=== PATIENT | female | born 1945 | race Caucasian/White ===

== ENCOUNTER → 2017-10-31 07:03 | Outpatient (CLI) | payer MEDICARE, OTHER, SELFPAY ==
[2017-10-31 13:55] LABS: Alanine Aminotransferase 21 U/L (12-78); Alkaline Phosphatase 118 U/L (46-116); Aspartate Amino Transferase 21 U/L (15-37); Bilirubin,Direct 0.1 mg/dL (0.0-0.2); Bilirubin,Total 0.5 mg/dL (0.2-1.0); Chol/HDL Ratio 2.4 (1-3.5); Cholesterol 139 mg/dL (140-200); HDL Cholesterol 58 mg/dL (29-89); LDL Cholesterol 56 mg/dL (0-130); Total Protein,Serum 7.5 gm/dL (6.4-8.2); Triglycerides 127 mg/dL (30-200); VLDL Cholesterol 25 mg/dL (0-40)
== END ==
PROVIDERS: PCP Family Medicine; Visit Provider Internal Medicine Interventional Cardiology
DX: E78.00 Pure hypercholesterolemia, unspecified (principal)
CPT/HCPCS: 36415; 80061; 80076

== ENCOUNTER → 2018-05-06 13:32 | Outpatient (CLI) | payer MEDICARE, OTHER, SELFPAY | PROVIDERS: PCP Family Medicine; Visit Provider Internal Medicine Interventional Cardiology | DX: I10 Essential (primary) hypertension (principal); E78.00 Pure hypercholesterolemia, unspecified | CPT/HCPCS: 93005 ==

== ENCOUNTER → 2018-05-07 07:44 | Outpatient (CLI) | payer MEDICARE, OTHER, SELFPAY ==
[2018-05-07 10:18] LABS: Alanine Aminotransferase 23 U/L (12-78); Albumin Level 3.7 gm/dL (3.4-5.0); Alkaline Phosphatase 109 U/L (46-116); Aspartate Amino Transferase 14 U/L (15-37); Bilirubin,Direct 0.1 mg/dL (0.0-0.2); Bilirubin,Indirect 0.3 mg/dL (0.0-0.9); Bilirubin,Total 0.4 mg/dL (0.2-1.0); Chol/HDL Ratio 2.4 (1-3.5); Cholesterol 136 mg/dL (140-200); HDL Cholesterol 57 mg/dL (29-89); LDL Cholesterol 58 mg/dL (0-130); Total Protein,Serum 7.5 gm/dL (6.4-8.2); Triglycerides 105 mg/dL (30-200); VLDL Cholesterol 21 mg/dL (0-40)
== END ==
PROVIDERS: Visit Provider Internal Medicine Interventional Cardiology
DX: E78.00 Pure hypercholesterolemia, unspecified (principal); I10 Essential (primary) hypertension
CPT/HCPCS: 36415; 80061; 80076

== ENCOUNTER → 2018-06-03 16:00 | Outpatient (CLI) | payer MEDICARE, OTHER, SELFPAY ==
--- NOTE | 2018-06-03 16:08 | XR_ITS ---
XR shoulder RT min 2V HISTORY: ITS.REASON: RT SHOULDER PAIN ORDERING PHYSICIAN: Wyatt Torres MD PATIENT AGE: 72 years Comparison: None FINDINGS: There are mild osteoarthritic changes of the acromioclavicular joint with minimal periarticular calcification superiorly. Mild osteoarthritic changes also involve the glenohumeral joint inferiorly. There is some sclerosis along the lateral margin of the scapula not sufficient. No fracture or dislocation. 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
== END ==
PROVIDERS: PCP Family Medicine; Visit Provider Family Medicine
DX: M25.511 Pain in right shoulder (principal)
CPT/HCPCS: 73030

== ENCOUNTER 2018-06-10 08:56 | Outpatient (RCR) | payer MEDICARE, OTHER, SELFPAY ==
--- NOTE | 2018-06-10 09:53 | HMH.OTOPEV ---
OT Inpatient Evaluation Rehab OT Outpatient Eval Start: 06/10/18 09:36 Freq: Status: Active Protocol: Document 06/10/18 09:37 TFRY (Rec: 06/10/18 09:53 TFRY [id number]) Electronically Signed By Jolene Cho, OT 06/10/18 09:37 Outpatient Therapy Subjective History Subjective History BIMAL IS A 72 YEAR OLD RIGHT HANDED FEMALE REFERRED TO OCCUPATIONAL THERAPY FOR INJURY OF RIGHT SHOULDER. PATIENT REPORTS THAT SHE HAS HAD PAIN IN RIGHT SHOULDER SINCE LIFTING HEAVY OBJECTS APPROXIMATELY 1 MONTH AGO. PMHX: HEART ATTACK WITH 1 STENT PLACED. Chief Complaint Pain Symptom Type Sharp Dull Symptoms Relieved By OTC Meds Prescription Meds Symptoms Aggravated By Physical Activity Prior Functional Limitations None Current Functional Limitations Lifting Housework Dressing Recreation Activity Symptom Description Constant but Variable Level of pain today (0-10) 3 Pain scale - at its best (0-10) 1 Pain scale - at its worst (0-10) 10 Shoulder/Elbow Eval Shoulder Objective Measurements Palpation Tenderness tenderness shoulder exam standard right tenderness over the bicipital tendon right shoulder exam standard Shoulder Palpation Findings Tenderness Shoulder ROM Right Shoulder ROM Limitations Pain Shoulder Abduction Active Range of WFL Motion (degrees) Shoulder Abduction Passive Range of WFL Motion (degrees) Shoulder Flexion Active Range of Motion WFL (degrees) Query Text: Shoulder Flexion Passive Range of Motion WFL (degrees) Shoulder External Rotation Active Range 70 of Motion (degrees) Shoulder External Rotation Passive Range 70 of Motion (degrees) Shoulder Internal Rotation Active Range 5 of Motion (degrees) Shoulder Internal Rotation Passive Range 5 of Motion (degrees) pain with active ROM shoulder exam right standard pain with passive ROM shoulder exam right standard decreased ROM shoulder exam standard right Shoulder MMT Shoulder Abduction Strength Grade 4- Good- Shoulder Extension Strength Grade 3 Fair Shoulder Flexion Strength Grade 4- Good- Shoulder Horizontal Abduction Strength 4- Good- Grade Should
== END 2018-08-05 14:54 | disposition home or self-care (01) ==
LOC: OT 08:56
PROVIDERS: Family Provider Family Medicine; PCP Family Medicine; Visit Provider Family Medicine
DX: S49.91XD Unspecified injury of right shoulder and upper arm, subsequent encounter (principal)
CPT/HCPCS: 97033; 97110; 97165

== ENCOUNTER → 2018-11-13 07:04 | Outpatient (CLI) | payer MEDICARE, OTHER, SELFPAY ==
[2018-11-13 13:49] LABS: Alanine Aminotransferase 28 U/L (12-78); Albumin Level 3.5 gm/dL (3.4-5.0); Alkaline Phosphatase 100 U/L (46-116); Aspartate Amino Transferase 13 U/L (15-37); Bilirubin,Direct 0.1 mg/dL (0.0-0.2); Bilirubin,Indirect 0.3 mg/dL (0.0-0.9); Bilirubin,Total 0.4 mg/dL (0.2-1.0); Chol/HDL Ratio 2.2 (1-3.5); Cholesterol 157 mg/dL (140-200); HDL Cholesterol 73 mg/dL (29-89); LDL Cholesterol 66 mg/dL (0-130); Triglycerides 91 mg/dL (30-200); VLDL Cholesterol 18 mg/dL (0-40)
== END ==
PROVIDERS: PCP Family Medicine; Visit Provider Internal Medicine Interventional Cardiology
DX: E78.00 Pure hypercholesterolemia, unspecified (principal)
CPT/HCPCS: 36415; 80061; 80076

== ENCOUNTER → 2019-08-18 07:01 | Outpatient (CLI) | payer MEDICARE, OTHER, SELFPAY ==
[2019-08-18 14:23] LABS: Alanine Aminotransferase 20 U/L (12-78); Alkaline Phosphatase 64 U/L (46-116); Aspartate Amino Transferase 13 U/L (15-37); Bilirubin,Direct 0.1 mg/dL (0.0-0.2); Bilirubin,Indirect 0.4 mg/dL (0.0-0.9); Bilirubin,Total 0.5 mg/dL (0.2-1.0); Chol/HDL Ratio 1.7 (1-3.5); Cholesterol 163 mg/dL (140-200); HDL Cholesterol 94 mg/dL (29-89); LDL Cholesterol 48 mg/dL (0-130); Triglycerides 105 mg/dL (30-200); VLDL Cholesterol 21 mg/dL (0-40)
== END ==
PROVIDERS: PCP Family Medicine; Visit Provider Internal Medicine Interventional Cardiology
DX: E78.00 Pure hypercholesterolemia, unspecified (principal)
CPT/HCPCS: 36415; 80061; 80076

== ENCOUNTER → 2020-01-29 06:57 | Outpatient (CLI) | payer MEDICARE, OTHER, SELFPAY ==
--- NOTE | 2020-01-29 07:23 | ECG_ITS ---
APPROVED REPORT Exam: Resting ECG HR:73 bpm ECG Measurements Heart Rate 73 AXES IA 218 P 76 QRSd 76 QRS 83 QT 404 T 71 QTc 445 <Conclusion> Sinus rhythm with 1st degree AV block with occasional premature late r wave progression Abnormal ECG Electronically signed by : Vicente Mary, 01/31/2020 06:52:38
[2020-01-29 10:38] LABS: Bilirubin,Unconjugated 0.5 mg/dL (0.0-1.1)
[2020-01-29 10:39] LABS: Alanine Aminotransferase 16 U/L (12-78); Albumin Level 4.3 g/dl (3.5-5.0); Alkaline Phosphatase 59 U/L (38-126); Aspartate Amino Transferase 26 U/L (14-36); Bilirubin,Direct 0.2 mg/dl (0.0-0.4); Bilirubin,Indirect 0.5 mg/dL (0.0-0.9); Bilirubin,Total 0.7 mg/dl (0.2-1.3); Chol/HDL Ratio 1.6 (1-3.5); Cholesterol 163 mg/dl (140-200); HDL Cholesterol 104 mg/dl (40-60); Total Protein,Serum 6.9 g/dl (6.3-8.2); Triglycerides 105 mg/dl (30-150); VLDL Cholesterol 21 mg/dL (0-40)
[2020-01-29 10:50] LABS: Direct LDL Cholesterol 56.57 mg/dL (100-129)
== END ==
PROVIDERS: PCP Family Medicine; Visit Provider Internal Medicine Interventional Cardiology
DX: E78.00 Pure hypercholesterolemia, unspecified (principal); I10 Essential (primary) hypertension
CPT/HCPCS: 36415; 80061; 80076; 93005

== ENCOUNTER → 2020-07-16 07:01 | Outpatient (CLI) | payer MEDICARE, OTHER, SELFPAY ==
[2020-07-16 14:59] LABS: Alanine Aminotransferase 17 U/L (12-78); Albumin Level 4.1 g/dl (3.5-5.0); Alkaline Phosphatase 57 U/L (38-126); Aspartate Amino Transferase 27 U/L (14-36); Bilirubin,Direct 0.1 mg/dl (0.0-0.4); Bilirubin,Indirect 0.3 mg/dL (0.0-0.9); Bilirubin,Total 0.4 mg/dl (0.2-1.3); Bilirubin,Unconjugated 0.4 mg/dL (0.0-1.1); Total Protein,Serum 6.8 g/dl (6.3-8.2); Triglycerides 111 mg/dl (30-150); VLDL Cholesterol 22 mg/dL (0-40)
[2020-07-16 15:08] LABS: HDL Cholesterol 111 mg/dl (40-60)
[2020-07-16 15:10] LABS: Direct LDL Cholesterol 52.69 mg/dL (100-129)
[2020-07-16 19:57] LABS: Chol/HDL Ratio 1.6 (1-3.5); Cholesterol 174 mg/dl (140-200)
== END ==
PROVIDERS: Visit Provider Internal Medicine Interventional Cardiology
DX: E78.00 Pure hypercholesterolemia, unspecified (principal)
CPT/HCPCS: 36415; 80061; 80076

== ENCOUNTER → 2021-01-31 07:01 | Outpatient (CLI) | payer MEDICARE, OTHER, SELFPAY ==
[2021-01-31 14:04] LABS: Alanine Aminotransferase 15 U/L (12-78); Albumin Level 4.4 g/dl (3.5-5.0); Alkaline Phosphatase 61 U/L (38-126); Aspartate Amino Transferase 27 U/L (14-36); Bilirubin,Direct 0.2 mg/dl (0.0-0.4); Bilirubin,Indirect 0.4 mg/dL (0.0-0.9); Bilirubin,Total 0.6 mg/dl (0.2-1.3); Bilirubin,Unconjugated 0.5 mg/dL (0.0-1.1); Chol/HDL Ratio 1.6 (1-3.5); Cholesterol 175 mg/dl (140-200); HDL Cholesterol 109 mg/dl (40-60); Total Protein,Serum 6.8 g/dl (6.3-8.2); Triglycerides 90 mg/dl (30-150); VLDL Cholesterol 18 mg/dL (0-40)
[2021-01-31 14:16] LABS: Direct LDL Cholesterol 41.86 mg/dL (100-129)
== END ==
PROVIDERS: Visit Provider Internal Medicine Interventional Cardiology
DX: E78.00 Pure hypercholesterolemia, unspecified (principal)
CPT/HCPCS: 36415; 80061; 80076

== ENCOUNTER → 2021-08-29 06:58 | Outpatient (CLI) | payer MEDICARE, OTHER, SELFPAY ==
[2021-08-29 14:06] LABS: Alanine Aminotransferase 16 U/L (12-78); Albumin Level 4.2 g/dl (3.5-5.0); Alkaline Phosphatase 62 U/L (38-126); Aspartate Amino Transferase 27 U/L (14-36); Bilirubin,Direct 0.4 mg/dl (0.0-0.4); Bilirubin,Total 0.4 mg/dl (0.2-1.3); Chol/HDL Ratio 1.8 (1-3.5); Cholesterol 189 mg/dl (140-200); HDL Cholesterol 105 mg/dl (40-60); Total Protein,Serum 6.7 g/dl (6.3-8.2); Triglycerides 118 mg/dl (30-150); VLDL Cholesterol 24 mg/dL (0-40)
[2021-08-29 14:17] LABS: Direct LDL Cholesterol 57.74 mg/dL (100-129)
== END ==
PROVIDERS: Visit Provider Internal Medicine Interventional Cardiology
DX: E78.00 Pure hypercholesterolemia, unspecified (principal)
CPT/HCPCS: 36415; 80061; 80076

== ENCOUNTER → 2021-10-16 11:51 | Outpatient (CLI) | payer MEDICARE, OTHER, SELFPAY | PROVIDERS: PCP Family Medicine; Visit Provider Nurse Practitioner Family | DX: Z20.822 Contact with and (suspected) exposure to COVID-19 (principal) | CPT/HCPCS: C9803; U0003; U0005 ==

== ENCOUNTER 2021-11-13 09:56 | Emergency (ER) | payer MEDICARE, OTHER, SELFPAY ==
[2021-11-13 10:47] VITALS: BP 130/59; PULSE 72; RESP 16; TEMP 36.7; O2SAT 95; BMI 25.7
[2021-11-13 10:52] VITALS: BP 130/60; PULSE 84; RESP 16; TEMP 36.7; O2SAT 98
--- NOTE | 2021-11-13 10:53 | HMH.EDUTC ---
[facility] [place] Clinical Impression: Encounter for laboratory testing for COVID-19 virus Disposition: Home, Self-Care Condition on Discharge: Good Instructions: DI for COVID-19 (Suspected or Confirmed ), Preventing the Spread of Coronavirus Discharge Instructions Additional Instructions: *Monitor Temp, Over the counter Motrin or Tylenol as directed/as needed Tylenol every 4 hours and Motrin every 6 hours (as long as your family doctor has told you that you can take it) for fever or pain. and straight to ER if unable to lower temp less than 101.0 after medication given *Warm salt water gargles may help to soothe the throat *Throat Lozenges *Warm fluids like tea with honey may help to soothe the throat *Sleep elevated *Humidifier/Vaporizer Follow up IMMEDIATELY for new or worsening symptoms or no Noticeable improvement over the next 48-72 hours. 911 for difficulty breathing or swallowing You were tested for today for COVID19 your test result should be back in the next 24-48 hours, you may check your results on the [facility] [employer] [facility] Portal if you have trouble logging on you may call [employer] support for assistance You was given a handout with instructions for Self Quarantine and Self isolation for while you wait on test results and what to do if they are positive If you are positive the Health Dept will be contacting you also Make sure to take your Vitamins Vit. C Vit D and Zinc if you can take them Referrals: Wyatt Torres MD [Primary Care Provider] - As needed Medical Decision Making - Michael Inquiry Pt receiving controlled substance: No Michael was queried for this patient: No Vital Signs: 11/13/21 10:47 Temperature 98.0 F Temperature Source Oral Pulse Rate [Right] 72 Respiratory Rate 16 Blood Pressure [Right Arm] 130/59 L Blood Pressure Mean [Right Arm] 82 Blood Pressure Source [Right Arm] Automatic Cuff Blood Pressure Position [Right Arm] Sitting 02 Sat by Pulse Oximetry 95 Oxygen Delivery Method Room Air Orders (Tests/Meds): ORDERS Category Date Time Status Covid-19 Nasal PCR ([facility]) Routine Lab 11/13/21 10:50 Ordered [facility] [place] - General Stated complaint: covid test Time Seen by Provider: 11/13/21 10:53 Mode of Arrival: Ambulatory Source of Information: Patient Limitations: No Limitations Description of Symptoms (Recalled from Triage Doc. by RN): Exposed to covid on Sunday, requesting test, no symptoms HEENT Symptoms (Recalled from RN notes): No Resp Symptoms (Recalled from RN notes): No Skin Symptoms (Recalled from RN notes): No MS Symptoms (Recalled from RN notes): No Functional Status (Recalled from RN notes): na - History of Present Illness Provider Complaint: Patient state that she was exposed to COVID earlier this week and she wanted to get tested to be safe Denies symptoms - Related Data Home Medications Medication Instructions Recorded Confirmed Aspirin [Aspirin 81mg EC Tab] 81 mg PO DAILY 04/24/18 10/26/18 Ezetimibe [Zetia] 10 mg PO DAILY 04/24/18 10/26/18 Levothyroxine Sodium 112 mcg PO DAILY 04/24/18 10/26/18 [Levothyroxine 112mcg (0.112mg) Tab] Losartan/Hydrochlorothiazide 1 each PO DAILY 04/24/18 10/26/18 [Losartan-Hctz 100-12.5 mg Tab] Simvastatin 20 mg PO DAILY 04/24/18 10/26/18 Ticagrelor [Brilinta 60mg Tab] 60 mg PO DAILY 04/24/18 10/26/18 carvediloL [Carvedilol 12.5mg Tab] 12.5 mg PO BID 04/24/18 10/26/18 Previous Rx's Medication Instructions Recorded Ondansetron [Zofran 4mg ODT] 4 mg PO QIDP PRN #20 tab.rapdis 04/26/18 hydrOXYzine pamoate [Vistaril 25mg 25 mg PO Q8H PRN #21 cap 10/26/18 capsule] methylPREDNISolone [Medrol] 4 mg PO DIRECTED #1 tab.ds.pk 10/26/18 raNITIdine HCl [Zantac] 150 mg PO Q12 #14 tab 10/26/18 Allergies Allergy/AdvReac Type Severity Reaction Status Date / Time azithromycin [AZITHROMYCIN] Allergy Unknown Verified 04/24/18 05:18 clavulanic acid Allergy Unknown Verified 04/24/18 05:18 [From AUGMENTI
== END 2021-11-13 10:55 | disposition home or self-care (01) ==
PROVIDERS: Emergency Provider Nurse Practitioner; PCP Family Medicine
DX: Z20.822 Contact with and (suspected) exposure to COVID-19 (principal); E03.9 Hypothyroidism, unspecified; E78.5 Hyperlipidemia, unspecified; Z88.2 Allergy status to sulfonamides; Z88.1 Allergy status to other antibiotic agents; Z79.899 Other long term (current) drug therapy
CPT/HCPCS: G0463; 99202; C9803; U0003; U0005

== ENCOUNTER → 2022-05-02 07:02 | Outpatient (CLI) | payer MEDICARE, OTHER, SELFPAY ==
[2022-05-02 14:35] LABS: Alanine Aminotransferase 20 U/L (12-78); Alkaline Phosphatase 62 U/L (38-126); Aspartate Amino Transferase 28 U/L (14-36); Bilirubin,Indirect 0.3 mg/dL (0.0-0.9); Bilirubin,Total 0.3 mg/dl (0.2-1.3); Bilirubin,Unconjugated 0.6 mg/dL (0.0-1.1); Chol/HDL Ratio 1.9 (1-3.5); Cholesterol 185 mg/dl (140-200); HDL Cholesterol 99 mg/dl (40-60); Total Protein,Serum 6.4 g/dl (6.3-8.2); Triglycerides 118 mg/dl (30-150); VLDL Cholesterol 24 mg/dL (0-40)
[2022-05-02 14:46] LABS: Direct LDL Cholesterol 55.45 mg/dL (100-129)
== END ==
PROVIDERS: Visit Provider Internal Medicine Interventional Cardiology
DX: E78.00 Pure hypercholesterolemia, unspecified (principal)
CPT/HCPCS: 36415; 80061; 80076

== ENCOUNTER → 2022-05-09 15:03 | Outpatient (CLI) | payer MEDICARE, OTHER, SELFPAY ==
--- NOTE | 2022-05-09 15:08 | XR_ITS ---
FINAL REPORT CLINICAL HISTORY: Pain in right foot, LATERAL FOOT PAIN FINDINGS: RIGHT FOOT Three views of the right foot demonstrate a transverse nondisplaced fracture of the proximal 5th metatarsal. There is a questionable nondisplaced fracture of the proximal 4th metatarsal. There is moderate and severe degenerative change, worse involving the 1st MTP joint. There are hammertoes of 2nd 3rd and 4th digits. There is a plantar calcaneal spur. The soft tissues are unremarkable. IMPRESSION: 5th metatarsal fracture with a questionable 4th metatarsal fracture as described. Reviewed, Interpreted and Dictated by Byron Bishop III, MD Transcribed by Yue Gallo Authenticated and . [facility]
== END ==
PROVIDERS: PCP Family Medicine; Visit Provider Family Medicine
DX: M79.671 Pain in right foot (principal)
CPT/HCPCS: 73630

== ENCOUNTER → 2022-06-15 09:01 | Outpatient (CLI) | payer MEDICARE, OTHER, SELFPAY ==
--- NOTE | 2022-06-15 09:06 | XR_ITS ---
FINAL REPORT CLINICAL HISTORY: fracture evaluation COMPARISON: 05/09/2022. FINDINGS: AP, lateral and oblique views of the right foot were obtained and compared to prior exam. Again seen is a fracture at the base of the 5th metatarsal with only minimal interval healing. No additional fracture is identified. There is stable, multi joint degenerative disease. Hammertoe deformity is seen of the 2nd and 3rd toes. Soft tissues are without acute abnormality. IMPRESSION: Fracture of the base of the 5th metatarsal with only minimal interval healing. Reviewed, Interpreted and Dictated by Iwona Alvarenga MD Transcribed by Jazmin Escudero Authenticated and [facility]
== END ==
PROVIDERS: PCP Family Medicine; Visit Provider Podiatrist
DX: S92.901A Unspecified fracture of right foot, initial encounter for closed fracture (principal)
CPT/HCPCS: 73630

== ENCOUNTER 2022-06-19 09:00 | Outpatient (RCR) | payer MEDICARE, OTHER, SELFPAY ==
--- NOTE | 2022-06-13 10:36 | HMH.PTOPEV ---
PT Outpatient Evaluation Rehab PT Outpatient Evaluation Start: 06/13/22 08:59 Freq: Status: Active Protocol: Document 06/13/22 08:59 [id number] (Rec: 06/13/22 10:35 [id number] [id number]) Electronically Signed By Edward Garcia, PT 06/13/22 08:59 Outpatient Therapy Subjective History Subjective History Pt. is a 76 year old female who presents to [facility] Out[facility] in [place] for the initial evaluation this date( 06/13/22) w/ c's/o acute and constant R-sided cervical/ shldr. P!, stiffness, and ROM deficits of insidious onset 2 weeks ago. Pt. blames onset of current complaint d/t stress . Pt. reports dealing w/ a similar exacerbation 9 years ago when she had quit smoking, and blamed symptoms from stress at that time too. Pt. reports having a terrible weekend, but states this morning is the first time she woke up w/ improved intensity in symptoms. Pt. reports having some improvements in symptoms since taking her prescribed muscle relaxer, doing her exercises, and using her TENS and MHP ever since she saw Dr. Garcia. Pt. denies having numbness/ tingling into the RUE, denies having symptoms on the L-side. Pt. denies having any diagnostic imaging nor injections for current complaint. Pt. denies history of cancer(self), however, reports family history of breast cancer(mother). Pt. denies history of pacemaker, denies latex/adhesive tape allergy, denies diabetes, but reports medicational allergies to sulfa drugs and most anti-biotics. Current medications include Flexiril, Losartan, Zyrtec, Carvedilol,
== END 2022-08-07 09:14 | disposition home or self-care (01) ==
LOC: PT.CARL 09:00
PROVIDERS: PCP Family Medicine; Visit Provider Family Medicine
DX: M62.838 Other muscle spasm (principal); M54.2 Cervicalgia
CPT/HCPCS: 97010; 97014; 97110; 97163; G0283

== ENCOUNTER 2022-06-30 13:31 | Emergency (ER) | payer MEDICARE, OTHER, SELFPAY ==
[2022-06-30 14:30] VITALS: BP 157/87; PULSE 80; RESP 16; TEMP 37; O2SAT 97; BMI 24.2
--- NOTE | 2022-06-30 14:53 | EXP.UTC ---
Discharge Plan Disposition Patient Disposition: Home, Self-Care Condition: Good Prescriptions Prescriptions: New cefdinir 300 mg capsule 300 mg PO BID 20 Days Qty: 20 0RF No Action prednisone 5 mg tablet 5 mg PO hydroxychloroquine 200 mg tablet 200 mg PO cholecalciferol (vitamin D3) 1,250 mcg (50,000 unit) capsule 1,250 mcg PO WEEKLY Label Comments: TAKE 1 CAPSULE BY MOUTH ONCE A WEEK FOR 12 WEEKS losartan 100 mg tablet 100 mg PO DAILY Label Comments: TAKE 1 TABLET BY MOUTH ONCE DAILY hydrochlorothiazide 12.5 mg tablet 12.5 mg PO DAILY Label Comments: TAKE 1 TABLET BY MOUTH ONCE DAILY carvedilol 12.5 MG tablet 12.5 mg PO BID aspirin 81 MG tablet,delayed release (DR/EC) 81 mg PO DAILY simvastatin 20 MG tablet 20 mg PO DAILY levothyroxine 112 MCG tablet 112 mcg PO DAILY ezetimibe 10 MG tablet 10 mg PO DAILY ticagrelor 60 mg tablet 60 mg PO DAILY ranitidine HCl 150 MG tablet 150 mg PO Q12 Qty: 14 0RF hydroxyzine pamoate 25 MG capsule 25 mg PO Q8H PRN (Reason: Itching) Qty: 21 0RF Referrals Follow up/Referrals: Wyatt Torres MD [Primary Care Provider] - See instructions Activity Restrictions/Add. Instructions Additional Instructions/Restrictions: You have been tested for COVID19. Please isolate yourself as if you are positive until test results received. Current CDC guidelines are quarantine X 5 days from onset of symptoms, with an additional 5 days of mask wearing at all times. If you have difficulty breathing, signs of dehydration, etc please seek treatment at ER. Clinical Impressions Clinical Impression: Sinusitis Instructions Patient Instructions: DI for Sinusitis Discharge ED Provider: Janis Mendez [facility] [place] HPI General Stated complaint: Covid exposure, covid test Mode of Arrival: Ambulatory Source of Information: Patient Limitations: No Limitations Time Seen by Provider: 06/30/22 14:56 Description of Symptoms (Recalled from Triage Doc. by RN): pt here for covid test. exposed on sunday and sunday. symptoms include face hurting, sneezing, cough and began this am. HEENT Symptoms (Recalled from RN notes): Yes Resp Symptoms (Recalled from RN notes): Yes Skin Symptoms (Recalled from RN notes): No MS Symptoms (Recalled from RN notes): No Functional Status (Recalled from RN notes): n/a History of Present Illness Provider Complaint: Patient has had cough, sneezing, sinus pain and pressure X 2 days. History of allergies, frequent sinusitis but possibly exposed to COVID19 and would like to rule it out for sure. Onset (ago): day(s) (2) Relieving factors: none Exacerbating factors: none Associated symptoms: denies other symptoms Treatments prior to arrival: none Related Data Home Medications Medication Instructions Recorded Confirmed aspirin 81 mg tablet,delayed 81 mg PO DAILY heart health 04/24/18 06/15/22 release carvedilol 12.5 mg tablet 12.5 mg PO BID bp 04/24/18 06/15/22 ezetimibe 10 mg tablet 10 mg PO DAILY Cholesterol 04/24/18 06/15/22 levothyroxine 112 mcg tablet 112 mcg PO DAILY thyroid 04/24/18 06/15/22 simvastatin 20 mg tablet 20 mg PO DAILY Cholesterol 04/24/18 06/15/22 hydroxychloroquine 200 mg tablet 200 mg PO 05/11/22 06/15/22 prednisone 5 mg tablet 5 mg PO 05/11/22 06/15/22 ticagrelor 60 mg tablet 60 mg PO DAILY heart helath 05/11/22 06/15/22 cholecalciferol (vitamin D3) 1,250 1,250 mcg PO WEEKLY 06/15/22 06/15/22 mcg (50,000 unit) capsule hydrochlorothiazide 12.5 mg tablet 12.5 mg PO DAILY 06/15/22 06/15/22 losartan 100 mg tablet 100 mg PO DAILY 06/15/22 06/15/22 Previous Rx's Medication Instructions Recorded hydroxyzine pamoate 25 mg capsule 25 mg PO Q8H PRN Itching #21 caps 10/26/18 ranitidine HCl 150 mg tablet 150 mg PO Q12 #14 tabs 10/26/18 cefdinir 300 mg capsule 300 mg PO BID 20 days #20 caps 06/30/22 Allergies Allergy/AdvReac Type
[2022-06-30 15:25] VITALS: BP 157/87; PULSE 80; RESP 16; TEMP 37
== END 2022-06-30 15:26 | disposition home or self-care (01) ==
PROVIDERS: Emergency Provider Physician Assistant; PCP Family Medicine
DX: U07.1 COVID-19 (principal); J32.9 Chronic sinusitis, unspecified; Z86.16 Personal history of COVID-19; I10 Essential (primary) hypertension; I25.2 Old myocardial infarction; E78.5 Hyperlipidemia, unspecified; E89.0 Postprocedural hypothyroidism; M35.3 Polymyalgia rheumatica; Z79.1 Long term (current) use of non-steroidal anti-inflammatories (NSAID); Z79.52 Long term (current) use of systemic steroids; Z79.82 Long term (current) use of aspirin; Z79.899 Other long term (current) drug therapy; Z88.1 Allergy status to other antibiotic agents; Z88.2 Allergy status to sulfonamides; Z88.3 Allergy status to other anti-infective agents; Z88.5 Allergy status to narcotic agent; Z88.8 Allergy status to other drugs, medicaments and biological substances; Z87.891 Personal history of nicotine dependence; Z82.49 Family history of ischemic heart disease and other diseases of the circulatory system; Z80.9 Family history of malignant neoplasm, unspecified
CPT/HCPCS: 99213; C9803; G0463; U0003; U0005

== ENCOUNTER 2022-07-01 08:17 | Emergency (ER) | payer MEDICARE, OTHER, SELFPAY ==
[2022-07-01 08:25] VITALS: BP 131/71; PULSE 94; RESP 18; TEMP 37.9; O2SAT 95; BMI 22.7
[2022-07-01 08:27] VITALS: BMI 22.7
--- NOTE | 2022-07-01 08:41 | HMH.EDGENADL ---
Discharge Plan Disposition Patient Disposition: Home, Self-Care Condition: Fair Prescriptions Prescriptions: New acetaminophen 500 mg capsule 500 mg PO Q6H PRN (Reason: pain) Qty: 20 0RF No Action hydroxychloroquine 200 mg tablet 200 mg PO DAILY losartan 100 mg tablet 100 mg PO DAILY Label Comments: TAKE 1 TABLET BY MOUTH ONCE DAILY hydrochlorothiazide 12.5 mg tablet 12.5 mg PO DAILY Label Comments: TAKE 1 TABLET BY MOUTH ONCE DAILY carvedilol 12.5 MG tablet 12.5 mg PO BID aspirin 81 MG tablet,delayed release (DR/EC) 81 mg PO DAILY simvastatin 20 MG tablet 20 mg PO DAILY levothyroxine 112 MCG tablet 112 mcg PO DAILY ezetimibe 10 MG tablet 10 mg PO DAILY ticagrelor 60 mg tablet 60 mg PO DAILY hydroxyzine pamoate 25 MG capsule 25 mg PO Q8H PRN (Reason: Itching) Qty: 21 0RF potassium chloride 20 mEq tablet extended release 10 meq PO DAILY Referrals Follow up/Referrals: Wyatt Torres MD [Primary Care Provider] - See instructions Activity Restrictions/Add. Instructions Additional Instructions/Restrictions: You have been evaluated for weakness, diagnosed with COVID-19 and low potassium. Please take daily potassium replacement. Take tylenol for aches and fever. Follow up with your primary care doctor for symptom recheck. Return for any new or worsening symptoms. Clinical Impressions Clinical Impression: COVID-19, Hypokalemia Instructions Patient Instructions: DI for Hypokalemia, How to Care for Someone with COVID-19 Discharge ED Provider: Elda Kc Adult HPI General Chief complaint: Weakness Stated complaint: fever, weakness, diarrhea Time Seen by Provider: 07/01/22 08:20 Mode of Arrival: Ambulatory Source of Information: Patient Limitations: No Limitations Description of Symptoms (Recalled from ER Triage Doc. by RN): pt states she was exposed to someone with covid on , reports weakness, diarrhea, and sinus pressure this morning, states pt felt feverish last night History of Present Illness HPI narrative: 76-year-old female presenting to the emergency department with generalized weakness, diarrhea. Symptoms started yesterday. Throughout the day she felt somewhat unwell, body aches. [place] like she was flushing and had chills. checked her temperature and she did not have a fever. She had loose stools last night. No blood or mucus. This morning, felt worse. Feels generally weak, achy, fatigued. She was exposed to COVID-19 last week. She has received vaccinations. She denies headache, neck pain, cough, shortness of breath, abdominal pain, nausea, vomiting, rashes on her skin. No medications prior to arrival Related Data Home Medications Medication Instructions Recorded Confirmed aspirin 81 mg tablet,delayed 81 mg PO DAILY heart health 04/24/18 07/01/22 release carvedilol 12.5 mg tablet 12.5 mg PO BID bp 04/24/18 07/01/22 ezetimibe 10 mg tablet 10 mg PO DAILY Cholesterol 04/24/18 07/01/22 levothyroxine 112 mcg tablet 112 mcg PO DAILY thyroid 04/24/18 07/01/22 simvastatin 20 mg tablet 20 mg PO DAILY Cholesterol 04/24/18 07/01/22 hydroxychloroquine 200 mg tablet 200 mg PO DAILY gout 05/11/22 07/01/22 ticagrelor 60 mg tablet 60 mg PO DAILY heart helath 05/11/22 07/01/22 hydrochlorothiazide 12.5 mg tablet 12.5 mg PO DAILY fluid overload 06/15/22 07/01/22 losartan 100 mg tablet 100 mg PO DAILY blood pressure 06/15/22 07/01/22 potassium chloride 20 mEq 10 meq PO DAILY supllement 07/01/22 07/01/22 tablet,extended release Previous Rx's Medication Instructions Recorded hydroxyzine pamoate 25 mg capsule 25 mg PO Q8H PRN Itching #21 caps 10/26/18 acetaminophen 500 mg capsule 500 mg PO Q6H PRN pain #20 caps 07/01/22 Allergies Allergy/AdvReac Type Severity Reaction Status Date / Time azithromycin [AZITHROMYCIN] Allergy Unknown Verified 06/30/22 14:33 clavulanic
[2022-07-01 09:00] VITALS: BP 143/81; PULSE 86; O2SAT 94
--- NOTE | 2022-07-01 09:02 | ECG_ITS ---
APPROVED REPORT Exam: Resting ECG HR:94 bpm ECG Measurements Heart Rate 94 AXES NV 194 P 52 QRSd 88 QRS 29 QT 366 T 58 QTc 417 Conclusion SINUS RHYTHM WITH FREQUENT SUPRAVENTRICULAR PREMATURE COMPLEXES Old anteroseptal changes ABNORMAL ECG UNCONFIRMED REPORT Electronically signed by : Vicente Mary MD 07/02/2022 15:25:14
[2022-07-01 09:13] LABS: Basophils # 0.2 K/mm3 (0-0.2); Basophils % 1.1 % (0.1-2.0); Eosinophils # 0.1 K/mm3 (0.0-0.4); Eosinophils % 0.8 % (0.1-12.0); Hematocrit 47.1 % (37.0-47.0); Hemoglobin 15.9 g/dL (12.2-16.2); Lymphocytes # 0.7 K/mm3 (0.7-4.5); Lymphocytes % 4.4 % (10-50); Mean Corpuscular HGB Conc 33.7 g/dL (31.8-35.4); Mean Corpuscular Hemoglobin 34.5 pg (27.0-31.2); Mean Corpuscular Volume 102.3 fl (81-99); Mean Platelet Volume 8.1 fl (7.4-10.4); Monocytes # 0.7 K/mm3 (0.1-1.0); Monocytes % 5.1 % (1.7-9.3); Neutrophils % 88.7 % (37.0-80.0); Platelet Count 268 K/mm3 (142-424); Red Cell Distribution Width 12.6 % (11.5-17.5); White Blood Count 14.7 K/mm3 (4.8-10.8)
[2022-07-01 09:15] LABS: MANUAL DIFFERENTIAL MANUAL DIFFERENTIAL (MANUAL DIFF)
[2022-07-01 09:20] LABS: Alanine Aminotransferase 25 U/L (12-78); Albumin Level 4.6 g/dl (3.5-5.0); Albumin/Globulin Ratio 1.5 (1.1-1.8); Alkaline Phosphatase 85 U/L (38-126); Anion Gap 13.7 mEq/L (5-15); Aspartate Amino Transferase 40 U/L (14-36); Bilirubin,Total 0.5 mg/dl (0.2-1.3); Blood Urea Nitrogen 15 mg/dl (7-17); Calcium 8.9 mg/dl (8.4-10.2); Carbon Dioxide 26 mmol/L (22.0-30.0); Chloride 89 mmol/L (98-107); Creatinine Clearance Estimated 46 mL/min (50-200); Estimated Glomerular Filt Rate 48 ml/min (>60); GFR (African American) 59 ML/MIN (>60); Globulin 3.1 g/dL (1.3-3.2); Glucose 107 mg/dl (74-100); Sodium 126 mmol/L (136-145); Total Protein,Serum 7.7 g/dl (6.3-8.2)
[2022-07-01 09:22] LABS: Potassium 2.7 mmoL/L (3.5-5.1)
--- NOTE | 2022-07-01 09:22 | PC.NURSE ---
lab called with critical potassium of 2.7 dr dunlap aware
[2022-07-01 09:30] VITALS: BP 113/67; PULSE 91; O2SAT 93
[2022-07-01 09:56] LABS: Lymphocytes % 9 % (10-50); Macrocytosis 1+; Monocytes % 2 % (2-9); Neutrophils % 88 % (42-76); Platelet Estimate Normal; Total Cells Counted 100
[2022-07-01 10:00] VITALS: BP 108/65; PULSE 89; O2SAT 95
[2022-07-01 10:30] VITALS: BP 96/52; PULSE 98; O2SAT 94
--- NOTE | 2022-07-01 10:38 | PC.NURSE ---
Pt resting in bed with at bedside. No needs voiced at this time. Updated pt and .
[2022-07-01 11:05] VITALS: BP 93/56; PULSE 87; RESP 16; TEMP 36.9; O2SAT 94
== END 2022-07-01 11:10 | disposition home or self-care (01) ==
PROVIDERS: Emergency Provider Emergency Medicine; PCP Family Medicine
DX: U07.1 COVID-19 (principal); E87.6 Hypokalemia; E87.1 Hypo-osmolality and hyponatremia; I25.10 Atherosclerotic heart disease of native coronary artery without angina pectoris; I10 Essential (primary) hypertension
CPT/HCPCS: 80053; 85007; 85025; 93005

== ENCOUNTER 2022-07-01 18:38 | Observation (INO) | payer MEDICARE, OTHER, SELFPAY ==
--- NOTE | 2022-07-01 18:50 | XR_ITS ---
PROCEDURE INFORMATION: Exam: XR Chest Exam date and time: 07/01/2022 7:10 PM Age: 76 years old Clinical indication: Cough and other: Covid positive; Additional info: Cough, covid TECHNIQUE: Imaging protocol: Radiologic exam of the chest. Views: 1 view. COMPARISON: CR CXR2V XR chest 2V 10/26/2018 9:08 AM FINDINGS: Lungs: Hyperlucent changes are demonstrated. Increase in the lung volumes is demonstrated. Pleural spaces: Unremarkable. No pleural effusion. No pneumothorax. Heart/Mediastinum: Unremarkable. No cardiomegaly. Focal somewhat linear region of increased density superimposed upon the left heart border. Findings may correspond to regions of calcification. Diaphragm: There is flattening of the hemidiaphragms. Bones/joints: Unremarkable. IMPRESSION: Findings compatible with chronic obstructive pulmonary disease.
[2022-07-01 18:53] VITALS: BP 139/84; PULSE 87; RESP 16; TEMP 36.8; O2SAT 98; BMI 24.2
--- NOTE | 2022-07-01 18:53 | HMH.EDGENADL ---
Discharge Plan Disposition Patient Disposition: Admitted as Observation Condition: Fair Clinical Impressions Clinical Impression: COVID-19 Discharge ED Provider: Elda Kc Adult HPI General Chief complaint: Nausea/Vomiting/Diarrhea Stated complaint: covid+,fever,diarrhea,weakness Time Seen by Provider: 07/01/22 18:53 Mode of Arrival: Wheelchair Source of Information: Patient Limitations: No Limitations History of Present Illness HPI narrative: 76-year-old female presenting to the emergency department with nausea, vomiting, diarrhea, generalized malaise. She was diagnosed with COVID-19 earlier today. Went home with prescription for Zofran. When she got home started to feel much worse. She has been unable to keep down any food or liquid. She has multiple episodes of loose stooles, brownish diarrhea. Now feels too weak to stand or walk on her own. No chest pain. No cough or shortness of breath. No abdominal pain, dysuria Related Data Home Medications Medication Instructions Recorded Confirmed aspirin 81 mg tablet,delayed 81 mg PO DAILY heart health 04/24/18 07/01/22 release carvedilol 12.5 mg tablet 12.5 mg PO BID bp 04/24/18 07/01/22 ezetimibe 10 mg tablet 10 mg PO DAILY Cholesterol 04/24/18 07/01/22 levothyroxine 112 mcg tablet 112 mcg PO DAILY thyroid 04/24/18 07/01/22 simvastatin 20 mg tablet 20 mg PO DAILY Cholesterol 04/24/18 07/01/22 hydroxychloroquine 200 mg tablet 200 mg PO DAILY gout 05/11/22 07/01/22 ticagrelor 60 mg tablet 60 mg PO DAILY heart helath 05/11/22 07/01/22 hydrochlorothiazide 12.5 mg tablet 12.5 mg PO DAILY fluid overload 06/15/22 07/01/22 losartan 100 mg tablet 100 mg PO DAILY blood pressure 06/15/22 07/01/22 potassium chloride 20 mEq 10 meq PO DAILY supllement 07/01/22 07/01/22 tablet,extended release Previous Rx's Medication Instructions Recorded hydroxyzine pamoate 25 mg capsule 25 mg PO Q8H PRN Itching #21 caps 10/26/18 acetaminophen 500 mg capsule 500 mg PO Q6H PRN pain #20 caps 07/01/22 Allergies Allergy/AdvReac Type Severity Reaction Status Date / Time azithromycin [AZITHROMYCIN] Allergy Unknown Verified 06/30/22 14:33 clavulanic acid Allergy Unknown Verified 06/30/22 14:33 [From AUGMENTIN] codeine [CODEINE] Allergy Unknown Verified 06/30/22 14:33 [id number] Reductase Allergy Unknown Verified 06/30/22 14:33 Inhibitor [[id number] REDUCTASE INHIBITOR] Sulfa (Sulfonamide Allergy Unknown Verified 06/30/22 14:33 Antibiotics) [SULFA (SULFONAMIDE ANTIBIOTICS)] decongestants Allergy Uncoded 06/15/22 09:42 PFSH PFSH Medical History (Updated 07/01/22 @ 19:39 by Elda Kc DO) HLD (hyperlipidemia) Myocardial infarction Surgical History (Updated 06/15/22 @ 09:48 by Susannah Hammond CMA) History of hysterectomy History of tonsillectomy Family History (Updated 06/15/22 @ 09:48 by Susannah Hammond CMA) Other Cancer Heart attack Hypertension Social History Smoking Status: Never smoker alcohol intake: current current occupational status: retired Travel in the last 8 weeks: None ROS Obtained: Yes All systems reviewed & no additional complaints except as documented Constitutional Constitutional: Reports anorexia, Reports body ache, Reports chills, Reports fatigue, Reports fever(s) and Reports malaise ENT Ears, Nose, Mouth, and Throat: Denies dizziness, Denies throat swelling and Denies vertigo Cardiovascular Cardiovascular: Denies chest pain, Denies dyspnea and Denies palpitations Respiratory Respiratory: Denies cough and Denies dyspnea Gastrointestinal Gastrointestingal: Reports diarrhea, nausea and vomiting; Denies abdominal pain Genitourinary Female Genitourinary: Denies dysuria and Denies flank pain Musculoskeletal Musculoskeletal: Denies muscle cramps, Reports muscle weakness, Reports myalgias and Denies numbness Neurolog
--- NOTE | 2022-07-01 18:58 | PC.NURSE ---
RAD at BS
--- NOTE | 2022-07-01 19:01 | PC.NURSE ---
IV WOULD NOT DRAW FOR BLOOD , DR WALDEN AWARE WE ARE GONNA HOLD OFF CAUSE PT HAS ALREADY HAD ALL THE LABS TODAY DURING PREVIOUS VISIT
--- NOTE | 2022-07-01 19:35 | PC.NURSE ---
Dr. Melissa winn
--- NOTE | 2022-07-01 19:40 | PC.NURSE ---
speaking with Dr. Torres
--- NOTE | 2022-07-01 19:42 | PC.NURSE ---
supervisor knitting notified of pt admission and need for bed assignment
[2022-07-01 20:30] VITALS: BP 145/70; PULSE 87; RESP 16; TEMP 37.1; O2SAT 95
--- NOTE | 2022-07-01 20:31 | PC.NURSE ---
ATTEMPT TO CALL REPORT TO AGATHA SNIDER IN PT ROOM AND WILL CALL BACK. PT AWARE OF PLAN TO ADMIT. PT AWARE OF NEED FOR URINE SAMPLE.
[2022-07-01 20:35] VITALS: BP 145/70; PULSE 77; RESP 17; TEMP 37.1; O2SAT 99
--- NOTE | 2022-07-01 20:42 | PC.NURSE ---
Pt up to bathroom with assistance and use of wheelchair
[2022-07-01 20:47] VITALS: BP 146/73; PULSE 75; RESP 18; TEMP 37.2; O2SAT 96; BMI 24.0
--- NOTE | 2022-07-01 20:47 | PC.NURSE ---
P5T ARRIVED TO FLOOR VIA W/C @ 2044
[2022-07-01 21:00] VITALS: O2SAT 96
[2022-07-02] VITALS (7 sets, daily range): BP systolic 114–151; BP diastolic 58–76; PULSE 71–79; RESP 16–18; TEMP 36.6–37.1; O2SAT 94–98; BMI 21.5
--- NOTE | 2022-07-02 04:12 | PC.NURSE ---
pt up to bathroom numerous times with diarrhea, pt complains of nausea, no vomiting noted, pt is alert and oriented x4, VSS, 02 sats 94% on room air, pt denies soa, lungs cta, no other issues noted at this time, pt medicated with tylenol for complaints of chronic back pain
[2022-07-02 08:36] LABS: Anion Gap 9.7 mEq/L (5-15); Blood Urea Nitrogen 25 mg/dl (7-17); Calcium 7.9 mg/dl (8.4-10.2); Carbon Dioxide 23 mmol/L (22.0-30.0); Chloride 100 mmol/L (98-107); Creatinine Clearance Estimated 36 mL/min (50-200); Estimated Glomerular Filt Rate 40 ml/min (>60); GFR (African American) 48 ML/MIN (>60); Glucose 96 mg/dl (74-100); Sodium 130 mmol/L (136-145)
[2022-07-02 08:37] LABS: Potassium 2.7 mmoL/L (3.5-5.1)
--- NOTE | 2022-07-02 08:37 | EXP.PHA.VTE ---
[facility] Pharmacy VTE Monitoring Patient Demographics Admission date: 07/01/22 Report Date: 07/02/22 Time: 08:37 Patient Allergies azithromycin [AZITHROMYCIN] Allergy (Unknown, Verified 06/30/22 14:33) clavulanic acid [From AUGMENTIN] Allergy (Unknown, Verified 06/30/22 14:33) codeine [CODEINE] Allergy (Unknown, Verified 06/30/22 14:33) [id number] Reductase Inhibitor [[id number] REDUCTASE INHIBITOR] Allergy (Unknown, Verified 06/30/22 14:33) Sulfa (Sulfonamide Antibiotics) [SULFA (SULFONAMIDE ANTIBIOTICS)] Allergy (Unknown, Verified 06/30/22 14:33) decongestants Allergy (Uncoded 06/15/22 09:42) Height: 1.68 m Weight: 60.895 kg Current Active Problems (Updated 07/01/22 @ 22:58 by Kristi Bonilla RN) COVID-19 (Acute) VTE Risk Was VTE Risk Assessment Performed: Yes VTE Score: 3 VTE Risk Level: Low Risk Prophylaxis VTE Prophylaxis Ordered?: Yes Types of VTE Prophylaxis: TEDS Knee High Location of Applied Device: Bilateral Lower Extremeties
--- NOTE | 2022-07-02 09:23 | PC.NURSE ---
pt had 2 unmeasured voids
--- NOTE | 2022-07-02 10:26 | PC.NURSE ---
pt had 1 unmeasured void
--- NOTE | 2022-07-02 11:06 | PC.NURSE ---
meds taken to pharmacy to be packaged
--- NOTE | 2022-07-02 11:18 | HMH.PHAINT1 ---
Pharmacy Intervention Comments: MEDICATION RECONCILIATION COMPLETED ON PATIENT USING EXTERNAL FILL HISTORY FROM PHARMACY AND PATIENT'S OWN MEDS. -SHAMIR ESPINALD
[2022-07-02 11:50] LABS: Adenovirus F 40/41, stool Not Detected (NotDetected); Astrovirus Not Detected (NotDetected); Campylobacter Not Detected (NotDetected); Clostridium Difficile A/B, PCR Not Detected (NotDetected); Cryptosporidium Not Detected (NotDetected); Cyclospora Cayetanesis Not Detected (NotDetected); Entamoeba histolytica Not Detected (NotDetected); Enteroaggregative E coli Not Detected (NotDetected); Enteropathogenic E coli Not Detected (NotDetected); Enterotoxigenic E coli Not Detected (NotDetected); Giardia lamblia Not Detected (NotDetected); Norovirus Not Detected (NotDetected); Plesimonas Shigalloides, PCR Not Detected (NotDetected); Rotavirus A Not Detected (NotDetected); Salmonella, PCR Not Detected (NotDetected); Sapovirus Not Detected (NotDetected); Shiga-like toxin E coli Not Detected (NotDetected); Shigella Enterovasive E coli Not Detected (NotDetected); Vibrio Cholerae Not Detected (NotDetected); Vibrio, PCR Not Detected (NotDetected); Yersinia Entercolitica, PCR Not Detected (NotDetected)
--- NOTE | 2022-07-02 12:13 | EXP.HP ---
History of Present Illness *Admission Date: 07/01/22 *Reason for visit:: diarrhea and weakness *History of present illness: Ms. Culp is a 76-year-old white female with a history of coronary artery disease, hypothyroidism, and polymyalgia rheumatica who was exposed to COVID 5 days ago on Sunday. On she began developing some head congestion and sinus drainage and Sunday went to the [facility] to be checked for COVID. COVID swab was obtained but not resulted that day and she was empirically started on cefdinir. Later in the evening Sunday she developed fever, chills, and diarrhea. She presented to the ER yesterday morning with these complaints at which time she learned her COVID test from Sunday was positive. Additional lab work-up in the ER revealed a potassium of 2.7. She was treated and released but throughout the day yesterday she had worsening diarrhea and was incontinent. She had some nausea and vomiting and unable to tolerate oral intake. She returned to the ER last evening with these complaints and subsequently admitted. This morning, she feels her nausea has improved and she has had no vomiting. She however has had multiple loose stools through the night. She denies abdominal pain, cramping, or blood in her stool. [facility] Medical History (Updated 07/02/22 @ 12:36 by Wyatt Torres MD) Cataract Foot fracture, right History of back pain History of left heart catheterization HLD (hyperlipidemia) Hyperlipidemia Hypertension Hypothyroidism Myocardial infarction Polymyalgia rheumatica syndrome Surgical History (Updated 07/01/22 @ 22:58 by Kristi Bonilla RN) H/O thyroidectomy History of appendectomy History of hysterectomy History of tonsillectomy Previous back surgery Family History (Updated 06/15/22 @ 09:48 by Susannah Hammond CMA) Heart attack Cancer Hypertension Social History (Updated 07/01/22 @ 22:58 by Kristi Bonilla RN) Smoking Status: Former smoker years smoked: 40 how long ago did patient quit smokin years alcohol intake: never substance use type: denies use current occupational status: retired Travel in the last 8 weeks: None caregiver/support person: Yes () household members: spouse housing: house marital status: special marvin needs: No Review of Systems Constitutional Constitutional: Reports as per HPI and Denies headache(s) Eyes Eyes: Denies change in vision ENT Ears, Nose, Mouth, and Throat: Denies dizziness, Reports dry mouth, Denies headache(s), Denies nasal discharge and Denies sore throat *Cardiovascular Cardiovascular: Denies chest pain, Denies dyspnea and Denies leg edema *Respiratory Respiratory: Denies chest congestion, Denies cough and Denies dyspnea *Gastrointestinal Gastrointestinal: Reports as per HPI *Genitourinary Genitourinary: Denies dysuria and Denies urinary incontinence *Musculoskeletal Musculoskeletal: Reports arthralgias and Reports joint swelling Integumentary/Breasts Skin/Breast: Denies change in pigmentation and Denies rash *Neurologic Neurologic: Denies behavioral changes, Denies confusion, Denies dizziness and Denies headache(s) Psychiatric Psychiatric: Denies behavioral changes and Denies confusion Meds Home Medications and Allergies Home Medications Medication Instructions Recorded Confirmed Type aspirin 81 mg tablet,delayed 81 mg PO DAILY heart health 04/24/18 07/01/22 History release carvedilol 12.5 mg tablet 12.5 mg PO BID Hypertension 04/24/18 07/01/22 History ezetimibe 10 mg tablet 10 mg PO DAILY Cholesterol 04/24/18 07/01/22 History levothyroxine 112 mcg tablet 112 mcg PO DAILY thyroid 04/24/18 07/01/22 History simvastatin 20 mg tablet 20 mg PO HS Cholesterol 04/24/18 07/02/22 History hydroxychloroquine 200 mg tablet 200 mg PO DAILY Arthritis 05/11/22 07/01/22 History ticagrelor 60 mg tablet 60 mg PO BID PLATELET INHIBITOR 05/11/22 07/02/22 History hydrochlorothiazide 12.5 m
--- NOTE | 2022-07-02 15:37 | PC.NURSE ---
pt had 1 unmeasured void
[2022-07-02 22:52] LABS: Microscopic, Urine URINE MICROSCOPIC (MICROSCOPIC)
[2022-07-02 22:54] LABS: Appearance,Urine CLEAR (Clear); Bilirubin,Urine Negative (Negative); Blood, Urine 1+ (Negative); Color,Urine YELLOW (Yellow); Glucose,Urine (UA) Negative (Negative); Ketones,Urine Negative (Negative); Leukocyte Esterase,Urine Negative (Negative); Nitrate,Urine Negative (Negative); Protein,Urine Negative (Negative); Urobilinogen,Urine 0.2 EU/dl (0.2)
[2022-07-02 22:58] LABS: Amorphous Sediment,Urine Trace /lpf; Squamous Epithelial Cell,Urine Occasional #/hpf (0-5); WBC,Urine Occasional #/hpf (0-3)
[2022-07-03 03:14] VITALS: BP 139/65; PULSE 67; RESP 18; TEMP 36.7; O2SAT 95
[2022-07-03 05:00] VITALS: BMI 20.2
--- NOTE | 2022-07-03 05:26 | PC.NURSE ---
no changes from previous assessment, no diarrhea reported this shift, pt with no complaints of nausea this shift, pt alert and oriented x4, pt is ready to go home, VSS, no other issues or concerns noted at this time, no acute distress noted.
[2022-07-03 07:36] LABS: Anion Gap 8.8 mEq/L (5-15); Blood Urea Nitrogen 9 mg/dl (7-17); Calcium 7.8 mg/dl (8.4-10.2); Carbon Dioxide 23 mmol/L (22.0-30.0); Chloride 100 mmol/L (98-107); Creatinine Clearance Estimated 44 mL/min (50-200); Estimated Glomerular Filt Rate 82 ml/min (>60); GFR (African American) 99 ML/MIN (>60); Glucose 109 mg/dl (74-100); Sodium 129 mmol/L (136-145)
[2022-07-03 07:42] LABS: Potassium 2.8 mmoL/L (3.5-5.1)
[2022-07-03 08:00] VITALS: BP 141/80; PULSE 72; RESP 16; TEMP 36.5; O2SAT 97
--- NOTE | 2022-07-03 18:35 | P.PN_ITS ---
Subjective *Date: 07/03/22 *Time: 08:30 Interval history: She is feeling much better. She has had no diarrhea since late yesterday afternoon. Denies abdominal pain. She is eating some but not back to normal yet. She is eager to go home. Exam Data for Last 24 hours Vital signs and Labs for Last 24 Hours: Temp Pulse Resp BP Pulse Ox 97.7 F 72 16 141/80 H 97 07/03/22 08:00 07/03/22 08:00 07/03/22 08:00 07/03/22 08:00 07/03/22 08:00 Laboratory Results - last 24 hr 07/02/22 22:44: Urine Color Yellow, Urine Appearance Clear, Urine pH 6.0, Ur Specific [place] 1.010, Urine Protein Negative, Urine Glucose (UA) Negative, Urine Ketones Negative, Urine Blood 1+, Urine Nitrate Negative, Urine Bilirubin Negative, Urine Urobilinogen 0.2, Ur Leukocyte Esterase Negative, Urine RBC 5- 10, Urine WBC Occasional, Ur Squamous Epith Cells Occasional, Amorphous Sediment Trace 07/03/22 07:18: Sodium 129 L, Potassium 2.8 L*, Chloride 100, Carbon Dioxide 23, Anion Gap 8.8, BUN 9 D, Creatinine 0.70 D, Estimated Creat Clear 44, Estimated GFR 82, Est GFR ( Amer) 99 D, Glucose 109 H, Calcium 7.8 L I & O for Last 24 hours: Intake & Output 07/01/22 07/02/22 07/03/22 07/04/22 11:59 11:59 11:59 11:59 Intake Total 956 / 956 1693 / 1693 Output Total 0 / 0 0 / 0 Balance 956 / 956 1693 / 1693 Weight 134 lb 4 oz 126 lb 1 oz Constitutional Comments: She appears in no distress. Lungs are clear to auscultation. Heart is regular. Abdomen is soft and nondistended with no unusual masses or tenderness. Extremities no edema Assessment and Plan *Assessment and plan (1) COVID-19: Status: Acute Category: Medical Code(s): U07.1 - COVID-19 (2) Dehydration: Status: Acute Category: Medical Code(s): E86.0 - Dehydration (3) Hypokalemia: Status: Acute Category: Medical Code(s): E87.6 - Hypokalemia (4) CAD (coronary artery disease): Status: Acute Category: Medical Code(s): I25.10 - Atherosclerotic heart disease of [place] coronary artery without angina pectoris (5) Hypertension: Status: Acute Category: Medical Code(s): I10 - Essential (primary) hypertension (6) Hypothyroidism: Status: Chronic Category: Medical Code(s): E03.9 - Hypothyroidism, unspecified (7) Polymyalgia rheumatica syndrome: Status: Acute Category: Medical Code(s): M35.3 - Polymyalgia rheumatica Assessment and plan all Dx Assessment and Plan All Dx:: He has symptoms much improved. She is stable for discharge.
--- NOTE | 2022-07-04 22:27 | EXP.DC.SUM ---
General Admission date:: 07/01/22 Discharge date: 07/03/22 HPI HPI HPI: Ms. Culp is a 76-year-old white female with a history of coronary artery disease, hypothyroidism, and polymyalgia rheumatica who was exposed to COVID 5 days ago on Sunday. On she began developing some head congestion and sinus drainage and Sunday went to the [facility] to be checked for COVID. COVID swab was obtained but not resulted that day and she was empirically started on cefdinir. Later in the evening Sunday she developed fever, chills, and diarrhea. She presented to the ER yesterday morning with these complaints at which time she learned her COVID test from Sunday was positive. Additional lab work-up in the ER revealed a potassium of 2.7. She was treated and released but throughout the day yesterday she had worsening diarrhea and was incontinent. She had some nausea and vomiting and unable to tolerate oral intake. She returned to the ER last evening with these complaints and subsequently admitted. This morning, she feels her nausea has improved and she has had no vomiting. She however has had multiple loose stools through the night. She denies abdominal pain, cramping, or blood in her stool. Hospital Course Hospital Course Hospital Course: The patient was admitted for IV fluid support and replacement of her potassium. A diarrhea panel was ordered to rule out other etiologies, but it appeared her GI symptoms were likely from COVID. By 07/03/2022 she was feeling much better. She had had no further diarrhea and denied any abdominal pain. She was eating and was eager to go home. Her potassium had improved slightly. She was stable to be discharged home with continued potassium supplementation. Exam Data for Last 24 hours Vital signs and Labs for Last 24 Hours: Temp Pulse Resp BP Pulse Ox 97.7 F 72 16 141/80 H 97 07/03/22 08:00 07/03/22 08:00 07/03/22 08:00 07/03/22 08:00 07/03/22 08:00 I & O for Last 24 hours: Intake & Output 07/02/22 07/03/22 07/04/22 07/05/22 11:59 11:59 11:59 11:59 Intake Total 956 / 956 1693 / 1693 Output Total 0 / 0 0 / 0 Balance 956 / 956 1693 / 1693 Weight 134 lb 4 oz 126 lb 1 oz Narrative: She appears in no distress.? Lungs are clear to auscultation.? Heart is regular.? Abdomen is soft and nondistended with no unusual masses or tenderness.? Extremities no edema DS: Diagnosis Discharge Diagnosis (1) COVID-19: Status: Inactive (2) Dehydration: Status: Resolved (3) Hypokalemia: Status: Acute (4) CAD (coronary artery disease): Status: Acute (5) Hypertension: Status: Acute (6) Hypothyroidism: Status: Chronic (7) Polymyalgia rheumatica syndrome: Status: Acute Meds Home Medications and Allergies Home Medications Medication Instructions Recorded Confirmed Type aspirin 81 mg tablet,delayed 81 mg PO DAILY heart health 04/24/18 07/01/22 History release carvedilol 12.5 mg tablet 12.5 mg PO BID Hypertension 04/24/18 07/01/22 History ezetimibe 10 mg tablet 10 mg PO DAILY Cholesterol 04/24/18 07/01/22 History levothyroxine 112 mcg tablet 112 mcg PO DAILY thyroid 04/24/18 07/01/22 History simvastatin 20 mg tablet 20 mg PO HS Cholesterol 04/24/18 07/02/22 History hydroxychloroquine 200 mg tablet 200 mg PO DAILY Arthritis 05/11/22 07/01/22 History ticagrelor 60 mg tablet 60 mg PO BID PLATELET INHIBITOR 05/11/22 07/02/22 History hydrochlorothiazide 12.5 mg tablet 12.5 mg PO DAILY Fluid 06/15/22 07/01/22 History losartan 100 mg tablet 100 mg PO DAILY Hypertension 06/15/22 07/01/22 History cetirizine 10 mg capsule 10 mg PO DAILY allergies 07/01/22 07/01/22 History prednisone 5 mg tablet 5 - 10 mg PO DIRECTED STEROID 07/01/22 07/02/22 History acetaminophen 500 mg capsule 500 mg PO Q6HP PRN Mild Pain 07/02/22 07/02/22 History (Scale Score 1-4) potassium chloride 20 mEq 20 meq PO DAILY Supplement #14 tabs 07/03/22 Rx tablet,extended r
--- NOTE | 2022-07-05 13:43 | CARE MANAGER ---
Contacted patient related to hospital discharge. She states she is still weak, but feeling a little better each day. She is aware of her follow up appointments. She denies questions or concerns at this time. KAMALA Patel
== END 2022-07-03 09:23 | disposition home or self-care (01) ==
LOC: ER 19:39 → 2ND 20:10
PROVIDERS: Admitting Provider Family Medicine; Emergency Provider Emergency Medicine; PCP Family Medicine; Visit Provider Family Medicine
DX: U07.1 COVID-19 (principal); I10 Essential (primary) hypertension; M35.3 Polymyalgia rheumatica; I25.10 Atherosclerotic heart disease of native coronary artery without angina pectoris; E03.9 Hypothyroidism, unspecified; I25.2 Old myocardial infarction; Z87.891 Personal history of nicotine dependence; Z79.899 Other long term (current) drug therapy; Z88.8 Allergy status to other drugs, medicaments and biological substances; E87.6 Hypokalemia; E86.0 Dehydration
CPT/HCPCS: G0378; 36415; 71045; 80048; 80053; 81001; 85007; 85025; 87506; 93005; 99283; 99285; J2405

== ENCOUNTER → 2022-07-11 09:44 | Outpatient (CLI) | payer MEDICARE, OTHER, SELFPAY ==
--- NOTE | 2022-07-11 09:48 | XR_ITS ---
FINAL REPORT CLINICAL HISTORY: pain, swelling COMPARISON: June 15, 2022 FINDINGS: Three views of the right foot were obtained. 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 Again seen is a transverse fracture through the base of the 5th metatarsal. There is no definite bridging callus formation. IMPRESSION: Persistent transverse fracture through the base of the 5th metatarsal. Reviewed, Interpreted and Dictated by Jomar Nguyen MD Transcribed by Kenji Hector Authenticated and [facility]
== END ==
PROVIDERS: PCP Family Medicine; Visit Provider Podiatrist
DX: R60.0 Localized edema (principal); S92.341A Displaced fracture of fourth metatarsal bone, right foot, initial encounter for closed fracture; S92.354D Nondisplaced fracture of fifth metatarsal bone, right foot, subsequent encounter for fracture with routine healing; T14.8XXA Other injury of unspecified body region, initial encounter
CPT/HCPCS: 73630

== ENCOUNTER 2022-09-19 23:15 | Emergency (ER) | payer MEDICARE, OTHER, SELFPAY ==
[2022-09-20] VITALS: BP 149/90; PULSE 83; O2SAT 97
[2022-09-20 00:06] VITALS: BP 149/90; PULSE 86; RESP 19; TEMP 36.6; O2SAT 98; BMI 24.2
[2022-09-20 00:14] VITALS: BMI 24.2
[2022-09-20 00:51] LABS: Coronavirus 19, PCR Not Detected (NotDetected); Influenza A, PCR Not Detected (NotDetected); Influenza B, PCR Not Detected (NotDetected)
[2022-09-20 00:53] LABS: Basophils # 0.1 K/mm3 (0-0.2); Basophils % 0.3 % (0.1-2.0); Eosinophils # 0.2 K/mm3 (0.0-0.4); Eosinophils % 0.8 % (0.1-12.0); Hematocrit 49.1 % (37.0-47.0); Hemoglobin 15.6 g/dL (12.2-16.2); Lymphocytes # 0.8 K/mm3 (0.7-4.5); Mean Corpuscular HGB Conc 31.8 g/dL (31.8-35.4); Mean Corpuscular Hemoglobin 34.3 pg (27.0-31.2); Mean Corpuscular Volume 107.8 fl (81-99); Mean Platelet Volume 8.4 fl (7.4-10.4); Monocytes # 0.7 K/mm3 (0.1-1.0); Monocytes % 3.4 % (1.7-9.3); Neutrophils # 18.2 K/mm3 (1.8-7.8); Neutrophils % 91.5 % (37.0-80.0); Platelet Count 348 K/mm3 (142-424); Red Blood Count 4.56 M/mm3 (4.20-5.40); Red Cell Distribution Width 12.8 % (11.5-17.5); White Blood Count 19.9 K/mm3 (4.8-10.8)
[2022-09-20 00:57] LABS: MANUAL DIFFERENTIAL MANUAL DIFFERENTIAL (MANUAL DIFF)
[2022-09-20 01:00] VITALS: BP 125/74; PULSE 80; O2SAT 97
[2022-09-20 01:11] LABS: Chloride 91 mmol/L (98-107)
[2022-09-20 01:12] LABS: Potassium 3.5 mmoL/L (3.5-5.1); Sodium 130 mmol/L (136-145)
--- NOTE | 2022-09-20 01:12 | CT_ITS ---
PROCEDURE INFORMATION: Exam: CT Abdomen And Pelvis With Contrast Exam date and time: 09/20/2022 1:42 AM Age: 76 years old Clinical indication: Abdominal pain; Generalized; Patient HX: Abd pain, nausea, vomiting, diarrhea; Additional info: N/v/d acute TECHNIQUE: Imaging protocol: Computed tomography of the abdomen and pelvis with contrast. Total images: 330 Radiation optimization: All CT scans at this facility use at least one of these dose optimization techniques: automated exposure control; mA and/or kV adjustment per patient size (includes targeted exams where dose is matched to clinical indication); or iterative reconstruction. Contrast material: ISOVUE; Contrast volume: 75 ml; Contrast route: IV; COMPARISON: CR XR CHEST PORTABLE 07/01/2022 7:10 PM FINDINGS: Lungs: Bibasilar mosaic attenuation of the pulmonary parenchyma, suggesting small airway infectious/inflammatory process. Coronary arteries: Calcific coronary artery disease is evident. Liver: Nonspecific low-density foci of the liver statistically favor benign processes, no further follow-up needed, measuring as large as 4 mm. Gallbladder and bile ducts: Normal. No calcified stones. No ductal dilation. Pancreas: Normal. No ductal dilation. Spleen: Incidental splenic granulomata are noted. Incidental splenule. Adrenal glands: Normal. No mass. Kidneys and ureters: Nonspecific low-density foci of the kidneys statistically favor benign cysts, no follow-up imaging is recommended, as large as 6 mm. Stomach and bowel: Prominent proximal loops of jejunum in the left abdomen are nonspecific but could indicate mild evidence of ileus or infectious/inflammatory enteritis. Prominent fluid in small bowel and colon suggestive of infectious/inflammatory enteritis/colitis. Thickening of the wall of much of the distal jejunum through mid ileum with mesenteric edema but no distension, favoring infectious/inflammatory enteritis. Appendix: The appendix is not identified but no evidence of appendicitis. Intraperitoneal space: See Stomach and bowel finding. Vasculature: Atherosclerosis is evident. Lymph nodes: Unremarkable. No enlarged lymph nodes. Urinary bladder: Unremarkable as visualized. Reproductive: Hysterectomy noted. Bones/joints: Osseous demineralization is evident. Moderate spinal degenerative changes. Facet joint degenerative changes are present. Multifocal central canal and neural foraminal stenosis, due to degeneration. Soft tissues: Unremarkable. Other findings: Incidental pelvic phlebolith formation. IMPRESSION: 1. Thickening of the wall of much of the distal jejunum through mid ileum with mesenteric edema but no distension, favoring infectious/inflammatory enteritis. 2. Prominent fluid in small bowel and colon suggestive of infectious/inflammatory enteritis/colitis. 3. Bibasilar mosaic attenuation of the pulmonary parenchyma, suggesting small airway infectious/inflammatory process. 4. No ureteral stone or hydronephrosis. COMMENTS: Consistent with the [employer]'s Incidental Findings Committee white paper (J Am Dejah Radiol 2018): Any incidental renal lesion less than 1 cm or classified as too small to characterize, or any incidental cystic renal lesion characterized as simple-appearing, is likely benign. No follow-up imaging is recommended for these lesions per consensus recommendations based on imaging criteria.
--- NOTE | 2022-09-20 01:12 | HMH.EDNVD ---
Discharge Plan Disposition Patient Disposition: Home, Self-Care Prescriptions Prescriptions: New ondansetron HCl 4 mg Tablet 4 mg PO Q8H PRN (Reason: Nausea) Qty: 20 0RF No Action hydroxychloroquine 200 mg tablet 200 mg PO DAILY losartan 100 mg tablet 100 mg PO DAILY Label Comments: TAKE 1 TABLET BY MOUTH ONCE DAILY hydrochlorothiazide 12.5 mg tablet 12.5 mg PO DAILY Label Comments: TAKE 1 TABLET BY MOUTH ONCE DAILY carvedilol 12.5 MG tablet 12.5 mg PO BID aspirin 81 MG tablet,delayed release (DR/EC) 81 mg PO DAILY simvastatin 20 MG tablet 20 mg PO HS levothyroxine 112 MCG tablet 112 mcg PO DAILY ezetimibe 10 MG tablet 10 mg PO DAILY ticagrelor 60 mg tablet 60 mg PO BID prednisone 5 mg tablet 5 - 10 mg PO DIRECTED Rx Instructions: 1 tablet every other day alternating with 2 tablets every other day cetirizine 10 mg Capsule 10 mg PO DAILY acetaminophen 500 mg capsule 500 mg PO Q6HP PRN (Reason: Mild Pain (Scale Score 1-4)) potassium chloride 20 mEq tablet extended release 20 meq PO DAILY Qty: 14 0RF Referrals Follow up/Referrals: Wyatt Torres MD [Primary Care Provider] - See instructions Clinical Impressions Clinical Impression: Enteritis Instructions Patient Instructions: DI for Diarrhea and Traveler's Diarrhea -- Adult, DI for Nausea -- Adult Discharge ED Provider: Lennox Ann Nausea/Vomiting/Diarrhea HPI General Chief complaint: Nausea/Vomiting/Diarrhea Stated complaint: vomiting Time Seen by Provider: 09/20/22 01:12 Mode of Arrival: Family Vehicle Source of Information: Patient, Spouse and Medical Record Limitations: No Limitations Description of Symptoms (Recalled from ER Triage Doc. by RN): Pt c/o nausea, vomiting, chills, and fatigue. States this started suddenly @ 1900 tonight. Denies any pain or SOA. Denies fever. Denies diarrhea. She ate leftover for dinner and symptoms began a few hrs after. She also reports she was treated for a sinus infection earlier this week and received abx injection and omnicef. States this resolved but now she is having n/v. History of Present Illness HPI Narrative: started today with chills and vomiting no diabetes - on omnicef and has loose stool after coming to ed complaint: nausea and diarrhea Onset (ago): hour(s) Description of Vomiting: watery Associated Abdominal Pain: No Severity: moderate Context: recent antibiotic use Associated symptoms: denies other symptoms Related Data Home Medications Medication Instructions Recorded Confirmed aspirin 81 mg tablet,delayed 81 mg PO DAILY heart health 04/24/18 07/11/22 release carvedilol 12.5 mg tablet 12.5 mg PO BID Hypertension 04/24/18 07/11/22 ezetimibe 10 mg tablet 10 mg PO DAILY Cholesterol 04/24/18 07/11/22 levothyroxine 112 mcg tablet 112 mcg PO DAILY thyroid 04/24/18 07/11/22 simvastatin 20 mg tablet 20 mg PO HS Cholesterol 04/24/18 07/11/22 hydroxychloroquine 200 mg tablet 200 mg PO DAILY Arthritis 05/11/22 07/11/22 ticagrelor 60 mg tablet 60 mg PO BID PLATELET INHIBITOR 05/11/22 07/11/22 hydrochlorothiazide 12.5 mg tablet 12.5 mg PO DAILY Fluid 06/15/22 07/11/22 losartan 100 mg tablet 100 mg PO DAILY Hypertension 06/15/22 07/11/22 cetirizine 10 mg capsule 10 mg PO DAILY allergies 07/01/22 07/11/22 prednisone 5 mg tablet 5 - 10 mg PO DIRECTED STEROID 07/01/22 07/11/22 acetaminophen 500 mg capsule 500 mg PO Q6HP PRN Mild Pain 07/02/22 07/11/22 (Scale Score 1-4) Previous Rx's Medication Instructions Recorded potassium chloride 20 mEq 20 meq PO DAILY Supplement #14 tabs 07/03/22 tablet,extended release ondansetron HCl 4 mg tablet 4 mg PO Q8H PRN Nausea #20 tabs 09/20/22 Allergies Allergy/AdvReac Type Severity Reaction Status Date / Time azithromycin [AZITHROMYCIN] Allergy Unknown Verified 07/11/22 10:38 clavulanic acid Allergy Unknown Verified 07/11/22 10:
[2022-09-20 01:14] LABS: Alanine Aminotransferase 22 U/L (12-78); Alkaline Phosphatase 82 U/L (38-126); Amylase 124 U/L (30-110); Anion Gap 19.5 mEq/L (5-15); Aspartate Amino Transferase 40 U/L (14-36); Bilirubin,Total 0.5 mg/dl (0.2-1.3); Blood Urea Nitrogen 18 mg/dl (7-17); Carbon Dioxide 23 mmol/L (22.0-30.0); Creatinine Clearance Estimated 44 mL/min (50-200); Estimated Glomerular Filt Rate 44 ml/min (>60); GFR (African American) 53 ML/MIN (>60)
[2022-09-20 01:15] LABS: Adenovirus F 40/41, stool Not Detected (NotDetected); Astrovirus Not Detected (NotDetected); Campylobacter Not Detected (NotDetected); Clostridium Difficile A/B, PCR Not Detected (NotDetected); Cryptosporidium Not Detected (NotDetected); Cyclospora Cayetanesis Not Detected (NotDetected); Entamoeba histolytica Not Detected (NotDetected); Enteroaggregative E coli Not Detected (NotDetected); Enteropathogenic E coli Not Detected (NotDetected); Enterotoxigenic E coli Not Detected (NotDetected); Giardia lamblia Not Detected (NotDetected); Norovirus Not Detected (NotDetected); Plesimonas Shigalloides, PCR Not Detected (NotDetected); Rotavirus A Not Detected (NotDetected); Salmonella, PCR Not Detected (NotDetected); Sapovirus Not Detected (NotDetected); Shiga-like toxin E coli Not Detected (NotDetected); Shigella Enterovasive E coli Not Detected (NotDetected); Vibrio Cholerae Not Detected (NotDetected); Vibrio, PCR Not Detected (NotDetected); Yersinia Entercolitica, PCR Not Detected (NotDetected)
[2022-09-20 01:15] LABS: Albumin Level 4.6 g/dl (3.5-5.0); Albumin/Globulin Ratio 1.6 (1.1-1.8); Calcium 9.6 mg/dl (8.4-10.2); Globulin 2.9 g/dL (1.3-3.2); Glucose 135 mg/dl (74-100); Lipase 181 U/L (23-300); Total Protein,Serum 7.5 g/dl (6.3-8.2)
--- NOTE | 2022-09-20 01:39 | PC.NURSE ---
Pt gone to RAD
--- NOTE | 2022-09-20 01:45 | PC.NURSE ---
Pt back from RAD
[2022-09-20 01:53] LABS: Eosinophils % 1 % (0-3); Lymphocytes % 7 % (10-50); Macrocytosis 2+; Monocytes % 4 % (2-9); Neutrophils % 88 % (42-76); Platelet Estimate Normal; Total Cells Counted 100
[2022-09-20 02:00] VITALS: BP 162/97; PULSE 97; O2SAT 97
[2022-09-20 03:06] LABS: C-Reactive Protein 4.6 mg/L (0-4)
--- NOTE | 2022-09-20 03:11 | PC.NURSE ---
called to check time remaining on diarrhea panel, 1 hr left
[2022-09-20 03:37] LABS: Erythrocyte Sedimentation Rate 7 mm/hr (0-30)
--- NOTE | 2022-09-20 05:26 | PC.NURSE ---
Pt continues to rest in bed at this time.
[2022-09-20 06:31] VITALS: BP 150/78; PULSE 60; RESP 17; TEMP 36.8; O2SAT 99
== END 2022-09-20 06:42 | disposition home or self-care (01) ==
PROVIDERS: Emergency Provider Emergency Medicine; PCP Family Medicine
DX: R11.2 Nausea with vomiting, unspecified (principal); R19.7 Diarrhea, unspecified; R53.82 Chronic fatigue, unspecified; Z86.16 Personal history of COVID-19; I10 Essential (primary) hypertension; E78.5 Hyperlipidemia, unspecified; I25.2 Old myocardial infarction; E89.0 Postprocedural hypothyroidism; M35.3 Polymyalgia rheumatica; Z79.1 Long term (current) use of non-steroidal anti-inflammatories (NSAID); H26.9 Unspecified cataract; Z79.52 Long term (current) use of systemic steroids; Z79.82 Long term (current) use of aspirin; Z79.899 Other long term (current) drug therapy; Z88.0 Allergy status to penicillin; Z88.1 Allergy status to other antibiotic agents; Z88.2 Allergy status to sulfonamides; Z88.3 Allergy status to other anti-infective agents; Z88.5 Allergy status to narcotic agent; Z88.8 Allergy status to other drugs, medicaments and biological substances; Z82.49 Family history of ischemic heart disease and other diseases of the circulatory system; Z80.9 Family history of malignant neoplasm, unspecified
CPT/HCPCS: 74177; 80053; 82150; 83690; 84145; 85007; 85025; 85651; 86140; 87507; 96361; 96374; 96375; 96376; 99285; C9803; J2405; Q9967; U0003; U0005

== ENCOUNTER → 2022-11-08 06:59 | Outpatient (CLI) | payer MEDICARE, OTHER, SELFPAY ==
[2022-11-08 09:10] LABS: Alanine Aminotransferase 19 U/L (12-78); Albumin Level 4.5 g/dl (3.5-5.0); Alkaline Phosphatase 68 U/L (38-126); Anion Gap 10.6 mEq/L (5-15); Aspartate Amino Transferase 29 U/L (14-36); Bilirubin,Direct 0.2 mg/dl (0.0-0.4); Bilirubin,Indirect 0.4 mg/dL (0.0-0.9); Bilirubin,Total 0.6 mg/dl (0.2-1.3); Bilirubin,Unconjugated 0.4 mg/dL (0.0-1.1); Blood Urea Nitrogen 12 mg/dl (7-17); Calcium 9.4 mg/dl (8.4-10.2); Carbon Dioxide 29 mmol/L (22.0-30.0); Chloride 95 mmol/L (98-107); Chol/HDL Ratio 1.9 (1-3.5); Cholesterol 193 mg/dl (140-200); Estimated Glomerular Filt Rate 54 ml/min (>60); GFR (African American) 65 ML/MIN (>60); Glucose 97 mg/dl (74-100); HDL Cholesterol 101 mg/dl (40-60); Potassium 3.6 mmoL/L (3.5-5.1); Sodium 131 mmol/L (136-145); Total Protein,Serum 6.9 g/dl (6.3-8.2); Triglycerides 98 mg/dl (30-150); VLDL Cholesterol 20 mg/dL (0-40)
== END ==
PROVIDERS: PCP Family Medicine; Visit Provider Internal Medicine Interventional Cardiology
DX: E78.00 Pure hypercholesterolemia, unspecified (principal)
CPT/HCPCS: 36415; 80048; 80061; 80076

== ENCOUNTER 2022-11-14 02:06 | Emergency (ER) | payer MEDICARE, OTHER, SELFPAY ==
[2022-11-14] VITALS (10 sets, daily range): BP systolic 120–161; BP diastolic 64–81; PULSE 90–103; RESP 18; TEMP 36.9; O2SAT 95–98; BMI 24.2
[2022-11-14 02:16] LABS: Basophils # 0.4 K/mm3 (0-0.2); Basophils % 1.9 % (0.1-2.0); Eosinophils # 0.2 K/mm3 (0.0-0.4); Eosinophils % 1.3 % (0.1-12.0); Hematocrit 49.1 % (37.0-47.0); Hemoglobin 16.2 g/dL (12.2-16.2); Lymphocytes # 0.7 K/mm3 (0.7-4.5); Mean Corpuscular Hemoglobin 34.4 pg (27.0-31.2); Mean Corpuscular Volume 104.4 fl (81-99); Monocytes # 0.5 K/mm3 (0.1-1.0); Monocytes % 2.9 % (1.7-9.3); Neutrophils # 16.1 K/mm3 (1.8-7.8); Neutrophils % 89.8 % (37.0-80.0); Platelet Count 302 K/mm3 (142-424); Red Cell Distribution Width 13.3 % (11.5-17.5); White Blood Count 17.9 K/mm3 (4.8-10.8)
[2022-11-14 02:17] LABS: MANUAL DIFFERENTIAL MANUAL DIFFERENTIAL (MANUAL DIFF)
[2022-11-14 02:21] LABS: Chloride 95 mmol/L (98-107)
[2022-11-14 02:22] LABS: Potassium 3.6 mmoL/L (3.5-5.1); Sodium 131 mmol/L (136-145)
[2022-11-14 02:24] LABS: Alanine Aminotransferase 28 U/L (12-78); Alkaline Phosphatase 70 U/L (38-126); Amylase 122 U/L (30-110); Anion Gap 15.6 mEq/L (5-15); Aspartate Amino Transferase 35 U/L (14-36); Bilirubin,Total 0.6 mg/dl (0.2-1.3); Blood Urea Nitrogen 20 mg/dl (7-17); Carbon Dioxide 24 mmol/L (22.0-30.0); Creatinine Clearance Estimated 44 mL/min (50-200); Estimated Glomerular Filt Rate 44 ml/min (>60); GFR (African American) 53 ML/MIN (>60); Glucose 139 mg/dl (74-100); Lipase 163 U/L (23-300)
[2022-11-14 02:25] LABS: Albumin Level 4.8 g/dl (3.5-5.0); Albumin/Globulin Ratio 1.6 (1.1-1.8); Calcium 9.3 mg/dl (8.4-10.2); Total Protein,Serum 7.8 g/dl (6.3-8.2)
[2022-11-14 02:35] LABS: Coronavirus 19, PCR Not Detected (NotDetected); Influenza A, PCR Not Detected (NotDetected); Influenza B, PCR Not Detected (NotDetected)
[2022-11-14 02:38] LABS: Lymphocytes % 10 % (10-50); Monocytes % 1 % (2-9); Neutrophils % 89 % (42-76); Platelet Estimate Normal; Total Cells Counted 100
[2022-11-14 02:39] LABS: Macrocytosis 1+
--- NOTE | 2022-11-14 03:30 | HMH.EDNVD ---
Discharge Plan Disposition Patient Disposition: Home, Self-Care Prescriptions Prescriptions: New ondansetron HCl 4 mg Tablet 4 mg PO Q8H PRN (Reason: Nausea) Qty: 20 0RF No Action hydroxychloroquine 200 mg tablet 200 mg PO DAILY losartan 100 mg tablet 100 mg PO DAILY Label Comments: TAKE 1 TABLET BY MOUTH ONCE DAILY hydrochlorothiazide 12.5 mg tablet 12.5 mg PO DAILY Label Comments: TAKE 1 TABLET BY MOUTH ONCE DAILY carvedilol 12.5 MG tablet 12.5 mg PO BID aspirin 81 MG tablet,delayed release (DR/EC) 81 mg PO DAILY simvastatin 20 MG tablet 20 mg PO HS levothyroxine 112 MCG tablet 112 mcg PO DAILY ezetimibe 10 MG tablet 10 mg PO DAILY ticagrelor 60 mg tablet 60 mg PO BID prednisone 5 mg tablet 5 - 10 mg PO DIRECTED Rx Instructions: 1 tablet every other day alternating with 2 tablets every other day cetirizine 10 mg Capsule 10 mg PO DAILY ondansetron HCl 4 mg Tablet 4 mg PO Q8H PRN (Reason: Nausea) Qty: 20 0RF Referrals Follow up/Referrals: Wyatt Torres MD [Primary Care Provider] - See instructions Clinical Impressions Clinical Impression: Enteritis, MARY (acute kidney injury) Instructions Patient Instructions: DI for Nausea -- Adult Discharge ED Provider: Lennox Ann Nausea/Vomiting/Diarrhea HPI General Chief complaint: Nausea/Vomiting/Diarrhea Stated complaint: upset stomach Time Seen by Provider: 11/14/22 02:15 Mode of Arrival: EMS Source of Information: Patient, Spouse and Medical Record Limitations: No Limitations Description of Symptoms (Recalled from ER Triage Doc. by RN): Per patient, she began having n/v/d at approx 2000. Denies any abdominal pain. Reports that she ate dinner at 1800. Denies any sick contacts. History of Present Illness HPI Narrative: pt with n/v and diarrhea after taking abx - started ester LEMOS complaint: nausea, vomiting and diarrhea Onset (ago): hour(s) Associated Abdominal Pain: No Severity: moderate Associated symptoms: denies other symptoms Related Data Home Medications Medication Instructions Recorded Confirmed aspirin 81 mg tablet,delayed 81 mg PO DAILY heart health 04/24/18 11/14/22 release carvedilol 12.5 mg tablet 12.5 mg PO BID Hypertension 04/24/18 11/14/22 ezetimibe 10 mg tablet 10 mg PO DAILY Cholesterol 04/24/18 11/14/22 levothyroxine 112 mcg tablet 112 mcg PO DAILY thyroid 04/24/18 11/14/22 simvastatin 20 mg tablet 20 mg PO HS Cholesterol 04/24/18 11/14/22 hydroxychloroquine 200 mg tablet 200 mg PO DAILY Arthritis 05/11/22 11/14/22 ticagrelor 60 mg tablet 60 mg PO BID PLATELET INHIBITOR 05/11/22 11/14/22 hydrochlorothiazide 12.5 mg tablet 12.5 mg PO DAILY Fluid 06/15/22 11/14/22 losartan 100 mg tablet 100 mg PO DAILY Hypertension 06/15/22 11/14/22 cetirizine 10 mg capsule 10 mg PO DAILY allergies 07/01/22 11/14/22 prednisone 5 mg tablet 5 - 10 mg PO DIRECTED STEROID 07/01/22 11/14/22 Previous Rx's Medication Instructions Recorded ondansetron HCl 4 mg tablet 4 mg PO Q8H PRN Nausea #20 tabs 09/20/22 ondansetron HCl 4 mg tablet 4 mg PO Q8H PRN Nausea #20 tabs 11/14/22 Allergies Allergy/AdvReac Type Severity Reaction Status Date / Time Sulfa (Sulfonamide Allergy Unknown Verified 07/11/22 10:38 Antibiotics) [SULFA (SULFONAMIDE ANTIBIOTICS)] [facility] Disclaimer: The information contained in this section may have been updated after the patient was seen, as this information can be updated by other users. Medical History Cataract Closed fracture of fourth metatarsal of right foot COVID-19 COVID-19 Foot fracture, right History of back pain History of left heart catheterization HLD (hyperlipidemia) Hyperlipidemia Hypertension Hypothyroidism Myocardial infarction Nondisplaced fracture of fifth right metatarsal bone with routine healing Polymya
--- NOTE | 2022-11-14 03:35 | CT_ITS ---
PROCEDURE INFORMATION: Exam: CT Abdomen And Pelvis With Contrast Exam date and time: 11/14/2022 3:56 AM Age: 76 years old Clinical indication: Nausea; Prior surgery; Surgery type: Hysterectomy, appendectomy; Additional info: Abdominal pain TECHNIQUE: Imaging protocol: Computed tomography of the abdomen and pelvis with contrast. Radiation optimization: All CT scans at this facility use at least one of these dose optimization techniques: automated exposure control; mA and/or kV adjustment per patient size (includes targeted exams where dose is matched to clinical indication); or iterative reconstruction. Contrast material: ISOVUE; Contrast volume: 75 ml; Contrast route: IV; COMPARISON: CT ABDOMEN PELVIS W CON 09/20/2022 1:42 AM FINDINGS: Heart: The heart is large in size. There are coronary artery calcifications. Liver: Normal. No mass. Gallbladder and bile ducts: Normal. No calcified stones. No ductal dilation. Pancreas: Normal. No ductal dilation. Spleen: There are granulomas of the spleen. Adrenal glands: Normal. No mass. Kidneys and ureters: There is a right kidney subcentimeter cyst. Stomach and bowel: Fluid in the colon. There is mild colonic wall thickening. Thickened appearance of the rectum as well. There are fluid-filled nondistended small bowel loops. Suggestion of slight small bowel wall thickening in the pelvis. No obstruction. Appendix: The appendix is not seen. Intraperitoneal space: Unremarkable. No free air. No significant fluid collection. Vasculature: Atherosclerosis. Lymph nodes: Unremarkable. No enlarged lymph nodes. Urinary bladder: Unremarkable as visualized. Reproductive: Uterus has been removed. Bones/joints: Degenerative changes of the spine. Soft tissues: Unremarkable. IMPRESSION: Findings consistent with proctocolitis and likely associated enteritis. COMMENTS: Consistent with the [employer]'s Incidental Findings Committee white paper (J Am Dejah Radiol 2018): Any incidental renal lesion less than 1 cm or classified as too small to characterize, or any incidental cystic renal lesion characterized as simple-appearing, is likely benign. No follow-up imaging is recommended for these lesions per consensus recommendations based on imaging criteria.
--- NOTE | 2022-11-14 03:35 | PC.NURSE ---
MD would like to add ct a/p with contrast, lactic, and inflammatory markers.
[2022-11-14 04:10] LABS: Lactic Acid 2.5 mmol/L (0.7-2.1)
[2022-11-14 04:25] LABS: Procalcitonin 0.979 ng/mL (0.0-2.0)
[2022-11-14 04:29] LABS: Erythrocyte Sedimentation Rate 12 mm/hr (0-30)
--- NOTE | 2022-11-14 07:22 | PC.NURSE ---
TANNER LEMOS at for update on POC
[2022-11-14 07:52] LABS: Microscopic, Urine URINE MICROSCOPIC (MICROSCOPIC)
[2022-11-14 07:53] LABS: Appearance,Urine CLEAR (Clear); Bilirubin,Urine Negative (Negative); Blood, Urine TRACE-L (Negative); Color,Urine YELLOW (Yellow); Glucose,Urine (UA) Negative (Negative); Ketones,Urine Negative (Negative); Leukocyte Esterase,Urine Negative (Negative); Nitrate,Urine Negative (Negative); PH,Urine 6.5 (5.0-8.5); Protein,Urine Negative (Negative); Specific Gravity, Urine <= 1.005 (1.005-1.030); Urobilinogen,Urine 0.2 EU/dl (0.2)
[2022-11-14 07:56] LABS: Reflex Lactic Add Lactic Reflex
[2022-11-14 08:04] LABS: Bacteria,Urine Trace /lpf; RBC,Urine Occasional #/hpf (0-3); Squamous Epithelial Cell,Urine Occasional #/hpf (0-5)
== END 2022-11-14 07:58 | disposition home or self-care (01) ==
PROVIDERS: Emergency Provider Emergency Medicine; PCP Family Medicine
DX: K52.9 Noninfective gastroenteritis and colitis, unspecified (principal); N17.9 Acute kidney failure, unspecified; Z86.16 Personal history of COVID-19; I10 Essential (primary) hypertension; E78.5 Hyperlipidemia, unspecified; Z83.3 Family history of diabetes mellitus; Z82.49 Family history of ischemic heart disease and other diseases of the circulatory system; Z80.9 Family history of malignant neoplasm, unspecified; Z87.891 Personal history of nicotine dependence; Z20.822 Contact with and (suspected) exposure to COVID-19
CPT/HCPCS: 74177; 80053; 81001; 82150; 83605; 83690; 84145; 85007; 85025; 85651; 86140; 96361; 96374; 96375; 99285; C9803; J2405; Q9967; U0003; U0005

== ENCOUNTER → 2023-03-26 10:25 | Outpatient (CLI) | payer MEDICARE, OTHER, SELFPAY ==
--- NOTE | 2023-03-26 10:30 | XR_ITS ---
FINAL REPORT CLINICAL HISTORY: foot pain FINDINGS: AP, oblique and lateral views of the right foot were obtained. There is no prior exam for comparison. There is no acute fracture or dislocation. There is degenerative change noted particularly at the 1st metatarsophalangeal joint. There are hammertoe deformities in the 2nd 3rd and 4th toes.. Soft tissues are normal. IMPRESSION: No acute osseous abnormality of the right foot. Degenerative change in the 1st metatarsophalangeal joint and hammertoe deformities of the 2nd 3rd and 4th toes. Reviewed, Interpreted and Dictated by Iwona Alvarenga MD Transcribed by Caridad Ceja Authenticated and . [facility]
== END ==
PROVIDERS: PCP Family Medicine; Visit Provider Podiatrist
DX: S92.354D Nondisplaced fracture of fifth metatarsal bone, right foot, subsequent encounter for fracture with routine healing (principal)
CPT/HCPCS: 73630

== ENCOUNTER → 2023-06-21 06:56 | Outpatient (CLI) | payer MEDICARE, OTHER, SELFPAY ==
[2023-06-21 07:56] LABS: Alanine Aminotransferase 23 U/L (12-78); Alkaline Phosphatase 85 U/L (38-126); Aspartate Amino Transferase 27 U/L (14-36); Bilirubin,Indirect 0.5 mg/dL (0.0-0.9); Bilirubin,Total 0.5 mg/dl (0.2-1.3); Bilirubin,Unconjugated 0.7 mg/dL (0.0-1.1); Chol/HDL Ratio 1.6 (1-3.5); Cholesterol 170 mg/dl (140-200); HDL Cholesterol 107 mg/dl (40-60); Total Protein,Serum 6.5 g/dl (6.3-8.2); Triglycerides 110 mg/dl (30-150); VLDL Cholesterol 22 mg/dL (0-40)
== END ==
PROVIDERS: PCP Family Medicine; Visit Provider Internal Medicine Interventional Cardiology
DX: E78.00 Pure hypercholesterolemia, unspecified (principal)
CPT/HCPCS: 36415; 80061; 80076

== ENCOUNTER 2023-07-27 20:28 | Emergency (ER) | payer MEDICARE, OTHER, SELFPAY ==
[2023-07-27 20:29] VITALS: BP 136/76; PULSE 64; RESP 20; TEMP 36.9; O2SAT 99; BMI 24.2
--- NOTE | 2023-07-27 21:58 | XR_ITS ---
PROCEDURE INFORMATION: Exam: XR Left Hip Exam date and time: 07/27/2023 10:01 PM Age: 77 years old Clinical indication: Pelvic pain; Additional info: Hip pain TECHNIQUE: Imaging protocol: Radiologic exam of the left hip. Views: 2 or 3 views hip with pelvis when performed. COMPARISON: CT ABDOMEN PELVIS W CON 11/14/2022 3:56 AM FINDINGS: Bones/joints: Avulsion fracture of the tip of the left greater trochanter. Soft tissues: Unremarkable. Vasculature: Vascular calcifications. IMPRESSION: Avulsion fracture of the tip of the left greater trochanter.
--- NOTE | 2023-07-27 22:11 | PC.NURSE ---
pt in [facility], moved from room 11 to [facility]
--- NOTE | 2023-07-27 23:01 | PC.NURSE ---
offered pt transfer to another facility for ortho and pain medication before discharge. pt denied wanting any pain meds or transfer at this time and stated i just want to go home. pt was offered crutches. pt stated she has a set at home as well as a walker and has her around to help her.
[2023-07-27 23:05] VITALS: BP 136/75; PULSE 61; TEMP 36.7; O2SAT 98
--- NOTE | 2023-07-27 23:32 | HMH.EDGENADL ---
Discharge Plan Disposition Patient Disposition: Home, Self-Care Condition: Good Prescriptions Prescriptions: New oxycodone 5 mg tablet 2.5 mg PO Q8H PRN (Reason: pain) Qty: 12 0RF No Action hydroxychloroquine 200 mg tablet 200 mg PO DAILY losartan 100 mg tablet 100 mg PO DAILY Patient Comments: TAKE 1 TABLET BY MOUTH ONCE DAILY hydrochlorothiazide 12.5 mg tablet 12.5 mg PO DAILY Patient Comments: TAKE 1 TABLET BY MOUTH ONCE DAILY carvedilol 12.5 MG tablet 12.5 mg PO BID aspirin 81 MG tablet,delayed release (DR/EC) 81 mg PO DAILY simvastatin 20 MG tablet 20 mg PO HS levothyroxine 112 MCG tablet 112 mcg PO DAILY ezetimibe 10 MG tablet 10 mg PO DAILY ticagrelor 60 mg tablet 60 mg PO BID prednisone 5 mg tablet 5 - 10 mg PO DIRECTED Rx Instructions: 1 tablet every other day alternating with 2 tablets every other day cetirizine 10 mg Capsule 10 mg PO DAILY ondansetron HCl 4 mg Tablet 4 mg PO Q8H PRN (Reason: Nausea) Qty: 20 0RF ondansetron HCl 4 mg Tablet 4 mg PO Q8H PRN (Reason: Nausea) Qty: 20 0RF Referrals Follow up/Referrals: Wyatt Torres MD [Primary Care Provider] - See instructions Activity Restrictions/Add. Instructions Additional Instructions/Restrictions: Please follow-up with your primary care provider to get additional assistance at home such as home health. Please call next week to follow-up with orthopedic surgery. Dr. Lovelace will be back to work on Sunday of next week. Please return to the emergency department if you develop any new or worsening symptoms or become concerned for your health. Please take Tylenol and ibuprofen as needed for pain. Please take oxycodone as needed for more severe pain. Clinical Impressions Clinical Impression: Closed fracture of greater trochanter of femur Qualifiers: Encounter type: initial encounter Fracture alignment: displaced Laterality: left Qualified Code(s): S72.112A - Displaced fracture of greater trochanter of left femur, initial encounter for closed fracture Discharge ED Provider: Karthik Carmona General Adult HPI <Karthik Carmona MD - Last Filed: 07/28/23 04:51> General Chief complaint: Extremity Injury, Lower Stated complaint: hip pain, no known accident Time Seen by Provider: 07/27/23 22:32 Mode of Arrival: Wheelchair Source of Information: Patient Limitations: No Limitations Description of Symptoms (Recalled from ER Triage Doc. by RN): left hip pain since sunday, got worse today at 10 am, no known trauma or injury pt has hx of polymyalgia rheumatica. pt took 2 muscle relaxers at 1730 today and that has helped some. Related Data Home Medications Medication Instructions Recorded Confirmed aspirin 81 mg tablet,delayed 81 mg PO DAILY heart health 04/24/18 03/26/23 release carvedilol 12.5 mg tablet 12.5 mg PO BID Hypertension 04/24/18 03/26/23 ezetimibe 10 mg tablet 10 mg PO DAILY Cholesterol 04/24/18 03/26/23 levothyroxine 112 mcg tablet 112 mcg PO DAILY thyroid 04/24/18 03/26/23 simvastatin 20 mg tablet 20 mg PO HS Cholesterol 04/24/18 03/26/23 hydroxychloroquine 200 mg tablet 200 mg PO DAILY Arthritis 05/11/22 03/26/23 ticagrelor 60 mg tablet 60 mg PO BID PLATELET INHIBITOR 05/11/22 03/26/23 hydrochlorothiazide 12.5 mg tablet 12.5 mg PO DAILY Fluid 06/15/22 03/26/23 losartan 100 mg tablet 100 mg PO DAILY Hypertension 06/15/22 03/26/23 cetirizine 10 mg capsule 10 mg PO DAILY allergies 07/01/22 03/26/23 prednisone 5 mg tablet 5 - 10 mg PO DIRECTED STEROID 07/01/22 03/26/23 Previous Rx's Medication Instructions Recorded ondansetron HCl 4 mg tablet 4 mg PO Q8H PRN Nausea #20 tabs 09/20/22 ondansetron HCl 4 mg tablet 4 mg PO Q8H PRN Nausea #20 tabs 11/14/22 oxycodone 5 mg tablet 2.5 mg PO Q8H PRN pain #12 tabs 07/27/23 Allergies Allergy/AdvReac Type Severity Reaction Status Date / Time Sulfa (Sulfonamide Allergy Unknown V
--- NOTE | 2023-07-27 23:35 | PC.NURSE ---
made rounds nothing neede at this time
[2023-07-27 23:47] VITALS: BP 139/86; PULSE 61; RESP 18; TEMP 36.8; O2SAT 97
== END 2023-07-27 23:49 | disposition home or self-care (01) ==
PROVIDERS: Emergency Provider Emergency Medicine; PCP Family Medicine
DX: S72.112A Displaced fracture of greater trochanter of left femur, initial encounter for closed fracture (principal); M35.3 Polymyalgia rheumatica; I10 Essential (primary) hypertension; E78.5 Hyperlipidemia, unspecified; E03.9 Hypothyroidism, unspecified; Z86.79 Personal history of other diseases of the circulatory system; X58.XXXA Exposure to other specified factors, initial encounter
CPT/HCPCS: 73502; 99283

== ENCOUNTER → 2023-10-09 11:11 | Outpatient (CLI) | payer MEDICARE, OTHER, SELFPAY ==
[2023-10-09 12:37] LABS: Chloride 88 mmol/L (98-107); Potassium 3.9 mmoL/L (3.5-5.1); Sodium 125 mmol/L (136-145)
[2023-10-09 12:40] LABS: Anion Gap 10.9 mEq/L (5-15); Blood Urea Nitrogen 16 mg/dl (7-17); Carbon Dioxide 30 mmol/L (22.0-30.0); Estimated Glomerular Filt Rate 54 ml/min (>60); GFR (African American) 65 ML/MIN (>60)
[2023-10-09 12:41] LABS: Calcium 8.9 mg/dl (8.4-10.2); Glucose 103 mg/dl (74-100)
== END ==
PROVIDERS: PCP Family Medicine; Visit Provider Internal Medicine Interventional Cardiology
DX: I25.10 Atherosclerotic heart disease of native coronary artery without angina pectoris (principal); I10 Essential (primary) hypertension
CPT/HCPCS: 36415; 80048

== ENCOUNTER → 2023-10-17 09:41 | Outpatient (CLI) | payer MEDICARE, OTHER, SELFPAY ==
[2023-10-17 10:25] LABS: Anion Gap 10.1 mEq/L (5-15); Blood Urea Nitrogen 17 mg/dl (7-17); Calcium 8.7 mg/dl (8.4-10.2); Carbon Dioxide 24 mmol/L (22.0-30.0); Chloride 98 mmol/L (98-107); Estimated Glomerular Filt Rate 40 ml/min (>60); GFR (African American) 48 ML/MIN (>60); Glucose 104 mg/dl (74-100); Potassium 4.1 mmoL/L (3.5-5.1); Sodium 128 mmol/L (136-145)
== END ==
LOC: LAB 09:43
PROVIDERS: PCP Family Medicine; Visit Provider Nurse Practitioner Family
DX: I10 Essential (primary) hypertension (principal)
CPT/HCPCS: 36415; 80048

== ENCOUNTER 2023-12-27 06:57 | Outpatient (CLI) | payer MEDICARE, OTHER, SELFPAY ==
[2023-12-27 07:46] LABS: Alanine Aminotransferase 27 U/L (12-78); Albumin Level 4.2 g/dl (3.5-5.0); Alkaline Phosphatase 78 U/L (38-126); Anion Gap 11.6 mEq/L (5-15); Aspartate Amino Transferase 28 U/L (14-36); Bilirubin,Direct 0.1 mg/dl (0.0-0.4); Bilirubin,Indirect 0.6 mg/dL (0.0-0.9); Bilirubin,Total 0.7 mg/dl (0.2-1.3); Bilirubin,Unconjugated 0.5 mg/dL (0.0-1.1); Blood Urea Nitrogen 14 mg/dl (7-17); Calcium 9.4 mg/dl (8.4-10.2); Carbon Dioxide 26 mmol/L (22.0-30.0); Chloride 97 mmol/L (98-107); Chol/HDL Ratio 2.1 (1-3.5); Cholesterol 190 mg/dl (140-200); Estimated Glomerular Filt Rate 61 ml/min (>60); GFR (African American) 74 ML/MIN (>60); Glucose 118 mg/dl (74-100); HDL Cholesterol 90 mg/dl (40-60); Potassium 4.6 mmoL/L (3.5-5.1); Sodium 130 mmol/L (136-145); Total Protein,Serum 6.6 g/dl (6.3-8.2); Triglycerides 118 mg/dl (30-150); VLDL Cholesterol 24 mg/dL (0-40)
[2023-12-27 07:57] LABS: Direct LDL Cholesterol 64.52 mg/dL (100-129)
== END 2023-12-27 23:59 ==
LOC: LAB 06:58
PROVIDERS: PCP Family Medicine; Visit Provider Internal Medicine Interventional Cardiology
DX: E78.00 Pure hypercholesterolemia, unspecified; R73.9 Hyperglycemia, unspecified; R74.01 Elevation of levels of liver transaminase levels
CPT/HCPCS: 36415; 80048; 80061; 80076

== ENCOUNTER 2024-01-30 14:14 | Outpatient (CLI) | payer MEDICARE, OTHER, SELFPAY ==
--- NOTE | 2024-01-30 14:14 | CT_ITS ---
FINAL REPORT TECHNIQUE: Thin section axial CT images with coronal and sagittal reformats were performed. This study was performed with techniques to keep radiation doses as low as reasonably achievable (ALARA). Individualized dose reduction techniques using automated exposure control or adjustment of mA and/or kV according to the patient''s size were employed. CLINICAL HISTORY: Lt Hip Pain COMPARISON: 11/14/2022 FINDINGS: There are moderate degenerative changes. There is chronic calcification in the region of the gluteus medius myotendinous junction which is new since October 2022, may represent sequela of prior injury. There is moderate gluteus medius and severe gluteus minimus muscle atrophy. The gluteus medius atrophy is worse since previous. There is chronic calcification at the lateral iliac crest, may represent sequela of prior injury. There is calcification at the origin of the hamstring tendons. IMPRESSION: Moderate degenerative changes. Chronic calcification in the region of the gluteus medius mild tendinous junction. Reviewed, Interpreted and Dictated by Byron Bishop III, MD Transcribed by Josephine Beckford Authenticated and [facility]
== END 2024-01-30 23:59 | disposition home or self-care (01) ==
LOC: RAD 14:14
PROVIDERS: PCP Family Medicine; Visit Provider Orthopaedic Surgery
DX: S72.112A Displaced fracture of greater trochanter of left femur, initial encounter for closed fracture (principal)
CPT/HCPCS: 73700

== ENCOUNTER 2024-03-19 19:14 | Emergency (ER) | payer MEDICARE, OTHER, SELFPAY ==
--- NOTE | 2024-03-19 19:19 | ED_ITS ---
Discharge Plan Disposition Patient Disposition: Home, Self-Care Condition: Good Prescriptions Prescriptions: No Action hydroxychloroquine 200 mg tablet 200 mg PO DAILY losartan 100 mg tablet 100 mg PO DAILY Patient Comments: TAKE 1 TABLET BY MOUTH ONCE DAILY carvedilol 12.5 MG tablet 12.5 mg PO BID aspirin 81 MG tablet,delayed release (DR/EC) 81 mg PO DAILY simvastatin 20 MG tablet 20 mg PO HS levothyroxine 112 MCG tablet 112 mcg PO DAILY ezetimibe 10 MG tablet 10 mg PO DAILY prednisone 5 mg tablet 5 - 10 mg PO DIRECTED Rx Instructions: 1 tablet every other day alternating with 2 tablets every other day cetirizine 10 mg Capsule 10 mg PO DAILY cyclobenzaprine 10 mg tablet 10 mg PO TID tramadol 50 mg tablet 50 mg PO Q6HP PRN (Reason: Pain) furosemide 20 mg tablet 20 mg PO DAILY Referrals Follow up/Referrals: Wyatt Torres MD [Primary Care Provider] - See instructions Activity Restrictions/Add. Instructions Additional Instructions/Restrictions: Follow-up with your PCP or return to ER for any worsening signs or symptoms as needed. Clinical Impressions Clinical Impression: Skin tear of left upper extremity Contusion of hip, left Qualifiers: Encounter type: initial encounter Qualified Code(s): S70.02XA - Contusion of left hip, initial encounter Contusion of elbow, left Qualifiers: Encounter type: initial encounter Qualified Code(s): S50.02XA - Contusion of left elbow, initial encounter Discharge ED Provider: Xavier Gibson General Adult HPI <EDWAR Moore - Last Filed: 03/19/24 20:28> General Chief complaint: Fall Stated complaint: [id number]/29@[id number] LT hip inj Time Seen by Provider: 03/19/24 19:19 History of Present Illness HPI narrative: Patient is a 78-year-old female presents for evaluation after a fall. Patient has a chronic shoulder injury and is on tramadol and Flexeril and does not move very well and sometimes gets dizzy. Patient was going down a set of 2 stairs and slipped falling onto her left side. She suffered a contusion to her left hip and to her left elbow but is able to bear weight and has full range of motion of her left upper extremity. Patient denies loss of consciousness or striking her head. Related Data Home Medications Medication Instructions Recorded Confirmed aspirin 81 mg tablet,delayed 81 mg PO DAILY heart health 04/24/18 03/19/24 release carvedilol 12.5 mg tablet 12.5 mg PO BID Hypertension 04/24/18 03/19/24 ezetimibe 10 mg tablet 10 mg PO DAILY Cholesterol 04/24/18 03/19/24 levothyroxine 112 mcg tablet 112 mcg PO DAILY thyroid 04/24/18 03/19/24 simvastatin 20 mg tablet 20 mg PO HS Cholesterol 04/24/18 03/19/24 hydroxychloroquine 200 mg tablet 200 mg PO DAILY Arthritis 05/11/22 03/19/24 losartan 100 mg tablet 100 mg PO DAILY Hypertension 06/15/22 03/19/24 cetirizine 10 mg capsule 10 mg PO DAILY allergies 07/01/22 03/19/24 prednisone 5 mg tablet 5 - 10 mg PO DIRECTED STEROID 07/01/22 03/19/24 cyclobenzaprine 10 mg tablet 10 mg PO TID 03/19/24 03/19/24 furosemide 20 mg tablet 20 mg PO DAILY 03/19/24 03/19/24 tramadol 50 mg tablet 50 mg PO Q6HP PRN Pain 03/19/24 03/19/24 Allergies Allergy/AdvReac Type Severity Reaction Status Date / Time Sulfa (Sulfonamide Allergy Unknown Verified 01/31/24 13:23 Antibiotics) [SULFA (SULFONAMIDE ANTIBIOTICS)] [facility] <EDWAR Moore - Last Filed: 03/19/24 20:28> [facility] Disclaimer: The information contained in this section may have been updated after the patient was seen, as this information can be updated by other users. Medical History Hypothyroidism Foot fracture, right Polymyalgia rheumatica syndrome History of back pain History of left heart catheterization Hyperlipidemia Hypertension Cataract COVID-19 COVID-19 Closed fracture of fourth metatarsal of right foot Nondisplaced fracture of fifth right metatarsal bone with routine healing Myocardial infarction HLD (hyperlipidemia) Surgical History Previous back surgery H/O thyroidectomy History of appendectomy History of hysterectomy History of tonsillectomy Family History Other Cancer Heart attack Hypertension Social History Smoking Status: Unknown if ever smoked years smoked: 40 how long ago did patient quit smokin years alcohol intake: never substance use type: denies use current occupational status: retired Travel in the last 8 weeks: None caregiver/support person: Yes () household members: spouse housing: house marital status: special marvin needs: No <EDWAR Moore - Last Filed: 03/19/24 20:28> ROS Obtained: Yes Systems reviewed as appropriate & no additional complaints except as documented Physical Exam <EDWAR Moore Last Filed: 03/19/24 20:28> General General appearance: alert and in no apparent distress Head Head exam: atraumatic and normal inspection Eye Eye exam: Present normal appearance, PERRL and EOMI ENT ENT exam: Present normal exam, normal oropharynx and mucous membranes moist Neck Neck exam: Present normal inspection and full ROM; Absent tenderness Respiratory Respiratory exam: Present normal lung sounds bilaterally Cardiovascular Cardiovascular exam: Present regular rate and normal rhythm Extremities Exam Extremities exam: Present normal inspection, full ROM and tenderness (At the left elbow and the left hip) Back Exam Back exam: Present normal inspection and full ROM; Absent tenderness Neurological Exam Neurological exam: Present alert, oriented X3 and CN II-XII intact Skin Skin exam: Present warm, dry and normal color; Absent intact (Patient has 3 skin tears to around the elbow and 1 in the mid forearm of her left upper extremity) Medical Decision Making <EDWAR Moore Last Filed: 03/19/24 20:28> Medical Records Medical records reviewed: Yes I reviewed the patient's medical records. Michael Inquiry Pt receiving controlled substance: No Vital Signs: 03/19/24 19:20 03/19/24 19:27 03/19/24 20:36 Temperature 98.2 F 97.9 F Temperature Source Oral Oral Pulse Rate 84 72 Pulse Rate [Right Brachial] 85 Respiratory Rate 18 16 17 Blood Pressure 172/109 H 165/77 H Blood Pressure [Right Arm] 172/109 H Blood Pressure Mean [Right Arm] 130 Blood Pressure Source [Right Arm] Automatic Cuff Blood Pressure Position [Right Arm] Sitting 02 Sat by Pulse Oximetry 99 96 Oxygen Delivery Method Room Air Room Air Room Air Lab Data Lab results reviewed: Yes I reviewed the patient's lab results. Orders (Tests/Meds): ED MEDICATIONS Discontinued Medications Generic Name Dose Route Start Last Admin Trade Name Bam PRN Reason Stop Dose Admin Acetaminophen 1,000 mg 03/19/24 19:20 03/19/24 19:34 Acetaminophen 500mg Tab PO 03/19/24 19:21 1,000 mg ONCE ONE Administration Ibuprofen 800 mg 03/19/24 19:20 03/19/24 19:36 Ibuprofen 400 Mg Tablet PO 03/19/24 19:21 Not Given ONCE ONE ORDERS Category Date Time Status Elbow XR left mininum 3 views [XR elbow LT min 3V] Stat Exams 03/19/24 19:31 Completed Hip XR left minimum 2 views [XR hip LT 2-3V w/pelvis] Exams 03/19/24 19:20 Completed Stat Humerus XR left [XR humerus LT] Stat Exams 03/19/24 19:31 Completed XR forearm LT 2V Stat Exams 03/19/24 19:31 Completed Medical Decision Narrative: In summary patient is a 78-year-old female who presents to the emergency department for evaluation of a fall. Patient is hemodynamically stable upon arrival, afebrile. Zickel exam is remarkable for tenderness to palpation around left hip/gluteus and tenderness to palpation at the olecranon of the left upper extremity with 3 skin tears in the same 2 at the elbow and 1 in the mid forearm. Patient can actually bear weight and transfer from wheelchair to bed without assistance although she appears to be slightly unsteady on her feet. No painful range of motion and she is neurovascular intact in the bilateral upper and lower extremities. Differential diagnosis includes contusion versus occult fracture. Initial workup will be conducted with plain film x-rays. Initial interventions include acetaminophen. Initial workup reviewed by me and my informal interpretation of her plain film x-rays shows osteopenia osteoporosis but no evidence of acute osseous abnormality in either her left upper extremity or left hip. Upon repeat evaluation patient still can weight-bear. Given this appropriate for discharge with follow-up with her PCP return to ER for any worsening signs or symptoms. <Xavier Gibson MD - Last Filed: 03/19/24 22:05> Vital Signs: 03/19/24 19:20 03/19/24 19:27 03/19/24 20:36 Temperature 98.2 F 97.9 F Temperature Source Oral Oral Pulse Rate 84 72 Pulse Rate [Right Brachial] 85 Respiratory Rate 18 16 17 Blood Pressure 172/109 H 165/77 H Blood Pressure [Right Arm] 172/109 H Blood Pressure Mean [Right Arm] 130 Blood Pressure Source [Right Arm] Automatic Cuff Blood Pressure Position [Right Arm] Sitting 02 Sat by Pulse Oximetry 99 96 Oxygen Delivery Method Room Air Room Air Room Air Orders (Tests/Meds): ED MEDICATIONS Discontinued Medications Generic Name Dose Route Start Last Admin Trade Name Bam PRN Reason Stop Dose Admin Acetaminophen 1,000 mg 03/19/24 19:20 03/19/24 19:34 Acetaminophen 500mg Tab PO 03/19/24 19:21 1,000 mg ONCE ONE Administration Ibuprofen 800 mg 03/19/24 19:20 03/19/24 19:36 Ibuprofen 400 Mg Tablet PO 03/19/24 19:21 Not Given ONCE ONE ORDERS Category Date Time Status Elbow XR left mininum 3 views [XR elbow LT min 3V] Stat Exams 03/19/24 19:31 Completed Hip XR left minimum 2 views [XR hip LT 2-3V w/pelvis] Exams 03/19/24 19:20 Completed Stat Humerus XR left [XR humerus LT] Stat Exams 03/19/24 19:31 Completed XR forearm LT 2V Stat Exams 03/19/24 19:31 Completed Medical Decision Narrative: In summary patient is a 78-year-old female who presents to the emergency department for evaluation of a fall. Patient is hemodynamically stable upon arrival, afebrile. Zickel exam is remarkable for tenderness to palpation around left hip/gluteus and tenderness to palpation at the olecranon of the left upper extremity with 3 skin tears in the same 2 at the elbow and 1 in the mid forearm. Patient can actually bear weight and transfer from wheelchair to bed without assistance although she appears to be slightly unsteady on her feet. No painful range of motion and she is neurovascular intact in the bilateral upper and lower extremities. Differential diagnosis includes contusion versus occult fracture. Initial workup will be conducted with plain film x-rays. Initial interventions include acetaminophen. Initial workup reviewed by me and my informal interpretation of her plain film x-rays shows osteopenia osteoporosis but no evidence of acute osseous abnormality in either her left upper extremity or left hip. Upon repeat evaluation patient still can weight-bear. Given this appropriate for discharge with follow-up with her PCP return to ER for any worsening signs or symptoms. I was consulted by the OWEN, and we discussed the complexity of the problems being addressed. I approved the treatment and management plan for this patient?s care in the Emergency Department, thus performing a substantive portion of the medical decision making. Xavier Gibson MD Critical Care <EDWAR Moore - Last Filed: 03/19/24 20:28> Critical Care Time Critical Care Time: No
[2024-03-19 19:20] VITALS: BP 172/109; PULSE 84; RESP 18; O2SAT 99
--- NOTE | 2024-03-19 19:20 | XR_ITS ---
PROCEDURE INFORMATION: Exam: XR Left Hip Exam date and time: 03/19/2024 7:44 PM Age: 78 years old Clinical indication: Injury or trauma; Fall; Blunt trauma (contusions or hematomas); Left; Hip; Additional info: Left hip injury TECHNIQUE: Imaging protocol: Radiologic exam of the left hip. Views: 2 or 3 views hip with pelvis when performed. COMPARISON: CT HIP LT WO CON 01/30/2024 2:40 PM FINDINGS: Bones/joints: Moderate osteophytosis and degenerative changes involve the bilateral hips. No evidence of acute osseous abnormality. Soft tissues: Unremarkable. IMPRESSION: 1. Moderate osteophytosis and degenerative changes involve the bilateral hips. 2. No evidence of acute osseous abnormality. Recommend further evaluation with CT if there is clinical concern for occult fracture.
[2024-03-19 19:27] VITALS: BP 172/109; PULSE 85; RESP 16; TEMP 36.8; O2SAT 96; BMI 24.5
--- NOTE | 2024-03-19 19:31 | XR_ITS ---
PROCEDURE INFORMATION: Exam: XR Left Forearm Exam date and time: 03/19/2024 7:37 PM Age: 78 years old Clinical indication: Injury or trauma; Fall; Blunt trauma (contusions or hematomas); Arm, lower; Left TECHNIQUE: Imaging protocol: Radiologic exam of the left forearm. Views: 2 views. COMPARISON: CR [id number] XR hand LT min 3V 10/26/2018 9:25 AM FINDINGS: Bones/joints: See Soft tissues finding. Soft tissues: Mild soft tissue swelling without acute osseous abnormality. IMPRESSION: Mild soft tissue swelling without acute osseous abnormality.
--- NOTE | 2024-03-19 19:31 | XR_ITS ---
PROCEDURE INFORMATION: Exam: XR Left Elbow Exam date and time: 03/19/2024 7:38 PM Age: 78 years old Clinical indication: Injury or trauma; Fall; Blunt trauma (contusions or hematomas); Elbow; Left TECHNIQUE: Imaging protocol: Radiologic exam of the left elbow. Views: 3 or more views. COMPARISON: CR XR FOREARM LT 2V 03/19/2024 7:37 PM FINDINGS: Bones/joints: See Soft tissues finding. Soft tissues: Mild soft tissue swelling without acute osseous abnormality. IMPRESSION: Mild soft tissue swelling without acute osseous abnormality.
--- NOTE | 2024-03-19 19:31 | XR_ITS ---
PROCEDURE INFORMATION: Exam: XR Left Humerus Exam date and time: 03/19/2024 7:32 PM Age: 78 years old Clinical indication: Injury or trauma; Fall; Blunt trauma (contusions or hematomas); Arm, upper; Left TECHNIQUE: Imaging protocol: Radiologic exam of the left humerus. Views: 2 or more views. COMPARISON: CR XR CHEST PORTABLE 07/01/2022 7:10 PM FINDINGS: Bones/joints: Moderate osteophytosis and degenerative changes involve the left AC joint. Soft tissues: Mild soft tissue swelling without acute osseous abnormality. IMPRESSION: Mild soft tissue swelling without acute osseous abnormality.
[2024-03-19] MEDS: ACETAMINOPHEN 500MG TAB 1000 MG PO (19:34)
--- NOTE | 2024-03-19 19:38 | PC.NURSE ---
family present at bedside. patient taken to rad via wc.
[2024-03-19 20:36] VITALS: BP 165/77; PULSE 72; RESP 17; TEMP 36.6; O2SAT 97
== END 2024-03-19 20:49 | disposition home or self-care (01) ==
PROVIDERS: Emergency Provider Emergency Medicine; PCP Family Medicine
DX: S70.02XA Contusion of left hip, initial encounter (principal); S50.02XA Contusion of left elbow, initial encounter; S51.002A Unspecified open wound of left elbow, initial encounter; S51.802A Unspecified open wound of left forearm, initial encounter; W10.8XXA Fall (on) (from) other stairs and steps, initial encounter
CPT/HCPCS: 73060; 73080; 73090; 73502; 99284

== ENCOUNTER 2024-04-29 13:32 | Outpatient (CLI) | payer MEDICARE, OTHER, SELFPAY ==
--- NOTE | 2024-04-29 13:35 | MR_ITS ---
FINAL REPORT CLINICAL HISTORY: CERVICAL RADICULOPATHY. RIGHT SIDED NECK PAIN. NUMBNESS 5TH DIGIT IN RIGHT HAND FINDINGS: Multiplanar MR imaging of the cervical spine was performed without contrast. On the sagittal T2-weighted images, disc degeneration is seen throughout. There is partial fusion of C4-5. There is no evidence of fracture. The vertebral alignment is normal. The cervical spinal cord has an unremarkable appearance without evidence of mass, edema or syrinx. The cervicomedullary junction is normal. C2-3: An annular disc bulge is present with mild bilateral neural foraminal narrowing. C3-4: Disc osteophyte complex is present with severe bilateral neural foraminal narrowing. There is mild central canal stenosis with an AP diameter of the thecal sac of 9 mm. C4-5: Disc osteophyte complex is present with moderate left neural foraminal narrowing. C5-6: Disc osteophyte complex is present. There is bilateral facet arthropathy. There is severe bilateral neural foraminal narrowing. There is mild central canal stenosis with an AP diameter of the thecal sac of 9 mm. C6-7: Disc osteophyte complex and facet arthropathy are present. There is severe bilateral neural foraminal narrowing. There is mild central canal stenosis with an AP diameter of the thecal sac of 9 mm. C7-T1: Disc osteophyte complex is present with mild bilateral neural foraminal narrowing. 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 Reviewed, Interpreted and Dictated by Byron Bishop III, MD Transcribed by Josephine Beckford Authenticated and [facility]
== END 2024-04-29 23:59 | disposition home or self-care (01) ==
LOC: RAD 13:32
PROVIDERS: PCP Family Medicine; Visit Provider Family Medicine
DX: M54.12 Radiculopathy, cervical region (principal)
CPT/HCPCS: 72141

== ENCOUNTER 2024-05-20 09:01 | Outpatient (CLI) | payer MEDICARE, OTHER, SELFPAY ==
[2024-05-20 09:37] LABS: Anion Gap 11.8 mEq/L (5-15); Blood Urea Nitrogen 15 mg/dl (7-17); Calcium 9.3 mg/dl (8.4-10.2); Carbon Dioxide 24 mmol/L (22.0-30.0); Chloride 96 mmol/L (98-107); Estimated Glomerular Filt Rate 61 ml/min (>60); GFR (African American) 73 ML/MIN (>60); Glucose 112 mg/dl (74-100); Potassium 4.8 mmoL/L (3.5-5.1); Sodium 127 mmol/L (136-145)
== END 2024-05-20 23:59 | disposition home or self-care (01) ==
LOC: LAB 09:02
PROVIDERS: PCP Family Medicine; Visit Provider Internal Medicine Interventional Cardiology
DX: E78.5 Hyperlipidemia, unspecified (principal)
CPT/HCPCS: 36415; 80048

== ENCOUNTER 2024-06-11 11:00 | Outpatient (RCR) | payer MEDICARE, OTHER, SELFPAY ==
--- NOTE | 2024-04-03 12:40 | HMH.PTOPEV ---
PT Outpatient Evaluation Rehab PT Outpatient Evaluation Start: 04/03/24 11:11 Freq: Status: Active Protocol: Document 04/03/24 11:11 PDESEROUKorey (Rec: 04/03/24 12:40 PDESEROUX [id number]) E-signed By Edward Garcia, PT Outpatient Therapy Subjective History Subjective History Pt. is a 78 year old female who presents to [facility] in [place] for the initial evaluation this date( 04/03/24) w/ c/o constant and acute LLE hip P!, weakness, and giving out of traumatic onset 2 weeks ago secondary to a fall. Pt. reports she was stepping down her 4 steps from the porch to her garage when she mistepped on the last step resulting in a fall hitting the front of her car and then landing on the floor where she was laying on my left side. Recent diagnostic imaging of the LLE hip negative for a fx. per pt. report. Pt. reports, I don't have any pain sitting here, however, states P! will increase to a 9/10 w/ ambulation, standing up, and lifting her leg into the vehicle/bed. Pt. describes the P! and sharp and stabbing that is localized to posterior hip and groin region. Pt. will c/o intermittent LLE radiating P! to the foot, but states that is not constant. Pt. denies having any injections for current complaint. However, pt. reports having an injection from Dr. Lovelace regarding hx. of LLE hip P! that provided complete symptom relief just 30 minutes later. Pt. reports ambulating w/ FWW currently whereas PLOF she was IND. w/ ADLs w/o AD prior to this fall . Pt. denies hitting her head nor loss of consciousness w/ fall. Pt. also c/o subacute and constant RUE shldr. P!, however, states the fall has made no difference in RUE shldr. P!, states she would like to focus attention on the LLE hip at the moment. Current medications include Levothyroxine, Prednisone, steroid shot, Tramadol, and Tylenol. 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 New diagnosis of cancer in past 12 No months? Chief Complaint Pain,Stiff,Catches/Locks,Gives out/Unstable,Paresthesia, Weakness Symptom Type Throb,Sharp,Stabbing,Shooting Symptoms Relieved By Rest/Positioning,Heat,OTC Meds Symptoms Aggravated By Standing,Bending/Stooping, Physical Activity,Twisting, Walking,Lifting Prior Functional Limitations None Current Functional Limitations Lifting,Dressing,Standing, Squatting,Recreation Activity, Walking,Stairs,Bending/ Stooping Symptom Description Constant but Variable,Activity Dependent Level of pain today (0-10) 0 Pain scale - at its best (0-10) 0 Pain scale - at its worst (0-10) 9 Hip/Knee Eval Gait Observation General Gait Pattern Observation Antalgic Gait,Shuffling Step, Decrease Weight Bear (L), Decrease Stride Lngth (R) Assistive Device Assistive Devices Rolling / Wheeled Walker Palpation Tenderness left Knee Palpation Overall Comment grade 4 +TTP to grtr. trchntr. , adductor mms. group, piriformis mm. Hip Palpation Findings Tenderness MMT Hip Flexion Strength Grade 3+ Fair+ Hip Abduction Strength Grade 3+ Fair+ Hip Adduction Strength Grade 3+ Fair+ Hip Extension Strength Grade 3+ Fair+ Gluteus Ap Strength Grade 3+ Fair+ Hip External Rotation Strength Grade 3 Fair Hip Internal Rotation Strength Grade 3 Fair Knee Extension Strength Grade 4- Good- Knee Flexion Strength Grade 4- Good- Hip Extensors Muscle Tone Description Severe Hypertonicity Hip Flexors Muscle Tone Description Severe Hypertonicity ROM Hip Flexion w/Knee Flexed Active Range 21 of Motion (degrees) Hip Flexion w/Knee Flexed Passive Range 49 of Motion (degrees) Hip Abduction Active Range of Motion ( 9 degrees) Hip Abduction Passive Range of Motion ( 11 degrees) Hip Extension Active Range of Motion ( 9 degrees) Hip Extension Passive Range of Motion ( 13 degrees) Hip External Rotation Active Range of 9 Motion (degrees) Hip External Rotation Passive Range of 18 Motion (degrees) Hip Internal Rotation Active Range of 16 Motion (degrees) Hip Internal Rotation Passive Range of 19 Motion (degrees) Hip ROM Limitations Soft Tissue Tightness,Pain, Muscle Weakness,Tightness on Left,Pain on Left Sensation Comment light touch discrimination vocalized symmetrical in BLEs grossly Special Tests Hip Piriformis Test Positive Left Sciatic Nerve Tension Test Positive Left Hip Scouring (Quadrant) Test Positive Left Outpatient Therapy Assessment Impairments Problems/Impairmments Palpation Tenderness,Impaired Range of Motion,Impaired Strength,Impaired Endurance, Impaired Transfers,Impaired Gait Pattern,Impaired Walking, Impaired Standing,Impaired Lifting,Impaired Dressing, Impaired Stair Climbing, Impaired Recreational Activities,Impaired Work Activities,Increased Edema, Subjective C/O Pain,Impaired Self Care/Self Management Prognosis Rehab Potential Good Comment w/ HEP compliancy Clinical Impression Consistent with Diagnosis Yes Consistent with LLE hip OA Short Term Goals Number of Weeks 2 Decreased Palpation Tenderness Yes: grade 1-2 +TTP to TTP assessment above Decrease Subjective C/O Pain Yes: worse:02/28 Patient to be Ind w/ HEP Yes Tree Wrapper Goals Number of Weeks 4-6 Decreased Palpation Tenderness Yes: grade 1 +TTP to TTP assessment above Increase Range of Motion Yes: LLE hip A/PROM WFL grossly w/o difficulty Increase Strength Yes: LLE hip MMT scores 4+ to 5/5 grossly w/o difficulty Improve Transfers Yes: sit<>stand to step w/o AD w/o difficulty w/ IND. Improve Gait Pattern without Assistive Yes Device Increase Ability to Walk Yes Increase Ability to Stand Yes Improve Ability to Dress Self Yes: Pt. will be able to dress /undress self IND. w/o difficulty Improve Ability to Shower/Bathe Self Yes: Pt. will be able to bathe self IND. w/ odifficulty Improve Ability to Climb Stairs Yes: Pt. will be able to negotiate stairs in her house IND. w/o AD w/o difficult Return to Recreational Activities Yes: Pt. will be able to return to caring for w /o difficulty or PLOF Improve LEFI Score Yes Decrease Subjective C/O Pain Yes: worse:-12/01 Patient to be Ind w/ Advanced HEP Yes Outpatient Therapy Plan of Care Treatment Plan May Include Therapeutic Exercise Including Home Yes Exercise Program Manual Therapy Techniques Yes Neuromuscular Re-education Yes Therapeutic Activities to Return to Yes Previous Functional/Work Level Gait Training Yes ADL/Self Care Education Yes Dry Needling Yes Thermal Modalities Yes Electrical Stimulation Yes Ultrasound/Phonophoresis Yes Iontophoresis Yes Vasopneumatic Compression Pump Yes Massage Yes Eval/Re-Eval Yes Aquatic Therapy Yes Frequency Times per week 2 Duration Number of Weeks 4-6 Addendums This patient is a candidate for social No or vocational rehab? Patient/Guardian verbally acknowledges Yes understanding of treatment program and consents to further treatment? Patient/Guardian verbally acknowledges Yes understanding of diagnosis, prognosis and goals for treatment? Eval Complexity PT Charges 83502 - Moderate Complexity Shoulder/Elbow Eval Shoulder Objective Measurements Elbow Objective Measurements PHYSICIAN CERTIFICATION: I certify the specified therapy services for Andry Culp are required, authorized, and reviewed every 30 days.
== END 2024-06-18 08:45 | disposition home or self-care (01) ==
LOC: PT 11:00
PROVIDERS: Visit Provider Family Medicine
DX: M62.838 Other muscle spasm (principal); R26.0 Ataxic gait; M05.741 Rheumatoid arthritis with rheumatoid factor of right hand without organ or systems involvement
CPT/HCPCS: 97010; 97014; 97110; 97140; 97163; 97164; 97530; G0283

== ENCOUNTER 2024-06-29 18:22 | Emergency (ER) | payer MEDICARE, OTHER, SELFPAY ==
[2024-06-29 18:22] VITALS: BP 107/88; PULSE 88; RESP 18; TEMP 36.9; O2SAT 96; BMI 24.2
--- NOTE | 2024-06-29 18:23 | XR_ITS ---
PROCEDURE INFORMATION: Exam: XR Right Femur Exam date and time: 06/29/2024 6:29 PM Age: 78 years old Clinical indication: Injury or trauma; Fall; Blunt trauma; Hip; Right TECHNIQUE: Imaging protocol: Radiologic exam of the right femur. Views: 2 views. COMPARISON: CR XR HIP RT 2-3V W/PELVIS 06/29/2024 6:29 PM FINDINGS: Bones/joints: Mildly displaced right superior and inferior pubic rami fractures. Mildly displaced fibular neck fracture with subtle periosteal reaction. No femur fracture. Mild degenerative change of the right hip and right knee. Osteopenia. Soft tissues: Unremarkable. Vasculature: Extensive atherosclerotic plaque. IMPRESSION: 1. Mildly displaced right superior and inferior pubic rami fractures. 2. Mildly displaced fibular neck fracture with subtle periosteal reaction consistent with a healing fracture.
--- NOTE | 2024-06-29 18:23 | XR_ITS ---
PROCEDURE INFORMATION: Exam: XR Right Hip Exam date and time: 06/29/2024 6:29 PM Age: 78 years old Clinical indication: Injury or trauma; Fall; Blunt trauma (contusions or hematomas); Right; Hip TECHNIQUE: Imaging protocol: Radiologic exam of the right hip. Views: 2 or 3 views hip with pelvis when performed. COMPARISON: CR XR HIP RT 2-3V W/PELVIS 06/29/2024 6:29 PM FINDINGS: Bones/joints: Mildly displaced acute right superior and inferior pubic rami fractures. Mildly displaced healing left superior and inferior pubic rami fractures. No femoral fracture. Mild degenerative change of the bilateral hips. Sclerosis in the bilateral sacral ala. Osteopenia. Soft tissues: Unremarkable. Vasculature: Severe atherosclerotic disease. IMPRESSION: 1. Mildly displaced acute right superior and inferior pubic rami fractures. 2. Mildly displaced healing left superior and inferior pubic rami fractures. 3. Sclerosis in the bilateral sacral ala is likely due to chronic insufficiency fractures.
--- NOTE | 2024-06-29 18:23 | ED_ITS ---
Discharge Plan Disposition Patient Disposition: Xfer Short-Term Hosp Condition: Good Prescriptions Prescriptions: No Action hydroxychloroquine 200 mg tablet 200 mg PO DAILY losartan 100 mg tablet 100 mg PO DAILY Patient Comments: TAKE 1 TABLET BY MOUTH ONCE DAILY carvedilol 12.5 MG tablet 12.5 mg PO BID simvastatin 20 MG tablet 20 mg PO HS levothyroxine 112 MCG tablet 112 mcg PO DAILYDM ezetimibe 10 MG tablet 10 mg PO DAILY prednisone 5 mg tablet 5 mg PO Q2D Rx Instructions: 1 tablet every other day alternating with 2 tablets every other day cetirizine 10 mg Capsule 10 mg PO DAILY cyclobenzaprine 10 mg tablet 10 mg PO TID ondansetron HCl 4 mg tablet 4 mg PO DAILYP PRN (Reason: Nausea And Vomiting) prednisone 5 mg tablet 10 mg PO Q2D Rx Instructions: EVERY OTHER DAY, ALTERNATING WITH 5 MG TABLET potassium chloride 10 mEq capsule, extended release 10 meq PO DAILY Qty: 30 0RF Referrals Follow up/Referrals: Wyatt Torres MD [Primary Care Provider] - See instructions Activity Restrictions/Add. Instructions Additional Instructions/Restrictions: To [place] [facility] care of Dr. Bird Clinical Impressions Clinical Impression: Multiple fractures of pelvis with disruption of pelvic ring Qualifiers: Encounter type: initial encounter Fracture type: closed Qualified Code(s): S 32.810A - Multiple fractures of pelvis with stable disruption of pelvic ring, initial encounter for closed fracture Stand Alone Forms Stand Alone Forms: Transfer Record - ED Print Language Print Language: Korean Discharge ED Provider: Xavier Gibson General Adult HPI <EDWAR Moore - Last Filed: 06/29/24 21:26> General Chief complaint: Fall Stated complaint: Fall Time Seen by Provider: 06/29/24 18:23 History of Present Illness HPI narrative: UnablePatient presents for evaluation of a fall. Patient states that she missed a step and then the anterior of her home falling to the ground on the right side. She felt a sharp pain about the right hip and groin arise and hence called EMS. She did not lose consciousness did not strike her head has no other complaints at the time of my exam. She has no chest pain shortness of breath fever chills hemoptysis patches of melena nausea vomit diarrhea. Related Data Home Medications ?Medication ?Instructions ?Recorded ?Confirmed carvedilol 12.5 mg tablet 12.5 mg PO BID 04/24/18 06/01/24 ezetimibe 10 mg tablet 10 mg PO DAILY 04/24/18 06/01/24 levothyroxine 112 mcg tablet 112 mcg PO DAILYDM 04/24/18 06/01/24 simvastatin 20 mg tablet 20 mg PO HS Cholesterol 04/24/18 06/01/24 hydroxychloroquine 200 mg tablet 200 mg PO DAILY 05/11/22 06/01/24 losartan 100 mg tablet 100 mg PO DAILY Hypertension 06/15/22 06/01/24 cetirizine 10 mg capsule 10 mg PO DAILY 07/01/22 06/01/24 prednisone 5 mg tablet 5 mg PO Q2D STEROID 07/01/22 06/01/24 cyclobenzaprine 10 mg tablet 10 mg PO TID 03/19/24 06/01/24 ondansetron HCl 4 mg tablet 4 mg PO DAILYP PRN Nausea And 06/01/24 06/01/24 Vomiting prednisone 5 mg tablet 10 mg PO Q2D 06/01/24 06/01/24 Previous Rx's ?Medication ?Instructions ?Recorded potassium chloride 10 mEq 10 meq PO DAILY #30 caps 06/02/24 capsule,extended release Allergies Allergy/AdvReac Type Severity Reaction Status Date / Time Sulfa (Sulfonamide Allergy Unknown Verified 04/29/24 13:10 Antibiotics) [SULFA (SULFONAMIDE ANTIBIOTICS)] Penicillins Allergy Verified 06/01/24 06:51 [facility] <EDWAR Moore - Last Filed: 06/29/24 21:26> [facility] Disclaimer: The information contained in this section may have been updated after the patient was seen, as this information can be updated by other users. Medical History (Updated 06/29/24 @ 20:19 by EDWAR Moore) Trochanteric bursitis, right hip Skin tear of left upper extremity Contusion of elbow, left Contusion of hip, left Trochanteric bursitis, left hip Pain around toenail, right foot Ingrown toenail of right foot Closed nondisplaced fracture of fifth right metatarsal bone MARY (acute kidney injury) Enteritis Closed fracture of greater trochanter of femur Rheumatoid arthritis CAD (coronary artery disease) Hypothyroidism Foot fracture, right Polymyalgia rheumatica syndrome History of back pain History of left heart catheterization Hyperlipidemia Hypertension Cataract COVID-19 Closed fracture of fourth metatarsal of right foot Nondisplaced fracture of fifth right metatarsal bone with routine healing Myocardial infarction HLD (hyperlipidemia) Surgical History (Updated 06/01/24 @ 12:19 by Channing Garcia MD) H/O cataract removal with insertion of prosthetic lens History of heart artery stent Previous back surgery H/O thyroidectomy History of appendectomy History of hysterectomy History of tonsillectomy Family History Other Cancer Heart attack Hypertension Social History (Updated 06/01/24 @ 07:05 by Kelli Fatima RN) Smoking Status: Never smoker years smoked: 40 how long ago did patient quit smokin years alcohol intake: never substance use type: denies use current occupational status: retired Travel in the last 8 weeks: None caregiver/support person: Yes () household members: spouse housing: house marital status: special marvin needs: No <EDWAR Moore - Last Filed: 06/29/24 21:26> ROS Obtained: Yes Systems reviewed as appropriate & no additional complaints except as documented Physical Exam <EDWAR Moore - Last Filed: 06/29/24 21:26> General General appearance: alert and in no apparent distress Respiratory Respiratory exam: Present normal lung sounds bilaterally Cardiovascular Cardiovascular exam: Present regular rate Neurological Exam Neurological exam: Present alert and oriented X3 Medical Decision Making <EDWAR Moore - Last Filed: 06/29/24 21:26> Medical Records Medical records reviewed: Yes I reviewed the patient's medical records. Michael Inquiry Pt receiving controlled substance: No Vital Signs: 06/29/24 18:22 06/29/24 20:30 06/29/24 21:00 Temperature 98.4 F Temperature Source Oral Pulse Rate 69 63 Pulse Rate [Right] 88 Respiratory Rate 18 Blood Pressure 122/82 121/70 Blood Pressure [Right Arm] 107/88 L Blood Pressure Mean [Right Arm] 94 02 Sat by Pulse Oximetry 96 95 96 06/29/24 21:38 06/29/24 22:00 Temperature Temperature Source Pulse Rate 68 67 Pulse Rate [Right] Respiratory Rate Blood Pressure 83/54 L 109/66 L Blood Pressure [Right Arm] Blood Pressure Mean [Right Arm] 02 Sat by Pulse Oximetry 95 87 L Lab Data Lab results reviewed: Yes I reviewed the patient's lab results. Lab Results 06/29/24 20:25: WBC 11.5 H, RBC 3.32 L, Hgb 12.3, Hct 38.1, MCV 114.7 H, MCH 36.9 H, MCHC 32.2, RDW 13.7, Plt Count 261, MPV 7.6, Neut % (Auto) 80.4 H, Lymph % (Auto) 11.6, [place] % (Auto) 6.0, Eos % (Auto) 1.0, Baso % (Auto) 1.0, Neut # (Auto) 9.3 H, Lymph # (Auto) 1.3, [place] # (Auto) 0.7, Eos # (Auto) 0.1, Baso # (Auto) 0.1, Sodium 123 L, Potassium 3.3 L, Chloride 93 L, Carbon Dioxide 26, Anion Gap 7.3, BUN 19 H, Creatinine 0.80, Estimated Creat Clear 51, Estimated GFR 70, Est GFR ( Amer) 84, Glucose 106 H, Calcium 8.3 L, Total Bilirubin 0.6, AST 29, ALT 23, Alkaline Phosphatase 106, Total Protein 6.4, Albumin 3.8, Globulin 2.6, Albumin/Globulin Ratio 1.5 06/29/24 20:25 06/29/24 20:25 Orders (Tests/Meds): ED MEDICATIONS Generic Name Dose Route Start Last Admin Trade Name Freq PRN Reason Stop Dose Admin Sodium Chloride 1,000 mls @ 999 mls/hr 06/29/24 23:11 Sod Chlor 0.9% 1000ml Bag IV 06/30/24 00:11 .Q1H1M ONE Potassium Chloride 60 meq 06/29/24 23:11 Potassium Chloride 20meq Tab PO 06/29/24 23:12 ONCE ONE Discontinued Medications Generic Name Dose Route Start Last Admin Trade Name Freq PRN Reason Stop Dose Admin Bacitracin 1 gm 06/29/24 21:09 06/29/24 21:13 Bacitracin Zinc Oint 30gm Tube TP 06/29/24 21:10 1 gm ONCE ONE Administration Ondansetron HCl 4 mg 06/29/24 21:41 06/29/24 21:52 Ondansetron 4mg/2ml Vial IV 06/29/24 21:42 4 mg ONCE ONE Administration Promethazine HCl 12.5 mg 06/29/24 22:36 06/29/24 22:40 Promethazine Hcl 25mg/Ml 1ml Vial IV 06/29/24 22:37 12.5 mg ONCE ONE Administration Sodium Chloride 25 ml 06/29/24 22:36 06/29/24 22:41 Sodium Chloride 0.9% 25ml Bag IV 06/29/24 22:37 25 ml ONCE ONE Administration ORDERS Category Date Time Status CT bony pelvis Stat Cat Scan 06/29/24 19:[address] lumbar spine wo con Stat Cat Scan 06/29/24 19:17 Completed Femur XR right 2 views [XR femur RT 2V] Stat Exams 06/29/24 18:23 Completed Hip XR right minimum 2 views [XR hip RT 2-3V w/pelvis] Exams 06/29/24 18:23 Completed Stat CBC w/Auto Diff [Complete Blood Count Auto Diff] Stat Lab 06/29/24 20:25 Completed CMP [Comprehensive Metabolic Panel] Stat Lab 06/29/24 20:25 Completed Medical Decision Narrative: In summary patient is a 78-year-old female who presents to the emergency department for evaluation of a fall in her home. Patient is hemodynamically stable upon arrival, afebrile. Physical exam is remarkable for tenderness at the right lateral hip however pelvis is stable to compression, patient has a skin tear that is new to the anterior right patella and right elbow however there is full range of motion and no bony deformity. Patient has full range of motion of the right lower extremity and can actually elevate off the bed without pain and reports soreness at the right hip. Patient has multiple areas of ecchymosis over her bilateral lower extremities however the patient reports that that has been going on for months .. Differential diagnosis includes contusion versus fracture. Initial workup will be conducted with plain film x-rays and CT scan of the hip pelvis and lumbar spine. Initial interventions include Tylenol Toradol. Initial workup reviewed by me shows her hematologic labs are nonactionable however my informal interpretation shows multiple fractures of the pelvis specifically the superior and inferior bilateral pubic rami disrupting the pelvic ring age undetermined prior to radiology read. Radiology reads the right sided pubic rami fracture is acute with the left sided appearing to be chronic and bilateral sacral insufficiency fractures. . Given this I had interactive discussion with [facility] regarding patient management and she has been accepted to the [place] emergency department in care of Dr. Bird for further evaluation and care <Xavier Gibson MD - Last Filed: 06/29/24 23:13> Vital Signs: 06/29/24 18:22 06/29/24 20:30 06/29/24 21:00 Temperature 98.4 F Temperature Source Oral Pulse Rate 69 63 Pulse Rate [Right] 88 Respiratory Rate 18 Blood Pressure 122/82 121/70 Blood Pressure [Right Arm] 107/88 L Blood Pressure Mean [Right Arm] 94 02 Sat by Pulse Oximetry 96 95 96 06/29/24 21:38 06/29/24 22:00 Temperature Temperature Source Pulse Rate 68 67 Pulse Rate [Right] Respiratory Rate Blood Pressure 83/54 L 109/66 L Blood Pressure [Right Arm] Blood Pressure Mean [Right Arm] 02 Sat by Pulse Oximetry 95 87 L Lab Data Lab Results 06/29/24 20:25: WBC 11.5 H, RBC 3.32 L, Hgb 12.3, Hct 38.1, MCV 114.7 H, MCH 36.9 H, MCHC 32.2, RDW 13.7, Plt Count 261, MPV 7.6, Neut % (Auto) 80.4 H, Lymph % (Auto) 11.6, [place] % (Auto) 6.0, Eos % (Auto) 1.0, Baso % (Auto) 1.0, Neut # (Auto) 9.3 H, Lymph # (Auto) 1.3, [place] # (Auto) 0.7, Eos # (Auto) 0.1, Baso # (Auto) 0.1, Sodium 123 L, Potassium 3.3 L, Chloride 93 L, Carbon Dioxide 26, Anion Gap 7.3, BUN 19 H, Creatinine 0.80, Estimated Creat Clear 51, Estimated GFR 70, Est GFR ( Amer) 84, Glucose 106 H, Calcium 8.3 L, Total Bilirubin 0.6, AST 29, ALT 23, Alkaline Phosphatase 106, Total Protein 6.4, Albumin 3.8, Globulin 2.6, Albumin/Globulin Ratio 1.5 Orders (Tests/Meds): ED MEDICATIONS Generic Name Dose Route Start Last Admin Trade Name Freq PRN Reason Stop Dose Admin Sodium Chloride 1,000 mls @ 999 mls/hr 06/29/24 23:11 Sod Chlor 0.9% 1000ml Bag IV 06/30/24 00:11 .Q1H1M ONE Potassium Chloride 60 meq 06/29/24 23:11 Potassium Chloride 20meq Tab PO 06/29/24 23:12 ONCE ONE Discontinued Medications Generic Name Dose Route Start Last Admin Trade Name Freq PRN Reason Stop Dose Admin Bacitracin 1 gm 06/29/24 21:09 06/29/24 21:13 Bacitracin Zinc Oint 30gm Tube TP 06/29/24 21:10 1 gm ONCE ONE Administration Ondansetron HCl 4 mg 06/29/24 21:41 06/29/24 21:52 Ondansetron 4mg/2ml Vial IV 06/29/24 21:42 4 mg ONCE ONE Administration Promethazine HCl 12.5 mg 06/29/24 22:36 06/29/24 22:40 Promethazine Hcl 25mg/Ml 1ml Vial IV 06/29/24 22:37 12.5 mg ONCE ONE Administration Sodium Chloride 25 ml 06/29/24 22:36 06/29/24 22:41 Sodium Chloride 0.9% 25ml Bag IV 06/29/24 22:37 25 ml ONCE ONE Administration ORDERS Category Date Time Status CT bony pelvis Stat Cat Scan 06/29/24 19:[address] lumbar spine wo con Stat Cat Scan 06/29/24 19:17 Completed Femur XR right 2 views [XR femur RT 2V] Stat Exams 06/29/24 18:23 Completed Hip XR right minimum 2 views [XR hip RT 2-3V w/pelvis] Exams 06/29/24 18:23 Completed Stat CBC w/Auto Diff [Complete Blood Count Auto Diff] Stat Lab 06/29/24 20:25 Completed CMP [Comprehensive Metabolic Panel] Stat Lab 06/29/24 20:25 Completed Medical Decision Narrative: In summary patient is a 78-year-old female who presents to the emergency department for evaluation of a fall in her home. Patient is hemodynamically stable upon arrival, afebrile. Physical exam is remarkable for tenderness at the right lateral hip however pelvis is stable to compression, patient has a skin tear that is new to the anterior right patella and right elbow however there is full range of motion and no bony deformity. Patient has full range of motion of the right lower extremity and can actually elevate off the bed without pain and reports soreness at the right hip. Patient has multiple areas of ecchymosis over her bilateral lower extremities however the patient reports that that has been going on for months .. Differential diagnosis includes contusion versus fracture. Initial workup will be conducted with plain film x-rays and CT scan of the hip pelvis and lumbar spine. Initial interventions include Tylenol Toradol. Initial workup reviewed by me shows her hematologic labs are nonactionable however my informal interpretation shows multiple fractures of the pelvis specifically the superior and inferior bilateral pubic rami disrupting the pelvic ring age undetermined prior to radiology read. Radiology reads the right sided pubic rami fracture is acute with the left sided appearing to be chronic and bilateral sacral insufficiency fractures. . Given this I had interactive discussion with [facility] regarding patient management and she has been accepted to the [place] emergency department in care of Dr. Bird for further evaluation and care I was consulted by the OWEN, and we discussed the complexity of the problems being addressed. I approved the treatment and management plan for this patient's care in the Emergency Department, thus performing a substantive portion of the medical decision making. Xavier Gibson MD Critical Care <EDWAR Moore - Last Filed: 06/29/24 21:26> Critical Care Time Critical Care Time: No
--- NOTE | 2024-06-29 18:38 | PC.NURSE ---
Rad in room for portable x-ray
--- NOTE | 2024-06-29 19:17 | CT_ITS ---
PROCEDURE INFORMATION: Exam: CT Pelvis Without Contrast, Skeleton Exam date and time: 06/29/2024 7:35 PM Age: 78 years old Clinical indication: Injury or trauma; Fall; Blunt trauma (contusions or hematomas); Right; Pelvic region; Additional info: Concern gor pelvvic fractures TECHNIQUE: Imaging protocol: Computed tomography of the pelvis without contrast. Exam focused on the skeleton. Radiation optimization: All CT scans at this facility use at least one of these dose optimization techniques: automated exposure control; mA and/or kV adjustment per patient size (includes targeted exams where dose is matched to clinical indication); or iterative reconstruction. COMPARISON: CT ABDOMEN PELVIS W CON 11/14/2022 3:56 AM FINDINGS: Intestine: Sigmoid colon diverticulosis. Vasculature: Extensive atherosclerotic disease. Reproductive: Status post hysterectomy. Bones/joints: Acute mildly displaced and comminuted right superior and inferior pubic rami fractures. Healing left superior and inferior pubic rami fractures. Bilateral sacral insufficiency fractures. Osteopenia. Severe degenerative change in the lower lumbar spine. Mild degenerative change of the bilateral hips and sacroiliac joints. Moderate degenerative change of the pubic symphysis. Soft tissues: Mild soft tissue swelling and hemorrhage adjacent to the right pubic rami fractures. IMPRESSION: 1. Acute mildly displaced and comminuted right superior and inferior pubic rami fractures. 2. Healing left superior and inferior pubic rami fractures. 3. Bilateral sacral insufficiency fractures. 4. Mild soft tissue swelling and hemorrhage adjacent to the right pubic rami fractures.
--- NOTE | 2024-06-29 19:17 | CT_ITS ---
PROCEDURE INFORMATION: Exam: CT Lumbar Spine Without Contrast Exam date and time: 06/29/2024 7:25 PM Age: 78 years old Clinical indication: Injury or trauma; Fall; Blunt trauma (contusions or hematomas); Additional info: Fall, pelvic FX concern TECHNIQUE: Imaging protocol: Computed tomography of the lumbar spine without contrast. Radiation optimization: All CT scans at this facility use at least one of these dose optimization techniques: automated exposure control; mA and/or kV adjustment per patient size (includes targeted exams where dose is matched to clinical indication); or iterative reconstruction. COMPARISON: CT HIP LT WO CON 01/30/2024 2:40 PM FINDINGS: Bones/joints: Bilateral sacral insufficiency fractures. No lumbar spine compression fractures. Straightening of lumbar lordosis. Severe multilevel lumbar spine degenerative change is greatest at L3-L4, L4-L5, and L5-S1. Moderate bilateral L3-L4, L4-L5, and L5-S1 neural foraminal stenosis. Moderate spinal canal stenosis at L2-L3, L3-L4, and L4-L5. Mild lumbar spine dextroscoliosis. Vasculature: Extensive atherosclerotic disease. Soft tissues: Unremarkable. IMPRESSION: 1. Bilateral sacral insufficiency fractures. 2. No lumbar spine compression fractures.
--- NOTE | 2024-06-29 19:42 | PC.NURSE ---
Radiology asked to [facility] to [facility]
[2024-06-29 20:30] VITALS: BP 122/82; PULSE 69; O2SAT 95
[2024-06-29 20:33] LABS: Basophils # 0.1 K/mm3 (0-0.2); Eosinophils # 0.1 K/mm3 (0.0-0.4); Hematocrit 38.1 % (37.0-47.0); Hemoglobin 12.3 g/dL (12.2-16.2); Lymphocytes # 1.3 K/mm3 (0.7-4.5); Lymphocytes % 11.6 % (10-50); Mean Corpuscular HGB Conc 32.2 g/dL (31.8-35.4); Mean Corpuscular Hemoglobin 36.9 pg (27.0-31.2); Mean Corpuscular Volume 114.7 fl (81-99); Mean Platelet Volume 7.6 fl (7.4-10.4); Monocytes # 0.7 K/mm3 (0.1-1.0); Neutrophils # 9.3 K/mm3 (1.8-7.8); Neutrophils % 80.4 % (37.0-80.0); Platelet Count 261 K/mm3 (142-424); Red Blood Count 3.32 M/mm3 (4.20-5.40); Red Cell Distribution Width 13.7 % (11.5-17.5); White Blood Count 11.5 K/mm3 (4.8-10.8)
[2024-06-29 20:38] LABS: Albumin Level 3.8 g/dl (3.5-5.0); Chloride 93 mmol/L (98-107); Potassium 3.3 mmoL/L (3.5-5.1); Sodium 123 mmol/L (136-145)
[2024-06-29 20:40] LABS: Blood Urea Nitrogen 19 mg/dl (7-17); Creatinine Clearance Estimated 51 mL/min (50-200); Estimated Glomerular Filt Rate 70 ml/min (>60); GFR (African American) 84 ML/MIN (>60)
[2024-06-29 20:41] LABS: Alanine Aminotransferase 23 U/L (12-78); Albumin/Globulin Ratio 1.5 (1.1-1.8); Alkaline Phosphatase 106 U/L (38-126); Anion Gap 7.3 mEq/L (5-15); Aspartate Amino Transferase 29 U/L (14-36); Bilirubin,Total 0.6 mg/dl (0.2-1.3); Calcium 8.3 mg/dl (8.4-10.2); Carbon Dioxide 26 mmol/L (22.0-30.0); Globulin 2.6 g/dL (1.3-3.2); Glucose 106 mg/dl (74-100); Total Protein,Serum 6.4 g/dl (6.3-8.2)
[2024-06-29 21:00] VITALS: BP 121/70; PULSE 63; O2SAT 96
[2024-06-29] MEDS: BACITRACIN ZINC OINT 30GM TUBE TP (21:13)
--- NOTE | 2024-06-29 21:15 | PC.NURSE ---
Placed purewick for patient to void, patient declined savage catheter at this time. Patient tolerated well.
--- NOTE | 2024-06-29 21:19 | PC.NURSE ---
Nurse to nurse report given to ED medical accounting clerk at [facility] at this time. Notified that patient will be awaiting transfer truck at this time.
[2024-06-29 21:38] VITALS: BP 83/54; PULSE 68; O2SAT 95
[2024-06-29] MEDS: ONDANSETRON 4MG/2ML VIAL 4 MG IV (21:52)
[2024-06-29 22:00] VITALS: BP 109/66; PULSE 67; O2SAT 87
--- NOTE | 2024-06-29 22:37 | PC.NURSE ---
Patient reports that she continues to be nauseated, denies pain at this time. Notified provider, orders received.
[2024-06-29] MEDS: PROMETHAZINE HCL 25MG/ML 1ML VIAL 12.5 MG IV (22:40)
[2024-06-29] MEDS: SODIUM CHLORIDE 0.9% 25ML BAG 25 ML IV (22:41)
[2024-06-29] MEDS: 0.9 % SODIUM CHLORIDE 1000ML 1,000 ML 999 ML IV (23:36)
[2024-06-29] MEDS: BENZONATATE 100MG CAPSULE 100 MG PO (23:36)
[2024-06-29 23:39] VITALS: BP 126/71; PULSE 68; RESP 18; TEMP 36.7; O2SAT 98
== END 2024-06-29 23:51 | disposition short-term general hospital (02) ==
PROVIDERS: Physician Assistant; Emergency Provider Emergency Medicine; PCP Family Medicine
DX: S32.810A Multiple fractures of pelvis with stable disruption of pelvic ring, initial encounter for closed fracture (principal); E87.1 Hypo-osmolality and hyponatremia; E87.6 Hypokalemia; W18.30XA Fall on same level, unspecified, initial encounter
CPT/HCPCS: 72131; 72192; 73502; 73552; 80053; 85025; 96361; 96374; 96375; 99285; J2405; J2550; J7030

== ENCOUNTER 2024-07-14 18:27 | Inpatient (IN) | payer MEDICARE, OTHER, SELFPAY ==
[2024-07-14] VITALS (17 sets, daily range): BP systolic 51–143; BP diastolic 38–90; PULSE 68–106; RESP 16; TEMP 36.3–36.7; O2SAT 96–99; BMI 23.6
[2024-07-14 18:39] LABS: Basophils # 0.1 K/mm3 (0-0.2); Basophils % 0.7 % (0.1-2.0); Eosinophils # 0.1 K/mm3 (0.0-0.4); Eosinophils % 0.4 % (0.1-12.0); Hematocrit 40.2 % (37.0-47.0); Hemoglobin 12.9 g/dL (12.2-16.2); Lymphocytes # 0.8 K/mm3 (0.7-4.5); Lymphocytes % 7.6 % (10-50); Mean Corpuscular HGB Conc 32.1 g/dL (31.8-35.4); Mean Corpuscular Hemoglobin 36.8 pg (27.0-31.2); Mean Corpuscular Volume 114.5 fl (81-99); Mean Platelet Volume 9.3 fl (7.4-10.4); Monocytes # 0.8 K/mm3 (0.1-1.0); Monocytes % 6.9 % (1.7-9.3); Neutrophils # 9.3 K/mm3 (1.8-7.8); Neutrophils % 84.4 % (37.0-80.0); Platelet Count 477 K/mm3 (142-424); Red Blood Count 3.51 M/mm3 (4.20-5.40); Red Cell Distribution Width 13.4 % (11.5-17.5); White Blood Count 11.1 K/mm3 (4.8-10.8)
[2024-07-14 18:49] LABS: Albumin Level 3.7 g/dl (3.5-5.0); Chloride 94 mmol/L (98-107); Potassium 4.2 mmoL/L (3.5-5.1); Sodium 122 mmol/L (136-145)
[2024-07-14 18:51] LABS: Alanine Aminotransferase 24 U/L (12-78); Albumin/Globulin Ratio 1.4 (1.1-1.8); Alkaline Phosphatase 197 U/L (38-126); Anion Gap 10.2 mEq/L (5-15); Aspartate Amino Transferase 35 U/L (14-36); Bilirubin,Total 1.1 mg/dl (0.2-1.3); Blood Urea Nitrogen 42 mg/dl (7-17); Carbon Dioxide 22 mmol/L (22.0-30.0); Creatinine Clearance Estimated 49 mL/min (50-200); Estimated Glomerular Filt Rate 54 ml/min (>60); GFR (African American) 65 ML/MIN (>60); Globulin 2.7 g/dL (1.3-3.2); Total Protein,Serum 6.4 g/dl (6.3-8.2)
[2024-07-14 18:52] LABS: Calcium 9.5 mg/dl (8.4-10.2); Glucose 93 mg/dl (74-100); Lipase 104 U/L (23-300)
[2024-07-14] MEDS: ONDANSETRON 4MG/2ML VIAL 4 MG IV (19:11)
--- NOTE | 2024-07-14 19:22 | CT_ITS ---
PROCEDURE INFORMATION: Exam: CT Abdomen And Pelvis With Contrast Exam date and time: 07/14/2024 8:01 PM Age: 78 years old Clinical indication: Abdominal pain; Additional info: Lower abd pain, urinary retention TECHNIQUE: Imaging protocol: Computed tomography of the abdomen and pelvis with contrast. Total images: 286 Radiation optimization: All CT scans at this facility use at least one of these dose optimization techniques: automated exposure control; mA and/or kV adjustment per patient size (includes targeted exams where dose is matched to clinical indication); or iterative reconstruction. Contrast material: ISOVUE; Contrast volume: 75 ml; Contrast route: IV; COMPARISON: CT BONY PELVIS 07/14/2024 7:58 PM FINDINGS: Lungs: Minor left basilar atelectasis. Calcified bibasilar granuloma. Pleural spaces: Trace left pleural effusion. Heart: Normal heart size. Severe mitral annular calcifications. Coronary arteries: Severe coronary artery calcifications. Diaphragm: Tiny hiatal hernia. Liver: Normal. No mass. Gallbladder and biliary ducts: Normal. No calcified stones. No ductal dilation. Pancreas: Normal. No ductal dilation. Spleen: Calcified splenic granuloma. No splenomegaly. Adjacent splenule. Adrenal glands: Normal. No mass. Kidneys and ureters: No hydronephrosis or nephrolithiasis. Multiple bilateral subcentimeter renal cortical hypodensities are too small to characterize but statistically cysts requiring no strict follow-up. Stomach and bowel: Contracted stomach. Nonspecific mild wall thickening of the duodenum. No ileus or bowel obstruction. Grossly unremarkable small bowel. Majority of the colon is collapsed. Mild scattered colonic diverticulosis without diverticulitis. Appendix: Nonvisualized appendix. No secondary signs of appendicitis. Intraperitoneal space: No ascites. No free air. Vasculature: Severe atherosclerotic vascular disease. Tortuous nonaneurysmal abdominal aorta. Moderate to severe atherosclerotic narrowing superior mesenteric artery and celiac artery without downstream occlusion. Severe atherosclerotic stenosis proximal bilateral renal arteries. Numerous pelvic phleboliths. Lymph nodes: Unremarkable. No enlarged lymph nodes. Urinary bladder: Moderate bladder distension. No bladder wall thickening, stones, or intraluminal mass. Reproductive: Status post hysterectomy. No adnexal mass. Bones/joints: Mild presacral edema. Known bilateral sacral insufficiency fractures. Known fractures of the pubic symphysis including bilateral superior and inferior pubic rami with signs of interval bone remottling and early healing. No convincing evidence for acute superimposed pelvic fracture. Moderate degenerative changes bilateral hips including chondrocalcinosis. Proximal femurs are intact. Minor lumbar dextrocurvature. Severe multilevel degenerative changes lumbar spine. Straightened lumbar lordosis. Soft tissues: Scattered foci of subcutaneous emphysema in the anterior abdominal wall may reflect sequela of subcutaneous injections. IMPRESSION: 1. Moderate bladder distension in keeping with history of urinary retention. 2. Subacute healing fractures of the pelvis and sacrum. 3. Trace left pleural effusion with adjacent atelectasis. 4. Nonspecific subjective mild wall thickening the duodenum may reflect duodenitis. No surrounding edema. 5. Mild colonic diverticulosis without acute diverticulitis. 6. Additional chronic and incidental findings. COMMENTS: Consistent with the [place] [employer]'s Incidental Findings Committee white paper (J Am Dejah Radiol 2018): Any incidental renal lesion less than 1 cm or classified as too small to characterize, or any incidental cystic renal lesion characterized as simple-appearing, is likely benign. No follow-up imaging is recommended for these lesions per consensus recommendations based on imaging criteria.
--- NOTE | 2024-07-14 19:22 | CT_ITS ---
PROCEDURE INFORMATION: Exam: CT Lumbar Spine Without Contrast Exam date and time: 07/14/2024 7:55 PM Age: 78 years old Clinical indication: Low back pain; Additional info: Lower abd pain, urinary retention TECHNIQUE: Imaging protocol: Computed tomography of the lumbar spine without contrast. Radiation optimization: All CT scans at this facility use at least one of these dose optimization techniques: automated exposure control; mA and/or kV adjustment per patient size (includes targeted exams where dose is matched to clinical indication); or iterative reconstruction. COMPARISON: CT LUMBAR SPINE WO CON 06/29/2024 7:25 PM FINDINGS: Bones/joints: Five lumbar type vertebral bodies. Generalized osteopenia. Straightened lumbar lordosis unchanged. Vertebral body heights stable and maintained with multiple chronic Schmorl's node and chronic endplate deformity stable from prior CT. Stable bilateral sacral insufficiency type stress fractures with stable bony sclerosis compared to CT 06/29/2024. Grossly no high-grade severe central spinal canal narrowing in the lumbar region. Soft tissues: Calcific changes in the abdominal aorta. IMPRESSION: 1. Stable lumbar vertebral body heights and lateral lumbar alignment compared to CT 06/29/2024. No new acute fracture identified. 2. Stable bilateral sacral insufficiency type stress fractures with bony sclerosis compared to 06/29/2024.
--- NOTE | 2024-07-14 19:22 | CT_ITS ---
PROCEDURE INFORMATION: Exam: CT Pelvis Without Contrast, Skeleton Exam date and time: 07/14/2024 7:58 PM Age: 78 years old Clinical indication: Abdominal pain; Lower abdomen; Additional info: Lower abd pain, urinary retention TECHNIQUE: Imaging protocol: Computed tomography of the pelvis without contrast. Exam focused on the skeleton. Total images: 813 Radiation optimization: All CT scans at this facility use at least one of these dose optimization techniques: automated exposure control; mA and/or kV adjustment per patient size (includes targeted exams where dose is matched to clinical indication); or iterative reconstruction. COMPARISON: CT BONY PELVIS 07/14/2024 7:58 PM FINDINGS: Bones/joints: Subacute healing sacral insufficiency fracture. Subacute healing fractures of the pubic symphysis including bilateral superior and inferior pubic rami with interval callus formation and bone remottling. No convincing evidence for acute superimposed pelvic fracture. Moderate degenerative changes bilateral hips with chondrocalcinosis. No hip fracture or dislocation. Proximal femurs are intact. Soft tissues: Unremarkable. Other findings: Please refer to separate CT abdomen and pelvis report for additional details. IMPRESSION: 1. Subacute healing fractures of the pubic symphysis, bilateral superior pubic rami, bilateral inferior pubic rami, and sacrum. 2. No acute superimposed pelvic or hip fracture. 3. Additional findings can be found on separate CT abdomen and pelvis report.
--- NOTE | 2024-07-14 19:22 | CT_ITS ---
PROCEDURE INFORMATION: Exam: CT Thoracic Spine Without Contrast Exam date and time: 07/14/2024 7:48 PM Age: 78 years old Clinical indication: Pain in thoracic spine; Additional info: Lower abd pain, urinary retention TECHNIQUE: Imaging protocol: Computed tomography of the thoracic spine without contrast. Radiation optimization: All CT scans at this facility use at least one of these dose optimization techniques: automated exposure control; mA and/or kV adjustment per patient size (includes targeted exams where dose is matched to clinical indication); or iterative reconstruction. COMPARISON: CT LUMBAR SPINE WO CON 06/29/2024 7:25 PM FINDINGS: Bones/joints: Vertebral body heights maintained. Lateral thoracic alignment maintained. Generalized osteopenia. No definitive acute fracture or posttraumatic subluxation. Moderate to advanced degenerative changes in the thoracic discs with [id number] facet arthropathy in the thoracic facet joints. Grossly no high-grade central canal narrowing in the thoracic region. Soft tissues: Unremarkable. Pleural spaces: Small left pleural effusion noted. IMPRESSION: No acute fracture or posttraumatic subluxation in the thoracic spine identified.
--- NOTE | 2024-07-14 19:28 | CT_ITS ---
PROCEDURE INFORMATION: Exam: CT Head Without Contrast Exam date and time: 07/14/2024 7:44 PM Age: 78 years old Clinical indication: Altered mental status/memory loss; Additional info: AMS TECHNIQUE: Imaging protocol: Computed tomography of the head without contrast. Radiation optimization: All CT scans at this facility use at least one of these dose optimization techniques: automated exposure control; mA and/or kV adjustment per patient size (includes targeted exams where dose is matched to clinical indication); or iterative reconstruction. COMPARISON: CT HEAD/BRAIN WO CON 06/01/2024 5:04 AM FINDINGS: Brain: No acute intracranial hemorrhage, midline shift or mass effect. Diffuse brain parenchymal volume loss. Similar hypodensities within the cerebral white matter and midbrain. Cerebral ventricles: Ex vacuo dilatation of the ventricles. Paranasal sinuses: Visualized sinuses are unremarkable. No fluid levels. Mastoid air cells: Visualized mastoid air cells are well aerated. Bones: Unremarkable. No acute fracture. Soft tissues: Unremarkable. IMPRESSION: No acute intracranial findings.
--- NOTE | 2024-07-14 19:39 | PC.NURSE ---
While getting pt up from bedside commode, pt went limp, answer slowly, and had a bowel movement, BP 51/38, HR 77, pt placed back in bed by staff, BP retook 123/75, HR 91, provider aware
--- NOTE | 2024-07-14 19:45 | [facility].EDGENADL ---
Discharge Plan Disposition Patient Disposition: Admitted Condition: Good Clinical Impressions Clinical Impression: Chronic hyponatremia, Nausea, Adult failure to thrive, Acute urinary retention, Postobstructive diuresis Discharge ED Provider: Marlene Foote General Adult HPI General Chief complaint: Urogenital-Female Stated complaint: Urine retention Time Seen by Provider: 07/14/24 18:34 Mode of Arrival: EMS Source of Information: Patient Limitations: No Limitations Description of Symptoms (Recalled from ER Triage Doc. by RN): pt c/o nausea and urinary hesitency. pt was given zofran and phenergran at [facility] and has not had any relief. pt is currently residing there temporarily for rehab from a pelvic fracture. History of Present Illness HPI narrative: This patient is a 78-year-old female with a history of hypertension, hypothyroidism, rheumatoid arthritis, CAD, and recent evaluation for fall with multiple pelvic fractures at the beginning of June who is now at [facility] for rehab presenting with concern for inability to urinate, nausea, altered mental status, and general weakness. According to the patient's family, she has been progressively more weak since going to [facility] for rehab about a week ago. She also has been more confused. Her baseline is alert and oriented x 4, but she has been slightly confused in the nursing facility. Patient states that she is having hard time urinating, and family noted that she had not voided since yesterday. Patient reports that she did this morning, the family stated it was only a dribble. Patient states that she does not think that the nursing facility is giving her enough time to urinate. Family also noted that her blood pressure keeps taking when she goes from sitting to standing. They note that she did have blood pressure medication adjustments lately but they are not sure what those were. Patient arrives by EMS who noted that she was hemodynamically stable en route complaining of difficulty urinating and nausea. Family reports that the patient has chronic issues with nausea and was on Zofran and Phenergan for this, but she does not seem to get any relief. Patient currently states that she needs to pee and feels nauseated but denies any other concerns or complaints. No recent falls or injuries. No back pain, numbness, tingling, saddle anesthesia, fecal incontinence, urinary incontinence, or other concerns Related Data Home Medications ?Medication ?Instructions ?Recorded ?Confirmed carvedilol 12.5 mg tablet 12.5 mg PO BID 04/24/18 06/01/24 ezetimibe 10 mg tablet 10 mg PO DAILY 04/24/18 06/01/24 levothyroxine 112 mcg tablet 112 mcg PO DAILYDM 04/24/18 06/01/24 simvastatin 20 mg tablet 20 mg PO HS Cholesterol 04/24/18 06/01/24 hydroxychloroquine 200 mg tablet 200 mg PO DAILY 05/11/22 06/01/24 losartan 100 mg tablet 100 mg PO DAILY Hypertension 06/15/22 06/01/24 cetirizine 10 mg capsule 10 mg PO DAILY 07/01/22 06/01/24 prednisone 5 mg tablet 5 mg PO Q2D STEROID 07/01/22 06/01/24 cyclobenzaprine 10 mg tablet 10 mg PO TID 03/19/24 06/01/24 ondansetron HCl 4 mg tablet 4 mg PO DAILYP PRN Nausea And 06/01/24 06/01/24 Vomiting prednisone 5 mg tablet 10 mg PO Q2D 06/01/24 06/01/24 Previous Rx's ?Medication ?Instructions ?Recorded potassium chloride 10 mEq 10 meq PO DAILY #30 caps 06/02/24 capsule,extended release Allergies Allergy/AdvReac Type Severity Reaction Status Date / Time Sulfa (Sulfonamide Allergy Unknown Hives Verified 07/14/24 18:43 Antibiotics) [SULFA (SULFONAMIDE ANTIBIOTICS)] Penicillins Allergy Hives Verified 07/14/24 18:43 [facility] Disclaimer: The information contained in this section may have been updated after the patient was seen, as this information can be updated by other users. Medical History Trochanteric bursitis, right hip Skin tear of left upper extremity Contusion of elbow, left Contusion of hip, left Trochanteric bursitis, left hip Pain around toenail, right foot Ingrown toenail of right foot Closed nondisplaced fracture of fifth right metatarsal bone MARY (acute kidney injury) Enteritis Closed fracture of greater trochanter of femur Rheumatoid arthritis CAD (coronary artery disease) Hypothyroidism Foot fracture, right Polymyalgia rheumatica syndrome History of back pain History of left heart catheterization Hyperlipidemia Hypertension Cataract COVID-19 Closed fracture of fourth metatarsal of right foot Nondisplaced fracture of fifth right metatarsal bone with routine healing Myocardial infarction HLD (hyperlipidemia) Surgical History H/O cataract removal with insertion of prosthetic lens History of heart artery stent Previous back surgery H/O thyroidectomy History of appendectomy History of hysterectomy History of tonsillectomy Family History Other Cancer Heart attack Hypertension Social History Smoking Status: Never smoker years smoked: 40 how long ago did patient quit smokin years alcohol intake: never substance use type: denies use current occupational status: retired Travel in the last 8 weeks: None caregiver/support person: Yes () household members: spouse housing: house marital status: special mravin needs: No ROS Obtained: Yes All systems reviewed & no additional complaints except as documented Physical Exam General General appearance: alert and in no apparent distress Comment: Uncomfortable appearing Head Head exam: atraumatic and normocephalic Eye Eye exam: Present normal appearance, PERRL and EOMI ENT ENT exam: Present normal exam, normal oropharynx, mucous membranes moist and normal external ear exam Neck Neck exam: Present normal inspection, full ROM and trachea midline; Absent tenderness Chest Chest inspection: Present normal inspection and symmetric chest wall rise; Absent tenderness Respiratory Respiratory exam: Present normal lung sounds bilaterally; Absent respiratory distress, wheezes, stridor or accessory muscle use Cardiovascular Cardiovascular exam: Present regular rate and normal rhythm Abdominal Exam Abdominal exam: Present soft and tenderness (Generalized); Absent distention or guarding Extremities Exam Extremities exam: Present normal inspection, full ROM and normal capillary refill; Absent tenderness or edema Back Exam Back exam: Present normal inspection and full ROM; Absent tenderness Neurological Exam Neurological exam: Present alert, oriented X3 and CN II-XII intact; Absent motor sensory deficit Psychiatric Psychiatric exam: Present normal affect and normal mood Skin Skin exam: Present warm and dry Medical Decision Making Medical Records Medical records reviewed: Yes I reviewed the patient's medical records. Screening: Per USPSTF and CDC recommendations, given the prevalence of disease in our region, it is our hospital?s policy to screen for HIV and viral Hepatitis for all patients aged 18 and over and those with ongoing risk factors. Michael Inquiry Pt receiving controlled substance: No Vital Signs: 07/14/24 18:29 07/14/24 18:30 07/14/24 19:00 Temperature 97.4 F L Temperature Source Oral Pulse Rate 80 Pulse Rate [Left] 84 Pulse Rate [Orthostatic Lying Left] Pulse Rate [Orthostatic Standing] Respiratory Rate 16 Blood Pressure 131/78 134/77 Blood Pressure [Orthostatic Lying] Blood Pressure [Orthostatic Sitting] Blood Pressure [Orthostatic Standing] Blood Pressure [Right Arm] 126/83 Blood Pressure Mean 95 99 Blood Pressure Mean [Right Arm] 97 Blood Pressure Source Blood Pressure Source [Right Arm] Automatic Cuff Blood Pressure Position Blood Pressure Position [Right Arm] Sitting 02 Sat by Pulse Oximetry 96 98 Oxygen Delivery Method Room Air Room Air 07/14/24 19:23 07/14/24 19:27 07/14/24 19:28 Temperature Temperature Source Pulse Rate 79 75 106 H Pulse Rate [Left] Pulse Rate [Orthostatic Lying Left] Pulse Rate [Orthostatic Standing] Respiratory Rate Blood Pressure 107/65 L 120/90 132/85 Blood Pressure [Orthostatic Lying] Blood Pressure [Orthostatic Sitting] Blood Pressure [Orthostatic Standing] Blood Pressure [Right Arm] Blood Pressure Mean 79 100 110 Blood Pressure Mean [Right Arm] Blood Pressure Source Blood Pressure Source [Right Arm] Blood Pressure Position Blood Pressure Position [Right Arm] 02 Sat by Pulse Oximetry 99 99 99 Oxygen Delivery Method Room Air 07/14/24 19:31 07/14/24 19:36 07/14/24 19:41 Temperature Temperature Source Pulse Rate 77 91 H Pulse Rate [Left] 75 Pulse Rate [Orthostatic Lying Left] 79 Pulse Rate [Orthostatic Standing] 106 H Respiratory Rate Blood Pressure 51/38 L 123/75 Blood Pressure [Orthostatic Lying] 107/65 L Blood Pressure [Orthostatic Sitting] 120/90 Blood Pressure [Orthostatic Standing] 132/85 Blood Pressure [Right Arm] Blood Pressure Mean 42 91 Blood Pressure Mean [Right Arm] Blood Pressure Source Blood Pressure Source [Right Arm] Blood Pressure Position Blood Pressure Position [Right Arm] 02 Sat by Pulse Oximetry 98 Oxygen Delivery Method 07/14/24 20:30 07/14/24 21:00 07/14/24 21:30 Temperature Temperature Source Pulse Rate 74 Pulse Rate [Left] Pulse Rate [Orthostatic Lying Left] Pulse Rate [Orthostatic Standing] Respiratory Rate Blood Pressure 117/69 108/68 L 107/65 L Blood Pressure [Orthostatic Lying] Blood Pressure [Orthostatic Sitting] Blood Pressure [Orthostatic Standing] Blood Pressure [Right Arm] Blood Pressure Mean 85 81 79 Blood Pressure Mean [Right Arm] Blood Pressure Source Blood Pressure Source [Right Arm] Blood Pressure Position Blood Pressure Position [Right Arm] 02 Sat by Pulse Oximetry 96 96 Oxygen Delivery Method 07/14/24 22:00 07/14/24 22:30 07/14/24 23:00 Temperature Temperature Source Pulse Rate 74 68 74 Pulse Rate [Left] Pulse Rate [Orthostatic Lying Left] Pulse Rate [Orthostatic Standing] Respiratory Rate Blood Pressure 129/74 136/72 143/68 H Blood Pressure [Orthostatic Lying] Blood Pressure [Orthostatic Sitting] Blood Pressure [Orthostatic Standing] Blood Pressure [Right Arm] Blood Pressure Mean 92 93 98 Blood Pressure Mean [Right Arm] Blood Pressure Source Blood Pressure Source [Right Arm] Blood Pressure Position Blood Pressure Position [Right Arm] 02 Sat by Pulse Oximetry 97 96 Oxygen Delivery Method Room Air Room Air 07/14/24 23:30 07/14/24 23:44 Temperature 98.1 F Temperature Source Oral Pulse Rate 76 77 Pulse Rate [Left] Pulse Rate [Orthostatic Lying Left] Pulse Rate [Orthostatic Standing] Respiratory Rate 16 Blood Pressure 115/68 115/68 Blood Pressure [Orthostatic Lying] Blood Pressure [Orthostatic Sitting] Blood Pressure [Orthostatic Standing] Blood Pressure [Right Arm] Blood Pressure Mean 89 Blood Pressure Mean [Right Arm] Blood Pressure Source Automatic Cuff Blood Pressure Source [Right Arm] Blood Pressure Position Supine Blood Pressure Position [Right Arm] 02 Sat by Pulse Oximetry 97 Oxygen Delivery Method Room Air Lab Data Lab results reviewed: Yes I reviewed the patient's lab results. Lab Results 07/14/24 20:20: Urine Color Yellow, Urine Appearance Clear, Urine pH 6.0, Ur Specific [place] 1.020, Urine Protein Negative, Urine Glucose (UA) Negative, Urine Ketones Negative, Urine Blood Negative, Urine Nitrate Negative, Urine Bilirubin Negative, Urine Urobilinogen 0.2, Ur Leukocyte Esterase Negative, Urine RBC Occasional, Urine WBC None, Ur Squamous Epith Cells 3-5, Urine Bacteria None 07/14/24 Unknown 07/14/24 Unknown Orders (Tests/Meds): ED MEDICATIONS Generic Name Dose Route Start Last Admin Trade Name Freq PRN Reason Stop Dose Admin Sodium Chloride 10 ml 07/14/24 20:04 07/14/24 20:05 Sodium Chloride 0.9% 10ml Syr (Rad Only) IV 08/13/24 20:03 10 ml NEEDED PRN Administration Maintain IV Site Discontinued Medications Generic Name Dose Route Start Last Admin Trade Name Bam PRN Reason Stop Dose Admin Acetaminophen 1,000 mg 07/14/24 20:39 07/14/24 20:48 Acetaminophen 1,000mg/100ml Vial IV 07/14/24 20:40 1,000 mg ONCE ONE Administration Lactated Ringer's 1,000 mls @ 999 mls/hr 07/14/24 21:46 07/14/24 21:58 Lactated Ringer's 1000 Ml Bag IV 07/14/24 22:46 999 mls/hr .Q1H1M ONE Administration Iopamidol 75 ml 07/14/24 20:04 07/14/24 20:05 Iopamidol-370 (76%);100ml Bottle IV 07/14/24 20:05 75 ml ONCE ONE Administration Ondansetron HCl 4 mg 07/14/24 18:51 07/14/24 19:11 Ondansetron 4mg/2ml Vial IV 07/14/24 18:52 4 mg ONCE ONE Administration ORDERS Category Date Time Status CT abdomen pelvis w con Stat Cat Scan 07/14/24 19:[address] bony pelvis Stat Cat Scan 07/14/24 19:[address] head/brain wo con Stat Cat Scan 07/14/24 19:[address] lumbar spine wo con Stat Cat Scan 07/14/24 19:[address] thoracic spine wo con Stat Cat Scan 07/14/24 19:22 Completed CBC w/Auto Diff [Complete Blood Count Auto Diff] Stat Lab 07/14/24 Completed CMP [Comprehensive Metabolic Panel] Stat Lab 07/14/24 Completed HIV (1&2) Antibody Rapid Stat Lab 07/14/24 Completed Hep C Ab with Reflex to RNA Stat Lab 07/14/24 18:35 Ordered Lipase Stat Lab 07/14/24 Completed Magnesium Stat Lab 07/14/24 Completed Phosphorous Stat Lab 07/14/24 Completed T4 (Thyroxine) Stat Lab 07/14/24 Completed TSH [Thyroid Stimulating Hormone] Stat Lab 07/14/24 Completed Trop I [Troponin I] Stat Lab 07/14/24 Completed Troponin I Q3H Lab 07/14/24 22:10 Completed Troponin I Q3H Lab 07/15/24 01:00 Ordered UA [Urinalysis and Microscopic] Stat Lab 07/14/24 20:20 Completed ECG Data Tracing #1: I reviewed this ECG and interpreted as documented below: Normal sinus rhythm with a ventricular rate of [address] changes concerning for ischemia. First-degree AV block with a GA interval of 245 ms. ECG initial impression date: 07/14/24 ECG initial impression time: 20:39 Medical Decision Narrative: In summary, this patient is a 78-year-old female presenting to the Emergency Department for evaluation of difficulty urinating, nausea, confusion, and general weakness. Differential diagnoses considered include but are not limited to urinary retention, urinary tract infection, constipation, bowel obstruction, cauda equina syndrome, spinal cord compression, electrolyte derangements, intra-abdominal infection, CVA, MARY, dehydration. Ruling out the most morbid conditions drove assessment. It should be noted patient's history includes CAD, hyperlipidemia, hypothyroidism which may or may not be at goal therapy. This complicates all aspects of care by increasing patient's risk for morbidity. I reviewed patient's past medical records and noted evaluation here at the beginning of June and diagnosis of pelvic fractures, for which she was transferred to . On exam, the patient is lying in bed. She is uncomfortable appearing and is currently complaining of nausea and need to urinate. We placed her on a bedpan as she was unable to urinate. We tried to get her up to stand her to move her to bedside commode, and initially we obtained orthostatic vital signs were reassuring, however she then had what I believed to be a vagal response and her legs gave out from under her and she defecated on herself. Blood pressure at that time tach, but she recovered quickly after lying down. She was not initially orthostatic, however, which leads me to believe that she did have a vagal episode. She was unable to urinate either on the bedside commode or on bedpan. Bladder scan was obtained that demonstrated greater than 600 mL in the bladder. She has no numbness, tingling, saddle anesthesia, leg weakness, or other concerns. She is neurologically intact on exam. Todd catheter was placed for acute urinary retention. Workup included broad lab evaluation to evaluate for infectious, metabolic, cardiac causes of the patient's symptoms as well as CT head, CT T/L-spine, and CT abdomen pelvis with IV contrast. Patient was given IV Zofran for nausea. EKG obtained is reassuring I independently interpreted CT scans prior to the radiologist read and noted bladder distention with chronic fractures. Please see their read for final interpretation. Labs were obtained that demonstrated slightly worsened chronic hyponatremia. She was 126 at . On reassessment, the patient states she is less nauseated but is just feeling tired and weak. She had 900 cc out immediately upon Todd catheter placement, and then she had another 700 out over the next 2 hours. Concern for postobstructive diuresis. On the third hour, she did only have 100 cc out. We repeated a BMP which is not significantly changed. Ultimately, I feel the patient has adult failure to thrive in the setting of chronic nausea. I feel that she likely has urinary retention caused by polypharmacy, including prochlorperazine, hydroxyzine, and cyclobenzaprine. I am not sure what is causing her chronic nausea, but it is concerning that she is only eaten a pack of crackers in the last week. She is also showing acute worsening in her functional status which is concerning for adult failure to thrive. Given this, I feel she would benefit from admission for further workup and management, and family is agreement with this. Patient initially did not want to be admitted but she stated that if we could help get her answers regarding her nausea she would be agreeable. Ultimately, I had an interactive discussion with the hospitalist who is going to evaluate the patient to see. Patient advises that she would rather be admitted here or leave AMA to go back to the nursing facility because she does not really want to be transferred. She was agreeable to go to [facility], however [facility] does not have urology on so they advised they wouldn't be able to help with the catheter issue. Patient admitted here in stable condition. Critical Care Critical Care Time Critical Care Time: No
--- NOTE | 2024-07-14 19:58 | PC.NURSE ---
pt was placed on bed osullivan and bedside commode, unable to provide UA, provider aware
[2024-07-14 20:05] LABS: HIV (1&2) Antibody Rapid NONREACTIVE (NONREACTIVE)
[2024-07-14] MEDS: SODIUM CHLORIDE 0.9% 10ML SYR (RAD ONLY) 10 ML IV (20:05)
[2024-07-14] MEDS: IOPAMIDOL-370 (76%);100ML BOTTLE 75 ML IV (20:05)
--- NOTE | 2024-07-14 20:15 | PC.NURSE ---
Bladder scan completed, greater than 693 noted on scan, provider aware.
[2024-07-14 20:21] LABS: Magnesium 1.6 mg/dl (1.6-2.3); Phosphorous 3.8 mg/dl (2.5-4.5)
[2024-07-14 20:24] LABS: Microscopic, Urine URINE MICROSCOPIC (MICROSCOPIC)
[2024-07-14 20:32] LABS: Appearance,Urine CLEAR (Clear); Bilirubin,Urine Negative (Negative); Blood, Urine Negative (Negative); Color,Urine YELLOW (Yellow); Glucose,Urine (UA) Negative (Negative); Ketones,Urine Negative (Negative); Leukocyte Esterase,Urine Negative (Negative); Nitrate,Urine Negative (Negative); Protein,Urine Negative (Negative); Urobilinogen,Urine 0.2 EU/dl (0.2)
[2024-07-14 20:34] LABS: Troponin I 0.02 ng/ml (0.00-0.034)
--- NOTE | 2024-07-14 20:35 | ECG_ITS ---
APPROVED REPORT Exam: Resting ECG HR:77 bpm ECG Measurements Heart Rate 77 AXES WY 245 P 35 QRSd 102 QRS 3 QT 400 T 28 QTc 432 Conclusion SINUS RHYTHM WITH FIRST DEGREE AV BLOCK SEPTAL MYOCARDIAL INFARCTION , OF INDETERMINATE AGE [40+ ms Q WAVE IN V1/V2] Electronically signed by : BONNIE DALEY, 07/14/2024 23:37:44
[2024-07-14 20:39] LABS: T4 (Thyroxine) 14.1 ug/dl (5.53-11.0)
[2024-07-14 20:41] LABS: RBC,Urine Occasional #/hpf (0-3)
[2024-07-14] MEDS: ACETAMINOPHEN 1,000MG/100ML VIAL 1000 MG IV (20:48)
[2024-07-14 20:53] LABS: Thyroid Stimulating Hormone 7.36 uIU/mL (0.465-4.68)
--- NOTE | 2024-07-14 21:41 | PC.NURSE ---
contacted house for bed assignment: dx: ams, hyponatremia, urinary retention, hospitalist
[2024-07-14] MEDS: LACTATED RINGERS 1000ML 1,000 ML 999 ML IV (21:58)
--- NOTE | 2024-07-14 22:37 | PC.NURSE ---
Called [facility] transfer line for possible transfer, spoke with to Sumeet, will call back adela
[2024-07-14 22:46] LABS: Troponin I 0.02 ng/ml (0.00-0.034)
[2024-07-14 22:56] LABS: Chloride 97 mmol/L (98-107); Sodium 121 mmol/L (136-145)
[2024-07-14 22:57] LABS: Potassium 4.2 mmoL/L (3.5-5.1)
[2024-07-14 23:00] LABS: Anion Gap 13.2 mEq/L (5-15); Blood Urea Nitrogen 38 mg/dl (7-17); Calcium 8.8 mg/dl (8.4-10.2); Carbon Dioxide 15 mmol/L (22.0-30.0); Creatinine Clearance Estimated 49 mL/min (50-200); Estimated Glomerular Filt Rate 54 ml/min (>60); GFR (African American) 65 ML/MIN (>60); Glucose 67 mg/dl (74-100)
--- NOTE | 2024-07-14 23:29 | PC.NURSE ---
Called [facility] back informed pt would be staying here that pt would rather not transfer
[2024-07-15] VITALS (7 sets, daily range): BP systolic 98–144; BP diastolic 56–80; PULSE 68–95; RESP 16–18; TEMP 36.6–37.3; O2SAT 94–98; BMI 23.8
--- NOTE | 2024-07-15 | PC.NURSE ---
Patient arrived to floor via stretcher from ED at 23:55.
[2024-07-15] MEDS: Dextrose 5 % and 0.9 % NaCl 1,000 ML 100 ML IV (01:10)
--- NOTE | 2024-07-15 01:12 | P.HP_ITS ---
History of Present Illness *Admission Date: 07/15/24 *Reason for visit:: Decreased p.o. intake, altered mental status *History of present illness: Patient with past medical history of [place], hyperlipidemia, PMR/rheumatoid arthritis on Plaquenil/prednisone, hypothyroidism presents with altered mental status, decreased p.o. intake, and decreased urination. Patient presented to hospital with daughter who states patient has been confused and not eating much over past 2 weeks. Patient diagnosed with pelvic fracture 06/29/2024, and transferred to for management. Patient discharged from within past 2 weeks, and sent to [place] for short-term rehab. Daughter states that patient's p.o. intake decreased since admission to [place]. Patient admits to nausea with eating. I just do not feel like eating because of the nausea. Complains of decreased urine output. Todd placed in emergency room with 1 L urine removed. Denies fevers, chills, known sick contacts, abdominal pain, chest pain, productive cough, blurry vision, headaches. Daughter present with patient and collaborates the story. Daughter also states patient has suffered from confusion/altered mental status for 2 weeks. Daughter states that skilled nursing also noted same confusion complaints. Patient was alert, awake, oriented to person and location at time of evaluation by Dr. Beasley. Patient able to answer all of Dr. Beasley's questions including her medical history and current medications without delay/errors. [facility] Disclaimer: The information contained in this section may have been updated after the patient was seen, as this information can be updated by other users. Medical History Trochanteric bursitis, right hip Skin tear of left upper extremity Contusion of elbow, left Contusion of hip, left Trochanteric bursitis, left hip Pain around toenail, right foot Ingrown toenail of right foot Closed nondisplaced fracture of fifth right metatarsal bone MARY (acute kidney injury) Enteritis Closed fracture of greater trochanter of femur Rheumatoid arthritis CAD (coronary artery disease) Hypothyroidism Foot fracture, right Polymyalgia rheumatica syndrome History of back pain History of left heart catheterization Hyperlipidemia Hypertension Cataract COVID-19 Closed fracture of fourth metatarsal of right foot Nondisplaced fracture of fifth right metatarsal bone with routine healing Myocardial infarction HLD (hyperlipidemia) Surgical History H/O cataract removal with insertion of prosthetic lens History of heart artery stent Previous back surgery H/O thyroidectomy History of appendectomy History of hysterectomy History of tonsillectomy Family History Other Cancer Heart attack Hypertension Social History (Updated 07/15/24 @ 00:31 by Alley Gaspar RN) Smoking Status: Never smoker years smoked: 40 how long ago did patient quit smokin years alcohol intake: never substance use type: denies use current occupational status: retired Travel in the last 8 weeks: None caregiver/support person: Yes () household members: spouse housing: house marital status: special marvin needs: No Review of Systems Review of Systems Review of systems:: pertinent systems reviewed and negative unless documented below Meds Home Medications and Allergies Home Medications ?Medication ?Instructions ?Recorded ?Confirmed ?Type carvedilol 12.5 mg tablet 12.5 mg PO BID 04/24/18 07/15/24 History levothyroxine 112 mcg tablet 112 mcg PO DAILYDM 04/24/18 07/15/24 History simvastatin 20 mg tablet 20 mg PO HS Cholesterol 04/24/18 07/15/24 History hydroxychloroquine 200 mg tablet 200 mg PO DAILY 05/11/22 07/15/24 History cetirizine 10 mg capsule 10 mg PO DAILY 07/01/22 07/15/24 History prednisone 5 mg tablet 5 mg PO Q2D STEROID 07/01/22 07/15/24 History cyclobenzaprine 10 mg tablet 5 mg PO TID 03/19/24 07/15/24 History potassium chloride 10 mEq 10 meq PO DAILY #30 caps 06/02/24 07/15/24 Rx capsule,extended release acetaminophen 500 mg tablet 500 mg PO Q6H PRN Pain 07/15/24 07/15/24 History aspirin 81 mg tablet,delayed 81 mg PO DAILY 07/15/24 07/15/24 History release benzonatate 100 mg capsule 100 mg PO TID PRN Cough 07/15/24 07/15/24 History enoxaparin 30 mg/0.3 mL 30 mg SQ Q12H 07/15/24 07/15/24 History subcutaneous syringe hydroxyzine pamoate 25 mg capsule 25 mg PO QID PRN Anxiety 07/15/24 07/15/24 History melatonin 3 mg tablet 3 mg PO HS PRN Insomnia 07/15/24 07/15/24 History promethazine 25 mg tablet 25 mg PO Q6H PRN Nausea And 07/15/24 07/15/24 History Vomiting sennosides 8.6 mg-docusate sodium 2 tab-cap PO BID 07/15/24 07/15/24 History 50 mg tablet (Senna Plus) tramadol 50 mg tablet 50 mg PO Q6H PRN Pain 07/15/24 07/15/24 History New Prescriptions to Start Prescriptions: Allergies Allergy/AdvReac Type Severity Reaction Status Date / Time Sulfa (Sulfonamide Allergy Unknown Hives Verified 07/14/24 18:43 Antibiotics) [SULFA (SULFONAMIDE ANTIBIOTICS)] codeine Allergy Vomiting Verified 07/15/24 00:25 Penicillins Allergy Hives Verified 07/14/24 18:43 Exam Data for Last 24 hours Vital signs and Labs for Last 24 Hours: Temp Pulse Resp BP Pulse Ox O2 Del Method 97.8 F 86 16 122/67 97 Room Air 07/15/24 00:00 07/15/24 00:00 07/15/24 00:00 07/15/24 00:00 07/15/24 00:00 07/15/24 00:00 Laboratory Results - last 24 hr 07/14/24 20:20: Urine Color Yellow, Urine Appearance Clear, Urine pH 6.0, Ur Specific [place] 1.020, Urine Protein Negative, Urine Glucose (UA) Negative, Urine Ketones Negative, Urine Blood Negative, Urine Nitrate Negative, Urine Bilirubin Negative, Urine Urobilinogen 0.2, Ur Leukocyte Esterase Negative, Urine RBC Occasional, Urine WBC None, Ur Squamous Epith Cells 3-5, Urine Bacteria None 07/14/24 22:10: Sodium 121 L, Potassium 4.2, Chloride 97 L, Carbon Dioxide 15 L, Anion Gap 13.2, BUN 38 H, Creatinine 1.00, Estimated Creat Clear 49, Estimated GFR 54 L, Est GFR ( Amer) 65, Glucose 67 L D, Calcium 8.8, Troponin I 0.02 07/14/24 : WBC 11.1 H, RBC 3.51 L, Hgb 12.9, Hct 40.2, MCV 114.5 H, MCH 36.8 H, MCHC 32.1, RDW 13.4, Plt Count 477 H, MPV 9.3, Neut % (Auto) 84.4 H, Lymph % (Auto) 7.6 L, [place] % (Auto) 6.9, Eos % (Auto) 0.4, Baso % (Auto) 0.7, Neut # (Auto) 9.3 H, Lymph # (Auto) 0.8, [place] # (Auto) 0.8, Eos # (Auto) 0.1, Baso # (Auto) 0.1, Sodium 122 L, Potassium 4.2, Chloride 94 L, Carbon Dioxide 22, Anion Gap 10.2, BUN 42 H, Creatinine 1.00, Estimated Creat Clear 49, Estimated GFR 54 L, Est GFR ( Amer) 65, Glucose 93, Calcium 9.5, Phosphorus 3.8, Magnesium 1.6, Total Bilirubin 1.1, AST 35, ALT 24, Alkaline Phosphatase 197 H, Troponin I 0.02, Total Protein 6.4, Albumin 3.7, Globulin 2.7, Albumin/Globulin Ratio 1.4, Lipase 104, TSH 7.36 H, Thyroxine (T4) 14.1 H, HIV 1&2 Antibody Rapid Nonreactive I & O for Last 24 hours: Intake & Output 07/12/24 07/13/24 07/14/24 07/15/24 23:59 23:59 23:59 23:59 Output Total 1750 / 1750 Balance -1750 / -1750 Weight 66.224 kg 67.224 kg Constitutional Constitutional: no acute distress, thin and chronically ill appearing *Routine HEENT Exam Head: Present normocephalic Eye: Present EOMI and normal accommodation ENT: Present mucous membranes dry *Routine Neck Exam Neck: Present supple and full ROM *Routine Respiratory Exam Respiratory: Present CTA bilaterally and normal respiratory effort *Routine Cardiovascular Exam Cardiovascular: Present Normal S1 and tachycardia *Routine Abdominal Exam Abdominal: Present soft and normoactive bowel sounds *Routine Rectal Exam Rectal:: deferred *Routine Genitalia Exam Genitalia:: deferred *Routine Extremities Exam Extremities: Present full ROM Comments: Multiple ecchymosis noted on patient's bilateral upper/lower extremities appear old and very stages of healing *Routine Skin Exam Skin: Present intact *Routine Neurological Exam Neurological: Present alert, oriented X3 and normal tone Assessment and Plan *Assessment and plan (1) Adult failure to thrive: Status: Acute Category: Medical Code(s): R62.7 - Adult failure to thrive (2) Acute urinary retention: Status: Acute Category: Medical Code(s): R33.8 - Other retention of urine (3) Postobstructive diuresis: Status: Acute Category: Medical Code(s): R35.89 - Other polyuria (4) Dehydration: Status: Resolved Category: Medical Code(s): E86.0 - Dehydration (5) Hyponatremia: Status: Acute Category: Medical Code(s): E87.1 - Hypo-osmolality and hyponatremia (6) AMS (altered mental status): Status: Acute Category: Medical Code(s): R41.82 - Altered mental status, unspecified (7) Hypoglycemia: Status: Acute Category: Medical Code(s): E16.2 - Hypoglycemia, unspecified (8) Hypothyroidism: Status: Chronic Category: Medical Code(s): E03.9 - Hypothyroidism, unspecified Plan 78-year-old female with past medical history of recent pelvic fracture treated at [facility] then sent to [place] for short-term rehab, CAD, hypertension, hypothyroidism, hyperlipidemia, rheumatoid/PMR on Plaquenil/prednisone. Patient presents complaining of 2 weeks swallowing issues complicated by nausea, altered mental status decreased urination without belly discomfort. Problems as listed below: Adult failure to thrive: ? Admit for nutritional evaluation, and nutritional supplements. I ordered modified barium swallow study, and speech therapy evaluation for a.m. I placed patient on full liquid diet and will advance as tolerated during hospitalization. I ordered mighty shakes with every meal. Will watch patient closely For signs of refeeding syndrome. I ordered a.m. BMP, mag, phosphorus test at time of admission. Admission albumin 3.7. -Also consult gastroenterology for possible EGD given swallow dysfunction. Family including patient/daughter also wish to speak to GI about possible feeding tube placement. Acute on chronic hyponatremia worsened by dehydration secondary to poor p.o. intake x 2 weeks: -Confirmed with patient's daughter that this is a chronic issue. Reviewed [facility] care everywhere outside records, but could find no records on this patient at outside hospitals. Reviewed records present in this hospital noting that 10/17 patient sodium of 128. Also noted 12/27/2023 patient sodium level 130. Patient's sodium levels seem to decrease significantly below 128 mg/dL starting April 2024. Believe this is likely due to dehydration related to pelvic fracture and decreased p.o. intake over the last few weeks. Will cautiously rehydrate patient with D5 normal saline at 100 cc/h x 1 day. I ordered serial sodium level checks at 4 AM, 10 AM, and 1600 on 07/15/2024 to assure patient's sodium level rising appropriately on normal saline fluids. I also ordered urine osmolarity, urine sodium, serum osmolarity, and urine creatinine to better diagnose etiology of hyponatremia. Dehydration: ?BUN 38, creatinine 1.0 implying BUN/creatinine ratio of 38. UA specific gravity 1.020. Dehydration likely secondary to poor p.o. intake. Fluid management as noted in hyponatremia section above. Acute urinary retention: ? I reviewed CT abdomen/pelvis done in emergency room prior to my assessment noting moderate bladder distention. Although patient states that this occurred 2 to 3 years ago, patient also states I did not go to the doctor and it just went away on its own. Large urinary retention noted in emergency room, with Todd catheter placed and 1 L diuresis noted. Continue Todd drainage. [facility] but [facility]. I ordered UA and urine culture looking for signs of infection. I also ordered procalcitonin and if elevated will consider starting antibiotics for empirical bacterial coverage. I personally reviewed patient's UA noting no leukoesterase /nitrates/bacteria. Therefore and less procalcitonin elevated no indication to initiate antibiotic therapy. Altered mental status: ? Patient appeared extremely appropriate on interview with Dr. Beasley in emergency room without signs of metabolic encephalopathy. Altered status might be secondary to urinary retention and dehydration. Status post 1 L crystalloid given in emergency room. Considered ordering MRI brain, but patient's NIH 0 at time evaluation by Dr. Beasley so low utility in ordering this examination. Will continue to treat dehydration, urinary retention and follow patient's cognitive status. UA shows no signs of UTI. -I reviewed CT thorax, lumbar, and head done in emergency room prior to my evaluation and noted no acute abnormalities. Hypoglycemia: Admission blood sugar 67 mg/dL. Will perform [id number] blood sugar checks twice daily x 2. Will also place patient on D5 normal saline at 100 cc/h x 1 day. Hypothyroidism: Patient appears to be super compliant with home Synthroid. Admission TSH 7.36, T4 14.1 which are slightly high values. Will therefore change patient's Synthroid from 112 mcg to 75 mcg daily. PPX Lovenox SQ Code DNI/DNR MDM: COPA: Moderate, patient suffering from urinary retention which is a acute illness with systematic symptoms including dehydration. Patient required Todd catheter placement in emergency room for 1 L of urine diuresis. Data: High, Imaging, lab work, testing as noted in above plan section. I spoke with patient's daughter at length at time of admission, and daughter confirmed that patient suffering from confusion, decreased urine output, and decreased p.o. intake over the last 2 weeks. I also spoke with emergency room physician Dr. Foote at time of admission and asked Dr. Foote to transfer patient to [facility] with urology available. Dr. Foote attempted to transfer patient to [facility] which declined admission. Patient and patient's daughter refused transfer to [facility] for further urinary retention evaluation. Patient subsequently admitted by Dr. Beasley for evaluation of adult failure to thrive, and urinary retention. Case also discussed with nursing staff by Dr. Beasley at time of admission. Risk of complications: High, I decided to admit this patient to [facility] due to urinary retention requiring Todd catheter placement, and inadequate p.o./liquid intake over the last 2 weeks causing a threat to life and bodily functions. Patient also requires close monitoring with routine lab work including phosphorus, BMP, magnesium for signs of refeeding syndrome during hospitalization. Patient also requires maintenance IV fluid for dehydration amelioration. Patient also made decision to be DNR/DNI 07/15/2024 with both daughter and Dr. Beasley hearing patient's decision at time of hospital admission.
[2024-07-15 01:38] LABS: Troponin I 0.02 ng/ml (0.00-0.034)
[2024-07-15 03:57] LABS: Troponin I 0.02 ng/ml (0.00-0.034)
[2024-07-15 04:02] LABS: Procalcitonin 0.109 ng/mL (0.0-2.0)
[2024-07-15 04:28] LABS: Creatinine,Urine Random 29 mg/dL (Not Estab.)
[2024-07-15] MEDS: predniSONE 5MG TAB 5 MG PO (06:50)
[2024-07-15 07:13] LABS: Anion Gap 9.3 mEq/L (5-15); Blood Urea Nitrogen 34 mg/dl (7-17); Calcium 8.8 mg/dl (8.4-10.2); Carbon Dioxide 20 mmol/L (22.0-30.0); Chloride 97 mmol/L (98-107); Creatinine Clearance Estimated 50 mL/min (50-200); Estimated Glomerular Filt Rate 54 ml/min (>60); GFR (African American) 65 ML/MIN (>60); Glucose 98 mg/dl (74-100); Magnesium 1.6 mg/dl (1.6-2.3); Potassium 3.3 mmoL/L (3.5-5.1); Sodium 123 mmol/L (136-145)
[2024-07-15 07:18] LABS: Basophils # 0.1 K/mm3 (0-0.2); Basophils % 0.9 % (0.1-2.0); Eosinophils % 0.5 % (0.1-12.0); Hematocrit 36.3 % (37.0-47.0); Hemoglobin 11.8 g/dL (12.2-16.2); Lymphocytes # 1.6 K/mm3 (0.7-4.5); Lymphocytes % 16.5 % (10-50); Mean Corpuscular HGB Conc 32.5 g/dL (31.8-35.4); Mean Corpuscular Hemoglobin 37.7 pg (27.0-31.2); Mean Corpuscular Volume 116.1 fl (81-99); Mean Platelet Volume 8.9 fl (7.4-10.4); Monocytes # 0.9 K/mm3 (0.1-1.0); Monocytes % 9.4 % (1.7-9.3); Neutrophils % 72.7 % (37.0-80.0); Platelet Count 361 K/mm3 (142-424); Red Blood Count 3.13 M/mm3 (4.20-5.40); Red Cell Distribution Width 13.5 % (11.5-17.5); White Blood Count 9.6 K/mm3 (4.8-10.8)
[2024-07-15 07:55] LABS: Phosphorous 3.2 mg/dl (2.5-4.5)
--- NOTE | 2024-07-15 08:52 | SW/DCPLANNER ---
Addendum entered by Apple Paz 07/15/24 14:35: I have updated Mary urbina/ Carmine that patient will return tomorrow pending no setbacks. Original Note: This patient currently resides at [facility] level of care. Updated patient information has been faxed. Discharge date is unknown at this time.
--- NOTE | 2024-07-15 08:56 | HMH.PTEV ---
Physical Therapy Evaluation Rehab PT IP Evaluation Start: 07/15/24 01:05 Freq: ONCE Status: Active Protocol: Document 07/15/24 08:52 JEAN (Rec: 07/15/24 08:56 JEAN [id number]) Subjective/History History History Per H&P: Patient with past medical history of [place], hyperlipidemia, PMR/rheumatoid arthritis on Plaquenil/ prednisone, hypothyroidism presents with altered mental status, decreased p.o. intake, and decreased urination. Patient presented to hospital with daughter who states patient has been confused and not eating much over past 2 weeks. Patient diagnosed with pelvic fracture 06/29/2024, and transferred to for management. Patient discharged from within past 2 weeks, and sent to [place] for short-term rehab. Daughter states that patient's p.o. intake decreased since admission to [place]. Patient admits to nausea with eating. I just do not feel like eating because of the nausea. Complains of decreased urine output. Todd placed in emergency room with 1 L urine removed. Denies fevers, chills, known sick contacts, abdominal pain, chest pain, productive cough, blurry vision, headaches. Daughter present with patient and collaborates the story. Daughter also states patient has suffered from confusion/ altered mental status for 2 weeks. Daughter states that senior living also noted same confusion complaints. Patient was alert, awake, oriented to person and location at time of evaluation by Dr. Beasley. Patient able to answer all of Dr. Beasley's questions including her medical history and current medications without delay/errors. Subjective Subjective Pt reports she usually lives at home with her and is IND with mobility. Pt reports she was receiving rehab at [place] prior to admission. Pt lives in a single story home with 3 BEBA and no HRs. Pt uses a RW for ambulation. Pt reports increased weakness. Pt driving prior to fall. New diagnosis of cancer in past 12 No months? Rehab PT IP Eval Objective Appearance Patient Behavior Appropriate,Cooperative Patient Orientation Person,Situation Difficulty following instructions none Speech Pattern Clear Ambulation Patient Able to Ambulate No Balance Ability to Arise Able, uses arms to help Sitting Balance Steady, safe Standing Balance Unsteady Transfers Bed Transfer Ability Moderate x 1 (50% assist) Sit to Stand Bed Transfer Ability Minimal x 1 (25% assist) Rehab PT IP prob,goals,plan Problems Date of Evaluation: 07/15/24 PT IP Problems Bed Mobility,Transfers,Gait, Balance,Self care,Safety Rehab Potential Rehab Potential Good Equipment Needs Assistive Devices Rolling / Wheeled Walker Plan PT Intervention Plan Bed Mobility,Transfers,Gait, Balance,Self care,Safety, Therapeutic Exercise Other Intervention Plan 1-2 times PT Plan Frequency Daily Duration LOS Discharge Goals Bed Transfer Ability Minimal x 1 (25% assist) Sit to Stand Chair Transfer Ability Contact Guard/Hand Hold Discharge Plan PT Discharge Plan Initial physical therapy evaluation performed. Patient presents below baseline at this time in functional mobility, transfers, and strength. Pt not safe to return home at this time d/t current level of functional mobility. PT recommending pt return to short-term rehabilitation stay upon d/c from [facility]. Pt would benefit from skilled PT while at [facility] to prevent further functional decline and maximize safety with mobility. Eval Complexity Eval Charge Codes 43999 - Moderate Complexity PHYSICIAN CERTIFICATION: I certify the specified therapy services for Andry Culp are required, authorized, and reviewed every 30 days.
[2024-07-15] MEDS: MAGNESIUM SULFATE IN WATER 2 GM/50 ML PIGGYBACK IV (08:58)
[2024-07-15] MEDS: 0.9 % SODIUM CHLORIDE 1000ML 1,000 ML 100 ML IV (08:58)
[2024-07-15] MEDS: LORATADINE 10MG TABLET 10 MG PO (08:59)
[2024-07-15] MEDS: CARVEDILOL 12.5MG TABLET 12.5 MG PO (08:59)
[2024-07-15] MEDS: ASPIRIN EC 81MG TABLET 81 MG PO (08:59)
[2024-07-15] MEDS: SENNOSIDES 8.6MG/DOCUSATE 50MG TABLET 2 TAB PO ×2 (08:59→20:07)
[2024-07-15] MEDS: CYCLOBENZAPRINE 10MG TABLET 5 MG PO ×3 (08:59→20:06)
[2024-07-15] MEDS: POTASSIUM CHLORIDE 20MEQ TAB 20 MEQ PO ×3 (08:59→20:06)
[2024-07-15] MEDS: LEVOTHYROXINE 75MCG (0.075MG) TAB 75 MCG PO (08:59)
[2024-07-15] MEDS: HYDROXYCHLOROQUINE SULFATE 200MG TABLET 200 MG PO (08:59)
[2024-07-15] MEDS: ENOXAPARIN 40MG/0.4ML SYRINGE 40 MG SQ (09:00)
--- NOTE | 2024-07-15 09:07 | P.CONPHA_ITS ---
Pharmacy Intervention Comments: MEDICATION RECONCILIATION COMPLETED ON PATIENT USING MAR FROM [facility]. -SAURAV NOBLE, SHAMIRD
--- NOTE | 2024-07-15 09:07 | HMH.PHAINT1 ---
Pharmacy Intervention Comments: MEDICATION RECONCILIATION COMPLETED ON PATIENT USING MAR FROM [facility]. -SAURAV NOBLE, SHAMIRD
--- NOTE | 2024-07-15 09:14 | HMH.SLDYSPHA ---
Speech & Language Evaluation Speech/Language Dysphagia Evaluation Start: 07/15/24 09:08 Freq: ONCE Status: Active Protocol: Document 07/15/24 09:08 MALLYANGELINA (Rec: 07/15/24 09:14 [facility] [id number][facility] Dysphagia Assess/Goals/Plan Assessment Date of Evaluation: 07/15/24 Evaluation Type Initial Certification Assessment/Problems decreased PO intake Does Patient Qualify for Service Yes Qualify/Failure Comment Based on clinical observations made throughout CSE, pt's mastication/manipulation of bolus and swallowing appear to be WFL at the bedside. No further skilled speech therapy services are warranted at this time. Recommendations PHYSICIAN CERTIFICATION: The specified therapy services are required, authorized, and reviewed every 30 days. Diet Recommendations Normal Liquid Type Recommendations Normal/Thin SL Swallow Guidelines Alt bite w/sip thru meal, Standard Aspiration Prec.,Eat at slow rate Dysphagia Swallow Precautions/Strategies Sitting Upright (90 deg),Small Bites and Sips,Alternate Liquids/Solids Plan Pt/Guardian verbally ack understanding Yes of dx/prognosis/goals G -code Required No Education Instructions provided Discussed CSE results, aspiration precautions, and diet recommendations with pt, nursing, and MD, as well as care management all of which expressed understanding. Pt/Caregiver able to recall information Able to recall/restate Reinforcement needed Yes Speech & Language HPI History Present Illness Description of Patient Problem ACAD[employer] SERVICES PROFESSIONAL pulled following information from chart review and H&P, Patient with past medical history of [place], hyperlipidemia, PMR/rheumatoid arthritis on Plaquenil/ prednisone, hypothyroidism presents with altered mental status, decreased p.o. intake, and decreased urination. Patient presented to hospital with daughter who states patient has been confused and not eating much over past 2 weeks. Patient diagnosed with pelvic fracture 06/29/2024, and transferred to for management. Patient discharged from within past 2 weeks, and sent to [place] for short-term rehab. Daughter states that patient's p.o. intake decreased since admission to [place]. Patient admits to nausea with eating. I just do not feel like eating because of the nausea. Complains of decreased urine output. Todd placed in emergency room with 1 L urine removed. Denies fevers, chills, known sick contacts, abdominal pain, chest pain, productive cough, blurry vision, headaches. Daughter present with patient and collaborates the story. Daughter also states patient has suffered from confusion/ altered mental status for 2 weeks. Daughter states that [facility] also noted same confusion complaints. Patient was alert, awake, oriented to person and location at time of evaluation by Dr. Beasley. Patient able to answer all of Dr. Beasley's questions including her medical history and current medications without delay/errors. Pt/Caregiver Concerns Pt reports no swallowing concerns. Reports of nausea & decreased PO. Language Primary Language [place] General Information General Current Food Consistancy NPO Dentition Upper & Lower Dentures Oxygen Status Room Air Patient Orientation Person,Place Ability to Follow Directions Good Communication Ability Mild Impairment Dysphagia:Food Presentation Evaluation Food Type Pureed,Mechanical Soft,Regular ,Liquid,Pudding Dysphagia Evaluation Summary Pt was seen sitting upright in bed this morning for CSE. P Pt was administered all bolus consistencies trialed x3 to assess for consistency and/or fatigue. No overt s/sxs of aspiration were noted. She was administered the following consistencies: thin liquid ( open cup/straw sip, two consecutive sips from straw/ open cup), pudding, puree( applesauce), mechanical soft ( soft baked cookie), and regular (akash cracker.) Based on observations made throughout clinical bedside swallow evaluation mastication and manipulation of the bolus and swallowing appear to be WFL and no further skilled speech therapy services are warranted at this time. It is recommended pt be placed on regular/thin diet. Stroke Dysphagia Assessment PHYSICIAN CERTIFICATION: I certify the specified therapy services for Andry u[facility] are required, authorized, and reviewed every 30 days.
--- NOTE | 2024-07-15 09:45 | HMH.OTEV ---
OT Inpatient Evaluation Rehab OT IP Evaluation Start: 07/15/24 01:05 Freq: ONCE Status: Active Protocol: Document 07/15/24 09:28 ANGELADIONE (Rec: 07/15/24 09:44 MOE [id number]) Rehab OT IP Assessment Subjective History Patient with past medical history of NV, hyperlipidemia, PMR/rheumatoid arthritis on Plaquenil/prednisone, hypothyroidism presents with altered mental status, decreased p.o. intake, and decreased urination. Patient presented to hospital with daughter who states patient has been confused and not eating much over past 2 weeks. Patient diagnosed with pelvic fracture 06/29/2024, and transferred to for management. Patient discharged from within past 2 weeks, and sent to [facility] for short-term rehab. Daughter states that patient's p.o. intake decreased since admission to [facility]. Patient admits to nausea with eating. I just do not feel like eating because of the nausea. Complains of decreased urine output. Todd placed in emergency room with 1 L urine removed. Denies fevers, chills, known sick contacts, abdominal pain, chest pain, productive cough, blurry vision, headaches. Daughter present with patient and collaborates the story. Daughter also states patient has suffered from confusion/ altered mental status for 2 weeks. Daughter states that prison also noted same confusion complaints. Patient was alert, awake, oriented to person and location at time of evaluation by Dr. Beasley. Patient able to answer all of Dr. Beasley's questions including her medical history and current medications without delay/errors. Resident at [facility] for the past two weeks after a pelvic fx. Lives with in 1 story with RW. Independent with ADLs and fx'l mobility prior to resident. Subjective I can just to sit up. Instructed patient on proper hand and foot placement to complete bed mobility from supine->sit @ EOB requiring Min A x2. Patient sat up @ EOB <5 mins and requested to lay back downd due to being nausea . Left Patient sitting upright in bed at end of session. Objective Patient Orientation Person,Name,Age,Birthday,Year Right Upper Extremity Gross ROM WFL Left Upper Extremity Gross ROM WFL Bed Mobility bed mobility - supine/sit Assist Level Minimal x 2 (25% assist) Rehab OT IP prob,goals,plan Problems Date of Evaluation: 09/24/24 OT IP Problems Bed Mobility,Transfers,Balance ,Self care,Safety Rehab Potential Rehab Potential Good Plan OT intervention Plan Bed Mobility,Transfers,Balance ,Self care,Safety,Therapeutic Exercise OT Plan Frequency Daily Duration LOS Discharge Goals Bed Mobility Ability Assistance x1 Discharge Plan OT Discharge Plan Patient to continue skilled OT IP services while here at [facility] . Recommend patient to return back to [facility] [place]. Eval Complexity Eval Charge Codes 20052 - Low Complexity PHYSICIAN CERTIFICATION: I certify the specified therapy services for Andry Culp are required, authorized, and reviewed every 30 days.
--- NOTE | 2024-07-15 10:23 | P.CONS_ITS ---
History of Present Illness *Admission Date: 07/15/24 *Reason for visit:: Lack of appetite/nausea *History of present illness: Mrs. Culp is a 78-year-old female with reduced appetite and anorexia with weight loss. She also has had altered mental status. She presented with hyponatremia And and her sodium level was 122. This is slowly being corrected. The patient also had hypokalemia and hypochloremia. She had elevated BUN at 42 (volume depletion). The patient reports no abdominal pain, bloating, early satiety or constipation. She has lost 15 pounds in the last couple of weeks. She was being treated at [facility] with Zofran and Phenergan. She has lost approximately 15 pounds in the last 2 or 3 weeks. She is more alert today than she has been in the last few days. Her CAT scan had shown bladder retention as well as some thickening in the duodenum. She has had no recent upper endoscopy or colonoscopy. Patient with past medical history of RI, hyperlipidemia, PMR/rheumatoid arthritis on Plaquenil/prednisone, hypothyroidism presents with altered mental status, decreased p.o. intake, and decreased urination. Patient presented to hospital with daughter who states patient has been confused and not eating much over past 2 weeks. Patient diagnosed with pelvic fracture 06/29/2024, and transferred to for management. Patient discharged from within past 2 weeks, and sent to [facility] for short-term rehab. Daughter states that patient's p.o. intake decreased since admission to [facility]. Patient admits to nausea with eating. I just do not feel like eating because of the nausea. Complains of decreased urine output. Todd placed in emergency room with 1 L urine removed. Denies fevers, chills, known sick contacts, abdominal pain, chest pain, productive cough, blurry vision, headaches. Daughter present with patient and collaborates the story. Daughter also states patient has suffered from confusion/altered mental status for 2 weeks. Daughter states that [facility] also noted same confusion complaints. Patient was alert, awake, oriented to person and location at time of evaluation by Dr. Beasley. Patient able to answer all of Dr. Beasley's questions including her medical history and current medications without delay/errors. [facility] Disclaimer: The information contained in this section may have been updated after the patient was seen, as this information can be updated by other users. Medical History Trochanteric bursitis, right hip Skin tear of left upper extremity Contusion of elbow, left Contusion of hip, left Trochanteric bursitis, left hip Pain around toenail, right foot Ingrown toenail of right foot Closed nondisplaced fracture of fifth right metatarsal bone MARY (acute kidney injury) Enteritis Closed fracture of greater trochanter of femur Rheumatoid arthritis CAD (coronary artery disease) Hypothyroidism Foot fracture, right Polymyalgia rheumatica syndrome History of back pain History of left heart catheterization Hyperlipidemia Hypertension Cataract COVID-19 Closed fracture of fourth metatarsal of right foot Nondisplaced fracture of fifth right metatarsal bone with routine healing Myocardial infarction HLD (hyperlipidemia) Surgical History H/O cataract removal with insertion of prosthetic lens History of heart artery stent Previous back surgery H/O thyroidectomy History of appendectomy History of hysterectomy History of tonsillectomy Family History Other Cancer Heart attack Hypertension Social History (Updated 07/15/24 @ 00:31 by Alley Gaspar RN) Smoking Status: Never smoker years smoked: 40 how long ago did patient quit smokin years alcohol intake: never substance use type: denies use current occupational status: retired Travel in the last 8 weeks: None caregiver/support person: Yes () household members: spouse housing: house marital status: special marvin needs: No Meds Home Medications and Allergies Home Medications ?Medication ?Instructions ?Recorded ?Confirmed ?Type levothyroxine 112 mcg tablet 112 mcg PO DAILYDM 04/24/18 07/15/24 History simvastatin 20 mg tablet 20 mg PO HS 04/24/18 07/15/24 History hydroxychloroquine 200 mg tablet 200 mg PO DAILY 05/11/22 07/15/24 History cetirizine 10 mg capsule 10 mg PO DAILY 07/01/22 07/15/24 History prednisone 5 mg tablet 5 mg PO DAILY 07/01/22 07/15/24 History potassium chloride 10 mEq 10 meq PO DAILY #30 caps 06/02/24 07/15/24 Rx capsule,extended release acetaminophen 500 mg tablet 500 mg PO Q6HP PRN Mild Pain 07/15/24 07/15/24 History (Scale Score 1-4) aspirin 81 mg tablet,delayed 81 mg PO DAILY 07/15/24 07/15/24 History release benzonatate 100 mg capsule 100 mg PO TIDP PRN Cough 07/15/24 07/15/24 History carvedilol 3.125 mg tablet 3.125 mg PO BID 07/15/24 07/15/24 History cyclobenzaprine 5 mg tablet 5 mg PO TID 07/15/24 07/15/24 History enoxaparin 30 mg/0.3 mL 30 mg SQ BID 07/15/24 07/15/24 History subcutaneous syringe hydroxyzine pamoate 25 mg capsule 25 mg PO Q6HP PRN Anxiety 07/15/24 07/15/24 History melatonin 3 mg tablet 3 mg PO HSP PRN Insomnia 07/15/24 07/15/24 History promethazine 25 mg tablet 25 mg PO Q6HP PRN Nausea And 07/15/24 07/15/24 History Vomiting sennosides 8.6 mg-docusate sodium 2 tab-cap PO BID 07/15/24 07/15/24 History 50 mg tablet (Senna Plus) tramadol 50 mg tablet 50 mg PO Q6HP PRN Moderate Pain 07/15/24 07/15/24 History (Scale Score 5-6) New Prescriptions to Start Prescriptions: Allergies Allergy/AdvReac Type Severity Reaction Status Date / Time Sulfa (Sulfonamide Allergy Unknown Hives Verified 07/14/24 18:43 Antibiotics) [SULFA (SULFONAMIDE ANTIBIOTICS)] codeine Allergy Vomiting Verified 07/15/24 00:25 Penicillins Allergy Hives Verified 07/14/24 18:43 Exam (Inpt) Vital signs and Labs for Last 24 Hours: Temp Pulse Resp BP Pulse Ox O2 Del Method 98.7 F 95 H 17 143/80 H 94 L Room Air 07/15/24 07:31 07/15/24 07:31 07/15/24 07:31 07/15/24 07:31 07/15/24 07:31 07/15/24 09:08 Laboratory Results - last 24 hr 07/14/24 20:20: Urine Color Yellow, Urine Appearance Clear, Urine pH 6.0, Ur Specific Shelton 1.020, Urine Protein Negative, Urine Glucose (UA) Negative, Urine Ketones Negative, Urine Blood Negative, Urine Nitrate Negative, Urine Bilirubin Negative, Urine Urobilinogen 0.2, Ur Leukocyte Esterase Negative, Urine RBC Occasional, Urine WBC None, Ur Squamous Epith Cells 3-5, Urine Bacteria None 07/14/24 22:10: Sodium 121 L, Potassium 4.2, Chloride 97 L, Carbon Dioxide 15 L, Anion Gap 13.2, BUN 38 H, Creatinine 1.00, Estimated Creat Clear 49, Estimated GFR 54 L, Est GFR ( Amer) 65, Glucose 67 L D, Calcium 8.8, Troponin I 0.02 07/14/24 : WBC 11.1 H, RBC 3.51 L, Hgb 12.9, Hct 40.2, MCV 114.5 H, MCH 36.8 H, MCHC 32.1, RDW 13.4, Plt Count 477 H, MPV 9.3, Neut % (Auto) 84.4 H, Lymph % (Auto) 7.6 L, Woodson % (Auto) 6.9, Eos % (Auto) 0.4, Baso % (Auto) 0.7, Neut # (Auto) 9.3 H, Lymph # (Auto) 0.8, Woodson # (Auto) 0.8, Eos # (Auto) 0.1, Baso # (Auto) 0.1, Sodium 122 L, Potassium 4.2, Chloride 94 L, Carbon Dioxide 22, Anion Gap 10.2, BUN 42 H, Creatinine 1.00, Estimated Creat Clear 49, Estimated GFR 54 L, Est GFR ( Amer) 65, Glucose 93, Calcium 9.5, Phosphorus 3.8, Magnesium 1.6, Total Bilirubin 1.1, AST 35, ALT 24, Alkaline Phosphatase 197 H, Troponin I 0.02, Total Protein 6.4, Albumin 3.7, Globulin 2.7, Albumin/Globulin Ratio 1.4, Lipase 104, TSH 7.36 H, Thyroxine (T4) 14.1 H, HIV 1&2 Antibody Rapid Nonreactive 07/15/24 01:15: Troponin I 0.02 07/15/24 03:30: Troponin I 0.02, Procalcitonin 0.109 07/15/24 04:03: Urine Creatinine 29 07/15/24 06:32: WBC 9.6, RBC 3.13 L, Hgb 11.8 L, Hct 36.3 L, MCV 116.1 H, MCH 37.7 H, MCHC 32.5, RDW 13.5, Plt Count 361, MPV 8.9, Neut % (Auto) 72.7, Lymph % (Auto) 16.5, Woodson % (Auto) 9.4 H, Eos % (Auto) 0.5, Baso % (Auto) 0.9, Neut # (Auto) 7.0, Lymph # (Auto) 1.6, Woodson # (Auto) 0.9, Eos # (Auto) 0.0, Baso # (Auto) 0.1, Sodium 123 L, Potassium 3.3 L D, Chloride 97 L, Carbon Dioxide 20 L, Anion Gap 9.3, BUN 34 H, Creatinine 1.00, Estimated Creat Clear 50, Estimated GFR 54 L, Est GFR ( Amer) 65, Glucose 98 D, Calcium 8.8, Phosphorus 3.2, Magnesium 1.6 I & O for Labs for Last 24 Hours: Intake & Output 07/12/24 07/13/24 07/14/24 07/15/24 23:59 23:59 23:59 23:59 Intake Total 530 / 530 Output Total 1750 / 1750 350 / 350 Balance -1750 / -1750 180 / 180 Weight 146 lb 148 lb 3.257 oz Results Labs 07/15/24 06:32 07/15/24 10:08 Labs: Laboratory Results - last 24 hr 07/14/24 20:20: Urine Color Yellow, Urine Appearance Clear, Urine pH 6.0, Ur Specific Shelton 1.020, Urine Protein Negative, Urine Glucose (UA) Negative, Urine Ketones Negative, Urine Blood Negative, Urine Nitrate Negative, Urine Bilirubin Negative, Urine Urobilinogen 0.2, Ur Leukocyte Esterase Negative, Urine RBC Occasional, Urine WBC None, Ur Squamous Epith Cells 3-5, Urine Bacteria None 07/14/24 22:10: Sodium 121 L, Potassium 4.2, Chloride 97 L, Carbon Dioxide 15 L, Anion Gap 13.2, BUN 38 H, Creatinine 1.00, Estimated Creat Clear 49, Estimated GFR 54 L, Est GFR ( Amer) 65, Glucose 67 L D, Calcium 8.8, Troponin I 0.02 07/14/24 : WBC 11.1 H, RBC 3.51 L, Hgb 12.9, Hct 40.2, MCV 114.5 H, MCH 36.8 H, MCHC 32.1, RDW 13.4, Plt Count 477 H, MPV 9.3, Neut % (Auto) 84.4 H, Lymph % (Auto) 7.6 L, Woodson % (Auto) 6.9, Eos % (Auto) 0.4, Baso % (Auto) 0.7, Neut # (Auto) 9.3 H, Lymph # (Auto) 0.8, Woodson # (Auto) 0.8, Eos # (Auto) 0.1, Baso # (Auto) 0.1, Sodium 122 L, Potassium 4.2, Chloride 94 L, Carbon Dioxide 22, Anion Gap 10.2, BUN 42 H, Creatinine 1.00, Estimated Creat Clear 49, Estimated GFR 54 L, Est GFR ( Amer) 65, Glucose 93, Calcium 9.5, Phosphorus 3.8, Magnesium 1.6, Total Bilirubin 1.1, AST 35, ALT 24, Alkaline Phosphatase 197 H, Troponin I 0.02, Total Protein 6.4, Albumin 3.7, Globulin 2.7, Albumin/Globulin Ratio 1.4, Lipase 104, TSH 7.36 H, Thyroxine (T4) 14.1 H, HIV 1&2 Antibody Rapid Nonreactive 07/15/24 01:15: Troponin I 0.02 07/15/24 03:30: Troponin I 0.02, Procalcitonin 0.109 07/15/24 04:03: Urine Creatinine 29 07/15/24 06:32: WBC 9.6, RBC 3.13 L, Hgb 11.8 L, Hct 36.3 L, MCV 116.1 H, MCH 37.7 H, MCHC 32.5, RDW 13.5, Plt Count 361, MPV 8.9, Neut % (Auto) 72.7, Lymph % (Auto) 16.5, Woodson % (Auto) 9.4 H, Eos % (Auto) 0.5, Baso % (Auto) 0.9, Neut # (Auto) 7.0, Lymph # (Auto) 1.6, Woodson # (Auto) 0.9, Eos # (Auto) 0.0, Baso # (Auto) 0.1, Sodium 123 L, Potassium 3.3 L D, Chloride 97 L, Carbon Dioxide 20 L, Anion Gap 9.3, BUN 34 H, Creatinine 1.00, Estimated Creat Clear 50, Estimated GFR 54 L, Est GFR ( Amer) 65, Glucose 98 D, Calcium 8.8, Phosphorus 3.2, Magnesium 1.6 Assessment and Plan *Assessment and plan (1) Anorexia: Status: Acute Category: Medical Code(s): R63.0 - Anorexia (2) Nausea: Status: Acute Category: Medical Code(s): R11.0 - Nausea (3) Abnormal weight loss: Status: Acute Category: Medical Code(s): R63.4 - Abnormal weight loss (4) Aversion to food: Status: Acute Category: Medical Code(s): R63.39 - Other feeding difficulties Plan 1. Loss of appetite/anorexia. I do feel that this directly relates to her abnormal serum electrolytes with hyponatremia and hypokalemia. Correction of these electrolytes is ongoing and she is already responding with improved mental status and appetite. Based upon her labs and imaging, I do not feel that we need to pursue endoscopic evaluation. I do suspect that this will improve overall with her correction of electrolytes. Certainly, thyroid disease can play a role as well. She did appear to be eating well this morning. 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 This may entail doing CT angiography for further evaluation and referral to vascular surgery. I would also consider adding an appetite stimulant short-term (megestrol). I do note that she had some thickening of the duodenum which was nonspecific. 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 This was moderate to severe. If she does not respond to correction of electrolytes, I would consider mesenteric angiography. Abdominal angina is abdominal pain after eating that occurs in individuals with ongoing poor blood supply to their small intestines known as chronic mesenteric ischemia. Most persons with intestinal angina will have mid upper abdominal pain that is crampy, dull and aching that occurs within 15 minutes after a meal and will subside over 1-2 hours.. Most patients with this also experienced moderate weight loss. The vast majority will have evidence of atherosclerotic or plaque disease within the aorta but most cases of chronic mesenteric ischemia are caused by atherosclerotic narrowing of the origins of the celiac or superior mesenteric arteries. Atherosclerosis of the mesenteric vessels is fairly common. However consequences of mesenteric arterial disease are rare because of the large collateral network of arterial vessel second formed to compensate for reduced flow. Typically, almost 60% are smokers. Most have evidence of other peripheral vascular, coronary vascular or cerebrovascular disease. The failure to identify a specific etiology in patients with otherwise unexplained chronic abdominal pain, weight loss, and food aversion should suggest chronic mesenteric ischemia. The diagnosis is supported by the imaging that demonstrates high-grade stenosis or occlusion of two or more mesenteric vessels (i.e. celiac artery, superior mesenteric artery or inferior mesenteric artery). Patients with stenosis in only one of the three mesenteric arteries do not typically exhibit symptoms; however, a complete occlusion of a single artery may be the cause of intestinal angina in approximately 5 percent of patients, particularly in association with prior gastrointestinal surgery that has disrupted the collateral circulation..
[2024-07-15 10:30] LABS: Sodium 121 mmol/L (136-145)
[2024-07-15] MEDS: TAMSULOSIN 0.4MG CAPSULE 0.4 MG PO (12:50)
[2024-07-15 16:34] LABS: Sodium 123 mmol/L (136-145)
[2024-07-15] MEDS: BENZONATATE 100MG CAPSULE 100 MG PO (17:26)
[2024-07-15] MEDS: TRAMADOL 50MG TABLET 50 MG PO (17:26)
--- NOTE | 2024-07-15 17:55 | PC.NURSE ---
Patient a&ox4 and vss. Patient had one c/o pain and has had 3 bowel movements this shift. Patient has tolerated diet And has eaten some of each meal. Patient has no c/o nausea
[2024-07-15] MEDS: PRAVASTATIN 40MG TAB 40 MG PO (20:06)
[2024-07-15] MEDS: CARVEDILOL 3.125MG TABLET 3.125 MG PO (20:06)
[2024-07-16] VITALS: BP 104/59; PULSE 71; RESP 16; TEMP 36.9; O2SAT 96
[2024-07-16 04:00] VITALS: BMI 23.2
--- NOTE | 2024-07-16 04:53 | PC.NURSE ---
Pt is a&ox4 and has tolerated room air. Lung sounds diminished and bowel sounds active in all quadrants. Pt denies pain and has not complained of any nausea. Todd catheter has remained in place draining clear yellow urine. She is currently asleep with call light within reach.
[2024-07-16 05:51] VITALS: BP 117/72; PULSE 78; RESP 18; TEMP 36.9; O2SAT 95
[2024-07-16] MEDS: LEVOTHYROXINE 75MCG (0.075MG) TAB 75 MCG PO (06:06)
[2024-07-16 06:57] LABS: Anion Gap 4.9 mEq/L (5-15); Blood Urea Nitrogen 23 mg/dl (7-17); Calcium 8.7 mg/dl (8.4-10.2); Carbon Dioxide 23 mmol/L (22.0-30.0); Chloride 98 mmol/L (98-107); Creatinine Clearance Estimated 49 mL/min (50-200); Estimated Glomerular Filt Rate 54 ml/min (>60); GFR (African American) 65 ML/MIN (>60); Glucose 87 mg/dl (74-100); Magnesium 1.8 mg/dl (1.6-2.3); Potassium 3.9 mmoL/L (3.5-5.1); Sodium 122 mmol/L (136-145)
[2024-07-16 07:11] LABS: Basophils # 0.1 K/mm3 (0-0.2); Basophils % 1.1 % (0.1-2.0); Eosinophils # 0.1 K/mm3 (0.0-0.4); Eosinophils % 1.3 % (0.1-12.0); Lymphocytes # 1.7 K/mm3 (0.7-4.5); Lymphocytes % 22.3 % (10-50); Mean Corpuscular HGB Conc 32.4 g/dL (31.8-35.4); Mean Corpuscular Hemoglobin 37.2 pg (27.0-31.2); Mean Corpuscular Volume 114.9 fl (81-99); Mean Platelet Volume 7.5 fl (7.4-10.4); Monocytes # 0.6 K/mm3 (0.1-1.0); Monocytes % 7.6 % (1.7-9.3); Neutrophils # 5.1 K/mm3 (1.8-7.8); Neutrophils % 67.7 % (37.0-80.0); Platelet Count 353 K/mm3 (142-424); Red Blood Count 2.96 M/mm3 (4.20-5.40); Red Cell Distribution Width 13.1 % (11.5-17.5); White Blood Count 7.6 K/mm3 (4.8-10.8)
--- NOTE | 2024-07-16 07:29 | EXP.DC.SUM ---
General Admission date:: 07/14/24 Discharge date: 07/16/24 HPI HPI HPI: Mrs. Culp is a 78-year-old female with reduced appetite and anorexia with weight loss. She also has had altered mental status. She presented with hyponatremia And and her sodium level was 122. This is slowly being corrected. The patient also had hypokalemia and hypochloremia. She had elevated BUN at 42 (volume depletion). The patient reports no abdominal pain, bloating, early satiety or constipation. She has lost 15 pounds in the last couple of weeks. She was being treated at [facility] with Zofran and Phenergan. She has lost approximately 15 pounds in the last 2 or 3 weeks. She is more alert today than she has been in the last few days. Her CAT scan had shown bladder retention as well as some thickening in the duodenum. She has had no recent upper endoscopy or colonoscopy. Patient with past medical history of [place], hyperlipidemia, PMR/rheumatoid arthritis on Plaquenil/prednisone, hypothyroidism presents with altered mental status, decreased p.o. intake, and decreased urination. Patient presented to hospital with daughter who states patient has been confused and not eating much over past 2 weeks. Patient diagnosed with pelvic fracture 06/29/2024, and transferred to for management. Patient discharged from within past 2 weeks, and sent to [facility] for short-term rehab. Daughter states that patient's p.o. intake decreased since admission to [facility]. Patient admits to nausea with eating. I just do not feel like eating because of the nausea. Complains of decreased urine output. Todd placed in emergency room with 1 L urine removed. Denies fevers, chills, known sick contacts, abdominal pain, chest pain, productive cough, blurry vision, headaches. Daughter present with patient and collaborates the story. Daughter also states patient has suffered from confusion/altered mental status for 2 weeks. Daughter states that residential also noted same confusion complaints. Patient was alert, awake, oriented to person and location at time of evaluation by Dr. Beasley. Patient able to answer all of Dr. Beasley's questions including her medical history and current medications without delay/errors. Hospital Course Hospital Course Hospital Course: 78-year-old female with past medical history of recent pelvic fracture treated at [facility] then sent to [facility] for short-term rehab, CAD, hypertension, hypothyroidism, hyperlipidemia, rheumatoid/PMR on Plaquenil/prednisone. Patient presents complaining of 2 weeks swallowing issues complicated by nausea, altered mental status decreased urination without belly discomfort. Upon further interview, patient reports poor p.o. intake due to not liking food over the past few weeks at the hospital and residential. Adjustments made to diet. Did well eating during admission. Voiding independently after removal of catheter. Problems addressed as follows. Stable to discharge back to nursing facility. Adult failure to thrive: Chronic hyponatremia ?Admitted for nutritional evaluation and supplementation. Patient overall doing well. No concern for achalasia, nausea or vomiting. Tolerating p.o. intake with bowel movements. Recommend decreasing bowel regimen to as needed only. Supplements with trays including boost. Patient states she likes to snack. Recommend reevaluation of nutrition at nursing facility to accommodate patient's taste and feeding schedule preference. No signs of refeeding syndrome on admission. Electrolytes with normal potassium and magnesium. Sodium stable in the low to mid 120s, this is chronic over years per chart review. Kidney function normal. No signs of infection with white count of 7.6. Dehydration: ?BUN 38, creatinine 1.0 on admission implying BUN/creatinine ratio of 38. UA specific gravity 1.020. Dehydration likely secondary to poor p.o. intake. IV fluids initially. Tolerating p.o. intake thereafter. BUN improved to 23. Repeat labs in 1 week with CBC, CMP, magnesium. Acute urinary retention: ? I reviewed CT abdomen/pelvis done in emergency room prior to my assessment noting moderate bladder distention. Although patient states that this occurred 2 to 3 years ago, patient also states I did not go to the doctor and it just went away on its own. Large urinary retention noted in emergency room, with Todd catheter placed and 1 L diuresis noted. Continue Todd drainage. [facility] but declined. I ordered UA and urine culture looking for signs of infection. I also ordered procalcitonin and if elevated will consider starting antibiotics for empirical bacterial coverage. I personally reviewed patient's UA noting no leukoesterase/nitrates/bacteria. Therefore and less procalcitonin elevated no indication to initiate antibiotic therapy. Catheter was removed on morning of discharge. Patient voided independently at least 500 cc of urine. Initiated on tamsulosin 0.4 mg daily. Continue at discharge to promote bladder relaxation and complete him being. Patient was not altered during admission. Alert and oriented x 3. Family at bedside concurs that patient's mentation is normal. Stable to discharge Hypothyroidism: Patient appears to be compliant with home Synthroid. Admission TSH 7.36, T4 14.1 which are slightly high values. Continue Synthroid at 112 mcg daily given TSH of 7.3. Repeat TSH level in 6 weeks GI evaluated patient due to her feeding difficulties and failure to thrive. No inpatient interventions planned. Recommend that if patient presents again with failure to thrive or has any abdominal pain/progressive weight loss then consider mesenteric angiography to rule out chronic mesenteric angina. Total time spent on discharge 32 minutes in counseling, documentation, chart review, and direct care with patient. Exam Data for Last 24 hours Vital signs and Labs for Last 24 Hours: Temp Pulse Resp BP Pulse Ox O2 Del Method 98.4 F 78 18 117/72 95 Room Air 07/16/24 05:51 07/16/24 05:51 07/16/24 05:51 07/16/24 05:51 07/16/24 05:51 07/16/24 06:32 Laboratory Results - last 24 hr 07/15/24 06:32: Phosphorus 3.2 07/15/24 10:08: Sodium 121 L 07/15/24 16:17: Sodium 123 L 07/16/24 06:20: WBC 7.6, RBC 2.96 L, Hgb 11.0 L, Hct 34.0 L, MCV 114.9 H, MCH 37.2 H, MCHC 32.4, RDW 13.1, Plt Count 353, MPV 7.5, Neut % (Auto) 67.7, Lymph % (Auto) 22.3, [place] % (Auto) 7.6, Eos % (Auto) 1.3, Baso % (Auto) 1.1, Neut # (Auto) 5.1, Lymph # (Auto) 1.7, [place] # (Auto) 0.6, Eos # (Auto) 0.1, Baso # (Auto) 0.1, Sodium 122 L, Potassium 3.9, Chloride 98, Carbon Dioxide 23, Anion Gap 4.9 L, BUN 23 H D, Creatinine 1.00, Estimated Creat Clear 49, Estimated GFR 54 L, Est GFR ( Amer) 65, Glucose 87, Calcium 8.7, Magnesium 1.8 D I & O for Last 24 hours: Intake & Output 07/13/24 07/14/24 07/15/24 07/16/24 23:59 23:59 23:59 23:59 Intake Total 1190 / 1440 250 / 250 Output Total 1750 / 1750 1100 / 1450 500 / 500 Balance -1750 / -1750 90 / -10 -250 / -250 Weight 66.224 kg 67.22 kg 65.635 kg Constitutional Constitutional: no acute distress, average body habitus, chronically ill appearing and cooperative *Routine HEENT Exam Head: Present normocephalic Eye: Present EOMI and PERRL ENT: Present mucous membranes moist *Routine Neck Exam Neck: Present supple; Absent lymphadenopathy *Routine Respiratory Exam Respiratory: Present CTA bilaterally; Absent rhonchi, wheezes or crackles *Routine Cardiovascular Exam Cardiovascular: Present RRR *Routine Abdominal Exam Abdominal: Present soft and normoactive bowel sounds; Absent tenderness *Routine Rectal Exam Patient deferred: visual exam *Routine Exam Patient deferred: external exam *Routine Extremities Exam Extremities: Absent cyanosis, clubbing or edema *Routine Skin Exam Skin: Present intact and warm; Absent rash *Routine Neurological Exam Neurological: Present alert, oriented X3 and moving all extremities; Absent altered mental status Results Data Completed and Pending Labs on day of discharge: Labs from last 24 hours 07/16/24 07/15/24 07/15/24 06:20 16:17 10:08 WBC 7.6 RBC 2.96 L Hgb 11.0 L Hct 34.0 L MCV 114.9 H MCH 37.2 H MCHC 32.4 RDW 13.1 Plt Count 353 MPV 7.5 Neut % (Auto) 67.7 Lymph % (Auto) 22.3 [place] % (Auto) 7.6 Eos % (Auto) 1.3 Baso % (Auto) 1.1 Neut # (Auto) 5.1 Lymph # (Auto) 1.7 [place] # (Auto) 0.6 Eos # (Auto) 0.1 Baso # (Auto) 0.1 Sodium 122 L 123 L 121 L Potassium 3.9 Chloride 98 Carbon Dioxide 23 Anion Gap 4.9 L BUN 23 H D Creatinine 1.00 Estimated Creat Clear 49 Estimated GFR 54 L Est GFR ( Amer) 65 Glucose 87 Calcium 8.7 Phosphorus Magnesium 1.8 D 07/15/24 06:32 WBC RBC Hgb Hct MCV MCH MCHC RDW Plt Count MPV Neut % (Auto) Lymph % (Auto) [place] % (Auto) Eos % (Auto) Baso % (Auto) Neut # (Auto) Lymph # (Auto) [place] # (Auto) Eos # (Auto) Baso # (Auto) Sodium Potassium Chloride Carbon Dioxide Anion Gap BUN Creatinine Estimated Creat Clear Estimated GFR Est GFR ( Amer) Glucose Calcium Phosphorus 3.2 Magnesium DS: Diagnosis Discharge Diagnosis (1) Anorexia: Status: Acute Code(s): R63.0 - Anorexia (2) Nausea: Status: Acute Code(s): R11.0 - Nausea (3) Abnormal weight loss: Status: Acute Code(s): R63.4 - Abnormal weight loss (4) Aversion to food: Status: Acute Code(s): R63.39 - Other feeding difficulties Meds Home Medications and Allergies Home Medications ?Medication ?Instructions ?Recorded ?Confirmed ?Type levothyroxine 112 mcg tablet 112 mcg PO DAILYDM 04/24/18 07/15/24 History simvastatin 20 mg tablet 20 mg PO HS 04/24/18 07/15/24 History hydroxychloroquine 200 mg tablet 200 mg PO DAILY 05/11/22 07/15/24 History cetirizine 10 mg capsule 10 mg PO DAILY 07/01/22 07/15/24 History prednisone 5 mg tablet 5 mg PO DAILY 07/01/22 07/15/24 History potassium chloride 10 mEq 10 meq PO DAILY #30 caps 06/02/24 07/15/24 Rx capsule,extended release acetaminophen 500 mg tablet 500 mg PO Q6HP PRN Mild Pain 07/15/24 07/15/24 History (Scale Score 1-4) aspirin 81 mg tablet,delayed 81 mg PO DAILY 07/15/24 07/15/24 History release benzonatate 100 mg capsule 100 mg PO TIDP PRN Cough 07/15/24 07/15/24 History carvedilol 3.125 mg tablet 3.125 mg PO BID 07/15/24 07/15/24 History cyclobenzaprine 5 mg tablet 5 mg PO TID 07/15/24 07/15/24 History hydroxyzine pamoate 25 mg capsule 25 mg PO Q6HP PRN Anxiety 07/15/24 07/15/24 History melatonin 3 mg tablet 3 mg PO HSP PRN Insomnia 07/15/24 07/15/24 History promethazine 25 mg tablet 25 mg PO Q6HP PRN Nausea And 07/15/24 07/15/24 History Vomiting tramadol 50 mg tablet 50 mg PO Q6HP PRN Moderate Pain 07/15/24 07/15/24 History (Scale Score 5-6) enoxaparin 40 mg/0.4 mL 40 mg (0.4 mL) SQ DAILY #0 mL 07/16/24 Rx subcutaneous syringe sennosides 8.6 mg-docusate sodium 2 tab-cap (2 x 8.6-50 mg) PO BID 07/16/24 07/15/24 Rx 50 mg tablet (Senna Plus) PRN Constipation 30 days #0 tabs tamsulosin 0.4 mg capsule 0.4 mg PO DAILY 30 days #30 caps 07/16/24 Rx New Prescriptions to Start Prescriptions: Kp [place] Allergies Allergy/AdvReac Type Severity Reaction Status Date / Time Sulfa (Sulfonamide Allergy Unknown Hives Verified 07/14/24 18:43 Antibiotics) [SULFA (SULFONAMIDE ANTIBIOTICS)] codeine Allergy Vomiting Verified 07/15/24 00:25 Penicillins Allergy Hives Verified 07/14/24 18:43 Discharge Plan Disposition Patient Disposition: er Condition: Good Discharge Order Discharge Orders: Discharge Order (Routine); Ordered 07/16/24 Ordered By: Kp Marshall Follow up Plan Prescriptions/Medication Reconciliation: New enoxaparin 40 mg/0.4 mL Syringe 40 mg SQ DAILY Qty: 0 0RF tamsulosin 0.4 mg Capsule 0.4 mg PO DAILY 30 Days Qty: 30 0RF Continued hydroxychloroquine 200 mg tablet 200 mg PO DAILY simvastatin 20 MG tablet 20 mg PO HS levothyroxine 112 MCG tablet 112 mcg PO DAILYDM prednisone 5 mg tablet 5 mg PO DAILY cetirizine 10 mg Capsule 10 mg PO DAILY potassium chloride 10 mEq capsule, extended release 10 meq PO DAILY Qty: 30 0RF melatonin 3 mg Tablet 3 mg PO HSP PRN (Reason: Insomnia) aspirin 81 mg Tablet,Delayed Release (Dr/Ec) 81 mg PO DAILY acetaminophen 500 mg Tablet 500 mg PO Q6HP PRN (Reason: Mild Pain (Scale Score 1-4)) benzonatate 100 mg Capsule 100 mg PO TIDP PRN (Reason: Cough) hydroxyzine pamoate 25 mg Capsule 25 mg PO Q6HP PRN (Reason: Anxiety) tramadol 50 mg Tablet 50 mg PO Q6HP PRN (Reason: Moderate Pain (Scale Score 5-6)) carvedilol 3.125 mg Tablet 3.125 mg PO BID Rx Instructions: must administer with a meal/food cyclobenzaprine 5 mg Tablet 5 mg PO TID promethazine 25 mg Tablet 25 mg PO Q6HP PRN (Reason: Nausea And Vomiting) Changed sennosides-docusate sodium [Senna Plus] 8.6-50 mg Tablet 2 tab-cap PO BID PRN (Reason: Constipation) 30 Days Qty: 0 0RF Discontinued enoxaparin 30 mg/0.3 mL Syringe 30 mg SQ BID Problem Reconciliation Problems Reviewed?: Yes Patient Discharge Instructions ACTIVITY: Continue current activity and Ambulate as tolerated DIET: continue same diet Patient Instructions: DI for Hyponatremia, DI for Failure to Thrive, DI for Urinary Retention in Women, Catheter-Associated Urinary Tract Infection Print Language: Yakut Providers Primary Care Provider: Wyatt Torres Admit Provider: Mejia Weiner Attending Provider: Mejia Weiner
[2024-07-16 07:51] LABS: Phosphorous 2.9 mg/dl (2.5-4.5)
[2024-07-16 08:00] VITALS: BP 138/78; PULSE 84; RESP 18; TEMP 36.6; O2SAT 92
[2024-07-16] MEDS: CYCLOBENZAPRINE 10MG TABLET 5 MG PO ×2 (08:20→13:53)
[2024-07-16] MEDS: ASPIRIN EC 81MG TABLET 81 MG PO (08:20)
[2024-07-16] MEDS: POTASSIUM CHLORIDE 20MEQ TAB 20 MEQ PO (08:20)
[2024-07-16] MEDS: CARVEDILOL 3.125MG TABLET 3.125 MG PO (08:20)
[2024-07-16] MEDS: HYDROXYCHLOROQUINE SULFATE 200MG TABLET 200 MG PO (08:20)
[2024-07-16] MEDS: TAMSULOSIN 0.4MG CAPSULE 0.4 MG PO (08:20)
[2024-07-16] MEDS: ENOXAPARIN 40MG/0.4ML SYRINGE 40 MG SQ (08:20)
[2024-07-16] MEDS: predniSONE 5MG TAB 5 MG PO (08:21)
[2024-07-16] MEDS: LORATADINE 10MG TABLET 10 MG PO (08:21)
[2024-07-16 08:35] LABS: HCV Ab Non Reactive (Non Reactive)
--- NOTE | 2024-07-16 09:56 | EXP.PN ---
Subjective *Date: 07/16/24 *Time: 09:56 Interval history: Patient markedly improved and eating well now. No abdominal complaints Exam Data for Last 24 hours Vital signs and Labs for Last 24 Hours: Temp Pulse Resp BP Pulse Ox O2 Del Method 97.9 F 84 18 138/78 92 L Room Air 07/16/24 08:00 07/16/24 08:00 07/16/24 08:00 07/16/24 08:00 07/16/24 08:00 07/16/24 06:32 Laboratory Results - last 24 hr 07/15/24 06:32: Hepatitis C Antibody Non reactive, Hep C Ab Comment Comment 07/15/24 10:08: Sodium 121 L 07/15/24 16:17: Sodium 123 L 07/16/24 06:20: WBC 7.6, RBC 2.96 L, Hgb 11.0 L, Hct 34.0 L, MCV 114.9 H, MCH 37.2 H, MCHC 32.4, RDW 13.1, Plt Count 353, MPV 7.5, Neut % (Auto) 67.7, Lymph % (Auto) 22.3, [place] % (Auto) 7.6, Eos % (Auto) 1.3, Baso % (Auto) 1.1, Neut # (Auto) 5.1, Lymph # (Auto) 1.7, [place] # (Auto) 0.6, Eos # (Auto) 0.1, Baso # (Auto) 0.1, Sodium 122 L, Potassium 3.9, Chloride 98, Carbon Dioxide 23, Anion Gap 4.9 L, BUN 23 H D, Creatinine 1.00, Estimated Creat Clear 49, Estimated GFR 54 L, Est GFR ( Amer) 65, Glucose 87, Calcium 8.7, Phosphorus 2.9, Magnesium 1.8 D I & O for Last 24 hours: Intake & Output 07/13/24 07/14/24 07/15/24 07/16/24 23:59 23:59 23:59 23:59 Intake Total 1190 / 1440 520 / 520 Output Total 1750 / 1750 1100 / 1450 500 / 500 Balance -1750 / -1750 90 / -10 Weight 146 lb 148 lb 3.116 oz 144 lb 11.2 oz Assessment and Plan *Assessment and plan (1) Aversion to food: Status: Acute Category: Medical Code(s): R63.39 - Other feeding difficulties (2) Anorexia: Status: Acute Category: Medical Code(s): R63.0 - Anorexia (3) Abnormal weight loss: Status: Acute Category: Medical Code(s): R63.4 - Abnormal weight loss Plan 1. Feeding difficulties/loss of appetite. This has improved with correction of electrolytes. The patient is going home today. If patient presents again with failure to thrive or has any abdominal pain/progressive weight loss then I would consider mesenteric angiography to rule out chronic mesenteric angina.
--- NOTE | 2024-07-16 12:42 | PC.NURSE ---
Addendum entered by Kiki Preciado RN 07/16/24 12:44: aware and ok with post void residual amount Original Note: Patient voided 500 mL after removing savage catheter, post void residual is 124.
--- NOTE | 2024-07-16 13:53 | PC.NURSE ---
report called to carlos sharp
[2024-07-18 06:53] LABS: Osmolality, Urine 438 mOsmol/kg (.)
--- OUTSIDE RECORDS SUMMARY | 2024-08-05 10:17 | XMS_ITS ---
Author Organization [facility] Address [address] [facility] [address] [facility] [address] [place] [id number] Care Team Providers Care Inspector Weights And Measures Name Role Phone Raul Torres Primary Care Provider [phone] REASON FOR VISIT Message Encounters Encounter Location Date Provider Diagnosis Jared [address] [facility] [address] [facility] [address] [place] [id number] 08/04/2024 Raul Torres PLAN OF TREATMENT Next Appt Details Provider Name:Raul Corral, 08/19/2024 11:45:00 AM, [address] [facility], [address], [place], [phone],
--- OUTSIDE RECORDS SUMMARY | 2024-08-05 10:17 | XMS_ITS ---
Author Organization [facility] Address [address] [facility] [address] [facility] [address] [place] [id number] Care Team Providers Care Ultrasound Applications Specialist Name Role Phone Raul Torres Primary Care Provider REASON FOR VISIT feet swelling Encounters Encounter Location Date Provider Diagnosis Jared [address] [facility] [address] [facility] [address] [place] [id number] 08/05/2024 Raul Torres PLAN OF TREATMENT Next Appt Details Provider Name:Raul Corral, 08/19/2024 11:45:00 AM, [address] [facility] [address] [facility], [address], [place], [id number],
--- OUTSIDE RECORDS SUMMARY | 2024-08-05 10:18 | XMS_ITS | Patient Health Record ---
[facility] Address [address] [facility] [address] [place] [id number] Care Team Providers Care Director Account Management Name Role Phone Raul Torres Primary Care Provider Channing Garcia Unavailable [phone] Marie Helm Unavailable [phone] ALLERGIES Allergen (clinical drug ingredient) Drug/Non Drug Allergy documented on EMR Reaction Allergy Type Onset Date Status amoxicillin Amoxicillin high dose causes nausea Drug Allergy Active amoxicillin / clavulanate Augmentin nausea Drug Allergy Active cefaclor Cefaclor nausea Drug Allergy Active cefdinir Cefdinir GI upset Drug Allergy Active duloxetine Cymbalta GI upset Drug Allergy Active Decongestant hives Drug Allergy Acti ve gabapentin Gabapentin itching Drug Allergy Activ e Lortab Unknown Drug Allergy Active naproxen Naprosyn rash Drug Allergy Active acetaminophen / oxycodone Percocet Unknown Drug Allergy Active azithromycin Zithromax itching Drug Allergy Acti ve Substance with sulfonamide structure and antibacterial mechanism of action (substance) Sulfa Antibiotics nausea Drug Allergy Active RESULTS Component Value Reference Range Notes MRI : Spine, Cervical, witho ut contrast Reviewed date:05/01/2024 11:19:03 PM Interpretation: Performing Lab: Notes/Report: Urinalysis - Inhouse Reviewed date:06/12/2024 11:48:26 AM Interpretation: Performing Lab: Notes/Report: Color/Clarity yellow/clear Leuk neg Nitrite neg Urobili 3.2 Protein neg pH 7.0 Blood neg Sp. Gr. 1.015 Ketone neg Bili neg Gluc neg bacteria WBC RBC P-Basic Metabolic Panel (BMP ) Reviewed date:06/23/2024 07:53:54 PM Interpretation:Na 129, chlor 94 Performing Lab: Notes/Report: Test performed by [facility], [facility] [address] [place] [address] , [address], [place] [address] Gilmer Lowe MD, Supply Cataloguer CLIA: [id number] Sodium 129 135-145 mmol/L Potassium 4.8 3.5-5.3 mmol/L Chloride 94 97-108 mmol/L CO2 24 22-32 mmol/L Glucose 98 65-99 mg/dL BUN 15 8-23 mg/dL Creatinine 0.83 0.50-1.00 mg/dL Calcium 9.4 8.6-10.4 mg/dL eGFR by Creatinine 72 >59 mL/min/1.73m2 P-Magnesium Reviewed date:06/23/2024 07:53:54 PM Interpretation:Normal Performing Lab: Notes/Report: Test performed by [facility] [address] , [place] [address] Gilmer Lowe MD, Supply Cataloguer CLIA: [id number] Magnesium 2.0 1.6-2.4 mg/dL TEN-UTI panel Reviewed date:06/16/2024 08:37:43 PM Interpretation:Negative Performing Lab: Notes/Report: Negative H-Urinalysis (cathed specime n) Reviewed date:07/16/2024 10:29:17 PM Interpretation: Performing Lab: Notes/Report: UCOLCATH YELLOW Yellow UAPPCATH CLEAR Clear UPHCATH 6.0 5.0-8.5 USGCATH 1.020 1.005-1.030 UPROCATH Negative Negative UGLUCATH Negative Negative UKETCATH Negative Negative UBLDCATH Negative Negative UNITCATH Negative Negative UBILCATH Negative Negative UUROCATH 0.2 0.2 EU/dl ULEUCATH Negative Negative UMICUCATH URINE MICROSCOPIC MICROSCOPIC URBCCATH None 0-3 # /hpf UWBCCATH None 0-3 #/hpf USQEPICATH None 0-5 #/hpf BMP (Not yet reviewed by pro vider) Interpretation: Performing Lab: Notes/Report: sodium potassium chloride CO2 glucose BUN/CR calcium glycohemoglobin(HgA1C)) TSH T4 PSA total cholesterol triglycerides LDL HDL protein albumin total bilirubin SGOT SGPT alkaline phos dilantin level digoxin level uric acid BNP Magnesium WBC RBC Hgb Hct MCV MCH MCHC platlets % Granulocytes %Lymphocytes %monocytes M-Urine Culture(cathed speci men) Reviewed date:07/17/2024 10:44:13 PM Interpretation:Negative Performing Lab: Notes/Report: CUUCATH No growth. H-BMP Reviewed date:06/02/2024 08:23:18 AM Interpretation: Performing Lab: Notes/Report: NA 126 136-145 mmol/L K 3.1 3.5-5.1 mmoL/L CL 93 98-107 mmol/L CO2 30 22.0-30.0 mmol/L GAP 6.1 5-15 mEq/L BUN 11 7-17 mg/dl Delta: 15 on 06/01/24 CREATT 0.70 0.52-1.04 mg/dl Delta: 1.00 on 06/01/24 CRCLE 52 50-200 mL/min GFRAA 98 >60 ML/MIN Delta: 65 on 06/01/24 EGFR 81 >60 ml/min GLU 104 74-100 mg/dl CA 8.5 8.4-10.2 mg/dl H-Amylase Reviewed date:06/02/2024 08:43:47 AM Interpretation: Performing Lab: Notes/Report: ADALGISA 105 30-110 U/L H-CBC Reviewed date:06/02/2024 08:43:47 AM Interpretation: Performing Lab: Notes/Report: WBC 9.4 4.8-10.8 K/mm3 Delta: 12.6 o n 06/01/24 RBC 3.46 4.20-5.40 M/mm3 HGB 12.9 12.2-16.2 g/dL HCT 38.7 37.0-47.0 % MCV 111.7 81-99 fl MCH 37.3 27.0-31.2 pg MCHC 33.4 31.8-35.4 g/dL RDW 14.9 11.5-17.5 % PLT 287 142-424 K/mm3 MPV 8.1 7.4-10.4 fl NE% 79.9 37.0-80.0 % LY% 11.9 10-50 % MO% 7.3 1.7-9.3 % EO% 0.4 0.1-12.0 % BA% 0.6 0.1-2.0 % NE# 7.5 1.8-7.8 K/mm3 LY# 1.1 0.7-4.5 K/mm3 MO# 0.7 0.1-1.0 K/mm3 EO# 0.0 0.0-0.4 K/mm3 BA# 0.1 0-0.2 K/mm3 H-Urine Culture and Sensitiv ity Reviewed date:06/04/2024 09:05:08 AM Interpretation: Performing Lab: Notes/Report: CUU ORGANISM 1: Pseudomonas aeruginosa RX LOPEZ: R- Resistant S- Susceptible I- Intermediate * [facility] [place] Count 70,000 - 80,000 RX LOPEZ: R- Resistant S- Susceptible I- Intermediate * Not on [facility] CUU RX LOPEZ: R- Resistant S- Susceptible I- Intermediate * Not on [facility] CUU RX LOPEZ: R- Resistant S- Susceptible I- Intermediate * Not on [facility] Pseudomonas aeruginosa: REACTION RX LOPEZ: R- Resistant S- Susceptible I- Intermediate * [facility] Amikacin <=8 S RX LOPEZ: R- Resistant S- Susceptible I- Intermediate * [facility] Aztreonam 8 S RX LOPEZ: R- Resistant S- Susceptible I- Intermediate * [facility] Cefepime <=1 S RX LOPEZ: R- Resistant S- Susceptible I- Intermediate * [facility] Ceftazidime 4 S RX LOPEZ: R- Resistant S- Susceptible I- Intermediate * [facility] Ciprofloxacin 0.5 S RX LOPEZ: R- Resistant S- Susceptible I- Intermediate * [facility] Gentamicin <=2 S RX LOPEZ: R- Resistant S- Susceptible I- Intermediate * [facility] Levofloxacin 1 S RX LOPEZ: R- Resistant S- Susceptible I- Intermediate * [facility] Meropenem <=0.5 S RX LOPEZ: R- Resistant S- Susceptible I- Intermediate * [facility] Tobramycin <=2 S RX LOPEZ: R- Resistant S- Susceptible I- Intermediate * [facility] Piperacillin/Tazobac ta m 8/4 S RX LOPEZ: R- Resistant S- Susceptible I- Intermediate * Not on [facility] CUU RX LOPEZ: R- Resistant S- Susceptible I- Intermediate * Not on [facility] H-BMP Reviewed date:06/02/2024 08:43:47 AM Interpretation: Performing Lab: Notes/Report: NA 119 136-145 mmol/L K 3.5 3.5-5.1 mmoL/L Delta: 2.9 on 06/01/24-5 CL 91 98-107 mmol/L CO2 24 22.0-30.0 mmol/L GAP 7.5 5-15 mEq/L BUN 15 7-17 mg/dl CREATT 1.00 0.52-1.04 mg/dl CRCLE 49 50-200 mL/min GFRAA 65 >60 ML/MIN EGFR 54 >60 ml/min GLU 100 74-100 mg/dl CA 8.0 8.4-10.2 mg/dl H-UA Reviewed date:06/02/2024 08:43:47 AM Interpretation: Performing Lab: Notes/Report: Method to collect specimen clean catch UCOL YELLOW Yellow UAPP CLEAR Clear UPH 6.5 5.0-8.5 USG 1.010 1.005-1.030 UPRO Negative Negative UGLU Negative Negative UKET Negative Negative UBLD Negative Negative UNIT Negative Negative UBIL Negative Negative UURO 0.2 0.2 EU/dl ULEU 1+ Negative UMICU URINE MICROSCOPIC MICROSCOPIC UWBC 3-5 0-3 #/hpf USQEPI Occasional 0-5 #/hpf UBACT 1+ NONE /lpf P-PT/PTT Panel Reviewed date:06/29/2024 10:21:31 PM Interpretation: Performing Lab: Notes/Report: Test performed by [facility] [address] [place] [address] , [address], [place] [address] Gilmer Lowe MD, Supply Cataloguer CLIA: [id number] PT 10.5 9.5-12.2 sec INR 1.0 0.9-1.2 INR Reference Ranges for patients on anticoagulant therapy: RANGES: 2.0 - 3.0: Indications: Treatment of venous thrombosis or pulmonary embolism. Prevention of systemic embolism. Tissue heart valves. Acute myocardial infarction. Atrial fibrillation. 2.5 - 3.5: Indications: Recurrent embolism. Mechanical heart valves. Antiphospholipid antibodies. INR IS FOR USE IN STABILIZED ANTICOAGULATED PATIENTS. Elevated coagulation studies may be seen in patients with hematocrit of greater than 55%. Reference: Practical Diagnosis of Hematological Disorders. 3rd Edition. 2000. p 853. Partial Thromboplastin Time (PTT) 27.3 23.9-33.0 sec Heparin therapeutic range has not been validated for this assay. P-Iron Reviewed date:06/29/2024 10:21:31 PM Interpretation: Performing Lab: Notes/Report: Test performed by [facility] , [address], [place] [address] Gilmer Lowe MD, Supply Cataloguer CLIA: [id number] Iron 81 37-145 ug/dL Fibrinogen Reviewed date:06/29/2024 10:21:31 PM Interpretation: Performing Lab: Notes/Report: Test performed by [facility] , [place] [address] Gilmer Lowe MD, Supply Cataloguer CLIA: [id number] Fibrinogen 410 187-446 mg/dL P-Sed Rate (ESR) Reviewed date:06/29/2024 10:21:31 PM Interpretation: Performing Lab: Notes/Report: Test performed by [facility] , [address], [place] [address] Gilmer Lowe MD, Supply Cataloguer CLIA: [id number] Erythrocyte Sedimentation Rate (ESR), Automated 13 <31 mm/hr P-I-Fkxptxme Protein (CRP) Reviewed date:06/29/2024 10:21:31 PM Interpretation: Performing Lab: Notes/Report: Test performed by [facility] [place], [address], [place] [address] Gilmer Lowe MD, Supply Cataloguer CLIA: [id number] C-Reactive Protein (CRP) 0.31 <0.50 mg/dL P-Comprehensive Metabolic Pa rita (CMP) Reviewed date:06/29/2024 10:21:31 PM Interpretation: Performing Lab: Notes/Report: Test performed by [facility] [address] [place], [address], [place] [address] Gilmer Lowe MD, Supply Cataloguer CLIA: [id number] Sodium 128 135-145 mmol/L Potassium 4.1 3.5-5.3 mmol/L Chloride 91 97-108 mmol/L CO2 24 22-32 mmol/L Glucose 100 65-99 mg/dL BUN 17 8-23 mg/dL Creatinine 0.87 0.50-1.00 mg/dL Calcium 9.2 8.6-10.4 mg/dL eGFR by Creatinine 68 >59 mL/min/1.73m2 Protein 6.6 6.0-8.3 g/dL Albumin 4.4 3.5-5.3 g/dL Alkaline Phosphatase 155 35-121 IU/L ALT (SGPT) 19 <5-47 IU/L AST (SGOT) 20 <5-40 IU/L Bilirubin, Total 0.5 <0.2-1.2 mg/dL A/G Ratio 2.0 1.1-2.5 CBC Venipuncture (in house) Reviewed date:06/29/2024 10:21:31 PM Interpretation: Performing Lab: Notes/Report: wbc 11.8 3.5 - 10 lymph 11.6 15 - 50 mid 3.6 2 - 15 gran 84.8 35 - 80 rbc 3.52 3.5 - 5.5 hgb 13.2 11.5 - 16.5 hct 38.2 35 - 55 mcv 108.4 75 - 100 mch 37.5 25 - 35 mchc 34.6 31 - 38 platlet 303 100 - 400 Covid test (in house) Reviewed date:06/19/2024 04:06:30 PM Interpretation:Negative Performing Lab: Notes/Report: Negative Result: neg CBC Fingerstick (in house) Reviewed date:06/19/2024 04:10:02 PM Interpretation: Performing Lab: Notes/Report: wbc 11.3 3.5 - 10 lym 9.6 15 - 50 mid 3.9 2 - 15 gran 86.5 35 - 80 rbc 3.59 3.5 - 5.5 hgb 13.3 11.5 - 16.5 hct 39.5 35 - 55 mcv 110.1 75 - 100 mch 37.2 25 - 35 mchc 33.8 31 - 38 plat 286 100 - 400 P-TSH reflex to FT4 Reviewed date:06/02/2024 08:43:47 AM Interpretation:8.53 Performing Lab: Notes/Report: Test performed by [facility] [address] , [place] [address] Gilmer Lowe MD, Supply Cataloguer CLIA: [id number] TSH reflex to FT4 8.53 0.43-5.25 mU/L P-T4 Free (thyroxine) Reviewed date:06/02/2024 08:43:47 AM Interpretation:Normal Performing Lab: Notes/Report: Test performed by [facility] [address] [place] [address] , [place] [address] Gilmer Lowe MD, Supply Cataloguer CLIA: [id number] Thyroxine Free (free T4) 1.58 0.86-1.76 ng/dL P-Comprehensive Metabolic Pa rita (CMP) Reviewed date:06/02/2024 08:43:47 AM Interpretation:Na 129, cl 93, gluc 129, Cr 1.19, gfr 47, alk phos 255 Performing Lab: Notes/Report: Test performed by [facility] [address] , [place] [address] Gilmer Lowe MD, Supply Cataloguer CLIA: [id number] Sodium 129 135-145 mmol/L Potassium 3.6 3.5-5.3 mmol/L Chloride 93 97-108 mmol/L CO2 23 22-32 mmol/L Glucose 129 65-99 mg/dL BUN 22 8-23 mg/dL Creatinine 1.19 0.50-1.00 mg/dL Calcium 8.9 8.6-10.4 mg/dL eGFR by Creatinine 47 >59 mL/min/1.73m2 Protein 6.0 6.0-8.3 g/dL Albumin 4.2 3.5-5.3 g/dL Alkaline Phosphatase 255 35-121 IU/L ALT (SGPT) 18 <5-47 IU/L AST (SGOT) 19 <5-40 IU/L Bilirubin, Total 0.4 <0.2-1.2 mg/dL A/G Ratio 2.3 1.1-2.5 mg/dL CBC Fingerstick (in house) Reviewed date:05/27/2024 04:47:19 PM Interpretation: Performing Lab: Notes/Report: wbc 11.8 3.5 - 10 lym 14.2 15 - 50 mid 3.5 2 - 15 gran 82.3 35 - 80 rbc 3.67 3.5 - 5.5 hgb 13.7 11.5 - 16.5 hct 40.5 35 - 55 mcv 110.4 75 - 100 mch 37.4 25 - 35 mchc 33.0 31 - 38 plat 210 100 - 400 CBC Fingerstick (in house) Reviewed date:01/10/2024 12:34:08 PM Interpretation: Performing Lab: Notes/Report: wbc 10.4 3.5 - 10 lym 12.1 15 - 50 mid 3.3 2 - 15 gran 84.6 35 - 80 rbc 4.00 3.5 - 5.5 hgb 14.0 11.5 - 16.5 hct 40.8 35 - 55 mcv 102.1 75 - 100 mch 35.0 25 - 35 mchc 34.3 31 - 38 plat 209 100 - 400 P-Uric Acid Reviewed date:12/21/2023 12:40:55 PM Interpretation: Performing Lab: Notes/Report: Test performed by [facility], [facility] [address] [place] [address] , [address], [place] [address] Gilmer Lowe MD, Supply Cataloguer CLIA: [id number] Uric Acid 3.7 2.4-7.0 mg/dL CBC Fingerstick (in house) Reviewed date:11/01/2023 03:16:52 PM Interpretation: Performing Lab: Notes/Report: wbc 12.6 3.5 - 10 lym 14.8 15 - 50 mid 4.2 2 - 15 gran 81.0 35 - 80 rbc 4.35 3.5 - 5.5 hgb 14.5 11.5 - 16.5 hct 44.7 35 - 55 mcv 102.8 75 - 100 mch 33.3 25 - 35 mchc 32.4 31 - 38 plat 193 100 - 400 CBC Fingerstick (in house) Reviewed date:11/29/2023 12:57:37 PM Interpretation: Performing Lab: Notes/Report: wbc 10.6 3.5 - 10 lym 6.7 15 - 50 mid 16.8 2 - 15 gran 76.5 35 - 80 rbc 4.24 3.5 - 5.5 hgb 14.7 11.5 - 16.5 hct 43.5 35 - 55 mcv 102.5 75 - 100 mch 34.6 25 - 35 mchc 33.8 31 - 38 plat 203 100 - 400 MEDICATIONS Medication SIG (Take, Route, Frequency, Duration) Notes Start Date End Date Status Levothyroxine Sodium 112 MCG Take 1 tabl et by mouth once daily for 90 days Active Benzonatate 100 MG 1 capsule Orally Thr ee times a day prn Active Acetaminophen 500 MG 1 capsule as needed Orally every 6 hrs prn Active traMADol HCl 50 MG 1 tab(s) Orally q6h prn 024 Active Tamsulosin HCl 0.4 MG 1 capsule Orally O nce a day Active Senna S 8.6-50 MG 2 tablet as needed Orally Twice a day Active hydrOXYzine HCl 25 MG 1 tablet as needed Orally every 6 hrs prn Active Regular Diet - as directed CCHO Act gil Aspirin Adult Low Dose 81 MG 1 tab(s) or ally once a day Active Cyclobenzaprine HCl 5 MG 1 tab(s) Orally Three times a day Active Promethazine HCl 25 MG 1 tab(s) Orally q6h prn Active Melatonin 3 MG 1 tablet in the even ing at HS Active Carvedilol 3.125 MG 1 tab(s) Orally 2 ti mes a day Active predniSONE 5 MG 1 tablet orally once a day Active Simvastatin 20 MG 1 tab(s) orally once a day (at bedtime) Active ZyrTEC Allergy 10 MG 1 tab(s) orally onc e a day Active Plaquenil 200 MG 1 tab(s) orally qd Active Potassium Chloride Cathy ER 1 0 MEQ 1 tablet with food Orally Once a day Active IMMUNIZATIONS Vaccine Route Administration Date Status Comme nts xFlu shot-36 months and older IM Intramuscular 08/31/2009 Administered Tetanus Tdap-Adacel (over 7yrs) IM Intramuscular 01/07/2008 Administered Tetanus Tdap-Adacel (over 7yrs) IM Intramuscular 09/03/2018 Administered Prevnar (PCV13) IM Intramuscular 05/14/2020 Administered PNEUMOVAX 23 VACCINE IM Intramuscular 07/12/2023 Administe red H1N1 flu vaccine IM Intramuscular 09/13/2009 Administered Fluzone Quad (6months&older) IM Intramuscular 08/06/2019 Administered Fluzone High Dose (65yr and older) IM Intramuscular 08/16/2015 Administered Fluzone High Dose (65yr and older) IM Intramuscular 07/24/2016 Administered Fluzone High Dose (65yr and older) IM Intramuscular 08/07/2017 Administered Fluzone High Dose (65yr and older) IM Intramuscular 07/25/2018 Administered Fluzone High Dose (65yr and older) IM Intramuscular 07/12/2020 Administered Fluzone High Dose (65yr and older) IM Intramuscular 07/26/2021 Administered Fluzone High Dose (65yr and older) IM Intramuscular 07/11/2022 Administered Fluzone High Dose (65yr and older) IM Intramuscular 07/12/2023 Administered COVID 19 Moderna Unknown 11/18/2020 Administered COVID 19 Moderna Unknown 12/16/2020 Administered COVID 19 Moderna Unknown 06/17/2021 Administered COVID 19 Moderna Unknown 01/24/2022 Administered SOCIAL HISTORY Sex Assigned At : Social History Observation Description Sex Assigned At Unknown PROBLEMS Problem Type ICD Code Onset Dates Problem Status W/U Status Risk SNOMED Code Notes Problem Essential (primary) hypertension (I10) Active confirmed 08490199 Problem Essential hypertensi on (I10) Active confirmed 52398244 Problem Gout attack (M10.9) Active confirmed Go ut attack (709538551) Problem Rhinitis (J31.0) Active confirmed Rhini tis (80868487) Problem Osteopenia (M85.80) Active confirmed Os teopenia (519706319) Problem Environmental allergies (Z91.048) Active confirmed Environm ental allergy (047367924) Problem 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) Active confirmed 610037212 Problem 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) Active confirmed 041551184 Problem Polymyalgia rheumati ca (M35.3) Active confirmed 80452879 Problem Ataxic gait (R26.0) Active confirmed 25 309612 Problem Acquired hypothyroidism (E03.9) Active confirmed 733015862 Problem Paresthesias (R20.2) Active confirmed 9 0868776 Problem 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) Active confirmed 772741412 Problem Muscle spasm (M62.838) Active confirmed 14651120 Problem Rheumatoid arthritis (M06.9) Active confirmed Rheumatoid arthritis (55604011) Problem Sleep disorder (G47.9) Active confirmed Sleep disorder (29578134) Problem DDD (degenerative di sc disease), cervical (M50.30) Active confirmed Cervical disc disorder (837512836) Problem Primary osteoarthrit is (M19.91) Active confirmed 119159724 Problem Dyslipidemia (E78.5) Active confirmed 3 72016051 Problem 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) Active confirmed 100181152 Problem Atherosclerosis of ambler coronary artery without angina pectoris, unspecified whether ambler or transplanted heart (I25.10) Active confirmed 631935068 Problem Rheumatoid arthritis , involving unspecified site, unspecified whether rheumatoid factor present (M06.9) Active confirmed 75865196 Problem Sialodocholithiasis (K11.5) Active confirmed 26692248 VITAL SIGNS Heart Rate 97 /min 07/22/2024 Respiratory Rate 18 /min 07/22/2024 Blood pressure diastolic 82 mm Hg 07/22/2024 Height 65 in 06/26/2024 Blood pressure systolic 137 mm Hg 07/22/2024 Weight 141.8 lbs 07/22/2024 BMI 25.32 kg/m2 03/25/2024 Encounters Encounter Location Date Provider Diagnosis [facility] [facility] [address] [place] [id number] 09/04/2023 R John Melissa Polymyalgia rheumati ca M35.3 and Inflammatory polyarthropathy M06.4 [facility] [facility] [address] [place] [id number] 11/01/2023 R John Melissa Acute sinusitis J01. 90 [facility] [facility] [facility] [address] [place], [place] [id number] 11/20/2023 R John Melissa Vertigo R42 and Esse ntial hypertension I10 [facility] [address] [place] [facility] [address] [place], [place] [id number] 11/29/2023 R John Melissa Acute sinusitis J01. 90 and Nausea R11.0 [facility] [address] [facility] [address] [place] [id number] 12/04/2023 R John Melissa Leg edema R60.0 [facility] [address] [facility] [address] [place], [place] [id number] 12/11/2023 R John Melissa Inflammatory polyarthropathy M06.4 and Rhinitis J31.0 [facility] [address] [place], [place] [id number] 12/18/2023 R John Melissa Gout attack M10.9 [facility] [address] [place], [place] [id number] 01/10/2024 R John Melissa Acute sinusitis J01. 90 ; Rheumatoid arthritis M06.9 and Left hip pain M25.552 [facility] [address] [place], [place] [id number] 01/17/2024 R John Melissa Rheumatoid arthritis M06.9 and Sialodocholithiasis K11.5 [facility] [address] [place], [place] [id number] 01/24/2024 R John Melissa [facility] [address] [place], [place] [id number] 01/28/2024 R John Melissa [facility] [address] [place] [id number] 02/21/2024 R John Melissa Pruritus L29.9 [facility] [address] [place], [place] [id number] 03/11/2024 R John Melissa Rheumatoid arthritis M06.9 [facility] [address] [place] [id number] 03/18/2024 R John Melissa Muscle spasm M62.838 [facility] [address] [place], [place] [id number] 03/25/2024 R John Melissa Muscle spasm M62.838 ; Fall W19.XXXA ; Multiple contusions T07.XXXA ; Muscle weakness M62.81 ; Ataxic gait R26.0 and Rheumatoid arthritis M06.9 [facility] [address] [place], [place] [id number] 03/25/2024 R John Melissa [facility] [address] [place] [id number] 03/26/2024 R John Melissa [facility] [address] [place] [id number] 03/27/2024 R John Melissa Rheumatoid arthritis with rheumatoid factor of right hand without organ or systems involvement M05.741 and Ataxic gait R26.0 [facility] [address] [place] [id number] 03/27/2024 R John Melissa Muscle spasm M62.838 [facility] [address] [place] [id number] 04/07/2024 R John Melissa Leg edema R60.0 [facility] [address] [place], [place] [id number] 04/10/2024 R John Melissa Muscle spasm M62.838 [facility] [address] [place], [place] [id number] 04/15/2024 R John Melissa Cervical radiculopat hy M54.12 [facility] [address] [place] [id number] 04/29/2024 R John Melissa [facility] [address] [place] [id number] 05/01/2024 R John Melissa DDD (degenerative di sc disease), cervical M50.30 ; Cervical radiculopathy M54.12 and Right hip pain M25.551 [facility] [address] [place], [place] [id number] 05/01/2024 R John Melissa Right hip pain M25.5 51 [facility] [address] [place], [place] [id number] 05/01/2024 R John Melissa [facility] [address] [place], [place] [id number] 05/07/2024 R John Melissa Rheumatoid arthritis with rheumatoid factor of right hand without organ or systems involvement M05.741 and Rheumatoid arthritis of left hand without organ or system involvement with positive rheumatoid factor M05.742 [facility] [address] [place] [id number] 05/23/2024 R John Melissa [facility] [address] [place] [id number] 05/27/2024 R John Melissa Acute sinusitis J01. 90 ; Edema R60.9 ; Acquired hypothyroidism E03.9 and Dyslipidemia E78.5 [facility] [address] [place], [place] [id number] 05/28/2024 R John Melissa Edema R60.9 [facility] [address] [place] [id number] 06/03/2024 R John Melissa [facility] [address] [place] [id number] 06/04/2024 R John Melissa [facility] [address] [place] [id number] 06/05/2024 R John Melissa [facility] [address] [place] [id number] 06/06/2024 R John Melissa [facility] [address] [place] [id number] 06/12/2024 R John Melissa Hypokalemia E87.6 ; Hyponatremia E87.1 ; UTI (lower urinary tract infection) N39.0 ; Essential hypertension I10 and Leg edema R60.0 [facility] [address] [place], [place] [id number] 06/17/2024 R John Melissa Edema R60.9 [facility] [address] [place] [id number] 06/19/2024 R John Melissa Acute sinusitis J01. 90 ; Edema R60.9 and Hyponatremia E87.1 [facility] [address] [place], [place] [id number] 06/26/2024 R John Melissa Bruising T14.8XXA ; Acute sinusitis J01.90 ; Hyponatremia E87.1 and Leg edema R60.0 [facility] [address] [place], [place] [id number] 06/29/2024 R John Melissa A[facility] [address] [place], [place] [id number] 07/02/2024 R John Melissa Acute sinusitis J01. 90 [facility] [address] [place], [place] [id number] 07/04/2024 R John Melissa [address] [place], [place] [id number] 07/08/2024 Marie Helm Acquired hypothyroid ism E03.9 ; Inflammatory polyarthropathy M06.4 ; Nausea R11.0 ; Hx of arteriosclerotic cardiovascular disease Z86.79 ; Dyslipidemia E78.5 ; Essential hypertension I10 ; Rheumatoid arthritis M06.9 ; Hyponatremia E87.1 ; Fall W19.XXXA ; Rib fractures S22.39XA ; Fracture of pelvis S32.9XXA ; Sleep disorder G47.9 ; Environmental allergies Z91.048 and Hypotension due to drugs I95.2 [address] [place], [place] [id number] 07/22/2024 Marie Helm Acquired hypothyroid ism E03.9 ; Inflammatory polyarthropathy M06.4 ; Nausea R11.0 ; Hx of arteriosclerotic cardiovascular disease Z86.79 ; Dyslipidemia E78.5 ; Essential hypertension I10 ; Rheumatoid arthritis M06.9 ; Fall W19.XXXA ; Rib fractures S22.39XA ; Fracture of pelvis S32.9XXA ; Sleep disorder G47.9 ; Environmental allergies Z91.048 and Urinary retention R33.9 [facility] [address] [place], [place] [id number] 08/01/2024 Channing [place] Fracture of pelvis S32.9XXA [facility] [address] [place], [place] [id number] 08/04/2024 R John Melissa [facility] [address] [facility] [address] [place] [id number] 08/05/2024 Raul Torres ASSESSMENTS Encounter Date Diagnosis Assessment Notes Treatment Notes Treatment Clinical Notes 09/04/2023 Inflammatory polyarthropathy (ICD-10 - M06.4) 09/04/2023 Polymyalgia rheumati ca (ICD-10 - M35.3) 11/01/2023 Acute sinusitis (ICD -10 - J01.90) 11/20/2023 Vertigo (ICD-10 - R42) She h as meclizine at home and will start taking this tonight. 11/20/2023 Essential hypertensi on (ICD-10 - I10) Continue monitoring blood pressure at home. If it remains elevated after resolution of vertigo, may need to adjust medication. 12/04/2023 Leg edema (ICD-10 - R60.0) 12/11/2023 Rhinitis (ICD-10 - J31.0) 12/11/2023 Inflammatory polyarthropathy (ICD-10 - M06.4) 12/18/2023 Gout attack (ICD-10 - M10.9) 01/10/2024 Acute sinusitis (ICD -10 - J01.90) 01/10/2024 Rheumatoid arthritis (ICD-10 - M06.9) 01/17/2024 Rheumatoid arthritis (ICD-10 - M06.9) Recommend follow-up with risk assessment analyst as soon as possible 01/17/2024 Sialodocholithiasis (ICD-10 - K11.5) Discussed use of sialagogues. Call for increasing pain or fever. 02/21/2024 Pruritus (ICD-10 - L29.9) 03/11/2024 Rheumatoid arthritis (ICD-10 - M06.9) 03/18/2024 Muscle spasm (ICD-10 - M62.838) Advised to take Tylenol along with the tramadol. Recommend alternating heat and ice and continue stretching exercises. If symptoms persist, may need referral to physical therapy. 03/25/2024 Fall (ICD-10 - W19.XXXA) 03/27/2024 Rheumatoid arthritis with rheumatoid factor of right hand without organ or systems involvement (ICD-10 - M05.741) 03/27/2024 Ataxic gait (ICD-10 - R26.0) 03/27/2024 Muscle spasm (ICD-10 - M62.838) 04/07/2024 Leg edema (ICD-10 - R60.0) 04/10/2024 Muscle spasm (ICD-10 - M62.838) 04/15/2024 Cervical radiculopat hy (ICD-10 - M54.12) Continue physical therapy 05/01/2024 Cervical radiculopat hy (ICD-10 - M54.12) 05/01/2024 DDD (degenerative di sc disease), cervical (ICD-10 - M50.30) Order physical therapy to evaluate and treat for cervical disc disease and radiculopathy 05/01/2024 Right hip pain (ICD- 10 - M25.551) 05/07/2024 Rheumatoid arthritis with rheumatoid factor of right hand without organ or systems involvement (ICD-10 - M05.741) 05/07/2024 Rheumatoid arthritis of left hand without organ or system involvement with positive rheumatoid factor (ICD-10 - M05.742) 05/27/2024 Acute sinusitis (ICD -10 - J01.90) 05/27/2024 Edema (ICD-10 - R60.9) 03/25/2024 Muscle spasm (ICD-10 - M62.838) 05/28/2024 Edema (ICD-10 - R60.9) 06/17/2024 Edema (ICD-10 - R60.9) 06/19/2024 Acute sinusitis (ICD -10 - J01.90) 06/19/2024 Edema (ICD-10 - R60.9) Chiara nue compression stockings. Elevate legs. Limit salt intake. 06/26/2024 Acute sinusitis (ICD -10 - J01.90) 06/26/2024 Bruising (ICD-10 - T14.8XXA) Etiology unclear. Check additional labs. Consider hematology consultation. 07/02/2024 Acute sinusitis (ICD -10 - J01.90) 07/08/2024 Inflammatory polyarthropathy (ICD-10 - M06.4) 07/08/2024 Acquired hypothyroid ism (ICD-10 - E03.9) 07/22/2024 Inflammatory polyarthropathy (ICD-10 - M06.4) 07/22/2024 Acquired hypothyroid ism (ICD-10 - E03.9) 08/01/2024 Fracture of pelvis (ICD-10 - S32.9XXA) 11/29/2023 Acute sinusitis (ICD -10 - J01.90) 11/29/2023 Nausea (ICD-10 - R11.0) 06/12/2024 Hypokalemia (ICD-10 - E87.6) 06/12/2024 Hyponatremia (ICD-10 - E87.1) 06/12/2024 UTI (lower urinary t ract infection) (ICD-10 - N39.0) 07/22/2024 Nausea (ICD-10 - R11.0) ABX disconti nued 03/25/2024 Multiple contusions (ICD-10 - T07.XXXA) 07/08/2024 Nausea (ICD-10 - R11.0) ABX disconti nued 06/26/2024 Hyponatremia (ICD-10 - E87.1) 06/19/2024 Hyponatremia (ICD-10 - E87.1) 05/27/2024 Acquired hypothyroid ism (ICD-10 - E03.9) 05/01/2024 Right hip pain (ICD- 10 - M25.551) Order physical therapy to evaluate and treat for right hip pain 01/10/2024 Left hip pain (ICD-1 0 - M25.552) Keep appointment with Dr. Lovelace for orthopedic consultation today. 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 Check labs. If electrolyte abnormalities have resolved, will consider additional diuretic. 07/22/2024 Dyslipidemia (ICD-10 - E78.5) 07/08/2024 Dyslipidemia (ICD-10 - E78.5) 03/25/2024 Ataxic gait (ICD-10 - R26.0) 07/22/2024 Essential hypertensi on (ICD-10 - I10) 07/08/2024 Essential hypertensi on (ICD-10 - I10) 03/25/2024 Rheumatoid arthritis (ICD-10 - M06.9) 07/22/2024 Rheumatoid arthritis (ICD-10 - M06.9) 07/08/2024 Rheumatoid arthritis (ICD-10 - M06.9) 07/08/2024 Hyponatremia (ICD-10 - E87.1) 07/22/2024 Fall (ICD-10 - W19.XXXA) 07/22/2024 Rib fractures (ICD-1 0 - S22.39XA) 07/08/2024 Fall (ICD-10 - W19.XXXA) 07/08/2024 Rib fractures (ICD-1 0 - S22.39XA) 07/22/2024 Fracture of pelvis (ICD-10 - S32.9XXA) continue to work with PT 07/22/2024 Sleep disorder (ICD- 10 - G47.9) 07/08/2024 Fracture of pelvis (ICD-10 - S32.9XXA) PT will be initiated when BP stabilized 07/22/2024 Environmental allerg ies (ICD-10 - Z91.048) 07/08/2024 Sleep disorder (ICD- 10 - G47.9) 07/08/2024 Environmental allerg ies (ICD-10 - Z91.048) 07/22/2024 Urinary retention (ICD-10 - R33.9) 07/08/2024 Hypotension due to d rugs (ICD-10 - I95.2) Spironolactone, metolazone which were started at will be discontinued; Losartan will be disc; carvediolol decreased with hold parameters for BP and HR 07/08/2024 Other She will discus s her meds with Dr. Torres tomorrow 07/22/2024 Other wants to go mari e next week PLAN OF TREATMENT Pending Test Test Name Order Date BMP 07/31/2024 CT Scan : Hip, right, without contrast 0 05/01/2024 Next Appt Details Provider Name:Raul Corral, 08/19/2024 11:45:00 AM, [address], [address], [place], [id number], Insurance Providers Payer Name Payer Address Payer Phone Subscriber Number Group Number Insured Name Patient Relationship to Insured Coverage Start Date Coverage End Date MEDICARE PART B [address] [address] [place] [address] [id number] KWASI HUYNH Self - patient is the insured [employer] [facility] [place] [address] [phone] [id number] [id number] [id number] Self - patient is the insured MEDICATIONS ADMINISTERED Medication Instructions Date of Administration Dosage Notes Benadryl 10/21/2018 .25 mL Depo- Medrol 40 mg/ml 12/08/2013 1.5 mL Depo- Medrol 40 mg/ml 04/23/2018 1.5 mL Depo- Medrol 40 mg/ml 11/25/2018 1.5 mL Depo- Medrol 40 mg/ml 11/28/2018 1.5 mL Depo- Medrol 40 mg/ml 02/13/2020 1.5 mL Depo- Medrol 40 mg/ml 01/02/2022 1.5 mL Depo- Medrol 40 mg/ml 01/09/2022 1 mL Depo- Medrol 40 mg/ml 04/17/2022 1.5 mL Depo- Medrol 40 mg/ml 08/04/2022 1.5 mL Depo- Medrol 40 mg/ml 09/18/2022 1.5 mL Depo- Medrol 40 mg/ml 12/07/2022 1.5 mL Depo- Medrol 40 mg/ml 01/23/2023 1.5 mL Depo- Medrol 40 mg/ml 03/08/2023 1.5 mL Depo- Medrol 40 mg/ml 05/15/2023 1.5 mL Depo- Medrol 40 mg/ml 06/21/2023 1 mL Depo- Medrol 40 mg/ml 09/04/2023 1 mL Depo- Medrol 40 mg/ml 12/11/2023 1 mL Depo- Medrol 40 mg/ml 01/10/2024 1 mL Depo- Medrol 40 mg/ml 03/11/2024 1 mL Dexamethasone 12/01/2013 1 mL Dexamethasone 12/16/2018 1 mL Dexamethasone 03/07/2019 1 mL Dexamethasone 03/10/2019 1 mL Dexamethasone 12/19/2019 1 mL Dexamethasone 03/16/2022 1 mL Dexamethasone 11/20/2023 1 mL Dexamethasone 12/18/2023 1.5 mL phenergan 25 mg/ml 11/29/2023 25 mg MEDICAL (GENERAL) HISTORY Medical History History ICD Code hyperlipidemia-followed by Dr. Arrington hypertension Hypothyroidism/goiter kidney stones allergic rhinitis ASCVD: [place] - 09/2013-followed by Dr. Arrington q 6 months cataracts Hyperuricemia Rheumatoid Arthritis - Dr. Skylar Bhatia Covid vaccine x2 Oct/Nov 2020 Surgical History Surgery Date(Month/Year) thyroidectomy/goiter removal 1999 back surgery 2001 total hysterectomy 1992 tonsillectomy child cardiac stent placed-[facility] Arrington. Dr. Santo 10/19/13 Cataract Surgery Oct 2017 Hospitalization History Reason Date(Month/Year) see above kidney stones 1992 [facility]-heart attack 10/03 [facility] ER-facial pain, sinus blockage 8 [facility] ER-itching, swelling in hands - Multiple rib and pelvic fractures; hyponatremia; rheumatoid arthritis; ASCVD 06/30-07/04/2024 [facility]-dehydration; failure to thrive; acut e urinary retention 07/14-07/16/2024
--- OUTSIDE RECORDS SUMMARY | 2024-08-05 10:18 | XMS_ITS ---
Author Organization [facility] Address [address] [place] [address] [address] [facility] [address] [place] [phone] Care Team Providers Care Automotive Service Technician Name Role Phone Raul Torres Primary Care Provider Channing [place] [phone] REASON FOR VISIT Controlled Rx MEDICATIONS Medication SIG (Take, Route, Fr equency, Duration) Notes Start Date End Date Status traMADol HCl 50 MG 1 tab(s) Orally q6h prn 024 Active Encounters Encounter Location Date Provider Diagnosis [facility] [address] [place] [address] 36 [facility] [address] [place] [id number] 08/01/2024 Channing Garcia Fracture of pelvis S32.9XXA ASSESSMENTS Encounter Date Diagnosis Assessment Notes Treatment Notes Treatment Clinical Notes 08/01/2024 Fracture of pelvis (ICD-10 - S32.9XXA) PLAN OF TREATMENT Medication Medication Name Sig Start Date Stop Date Notes traMADol HCl 50 MG 1 tab(s) Orally q6h prn 08/01/2024 Next Appt Details Provider Name:Raul Corral, 08/19/2024 11:45:00 AM, [address] [facility] [address] [facility], [address], [place], [id number],
== END 2024-07-16 15:10 | DRG 641 ==
LOC: ER 18:48 → 2ND 23:45
PROVIDERS: Internal Medicine; Internal Medicine Adolescent Medicine; Admitting Provider Student in an Organized Health Care Education/Training Program; Emergency Provider Emergency Medicine; PCP Family Medicine; Visit Provider Student in an Organized Health Care Education/Training Program
DX: R62.7 Adult failure to thrive (principal); E87.1 Hypo-osmolality and hyponatremia; E03.9 Hypothyroidism, unspecified; R33.8 Other retention of urine; R35.89 Other polyuria; E86.0 Dehydration; E16.2 Hypoglycemia, unspecified; R63.0 Anorexia; Z79.899 Other long term (current) drug therapy; Z87.891 Personal history of nicotine dependence; S32.810D Multiple fractures of pelvis with stable disruption of pelvic ring, subsequent encounter for fracture with routine healing; Z86.16 Personal history of COVID-19; M35.3 Polymyalgia rheumatica; M06.9 Rheumatoid arthritis, unspecified; I25.10 Atherosclerotic heart disease of native coronary artery without angina pectoris; Z68.23 Body mass index [BMI] 23.0-23.9, adult; Z91.81 History of falling
CPT/HCPCS: 36415; 51702; 70450; 72128; 72131; 72192; 74177; 80048; 80053; 81001; 82570; 83690; 83735; 83930; 83935; 84100; 84145; 84295; 84436; 84443; 84484; 84540; 85025; 86803; 87389; 92610; 93005; 97110; 97162; 97165; 97530; 99231; 99251; 99285; J0131; J1650; J2405; J3475; J7030; J7042; J7120; J7512; Q9967

== ENCOUNTER 2024-08-07 14:24 | Observation (INO) | payer MEDICARE, OTHER, SELFPAY ==
[2024-08-07 14:24] VITALS: BP 123/79; PULSE 79; RESP 18; TEMP 36.9; O2SAT 94; BMI 22.6
--- NOTE | 2024-08-07 14:30 | ED_ITS ---
<Statement entered by Lior Hoffman MD - 08/07/24 23:01> I was consulted by the OWEN, and we discussed the complexity of the problems being addressed. I approved the treatment and management plan for this patient's care in the emergency department, thus performing a substantive portion of the medical decision making. Lior Hoffman MD, [facility], [facility] Discharge Plan Disposition Patient Disposition: Admitted Condition: Good Clinical Impressions Clinical Impression: Acute proctitis, Fecal impaction in rectum Discharge ED Provider: Lior Hoffman General Adult HPI <EDWAR Moore - Last Filed: 08/07/24 18:23> General Chief complaint: Abdominal Pain Stated complaint: abdominal pain Time Seen by Provider: 08/07/24 14:30 History of Present Illness HPI narrative: Patient presents for evaluation of abdominal pain. Patient recently was in a rehab facility after suffering a fall. She states that during her time there she did not have a bowel movement however she also did not bring that up to the staff. She was discharged yesterday and reports that for the last 4 days she has had neither bowel movement nor passing flatus. She began however having abdominal pain diffusely but intermittently today. She is pain-free currently. She denies nausea vomiting no inability to tolerate oral intake although she does not have much of an appetite. She has tried to treat with [id number] bowel softeners with no success she denies chest pain shortness of breath fever chills hemoptysis hematochezia melena hematemesis hematuria Related Data Home Medications ?Medication ?Instructions ?Recorded ?Confirmed levothyroxine 112 mcg tablet 112 mcg PO DAILYDM 04/24/18 08/08/24 simvastatin 20 mg tablet 20 mg PO HS 04/24/18 08/08/24 hydroxychloroquine 200 mg tablet 200 mg PO DAILY 05/11/22 08/08/24 cetirizine 10 mg capsule 10 mg PO DAILY 07/01/22 08/08/24 prednisone 5 mg tablet 5 mg PO DAILY 07/01/22 08/08/24 acetaminophen 500 mg tablet 500 mg PO Q6HP PRN Mild Pain 07/15/24 08/08/24 (Scale Score 1-4) aspirin 81 mg tablet,delayed 81 mg PO DAILY 07/15/24 08/08/24 release benzonatate 100 mg capsule 100 mg PO TIDP PRN Cough 07/15/24 08/08/24 carvedilol 3.125 mg tablet 3.125 mg PO BIDWMEAL 07/15/24 08/08/24 cyclobenzaprine 5 mg tablet 5 mg PO TID 07/15/24 08/08/24 hydroxyzine pamoate 25 mg capsule 25 mg PO Q6HP PRN Anxiety 07/15/24 08/08/24 melatonin 3 mg tablet 3 mg PO HSP Insomnia 07/15/24 08/08/24 promethazine 25 mg tablet 25 mg PO Q6HP PRN Nausea And 07/15/24 08/08/24 Vomiting tramadol 50 mg tablet 50 mg PO Q6HP PRN Moderate Pain 07/15/24 08/08/24 (Scale Score 5-6) sennosides 8.6 mg-docusate sodium 2 tab-cap PO BIDP PRN Constipation 08/08/24 08/08/24 50 mg tablet (Senna Plus) Previous Rx's ?Medication ?Instructions ?Recorded potassium chloride 10 mEq 10 meq PO DAILY #30 caps 06/02/24 capsule,extended release tamsulosin 0.4 mg capsule 0.4 mg PO DAILY 30 days #30 caps 07/16/24 polyethylene glycol 3350 17 17 g PO DAILY #510 grams 08/08/24 gram/dose oral powder (Miralax) Allergies Allergy/AdvReac Type Severity Reaction Status Date / Time Sulfa (Sulfonamide Allergy Unknown Hives Verified 07/14/24 18:43 Antibiotics) [SULFA (SULFONAMIDE ANTIBIOTICS)] codeine Allergy Vomiting Verified 07/15/24 00:25 Penicillins Allergy Hives Verified 07/14/24 18:43 [facility] <EDWAR Moore - Last Filed: 08/07/24 18:23> [facility] Disclaimer: The information contained in this section may have been updated after the patient was seen, as this information can be updated by other users. Medical History (Updated 08/07/24 @ 22:19 by Sushma Franco RN) Falls Trochanteric bursitis, right hip Skin tear of left upper extremity Contusion of elbow, left Contusion of hip, left Trochanteric bursitis, left hip Closed fracture of greater trochanter of femur Pain around toenail, right foot Ingrown toenail of right foot Closed nondisplaced fracture of fifth right metatarsal bone MARY (acute kidney injury) Enteritis Hypothyroidism Foot fracture, right Polymyalgia rheumatica syndrome History of back pain History of left heart catheterization Hyperlipidemia Hypertension Cataract COVID-19 Closed fracture of fourth metatarsal of right foot Nondisplaced fracture of fifth right metatarsal bone with routine healing Myocardial infarction HLD (hyperlipidemia) CAD (coronary artery disease) Rheumatoid arthritis Surgical History (Updated 08/07/24 @ 22:19 by Sushma Franco RN) H/O cataract removal with insertion of prosthetic lens History of heart artery stent Previous back surgery H/O thyroidectomy History of appendectomy History of hysterectomy History of tonsillectomy Family History Other Cancer Heart attack Hypertension Social History (Updated 08/07/24 @ 22:21 by Sushma Franco RN) Smoking Status: Former smoker tobacco type: cigarettes packs per day: 1 years smoked: 40 how long ago did patient quit smokin years alcohol intake: never substance use type: denies use current occupational status: retired Travel in the last 8 weeks: None caregiver/support person: Yes () household members: spouse housing: house marital status: special marvin needs: No Other Medical History Have you received the Flu Vaccine for this season: No Have you received the Pneumonia Vaccine: No <EDWAR Moore - Last Filed: 08/07/24 18:23> ROS Obtained: Yes Systems reviewed as appropriate & no additional complaints except as documented Physical Exam <EDWAR Moore - Last Filed: 08/07/24 18:23> General General appearance: alert and in no apparent distress Respiratory Respiratory exam: Present normal lung sounds bilaterally Cardiovascular Cardiovascular exam: Present regular rate Neurological Exam Neurological exam: Present alert and oriented X3 Medical Decision Making <EDWAR Moore - Last Filed: 08/07/24 18:23> Medical Records Medical records reviewed: Yes I reviewed the patient's medical records. Screening: Per USPSTF and CDC recommendations, given the prevalence of disease in our region, it is our hospital?s policy to screen for HIV and viral Hepatitis for all patients aged 18 and over and those with ongoing risk factors. Michael Inquiry Pt receiving controlled substance: No Vital Signs: 08/07/24 14:24 08/07/24 18:33 08/07/24 18:34 Temperature 98.4 F 98.1 F Temperature Source Oral Pulse Rate 92 H 99 H Pulse Rate [Right] 79 Respiratory Rate 18 18 Blood Pressure 143/88 H 143/88 H Blood Pressure [Right Arm] 123/79 Blood Pressure Mean [Right Arm] 93 02 Sat by Pulse Oximetry 94 L 96 Oxygen Delivery Method Room Air Room Air 08/07/24 20:00 Temperature Temperature Source Pulse Rate Pulse Rate [Right] Respiratory Rate Blood Pressure Blood Pressure [Right Arm] Blood Pressure Mean [Right Arm] 02 Sat by Pulse Oximetry Oxygen Delivery Method Room Air Lab Data Lab results reviewed: Yes I reviewed the patient's lab results. Lab Results 08/07/24 14:31: WBC 10.4, RBC 3.40 L, Hgb 12.5, Hct 36.2 L, MCV 106.4 H, MCH 36.7 H, MCHC 34.5, RDW 13.6, Plt Count 288, MPV 7.6, Neut % (Auto) 87.1 H, Lymph % (Auto) 6.8 L, [place] % (Auto) 3.9, Eos % (Auto) 1.2, Baso % (Auto) 1.0, Neut # (Auto) 9.1 H, Lymph # (Auto) 0.7, [place] # (Auto) 0.4, Eos # (Auto) 0.1, Baso # (Auto) 0.1, Total Counted 100, Neutrophils % (Manual) 85 H, Lymphocytes % (Manual) 10, Monocytes % (Manual) 5, Platelet Estimate Normal, Macrocytosis 2+, Sodium 124 L, Potassium 3.7, Chloride 96 L, Carbon Dioxide 26, Anion Gap 5.7, BUN 16, Creatinine 1.10 H, Estimated Creat Clear 43, Estimated GFR 48 L, Est GFR ( Amer) 58 L, Glucose 97, Calcium 9.2, Magnesium 1.6, Total Bilirubin 0.7, AST 35, ALT 25, Alkaline Phosphatase 123, Total Protein 6.5, Albumin 4.0, Globulin 2.5, Albumin/Globulin Ratio 1.6, Lipase 67, Hepatitis C Antibody Non reactive, HIV 1&2 Antibody Rapid Nonreactive 08/07/24 15:21: Urine Color Yellow, Urine Appearance Sl cloudy, Urine pH 7.0, Ur Specific [place] 1.015, Urine Protein Negative, Urine Glucose (UA) Negative, Urine Ketones Negative, Urine Blood Negative, Urine Nitrate Negative, Urine Bilirubin Negative, Urine Urobilinogen 0.2, Ur Leukocyte Esterase 1+ A, Urine RBC None, Urine WBC 3-5, Ur Squamous Epith Cells None, Urine Bacteria Trace 08/08/24 05:49 08/08/24 14:05 Orders (Tests/Meds): ED MEDICATIONS Discontinued Medications Generic Name Dose Route Start Last Admin Trade Name Freq PRN Reason Stop Dose Admin Acetaminophen 1,000 mg 08/07/24 14:34 08/07/24 14:58 Acetaminophen 500mg Tab PO 08/07/24 14:35 1,000 mg ONCE ONE Administration Acetaminophen 650 mg 08/07/24 18:22 Acetaminophen 325mg Tab PO 09/06/24 18:21 Q4HP PRN Fever or Mild Pain (1-3) Aspirin 81 mg 08/08/24 09:00 08/08/24 08:30 Aspirin Ec 81mg Tablet PO 09/07/24 08:59 81 mg DAILY MARCO Administration Carvedilol 3.125 mg 08/08/24 09:00 08/08/24 08:31 Carvedilol 3.125mg Tablet PO 09/07/24 08:59 3.125 mg BID MARCO Administration Cyclobenzaprine HCl 5 mg 08/08/24 09:00 08/08/24 13:34 Cyclobenzaprine 10mg Tablet PO 09/07/24 08:59 5 mg TID MARCO Administration Enoxaparin Sodium 40 mg 08/08/24 09:00 08/08/24 08:31 Enoxaparin 40mg/0.4ml Syringe SQ 09/07/24 08:59 40 mg DAILY MARCO Administration Hydroxychloroquine Sulfate 200 mg 08/08/24 09:00 08/08/24 08:30 Hydroxychloroquine Sulfate 200mg Tablet PO 08/18/24 08:59 200 mg DAILY MARCO Administration Hydroxyzine Pamoate 25 mg 08/08/24 00:12 Hydroxyzine Pamoate 25mg Capsule PO 09/07/24 00:11 Q6HP PRN Anxiety Sodium Chloride 1,000 mls @ 333 mls/hr 08/07/24 18:22 08/07/24 21:41 Sod Chlor 0.9% 1000ml Bag IV 08/07/24 21:22 333 mls/hr .Q3H1M ONE Administration Ceftriaxone Sodium 1 gm/ 50 mls @ 100 mls/hr 08/08/24 00:15 08/08/24 02:04 Sodium Chloride IV 08/18/24 00:14 100 mls/hr Q24H MARCO Administration Metronidazole 500 mg in 100 mls @ 100 mls/hr 08/08/24 00:15 08/08/24 08:32 Flagyl 500mg/100ml Ivpb IV 08/18/24 00:14 100 mls/hr Q8H MARCO Administration Sodium Chloride 1,000 mls @ 75 mls/hr 08/08/24 00:15 08/08/24 02:04 Sod Chlor 0.9% 1000ml Bag IV 09/07/24 00:14 75 mls/hr .[id number] MARCO Administration Potassium Chloride/Water 100 mls @ 50 mls/hr 08/08/24 07:52 08/08/24 11:31 Potassium Chloride 20meq/100ml Ivpb IV 08/08/24 13:51 Not Given Q2H MARCO Magnesium Sulfate 2 gm in 50 mls @ 50 mls/hr 08/08/24 08:15 08/08/24 12:32 Magnesium Sulfate 2gm/50ml Premix IV 08/08/24 10:14 50 mls/hr Q1H MARCO Administration Potassium Chloride 20 meq/ 113 mls @ 56.5 mls/hr 08/08/24 11:00 08/08/24 13:34 Lidocaine HCl 3 ml/ Sodium IV 08/08/24 12:59 56.5 mls/hr Chloride Q2H MARCO Administration Iopamidol 75 ml 08/07/24 15:08 08/07/24 15:09 Iopamidol-370 (76%);100ml Bottle IV 08/07/24 15:09 75 ml ONCE ONE Administration Ketorolac Tromethamine 15 mg 08/07/24 14:34 08/07/24 14:58 Ketorolac 30mg/Ml Vial IV 08/07/24 14:35 15 mg ONCE ONE Administration Levothyroxine Sodium 112 mcg 08/08/24 07:00 08/08/24 08:31 Levothyroxine 112mcg (0.112mg) Tab PO 09/07/24 06:59 112 mcg DAILYDM MARCO Administration Loratadine 10 mg 08/08/24 09:00 08/08/24 08:31 Loratadine 10mg Tablet PO 09/07/24 08:59 10 mg DAILY MARCO Administration Melatonin 5 mg 08/08/24 07:45 08/08/24 09:42 Melatonin 5mg Tablet PO 09/07/24 07:44 Not Given HSP MARCO Mineral Oil 133 ml 08/07/24 18:29 08/07/24 21:38 Mineral Oil Enema 133ml RC 08/07/24 18:30 133 ml ONCE ONE Administration Mineral Oil 133 ml 08/07/24 18:29 Mineral Oil Enema 133ml RC 09/06/24 18:28 NEEDED PRN Constipation Non-Formulary Medication 3 mg 08/08/24 00:15 08/08/24 02:18 Melatonin PO 09/07/24 00:14 Not Given HSP MARCO Ondansetron HCl 4 mg 08/07/24 14:34 08/07/24 14:57 Ondansetron 4mg/2ml Vial IV 08/07/24 14:35 4 mg ONCE ONE Administration Ondansetron HCl 4 mg 08/07/24 18:22 08/08/24 09:40 Ondansetron 4mg/2ml Vial IV 09/06/24 18:21 4 mg Q8HP PRN Administration Nausea Potassium Chloride 80 meq 08/08/24 11:05 08/08/24 11:34 Potassium Chloride 20meq Tab PO 08/08/24 11:06 80 meq ONCE ONE Administration Pravastatin Sodium 40 mg 08/08/24 21:00 Pravastatin 40mg Tab PO 09/07/24 20:59 HS MARCO Prednisone 5 mg 08/08/24 09:00 08/08/24 08:30 Prednisone 5mg Tab PO 09/07/24 08:59 5 mg DAILY MARCO Administration Promethazine HCl 25 mg 08/08/24 00:12 08/08/24 02:14 Promethazine 25mg Tablet PO 09/07/24 00:11 25 mg Q6HP PRN Administration Nausea And Vomiting Sodium Chloride 10 ml 08/07/24 15:08 08/07/24 15:09 Sodium Chloride 0.9% 10ml Syr (Rad Only) IV 08/07/24 15:09 10 ml ONCE ONE Administration Sodium Chloride 10 ml 08/08/24 00:02 Sodium Chloride 0.9% 10ml Flush Syringe IV 09/07/24 00:01 NEEDED PRN Maintain IV Site Tamsulosin HCl 0.4 mg 08/08/24 09:00 08/08/24 08:30 Tamsulosin 0.4mg Capsule PO 09/07/24 08:59 0.4 mg DAILY MARCO Administration Tramadol HCl 50 mg 08/08/24 00:12 Tramadol 50mg Tablet PO 09/07/24 00:11 Q6HP PRN Moderate Pain (Scale Score 5-6) Triamterene/Hydrochlorothiazide 1 each 08/08/24 09:00 08/08/24 08:30 Hctz 25mg/Triamterene 37.5mg Tablet PO 09/07/24 08:59 1 each DAILY MARCO Administration ORDERS Category Date Time Status CT abdomen pelvis w con Stat Cat Scan 08/07/24 14:34 Completed Basic Metabolic Panel AMLAB Lab 08/08/24 05:49 Completed CBC w/Auto Diff [Complete Blood Count Auto Diff] Stat Lab 08/07/24 14:31 Completed CMP [Comprehensive Metabolic Panel] Stat Lab 08/07/24 14:31 Completed Complete Blood Count Auto Diff AMLAB Lab 08/08/24 05:49 Completed HIV (1&2) Antibody Rapid Stat Lab 08/07/24 14:31 Completed Hep C Ab with Reflex to RNA Stat Lab 08/07/24 14:31 Completed Lipase Stat Lab 08/07/24 14:31 Completed Magnesium Stat Lab 08/07/24 14:31 Completed UA [Urinalysis and Microscopic] Stat Lab 08/07/24 15:21 Completed Urine Culture Stat Micro 08/07/24 15:21 Results Medical Decision Narrative: In summary patient is a 78-year-old female who presents to the emergency department for evaluation of cute abdominal pain. Patient is hemodynamically stable upon arrival, afebrile. Physical exam is remarkable for diffuse mild abdominal tenderness to palpation with a soft abdomen without rebound or guarding or rigidity and normal bowel sounds. There is no CVA tenderness to percussion. Differential diagnosis includes constipation versus obstipation versus bowel obstruction versus pancreatitis versus urinary tract infection versus kidney stone etc. Initial workup will be conducted with hematologic labs urinalysis CT scan abdomen pelvis. Initial interventions include Tylenol and ibuprofen. Initial workup reviewed by me shows her hematologic labs are nonactionable but patient does have chronic hyponatremia chronic kidney disease urinalysis is bland and my informal interpretation of her CT scan abdomen pelvis shows proctitis and constipation. Initially we attempted a soapsuds enema without success. I then personally tried manual disimpaction and could not reach the stool ball insufficient angle without patient discomfort to disimpact her. Given that I had an interactive discussion with Dr. Akhtar of gastroenterology outpatient management who recommended serial mineral oral enemas and reevaluation if it is unsuccessful and she may need possibly endoscopic disimpaction. Given that, I had an interactive discussion with hospital medicine who is agreed for admission for further evaluation and care <Xavier Gibson MD - Last Filed: 08/10/24 15:11> Vital Signs: 08/07/24 14:24 08/07/24 18:33 08/07/24 18:34 Temperature 98.4 F 98.1 F Temperature Source Oral Pulse Rate 92 H 99 H Pulse Rate [Right] 79 Respiratory Rate 18 18 Blood Pressure 143/88 H 143/88 H Blood Pressure [Right Arm] 123/79 Blood Pressure Mean [Right Arm] 93 02 Sat by Pulse Oximetry 94 L 96 Oxygen Delivery Method Room Air Room Air 08/07/24 20:00 Temperature Temperature Source Pulse Rate Pulse Rate [Right] Respiratory Rate Blood Pressure Blood Pressure [Right Arm] Blood Pressure Mean [Right Arm] 02 Sat by Pulse Oximetry Oxygen Delivery Method Room Air Lab Data Lab Results 08/07/24 14:31: WBC 10.4, RBC 3.40 L, Hgb 12.5, Hct 36.2 L, MCV 106.4 H, MCH 36.7 H, MCHC 34.5, RDW 13.6, Plt Count 288, MPV 7.6, Neut % (Auto) 87.1 H, Lymph % (Auto) 6.8 L, [place] % (Auto) 3.9, Eos % (Auto) 1.2, Baso % (Auto) 1.0, Neut # (Auto) 9.1 H, Lymph # (Auto) 0.7, [place] # (Auto) 0.4, Eos # (Auto) 0.1, Baso # (Auto) 0.1, Total Counted 100, Neutrophils % (Manual) 85 H, Lymphocytes % (Manual) 10, Monocytes % (Manual) 5, Platelet Estimate Normal, Macrocytosis 2+, Sodium 124 L, Potassium 3.7, Chloride 96 L, Carbon Dioxide 26, Anion Gap 5.7, BUN 16, Creatinine 1.10 H, Estimated Creat Clear 43, Estimated GFR 48 L, Est GFR ( Amer) 58 L, Glucose 97, Calcium 9.2, Magnesium 1.6, Total Bilirubin 0.7, AST 35, ALT 25, Alkaline Phosphatase 123, Total Protein 6.5, Albumin 4.0, Globulin 2.5, Albumin/Globulin Ratio 1.6, Lipase 67, Hepatitis C Antibody Non reactive, HIV 1&2 Antibody Rapid Nonreactive 08/07/24 15:21: Urine Color Yellow, Urine Appearance Sl cloudy, Urine pH 7.0, Ur Specific [place] 1.015, Urine Protein Negative, Urine Glucose (UA) Negative, Urine Ketones Negative, Urine Blood Negative, Urine Nitrate Negative, Urine Bilirubin Negative, Urine Urobilinogen 0.2, Ur Leukocyte Esterase 1+ A, Urine RBC None, Urine WBC 3-5, Ur Squamous Epith Cells None, Urine Bacteria Trace Orders (Tests/Meds): ED MEDICATIONS Discontinued Medications Generic Name Dose Route Start Last Admin Trade Name Bam PRN Reason Stop Dose Admin Acetaminophen 1,000 mg 08/07/24 14:34 08/07/24 14:58 Acetaminophen 500mg Tab PO 08/07/24 14:35 1,000 mg ONCE ONE Administration Acetaminophen 650 mg 08/07/24 18:22 Acetaminophen 325mg Tab PO 09/06/24 18:21 Q4HP PRN Fever or Mild Pain (1-3) Aspirin 81 mg 08/08/24 09:00 08/08/24 08:30 Aspirin Ec 81mg Tablet PO 09/07/24 08:59 81 mg DAILY MARCO Administration Carvedilol 3.125 mg 08/08/24 09:00 08/08/24 08:31 Carvedilol 3.125mg Tablet PO 09/07/24 08:59 3.125 mg BID MARCO Administration Cyclobenzaprine HCl 5 mg 08/08/24 09:00 08/08/24 13:34 Cyclobenzaprine 10mg Tablet PO 09/07/24 08:59 5 mg TID MARCO Administration Enoxaparin Sodium 40 mg 08/08/24 09:00 08/08/24 08:31 Enoxaparin 40mg/0.4ml Syringe SQ 09/07/24 08:59 40 mg DAILY MARCO Administration Hydroxychloroquine Sulfate 200 mg 08/08/24 09:00 08/08/24 08:30 Hydroxychloroquine Sulfate 200mg Tablet PO 08/18/24 08:59 200 mg DAILY MARCO Administration Hydroxyzine Pamoate 25 mg 08/08/24 00:12 Hydroxyzine Pamoate 25mg Capsule PO 09/07/24 00:11 Q6HP PRN Anxiety Sodium Chloride 1,000 mls @ 333 mls/hr 08/07/24 18:22 08/07/24 21:41 Sod Chlor 0.9% 1000ml Bag IV 08/07/24 21:22 333 mls/hr .Q3H1M ONE Administration Ceftriaxone Sodium 1 gm/ 50 mls @ 100 mls/hr 08/08/24 00:15 08/08/24 02:04 Sodium Chloride IV 08/18/24 00:14 100 mls/hr Q24H MARCO Administration Metronidazole 500 mg in 100 mls @ 100 mls/hr 08/08/24 00:15 08/08/24 08:32 Flagyl 500mg/100ml Ivpb IV 08/18/24 00:14 100 mls/hr Q8H MARCO Administration Sodium Chloride 1,000 mls @ 75 mls/hr 08/08/24 00:15 08/08/24 02:04 Sod Chlor 0.9% 1000ml Bag IV 09/07/24 00:14 75 mls/hr .[id number] MARCO Administration Potassium Chloride/Water 100 mls @ 50 mls/hr 08/08/24 07:52 08/08/24 11:31 Potassium Chloride 20meq/100ml Ivpb IV 08/08/24 13:51 Not Given Q2H MARCO Magnesium Sulfate 2 gm in 50 mls @ 50 mls/hr 08/08/24 08:15 08/08/24 12:32 Magnesium Sulfate 2gm/50ml Premix IV 08/08/24 10:14 50 mls/hr Q1H MARCO Administration Potassium Chloride 20 meq/ 113 mls @ 56.5 mls/hr 08/08/24 11:00 08/08/24 13:34 Lidocaine HCl 3 ml/ Sodium IV 08/08/24 12:59 56.5 mls/hr Chloride Q2H MARCO Administration Iopamidol 75 ml 08/07/24 15:08 08/07/24 15:09 Iopamidol-370 (76%);100ml Bottle IV 08/07/24 15:09 75 ml ONCE ONE Administration Ketorolac Tromethamine 15 mg 08/07/24 14:34 08/07/24 14:58 Ketorolac 30mg/Ml Vial IV 08/07/24 14:35 15 mg ONCE ONE Administration Levothyroxine Sodium 112 mcg 08/08/24 07:00 08/08/24 08:31 Levothyroxine 112mcg (0.112mg) Tab PO 09/07/24 06:59 112 mcg DAILYDM MARCO Administration Loratadine 10 mg 08/08/24 09:00 08/08/24 08:31 Loratadine 10mg Tablet PO 09/07/24 08:59 10 mg DAILY MARCO Administration Melatonin 5 mg 08/08/24 07:45 08/08/24 09:42 Melatonin 5mg Tablet PO 09/07/24 07:44 Not Given HSP MARCO Mineral Oil 133 ml 08/07/24 18:29 08/07/24 21:38 Mineral Oil Enema 133ml RC 08/07/24 18:30 133 ml ONCE ONE Administration Mineral Oil 133 ml 08/07/24 18:29 Mineral Oil Enema 133ml RC 09/06/24 18:28 NEEDED PRN Constipation Non-Formulary Medication 3 mg 08/08/24 00:15 08/08/24 02:18 Melatonin PO 09/07/24 00:14 Not Given HSP MARCO Ondansetron HCl 4 mg 08/07/24 14:34 08/07/24 14:57 Ondansetron 4mg/2ml Vial IV 08/07/24 14:35 4 mg ONCE ONE Administration Ondansetron HCl 4 mg 08/07/24 18:22 08/08/24 09:40 Ondansetron 4mg/2ml Vial IV 09/06/24 18:21 4 mg Q8HP PRN Administration Nausea Potassium Chloride 80 meq 08/08/24 11:05 08/08/24 11:34 Potassium Chloride 20meq Tab PO 08/08/24 11:06 80 meq ONCE ONE Administration Pravastatin Sodium 40 mg 08/08/24 21:00 Pravastatin 40mg Tab PO 09/07/24 20:59 HS MARCO Prednisone 5 mg 08/08/24 09:00 08/08/24 08:30 Prednisone 5mg Tab PO 09/07/24 08:59 5 mg DAILY MARCO Administration Promethazine HCl 25 mg 08/08/24 00:12 08/08/24 02:14 Promethazine 25mg Tablet PO 09/07/24 00:11 25 mg Q6HP PRN Administration Nausea And Vomiting Sodium Chloride 10 ml 08/07/24 15:08 08/07/24 15:09 Sodium Chloride 0.9% 10ml Syr (Rad Only) IV 08/07/24 15:09 10 ml ONCE ONE Administration Sodium Chloride 10 ml 08/08/24 00:02 Sodium Chloride 0.9% 10ml Flush Syringe IV 09/07/24 00:01 NEEDED PRN Maintain IV Site Tamsulosin HCl 0.4 mg 08/08/24 09:00 08/08/24 08:30 Tamsulosin 0.4mg Capsule PO 09/07/24 08:59 0.4 mg DAILY MARCO Administration Tramadol HCl 50 mg 08/08/24 00:12 Tramadol 50mg Tablet PO 09/07/24 00:11 Q6HP PRN Moderate Pain (Scale Score 5-6) Triamterene/Hydrochlorothiazide 1 each 08/08/24 09:00 08/08/24 08:30 Hctz 25mg/Triamterene 37.5mg Tablet PO 09/07/24 08:59 1 each DAILY MARCO Administration ORDERS Category Date Time Status CT abdomen pelvis w con Stat Cat Scan 08/07/24 14:34 Completed Basic Metabolic Panel AMLAB Lab 08/08/24 05:49 Completed CBC w/Auto Diff [Complete Blood Count Auto Diff] Stat Lab 08/07/24 14:31 Completed CMP [Comprehensive Metabolic Panel] Stat Lab 08/07/24 14:31 Completed Complete Blood Count Auto Diff AMLAB Lab 08/08/24 05:49 Completed HIV (1&2) Antibody Rapid Stat Lab 08/07/24 14:31 Completed Hep C Ab with Reflex to RNA Stat Lab 08/07/24 14:31 Completed Lipase Stat Lab 08/07/24 14:31 Completed Magnesium Stat Lab 08/07/24 14:31 Completed UA [Urinalysis and Microscopic] Stat Lab 08/07/24 15:21 Completed Urine Culture Stat Micro 08/07/24 15:21 Results Medical Decision Narrative: In summary patient is a 78-year-old female who presents to the emergency department for evaluation of cute abdominal pain. Patient is hemodynamically stable upon arrival, afebrile. Physical exam is remarkable for diffuse mild abdominal tenderness to palpation with a soft abdomen without rebound or guarding or rigidity and normal bowel sounds. There is no CVA tenderness to percussion. Differential diagnosis includes constipation versus obstipation versus bowel obstruction versus pancreatitis versus urinary tract infection versus kidney stone etc. Initial workup will be conducted with hematologic labs urinalysis CT scan abdomen pelvis. Initial interventions include Tylenol and ibuprofen. Initial workup reviewed by me shows her hematologic labs are nonactionable but patient does have chronic hyponatremia chronic kidney disease urinalysis is bland and my informal interpretation of her CT scan abdomen pelvis shows proctitis and constipation. Initially we attempted a soapsuds enema without success. I then personally tried manual disimpaction and could not reach the stool ball insufficient angle without patient discomfort to disimpact her. Given that I had an interactive discussion with Dr. Akhtar of gastroenterology outpatient management who recommended serial mineral oral enemas and reevaluation if it is unsuccessful and she may need possibly endoscopic disimpaction. Given that, I had an interactive discussion with hospital medicine who is agreed for admission for further evaluation and care I was consulted by the OWEN, and we discussed the complexity of the problems being addressed. I approved the treatment and management plan for this patient's care in the Emergency Department, thus performing a substantive portion of the medical decision making. Xavier Gibson MD Critical Care <EDWAR Moore - Last Filed: 08/07/24 18:23> Critical Care Time Critical Care Time: No
--- NOTE | 2024-08-07 14:34 | CT_ITS ---
FINAL REPORT TECHNIQUE: After the administration of intravenous contrast, axial images were obtained through the abdomen and pelvis by computed tomography. This study was performed with technique to keep radiation doses as low as reasonably achievable, (ALARA). Individualized dose reduction techniques using automated exposure control or adjustment of the MA and/or KV according to the patient's size were employed. CLINICAL HISTORY: Abdominal pain, no bm in 4 days no flatus COMPARISON: 07/14/2024 FINDINGS: Abdomen: The lung bases demonstrate a small left pleural effusion which is increased from prior exam. There is atelectasis at the left lung base. The liver is normal in size and attenuation. There are calcified granulomas in the spleen. The adrenals are normal. The pancreas is unremarkable. The kidneys enhance appropriately. The aorta is normal in caliber. There is no free fluid or adenopathy. Pelvis: The appendix is not identified. Large amount of stool seen throughout the colon. Rectum is enlarged with impaction and measuring up to 7.3 cm. There is mild surrounding stranding consistent with proctitis. The urinary bladder is unremarkable. There is no free fluid or adenopathy. IMPRESSION: Rectal impaction with mild proctitis. Worsening left pleural effusion. Reviewed, Interpreted and Dictated by Jomar Nguyen MD Transcribed by Jazmin Escudero Authenticated and [facility]
[2024-08-07 14:41] LABS: Basophils # 0.1 K/mm3 (0-0.2); Eosinophils # 0.1 K/mm3 (0.0-0.4); Eosinophils % 1.2 % (0.1-12.0); Hematocrit 36.2 % (37.0-47.0); Hemoglobin 12.5 g/dL (12.2-16.2); Lymphocytes # 0.7 K/mm3 (0.7-4.5); Lymphocytes % 6.8 % (10-50); Mean Corpuscular HGB Conc 34.5 g/dL (31.8-35.4); Mean Corpuscular Hemoglobin 36.7 pg (27.0-31.2); Mean Corpuscular Volume 106.4 fl (81-99); Mean Platelet Volume 7.6 fl (7.4-10.4); Monocytes # 0.4 K/mm3 (0.1-1.0); Monocytes % 3.9 % (1.7-9.3); Neutrophils # 9.1 K/mm3 (1.8-7.8); Neutrophils % 87.1 % (37.0-80.0); Platelet Count 288 K/mm3 (142-424); Red Cell Distribution Width 13.6 % (11.5-17.5); White Blood Count 10.4 K/mm3 (4.8-10.8)
[2024-08-07 14:49] LABS: Alanine Aminotransferase 25 U/L (12-78); Albumin/Globulin Ratio 1.6 (1.1-1.8); Alkaline Phosphatase 123 U/L (38-126); Anion Gap 5.7 mEq/L (5-15); Aspartate Amino Transferase 35 U/L (14-36); Bilirubin,Total 0.7 mg/dl (0.2-1.3); Blood Urea Nitrogen 16 mg/dl (7-17); Calcium 9.2 mg/dl (8.4-10.2); Carbon Dioxide 26 mmol/L (22.0-30.0); Chloride 96 mmol/L (98-107); Creatinine Clearance Estimated 43 mL/min (50-200); Estimated Glomerular Filt Rate 48 ml/min (>60); GFR (African American) 58 ML/MIN (>60); Globulin 2.5 g/dL (1.3-3.2); Glucose 97 mg/dl (74-100); Lipase 67 U/L (23-300); Magnesium 1.6 mg/dl (1.6-2.3); Potassium 3.7 mmoL/L (3.5-5.1); Sodium 124 mmol/L (136-145); Total Protein,Serum 6.5 g/dl (6.3-8.2)
[2024-08-07 14:51] LABS: MANUAL DIFFERENTIAL MANUAL DIFFERENTIAL (MANUAL DIFF)
[2024-08-07] MEDS: ONDANSETRON 4MG/2ML VIAL 4 MG IV (14:57)
[2024-08-07] MEDS: ACETAMINOPHEN 500MG TAB 1000 MG PO (14:58)
[2024-08-07] MEDS: KETOROLAC 30MG/ML VIAL 15 MG IV (14:58)
[2024-08-07] MEDS: SODIUM CHLORIDE 0.9% 10ML SYR (RAD ONLY) 10 ML IV (15:09)
[2024-08-07] MEDS: IOPAMIDOL-370 (76%);100ML BOTTLE 75 ML IV (15:09)
--- NOTE | 2024-08-07 15:23 | PC.NURSE ---
UA sent to lab @[phone]
[2024-08-07 15:25] LABS: Microscopic, Urine URINE MICROSCOPIC (MICROSCOPIC)
[2024-08-07 15:27] LABS: Appearance,Urine SL CLOUDY (Clear); Bilirubin,Urine Negative (Negative); Blood, Urine Negative (Negative); Color,Urine YELLOW (Yellow); Glucose,Urine (UA) Negative (Negative); Ketones,Urine Negative (Negative); Leukocyte Esterase,Urine 1+ (Negative); Nitrate,Urine Negative (Negative); Protein,Urine Negative (Negative); Specific Gravity, Urine 1.015 (1.005-1.030); Urobilinogen,Urine 0.2 EU/dl (0.2)
[2024-08-07 15:28] LABS: Lymphocytes % 10 % (10-50); Monocytes % 5 % (2-9); Neutrophils % 85 % (42-76); Total Cells Counted 100
[2024-08-07 15:29] LABS: Macrocytosis 2+; Platelet Estimate Normal
[2024-08-07 15:32] LABS: Bacteria,Urine Trace /lpf
[2024-08-07 16:10] LABS: HIV (1&2) Antibody Rapid NONREACTIVE (NONREACTIVE)
--- NOTE | 2024-08-07 17:20 | PC.NURSE ---
pt tolerated soap suds enema well.
--- NOTE | 2024-08-07 18:01 | PC.NURSE ---
pt noted to have a deep tissue injury to R heel. edema to ble.
--- NOTE | 2024-08-07 18:19 | PC.NURSE ---
[facility] SPEAKING WITH HOSPITALIST, WILL ACCEPT FOR ADMISSION, BUT WAIT FOR SURVEY OPERATIONS DIRECTOR MIDLEVEL TO TAKE PT
--- NOTE | 2024-08-07 18:31 | PC.NURSE ---
[employer] NOTIFIED OF ADMISSION
[2024-08-07 18:33] VITALS: BP 143/88; PULSE 92; RESP 18; TEMP 36.7; O2SAT 98
[2024-08-07 18:34] VITALS: BP 143/88; PULSE 99; O2SAT 96
--- NOTE | 2024-08-07 20:12 | PC.NURSE ---
Patient arrived to floor via wheelchair from ED at 19:55.
--- NOTE | 2024-08-07 20:32 | EXP.HP ---
History of Present Illness *Admission Date: 08/07/24 *Reason for visit:: abdominal pain *History of present illness: Patient is a 78-year-old female who presents to the hospital due to abdominal pain. Patient with borderline has been having abdominal pain for past 4 days, she did not have significant bowel movements, she denies passing gas, she was recently had diarrhea facility, for the past 2 days she has been home, she did not have any bowel movement in the meantime. Patient mentions she has intermittent abdominal pain, denies any associated nausea vomiting diarrhea. Patient mentions usually she has bowel movement almost every day. Patient otherwise denies fevers chills chest pain shortness of breath dysuria. On further evaluation patient was found to have impacted distal with mild proctitis on CT abdomen pelvis and was admitted for further evaluation.. [facility] Disclaimer: The information contained in this section may have been updated after the patient was seen, as this information can be updated by other users. Medical History (Updated 08/07/24 @ 22:19 by Sushma Franco RN) Falls Trochanteric bursitis, right hip Skin tear of left upper extremity Contusion of elbow, left Contusion of hip, left Trochanteric bursitis, left hip Closed fracture of greater trochanter of femur Pain around toenail, right foot Ingrown toenail of right foot Closed nondisplaced fracture of fifth right metatarsal bone MARY (acute kidney injury) Enteritis Hypothyroidism Foot fracture, right Polymyalgia rheumatica syndrome History of back pain History of left heart catheterization Hyperlipidemia Hypertension Cataract COVID-19 Closed fracture of fourth metatarsal of right foot Nondisplaced fracture of fifth right metatarsal bone with routine healing Myocardial infarction HLD (hyperlipidemia) CAD (coronary artery disease) Rheumatoid arthritis Surgical History (Updated 08/07/24 @ 22:19 by Sushma Franco RN) H/O cataract removal with insertion of prosthetic lens History of heart artery stent Previous back surgery H/O thyroidectomy History of appendectomy History of hysterectomy History of tonsillectomy Family History Other Cancer Heart attack Hypertension Social History (Updated 08/07/24 @ 22:21 by Sushma Franco RN) Smoking Status: Former smoker tobacco type: cigarettes packs per day: 1 years smoked: 40 how long ago did patient quit smokin years alcohol intake: never substance use type: denies use current occupational status: retired Travel in the last 8 weeks: None caregiver/support person: Yes () household members: spouse housing: house marital status: special marvin needs: No Other Medical History Have you received the Flu Vaccine for this season: No Have you received the Pneumonia Vaccine: No Review of Systems Review of Systems Review of systems:: pertinent systems reviewed and negative unless documented below Meds Home Medications and Allergies Home Medications ?Medication ?Instructions ?Recorded ?Confirmed ?Type levothyroxine 112 mcg tablet 112 mcg PO DAILYDM 04/24/18 08/07/24 History simvastatin 20 mg tablet 20 mg PO HS 04/24/18 08/07/24 History hydroxychloroquine 200 mg tablet 200 mg PO DAILY 05/11/22 08/07/24 History cetirizine 10 mg capsule 10 mg PO DAILY 07/01/22 08/07/24 History prednisone 5 mg tablet 5 mg PO DAILY 07/01/22 08/07/24 History potassium chloride 10 mEq 10 meq PO DAILY #30 caps 06/02/24 08/07/24 Rx capsule,extended release acetaminophen 500 mg tablet 500 mg PO Q6HP PRN Mild Pain 07/15/24 08/07/24 History (Scale Score 1-4) aspirin 81 mg tablet,delayed 81 mg PO DAILY 07/15/24 08/07/24 History release benzonatate 100 mg capsule 100 mg PO TIDP PRN Cough 07/15/24 08/07/24 History carvedilol 3.125 mg tablet 3.125 mg PO BID 07/15/24 08/07/24 History cyclobenzaprine 5 mg tablet 5 mg PO TID 07/15/24 08/07/24 History hydroxyzine pamoate 25 mg capsule 25 mg PO Q6HP PRN Anxiety 07/15/24 08/07/24 History melatonin 3 mg tablet 3 mg PO HSP Insomnia 07/15/24 08/07/24 History promethazine 25 mg tablet 25 mg PO Q6HP PRN Nausea And 07/15/24 08/07/24 History Vomiting tramadol 50 mg tablet 50 mg PO Q6HP PRN Moderate Pain 07/15/24 08/07/24 History (Scale Score 5-6) sennosides 8.6 mg-docusate sodium 2 tab-cap (2 x 8.6-50 mg) PO BID 07/16/24 08/07/24 Rx 50 mg tablet (Senna Plus) PRN Constipation 30 days #0 tabs tamsulosin 0.4 mg capsule 0.4 mg PO DAILY 30 days #30 caps 07/16/24 08/07/24 Rx triamterene 37.5 1 tab PO DAILY 08/07/24 08/07/24 History mg-hydrochlorothiazide 25 mg tablet New Prescriptions to Start Prescriptions: Allergies Allergy/AdvReac Type Severity Reaction Status Date / Time Sulfa (Sulfonamide Allergy Unknown Hives Verified 07/14/24 18:43 Antibiotics) [SULFA (SULFONAMIDE ANTIBIOTICS)] codeine Allergy Vomiting Verified 07/15/24 00:25 Penicillins Allergy Hives Verified 07/14/24 18:43 Exam Data for Last 24 hours Vital signs and Labs for Last 24 Hours: Temp Pulse Resp BP Pulse Ox O2 Del Method 98.1 F 99 H 18 143/88 H 96 Room Air 08/07/24 18:33 08/07/24 18:34 08/07/24 18:33 08/07/24 18:34 08/07/24 18:34 08/07/24 18:34 Laboratory Results - last 24 hr 08/07/24 14:31: WBC 10.4, RBC 3.40 L, Hgb 12.5, Hct 36.2 L, MCV 106.4 H, MCH 36.7 H, MCHC 34.5, RDW 13.6, Plt Count 288, MPV 7.6, Neut % (Auto) 87.1 H, Lymph % (Auto) 6.8 L, [place] % (Auto) 3.9, Eos % (Auto) 1.2, Baso % (Auto) 1.0, Neut # (Auto) 9.1 H, Lymph # (Auto) 0.7, [place] # (Auto) 0.4, Eos # (Auto) 0.1, Baso # (Auto) 0.1, Total Counted 100, Neutrophils % (Manual) 85 H, Lymphocytes % (Manual) 10, Monocytes % (Manual) 5, Platelet Estimate Normal, Macrocytosis 2+, Sodium 124 L, Potassium 3.7, Chloride 96 L, Carbon Dioxide 26, Anion Gap 5.7, BUN 16, Creatinine 1.10 H, Estimated Creat Clear 43, Estimated GFR 48 L, Est GFR ( Amer) 58 L, Glucose 97, Calcium 9.2, Magnesium 1.6, Total Bilirubin 0.7, AST 35, ALT 25, Alkaline Phosphatase 123, Total Protein 6.5, Albumin 4.0, Globulin 2.5, Albumin/Globulin Ratio 1.6, Lipase 67, HIV 1&2 Antibody Rapid Nonreactive 08/07/24 15:21: Urine Color Yellow, Urine Appearance Sl cloudy, Urine pH 7.0, Ur Specific [place] 1.015, Urine Protein Negative, Urine Glucose (UA) Negative, Urine Ketones Negative, Urine Blood Negative, Urine Nitrate Negative, Urine Bilirubin Negative, Urine Urobilinogen 0.2, Ur Leukocyte Esterase 1+ A, Urine RBC None, Urine WBC 3-5, Ur Squamous Epith Cells None, Urine Bacteria Trace I & O for Last 24 hours: Intake & Output 08/04/24 08/05/24 08/06/24 08/07/24 23:59 23:59 23:59 23:59 Weight 63.503 kg Constitutional Constitutional: no acute distress *Routine HEENT Exam Head: Present normocephalic Eye: Present EOMI and PERRL ENT: Present mucous membranes moist *Routine Neck Exam Neck: Present supple; Absent lymphadenopathy *Routine Respiratory Exam Respiratory: Present CTA bilaterally *Routine Cardiovascular Exam Cardiovascular: Present RRR *Routine Abdominal Exam Abdominal: Present soft and normoactive bowel sounds; Absent tenderness *Routine Rectal Exam Rectal:: deferred *Routine Genitalia Exam Genitalia:: deferred *Routine Extremities Exam Extremities: Absent cyanosis, clubbing or edema *Routine Skin Exam Skin: Present warm; Absent rash *Routine Neurological Exam Neurological: Present alert and oriented X3 Assessment and Plan *Assessment and plan (1) Fecal impaction in rectum: Status: Acute Category: Medical Code(s): K56.41 - Fecal impaction (2) Acute proctitis: Status: Acute Category: Medical Code(s): K62.89 - Other specified diseases of anus and rectum (3) Hyponatremia: Status: Acute Category: Medical Code(s): E87.1 - Hypo-osmolality and hyponatremia (4) Hypertension: Status: Acute Category: Medical Code(s): I10 - Essential (primary) hypertension (5) Hypothyroidism: Status: Chronic Category: Medical Code(s): E03.9 - Hypothyroidism, unspecified (6) CAD (coronary artery disease): Status: Acute Category: Medical Code(s): I25.10 - Atherosclerotic heart disease of [place] coronary artery without angina pectoris Plan Patient is a 78-year-old female who presents to the hospital due to abdominal pain. Patient with borderline has been having abdominal pain for past 4 days, she did not have significant bowel movements, she denies passing gas, she was recently had diarrhea facility, for the past 2 days she has been home, she did not have any bowel movement in the meantime. Patient mentions she has intermittent abdominal pain, denies any associated nausea vomiting diarrhea. Patient mentions usually she has bowel movement almost every day. Patient otherwise denies fevers chills chest pain shortness of breath dysuria. On further evaluation patient was found to have impacted distal with mild proctitis on CT abdomen pelvis and was admitted for further evaluation.. Assessment and plan Severe constipation Proctitis Started on mineral on Started on Rocephin, Flagyl IV fluids, advance diet as tolerated GI consulted from emergency department Patient is a status post enema in the emergency department plan small bowel movement Hyponatremia likely chronic Patient appears euvolemic Monitor Chronic medical conditions History of CAD Hypothyroidism Hypertension Hyperlipidemia -Resume home Coreg, HCTZ, aspirin, levothyroxine DVT prophylaxis-on lovenox
[2024-08-07 20:48] VITALS: BP 143/79; PULSE 87; RESP 18; TEMP 36.6; O2SAT 98; BMI 23.3
[2024-08-07] MEDS: MINERAL OIL ENEMA 133ML 133 ML RC (21:38)
[2024-08-07] MEDS: 0.9 % SODIUM CHLORIDE 1000ML 1,000 ML 333 ML IV (21:41)
[2024-08-08] VITALS: BP 160/88; PULSE 90; RESP 18; TEMP 36.4; O2SAT 97
[2024-08-08] MEDS: 0.9 % SODIUM CHLORIDE 1000ML 1,000 ML 75 ML IV (02:04)
[2024-08-08] MEDS: CEFTRIAXONE 1 GM 1 GM in 0.9 % SODIUM CHLORIDE 50 ML IV (02:04)
[2024-08-08] MEDS: PROMETHAZINE 25MG TABLET 25 MG PO (02:14)
[2024-08-08] MEDS: METRONIDAZ/SOD CHL 500 MG/100 ML PIGGYBACK 100 MG IV ×2 (02:38→08:32)
[2024-08-08 04:00] VITALS: BMI 24.0
[2024-08-08 04:46] VITALS: BP 137/68; PULSE 91; RESP 18; TEMP 36.4; O2SAT 96
[2024-08-08 06:33] LABS: Basophils # 0.1 K/mm3 (0-0.2); Chloride 99 mmol/L (98-107); Eosinophils # 0.1 K/mm3 (0.0-0.4); Eosinophils % 1.3 % (0.1-12.0); Hematocrit 34.4 % (37.0-47.0); Hemoglobin 11.5 g/dL (12.2-16.2); Lymphocytes # 1.3 K/mm3 (0.7-4.5); Lymphocytes % 15.2 % (10-50); Mean Corpuscular HGB Conc 33.5 g/dL (31.8-35.4); Mean Corpuscular Hemoglobin 35.2 pg (27.0-31.2); Mean Corpuscular Volume 105.2 fl (81-99); Mean Platelet Volume 7.7 fl (7.4-10.4); Monocytes # 0.7 K/mm3 (0.1-1.0); Monocytes % 8.3 % (1.7-9.3); Neutrophils # 6.5 K/mm3 (1.8-7.8); Neutrophils % 74.2 % (37.0-80.0); Platelet Count 266 K/mm3 (142-424); Red Blood Count 3.27 M/mm3 (4.20-5.40); Red Cell Distribution Width 13.6 % (11.5-17.5); White Blood Count 8.7 K/mm3 (4.8-10.8)
[2024-08-08 06:34] LABS: Sodium 130 mmol/L (136-145)
[2024-08-08 06:37] LABS: Anion Gap 11.6 mEq/L (5-15); Blood Urea Nitrogen 12 mg/dl (7-17); Calcium 8.7 mg/dl (8.4-10.2); Carbon Dioxide 22 mmol/L (22.0-30.0); Creatinine Clearance Estimated 50 mL/min (50-200); Estimated Glomerular Filt Rate 54 ml/min (>60); GFR (African American) 65 ML/MIN (>60); Glucose 75 mg/dl (74-100)
[2024-08-08 07:05] LABS: Potassium 2.6 mmoL/L (3.5-5.1)
[2024-08-08 07:55] VITALS: BP 118/65; PULSE 95; RESP 17; TEMP 36.7; O2SAT 94
[2024-08-08] MEDS: HYDROXYCHLOROQUINE SULFATE 200MG TABLET 200 MG PO (08:30)
[2024-08-08] MEDS: TAMSULOSIN 0.4MG CAPSULE 0.4 MG PO (08:30)
[2024-08-08] MEDS: ASPIRIN EC 81MG TABLET 81 MG PO (08:30)
[2024-08-08] MEDS: HCTZ 25MG/TRIAMTERENE 37.5MG TABLET 1 EACH PO (08:30)
[2024-08-08] MEDS: predniSONE 5MG TAB 5 MG PO (08:30)
[2024-08-08] MEDS: ENOXAPARIN 40MG/0.4ML SYRINGE 40 MG SQ (08:31)
[2024-08-08] MEDS: CARVEDILOL 3.125MG TABLET 3.125 MG PO (08:31)
[2024-08-08] MEDS: LEVOTHYROXINE 112MCG (0.112MG) TAB 112 MCG PO (08:31)
[2024-08-08] MEDS: LORATADINE 10MG TABLET 10 MG PO (08:31)
[2024-08-08] MEDS: CYCLOBENZAPRINE 10MG TABLET 5 MG PO ×2 (08:32→13:34)
[2024-08-08] MEDS: ONDANSETRON 4MG/2ML VIAL 4 MG IV (09:40)
[2024-08-08] MEDS: KCl 20mEq/100ml 100 ML 50 MEQ IV (10:18)
[2024-08-08] MEDS: MAGNESIUM SULFATE IN WATER 2 GM/50 ML PIGGYBACK IV ×2 (11:26→12:32)
[2024-08-08] MEDS: POTASSIUM CHLORIDE 20MEQ TAB 80 MEQ PO (11:34)
[2024-08-08 12:00] VITALS: PULSE 90
[2024-08-08 13:00] VITALS: BP 120/66; PULSE 85; RESP 16; TEMP 36.6; O2SAT 93
[2024-08-08] MEDS: POTASSIUM CHLORIDE 20 MEQ, LIDOCAINE HCL/PF 3 ML in 0.9 % SODIUM CHLORIDE 100 ML 56.5 MEQ IV (13:34)
[2024-08-08 14:28] LABS: Anion Gap 8.9 mEq/L (5-15); Blood Urea Nitrogen 11 mg/dl (7-17); Calcium 8.8 mg/dl (8.4-10.2); Carbon Dioxide 23 mmol/L (22.0-30.0); Chloride 99 mmol/L (98-107); Creatinine Clearance Estimated 50 mL/min (50-200); Estimated Glomerular Filt Rate 54 ml/min (>60); GFR (African American) 65 ML/MIN (>60); Glucose 121 mg/dl (74-100); Potassium 3.9 mmoL/L (3.5-5.1); Sodium 127 mmol/L (136-145)
[2024-08-09 08:28] LABS: HCV Ab Non Reactive (Non Reactive)
--- NOTE | 2024-08-13 13:17 | SW/DCPLANNER ---
Hospital follow up phone call: patient stated that she is doing well at home. Patient is aware of her follow up appointment w/ Dr Torres tomorrow. No further needs/questions at this time.
--- NOTE | 2024-08-21 08:28 | EXP.DC.SUM ---
General Admission date:: 08/07/24 HPI HPI HPI: Patient is a 78-year-old female who presents to the hospital due to abdominal pain. Patient with borderline has been having abdominal pain for past 4 days, she did not have significant bowel movements, she denies passing gas, she was recently had diarrhea facility, for the past 2 days she has been home, she did not have any bowel movement in the meantime. Patient mentions she has intermittent abdominal pain, denies any associated nausea vomiting diarrhea. Patient mentions usually she has bowel movement almost every day. Patient otherwise denies fevers chills chest pain shortness of breath dysuria. On further evaluation patient was found to have impacted distal with mild proctitis on CT abdomen pelvis and was admitted for further evaluation.. Hospital Course Hospital Course Hospital Course: #Severe fecal impaction #Abdominal pain #UTI - CT abdomen shows rectal impaction with mild proctitis. - Efforts were made in the ED to manually disimpact, and given enema without significant stool output. - Given mineral oil enema during admission, with multiple bowel movements. Abdominal pain resolved. - UA suggestive of UTI, started on ceftriaxone. - Urine cultures after discharge show Listeria and entercoccus sensitive to penicillin. Called in pennicilin for 5 days. #Worsening small left pleural effusion - Seen on CT abdomen/pelvis. No SOB or cough. - Will refer to pulmnology for further evaluation. Exam Data for Last 24 hours Vital signs and Labs for Last 24 Hours: Temp Pulse Resp BP Pulse Ox O2 Del Method 98 F 85 16 120/66 93 L Room Air 08/08/24 13:00 08/08/24 13:00 08/08/24 13:00 08/08/24 13:00 08/08/24 13:00 08/08/24 15:00 Constitutional Constitutional: no acute distress *Routine HEENT Exam Head: Present normocephalic Eye: Present EOMI and PERRL ENT: Present mucous membranes moist *Routine Neck Exam Neck: Present supple; Absent lymphadenopathy *Routine Respiratory Exam Respiratory: Present CTA bilaterally *Routine Cardiovascular Exam Cardiovascular: Present RRR *Routine Abdominal Exam Abdominal: Present soft and normoactive bowel sounds; Absent tenderness *Routine Extremities Exam Extremities: Absent cyanosis, clubbing or edema *Routine Skin Exam Skin: Present warm; Absent rash *Routine Neurological Exam Neurological: Present alert and oriented X3 DS: Diagnosis Discharge Diagnosis (1) Fecal impaction in rectum: Status: Resolved Code(s): K56.41 - Fecal impaction (2) Acute proctitis: Status: Resolved Code(s): K62.89 - Other specified diseases of anus and rectum (3) Hyponatremia: Status: Acute Code(s): E87.1 - Hypo-osmolality and hyponatremia (4) Hypertension: Status: Acute Code(s): I10 - Essential (primary) hypertension (5) Hypothyroidism: Status: Chronic Code(s): E03.9 - Hypothyroidism, unspecified (6) CAD (coronary artery disease): Status: Acute Code(s): I25.10 - Atherosclerotic heart disease of [place] coronary artery without angina pectoris Meds Home Medications and Allergies Home Medications ?Medication ?Instructions ?Recorded ?Confirmed ?Type levothyroxine 112 mcg tablet 112 mcg PO DAILYDM 04/24/18 08/08/24 History simvastatin 20 mg tablet 20 mg PO HS 04/24/18 08/08/24 History hydroxychloroquine 200 mg tablet 200 mg PO DAILY 05/11/22 08/08/24 History cetirizine 10 mg capsule 10 mg PO DAILY 07/01/22 08/08/24 History prednisone 5 mg tablet 5 mg PO DAILY 07/01/22 08/08/24 History potassium chloride 10 mEq 10 meq PO DAILY #30 caps 06/02/24 08/08/24 Rx capsule,extended release acetaminophen 500 mg tablet 500 mg PO Q6HP PRN Mild Pain 07/15/24 08/08/24 History (Scale Score 1-4) aspirin 81 mg tablet,delayed 81 mg PO DAILY 07/15/24 08/08/24 History release benzonatate 100 mg capsule 100 mg PO TIDP PRN Cough 07/15/24 08/08/24 History carvedilol 3.125 mg tablet 3.125 mg PO BIDWMEAL 07/15/24 08/08/24 History cyclobenzaprine 5 mg tablet 5 mg PO TID 07/15/24 08/08/24 History hydroxyzine pamoate 25 mg capsule 25 mg PO Q6HP PRN Anxiety 07/15/24 08/08/24 History melatonin 3 mg tablet 3 mg PO HSP Insomnia 07/15/24 08/08/24 History promethazine 25 mg tablet 25 mg PO Q6HP PRN Nausea And 07/15/24 08/08/24 History Vomiting tramadol 50 mg tablet 50 mg PO Q6HP PRN Moderate Pain 07/15/24 08/08/24 History (Scale Score 5-6) tamsulosin 0.4 mg capsule 0.4 mg PO DAILY 30 days #30 caps 07/16/24 08/08/24 Rx polyethylene glycol 3350 17 17 g PO DAILY #510 grams 08/08/24 Rx gram/dose oral powder (Miralax) sennosides 8.6 mg-docusate sodium 2 tab-cap PO BIDP PRN Constipation 08/08/24 08/08/24 History 50 mg tablet (Senna Plus) amoxicillin 500 mg capsule 500 mg PO BID 5 days #10 caps 08/27/24 Rx New Prescriptions to Start Prescriptions: amoxicillin Mejia Weiner polyethylene glycol 3350 [Miralax] Mejia Weiner Allergies Allergy/AdvReac Type Severity Reaction Status Date / Time Sulfa (Sulfonamide Allergy Unknown Hives Verified 07/14/24 18:43 Antibiotics) [SULFA (SULFONAMIDE ANTIBIOTICS)] codeine Allergy Vomiting Verified 07/15/24 00:25 Penicillins Allergy Hives Verified 07/14/24 18:43 Discharge Plan Disposition Patient Disposition: Home, Self-Care Condition: Good Follow up Plan Follow up with: Wyatt Torres MD [Staff Physician] - 08/14/24 2:15 pm Prescriptions/Medication Reconciliation: New polyethylene glycol 3350 [Miralax] 17 gram/dose powder 17 g PO DAILY Qty: 510 0RF amoxicillin 500 mg capsule 500 mg PO BID 5 Days Qty: 10 0RF Continued hydroxychloroquine 200 mg tablet 200 mg PO DAILY simvastatin 20 MG tablet 20 mg PO HS levothyroxine 112 MCG tablet 112 mcg PO DAILYDM prednisone 5 mg tablet 5 mg PO DAILY cetirizine 10 mg Capsule 10 mg PO DAILY potassium chloride 10 mEq capsule, extended release 10 meq PO DAILY Qty: 30 0RF melatonin 3 mg Tablet 3 mg PO HSP aspirin 81 mg Tablet,Delayed Release (Dr/Ec) 81 mg PO DAILY acetaminophen 500 mg Tablet 500 mg PO Q6HP PRN (Reason: Mild Pain (Scale Score 1-4)) benzonatate 100 mg Capsule 100 mg PO TIDP PRN (Reason: Cough) hydroxyzine pamoate 25 mg Capsule 25 mg PO Q6HP PRN (Reason: Anxiety) tramadol 50 mg Tablet 50 mg PO Q6HP PRN (Reason: Moderate Pain (Scale Score 5-6)) carvedilol 3.125 mg Tablet 3.125 mg PO BIDWMEAL cyclobenzaprine 5 mg Tablet 5 mg PO TID promethazine 25 mg Tablet 25 mg PO Q6HP PRN (Reason: Nausea And Vomiting) tamsulosin 0.4 mg Capsule 0.4 mg PO DAILY 30 Days Qty: 30 0RF sennosides-docusate sodium [Senna Plus] 8.6-50 mg tablet 2 tab-cap PO BIDP PRN (Reason: Constipation) Problem Reconciliation Problems Reviewed?: Yes Patient Discharge Instructions ACTIVITY: Continue current activity DIET: continue same diet Patient Instructions: High-Fiber Diet, DI for Fecal Impaction Print Language: [place] Providers Primary Care Provider: Provider,Referral Admit Provider: Mejia Weiner Attending Provider: Mejia Weiner
--- NOTE | 2024-08-27 15:32 | CARE MANAGER ---
Dr. Weiner requested patient be referred to Pulmonology. Appt scheduled on 11/10/24 @330pm. Also notified patient of that appointment and antibiotic called into [facility]. Patient verbalized understanding.
== END 2024-08-08 15:28 | disposition home or self-care (01) ==
LOC: ER 18:23 → 2ND 19:23
PROVIDERS: Physician Assistant; Admitting Provider Student in an Organized Health Care Education/Training Program; Emergency Provider Student in an Organized Health Care Education/Training Program; Visit Provider Student in an Organized Health Care Education/Training Program
DX: K56.41 Fecal impaction (principal); K62.89 Other specified diseases of anus and rectum; E87.1 Hypo-osmolality and hyponatremia; I10 Essential (primary) hypertension; E03.9 Hypothyroidism, unspecified; I25.10 Atherosclerotic heart disease of native coronary artery without angina pectoris; Z79.899 Other long term (current) drug therapy; Z86.16 Personal history of COVID-19; I25.2 Old myocardial infarction; Z87.891 Personal history of nicotine dependence; N39.0 Urinary tract infection, site not specified
CPT/HCPCS: 36415; 74177; 80048; 80053; 81001; 83690; 83735; 85007; 85025; 85027; 86803; 87086; 87088; 87186; 87389; 99285; G0378; J0696; J1650; J1885; J2405; J3475; J3480; J7030; J7512; Q9967

== ENCOUNTER 2024-08-14 13:01 | Outpatient (CLI) | payer MEDICARE, OTHER, SELFPAY ==
[2024-08-14 14:06] LABS: Alanine Aminotransferase 24 U/L (12-78); Albumin Level 3.9 g/dl (3.5-5.0); Alkaline Phosphatase 106 U/L (38-126); Anion Gap 10.3 mEq/L (5-15); Aspartate Amino Transferase 31 U/L (14-36); Bilirubin,Direct 0.4 mg/dl (0.0-0.4); Bilirubin,Indirect 0.1 mg/dL (0.0-0.9); Bilirubin,Total 0.5 mg/dl (0.2-1.3); Bilirubin,Unconjugated 0.1 mg/dL (0.0-1.1); Blood Urea Nitrogen 12 mg/dl (7-17); Calcium 9.3 mg/dl (8.4-10.2); Carbon Dioxide 24 mmol/L (22.0-30.0); Chloride 98 mmol/L (98-107); Chol/HDL Ratio 1.7 (1-3.5); Cholesterol 181 mg/dl (140-200); Estimated Glomerular Filt Rate 48 ml/min (>60); GFR (African American) 58 ML/MIN (>60); Glucose 125 mg/dl (74-100); HDL Cholesterol 104 mg/dl (40-60); Potassium 3.3 mmoL/L (3.5-5.1); Sodium 129 mmol/L (136-145); Total Protein,Serum 6.3 g/dl (6.3-8.2); Triglycerides 152 mg/dl (30-150); VLDL Cholesterol 30 mg/dL (0-40)
[2024-08-14 14:17] LABS: Direct LDL Cholesterol 59.26 mg/dL (100-129)
== END 2024-08-14 23:59 | disposition home or self-care (01) ==
LOC: LAB 13:02
PROVIDERS: PCP Family Medicine; Visit Provider Internal Medicine Interventional Cardiology
DX: E78.00 Pure hypercholesterolemia, unspecified (principal)
CPT/HCPCS: 36415; 80048; 80061; 80076

== ENCOUNTER 2024-10-06 11:00 | Outpatient (RCR) | payer MEDICARE, OTHER, SELFPAY ==
--- NOTE | 2024-09-09 11:51 | HMH.PTOPEV ---
PT Outpatient Evaluation Rehab PT Outpatient Evaluation Start: 09/09/24 10:12 Freq: Status: Active Protocol: Document 09/09/24 10:12 LISASEROUKorey (Rec: 09/09/24 11:51 PDESEROUX [id number]) E-signed By Edward Garcia, PT Outpatient Therapy Subjective History Subjective History Pt. is a 78 year old Female who presents to [facility] Outpatient Physical Therapy Services in [place] for the initial evaluation this date(09/09/24) w/ c/o subacute and intermittent RLE hip P!, imbalance, and unsteadiness of traumatic onset secondary to a fall at home 2 months ago. Pt. reports she has a step at home to go into her den where the fall occurred. Pt. reports she got to the top of the step, lowered her FWW down into the den where there was a rug then when pt. went to weight bear through BUEs onto walker to negotiate step descension the FWW and RLE slipped on the rug out from underneath of her in which she fell onto the RLE hip/buttock region pt. states. Pt. reports needing assistance from her to stand back up and vocalized having a 6/ 10 RLE groin P! w/ the transfer. Pt. reports diagnostic imaging indicated acute pelvis fracture secondary to fall, but was also told of 3 chronic fractures in the pelvis. Pt. reports she was in [place] x4 wks. and had Home Health Physical Therapy for 2 wks. Pt . reports she currently ambulates w/ rollator at all times, but c/o unsteadiness and imbalance during ambulation. Pt. denies dizziness w/ ambulation, c/o swaying from side to side when she ambulates w/ and w/o AD. Pt. denies having any further diagnostic imaging post fall that would indicate further healing to fracture. Pt. RTMD PRN. Pt. denies having any falls since she has been home. Current medications include Tramadol, Levothyroxine, Hydroxyzine, Cyclobenzaprine, Prednisone, Aspirin, Simvastatin, and Carvedilol. 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 New diagnosis of cancer in past 12 No months? Chief Complaint Pain,Stiff,Gives out/Unstable, Weakness,Other Symptom Type Ache,Sharp,Dull Symptoms Relieved By Rest/Positioning,Ice,Brace/ Support Symptoms Aggravated By Standing,Physical Activity, Twisting,Walking,Lifting Prior Functional Limitations None Current Functional Limitations Housework,Standing,Squatting, Recreation Activity,Walking, Stairs,Balance Symptom Description Activity Dependent Level of pain today (0-10) 0 Pain scale - at its best (0-10) 0 Pain scale - at its worst (0-10) 5 Hip/Knee Eval Gait Observation General Gait Pattern Observation Antalgic Gait,Decrease Weight Bear (R),Decrease Stride Lngth (L) Assistive Device Assistive Devices Rolling / Wheeled Walker Palpation Tenderness right Knee Palpation Finding Tenderness Knee Palpation Overall Comment grade 3 +TTP to rectus femoris and adductor group MMT Hip Flexion Strength Grade 3+ Fair+ Hip Abduction Strength Grade 3+ Fair+ Hip Adduction Strength Grade 3+ Fair+ Hip Extension Strength Grade 3+ Fair+ Gluteus Ap Strength Grade 3+ Fair+ Hip External Rotation Strength Grade 3+ Fair+ Hip Internal Rotation Strength Grade 3+ Fair+ Knee Extension Strength Grade 4- Good- Knee Flexion Strength Grade 4- Good- Hip Extensors Muscle Tone Description Moderate Hypertonicity Hip Flexors Muscle Tone Description Moderate Hypertonicity ROM Hip Flexion w/Knee Flexed Active Range 69 of Motion (degrees) Hip Flexion w/Knee Flexed Passive Range 73 of Motion (degrees) Hip Abduction Active Range of Motion ( 13 degrees) Hip Abduction Passive Range of Motion ( 17 degrees) Hip Extension Active Range of Motion ( 13 degrees) Hip Extension Passive Range of Motion ( 17 degrees) Hip External Rotation Active Range of 21 Motion (degrees) Hip External Rotation Passive Range of 24 Motion (degrees) Hip Internal Rotation Active Range of 15 Motion (degrees) Hip Internal Rotation Passive Range of 19 Motion (degrees) Hip ROM Limitations Soft Tissue Tightness,Pain, Muscle Weakness,Tightness on Right,Pain on Right Special Tests Hip Scouring (Quadrant) Test Negative Right Olu Test Negative Outpatient Therapy Assessment Impairments Problems/Impairmments Palpation Tenderness,Impaired Range of Motion,Impaired Strength,Impaired Endurance, Impaired Transfers,Impaired Gait Pattern,Impaired Walking, Impaired Standing,Impaired Household Care,Impaired Stair Climbing,Impaired Squatting, Impaired Balance,Increased Edema,Subjective C/O Pain, Impaired Self Care/Self Management Prognosis Rehab Potential Good Comment w/ HEP compliancy Clinical Impression Consistent with Diagnosis Yes Consistent with pelvis fracture Short Term Goals Number of Weeks 2 Decreased Palpation Tenderness Yes: grade 1-2 +TTP to TTP assessment above Decrease Subjective C/O Pain Yes: worse:02/28 Patient to be Ind w/ HEP Yes Fpc Goals Number of Weeks 4-6 Decreased Palpation Tenderness Yes: grade 1 +TTP to TTP assessment above Increase Range of Motion Yes: RLE A/PROM WFL grossly Increase Strength Yes: 4+ to 5/5 RLE hip MMT scores grossly Improve Transfers Yes: Pt. will demonstrate sit< >stand w/ AD safely/correct for fall risk reductio Improve Gait Pattern with Assistive Yes Device Increase Ability to Walk Yes: Pt. will be able to ambulate >10' w/ AD for improved community amb. Increase Ability to Stand Yes: Pt. will be able to stand >10' w/ AD for improved community amb. Improve Ability to Climb Stairs Yes: Pt. will be able to negotiate step into/out of den w/ AD w/o difficulty Improve LEFI Score Yes Decrease Subjective C/O Pain Yes: worse:-12/01 Improve Self Care/Self Management Yes: Pt. denies fall Patient to be Ind w/ Advanced HEP Yes Outpatient Therapy Plan of Care Treatment Plan May Include Therapeutic Exercise Including Home Yes Exercise Program Manual Therapy Techniques Yes Neuromuscular Re-education Yes Therapeutic Activities to Return to Yes Previous Functional/Work Level Gait Training Yes ADL/Self Care Education Yes Thermal Modalities Yes Electrical Stimulation Yes Ultrasound/Phonophoresis Yes Iontophoresis Yes Vasopneumatic Compression Pump Yes Massage Yes Eval/Re-Eval Yes Frequency Times per week 2 Duration Number of Weeks 4-6 Addendums This patient is a candidate for social No or vocational rehab? Patient/Guardian verbally acknowledges Yes understanding of treatment program and consents to further treatment? Patient/Guardian verbally acknowledges Yes understanding of diagnosis, prognosis and goals for treatment? Eval Complexity PT Charges 79453 - Low Complexity Shoulder/Elbow Eval Shoulder Objective Measurements Elbow Objective Measurements PHYSICIAN CERTIFICATION: I certify the specified therapy services for Andry Culp are required, authorized, and reviewed every 30 days.
== END 2024-10-07 14:26 | disposition home or self-care (01) ==
LOC: PT 11:00
PROVIDERS: Visit Provider Family Medicine
DX: M25.551 Pain in right hip (principal); S32.9XXA Fracture of unspecified parts of lumbosacral spine and pelvis, initial encounter for closed fracture
CPT/HCPCS: 97110; 97112; 97163; 97530

== ENCOUNTER 2024-12-22 08:31 | Outpatient (CLI) | payer MEDICARE, OTHER, SELFPAY ==
[2024-12-22 09:39] LABS: Anion Gap 10.7 mEq/L (5-15); Blood Urea Nitrogen 14 mg/dl (7-17); Calcium 9.6 mg/dl (8.4-10.2); Carbon Dioxide 29 mmol/L (22.0-30.0); Chloride 90 mmol/L (98-107); Estimated Glomerular Filt Rate 54 ml/min (>60); GFR (African American) 65 ML/MIN (>60); Glucose 82 mg/dl (74-100); Potassium 3.7 mmoL/L (3.5-5.1); Sodium 126 mmol/L (136-145)
== END 2024-12-22 23:59 | disposition home or self-care (01) ==
LOC: LAB 08:33
PROVIDERS: PCP Family Medicine; Visit Provider Internal Medicine Interventional Cardiology
DX: I25.119 Atherosclerotic heart disease of native coronary artery with unspecified angina pectoris (principal)
CPT/HCPCS: 36415; 80048

== ENCOUNTER 2025-01-19 11:00 | Outpatient (RCR) | payer MEDICARE, OTHER, SELFPAY ==
--- NOTE | 2025-01-06 14:46 | HMH.PTOPEV ---
PT Outpatient Evaluation Rehab PT Outpatient Evaluation Start: 01/06/25 12:55 Freq: Status: Active Protocol: Document 01/06/25 12:56 PDESEROUX (Rec: 01/06/25 14:45 PDESEROUX [id number]) E-signed By Edward Garcia, PT Outpatient Therapy Subjective History Subjective History Pt. is a 79 year old female who presents to [facility] Outpatient Physical Therapy Services in [place] for the outpatient initial evaluation this date( 01/06/25) w/ c/o acute on chronic and constant but variable LUE shldr. P!, catching, weakness, and imbalance of insidious onset that has progressively been getting worse over the last two weeks. Pt. describes LUE shldr. P! as a constant ache at a 6/10 that worsens to a 8/ 10 sharp P! w/ activity. Pt. reports having difficulty fixing her hair, elevating the LUE to don/doff jacket, but also reaching out for a coffee cup secondary to the increase in sharp P!. Pt. reports her P! worsens as the weather gets colder. Pt. denies injury to LUE. Pt. reports having some symptom relief w/ MHP, Tylenol , and laying down. Pt. reports having one day of some symptom relief w/ recent injection. 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 Pt. also c/o constant and intermittent imbalance w/ gait. Pt. reports, I fell like I'm going to fall when I stand.' Pt. reports having 1 fall over the last 2 months secondary to the tripping over my walker. Current medications include Tramadol PRN, Motrin, Carvedilol, Tylenol, and Plaquenil. PMH includes BLE hip osteoarthritis, polymyalgia rheumatica, mild myocardial infarction less than 10%, thyroidectomy, cervical radiculopathy, pelvic fractures x 3, and cataract sx . New diagnosis of cancer in past 12 No months? Chief Complaint Pain,Stiff,Catches/Locks,Gives out/Unstable,Weakness Symptom Type Ache,Sharp,Dull,Stabbing, Shooting Symptoms Relieved By Rest/Positioning,Heat,Brace/ Support,Prescription Meds Symptoms Aggravated By Standing,Physical Activity, Twisting,Walking,Lifting Prior Functional Limitations None Current Functional Limitations Reaching,Lifting,Housework, Dressing,Standing,Recreation Activity,Walking,Balance, Bending/Stooping Symptom Description Constant but Variable,Activity Dependent Level of pain today (0-10) 3 Pain scale - at its best (0-10) 2 Pain scale - at its worst (0-10) 8 Shoulder/Elbow Eval Shoulder Objective Measurements Palpation Tenderness tenderness shoulder exam standard left tenderness over the bicipital tendon left shoulder exam standard tenderness over the SA bursa shoulder left exam standard Shoulder Palpation Findings Tenderness Shoulder Palpation Overall Comment grade 4 +TTP Posture Shoulder Posture Sitting Position (L) Rounded,(L) Forward,(L) Elevated Shoulder Posture Standing Position (L) Rounded,(L) Forward,(L) Elevated Scapula Posture Sitting Position (L) Protracted Scapular Posture Standing Position (L) Protracted Flexibilty Deficits Latissmus Dorsi Muscle Length (L) Severe Tightness Pectoralis Minor Muscle Length (L) Severe Tightness Pectoralis Major Muscle Length (L) Severe Tightness Shoulder External Rotators Muscle Length (L) Severe Tightness Shoulder Internal Rotators Muscle Length (L) Severe Tightness Supraspinatus Muscle Length (L) Severe Tightness Teres Major Muscle Length (L) Severe Tightness Upper Trapezius Muscle Length (L) Severe Tightness Levaetor Scapulae Muscle Length (L) Severe Tightness Shoulder ROM Left Shoulder ROM Limitations Soft Tissue Tightness,Bony Restriction,Muscle Weakness, Pain Shoulder Abduction Active Range of 46 Motion (degrees) Shoulder Abduction Passive Range of 61 Motion (degrees) Shoulder Flexion Active Range of Motion 56 (degrees) Query Text: Shoulder Flexion Passive Range of Motion 98 (degrees) Shoulder External Rotation Active Range 21 of Motion (degrees) Shoulder External Rotation Passive Range 44 of Motion (degrees) Shoulder Internal Rotation Active Range 23 of Motion (degrees) Shoulder Internal Rotation Passive Range 59 of Motion (degrees) Shoulder Extension Active Range of 54 Motion (degrees) Shoulder Extension Passive Range of 55 Motion (degrees) pain with active ROM shoulder exam left standard pain with passive ROM shoulder exam left standard decreased ROM shoulder exam standard left Shoulder MMT Shoulder Abduction Strength Grade 3 Fair Shoulder Extension Strength Grade 3+ Fair+ Shoulder Flexion Strength Grade 3 Fair Shoulder External Rotation Strength 3 Fair Grade Shoulder Internal Rotation Strength 3+ Fair+ Grade Shoulder Strength Patient Testing Sitting Position Shoulder Muscle Tone Shoulder Flexor Muscle Tone Description Severe Hypertonicity Shoulder Extensors Muscle Tone Severe Hypertonicity Description Shoulder Lateral Rotator Muscle Tone Severe Hypertonicity Description Shoulder Special Tests impingement sign present shoulder exam left standard Shoulder Drop Arm Test Positive Left Shoulder Empty Can (Supraspinatus) Test Positive Left Shoulder Reilly-Augustus Impingement Positive Left Test Elbow Objective Measurements Accessory Movements Left Shoulder Girdle Accessory Movements that Glenohumeral Ant Mcnabb, Elicit Symptoms Glenohumeral Post Mcnabb Balance Eval Subjective Hx of Complaint Comment imbalance and falls Chief Complaint vertigo Yes Did you feel dizzy, unsteady or faint? Yes Activity at onset ambulation, transfers, standing tasks outside RAPHAEL Prior Functional Limitations Prior Functional [place] Level IND. w/ AD Current Functional Limitations Comment standing at sink brushing teeth and fixing hair, ambulation, standing Hx of Falls Hx Falls Yes: x1 over last two months Gait/Posture Asssessment Assistive Devices Rolling / Wheeled Walker Outpatient Therapy Assessment Impairments Problems/Impairmments Palpation Tenderness,Impaired Range of Motion,Impaired Strength,Impaired Endurance, Impaired Transfers,Impaired Walking,Impaired Standing, Impaired Lifting,Impaired Dressing,Impaired Shower/ Bathing,Impaired Household Care,Impaired Bending,Impaired Work Activities,Impaired Tinnetti Score,Impaired TUG Time,Subjective C/O Pain, Impaired Self Care/Self Management Prognosis Rehab Potential Good Comment w/ HEP compliancy Clinical Impression Consistent with Diagnosis Yes Consistent with rheumatoid arthritis Additional details: generalized muscle weakness and imbalance Short Term Goals Number of Weeks 2 Decreased Palpation Tenderness Yes: grade 1-2 +TTP Decrease Subjective C/O Pain Yes: worse:5/10 Patient to be Ind w/ HEP Yes Mold Presser Goals Number of Weeks 4-6 Decreased Palpation Tenderness Yes: grade 1 +TTP Increase Range of Motion Yes: LUE shldr. AROM 50% norms grossly, WFL PROM grossly Increase Strength Yes: 4+/5 LUE shldr. MMT scores grossly Improve Transfers Yes: Pt. will demonstrate sit< >stand w/ rollator w/o difficulty IND safe Increase Ability to Walk Yes: 5' w/ rollator IND. and safely for improved household and community amb. Increase Ability to Stand Yes: 2' w/ rollator IND. and safely to address bathroom sink needs Restore Ability to Lift Objects to Yes: Pt. will be able to fix Shoulder Level hair w/ LUE w/o difficulty Improve Ability to Dress Self Yes Improve Ability to Shower/Bathe Self Yes Improve Balance Yes Increase Tinnetti Score Yes Improve Quick Dash Score Yes Decrease TUG Time Yes Decrease Subjective C/O Pain Yes: worse:2-3/10 Improve Self Care/Self Management Yes: Pt. denies falls Patient to be Ind w/ Advanced HEP Yes Outpatient Therapy Plan of Care Treatment Plan May Include Therapeutic Exercise Including Home Yes Exercise Program Manual Therapy Techniques Yes Neuromuscular Re-education Yes Therapeutic Activities to Return to Yes Previous Functional/Work Level Gait Training Yes ADL/Self Care Education Yes Thermal Modalities Yes Electrical Stimulation Yes Ultrasound/Phonophoresis Yes Iontophoresis Yes Vasopneumatic Compression Pump Yes Massage Yes Eval/Re-Eval Yes Frequency Times per week 2 Duration Number of Weeks 4-6 Addendums This patient is a candidate for social No or vocational rehab? Patient/Guardian verbally acknowledges Yes understanding of treatment program and consents to further treatment? Patient/Guardian verbally acknowledges Yes understanding of diagnosis, prognosis and goals for treatment? Eval Complexity PT Charges 21033 - Moderate Complexity PHYSICIAN CERTIFICATION: I certify the specified therapy services for Andry Culp are required, authorized, and reviewed every 30 days.
== END 2025-01-19 23:59 | disposition home or self-care (01) ==
LOC: PT 11:00
PROVIDERS: PCP Family Medicine; Visit Provider Family Medicine
DX: M06.9 Rheumatoid arthritis, unspecified (principal)
CPT/HCPCS: 97110; 97112; 97140; 97163; 97530

== ENCOUNTER 2025-02-16 14:00 | Outpatient (RCR) | payer MEDICARE, OTHER, SELFPAY | END 2025-02-16 23:59 | disposition home or self-care (01) | LOC: PT 14:00 | PROVIDERS: PCP Family Medicine; Visit Provider Family Medicine | DX: M06.9 Rheumatoid arthritis, unspecified (principal) | CPT/HCPCS: 97110; 97112; 97140; 97530 ==

== ENCOUNTER 2025-03-06 10:00 | Outpatient (RCR) | payer MEDICARE, OTHER, SELFPAY | END 2025-03-06 23:59 | disposition home or self-care (01) | LOC: PT 10:00 | PROVIDERS: PCP Family Medicine; Visit Provider Family Medicine | DX: M06.9 Rheumatoid arthritis, unspecified (principal) | CPT/HCPCS: 97110; 97112; 97530 ==

== ENCOUNTER 2025-03-11 12:44 | Emergency (ER) | payer MEDICARE, OTHER, SELFPAY ==
--- NOTE | 2025-03-11 13:11 | [facility]H.EDGENADL ---
Discharge Plan Disposition Patient Disposition: Home, Self-Care Condition: Good Prescriptions Prescriptions: New lidocaine 5 % adhesive patch,medicated 1 patch topical DAILY Qty: 30 0RF Rx Instructions: leave on most painful area for up to 12 hrs No Action hydroxychloroquine 200 mg tablet 200 mg PO DAILY simvastatin 20 MG tablet 20 mg PO HS levothyroxine 112 MCG tablet 112 mcg PO DAILYDM prednisone 5 mg tablet 5 mg PO DAILY cetirizine 10 mg Capsule 10 mg PO DAILY potassium chloride 10 mEq capsule, extended release 10 meq PO DAILY Qty: 30 0RF melatonin 3 mg Tablet 3 mg PO HSP aspirin 81 mg Tablet,Delayed Release (Dr/Ec) 81 mg PO DAILY acetaminophen 500 mg Tablet 500 mg PO Q6HP PRN (Reason: Mild Pain (Scale Score 1-4)) benzonatate 100 mg Capsule 100 mg PO TIDP PRN (Reason: Cough) hydroxyzine pamoate 25 mg Capsule 25 mg PO Q6HP PRN (Reason: Anxiety) tramadol 50 mg Tablet 50 mg PO Q6HP PRN (Reason: Moderate Pain (Scale Score 5-6)) carvedilol 3.125 mg Tablet 3.125 mg PO BIDWMEAL cyclobenzaprine 5 mg Tablet 5 mg PO TID promethazine 25 mg Tablet 25 mg PO Q6HP PRN (Reason: Nausea And Vomiting) tamsulosin 0.4 mg Capsule 0.4 mg PO DAILY 30 Days Qty: 30 0RF sennosides-docusate sodium [Senna Plus] 8.6-50 mg tablet 2 tab-cap PO BIDP PRN (Reason: Constipation) polyethylene glycol 3350 [Miralax] 17 gram/dose powder 17 g PO DAILY Qty: 510 0RF amoxicillin 500 mg capsule 500 mg PO BID 5 Days Qty: 10 0RF Referrals Follow up/Referrals: Wyatt Torres MD [Primary Care Provider] - See instructions Activity Restrictions/Add. Instructions Additional Instructions/Restrictions: As we discussed I recommend taking Tylenol alternating every 4 hours for Motrin for pain and swelling. I have also sent in the prescription lidocaine patch that you placed over your broken ribs. I have given you an incentive spirometer to use 3-4 times a day 5 to 10 minutes at a time. If you develop any persistent new or worsening signs or symptoms follow-up with your PCP return to ER as needed. Clinical Impressions Clinical Impression: Multiple fractures of ribs of right side Qualifiers: Encounter type: initial encounter Fracture type: closed Qualified Code(s): S22.41XA - Multiple fractures of ribs, right side, initial encounter for closed fracture Instructions Patient Instructions: DI for Rib Fracture Print Language Print Language: Lao Discharge ED Provider: Xavier Gibson General Adult HPI <EDWAR Moore - Last Filed: 03/11/25 14:29> General Chief complaint: Fall Stated complaint: AO 03/11 09:00 Fall back pain pelvic pain Time Seen by Provider: 03/11/25 13:11 History of Present Illness HPI narrative: Patient presents for evaluation of right thoracic back pain. Patient was standing at the sink and felt weak like she was going to fall and purposely sat down on the ground. When she did so she struck her right posterior ribs against the side of tub no pain. She did not strike her head she did not lose consciousness she ultimately was able to get up. This happened around 9 AM with morning. She denies any difficulty breathing shortness of breath but states that it hurts to take a deep breath . She denies any headache fever chills hemoptysis hematochezia melena nausea vomit diarrhea. Related Data Home Medications ?Medication ?Instructions ?Recorded ?Confirmed levothyroxine 112 mcg tablet 112 mcg PO DAILYDM 04/24/18 12/04/24 simvastatin 20 mg tablet 20 mg PO HS 04/24/18 12/04/24 hydroxychloroquine 200 mg tablet 200 mg PO DAILY 05/11/22 12/04/24 cetirizine 10 mg capsule 10 mg PO DAILY 07/01/22 12/04/24 prednisone 5 mg tablet 5 mg PO DAILY 07/01/22 12/04/24 acetaminophen 500 mg tablet 500 mg PO Q6HP PRN Mild Pain 07/15/24 12/04/24 (Scale Score 1-4) aspirin 81 mg tablet,delayed 81 mg PO DAILY 07/15/24 12/04/24 release benzonatate 100 mg capsule 100 mg PO TIDP PRN Cough 07/15/24 12/04/24 carvedilol 3.125 mg tablet 3.125 mg PO BIDWMEAL 07/15/24 12/04/24 cyclobenzaprine 5 mg tablet 5 mg PO TID 07/15/24 12/04/24 hydroxyzine pamoate 25 mg capsule 25 mg PO Q6HP PRN Anxiety 07/15/24 12/04/24 melatonin 3 mg tablet 3 mg PO HSP Insomnia 07/15/24 12/04/24 promethazine 25 mg tablet 25 mg PO Q6HP PRN Nausea And 07/15/24 12/04/24 Vomiting tramadol 50 mg tablet 50 mg PO Q6HP PRN Moderate Pain 07/15/24 12/04/24 (Scale Score 5-6) sennosides 8.6 mg-docusate sodium 2 tab-cap PO BIDP PRN Constipation 08/08/24 12/04/24 50 mg tablet (Senna Plus) Previous Rx's ?Medication ?Instructions ?Recorded potassium chloride 10 mEq 10 meq PO DAILY #30 caps 06/02/24 capsule,extended release tamsulosin 0.4 mg capsule 0.4 mg PO DAILY 30 days #30 caps 07/16/24 polyethylene glycol 3350 17 17 g PO DAILY #510 grams 08/08/24 gram/dose oral powder (Miralax) amoxicillin 500 mg capsule 500 mg PO BID 5 days #10 caps 08/27/24 lidocaine 5 % topical patch 1 patch topical DAILY #30 ea 03/11/25 Allergies Allergy/AdvReac Type Severity Reaction Status Date / Time Sulfa (Sulfonamide Allergy Unknown Hives Verified 12/04/24 14:16 Antibiotics) (SULFA (SULFONAMIDE ANTIBIOTICS)) codeine Allergy Vomiting Verified 12/04/24 14:16 Penicillins Allergy Hives Verified 12/04/24 14:16 [facility] <EDWAR Moore - Last Filed: 03/11/25 14:29> [facility] Disclaimer: The information contained in this section may have been updated after the patient was seen, as this information can be updated by other users. Medical History Abnormal weight loss Anorexia Hypoglycemia Postobstructive diuresis Acute urinary retention Adult failure to thrive Nausea Chronic hyponatremia Multiple fractures of pelvis with disruption of pelvic ring Hypochloremia Falls Trochanteric bursitis, right hip Skin tear of left upper extremity Contusion of elbow, left Contusion of hip, left Trochanteric bursitis, left hip Closed fracture of greater trochanter of femur With acute decompensation Pain around toenail, right foot Ingrown toenail of right foot Closed nondisplaced fracture of fifth right metatarsal bone MARY (acute kidney injury) Enteritis Hypothyroidism Foot fracture, right Polymyalgia rheumatica syndrome History of back pain History of left heart catheterization Hyperlipidemia Hypertension Cataract COVID-19 Closed fracture of fourth metatarsal of right foot Nondisplaced fracture of fifth right metatarsal bone with routine healing Myocardial infarction 2012 HLD (hyperlipidemia) CAD (coronary artery disease) Rheumatoid arthritis Surgical History H/O cataract removal with insertion of prosthetic lens History of heart artery stent Previous back surgery 2001 H/O thyroidectomy 1999 History of appendectomy 1992 History of hysterectomy 1992 History of tonsillectomy Family History Other Cancer Heart attack Hypertension Social History Smoking Status: Never smoker years smoked: 40 how long ago did patient quit smokin years alcohol intake: never substance use type: denies use current occupational status: retired Travel in the last 8 weeks?: None caregiver/support person: Yes () household members: spouse housing: house marital status: 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 needs: No Have you lived/traveled outside [place] in past 30 days?: No Contact w/someone who lives/traveled outside [place] past 30 days?: No Exposure to someone with infectious disease in past 14 days?: No Do you have a fever (greater than 100.4 F or 38 C)?: No Have you tested positive for COVID-19?: No Exposed to someone with COVID-19 in past 14 days?: No Do you have a sore throat?: No Do you have a cough?: No Do you have any weakness?: No Do you have any diarrhea?: No Are you experiencing any unusual bleeding?: No Do you have any muscle aches/pain?: No Do you have any abdominal pain?: No Are you experiencing loss of taste or smell?: No Other Medical History Have you received the Flu Vaccine for this season: No Have you received the Pneumonia Vaccine: Yes <EDWAR Moore - Last Filed: 03/11/25 14:29> ROS Obtained: Yes Systems reviewed as appropriate & no additional complaints except as documented Physical Exam <EDWAR Moore - Last Filed: 03/11/25 14:29> General General appearance: alert and in no apparent distress Respiratory Respiratory exam: Present normal lung sounds bilaterally Cardiovascular Cardiovascular exam: Present regular rate Neurological Exam Neurological exam: Present alert and oriented X3 Medical Decision Making <EDWAR Moore - Last Filed: 03/11/25 14:29> Medical Records Medical records reviewed: Yes I reviewed the patient's medical records. Screening: Per USPSTF and CDC recommendations, given the prevalence of disease in our region, it is our hospital?s policy to screen for HIV and viral Hepatitis for all patients aged 18 and over and those with ongoing risk factors. Michael Inquiry Pt receiving controlled substance: No Vital Signs: 03/11/25 13:16 03/11/25 14:00 03/11/25 14:30 Temperature 98.7 F Temperature Source Oral Pulse Rate 62 60 Pulse Rate [Right] 70 Respiratory Rate 18 Blood Pressure 116/68 120/77 Blood Pressure [Right Arm] 111/62 Blood Pressure Mean [Right Arm] 78 Blood Pressure Source Blood Pressure Source [Right Arm] Automatic Cuff Blood Pressure Position Blood Pressure Position [Right Arm] Sitting 02 Sat by Pulse Oximetry 95 96 97 Oxygen Delivery Method Room Air Room Air Room Air 03/11/25 14:37 Temperature 97.9 F Temperature Source Oral Pulse Rate 64 Pulse Rate [Right] Respiratory Rate 18 Blood Pressure 120/77 Blood Pressure [Right Arm] Blood Pressure Mean [Right Arm] Blood Pressure Source Automatic Cuff Blood Pressure Source [Right Arm] Blood Pressure Position Sitting Blood Pressure Position [Right Arm] 02 Sat by Pulse Oximetry Oxygen Delivery Method Room Air Lab Data Lab results reviewed: Yes I reviewed the patient's lab results. Orders (Tests/Meds): ED MEDICATIONS Discontinued Medications Generic Name Dose Route Start Last Admin Trade Name Freq PRN Reason Stop Dose Admin Ibuprofen 800 mg 03/11/25 13:28 03/11/25 13:53 Ibuprofen 400 Mg Tablet PO 03/11/25 13:29 800 mg ONCE ONE Administration Lidocaine 1 each 03/11/25 13:28 03/11/25 13:52 Lidocaine 5% Transdermal Patch TD 03/11/25 13:29 1 each ONCE ONE Administration ORDERS Category Date Time Status CT chest wo con Stat Cat Scan 03/11/25 13:28 Completed Medical Decision Narrative: In summary patient is a 79-year-old female who presents to the emergency department for evaluation of right thoracic rib pain after sitting down against the side of the tub. Patient is hemodynamically stable with a blood pressure 111/62 pulse 70 normal sinus rhythm on bedside monitor breathing 18 times a minute satting at 95% on room air upon arrival, afebrile at 98.7. Physical exam is remarkable for right posterior rib pain/back pain no palpable bony deformity no obvious contusion or ecchymosis. Patient has no midline tenderness of her dorsal spine full range of motion of her C-spine without pain is full range of motion of all 4 extremities without pain and is neurovascular intact distally.. Differential diagnosis includes contusion versus rib fracture versus other occult fracture. Initial workup will be conducted with CT scan of the chest without contrast. Initial interventions include ibuprofen and Lidoderm and patient's already had Tylenol prior to arrival. Initial workup reviewed by me and patient has nondisplaced rib fractures of the right 1011 and 12 posterior ribs. Upon repeat evaluation patient reported improvement after initial intervention. Instructed and observe the patient on the use of incentive spirometry. Patient is able to pull more than 2000 appropriately. Given this patient is appropriate discharge with a prescription sent for Lidoderm patch and strict return precautions. <Xavier Gibson MD - Last Filed: 03/11/25 15:10> Vital Signs: 03/11/25 13:16 03/11/25 14:00 03/11/25 14:30 Temperature 98.7 F Temperature Source Oral Pulse Rate 62 60 Pulse Rate [Right] 70 Respiratory Rate 18 Blood Pressure 116/68 120/77 Blood Pressure [Right Arm] 111/62 Blood Pressure Mean [Right Arm] 78 Blood Pressure Source Blood Pressure Source [Right Arm] Automatic Cuff Blood Pressure Position Blood Pressure Position [Right Arm] Sitting 02 Sat by Pulse Oximetry 95 96 97 Oxygen Delivery Method Room Air Room Air Room Air 03/11/25 14:37 Temperature 97.9 F Temperature Source Oral Pulse Rate 64 Pulse Rate [Right] Respiratory Rate 18 Blood Pressure 120/77 Blood Pressure [Right Arm] Blood Pressure Mean [Right Arm] Blood Pressure Source Automatic Cuff Blood Pressure Source [Right Arm] Blood Pressure Position Sitting Blood Pressure Position [Right Arm] 02 Sat by Pulse Oximetry Oxygen Delivery Method Room Air Orders (Tests/Meds): ED MEDICATIONS Discontinued Medications Generic Name Dose Route Start Last Admin Trade Name Bam PRN Reason Stop Dose Admin Ibuprofen 800 mg 03/11/25 13:28 03/11/25 13:53 Ibuprofen 400 Mg Tablet PO 03/11/25 13:29 800 mg ONCE ONE Administration Lidocaine 1 each 03/11/25 13:28 03/11/25 13:52 Lidocaine 5% Transdermal Patch TD 03/11/25 13:29 1 each ONCE ONE Administration ORDERS Category Date Time Status CT chest wo con Stat Cat Scan 03/11/25 13:28 Completed Medical Decision Narrative: In summary patient is a 79-year-old female who presents to the emergency department for evaluation of right thoracic rib pain after sitting down against the side of the tub. Patient is hemodynamically stable with a blood pressure 111/62 pulse 70 normal sinus rhythm on bedside monitor breathing 18 times a minute satting at 95% on room air upon arrival, afebrile at 98.7. Physical exam is remarkable for right posterior rib pain/back pain no palpable bony deformity no obvious contusion or ecchymosis. Patient has no midline tenderness of her dorsal spine full range of motion of her C-spine without pain is full range of motion of all 4 extremities without pain and is neurovascular intact distally.. Differential diagnosis includes contusion versus rib fracture versus other occult fracture. Initial workup will be conducted with CT scan of the chest without contrast. Initial interventions include ibuprofen and Lidoderm and patient's already had Tylenol prior to arrival. Initial workup reviewed by me and patient has nondisplaced rib fractures of the right 1011 and 12 posterior ribs. Upon repeat evaluation patient reported improvement after initial intervention. Instructed and observe the patient on the use of incentive spirometry. Patient is able to pull more than 2000 appropriately. Given this patient is appropriate discharge with a prescription sent for Lidoderm patch and strict return precautions. I was consulted by the OWEN, and we discussed the complexity of the problems being addressed. I approved the treatment and management plan for this patient's care in the Emergency Department, thus performing a substantive portion of the medical decision making. Xavier Gibson MD Critical Care <EDWAR Moore - Last Filed: 03/11/25 14:29> Critical Care Time Critical Care Time: No
[2025-03-11 13:16] VITALS: BP 111/62; PULSE 70; RESP 18; TEMP 37.1; O2SAT 95; BMI 23.8
--- OUTSIDE RECORDS SUMMARY | 2025-03-11 13:20 | XMS_ITS | Data Portability ---
Author Organization [facility] [place] [facility] Address [address] [facility] [address] [place] [address] Care Team Providers Care Chemistry Teacher Name Role Phone EMA CAMPOS Primary Care Provider [phone] ROSE BASS Administrative Aide Assessment Encounter Date Assessment Date Assessment LastModified by Organization Details LastModified Time 05/07/2024 05/07/2024 78-year-old female with polymyalgia rheumatica and inflammatory arthritis. Further has mechanical pains. My impression and plan: [email or web address] Not available 05/07/2024 16:44:03 10/28/2024 10/28/2024 78-year-old female with polymyalgia rheumatica and inflammatory arthritis. Further has mechanical pains. My impression and plan: Not available 10/28/2024 13:16:45 01/27/2025 01/27/2025 78-year-old female with polymyalgia rheumatica and inflammatory arthritis. Further has mechanical pains. My impression and plan: Not available 01/27/2025 10:24:04 Plan of Treatment Reminders Order Date Submit Date Provider Last Modified By Organization Details Last Modified Time Details Appointments RHEUM RECHECK 2024 11:15A M ROSE BASS MD Not available Not available Not available Lab rf (rheumato id factor), serum 2023 07 024 [facility], [address] [place] [address], [id number], 05/07/2024 11:20:43 ccp (cyclic citrullin ated peptide) iga+igg, serum 2023 024 [facility], [address] [place] [address], [id number], 05/09/2024 16:52:40 ESR (erythroc yte sedimenta tion rate), blood 2023 024 [facility], [address] [place] [address], [id number], 05/07/2024 11:12:24 C reactive protein, QN, serum or plasma 2023 024 [facility], [address] [place] [address], [id number], 05/07/2024 11:20:45 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, qual, blood 2023 024 [facility], [address] [place] [address], [id number], 05/10/2024 02:43:42 hepatitis C Ab, serum 2023 024 [facility], [address] [place] [address], [id number], 05/07/2024 11:39:06 ESR (erythroc yte sedimenta tion rate), blood 2023 024 [facility], [address] [place] [address], [id number], 10/25/2023 11:13:45 C reactive protein, QN, serum or plasma 2023 024 [facility], [address] [place] [address], [id number], 10/25/2023 11:26:25 Referral None recorded. Procedures None recorded. Surgeries None recorded. Imaging None recorded. Medication Orders prednison e 5 mg tablet 2024 025 [facility], [address] [place] [address], [id number], 01/27/2025 10:42:41 Cymbalta 30 mg capsule,d elayed release 2023 024 [facility], [address] [place] [address], [id number], 01/28/2024 10:15:00 Depo-Medr ol 80 mg/mL suspensio n for injection [address] [facility], [address] [place] [address], [id number], 10/25/2023 10:45:28 Patient TargetsNo targets recorded. Patient InstructionsNo instructions recorded. Reason for Referral None Reported. Results Created Date Observation Date Name Description Value Unit Range Abnormal Flag Note LastModifiedBy Organization Detail LastModifiedTime 10/25/1910/25/2023 ESR, AUTOM ATED ESR, automated 7 mm 0-29 normal Not Available [facility] [address] [place] [address], [phone], 10/25/2023 11:13:45 10/25/19 24 10/25/2023 C REACT KASANDRA PROTE IN C reactive protein 0.17 mg/dL 0.00-0 .49 normal Not Available [facility] [address] [place] [address], [id number], 10/25/2023 11:26:25 05/07/20 24 05/07/2024 ESR, AUTOM ATED ESR, automated 12 mm 0-29 normal Not Available [facility] [address] [place] [address], [id number], 05/07/2024 11:12:24 05/07/20 24 05/07/2024 RF SCREE N, QUANT . rf screen, quant. <10.0 [IU]/ mL 0.0-13 .9 normal Not Available [facility] [address] [place] [address], [id number], 05/07/2024 11:20:43 05/07/20 24 05/07/2024 C REACT KASANDRA PROTE IN C reactive protein 0.17 mg/dL 0.00-0 .49 normal Not Available [facility] [address] [place] [address], [phone], 05/07/2024 11:20:45 05/07/20 24 05/07/2024 HEPAT ITIS C AB SCR, REFLE X HCVQT hcab scr, reflex viral RNA qt NONREA CTIVE nonrea ctive normal Antib odies to HCV were not detec beth; does not exclu de the possi bilit y of expos ure to HCV. Not Available [facility] [address] [place] [address], [id number], 05/07/2024 11:39:06 05/07/20 24 05/09/2024 ANTI- CCP anti-ccp <16 units normal Refer ence Range Negat kasandra: <20 Weak Posit kasandra: 20-39 Moder ate Posit kasandra: 40-59 Stron g Posit kasandra: >59 Not Available [facility] [address] [place] [address], [id number], 05/09/2024 16:52:40 05/07/20 24 05/10/2024 QUANT IFERO N TB GOLD qtb gold NEGATI VE negati ve normal Negat kasandra test resul t. M. tuber culos is compl ex infec tion unlik erin. Not Available [facility] [address] [place] [address], [id number], 05/15/2024 15:49:02 05/07/20 24 05/10/2024 QUANT IFERO N TB GOLD nil 0.01 IU/mL normal Not Available [facility] [address] [place] [address], [address], 05/15/2024 15:49:02 05/07/20 24 05/10/2024 QUANT IFERO N TB GOLD mitogen nil >10.00 IU/mL normal Not Available [facility] [address] [place] [address], [address], 05/15/2024 15:49:02 05/07/20 24 05/10/2024 QUANT IFERO N TB GOLD TB1 nil 0.00 IU/mL normal Not Available [facility] [address] [place], [address], 05/15/2024 15:49:02 05/07/20 24 05/10/2024 QUANT IFERO N TB GOLD TB2 nil 0.00 IU/mL normal The Nil tube value refle cts the backg round inter feron gamma immun e respo nse of the patie nt's blood sampl e. This value has been subtr acted from the patie nt's displ ayed TB and Mitog en resul ts. Lower than expec beth resul ts with the Mitog en tube preve nt false -nega tive Quant ifero n readi ngs by detec ting a patie nt with a poten tial immun e suppr essiv e condi tion and/o r subop timal pre-a nalyt ical speci men handl ing. The TB1 Antig en tube is coate d with the M. tuber culos is-sp ecifi c antig ens desig ananth to elici t respo nses from TB antig en prime d CD4+ helpe r T-lym phocy beverly. The TB2 Antig en tube is coate d with the M. tuber culos is-sp ecifi c antig ens desig ananth to elici t respo nses from TB antig en prime d CD4+ helpe r and CD8+ cytot oxic T-lym phocy beverly. For addit ional infor dionne miles e refer to https ://ed bonillaati on.qu blayne [employer]. com/f aq/FA Q204 (This link is being provi ded for infor uday cormier/ educa belkis l purpo ses only. ) Not Available [facility] [address] [place], [address], 05/15/2024 15:49:02 Result Notes None recorded. Problems Name Problem SNOMED Code Status Onset Date Resolution Date Notes Provider Name and Address Organization Details Recorded Time Hyperuricemia 55324309 Active 2017 ARLENE MEI, [employer] [address] [place], [address], [facility] 8 15:44:58 Problem Notes None recorded. Procedures Surgical History Date Name Laterality Status Provider Name and Address Organization Details Recorded Time Remove tonsils and adenoids completed [facility] 12/19/2018 09:47:28 Removal of thyroid completed [facility] 12/19/2018 09:47:47 Imaging Results None recorded. Procedure Notes None recorded. Medical Equipment None Reported. Allergies Allergen ID Allergen Name Allergen Category Reaction Reaction Severity Criticality Documentation Date Start Date Code Code System Note Provider Name and Address Organization Details Recorded Time 720984 Substance with sulfonami de structure and antibacte rial mechanism of action (substanc e) medicatio n Not available Not available Not available 09/15/20162014 46788 8003 SNOMED Comme nt: Creat ed By: Rayna Gonzalez; Creat ed Date: 2014 10:04 :26 AM; Not Available [facility] 6 09:13:41 254526 codeine medicatio n Not available Not available Not available 09/15/20162014 2670 RxNorm Comme nt: Creat ed By: Rayna Gonzalez; Creat ed Date: 2014 10:03 :51 AM; Not Available [facility] 6 09:37:20 Medications Name Sig Start Date Stop Date Status Note LastModified by Organization Details LastModified Time carvedilo l 12.5 mg tablet Daily active Frequenc y: daily;Me dication Descript ion: carvedil ol; Dosage:1 ; Route:or al; refills: 0 Not Available Not Available Not Available prednison e 5 mg tablet Take 2 tablets by mouth once daily 2024 active Not Available Not Available Not Avai lable Depo-Medr ol 80 mg/mL suspensio n for injection Take 1.5 mL by injectio n route. 2023 active Not Available Not Available Not Avai lable simvastat in 20 mg tablet Take 1 tablet every day by oral route. active Not Available Not Available No t Available aspirin 81 mg tablet Daily active Duration : 30 days;Dionisio quency: daily;Me dication Descript ion: aspirin; Dosage:1 ; Route:or al; refills: 0; Quantity :30 tablet, dispersi ble Not Available Not Available Not Available gabapenti n 100 mg capsule 1 p.o. nightly x 1 week1 p.o. every 12 hours x 1 week then maintain 1 p.o. every 8 hours. 01/27 completed Not Available Not Available Not Available hydroxych loroquine 200 mg tablet Take 1 tablet by mouth once daily 2024 active Not Available Not Available Not Avai lable losartan 100 mg tablet 10/28 completed Medicati on Descript ion: losartan ; Route:or al; refills: 0 Not Available Not Available Not Available Cymbalta 30 mg capsule,d elayed release Take 1 capsule every day by oral route for 30 days. 01/27 completed Not Available Not Available Not Available Synthroid Daily active Frequenc y: daily;Me dication Descript ion: levothyr oxine; Dosage:1 ; refills: 0; Quantity :12444 mcg Not Available Not Available Not Available potassium active Not Available Not Rafaela ilable Not Available Zetia 5 mg active Not Available Not Availa ble Not Available Zyrtec 10 mg capsule Take by oral route. active Not Available Not Available No t Available Brilinta 90 mg tablet Two times a day 10/25 completed Frequenc y: bid;Medi cation Descript ion: ticagrel or; Dosage:1 ; Route:or al; refills: 0 Not Available Not Available Not Available Vitals Date Recorded Body height Body mass index (BMI) Body weight Respiratory rate Heart rate Oxygen saturation Oxygen saturation in Arterial blood by Pulse oximetry Systolic blood pressure Diastolic blood pressure Provider Name and Address Organization Details Last Updated DateTime 4 167.64 cm 24.7 kg/m2 39266.6 3 g 16 /min 67 /min 96 % 96 % 152 mm[Hg] 90 mm[Hg] Frieda Mcmahon [facility] 4 10:07:20 Date Recorded Body height Body mass index (BMI) Body weight Respiratory rate Heart rate Oxygen saturation Oxygen saturation in Arterial blood by Pulse oximetry Systolic blood pressure Diastolic blood pressure Provider Name and Address Organization Details Last Updated DateTime 4 167.64 cm 24.7 kg/m2 58191.6 3 g 16 /min 69 /min 96 % 96 % 120 mm[Hg] 80 mm[Hg] [facility] 4 10:42:58 Date Recorded Body height Body mass index (BMI) Body weight Respiratory rate Heart rate Oxygen saturation Oxygen saturation in Arterial blood by Pulse oximetry Systolic blood pressure Diastolic blood pressure Provider Name and Address Organization Details Last Updated DateTime 4 167.64 cm 24.7 kg/m2 14314.6 3 g 16 /min 86 /min 97 % 97 % 122 mm[Hg] 80 mm[Hg] [facility] 4 09:59:55 Date Recorded Body height Body mass index (BMI) Body weight Provider Name and Address Organization Details Last Updated DateTime 10/28/2024 167.64 cm 24.7 kg/m2 94635.63 g [facility] 10/28/2024 13:15:40 Date Recorded Body height Respiratory rate Body mass index (BMI) Body weight Oxygen saturation Oxygen saturation in Arterial blood by Pulse oximetry Heart rate Systolic blood pressure Diastolic blood pressure Provider Name and Address Organization Details Last Updated DateTime 5 167.64 cm 16 /min 24.7 kg/m2 17968.6 3 g 97 % 97 % 68 /min 126 mm[Hg] 82 mm[Hg] [facility] 5 10:34:11 Social History Question Answer Notes LastModified by Organizat ion Details LastModified Time Tobacco Smoking Status Former Smoker January [facility] 10/26/2017 14:04:04 How Much Tobacco Do You Chew? None Information not available 06/19/2019 What Was The Date Of Your Most Recent Tobacco Screening? 01/27/2025 Information not available 01/27/2025 How Much Tobacco Do You Smoke? 1 PPD Information not available 06/19/2019 How Many Years Have You Smoked Tobacco? 40 Information not available 06/19/2019 Have You Recently Traveled Abroad? No [email or web address] Information not available 10/24/2022 Sex: Unknown Functional Status Question Answer Note LastModified by Organizat ion Details LastModified Time What is your level of alcohol consumption? None [email or web address] Information not available 12/19/2018 Do you or have you ever used smokeless tobacco? Never used smokeless tobacco Information not available 06/19/2019 Do you or have you ever used e-cigarettes or vape? Never used electronic cigarettes Information not available 06/19/2019 Mental Status None recorded. Family History Nothing Reported. Medical History Condition Response Emphysema N COPD N Arthritis N Acid Reflux (GERD) N Rheumatoid Arthritis N Bleeding Disorder N Asthma N Diabetes N Heart Disease Y Hypertension Y Gynecological HistoryNo gynecological history recorded. Obstetrics History GPAL:G 0 P 0 0 0 0 Past Encounters Encounter ID Performer Location Encounter Start Date Encounter Closed Date Diagnosis/Indication Diagnosis SNOMED-CT Code Diagnosis ICD10 Code Diagnosis Note [id number] ARLENE MEI APRN [facility] [address] [place] [address] 10/26/2017 13:52:29 10/26/2017 14:49:45 Pain of multiple joints 08377894 M25.50 71 year old female is here today with complaints of joint pains and episodes where body feels hot .Last seen by Dr. Macdonald in 2014. Recent Labs per PCP :Rfactor-n egativeESR - 30 mm/hruric acid-8.7 mg/dLANA-h omogenous 1:320 Clinically on exam she has no synovitis or effusions. Normal MSK and system exam.I do not see clinical features of an autoimmune disease or inflammato ry joint.I will obtain uric acid level today as I have had patients report body feeling hot with gout.I will also obtain ESR today.She has history of positive OPAL with rising titers, with her non-specif ic symptoms I will complete workup by obtaining lupus panel.rech rakel in 2 weeks, to go over results. Anti-nucle ar factor detected [id number] R76.8 As detailed above OPAL obtained in 2013 was 1:160 homogenous .Recently checked per PCP and was homogenous 1:320.Will obtain lupus panel today. [id number] ARLENE MEI APRN [facility] [address] [place] [address] 11/08/2017 10:21:14 11/12/2017 08:10:02 Hyperuricemia 01206395 E79.0 Hyperurice miaPatient reports episodes of heat in joints and joint pain.Furth er was found to have positive OPAL homogenous 1:320Lupus panel negativeRf actor-nega tive ESR- 22 mm/hr uric acid 5.8 mg/dLWent over lab results in detail with Andry today.Her joint pain and feeling of heat in joints could be explained by gout.Discu ssed gout in detail today with patient. Discussed role of diet in gout. I think she can lower her uric acid through diet alone and will hold off on adding in medication .At this time her OPAL does not seem to be of clinical significan ce as her exam is normal and further testing shows negative lupus subtypes.F ollow up in 3 months, to recheck uric acid level. [id number] [place] [address] [place] [id number] 11/04/2018 10:30:43 11/07/2018 07:59:17 Inflammatory polyarthropathy 997196445 M06.4 very pleasant 72-year-ol d female with recent episodes of worsening joint pains including pain and swelling involving her hands, shoulders along with significan t myalgias as well as arthralgia s. Her clinical examinatio n as well as her recent history is highly suggestive of inflammato ry joint disease with symmetric distributi on favors rheumatoid arthritis and ultimately . further, presence of her myalgias especially in the proximal region also suggest a component of polymyalgi a rheumatica . She has had multiple investigat ions through the ER in the past 6 weeks. I will try to obtain her records before ordering more labs. However at this time I fully agree with the recent trial of hydroxychl oroquine by her family physician at 200 mg twice a day. However I suggested her to obtain a baseline eye examinatio n followed by yearly eye examinatio n. Further I would like her to maintain a low dose prednisone at 5 mg once a day.on account of her left shoulder pain and discomfort , I offered her intra-lina cular corticoste roid injection which she declined. I suggested to return to my office in 6-8 weeks for another evaluation . All of her questions are answered and she was comfortabl e with the plan. [id number] [place] [address] [place] [id number] 12/19/2018 09:01:43 12/20/2018 08:50:39 Polymyalgia rheumatica 73479081 M35.3 clinically looks so much better. Active and passive range of motion. She has palpable pulses without any jaw tenderness or temporal tenderness . I would like her to maintain prednisone at 5 mg once a day. Inflammato ry polyarthropathy 161441825 M06.4 in terms of inflammato ry arthritis, seems to be secondary to PMR process. I doubt rheumatoid as a separate entity. Certainly with the excellent response to the polymyalgi a, her inflammato ry arthritis is also responded very well. I do not see need for her to maintain full dose of hydroxychl oroquine and she can reduce the dose to 200 mg once a day. she can return to my office in 6 months. Her baseline eye examinatio n is stable. [id number] [place] [address] [place] [id number] 06/19/2019 09:47:18 06/24/2019 08:38:26 Polymyalgia rheumatica 53966217 M35.3 chronic disease and under excellent control. In clinical remission. Excellent Range of motion. No physical limitation s noted. I would like her to maintain prednisone at 5 mg once a day. Inflammato ry polyarthropathy 073079483 M06.4 chronic polyarticu lar inflammato ry arthritis associated with PMR remains in clinical remission. I would like her to continue with hydroxychl oroquine at 200 mg once a day. [id number] ROSE BASS MD [facility] [address] [place] [phone] 06/21/2020 07:59:24 06/21/2020 11:07:16 Polymyalgia rheumatica 38133340 M35.3 74-year-ol d female with chronic polymyalgi a rheumatica , recent flares and had to increase prednisone to 20 mg once a day. Further has increased hydroxychl oroquine to 200 mg twice a day. She will reduce prednisone to 10 mg once a day as planned for 7 days followed by 7.5 mg once a day for another 7 days and then maintain at 5 mg once a day. Follow with me in September. Call me for any new onset headaches or vision changes. Inflammato ry polyarthropathy 709067758 M06.4 chronic polyarticu lar inflammato ry arthritis associated with PMR. fairly stable. maintain hydroxychl oroquine 200 mg twice a [id number] ROSE BASS MD [facility] [address] [place] [address] 09/29/2020 10:12:08 09/29/2020 10:38:53 Polymyalgia rheumatica 76363233 M35.3 74-year-ol d female with chronic polymyalgi a rheumatica . Chronic disease. Some joint pains seems to be more mechanical in nature. Tender right glenohumer al joint, tender left first CMC joint. She has not noticed any changes in her joint symptoms with increasing hydroxychl oroquine dose. I suggested her to reduce the dose of hydroxychl oroquine to 200 mg once a day I would like to increase the dose of prednisone to 10 mg daily for the next 4 weeks followed by 7.5 mg daily for 4 weeks and then maintain at 5 mg once a day. Call me for any new onset headaches or vision changes. follow-up in 3 months Inflammato ry polyarthropathy 159058561 M06.4 associated inflammato ry arthritis. Symptomati marvin joint pains as detailed above. Medication s As described above combinatio n of hydroxychl oroquine and prednisone . Follow-up in 3 months. [id number] ROSE BASS MD [facility] [address] [place] [address] 12/29/2020 10:28:14 12/29/2020 11:52:19 Polymyalgia rheumatica 50565679 M35.3 74-year-ol d female with chronic polymyalgi a rheumatica . she is doing quite well. However she tries to take 10 mg prednisone every day although, was suggested to take 5 mg once a day. She does much better when she takes 10 mg everyday and does not want to come below this dose. Suggested her to alternate 10 mg prednisone with 5 mg prednisone every other day. Continue with hydroxychl oroquine at 200 mg twice a day as a steroid sparing medication . Repeat the ESR. Follow with eye examinatio n once a year. Inflammato ry polyarthropathy 218969947 M06.4 Chronic and associated with polymyalgi a rheumatica . Currently clinically stable. Maintain the combinatio n of prednisone as well as hydroxychl oroquine as stated above. [id number] ROSE BASS MD [facility] [address] [place] [address] 04/29/2021 09:27:28 04/29/2021 10:15:19 Inflammatory polyarthropathy 048197945 M06.4 Chronic and associated with polymyalgi a rheumatica . has done well. Isbaelle khan not able to load the prednisone dose and is currently on prednisone 10 mg alternatin g with 5 mg every other day. She also takes hydroxychl oroquine 200 mg twice a day. Must need to follow with eye examinatio n once a year Polymyalgi a rheumatica 18386128 M35.3 75-year-ol d female with chronic polymyalgi a rheumatica . Clinically stable on the current dose of prednisone as detailed above. No stigmata for giant cell arteritis. Repeat the ESR. Follow with eye examinatio n once a year. Long-term drug therapy [id number] Z79.899 Of pain last follow-up on polymyalgi a rheumatica and inflammato ry arthritis. Bone density test needs to be done every 2 years. Maintain calcium and vitamin D on account of risk for osteoporos is on steroids. Also suggested to follow up with a bone density test with her primary care physician [id number] ROSE BASS MD [facility] [address] [place] [address] 11/02/2021 12:56:26 11/02/2021 13:19:32 Inflammatory polyarthropathy 282858387 M06.4 Qphpl64-hc ar-old with polyarthri tis Chronic and stable. The current combinatio n of prednisone and hydroxychl oroquine is very helpful. Refills were given.Foll ow-up in 6 months Polymyalgi a rheumatica 01158672 M35.3 75-year-ol d female with chronic polymyalgi a rheumatica . Clinically stable on the current dose of prednisone 10 mg alternatin g with 5 mg every other day along with hydroxychl oroquine 200 mg twice a day. No stigmata for giant cell arteritis. Repeat the ESR. Follow with eye examinatio n once a year. Long-term drug therapy 617342140 Z79.899 Must follow-up with an eye examinatio n every year. Bone density test every 2 years. Maintain calcium vitamin D. Also suggested to follow up with a bone density test with her primary care physician [id number] ROSE BASS MD [facility] [address] [place] [address] 05/01/2022 08:17:48 05/01/2022 15:37:51 Inflammatory polyarthropathy 826953737 M06.4 76- year-old with polyarthri tis Seronegati ve process. Fairly stable. On maintenanc e prednisone 5 mg alternate with 10 mg every other day and hydroxychl oroquine 200 mg once a day. Tolerating it well. Although has had some flares . She used to Mextra steroids during that time. Examinatio n today is fairly stable without any synovitis with intact active and passive range of motion.Shahrzad acevedoin the current treatment plans Refills were given.Foll ow-up in 6 months Polymyalgi a rheumatica [id number] M35.3 76-year-ol d female with chronic polymyalgi a rheumatica . Clinically stable. No proximal muscle pain or weakness reported.N o stigmata for giant cell arteritis. Last ESR 04/29/2021 9 mm/h Repeat the ESR. Follow with eye examinatio n once a year. Long-term drug therapy [id number] Z79.899 Must follow-up with an eye examinatio n every year. Bone density test every 2 years. Maintain calcium vitamin D. She typically follows the bone density test with her PCP. She will get us a copy. [id number] ROSE BASS MD [facility] [address] [address] 10/24/2022 13:59:01 10/25/2022 14:30:30 Inflammatory polyarthropathy [id number] M06.4 76- year-old with polyarthri tisSeroneg ative rheumatoid arthritis. Clinically symptomati c with tender and swollen joints pressure involving the hands. I suggested her to increase the dose of prednisone to 10 mg daily for the next 10 days after which she can go back to 10 mg alternate with 5 mg every other day. She will maintain the hydroxychl oroquine at 200 mg once a day. She was not able to tolerate the hydroxychl oroquine twice a day. Reassess after 10 days if still symptomati c consider addition of a low-dose methotrexa te. All the side effect profiles of the disease modifying medication s as well as corticoste roid reviewed. Avoid the NSAIDs along with the corticoste roids to avoid GI toxicity as well as renal toxicity. Refills given Polymyalgi a rheumatica [id number] M35.3 76-year-ol d female with chronic polymyalgi a rheumatica .From the PMR point of view looks stable.No proximal muscle pain or weakness reported.N o stigmata for giant cell arteritis. Last ESR 04/29/2021 9 mm/h Repeat ESR today Long-term drug therapy [id number] Z79.899 Must follow-up with an eye examinatio n every year While taking the hydroxychl oroquine. On account of corticoste roid use, osteoporos is, osteonecro sis risk were reviewed. Weight gain diabetes also reviewed. Must follow with a bone density every 2 years [id number] ROSE BASS MD [facility] [address] [place] [address] 04/03/2023 13:22:18 04/05/2023 04:49:45 Inflammatory polyarthropathy [id number] M06.4 77- year-old with polyarthri tisSeroneg ative rheumatoid arthritis. Doing better. Stable exam. Chronic degenerati ve changes. However no active synovitis noted. Continue hydroxychl oroquine 200 mg once a day and prednisone 10 mg alternate with 5 mg every other day.Refill s were given. All the side effect profiles of the disease modifying medication s as well as corticoste roid reviewed. Avoid the NSAIDs along with the corticoste roids to avoid GI toxicity as well as renal toxicity. Follow-up 6 months Polymyalgi a rheumatica [id number] M35.3 77-year-ol d female with chronic polymyalgi a rheumatica .From the PMR point of view looks stable.No proximal muscle pain or weakness reported.N o stigmata for giant cell arteritis. ESR 10/24/2019 2310 mm/h normal. Continue prednisone 10 mg alternate with 5 mg every other day. This seems to be the best option for her as attempts in the past to lower the prednisone resulted in flare. Long-term drug therapy [id number] Z79.899 Must follow-up with an eye examinatio n every year While taking the hydroxychl oroquine. On account of corticoste roid use, osteoporos is, osteonecro sis risk were reviewed. Weight gain diabetes also reviewed. Must follow with a bone density every 2 years [id number] ROSE BASS MD [facility] [address] [place] [address] 10/25/2023 09:56:13 10/26/2023 15:37:58 Inflammatory polyarthropathy [id number] M06.4 77- year-old with polyarthri tisSeroneg ative rheumatoid arthritis. Clinically symptomati c. Pain and stiffness in bilateral hands. Swelling in bilateral hands. Suggested IM Depo-Medro l 120 mg to control the current flare. Maintain the prednisone 10 mg alternatin g with 5 mg every other day and the hydroxychl oroquine once a day. Recheck the inflammato ry markers. If needed increase the hydroxychl oroquine to twice a day after review of the inflammato ry studies. All the side effect profiles of the disease modifying medication s as well as corticoste roid reviewed. Avoid the NSAIDs along with the corticoste roids to avoid GI toxicity as well as renal toxicity. Follow-up 3 months Polymyalgi a rheumatica [id number] M35.3 77-year-ol d female with chronic polymyalgi a rheumatica .Seems to be a bit symptomati c but certainly there is a strong component of inflammato ry arthritis. Continue prednisone 10 mg alternate with 5 mg every other day. This seems to be the best option for her as attempts in the past to lower the prednisone resulted in flare Repeat ESR and CRP today on account of increased discomfort . I will reach out to her after review of the labs with any changes that I would recommend in her current treatment plan. Long-term drug therapy [id number] Z79.899 Must follow-up with an eye examinatio n every year While taking the hydroxychl oroquine. On account of corticoste roid use, osteoporos is, osteonecro sis risk were reviewed. Weight gain diabetes also reviewed. Must follow with a bone density every 2 years [id number] ROSE BASS MD [facility] [address] [place] [address] 01/21/2024 10:13:42 01/22/2024 04:18:34 Inflammatory polyarthropathy [id number] M06.4 78- year-old with polyarthri tisSeroneg ative rheumatoid arthritis. Clinically stable without any active disease. On anc e hydroxychl oroquine 200 mg daily and prednisone 10 mg alternatin g with 5 mg every other day. Does have features of fibromyalg ia.All the side effect profiles of the disease modifying medication s as well as corticoste roid reviewed. Avoid the NSAIDs along with the corticoste roids to avoid GI toxicity as well as renal toxicity. Follow-up 3 months Polymyalgi a rheumatica [id number] M35.3 78-year-ol d female with chronic polymyalgi a rheumatica .Doing fairly well. Current symptoms are secondary to fibromyalg ia. Normal pulses. No headaches. No jaw pain. Continue prednisone 10 mg alternate with 5 mg every other day. This seems to be the best option for her as attempts in the past to lower the prednisone resulted in flare ESR CRP 10/25/2023 is normal Long-term drug therapy [id number] Z79.899 Must follow-up with an eye examinatio n every year While taking the hydroxychl oroquine. On account of corticoste roid use, osteoporos is, osteonecro sis risk were reviewed. Weight gain diabetes also reviewed. Must follow with a bone density every 2 years Fibromyalgia [id number] M [age] Symptomati c with diffuse fibromyalg ia tender points. Discussed the diagnosis of fibromyalg ia. Educated about the disease. On account of fibromyalg ia pain, suggested the addition of cymbalta. Side effect profile reviewed. Prescripti on sent. Breast reduction discussed. Follow up in March 2024. [id number] ROSE BASS MD [facility] [address] [place] [address] 05/07/2024 09:49:06 05/08/2024 04:38:13 Inflammatory polyarthropathy [id number] M06.4 78- year-old with polyarthri tisSeroneg ative rheumatoid arthritis. She is symptomati c with pain and stiffness although, significan t pains are mechanical after the recent fall.Going through physical therapy.An kle edema. No synovitis or effusion. On maintenanc e hydroxychl oroquine 200 mg daily and prednisone 10 mg alternatin g with 5 mg every other day.I have tried to take her down on the prednisone but she has always resisted the drop in the prednisone which results in more pain and stiffness. I repeated the labs. Based on the history, combinatio n of inflammato ry arthritis and polymyalgi a rheumatica IL-6 antagonist Kevzara would be a good option at 200 mg subcu every 2 weeks and would help me also to reduce the prednisone . All the side effect profiles of the disease modifying medication s as well as corticoste roid reviewed. Avoid the NSAIDs along with the corticoste roids to avoid GI toxicity as well as renal toxicity. Follow-up 3 months Polymyalgi a rheumatica [id number] M35.3 78-year-ol d female with chronic polymyalgi a rheumatica .Symptomat ic. Although there is a component of fibromyalg ia beside mechanical pains. Normal pulses. No headaches. No jaw pain. She is not able to lower the dose of prednisone which still is at 10 mg alternate with 5 mg every other day. I have suggested Kevzara as a steroid sparing medication . Once on Kevzara we will try to reduce the dose of prednisone to low maintenanc e therapy. recheck ESR and CRP today. Long-term drug therapy [id number] Z79.899 Must follow-up with an eye examinatio n every year While taking the hydroxychl oroquine. On account of corticoste roid use, osteoporos is, osteonecro sis risk were reviewed. Weight gain diabetes also reviewed. Must follow with a bone density every 2 yearsTB and hep c test today. Fibromyalgia [id number] M [age] Symptomati c with diffuse fibromyalg ia tender points. Discussed the diagnosis of fibromyalg ia. Educated about the disease. On account of fibromyalg ia pain, suggested the addition of cymbalta. Side effect profile reviewed. Prescripti on sent. Breast reduction discussed. Follow up in March 2024. [id number] ROSE BASS MD [facility] [address] [place] [address] 10/28/2024 13:15:11 10/29/2024 09:41:27 Inflammatory polyarthropathy [id number] M06.4 78- year-old with polyarthri tisSeroneg ative rheumatoid arthritis. Doing very well and currently pain-free. She is denying any complaints . On maintenanc e hydroxychl oroquine 200 mg daily and prednisone 10 mg alternatin g with 5 mg every other day. Continue with the current treatment plans. Avoid the NSAIDs along with the corticoste roids to avoid GI toxicity as well as renal toxicity. Follow-up 3 months Polymyalgi a rheumatica [id number] M35.3 78-year-ol d female with chronic polymyalgi a rheumatica .Asymptoma tic. On combinatio n of prednisone and hydroxychl oroquine as detailed above. We have talked about Kevzara. She would rather hold off on it. Long-term drug therapy [id number] Z79.899 Must follow-up with an eye examinatio n every year While taking the hydroxychl oroquine. On account of corticoste roid use, osteoporos is, osteonecro sis risk were reviewed. Weight gain diabetes also reviewed. Must follow with a bone density every 2 yearsTB and hep c test today. Fibromyalgia [id number] M [age] Clinically stable. No complaints . Pains are well-contr olled. Continue with gabapentin 100 mg every 8 hours Follow-up in 3 months [id number] ROSE BASS MD [facility] [address] [place] [address] 01/27/2025 10:22:01 01/28/2025 04:37:03 Inflammatory polyarthropathy [id number] M06.4 78- year-old with polyarthri tisSeroneg ative rheumatoid arthritis. Doing very well. Does have mechanical left shoulder pain. She did have a fall and had pelvic fracture fully recovered. Has gone through physical therapy. Walking with a walker. Does not have any active synovitis. On maintenanc e hydroxychl oroquine 200 mg daily and prednisone 5mg daily. She can increase the prednisone 5 mg alternate with 10 mg every other day. Avoid the NSAIDs along with the corticoste roids to avoid GI toxicity as well as renal toxicity. Follow-up 3 months Polymyalgi a rheumatica [id number] M35.3 78-year-ol d female with chronic polymyalgi a rheumatica .She is fairly stable at this time. Most of the pains are mechanical . She will continue with the prednisone with an option of increasing the dose to 5 mg once or twice a day as needed. Continue with hydroxychl oroquine as detailed above. We have talked about Kevzara. She would rather hold off on it. Long-term drug therapy [id number] Z79.899 Must follow-up with an eye examinatio n every year While taking the hydroxychl oroquine. On account of corticoste roid use, osteoporos is, osteonecro sis risk were reviewed. Weight gain diabetes also reviewed. Must follow with a bone density every 2 years Will repeat the labs on her visit in April. Fibromyalgia [id number] M [age] Clinically stable. No complaints . Pains are well-contr olled. Failed to tolerate gabapentin . She will continue with the Tylenol Extra Strength couple of times a day. We decided not to reinitiate gabapentin or Lyrica. Follow-up in 3 months Health Concerns Section Related Observation LastModified by Organization Detai ls LastModified Time None Recorded Concern Status LastModified by Organization Details LastModified Time None Recorded Advance Directives Directive None Recorded Payers Insurance Date Sequence Insurance Name Policy Number Policy Valdez Covered Member ID Valdez Member ID Guarantor Name 01/24/2025 1 [place] Andry Culp [id number] Andry Culp 05/16/2024 2 [employer] Andry Culp [id number] Andry Culp 01/24/2025 2 [employer] [place] (MEDICARE SUPPLEMENT) PLAN G Andry Culp [id number] Andry Culp Notes Date Note Type Note Provider Name and Address Organization Details Recorded Time 10/25/2023 text/html 77 years old see n as a follow-up on polymyalgia rheumatica and inflammatory arthritis. Plus chronic generalized osteoarthritis. Andry was last seen here in our rheumatology department 04/03/2023 On prednisone alternating between 10 mg and 5 mg every other day. Further she is on hydroxychloroquine 100 mg once a day. Tolerating them well, no side effects. Complaining of increased pain since August 22, 2023. everywhere but th eknees . No headaches or jaw pain. MD Piotr [place], [address], [facility] 10/25/2023 10:45:26 01/21/2024 text/html 78 years old see n as a follow-up on polymyalgia rheumatica and inflammatory arthritis. Plus chronic generalized osteoarthritis. Andry was last seen here in our rheumatology department 10/25/2023 On prednisone alternating between 10 mg and 5 mg every other day. Further she is on hydroxychloroquine 200 mg once a day. Tolerating them well, no side effects. Complaining of diffuse pain, head to toe pain but without any infection fevers or chills. No constitutional symptoms. She is under stress because of some family situation. No headaches or jaw pain. ROSE BASS MD [facility] [place], [address], [facility] 01/21/2024 16:55:07 05/07/2024 text/html 78 years old see n as a follow-up on polymyalgia rheumatica and inflammatory arthritis. Chronic mechanical back pain and generalized osteoarthritis. Interval injury with sprain and strain multiple joints and back. Going through extensive physical therapy. Seems to be doing better. Still uses a walker. Steroid injection with orthopedics right hip was without much benefit. On prednisone alternating between 10 mg and 5 mg every other day. Further she is on hydroxychloroquine 200 mg once a day. Tolerating them well, no side effects. No headaches or [place], [phone], [facility] 05/07/2024 16:46:44 10/28/2024 text/html Visit today is being conducted via telehealth using both audio/video. The patient confirms that he/she is physically located in [place] at the time of this visit. Patient expressed understanding of audio/video telehealth as a billable visit and has consented. Patient also expressed understanding that not every condition can be appropriately addressed via telehealth and that this telehealth visit may need to be converted to an in-person visit or may even result in a recommendation to go to the E.R. at the provider? s discretion in order to provide the best possible care. 78 years old seen as a follow-up on polymyalgia rheumatica and inflammatory arthritis. Chronic mechanical back pain and generalized osteoarthritis. She was last seen in April 2024. She is doing a lot better. On hydroxychloroquine 200 mg daily beside prednisone 10 mg alternating with 5 mg every other day. Currently in pain-free . No headaches or jaw pain. ROSE BASS MD [address] [place] [address], [phone], [facility] 10/28/2024 13:30:53 01/27/2025 text/html 79 years old see n as a follow-up on polymyalgia rheumatica and inflammatory arthritis. Chronic mechanical back pain and generalized osteoarthritis. She was last seen in 10/28/24. She has her usual aches and pains. Chronic pain in the left shoulder for which she has done the physical therapy. She also reports history of pelvic fracture after a fall has recovered well going through physical therapy. She uses a walker to get around. Hydroxychloroquine is 200 mg daily and prednisone is 5 mg once a day and is wondering if she can increase it to twice a day. Couldn't tolerate gabapentin. No headaches. No jaw pain. No vision changes. ROSE BASS MD [address] [place] [address], [phone], [facility] 01/27/2025 11:01:52 OBGyn Episode No OBEpisode recorded.
--- OUTSIDE RECORDS SUMMARY | 2025-03-11 13:20 | XMS_ITS ---
Author Organization Unknown Vital Signs BpStanding BpSitting BpSupine Date Temperature HeartRate Weight Hei ght Spo2 Respiration Bmi HeadCircumference FieldCount TimeRecorded NeckCircumferen ce WaistCircumference Pulse 146/68 12/25 00:00 :00 98.0 76 152,12. 80 5,5 25.4 2 6 01/27/2025 15:30:00 110/72 12/12 00:00 :00 98.4 93 153,0 5,5 25.4 6 6 01/27/2025 13:30:00 140/78 11/13 00:00 :00 98.1 76 152,6.4 0 5,5 25.3 6 6 01/27/2025 14:15:00 118/74 09/30 00:00 :00 98.3 85 5,5 4 01/27/2025 13:45:00 110/64 08/14 00:00 :00 98.0 97 5,5 4 01/27/2025 14:15:00 137/82 07/22 00:00 :00 97.8 97 141,12. 80 18 5 01/27/2025 16:30:00 68/36;112/ 68;108/70 07/08 00:00 :00 97.4 59 148,3.2 0 18 5 01/27/2025 16:15:00 144/98 06/26 00:00 :00 98.3 79 5,5 4 01/27/2025 13:45:00 152/104 06/19 00:00 :00 98.4 82 5,5 4 01/27/2025 14:30:00 140/90 06/17 00:00 :00 98.1 75 5,5 4 01/27/2025 10:00:00 152/100 06/12 00:00 :00 98.1 82 5,5 4 01/27/2025 09:45:00 106/66 05/27 00:00 :00 98.2 88 5,5 4 01/27/2025 14:30:00 142/96 05/01 00:00 :00 98.2 80 5,5 4 01/27/2025 14:15:00 132/86 04/15 00:00 :00 98.1 90 5,5 4 01/27/2025 14:20:00 150/100 03/25 00:00 :00 97.4 64 152,3.2 0 5,5 25.3 2 6 01/27/2025 14:15:00 148/98 03/18 00:00 :00 97.5 88 152,3.2 0 5,5 25.3 2 6 01/27/2025 14:15:00 144/94 03/11 00:00 :00 97.9 73 154,0 5,5 25.6 2 6 01/27/2025 16:00:00 130/96 02/20 00:00 :00 97.8 63 150,3.2 0 5,5 24.9 9 6 01/27/2025 11:00:00 134/70 01/16 00:00 :00 97.5 70 151,0 5,5 25.1 2 6 01/27/2025 11:15:00 164/100 01/09 00:00 :00 97.8 62 151,0 5,5 25.1 2 6 01/27/2025 11:45:00 138/94 12/18 00:00 :00 97.5 64 148,0 5,5 24.6 3 6 01/27/2025 10:45:00 160/90 12/11 00:00 :00 97.7 65 150,12. 80 5,5 25.0 9 6 01/27/2025 10:30:00 108/60 11/29 00:00 :00 98.4 92 150,0 5,5 24.9 6 6 01/27/2025 11:50:00 170/112 11/20 00:00 :00 98.0 73 148,9.6 0 5,5 24.7 3 6 01/27/2025 15:45:00 150/94 11/01 00:00 :00 97.5 69 153,0 5,5 25.4 6 6 01/27/2025 13:45:00 140/74 09/04 00:00 :00 97.4 81 151,3.2 0 5,5 25.1 6 6 01/27/2025 10:15:00 118/72 07/19 00:00 :00 98.6 67 149,3.2 0 5,5 24.8 3 6 01/27/2025 09:45:00 142/98 07/12 00:00 :00 97.7 66 148,9.6 0 5,5 24.7 3 6 01/27/2025 09:45:00 126/78 06/21 00:00 :00 72 150,6.4 0 5,5 25.0 3 5 01/27/2025 15:30:00 128/82 05/15 00:00 :00 98.3 71 149,6.4 0 5,5 24.8 6 6 01/27/2025 11:30:00 160/98 05/01 00:00 :00 98.3 65 146,0 5,5 24.2 9 6 01/27/2025 10:40:00 146/86 04/19 00:00 :00 98.3 67 148,0 5,5 24.6 3 6 01/27/2025 10:00:00 136/84 03/08 00:00 :00 98.1 65 149,6.4 0 5,5 24.8 6 6 01/27/2025 10:40:00 144/92 01/30 00:00 :00 98.0 65 146,3.2 0 5,5 24.3 3 6 01/27/2025 09:50:00 130/90 01/23 00:00 :00 98.1 68 147,3.2 0 5,5 24.4 9 6 01/27/2025 10:45:00 154/86 12/07 00:00 :00 98.1 66 147,3.2 0 5,5 24.4 9 6 01/27/2025 15:00:00 125/80 11/16 00:00 :00 97.8 5,5 3 01/27/2025 14:50:00 09/21 00:00 :00 151,0 5,5 25.1 2 3 01/27/2025 11:00:00 154/92 09/18 00:00 :00 98.2 69 151,6.4 0 5,5 25.1 9 6 01/27/2025 15:50:00 09/11 00:00 :00 5,5 1 01/27/2025 15:10:00 132/80 08/04 00:00 :00 75 150,9.6 0 5,5 25.0 6 5 01/27/2025 15:30:00 normal 07/17 00:00 :00 97.7 150,0 5,5 24.9 6 5 01/27/2025 15:10:00 normal 07/10 00:00 :00 150,0 5,5 24.9 6 4 01/27/2025 15:15:00 130/80 06/08 00:00 :00 98.5 80 5,5 4 01/27/2025 12:45:00 130/82 05/09 00:00 :00 98.6 74 153,0 5,5 25.4 6 6 01/27/2025 14:15:00 120/80 04/17 00:00 :00 98.5 73 152,6.4 0 5,5 25.3 6 6 01/27/2025 15:50:00 150/84 03/16 00:00 :00 98.4 70 153,9.6 0 5,5 25.5 6 6 01/27/2025 14:45:00
--- NOTE | 2025-03-11 13:28 | CT_ITS ---
FINAL REPORT CLINICAL HISTORY: hit side of tub w/ R post ribs C/O PAIN FINDINGS: CT CHEST without contrast COMPARISON: None . TECHNIQUE: Axial CT without contrast This study was performed with techniques to keep radiation doses as low as reasonably achievable, (ALARA). Individualized dose reduction techniques using automated exposure control or adjustment of mA and/or kV according to the patient's size were employed. FINDINGS: No acute lung disease is present . There are acute minimally displaced right posterior fractures of the 10th through 12th ribs. There is no evidence of pneumothorax, hemothorax, or pulmonary contusion. No pleural or pericardial effusion is seen . No adenopathy or mass lesion is present . IMPRESSION: 1. Acute minimally displaced right posterior fractures of the 10th through 12th ribs, without evidence of pneumothorax, hemothorax, or pulmonary contusion. This study was performed using automated techniques to achieve radiation exposure as low as reasonably achievable Reviewed, Interpreted and Dictated by David Roberts MD Transcribed by Caridad Ceja Authenticated and [facility]
[2025-03-11] MEDS: LIDOCAINE 5% TRANSDERMAL PATCH 1 EACH TD (13:52)
[2025-03-11] MEDS: IBUPROFEN 400 MG TABLET 800 MG PO (13:53)
[2025-03-11 14:00] VITALS: BP 116/68; PULSE 62; O2SAT 96
[2025-03-11 14:30] VITALS: BP 120/77; PULSE 60; O2SAT 97
[2025-03-11 14:37] VITALS: BP 120/77; PULSE 64; RESP 18; TEMP 36.6; O2SAT 97
== END 2025-03-11 14:38 | disposition home or self-care (01) ==
PROVIDERS: Emergency Provider Emergency Medicine; PCP Family Medicine
DX: S22.41XA Multiple fractures of ribs, right side, initial encounter for closed fracture (principal); R07.1 Chest pain on breathing; M54.6 Pain in thoracic spine; I10 Essential (primary) hypertension; E78.5 Hyperlipidemia, unspecified; W19.XXXA Unspecified fall, initial encounter
CPT/HCPCS: 71250; 99284

== ENCOUNTER 2025-03-12 01:04 | Inpatient (IN) | payer MEDICARE, OTHER, SELFPAY ==
[2025-03-12] VITALS (18 sets, daily range): BP systolic 100–168; BP diastolic 70–116; PULSE 61–90; RESP 14–23; TEMP 36.6–37.4; O2SAT 88–98; BMI 24.7; BMI 25.8
--- NOTE | 2025-03-12 01:03 | XR_ITS ---
PROCEDURE INFORMATION: Exam: XR Chest Exam date and time: 03/12/2025 1:12 AM Age: 79 years old Clinical indication: Chest wall pain; Additional info: Rib fractures, cp TECHNIQUE: Imaging protocol: Radiologic exam of the chest. Views: 1 view. Total images: 1 COMPARISON: CT CHEST WO CON 03/11/2025 1:45 PM FINDINGS: Lungs: Mild upper lobe predominant emphysema. No concerning infiltrate or airspace consolidation. No pulmonary vascular congestion. Pleural spaces: Unremarkable. No pleural effusion. No pneumothorax. Heart/Mediastinum: Borderline to mild cardiomegaly. Severe mitral annular calcifications. No mediastinal widening. Vasculature: Atherosclerotic aortic arch. Bones/joints: Osteopenia. Known posterior lower right rib fractures are not radiographically apparent. Soft tissues: Breast attenuation artifact. IMPRESSION: 1. No radiographically acute cardiopulmonary process. 2. Emphysema/COPD. 3. Known right rib fractures are not radiographically apparent. 4. No pneumothorax.
--- NOTE | 2025-03-12 01:05 | ED_ITS ---
Discharge Plan Disposition Patient Disposition: Admitted Chief Complaint: PAIN Prescriptions Prescriptions: No Action hydroxychloroquine 200 mg tablet 200 mg PO DAILY simvastatin 20 MG tablet 20 mg PO HS levothyroxine 112 MCG tablet 112 mcg PO DAILYDM lidocaine 5 % adhesive patch,medicated 1 patch topical DAILY Qty: 30 0RF Rx Instructions: leave on most painful area for up to 12 hrs prednisone 5 mg tablet 5 mg PO DAILY cetirizine 10 mg Capsule 10 mg PO DAILY potassium chloride 10 mEq capsule, extended release 10 meq PO DAILY Qty: 30 0RF melatonin 3 mg Tablet 3 mg PO HSP aspirin 81 mg Tablet,Delayed Release (Dr/Ec) 81 mg PO DAILY acetaminophen 500 mg Tablet 500 mg PO Q6HP PRN (Reason: Mild Pain (Scale Score 1-4)) benzonatate 100 mg Capsule 100 mg PO TIDP PRN (Reason: Cough) hydroxyzine pamoate 25 mg Capsule 25 mg PO Q6HP PRN (Reason: Anxiety) tramadol 50 mg Tablet 50 mg PO Q6HP PRN (Reason: Moderate Pain (Scale Score 5-6)) carvedilol 3.125 mg Tablet 3.125 mg PO BIDWMEAL cyclobenzaprine 5 mg Tablet 5 mg PO TID promethazine 25 mg Tablet 25 mg PO Q6HP PRN (Reason: Nausea And Vomiting) tamsulosin 0.4 mg Capsule 0.4 mg PO DAILY 30 Days Qty: 30 0RF sennosides-docusate sodium [Senna Plus] 8.6-50 mg tablet 2 tab-cap PO BIDP PRN (Reason: Constipation) polyethylene glycol 3350 [Miralax] 17 gram/dose powder 17 g PO DAILY Qty: 510 0RF amoxicillin 500 mg capsule 500 mg PO BID 5 Days Qty: 10 0RF Referrals Follow up/Referrals: Provider,Referral, MD [Primary Care Provider] - See instructions Clinical Impressions Clinical Impression: Multiple rib fractures, Hyponatremia, Anemia, Acute hypokalemia Print Language Print Language: Greenlandic Discharge ED Provider: Karthik Carmona General Adult HPI General Chief complaint: PAIN Stated complaint: RIB PAIN Time Seen by Provider: 03/12/25 01:05 History of Present Illness HPI narrative: 79-year-old with history of rheumatoid arthritis and coronary artery disease presents for right-sided rib pain. She fell around 9 AM this morning, landing the right posterior aspect of her chest on the side of the tub. She says she is not sure why she fell, just felt weak. She was seen and evaluated here and received only a noncontrast CT scan of the chest which was read as having 3 rib fractures. She was sent home with lidocaine patches but she reports that her pain is too significant and her cannot help her enough at home. She received 2 mg of morphine, Zofran and 500 mL of fluid with EMS. She denies striking her head or losing consciousness during the fall. Denies any other injuries. Ambulates with a walker. Related Data Home Medications ?Medication ?Instructions ?Recorded ?Confirmed levothyroxine 112 mcg tablet 112 mcg PO DAILYDM 04/24/18 12/04/24 simvastatin 20 mg tablet 20 mg PO HS 04/24/18 12/04/24 hydroxychloroquine 200 mg tablet 200 mg PO DAILY 05/11/22 12/04/24 cetirizine 10 mg capsule 10 mg PO DAILY 07/01/22 12/04/24 prednisone 5 mg tablet 5 mg PO DAILY 07/01/22 12/04/24 acetaminophen 500 mg tablet 500 mg PO Q6HP PRN Mild Pain 07/15/24 12/04/24 (Scale Score 1-4) aspirin 81 mg tablet,delayed 81 mg PO DAILY 07/15/24 12/04/24 release benzonatate 100 mg capsule 100 mg PO TIDP PRN Cough 07/15/24 12/04/24 carvedilol 3.125 mg tablet 3.125 mg PO BIDWMEAL 07/15/24 12/04/24 cyclobenzaprine 5 mg tablet 5 mg PO TID 07/15/24 12/04/24 hydroxyzine pamoate 25 mg capsule 25 mg PO Q6HP PRN Anxiety 07/15/24 12/04/24 melatonin 3 mg tablet 3 mg PO HSP Insomnia 07/15/24 12/04/24 promethazine 25 mg tablet 25 mg PO Q6HP PRN Nausea And 07/15/24 12/04/24 Vomiting tramadol 50 mg tablet 50 mg PO Q6HP PRN Moderate Pain 07/15/24 12/04/24 (Scale Score 5-6) sennosides 8.6 mg-docusate sodium 2 tab-cap PO BIDP PRN Constipation 08/08/24 12/04/24 50 mg tablet (Senna Plus) Previous Rx's ?Medication ?Instructions ?Recorded potassium chloride 10 mEq 10 meq PO DAILY #30 caps 06/02/24 capsule,extended release tamsulosin 0.4 mg capsule 0.4 mg PO DAILY 30 days #30 caps 07/16/24 polyethylene glycol 3350 17 17 g PO DAILY #510 grams 08/08/24 gram/dose oral powder (Miralax) amoxicillin 500 mg capsule 500 mg PO BID 5 days #10 caps 08/27/24 lidocaine 5 % topical patch 1 patch topical DAILY #30 ea 03/11/25 Allergies Allergy/AdvReac Type Severity Reaction Status Date / Time Sulfa (Sulfonamide Allergy Unknown Hives Verified 12/04/24 14:16 Antibiotics) (SULFA (SULFONAMIDE ANTIBIOTICS)) codeine Allergy Vomiting Verified 12/04/24 14:16 Penicillins Allergy Hives Verified 12/04/24 [facility] Disclaimer: The information contained in this section may have been updated after the patient was seen, as this information can be updated by other users. Medical History Abnormal weight loss Anorexia Hypoglycemia Postobstructive diuresis Acute urinary retention Adult failure to thrive Nausea Chronic hyponatremia Multiple fractures of pelvis with disruption of pelvic ring Hypochloremia Falls Trochanteric bursitis, right hip Skin tear of left upper extremity Contusion of elbow, left Contusion of hip, left Trochanteric bursitis, left hip Closed fracture of greater trochanter of femur With acute decompensation Pain around toenail, right foot Ingrown toenail of right foot Closed nondisplaced fracture of fifth right metatarsal bone MARY (acute kidney injury) Enteritis Hypothyroidism Foot fracture, right Polymyalgia rheumatica syndrome History of back pain History of left heart catheterization Hyperlipidemia Hypertension Cataract COVID-19 Closed fracture of fourth metatarsal of right foot Nondisplaced fracture of fifth right metatarsal bone with routine healing Myocardial infarction 2012 HLD (hyperlipidemia) CAD (coronary artery disease) Rheumatoid arthritis Surgical History H/O cataract removal with insertion of prosthetic lens History of heart artery stent Previous back surgery 2001 H/O thyroidectomy 1999 History of appendectomy 1992 History of hysterectomy 1992 History of tonsillectomy Family History Other Cancer Heart attack Hypertension Social History Smoking Status: Former smoker tobacco type: cigarettes packs per day: 1 years smoked: 40 how long ago did patient quit smokin years alcohol intake: never substance use type: denies use current occupational status: retired Travel in the last 8 weeks?: None caregiver/support person: Yes () household members: spouse housing: house marital status: 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 needs: No Other Medical History Have you received the Flu Vaccine for this season: No Have you received the Pneumonia Vaccine: Yes ROS Obtained: Yes All systems reviewed & no additional complaints except as documented Physical Exam General General appearance: alert and in no apparent distress Head Head exam: atraumatic and normocephalic Eye Eye exam: Present normal appearance, PERRL and EOMI ENT ENT exam: Present normal oropharynx and normal external ear exam Neck Neck exam: Present normal inspection and full ROM Chest Chest inspection: Present normal inspection and symmetric chest wall rise Respiratory Respiratory exam: Present normal lung sounds bilaterally; Absent respiratory distress Cardiovascular Cardiovascular exam: Present regular rate and normal rhythm Abdominal Exam Abdominal exam: Present soft; Absent distention, tenderness or guarding Extremities Exam Extremities exam: Present normal inspection; Absent edema or joint swelling Back Exam Back exam: Present normal inspection and tenderness (Right low thoracic) Neurological Exam Neurological exam: Present alert and oriented X3; Absent motor sensory deficit Psychiatric Psychiatric exam: Present normal affect and normal mood Skin Skin exam: Present warm, dry and normal color Lymphatic Lymphatic Findings: no adenopathy Medical Decision Making Medical Records Medical records reviewed: Yes I reviewed the patient's medical records. Screening: Per USPSTF and CDC recommendations, given the prevalence of disease in our region, it is our hospital?s policy to screen for HIV and viral Hepatitis for all patients aged 18 and over and those with ongoing risk factors. Michael Inquiry Pt receiving controlled substance: No Michael was queried for this patient: No Vital Signs: 03/12/25 01:05 03/12/25 01:15 Temperature 97.9 F Temperature Source Temporal Artery Scan Pulse Rate 61 Pulse Rate [Right] 68 Respiratory Rate 16 Blood Pressure [Right Arm] 148/99 H Blood Pressure Mean [Right Arm] 115 Blood Pressure Source [Right Arm] Automatic Cuff Blood Pressure Position [Right Arm] Sitting 02 Sat by Pulse Oximetry 98 92 L Oxygen Delivery Method Room Air Lab Data Lab results reviewed: Yes I reviewed the patient's lab results. Lab Results 03/12/25 01:02: WBC 10.6, RBC 3.32 L, Hgb 11.4 L, Hct 31.3 L, MCV 94.3, MCH 34.3 H, MCHC 36.4 H, RDW 12.4, Plt Count 225, MPV 9.4, Neut % (Auto) 74.1, Lymph % (Auto) 11.5, [place] % (Auto) 11.5 H, Eos % (Auto) 0.5, Baso % (Auto) 0.8, Neut # (Auto) 7.8, Lymph # (Auto) 1.2, [place] # (Auto) 1.2 H, Eos # (Auto) 0.1, Baso # (Auto) 0.1, Sodium 115 L, Potassium 2.9 L*, Chloride 84 L, Carbon Dioxide 25, Anion Gap 8.9, BUN 15, Creatinine 0.90, Estimated Creat Clear 49, Estimated GFR 61, Est GFR ( Amer) 73, Glucose 100, Calcium 8.1 L, Magnesium 1.6, Total Bilirubin 0.5, AST 32, ALT 19, Alkaline Phosphatase 61, Total Protein 5.9 L, Albumin 3.5, Globulin 2.4, Albumin/Globulin Ratio 1.5 03/12/25 01:02 03/12/25 01:02 Orders (Tests/Meds): ED MEDICATIONS Discontinued Medications Generic Name Dose Route Start Last Admin Trade Name Freq PRN Reason Stop Dose Admin Acetaminophen 1,000 mg 03/12/25 01:04 Acetaminophen 500mg Tab PO 03/12/25 01:05 ONCE ONE ORDERS Category Date Time Status CXR --portable [XR chest portable] Stat Exams 03/12/25 01:03 Taken POCUS Point of Care (ER Only) Stat Exams 03/12/25 01:03 Completed CBC w/Auto Diff [Complete Blood Count Auto Diff] Stat Lab 03/12/25 01:02 Completed CMP [Comprehensive Metabolic Panel] Stat Lab 03/12/25 01:02 Completed Magnesium Stat Lab 03/12/25 01:02 Completed Medical Decision Narrative: 79-year-old female with history of rheumatoid arthritis and coronary artery disease presents for persistent right sided back/rib pain after a fall yesterday morning around 9 AM.. History was obtained via interactive discussion with patient, EMS, chart review. On arrival, patient is [afebrile, hemodynamically stable, satting appropriately, alert, oriented x4, GCS 15], moving all extremities spontaneously. Full physical exam performed and significant for right-sided rib tenderness. Differential includes but is not limited to intracranial trauma intrathoracic trauma intra-abdominal trauma spine trauma extremity trauma. Bedside ultrasound was performed which shows negative FAST exam and no evidence of pneumothorax. Basic labs and EKG were obtained to assess for possible reasons for fall. Full trauma scans were considered but deemed unnecessary given patient is 16 hours out from injury, has a negative FAST exam and no other tenderness on exam at this time. On my interpretation of patient's CT from this morning, it shows rib fractures of right posterior ribs 9,10,11,12, not just 10,11,12. Lab significant for stable anemia, acute on chronic hyponatremia with sodium of 115, recent baseline appear to be around 127. Also shows hypokalemia and hyponatremia. EKG was independently interpreted by me at 1:25 AM, rhythm with first-degree AV block, no obvious ischemic changes. Given patient history, exam and workup, patient's presentation most likely represents acute rib fractures of right ribs 9 through 12. Patient also has acute on chronic hyponatremia as well as anemia and hypokalemia. Interactive discussion was had with the hospitalist on-call for admission. Procedures Risk/Benefits of Procedure(s) Were Explained: Yes Limited Ultrasound Indication:: Limited EFAST ultrasound Indication: Blunt trauma Views: [LUQ, RUQ, Pelvis, Limited Cardiac, Limited Thoracic] Interpretation: Peritoneal Free Fluid: Absent Pericardial effusion: Absent Right lung pneumothorax: Absent Left Lung pneumothorax: Absent Impression: Negative EFAST ultrasound Images were saved to permanent archive The study was technically adequate CPT 40064-12 (limited cardiac) 20689-80 (limited abdominal) 83623-63 (chest) This study was performed by me, and I personally interpreted all images/videos. Critical Care Critical Care Time Critical Care Time: No
[2025-03-12 01:08] LABS: Basophils # 0.1 K/mm3 (0-0.2); Basophils % 0.8 % (0.1-2.0); Eosinophils # 0.1 Kmm3 (0.0-0.4); Eosinophils % 0.5 % (0.1-12.0); Hematocrit 31.3 % (37.0-47.0); Hemoglobin 11.4 g/dL (12.2-16.2); Immature Granulocytes # 0.17 10^3uL; Immature Granulocytes % 1.6 %; Lymphocytes # 1.2 K/mm3 (0.7-4.5); Lymphocytes % 11.5 % (10-50); Mean Corpuscular HGB Conc 36.4 g/dL (31.8-35.4); Mean Corpuscular Hemoglobin 34.3 pg (27.0-31.2); Mean Corpuscular Volume 94.3 fl (81-99); Mean Platelet Volume 9.4 fl (7.4-10.4); Monocytes # 1.2 K/mm3 (0.1-1.0); Monocytes % 11.5 % (1.7-9.3); Neutrophils # 7.8 K/mm3 (1.8-7.8); Neutrophils % 74.1 % (37.0-80.0); Nucleated Red Blood Cells # 0 10^3/uL; Nucleated Red Blood Cells % 0 %; Platelet Count 225 K/mm3 (142-424); Red Blood Count 3.32 M/mm3 (4.20-5.40); Red Cell Distribution Width 12.4 % (11.5-17.5); Red Cell Distribution Width-SD 43.2 fL; White Blood Count 10.6 K/mm3 (4.8-10.8)
--- OUTSIDE RECORDS SUMMARY | 2025-03-12 01:09 | XMS_ITS | Continuity of Care Document ---
Author Organization [facility], RHEUMATOLOGY [facility] Address [address] [place] [address] Care Team Providers Care Utility Worker [place] Name Role Phone EMA CAMPOS Primary Care Provider ROSE BASS [employer] Assembler Assessment Encounter Date Assessment Date Assessment LastModified by Organization Details LastModified Time 01/27/2025 01/27/2025 78-year-old female with polymyalgia rheumatica and inflammatory arthritis. Further has mechanical pains. My impression and plan: [email or web address] Not available 01/27/2025 10:24:04 Plan of Treatment Reminders Order Date Submit Date Provider Last Modified By Organization Details Last Modified Time Details Appointments RHEUM RECHECK 2024 11:15A M ROSE BASS MD Not available Not available Not available Lab None recorded. Referral None recorded. Procedures None recorded. Surgeries None recorded. Imaging None recorded. Medication Orders prednison e 5 mg tablet 2024 025 [facility] [place], [address], 01/27/2025 10:42:41 Patient TargetsNo targets recorded. Patient InstructionsNo instructions recorded. Reason for Referral None Reported. Problems Name Problem SNOMED Code Status Onset Date Resolution Date Notes Provider Name and Address Organization Details Recorded Time Hyperuricemia 73196363 Active 2017 ARLENE MEI, REGULATORY LEADER [address] [place], [address], [facility] 8 15:44:58 Problem Notes None recorded. Procedures Surgical History Date Name Laterality Status Provider Name and Address Organization Details Recorded Time Remove tonsils and adenoids completed [facility] 12/19/2018 09:47:28 Removal of thyroid completed [facility] 12/19/2018 09:47:47 Imaging Results None recorded. Procedure Notes None recorded. Medical Equipment None Reported. Allergies Allergen ID Allergen Name Allergen Category Reaction Reaction Severity Criticality Documentation Date Start Date Code Code System Note Provider Name and Address Organization Details Recorded Time 126153 Substance with sulfonami de structure and antibacte rial mechanism of action (substanc e) medicatio n Not available Not available Not available 09/15/20162014 48769 8003 SNOMED Comme nt: Creat ed By: Rayna Gonzalez; Creat ed Date: 2014 10:04 :26 AM; Not Available [facility] 6 09:13:41 [id number] codeine medicatio n Not available Not available Not available 09/15/20162014 2670 RxNorm Comme nt: Creat ed By: Rayna Gonzalez; Creat ed Date: 2014 10:03 :51 AM; Not Available [facility] 6 09:37:20 Medications Name Sig Start [...] levothyr oxine; Dosage:1 ; refills: 0; Quantity :31616 mcg Not Available Not Available Not Available [...] Not Available Vitals Date Recorded Body height Respiratory rate Body mass index (BMI) Body weight Oxygen saturation Oxygen saturation in Arterial blood by Pulse oximetry Heart rate Systolic blood pressure Diastolic blood pressure Provider Name and Address Organization Details Last Updated DateTime 167.64 cm 16 /min 24.7 kg/m2 94644.6 3 g 97 % 97 % 68 /min 126 mm[Hg] 82 mm[Hg] Arash Zavala [facility] 5 10:34:11 Social History Question Answer Notes LastModified by Organizat ion Details LastModified Time Tobacco Smoking Status [facility] 14:04:04 How Much Tobacco Do You Chew? None [email or web address] Information not available 06/19/2019 What Was The Date Of Your Most Recent Tobacco Screening? 01/27/2025 [email or web address] Information not available 01/27/2025 How Much Tobacco Do You Smoke? 1 PPD Information not available 06/19/2019 How Many Years Have You Smoked Tobacco? 40 Information not available 06/19/2019 Have You Recently Traveled Abroad? No [email or web address] Information not available 10/24/2022 Sex: Unknown Functional Status Question Answer Note LastModified by Organizat ion Details LastModified Time What is your level of alcohol consumption? None [email or web address] Information not available 12/19/2018 Do you or [...] Acid Reflux (GERD) N Rheumatoid Arthritis N Diabetes N Bleeding Disorder N Asthma N Heart Disease Y Hypertension Y Gynecological HistoryNo gynecological history recorded. Obstetrics History GPAL:G 0 P 0 0 0 0 Past Encounters Encounter ID Performer Location Encounter Start Date Encounter Closed Date Diagnosis/Indication Diagnosis SNOMED-CT Code Diagnosis ICD10 Code Diagnosis Note [id number] ROSE JEREMI BASS MD [facility] [address] [place] [address] 01/27/2025 10:22:01 01/28/2025 04:37:03 Inflammatory polyarthropathy 434982743 M06.4 78- year-old with polyarthri tisSeroneg ative rheumatoid arthritis. Doing very well. Does have mechanical left shoulder pain. She did have a fall and had pelvic fracture fully recovered. Has gone through physical therapy. Walking with a walker. Does not have any active synovitis. On anc e hydroxychl oroquine 200 mg daily and prednisone 5mg daily. She can increase the prednisone 5 mg alternate with 10 mg every other day. Avoid the NSAIDs along with the corticoste roids to avoid GI toxicity as well as renal toxicity. Follow-up 3 months Polymyalgi a rheumatica 78072578 M35.3 78-year-ol d female with chronic polymyalgi [...] hold off on it. Long-term drug therapy 915551531 Z79.899 Must follow-up with an eye examinasumito n every year While taking the hydroxychl oroquine. On account of corticoste roid use, osteoporos is, osteonecro sis risk were reviewed. Weight gain diabetes also reviewed. Must follow with a bone density every 2 years Will repeat the labs on her visit in April. Fibromyalgia 937707764 M 79.7 Clinically stable. No complaints . [...] by Organization Details LastModified Time None Recorded Payers Encounter Date Sequence Insurance Name Policy Number Policy Valdez Covered Member ID Valdez Member ID Guarantor Name 01/27/2025 1 MED[employer]ARE[employer] (MEDICARE) Andry Culp [id number] Andry Culp 01/27/2025 2 [facility] (MEDICARE SUPPLEMENT) PLAN G Andry Culp [id number] Andry Culp Notes Date Note Type Note Provider Name and Address Organization Details Recorded Time 01/27/2025 text/html 79 years old see n [...] pain. No vision changes. ROSE BASS MD [address] [place], [address], [facility] 01/27/2025 11:01:52 OBGyn Episode No OBEpisode recorded.
[2025-03-12 01:15] LABS: Chloride 84 mmol/L (98-107)
[2025-03-12 01:16] LABS: Albumin Level 3.5 g/dl (3.5-5.0)
[2025-03-12 01:18] LABS: Anion Gap 8.9 mEq/L (5-15); Blood Urea Nitrogen 15 mg/dl (7-17); Carbon Dioxide 25 mmol/L (22.0-30.0); Creatinine Clearance Estimated 49 mL/min (50-200); Estimated Glomerular Filt Rate 61 ml/min (>60); GFR (African American) 73 ML/MIN (>60)
[2025-03-12 01:19] LABS: Alanine Aminotransferase 19 U/L (12-78); Albumin/Globulin Ratio 1.5 (1.1-1.8); Alkaline Phosphatase 61 U/L (38-126); Aspartate Amino Transferase 32 U/L (14-36); Bilirubin,Total 0.5 mg/dl (0.2-1.3); Calcium 8.1 mg/dl (8.4-10.2); Globulin 2.4 g/dL (1.3-3.2); Glucose 100 mg/dl (74-100); Magnesium 1.6 mg/dl (1.6-2.3); Total Protein,Serum 5.9 g/dl (6.3-8.2)
[2025-03-12 01:21] LABS: Sodium 115 mmol/L (136-145)
[2025-03-12 01:22] LABS: Potassium 2.9 mmoL/L (3.5-5.1)
--- NOTE | 2025-03-12 01:22 | PC.NURSE ---
CRITICAL LAB CALLED. POTASSIUM 2.9. AWARE
--- NOTE | 2025-03-12 01:24 | ECG_ITS ---
APPROVED REPORT Exam: Resting ECG HR:65 bpm ECG Measurements Heart Rate 65 AXES GA 271 P 52 QRSd 91 QRS 69 QT 432 T 8 QTc 443 Conclusion SINUS RHYTHM WITH FIRST DEGREE AV BLOCK WITH OCCASIONAL ECTOPIC PREMATURE COMPLEXES SEPTAL MYOCARDIAL INFARCTION , PROBABLY OLD [40+ ms Q WAVE IN V1/V2] ABNORMAL ECG UNCONFIRMED REPORT Electronically signed by : TIMBO NERI, 03/15/2025 06:55:27
[2025-03-12] MEDS: 0.9 % SODIUM CHLORIDE 1000ML 1,000 ML 999 ML IV (01:59)
[2025-03-12] MEDS: CALCIUM GLUC IN NACL, ISO-OSM 1 GM/50 ML BAG IV (02:04)
[2025-03-12] MEDS: POTASSIUM CHLORIDE 10MEQ TABLET.ER 40 MEQ PO (02:08)
[2025-03-12] MEDS: ONDANSETRON 4MG/2ML VIAL 4 MG IV ×3 (02:09→15:01)
--- NOTE | 2025-03-12 03:15 | PC.NURSE ---
Patient arrived to ICU unit via stretcher from ED @02:33
[2025-03-12 04:58] LABS: Microscopic, Urine URINE MICROSCOPIC (MICROSCOPIC)
[2025-03-12 05:04] LABS: Appearance,Urine CLEAR (Clear); Bilirubin,Urine Negative (Negative); Blood, Urine Negative (Negative); Color,Urine YELLOW (Yellow); Glucose,Urine (UA) Negative (Negative); Ketones,Urine Negative (Negative); Leukocyte Esterase,Urine TRACE (Negative); Nitrate,Urine Negative (Negative); PH,Urine 6.5 (5.0-8.5); Protein,Urine Negative (Negative); Specific Gravity, Urine <= 1.005 (1.005-1.030); Urobilinogen,Urine 0.2 EU/dl (0.2)
[2025-03-12 05:10] LABS: RBC,Urine Occasional #/hpf (0-3); Squamous Epithelial Cell,Urine Occasional #/hpf (0-5)
[2025-03-12 06:04] LABS: Anion Gap 9.5 mEq/L (5-15); Blood Urea Nitrogen 11 mg/dl (7-17); Calcium 8.4 mg/dl (8.4-10.2); Carbon Dioxide 25 mmol/L (22.0-30.0); Chloride 85 mmol/L (98-107); Creatinine Clearance Estimated 51 mL/min (50-200); Estimated Glomerular Filt Rate 61 ml/min (>60); GFR (African American) 73 ML/MIN (>60); Glucose 95 mg/dl (74-100); Sodium 117 mmol/L (136-145)
[2025-03-12 06:13] LABS: Potassium 2.5 mmoL/L (3.5-5.1)
[2025-03-12] MEDS: MORPHINE 2MG/ML SYRINGE 2 MG IV ×3 (06:33→17:39)
[2025-03-12] MEDS: KCl 20mEq/100ml 100 ML 50 MEQ IV ×3 (06:45→11:39)
--- NOTE | 2025-03-12 08:19 | HMH.PHAINT1 ---
Pharmacy Intervention Comments: home medication list verified using list from outpatient pharmacy
[2025-03-12] MEDS: 0.9 % SODIUM CHLORIDE 1000ML 1,000 ML 50 ML IV (08:20)
--- NOTE | 2025-03-12 08:33 | P.HP_ITS ---
History of Present Illness *Admission Date: 03/12/25 *Reason for visit:: Pain from rib fractures *History of present illness: Ms. Culp is a 79 year old female patient of [facility], who typically sees Dr. Torres for her primary care. She fell at home yesterday morning in her bathroom after feeling weak. She states she was standing at her sink and felt like she was going to fall so she sat down. In the act of sitting down she fell into her tub. She did not loose consciousness and she did not hit her head. She did come to the ER for an evaluation and was found to have several right sided rib fractures. Intrestingly, she did not ave any lab evaluation dose at that time. She was discharged home and instructed to use Tylenol and Lidocaine patches for pain. She states that later in the day her pain became worse so she return to the ER. [facility] Disclaimer: The information contained in this section may have been updated after the patient was seen, as this information can be updated by other users. Medical History Hyponatremia Abnormal weight loss Anorexia Hypoglycemia Postobstructive diuresis Acute urinary retention Adult failure to thrive Nausea Chronic hyponatremia Multiple fractures of pelvis with disruption of pelvic ring Hypochloremia Falls Trochanteric bursitis, right hip Skin tear of left upper extremity Contusion of elbow, left Contusion of hip, left Trochanteric bursitis, left hip Closed fracture of greater trochanter of femur Pain around toenail, right foot Ingrown toenail of right foot Closed nondisplaced fracture of fifth right metatarsal bone MARY (acute kidney injury) Enteritis Hypothyroidism Foot fracture, right Polymyalgia rheumatica syndrome History of back pain History of left heart catheterization Hyperlipidemia Hypertension Cataract COVID-19 Closed fracture of fourth metatarsal of right foot Nondisplaced fracture of fifth right metatarsal bone with routine healing Myocardial infarction HLD (hyperlipidemia) CAD (coronary artery disease) Rheumatoid arthritis Surgical History H/O cataract removal with insertion of prosthetic lens History of heart artery stent Previous back surgery H/O thyroidectomy History of appendectomy History of hysterectomy History of tonsillectomy Family History Heart attack Cancer Hypertension Social History Smoking Status: Former smoker tobacco type: cigarettes packs per day: 1 years smoked: 40 how long ago did patient quit smokin years alcohol intake: never substance use type: denies use current occupational status: retired Travel in the last 8 weeks?: None caregiver/support person: Yes () household members: spouse housing: house marital status: 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 needs: No Contact w/someone who lives/traveled outside [place] past 30 days?: No Exposure to someone with infectious disease in past 14 days?: No Do you have a fever (greater than 100.4 F or 38 C)?: No Have you tested positive for COVID-19?: No Exposed to someone with COVID-19 in past 14 days?: No Do you have a sore throat?: No Do you have a cough?: No Do you have any weakness?: No Are you experiencing any nausea/vomitting?: No Do you have any diarrhea?: No Are you experiencing any unusual bleeding?: No Do you have any muscle aches/pain?: No Do you have any abdominal pain?: No Are you experiencing loss of taste or smell?: No Other Medical History Have you received the Flu Vaccine for this season: Yes Have you received the Pneumonia Vaccine: Yes Review of Systems Constitutional Constitutional: Denies chills and Denies fever(s) ENT Ears, Nose, Mouth, and Throat: Denies dizziness *Cardiovascular Cardiovascular: Denies chest pain and Denies dyspnea *Respiratory Respiratory: Denies cough and Denies dyspnea *Gastrointestinal Gastrointestinal: Denies abdominal pain *Genitourinary Genitourinary: Denies difficulty voiding *Musculoskeletal Musculoskeletal: Reports as per HPI *Neurologic Neurologic: Denies confusion and Denies dizziness Psychiatric Psychiatric: Denies confusion Meds Home Medications and Allergies Home Medications ?Medication ?Instructions ?Recorded ?Confirmed ?Type levothyroxine 112 mcg tablet 112 mcg PO DAILYDM 04/24/18 03/12/25 History simvastatin 20 mg tablet 20 mg PO HS 04/24/18 03/12/25 History hydroxychloroquine 200 mg tablet 200 mg PO DAILY 05/11/22 03/12/25 History prednisone 5 mg tablet 10 mg PO DAILY 07/01/22 03/12/25 History potassium chloride 10 mEq 10 meq PO DAILY #30 caps 06/02/24 03/12/25 Rx capsule,extended release acetaminophen 500 mg tablet 500 mg PO Q6HP PRN Mild Pain 07/15/24 03/12/25 History (Scale Score 1-4) aspirin 81 mg tablet,delayed 81 mg PO DAILY 07/15/24 03/12/25 History release cyclobenzaprine 5 mg tablet 5 mg PO HSP PRN muscle spasms 07/15/24 03/12/25 History melatonin 3 mg tablet 3 mg PO HSP Insomnia 07/15/24 03/12/25 History tramadol 50 mg tablet 50 mg PO Q6HP PRN Moderate Pain 07/15/24 03/12/25 History (Scale Score 5-6) tamsulosin 0.4 mg capsule 0.4 mg PO DAILY 30 days #30 caps 07/16/24 03/12/25 Rx lidocaine 5 % topical patch 1 patch topical DAILY #30 ea 03/11/25 03/12/25 Rx carvedilol 12.5 mg tablet 12.5 mg PO BID 03/12/25 03/12/25 History triamterene 37.5 1 tab PO DAILY 03/12/25 03/12/25 History mg-hydrochlorothiazide 25 mg tablet New Prescriptions to Start Prescriptions: Allergies Allergy/AdvReac Type Severity Reaction Status Date / Time Sulfa (Sulfonamide Allergy Unknown Hives Verified 12/04/24 14:16 Antibiotics) (SULFA (SULFONAMIDE ANTIBIOTICS)) codeine Allergy Vomiting Verified 12/04/24 14:16 Penicillins Allergy Hives Verified 12/04/24 14:16 Exam Data for Last 24 hours Vital signs and Labs for Last 24 Hours: Temp Pulse Resp BP Pulse Ox O2 Del Method 98.2 F 75 21 145/81 H 90 L Room Air 03/12/25 03:00 03/12/25 08:00 03/12/25 08:00 03/12/25 08:00 03/12/25 08:00 03/12/25 08:00 Laboratory Results - last 24 hr 03/12/25 01:02: WBC 10.6, RBC 3.32 L, Hgb 11.4 L, Hct 31.3 L, MCV 94.3, MCH 34.3 H, MCHC 36.4 H, RDW 12.4, Plt Count 225, MPV 9.4, Neut % (Auto) 74.1, Lymph % (Auto) 11.5, [place] % (Auto) 11.5 H, Eos % (Auto) 0.5, Baso % (Auto) 0.8, Neut # (Auto) 7.8, Lymph # (Auto) 1.2, [place] # (Auto) 1.2 H, Eos # (Auto) 0.1, Baso # (Auto) 0.1, Sodium 115 L, Potassium 2.9 L*, Chloride 84 L, Carbon Dioxide 25, Anion Gap 8.9, BUN 15, Creatinine 0.90, Estimated Creat Clear 49, Estimated GFR 61, Est GFR ( Amer) 73, Glucose 100, Calcium 8.1 L, Magnesium 1.6, Total Bilirubin 0.5, AST 32, ALT 19, Alkaline Phosphatase 61, Total Protein 5.9 L, Albumin 3.5, Globulin 2.4, Albumin/Globulin Ratio 1.5 03/12/25 04:35: Urine Sodium 69.0 03/12/25 04:46: Urine Color Yellow, Urine Appearance Clear, Urine pH 6.5, Ur Specific [place] <= 1.005, Urine Protein Negative, Urine Glucose (UA) Negative, Urine Ketones Negative, Urine Blood Negative, Urine Nitrate Negative, Urine Bilirubin Negative, Urine Urobilinogen 0.2, Ur Leukocyte Esterase Trace, Urine RBC Occasional, Urine WBC 3-5, Ur Squamous Epith Cells Occasional 03/12/25 05:25: Sodium 117 L, Potassium 2.5 L*, Chloride 85 L, Carbon Dioxide 25, Anion Gap 9.5, BUN 11 D, Creatinine 0.90, Estimated Creat Clear 51, Estimated GFR 61, Est GFR ( Amer) 73, Glucose 95, Calcium 8.4 I & O for Last 24 hours: Intake & Output 03/09/25 03/10/25 03/11/25 03/12/25 23:59 23:59 23:59 23:59 Output Total 800 / 800 Balance -800 / -800 Weight 154 lb 14.4 oz Constitutional Constitutional: no acute distress *Routine HEENT Exam Head: Present normocephalic Eye: Present EOMI and PERRL ENT: Present mucous membranes moist *Routine Neck Exam Neck: Present supple; Absent lymphadenopathy Routine Chest/Breast/Axilla Exam Chest wall: Present tenderness (right lateral) *Routine Respiratory Exam Respiratory: Present decreased breath sounds (right base) and CTA bilaterally *Routine Cardiovascular Exam Cardiovascular: Present RRR *Routine Abdominal Exam Abdominal: Present soft and normoactive bowel sounds; Absent tenderness *Routine Rectal Exam Rectal:: deferred *Routine Genitalia Exam Genitalia:: deferred *Routine Extremities Exam Extremities: Absent cyanosis, clubbing or edema *Routine Skin Exam Skin: Present warm; Absent rash *Routine Neurological Exam Neurological: Present alert and oriented X3 Assessment and Plan *Assessment and plan (1) Multiple fractures of ribs of right side: Status: Acute Qualifiers: Encounter type: initial encounter Fracture type: closed Qualified Code(s): S22.41XA - Multiple fractures of ribs, right side, initial encounter for closed fracture Category: Medical Code(s): S22.41XA - Multiple fractures of ribs, right side, initial encounter for closed fracture (2) Fall at home: Status: Acute Category: Medical Code(s): W19.XXXA - Unspecified fall, initial encounter; Y92.009 - Unspecified place in unspecified non-institutional (private) residence as the place of occurrence of the external cause (3) Acute hypokalemia: Status: Acute Category: Medical Code(s): E87.6 - Hypokalemia (4) Anemia: Status: Acute Category: Medical Code(s): D64.9 - Anemia, unspecified (5) Hyponatremia: Status: Acute Category: Medical Code(s): E87.1 - Hypo-osmolality and hyponatremia (6) Hypertension: Status: Acute Category: Medical Code(s): I10 - Essential (primary) hypertension (7) Hypothyroidism: Status: Chronic Category: Medical Code(s): E03.9 - Hypothyroidism, unspecified (8) Rheumatoid arthritis: Status: Acute Category: Medical Code(s): M06.9 - Rheumatoid arthritis, unspecified (9) CAD (coronary artery disease): Status: Acute Category: Medical Code(s): I25.10 - Atherosclerotic heart disease of [place] coronary artery without angina pectoris Plan Patient admitted to [facility] for further evaluation and treatment. Electrolytes are being replaced. Continue cardiac monitoring. Unable to find cardiac enzymes, mag and phos results, will check them now and recheck an EKG.
[2025-03-12 09:16] LABS: Hematocrit 32.1 % (37.0-47.0); Hemoglobin 11.4 g/dL (12.2-16.2)
[2025-03-12 09:26] LABS: Anion Gap 6.7 mEq/L (5-15); Blood Urea Nitrogen 11 mg/dl (7-17); Calcium 8.2 mg/dl (8.4-10.2); Carbon Dioxide 27 mmol/L (22.0-30.0); Chloride 86 mmol/L (98-107); Creatine Kinase 133 U/L (30-135); Creatinine Clearance Estimated 51 mL/min (50-200); Estimated Glomerular Filt Rate 69 ml/min (>60); GFR (African American) 84 ML/MIN (>60); Glucose 97 mg/dl (74-100); Magnesium 1.5 mg/dl (1.6-2.3); Phosphorous 2.8 mg/dl (2.5-4.5); Sodium 117 mmol/L (136-145)
[2025-03-12 09:31] LABS: Potassium 2.7 mmoL/L (3.5-5.1)
[2025-03-12 09:37] LABS: CKMB Relative Index 2.9 U/L (0-4.0); Creatine Kinase MB 3.9 ng/ml (0.0-2.03); Troponin I 0.02 ng/ml (0.00-0.034)
[2025-03-12] MEDS: PROMETHAZINE HCL 25MG/ML 1ML VIAL 12.5 MG IV (10:13)
[2025-03-12] MEDS: 0.9 % SODIUM CHLORIDE 25 ML 100 ML IV (10:13)
[2025-03-12] MEDS: LIDOCAINE 5% TRANSDERMAL PATCH 1 EACH TD (10:42)
[2025-03-12] MEDS: ENOXAPARIN 40MG/0.4ML SYRINGE 40 MG SUBCUT (10:43)
[2025-03-12] MEDS: LEVOTHYROXINE 112MCG (0.112MG) TAB 112 MCG PO (10:43)
[2025-03-12] MEDS: FAMOTIDINE 20MG TABLET 20 MG PO ×2 (10:44→20:44)
--- NOTE | 2025-03-12 11:22 | HMH.PTEV ---
Physical Therapy Evaluation Rehab PT IP Evaluation Start: 03/12/25 10:30 Freq: ONCE Status: Active Protocol: Document 03/12/25 11:14 JEAN (Rec: 03/12/25 11:22 JEAN [id number]) Subjective/History History History Per H&P: Ms. Culp is a 79 year old female patient of [facility], who typically sees Dr. Torres for her primary care. She fell at home yesterday morning in her bathroom after feeling weak. She states she was standing at her sink and felt like she was going to fall so she sat down. In the act of sitting down she fell into her tub. She did not loose consciousness and she did not hit her head. She did come to the ER for an evaluation and was found to have several right sided rib fractures. Intrestingly, she did not ave any lab evaluation dose at that time. She was discharged home and instructed to use Tylenol and Lidocaine patches for pain. She states that later in the day her pain became worse so she return to the ER. Subjective Subjective Pt lethargic throughout evaluation. Pt's present to assist with providing history. - Pt lives in a single-story home with 3 BEBA - Pt normally IND with mobility but does have a history of falling. - Pt's is available at home as needed. - Pt's reports limited mobility since her fall d/t extreme pain New diagnosis of cancer in past 12 No months? [facility] How much help from another person do you currently need... Turning from your back to your side A lot while in a flat bed without using bedrails? Moving from lying on back to sitting on A lot the side of a flat bed without using bedrails? Moving to and from a bed to a chair ( A lot including a wheelchair)? Standing up from a chair using your arms A lot ? (e.g., wheelchair, bedside chair) Walking in hospital room? A lot Climbing 3-5 steps with a railing? A lot Mobility Score 12 Mobility Level [facility] Mobility Calculator Mobility 4 Move to chair/ commode Rehab PT IP Eval Objective Appearance Patient Behavior Appropriate,Fatigued Patient Orientation Person,Situation Difficulty following instructions mild Speech Pattern Delayed Ambulation Patient Able to Ambulate No Balance Ability to Arise Able, uses arms to help Sitting Balance Leans or slides in chair Transfers Bed Transfer Ability Moderate x 1 (50% assist) Rehab PT IP prob,goals,plan Problems Date of Evaluation: 03/12/25 PT IP Problems Bed Mobility,Transfers,Gait, Balance,Self care,Safety Rehab Potential Rehab Potential Good Plan PT Intervention Plan Bed Mobility,Transfers,Gait, Balance,Self care,Safety, Therapeutic Exercise Other Intervention Plan 1-2 times PT Plan Frequency Daily Duration LOS Discharge Goals Bed Transfer Ability Minimal x 1 (25% assist) Sit to Stand Chair Transfer Ability Minimal x 1 (25% assist) Ambulation Assistive Device Rolling Walker Ambulation Distance (feet) 10 Discharge Plan PT Discharge Plan Initial physical therapy evaluation performed. Patient presents below baseline at this time in functional mobility, transfers, and strength. Mobility assessment limited by pt's rib pain. Pt was able to sit up in bed with Mod A for ~2 seconds before returning to supine d/t reports of high pain. Pt not safe to return home at this time d/t current level of functional mobility. PT recommending short-term rehabilitation stay upon d/c from [facility] to maximize safety, improve mobility, and decrease caregiver burden. Pt would benefit from skilled PT while at [facility] to prevent further functional decline and maximize safety with mobility. Eval Complexity Eval Charge Codes 20143 - Moderate Complexity PHYSICIAN CERTIFICATION: I certify the specified therapy services for Andry Culp are required, authorized, and reviewed every 30 days.
[2025-03-12] MEDS: LISINOPRIL 20MG TABLET 20 MG PO (13:59)
--- NOTE | 2025-03-12 14:18 | HMH.OTEV ---
OT Inpatient Evaluation Rehab OT IP Evaluation Start: 03/12/25 10:31 Freq: ONCE Status: Active Protocol: Document 03/12/25 14:05 DEENA (Rec: 03/12/25 14:17 DEENA [id number]) Rehab OT IP Assessment Subjective History Per H&P: Ms. Culp is a 79 year old female patient of [facility], who typically sees Dr. Torres for her primary care. She fell at home yesterday morning in her bathroom after feeling weak. She states she was standing at her sink and felt like she was going to fall so she sat down. In the act of sitting down she fell into her tub. She did not loose consciousness and she did not hit her head. She did come to the ER for an evaluation and was found to have several right sided rib fractures. Intrestingly, she did not ave any lab evaluation dose at that time. She was discharged home and instructed to use Tylenol and Lidocaine patches for pain. She states that later in the day her pain became worse so she return to the ER. Subjective Ow! Pt lethargic throughout evaluation. Pt's present to assist with providing history. - Pt lives in a single-story home with 3 BEBA - Pt normally IND with functional mobility but does have a history of falling. - Pt's is available at home as needed. -Pt is usually ind in ADLs and needs assist in IADLs and does not drive - Pt's reports limited mobility since her fall d/t extreme pain Nursing was changing bedsheets when therapy entered room. Therapy assisted in changing bed sheets and brief of pt. Pt was orient x3. Pt was Max A for rolling side to side for changing sheets and placing brief. Pt has airwick placement. Pt demo pain and cried out mx times. Pt demo some confusion during eval. pt was left with call light, nursing and family re-entered room after bed changing. Objective Patient Orientation Person,Place,Birthday Shoulder ROM Limitations Pain Bed Mobility bed mobility-scooting,bed mobility - rolling Assist Level Maximum x 2 (75% assist) Decrease in Endurance Yes Rehab OT IP prob,goals,plan Problems Date of Evaluation: 03/12/25 OT IP Problems Bed Mobility,Transfers,Balance ,Self care,Safety Rehab Potential Rehab Potential Good Equipment Needs Assistive Devices Standard Walker Plan OT intervention Plan Bed Mobility,Transfers,Balance ,Self care,Safety,Therapeutic Exercise OT Plan Frequency Daily Duration LOS Discharge Goals Bed Mobility Ability Assistance x1 Self care skills fully toilet trained,dressing/ undressing independently Feeding Ability Assist with Tray Set Up Performing Toilet Hygiene Ability Moderate Assistance Commode/Toilet Transfer Assistive Raised Toilet Seat,Grab Bars Devices Decrease in Endurance No Discharge Plan OT Discharge Plan At this time, pt would benefit from skilled OT services and interventions while admitted at [facility] to address functional limitations in occupational performance including endurance, self-care, and safety. Once DC from [facility], pt would benefit from skilled OT services and interventions with rehab to address functional limitations in occupational performance for increase endurance, UB strength, safety, and completion of ADLs . Eval Complexity Eval Charge Codes 02077 - Moderate Complexity PHYSICIAN CERTIFICATION: I certify the specified therapy services for Andry Culp are required, authorized, and reviewed every 30 days.
--- NOTE | 2025-03-12 14:52 | SW/DCPLANNER ---
Addendum entered by Apple Paz 03/13/25 10:27: Patient has been accepted to [facility] level of care and can admit Sunday03/15/25. I have updated patient, family and MD. Original Note: I spoke w/ patient's regarding plans once medically stable for discharge. PT/OT evaluated patient and recommended SNF level of care. Per patient has been to [facility] in the past and he prefers she return their for therapy. Patient information has been faxed to [facility]/ Eligio Singh.
[2025-03-12] MEDS: 0.9% NaCl w/40mEq KCL 1,000 ML 75 ML IV (15:44)
--- NOTE | 2025-03-12 20:30 | PC.NURSE ---
Pt sating 88-89% on RA, 2LNC applied for comfort at this time. Pt now sating 95-97%
[2025-03-12] MEDS: PRAVASTATIN 40MG TAB 40 MG PO (20:45)
[2025-03-13] VITALS (7 sets, daily range): BP systolic 96–157; BP diastolic 55–76; PULSE 66–90; RESP 14–18; TEMP 36.5–37.6; O2SAT 92–99; BMI 26.4; BMI 26.2
[2025-03-13] MEDS: 0.9% NaCl w/40mEq KCL 1,000 ML 75 ML IV ×2 (04:31→15:54)
[2025-03-13] MEDS: ONDANSETRON 4MG/2ML VIAL 4 MG IV ×2 (06:12→10:00)
[2025-03-13] MEDS: ACETAMINOPHEN 500MG TAB 1000 MG PO ×2 (06:18→10:00)
--- NOTE | 2025-03-13 06:29 | PC.NURSE ---
Pt is alert and oriented x4 at this time however has had quite a bit of confusion this shift. Pt has denied pain for the most part of the shift but did admit to right sided pain when she coughs, Pt was treated with tylenol. Pt c/o nausea this am and was also treated per DEC. Pt lung sounds remain diminished.
[2025-03-13 06:33] LABS: Basophils # 0.1 K/mm3 (0-0.2); Basophils % 0.7 % (0.1-2.0); Eosinophils % 0.3 % (0.1-12.0); Hematocrit 36.2 % (37.0-47.0); Immature Granulocytes # 0.15 10^3uL; Immature Granulocytes % 1.1 %; Lymphocytes % 7.4 % (10-50); Mean Corpuscular HGB Conc 35.6 g/dL (31.8-35.4); Mean Corpuscular Hemoglobin 34.2 pg (27.0-31.2); Mean Platelet Volume 9.3 fl (7.4-10.4); Monocytes # 1.1 K/mm3 (0.1-1.0); Monocytes % 8.2 % (1.7-9.3); Neutrophils # 10.9 K/mm3 (1.8-7.8); Neutrophils % 82.3 % (37.0-80.0); Nucleated Red Blood Cells # 0 10^3/uL; Nucleated Red Blood Cells % 0 %; Platelet Count 232 K/mm3 (142-424); Red Blood Count 3.77 M/mm3 (4.20-5.40); Red Cell Distribution Width 12.6 % (11.5-17.5); Red Cell Distribution Width-SD 44.6 fL; White Blood Count 13.2 K/mm3 (4.8-10.8)
[2025-03-13 06:37] LABS: Anion Gap 10.4 mEq/L (5-15); Blood Urea Nitrogen 8 mg/dl (7-17); Calcium 8.3 mg/dl (8.4-10.2); Carbon Dioxide 26 mmol/L (22.0-30.0); Chloride 89 mmol/L (98-107); Creatinine Clearance Estimated 53 mL/min (50-200); Estimated Glomerular Filt Rate 81 ml/min (>60); GFR (African American) 98 ML/MIN (>60); Glucose 80 mg/dl (74-100); Potassium 3.4 mmoL/L (3.5-5.1); Sodium 122 mmol/L (136-145)
[2025-03-13] MEDS: LEVOTHYROXINE 112MCG (0.112MG) TAB 112 MCG PO (08:06)
--- NOTE | 2025-03-13 08:06 | P.PN_ITS ---
Subjective *Date: 03/13/25 *Time: 08:06 Interval history: Patient states she feels a little better this morning. Supplemental oxygen started overnight. Medical Exam Vital signs and Labs for Last 24 Hours: Vital Signs Temp Pulse Pulse Resp BP BP Pulse Ox 03/13/25 06:37 03/13/25 04:54 03/13/25 04:00 98.7 F 86 14 157/76 H 95 03/13/25 04:00 80 03/13/25 03:00 03/13/25 01:00 03/13/25 00:00 80 03/13/25 00:00 99.7 F H 88 16 130/61 95 03/12/25 23:00 03/12/25 21:00 03/12/25 20:00 89 L 03/12/25 20:00 90 03/12/25 20:00 98.7 F 87 16 151/72 H 94 L 03/12/25 18:32 03/12/25 17:00 03/12/25 16:00 80 03/12/25 16:00 99.3 F 87 16 166/88 H 90 L 03/12/25 15:00 03/12/25 14:00 85 16 123/70 96 03/12/25 13:00 03/12/25 12:00 74 03/12/25 12:00 98.5 F 77 14 142/116 H 91 L 03/12/25 11:00 03/12/25 10:00 75 16 162/89 H 90 L 03/12/25 09:00 03/12/25 08:25 O2 Del Method O2 Flow Rate 03/13/25 06:37 Nasal Cannula 1 03/13/25 04:54 Nasal Cannula 2 03/13/25 04:00 Nasal Cannula 2 03/13/25 04:00 03/13/25 03:00 Nasal Cannula 2 03/13/25 01:00 Nasal Cannula 2 03/13/25 00:00 03/13/25 00:00 Nasal Cannula 3 03/12/25 23:00 Nasal Cannula 2 03/12/25 21:00 Nasal Cannula 2 03/12/25 20:00 Room Air 03/12/25 20:00 03/12/25 20:00 Nasal Cannula 2 03/12/25 18:32 Room Air 03/12/25 17:00 Room Air 03/12/25 16:00 03/12/25 16:00 Room Air 03/12/25 15:00 Room Air 03/12/25 14:00 Room Air 03/12/25 13:00 Room Air 03/12/25 12:00 03/12/25 12:00 Room Air 03/12/25 11:00 Room Air 03/12/25 10:00 Room Air 03/12/25 09:00 Room Air 03/12/25 08:25 Room Air Intake and Output 03/12/25 03/13/25 03/13/25 23:59 07:59 15:59 Intake Total 490 / 490 Output Total 425 / 425 Balance 65 / 65 Intake: Intake, Oral Amount 240 / 240 Intake, Total IV Amount 250 / 250 KCl 20mEq/100ml 100 ml @ 50 mls 250 / 250 /hr IV Q2H [facility] Rx#:[id number] Output: Output, Urine Amount 425 / 425 Other: Number of Unmeasured Voids 0 Weight 158 lb 9.6 oz Patient Weight 03/13/25 23:59 Weight 158 lb 9.6 oz Laboratory Results - last 24 hr 03/12/25 04:35: Urine Sodium 69.0 03/12/25 09:08: Hgb 11.4 L, Hct 32.1 L, Sodium 117 L, Potassium 2.7 L*, Chloride 86 L, Carbon Dioxide 27, Anion Gap 6.7, BUN 11, Creatinine 0.80, Estimated Creat Clear 51, Estimated GFR 69, Est GFR ( Amer) 84, Glucose 97, Calcium 8.2 L , Phosphorus 2.8, Magnesium 1.5 L, Total Creatine Kinase 133, CK-MB (CK-2) 3.9 H , CK-MB (CK-2) Rel Index 2.9, Troponin I 0.02 03/13/25 06:07: WBC 13.2 H, RBC 3.77 L, Hgb 13.0 D, Hct 36.2 L, MCV 96.0, MCH 34.2 H, MCHC 35.6 H, RDW 12.6, Plt Count 232, MPV 9.3, Neut % (Auto) 82.3 H, Lymph % (Auto) 7.4 L, [place] % (Auto) 8.2, Eos % (Auto) 0.3, Baso % (Auto) 0.7, Neut # (Auto) 10.9 H, Lymph # (Auto) 1.0, [place] # (Auto) 1.1 H, Eos # (Auto) 0.0, Baso # (Auto) 0.1, Sodium 122 L, Potassium 3.4 L D, Chloride 89 L, Carbon Dioxide 26, Anion Gap 10.4, BUN 8 D, Creatinine 0.70, Estimated Creat Clear 53, Estimated GFR 81, Est GFR ( Amer) 98, Glucose 80, Calcium 8.3 L I & O for Labs for Last 24 Hours: Intake & Output 03/10/25 03/11/25 03/12/25 03/13/25 23:59 23:59 23:59 23:59 Intake Total 1419 / 1909 490 / 490 Output Total 800 / 1050 425 / 425 Balance 619 / 859 65 / 65 Weight 154 lb 14.4 oz 158 lb 9.6 oz Constitutional: Present no acute distress Respiratory: Present decreased breath sounds (right base) and CTA bilaterally Cardiac: Present Reg Rate and Rhythm GI: Present normal bowel sounds; Absent tenderness Extremities: Present normal inspection and full ROM Skin: Present intact; Absent erythema Neuro: Present Grossly Intact and moves all extremities Assessment and Plan *Assessment and plan (1) Multiple fractures of ribs of right side: Status: Acute Qualifiers: Encounter type: initial encounter Fracture type: closed Qualified Code(s): S22.41XA - Multiple fractures of ribs, right side, initial encounter fo r closed fracture Category: Medical Code(s): S22.41XA - Multiple fractures of ribs, right side, initial encounter for closed fracture (2) Fall at home: Status: Acute Category: Medical Code(s): W19.XXXA - Unspecified fall, initial encounter; Y92.009 - Unspecified place in unspecified non-institutional (private) residence as the place of occurrence of the external cause (3) Acute hypokalemia: Status: Acute Category: Medical Code(s): E87.6 - Hypokalemia (4) Anemia: Status: Acute Category: Medical Code(s): D64.9 - Anemia, unspecified (5) Hyponatremia: Status: Acute Category: Medical Code(s): E87.1 - Hypo-osmolality and hyponatremia (6) Hypertension: Status: Acute Category: Medical Code(s): I10 - Essential (primary) hypertension (7) Hypothyroidism: Status: Chronic Category: Medical Code(s): E03.9 - Hypothyroidism, unspecified (8) Rheumatoid arthritis: Status: Acute Category: Medical Code(s): M06.9 - Rheumatoid arthritis, unspecified (9) CAD (coronary artery disease): Status: Acute Category: Medical Code(s): I25.10 - Atherosclerotic heart disease of [place] coronary artery without angina pectoris (10) Hypoxia: Status: Acute Category: Medical Code(s): R09.02 - Hypoxemia Plan Unable to find EKG that was ordered yesterday. Electrolytes have improved, continue replacement. Care management is working on placement for short term rehab. Resume [facility] today.
--- NOTE | 2025-03-13 08:20 | ECG_ITS ---
APPROVED REPORT Exam: Resting ECG HR:78 bpm ECG Measurements Heart Rate 78 AXES VT 227 P 74 QRSd 90 QRS 0 QT 409 T 20 QTc 442 Conclusion SINUS RHYTHM WITH FIRST DEGREE AV BLOCK WITH OCCASIONAL SUPRAVENTRICULAR PREMATURE COMPLEXES LOW QRS VOLTAGE IN PRECORDIAL LEADS [QRS DEFLECTION < 1.0 mV IN CHEST LEADS] ANTEROSEPTAL MYOCARDIAL INFARCTION , PROBABLY OLD [40+ ms Q WAVE IN V1-V4] ABNORMAL ECG UNCONFIRMED REPORT Electronically signed by : Vicente Mary MD 03/14/2025 14:36:26
[2025-03-13] MEDS: LIDOCAINE 5% TRANSDERMAL PATCH 1 EACH TD (09:12)
[2025-03-13] MEDS: FAMOTIDINE 20MG TABLET 20 MG PO ×2 (09:13→20:13)
[2025-03-13] MEDS: ENOXAPARIN 40MG/0.4ML SYRINGE 40 MG SUBCUT (09:13)
[2025-03-13] MEDS: LISINOPRIL 20MG TABLET 20 MG PO (09:13)
[2025-03-13] MEDS: HYDROXYCHLOROQUINE SULFATE 200MG TABLET 200 MG PO (09:13)
[2025-03-13] MEDS: CARVEDILOL 12.5MG TABLET 12.5 MG PO ×2 (09:13→20:10)
[2025-03-13] MEDS: IPRATROPIUM/ALBUTEROL 3 ML NEB IH (13:30)
--- NOTE | 2025-03-13 14:40 | HMH.PTWOUND ---
Rehab Inpt Wound Evaluation Rehab IP Wound Evaluation Start: 03/12/25 03:19 Freq: ONCE Status: Active Protocol: Document 03/13/25 14:36 PHOALAN (Rec: 03/13/25 14:39 PHORBRIAN [id number]) Rehab PT Wound Assessment Subjective Subjective Per H&P: Ms. Culp is a 79 year old female patient of [facility], who typically sees Dr. Torres for her primary care. She fell at home yesterday morning in her bathroom after feeling weak. She states she was standing at her sink and felt like she was going to fall so she sat down. In the act of sitting down she fell into her tub. She did not loose consciousness and she did not hit her head. She did come to the ER for an evaluation and was found to have several right sided rib fractures. Interestingly, she did not have any lab evaluation dose at that time. She was discharged home and instructed to use Tylenol and Lidocaine patches for pain. She states that later in the day her pain became worse so she return to the ER. Pt presented with multiple small skin tears to L lower leg upon admission. Plan/Recommendation Comment Nsg staff is currently performing all dressing changes to L lower leg as indicated and there is no need for bedside debridement at this time. Thank you for involving the wound care team in the care of this patient. PHYSICIAN CERTIFICATION: I certify the specified therapy services for Andry Culp are required, authorized, and reviewed every 30 days.
--- NOTE | 2025-03-13 15:36 | PC.NURSE ---
PATIENT HAS BEEN ALERT AND ORIENTED X4 THROUGHOUT MOST OF THE SHIFT, WITH PERIODS OF CONFUSION. LIDOCAINE PATCH APPLIED THIS MORNING FOR PAIN IN THE RIGHT BACK/RIB AREA AND PO TYLENOL ADMINISTERED. PATIENT C/O NAUSEA THIS AFTERNOON AND WAS TREATED PER DEC. PATIENT HAS BEEN UNABLE TO COUGH UP SPUTUM, REQUESTED BREATHING TX ORDER FROM MD.
[2025-03-13] MEDS: POTASSIUM CHLORIDE 10MEQ CAPSULE.ER 10 MEQ PO ×2 (18:53→20:10)
[2025-03-13] MEDS: PRAVASTATIN 40MG TAB 40 MG PO (20:10)
[2025-03-13] MEDS: TAMSULOSIN 0.4MG CAPSULE 0.4 MG PO (20:10)
[2025-03-14] VITALS (7 sets, daily range): BP systolic 135–161; BP diastolic 79–92; PULSE 74–93; RESP 14–20; TEMP 36.7–36.9; O2SAT 94–97; BMI 25.7
[2025-03-14] MEDS: ACETAMINOPHEN 500MG TAB 1000 MG PO ×2 (01:31→08:39)
[2025-03-14] MEDS: 0.9% NaCl w/40mEq KCL 1,000 ML 75 ML IV (05:42)
[2025-03-14 06:29] LABS: Osmolality, Urine 234 mOsmol/kg (.)
[2025-03-14] MEDS: LEVOTHYROXINE 112MCG (0.112MG) TAB 112 MCG PO (06:46)
[2025-03-14 07:03] LABS: Basophils # 0.1 K/mm3 (0-0.2); Basophils % 0.6 % (0.1-2.0); Eosinophils # 0.2 Kmm3 (0.0-0.4); Eosinophils % 1.9 % (0.1-12.0); Hematocrit 32.4 % (37.0-47.0); Hemoglobin 11.5 g/dL (12.2-16.2); Immature Granulocytes # 0.12 10^3uL; Immature Granulocytes % 1.4 %; Lymphocytes # 1.1 K/mm3 (0.7-4.5); Lymphocytes % 12.7 % (10-50); Mean Corpuscular HGB Conc 35.5 g/dL (31.8-35.4); Mean Corpuscular Hemoglobin 34.5 pg (27.0-31.2); Mean Corpuscular Volume 97.3 fl (81-99); Mean Platelet Volume 9.3 fl (7.4-10.4); Monocytes # 0.9 K/mm3 (0.1-1.0); Monocytes % 10.4 % (1.7-9.3); Neutrophils # 6.4 K/mm3 (1.8-7.8); Nucleated Red Blood Cells # 0 10^3/uL; Nucleated Red Blood Cells % 0 %; Platelet Count 205 K/mm3 (142-424); Red Blood Count 3.33 M/mm3 (4.20-5.40); Red Cell Distribution Width 12.9 % (11.5-17.5); Red Cell Distribution Width-SD 46.4 fL; White Blood Count 8.8 K/mm3 (4.8-10.8)
[2025-03-14 07:12] LABS: Anion Gap 8.6 mEq/L (5-15); Blood Urea Nitrogen 10 mg/dl (7-17); Calcium 8.3 mg/dl (8.4-10.2); Carbon Dioxide 21 mmol/L (22.0-30.0); Chloride 100 mmol/L (98-107); Creatinine Clearance Estimated 51 mL/min (50-200); Estimated Glomerular Filt Rate 81 ml/min (>60); GFR (African American) 98 ML/MIN (>60); Glucose 81 mg/dl (74-100); Potassium 4.6 mmoL/L (3.5-5.1); Sodium 125 mmol/L (136-145)
[2025-03-14] MEDS: HYDROXYCHLOROQUINE SULFATE 200MG TABLET 200 MG PO (08:22)
[2025-03-14] MEDS: CARVEDILOL 12.5MG TABLET 12.5 MG PO ×2 (08:22→20:13)
[2025-03-14] MEDS: POTASSIUM CHLORIDE 10MEQ CAPSULE.ER 10 MEQ PO ×2 (08:22→20:13)
[2025-03-14] MEDS: FAMOTIDINE 20MG TABLET 20 MG PO (08:23)
[2025-03-14] MEDS: LISINOPRIL 20MG TABLET 20 MG PO (08:23)
[2025-03-14] MEDS: LIDOCAINE 5% TRANSDERMAL PATCH 1 EACH TD (08:25)
[2025-03-14] MEDS: ENOXAPARIN 40MG/0.4ML SYRINGE 40 MG SUBCUT (08:25)
[2025-03-14] MEDS: ONDANSETRON 4MG/2ML VIAL 4 MG IV (09:57)
[2025-03-14] MEDS: IPRATROPIUM/ALBUTEROL 3 ML NEB IH (10:10)
[2025-03-14 12:25] LABS: Thyroid Stimulating Hormone 4.57 uIU/mL (0.465-4.68)
--- NOTE | 2025-03-14 13:17 | P.PN_ITS ---
Subjective *Date: 03/14/25 *Time: 13:17 Interval history: Transfer to [place] is planned for tomorrow. Discussed ongoing balance issues with patient and . Persistant electrolyte imbalance, with low sodium and potassium. She takes potassium at home but does not know the dose. Potassium 4.6 today with sodium of 125. Past CT reviewed and showed normal adrenal glands. Check TSH. Medical Exam Vital signs and Labs for Last 24 Hours: Vital Signs Temp Pulse Pulse Resp BP Pulse Ox O2 Del Method 03/14/25 12:00 98.3 F 76 18 155/85 H 95 Room Air 03/14/25 10:58 Room Air 03/14/25 10:10 78 03/14/25 10:10 74 03/14/25 10:10 95 Room Air 03/14/25 09:00 Room Air 03/14/25 08:00 98.1 F 81 18 156/85 H 95 Room Air 03/14/25 07:19 Room Air 03/14/25 06:30 Room Air 03/14/25 05:00 Room Air 03/14/25 04:00 98.1 F 82 14 143/79 H 95 Room Air 03/14/25 03:00 Room Air 03/14/25 01:00 Room Air 03/14/25 00:00 98.2 F 74 14 135/90 97 Room Air 03/13/25 23:00 Room Air 03/13/25 20:50 Room Air 03/13/25 20:00 Room Air 03/13/25 19:40 98.3 F 77 14 132/71 95 Room Air 03/13/25 18:27 Nasal Cannula 03/13/25 17:00 Room Air 03/13/25 16:00 98.2 F 74 16 126/58 L 99 Nasal Cannula 03/13/25 15:00 Nasal Cannula 03/13/25 13:31 75 03/13/25 13:31 79 03/13/25 13:31 96 Nasal Cannula O2 Flow Rate 03/14/25 12:00 03/14/25 10:58 03/14/25 10:10 03/14/25 10:10 03/14/25 10:10 03/14/25 09:00 03/14/25 08:00 03/14/25 07:19 03/14/25 06:30 03/14/25 05:00 03/14/25 04:00 03/14/25 03:00 03/14/25 01:00 03/14/25 00:00 03/13/25 23:00 03/13/25 20:50 03/13/25 20:00 03/13/25 19:40 03/13/25 18:27 2 03/13/25 17:00 03/13/25 16:00 1 03/13/25 15:00 03/13/25 13:31 03/13/25 13:31 03/13/25 13:31 1 Intake and Output 03/14/25 03/14/25 03/14/25 03:59 11:59 19:59 Intake Total 550 / 3030 340 / 3030 Balance 550 / 2630 340 / 2630 Intake: Intake, Oral Amount 340 / 680 Intake, Total IV Amount 550 / 2350 0.9% NaCl w/40mEq KCL 1,000 ml 550 / 2350 @ 75 mls/hr IV .[id number] [facility] Rx# :[id number] Other: Number of Unmeasured Voids 1 Number of Bowel Movements 1 Weight 154 lb 3.2 oz Laboratory Results - last 24 hr 03/12/25 04:35: Urine Osmolality 234 03/14/25 06:38: WBC 8.8 D, RBC 3.33 L, Hgb 11.5 L, Hct 32.4 L, MCV 97.3, MCH 34.5 H, MCHC 35.5 H, RDW 12.9, Plt Count 205, MPV 9.3, Neut % (Auto) 73.0, Lymph % (Auto) 12.7, [place] % (Auto) 10.4 H, Eos % (Auto) 1.9, Baso % (Auto) 0.6, Neut # (Auto) 6.4, Lymph # (Auto) 1.1, [place] # (Auto) 0.9, Eos # (Auto) 0.2, Baso # (Auto) 0.1, Sodium 125 L, Potassium 4.6 D, Chloride 100, Carbon Dioxide 21 L, Anion Gap 8.6, BUN 10, Creatinine 0.70, Estimated Creat Clear 51, Estimated GFR 81, Est GFR ( Amer) 98, Glucose 81, Calcium 8.3 L I & O for Labs for Last 24 Hours: Intake & Output 03/12/25 03/13/25 03/14/25 03/15/25 11:59 11:59 11:59 11:59 Intake Total 220 / 220 1689 / 1689 3030 / 3030 Output Total 800 / 800 1025 / 1025 400 / 400 Balance -580 / -580 664 / 664 2630 / 2630 Weight 154 lb 14.4 oz 158 lb 9.6 oz 154 lb 3.2 oz Head: Present normocephalic Neck: Present normal inspection Respiratory: Present CTA bilaterally; Absent respiratory distress Cardiac: Present Reg Rate and Rhythm GI: Present soft; Absent tenderness Rectal (female): Present deferred (female): Present deferred Extremities: Absent edema Skin: Present intact Neuro: Present alert and oriented x 3 Assessment and Plan *Assessment and plan (1) Multiple fractures of ribs of right side: Status: Acute Qualifiers: Encounter type: initial encounter Fracture type: closed Qualified Code(s): S22.41XA - Multiple fractures of ribs, right side, initial encounter for closed fracture Category: Medical Code(s): S22.41XA - Multiple fractures of ribs, right side, initial encounter for closed fracture (2) Fall at home: Status: Acute Category: Medical Code(s): W19.XXXA - Unspecified fall, initial encounter; Y92.009 - Unspecified place in unspecified non-institutional (private) residence as the place of occurrence of the external cause (3) Hyponatremia: Status: Acute Category: Medical Code(s): E87.1 - Hypo-osmolality and hyponatremia (4) Hypertension: Status: Acute Category: Medical Code(s): I10 - Essential (primary) hypertension (5) Rheumatoid arthritis: Status: Acute Category: Medical Code(s): M06.9 - Rheumatoid arthritis, unspecified (6) Anemia: Status: Acute Category: Medical Code(s): D64.9 - Anemia, unspecified (7) Acute hypokalemia: Status: Acute Category: Medical Code(s): E87.6 - Hypokalemia Plan Saline lock. Continue p.o. potassium. Transfer in AM. Check TSH.
--- NOTE | 2025-03-14 17:04 | PC.NURSE ---
patient has remained A&Ox4 throughout this shift. patient received breathing tx earlier in the shift to help loosen secretions which seemed effective. patient's pain has been controlled with lidocaine patch and PO tylenol. gave zofran once early in the shift for nausea. Encouraging PO intake, family brought patient chicken tenders for dinner and patient states she is going to attempt to eat them although she has not had much of an appetite. Remains on RA, vss.
[2025-03-14] MEDS: TAMSULOSIN 0.4MG CAPSULE 0.4 MG PO (20:13)
[2025-03-14] MEDS: PRAVASTATIN 40MG TAB 40 MG PO (20:13)
[2025-03-15] VITALS: BP 164/88; PULSE 85; RESP 22; TEMP 36.9; O2SAT 97
[2025-03-15 04:00] VITALS: BP 155/82; PULSE 85; RESP 20; TEMP 36.9; O2SAT 96; BMI 26.2
--- NOTE | 2025-03-15 04:38 | PC.NURSE ---
Pt has remained alert and oriented with intermittent confusion. Lidocaine patch removed. She has not complained of any pain so far this shift. Plan to discharge to [place] today. Resting with bed alarm in place.
[2025-03-15] MEDS: LEVOTHYROXINE 112MCG (0.112MG) TAB 112 MCG PO (06:06)
[2025-03-15] MEDS: ONDANSETRON 4MG/2ML VIAL 4 MG IV (06:06)
[2025-03-15 08:00] VITALS: BP 164/92; PULSE 83; RESP 18; TEMP 36.7; O2SAT 95
[2025-03-15] MEDS: LIDOCAINE 5% TRANSDERMAL PATCH 1 EACH TD (08:16)
[2025-03-15] MEDS: ENOXAPARIN 40MG/0.4ML SYRINGE 40 MG SUBCUT (08:16)
[2025-03-15] MEDS: POTASSIUM CHLORIDE 10MEQ CAPSULE.ER 10 MEQ PO (08:17)
[2025-03-15] MEDS: HYDROXYCHLOROQUINE SULFATE 200MG TABLET 200 MG PO (08:18)
[2025-03-15] MEDS: LISINOPRIL 20MG TABLET 20 MG PO (08:18)
[2025-03-15] MEDS: FAMOTIDINE 20MG TABLET 20 MG PO (08:18)
[2025-03-15] MEDS: CARVEDILOL 12.5MG TABLET 12.5 MG PO (08:18)
--- NOTE | 2025-03-15 09:40 | EXP.ACUTE.PN ---
Subjective *Date: 03/15/25 *Time: 09:40 Interval history: The plan is to send her to [place] today. Her is concerned about her being a bit disoriented this morning. She is in no acute distress. Electrolytes will be rechecked. Medical Exam Vital signs and Labs for Last 24 Hours: Vital Signs Temp Pulse Pulse Resp BP Pulse Ox O2 Del Method 03/15/25 08:00 98.1 F 83 18 164/92 H 95 Room Air 03/15/25 06:31 Room Air 03/15/25 04:36 Room Air 03/15/25 04:00 98.4 F 85 20 155/82 H 96 Room Air 03/15/25 03:00 Room Air 03/15/25 01:00 Room Air 03/15/25 00:00 98.4 F 85 22 164/88 H 97 Room Air 03/14/25 23:00 Room Air 03/14/25 21:00 Room Air 03/14/25 20:00 Room Air 03/14/25 19:25 98.5 F 93 H 20 161/90 H 94 L Room Air 03/14/25 18:02 Room Air 03/14/25 17:00 Room Air 03/14/25 16:00 98.1 F 81 18 142/92 H 95 Room Air 03/14/25 14:09 Room Air 03/14/25 13:00 Room Air 03/14/25 12:00 98.3 F 76 18 155/85 H 95 Room Air 03/14/25 10:58 Room Air 03/14/25 10:10 78 03/14/25 10:10 74 03/14/25 10:10 95 Room Air Intake and Output 03/14/25 03/15/25 03/15/25 19:59 03:59 11:59 Intake Total 480 / 630 150 / 630 Output Total 0 / 300 300 / 300 Balance 480 / 330 150 / 330 -300 / 330 Intake: Intake, Oral Amount 480 / 630 150 / 630 Output: Output, Urine Amount 0 / 300 300 / 300 Other: Number of Unmeasured Voids 1 1 Number of Bowel Movements 1 1 Weight 157 lb 9.6 oz Patient Weight 03/15/25 11:59 Weight 157 lb 9.6 oz Laboratory Results - last 24 hr 03/14/25 06:38: TSH 4.57 I & O for Labs for Last 24 Hours: Intake & Output 05/22/25 05/23/25 05/24/25 05/25/25 11:59 11:59 11:59 11:59 Intake Total 220 / 220 1689 / 1689 3030 / 3030 630 / 630 Output Total 800 / 800 1025 / 1025 400 / 400 300 / 300 Balance -580 / -580 664 / 664 2630 / 2630 330 / 330 Weight 154 lb 14.4 oz 158 lb 9.6 oz 154 lb 3.2 oz 157 lb 9.6 oz Head: Present normocephalic Neck: Present normal inspection Respiratory: Present decreased breath sounds and CTA bilaterally Cardiac: Present Reg Rate and Rhythm GI: Present soft; Absent tenderness Rectal (female): Present deferred (female): Present deferred Extremities: Absent edema Comment:: Dressing in place on the left lower leg. Skin: Present intact (Apart from the leg the skin is intact.) Neuro: Present alert, oriented x 3 (Disorientation is not obvious on my brief exam this morning.) and moves all extremities Assessment and Plan *Assessment and plan (1) Multiple fractures of ribs of right side: Status: Acute Qualifiers: Encounter type: initial encounter Fracture type: closed Qualified Code(s): S22.41XA - Multiple fractures of ribs, right side, initial encounter for closed fracture Category: Medical Code(s): S22.41XA - Multiple fractures of ribs, right side, initial encounter for closed fracture (2) Multiple rib fractures: Status: Acute Qualifiers: Encounter type: initial encounter Fracture type: closed Laterality: right Qualified Code(s): S22.41XA - Multiple fractures of ribs, right side, initial encounter for closed fracture Category: Medical Code(s): S22.49XA - Multiple fractures of ribs, unspecified side, initial encounter for closed fracture (3) Fall at home: Status: Acute Category: Medical Code(s): W19.XXXA - Unspecified fall, initial encounter; Y92.009 - Unspecified place in unspecified non-institutional (private) residence as the place of occurrence of the external cause (4) Hyponatremia: Status: Acute Category: Medical Code(s): E87.1 - Hypo-osmolality and hyponatremia (5) Acute hypokalemia: Status: Acute Category: Medical Code(s): E87.6 - Hypokalemia (6) Anemia: Status: Acute Category: Medical Code(s): D64.9 - Anemia, unspecified (7) Hypothyroidism: Status: Chronic Category: Medical Code(s): E03.9 - Hypothyroidism, unspecified (8) Rheumatoid arthritis: Status: Acute Category: Medical Code(s): M06.9 - Rheumatoid arthritis, unspecified (9) CAD (coronary artery disease): Status: Acute Category: Medical Code(s): I25.10 - Atherosclerotic heart disease of [place] coronary artery without angina pectoris Plan Transfer to [facility] this morning. Dr. Torres is her physician.
--- NOTE | 2025-03-15 09:44 | EXP.DC.SUM ---
General Admission date:: 03/12/25 HPI HPI HPI: Ms. Culp is a 79 year old female patient of [facility], who typically sees Dr. Torres for her primary care. She fell at home the morning of 03/12 in her bathroom after feeling weak. She states she was standing at her sink and felt like she was going to fall so she sat down. In the act of sitting down she fell into her tub. She did not loose consciousness and she did not hit her head. She did come to the ER for an evaluation and was found to have several right sided rib fractures (10, 11, 12). She did not ave any lab evaluation done at that time. She was discharged home and instructed to use Tylenol and Lidocaine patches for pain. She states that later in the day her pain became worse so she return to the ER. She was found to be hyponatremic at115 and hypokalemic at 2.5. She was admitted for evaluation and treatment. Hospital Course Hospital Course Hospital Course: The patient received IV fluids including sodium and potassium correction. Her electrolytes did improve with her potassium normalizing but with sodium remaining low in the 125 range. Electrolytes are pending prior to discharge. She received pain relief. She was seen by physical therapy. Arrangements were made for her to be transferred to [facility] on March 15. Her did express some concern about her orientation. This will need further evaluation when she is situated at [place]. Her cardiac status seems stable during her hospitalization. See medication list. Potassium dose was increased to twice a day to maintain potassium and sodium. The patient is normally seen by Dr. Torres and will be seen in follow-up in the nursing facility by him. Exam Data for Last 24 hours Vital signs and Labs for Last 24 Hours: Temp Pulse Resp BP Pulse Ox O2 Del Method O2 Flow Rate 98.1 F 83 18 164/92 H 95 Room Air 2 03/15/25 08:00 03/15/25 08:00 03/15/25 08:00 03/15/25 08:00 03/15/25 08:00 03/15/25 09:00 03/13/25 18:27 Laboratory Results - last 24 hr 03/14/25 06:38: TSH 4.57 I & O for Last 24 hours: Intake & Output 03/12/25 03/13/25 03/14/25 03/15/25 11:59 11:59 11:59 11:59 Intake Total 220 / 220 1689 / 1689 3030 / 3030 630 / 630 Output Total 800 / 800 1025 / 1025 400 / 400 300 / 300 Balance -580 / -580 664 / 664 2630 / 2630 330 / 330 Weight 154 lb 14.4 oz 158 lb 9.6 oz 154 lb 3.2 oz 157 lb 9.6 oz Constitutional Constitutional: mild distress *Routine HEENT Exam Head: Present normocephalic and atraumatic Eye: Present EOMI and PERRL ENT: Present mucous membranes moist *Routine Neck Exam Neck: Present supple Routine Chest/Breast/Axilla Exam Chest wall: Present tenderness (right chest) Axillae: Absent lymphadenopathy *Routine Respiratory Exam Respiratory: Present CTA bilaterally and able to speak in complete sentences; Absent respiratory distress (pain) *Routine Cardiovascular Exam Cardiovascular: Present RRR *Routine Abdominal Exam Abdominal: Present soft and normoactive bowel sounds; Absent tenderness, distended, rebound, guarding, organomegaly or mass *Routine Rectal Exam Comments: Deferred *Routine Exam Comments: Deferred *Routine Extremities Exam Extremities: Absent edema Comments: Abrasion of the left pretibial area. Routine Back/Spine/Pelvis Exam Back/Spine: Present kyphosis and pain with flexion *Routine Skin Exam Skin: Present intact (Intact apart from the leg wound.) *Routine Neurological Exam Neurological: Present alert, oriented X3 and moving all extremities; Absent motor deficit Routine Psychiatric Exam Psychiatric: Present normal affect and normal thought process Results Data Completed and Pending Labs on day of discharge: Labs from last 24 hours 03/14/25 06:38 TSH 4.57 DS: Diagnosis Discharge Diagnosis (1) Multiple fractures of ribs of right side: Status: Acute Code(s): S22.41XA - Multiple fractures of ribs, right side, initial encounter for closed fracture Qualifiers: Encounter type: initial encounter Fracture type: closed Qualified Code(s): S22.41XA - Multiple fractures of ribs, right side, initial encounter for closed fracture (2) Multiple rib fractures: Status: Acute Code(s): S22.49XA - Multiple fractures of ribs, unspecified side, initial encounter for closed fracture Qualifiers: Encounter type: initial encounter Fracture type: closed Laterality: right Qualified Code(s): S22.41XA - Multiple fractures of ribs, right side, initial encounter for closed fracture (3) Fall at home: Status: Acute Code(s): W19.XXXA - Unspecified fall, initial encounter; Y92.009 - Unspecified place in unspecified non-institutional (private) residence as the place of occurrence of the external cause (4) Hyponatremia: Status: Acute Code(s): E87.1 - Hypo-osmolality and hyponatremia (5) Acute hypokalemia: Status: Acute Code(s): E87.6 - Hypokalemia (6) Anemia: Status: Acute Code(s): D64.9 - Anemia, unspecified (7) Hypothyroidism: Status: Chronic Code(s): E03.9 - Hypothyroidism, unspecified (8) Rheumatoid arthritis: Status: Acute Code(s): M06.9 - Rheumatoid arthritis, unspecified (9) CAD (coronary artery disease): Status: Acute Code(s): I25.10 - Atherosclerotic heart disease of [place] coronary artery without angina pectoris Meds Home Medications and Allergies Home Medications ?Medication ?Instructions ?Recorded ?Confirmed ?Type levothyroxine 112 mcg tablet 112 mcg PO DAILYDM 04/24/18 03/12/25 History hydroxychloroquine 200 mg tablet 200 mg PO DAILY 05/11/22 03/12/25 History prednisone 5 mg tablet 10 mg PO DAILY 07/01/22 03/12/25 History acetaminophen 500 mg tablet 500 mg PO Q6HP PRN Mild Pain 07/15/24 03/12/25 History (Scale Score 1-4) aspirin 81 mg tablet,delayed 81 mg PO DAILY 07/15/24 03/12/25 History release cyclobenzaprine 5 mg tablet 5 mg PO HSP PRN muscle spasms 07/15/24 03/12/25 History melatonin 3 mg tablet 3 mg PO HSP Insomnia 07/15/24 03/12/25 History tramadol 50 mg tablet 50 mg PO Q6HP PRN Moderate Pain 07/15/24 03/12/25 History (Scale Score 5-6) tamsulosin 0.4 mg capsule 0.4 mg PO DAILY 30 days #30 caps 07/16/24 03/12/25 Rx lidocaine 5 % topical patch 1 patch topical DAILY #30 ea 03/11/25 03/12/25 Rx carvedilol 12.5 mg tablet 12.5 mg PO BID 03/12/25 03/12/25 History triamterene 37.5 1 tab PO DAILY 03/12/25 03/12/25 History mg-hydrochlorothiazide 25 mg tablet potassium chloride 10 mEq 10 meq PO BID #60 caps 03/15/25 Rx capsule,extended release pravastatin 40 mg tablet 40 mg PO HS #30 tabs 03/15/25 Rx New Prescriptions to Start Prescriptions: potassium chloride David Gaspar pravastatin David Gaspar Allergies Allergy/AdvReac Type Severity Reaction Status Date / Time Sulfa (Sulfonamide Allergy Unknown Hives Verified 12/04/24 14:16 Antibiotics) (SULFA (SULFONAMIDE ANTIBIOTICS)) codeine Allergy Vomiting Verified 12/04/24 14:16 Penicillins Allergy Hives Verified 12/04/24 14:16 hydrocodone AdvReac Other Verified 03/12/25 17:35 Discharge Plan Disposition Patient Disposition: er SNF Condition: Fair Discharge Order Discharge Orders: Discharge Order (Routine); Ordered 03/15/25 Ordered By: David Gaspar Follow up Plan Follow up with: Wyatt Torres MD [Primary Care Provider] - Enter time for follow up Prescriptions/Medication Reconciliation: New potassium chloride 10 mEq Capsule, Extended Release 10 meq PO BID Qty: 60 4RF pravastatin 40 mg Tablet 40 mg PO HS Qty: 30 0RF Continued hydroxychloroquine 200 mg tablet 200 mg PO DAILY levothyroxine 112 MCG tablet 112 mcg PO DAILYDM lidocaine 5 % adhesive patch,medicated 1 patch topical DAILY Qty: 30 0RF Rx Instructions: leave on most painful area for up to 12 hrs carvedilol 12.5 mg tablet 12.5 mg PO BID triamterene-hydrochlorothiazid 37.5-25 mg tablet 1 tab PO DAILY prednisone 5 mg tablet 10 mg PO DAILY melatonin 3 mg Tablet 3 mg PO HSP aspirin 81 mg Tablet,Delayed Release (Dr/Ec) 81 mg PO DAILY acetaminophen 500 mg Tablet 500 mg PO Q6HP PRN (Reason: Mild Pain (Scale Score 1-4)) tramadol 50 mg Tablet 50 mg PO Q6HP PRN (Reason: Moderate Pain (Scale Score 5-6)) cyclobenzaprine 5 mg Tablet 5 mg PO HSP PRN (Reason: muscle spasms) tamsulosin 0.4 mg Capsule 0.4 mg PO DAILY 30 Days Qty: 30 0RF Discontinued simvastatin 20 MG tablet 20 mg PO HS potassium chloride 10 mEq capsule, extended release 10 meq PO DAILY Qty: 30 0RF Problem Reconciliation Problems Reviewed?: Yes Patient Discharge Instructions ACTIVITY: Up with assistance DIET: advance to your usual diet Patient Instructions: DI for Hypokalemia, DI for Hyponatremia Print Language: Lithuanian Providers Primary Care Provider: Wyatt Torres Admit Provider: Channing Garcia Attending Provider: Channing Garcia
[2025-03-15 10:53] LABS: Blood Urea Nitrogen 8 mg/dl (7-17); Calcium 8.3 mg/dl (8.4-10.2); Carbon Dioxide 23 mmol/L (22.0-30.0); Chloride 93 mmol/L (98-107); Creatinine Clearance Estimated 52 mL/min (50-200); Estimated Glomerular Filt Rate 97 ml/min (>60); GFR (African American) 117 ML/MIN (>60); Glucose 87 mg/dl (74-100); Sodium 122 mmol/L (136-145)
== END 2025-03-15 13:29 | DRG 641 ==
LOC: ER 01:38 → ICU 01:45 → 2ND 15:21
PROVIDERS: Family Medicine; Admitting Provider Family Medicine; Emergency Provider Emergency Medicine; PCP Family Medicine; Visit Provider Family Medicine
DX: E87.6 Hypokalemia (principal); E87.1 Hypo-osmolality and hyponatremia; S22.41XS Multiple fractures of ribs, right side, sequela; Y92.009 Unspecified place in unspecified non-institutional (private) residence as the place of occurrence of the external cause; D64.9 Anemia, unspecified; E03.9 Hypothyroidism, unspecified; M06.9 Rheumatoid arthritis, unspecified; I25.10 Atherosclerotic heart disease of native coronary artery without angina pectoris; Z66 Do not resuscitate; Z88.5 Allergy status to narcotic agent; Z88.0 Allergy status to penicillin; Z88.2 Allergy status to sulfonamides; Z99.89 Dependence on other enabling machines and devices; R07.89 Other chest pain; W17.89XS Other fall from one level to another, sequela; Z86.16 Personal history of COVID-19; I25.2 Old myocardial infarction; Z91.81 History of falling; Z98.49 Cataract extraction status, unspecified eye; E78.5 Hyperlipidemia, unspecified; Z90.49 Acquired absence of other specified parts of digestive tract; Z90.79 Acquired absence of other genital organ(s); Z98.890 Other specified postprocedural states; Z87.891 Personal history of nicotine dependence; Z82.49 Family history of ischemic heart disease and other diseases of the circulatory system; Z80.9 Family history of malignant neoplasm, unspecified; M70.62 Trochanteric bursitis, left hip; Z95.5 Presence of coronary angioplasty implant and graft; Z79.890 Hormone replacement therapy; Z79.52 Long term (current) use of systemic steroids; Z79.82 Long term (current) use of aspirin; Z79.899 Other long term (current) drug therapy; R26.89 Other abnormalities of gait and mobility; R41.0 Disorientation, unspecified; Z74.1 Need for assistance with personal care
CPT/HCPCS: 36415; 71045; 80048; 80053; 81001; 82550; 82553; 83735; 83930; 83935; 84100; 84443; 84484; 84540; 85014; 85018; 85025; 93005; 94640; 97110; 97162; 97166; 97530; 99285; G0238; J1650; J2270; J2405; J2550; J7030; J7620

== ENCOUNTER 2025-04-29 10:53 | Outpatient (RCR) | payer MEDICARE, OTHER, SELFPAY | END 2025-04-29 23:59 | disposition home or self-care (01) | LOC: PT.CARL 10:53 | PROVIDERS: PCP Family Medicine; Visit Provider Family Medicine | DX: R26.89 Other abnormalities of gait and mobility (principal) | CPT/HCPCS: 97110; 97162 ==

== ENCOUNTER 2025-05-27 12:52 | Outpatient (RCR) | payer MEDICARE, OTHER, SELFPAY | END 2025-06-01 11:00 | disposition home or self-care (01) | LOC: PT.CARL 12:52 | PROVIDERS: PCP Family Medicine; Visit Provider Family Medicine | DX: R26.89 Other abnormalities of gait and mobility (principal) ==

== ENCOUNTER 2025-06-09 13:52 | Outpatient (RCR) | payer MEDICARE, OTHER, SELFPAY ==
--- NOTE | 2025-06-09 15:54 | HMH.PTOPEV ---
PT Outpatient Evaluation Rehab PT Outpatient Evaluation Start: 06/09/25 15:23 Freq: Status: Active Protocol: Document 06/09/25 15:23 PDESEROUX (Rec: 06/09/25 15:52 PDESEROUX [id number]) E-signed By Edward Garcia, PT Outpatient Therapy Subjective History Subjective History Pt. is a 79 year old female who presents to [facility] Outpatient Physical Therapy Services in [place] for the PT outpatient initial evaluation this date() c/o chronic and intermittent falls secondary to constant unsteadiness, weakness, and imbalance on her feet. Pt. reports he last fall was at home in February 2025. Pt. reports she was standing at her bathroom sink brushing her hair getting ready to go out for lunch when both of her legs began to shake and gave out from underneath of her. Pt. reports she fell into her bathtub which resulted in x4 fractured ribs pt. states. Pt. reports spending 5 weeks at [facility] after being discharged from the hospital, consulted for Home Health Physical Therapy once she returned back home, in which pt. refused, and elected to come to [facility] Outpatient Physical Therapy Services in [place] to treat the imbalance. Pt. reports attending two visits of Outpatient PT and discontinued self secondary to it wasn't helping. However, pt. returns this date() w/ a new order stating patient would like to resume PT. Pt. reports the weakness of BLEs have improved w/ the most recent medication changes treating hyponatremia, hypokalemia, and hypocalcemia. Pt. c/o symptoms worsening when she is fatigued or overdo it. Pt. reports her balance worsens w/ longer standing tasks and prolonged ambulatory tasks. Pt. reports she has 3 step to negotiate to get into and out of her home . Pt. reports she uses her rollator everywhere she goes or I can't walk. Pt. reports her goal w/ Physical Therapy is to ambulate safely 25ft. w/ SPC to attend the senior living lunch. Current medication list includes Plaquenil, Prednisone, Acetaminophen, Tamsulosin, Prednisone. 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 New diagnosis of No cancer in past 12 months? Chief Complaint Weakness,Other,Decreased Coordination Symptom Type Other Symptoms Relieved By Rest/Positioning Symptoms Aggravated Standing,Bending/Stooping,Physical Activity,Walking By Prior Functional None Limitations Current Functional Standing,Recreation Activity,Walking,Stairs,Balance, Limitations Bending/Stooping Symptom Description Activity Dependent Balance Eval Subjective Hx of Complaint Comment falls, imbalance, unsteadiness Chief Complaint vertigo No Did you feel dizzy, No unsteady or faint? Activity at onset transfers, ambulation, standing, steps Prior Functional Limitations Prior Functional IND. w/ ADLs Cobb Level Current Functional Limitations Comment steps, ambulation, transitions, standing, transfers Hx of Falls Hx Falls Yes Number in last 6 5 months Gait/Posture Asssessment General Gait Wide Based Gait,Ataxic Gait,Shuffling Step,Hips Observation Posterior to RAPHAEL Assistive Devices Rolling / Wheeled Walker Level of Transfer Standby Assistance Assist Hip Observation in Decreased Flexion,Abducted Gait Swing Hip Observation in Decreased Flexion,Abducted Gait Stance Ankle/Foot No Heel Off,Decreased Foot Clearance Observation in Gait Swing Ankle/Foot Pronated,Decreased Heel Strike,Decreased Push Off Observation in Gait Stance Hip Posture Standing (L) Flexed,(R) Flexed,(L) Abducted,(R) Abducted Position Body Alignment Rigid,Leaning Posture Tinetti Sitting Balance Sitting Balance Steady, safe Arising from Chair Ability to Arise Able, uses arms to help Attempts to Arise Able, requires >1 attempt Standing Balance Immediate Standing Steady with support Balance Standing Balance Steady, wide stance Nudged Response Begins to fall Standing with Eyes Unsteady Closed Turning Step Pattern Turning Discontinuous steps 360 Degrees Stability Turning Unsteady, grabs/staggers 360 Degrees Sitting Down Sitting Down Uses arms or unsteady Gait and Step Initiation of Gait No hesitancy Right Foot Step Does pass stance foot Length Right Foot Step Does not clear floor Height Left Foot Step Does pass stance foot Length Left Foot Step Completely clears floor Height Step Description Step Symmetry Step length not equal Step Continuity Stopping or discontinuity Gait Description Path Description Marked deviation Trunk Description Marked sway or uses aide Walking Stance Heels apart Scoring and Interpretation Tinetti Composite 10 Score (points) Interpretation of High risk for falls(< 19) Scores Lower Extremity Functional Index Activities Today, do you or would you have any difficulty at all with: a.Any of your usual Quite a bit of difficulty work, housework or school activities b. Your usual Moderate difficulty hobbies, recreational or sporting activities c. Getting into or Quite a bit of difficulty out of the bath d. Walking between Moderate difficulty rooms e. Putting on your Quite a bit of difficulty shoes or socks f. Squatting Quite a bit of difficulty g. Lifting an object Quite a bit of difficulty , like a bag of groceries from the floor h. Performing light Moderate difficulty activities around your home i. Performing heavy Extreme difficulty or unable to perform activity activities around your home j. Getting into or Moderate difficulty out of a car k. Walking 2 blocks Quite a bit of difficulty l. Walking a mile Extreme difficulty or unable to perform activity m. Going up or down Extreme difficulty or unable to perform activity 10 stairs (about 1 flight of stairs) n. Standing for 1 Extreme difficulty or unable to perform activity hour o. Sitting for 1 A little bit of difficulty hour p. Running on even Extreme difficulty or unable to perform activity ground q. Running on uneven Extreme difficulty or unable to perform activity ground r. Making sharp Extreme difficulty or unable to perform activity turns while running fast s. Hopping Extreme difficulty or unable to perform activity t. Rolling over in Moderate difficulty bed LEFI Score Lower Extremity 19 Functional Index Score Outpatient Therapy Assessment Impairments Problems/ Impaired Transfers,Impaired Gait Pattern,Impaired Impairmments Walking,Impaired Standing,Impaired Stair Climbing, Impaired Incline Stepping,Impaired Stepping on Uneven Surface,Impaired Recreational Activities,Impaired Balance,Impaired Tinnetti Score,Impaired Self Care/Self Management Prognosis Rehab Potential Good Comment w/ HEP compliancy Clinical Impression Consistent with Yes Diagnosis Consistent with imbalance PT Patient Goals PT Patient Goals PT Short Term STG#1:Pt. will deny having any falls at home nor in the Patient Goals community in 2wks. for improved QOL. STG#2:Pt. will ambulate 30ft. on even surface safely SPV in 2 wks. for improved household ambulation. PT Chcf Patient LTG#1:Pt. will deny having any falls at home nor in the Goals community in 6wks. for improved QOL. LTG#2:Pt. will negotiate her daughter's pool steps safely w/ CGA in 6 wks. to return to recreational activity. LTG#3:Pt. will ambulate 50ft. w/ SPC safely w/ SPV in 6 wks. for improved community ambulation. LTG#4:Pt. will ambulate 25ft. up an incline/decline w/ SPC in 6 wks. SPV to attend the senior living lunch. Outpatient Therapy Plan of Care Treatment Plan May Include Therapeutic Exercise Yes Including Home Exercise Program Manual Therapy Yes Techniques Neuromuscular Re- Yes education Therapeutic Yes Activities to Return to Previous Functional/Work Level Gait Training Yes ADL/Self Care Yes Education Eval/Re-Eval Yes Frequency Times per week 2 Duration Number of Weeks 6-8 Addendums This patient is a No candidate for social or vocational rehab ? Patient/Guardian Yes verbally acknowledges understanding of treatment program and consents to further treatment? Patient/Guardian Yes verbally acknowledges understanding of diagnosis, prognosis and goals for treatment? Eval Complexity PT Charges 19754 - Low Complexity Shoulder/Elbow Eval Shoulder Objective Measurements Elbow Objective Measurements PHYSICIAN CERTIFICATION: I certify the specified therapy services for Andry Culp are required, authorized, and reviewed every 30 days.
== END 2025-06-09 23:59 | disposition home or self-care (01) ==
LOC: PT.CARL 13:52
PROVIDERS: Visit Provider Family Medicine
DX: R26.89 Other abnormalities of gait and mobility (principal)
CPT/HCPCS: 97161; 97530

== ENCOUNTER 2025-06-10 10:21 | Outpatient (CLI) | payer MEDICARE, OTHER, SELFPAY ==
--- OUTSIDE RECORDS SUMMARY | 2025-05-19 06:00 | XMS_ITS ---
Author Organization [facility] Address [address] [facility] [address] [place] [id number] Care Team Providers Care Clinical Data Assistant Name Role Phone Raul Torres Primary Care Provider [phone] Allergies Allergen (clinical drug ingredient) Drug/Non Drug [...] 102 Performing Lab: Notes/Report: Test performed by [employer] [facility] , [address], [place] [address] Gilmer Lowe MD, Lookback Coordinator CLIA: [id number] Sodium 122 135-145 mmol/L Potassium 4.2 3.5-5.3 [...] [address] [place] [id number] 05/19/2025 Raul Torres Hyponatremia E87.1 ; Muscle [...] ge:79 Y S ex:Female Date:05/19/2025 Address:[address] [facility], [place], [id number] Subjective: * Chief Complaints: * 1 . [...] Hypertension, Hypothyroidism/goiter, Kidney stones, Allergic rhinitis, ASCVD: [place] - 09/2013-followed by Dr. Arrington q 6 [...] Procedure: k idney stones 1992, Heart Attack- [place] 09/2013, Facial Pain, Sinus Blockage- [facility] 04/24/2018, Itching, Swelling in Hands- [facility] 10/21/2018, Multiple rib and pelvic fractures; hyponatremia; rheumatoid arthritis; ASCVD- 06/30-, Dehydration, Failure to Thrive, Acute Urinary Retention- [facility] 07/14-, [facility] : fall with multiple FX ribs [...] uscle weakness - M62.81 3 . B [place] 23.0-23.9, adult - Z68.23 Plan: * Treatment: [...] * Images: Billing Information: * Visit Code: 95259 Office Visit, Est Pt., Level 3. * Procedure Codes: G2211 Complex e/m visit add on. 1036F TOBACCO NON-USER. G8420 BMI<30 AND >=22 CALC & DOCU. G8783 BP SCR PRFRM RCMDD DEFIND SCR INTVL. G8752 MOST RECENT SYSTOLIC BP < 140MM HG. G8754 MOST RECENT DIASTOLIC BP < 90MM HG. * Electronic signature of Raul Torres MD on 06/10/2025 at 10:37 AM EDT Sign off status: Pending * Provider: Raul Torres M.D. Date: 0 05/19/2025 Generated for Jerry panda/Kerwin/Arthur on: 0 06/10/2025 10:37 AM EDT History and Physical Notes * [...]
--- OUTSIDE RECORDS SUMMARY | 2025-05-26 10:45 | XMS_ITS ---
[facility] Address [address] [place] [phone] Care Team Providers Care Pet Handler Name Role Phone Raul Torres Primary Care [...] Reason For Referral Reason Dr. Lee at [facility] for hyponatremia/ possible adrenal insufficiency Diagnosis 1 Hyponatremia (E87.1) Referral Organization [facility] Referring Provider First Name Raul Lopez Referring Provider Last Name Melissa Referring Provider [facility] ctice Referred Provider Endocrinology, . Referred Provider Specialty Endocrinolog y General Notes Keira Burger 2024 10:04:16 AM > faxed to [facility] Endo Referral Priority Routine Reason memory loss/ confusi on Diagnosis 1 Memory loss (R41.3) Referral Organization [facility] Referring Provider First Name Raul Lopez Referring Provider Last Name Melissa Referring Provider [facility] ctice Referred Provider Radha Ignacio Referred Provider Specialty Neurology General Notes Keira Burger 2024 09:55:39 AM > faxed to [facility] Neurology, Keira Burger 05/29/2025 10:50:10 AM [...] W/U Status Risk Notes Problem Memory loss (35254360) Memory loss (R41.3) Active confirmed Vital Signs Weight 146.2 lbs 05/26/2025 Blood pressure systolic 110 mm Hg 05/26/20 25 Blood pressure diastolic 76 mm Hg 025 Heart Rate 72 /min 05/26/2025 Height 65 in 05/26/2025 BMI 24.33 kg/m2 05/26/2025 Encounters Encounter Location Date Provider Diagnosis [facility] [address] [place] [phone] 05/26/2025 Raul Torres Hyponatremia E87.1 ; Memory loss R41.3 and BMI 24.0-24.9, adult Z68.24 Assessments Encounter Date Diagnosis (ICD Code) Assessment Notes Treatment Notes Treatment Clinical Notes Section Notes 05/26/2025 Hyponatremia (ICD-10 - E87.1) 05/26/2025 Memory loss (ICD-10 - R41.3) 05/26/2025 BMI 24.0-24.9, adult (ICD-10 - Z68.24) Plan Of Treatment Referrals Referral Date Details 05/26/2025 05/26/2025, Dr. Sophie pineda at [facility] for hyponatremia/ possible adrenal insufficiency, . Endocrinology 05/26/2025 05/26/2025, memory l oss/ confusion, Radha Ignacio Next Appt Details Follow Up: after consultatio n, Reason: Progress Notes * ANDRY HUYNHDOB: 7 (79 yo F)Acc No.[id number]:05/26/2025 Progress Notes Patient: ANDRY PANIAGUA Provider: Raul Torres M.D. :1945 A ge:79 Y S ex:Female Date:05/26/2025 Address:[address] [place] [address], [place], [id number] Subjective: * Chief Complaints: * 1 . [...] Total Hysterectomy 1992, Tonsillectomy child, Cardiac Stent Placed-[facility]-Dr Arrington. Dr. Santo 10/19/2013, Cataract 10/2017. * Hospitalization/Major Diagno stic Procedure: k idney stones 1992, Heart Attack- [place] 09/2013, Facial Pain, Sinus Blockage- [facility] ER 04/24/2018, Itching, Swelling in Hands- [facility] ER 10/21/2018, Multiple rib and pelvic fractures; hyponatremia; rheumatoid arthritis; ASCVD- 06/30-, Dehydration, Failure to Thrive, Acute Urinary Retention- [facility] 07/14-, [facility] : fall with multiple FX ribs [...] * Images: Billing Information: * Visit Code: 38229 Office Visit, Est Pt., Level 3. * [...] M.D. Date: 0 05/26/2025 Generated for Jerry panda/Kerwin/Adrianitting on: 0 06/10/2025 10:37 AM EDT History [...] Torres Endocrinology, . Dr. Edy matos at [facility] for hyponatremia/ possible adrenal insufficiency 05/26/2025 Raul Torres Maria memory los s/ confusion
--- OUTSIDE RECORDS SUMMARY | 2025-05-28 04:20 | XMS_ITS ---
Author Organization [facility] Address [address] [place] [phone] Care Team Providers Care Composing Machine Operator/Tender Name Role Phone Raul Torres Primary Care [...] W/U Status Risk Notes Problem Altered mental state (R41.82) Active confirmed Encounters Encounter Location Date Provider Diagnosis [facility] [address] [place] [phone] 05/28/2025 Raul Torres Altered mental state R41.82 Assessments Encounter Date Diagnosis (ICD Code) Assessment Notes Treatment Notes Treatment Clinical Notes Section Notes 05/28/2025 Altered mental state (ICD-10 - R41.82) Plan Of Treatment No Information Progress Notes * LINO KWASIDOB: 7 (79 yo F)Acc No.[id number]:05/28/2025 Patient: KWASI PANIAGUA Provider: Raul Torres M.D. :1945 A ge:79 Y S ex:Female Date:05/28/2025 Address:[address], [id number] Subjective: * Chief Complaints: * 1 . [...] Information: * Visit Code: * Procedure Codes: 40634 Urinalysis, no micro. * Electronic signature of Raul Torres MD on 06/10/2025 at 10:37 AM EDT Sign off status: Pending * Provider: Raul Torres M.D. Date: 0 05/28/2025 Generated for Jerry panda/Kerwin/Sonnysmitting on: 0 06/10/2025 10:37 AM EDT
--- OUTSIDE RECORDS SUMMARY | 2025-06-10 10:37 | XMS_ITS | Clinical Summary ---
Author Organization [facility] Address [address] [place] [address] Care Team Providers Care Topstitcher Zigzag Name Role Phone Wyatt Torres MD Primary Care Provider Allergies Active Allergy Reactions Criticality Noted Date Comments Atorvastatin Itching,Rash Low 12/26/2024 Codeine Nausea And Vomiting 05/04/2015 codeine Rosuvastatin Itching 12/26/2024 Pitavastatin Itching 12/26/2024 Penicillins Hives,Nausea And Vomiting,Rash Low 04/09/2023 Simvastatin Rash Low 12/26/2024 Sulfa Antibiotics Rash Low 06/30/2024 Sulfate Nausea And Vomiting,Other (See Comments) 05/04/2015 Substance with sulfonamide structure and antibacterial mechanism of action (substance) Medications cyclobenzaprine (FLEXERIL) 5 MG tablet Take 1 tablet by mouth Every Night. Active aspirin 81 MG EC tablet Take 1 tablet by mouth Daily. Active cetirizine (zyrTEC) 10 MG tablet Take 1 tablet by mouth Daily. Active triamterene-hydro chlorothiazide (MAXZIDE-25) 37.5-25 MG per tablet Take 1 tablet by mouth Daily. Active predniSONE (DELTASONE) 5 MG tablet Take 1 tablet by mouth Daily. Active potassium chloride (KLOR-CON M10) 10 MEQ CR tablet Take 1 tablet by mouth Daily. Active hydroxychloroquin e (PLAQUENIL) 200 MG tablet Take 1 tablet by mouth Daily. 5 Active levothyroxine (SYNTHROID, LEVOTHROID) 112 MCG tablet Take 1 tablet by mouth Every Morning. Active ondansetron (ZOFRAN) 4 MG tablet Take 1 tablet by mouth Every 8 (Eight) Hours As Needed for Nausea or Vomiting. Active benzonatate (TESSALON) 100 MG capsule Take 1 capsule by mouth As Needed for Cough. Active Melatonin [address] 1 tablet on the tongue Every Night. Active carvedilol (COREG) 12.5 MG tabletIndications :Essential hypertension Take 1 tablet by mouth 2 (Two) Times a Day With Meals. 180 tablet 1 Active simvastatin (ZOCOR) 20 MG tablet Take 1 tablet by mouth Every Night. 90 tablet 1 5 Active Active Problems Problem Noted Date Diagnosed Date Nonrheumatic mitral valve regurgitation 01/14/20 Assessment & Plan (01/14/2025 10:09 AM EDT): Needs attn Orders: proBNP; Future Adult Transthoracic Echo Complete W/ Cont if Necessary Per Protocol; Future Hyperlipidemia LDL goal <55 01/13/2025 Assessment & Plan (01/14/2025 10:09 AM EDT): Needs FLP Orders: Hepatic Function Panel; Future High Sensitivity CRP; Future Lipoprotein A (LPA); Future Lipid Panel; Future Primary hypertension 01/13/2025 Assessment & Plan (01/14/2025 10:09 AM EDT): Needs BP log Orders: Basic Metabolic Panel; Future Microalbumin / Creatinine Urine Ratio - Urine, Clean Catch; Future Encounters Date Type Department Care Team Description 03/13/2025 Refill [facility] [address] [place] [address] Amparo Arrington MD Med Refill from Last 3 Months Family History Medical History Relation Name Comments Coronary artery disease Father Heart attack Father Hyperlipidemia Father Hypertension Father Sudden Father Hypertension Mother Hypertension Paternal Grandmother Relation Name Status Comments Father Mother Paternal Grandmother Social History Tobacco Use Types Packs/Day Years Used Date Smoking Tobacco: Former Cigarettes Smokeless Tobacco: Never Tobacco Cessation:Counseling Given: Not Answered Alcohol Use Standard Drinks/Week Comments Yes 0 (1 standard drink = 0.6 oz pur e alcohol) a glass of wine at [facility] Comments Unknown Sex and Gender Information Value Date Recorded Sex Assigned at Not on file Legal Sex Female 11:41 AM EDT Gender Identity Not on file Sexual Orientation Not on file Last Filed Vital Signs Vital Sign Reading Time Taken Comments Blood Pressure 130/86 01/14/2025 9:40 AM EDT Pulse 69 01/14/2025 9:40 AM EDT Temperature - - Respiratory Rate - - Oxygen Saturation - - Inhaled Oxygen Concentration - - Weight 67.6 kg (149 lb 1.6 oz) 01/14/2025 9:40 A M EDT Height 167.6 cm (5' 6 ) 01/14/2025 9:40 AM EDT Body Mass Index 24.07 01/14/2025 9:40 AM EDT Plan of Treatment Health Maintenance Due Date Last Done Comments DXA SCAN 1945 ZOSTER VACCINE (1 of 2) 1996 RSV Vaccine - Adults (1 - 1- dose 75+ series) 2021 ANNUAL WELLNESS VISIT 12/26/2024 COVID-19 Vaccine (2023-2 5 season) 2025 08/19/2024, 08/16/2023, 05/29/2023, Additional history exists INFLUENZA VACCINE 07/22/2025 07/11/2022, , 07/12/2020, Additional history exists LIPID PANEL 01/14/2026 01/14/2025 TDAP/TD VACCINES (4 - Td or Tdap) 06/30/2034 06/30/2024, 04/09/2023, 09/03/2018 Pneumococcal Vaccine 50+ Completed 07/12/2023, 04/22 HEPATITIS C SCREENING Completed 06/30/2024 Procedures Procedure Name Priority Date/Time Associated Diagnosis Comments LIPID PANEL Routine 01/14/2025 10:25 AM EDT Hyperlipidemia LDL goal <55 from Last 3 Months or Most Recently Relevant to Health Maintenance Results * (ABNORMAL) Lipid Panel (01/14/2025 10:25 AM EDT) Total Cholesterol 190 0 - 200 mg/dL 01/15/2025 12:23 AM EDT [facility] Triglycerides 89 0 - 150 mg/dL 01/15/2025 12:23 AM EDT [facility] HDL Cholesterol 99(H) 40 - 60 mg/dL 01/15/2025 12:23 AM EDT [facility] LDL Cholesterol 75 0 - 100 mg/dL 01/15/2025 12:23 AM T [facility] VLDL Cholesterol 16 5 - 40 mg/dL 01/15/2025 12:23 AM T [facility] LDL/HDL Ratio 0.74 01/15/2025 12:23 AM T [facility] Blood Venipuncture / Unknown 01/14/2025 10:25 AM EDT 01/14/2025 10:26 AM EDT [facility] - 01/15/2025 12:23 AM EDT Cholesterol Reference Ranges (U.S. Department of Health and Human Services ATP III Classifications) Desirable <200 mg/dL Borderline High 200-239 mg/dL High Risk >240 mg/dL Triglyceride Reference Ranges (U.S. Department of Health and Human Services ATP III Classifications) Normal <150 mg/dL Borderline High 150-199 mg/dL High 200-499 mg/dL Very High >500 mg/dL HDL Reference Ranges (U.S. Department of Health and Human Services ATP III Classifications) Low <40 mg/dl (major risk factor for CHD) High >60 mg/dl ('negative' risk factor for CHD) LDL Reference Ranges (U.S. Department of Health and Human Services ATP III Classifications) Optimal <100 mg/dL Near Optimal 100-129 mg/dL Borderline High 130-159 mg/dL High 160-189 mg/dL Very High >189 mg/dL LDL is calculated using the NIH LDL-C calculation. us Amparo Arrington MD LAB BLOOD ORDERABLES Final Resul t [facility]
[address] [place] [address], from Last 3 Months or Most Recently Relevant to Health Maintenance Insurance MEDICARE A & B [employer] [facility] [place] [place] [id number] Care Teams Topstitcher Zigzag Relationship Specialty Start Date End Date yWatt Torres MD [address] [facility] [address] [place] [id number] PCP - General Family Medicine 12/26/24
--- OUTSIDE RECORDS SUMMARY | 2025-06-10 10:37 | XMS_ITS | Encounter Summary ---
Author Organization [facility] Address [address] [place] [address] Care Team Providers Care Perinatal Nurse Name Role Phone Wyatt Torres MD Primary Care Provider Encounter Details Date Type Department Care Team (Late st Contact Info) Description 01/15/2025 Results Follow-Up [facility] [address] [id number] Jennyfer Porras APRN [address] [facility] [address] [place] [address] Social History Tobacco Use Types Packs/Day Years Used Date Smoking Tobacco: Former Cigarettes Smokeless Tobacco: Never Alcohol Use Standard Drinks/Week Comments Yes 0 (1 standard drink = 0.6 oz pur e alcohol) a glass of wine at [facility] Comments Unknown Sex and Gender Information Value Date Recorded Sex Assigned at Not on file Legal Sex Female 11:41 AM EDT Gender Identity Not on file Sexual Orientation Not on file documented as of this encounter Plan of Treatment Not on file documented as of this encounter Visit Diagnoses Not on filedocumented in this encounter Care Teams Perinatal Nurse Relationship Specialty Start Date End Date Wyatt Torres MD [address] [facility] [address] [place] [id number] PCP - General Family Medicine 12/26/24 documented as of this encounter
--- OUTSIDE RECORDS SUMMARY | 2025-06-10 10:38 | XMS_ITS | Clinical Summary ---
Author Organization [facility] Address [address] [place] [address] Phone Care Team Providers Care Fast Food Team Member Name Role Phone Unavailable Primary Care Provider Unavailabl e Allergies Active Allergy Reactions Criticality Noted Date Comments Penicillins Hives,Nausea And Vomiting Sulfa (Sulfonamide Antibiotics) Nausea And Vomiting 04/09/2023 Medications No known medications Surgical History Surgery Date Site/Laterality Comments CAROTID STENT THYROIDECTOMY Social History Tobacco Use Types Packs/Day Years Used Date Smoking Tobacco: Former Cigarettes Q uit: 10/22/2012 Passive Smoke Exposure: Never Smokeless Tobacco: Never Tobacco Cessation:Counseling Given: Not Answered Alcohol Use Standard Drinks/Week Comments Yes 0 (1 standard drink = 0.6 oz pure alcohol) pt states she has one glass of wine with dinner Comments Unknown Sex and Gender Information Value Date Recorded Sex Assigned at Not on file Legal Sex Female 7:54 PM EDT Gender Identity Not on file Sexual Orientation Not on file Obstetrics History Last Filed Vital Signs Vital Sign Reading Time Taken Comments Blood Pressure 158/87 04/09/2023 10:41 PM EDT after ambulating to bathroom Pulse 78 04/09/2023 10:41 PM EDT Temperature 36.8 C (98.2 F) 04/09/2023 7:56 PM EDT Respiratory Rate 18 04/09/2023 10:4 1 PM EDT Oxygen Saturation 95% 04/09/2023 10: 00 PM EDT Inhaled Oxygen Concentration - - Weight 68.5 kg (151 lb) 04/09/2023 7:56 PM EDT Height 167.6 cm (5' 6 ) 04/09/2023 7:56 PM EDT Body Mass Index 24.37 04/09/2023 7:56 PM EDT Plan of Treatment Health Maintenance Due Date Last Done Comments Wellness Exam Medicare 1948 Hepatitis C Screening 1963 Zoster (1 of 2) 1996 Bone Density Screening 01/01/2012 Pneumococcal Vaccine 50+ (2 of 2 - PCV20 or PCV21) 05/14/2021 05/14/2020 RSV or 60+ (1 - 1-dose 75+ series) 2021 COVID-19 Vaccine ( - season) 2024 09/05/2022, 01/24/2022, 06/17/2021, Additional history exists Influenza Vaccine (#1) 2025 , 07/26/2021, 07/12/2020, Additional history exists DTaP/TDaP/Td (3 - Td or Tdap) 04/09/2033 04/09/2023, 09/03/2018 Hepatitis B Vaccine Aged Out No longe r eligible based on patient's age to complete this topic Meningococcal B Vaccine Aged Out No l onger eligible based on patient's age to complete this topic Insurance [employer] [facility] MEDICARE IN PART A AND B MEDIC[facility]
--- OUTSIDE RECORDS SUMMARY | 2025-06-10 10:38 | XMS_ITS | Clinical Summary ---
Author Organization [facility] Address [address] [place] [id number] Care Team Providers Care Transportation Department Supervisor Name Role Phone Wyatt Torres MD Primary Care Provider [phone] Source Comments This information has been disclosed to you from confidential records protectedfrom disclosure by state law. You shall make no further disclosure of thisinformation without the specific, written, and informed release of theindividual to whom it pertains, or as otherwise permitted by law. A generalauthorization for the release of medical or other information is not sufficientfor the purposes of therelease of HIV test results or diagnoses. [id number] Allergies Active Allergy Reactions Criticality Noted Date Comments Penicillins Nausea And Vomiting 04/09/2023 Immunizations Immunization Administration Dates Next Due tdap 04/09/2023 Social History Tobacco Use Types Packs/Day Years Used Date Smoking Tobacco: Former Cigarettes 1 40 1 12/09/1972 - 10/08/2013 Smokeless Tobacco: Never Tobacco Cessation:Counseling Given: Not Answered Alcohol Use Standard Drinks/Week Comments Never 0 (1 standard drink = 0.6 oz pur e alcohol) Comments Unknown Sex and Gender Information Value Date Recorded Sex Assigned at Not on file Legal Sex Female 2:05 PM EDT Gender Identity Not on file Sexual Orientation Not on file Last Filed Vital Signs Vital Sign Reading Time Taken Comments Blood Pressure 169/92 04/09/2023 2:20 PM EDT Pulse 81 04/09/2023 2:20 PM EDT Temperature 36.9 C (98.4 F) 04/09/2023 2:20 PM EDT Respiratory Rate 16 04/09/2023 2:20 PM EDT Oxygen Saturation 99% 04/09/2023 2:20 PM EDT Inhaled Oxygen Concentration 99% 04/09/2023 2 :20 PM EDT Weight - - Height - - Body Mass Index - - Plan of Treatment Health Maintenance Due Date Last Done Comments Alcohol Misuse Screening 1963 Depression Screening 1963 Immunization: Zoster (1 of 2) 1996 Lung Cancer Screening 1996 Osteoporosis Screening (DXA Scan) 1996 Immunization: Pneumococcal ( 2 of 2 - PCV20 or PCV21) 05/14/2021 05/14/2020 Immunization: RSV (Adult) (1 - 1-dose 75+ series) 2021 Immunization: COVID-19 ( season) 2024 09/05/2022, 01/24/2022, 06/17/2021, Additional history exists Immunization: Influenza (MyC lopez) (#1) 2025 07/11/2022, 07/26/2021, 07/12/2020, Additional history exists Immunization: DTaP/Tdap/Td ( 3 - Td or Tdap) 04/09/2033 04/09/2023, 09/03/2018 Insurance MEDICARE A AND B [employer] Care Teams Transportation Department Supervisor Relationship Specialty Start Date End Date Wyatt Torres MD [address] [place] [address] [place] [id number] PCP - General Family Medicine 04/09/23
--- OUTSIDE RECORDS SUMMARY | 2025-06-10 10:38 | XMS_ITS | Clinical Summary ---
Author Organization [facility] Address [address] [place] [address] Care Team Providers Care Computer Installer Name Role Phone Amparo Arrington MD Primary Care Provider [phone] Allergies Active Allergy Reactions Criticality Noted Date Comments Penicillins Rash Low 06/30/2024 Sulfa Drugs Rash Low 06/30/2024 Medications potassium chloride CR 10 MEQ PO ER tablet Take 1 tablet (10 mEq) by mouth 1 (one) time each day. Do not crush or chew. Active acetaminophen (Tylenol) 500 MG tablet Take 1 tablet (500 mg) by mouth every 6 (six) hours if needed. Active traMADol (Ultram) 50 MG tablet Take 1 tablet (50 mg) by mouth every 6 (six) hours if needed for severe pain. Active spironolactone (Aldactone) 25 MG tablet Take 1 tablet (25 mg) by mouth 1 (one) time each day. Active metOLazone (Zaroxolyn) 2.5 MG tablet Take 1 tablet (2.5 mg) by mouth 1 (one) time each day. Active carvedilol (Coreg) 12.5 MG tablet Take 1 tablet (12.5 mg) by mouth 2 (two) times a day with meals. Active levothyroxine (Synthroid, Levoxyl) 112 MCG tablet Take 1 tablet (112 mcg) by mouth 1 (one) time each day before breakfast. Active simvastatin (Zocor) 20 MG tablet Take 1 tablet (20 mg) by mouth every night. Active cetirizine (ZyrTEC) 10 MG tablet Take 1 tablet (10 mg) by mouth 1 (one) time each day. Active hydroxychloroquine (Plaquenil) 200 MG tablet Take 1 tablet (200 mg) by mouth 1 (one) time each day. Active losartan (Cozaar) 100 MG tablet Take 1 tablet (100 mg) by mouth 1 (one) time each day. Active aspirin 81 MG EC tablet Take 1 tablet (81 mg) by mouth 1 (one) time each day. Active predniSONE (Deltasone) 5 MG tablet Take 1 tablet (5 mg) by mouth 1 (one) time each day. Active hydrOXYzine pamoate (Vistaril) 25 MG capsule Take 1 capsule (25 mg) by mouth every 6 (six) hours if needed for anxiety. 30 capsule 4 Active cyclobenzaprine (Flexeril) 5 MG tablet Take 1 tablet (5 mg) by mouth 3 (three) times a day for 15 days. 45 tablet 4 Active naloxone (Narcan) 4 mg/0.1 mL nasal spray 1. Give 1 spray in nostril for no/slow breathing or cannot wake after opioid use 2. Call 911 3. Repeat in other nostril if symptoms continue 1 each 4 Active ondansetron ODT (Zofran-ODT) 4 MG disintegrating tablet Take 1 tablet (4 mg) by mouth every 6 (six) hours if needed for nausea or vomiting. 20 tablet 4 Active Active Problems Problem Noted Date Diagnosed Date Hypomagnesemia 07/02/2024 Overview (07/02/2024): Replace as needed Fall, initial encounter 06/30/2024 Overview (06/30/2024): Admit T Tertiary 07/01 Multiple fractures of pelvis without disruption of pelvic ring, initial encounter for closed fracture 06/30/2024 Overview (07/04/2024): Non-operative intervention per ortho standpoint Protected weight bearing of RLE Need to ambulate 30 feet; PMF's reviewed and stable PT/OT as tolerated [facility] Acquired hypothyroidism 06/30/2024 Overview (06/30/2024): Continue home levothyroxine Complicates all aspects of care Coronary artery disease invo lving [place] coronary artery of [place] heart without angina pectoris 06/30/2024 Overview (06/30/2024): Remote STEMI S/p PCIx1 vessel Off antiplatelets >2 years ago Mildly tortuous abdominal aorta with moderate calcified and noncalcified atherosclerotic disease. Calcified atherosclerotic disease of the splenic artery and of the bilateral renal arteries noted on imaging; Follow up with Cardiology for surveillance Primary hypertension 06/30/2024 Overview (07/03/2024): Complicates all aspects of care Increases morbidity and mortality Resumed home spirolactone, losartan, and Coreg Increased Coreg to 25 mg BID Hyponatremia 06/30/2024 Overview (07/04/2024): Na 126 on admission NS IVMF 75ml/hr Recheck electrolytes; continues to have low sodium; q6h sodium checks urine sodium, urine osm, serum osm were stable Discontinue compazine Hydration and nutrition 07/03: Discontinue IVF, q6h sodium checks, and 1500 ml fluid restrictions Improving, continue fluid restriction over 48 hours Cellulitis 06/30/2024 Overview (06/30/2024): LLE Venous duplex completed; no evidence of DVT Doxycycline started 06/30 for 5 days HLD (hyperlipidemia) 06/30/2024 Overview (06/30/2024): Resume home medications as appropriate Multiple rib fractures 06/30/2024 Overview (06/30/2024): Nondisplaced lateral right fourth rib fracture. Nondisplaced anterior left fourth and fifth rib fractures Pulm hygiene, IS, multimodal pain control Supplemental O2 as needed Pancreatic duct dilated 06/30/2024 Overview (06/30/2024): mild diffuse pancreatic ductal dilatation without obstructing stone or pancreatic head mass identified noted on imaging Follow up with PCP Multiple renal cysts 06/30/2024 Overview (06/30/2024): Right interpolar region renal cortical cyst measures approximately 1.3 cm. Bilateral renal cortical hypoenhancing foci that likely represent additional small cysts Follow up with PCP for surveillance Multilevel degenerative disc disease 06/30/2024 Overview (06/30/2024): Cervical, thoracic, and lumbar Follow up with PCP as needed Small vessel disease, cerebrovascular 06/30/2024 Overview (06/30/2024): Chronic; noted on imaging Resume home meds as appropriate Follow up with PCP for surveillance Immunizations Immunization Administration Dates Next Due Tdap 06/30/2024 Social History Tobacco Use Types Packs/Day Years Used Date Smoking Tobacco: Never Smokeless Tobacco: Never Tobacco Cessation:Counseling Given: Not Answered Alcohol Use Standard Drinks/Week Comments Never 0 (1 standard drink = 0.6 oz pur e alcohol) Humiliation, Afraid, Rape, a nd Kick questionnaire Answer Date Recorded Within the last year, have y ou been afraid of your partner or ex-partner? Patient unable to answer 07/01/2024 Within the last year, have y ou been humiliated or emotionally abused in other ways by your partner or ex-partner? Patient unable to answer 07/01/2024 Within the last year, have y ou been kicked, hit, slapped, or otherwise physically hurt by your partner or ex-partner? Patient unable to answer 07/01/2024 Within the last year, have y ou been raped or forced to have any kind of sexual activity by your partner or ex-partner? Patient unable to answer 07/01/2024 Hunger Vital Sign Answer Date Recorded Within the past 12 months, y ou worried that your food would run out before you got the money to buy more. Never true 07/01/20 24 Within the past 12 months, t he food you bought just didn't last and you didn't have money to get more. Never true 07/01/2024 PRAPARE - Transportation Answer Date Re corded In the past 12 months, has l ack of transportation kept you from medical appointments or from getting medications? No 06/22 In the past 12 months, has l ack of transportation kept you from meetings, work, or from getting things needed for daily living? No 07/01/2024 Housing Stability Vital Sign Answer Wesley e Recorded In the last 12 months, was t here a time when you were not able to pay the mortgage or rent on time? No 07/01/2024 In the last 12 months, how many places have you lived? 1 07/01/2024 In the last 12 months, was t here a time when you did not have a steady place to sleep or slept in a correction (including now)? No 07/01/2024 Utilities Answer Date Recorded In the past 12 months has th e [employer], gas, oil, or water [employer] threatened to shut off services in your home? No 07/01/2024 Comments Unknown Sex and Gender Information Value Date Recorded Sex Assigned at Not on file Legal Sex Female 8:39 PM EDT Gender Identity Not on file Sexual Orientation Not on file Last Filed Vital Signs Vital Sign Reading Time Taken Comments Blood Pressure 104/65 07/04/2024 11:47 AM EDT Pulse 59 07/04/2024 11:47 AM EDT Temperature 36.5 C (97.7 F) 07/04/2024 11:47 AM EDT Respiratory Rate 16 07/04/2024 11:47 AM EDT Oxygen Saturation 95% 07/04/2024 11:47 AM EDT Inhaled Oxygen Concentration - - Weight 68.1 kg (150 lb 2.1 oz) 06/30/2024 9:50 P M EDT Height 167.6 cm (5' 6 ) 06/30/2024 9:50 PM EDT Body Mass Index 24.23 06/30/2024 9:50 PM EDT Plan of Treatment Health Maintenance Due Date Last Done Comments [facility]-Bone Density Scan 1945 [facility]-Depression Screening 1945 [facility]-Medicare Annual Wellness (AWV) 1945 [facility]-/Child/Adol SDOH Screenings 01/01/1946 [facility]-Zoster Vaccines (1 of 2) 1965 [facility]-RSV Vaccine: 60+ Years or (1 - 1-dose 75+ series) 2021 [id number] Vaccine ( season) 2024 08/16/2023, 05/29/2023, 09/05/2022, Additional history exists [facility]- SDOH Screenings 12/29/2024 [facility]-Adult SDOH Screenings 12/29/2024 07/01/2024 [facility]-Influenza Vaccine (#1) 06/22/202507/11, 07/26/2021, 07/12/2020, Additional history exists [facility]-DTaP,Tdap,and Td Vaccines (4 - Td or Tdap) 06/30/2034 06/30/2024, 04/09/2023, 09/03/2018 [facility]-Pneumococcal Vaccine: 50+ Years Completed 07/12/2023, 05/14/2020 [facility]-Hepatitis C Screening Completed 06/30/2024 HPV Vaccines Aged Out No longer eligi ble based on patient's age to complete this topic [facility]-HIB Vaccines Aged Out No longer e ligible based on patient's age to complete this topic [facility]-Hepatitis A Vaccines Aged Out No longer eligible based on patient's age to complete this topic [facility]-IPV Vaccines Aged Out No longer e ligible based on patient's age to complete this topic [facility]-Rotavirus Vaccines Aged Out No lo nger eligible based on patient's age to complete this topic Procedures Procedure Name Priority Date/Time Associated Diagnosis Comments HEPATITIS C ANTIBODY - ED W/REFLEX TO HCV QUANT PCR STAT 06/30/2024 1:15 AM EDT from Last 3 Months or Most Recently Relevant to Health Maintenance Results * Hepatitis C Antibody - ED (06/30/2024 1:15 AM EDT) Hepatitis C Antibody Negative Negative 06/30/2024 2:20 AM EDT [facility] Blood Venous blood specimen / Unknown Venipuncture / Unknown 06/30/2024 1:15 AM EDT 06/30/2024 1:40 AM EDT us Sami Rowell MD LAB BLOOD ORDERABLES Final Re sult [facility] [address] [place] [id number] from Last 3 Months or Most Recently Relevant to Health Maintenance Insurance MEDICARE [facility] [place] [id number] Advance Directives * Full Code (Latest Code Status on File) Date Activated Date Inactivated Comments 07/04/2024 1:04 PM * Full Code Date Activated Date Inactivated Comments 06/30/2024 8:06 AM 07/04/2024 1:04 PM Question Answer Comments Patient has decision-making capacity? Yes Care Teams Computer Installer Relationship Specialty Start Date End Date Amparo Arrington MD [address] [place] [address] [address] [place] [address] PCP - General 03/04/21
--- OUTSIDE RECORDS SUMMARY | 2025-06-10 10:39 | XMS_ITS | Patient Health Record ---
Author Organization [facility] Address [address] [facility] [address] [place] [id number] Care Team Providers Care Bell Spinner Name Role Phone Raul Torres Primary Care Provider [phone] Channing Garcia Unavailable [phone] Marie Helm Unavailable [phone] Oneida Edwards Unavailable [phone] Allergies Allergen (clinical drug ingredient) Drug/Non Drug [...] Active Results Component Value Reference Range Notes Cortisol AM Reviewed date:04/14/2025 01:09:28 PM Interpretation: Performing Lab: Notes/Report: Test performed by [facility] [address] [place], [place] [address]Clone Jasmine Farmer, [place] [address] Gilmer Lowe MD, Edging Machine Operator CLIA: [id number] Cortisol AM 5.3 6.0-18.4 ug/dL P-Basic Metabolic Panel (BMP ) Reviewed date:05/26/2025 10:23:05 PM Interpretation:Na 122, cl 86, gluc 102 Performing Lab: Notes/Report: Test performed by [facility] [address] [place], [place] [address]Cl[address], [place] [address] Gilmer Lowe MD, Edging Machine Operator CLIA: [id number] Sodium 122 135-145 mmol/L Potassium 4.2 3.5-5.3 mmol/L Chloride 86 97-108 mmol/L CO2 25 20-32 mmol/L Glucose 102 65-99 mg/dL BUN 19 8-23 mg/dL Creatinine 0.85 0.50-1.00 mg/dL Calcium 9.5 8.6-10.4 mg/dL eGFR by Creatinine 70 >59 mL/min/1.73m2 Urinalysis - Inhouse Reviewed date:05/28/2025 03:50:05 PM Interpretation: Performing Lab: Notes/Report: Color/Clarity yellow/clear Leuk neg Nitrite neg Urobili 3.2 Protein neg pH 8.0 Blood neg Sp. Gr. 1.015 Ketone neg Bili neg Gluc neg H-Cardiac Enzymes Reviewed date:03/12/2025 11:04:11 AM Interpretation: Performing Lab: Notes/Report: CK 133 30-135 U/L CKMB 3.9 0.0-2.03 ng/ml CKMB INDEX 2.9 0-4.0 U/L TROP 0.02 0.00-0.034 ng/ml <0.012-0.034 ng/mL NORMAL 0.035 - >0.120 ng/mL ELEVATED* *Serial testing recommended. A rise and fall with peak greater than 0.6 ng/mL may indicate acute myocardial infarction, but is not independently diagnostic. Clinical correlation is necessary. *ALERT* High levels of Biotin can falsely depress Troponin results. Many dietary supplements promoted for hair, skin, and nail benefits contain biotin levels up to 650 times the recommended daily intake of biotin. In addition to dietary supplements, Biotin is occasionally prescribed for medical conditions. H-Magnesium Reviewed date:03/12/2025 11:04:11 AM Interpretation: Performing Lab: Notes/Report: MG 1.5 1.6-2.3 mg/dl H-PHOS Reviewed date:03/12/2025 11:04:11 AM Interpretation: Performing Lab: Notes/Report: PHOS 2.8 2.5-4.5 mg/dl M-Hemoglobin and Hematocrit Reviewed date:03/12/2025 11:04:11 AM Interpretation: Performing Lab: Notes/Report: HGB 11.4 12.2-16.2 g/dL HCT 32.1 37.0-47.0 % H-BMP Reviewed date:03/12/2025 11:04:11 AM Interpretation: Performing Lab: Notes/Report: NA 117 136-145 mmol/L K 2.7 3.5-5.1 mmoL/L CRITICAL RESULT Results called and read back/verified to: Herminio DUMONT on 03/12/25 at 0928 By Christiane Awad CL 86 98-107 mmol/L CO2 27 22.0-30.0 mmol/L GAP 6.7 5-15 mEq/L BUN 11 7-17 mg/dl CREATT 0.80 0.52-1.04 mg/dl CRCLE 51 50-200 mL/min GFRAA 84 >60 ML/MIN EGFR 69 >60 ml/min GLU 97 74-100 mg/dl CA 8.2 8.4-10.2 mg/dl H-Urinalysis (cathed specime n) Reviewed date:07/16/2024 10:29:17 [...] None 0-3 #/hpf USQEPICATH None 0-5 #/hpf CBC Venipuncture (in house) Reviewed date:04/16/2025 11:50:29 [...] - 38 platlet 197 100 - 400 P-Basic Metabolic Panel (BMP ) Reviewed date:04/14/2025 01:09:28 PM Interpretation: Performing Lab: Notes/Report: Test performed by [email or web address] [address] [place] [address] , [address], [place] [address] Gilmer Lowe MD, Edging Machine Operator CLIA: [id number] Sodium 128 135-145 mmol/L Potassium 3.7 3.5-5.3 mmol/L Chloride 92 97-108 mmol/L CO2 24 22-32 mmol/L Glucose 93 65-99 mg/dL BUN 16 8-23 mg/dL Creatinine 1.02 0.50-1.00 mg/dL Calcium 9.2 8.6-10.4 mg/dL eGFR by Creatinine 56 >59 mL/min/1.73m2 Covid test (in house) Reviewed date:06/19/2024 04:06:30 [...] - 38 plat 286 100 - 400 H-BMP Reviewed date:03/17/2025 11:12:11 AM Interpretation: Performing Lab: Notes/Report: NA 122 136-145 mmol/L K 4.0 3.5-5.1 mmoL/L CL 93 98-107 mmol/L CO2 23 22.0-30.0 mmol/L GAP 10.0 5-15 mEq/L BUN 8 7-17 mg/dl CREATT 0.60 0.52-1.04 mg/dl CRCLE 52 50-200 mL/min GFRAA 117 >60 ML/MIN EGFR 97 >60 ml/min GLU 87 74-100 mg/dl CA 8.3 8.4-10.2 mg/dl H-TSH Reviewed date:03/17/2025 11:12:11 AM Interpretation: Performing Lab: Notes/Report: TSH 4.57 0.465-4.68 uIU/mL H-BMP Reviewed date:03/17/2025 11:12:11 AM Interpretation: Performing Lab: Notes/Report: NA 125 136-145 mmol/L K 4.6 3.5-5.1 mmoL/L Delta: 3.4 on 03/13/25 CL 100 98-107 mmol/L CO2 21 22.0-30.0 mmol/L GAP 8.6 5-15 mEq/L BUN 10 7-17 mg/dl CREATT 0.70 0.52-1.04 mg/dl CRCLE 51 50-200 mL/min GFRAA 98 >60 ML/MIN EGFR 81 >60 ml/min GLU 81 74-100 mg/dl CA 8.3 8.4-10.2 mg/dl H-CBC Reviewed date:03/17/2025 11:12:11 AM Interpretation: Performing Lab: Notes/Report: WBC 8.8 4.8-10.8 K/mm3 Delta: 13.2 o n 03/13/25 RBC 3.33 4.20-5.40 M/mm3 HGB 11.5 12.2-16.2 g/dL HCT 32.4 37.0-47.0 % MCV 97.3 81-99 fl MCH 34.5 27.0-31.2 pg MCHC 35.5 31.8-35.4 g/dL RDW-SD 46.4 RDW 12.9 11.5-17.5 % PLT 205 142-424 K/mm3 MPV 9.3 7.4-10.4 fl NE% 73.0 37.0-80.0 % LY% 12.7 10-50 % MO% 10.4 1.7-9.3 % EO% 1.9 0.1-12.0 % BA% 0.6 0.1-2.0 % NRBC% 0 IG% 1.4 NE# 6.4 1.8-7.8 K/mm3 LY# 1.1 0.7-4.5 K/mm3 MO# 0.9 0.1-1.0 K/mm3 EO# 0.2 0.0-0.4 Kmm3 BA# 0.1 0-0.2 K/mm3 NRBC# 0 IG# 0.12 H-BMP Reviewed date:03/13/2025 08:48:08 AM Interpretation: Performing Lab: Notes/Report: NA 122 136-145 mmol/L K 3.4 3.5-5.1 mmoL/L Delta: 2.7 on 03/12/25 CL 89 98-107 mmol/L CO2 26 22.0-30.0 mmol/L GAP 10.4 5-15 mEq/L BUN 8 7-17 mg/dl Delta: 11 on 03/12/25 CREATT 0.70 0.52-1.04 mg/dl CRCLE 53 50-200 mL/min GFRAA 98 >60 ML/MIN EGFR 81 >60 ml/min GLU 80 74-100 mg/dl CA 8.3 8.4-10.2 mg/dl H-CBC Reviewed date:03/13/2025 08:48:08 AM Interpretation: Performing Lab: Notes/Report: WBC 13.2 4.8-10.8 K/mm3 RBC 3.77 4.20-5.40 M/mm3 HGB 13.0 12.2-16.2 g/dL Delta: 11.4 o n 03/12/25 HCT 36.2 37.0-47.0 % MCV 96.0 81-99 fl MCH 34.2 27.0-31.2 pg MCHC 35.6 31.8-35.4 g/dL RDW-SD 44.6 RDW 12.6 11.5-17.5 % PLT 232 142-424 K/mm3 MPV 9.3 7.4-10.4 fl NE% 82.3 37.0-80.0 % LY% 7.4 10-50 % MO% 8.2 1.7-9.3 % EO% 0.3 0.1-12.0 % BA% 0.7 0.1-2.0 % NRBC% 0 IG% 1.1 NE# 10.9 1.8-7.8 K/mm3 LY# 1.0 0.7-4.5 K/mm3 MO# 1.1 0.1-1.0 K/mm3 EO# 0.0 0.0-0.4 Kmm3 BA# 0.1 0-0.2 K/mm3 NRBC# 0 IG# 0.15 TEN-UTI panel Reviewed date:06/16/2024 08:37:43 PM Interpretation:Negative Performing Lab: Notes/Report: Negative P-Magnesium Reviewed date:06/23/2024 07:53:54 PM Interpretation:Normal Performing Lab: Notes/Report: Test performed by [facility] [address] [place] [address] , [address], [place] [address] Gilmer Lowe MD, Edging Machine Operator CLIA: [id number] Magnesium 2.0 1.6-2.4 mg/dL P-Basic Metabolic Panel (BMP ) Reviewed date:06/23/2024 07:53:54 PM Interpretation:Na 129, chlor 94 Performing Lab: Notes/Report: Test performed by [facility] [address] [place] [address] , [address], [place] [address] Gilmer Lowe MD, Edging Machine Operator CLIA: [id number] Sodium 129 135-145 mmol/L Potassium 4.8 3.5-5.3 mmol/L Chloride 94 97-108 mmol/L CO2 24 22-32 mmol/L Glucose 98 65-99 mg/dL BUN 15 8-23 mg/dL Creatinine 0.83 0.50-1.00 mg/dL Calcium 9.4 8.6-10.4 mg/dL eGFR by Creatinine 72 >59 mL/min/1.73m2 Urinalysis - Inhouse Reviewed date:06/12/2024 11:48:26 AM Interpretation: Performing Lab: Notes/Report: Color/Clarity yellow/clear Leuk neg Nitrite neg Urobili 3.2 Protein neg pH 7.0 Blood neg Sp. Gr. 1.015 Ketone neg Bili neg Gluc neg CBC Fingerstick (in house) Reviewed date:02/05/2025 01:51:50 PM Interpretation: Performing Lab: Notes/Report: wbc 13.5 3.5 - 10 lym 12.3 15 - 50 mid 3.5 2 - 15 gran 84.2 35 - 80 rbc 4.11 3.5 - 5.5 hgb 13.9 11.5 - 16.5 hct 40.8 35 - 55 mcv 99.2 75 - 100 mch 33.7 25 - 35 mchc 34.0 31 - 38 plat 185 100 - 400 CBC Fingerstick (in house) Reviewed date:02/05/2025 01:51:50 PM Interpretation: Performing Lab: Notes/Report: wbc 13.5 3.5 - 10 lym 12.3 15 - 50 mid 3.5 2 - 15 gran 84.2 35 - 80 rbc 4.11 3.5 - 5.5 hgb 13.9 11.5 - 16.5 hct 40.8 35 - 55 mcv 99.2 75 - 100 mch 33.7 25 - 35 mchc 34.0 31 - 38 plat 185 100 - 400 CBC Venipuncture (in house) Reviewed date:06/29/2024 10:21:31 [...] - 38 platlet 303 100 - 400 P-Comprehensive Metabolic Pa rita (CMP) Reviewed date:06/29/2024 10:21:31 PM Interpretation: Performing Lab: Notes/Report: Test performed by [email or web address], [address] , [address], [place] [address] Gilmer Lowe MD, Edging Machine Operator CLIA: [id number] Sodium 128 135-145 mmol/L Potassium 4.1 3.5-5.3 [...] 0.5 <0.2-1.2 mg/dL A/G Ratio 2.0 1.1-2.5 R-R-Plpogyko Protein (CRP) Reviewed date:06/29/2024 10:21:31 PM Interpretation: Performing Lab: Notes/Report: Test performed by [email or web address] , [facility], [place] [address] Gilmer Lowe MD, Edging Machine Operator CLIA: [id number] C-Reactive Protein (CRP) 0.31 <0.50 mg/dL P-Sed Rate (ESR) Reviewed date:06/29/2024 10:21:31 PM Interpretation: Performing Lab: Notes/Report: [facility] performed by [facility] , [facility], [place] [address] Gilmer Lowe MD, Edging Machine Operator CLIA: [id number] Erythrocyte Sedimentation Rate (ESR), Automated 13 <31 mm/hr P-Fibrinogen Reviewed date:06/29/2024 10:21:31 PM Interpretation: Performing Lab: Notes/Report: Test performed by [email or web address] , [facility], [place] [address] Gilmer Lowe MD, Edging Machine Operator CLIA: [id number] Fibrinogen 410 187-446 mg/dL P-Iron Reviewed date:06/29/2024 10:21:31 PM Interpretation: Performing Lab: Notes/Report: Test performed by [email or web address] , [address], [place] [address] Gilmer Lowe MD, Edging Machine Operator CLIA: [id number] Iron 81 37-145 ug/dL P-PT/PTT Panel Reviewed date:06/29/2024 10:21:31 PM Interpretation: Performing Lab: Notes/Report: Test performed by [email or web address] , [facility], [place] [address] Gilmer Lowe MD, Edging Machine Operator CLIA: [id number] PT 10.5 9.5-12.2 sec INR 1.0 0.9-1.2 [...] has not been validated for this assay. M-Urine Culture(cathed speci men) Reviewed date:07/17/2024 10:44:13 PM Interpretation:Negative Performing Lab: Notes/Report: CUUCATH No growth. BMP Reviewed date:04/02/2025 02:57:40 PM Interpretation: Performing Lab: Notes/Report: P-Basic Metabolic Panel ([facility] ) Reviewed date:10/07/2024 05:35:13 PM Interpretation:Na 131, cl 95, gluc 126, Cr 1.13, gfr 50 Performing Lab: Notes/Report: Test performed by [email or web address], [address] , [address], [place] [address] Gilmer Lowe MD, Edging Machine Operator CLIA: [id number] Sodium 131 135-145 mmol/L Potassium 4.6 3.5-5.3 mmol/L Chloride 95 97-108 mmol/L CO2 22 22-32 mmol/L Glucose 126 65-99 mg/dL BUN 13 8-23 mg/dL Creatinine 1.13 0.50-1.00 mg/dL Calcium 9.5 8.6-10.4 mg/dL eGFR by Creatinine 50 >59 mL/min/1.73m2 BMP Reviewed date:08/07/2024 08:32:05 AM Interpretation: Performing Lab: Notes/Report: Medications Medication SIG (Take, Route, Frequency, Duration) Notes Start Date End Date Status Lidocaine 5 % 1 patch remove after 12 hours Externally Once a day 02/17/2025 Active traMADol HCl 50 MG 1 tab(s) Orally q6h prn 024 Active Ondansetron HCl 4 MG 1 tablet Orally 3 t imes a day prn Active Benzonatate 100 MG 1 capsule as needed Orally Three times a day 05/29/2025 Active Tamsulosin HCl 0.4 MG 1 capsule Orally O nce a day; Duration: 90 days Active Aspirin Adult Low Dose 81 MG 1 tab(s) or ally once a day Active Potassium Chloride Cathy ER 1 0 MEQ 1 tablet with food Orally Twice a day; Duration: 90 days Active Carvedilol 12.5 MG 1 tab(s) Orally 2 ti mes a day Active Acetaminophen 500 MG 1 capsule as needed Orally every 6 hrs prn Active Chlorthalidone 12.5 MG 1 tablet in the m orning with food Orally daily; Duration: 90 days Active predniSONE 5 MG 1 tab orally once a day Active Cyclobenzaprine HCl 5 MG 1 tab 3 times a day As needed Active Plaquenil 200 MG 1 tab(s) orally daily Active Pravastatin Sodium 40 MG 1 tablet Orally Once a day Active Levothyroxine Sodium 112 MCG 1 tablet in the morning on an empty stomach Orally Once a day; Duration: 90 days Active Melatonin 3 MG 1 tablet in the even ing at HS Active Hyoscyamine Sulfate 0.125 MG 1 tab(s) Or ally four times a day as needed for diarrhea Active Immunizations Vaccine Route Administration Date Status Comme nts Tetanus Tdap-Adacel (over 7yrs) IM Intramuscular 01/07/2008 Administered Tetanus Tdap-Adacel (over 7yrs) IM Intramuscular 09/03/2018 Administered Fluzone High Dose (65yr and older) IM Intramuscular 07/25/2018 Administered Fluzone High Dose (65yr and older) IM Intramuscular 07/26/2021 Administered Fluzone High Dose (65yr and older) IM Intramuscular 07/12/2023 Administered Fluzone High Dose (65yr and older) IM Intramuscular 08/14/2024 Administered Fluzone High Dose (65yr and older) IM Intramuscular 07/11/2022 Administered Fluzone High Dose (65yr and older) IM Intramuscular 07/12/2020 Administered Fluzone High Dose (65yr and older) IM Intramuscular 08/07/2017 Administered Fluzone High Dose (65yr and older) IM Intramuscular 07/24/2016 Administered Fluzone High Dose (65yr and older) IM Intramuscular 08/16/2015 Administered Fluzone Quad (6months&older) IM Intramuscular 08/06/2019 Administered H1N1 flu vaccine IM Intramuscular 09/13/2009 Administered PNEUMOVAX 23 VACCINE IM Intramuscular 07/12/2023 Administe red Prevnar (PCV13) IM Intramuscular 05/14/2020 Administered xFlu shot-36 months and older IM Intramuscular 08/31/2009 Administered COVID 19 Moderna Unknown 01/24/2022 Administered COVID 19 Moderna Unknown 12/16/2020 Administered COVID 19 Moderna Unknown 11/18/2020 Administered COVID 19 Moderna Unknown 06/17/2021 Administered Problems Problem Type SNOMED Code ICD Code Onset Dates Problem Status W/U Status Risk Notes Problem Essential hypertension (55066128) Essential (primary) hypertension (I10) Active confirmed Problem Essential hypertension (30313853) Essential hypertension (I10) Active confirmed Problem Gout attack (232963251) Gout attack (M10.9) Active confirmed Problem Rhinitis (17531247) Rhinitis (J31.0) Active con firmed Problem Osteopenia (415305615) Osteopenia (M85.80) Active confirmed Problem Altered mental statu s (611997086) Altered mental state (R41.82) Active confirmed Problem Environmental allerg y (753332651) Environmental allergies (Z91.048) Active confirmed Problem Memory loss (54956157) Memory loss (R41.3) Active confirmed Problem Inflammatory polyarthropathy (898133577) 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) Active confirmed Problem Polymyalgia rheumatica (03106586) Polymyalgia rheumatica (M35.3) Active confirmed Problem Ataxic gait (71706266) Ataxic gait (R26.0) Active confirmed Problem Acquired hypothyroidism (453921964) Acquired hypothyroidism (E03.9) Active confirmed Problem Paresthesia (finding ) (77969019) Paresthesias (R20.2) Active confirmed Problem History of circulatory system disease (916276400) 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) Active confirmed Problem Muscle spasm (98580788) Muscle spasm (M62.838) Active confirmed Problem Rheumatoid arthritis (03022855) Rheumatoid arthritis (M06.9) Active confirmed Problem Sleep disorder (72521886) Sleep disorder (G47.9) Active confirmed Problem Cervical disc disorder (331550452) DDD (degenerative disc disease), cervical (M50.30) Active confirmed Problem Primary osteoarthritis (485079241) Primary osteoarthritis (M19.91) Active confirmed Problem Dyslipidemia (614752136) Dyslipidemia (E78.5) Active confirmed Problem Atherosclerotic hear t disease of [place] coronary artery without angina pectoris (786250420460029) Atherosclerosis of [place] coronary artery without angina pectoris, unspecified whether [place] or transplanted heart (I25.10) Active confirmed Problem Impairment of balanc e (278697938) Balance problem (R26.89) Active confirmed Problem Anemia (956092771) Mild anemia (D64.9) Active c onfirmed Problem Rheumatoid arthritis (08464376) Rheumatoid arthritis, involving unspecified site, unspecified whether rheumatoid factor present (M06.9) Active confirmed Problem Sialodocholithiasis (09586929) Sialodocholithiasis (K11.5) Active confirmed Vital Signs Heart Rate 72 /min 05/26/2025 Respiratory Rate 20 /min 03/31/2025 Blood pressure diastolic 76 mm Hg 05/26/2025 Height 65 in 05/26/2025 Blood pressure systolic 110 mm Hg 05/26/2025 Weight 146.2 lbs 05/26/2025 BMI 24.33 kg/m2 05/26/2025 Encounters Encounter Location Date Provider Diagnosis [facility] [address] [place] [id number] 06/12/2024 R John Meilssa Hypokalemia E87.6 ; Hyponatremia E87.1 ; UTI (lower urinary tract infection) N39.0 ; Essential hypertension I10 and Leg edema R60.0 [facility] [address] [place] [id number] 06/17/2024 R John Melissa Edema R60.9 [facility] [address] [place] [id number] 06/19/2024 R John Melissa Acute sinusitis J01. 90 ; Edema R60.9 and Hyponatremia E87.1 [facility] [address] [place] [id number] 06/26/2024 R John Melissa Bruising T14.8XXA ; Acute sinusitis J01.90 ; Hyponatremia E87.1 and Leg edema R60.0 [place] [facility] [address] [place] [id number] 07/08/2024 Marie Helm Acquired hypothyroid ism E03.9 ; Inflammatory polyarthropathy M06.4 ; Nausea R11.0 ; Hx of arteriosclerotic cardiovascular disease Z86.79 ; Dyslipidemia E78.5 ; Essential hypertension I10 ; Rheumatoid arthritis M06.9 ; Hyponatremia E87.1 ; Fall W19.XXXA ; Rib fractures S22.39XA ; Fracture of pelvis S32.9XXA ; Sleep disorder G47.9 ; Environmental allergies Z91.048 and Hypotension due to drugs I95.2 [place] [facility] [address] [place] [id number] 07/22/2024 Marie Helm Acquired hypothyroid ism E03.9 ; Inflammatory polyarthropathy M06.4 ; Nausea R11.0 ; Hx of arteriosclerotic cardiovascular disease Z86.79 ; Dyslipidemia E78.5 ; Essential hypertension I10 ; Rheumatoid arthritis M06.9 ; Fall W19.XXXA ; Rib fractures S22.39XA ; Fracture of pelvis S32.9XXA ; Sleep disorder G47.9 ; Environmental allergies Z91.048 and Urinary retention R33.9 [facility] [address] [place] [id number] 08/14/2024 R John Melissa URI (upper respirato ry infection) J06.9 ; Urinary retention R33.9 ; Encounter for immunization Z23 and Dependent edema R60.9 [facility] [address] [place] [id number] 09/30/2024 R John Melissa Leg edema R60.0 ; Hypokalemia E87.6 and Pain of hand, unspecified laterality M79.643 [facility] [address] [place] [id number] 11/13/2024 R John Melissa Chronic diarrhea K52 .9 and Rheumatoid arthritis, involving unspecified site, unspecified whether rheumatoid factor present M06.9 [facility] [address] [place] [id number] 12/12/2024 Oneida Edwards Open wound of right lower extremity, initial encounter S81.801A [facility] [address] [place] [id number] 12/25/2024 R John Melissa Rheumatoid arthritis M06.9 [facility] [address] [place] [id number] 02/05/2025 R John Melissa Acute sinusitis J01. 90 ; Inflammatory polyarthropathy M06.4 ; Polymyalgia rheumatica M35.3 ; Acquired hypothyroidism E03.9 ; Dyslipidemia E78.5 ; Essential hypertension I10 and BMI 24.0-24.9, adult Z68.24 [facility] [address] [place] [id number] 02/17/2025 R John Melissa Glossitis K14.0 ; Shoulder pain M25.519 and BMI 24.0-24.9, adult Z68.24 [address] [place] [id number] 03/31/2025 Marie Helm Polymyalgia rheumati ca M35.3 ; Rib fractures S22.39XA ; Acquired hypothyroidism E03.9 ; Dyslipidemia E78.5 ; Essential hypertension I10 ; Nausea R11.0 ; Leg edema R60.0 ; Hx of arteriosclerotic cardiovascular disease Z86.79 ; Accidental fall, subsequent encounter W19.XXXD ; Sleep disorder G47.9 and Hypokalemia E87.6 [facility] [address] [place] [id number] 04/09/2025 R John Melissa Hyponatremia E87.1 ; Rib fractures S22.39XA ; Chronic diarrhea K52.9 and BMI 23.0-23.9, adult Z68.23 [facility] [address] [place] [id number] 04/16/2025 R John Melissa Acute sinusitis J01. 90 ; Adhesive capsulitis of left shoulder M75.02 ; Dyslipidemia E78.5 ; Rib fractures S22.39XA ; Leg edema R60.0 and Onychomycosis B35.1 [facility] [address] [place] [id number] 05/07/2025 R John Melissa Inflammatory polyarthropathy M06.4 [facility] [address] [place], [place] [id number] 05/19/2025 R John Melissa Hyponatremia E87.1 ; Muscle weakness M62.81 and BMI 23.0-23.9, adult Z68.23 [facility] [address] [place], [place] [id number] 05/26/2025 R John Melissa Hyponatremia E87.1 ; Memory loss R41.3 and BMI 24.0-24.9, adult Z68.24 [facility] [address] [place], [place] [id number] 05/28/2025 R John Melissa Altered mental state R41.82 [facility] [address] [place], [place] [id number] 06/29/2024 R John Melissa [facility] [address] [facility] [address] [place], [place] [id number] 07/02/2024 R John Melissa Acute sinusitis J01. 90 [facility] [address] [place], [place] [id number] 07/04/2024 R John Melissa [facility] [address] [place], [place] [id number] 08/01/2024 Channing [place] Fracture of pelvis S32.9XXA [facility] [address] [facility] [address] [place], [place] [id number] 08/04/2024 R John Melissa [facility] [address] [facility] [address] [place] [id number] 08/18/2024 R John Melissa Encounter for other general examination Z00.8 [facility] [address] [place] [id number] 08/20/2024 R John Melissa [facility] [address] [place], [place] [id number] 08/21/2024 R John Melissa Rib fractures S22.39 XA [facility] [address] [facility] [address] [place] [id number] 08/26/2024 R John Melissa [facility] [address] [place] [id number] 09/04/2024 R John Melissa Fracture of pelvis S32.9XXA [facility] [address] [place], [place] [id number] 09/22/2024 R John Melissa Rib fractures S22.39 XA [facility] [address] [place] [id number] 10/01/2024 R John Melissa [facility] [address] [place] [id number] 10/08/2024 R John Melissa [facility] [address] [place], [place] [id number] 10/23/2024 R John Melissa Leg edema R60.0 [facility] [address] [place] [id number] 11/18/2024 R John Melissa Rib fractures S22.39 XA [facility] [address] [place] [id number] 11/25/2024 R John Melissa [facility] [address] [place], [place] [id number] 12/12/2024 R John Melissa Chronic diarrhea K52 .9 [facility] [address] [place], [place] [id number] 12/17/2024 R John Melissa Rib fractures S22.39 XA [facility] [address] [place], [place] [id number] 12/26/2024 R John Melissa [facility] [address] [place], [place] [id number] 2024 R John Melissa Chronic diarrhea K52 .9 [facility] [address] [place], [place] [id number] 01/06/2025 R John Melissa [facility] [address] [place], [place] [id number] 01/13/2025 R John Melissa Rib fractures S22.39 XA [facility] [address] [place], [place] [id number] 01/21/2025 R John Melissa [facility] [address] [place] [id number] 01/30/2025 R John Melissa Rib fractures S22.39 XA [facility] [address] [place], [place] [id number] 02/02/2025 R John Melissa [facility] [address] [place] [id number] 02/04/2025 R John Melissa Chronic diarrhea K52 .9 [facility] [address] [place] [id number] 02/16/2025 R John Melissa Rib fractures S22.39 XA [facility] [address] [place], [place] [id number] 03/02/2025 Marie Helm Rib fractures S22.39 XA [facility] [address] [place], [place] [id number] 03/16/2025 R John Melissa [facility] [address] [place] [id number] 03/23/2025 R John Melissa [facility] [address] [place] [id number] 04/02/2025 R John Melissa [facility] [address] [place] [id number] 04/07/2025 R John Melissa Leg edema R60.0 [facility] [address] [place], [place] [id number] 04/09/2025 R John Melissa Leg edema R60.0 [facility] [address] [place] [id number] 04/10/2025 R Jhon Melissa [facility] [address] [place] [id number] 04/13/2025 R John Melissa [facility] [address] [place] [id number] 04/13/2025 R John Melissa Acquired hypothyroid ism E03.9 [facility] [address] [place] [id number] 04/14/2025 R John Melissa [facility] [address] [place] [id number] 04/19/2025 R John Melissa Screening for osteoporosis Z13.820 [facility] [address] [place] [id number] 04/20/2025 R John Melissa [facility] [address] [place] [id number] 04/22/2025 R John Melissa Nausea R11.0 [facility] [address] [place], [place] [id number] 05/06/2025 R John Melissa Hypokalemia E87.6 [facility] [address] [place] [id number] 05/26/2025 R John Melissa [facility] [address] [place] [id number] 05/29/2025 Oneida Edwards [facility] [address] [place] [id number] 06/02/2025 R John Melissa [facility] [address] [place], [place] [id number] 06/02/2025 R John Melissa [facility] [address] [place] [id number] 06/09/2025 R John Melissa [facility] [address] [place] [id number] 06/09/2025 R John Melissa Assessments Encounter Date Diagnosis (ICD Code) Assessment Notes Treatment Notes Treatment Clinical Notes Section Notes 05/26/2025 Hyponatremia (ICD-10 - E87.1) 05/26/2025 Memory loss (ICD-10 - R41.3) 04/22/2025 Nausea (ICD-10 - R11.0) 05/06/2025 Hypokalemia (ICD-10 - E87.6) 05/07/2025 Inflammatory polyarthropathy (ICD-10 - M06.4) 05/19/2025 Hyponatremia (ICD-10 - E87.1) 05/19/2025 Muscle weakness (ICD-10 - M62.81) 05/28/2025 Altered mental state (ICD-10 - R41.82) 08/21/2024 Rib fractures (ICD-10 - S22.39XA) 09/04/2024 Fracture of pelvis (ICD-10 - S32.9XXA) 09/22/2024 Rib fractures (ICD-10 - S22.39XA) 09/30/2024 Hypokalemia (ICD-10 - E87.6) 09/30/2024 Leg edema (ICD-10 - R60.0) 03/02/2025 Rib fractures (ICD-10 - S22.39XA) 04/07/2025 Leg edema (ICD-10 - R60.0) 04/09/2025 Hyponatremia (ICD-10 - E87.1) 04/09/2025 Rib fractures (ICD-10 - S22.39XA) 04/09/2025 Leg edema (ICD-10 - R60.0) 04/13/2025 Acquired hypothyroidism (ICD-10 - E03.9) 04/16/2025 Acute sinusitis (ICD-10 - J01.90) 04/16/2025 Adhesive capsulitis of left shoulder (ICD-10 - M75.02) 04/19/2025 Screening for osteoporosis (ICD-10 - Z13.820) 03/31/2025 Polymyalgia rheumatica (ICD-10 - M35.3) 03/31/2025 Rib fractures (ICD-10 - S22.39XA) pt feels so much better; she is able to walk freely with her walker; will continue with PT until she goes home 02/05/2025 Acute sinusitis (ICD-10 - J01.90) 02/05/2025 Inflammatory polyarthropathy (ICD-10 - M06.4) 08/18/2024 Encounter for other general examination (ICD-10 - Z00.8) 06/12/2024 Hypokalemia (ICD-10 - E87.6) 06/12/2024 Hyponatremia (ICD-10 - E87.1) 06/17/2024 Edema (ICD-10 - R60.9) 06/19/2024 Acute sinusitis (ICD-10 - J01.90) 06/19/2024 Edema (ICD-10 - R60.9) Continue compression stockings. Elevate legs. Limit salt intake. 06/26/2024 Acute sinusitis (ICD-10 - J01.90) 06/26/2024 Bruising (ICD-10 - T14.8XXA) Etiology unclear. Check additional labs. Consider hematology consultation. 07/02/2024 Acute sinusitis (ICD-10 - J01.90) 07/08/2024 Inflammatory polyarthropathy (ICD-10 - M06.4) 07/08/2024 Acquired hypothyroidism (ICD-10 - E03.9) 07/22/2024 Inflammatory polyarthropathy (ICD-10 - M06.4) 07/22/2024 Acquired hypothyroidism (ICD-10 - E03.9) 08/01/2024 Fracture of pelvis (ICD-10 - S32.9XXA) 08/14/2024 URI (upper respiratory infection) (ICD-10 - J06.9) 08/14/2024 Urinary retention (ICD-10 - R33.9) 10/23/2024 Leg edema (ICD-10 - R60.0) 11/13/2024 Chronic diarrhea (ICD-10 - K52.9) She is provided an order to submit a stool sample for PCR diarrhea panel if no improvement over the next 5 to 7 days. 11/13/2024 Rheumatoid arthritis, involving unspecified site, unspecified whether rheumatoid factor present (ICD-10 - M06.9) 11/18/2024 Rib fractures (ICD-10 - S22.39XA) 12/12/2024 Chronic diarrhea (ICD-10 - K52.9) 12/12/2024 Open wound of right lower extremity, initial encounter (ICD-10 - S81.801A) Will clean the wounds with water and vinegar and apply vaseline, a nonstick dressing, and co-ban. 12/17/2024 Rib fractures (ICD-10 - S22.39XA) 12/25/2024 Rheumatoid arthritis (ICD-10 - M06.9) 2024 Chronic diarrhea (ICD-10 - K52.9) 01/13/2025 Rib fractures (ICD-10 - S22.39XA) 01/30/2025 Rib fractures (ICD-10 - S22.39XA) 02/04/2025 Chronic diarrhea (ICD-10 - K52.9) 02/16/2025 Rib fractures (ICD-10 - S22.39XA) 02/17/2025 Shoulder pain (ICD-10 - M25.519) 02/17/2025 Glossitis (ICD-10 - K14.0) 02/17/2025 BMI 24.0-24.9, adult (ICD-10 - Z68.24) 08/14/2024 Encounter for immunization (ICD-10 - Z23) 07/22/2024 Nausea (ICD-10 - R11.0) ABX discontinued 07/08/2024 Nausea (ICD-10 - R11.0) ABX discontinued 06/26/2024 Hyponatremia (ICD-10 - E87.1) 06/19/2024 Hyponatremia (ICD-10 - E87.1) 06/12/2024 UTI (lower urinary tract infection) (ICD-10 - N39.0) 02/05/2025 Polymyalgia rheumatica (ICD-10 - M35.3) 03/31/2025 Acquired hypothyroidism (ICD-10 - E03.9) 04/16/2025 Dyslipidemia (ICD-10 - E78.5) 04/09/2025 Chronic diarrhea (ICD-10 - K52.9) 09/30/2024 Pain of hand, unspecified laterality (ICD-10 - M79.643) 05/19/2025 BMI 23.0-23.9, adult (ICD-10 - Z68.23) 05/26/2025 BMI 24.0-24.9, adult (ICD-10 - Z68.24) 04/09/2025 BMI 23.0-23.9, adult (ICD-10 - Z68.23) 04/16/2025 Rib fractures (ICD-10 - S22.39XA) 02/05/2025 Acquired hypothyroidism (ICD-10 - E03.9) 03/31/2025 Dyslipidemia (ICD-10 - E78.5) 06/12/2024 Essential hypertension (ICD-10 - I10) 06/26/2024 Leg edema (ICD-10 - R60.0) 07/08/2024 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 Recommend compression socks or Ezequiel bandages as needed. Keep follow-up appoint with cardiology. 07/22/2024 Dyslipidemia (ICD-10 - E78.5) 07/08/2024 Dyslipidemia (ICD-10 - E78.5) 06/12/2024 Leg edema (ICD-10 - R60.0) Continue compression stockings. Check labs. If electrolyte abnormalities have resolved, will consider additional diuretic. 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) 07/08/2024 Hyponatremia (ICD-10 - E87.1) 07/22/2024 Fall (ICD-10 - W19.XXXA) 07/22/2024 Rib fractures (ICD-10 - S22.39XA) 07/08/2024 Fall (ICD-10 - W19.XXXA) 03/31/2025 Accidental fall, subsequent encounter (ICD-10 - W19.XXXD) 03/31/2025 Sleep disorder (ICD-10 - G47.9) 07/08/2024 Rib fractures (ICD-10 - S22.39XA) 07/22/2024 Fracture of pelvis (ICD-10 - S32.9XXA) continue to work with PT 07/22/2024 Sleep disorder (ICD-10 - G47.9) 07/08/2024 Fracture of pelvis (ICD-10 - S32.9XXA) PT will be initiated when BP stabilized 03/31/2025 Hypokalemia (ICD-10 - E87.6) 07/08/2024 Sleep disorder (ICD-10 - G47.9) 07/22/2024 Environmental allergies (ICD-10 - Z91.048) 07/22/2024 Urinary retention (ICD-10 - R33.9) 07/08/2024 Environmental allergies (ICD-10 - Z91.048) 07/08/2024 Hypotension due to drugs (ICD-10 - I95.2) Spironolactone, metolazone which were started at will be discontinued; Losartan will be disc; carvediolol decreased with hold parameters for BP and HR 07/08/2024 Other She will discus s her meds with Dr. Torres tomorrow 07/22/2024 Other wants to go mari e next week 03/31/2025 Other she does plan t o go home Plan Of Treatment Pending Test Test Name Order Date Bone density 04/19/2025 CT Scan : Hip, right, without contrast 0 05/01/2024 P-Cortisol AM 04/09/2025 Insurance Providers Payer Name Payer Address Payer Phone Subscriber Number Group Number Insured Name Patient Relationship to Insured Coverage Start Date Coverage End Date MEDICARE PART B [address] [address] [place] [address] [id number] KWASI HUYNH Self - patient is the insured [employer] [place] [place] [employer] [place] E[place]UC[place] CAP[place]RIAN [id number] [phone] [id number] KWASI HUYNH Self - patient is the insured Medications Administered Medication Instructions Date of Administration Dosage Notes depo medrol 80 mg 05/07/2025 1.5 mL Depo- Medrol 40 mg/ml 01/02/2022 1.5 mL Depo- Medrol 40 mg/ml 04/17/2022 1.5 mL Depo- Medrol 40 mg/ml 12/07/2022 1.5 mL Depo- Medrol 40 mg/ml 09/04/2023 1 mL Depo- Medrol 40 mg/ml 01/10/2024 1 mL Depo- Medrol 40 mg/ml 09/30/2024 1 mL Dexamethasone 03/07/2019 1 mL Dexamethasone 03/10/2019 1 mL Dexamethasone 03/16/2022 1 mL Dexamethasone 04/16/2025 1 mL Depo- Medrol 40 mg/ml 01/09/2022 1 mL Depo- Medrol 40 mg/ml 02/13/2020 1.5 mL Depo- Medrol 40 mg/ml 11/28/2018 1.5 mL Depo- Medrol 40 mg/ml 11/25/2018 1.5 mL Depo- Medrol 40 mg/ml 04/23/2018 1.5 mL Depo- Medrol 40 mg/ml 12/08/2013 1.5 mL Benadryl 10/21/2018 .25 mL phenergan 25 mg/ml 11/29/2023 25 mg Dexamethasone 12/19/2019 1 mL Depo- Medrol 40 mg/ml 04/09/2025 1 mL Depo- Medrol 40 mg/ml 12/25/2024 1 mL Depo- Medrol 40 mg/ml 11/13/2024 1 mL Depo- Medrol 40 mg/ml 03/11/2024 1 mL Depo- Medrol 40 mg/ml 12/11/2023 1 mL Depo- Medrol 40 mg/ml 06/21/2023 1 mL Depo- Medrol 40 mg/ml 03/08/2023 1.5 mL Depo- Medrol 40 mg/ml 01/23/2023 1.5 mL Depo- Medrol 40 mg/ml 09/18/2022 1.5 mL Depo- Medrol 40 mg/ml 08/04/2022 1.5 mL Dexamethasone 02/05/2025 1.5 mL Dexamethasone 12/18/2023 1.5 mL Dexamethasone 12/16/2018 1 mL Depo- Medrol 40 mg/ml 05/15/2023 1.5 mL Dexamethasone 11/20/2023 1 mL Dexamethasone 12/01/2013 1 mL Medical (General) History Medical History History ICD Code hyperlipidemia-followed by Dr. Arrington hypertension Hypothyroidism/goiter kidney stones allergic rhinitis ASCVD: [place] - 09/2013-followed by Dr. Arrington q 6 months cataracts Hyperuricemia Inflammatory arthritis - Dr. Cheng polymyalgia rheumatica - Dr. Skylar Bhatia Covid vaccine x2 Oct/Nov 2020 Surgical History Surgery Date(Month/Year) Thyroidectomy/Goiter removal 1999 Back 2001 Total Hysterectomy 1992 Tonsillectomy child Cardiac Stent Placed-[facility]-Dr Arrington. Dr. Santo 10/19/2013 Cataract 10/2017 Hospitalization History Reason Date(Month/Year) [facility] : fall with multiple FX ribs on the right; hyponatremia and hypokalemia 03/12-03/15/2025 Dehydration, Failure to Thrive, Acute Ur inary Retention- [facility] 07/14- Multiple rib and pelvic frac tures; hyponatremia; rheumatoid arthritis; ASCVD- 06/30- Itching, Swelling in Hands- [facility] ER 10/21 Facial Pain, Sinus Blockage- [facility] ER 01/2018 Heart Attack- [facility] 09/2013 kidney stones 1993
[2025-06-10 11:35] LABS: Alanine Aminotransferase 15 U/L (12-78); Albumin Level 4.0 g/dl (3.5-5.0); Albumin/Globulin Ratio 1.9 (1.1-1.8); Alkaline Phosphatase 94 U/L (38-126); Anion Gap 13.0 mEq/L (5-15); Aspartate Amino Transferase 26 U/L (14-36); Bilirubin,Total 0.5 mg/dl (0.2-1.3); Blood Urea Nitrogen 17 mg/dl (7-17); Calcium 9.0 mg/dl (8.4-10.2); Carbon Dioxide 27 mmol/L (22.0-30.0); Chloride 85 mmol/L (98-107); Creatinine,Serum 0.90 mg/dl (0.52-1.04); Estimated Glomerular Filt Rate 61 ml/min (>60); GFR (African American) 73 ML/MIN (>60); Globulin 2.1 g/dL (1.3-3.2); Glucose 96 mg/dl (74-100); Potassium 4.0 mmoL/L (3.5-5.1); Sodium 121 mmol/L (136-145); Total Protein,Serum 6.1 g/dl (6.3-8.2)
[2025-06-10 11:46] LABS: Free T4 (Free Thyroxine) 2.05 ng/dl (0.78-2.19)
[2025-06-10 11:59] LABS: Thyroid Stimulating Hormone 0.94 uIU/mL (0.465-4.68)
[2025-06-10 15:20] LABS: Sodium,Urine Random 53.0 mmol/L (30-90)
[2025-06-12 08:13] LABS: Osmolality, Urine 239 mOsmol/kg (.)
== END 2025-06-10 23:59 | disposition home or self-care (01) ==
LOC: LAB 10:22
PROVIDERS: PCP Family Medicine; Visit Provider Student in an Organized Health Care Education/Training Program
DX: E87.1 Hypo-osmolality and hyponatremia (principal); E03.9 Hypothyroidism, unspecified
CPT/HCPCS: 36415; 80053; 83930; 83935; 84439; 84443; 84540

== ENCOUNTER 2025-06-24 13:56 | Outpatient (RCR) | payer MEDICARE, OTHER, SELFPAY | END 2025-06-24 23:59 | disposition home or self-care (01) | LOC: PT.CARL 13:56 | PROVIDERS: PCP Family Medicine; Visit Provider Family Medicine | DX: R26.89 Other abnormalities of gait and mobility (principal) | CPT/HCPCS: 97530 ==

== ENCOUNTER 2025-07-20 06:35 | Inpatient (IN) | payer MEDICARE, OTHER, SELFPAY ==
--- OUTSIDE RECORDS SUMMARY | 2025-05-19 06:00 | XMS_ITS ---
Author Organization [facility] Address [address] [facility] [address] [place] [id number] Care Team Providers Care Enrollment Processor Name Role Phone Raul Torres Primary Care [...] 102 Performing Lab: Notes/Report: Test performed by [employer] [facility] , [address], [place] [address] Gilmer Lowe MD, Scrape Gatherer CLIA: [id number] Sodium 122 135-145 mmol/L Potassium 4.2 3.5-5.3 [...] Encounter Location Date Provider Diagnosis [facility] [address] [facility] [address] [facility] [address] [place] [id number] 05/19/2025 Raul Lopez Melissa Hyponatremia E87.1 ; Muscle weakness M62.81 and BMI 23.0-23.9, adult Z68.23 Assessments Encounter Date Diagnosis (ICD Code) Assessment Notes Treatment Notes Treatment Clinical Notes Section Notes 05/19/2025 Hyponatremia (ICD-10 - E87.1) 05/19/2025 Muscle weakness (ICD-10 - M62.81) 05/19/2025 BMI 23.0-23.9, adult (ICD-10 - Z68.23) Plan Of Treatment Next Appt Details Follow Up: 2 Months, Reason: Provider Name:Raul John Conti renetta, 07/21/2025 10:45:00 AM, [address] [facility] [address] [facility], [address], [place], [id number], Progress Notes * KWASI HUYNHDOB: 7 (79 yo F)Acc No.[id number]:05/19/2025 Progress Notes Patient: MARK PANIAGUASHEA Provider: Raul Torres M.D. :1945 A ge:79 Y S ex:Female Date:05/19/2025 Address:[address] [place] [address], [facility], [id number] Subjective: * Chief Complaints: * 1 . [...] Total Hysterectomy 1992, Tonsillectomy child, Cardiac Stent Placed-[facility]-Dr Arrington. Dr. Santo 10/19/2013, Cataract 10/2017. * Hospitalization/Major Diagno stic Procedure: k idney stones 1992, Heart Attack- [place] 09/2013, Facial Pain, Sinus Blockage- [facility] 04/24/2018, Itching, Swelling in Hands- [facility] 10/21/2018, Multiple rib and pelvic fractures; hyponatremia; rheumatoid arthritis; ASCVD- 06/30-, Dehydration, Failure to Thrive, Acute Urinary Retention- [facility] 07/14-, [facility] : fall with multiple FX ribs [...] uscle weakness - M62.81 3 . B [place] 23.0-23.9, adult - Z68.23 Plan: * Treatment: [...] * Images: Billing Information: * Visit Code: 13894 Office Visit, Est Pt., Level 3. * Procedure Codes: G2211 Complex e/m visit add on. 1036F TOBACCO NON-USER. G8420 BMI<30 AND >=22 CALC & DOCU. G8783 BP SCR PRFRM RCMDD DEFIND SCR INTVL. G8752 MOST RECENT SYSTOLIC BP < 140MM HG. G8754 MOST RECENT DIASTOLIC BP < 90MM HG. * Electronic signature of Raul Torres MD on 07/20/2025 at 06:53 AM EDT Sign off status: Pending * Provider: Raul Torres M.D. Date: 05/19/2025 Generated for Joseloi amarilys/Kerwin/eTransmitting on: 07/20/2025 06:53 AM EDT History and Physical Notes * [...]
--- OUTSIDE RECORDS SUMMARY | 2025-05-26 10:45 | XMS_ITS ---
Author Organization [facility] Address [address] [place] [phone] Care Team Providers Care Cotton Seed Culler Name Role Phone Raul Torres Primary Care [...] Reason For Referral Reason Dr. Lee at [facility] for hyponatremia/ possible adrenal insufficiency Diagnosis 1 Hyponatremia (E87.1) Referral Organization Jared Referring Provider First Name Raul Lopez Referring Provider Last Name Melissa Referring Provider [facility] ctice Referred Provider Endocrinology, . Referred Provider Specialty Endocrinolog y General Notes Keira Burger 2024 10:04:16 AM > faxed to [facility] Endo Referral Priority Routine Reason memory loss/ confusi on Diagnosis 1 Memory loss (R41.3) Referral Organization Jared Referring Provider First Name Raul Lopez Referring Provider Last Name Melissa Referring Provider [facility] ctice Referred Provider Radha Ignacio Referred Provider Specialty Neurology General Notes Keira Burger 2024 09:55:39 AM > faxed to [facility] Neurology, Keira Burger 05/29/2025 10:50:10 [...] W/U Status Risk Notes Problem Memory loss (01661085) Memory loss (R41.3) Active confirmed Vital Signs Weight 146.2 lbs 05/26/2025 Blood pressure systolic 110 mm Hg 05/26/20 25 Blood pressure diastolic 76 mm Hg 025 Heart Rate 72 /min 05/26/2025 Height 65 in 05/26/2025 BMI 24.33 kg/m2 05/26/2025 Encounters Encounter Location Date Provider Diagnosis [facility] [address] [place] [id number] 05/26/2025 Raul Torres Hyponatremia E87.1 ; Memory loss R41.3 and BMI 24.0-24.9, adult Z68.24 Assessments Encounter Date Diagnosis (ICD Code) Assessment Notes Treatment Notes Treatment Clinical Notes Section Notes 05/26/2025 Hyponatremia (ICD-10 - E87.1) 05/26/2025 Memory loss (ICD-10 - R41.3) 05/26/2025 BMI 24.0-24.9, adult (ICD-10 - Z68.24) Plan Of Treatment Referrals Referral Date Details 05/26/2025 05/26/2025, Dr. Sophie pineda at [facility] for hyponatremia/ possible adrenal insufficiency, . Endocrinology 05/26/2025 05/26/2025, memory l oss/ confusion, Radha Ignacio Next Appt Details Follow Up: after consultatio n, Reason: Provider Name:Raul Conti renetta, 07/21/2025 10:45:00 AM, [address] [facility] [address], [place], [place], [phone], Progress Notes * ANDRY HUYNHDOB: 7 (79 yo F)Acc No.[id number]:05/26/2025 Progress Notes Patient: ANDRY PANIAGUA Provider: Raul Torres M.D. :1945 A ge:79 Y S ex:Female Date:05/26/2025 Address:[address] [place] [address], [place] [facility], [id number] Subjective: * Chief Complaints: * 1 . [...] Hypertension, Hypothyroidism/goiter, Kidney stones, Allergic rhinitis, ASCVD: [place] - 09/2013-followed by Dr. Arrington q 6 months, Cataracts, Hyperuricemia, Inflammatory arthritis - Dr. Cheng, polymyalgia rheumatica - Dr. Cheng, Moderna Covid vaccine x2 Oct/Nov 2020. * Surgical History: T hyroidectomy/Goiter removal 1999, Back 2001, Total Hysterectomy 1992, Tonsillectomy child, Cardiac Stent Placed-[facility]-Dr Arrington. Dr. Santo 10/19/2013, Cataract 10/2017. * Hospitalization/Major Diagno stic Procedure: k idney stones 1992, Heart Attack- [place] 09/2013, Facial Pain, Sinus Blockage- [facility] 04/24/2018, Itching, Swelling in Hands- [facility] 10/21/2018, Multiple rib and pelvic fractures; hyponatremia; rheumatoid arthritis; ASCVD- 06/30-, Dehydration, Failure to Thrive, Acute Urinary Retention- [facility] 07/14-, [facility] : fall with multiple FX [...] M yvette loss - R41.3 ?3. B [place] 24.0-24.9, adult - Z68.24 Plan: * Treatment: [...] * Images: Billing Information: * Visit Code: 36644 Office Visit, Est Pt., Level 3. * Procedure Codes: G2211 Complex e/m [place] add on. 1036F TOBACCO NON-USER. G8420 BMI<30 AND >=22 CALC & DOCU. G8783 BP SCR PRFRM RCMDD DEFIND SCR INTVL. G8752 MOST RECENT SYSTOLIC BP < 140MM HG. G8754 MOST RECENT DIASTOLIC BP < 90MM HG. * Electronic signature of Raul Torres MD on 07/20/2025 at 06:52 AM EDT Sign off status: Pending * Provider: Raul Torres M.D. Date: 0 05/26/2025 Generated for Joseloi amarilys/Falucyg/eTransmitting on: 0 07/20/2025 06:52 AM EDT History and Physical Notes * Examination Category [...] Torres Endocrinology, . Dr. Edy matos at [facility] for hyponatremia/ possible adrenal insufficiency 05/26/2025 Raul Torres Maria memory los s/ confusion
--- OUTSIDE RECORDS SUMMARY | 2025-05-28 04:20 | XMS_ITS ---
Author Organization [facility] Address 1210 [facility] 36 [facility] [address] [place] [phone] Care Team Providers Care Seamless Hosiery Knitter Name Role Phone Raul Torres Primary Care [...] Status Risk Notes Problem Altered mental status (280164390) Altered mental state (R41.82) Active confirmed Encounters Encounter Location Date Provider Diagnosis [facility] 1210 [facility] 36 [facility] [address] [place] [phone] 05/28/2025 Raul Torres Altered mental state R41.82 Assessments Encounter Date Diagnosis (ICD Code) Assessment Notes Treatment Notes Treatment Clinical Notes Section Notes 05/28/2025 Altered mental state (ICD-10 - R41.82) Plan Of Treatment Next Appt Details Provider Name:Raul Corral, 07/21/2025 10:45:00 AM, 1210 [facility] 36 [facility], [address], [place], [phone], Progress Notes * KWASI HUYNHDOB: 7 (79 yo F)Acc No.[id number]:05/28/2025 Patient: KWASI PANIAGUA Provider: Raul Torres M.D. :1945 A ge:79 Y S ex:Female Date:05/28/2025 Address:[address], [place], [id number] Subjective: * Chief Complaints: * 1 . [...] Information: * Visit Code: * Procedure Codes: 97776 Urinalysis, no micro. * Electronic signature of Raul Torres MD on 07/20/2025 at 06:53 AM EDT Sign off status: Pending * Provider: Raul Torres M.D. Date: 0 05/28/2025 Generated for Jerry panda/Kerwin/Arthur on: 07/20/2025 06:53 AM EDT
--- OUTSIDE RECORDS SUMMARY | 2025-06-16 12:30 | XMS_ITS ---
Author Organization [facility] Address [address] [facility] [address] [place] [phone] Care Team Providers Care Ux Researcher Name Role Phone Raul Torrse Primary Care Provider Allergies Allergen (clinical drug [...] 50 MG 1 tab(s) Orally q6h prn 10/11/2 024 Active Lidocaine 5 % 1 patch [...] 06/16/2025 Encounters Encounter Location Date Provider Diagnosis [facility] [address] [facility] [address] [facility] [address] [place] [phone] 06/16/2025 Raul Torres Rheumatoid arthritis M06.9 ; Leg edema R60.0 and Hyponatremia E87.1 Assessments Encounter Date Diagnosis (ICD Code) Assessment Notes Treatment Notes Treatment Clinical Notes Section Notes 06/16/2025 Rheumatoid arthritis (ICD-10 - M06.9) 06/16/2025 Leg edema (ICD-10 - R60.0) 06/16/2025 Hyponatremia (ICD-10 - E87.1) Plan Of Treatment Next Appt Details Follow Up: 2 Months, Reason: Provider Name:Raul Corral, 07/21/2025 10:45:00 AM, [address] [facility] [address] [facility], [address], [place], [id number], Medications Administered Medication Instructions Date of Administration Dosage Notes Depo- Medrol 40 mg/ml 06/16/2025 1 mL Progress Notes * HAYDEN HUYNH: 7 (79 yo F)Acc No.[id number]:06/16/2025 Progress Notes Patient: ANDRY PANIAGUA Provider: Raul Torres M.D. :1945 A ge:79 Y S ex:Female Date:06/16/2025 Address:[address], [place], [id number] Subjective: * Chief Complaints: * 1 . [...] Hypertension, Hypothyroidism/goiter, Kidney stones, Allergic rhinitis, ASCVD: [place] - 09/2013-followed by Dr. Arrington q 6 months, Cataracts, Hyperuricemia, Inflammatory arthritis - Dr. Cheng, polymyalgia rheumatica - Dr. Cheng, Moderna Covid vaccine x2 Oct/Nov 2020. * Surgical History: T hyroidectomy/Goiter removal 1999, Back 2001, Total Hysterectomy 1992, Tonsillectomy child, Cardiac Stent Placed-[facility]-Dr Arrington. Dr. Santo 10/19/2013, Cataract 10/2017. * Hospitalization/Major Diagno stic Procedure: k idney stones 1992, Heart Attack- [facility] 09/2013, Facial Pain, Sinus Blockage- [facility] ER 04/24/2018, Itching, Swelling in Hands- [facility] 10/21/2018, Multiple rib and pelvic fractures; hyponatremia; rheumatoid arthritis; ASCVD- [place] 06/30-, Dehydration, Failure to Thrive, Acute Urinary Retention- [facility] 07/14-, [facility] : fall with multiple FX [...] 1 mL (Route: Intramuscular) given by SALOMON uQigley on right deltoid (Rheumatoid arthritis) * Procedure Codes: G 2211 Complex e/m visit add on, J1010 Inj, methylpred acetate 1 mg, 04397 ADMINISTRATION OF INJECTION * Follow Up: 2 Months * Images: Billing Information: * Visit Code: 87356 Office Visit, Est Pt., Level 3. Modifiers: 25 * Procedure Codes: G2211 Complex e/m visit add on. J1010 Inj, methylpred acetate 1 mg. 82609 ADMINISTRATION OF INJECTION. * Electronic signature of Raul Torres MD on 07/20/2025 at 06:53 AM EDT Sign off status: Pending * Provider: Raul Torres M.D. Date: 0 06/16/2025 Generated for Jerry panda/Kerwin/Arthur on: 0 07/20/2025 06:53 AM EDT History and Physical Notes * Examination Category Sub-Category Detail Notes Category Not es General Examination Heart: RSR Lungs: clear to auscultatio n Extremities: 1+ pedal and ankle e stephanie bilaterally. General Appearance: NAD
--- OUTSIDE RECORDS SUMMARY | 2025-07-15 07:25 | XMS_ITS ---
Author Organization [facility] Address [address] [place] [phone] Care Team Providers Care Department Manager Name Role Phone Raul Torres Primary [...] Administered Encounters Encounter Location Date Provider Diagnosis [facility] [address] [place] [phone] 07/15/2025 Raul Torres Encounter for immunization Z23 Assessments Encounter Date Diagnosis (ICD Code) Assessment Notes Treatment Notes Treatment Clinical Notes Section Notes 07/15/2025 Encounter for immunization (ICD-10 - Z23) Plan Of Treatment Next Appt Details Provider Name:Raul Lopez Gallito jackson, 07/21/2025 10:45:00 AM, [address], [address], [place], [phone], Progress Notes * KWASI HUYNHDOB: 7 (79 yo F)Acc No.[id number]:07/15/2025 Patient: Zeynep KWASI DELCID Provider: Raul Torres M.D. :1945 A ge:79 Y S ex:Female Date:07/15/2025 Address:[address] [facility], [id number] Subjective: * Chief Complaints: * 1 . [...] Pending * Provider: Raul Torres M.D. Date: 07/15/2025 Generated for Jerry panda/Kerwin/Arthur on: 07/20/2025 06:52 AM EDT
[2025-07-20] VITALS (14 sets, daily range): BP systolic 101–166; BP diastolic 64–89; PULSE 70–100; RESP 12–20; TEMP 36.6–38.5; O2SAT 91–99; BMI 24.2; BMI 23.3
--- NOTE | 2025-07-20 06:38 | [facility].EDGENADL ---
Discharge Plan Disposition Patient Disposition: Admitted Condition: Fair Clinical Impressions Clinical Impression: Hyponatremia Discharge ED Provider: Khadijah Doe General Adult HPI <Karthik Carmona MD - Last Filed: 07/20/25 07:40> General Chief complaint: Nausea/Vomiting/Diarrhea Stated complaint: Pain Time Seen by Provider: 07/20/25 06:38 History of Present Illness HPI narrative: 79-year-old female with history of urinary artery disease, rheumatoid arthritis, thyroid disease presents for vomiting. She reports that she had some facial pain starting yesterday and was taking Tylenol yesterday. concerned that she could have taken too much Tylenol. She woke up this morning vomiting, per she had vomit all over her bed. She denies any chest pain or shortness of breath currently. She denies significant abdominal pain. Reports appendectomy. Related Data Home Medications ?Medication ?Instructions ?Recorded ?Confirmed levothyroxine 112 mcg tablet 112 mcg PO DAILYDM 04/24/18 07/20/25 hydroxychloroquine 200 mg tablet 200 mg PO DAILY 05/11/22 07/20/25 acetaminophen 500 mg tablet 500 mg PO Q6HP PRN Mild Pain 07/15/24 07/20/25 (Scale Score 1-4) cyclobenzaprine 5 mg tablet 5 mg PO HSP PRN muscle spasms 07/15/24 07/20/25 melatonin 3 mg tablet 3 mg PO HSP Insomnia 07/15/24 07/20/25 tramadol 50 mg tablet 50 mg PO Q6HP PRN Moderate Pain 07/15/24 07/20/25 (Scale Score 5-6) carvedilol 12.5 mg tablet 12.5 mg PO BID 03/12/25 07/20/25 chlorthalidone 25 mg tablet 12.5 mg PO DAILY 07/20/25 07/20/25 tamsulosin 0.4 mg capsule 0.4 mg PO HS 07/20/25 07/20/25 Previous Rx's ?Medication ?Instructions ?Recorded potassium chloride 10 mEq 10 meq PO BID #60 caps 03/15/25 capsule,extended release pravastatin 40 mg tablet 40 mg PO HS #30 tabs 03/15/25 Allergies Allergy/AdvReac Type Severity Reaction Status Date / Time Sulfa (Sulfonamide Allergy Unknown Hives Verified 07/20/25 06:46 Antibiotics) (SULFA (SULFONAMIDE ANTIBIOTICS)) codeine Allergy Vomiting Verified 07/20/25 06:46 Penicillins Allergy Hives Verified 07/20/25 06:46 hydrocodone AdvReac Other Verified 07/20/25 06:46 [facility] <Karthik Carmona MD - Last Filed: 07/20/25 07:40> [facility] Disclaimer: The information contained in this section may have been updated after the patient was seen, as this information can be updated by other users. 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 Hyponatremia Abnormal weight loss Anorexia Hypoglycemia Postobstructive diuresis Acute urinary retention Adult failure to thrive Nausea Multiple fractures of pelvis with disruption of pelvic ring Hypochloremia Falls Trochanteric bursitis, right hip Skin tear of left upper extremity Contusion of elbow, left Contusion of hip, left Trochanteric bursitis, left hip Closed fracture of greater trochanter of femur Pain around toenail, right foot Ingrown toenail of right foot Closed nondisplaced fracture of fifth right metatarsal bone MARY (acute kidney injury) Enteritis Hypothyroidism Foot fracture, right Polymyalgia rheumatica syndrome History of back pain History of left heart catheterization Hyperlipidemia Hypertension Cataract COVID-19 Closed fracture of fourth metatarsal of right foot Nondisplaced fracture of fifth right metatarsal bone with routine healing Myocardial infarction HLD (hyperlipidemia) CAD (coronary artery disease) Rheumatoid arthritis Surgical History H/O cataract removal with insertion of prosthetic lens History of heart artery stent Previous back surgery H/O thyroidectomy History of appendectomy History of hysterectomy History of tonsillectomy Family History Other Cancer Heart attack Hypertension Social History (Updated 07/20/25 @ 10:41 by Jacquelyn Mays RN) Smoking Status: Former smoker tobacco type: cigarettes packs per day: 1 pack-years: 46 years smoked: 40 how long ago did patient quit smokin years alcohol intake: never substance use type: denies use current occupational status: retired Travel in the last 8 weeks?: None caregiver/support person: Yes () household members: spouse housing: house marital status: 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 needs: No Have you lived/traveled outside [place] in past 30 days?: No Contact w/someone who lives/traveled outside US past 30 days?: No Exposure to someone with infectious disease in past 14 days?: No Do you have a fever (greater than 100.4 F or 38 C)?: No Have you tested positive for COVID-19?: No Exposed to someone with COVID-19 in past 14 days?: No Do you have a sore throat?: No Do you have a cough?: No Do you have any weakness?: No Are you experiencing any nausea/vomitting?: No Do you have any diarrhea?: No Are you experiencing any unusual bleeding?: No Do you have any muscle aches/pain?: No Do you have any abdominal pain?: No Are you experiencing loss of taste or smell?: No Other Medical History Have you received the Flu Vaccine for this season: No Have you received the Pneumonia Vaccine: Yes <Karthik Carmona MD - Last Filed: 07/20/25 07:40> ROS Obtained: Yes All systems reviewed & no additional complaints except as documented Physical Exam <Karthik Carmona MD - Last Filed: 07/20/25 07:40> General General appearance: alert and in no apparent distress Head Head exam: atraumatic and normocephalic Eye Eye exam: Present normal appearance, PERRL and EOMI ENT ENT exam: Present normal oropharynx and normal external ear exam Neck Neck exam: Present normal inspection and full ROM Chest Chest inspection: Present normal inspection and symmetric chest wall rise; Absent tenderness Respiratory Respiratory exam: Present normal lung sounds bilaterally; Absent respiratory distress Cardiovascular Cardiovascular exam: Present regular rate and normal rhythm Abdominal Exam Abdominal exam: Present soft; Absent distention, tenderness or guarding Extremities Exam Extremities exam: Present normal inspection; Absent edema or joint swelling Back Exam Back exam: Present normal inspection; Absent tenderness Neurological Exam Neurological exam: Present alert and oriented X3; Absent motor sensory deficit Psychiatric Psychiatric exam: Present normal affect and normal mood Skin Skin exam: Present warm, dry and normal color Lymphatic Lymphatic Findings: no adenopathy Medical Decision Making <Karthik Carmona MD - Last Filed: 07/20/25 07:40> Medical Records Medical records reviewed: Yes I reviewed the patient's medical records. Screening: Per USPSTF and CDC recommendations, given the prevalence of disease in our region, it is our hospital?s policy to screen for HIV and viral Hepatitis for all patients aged 18 and over and those with ongoing risk factors. Michael Inquiry Pt receiving controlled substance: No Michael was queried for this patient: No Vital Signs: 07/20/25 06:41 07/20/25 07:01 07/20/25 07:30 Temperature 99.7 F H Temperature Source Oral Pulse Rate 76 86 Pulse Rate [Left] 87 Respiratory Rate 16 17 18 Blood Pressure 146/79 H 113/84 Blood Pressure [Right Arm] 131/84 Blood Pressure Mean 90 93 Blood Pressure Mean [Right Arm] 99 Blood Pressure Source Blood Pressure Source [Right Arm] Automatic Cuff Blood Pressure Position [Right Arm] Sitting 02 Sat by Pulse Oximetry 92 L 95 95 Oxygen Delivery Method Room Air Room Air 07/20/25 08:00 07/20/25 08:30 07/20/25 09:01 Temperature Temperature Source Pulse Rate 72 76 81 Pulse Rate [Left] Respiratory Rate 17 20 17 Blood Pressure 123/64 101/81 L 153/78 H Blood Pressure [Right Arm] Blood Pressure Mean 84 85 103 Blood Pressure Mean [Right Arm] Blood Pressure Source Blood Pressure Source [Right Arm] Blood Pressure Position [Right Arm] 02 Sat by Pulse Oximetry 94 L 95 94 L Oxygen Delivery Method Room Air Room Air Room Air 07/20/25 09:30 07/20/25 09:30 07/20/25 10:08 Temperature 98.7 F Temperature Source Pulse Rate 72 79 Pulse Rate [Left] Respiratory Rate 17 19 Blood Pressure 152/76 H 152/74 H Blood Pressure [Right Arm] Blood Pressure Mean 101 Blood Pressure Mean [Right Arm] Blood Pressure Source Automatic Cuff Blood Pressure Source [Right Arm] Blood Pressure Position [Right Arm] 02 Sat by Pulse Oximetry 95 Oxygen Delivery Method Room Air Room Air Room Air Lab Data Lab results reviewed: Yes I reviewed the patient's lab results. Lab Results 07/20/25 06:35: WBC 15.6 H, RBC 3.96 L, Hgb 13.1, Hct 37.5, MCV 94.7, MCH 33.1 H, MCHC 34.9, RDW 12.4, Plt Count 257, MPV 9.9, Neut % (Auto) 79.9, Lymph % (Auto) 6.8 L, Butler % (Auto) 10.2 H, Eos % (Auto) 1.9, Baso % (Auto) 0.6, Neut # (Auto) 12.5 H, Lymph # (Auto) 1.1, Butler # (Auto) 1.6 H, Eos # (Auto) 0.3, Baso # (Auto) 0.1, Total Counted 100, Neutrophils % (Manual) 86 H, Band Neutrophils % 1.0, Lymphocytes % (Manual) 6 L, Monocytes % (Manual) 6, Eosinophils % (Manual) 1, Platelet Estimate Normal, RBC Morphology Normal, D-Dimer 1.03 H, VBG pH 7.46 H, VBG pCO2 44.3, VBG pO2 41.9 H, VBG HCO3 30.8 H, VBG Total CO2 32.2 H, VBG O2 Saturation 78.9 H, VBG Base Excess 7.0 H, VBG Lactic Acid 2.0, Sodium 119 L, Potassium 2.5 L*, Chloride 79 L, Carbon Dioxide 30, Anion Gap 12.5, BUN 11, Creatinine 0.90, Estimated Creat Clear 50, Estimated GFR 61, Est GFR ( Amer) 73, Glucose 109 H, Calcium 8.9, Phosphorus 3.2, Magnesium 1.7, Total Bilirubin 1.0, AST 26, ALT 14, Alkaline Phosphatase 82, Troponin I 0.02, Total Protein 6.9, Albumin 4.1, Globulin 2.8, Albumin/Globulin Ratio 1.5, Lipase 142, Salicylates < 1.0 L, Acetaminophen < 10 L 07/20/25 06:35 07/20/25 06:35 Orders (Tests/Meds): ED MEDICATIONS Generic Name Dose Route Start Last Admin Trade Name Freq PRN Reason Stop Dose Admin Potassium Chloride/Sodium Chloride 1,000 mls @ 125 mls/hr 07/20/25 13:30 07/20/25 13:45 Kcl 20 Meq In Ns 1,000 Ml Iv Soln IV 08/19/25 13:29 125 mls/hr .Q8H MARCO Administration Discontinued Medications Generic Name Dose Route Start Last Admin Trade Name Freq PRN Reason Stop Dose Admin Sodium Chloride 1,000 mls @ 999 mls/hr 07/20/25 06:45 07/20/25 08:41 Sod Chlor 0.9% 1000ml Bag IV 07/20/25 07:45 Infused .Q1H1M MARCO Infusion Potassium Chloride/Water 100 mls @ 100 mls/hr 07/20/25 07:15 07/20/25 10:39 Potassium Chloride 10meq/100ml Ivpb IV 07/20/25 10:14 Infused Q1H MARCO Infusion Magnesium Sulfate 2 gm in 50 mls @ 150 mls/hr 07/20/25 07:04 07/20/25 07:48 Magnesium Sulfate 2gm/50ml Premix IV 07/20/25 07:23 Infused ONCE ONE Infusion Iopamidol 80 ml 07/20/25 07:23 07/20/25 07:24 Iopamidol-370 (76%);100ml Bottle IV 07/20/25 07:24 80 ml ONCE ONE Administration Ketorolac Tromethamine 15 mg 07/20/25 06:39 07/20/25 06:54 Ketorolac 30mg/Ml Vial IV 07/20/25 06:40 15 mg ONCE ONE Administration Ondansetron HCl 4 mg 07/20/25 06:39 07/20/25 06:54 Ondansetron 4mg/2ml Vial IV 07/20/25 06:40 4 mg ONCE ONE Administration Ondansetron HCl 4 mg 07/20/25 12:45 07/20/25 12:49 Ondansetron 4mg/2ml Vial IV 07/20/25 12:46 4 mg ONCE ONE Administration Promethazine HCl 12.5 mg 07/20/25 14:00 Promethazine Hcl 25mg/Ml 1ml Vial IV 07/20/25 14:01 ONCE ONE Sodium Chloride 50 ml 07/20/25 07:23 07/20/25 07:24 0.9 % Sodium Chloride 50 Ml Vial IV 07/20/25 07:24 50 ml ONCE ONE Administration Sodium Chloride 10 ml 07/20/25 07:23 07/20/25 07:24 Sodium Chloride 0.9% 10ml Syr (Rad Only) IV 07/20/25 07:24 10 ml ONCE ONE Administration ORDERS Category Date Time Status CT abdomen pelvis w con Stat Cat Scan 07/20/25 06:[address] angio chest PE protocol Stat Cat Scan 07/20/25 06:46 Completed Acetaminophen Stat Lab 07/20/25 06:35 Completed CBC w/Auto Diff [Complete Blood Count Auto Diff] Stat Lab 07/20/25 06:35 Completed CMP [Comprehensive Metabolic Panel] Stat Lab 07/20/25 06:35 Completed D-Dimer Stat Lab 07/20/25 06:35 Completed Lipase Stat Lab 07/20/25 06:35 Completed Magnesium Stat Lab 07/20/25 06:35 Completed Phosphorous Stat Lab 07/20/25 06:35 Completed Salicylate Stat Lab 07/20/25 06:35 Completed Troponin I Q3H Lab 07/20/25 06:35 Completed Troponin I Q3H Lab 07/20/25 09:48 Completed UA [Urinalysis and Microscopic] Stat Lab 07/20/25 06:41 Ordered VBG [Venous Blood Gas] Stat RT 07/20/25 06:35 Completed ECG Data Tracing #1: I reviewed this ECG and interpreted as documented below: Sinus rhythm with first-degree AV block, rate of 79, no significant ST changes ECG initial impression date: 07/20/25 ECG initial impression time: 06:53 Medical Decision Narrative: 71-year-old female with history of coronary artery disease, rheumatoid arthritis, hypothyroidism presents for vomiting. Possible Tylenol overdose per . Concern for aspiration given she was brought in puke this morning. History was obtained via interactive discussion with patient, EMS, , chart review. On arrival, patient is afebrile, normotensive, satting 90% on room air, moving all extremities spontaneously. Full physical exam performed and significant for no significant abdominal tenderness Differential includes but is not limited to gastroenteritis, bowel obstruction, pancreatitis, cholecystitis, mesenteric ischemia, aspiration pneumonia, acetaminophen overdose. Patient was given fluid bolus, Zofran, mag, Toradol for symptomatic management and correction of underlying abnormalities. Workup initiated including broad-spectrum labs including VBG, Tylenol salicylate levels, lipase mag Phos CBC CMP UA. CT Abdo pelvis, CT PE ordered. On re-evaluation, patient [remains afebrile, HD stable.] Laboratory workup independently interpreted by me and significant for leukocytosis with white count of 15, D-dimer elevated, VBG with metabolic alkalosis, hyponatremia and hypokalemia noted. Patient's sodium is chronically low, only mildly lower than her baseline today. Potassium is critically low. Initiated on IV potassium replacement as well as IV magnesium. At this time care handed off to oncoming physician. <Khadijah Doe DO - Last Filed: 07/20/25 15:08> Vital Signs: 07/20/25 06:41 07/20/25 07:01 07/20/25 07:30 Temperature 99.7 F H Temperature Source Oral Pulse Rate 76 86 Pulse Rate [Left] 87 Respiratory Rate 16 17 18 Blood Pressure 146/79 H 113/84 Blood Pressure [Right Arm] 131/84 Blood Pressure Mean 90 93 Blood Pressure Mean [Right Arm] 99 Blood Pressure Source Blood Pressure Source [Right Arm] Automatic Cuff Blood Pressure Position [Right Arm] Sitting 02 Sat by Pulse Oximetry 92 L 95 95 Oxygen Delivery Method Room Air Room Air 07/20/25 08:00 07/20/25 08:30 07/20/25 09:01 Temperature Temperature Source Pulse Rate 72 76 81 Pulse Rate [Left] Respiratory Rate 17 20 17 Blood Pressure 123/64 101/81 L 153/78 H Blood Pressure [Right Arm] Blood Pressure Mean 84 85 103 Blood Pressure Mean [Right Arm] Blood Pressure Source Blood Pressure Source [Right Arm] Blood Pressure Position [Right Arm] 02 Sat by Pulse Oximetry 94 L 95 94 L Oxygen Delivery Method Room Air Room Air Room Air 07/20/25 09:30 07/20/25 09:30 07/20/25 10:08 Temperature 98.7 F Temperature Source Pulse Rate 72 79 Pulse Rate [Left] Respiratory Rate 17 19 Blood Pressure 152/76 H 152/74 H Blood Pressure [Right Arm] Blood Pressure Mean 101 Blood Pressure Mean [Right Arm] Blood Pressure Source Automatic Cuff Blood Pressure Source [Right Arm] Blood Pressure Position [Right Arm] 02 Sat by Pulse Oximetry 95 Oxygen Delivery Method Room Air Room Air Room Air Lab Data Lab Results 07/20/25 06:35: WBC 15.6 H, RBC 3.96 L, Hgb 13.1, Hct 37.5, MCV 94.7, MCH 33.1 H, MCHC 34.9, RDW 12.4, Plt Count 257, MPV 9.9, Neut % (Auto) 79.9, Lymph % (Auto) 6.8 L, Butler % (Auto) 10.2 H, Eos % (Auto) 1.9, Baso % (Auto) 0.6, Neut # (Auto) 12.5 H, Lymph # (Auto) 1.1, Butler # (Auto) 1.6 H, Eos # (Auto) 0.3, Baso # (Auto) 0.1, Total Counted 100, Neutrophils % (Manual) 86 H, Band Neutrophils % 1.0, Lymphocytes % (Manual) 6 L, Monocytes % (Manual) 6, Eosinophils % (Manual) 1, Platelet Estimate Normal, RBC Morphology Normal, D-Dimer 1.03 H, VBG pH 7.46 H, VBG pCO2 44.3, VBG pO2 41.9 H, VBG HCO3 30.8 H, VBG Total CO2 32.2 H, VBG O2 Saturation 78.9 H, VBG Base Excess 7.0 H, VBG Lactic Acid 2.0, Sodium 119 L, Potassium 2.5 L*, Chloride 79 L, Carbon Dioxide 30, Anion Gap 12.5, BUN 11, Creatinine 0.90, Estimated Creat Clear 50, Estimated GFR 61, Est GFR ( Amer) 73, Glucose 109 H, Calcium 8.9, Phosphorus 3.2, Magnesium 1.7, Total Bilirubin 1.0, AST 26, ALT 14, Alkaline Phosphatase 82, Troponin I 0.02, Total Protein 6.9, Albumin 4.1, Globulin 2.8, Albumin/Globulin Ratio 1.5, Lipase 142, Salicylates < 1.0 L, Acetaminophen < 10 L Orders (Tests/Meds): ED MEDICATIONS Generic Name Dose Route Start Last Admin Trade Name Freq PRN Reason Stop Dose Admin Potassium Chloride/Sodium Chloride 1,000 mls @ 125 mls/hr 07/20/25 13:30 07/20/25 13:45 Kcl 20 Meq In Ns 1,000 Ml Iv Soln IV 08/19/25 13:29 125 mls/hr .Q8H MARCO Administration Discontinued Medications Generic Name Dose Route Start Last Admin Trade Name Freq PRN Reason Stop Dose Admin Sodium Chloride 1,000 mls @ 999 mls/hr 07/20/25 06:45 07/20/25 08:41 Sod Chlor 0.9% 1000ml Bag IV 07/20/25 07:45 Infused .Q1H1M MARCO Infusion Potassium Chloride/Water 100 mls @ 100 mls/hr 07/20/25 07:15 07/20/25 10:39 Potassium Chloride 10meq/100ml Ivpb IV 07/20/25 10:14 Infused Q1H MARCO Infusion Magnesium Sulfate 2 gm in 50 mls @ 150 mls/hr 07/20/25 07:04 07/20/25 07:48 Magnesium Sulfate 2gm/50ml Premix IV 07/20/25 07:23 Infused ONCE ONE Infusion Iopamidol 80 ml 07/20/25 07:23 07/20/25 07:24 Iopamidol-370 (76%);100ml Bottle IV 07/20/25 07:24 80 ml ONCE ONE Administration Ketorolac Tromethamine 15 mg 07/20/25 06:39 07/20/25 06:54 Ketorolac 30mg/Ml Vial IV 07/20/25 06:40 15 mg ONCE ONE Administration Ondansetron HCl 4 mg 07/20/25 06:39 07/20/25 06:54 Ondansetron 4mg/2ml Vial IV 07/20/25 06:40 4 mg ONCE ONE Administration Ondansetron HCl 4 mg 07/20/25 12:45 07/20/25 12:49 Ondansetron 4mg/2ml Vial IV 07/20/25 12:46 4 mg ONCE ONE Administration Promethazine HCl 12.5 mg 07/20/25 14:00 Promethazine Hcl 25mg/Ml 1ml Vial IV 07/20/25 14:01 ONCE ONE Sodium Chloride 50 ml 07/20/25 07:23 07/20/25 07:24 0.9 % Sodium Chloride 50 Ml Vial IV 07/20/25 07:24 50 ml ONCE ONE Administration Sodium Chloride 10 ml 07/20/25 07:23 07/20/25 07:24 Sodium Chloride 0.9% 10ml Syr (Rad Only) IV 07/20/25 07:24 10 ml ONCE ONE Administration ORDERS Category Date Time Status CT abdomen pelvis w con Stat Cat Scan 07/20/25 06:[address] angio chest PE protocol Stat Cat Scan 07/20/25 06:46 Completed Acetaminophen Stat Lab 07/20/25 06:35 Completed CBC w/Auto Diff [Complete Blood Count Auto Diff] Stat Lab 07/20/25 06:35 Completed CMP [Comprehensive Metabolic Panel] Stat Lab 07/20/25 06:35 Completed D-Dimer Stat Lab 07/20/25 06:35 Completed Lipase Stat Lab 07/20/25 06:35 Completed Magnesium Stat Lab 07/20/25 06:35 Completed Phosphorous Stat Lab 07/20/25 06:35 Completed Salicylate Stat Lab 07/20/25 06:35 Completed Troponin I Q3H Lab 07/20/25 06:35 Completed Troponin I Q3H Lab 07/20/25 09:48 Completed UA [Urinalysis and Microscopic] Stat Lab 07/20/25 06:41 Ordered VBG [Venous Blood Gas] Stat RT 07/20/25 06:35 Completed Medical Decision Narrative: 71-year-old female with history of coronary artery disease, rheumatoid arthritis, hypothyroidism presents for vomiting. Possible Tylenol overdose per . Concern for aspiration given she was brought in puke this morning. History was obtained via interactive discussion with patient, EMS, , chart review. On arrival, patient is afebrile, normotensive, satting 90% on room air, moving all extremities spontaneously. Full physical exam performed and significant for no significant abdominal tenderness Differential includes but is not limited to gastroenteritis, bowel obstruction, pancreatitis, cholecystitis, mesenteric ischemia, aspiration pneumonia, acetaminophen overdose. Patient was given fluid bolus, Zofran, mag, Toradol for symptomatic management and correction of underlying abnormalities. Workup initiated including broad-spectrum labs including VBG, Tylenol salicylate levels, lipase mag Phos CBC CMP UA. CT Abdo pelvis, CT PE ordered. On re-evaluation, patient [remains afebrile, HD stable.] Laboratory workup independently interpreted by me and significant for leukocytosis with white count of 15, D-dimer elevated, VBG with metabolic alkalosis, hyponatremia and hypokalemia noted. Patient's sodium is chronically low, only mildly lower than her baseline today. Potassium is critically low. Initiated on IV potassium replacement as well as IV magnesium. At this time care handed off to oncoming physician. Care transferred to myself. On my review of lab work. D-dimer is elevated at 1.03. Sodium is 119, slightly worsened from apparent baseline of approximately 120. Potassium 2.5. Chloride 79. Creatinine within normal limits. Magnesium borderline low at 1.7. LFTs normal. Troponin within normal limits. Lipase within normal limits. Negative Tylenol and salicylates. VBG shows a mild metabolic alkalosis with normal lactate. CBC shows no anemia. Mild leukocytosis white blood cell count of 15.6. CT chest shows no acute findings on my read, potentially some bibasilar dependent atelectasis. CT abdomen notable for distended urinary bladder and stool in the rectum. Patient did ultimately have a large bowel movement while voiding in the emergency department. Home medications include Tylenol, aspirin, carvedilol, Flexeril, Synthroid, hydroxychloroquine. Patient is on 10 mill equivalents of potassium p.o. twice daily. Ultimately, the patient was admitted on behalf of Dr. Torres for hypomagnesemia, hypokalemia, and acute on chronic hyponatremia causing weakness and confusion. Procedures <Karthik Carmona MD - Last Filed: 07/20/25 07:40> Risk/Benefits of Procedure(s) Were Explained: Yes Critical Care <Karthik Carmona MD - Last Filed: 07/20/25 07:40> Critical Care Time Critical Care Time: Yes Attestation: On 07/20/25, the high probability of a clinically significant, sudden or life threatening deterioration of the following system(s) required my full and direct attention, intervention and personal management. The time I documented below is in addition to time spent performing reported procedures but includes the following listed in this critical care notation. Total Time Total Critical Care Time: 40
--- NOTE | 2025-07-20 06:39 | CT_ITS ---
FINAL REPORT TECHNIQUE: After the administration of intravenous contrast, axial images were obtained through the abdomen and pelvis by computed tomography. The study was performed with techniques to keep radiation dose as low as reasonably achievable, (ALARA). Individual dose reduction techniques using automated exposure control or adjustment of mA and/or kV according to the patient's size were employed. CLINICAL HISTORY: nausea vomiting COMPARISON: 08/07/2024 FINDINGS: Abdomen: The liver parenchyma is homogeneous. The gallbladder is present. The spleen, pancreas, adrenals and kidneys appear grossly unremarkable. Old granulomatous disease is noted in the spleen. There is a densely calcified tortuous splenic artery. A calcified and tortuous abdominal aorta is noted. There is no free fluid or adenopathy. Pelvis: The appendix is not identified. The urinary bladder is distended. There is no free fluid or adenopathy. Old healed fracture deformities are noted of the superior and inferior pubic rami. IMPRESSION: No acute intra-abdominal process. Reviewed, Interpreted and Dictated by Jomar Nguyen MD Transcribed by Anne Lockett Authenticated and [facility]
--- NOTE | 2025-07-20 06:46 | CT_ITS ---
FINAL REPORT TECHNIQUE: The patient was injected with IV contrast. Axial images were obtained through the chest in a PE protocol. 3-D reconstruction images were also performed. Individualized dose reduction techniques using automated exposure control or adjustment of the MA and/or KV according to patient's size were employed. CLINICAL HISTORY: vomiting, hypoxia COMPARISON: 03/11/2025 FINDINGS: Mediastinal vasculature is adequately opacified. No pulmonary artery filling defects are identified to suggest PE. There is no aortic dissection. There is no axillary adenopathy. There is no hilar or mediastinal adenopathy. Coronary artery calcifications are noted. The heart size is normal. There is no pericardial or pleural effusion. Mild ground glass opacity bilaterally may be due to mild edema or pneumonitis. Atelectasis is noted at the lung bases. Old healed fracture deformities are noted of the bilateral ribs. IMPRESSION: No pulmonary embolus or dissection. Possible mild edema or pneumonitis bilaterally Reviewed, Interpreted and Dictated by Jomar Nguyen MD Transcribed by Anne Lockett Authenticated and [facility]
--- OUTSIDE RECORDS SUMMARY | 2025-07-20 06:52 | XMS_ITS | Clinical Summary ---
Author Organization Healthcare Address [address] [place] [address] Care Team Providers Care Custom Clothier Name Role Phone Amparo Arrington MD Primary Care Provider [phone] Allergies Active Allergy Reactions Criticality Noted Date [...] Hypomagnesemia 07/02/2024 Overview (07/02/2024): Replace as needed Multiple fractures of pelvis without disruption of pelvic ring, initial encounter for closed fracture 06/30/2024 Overview (07/04/2024): Non-operative intervention per ortho standpoint Protected weight bearing of RLE Need to ambulate 30 feet; PMF's reviewed and stable PT/OT as tolerated [facility] Acquired hypothyroidism 06/30/2024 Overview (06/30/2024): Continue home levothyroxine Complicates all aspects of care Coronary artery disease invo lving [place] coronary artery of [place] heart without angina pectoris 06/30/2024 Overview (06/30/2024): [...] Improving, continue fluid restriction over 48 hours HLD (hyperlipidemia) 06/30/2024 Overview (06/30/2024): Resume home [...] appropriate Follow up with PCP for surveillance Resolved Problems Problem Noted Date Diagnosed Date Resolved Date Fall, initial encounter 06/30/202406/23 Overview (06/30/2024): Admit SGT Tertiary 07/01 Cellulitis 06/30/2024 07/12/2025 Overview (06/30/2024): LLE Venous duplex completed; no evidence of DVT Doxycycline started 06/30 for 5 days Encounters Date Type Department Care Team Description 06/19/2025 Orders Only [facility] [address] [place] [address] Anita Luu Hyponatremia (Primary Dx); Vitamin D insufficiency from Last 3 Months Immunizations Immunization Administration Dates Next Due Tdap [...] place to sleep or slept in a long term (including now)? No 07/01/2024 Utilities Answer Date Recorded In the past 12 months has th e electric, gas, oil, or water company threatened to shut off services in your [...] Screening 1945 [facility]-Medicare Annual Wellness (AWV) 1945 [facility]-Infant/Child/Adol SDOH Screenings 01/01/1947 [facility]- SDOH Screenings 1964 [facility]-Adult SDOH Screenings 1964 [facility]-Zoster Vaccines (1 of 2) 1965 [facility]-RSV Vaccine: 60+ Years or (1 - 1-dose 75+ series) 2021 [id number] Vaccine (9 - Moderna risk season) 2025 08/19/2024, 08/16/2023, 05/29/2023, Additional history exists [facility]-Influenza Vaccine (#1) 06/22/202507/11, 07/26/2021, 07/12/2020, Additional [...] Antibody Negative Negative 06/30/2024 2:20 AM EDT [facility] Blood Venous blood specimen / Unknown Venipuncture / Unknown 06/30/2024 1:15 AM EDT 06/30/2024 1:40 AM EDT us Sami Rowell MD LAB BLOOD ORDERABLES Final Re sult [facility] [address] [place] [address] from Last 3 Months or Most Recently Relevant to Health Maintenance Insurance MEDICARE [facility] Advance Directives * Full Code (Latest Code Status on File) Date Activated Date Inactivated Comments 07/04/2024 1:04 PM * Full Code Date Activated Date Inactivated Comments 06/30/2024 8:06 AM 07/04/2024 1:04 PM Question Answer Comments Patient has decision-making capacity? Yes Care Teams Custom Clothier Relationship Specialty Start Date End Date Amparo Arrington MD [address] [place] [address] [address] [place] [address] PCP - General 03/04/21
--- OUTSIDE RECORDS SUMMARY | 2025-07-20 06:52 | XMS_ITS | Encounter Summary ---
Author Organization Healthcare Address [address] [place] [address] Care Team Providers Care Resident Care Aide Name Role Phone Amparo Arrington MD Primary Care Provider [phone] Encounter Details Date Type Department Care Team (Late st Contact Info) Description 06/19/2025 Orders Only [facility] [address] [place] [address] Anita Luu Hyponatremia (Primary Dx); Vitamin D insufficiency Social History Tobacco Use Types Packs/Day Years Used Date Smoking Tobacco: Never Smokeless Tobacco: Never Alcohol Use Standard Drinks/Week Comments Never 0 [...] place to sleep or slept in a intermediate (including now)? No 07/01/2024 Utilities Answer Date [...] as of this encounter Plan of Treatment Scheduled Orders Name Type Priority Associated Diagnoses Orde r Schedule Renal Function Panel, Plasma Lab Routine Hyponatremia Expected: 06/19/2025 (Approximate), Expires: 12/19/2026 CBC and Differential Lab Routine Hyponatremia Expected: 06/19/2025 (Approximate), Expires: 12/19/2026 Creatinine, Random, Urine Lab Routine Hyponatremia Expected: 06/19/2025 (Approximate), Expires: 12/19/2026 Protein, Random, Urine with Creatinine Lab Routine Hyponatremia Expected: 06/19/2025 (Approximate), Expires: 12/19/2026 Urinalysis with reflex microscopic (Culture NOT Included) Lab Routine Hyponatremia Expected: 06/19/2025 (Approximate), Expires: 12/19/2026 PTH Intact Total Lab Routine Hyponatremia Vitamin D insufficiency Expected: 06/19/2025 (Approximate), Expires: 12/19/2026 Vitamin D 25 Hydroxy Lab Routine Hyponatremia Vitamin D insufficiency Expected: 06/19/2025 (Approximate), Expires: 12/19/2026 Osmolality, Urine Lab Routine Hyponatremia Expected: 06/19/2025 (Approximate), Expires: 12/19/2026 Osmolality, Serum Lab Routine Hyponatremia Expected: 06/19/2025 (Approximate), Expires: 12/19/2026 Sodium, Random, Urine Lab Routine Hyponatremia Expected: 06/19/2025 (Approximate), Expires: 12/19/2026 documented as of this encounter Visit Diagnoses Diagnosis Hyponatremia- Primary Hyposmolality and/or hyponatremia Vitamin D insufficiency documented in this encounter Additional Health Concerns Assessment Noted Time A Body Mass Index follow-up plan has been documented for the patient 07/04/2024 1:22 PM EDT documented as of this encounter Care Teams Resident Care Aide Relationship Specialty Start Date End Date Amparo Arrington MD [address] [place] [address] PCP - General 03/04/21 documented as of this encounter
--- OUTSIDE RECORDS SUMMARY | 2025-07-20 06:52 | XMS_ITS | Clinical Summary ---
Author Organization [facility] Address [address] [place] [address] Care Team Providers Care Home Care Giver Name Role Phone Wyatt Torres MD Primary Care Provider [phone] Source Comments This information has been disclosed [...] therelease of HIV test results or diagnoses. [id number] Allergies Active Allergy Reactions Criticality Noted [...] 1-dose 75+ series) 2021 Immunization: COVID-19 ( - season) 2025 09/05/2022, 01/24/2022, 06/17/2021, Additional history exists Immunization: Influenza (MyC lopez) (#1) 2025 07/11/2022, 07/26/2021, 07/12/2020, Additional history exists Immunization: DTaP/Tdap/Td ( 3 - Td or Tdap) 04/09/2033 04/09/2023, 09/03/2018 Insurance MEDICARE A AND B [employer] Care Teams Home Care Giver Relationship Specialty Start Date End Date Wyatt Torres MD [address] [place] [address] PCP - General Family Medicine 04/09/23
--- NOTE | 2025-07-20 06:53 | ECG_ITS ---
APPROVED REPORT Exam: Resting ECG HR:79 bpm ECG Measurements Heart Rate 79 AXES NJ 225 P 30 QRSd 97 QRS 14 QT 323 T 40 QTc 358 Conclusion SINUS RHYTHM WITH SINUS ARRHYTHMIA WITH FIRST DEGREE AV BLOCK SEPTAL MYOCARDIAL INFARCTION , PROBABLY OLD [40+ ms Q WAVE IN V1/V2] ABNORMAL ECG UNCONFIRMED REPORT Electronically signed by : TIMBO NERI, 07/20/2025 22:57:14
--- OUTSIDE RECORDS SUMMARY | 2025-07-20 06:53 | XMS_ITS | Clinical Summary ---
Author Organization [facility] Address [address] [place] [address] Care Team Providers Care Supervisor Prep Name Role Phone Wyatt Torres MD Primary [...] by mouth Every Night. 90 tablet 1 Active Active Problems Problem Noted Date Diagnosed [...] Urine Ratio - Urine, Clean Catch; Future Family History Medical History Relation Name Comments [...] e alcohol) a glass of wine at [facility] Comments Unknown Sex and Gender Information Value [...] 75+ series) 2021 ANNUAL WELLNESS VISIT 12/26/2024 INFLUENZA VACCINE 05/22/2025 07/11/2022, , 07/12/2020, Additional history exists COVID-19 Vaccine (2023-2 5 season) 2025 08/19/2024, 08/16/2023, 05/29/2023, Additional history exists LIPID PANEL 01/14/2026 01/14/2025 [...] - 200 mg/dL 01/15/2025 12:23 AM EDT [facility] Triglycerides 89 0 - 150 mg/dL 01/15/2025 12:23 AM EDT [facility] HDL Cholesterol 99(H) 40 - 60 mg/dL 01/15/2025 12:23 AM EDT [facility] LDL Cholesterol 75 0 - 100 mg/dL 01/15/2025 12:23 AM EDT [facility] VLDL Cholesterol 16 5 - 40 mg/dL 01/15/2025 12:23 AM EDT [facility] LDL/HDL Ratio 0.74 01/15/2025 12:23 AM T [facility] Blood Venipuncture / Unknown 01/14/2025 10:25 AM EDT 01/14/2025 10:26 AM EDT Narrative [facility] - 01/15/2025 12:23 AM EDT Cholesterol [...] MD LAB BLOOD ORDERABLES Final Resul t [facility]
[address] [place] [address], from Last 3 Months or Most Recently Relevant to Health Maintenance Insurance MEDICARE A & B [facility] Care Teams Supervisor Prep Relationship Specialty Start Date End Date Wyatt Torres MD [address] [facility] [address] [facility] [address] [place] [address] PCP - General Family Medicine 12/26/24
--- OUTSIDE RECORDS SUMMARY | 2025-07-20 06:53 | XMS_ITS | Encounter Summary ---
Author Organization [facility] Address [address] [place] [address] Care Team Providers Care Veterinary Receptionist Name Role Phone Wyatt Torres MD Primary Care Provider Encounter Details Date Type Department Care Team (Late st Contact Info) Description 01/15/2025 Results Follow-Up [facility] [address] [id number] Jennyfer Porras APRN [address] [facility] [address] [place] [address] Social History Tobacco Use Types Packs/Day Years Used Date Smoking Tobacco: Former Cigarettes Smokeless Tobacco: Never Alcohol Use Standard Drinks/Week Comments Yes 0 (1 standard drink = 0.6 oz pur e alcohol) a glass of wine at [facility] Comments Unknown Sex and Gender Information Value Date Recorded Sex Assigned at Not on file Legal Sex Female 11:41 AM EDT Gender Identity Not on file Sexual Orientation Not on file documented as of this encounter Plan of Treatment Not on file documented as of this encounter Visit Diagnoses Not on filedocumented in this encounter Care Teams Veterinary Receptionist Relationship Specialty Start Date End Date Wyatt Torres MD [address] [facility] [address] [facility] [place] [address] PCP - General Family Medicine 12/26/24 documented as of this encounter
--- OUTSIDE RECORDS SUMMARY | 2025-07-20 06:53 | XMS_ITS | Patient Health Record ---
Author Organization [facility] Address [address] [facility] [address] [place] [id number] Care Team Providers Care Continuing Education Director Name Role Phone Raul Torres Primary Care Provider [phone] Channing Garcia Unavailable [phone] Marie Helm Unavailable [phone] Oneida Edwards Unavailable [phone] Allergies Allergen (clinical drug ingredient) Drug/Non Drug [...] Notes P-Basic Metabolic Panel (BMP ) Reviewed date:04/14/2025 01:09:28 PM Interpretation: Performing Lab: Notes/Report: CLIA: [id number] Gilmer Lowe MD, Metalsmith [facility] , [address], [place] [address] Test performed by [facility], [facility] Sodium 128 135-145 mmol/L Potassium 3.7 3.5-5.3 mmol/L Chloride 92 97-108 mmol/L CO2 24 22-32 mmol/L Glucose 93 65-99 mg/dL BUN 16 8-23 mg/dL Creatinine 1.02 0.50-1.00 mg/dL Calcium 9.2 8.6-10.4 mg/dL eGFR by Creatinine 56 >59 mL/min/1.73m2 Cortisol AM Reviewed date:04/14/2025 01:09:28 PM Interpretation: Performing Lab: Notes/Report: Test performed by [facility] [address] [place] [address] , [address], [place] [address] Gilmer Lowe MD, Metalsmith CLIA: [id number] Cortisol AM 5.3 6.0-18.4 ug/dL P-Basic Metabolic Panel (BMP ) Reviewed date:05/26/2025 10:23:05 PM Interpretation:Na 122, cl 86, gluc 102 Performing Lab: Notes/Report: CLIA: [id number] Gilmer Lowe MD, Metalsmith [address] [place] [address] , [place] [address] Test performed by [facility] Sodium 122 135-145 mmol/L Potassium 4.2 3.5-5.3 mmol/L Chloride 86 97-108 mmol/L CO2 25 20-32 mmol/L Glucose 102 65-99 mg/dL BUN 19 8-23 mg/dL Creatinine 0.85 0.50-1.00 mg/dL Calcium 9.5 8.6-10.4 mg/dL eGFR by Creatinine 70 >59 mL/min/1.73m2 BMP Reviewed date:08/07/2024 08:32:05 AM Interpretation: Performing Lab: Notes/Report: Urinalysis - Inhouse Reviewed date:05/28/2025 03:50:05 PM Interpretation: Performing Lab: Notes/Report: Color/Clarity yellow/clear Leuk neg Nitrite neg Urobili 3.2 Protein neg pH 8.0 Blood neg Sp. Gr. 1.015 Ketone neg Bili neg Gluc neg BMP Reviewed date:04/02/2025 02:57:40 PM Interpretation: Performing Lab: Notes/Report: H-CBC Reviewed date:03/13/2025 08:48:08 AM Interpretation: Performing Lab: Notes/Report: WBC 13.2 4.8-10.8 K/mm3 RBC 3.77 4.20-5.40 M/mm3 HGB 13.0 12.2-16.2 g/dL Delta: 11.4 o n 03/12/25-0908 HCT 36.2 37.0-47.0 % MCV 96.0 81-99 [...] 0.1 0-0.2 K/mm3 NRBC# 0 IG# 0.15 H-BMP Reviewed date:03/13/2025 08:48:08 AM Interpretation: Performing Lab: Notes/Report: NA 122 136-145 mmol/L K 3.4 3.5-5.1 mmoL/L Delta: 2.7 on 03/12/25 CL 89 98-107 mmol/L CO2 26 22.0-30.0 mmol/L GAP 10.4 5-15 mEq/L BUN 8 7-17 mg/dl Delta: 11 on CREATT 0.70 0.52-1.04 mg/dl CRCLE 53 50-200 mL/min GFRAA 98 >60 ML/MIN EGFR 81 >60 ml/min GLU 80 74-100 mg/dl CA 8.3 8.4-10.2 mg/dl CBC Venipuncture (in house) Reviewed date:04/16/2025 11:50:29 [...] - 38 platlet 197 100 - 400 CBC Fingerstick (in house) [...] - 38 plat 185 100 - 400 H-BMP Reviewed date:03/17/2025 11:12:11 [...] Performing Lab: Notes/Report: TSH 4.57 0.465-4.68 uIU/mL H-CBC Reviewed date:03/17/2025 11:12:11 AM Interpretation: Performing Lab: Notes/Report: WBC 8.8 4.8-10.8 K/mm3 Delta: 13.2 o n 03/13/25-606 RBC 3.33 4.20-5.40 M/mm3 HGB 11.5 12.2-16.2 [...] K/mm3 NRBC# 0 IG# 0.12 H-BMP Reviewed date:03/17/2025 11:12:11 AM Interpretation: Performing Lab: Notes/Report: NA 125 136-145 mmol/L K 4.6 3.5-5.1 mmoL/L Delta: 3.4 on 03/13/25 CL 100 98-107 mmol/L CO2 21 22.0-30.0 mmol/L GAP 8.6 5-15 mEq/L BUN 10 7-17 mg/dl CREATT 0.70 0.52-1.04 mg/dl CRCLE 51 50-200 mL/min GFRAA 98 >60 ML/MIN EGFR 81 >60 ml/min GLU 81 74-100 mg/dl CA 8.3 8.4-10.2 mg/dl H-Cardiac Enzymes Reviewed date:03/12/2025 11:04:11 AM Interpretation: [...] 97 74-100 mg/dl CA 8.2 8.4-10.2 mg/dl P-Basic Metabolic Panel (BMP ) Reviewed date:10/07/2024 05:35:13 PM Interpretation:Na 131, cl 95, gluc 126, Cr 1.13, gfr 50 Performing Lab: Notes/Report: Test performed by [facility], [address] , [address], [place] [address] Gilmer Lowe MD, Metalsmith CLIA: [id number] Sodium 131 135-145 mmol/L Potassium 4.6 3.5-5.3 mmol/L Chloride 95 97-108 mmol/L CO2 22 22-32 mmol/L Glucose 126 65-99 mg/dL BUN 13 8-23 mg/dL Creatinine 1.13 0.50-1.00 mg/dL Calcium 9.5 8.6-10.4 mg/dL eGFR by Creatinine 50 >59 mL/min/1.73m2 Medications Medication SIG (Take, Route, Frequency, Duration) Notes Start Date End Date Status Acetaminophen 500 MG 1 capsule as needed Orally every 6 hrs prn Active predniSONE 5 MG 1 tab orally once a day Active Aspirin Adult Low Dose 81 MG 1 tab(s) or ally once a day Active Hyoscyamine Sulfate 0.125 MG 1 tab(s) Or ally four times a day as needed for diarrhea Active Carvedilol 12.5 MG 1 tab(s) Orally 2 ti mes a day Active Ondansetron HCl 4 MG 1 tablet Orally 3 t imes a day prn Active Plaquenil 200 MG 1 tab(s) orally daily Active Cyclobenzaprine HCl 5 MG 1 tab 3 times a day As needed Active Pravastatin Sodium 40 MG 1 tablet Orally Once a day Active Benzonatate 100 MG 1 capsule as needed Orally Three times a day 05/29/2025 Active Potassium Chloride Cathy ER 1 0 MEQ 1 tablet with food Orally Twice a day; Duration: 90 days Active traMADol HCl 50 MG 1 tab(s) Orally q6h prn 024 Active Melatonin 3 MG 1 tablet in the even ing at HS Active Chlorthalidone 12.5 MG 1 tablet in the m orning with food Orally daily; Duration: 90 days Active Levothyroxine Sodium 112 MCG 1 tablet in the morning on an empty stomach Orally Once a day; Duration: 90 days Active Lidocaine 5 % 1 patch remove after 12 hours Externally Once a day 02/17/2025 Active Tamsulosin HCl 0.4 MG 1 capsule Orally O nce a day; Duration: 90 days Active Immunizations Vaccine Route Administration Date Status Comme nts Fluzone High Dose (65yr and older) IM Intramuscular 07/15/2025 Administered COVID 19 Moderna Unknown 01/24/2022 Administered COVID 19 Moderna Unknown 06/17/2021 Administered COVID 19 Moderna Unknown 12/16/2020 Administered COVID 19 Moderna Unknown 11/18/2020 Administered xFlu shot-36 months and older IM [...] (65yr and older) IM Intramuscular 08/14/2024 Administered Problems Problem Type SNOMED Code ICD Code Onset Dates Problem Status W/U Status Risk Notes Problem Essential hypertension (99959972) Essential (primary) hypertension (I10) Active confirmed Problem Essential hypertension (93502210) Essential hypertension (I10) Active confirmed Problem Gout attack (824110065) Gout attack (M10.9) Active confirmed Problem Rhinitis (65877973) Rhinitis (J31.0) Active con firmed Problem Osteopenia (671643230) Osteopenia (M85.80) Active confirmed Problem Altered mental statu s (975375597) Altered mental state (R41.82) Active confirmed Problem Environmental allerg y (760384804) Environmental allergies (Z91.048) Active confirmed Problem Memory loss (81559432) Memory loss (R41.3) Active confirmed Problem Inflammatory polyarthropathy (662446857) 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) Active confirmed Problem Polymyalgia rheumatica (32518160) Polymyalgia rheumatica (M35.3) Active confirmed Problem Ataxic gait (30237424) Ataxic gait (R26.0) Active confirmed Problem Acquired hypothyroidism (596264060) Acquired hypothyroidism (E03.9) Active confirmed Problem Neck pain (00185771) Neck pain (M54.2) Active c onfirmed Problem Paresthesia (finding ) (69264616) Paresthesias (R20.2) Active confirmed Problem History of circulatory system disease (635391728) 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) Active confirmed Problem Muscle spasm (92598915) Muscle spasm (M62.838) Active confirmed Problem Rheumatoid arthritis (57185145) Rheumatoid arthritis (M06.9) Active confirmed Problem Sleep disorder (01957111) Sleep disorder (G47.9) Active confirmed Problem Cervical disc disorder (943326123) DDD (degenerative disc disease), cervical (M50.30) Active confirmed Problem Primary osteoarthritis (268202768) Primary osteoarthritis (M19.91) Active confirmed Problem Dyslipidemia (012194731) Dyslipidemia (E78.5) Active confirmed Problem Atherosclerotic hear t disease of [place] coronary artery without angina pectoris (598148151358955) Atherosclerosis of [place] coronary artery without angina pectoris, unspecified whether [place] or transplanted heart (I25.10) Active confirmed Problem Impairment of balanc e (775888873) Balance problem (R26.89) Active confirmed Problem Anemia (488948490) Mild anemia (D64.9) Active c onfirmed Problem Rheumatoid arthritis (11503503) Rheumatoid arthritis, involving unspecified site, unspecified whether rheumatoid factor present (M06.9) Active confirmed Problem Sialodocholithiasis (72656784) Sialodocholithiasis (K11.5) Active confirmed Vital Signs Heart Rate 76 /min 06/16/2025 Respiratory Rate 20 /min 03/31/2025 Blood pressure diastolic 70 mm Hg 06/16/2025 Height 65 in 06/16/2025 Blood pressure systolic 114 mm Hg 06/16/2025 Weight 152.2 lbs 06/16/2025 BMI 25.32 kg/m2 06/16/2025 Encounters Encounter Location Date Provider Diagnosis [address] [place] [id number] 07/22/2024 Marie Helm Acquired hypothyroid ism E03.9 ; Inflammatory polyarthropathy M06.4 ; Nausea R11.0 ; Hx of arteriosclerotic cardiovascular disease Z86.79 ; Dyslipidemia E78.5 ; Essential hypertension I10 ; Rheumatoid arthritis M06.9 ; Fall W19.XXXA ; Rib fractures S22.39XA ; Fracture of pelvis S32.9XXA ; Sleep disorder G47.9 ; Environmental allergies Z91.048 and Urinary retention R33.9 [facility] [address] [place] [id number] 08/14/2024 R John Osmant URI (upper respirato ry infection) J06.9 ; Urinary retention R33.9 ; Encounter for immunization Z23 and Dependent edema R60.9 [facility] [address] [place] [id number] 09/30/2024 R John Melissa Leg edema R60.0 ; Hypokalemia E87.6 and Pain of hand, unspecified laterality M79.643 [facility] [address] [place] [id number] 11/13/2024 R John Melissa Chronic diarrhea K52 .9 and Rheumatoid arthritis, involving unspecified site, unspecified whether rheumatoid factor present M06.9 [facility] [address] [place] [id number] 12/12/2024 Oneida Edwards Open wound of right lower extremity, initial encounter S81.801A [facility] [address] [place] [id number] 12/25/2024 R John Melissa Rheumatoid arthritis M06.9 [facility] [address] [place] [id number] 02/05/2025 R John Melissa Acute sinusitis J01. 90 ; Inflammatory polyarthropathy M06.4 ; Polymyalgia rheumatica M35.3 ; Acquired hypothyroidism E03.9 ; Dyslipidemia E78.5 ; Essential hypertension I10 and BMI 24.0-24.9, adult Z68.24 [facility] [address] [place] [id number] 02/17/2025 R John Melissa Glossitis K14.0 ; Shoulder pain M25.519 and BMI 24.0-24.9, adult Z68.24 [address] [place] [id number] 03/31/2025 Marie Helm Polymyalgia rheumati ca M35.3 ; Rib fractures S22.39XA ; Acquired hypothyroidism E03.9 ; Dyslipidemia E78.5 ; Essential hypertension I10 ; Nausea R11.0 ; Leg edema R60.0 ; Hx of arteriosclerotic cardiovascular disease Z86.79 ; Accidental fall, subsequent encounter W19.XXXD ; Sleep disorder G47.9 and Hypokalemia E87.6 [facility] [address] [place] [id number] 04/09/2025 R John Melissa Hyponatremia E87.1 ; Rib fractures S22.39XA ; Chronic diarrhea K52.9 and BMI 23.0-23.9, adult Z68.23 [facility] [address] [place] [id number] 04/16/2025 R John Melissa Acute sinusitis J01. 90 ; Adhesive capsulitis of left shoulder M75.02 ; Dyslipidemia E78.5 ; Rib fractures S22.39XA ; Leg edema R60.0 and Onychomycosis B35.1 [facility] [address] [place] [id number] 05/07/2025 R John Melissa Inflammatory polyarthropathy M06.4 [facility] [address] [place] [id number] 05/19/2025 R John Melissa Hyponatremia E87.1 ; Muscle weakness M62.81 and BMI 23.0-23.9, adult Z68.23 [facility] [address] [place], [place] [id number] 05/26/2025 R John Melissa Hyponatremia E87.1 ; Memory loss R41.3 and BMI 24.0-24.9, adult Z68.24 [facility] [address] [place] [id number] 05/28/2025 R John Melissa Altered mental state R41.82 [facility] [address] [place] [id number] 06/16/2025 R John Melissa Rheumatoid arthritis M06.9 ; Leg edema R60.0 and Hyponatremia E87.1 [facility] [address] [place], [place] [id number] 07/15/2025 R John Melissa Encounter for immunization Z23 [facility] [address] [facility] [address] [place], [place] [id number] 08/01/2024 Channing [place] Fracture of pelvis S32.9XXA [facility] [address] [place] [id number] 08/04/2024 R John Melissa [facility] [address] [place] [id number] 08/18/2024 R John Melissa Encounter for other general examination Z00.8 [facility] [address] [place] [id number] 08/20/2024 R John Melissa [facility] [address] [place] [id number] 08/21/2024 R John Melissa Rib fractures S22.39 XA [facility] [address] [place] [id number] 08/26/2024 R John Melissa [facility] [address] [place] [id number] 09/04/2024 R John Melissa Fracture of pelvis S32.9XXA [facility] [address] [place] [id number] 09/22/2024 R John Melissa Rib fractures S22.39 XA [facility] [address] [place] [id number] 10/01/2024 R John Melissa [facility] [address] [place] [id number] 10/08/2024 R John Melissa [facility] [address] [place] [id number] 10/23/2024 R John Melissa Leg edema R60.0 [facility] [address] [place] [id number] 11/18/2024 R John Melissa Rib fractures S22.39 XA [facility] [address] [place] [id number] 11/25/2024 R John Melissa [facility] [address] [place] [id number] 12/12/2024 R John Melissa Chronic diarrhea K52 .9 [facility] [address] [place], [place] [id number] 12/17/2024 R John Melissa Rib fractures S22.39 XA [facility] [address] [place] [id number] 12/26/2024 R John Melissa [facility] [address] [place] [id number] 2024 R John Melissa Chronic diarrhea K52 .9 [facility] [address] [place] [id number] 01/06/2025 R John Melissa [facility] [address] [place] [id number] 01/13/2025 R John Melissa Rib fractures S22.39 XA [facility] [address] [place] [id number] 01/21/2025 R John Melissa [facility] [address] [place] [id number] 01/30/2025 R John Melissa Rib fractures S22.39 XA [facility] [address] [place] [id number] 02/02/2025 R Ojhn Melissa [facility] [address] [place] [id number] 02/04/2025 R John Melissa Chronic diarrhea K52 .9 [facility] [address] [place] [id number] 02/16/2025 R John Melissa Rib fractures S22.39 XA [facility] [address] [place] [id number] 03/02/2025 Marie Helm Rib fractures S22.39 XA [facility] [address] [place] [id number] 03/16/2025 R John Melissa [facility] [address] [place] [id number] 03/23/2025 R John Melissa [facility] [address] [place] [id number] 04/02/2025 R John Melissa [facility] [address] [place] [id number] 04/07/2025 R John Melissa Leg edema R60.0 [facility] [address] [place] [id number] 04/09/2025 R John Melissa Leg edema R60.0 [facility] [address] [place] [id number] 04/10/2025 R John Melissa [facility] [address] [place] [id number] 04/13/2025 R John Melissa [facility] [address] [place] [id number] 04/13/2025 R John Melissa Acquired hypothyroid ism E03.9 [facility] [address] [place] [id number] 04/14/2025 R John Melissa [facility] [address] [place] [id number] 04/19/2025 R John Melissa Screening for osteoporosis Z13.820 [facility] [address] [place] [id number] 04/20/2025 R John Melissa [facility] [address] [place] [id number] 04/22/2025 R John Melissa Nausea R11.0 [facility] [address] [place] [id number] 05/06/2025 R John Melissa Hypokalemia E87.6 [facility] [address] [place] [id number] 05/26/2025 R John Melissa [facility] [address] [place] [id number] 05/29/2025 Onieda Renedy [facility] [address] [place] [id number] 06/02/2025 R John Melissa [facility] [address] [place] [id number] 06/02/2025 R John Melissa [facility] [address] [place] [id number] 06/09/2025 R John Melissa [facility] [address] [place] [id number] 06/09/2025 R John Melissa [facility] [address] [place] [id number] 06/18/2025 R John Melissa Leg edema R60.0 [facility] [address] [place] [id number] 06/25/2025 Raul Torres [facility] [address] [place] [id number] 07/06/2025 Raul Torres Assessments Encounter Date Diagnosis (ICD Code) Assessment Notes Treatment Notes Treatment Clinical Notes Section Notes 09/22/2024 Rib fractures (ICD-10 - S22.39XA) 09/04/2024 Fracture of pelvis (ICD-10 - S32.9XXA) 08/21/2024 Rib fractures (ICD-10 - S22.39XA) 08/18/2024 Encounter for other general examination (ICD-10 - Z00.8) 08/14/2024 URI (upper respiratory infection) (ICD-10 - J06.9) 08/14/2024 Urinary retention (ICD-10 - R33.9) 02/05/2025 Inflammatory polyarthropathy (ICD-10 - M06.4) 02/16/2025 Rib fractures (ICD-10 - S22.39XA) 02/05/2025 Acute sinusitis (ICD-10 - J01.90) 08/01/2024 Fracture of pelvis (ICD-10 - S32.9XXA) 07/22/2024 Inflammatory polyarthropathy (ICD-10 - M06.4) 07/22/2024 Acquired hypothyroidism (ICD-10 - E03.9) 06/16/2025 Leg edema (ICD-10 - R60.0) 06/16/2025 Rheumatoid arthritis (ICD-10 - M06.9) 05/28/2025 Altered mental state (ICD-10 - R41.82) 05/26/2025 Hyponatremia (ICD-10 - E87.1) 05/26/2025 Memory loss (ICD-10 - R41.3) 07/15/2025 Encounter for immunization (ICD-10 - Z23) 06/18/2025 Leg edema (ICD-10 - R60.0) 05/19/2025 Hyponatremia (ICD-10 - E87.1) 05/19/2025 Muscle weakness (ICD-10 - M62.81) 05/07/2025 Inflammatory polyarthropathy (ICD-10 - M06.4) 05/06/2025 Hypokalemia (ICD-10 - E87.6) 04/22/2025 Nausea (ICD-10 - R11.0) 04/19/2025 Screening for osteoporosis (ICD-10 - Z13.820) 04/16/2025 Acute sinusitis (ICD-10 - J01.90) 04/16/2025 Adhesive capsulitis of left shoulder (ICD-10 - M75.02) 04/13/2025 Acquired hypothyroidism (ICD-10 - E03.9) 04/09/2025 Leg edema (ICD-10 - R60.0) 04/09/2025 Hyponatremia (ICD-10 - E87.1) 04/09/2025 Rib fractures (ICD-10 - S22.39XA) 04/07/2025 Leg edema (ICD-10 - R60.0) 03/31/2025 Polymyalgia rheumatica (ICD-10 - M35.3) 03/31/2025 Rib fractures (ICD-10 - S22.39XA) pt feels so much better; she is able to walk freely with her walker; will continue with PT until she goes home 03/02/2025 Rib fractures (ICD-10 - S22.39XA) 02/17/2025 Shoulder pain (ICD-10 - M25.519) 02/17/2025 Glossitis (ICD-10 - K14.0) 02/04/2025 Chronic diarrhea (ICD-10 - K52.9) 01/30/2025 Rib fractures (ICD-10 - S22.39XA) 01/13/2025 Rib fractures (ICD-10 - S22.39XA) 2024 Chronic diarrhea (ICD-10 - K52.9) 12/25/2024 Rheumatoid arthritis (ICD-10 - M06.9) 12/17/2024 Rib fractures (ICD-10 - S22.39XA) 12/12/2024 Open wound of right lower extremity, initial encounter (ICD-10 - S81.801A) Will clean the wounds with water and vinegar and apply vaseline, a nonstick dressing, and co-ban. 12/12/2024 Chronic diarrhea (ICD-10 - K52.9) 11/18/2024 Rib fractures (ICD-10 - S22.39XA) 11/13/2024 Chronic diarrhea (ICD-10 - K52.9) She is provided an order to submit a stool sample for PCR diarrhea panel if no improvement over the next 5 to 7 days. 11/13/2024 Rheumatoid arthritis, involving unspecified site, unspecified whether rheumatoid factor present (ICD-10 - M06.9) 10/23/2024 Leg edema (ICD-10 - R60.0) 09/30/2024 Hypokalemia (ICD-10 - E87.6) 09/30/2024 Leg edema (ICD-10 - R60.0) 09/30/2024 Pain of hand, unspecified laterality (ICD-10 - M79.643) 02/17/2025 BMI 24.0-24.9, adult (ICD-10 - Z68.24) 03/31/2025 Acquired hypothyroidism (ICD-10 - E03.9) 04/09/2025 Chronic diarrhea (ICD-10 - K52.9) 04/16/2025 Dyslipidemia (ICD-10 - E78.5) 05/19/2025 BMI 23.0-23.9, adult (ICD-10 - Z68.23) 06/16/2025 Hyponatremia (ICD-10 - E87.1) 05/26/2025 BMI 24.0-24.9, adult (ICD-10 - Z68.24) 07/22/2024 Nausea (ICD-10 - R11.0) ABX discontinued 02/05/2025 Polymyalgia rheumatica (ICD-10 - M35.3) 08/14/2024 Encounter for immunization (ICD-10 - Z23) 08/14/2024 Dependent edema (ICD-10 - R60.9) Advised to elevate legs above level heart is much as possible. Recommend compression socks or Ezequiel bandages as needed. Keep follow-up appoint with cardiology. 02/05/2025 Acquired hypothyroidism (ICD-10 - E03.9) 07/22/2024 Hx of arteriosclerotic cardiovascular disease (ICD-10 - Z86.79) 04/16/2025 Rib fractures (ICD-10 - S22.39XA) 04/09/2025 BMI 23.0-23.9, adult (ICD-10 - Z68.23) 03/31/2025 Dyslipidemia (ICD-10 - E78.5) 03/31/2025 Essential hypertension (ICD-10 - I10) 04/16/2025 Leg edema (ICD-10 - R60.0) 07/22/2024 Dyslipidemia (ICD-10 - E78.5) 02/05/2025 Dyslipidemia (ICD-10 - E78.5) 07/22/2024 Essential hypertension (ICD-10 - I10) 02/05/2025 Essential hypertension (ICD-10 - I10) 03/31/2025 Nausea (ICD-10 - R11.0) 04/16/2025 Onychomycosis (ICD-10 - B35.1) 03/31/2025 Leg edema (ICD-10 - R60.0) 07/22/2024 Rheumatoid arthritis (ICD-10 - M06.9) 02/05/2025 BMI 24.0-24.9, adult (ICD-10 - Z68.24) 07/22/2024 Fall (ICD-10 - W19.XXXA) 03/31/2025 Hx of arteriosclerotic cardiovascular disease (ICD-10 - Z86.79) 03/31/2025 Accidental fall, subsequent encounter (ICD-10 - W19.XXXD) 07/22/2024 Rib fractures (ICD-10 - S22.39XA) 07/22/2024 Fracture of pelvis (ICD-10 - S32.9XXA) continue to work with PT 03/31/2025 Sleep disorder (ICD-10 - G47.9) 03/31/2025 Hypokalemia (ICD-10 - E87.6) 07/22/2024 Sleep disorder (ICD-10 - G47.9) 07/22/2024 Environmental allergies (ICD-10 - Z91.048) 07/22/2024 Urinary retention (ICD-10 - R33.9) 07/22/2024 Other wants to go mari e next week 03/31/2025 Other she does plan t o go home Plan Of Treatment Pending Test Test Name Order Date Bone density 04/19/2025 CT Scan : Hip, right, without contrast 0 05/01/2024 P-Cortisol AM 04/09/2025 Next Appt Details Provider Name:Raul Corral, 07/21/2025 10:45:00 AM, [address] [facility], [address], [place], [id number], Insurance Providers Payer Name Payer Address Payer Phone Subscriber Number Group Number Insured Name Patient Relationship to Insured Coverage Start Date Coverage End Date MEDICARE PART B [address] [address] [place] [address] [id number] KWASI HUYNH Self - patient is the insured [employer] [place] [address] [phone] [id number] KWASI HUYNH Self - patient is the insured Medications Administered Medication Instructions Date of Administration Dosage Notes Depo- Medrol 40 mg/ml 04/17/2022 1.5 mL Dexamethasone 12/01/2013 1 mL Depo- Medrol 40 mg/ml 01/09/2022 1 mL Depo- Medrol 40 mg/ml 01/02/2022 1.5 mL Depo- Medrol 40 mg/ml 02/13/2020 1.5 mL Depo- Medrol 40 mg/ml 11/28/2018 1.5 mL Depo- Medrol 40 mg/ml 11/25/2018 1.5 mL Depo- Medrol 40 mg/ml 04/23/2018 1.5 mL Depo- Medrol 40 mg/ml 12/08/2013 1.5 mL depo medrol 80 mg 05/07/2025 1.5 mL Benadryl 10/21/2018 .25 mL phenergan 25 mg/ml 11/29/2023 25 mg Dexamethasone 04/16/2025 1 mL Dexamethasone 02/05/2025 1.5 mL Dexamethasone 12/18/2023 1.5 mL Dexamethasone 11/20/2023 1 mL Dexamethasone 03/16/2022 1 mL Dexamethasone 12/19/2019 1 mL Dexamethasone 03/10/2019 1 mL Dexamethasone 03/07/2019 1 mL Dexamethasone 12/16/2018 1 mL Depo- Medrol 40 mg/ml 06/16/2025 1 mL Depo- Medrol 40 mg/ml 04/09/2025 1 mL Depo- Medrol 40 mg/ml 12/25/2024 1 mL Depo- Medrol 40 mg/ml 11/13/2024 1 mL Depo- Medrol 40 mg/ml 09/30/2024 1 mL Depo- Medrol 40 mg/ml 03/11/2024 1 mL Depo- Medrol 40 mg/ml 01/10/2024 1 mL Depo- Medrol 40 mg/ml 12/11/2023 1 mL Depo- Medrol 40 mg/ml 09/04/2023 1 mL Depo- Medrol 40 mg/ml 06/21/2023 1 mL Depo- Medrol 40 mg/ml 05/15/2023 1.5 mL Depo- Medrol 40 mg/ml 03/08/2023 1.5 mL Depo- Medrol 40 mg/ml 01/23/2023 1.5 mL Depo- Medrol 40 mg/ml 12/07/2022 1.5 mL Depo- Medrol 40 mg/ml 09/18/2022 1.5 mL Depo- Medrol 40 mg/ml 08/04/2022 1.5 mL Medical (General) History Medical History History ICD Code hyperlipidemia-followed by Dr. Arrington hypertension Hypothyroidism/goiter kidney stones allergic rhinitis ASCVD: NV - 09/2013-followed by Dr. Arrington q 6 months cataracts Hyperuricemia Inflammatory arthritis - Dr. Cheng polymyalgia rheumatica - Dr. Skylar Bhatia Covid vaccine x2 Oct/Nov 2020 Surgical History Surgery Date(Month/Year) Thyroidectomy/Goiter removal 1999 Back 2001 Total Hysterectomy 1993 Tonsillectomy child Cardiac Stent Placed-[facility]-Dr Arrington. Dr. Santo 10/19/2013 Cataract 10/2017 Hospitalization History Reason Date(Month/Year) [facility] : fall with multiple FX ribs on the right; hyponatremia and hypokalemia 03/12-03/15/2025 Dehydration, Failure to Thrive, Acute Ur inary Retention- [facility] 07/14- Multiple rib and pelvic frac tures; hyponatremia; rheumatoid arthritis; ASCVD- 06/30- Itching, Swelling in Hands- [facility] ER 10/21 Facial Pain, Sinus Blockage- [facility] ER 07/01/2018 Heart Attack- [facility] 09/2013 kidney stones 1993
[2025-07-20] MEDS: KETOROLAC 30MG/ML VIAL 15 MG IV (06:54)
[2025-07-20] MEDS: 0.9 % SODIUM CHLORIDE 1000ML 1,000 ML 999 ML IV (06:54)
[2025-07-20] MEDS: ONDANSETRON 4MG/2ML VIAL 4 MG IV ×2 (06:54→12:49)
[2025-07-20 06:58] LABS: Magnesium 1.7 mg/dl (1.6-2.3); Phosphorous 3.2 mg/dl (2.5-4.5)
[2025-07-20 06:59] LABS: Alanine Aminotransferase 14 U/L (12-78); Albumin Level 4.1 g/dl (3.5-5.0); Albumin/Globulin Ratio 1.5 (1.1-1.8); Alkaline Phosphatase 82 U/L (38-126); Anion Gap 12.5 mEq/L (5-15); Aspartate Amino Transferase 26 U/L (14-36); Bilirubin,Total 1.0 mg/dl (0.2-1.3); Blood Urea Nitrogen 11 mg/dl (7-17); Calcium 8.9 mg/dl (8.4-10.2); Carbon Dioxide 30 mmol/L (22.0-30.0); Chloride 79 mmol/L (98-107); Creatinine Clearance Estimated 50 mL/min (50-200); Creatinine,Serum 0.90 mg/dl (0.52-1.04); Estimated Glomerular Filt Rate 61 ml/min (>60); GFR (African American) 73 ML/MIN (>60); Globulin 2.8 g/dL (1.3-3.2); Glucose 109 mg/dl (74-100); Sodium 119 mmol/L (136-145); Total Protein,Serum 6.9 g/dl (6.3-8.2)
[2025-07-20 07:01] LABS: Lactate Venous 2.0 mmol/L (0.4-2.0); VBG HCO3 30.8 mmol/L (23-30); VBG PCO2 44.3 mmol/L (35-51); VBG PH 7.46 mmol/L (7.31-7.41); VBG PO2 41.9 mmol/L (28-40)
[2025-07-20 07:02] LABS: Hematocrit 37.5 % (37.0-47.0); Hemoglobin 13.1 g/dL (12.2-16.2); Immature Granulocytes % 0.6 %; Mean Corpuscular HGB Conc 34.9 g/dL (31.8-35.4); Mean Corpuscular Hemoglobin 33.1 pg (27.0-31.2); Mean Corpuscular Volume 94.7 fl (81-99); Nucleated Red Blood Cells % 0 %; Platelet Count 257 K/mm3 (142-424); Red Blood Count 3.96 M/mm3 (4.20-5.40); Red Cell Distribution Width-SD 43.3 fL; White Blood Count 15.6 K/mm3 (4.8-10.8)
[2025-07-20 07:03] LABS: D-Dimer 1.03 ug/mL (0.0-0.5); Potassium 2.5 mmoL/L (3.5-5.1)
[2025-07-20 07:11] LABS: Troponin I 0.02 ng/ml (0.00-0.034)
[2025-07-20] MEDS: SODIUM CHLORIDE 0.9% 10ML SYR (RAD ONLY) 10 ML IV (07:24)
[2025-07-20] MEDS: IOPAMIDOL-370 (76%);100ML BOTTLE 80 ML IV (07:24)
[2025-07-20] MEDS: 0.9 % SODIUM CHLORIDE 50 ML VIAL IV (07:24)
[2025-07-20] MEDS: MAGNESIUM SULFATE IN WATER 2 GM/50 ML PIGGYBACK IV ×2 (07:26→19:57)
[2025-07-20 07:29] LABS: Lipase 142 U/L (23-300)
[2025-07-20 07:30] LABS: Acetaminophen < 10 ug/ml (10-30); Salicylate < 1.0 mg/dL (2.0-20.0)
[2025-07-20 08:11] LABS: RBC Morphology Normal; Total Cells Counted 100
--- NOTE | 2025-07-20 08:18 | PC.NURSE ---
Patient able to urinate on bedside, urine was contaminated by patient having a small bowel movement. Dr. Doe notified.
--- NOTE | 2025-07-20 09:19 | PC.NURSE ---
DR OLMSTEAD SPEAKING WITH DR. SHEIKH FOR ADMISSION
--- NOTE | 2025-07-20 09:23 | PC.NURSE ---
WATER RESOURCE ENGINEER NOTIFIED OF ADMISSION
--- NOTE | 2025-07-20 09:54 | PC.NURSE ---
Patient report called to KAMALA Slaughter.
--- NOTE | 2025-07-20 10:11 | PC.NURSE ---
arrived by stretcher
[2025-07-20 10:31] LABS: Troponin I 0.02 ng/ml (0.00-0.034)
--- NOTE | 2025-07-20 12:54 | P.HP_ITS ---
History of Present Illness *Admission Date: 07/20/25 *Reason for visit:: Headache: Nausea and vomiting. *History of present illness: Ms. Culp is a 79-year-old female with a history of hyperlipidemia, hypothyroidism/goiter, kidney stones, allergic rhinitis, ASCVD with an NV in 2012, cataracts, hyperuricemia, inflammatory arthritis who presented to [facility] emergency room this a.m. for ongoing severe headache/sinus issues and nausea and vomiting. Patient states the nausea started yesterday. She thinks she has a sinus infection and took multiple Tylenol's for the pain. She states nothing has relieved the discomfort. She started with the nausea and did vomit during the night. She did not eat or drink yesterday and has not taken any medicine. Bowels moved 2 days ago and she did have a bowel movement in the emergency room. She has seen no blood or black stools. She does deny diarrhea. She has had some postnasal drainage and a cough. Her states that she could hardly walk this morning; she was so weak. Thus they brought her to the emergency room. Workup in the emergency room revealed white blood cell count of 15,600 with a hemoglobin of 13.1 hematocrit of 37.5. Electrolytes revealed a low potassium at 2.5; she did receive a total of 30 meq of IV potassium. Glucose was 109. Troponin I's have been negative x 2. In the emergency room she also received 2 g of mag sulfate IV and a liter of normal saline IV; she received ketorolac 15 mg IV once and 4 mg of Zofran. Chest CTA revealed no pulmonary embolism or dissection. Possible mild edema or pneumonitis bilaterally; abdomen/pelvis CT revealed no acute intraabdominal process. EKGs showed sinus rhythm with first-degree AV block at a rate of 79/min. D- dimer was elevated at 1.03 with a negative CTA of the chest. Sodium low at 119 but she has a history of hyponatremia with her normal at 120. Creatinine was normal. Magnesium borderline at 1.7. Liver function studies normal. Lipase normal. Negative Tylenol and salicylates. VBG revealed mild metabolic alkalosis with normal lactate. Patient did ultimately have a large bowel movement while voiding in the emergency room. She was admitted for further evaluation and treatment. With this exam/visit patient remains nauseated and is chilling. She has not vomited. She feels miserable and continues to complain of a severe headache. [facility] Disclaimer: The information contained in this section may have been updated after the patient was seen, as this information can be updated by other users. 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 Hyponatremia Abnormal weight loss Anorexia Hypoglycemia Postobstructive diuresis Acute urinary retention Adult failure to thrive Nausea Multiple fractures of pelvis with disruption of pelvic ring Hypochloremia Falls Trochanteric bursitis, right hip Skin tear of left upper extremity Contusion of elbow, left Contusion of hip, left Trochanteric bursitis, left hip Closed fracture of greater trochanter of femur Pain around toenail, right foot Ingrown toenail of right foot Closed nondisplaced fracture of fifth right metatarsal bone MARY (acute kidney injury) Enteritis Hypothyroidism Foot fracture, right Polymyalgia rheumatica syndrome History of back pain History of left heart catheterization Hyperlipidemia Hypertension Cataract COVID-19 Closed fracture of fourth metatarsal of right foot Nondisplaced fracture of fifth right metatarsal bone with routine healing Myocardial infarction HLD (hyperlipidemia) CAD (coronary artery disease) Rheumatoid arthritis Surgical History H/O cataract removal with insertion of prosthetic lens History of heart artery stent Previous back surgery H/O thyroidectomy History of appendectomy History of hysterectomy History of tonsillectomy Family History Other Cancer Heart attack Hypertension Social History (Updated 07/20/25 @ 10:41 by Jacquelyn Mays RN) Smoking Status: Former smoker tobacco type: cigarettes packs per day: 1 pack- years: 46 years smoked: 40 how long ago did patient quit smokin years alcohol intake: never substance use type: denies use current occupational status: retired Travel in the last 8 weeks?: None caregiver/support person: Yes () household members: spouse housing: house marital status: 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 needs: No Have you lived/traveled outside US in past 30 days?: No Contact w/someone who lives/traveled outside US past 30 days?: No Exposure to someone with infectious disease in past 14 days?: No Do you have a fever (greater than 100.4 F or 38 C)?: No Have you tested positive for COVID-19?: No Exposed to someone with COVID-19 in past 14 days?: No Do you have a sore throat?: No Do you have a cough?: No Do you have any weakness?: No Are you experiencing any nausea/vomitting?: No Do you have any diarrhea?: No Are you experiencing any unusual bleeding?: No Do you have any muscle aches/pain?: No Do you have any abdominal pain?: No Are you experiencing loss of taste or smell?: No Other Medical History Have you received the Flu Vaccine for this season: Yes Have you received the Pneumonia Vaccine: Yes Review of Systems Constitutional Constitutional: Reports body ache(s), Reports chills, Denies fever(s), Denies frequent falls, Reports headache(s) and Reports weakness Eyes Eyes: Denies change in vision ENT Ears, Nose, Mouth, and Throat: Reports disequilibrium, Reports facial pain, Reports headache(s), Reports nasal congestion, Reports post nasal drip, Reports sinus pain, Reports sinus pressure and Denies sore throat *Cardiovascular Cardiovascular: Denies dyspnea, Denies edema and Denies irregular heart rhythm *Respiratory Respiratory: Denies chest congestion, Reports cough, Denies dyspnea and Denies hemoptysis *Gastrointestinal Gastrointestinal: Denies abdominal pain, Denies constipation, Denies dyspepsia, Denies loose stools, Denies melena, Reports nausea and Reports vomiting *Genitourinary Genitourinary: Denies difficulty voiding *Musculoskeletal Musculoskeletal: Denies abnormal gait, Denies arthralgias and Reports muscle weakness *Neurologic Neurologic: Denies abnormal gait, Reports disequilibrium, Denies frequent falls, Reports headache(s) and Reports weakness Meds Home Medications and Allergies Home Medications ?Medication ?Instructions ?Recorded ?Confirmed ?Type levothyroxine 112 mcg tablet 112 mcg PO DAILYDM 07/20/25 History hydroxychloroquine 200 mg tablet 200 mg PO DAILY 05/1107/20/25 History acetaminophen 500 mg tablet 500 mg PO Q6HP PRN Mild Pa in 07/15/24 07/20/25 History (Scale Score 1-4) cyclobenzaprine 5 mg tablet 5 mg PO HSP PRN muscle spa sms 07/15/24 07/20/25 His tory melatonin 3 mg tablet 3 mg PO HSP Insomnia 4 07/20/25 History tramadol 50 mg tablet 50 mg PO Q6HP PRN Moderate P ain 07/15/24 07/20/25 History (Scale Score 5-6) carvedilol 12.5 mg tablet 12.5 mg PO BID 03/12/2506/23 History potassium chloride 10 mEq 10 meq PO BID #60 caps 03/1507/20/25 Rx capsule,extended release pravastatin 40 mg tablet 40 mg PO HS #30 tabs 5 07/20/25 Rx chlorthalidone 25 mg tablet 12.5 mg PO DAILY 07/20/25 07/20/25 History tamsulosin 0.4 mg capsule 0.4 mg PO HS 07/20/25 History New Prescriptions to Start Prescriptions: Allergies Allergy/AdvReac Type Severity Reaction Status Date / Time Sulfa (Sulfonamide Allergy Unknown Hives Verified 07/20/25 06:46 Antibiotics) (SULFA (SULFONAMIDE ANTIBIOTICS)) codeine Allergy Vomiting Verified 07/20/25 06:46 Penicillins Allergy Hives Verified 07/20/25 06:46 hydrocodone AdvReac Other Verified 07/20/25 06:46 Exam Data for Last 24 hours Vital signs and Labs for Last 24 Hours: Temp Pulse Resp BP Pulse Ox O2 Del Method 97.8 F 72 17 146/75 H 97 Room Air 07/20/25 10:50 07/20/25 12:00 07/20/25 10:50 07/20/25 10:50 07/20/25 10:50 07/20/25 11:00 Laboratory Results - last 24 hr 07/20/25 06:35: WBC 15.6 H, RBC 3.96 L, Hgb 13.1, Hct 37.5, MCV 94.7, MCH 33.1 H , MCHC 34.9, RDW 12.4, Plt Count 257, MPV 9.9, Neut % (Auto) 79.9, Lymph % (Auto) 6.8 L, Burke % (Auto) 10.2 H, Eos % (Auto) 1.9, Baso % (Auto) 0.6, Neut # (Auto) 12.5 H, Lymph # (Auto) 1.1, Burke # (Auto) 1.6 H, Eos # (Auto) 0.3, Baso # (Auto) 0.1, Total Counted 100, Neutrophils % (Manual) 86 H, Band Neutrophils % 1.0, Lymphocytes % (Manual) 6 L, Monocytes % (Manual) 6, Eosinophils % (Manual) 1, Platelet Estimate Normal, RBC Morphology Normal, D-Dimer 1.03 H, VBG pH 7.46 H, VBG pCO2 44.3, VBG pO2 41.9 H, VBG HCO3 30.8 H, VBG Total CO2 32.2 H, VBG O2 Saturation 78.9 H, VBG Base Excess 7.0 H, VBG Lactic Acid 2.0, Sodium 119 L, Potassium 2.5 L*, Chloride 79 L, Carbon Dioxide 30, Anion Gap 12.5, BUN 11, Creatinine 0.90, Estimated Creat Clear 50, Estimated GFR 61, Est GFR ( Amer) 73, Glucose 109 H, Calcium 8.9, Phosphorus 3.2, Magnesium 1.7, Total Bilirubin 1.0, AST 26, ALT 14, Alkaline Phosphatase 82, Troponin I 0.02, Total Protein 6.9, Albumin 4.1, Globulin 2.8, Albumin/Globulin Ratio 1.5, Lipase 142, Salicylates < 1.0 L, Acetaminophen < 10 L 07/20/25 09:48: Troponin I 0.02 I & O for Last 24 hours: Intake & Output 07/18/25 07/19/25 07/20/25 07/21/25 11:59 11:59 11:59 11:59 Intake Total 1350 / 1350 Balance 1350 / 1350 Weight 140 lb 8 oz Constitutional Constitutional: no acute distress *Routine HEENT Exam Head: Present normocephalic and atraumatic Eye: Present PERRL; Absent conjunctival icterus, scleral injection or conjunctivae pink ENT: Present mucous membranes dry and oropharynx clear *Routine Neck Exam Neck: Present supple; Absent carotid bruit, lymphadenopathy or thyromegaly *Routine Respiratory Exam Respiratory: Present CTA bilaterally (Anteriorly and posteriorly) and normal respiratory effort; Absent decreased breath sounds *Routine Cardiovascular Exam Cardiovascular: Present RRR (Premature beats) *Routine Abdominal Exam Abdominal: Present soft; Absent normoactive bowel sounds (Decreased bowel sounds), tenderness, distended, rebound or organomegaly *Routine Rectal Exam Rectal:: deferred *Routine Genitalia Exam Genitalia:: deferred *Routine Extremities Exam Extremities: Present pulses intact; Absent edema or calf tenderness *Routine Neurological Exam Neurological: Present alert and oriented X3 (Answers all questions appropriately) Assessment and Plan *Assessment and plan (1) Vomiting: Status: Acute Category: Medical Code(s): R11.10 - Vomiting, unspecified (2) Leukocytosis: Status: Acute Category: Medical Code(s): D72.829 - Elevated white blood cell count, unspecified (3) Acute hypokalemia: Status: Resolved Category: Medical Code(s): E87.6 - Hypokalemia (4) Hypomagnesemia: Status: Acute Category: Medical Code(s): E83.42 - Hypomagnesemia (5) Hypothyroidism: Status: Chronic Qualifiers: Hypothyroidism type: postoperative Qualified Code(s): E89.0 - Postprocedural hypothyroidism Category: Medical Code(s): E03.9 - Hypothyroidism, unspecified (6) Rheumatoid arthritis: Status: Acute Category: Medical Code(s): M06.9 - Rheumatoid arthritis, unspecified (7) CAD (coronary artery disease): Status: Acute Category: Medical Code(s): I25.10 - Atherosclerotic heart disease of [place] coronary artery without angina pectoris (8) Hyponatremia: Status: Acute Category: Medical Code(s): E87.1 - Hypo-osmolality and hyponatremia (9) Chronic hyponatremia: Status: Acute Category: Medical Code(s): E87.1 - Hypo-osmolality and hyponatremia (10) Hypertension: Status: Acute Category: Medical Code(s): I10 - Essential (primary) hypertension (11) Headache: Status: Acute Category: Medical Code(s): R51.9 - Headache, unspecified (12) Dehydration: Status: Acute Category: Medical Code(s): E86.0 - Dehydration Plan IV fluids with potassium; monitor labs; pain relief. Antiemetics. An antibiotic. GI rest Dr. Garcia entry - Saw patient, agree with above note. Spoke to patient's daughter at bedside. Awaiting UA. Patient provided a sample earlier but it was contamininated with stool. ANtibiotics have not been started at this point. Continue IV fluds, resume some of her home meds. Start Lovenox for DVT prophylaxis and Pepcod for GI prophylaxis.
[2025-07-20] MEDS: 0.9% NaCl w/20mEq KCL 1,000 ML 125 ML IV (13:45)
--- NOTE | 2025-07-20 15:56 | PC.NURSE ---
notified MD at 1230 that patient was c/o nausea. IV zofran ordered. after reassessing patient, patient continued to have complaints of nausea, MD notified and IV phenergan ordered. upon entering room to administer med, patient was resting with eyes closed, RR even and unlabored. family member requested i come back when patient wakes up. bed alarm in place, call light within reach, family at bedside.
[2025-07-20] MEDS: D5W/0.9% NaCl w/40mEq KCL 1,000 ML 100 ML IV (19:46)
[2025-07-20] MEDS: ACETAMINOPHEN 325MG TAB 650 MG PO (20:10)
[2025-07-20 20:45] LABS: Microscopic, Urine URINE MICROSCOPIC (MICROSCOPIC)
[2025-07-20 20:54] LABS: Bilirubin,Urine Negative (Negative); Color,Urine YELLOW (Yellow); Glucose,Urine (UA) Negative (Negative); Ketones,Urine TRACE (Negative); Leukocyte Esterase,Urine Negative (Negative); PH,Urine 7.0 (5.0-8.5); Protein,Urine 1+ (Negative); Specific Gravity, Urine 1.015 (1.005-1.030); Urobilinogen,Urine 0.2 EU/dl (0.2)
--- NOTE | 2025-07-20 21:04 | XR_ITS ---
PROCEDURE INFORMATION: Exam: XR Chest Exam date and time: 07/20/2025 9:11 PM Age: 79 years old Clinical indication: Fever TECHNIQUE: Imaging protocol: Radiologic exam of the chest. Views: 1 view. COMPARISON: CT ANGIO CHEST PE PROTOCOL 07/20/2025 7:19 AM FINDINGS: Lungs: Calcified granulomas within the lower lobes bilaterally. No focal consolidation or pulmonary edema. Pleural spaces: Normal. Heart/Mediastinum: Calcification of the mitral valve annulus. Vasculature: Atherosclerotic vascular disease. Bones/joints: Multilevel thoracic spine degenerative disc space narrowing and osteophyte formation. IMPRESSION: No acute cardiopulmonary abnormality.
[2025-07-20] MEDS: FAMOTIDINE 20MG TABLET 20 MG PO (21:46)
[2025-07-20 21:58] LABS: Bacteria,Urine 1+ /lpf; Squamous Epithelial Cell,Urine Occasional #/hpf (0-5)
[2025-07-20] MEDS: CARVEDILOL 12.5MG TABLET 12.5 MG PO (21:58)
[2025-07-20 22:05] LABS: Adenovirus,PCR Not Detected (NotDetected); Chlamydophila Pneumoniae, PCR Not Detected (NotDetected); Coronavirus 19, PCR Not Detected (NotDetected); Coronovirus HKU1,PCR Not Detected (NotDetected); Influenza A, PCR Not Detected (NotDetected); Influenza AH1, 2009 Not Detected (NotDetected); Influenza AH1, PCR Not Detected (NotDetected); Influenza AH3,PCR Not Detected (NotDetected); Influenza B, PCR Not Detected (NotDetected); Mycoplasma Pneumoniae, PCR Not Detected (NotDetected); Parainfluenza 1, PCR Not Detected (NotDetected); Parainfluenza 2, PCR Not Detected (NotDetected); Parainfluenza 3, PCR Not Detected (NotDetected); Parainfluenza 4, PCR Not Detected (NotDetected)
[2025-07-21] VITALS (7 sets, daily range): BP systolic 91–158; BP diastolic 51–97; PULSE 55–80; RESP 12–20; TEMP 36.9–38.1; O2SAT 93–96; BMI 23.1
--- NOTE | 2025-07-21 02:20 | PC.NURSE ---
07/20/252044: Patient has a fever of 101.[address] Mary congressional district aide for Dr. Garcia, Dr. Mary notified about temp. orders received and carried out.
--- NOTE | 2025-07-21 03:54 | PC.NURSE ---
Pt. is alert and orientated x 4. Pt. is on room air. Pt. was admitted yesterday for low sodium and low potassium levels. Pt. states that she has not felt well for a aouple of day. has had nausea, vomiting and feeling very weak at home. Pt. also c/o headache and body aches. Pt. did spike a temperature overnight to 101.[address] Mary was notified and orders were received. IV antibiotics were started. Pt. on IV fluids with potassium as her potassium level was very low. Pt. has a pure wick in place and has had good urine output. Pt was medicated for the fever per the DEC. temperature did come down to normal and the patient states the headache and body aches were a little better. Pt. moaning and states that she just feels sick. Pt. fell asleep and has slept well. Pt. was c/o nausea at start of shift she was medicated with Zofran and the nausea decreased. Personal items and call molina in reach. Bed in low and locked position. Safety measures in place.
[2025-07-21] MEDS: D5W/0.9% NaCl w/40mEq KCL 1,000 ML 100 ML IV ×2 (05:34→15:45)
[2025-07-21 06:22] LABS: Hematocrit 37.1 % (37.0-47.0); Hemoglobin 13.0 g/dL (12.2-16.2); Immature Granulocytes % 0.9 %; Mean Corpuscular HGB Conc 35.0 g/dL (31.8-35.4); Mean Corpuscular Hemoglobin 33.6 pg (27.0-31.2); Mean Corpuscular Volume 95.9 fl (81-99); Nucleated Red Blood Cells % 0 %; Platelet Count 206 K/mm3 (142-424); Red Blood Count 3.87 M/mm3 (4.20-5.40); Red Cell Distribution Width-SD 44.5 fL; White Blood Count 7.6 K/mm3 (4.8-10.8)
[2025-07-21 06:33] LABS: Anion Gap 10.3 mEq/L (5-15); Blood Urea Nitrogen 11 mg/dl (7-17); Calcium 8.4 mg/dl (8.4-10.2); Carbon Dioxide 27 mmol/L (22.0-30.0); Chloride 89 mmol/L (98-107); Creatinine Clearance Estimated 42 mL/min (50-200); Creatinine,Serum 1.10 mg/dl (0.52-1.04); Estimated Glomerular Filt Rate 48 ml/min (>60); GFR (African American) 58 ML/MIN (>60); Glucose 126 mg/dl (74-100); Magnesium 2.7 mg/dl (1.6-2.3); Potassium 3.3 mmoL/L (3.5-5.1); Sodium 123 mmol/L (136-145)
--- NOTE | 2025-07-21 06:48 | PC.NURSE ---
Pt. has very fragile skin, she bumped miller against bedrail when up to BSC and has a skin tear to anterior miller. skin tear over a bruised area, skin tear was bleeding. Cleaned with saline and gauze. dressed with non adherent dressing, gauze square and gauze roll.
[2025-07-21 06:53] LABS: Total Cells Counted 100
[2025-07-21] MEDS: ONDANSETRON 4MG/2ML VIAL 4 MG IV (07:31)
--- NOTE | 2025-07-21 07:40 | EXP.PN ---
Subjective *Date: 07/21/25 *Time: 08:55 Interval history: Patient states she does not feel any better. She continues with a headache and nausea which she notes have not improved at all. Nursing states she did sleep a little. She has been sipping on Sprite and retaining. She passes flatus but has not had a bowel movement. White count is normal this morning with at 7600. With a hemoglobin of 13 and hematocrit of 37. Blood chemistries with an improved sodium of 123 potassium is at 3.3. BUN is 11 and creatinine is 1.1. Magnesium is high at 2.7. Urinalysis did show positive nitrates with 1+ protein and blood. WBCs were 3+ and there is 1+ urine bacteria urine and blood cultures are pending. Chest x-ray revealed no acute cardiopulmonary abnormalities. Exam Data for Last 24 hours Vital signs and Labs for Last 24 Hours: Temp Pulse Resp BP Pulse Ox O2 Del Method 98.7 F 72 14 155/89 H 93 L Room Air 07/21/25 04:00 07/21/25 04:00 07/21/25 04:00 07/21/25 04:00 07/21/25 04:00 07/21/25 06:46 Laboratory Results - last 24 hr 07/20/25 06:35: Total Counted 100, Neutrophils % (Manual) 86 H, Band Neutrophils % 1.0, Lymphocytes % (Manual) 6 L, Monocytes % (Manual) 6, Eosinophils % (Manual) 1, Platelet Estimate Normal, RBC Morphology Normal 07/20/25 09:48: Troponin I 0.02 07/20/25 17:57: Urine Color Yellow, Urine Appearance Clear, Urine pH 7.0, Ur Specific [place] 1.015, Urine Protein 1+ A, Urine Glucose (UA) Negative, Urine Ketones Trace, Urine Blood 1+ A, Urine Nitrate Positive A, Urine Bilirubin Negative, Urine Urobilinogen 0.2, Ur Leukocyte Esterase Negative, Urine RBC 3-5, Urine WBC 3-5, Ur Squamous Epith Cells Occasional, Urine Bacteria 1+ 07/20/25 21:10: Chlamy pneumoniae PCR Not detected, Adenovirus (PCR) Not detected, B. pertussis DNA (PCR) Not detected, Coronavirus OC43 (PCR) Not detected, Coronavirus HKU1 (PCR) Not detected, Coronavirus 229E (PCR) Not detected, SARS-CoV-2 (PCR) Not detected, Coronavirus NL63 (PCR) Not detected, Human Metapneumovir PCR Not detected, Influenza A (H1) PCR Not detected, Influ A (H1N1/09) PCR Not detected, Influenza A (H3) PCR Not detected, Influenza Type A (PCR) Not detected, Influenza Type B (PCR) Not detected, M. pneumoniae (PCR) Not detected, Parainfluenza 1 (PCR) Not detected, Parainfluenza 2 (PCR) Not detected, Parainfluenza 3 (PCR) Not detected, Parainfluenza 4 (PCR) Not detected, RSV (PCR) Not detected, Entero/Rhino (PCR) Not detected 07/21/25 05:38: WBC 7.6 D, RBC 3.87 L, Hgb 13.0, Hct 37.1, MCV 95.9, MCH 33.6 H, MCHC 35.0, RDW 12.6, Plt Count 206, MPV 9.7, Neut % (Auto) 88.6 H, Lymph % (Auto) 3.2 L, [place] % (Auto) 6.4, Eos % (Auto) 0.1, Baso % (Auto) 0.8, Neut # (Auto) 6.7, Lymph # (Auto) 0.2 L, [place] # (Auto) 0.5, Eos # (Auto) 0.0, Baso # (Auto) 0.1, Total Counted 100, Neutrophils % (Manual) 88 H, Lymphocytes % (Manual) 5 L, Monocytes % (Manual) 6, Eosinophils % (Manual) 1, Sodium 123 L, Potassium 3.3 L D, Chloride 89 L, Carbon Dioxide 27, Anion Gap 10.3, BUN 11, Creatinine 1.10 H D, Estimated Creat Clear 42, Estimated GFR 48 L, Est GFR ( Amer) 58 L D, Glucose 126 H, Calcium 8.4, Magnesium 2.7 H D I & O for Last 24 hours: Intake & Output 07/18/25 07/19/25 07/20/25 07/21/25 11:59 11:59 11:59 11:59 Intake Total 1350 / 1350 [birth year] Output Total 600 / 600 Balance 1350 / 1350 1346 / 1346 Weight 140 lb 8 oz 138 lb 14.4 oz Constitutional Constitutional: no acute distress Comments: Lying flat in bed and appears not to feel well. Keeps her eyes closed during exam. Does answer all questions appropriately. *Routine Respiratory Exam Respiratory: Present CTA bilaterally *Routine Cardiovascular Exam Cardiovascular: Present RRR and murmur *Routine Abdominal Exam Abdominal: Present soft and normoactive bowel sounds; Absent tenderness or distended *Routine Extremities Exam Extremities: Absent edema *Routine Neurological Exam Neurological: Present alert and oriented X3 Assessment and Plan *Assessment and plan (1) Vomiting: Status: Acute Category: Medical Code(s): R11.10 - Vomiting, unspecified (2) Leukocytosis: Status: Acute Category: Medical Code(s): D72.829 - Elevated white blood cell count, unspecified (3) Acute hypokalemia: Status: Resolved Category: Medical Code(s): E87.6 - Hypokalemia (4) Hypomagnesemia: Status: Acute Category: Medical Code(s): E83.42 - Hypomagnesemia (5) Hypothyroidism: Status: Chronic Qualifiers: Hypothyroidism type: postoperative Qualified Code(s): E89.0 - Postprocedural hypothyroidism Category: Medical Code(s): E03.9 - Hypothyroidism, unspecified (6) Rheumatoid arthritis: Status: Acute Category: Medical Code(s): M06.9 - Rheumatoid arthritis, unspecified (7) CAD (coronary artery disease): Status: Acute Category: Medical Code(s): I25.10 - Atherosclerotic heart disease of [place] coronary artery without angina pectoris (8) Hyponatremia: Status: Acute Category: Medical Code(s): E87.1 - Hypo-osmolality and hyponatremia (9) Chronic hyponatremia: Status: Acute Category: Medical Code(s): E87.1 - Hypo-osmolality and hyponatremia (10) Hypertension: Status: Acute Category: Medical Code(s): I10 - Essential (primary) hypertension (11) Headache: Status: Acute Category: Medical Code(s): R51.9 - Headache, unspecified (12) Dehydration: Status: Acute Category: Medical Code(s): E86.0 - Dehydration Plan Patient did have a significant fever during the night and has been started on Rocephin IV. Continue with IV fluids. Electrolytes have improved. She is receiving Zofran and Phenergan for her nausea. Dr. Garcia entry - Saw patient, agree with above note. Labs have improved, contiune IV Rocephin for now, await urine culture.
[2025-07-21] MEDS: LEVOTHYROXINE 112MCG (0.112MG) TAB 112 MCG PO (08:37)
[2025-07-21] MEDS: CARVEDILOL 12.5MG TABLET 12.5 MG PO ×2 (08:37→20:18)
[2025-07-21] MEDS: FAMOTIDINE 20MG TABLET 20 MG PO ×2 (08:37→20:18)
[2025-07-21] MEDS: PROMETHAZINE HCL 25MG/ML 1ML VIAL 12.5 MG IV (08:44)
--- NOTE | 2025-07-21 13:07 | SW/DCPLANNER ---
Addendum entered by Apple Paz 07/24/25 09:47: Patient's granddaughter and sister have reached out to me regarding additional concerns of patient returning home. Both have stated that patient's will be starting radiation on Sunday and they are afraid that he could have a reaction and not be able to care for patient. Patient is alert and oriented and not agreeable to placement at this time. I did have a lengthy discussion w/ patient, sister and granddaughter (via phone) that patient is improved mentally and physically and does not meet criteria for placement at this time. I did offer to provide a private sitters list but sister refused at this time stating that they have a family friend they plan to reach out to. I again offered home health services but patient refused only wanting outpatient PT services in [place]. I also informed patient/family that if patient feels the need/agreeable for placement in the near future they could reach out to [place] regarding placement from home. I will follow up w/ Dr Garcia once he re-evaluates patient this afternoon. Addendum entered by Apple Paz 07/24/25 09:14: Patient was able to ambulate 75 ft this AM w/ PT. Per patient she prefers to return home w/ family and do outpatient PT in [place]. Per Dr Garcia patient could discharge home later today. at bedside and agreeable to discharge plan. Addendum entered by Apple Paz 07/22/25 10:21: Per patient, and daughter they are agreeable to private pay placement at [facility] at time of discharge. I have updated Marlene w/ [facility]. I also updated Johnnie w/ [facility]. Discharge date is unknown at this time. CM will continue to follow up. Addendum entered by Apple Paz 07/21/25 15:16: Johnnie urbina/ [facility] will be at bedside to speak w/ patient and family today. Addendum entered by Apple [place] 07/21/25 14:34: I spoke w/ patient's and daughter (Laura) regarding discharge plans. Patient was resting in bed unable to answer questions at the time of my visit. PT/OT evaluated patient and recommended placement. I explained to patient's family that due to being OBS patient would require placement under private pay. Family is agreeable for information to be faxed to [facility] and [facility] at this time. I have also discussed other discharge planning options including home health vs private sitters at home. I will continue to follow up w/ patient, family, MD and facilities. Discharge date is unknown at this time. Original Note: Patient's has voiced some concerns regarding discharge planning and not being able to care for patient at home. PT/OT has been ordered. Once evaluation is completed I will follow up w/ patient and . Discharge date is unknown at this time. Patient's granddaughter (Antoinette) also called to ask questions regarding discharge planning.
--- NOTE | 2025-07-21 13:39 | HMH.OTEV ---
OT Evaluation Rehab OT IP Evaluation Start: 07/21/25 11:17 Freq: ONCE Status: Active Protocol: Document 07/21/25 13:33 [facility] (Rec: 07/21/25 13:39 [facility] [id number]) Rehab OT IP Assessment Subjective History Pt oriented x 3 on arrival. Pt admitted on 07/20/25 due to hyponatremia and hypokalemia. History and physical: Ms. Culp is a 79-year-old female with a history of hyperlipidemia, hypothyroidism/goiter, kidney stones, allergic rhinitis, ASCVD with an ID in 2012, cataracts, hyperuricemia, inflammatory arthritis who presented to [facility] emergency room this a.m. for ongoing severe headache/sinus issues and nausea and vomiting. Patient states the nausea started yesterday . She thinks she has a sinus infection and took multiple Tylenol's for the pain. She states nothing has relieved the discomfort. She started with the nausea and did vomit during the night. She did not eat or drink yesterday and has not taken any medicine. Bowels moved 2 days ago and she did have a bowel movement in the emergency room. She has seen no blood or black stools. She does deny diarrhea. She has had some postnasal drainage and a cough. Her states that she could hardly walk this morning; she was so weak. Thus they brought her to the emergency room. Subjective Pt lives at home with her . She claims normally she is independent with all ADLs (feeding, dressing, and bathing). Pt is able to complete simple IADLs, but is dependent upon for heavier hammerer . Pt's uses a rollator for all functional transfers. Pt no longer drives. Objective Patient Orientation Person,Place,Birthday Right Upper WFL Extremity Gross ROM Left Upper Extremity WFL Gross ROM Bed Mobility bed mobility-scooting,bed mobility - supine/sit Assist Level Minimal x 2 (25% assist) Rehab OT IP prob,goals,plan Problems Date of Evaluation: 07/21/25 OT IP Problems Bed Mobility,Transfers,Balance,Self care,Safety Rehab Potential Rehab Potential Good Equipment Needs Assistive Devices Rolling / Wheeled Walker Plan OT intervention Plan Bed Mobility,Transfers,Balance,Self care,Safety, Therapeutic Exercise OT Plan Frequency Daily Duration LOS Discharge Goals Bed Mobility Ability Assistance x1 Sit to Stand Chair Minimal x 1 (25% assist) Transfer Ability Chair Transfer Minimal x 1 (25% assist) Ability Chair Transfer Sit to/from Ambulatory Technique Chair Transfer Rolling Walker Assistive Devices Lower Body Dressing Moderate Assistance Ability Performing Toilet Minimal Assistance Hygiene Ability Overall Commode/ Minimal Assistance Toilet Transfer Ability Commode/Toilet Sit to/from Ambulatory Transfer Technique Discharge Plan OT Discharge Plan Pt will continue to be seen for OT services while at [facility]. Pt does appear to be below baseline at this time with functional transfers and ADL independence. Pt would benefit most from short term rehab placement following discharge from hospital. However, if pt demonstrates improvement with overall functional ability she could possibly return home with 24/7 assist from family. If she were to return home with family, therapist would recommend OT evaluation. Continued skilled therapy is important in order for patient to improve strength, safety, endurance, ADL independence, and functional transfers to reach PLOF. Eval Complexity Eval Charge Codes 49083 - Moderate Complexity PHYSICIAN CERTIFICATION: I certify the specified therapy services for Andry Culp are required, authorized, and reviewed every 30 days.
[2025-07-21] MEDS: KETOROLAC 15MG/ML VIAL 15 MG IV (13:52)
--- NOTE | 2025-07-21 18:19 | PC.NURSE ---
pt resting in bed, n/v has gotten better with PRN meds. Iv fluids running at 100ml hour. BM today. call light in reach
[2025-07-21] MEDS: ACETAMINOPHEN 325MG TAB 650 MG PO (20:18)
[2025-07-22] VITALS (7 sets, daily range): BP systolic 135–161; BP diastolic 75–82; PULSE 60–96; RESP 16–18; TEMP 36.8–37.8; O2SAT 93–96; BMI 24.0
--- NOTE | 2025-07-22 03:39 | PC.NURSE ---
Pt alert to self and place. Pt finished fluids this shift and has been receiving abx. VSS. Currently resting in bed with eyes closed. Respirations even and unlabored. Bed low, locked, and call light in reach. Bed alarm on and functioning.
[2025-07-22 06:01] LABS: Hematocrit 34.8 % (37.0-47.0); Hemoglobin 11.7 g/dL (12.2-16.2); Immature Granulocytes % 1.1 %; Mean Corpuscular HGB Conc 33.6 g/dL (31.8-35.4); Mean Corpuscular Hemoglobin 32.8 pg (27.0-31.2); Mean Corpuscular Volume 97.5 fl (81-99); Nucleated Red Blood Cells % 0 %; Platelet Count 178 K/mm3 (142-424); Red Blood Count 3.57 M/mm3 (4.20-5.40); Red Cell Distribution Width-SD 46.4 fL; White Blood Count 6.2 K/mm3 (4.8-10.8)
[2025-07-22] MEDS: LEVOTHYROXINE 112MCG (0.112MG) TAB 112 MCG PO (06:03)
[2025-07-22 07:19] LABS: RBC Morphology Normal; Total Cells Counted 100
--- NOTE | 2025-07-22 08:20 | EXP.ACUTE.PN ---
Subjective *Date: 07/22/25 *Time: 08:54 Interval history: Patient states she is nauseated and just does not feel well this morning. She denies any particular pain. She did not rest last night. Medical Exam Vital signs and Labs for Last 24 Hours: Vital Signs Temp Pulse Pulse Resp BP Pulse Ox O2 Del Method 07/22/25 07:00 Room Air 07/22/25 05:00 Room Air 07/22/25 04:00 70 07/22/25 04:00 98.3 F 65 16 161/78 H 95 Room Air 07/22/25 03:00 Room Air 07/22/25 01:00 Room Air 07/22/25 00:00 98.6 F 64 18 145/76 H 96 Room Air 07/22/25 00:00 60 07/21/25 23:00 Room Air 07/21/25 21:00 Room Air 07/21/25 20:00 75 07/21/25 20:00 Room Air 07/21/25 19:57 100.1 F H 73 17 158/97 H 94 L Room Air 07/21/25 18:20 Room Air 07/21/25 16:00 98.6 F 65 16 140/72 96 Room Air 07/21/25 16:00 70 07/21/25 12:22 Room Air 07/21/25 12:00 80 07/21/25 12:00 98.4 F 76 20 155/84 H 95 Room Air 07/21/25 10:07 Room Air 07/21/25 09:00 Room Air Intake and Output 07/21/25 07/22/25 07/22/25 19:59 03:59 11:59 Intake Total 1200 / 0 1050 / 2250 Output Total 0 / 300 300 / 300 Balance 1199 / 1949 105 / 1949 - / 1949 Intake: Intake, Oral Amount 200 / 200 Intake, Total IV Amount 999 / 0 105 / 0 Ceftriaxone Sodium 1 gm In 0.9 50 / 50 % Sodium Chloride 50 ml @ 100 mls/hr IV Q24H [facility] Rx#:[id number] D5W/0.9% NaCl w/40mEq KCL 1,000 1000 / 2000 1000 / 2000 ml @ 100 mls/hr IV .Q10H [facility] Rx#:[id number] Output: Output, Urine Amount 0 / 300 300 / 300 Other: Number of Unmeasured Voids 1 Number of Bowel Movements 1 1 Weight 144 lb 4.801 oz Patient Weight 07/22/25 11:59 Weight 144 lb 4.801 oz Laboratory Results - last 24 hr 07/22/25 05:38: WBC 6.2, RBC 3.57 L, Hgb 11.7 L, Hct 34.8 L, MCV 97.5, MCH 32.8 H, MCHC 33.6, RDW 12.9, Plt Count 178, MPV 9.6, Neut % (Auto) 80.5 H, Lymph % (Auto) 8.1 L, [place] % (Auto) 7.9, Eos % (Auto) 1.6, Baso % (Auto) 0.8, Neut # (Auto) 5.0, Lymph # (Auto) 0.5 L, [place] # (Auto) 0.5, Eos # (Auto) 0.1, Baso # (Auto) 0.1, Total Counted 100, Neutrophils % (Manual) 86 H, Lymphocytes % (Manual) 6 L, Monocytes % (Manual) 7, Eosinophils % (Manual) 1, Platelet Estimate Normal, RBC Morphology Normal I & O for Labs for Last 24 Hours: Intake & Output 07/19/25 07/20/25 07/21/25 07/22/25 11:59 11:59 11:59 11:59 Intake Total 1350 / 1350 2066 / 2066 2250 / 2250 Output Total 600 / 600 300 / 300 Balance 1350 / 1350 1466 / 1466 1950 / 1950 Weight 140 lb 8 oz 138 lb 14.4 oz 144 lb 4.801 oz Microbiology Reports for the Last 24 Hours: Microbiology 07/20/25 21:29 Blood Blood Culture - Preliminary NO GROWTH AFTER 24 HOURS 07/20/25 21:29 Blood Blood Culture - Preliminary NO GROWTH AFTER 24 HOURS Head: Present normocephalic Neck: Present normal inspection Respiratory: Present decreased breath sounds and CTA bilaterally Cardiac: Present Reg Rate and Rhythm GI: Present soft; Absent tenderness Rectal (female): Present deferred (female): Present deferred Extremities: Absent edema Comment:: Dressing in place on the left lower leg. Skin: Present intact (Apart from the leg the skin is intact.) Neuro: Present alert, oriented x 3 (Disorientation is not obvious on my brief exam this morning.) and moves all extremities Assessment and Plan *Assessment and plan (1) Vomiting: Status: Acute Category: Medical Code(s): R11.10 - Vomiting, unspecified (2) Leukocytosis: Status: Acute Category: Medical Code(s): D72.829 - Elevated white blood cell count, unspecified (3) Acute hypokalemia: Status: Resolved Category: Medical Code(s): E87.6 - Hypokalemia (4) Hypomagnesemia: Status: Acute Category: Medical Code(s): E83.42 - Hypomagnesemia (5) Hypothyroidism: Status: Chronic Qualifiers: Hypothyroidism type: postoperative Qualified Code(s): E89.0 - Postprocedural hypothyroidism Category: Medical Code(s): E03.9 - Hypothyroidism, unspecified (6) Rheumatoid arthritis: Status: Acute Category: Medical Code(s): M06.9 - Rheumatoid arthritis, unspecified (7) CAD (coronary artery disease): Status: Acute Category: Medical Code(s): I25.10 - Atherosclerotic heart disease of [place] coronary artery without angina pectoris (8) Hyponatremia: Status: Acute Category: Medical Code(s): E87.1 - Hypo-osmolality and hyponatremia (9) Chronic hyponatremia: Status: Acute Category: Medical Code(s): E87.1 - Hypo-osmolality and hyponatremia (10) Hypertension: Status: Acute Category: Medical Code(s): I10 - Essential (primary) hypertension (11) Headache: Status: Acute Category: Medical Code(s): R51.9 - Headache, unspecified (12) Dehydration: Status: Acute Category: Medical Code(s): E86.0 - Dehydration Plan Awaiting urine culture. Will discuss further care with Dr. Garcia. Will continue antiemetics as needed. Dr. aGrcia entry - Saw patient, agree with above note. Am labs are still pending. Patient has improved only slightly.
[2025-07-22 08:33] LABS: Chloride 88 mmol/L (98-107); Potassium 3.3 mmoL/L (3.5-5.1); Sodium 124 mmol/L (136-145)
[2025-07-22 08:36] LABS: Anion Gap 10.3 mEq/L (5-15); Calcium 8.5 mg/dl (8.4-10.2); Carbon Dioxide 29 mmol/L (22.0-30.0); Glucose 117 mg/dl (74-100)
--- NOTE | 2025-07-22 08:49 | HMH.PTEV ---
Physical Therapy Evaluation Rehab PT IP Evaluation Start: 07/21/25 11:17 Freq: ONCE Status: Active Protocol: Document 07/22/25 08:38 JEAN (Rec: 07/22/25 08:49 JEAN [id number]) Subjective/History History History Per H&P: Ms. Culp is a 79-year-old female with a history of hyperlipidemia, hypothyroidism/goiter, kidney stones, allergic rhinitis, ASCVD with an AR in 2012, cataracts, hyperuricemia, inflammatory arthritis who presented to [facility] emergency room this a.m. for ongoing severe headache/sinus issues and nausea and vomiting. Patient states the nausea started yesterday. She thinks she has a sinus infection and took multiple Tylenol's for the pain. She states nothing has relieved the discomfort. She started with the nausea and did vomit during the night. She did not eat or drink yesterday and has not taken any medicine. Bowels moved 2 days ago and she did have a bowel movement in the emergency room. She has seen no blood or black stools. She does deny diarrhea. She has had some postnasal drainage and a cough. Her states that she could hardly walk this morning; she was so weak. Thus they brought her to the emergency room. Subjective Subjective Pt reports she lives with her in a house with a bunch of stairs . Pt reports several BEBA home. Pt reports she normally uses a rollator for IND ambulation. Pt interested in rehab services. [facility] How much help from another person do you currently need... Turning from your A little back to your side while in a flat bed without using bedrails? Moving from lying on A little back to sitting on the side of a flat bed without using bedrails? Moving to and from a A little bed to a chair ( including a wheelchair)? Standing up from a A little chair using your arms? (e.g., wheelchair, bedside chair) Walking in hospital A lot room? Climbing 3-5 steps A lot with a railing? Mobility Score 16 Mobility Level [facility] Mobility 5 Stand (1 or more minutes) Mobility Calculator Rehab PT IP Eval Objective Appearance Patient Behavior Appropriate,Cooperative Patient Orientation Person Difficulty following none instructions Speech Pattern Clear Ambulation Patient Able to Yes Ambulate Ambulation Observation IP General Gait Wide Based Gait Pattern Observation Ambulation Distance 25 (feet) Ambulation Assistive Rolling Walker Device Ambulation Ability Minimal x 2 (25% assist) Balance Ability to Arise Able, uses arms to help Sitting Balance Steady, safe Standing Balance Unsteady Dynamic Sitting Fair Balance Ability Transfers Bed Transfer Ability Moderate x 1 (50% assist) Sit to Stand Bed Minimal x 1 (25% assist) Transfer Ability Rehab PT IP prob,goals,plan Problems Date of Evaluation: 07/22/25 PT IP Problems Bed Mobility,Transfers,Gait,Balance,Self care,Safety Rehab Potential Rehab Potential Good Plan PT Intervention Plan Bed Mobility,Transfers,Gait,Balance,Self care,Safety, Therapeutic Exercise Other Intervention 1-2 times Plan PT Plan Frequency Daily Duration LOS Discharge Goals Bed Transfer Ability Minimal x 1 (25% assist) Sit to Stand Chair Supervision/Stand by Transfer Ability Ambulation Assistive Rolling Walker Device Ambulation Distance 40 (feet) Discharge Plan PT Discharge Plan Pt presents below baseline in functional mobility and strength. Pt required min-mod A for ambulation task with rollator. Pt demo'd 2 LOB requiring mod A to correct. Pt not appropriate to d/c home at this time d/ t current level of mobility and high fall risk. PT recommending short-term rehabilitation upon d/c from [facility] to address deficits, maximize safety, and decrease caregiver burden. Eval Complexity Eval Charge Codes 10455 - Moderate Complexity PHYSICIAN CERTIFICATION: I certify the specified therapy services for Andry Culp are required, authorized, and reviewed every 30 days.
[2025-07-22] MEDS: CARVEDILOL 12.5MG TABLET 12.5 MG PO ×2 (09:10→20:09)
[2025-07-22] MEDS: ONDANSETRON 4MG/2ML VIAL 4 MG IV (09:10)
[2025-07-22 09:15] LABS: Blood Urea Nitrogen 6 mg/dl (7-17); Creatinine Clearance Estimated 48 mL/min (50-200); Creatinine,Serum 0.80 mg/dl (0.52-1.04); Estimated Glomerular Filt Rate 69 ml/min (>60); GFR (African American) 84 ML/MIN (>60)
[2025-07-22] MEDS: SODIUM CHLORIDE 0.9% 25ML BAG 25 ML IV (09:40)
[2025-07-22] MEDS: PROMETHAZINE HCL 25MG/ML 1ML VIAL 12.5 MG IV (09:40)
[2025-07-22] MEDS: D5W/0.9% NaCl w/40mEq KCL 1,000 ML 100 ML IV (09:43)
--- NOTE | 2025-07-22 18:00 | PC.NURSE ---
PT IS SITTING UP IN THE CHAIR. ALERT AND ORIENTED X3. APPETITE HAS BEEN POOR THIS SHIFT. PT REQUESTED TO EAT AT DINNER. HOSPITALIST NOTIFIED. DIET WAS ADVANCED TO REGULAR HOWEVER PT WAS ONLY ABLE TO EAT 1 CHICKEN STRIP. LUNG SOUNDS CLEAR. ABDOMEN SOFT/NON TENDER WITH ACTIVE BOWEL SOUNDS. LOW GRADE FEVER THIS SHIFT. SCATTERED BRUISING NOTED TO BLE. SKIN TEAR NOTED TO LEFT GUZMÁN. 2 ASSIST TO GET OOB TO BSC. PT HAD TO BE ENCOURAGED TO SIT UP IN THE CHAIR. WILL CONTINUE TO MONITOR.
[2025-07-22] MEDS: ACETAMINOPHEN 325MG TAB 650 MG PO (20:06)
[2025-07-22] MEDS: FAMOTIDINE 20MG TABLET 20 MG PO (20:09)
[2025-07-23] VITALS: BP 118/74; PULSE 60; PULSE 64; RESP 14; TEMP 36.8; O2SAT 93
[2025-07-23 04:00] VITALS: BP 133/77; PULSE 69; PULSE 70; RESP 16; TEMP 36.5; O2SAT 97; BMI 24.5
--- NOTE | 2025-07-23 05:37 | PC.NURSE ---
Pt is Alert and oriented X4, she is on her 2nd bag of D5.45 NS with 40 of KCL at 100 ML/hour. She is on Room Air. Pt had a new Iv placed tonight it was a 20 in the left forearm. Pt had a headache at the beginning of the shift. gave Tylenol per DEC. Pt is a one assist to the BR. LESLY TAO RN
[2025-07-23 06:02] LABS: Hematocrit 31.1 % (37.0-47.0); Hemoglobin 10.8 g/dL (12.2-16.2); Immature Granulocytes % 1.3 %; Mean Corpuscular HGB Conc 34.7 g/dL (31.8-35.4); Mean Corpuscular Hemoglobin 33.3 pg (27.0-31.2); Mean Corpuscular Volume 96.0 fl (81-99); Nucleated Red Blood Cells % 0 %; Platelet Count 195 K/mm3 (142-424); Red Blood Count 3.24 M/mm3 (4.20-5.40); Red Cell Distribution Width-SD 45.1 fL; White Blood Count 5.5 K/mm3 (4.8-10.8)
[2025-07-23] MEDS: D5W/0.9% NaCl w/40mEq KCL 1,000 ML 100 ML IV (06:08)
[2025-07-23 06:10] LABS: Anion Gap 10.2 mEq/L (5-15); Blood Urea Nitrogen 5 mg/dl (7-17); Calcium 8.0 mg/dl (8.4-10.2); Carbon Dioxide 24 mmol/L (22.0-30.0); Chloride 92 mmol/L (98-107); Creatinine Clearance Estimated 49 mL/min (50-200); Creatinine,Serum 0.80 mg/dl (0.52-1.04); Estimated Glomerular Filt Rate 69 ml/min (>60); GFR (African American) 84 ML/MIN (>60); Glucose 114 mg/dl (74-100); Potassium 3.2 mmoL/L (3.5-5.1); Sodium 123 mmol/L (136-145)
[2025-07-23] MEDS: LEVOTHYROXINE 112MCG (0.112MG) TAB 112 MCG PO (06:32)
[2025-07-23 08:00] VITALS: BP 134/75; PULSE 74; PULSE 80; RESP 18; TEMP 36.8; O2SAT 96
--- NOTE | 2025-07-23 08:30 | P.PN_ITS ---
Subjective *Date: 07/23/25 *Time: 09:05 Interval history: Patient states she is less nauseated this morning. She was able to tolerate a small amount of breakfast. She denies any pain but continues to feel weak. Medical Exam Vital signs and Labs for Last 24 Hours: Vital Signs Temp Pulse Pulse Resp BP Pulse Ox O2 Del Method 07/23/25 08:00 Room Air 07/23/25 08:00 Room Air 07/23/25 05:00 Room Air 07/23/25 04:00 70 07/23/25 04:00 97.7 F 69 16 133/77 97 Room Air 07/23/25 03:00 Room Air 07/23/25 01:00 Room Air 07/23/25 00:00 60 07/23/25 00:00 98.2 F 64 14 118/74 93 L Room Air 07/22/25 23:00 Room Air 07/22/25 21:00 Room Air 07/22/25 20:00 Room Air 07/22/25 20:00 90 07/22/25 20:00 98.4 F 85 16 135/81 95 Room Air 07/22/25 18:36 Room Air 07/22/25 17:00 Room Air 07/22/25 16:00 99.3 F 87 16 148/78 H 94 L Room Air 07/22/25 16:00 80 07/22/25 15:00 Room Air 07/22/25 12:55 Room Air 07/22/25 12:00 80 07/22/25 11:57 100.1 F H 88 18 143/82 H 93 L Room Air 07/22/25 10:41 Room Air Intake and Output 07/22/25 07/23/25 07/23/25 19:59 03:59 11:59 Intake Total 1120 / 1290 170 / 1290 Output Total 0 / 0 Balance 1120 / 1290 170 / 1290 Intake: Intake, Oral Amount 120 / 240 120 / 240 Intake, Total IV Amount 1000 / 1050 50 / 1050 Ceftriaxone Sodium 1 gm In 0.9 50 / 50 % Sodium Chloride 50 ml @ 100 mls/hr IV Q24H [facility] Rx#:[id number] D5W/0.9% NaCl w/40mEq KCL 1,000 1000 / 1000 ml @ 100 mls/hr IV .Q10H [facility] Rx#:[id number] Output: Output, Urine Amount 0 / 0 Other: Number of Unmeasured Voids 1 Weight 147 lb 9.6 oz Patient Weight 07/23/25 11:59 Weight 147 lb 9.6 oz Laboratory Results - last 24 hr 07/20/25 17:57: Urine Color Yellow, Urine Appearance Clear, Urine pH 7.0, Ur Specific [place] 1.015, Urine Protein 1+ A, Urine Glucose (UA) Negative, Urine Ketones Trace, Urine Blood 1+ A, Urine Nitrate Positive A, Urine Bilirubin Negative, Urine Urobilinogen 0.2, Ur Leukocyte Esterase Negative, Urine RBC 3-5, Urine WBC 3-5, Ur Squamous Epith Cells Occasional, Urine Bacteria 1+ 07/22/25 05:38: Sodium 124 L, Potassium 3.3 L, Chloride 88 L, Carbon Dioxide 29, Anion Gap 10.3, BUN 6 L D, Creatinine 0.80 D, Estimated Creat Clear 48, Estimated GFR 69, Est GFR ( Amer) 84 D, Glucose 117 H, Calcium 8.5 07/23/25 05:28: WBC 5.5, RBC 3.24 L, Hgb 10.8 L, Hct 31.1 L, MCV 96.0, MCH 33.3 H, MCHC 34.7, RDW 12.7, Plt Count 195, MPV 10.0, Neut % (Auto) 58.5, Lymph % (Auto) 17.0, [place] % (Auto) 19.7 H, Eos % (Auto) 2.4, Baso % (Auto) 1.1, Neut # (Auto) 3.2, Lymph # (Auto) 0.9, [place] # (Auto) 1.1 H, Eos # (Auto) 0.1, Baso # (Auto) 0.1, Sodium 123 L, Potassium 3.2 L, Chloride 92 L, Carbon Dioxide 24, Anion Gap 10.2, BUN 5 L, Creatinine 0.80, Estimated Creat Clear 49, Estimated GFR 69, Est GFR ( Amer) 84, Glucose 114 H, Calcium 8.0 L I & O for Labs for Last 24 Hours: Intake & Output 07/20/25 07/21/25 07/22/25 07/23/25 11:59 11:59 11:59 11:59 Intake Total 1350 / 1350 6 / 2066 2250 / 2250 1290 / 1290 Output Total 600 / 600 300 / 300 0 / 0 Balance 1350 / 1350 1466 / 1466 1950 / 1949 1290 / 1290 Weight 140 lb 8 oz 138 lb 14.4 oz 144 lb 4.801 oz 147 lb 9.6 oz Microbiology Reports for the Last 24 Hours: Microbiology 07/20/25 17:57 Urine,Clean Catch Urine Culture - Final Morganella morganii 07/20/25 21:29 Blood Blood Culture - Preliminary NO GROWTH AFTER 48 HOURS 07/20/25 21:29 Blood Blood Culture - Preliminary NO GROWTH AFTER 48 HOURS Constitutional: Present no acute distress Head: Present normocephalic Neck: Present normal inspection Respiratory: Present decreased breath sounds and CTA bilaterally Cardiac: Present Reg Rate and Rhythm GI: Present soft; Absent tenderness Extremities: Absent edema Skin: Present intact (Apart from the leg the skin is intact.) Neuro: Present alert, oriented x 3 (Disorientation is not obvious on my brief exam this morning.) and moves all extremities Assessment and Plan *Assessment and plan (1) UTI (urinary tract infection): Status: Resolved Qualifiers: Hematuria presence: without hematuria Urinary tract infection type: acute cystitis Qualified Code(s): N30.00 - Acute cystitis without hematuria Category: Medical Code(s): N39.0 - Urinary tract infection, site not specified (2) Vomiting: Status: Acute Category: Medical Code(s): R11.10 - Vomiting, unspecified (3) Leukocytosis: Status: Acute Category: Medical Code(s): D72.829 - Elevated white blood cell count, unspecified (4) Acute hypokalemia: Status: Resolved Category: Medical Code(s): E87.6 - Hypokalemia (5) Hypomagnesemia: Status: Acute Category: Medical Code(s): E83.42 - Hypomagnesemia (6) Hypothyroidism: Status: Chronic Qualifiers: Hypothyroidism type: postoperative Qualified Code(s): E89.0 - Postprocedural hypothyroidism Category: Medical Code(s): E03.9 - Hypothyroidism, unspecified (7) Rheumatoid arthritis: Status: Acute Category: Medical Code(s): M06.9 - Rheumatoid arthritis, unspecified (8) CAD (coronary artery disease): Status: Acute Category: Medical Code(s): I25.10 - Atherosclerotic heart disease of [place] coronary artery without angina pectoris (9) Hyponatremia: Status: Acute Category: Medical Code(s): E87.1 - Hypo-osmolality and hyponatremia (10) Chronic hyponatremia: Status: Acute Category: Medical Code(s): E87.1 - Hypo-osmolality and hyponatremia (11) Hypertension: Status: Acute Category: Medical Code(s): I10 - Essential (primary) hypertension (12) Headache: Status: Acute Category: Medical Code(s): R51.9 - Headache, unspecified (13) Dehydration: Status: Acute Category: Medical Code(s): E86.0 - Dehydration Plan Her urine is growing Morganella morganii which is sensitive to Rocephin. Blood cultures show no growth. Will discuss disposition with Dr. Garcia. Dr. Garcia entry - Saw patient, agree with above note. Patient has improved, change BP meds today, OOB to chair.
--- NOTE | 2025-07-23 08:31 | P.PN_ITS ---
Subjective *Date: 07/23/25 *Time: 08:31 Medical Exam Vital signs and Labs for Last 24 Hours: Vital Signs Temp Pulse Pulse Resp BP Pulse Ox O2 Del Method 07/23/25 08:00 Room Air 07/23/25 08:00 Room Air 07/23/25 05:00 Room Air 07/23/25 04:00 70 07/23/25 04:00 97.7 F 69 16 133/77 97 Room Air 07/23/25 03:00 Room Air 07/23/25 01:00 Room Air 07/23/25 00:00 60 07/23/25 00:00 98.2 F 64 14 118/74 93 L Room Air 07/22/25 23:00 Room Air 07/22/25 21:00 Room Air 07/22/25 20:00 Room Air 07/22/25 20:00 90 07/22/25 20:00 98.4 F 85 16 135/81 95 Room Air 07/22/25 18:36 Room Air 07/22/25 17:00 Room Air 07/22/25 16:00 99.3 F 87 16 148/78 H 94 L Room Air 07/22/25 16:00 80 07/22/25 15:00 Room Air 07/22/25 12:55 Room Air 07/22/25 12:00 80 07/22/25 11:57 100.1 F H 88 18 143/82 H 93 L Room Air 07/22/25 10:41 Room Air Intake and Output 07/22/25 07/23/25 07/23/25 23:59 07:59 15:59 Intake Total 1000 / 1485 170 / 170 Output Total 0 / 300 Balance 1000 / 1185 170 / 170 Intake: Intake, Oral Amount 0 / 240 120 / 120 Intake, Total IV Amount 1000 / 1245 50 / 50 Ceftriaxone Sodium 1 gm In 0.9 50 / 50 % Sodium Chloride 50 ml @ 100 mls/hr IV Q24H [facility] Rx#:[id number] D5W/0.9% NaCl w/40mEq KCL 1,000 1000 / 1000 ml @ 100 mls/hr IV .Q10H [facility] Rx#:[id number] Output: Output, Urine Amount 0 / 300 Other: Number of Unmeasured Voids 1 Weight 66.95 kg Patient Weight 07/23/25 23:59 Weight 66.95 kg Laboratory Results - last 24 hr 07/20/25 17:57: Urine Color Yellow, Urine Appearance Clear, Urine pH 7.0, Ur Specific [place] 1.015, Urine Protein 1+ A, Urine Glucose (UA) Negative, Urine Ketones Trace, Urine Blood 1+ A, Urine Nitrate Positive A, Urine Bilirubin Negative, Urine Urobilinogen 0.2, Ur Leukocyte Esterase Negative, Urine RBC 3-5, Urine WBC 3-5, Ur Squamous Epith Cells Occasional, Urine Bacteria 1+ 07/22/25 05:38: Sodium 124 L, Potassium 3.3 L, Chloride 88 L, Carbon Dioxide 29, Anion Gap 10.3, BUN 6 L D, Creatinine 0.80 D, Estimated Creat Clear 48, Estimated GFR 69, Est GFR ( Amer) 84 D, Glucose 117 H, Calcium 8.5 07/23/25 05:28: WBC 5.5, RBC 3.24 L, Hgb 10.8 L, Hct 31.1 L, MCV 96.0, MCH 33.3 H, MCHC 34.7, RDW 12.7, Plt Count 195, MPV 10.0, Neut % (Auto) 58.5, Lymph % (Auto) 17.0, [place] % (Auto) 19.7 H, Eos % (Auto) 2.4, Baso % (Auto) 1.1, Neut # (Auto) 3.2, Lymph # (Auto) 0.9, [place] # (Auto) 1.1 H, Eos # (Auto) 0.1, Baso # (Auto) 0.1, Sodium 123 L, Potassium 3.2 L, Chloride 92 L, Carbon Dioxide 24, Anion Gap 10.2, BUN 5 L, Creatinine 0.80, Estimated Creat Clear 49, Estimated GFR 69, Est GFR ( Amer) 84, Glucose 114 H, Calcium 8.0 L I & O for Labs for Last 24 Hours: Intake & Output 07/20/25 07/21/25 07/22/25 07/23/25 23:59 23:59 23:59 23:59 Intake Total 2150 / 0 3271 / 3271 1365 / 1485 170 / 170 Output Total 600 / 600 300 / 300 Balance 2150 / 1820 2671 / 2671 1065 / 1185 170 / 170 Weight 63.73 kg 63.004 kg 65.453 kg 66.95 kg Microbiology Reports for the Last 24 Hours: Microbiology 07/20/25 17:57 Urine,Clean Catch Urine Culture - Final Morganella morganii 07/20/25 21:29 Blood Blood Culture - Preliminary NO GROWTH AFTER 48 HOURS 07/20/25 21:29 Blood Blood Culture - Preliminary NO GROWTH AFTER 48 HOURS The patient's infection will respond to the chosen ABx?: Yes Is the patient receiving the right drug, dose, and route?: Yes Could a more targeted ABx be ordered?: No (WBC WNL, 15.6K TO 5.6K, AFEBRILE. CONTINUE CURRENT.)
[2025-07-23] MEDS: SPIRONOLACTONE 25MG TABLET 25 MG PO (09:51)
[2025-07-23] MEDS: CARVEDILOL 12.5MG TABLET 12.5 MG PO ×2 (09:51→20:18)
--- NOTE | 2025-07-23 11:42 | HMH.PHAAMS2 ---
- Antimicrobial Stewardship Review culture & sensitivity review Stewardship interventions: culture & sensitivity review (MORGANELLA SENSITIVE TO CEFTRIAXONE), reviewed - no change
--- NOTE | 2025-07-23 11:44 | HMH.PHAAMS2 ---
- Antimicrobial Stewardship Review de-escalation/chg therapy Stewardship interventions: de-escalation/chg therapy, reviewed - no change Comments: morganella urine culture sensitive to ceftriaxone, cont therapy
[2025-07-23 12:00] VITALS: BP 135/85; PULSE 70; RESP 18; O2SAT 96
[2025-07-23] MEDS: POTASSIUM CHLORIDE 20MEQ TAB 20 MEQ PO ×3 (13:14→20:18)
[2025-07-23 15:11] VITALS: BMI 24.5
[2025-07-23 16:00] VITALS: BP 134/74; PULSE 70; PULSE 75; RESP 18; TEMP 36.8; O2SAT 98
--- NOTE | 2025-07-23 16:23 | PC.NURSE ---
pt states she is feeling better, stayed up in chair for meals during my shift and got up with physical therapy, patient still has kerlix wrapped around skin tear area on left miller, spoke with MD regarding patient's low K+, new orders to replace K+ received. has remained at bedside throughout this shift.
[2025-07-23 20:00] VITALS: BP 152/94; PULSE 77; PULSE 80; RESP 16; TEMP 36.9; O2SAT 96
[2025-07-23] MEDS: FAMOTIDINE 20MG TABLET 20 MG PO (20:18)
--- NOTE | 2025-07-23 21:25 | PC.NURSE ---
patient requested Benadryl for sleep
--- NOTE | 2025-07-23 22:23 | PC.WOUNDNOTE ---
open area on coccyx
[2025-07-24] VITALS: BP 147/85; PULSE 77; PULSE 80; RESP 16; TEMP 36.6; O2SAT 96
[2025-07-24 04:00] VITALS: BP 154/93; PULSE 79; PULSE 80; RESP 16; TEMP 36.8; O2SAT 95; BMI 24.0
[2025-07-24 06:00] LABS: Hematocrit 32.5 % (37.0-47.0); Hemoglobin 11.2 g/dL (12.2-16.2); Immature Granulocytes % 1.2 %; Mean Corpuscular HGB Conc 34.5 g/dL (31.8-35.4); Mean Corpuscular Hemoglobin 32.7 pg (27.0-31.2); Mean Corpuscular Volume 95.0 fl (81-99); Nucleated Red Blood Cells % 0 %; Platelet Count 217 K/mm3 (142-424); Red Blood Count 3.42 M/mm3 (4.20-5.40); Red Cell Distribution Width-SD 44.9 fL; White Blood Count 7.5 K/mm3 (4.8-10.8)
[2025-07-24] MEDS: LEVOTHYROXINE 112MCG (0.112MG) TAB 112 MCG PO (06:02)
--- NOTE | 2025-07-24 06:07 | PC.NURSE ---
patient was noted to have an open area to coccyx - patient refuses to use the wedge or other assisting devices for turning/prevention and state get those things the hell out of here when the tech attempted interventions. patient has been educated on importance but A&OX4 and very mentally independent.
[2025-07-24 06:13] LABS: Chloride 91 mmol/L (98-107); Potassium 3.6 mmoL/L (3.5-5.1); Sodium 122 mmol/L (136-145)
[2025-07-24 06:16] LABS: Anion Gap 11.6 mEq/L (5-15); Blood Urea Nitrogen 6 mg/dl (7-17); Calcium 8.9 mg/dl (8.4-10.2); Carbon Dioxide 23 mmol/L (22.0-30.0); Creatinine Clearance Estimated 48 mL/min (50-200); Creatinine,Serum 0.70 mg/dl (0.52-1.04); Estimated Glomerular Filt Rate 81 ml/min (>60); GFR (African American) 98 ML/MIN (>60); Glucose 95 mg/dl (74-100)
[2025-07-24 08:00] VITALS: BP 156/98; PULSE 100; PULSE 110; RESP 16; TEMP 36.6; O2SAT 95
--- NOTE | 2025-07-24 08:12 | P.PN_ITS ---
Subjective *Date: 07/24/25 *Time: 08:51 Interval history: Patient is feeling better. She is not sleeping but is eating. She was able to walk 75 feet this am and is able to get to the bathroom using her walking. Medical Exam Vital signs and Labs for Last 24 Hours: Vital Signs Temp Pulse Pulse Resp BP Pulse Ox O2 Del Method 07/24/25 06:32 Room Air 07/24/25 05:00 Room Air 07/24/25 04:00 80 07/24/25 04:00 98.3 F 79 16 154/93 H 95 Room Air 07/24/25 03:00 Room Air 07/24/25 01:00 Room Air 07/24/25 00:00 80 07/24/25 00:00 97.9 F 77 16 147/85 H 96 Room Air 07/23/25 23:00 Room Air 07/23/25 21:00 Room Air 07/23/25 20:00 80 07/23/25 20:00 98.4 F 77 16 152/94 H 96 Room Air 07/23/25 20:00 Room Air 07/23/25 18:32 Room Air 07/23/25 16:02 Room Air 07/23/25 16:00 70 07/23/25 16:00 98.3 F 75 18 134/74 98 Room Air 07/23/25 15:00 Room Air 07/23/25 13:00 Room Air 07/23/25 12:00 70 07/23/25 12:00 70 18 135/85 96 Room Air 07/23/25 10:19 Room Air Intake and Output 07/23/25 07/24/25 07/24/25 19:59 03:59 11:59 Intake Total 1120 / 1530 410 / 1530 Output Total 0 / 200 200 / 200 Balance 1120 / 1330 410 / 1330 -200 / 1330 Intake: Intake, Oral Amount 120 / 480 360 / 480 Intake, Total IV Amount 1000 / 1050 50 / 1050 Ceftriaxone Sodium 1 gm In 0.9 50 / 50 % Sodium Chloride 50 ml @ 100 mls/hr IV Q24H [facility] Rx#:[id number] D5W/0.9% NaCl w/40mEq KCL 1,000 1000 / 1000 ml @ 100 mls/hr IV .Q10H [facility] Rx#:[id number] Output: Output, Urine Amount 0 / 200 200 / 200 Other: Number of Unmeasured Voids 1 1 Number of Bowel Movements 1 2 Weight 147 lb 9.6 oz 144 lb 4.8 oz Patient Weight 07/24/25 11:59 Weight 144 lb 4.8 oz Laboratory Results - last 24 hr 07/24/25 05:26: WBC 7.5 D, RBC 3.42 L, Hgb 11.2 L, Hct 32.5 L, MCV 95.0, MCH 32.7 H, MCHC 34.5, RDW 12.8, Plt Count 217, MPV 9.8, Neut % (Auto) 63.5, Lymph % (Auto) 17.2, [place] % (Auto) 15.3 H, Eos % (Auto) 1.9, Baso % (Auto) 0.9, Neut # (Auto) 4.7, Lymph # (Auto) 1.3, [place] # (Auto) 1.1 H, Eos # (Auto) 0.1, Baso # (Auto) 0.1, Sodium 122 L, Potassium 3.6, Chloride 91 L, Carbon Dioxide 23, Anion Gap 11.6, BUN 6 L, Creatinine 0.70, Estimated Creat Clear 48, Estimated GFR 81, Est GFR ( Amer) 98, Glucose 95, Calcium 8.9 I & O for Labs for Last 24 Hours: Intake & Output 07/21/25 07/22/25 07/23/25 07/24/25 11:59 11:59 11:59 11:59 Intake Total 2066 / 2066 2250 / 2250 1430 / 1430 1530 / 1530 Output Total 600 / 600 300 / 300 0 / 0 200 / 200 Balance 1466 / 1466 1950 / 1950 1430 / 1430 1330 / 1330 Weight 138 lb 14.4 oz 144 lb 4.801 oz 147 lb 9.6 oz 144 lb 4.8 oz Microbiology Reports for the Last 24 Hours: Microbiology 07/20/25 17:57 Urine,Clean Catch Urine Culture - Final Morganella morganii Constitutional: Present no acute distress Head: Present normocephalic Neck: Present normal inspection Respiratory: Present decreased breath sounds and CTA bilaterally Cardiac: Present Reg Rate and Rhythm GI: Present soft; Absent tenderness Extremities: Absent edema Skin: Present intact (Apart from the leg the skin is intact.) Neuro: Present alert, oriented x 3 (Disorientation is not obvious on my brief exam this morning.) and moves all extremities Assessment and Plan *Assessment and plan (1) UTI (urinary tract infection): Status: Resolved Qualifiers: Hematuria presence: without hematuria Urinary tract infection type: acute cystitis Qualified Code(s): N30.00 - Acute cystitis without hematuria Category: Medical Code(s): N39.0 - Urinary tract infection, site not specified (2) Vomiting: Status: Acute Category: Medical Code(s): R11.10 - Vomiting, unspecified (3) Leukocytosis: Status: Acute Category: Medical Code(s): D72.829 - Elevated white blood cell count, unspecified (4) Acute hypokalemia: Status: Resolved Category: Medical Code(s): E87.6 - Hypokalemia (5) Hypomagnesemia: Status: Acute Category: Medical Code(s): E83.42 - Hypomagnesemia (6) Hypothyroidism: Status: Chronic Qualifiers: Hypothyroidism type: postoperative Qualified Code(s): E89.0 - Postprocedural hypothyroidism Category: Medical Code(s): E03.9 - Hypothyroidism, unspecified (7) Rheumatoid arthritis: Status: Acute Category: Medical Code(s): M06.9 - Rheumatoid arthritis, unspecified (8) CAD (coronary artery disease): Status: Acute Category: Medical Code(s): I25.10 - Atherosclerotic heart disease of [place] coronary artery without angina pectoris (9) Hyponatremia: Status: Acute Category: Medical Code(s): E87.1 - Hypo-osmolality and hyponatremia (10) Chronic hyponatremia: Status: Acute Category: Medical Code(s): E87.1 - Hypo-osmolality and hyponatremia (11) Hypertension: Status: Acute Category: Medical Code(s): I10 - Essential (primary) hypertension (12) Headache: Status: Acute Category: Medical Code(s): R51.9 - Headache, unspecified (13) Dehydration: Status: Acute Category: Medical Code(s): E86.0 - Dehydration Plan Will continue abx and discuss disposition with Dr. Garcia. Dr. Garcia entry - Saw patient, agree with above note. She has definitely improved. Had a long discussion with patient, her , care management and nursing about discharge plans. Patient would like to go home and have physical therapy a couple of times per week at the [facility] in [place]. Patient may be able to discharge later today.
--- NOTE | 2025-07-24 08:51 | PC.NURSE ---
Seizure pads were placed for precaution due to sodium being [address] Garcia stated seizure pads could be removed.
[2025-07-24] MEDS: CARVEDILOL 12.5MG TABLET 12.5 MG PO (09:04)
[2025-07-24] MEDS: SPIRONOLACTONE 25MG TABLET 25 MG PO (09:04)
[2025-07-24] MEDS: POTASSIUM CHLORIDE 20MEQ TAB 20 MEQ PO ×2 (09:05→12:34)
--- NOTE | 2025-07-24 10:43 | PC.NURSE ---
pt ambulated in the hallway with rollator walker and stand-by assistance from staff. pt tolerated well. pt sitting up in the chair at this time
[2025-07-24 12:00] VITALS: BP 141/90; PULSE 71; RESP 18; TEMP 36.6; O2SAT 97
--- NOTE | 2025-07-24 14:44 | PC.NURSE ---
Patient has been offered Q2 turns and repositioning by this RN and the tech this shift. Pt has refused to be turned all shift. Pt educated on importance of turning and repositioning.
--- NOTE | 2025-07-24 17:28 | EXP.DC.SUM ---
General Admission date:: 07/22/25 Discharge date: 07/24/25 HPI HPI HPI: Ms. Culp is a 79-year-old female with a history of hyperlipidemia, hypothyroidism/goiter, kidney stones, allergic rhinitis, ASCVD with an NE in 2013, cataracts, hyperuricemia, inflammatory arthritis who presented to [facility] emergency room this a.m. for ongoing severe headache/sinus issues and nausea and vomiting. Patient states the nausea started yesterday. She thinks she has a sinus infection and took multiple Tylenol's for the pain. She states nothing has relieved the discomfort. She started with the nausea and did vomit during the night. She did not eat or drink yesterday and has not taken any medicine. Bowels moved 2 days ago and she did have a bowel movement in the emergency room. She has seen no blood or black stools. She does deny diarrhea. She has had some postnasal drainage and a cough. Her states that she could hardly walk this morning; she was so weak. Thus they brought her to the emergency room. Workup in the emergency room revealed white blood cell count of 15,600 with a hemoglobin of 13.1 hematocrit of 37.5. Electrolytes revealed a low potassium at 2.5; she did receive a total of 30 meq of IV potassium. Glucose was 109. Troponin I's have been negative x 2. In the emergency room she also received 2 g of mag sulfate IV and a liter of normal saline IV; she received ketorolac 15 mg IV once and 4 mg of Zofran. Chest CTA revealed no pulmonary embolism or dissection. Possible mild edema or pneumonitis bilaterally; abdomen/pelvis CT revealed no acute intraabdominal process. EKGs showed sinus rhythm with first-degree AV block at a rate of 79/min. D-dimer was elevated at 1.03 with a negative CTA of the chest. Sodium low at 119 but she has a history of hyponatremia with her normal at 120. Creatinine was normal. Magnesium borderline at 1.7. Liver function studies normal. Lipase normal. Negative Tylenol and salicylates. VBG revealed mild metabolic alkalosis with normal lactate. Patient did ultimately have a large bowel movement while voiding in the emergency room. She was admitted for further evaluation and treatment. With this exam/visit patient remains nauseated and is chilling. She has not vomited. She feels miserable and continues to complain of a severe headache. Hospital Course Hospital Course Hospital Course: The patient was started on IV fluids with potassium as well as antiemetics and antibiotics. Her urinalysis did show positive nitrates with protein and blood. Her chest x-ray revealed no acute cardiopulmonary abnormalities. She was continued on IV Rocephin and IV fluids. Her electrolytes improved. She was receiving Zofran and Phenergan for nausea. She did begin feeling less nauseated and was able to tolerate a small amount of breakfast. Her urine culture was positive for Morganella morganii which was sensitive to Rocephin. Her blood cultures showed no growth. She was able to work with therapy and walk 75 feet with her walker. It was felt she was stable to be discharged home with outpatient physical therapy. She will follow-up with Dr. Torres in 1 week. Exam Data for Last 24 hours Vital signs and Labs for Last 24 Hours: Temp Pulse Resp BP Pulse Ox O2 Del Method 97.9 F 71 18 141/90 H 97 Room Air 07/24/25 12:00 07/24/25 12:00 07/24/25 12:00 07/24/25 12:00 07/24/25 12:00 07/24/25 15:00 Laboratory Results - last 24 hr 07/24/25 05:26: WBC 7.5 D, RBC 3.42 L, Hgb 11.2 L, Hct 32.5 L, MCV 95.0, MCH 32.7 H, MCHC 34.5, RDW 12.8, Plt Count 217, MPV 9.8, Neut % (Auto) 63.5, Lymph % (Auto) 17.2, Lassen % (Auto) 15.3 H, Eos % (Auto) 1.9, Baso % (Auto) 0.9, Neut # (Auto) 4.7, Lymph # (Auto) 1.3, Lassen # (Auto) 1.1 H, Eos # (Auto) 0.1, Baso # (Auto) 0.1, Sodium 122 L, Potassium 3.6, Chloride 91 L, Carbon Dioxide 23, Anion Gap 11.6, BUN 6 L, Creatinine 0.70, Estimated Creat Clear 48, Estimated GFR 81, Est GFR ( Amer) 98, Glucose 95, Calcium 8.9 I & O for Last 24 hours: Intake & Output 07/22/25 07/23/25 07/24/25 07/25/25 11:59 11:59 11:59 11:59 Intake Total 2250 / 2250 1430 / 1430 1750 / 1750 240 / 240 Output Total 300 / 300 0 / 0 200 / 200 Balance 1950 / 1950 1430 / 1430 1550 / 1550 240 / 240 Weight 144 lb 4.801 oz 147 lb 9.6 oz 144 lb 4.8 oz Narrative: Constitutional Constitutional: no acute distress *Routine HEENT Exam Head: Present normocephalic and atraumatic Eye: Present PERRL; Absent conjunctival icterus, scleral injection or conjunctivae pink ENT: Present mucous membranes dry and oropharynx clear *Routine Neck Exam Neck: Present supple; Absent carotid bruit, lymphadenopathy or thyromegaly *Routine Respiratory Exam Respiratory: Present CTA bilaterally (Anteriorly and posteriorly) and normal respiratory effort; Absent decreased breath sounds *Routine Cardiovascular Exam Cardiovascular: Present RRR (Premature beats) *Routine Abdominal Exam Abdominal: Present soft; Absent normoactive bowel sounds (Decreased bowel sounds), tenderness, distended, rebound or organomegaly *Routine Rectal Exam Rectal:: deferred *Routine Genitalia Exam Genitalia:: deferred *Routine Extremities Exam Extremities: Present pulses intact; Absent edema or calf tenderness *Routine Neurological Exam Neurological: Present alert and oriented X3 (Answers all questions appropriately) Results Data Completed and Pending Labs on day of discharge: Labs from last 24 hours 07/24/25 05:26 WBC 7.5 D RBC 3.42 L Hgb 11.2 L Hct 32.5 L MCV 95.0 MCH 32.7 H MCHC 34.5 RDW 12.8 Plt Count 217 MPV 9.8 Neut % (Auto) 63.5 Lymph % (Auto) 17.2 Lassen % (Auto) 15.3 H Eos % (Auto) 1.9 Baso % (Auto) 0.9 Neut # (Auto) 4.7 Lymph # (Auto) 1.3 Lassen # (Auto) 1.1 H Eos # (Auto) 0.1 Baso # (Auto) 0.1 Sodium 122 L Potassium 3.6 Chloride 91 L Carbon Dioxide 23 Anion Gap 11.6 BUN 6 L Creatinine 0.70 Estimated Creat Clear 48 Estimated GFR 81 Est GFR ( Amer) 98 Glucose 95 Calcium 8.9 Preliminary micro results at discharge 07/20/25 21:29 Blood Culture - Preliminary Blood NO GROWTH AFTER 48 HOURS 07/20/25 21:29 Blood Culture - Preliminary Blood NO GROWTH AFTER 48 HOURS DS: Diagnosis Discharge Diagnosis (1) UTI (urinary tract infection): Status: Resolved Code(s): N39.0 - Urinary tract infection, site not specified Qualifiers: Hematuria presence: without hematuria Urinary tract infection type: acute cystitis Qualified Code(s): N30.00 - Acute cystitis without hematuria (2) Vomiting: Status: Acute Code(s): R11.10 - Vomiting, unspecified (3) Leukocytosis: Status: Acute Code(s): D72.829 - Elevated white blood cell count, unspecified (4) Acute hypokalemia: Status: Resolved Code(s): E87.6 - Hypokalemia (5) Hypomagnesemia: Status: Acute Code(s): E83.42 - Hypomagnesemia (6) Hypothyroidism: Status: Chronic Code(s): E03.9 - Hypothyroidism, unspecified Qualifiers: Hypothyroidism type: postoperative Qualified Code(s): E89.0 - Postprocedural hypothyroidism (7) Rheumatoid arthritis: Status: Acute Code(s): M06.9 - Rheumatoid arthritis, unspecified (8) CAD (coronary artery disease): Status: Acute Code(s): I25.10 - Atherosclerotic heart disease of [place] coronary artery without angina pectoris (9) Hyponatremia: Status: Acute Code(s): E87.1 - Hypo-osmolality and hyponatremia (10) Chronic hyponatremia: Status: Acute Code(s): E87.1 - Hypo-osmolality and hyponatremia (11) Hypertension: Status: Acute Code(s): I10 - Essential (primary) hypertension (12) Headache: Status: Acute Code(s): R51.9 - Headache, unspecified (13) Dehydration: Status: Acute Code(s): E86.0 - Dehydration Meds Home Medications and Allergies Home Medications ?Medication ?Instructions ?Recorded ?Confirmed ?Type levothyroxine 112 mcg tablet 112 mcg PO DAILYDM 04/24/18 07/20/25 History hydroxychloroquine 200 mg tablet 200 mg PO DAILY 05/11/22 07/20/25 History acetaminophen 500 mg tablet 500 mg PO Q6HP PRN Mild Pain 07/15/24 07/20/25 History (Scale Score 1-4) cyclobenzaprine 5 mg tablet 5 mg PO HSP PRN muscle spasms 07/15/24 07/20/25 History melatonin 3 mg tablet 3 mg PO HSP Insomnia 07/15/24 07/20/25 History tramadol 50 mg tablet 50 mg PO Q6HP PRN Moderate Pain 07/15/24 07/20/25 History (Scale Score 5-6) carvedilol 12.5 mg tablet 12.5 mg PO BID 03/12/25 07/20/25 History potassium chloride 10 mEq 10 meq PO BID #60 caps 03/15/25 07/20/25 Rx capsule,extended release pravastatin 40 mg tablet 40 mg PO HS #30 tabs 03/15/25 07/20/25 Rx tamsulosin 0.4 mg capsule 0.4 mg PO HS 07/20/25 07/20/25 History cefdinir 300 mg capsule 300 mg PO Q12H #14 caps 07/24/25 Rx spironolactone 25 mg tablet 25 mg PO DAILY #30 tabs 07/24/25 Rx New Prescriptions to Start Prescriptions: cefdinir Channing Garcia spironolactone Channing Garcia Allergies Allergy/AdvReac Type Severity Reaction Status Date / Time Sulfa (Sulfonamide Allergy Unknown Hives Verified 07/20/25 06:46 Antibiotics) (SULFA (SULFONAMIDE ANTIBIOTICS)) codeine Allergy Vomiting Verified 07/20/25 06:46 Penicillins Allergy Hives Verified 07/20/25 06:46 hydrocodone AdvReac Other Verified 07/20/25 06:46 Discharge Plan Disposition Patient Disposition: Home, Self-Care Condition: Fair Discharge Order Discharge Orders: Discharge Order (Routine); Ordered 07/24/25 Ordered By: Channing Garcia Follow up Plan Follow up with: Wyatt Torres MD [Primary Care Provider, Medical] - 08/04/25 2:30 pm Referral Note: Prescriptions/Medication Reconciliation: New spironolactone 25 mg Tablet 25 mg PO DAILY Qty: 30 0RF cefdinir 300 mg capsule 300 mg PO Q12H Qty: 14 0RF Continued hydroxychloroquine 200 mg tablet 200 mg PO DAILY levothyroxine 112 MCG tablet 112 mcg PO DAILYDM carvedilol 12.5 mg tablet 12.5 mg PO BID potassium chloride 10 mEq Capsule, Extended Release 10 meq PO BID Qty: 60 4RF pravastatin 40 mg Tablet 40 mg PO HS Qty: 30 0RF tamsulosin 0.4 mg capsule 0.4 mg PO HS melatonin 3 mg Tablet 3 mg PO HSP acetaminophen 500 mg Tablet 500 mg PO Q6HP PRN (Reason: Mild Pain (Scale Score 1-4)) tramadol 50 mg Tablet 50 mg PO Q6HP PRN (Reason: Moderate Pain (Scale Score 5-6)) cyclobenzaprine 5 mg Tablet 5 mg PO HSP PRN (Reason: muscle spasms) Discontinued chlorthalidone 25 mg tablet 12.5 mg PO DAILY Problem Reconciliation Problems Reviewed?: Yes Patient Discharge Instructions ACTIVITY: Continue current activity DIET: continue same diet Additional Instructions: PT/OT twice weekly at [facility] clinic in [place] Patient Instructions: High-Calorie, High-Protein Diet, DI for Hypokalemia, DI for Hyponatremia, Hyponatremia in Adults, NCM High-Calorie High-Protein Diet, WM High Calorie High Protein Diet Recipes Print Language: Eritrean Providers Primary Care Provider: Wyatt Torres Admit Provider: Channing Garcia Attending Provider: Channing Garcia
--- NOTE | 2025-07-27 09:53 | SW/DCPLANNER ---
Patient was a re admit. I will follow up when patient is discharged from the hospital. Vahe Davis
== END 2025-07-24 15:49 | disposition home or self-care (01) | DRG 690 ==
LOC: ER 07:56 → 2ND 09:29
PROVIDERS: Emergency Medicine; Internal Medicine Adolescent Medicine; Admitting Provider Family Medicine; Emergency Provider Student in an Organized Health Care Education/Training Program; PCP Family Medicine; Visit Provider Family Medicine
DX: N30.01 Acute cystitis with hematuria (principal); E87.1 Hypo-osmolality and hyponatremia; E87.3 Alkalosis; E83.42 Hypomagnesemia; E87.6 Hypokalemia; E89.0 Postprocedural hypothyroidism; M06.9 Rheumatoid arthritis, unspecified; I25.10 Atherosclerotic heart disease of native coronary artery without angina pectoris; I10 Essential (primary) hypertension; E86.0 Dehydration; I44.0 Atrioventricular block, first degree; I25.2 Old myocardial infarction; B96.4 Proteus (mirabilis) (morganii) as the cause of diseases classified elsewhere; R51.9 Headache, unspecified; Z79.890 Hormone replacement therapy; Z79.899 Other long term (current) drug therapy; Z88.2 Allergy status to sulfonamides; Z88.0 Allergy status to penicillin; Z88.5 Allergy status to narcotic agent; Z88.6 Allergy status to analgesic agent; Z87.891 Personal history of nicotine dependence
CPT/HCPCS: 0223U; 36415; 71045; 71275; 74177; 80048; 80053; 80329; 81001; 82803; 83690; 83735; 84100; 84484; 85007; 85025; 85378; 87040; 87086; 87088; 87186; 93005; 97110; 97116; 97162; 97166; 97530; 99285; G0378; J0696; J1650; J1885; J2405; J2550; J3475; J3480; J7030; Q9967

== ENCOUNTER 2025-07-25 08:10 | Inpatient (IN) | payer MEDICARE, OTHER, SELFPAY ==
--- OUTSIDE RECORDS SUMMARY | 2025-05-26 10:45 | XMS_ITS ---
Author Organization [facility] Address [address] [place] [id number] Care Team Providers Care Unit Clerk Name Role Phone Raul Torres Primary Care [...] Reason For Referral Reason Dr. Lee at [facility] for hyponatremia/ possible adrenal insufficiency Diagnosis 1 Hyponatremia (E87.1) Referral Organization [facility] Referring Provider First Name Raul Lopez Referring Provider Last Name Melissa Referring Provider [facility] ctice Referred Provider Endocrinology, . Referred Provider Specialty Endocrinolog y General Notes Keira Burger 2024 10:04:16 AM > faxed to [facility] Endo Referral Priority Routine Reason memory loss/ confusi on Diagnosis 1 Memory loss (R41.3) Referral Organization [facility] Referring Provider First Name Raul Lopez Referring Provider Last Name Melissa Referring Provider [facility] ctice Referred Provider Radha Ignacio Referred Provider Specialty Neurology General Notes Keira Burger 2024 09:55:39 AM > faxed to [facility] Neurology, Keira Burger 05/29/2025 10:50:10 AM [...] W/U Status Risk Notes Problem Memory loss (19231820) Memory loss (R41.3) Active confirmed Vital Signs Blood pressure systolic 110 mm Hg 05/26/20 25 Blood pressure diastolic 76 mm Hg 025 Heart Rate 72 /min 05/26/2025 Height 65 in 05/26/2025 Weight 146.2 lbs 05/26/2025 BMI 24.33 kg/m2 05/26/2025 Encounters Encounter Location Date Provider Diagnosis [facility] [address] [place] [id number] 05/26/2025 Raul Torres Hyponatremia E87.1 ; Memory loss R41.3 and BMI 24.0-24.9, adult Z68.24 Assessments Encounter Date Diagnosis (ICD Code) Assessment Notes Treatment Notes Treatment Clinical Notes Section Notes 05/26/2025 Hyponatremia (ICD-10 - E87.1) 05/26/2025 Memory loss (ICD-10 - R41.3) 05/26/2025 BMI 24.0-24.9, adult (ICD-10 - Z68.24) Plan Of Treatment Referrals Referral Date Details 05/26/2025 05/26/2025, Dr. Sophie pineda at [facility] for hyponatremia/ possible adrenal insufficiency, . Endocrinology 05/26/2025 05/26/2025, memory l oss/ confusion, Radha Ignacio Next Appt Details Follow Up: after consultatio n, Reason: Provider Name:Raul Corral, 08/04/2025 02:30:00 PM, [address] [facility] 36 [facility], [address], [place], [place], [phone], Progress Notes * ANDRY HUYNHDOB: 7 (79 yo F)Acc No.[id number]:05/26/2025 Progress Notes Patient: ANDRY PANIAGUA Provider: Raul Torres M.D. :1945 A ge:79 Y S ex:Female Date:05/26/2025 Address:[address] [place] [address], [place] [facility], [id number] Subjective: * Chief Complaints: * 1 . [...] Hypertension, Hypothyroidism/goiter, Kidney stones, Allergic rhinitis, ASCVD: [place] - 09/2013-followed by Dr. Arrington q 6 months, Cataracts, Hyperuricemia, Inflammatory arthritis - Dr. Cheng, polymyalgia rheumatica - Dr. Cheng, Moderna Covid vaccine x2 Oct/Nov 2020. * Surgical History: T hyroidectomy/Goiter removal 1999, Back 2001, Total Hysterectomy 1992, Tonsillectomy child, Cardiac Stent Placed-[facility]-Dr Arrington. Dr. Santo 10/19/2013, Cataract 10/2017. * Hospitalization/Major Diagno stic Procedure: k idney stones 1992, Heart Attack- [place] 09/2013, Facial Pain, Sinus Blockage- [facility] ER 04/24/2018, Itching, Swelling in Hands- [facility] ER 10/21/2018, Multiple rib and pelvic fractures; hyponatremia; rheumatoid arthritis; ASCVD- 06/30-, Dehydration, Failure to Thrive, Acute Urinary Retention- [facility] 07/14-, [facility] : fall with multiple FX ribs [...] M yvette loss - R41.3 ?3. B [place] 24.0-24.9, adult - Z68.24 Plan: * Treatment: [...] * Images: Billing Information: * Visit Code: 21789 Office Visit, Est Pt., Level 3. * Procedure Codes: G2211 Complex e/m [place] add on. 1036F TOBACCO NON-USER. G8420 BMI<30 AND >=22 CALC & DOCU. G8783 BP SCR PRFRM RCMDD DEFIND SCR INTVL. G8752 MOST RECENT SYSTOLIC BP < 140MM HG. G8754 MOST RECENT DIASTOLIC BP < 90MM HG. * Electronic signature of Raul Torres MD on 07/25/2025 at 08:40 AM EDT Sign off status: Pending * Provider: Raul Torres M.D. Date: 0 05/26/2025 Generated for Joseloi ng/Falucyg/eTransmitting on: 1 08:40 AM EDT History and Physical Notes * [...] Torres Endocrinology, . Dr. Edy matos at [facility] for hyponatremia/ possible adrenal insufficiency 05/26/2025 Raul Torres Maria memory los s/ confusion
--- OUTSIDE RECORDS SUMMARY | 2025-05-28 04:20 | XMS_ITS ---
Author Organization [facility] Address 1210 [facility] 36 [facility] [address] [place] [phone] Care Team Providers Care Sports Official Name Role Phone Raul Torres Primary Care Provider [phone] Results Component Value Reference Range Notes Urinalysis [...] Status Risk Notes Problem Altered mental status (090558826) Altered mental state (R41.82) Active confirmed Encounters Encounter Location Date Provider Diagnosis [facility] 1210 [facility] 36 [facility] [address] [place] [id number] 05/28/2025 Raul Torres Altered mental state R41.82 Assessments Encounter Date Diagnosis (ICD Code) Assessment Notes Treatment Notes Treatment Clinical Notes Section Notes 05/28/2025 Altered mental state (ICD-10 - R41.82) Plan Of Treatment Next Appt Details Provider Name:Raul Corral, 08/04/2025 02:30:00 PM, 1210 [facility] 36 [facility], [address], [place], [phone], Progress Notes * KWASI HUYNHDOB: 7 (79 yo F)Acc No.[id number]:05/28/2025 Patient: KWASI PANIAGUA Provider: Raul Torres M.D. :1945 A ge:79 Y S ex:Female Date:05/28/2025 Address:[address], [place], [id number] Subjective: * Chief Complaints: * 1 . [...] Information: * Visit Code: * Procedure Codes: 34996 Urinalysis, no micro. * Electronic signature of Raul Torres MD on 07/25/2025 at 08:40 AM EDT Sign off status: Pending * Provider: Raul Torres M.D. Date: 0 05/28/2025 Generated for Jerry panda/Kerwin/Arthur on: 08:40 AM EDT
--- OUTSIDE RECORDS SUMMARY | 2025-06-16 12:30 | XMS_ITS ---
Author Organization [facility] Address [address] [facility] [address] [place] [phone] Care Team Providers Care Hvac Tech Name Role Phone Raul Torres Primary Care [...] Encounter Location Date Provider Diagnosis [facility] [address] [facility] [address] [facility] [address] [place] [phone] 06/16/2025 Raul Torres Rheumatoid arthritis M06.9 ; Leg edema R60.0 and Hyponatremia E87.1 Assessments Encounter Date Diagnosis (ICD Code) Assessment Notes Treatment Notes Treatment Clinical Notes Section Notes 06/16/2025 Rheumatoid arthritis (ICD-10 - M06.9) 06/16/2025 Leg edema (ICD-10 - R60.0) 06/16/2025 Hyponatremia (ICD-10 - E87.1) Plan Of Treatment Next Appt Details Follow Up: 2 Months, Reason: Provider Name:Raul Corral, 08/04/2025 02:30:00 PM, [address] [facility] [address] [facility], [address], [place], [id number], Medications Administered Medication Instructions Date of Administration Dosage Notes Depo- Medrol 40 mg/ml 06/16/2025 1 mL Progress Notes * HAYDEN HUYNH: 7 (79 yo F)Acc No.[id number]:06/16/2025 Progress Notes Patient: ANDRY PANIAGUA Provider: Raul Torres M.D. :1945 A ge:79 Y S ex:Female Date:06/16/2025 Address:[address], [place], [id number] Subjective: * Chief Complaints: * 1 . [...] [facility] 09/2013, Facial Pain, Sinus Blockage- [facility] 04/24/2018, Itching, Swelling in Hands- [facility] ER 10/21/2018, Multiple rib and pelvic fractures; hyponatremia; rheumatoid arthritis; ASCVD- [place] 06/30-, Dehydration, Failure to Thrive, Acute Urinary Retention- [facility] 07/14-, [facility] : fall with multiple FX ribs [...] on, J1010 Inj, methylpred acetate 1 mg, 43172 ADMINISTRATION OF INJECTION * Follow Up: 2 Months * Images: Billing Information: * Visit Code: 53331 Office Visit, Est Pt., Level 3. Modifiers: 25 * Procedure Codes: G2211 Complex e/m visit add on. J1010 Inj, methylpred acetate 1 mg. 72601 ADMINISTRATION OF INJECTION. * Electronic signature of Raul Torres MD on 07/25/2025 at 08:40 AM EDT Sign off status: Pending * Provider: Raul Torres M.D. Date: 0 06/16/2025 Generated for Jerry panda/Kerwin/Arthur on: 1 08:40 AM EDT History and Physical Notes * Examination Category Sub-Category Detail Notes Category Not es General Examination Heart: RSR Lungs: clear to auscultatio n Extremities: 1+ pedal and ankle e stephanie bilaterally. General Appearance: NAD
--- OUTSIDE RECORDS SUMMARY | 2025-07-15 07:25 | XMS_ITS ---
Author Organization [facility] Address [address] [place] [phone] Care Team Providers Care Butcher All Round Name Role Phone Raul Torres Primary Care [...] Administered Encounters Encounter Location Date Provider Diagnosis [facility] [address] [place] [phone] 07/15/2025 Raul Torres Encounter for immunization Z23 Assessments Encounter Date Diagnosis (ICD Code) Assessment Notes Treatment Notes Treatment Clinical Notes Section Notes 07/15/2025 Encounter for immunization (ICD-10 - Z23) Plan Of Treatment Next Appt Details Provider Name:Raul Lopez Gallito jackson, 08/04/2025 02:30:00 PM, [address], [address], [place], [phone], Progress Notes * KWASI HUYNHDOB: 7 (79 yo F)Acc No.[id number]:07/15/2025 Patient: Zeynep KWASI DELCDI Provider: Raul Torres M.D. :1945 A ge:79 Y S ex:Female Date:07/15/2025 Address:[address] [facility], [id number] Subjective: * Chief Complaints: * 1 . [...] of Raul Torres MD on 07/25/2025 at 08:39 AM EDT Sign off status: Pending * Provider: Raul Torres M.D. Date: 0 07/15/2025 Generated for Jerry panda/Kerwin/Arthur on: 1 08:39 AM EDT
--- OUTSIDE RECORDS SUMMARY | 2025-07-21 06:45 | XMS_ITS ---
Author Organization Jared Address [address] [facility] 36 [facility] [address] [place] [id number] Care Team Providers Care Contract Project Manager Name Role Phone Raul Torres Primary Care Provider REASON FOR VISIT foot still swelling Encounters Encounter Location Date Provider Diagnosis [facility] [address] [facility] 36 [facility] [address] [place] [phone] 07/21/2025 Raul Torres Plan Of Treatment Next Appt Details Provider Name:Raul Corral, 08/04/2025 02:30:00 PM, [address] [facility] 36 [facility], [address], [place], [phone], Progress Notes * KWASI HUYNHDOB: (79 yo F)Acc No.[id number]:07/21/2025 Progress Notes Patient: KWASI PANIAGUA Provider: Raul Torres M.D. :1945 A ge:79 Y S ex:Female Date:07/21/2025 Address:[address] [facility], [id number] Subjective: * Chief Complaints: * 1 . Foot still swelling. * Medical History: Objective: * Vitals: Assessment: Plan: * Treatment: * Images: Billing Information: * Visit Code: * Procedure Codes: * Electronic signature of Raul Torres MD on 07/25/2025 at 08:39 AM EDT Sign off status: Pending * Provider: Raul Torres M.D. Date: 0 07/21/2025 Generated for Printi ng/Faxing/eTransmitting on: 1 08:39 AM EDT
[2025-07-25] VITALS (17 sets, daily range): BP systolic 130–159; BP diastolic 77–99; PULSE 74–100; RESP 12–22; TEMP 36.8–37.5; O2SAT 92–98; BMI 23.5
--- NOTE | 2025-07-25 08:34 | ECG_ITS ---
APPROVED REPORT Exam: Resting ECG HR:90 bpm ECG Measurements Heart Rate 90 AXES [place] 206 P 37 QRSd 88 QRS 3 QT 345 T -12 QTc 393 Conclusion Sinus rhythm First-degree AV block Persistent T wave inversions in lead III Deep S waves in the septal leads consistent with prior myocardial infarction No STEMI Electronically signed by : Jose Daly, 07/26/2025 07:33:23
--- OUTSIDE RECORDS SUMMARY | 2025-07-25 08:39 | XMS_ITS | Encounter Summary ---
Author Organization Healthcare Address [address] [place] [address] Care Team Providers Care Local Company Refrigerated Truck Driver Name Role Phone Amparo Arrington MD Primary Care Provider Encounter Details Date Type Department Care Team (Late st Contact Info) Description 06/19/2025 Orders Only [facility] [address] [place] [address] Anita Luu Hyponatremia (Primary Dx); Vitamin [...] place to sleep or slept in a fpc (including now)? No 07/01/2024 Utilities Answer Date [...] documented as of this encounter Care Teams Local Company Refrigerated Truck Driver Relationship Specialty Start Date End Date Amparo Arrington MD [address] [place] [address] PCP - General 03/04/21 documented as of this encounter
--- OUTSIDE RECORDS SUMMARY | 2025-07-25 08:39 | XMS_ITS | Clinical Summary ---
Author Organization [facility] Address [address] [place] [id number] Care Team Providers Care Computed Tomography Technician Name Role Phone Wyatt Torres MD Primary Care Provider [phone] Source Comments This information has been disclosed [...] therelease of HIV test results or diagnoses. [id number] Allergies Active Allergy Reactions Criticality Noted [...] A AND B [employer] Care Teams Computed Tomography Technician Relationship Specialty Start Date End Date Wyatt Torres MD [address] [place] [address] PCP - General Family Medicine 04/09/23
--- OUTSIDE RECORDS SUMMARY | 2025-07-25 08:39 | XMS_ITS | Clinical Summary ---
Author Organization [facility] Address [address] [place] [address] Care Team Providers Care Commercial Journeyman Electrician Name Role Phone Amparo Arrington MD Primary Care Provider [phone] Allergies Active Allergy Reactions Criticality Noted Date [...] PMF's reviewed and stable PT/OT as tolerated [facility] Acquired hypothyroidism 06/30/2024 Overview (06/30/2024): Continue home levothyroxine Complicates all aspects of care Coronary artery disease invo [facility] coronary artery of [facility] heart without angina pectoris 06/30/2024 Overview (06/30/2024): [...] Department Care Team Description 06/19/2025 Orders Only [facility] [address] [place] [...] place to sleep or slept in a mcc (including now)? No 07/01/2024 Utilities Answer Date [...] or (1 - 1-dose 75+ series) 2021 [id number] Vaccine (9 - Moderna risk season) 2025 [...] Antibody Negative Negative 06/30/2024 2:20 AM EDT [facility] Blood Venous blood specimen / Unknown Venipuncture / Unknown 06/30/2024 1:15 AM EDT 06/30/2024 1:40 AM EDT us Sami Rowell MD LAB BLOOD ORDERABLES Final Re sult [facility] [address] [place] [address] from Last 3 Months or Most Recently Relevant to Health Maintenance Insurance MEDICARE [facility] Advance Directives * Full Code (Latest Code Status on File) Date Activated Date Inactivated Comments 07/04/2024 1:04 PM * Full Code Date Activated Date Inactivated Comments 06/30/2024 8:06 AM 07/04/2024 1:04 PM Question Answer Comments Patient has decision-making capacity? Yes Care Teams Commercial Journeyman Electrician Relationship Specialty Start Date End Date Amparo Arrington MD [address] [place] [address] [address] [place] [address] PCP - General 03/04/21
--- OUTSIDE RECORDS SUMMARY | 2025-07-25 08:40 | XMS_ITS | Clinical Summary ---
Author Organization [facility] Address [address] [place] [address] Care Team Providers Care Director Federal Name Role Phone Wyatt Torres MD Primary [...] e alcohol) a glass of wine at [facility] Comments Unknown Sex and Gender Information Value [...] - 200 mg/dL 01/15/2025 12:23 AM EDT [facility] Triglycerides 89 0 - 150 mg/dL 01/15/2025 12:23 AM EDT [facility] HDL Cholesterol 99(H) 40 - 60 mg/dL 01/15/2025 12:23 AM EDT [facility] LDL Cholesterol 75 0 - 100 mg/dL 01/15/2025 12:23 AM EDT [facility] VLDL Cholesterol 16 5 - 40 mg/dL 01/15/2025 12:23 AM EDT [facility] LDL/HDL Ratio 0.74 01/15/2025 12:23 AM T [facility] Blood Venipuncture / Unknown 01/14/2025 10:25 AM EDT 01/14/2025 10:26 AM EDT Narrative [facility] - 01/15/2025 12:23 AM EDT Cholesterol [...] MD LAB BLOOD ORDERABLES Final Resul t [facility]
[address] [place] [address], from Last 3 Months or Most Recently Relevant to Health Maintenance Insurance MEDICARE A & B [employer] [facility] Care Teams Director Federal Relationship Specialty Start Date End Date Wyatt Torres MD [address] [facility] [address] [facility] [address] [place] [address] PCP - General Family Medicine 12/26/24
--- OUTSIDE RECORDS SUMMARY | 2025-07-25 08:40 | XMS_ITS | Encounter Summary ---
Author Organization [facility] Address [address] [place] [address] Care Team Providers Care Mortgage Loan Coordinator Name Role Phone Wyatt Torres MD Primary Care Provider Encounter Details Date Type Department Care Team (Late st Contact Info) Description 01/15/2025 Results Follow-Up [facility] [address] [facility] [address] [phone] Jennyfer Porras APRN [address] [facility] [address] [place] [address] Social History Tobacco Use Types Packs/Day Years [...] on filedocumented in this encounter Care Teams Mortgage Loan Coordinator Relationship Specialty Start Date End Date Wyatt Torres MD [address] [place] [facility] [address] [facility] [place] [address] PCP - General Family Medicine 12/26/24 documented as of this encounter
--- OUTSIDE RECORDS SUMMARY | 2025-07-25 08:40 | XMS_ITS | Data Portability ---
Author Organization [facility] Marleny junior CKS [employer]BAUGH CLOSED Address [address] [place] [address] Care Team Providers Care Supervising Appraiser Name Role Phone EMA CAMPOS Primary Care Provider ROSE BASS Chief Innovation Officer Assessment Encounter Date Assessment Date Assessment LastModified [...] Modified Time Details Appointments RHEUM RECHECK 2024 09:15A M ROSE BASS MD Not available Not available Not available Lab rf (rheumato id factor), serum 2023 07 024 [facility], [address] [place] [address], [id number], 05/07/2024 11:20:43 ccp (cyclic citrullin ated peptide) iga+igg, serum 2023 024 [facility], [address] [place] [address], [id number], 05/09/2024 16:52:40 ESR (erythroc yte sedimenta tion rate), blood 2023 024 [facility], [address] [place] [address], [id number], 05/07/2024 11:12:24 C reactive protein, QN, serum or plasma 2023 024 [facility], [address] [place] [address], [id number], 05/07/2024 11:20:45 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, qual, blood 2023 024 [facility], [address] [place] [address], [id number], 05/10/2024 02:43:42 hepatitis C Ab, serum 2023 024 [facility], [address] [place] [address], [id number], 05/07/2024 11:39:06 ESR (erythroc yte sedimenta tion rate), blood 2023 024 [facility], [address] [place] [address], [id number], 10/25/2023 11:13:45 C reactive protein, QN, serum or plasma 2023 024 [facility], [address] [place] [address], [id number], 10/25/2023 11:26:25 Referral None recorded. Procedures None recorded. Surgeries None recorded. Imaging None recorded. Medication Orders prednison e 5 mg tablet 2024 025 [facility] [address] [place], [address], 01/27/2025 10:42:41 Cymbalta 30 mg capsule,d elayed release 2023 024 [facility] [address] [place], [address], 01/28/2024 10:15:00 Depo-Medr ol 80 mg/mL suspensio n for injection [address] [facility] [address] [place], [address], 10/25/2023 10:45:28 Patient TargetsNo targets recorded. Patient InstructionsNo instructions recorded. Reason for Referral None Reported. Results Created Date Observation Date Name Description Value Unit Range Abnormal Flag Note LastModifiedBy Organization Detail LastModifiedTime 10/25/1910/25/2023 ESR, AUTOM ATED ESR, automated 7 mm 0-29 normal Not Available [facility] [address] [place] [address], [id number], 10/25/2023 11:13:45 10/25/19 24 10/25/2023 C REACT KASANDRA PROTE IN C reactive protein 0.17 mg/dL 0.00-0 .49 normal Not Available [facility] [address] [place] [address], [id number], 10/25/2023 11:26:25 05/07/20 24 05/07/2024 ESR, AUTOM ATED ESR, automated 12 mm 0-29 normal Not Available [facility] [address] [place] [address], [id number], 05/07/2024 11:12:24 05/07/20 24 05/07/2024 RF SCREE N, QUANT . rf screen, quant. <10.0 [IU]/ mL 0.0-13 .9 normal Not Available [facility] [address] [place] [address], [id number], 05/07/2024 11:20:43 05/07/20 24 05/07/2024 C REACT KASANDRA PROTE IN C reactive protein 0.17 mg/dL 0.00-0 .49 normal Not Available [facility] [address] [place] [address], [id number], 05/07/2024 11:20:45 05/07/20 24 05/07/2024 HEPAT ITIS C AB SCR, REFLE X HCVQT hcab scr, reflex viral RNA qt NONREA CTIVE nonrea ctive normal Antib odies to HCV were not detec beth; does not exclu de the possi bilit y of expos ure to HCV. Not Available [facility] [address] [place] [address], [id number], 05/07/2024 11:39:06 05/07/20 24 05/09/2024 ANTI- CCP anti-ccp <16 units normal Refer ence Range Negat kasandra: <20 Weak Posit kasandra: 20-39 Moder ate Posit kasandra: 40-59 Stron g Posit kasandra: >59 Not Available [facility] [address] [place] [address], [id number], 05/09/2024 16:52:40 05/07/20 24 05/10/2024 QUANT IFERO N TB GOLD qtb gold NEGATI VE negati ve normal Negat kasandra test resul t. M. tuber culos is compl ex infec tion unlik erin. Not Available [facility] [address] [place] [address], [id number], 05/15/2024 15:49:02 05/07/20 24 05/10/2024 QUANT IFERO N TB GOLD nil 0.01 IU/mL normal Not Available [facility] [address] [place] [address], [address], 05/15/2024 15:49:02 05/07/20 24 05/10/2024 QUANT IFERO N TB GOLD mitogen nil >10.00 IU/mL normal Not Available [facility] [address] [place], [address], 05/15/2024 15:49:02 05/07/20 24 05/10/2024 QUANT IFERO N TB GOLD TB1 nil 0.00 IU/mL normal Not Available [facility] [address] [place], [address], 05/15/2024 15:49:02 05/07/20 24 05/10/2024 QUANT IFERO [...] refer to https ://ed bonillaati on.qu blayne Intense. com/f aq/FA Q204 (This link is being provi ded for infor uday cormier/ educa belkis l purpo ses only. ) Not Available [facility] [address] [place], [address], 05/15/2024 15:49:02 Result Notes None recorded. 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 Procedures Surgical History Date Name Laterality Status Provider Name and Address Organization Details Recorded Time Remove tonsils and adenoids completed [facility] 12/19/2018 09:47:28 Removal of thyroid completed [facility] 12/19/2018 09:47:47 Imaging Results None recorded. Procedure Notes None recorded. Medical Equipment None Reported. Allergies Allergen ID Allergen Name Allergen Category Reaction Reaction Severity Criticality Documentation Date Start Date Code Code System Note Provider Name and Address Organization Details Recorded Time 039390 Substance with sulfonami de structure and antibacte rial mechanism of action (substanc e) medicatio n Not available Not available Not available 09/15/20162014 56241 8003 SNOMED Comme nt: Creat ed By: Rayna Gonzalez; Creat ed Date: 2014 10:04 :26 AM; Not Available [facility] 6 09:13:41 [id number] codeine medicatio n Not available Not available Not available 09/15/20162014 2670 RxNorm Comme nt: Creat ed By: Rayna Gonzalez; Creat ed Date: 2014 10:03 :51 AM; Not Available [facility] 6 09:37:20 Medications Name Sig Start Date [...] levothyr oxine; Dosage:1 ; refills: 0; Quantity :96853 mcg Not Available Not Available Not Available [...] in Arterial blood by Pulse oximetry Systolic And Diastolic Provider Name and Address Organization Details Last Updated DateTime 4 167.64 cm 24.7 kg/m2 79153.6 3 g 16 /min 67 /min 96 % 96 % 152/90 mm[Hg] Frieda Mcmahon [facility] 4 10:07:20 Date Recorded Body height Body mass index (BMI) Body weight Provider Name and Address Organization Details Last Updated DateTime 10/28/2024 167.64 cm 24.7 kg/m2 01158.63 g [facility] 10/28/2024 13:15:40 Date Recorded Body height Body mass index (BMI) Body weight Respiratory rate Heart rate Oxygen saturation Oxygen saturation in Arterial blood by Pulse oximetry Systolic And Diastolic Provider Name and Address Organization Details Last Updated DateTime 4 167.64 cm 24.7 kg/m2 15519.6 3 g 16 /min 69 /min 96 % 96 % 120/80 mm[Hg] [facility] 4 10:42:58 Date Recorded Body height Respiratory rate Body mass index (BMI) Body weight Oxygen saturation Oxygen saturation in Arterial blood by Pulse oximetry Heart rate Systolic And Diastolic Provider Name and Address Organization Details Last Updated DateTime 5 167.64 cm 16 /min 24.7 kg/m2 70812.6 3 g 97 % 97 % 68 /min 126/82 mm[Hg] [facility] 5 10:34:11 Date Recorded Body height Body mass index (BMI) Body weight Respiratory rate Heart rate Oxygen saturation Oxygen saturation in Arterial blood by Pulse oximetry Systolic And Diastolic Provider Name and Address Organization Details Last Updated DateTime 4 167.64 cm 24.7 kg/m2 49687.6 3 g 16 /min 86 /min 97 % 97 % 122/80 mm[Hg] [facility] 4 09:59:55 Social History Question Answer Notes LastModified by Organizat ion Details LastModified Time Tobacco Smoking Status Former Smoker January [facility] 10/26/2017 14:04:04 How Much Tobacco Do You Chew? None Information not available 06/19/2019 What Was The Date Of Your Most Recent Tobacco Screening? 01/27/2025 [email or web address] Information not available 01/27/2025 How Much Tobacco Do You Smoke? 1 PPD Information not available 06/19/2019 How Many Years Have You Smoked Tobacco? 40 Information not available 06/19/2019 Have You Recently Traveled Abroad? No [email or web address] Information not available 10/24/2022 Sex: Unknown Functional Status Question Answer Note LastModified by Organizat ion Details LastModified Time What is your level of alcohol consumption? None [email or web address] Information not available 12/19/2018 Do you or have you ever used smokeless tobacco? Never used smokeless tobacco Information not available 06/19/2019 Do you or have you ever used e-cigarettes or vape? Never used electronic cigarettes Information not available 06/19/2019 Mental Status None recorded. Family History Nothing Reported. Medical History Condition Response Diabetes N Bleeding Disorder N Arthritis N Emphysema N Acid Reflux (GERD) N Heart Disease Y Rheumatoid Arthritis N Hypertension Y COPD N Asthma N Gynecological HistoryNo gynecological history recorded. Obstetrics History GPAL:G 0 P 0 0 0 0 Past Encounters Encounter ID Performer Location Encounter Start Date Encounter Closed Date Diagnosis/Indication Diagnosis SNOMED-CT Code Diagnosis ICD10 Code Diagnosis IMO Codes Diagnosis Note [id number] ARLENE MEI APRN [facility] [address] [place] [address] 10/26/2017 13:52:29 10/26/2017 14:49:45 Pain of multiple joints 38579545 M25.50 71 year old female is here [...] go over results. Anti-nucle ar factor detected 500111730 R76.8 As detailed above OPAL obtained in 2013 was 1:160 homogenous .Recently checked per PCP and was homogenous 1:320.Will obtain lupus panel today. [id number] ARLENE MEI APRN [facility] [address] [place] [address] 11/08/2017 10:21:14 11/12/2017 08:10:02 Hyperuricemia 13768468 E79.0 Hyperurice miaPatient reports episodes of heat [...] 3 months, to recheck uric acid level. [id number] ROSE BASS MD [facility] [address] [place] [address] 11/04/2018 10:30:43 11/07/2018 07:59:17 Inflammatory polyarthropathy 106845376 M06.4 very pleasant 72-year-ol d female with [...] she was comfortabl e with the plan. [id number] [place] [address] [place] [address] 12/19/2018 09:01:43 12/20/2018 08:50:39 Polymyalgia rheumatica 46581393 M35.3 clinically looks so much better. Active and passive range of motion. She has palpable pulses without any jaw tenderness or temporal tenderness . I would like her to maintain prednisone at 5 mg once a day. Inflammato ry polyarthropathy 669265742 M06.4 in terms of inflammato ry arthritis, [...] Her baseline eye examinatio n is stable. [id number] [place] [address] [place] [address] 06/19/2019 09:47:18 06/24/2019 08:38:26 Polymyalgia rheumatica 73117527 M35.3 chronic disease and under excellent control. In clinical remission. Excellent Range of motion. No physical limitation s noted. I would like her to maintain prednisone at 5 mg once a day. Inflammato ry polyarthropathy 110520829 M06.4 chronic polyarticu lar inflammato ry arthritis associated with PMR remains in clinical remission. I would like her to continue with hydroxychl oroquine at 200 mg once a day. [id number] [place] [address] [place] [address] 06/21/2020 07:59:24 06/21/2020 11:07:16 Polymyalgia rheumatica 16912766 M35.3 74-year-ol d female with chronic polymyalgi [...] headaches or vision changes. Inflammato ry polyarthropathy 304916318 M06.4 chronic polyarticu lar inflammato ry arthritis associated with PMR. fairly stable. maintain hydroxychl oroquine 200 mg twice a [id number] ROSE BASS MD [facility] [address] [place] [address] 09/29/2020 10:12:08 09/29/2020 10:38:53 Polymyalgia rheumatica 09484995 M35.3 74-year-ol d female with chronic polymyalgi [...] follow-up in 3 months Inflammato ry polyarthropathy 960169553 M06.4 associated inflammato ry arthritis. Symptomati marvin joint pains as detailed above. Medication s As described above combinatio n of hydroxychl oroquine and prednisone . Follow-up in 3 months. [id number] ROSE BASS MD [facility] [address] [place] [address] 12/29/2020 10:28:14 12/29/2020 11:52:19 Polymyalgia rheumatica 38707212 M35.3 74-year-ol d female with chronic polymyalgi [...] n once a year. Inflammato ry polyarthropathy 510707891 M06.4 Chronic and associated with polymyalgi a rheumatica . Currently clinically stable. Maintain the combinatio n of prednisone as well as hydroxychl oroquine as stated above. [id number] ROSE BASS MD [facility] [address] [place] [address] 04/29/2021 09:27:28 04/29/2021 10:15:19 Inflammatory polyarthropathy 361636367 M06.4 Chronic and associated with polymyalgi a rheumatica . has done well. Isabelle khan not able to load the prednisone dose and is currently on prednisone 10 mg alternatin g with 5 mg every other day. She also takes hydroxychl oroquine 200 mg twice a day. Must need to follow with eye examinatio n once a year Polymyalgi a rheumatica 14761330 M35.3 75-year-ol d female with chronic polymyalgi a rheumatica . Clinically stable on the current dose of prednisone as detailed above. No stigmata for giant cell arteritis. Repeat the ESR. Follow with eye examinatio n once a year. Long-term drug therapy 890143009 Z79.899 Of pain last follow-up on polymyalgi a rheumatica and inflammato ry arthritis. Bone density test needs to be done every 2 years. Maintain calcium and vitamin D on account of risk for osteoporos is on steroids. Also suggested to follow up with a bone density test with her primary care physician [id number] ROSE BASS MD [facility] [address] [place] [address] 11/02/2021 12:56:26 11/02/2021 13:19:32 Inflammatory polyarthropathy 840754842 M06.4 Lcebz33-hq ar-old with polyarthri tis Chronic and stable. The current combinatio n of prednisone and hydroxychl oroquine is very helpful. Refills were given.Foll ow-up in 6 months Polymyalgi a rheumatica 93921942 M35.3 75-year-ol d female with chronic polymyalgi a rheumatica . Clinically stable on the current dose of prednisone 10 mg alternatin g with 5 mg every other day along with hydroxychl oroquine 200 mg twice a day. No stigmata for giant cell arteritis. Repeat the ESR. Follow with eye examinatio n once a year. Long-term drug therapy 297136462 Z79.899 Must follow-up with an eye examinatio n every year. Bone density test every 2 years. Maintain calcium vitamin D. Also suggested to follow up with a bone density test with her primary care physician [id number] ROSE BASS MD [facility] [address] [place] [address] 05/01/2022 08:17:48 05/01/2022 15:37:51 Inflammatory polyarthropathy 626337039 M06.4 76- year-old with polyarthri tis Seronegati [...] intact active and passive range of motion.Shahrzad light the current treatment plans Refills were given.Foll ow-up in 6 months Polymyalgi a rheumatica 25339847 M35.3 76-year-ol d female with chronic polymyalgi a rheumatica . Clinically stable. No proximal muscle pain or weakness reported.N o stigmata for giant cell arteritis. Last ESR 04/29/2021 9 mm/h Repeat the ESR. Follow with eye examinatio n once a year. Long-term drug therapy 010550999 Z79.899 Must follow-up with an eye examinatio n every year. Bone density test every 2 years. Maintain calcium vitamin D. She typically follows the bone density test with her PCP. She will get us a copy. [id number] ROSE BASS MD [facility] [address] [address] 10/24/2022 13:59:01 10/25/2022 14:30:30 Inflammatory polyarthropathy 011531904 M06.4 76- year-old with polyarthri tisSeroneg ative [...] renal toxicity. Refills given Polymyalgi a rheumatica 30127861 M35.3 76-year-ol d female with chronic polymyalgi a rheumatica .From the PMR point of view looks stable.No proximal muscle pain or weakness reported.N o stigmata for giant cell arteritis. Last ESR 04/29/2021 9 mm/h Repeat ESR today Long-term drug therapy 378930395 Z79.899 Must follow-up with an eye examinatio n every year While taking the hydroxychl oroquine. On account of corticoste roid use, osteoporos is, osteonecro sis risk were reviewed. Weight gain diabetes also reviewed. Must follow with a bone density every 2 years [id number] ROSE BASS MD [facility] [address] [place] [address] 04/03/2023 13:22:18 04/05/2023 04:49:45 Inflammatory polyarthropathy 612942786 M06.4 77- year-old with polyarthri tisSeroneg ative [...] toxicity. Follow-up 6 months Polymyalgi a rheumatica 59669585 M35.3 77-year-ol d female with chronic polymyalgi [...] prednisone resulted in flare. Long-term drug therapy 785359789 Z79.899 Must follow-up with an eye examinatio n every year While taking the hydroxychl oroquine. On account of corticoste roid use, osteoporos is, osteonecro sis risk were reviewed. Weight gain diabetes also reviewed. Must follow with a bone density every 2 years [id number] ROSE BASS MD [facility] [address] [place] [address] 10/25/2023 09:56:13 10/26/2023 15:37:58 Inflammatory polyarthropathy 314287153 M06.4 77- year-old with polyarthri tisSeroneg ative [...] toxicity. Follow-up 3 months Polymyalgi a rheumatica 76386638 M35.3 77-year-ol d female with chronic polymyalgi [...] her current treatment plan. Long-term drug therapy 975974085 Z79.899 Must follow-up with an eye examinatio n every year While taking the hydroxychl oroquine. On account of corticoste roid use, osteoporos is, osteonecro sis risk were reviewed. Weight gain diabetes also reviewed. Must follow with a bone density every 2 years [id number] ROSE BASS MD [facility] [address] [place] [address] 01/21/2024 10:13:42 01/22/2024 04:18:34 Inflammatory polyarthropathy 457147065 M06.4 78- year-old with polyarthri tisSeroneg ative [...] toxicity. Follow-up 3 months Polymyalgi a rheumatica 96137182 M35.3 78-year-ol d female with chronic polymyalgi [...] CRP 10/25/2023 is normal Long-term drug therapy 561789191 Z79.899 Must follow-up with an eye examinatio n every year While taking the hydroxychl oroquine. On account of corticoste roid use, osteoporos is, osteonecro sis risk were reviewed. Weight gain diabetes also reviewed. Must follow with a bone density every 2 years Fibromyalgia 908086809 M 79.7 Symptomati c with diffuse fibromyalg ia tender points. Discussed the diagnosis of fibromyalg ia. Educated about the disease. On account of fibromyalg ia pain, suggested the addition of cymbalta. Side effect profile reviewed. Prescripti on sent. Breast reduction discussed. Follow up in March 2024. [id number] ROSE BASS MD [facility] [address] [place] [address] 05/07/2024 09:49:06 05/08/2024 04:38:13 Inflammatory polyarthropathy 731087314 M06.4 78- year-old with polyarthri tisSeroneg ative [...] toxicity. Follow-up 3 months Polymyalgi a rheumatica 22112341 M35.3 78-year-ol d female with chronic polymyalgi [...] ESR and CRP today. Long-term drug therapy 069692199 Z79.899 Must follow-up with an eye examinatio n every year While taking the hydroxychl oroquine. On account of corticoste roid use, osteoporos is, osteonecro sis risk were reviewed. Weight gain diabetes also reviewed. Must follow with a bone density every 2 yearsTB and hep c test today. Fibromyalgia 591736429 M 79.7 Symptomati c with diffuse fibromyalg ia tender points. Discussed the diagnosis of fibromyalg ia. Educated about the disease. On account of fibromyalg ia pain, suggested the addition of cymbalta. Side effect profile reviewed. Prescripti on sent. Breast reduction discussed. Follow up in March 2024. [id number] ROSE BASS MD [facility] [address] [place] [address] 10/28/2024 13:15:11 10/29/2024 09:41:27 Inflammatory polyarthropathy 916227859 M06.4 78- year-old with polyarthri tisSeroneg ative [...] toxicity. Follow-up 3 months Polymyalgi a rheumatica 30943692 M35.3 78-year-ol d female with chronic polymyalgi a rheumatica .Asymptoma tic. On combinatio n of prednisone and hydroxychl oroquine as detailed above. We have talked about Kevzara. She would rather hold off on it. Long-term drug therapy 422598971 Z79.899 Must follow-up with an eye examinatio n every year While taking the hydroxychl oroquine. On account of corticoste roid use, osteoporos is, osteonecro sis risk were reviewed. Weight gain diabetes also reviewed. Must follow with a bone density every 2 yearsTB and hep c test today. Fibromyalgia 212763846 M 80.7 Clinically stable. No complaints . Pains are well-contr olled. Continue with gabapentin 100 mg every 8 hours Follow-up in 3 months [id number] ROSE BASS [facility] [address] [place] [address] 01/27/2025 10:22:01 01/28/2025 04:37:03 Inflammatory polyarthropathy 916446273 M06.4 78- year-old with polyarthri tisSeroneg ative [...] toxicity. Follow-up 3 months Polymyalgi a rheumatica 66851339 M35.3 78-year-ol d female with chronic polymyalgi [...] hold off on it. Long-term drug therapy 563469172 Z79.899 Must follow-up with an eye examinatio n every year While taking the hydroxychl oroquine. On account of corticoste roid use, osteoporos is, osteonecro sis risk were reviewed. Weight gain diabetes also reviewed. Must follow with a bone density every 2 years Will repeat the labs on her visit in April. Fibromyalgia 544359873 M [age] Clinically stable. No complaints . [...] Member ID Valdez Member ID Guarantor Name 06/27/2025 1 [place] Andry Culp [id number] Andry Culp 05/16/2024 2 [employer] [place] Andry Culp [id number] Andry Culp 06/27/2025 2 [employer] [place] (MEDICARE SUPPLEMENT) PLAN G Andry Culp [id number] Andry Culp Notes Date Note Type Note Provider Name and Address Organization Details Recorded Time 10/25/2023 text/html ROS as noted in the HPI 77 years old seen as a follow-up on [...] eknees . No headaches or jaw pain. ROSE BASS MD [address] [place] [address], [phone], [facility] 10/25/2023 10:45:26 01/21/2024 text/html ROS as noted in the HPI 78 years old seen as a follow-up [...] headaches or jaw pain. ROSE BASS MD [address] [place] [address], [phone], [facility] 01/21/2024 16:55:07 05/07/2024 text/html ROS as noted in the HPI 78 years old seen as a follow-up [...] side effects. No headaches or jaw pain. [facility] [place], [address], [facility] 05/07/2024 16:46:44 10/28/2024 text/html ROS as noted in the HPI Visit today is being conducted via telehealth using both audio/video. The patient confirms that he/she is physically located in [place] at the time of this visit. Patient expressed understanding of audio/video telehealth as a billable visit and has consented. Patient also expressed understanding that not every condition can be appropriately addressed via telehealth and that this telehealth visit may need to be converted to an in-person visit or may even result in a recommendation to go to the E.R. at the provider s discretion in order to provide the [...] headaches or jaw pain. ROSE BASS MD [facility] [place], [address], [facility] 10/28/2024 13:30:53 01/27/2025 text/html ROS as noted in the HPI 79 years old seen as a follow-up on [...] No vision changes. ROSE BASS MD [address] [place], [id number], [facility] 01/27/2025 11:01:52 OBGyn Episode No OBEpisode recorded.
--- OUTSIDE RECORDS SUMMARY | 2025-07-25 08:40 | XMS_ITS | Patient Health Record ---
Author Organization [facility] Address [address] [facility] [address] [place] [id number] Care Team Providers Care Phlebotomy Manager Name Role Phone Raul Torres Primary Care Provider Channing Garcia Unavailable [phone] Marie Helm Unavailable [phone] Oneida Edwards Unavailable [phone] Allergies Allergen (clinical drug ingredient) Drug/Non Drug [...] Interpretation: Performing Lab: Notes/Report: Test performed by [facility] [address] [place], [place] [address]stickK Jasmine Farmer, [place] [address] Gilmer Lowe MD, Supervisor [employer] CLIA: [id number] Cortisol AM 5.3 6.0-18.4 ug/dL P-Basic Metabolic Panel (BMP ) Reviewed date:04/14/2025 01:09:28 PM Interpretation: Performing Lab: Notes/Report: Test performed by [facility] [address] [place], [place] [address]stickK Jasmine Farmer, [place] [address] Gilmer Lowe MD, Supervisor [employer] CLIA: [id number] Sodium 128 135-145 mmol/L Potassium 3.7 3.5-5.3 mmol/L Chloride 92 97-108 mmol/L CO2 24 22-32 mmol/L Glucose 93 65-99 mg/dL BUN 16 8-23 mg/dL Creatinine 1.02 0.50-1.00 mg/dL Calcium 9.2 8.6-10.4 mg/dL eGFR by Creatinine 56 >59 mL/min/1.73m2 P-Basic Metabolic Panel (BMP ) Reviewed date:05/26/2025 10:23:05 PM Interpretation:Na 122, cl 86, gluc 102 Performing Lab: Notes/Report: Test performed by [facility], [address] , [address], [place] [address] Gilmer Lowe MD, Supervisor [employer] CLIA: [id number] Sodium 122 135-145 mmol/L Potassium 4.2 3.5-5.3 [...] 1.015 Ketone neg Bili neg Gluc neg H-CBC Reviewed date:03/13/2025 08:48:08 AM Interpretation: Performing [...] K 4.6 3.5-5.1 mmoL/L Delta: 3.4 on 03/13/25-0607 CL 100 98-107 mmol/L CO2 21 22.0-30.0 mmol/L GAP 8.6 5-15 mEq/L BUN 10 7-17 mg/dl CREATT 0.70 0.52-1.04 mg/dl CRCLE 51 50-200 mL/min GFRAA 98 >60 ML/MIN EGFR 81 >60 ml/min GLU 81 74-100 mg/dl CA 8.3 8.4-10.2 mg/dl H-TSH [...] 87 74-100 mg/dl CA 8.3 8.4-10.2 mg/dl CBC Fingerstick (in house) Reviewed date:02/05/2025 01:51:50 [...] - 38 plat 185 100 - 400 H-Magnesium Reviewed date:07/21/2025 08:59:07 AM Interpretation: Performing Lab: Notes/Report: MG 2.7 1.6-2.3 mg/dl Delta: 1.7 on 07/20/25-634 BMP Reviewed date:04/02/2025 02:57:40 PM Interpretation: Performing Lab: Notes/Report: H-CBC Reviewed date:07/22/2025 12:02:51 PM Interpretation: Performing Lab: Notes/Report: WBC 6.2 4.8-10.8 K/mm3 RBC 3.57 4.20-5.40 M/mm3 HGB 11.7 12.2-16.2 g/dL HCT 34.8 37.0-47.0 % MCV 97.5 81-99 fl MCH 32.8 27.0-31.2 pg MCHC 33.6 31.8-35.4 g/dL RDW-SD 46.4 RDW 12.9 11.5-17.5 % PLT 178 142-424 K/mm3 MPV 9.6 7.4-10.4 fl NE% 80.5 37.0-80.0 % LY% 8.1 10-50 % MO% 7.9 1.7-9.3 % EO% 1.6 0.1-12.0 % BA% 0.8 0.1-2.0 % NRBC% 0 IG% 1.1 NE# 5.0 1.8-7.8 K/mm3 LY# 0.5 0.7-4.5 K/mm3 MO# 0.5 0.1-1.0 K/mm3 EO# 0.1 0.0-0.4 Kmm3 BA# 0.1 0-0.2 K/mm3 NRBC# 0 IG# 0.07 H-DIFF Reviewed date:07/22/2025 12:02:51 PM Interpretation: Performing Lab: Notes/Report: CIELO MANUAL DIFFERENTIAL MANUAL DIFF TCC 100 NEUT%M 86 42-76 % LYMPH%M 6 10-50 % MONO%M 7 2-9 % EOS%M 1 0-3 % PLTE Normal RM Normal H-BMP Reviewed date:07/22/2025 12:02:51 PM Interpretation: Performing Lab: Notes/Report: NA 124 136-145 mmol/L K 3.3 3.5-5.1 mmoL/L CL 88 98-107 mmol/L CO2 29 22.0-30.0 mmol/L GAP 10.3 5-15 mEq/L BUN 6 7-17 mg/dl Delta: 11 on 07/21/25 CREATT 0.80 0.52-1.04 mg/dl Delta: 1.10 on 07/21/25 CRCLE 48 50-200 mL/min GFRAA 84 >60 ML/MIN Delta: 58 on 07/21/25 EGFR 69 >60 ml/min GLU 117 74-100 mg/dl CA 8.5 8.4-10.2 mg/dl H-CBC Reviewed date:07/23/2025 08:33:44 AM Interpretation: Performing Lab: Notes/Report: WBC 5.5 4.8-10.8 K/mm3 RBC 3.24 4.20-5.40 M/mm3 HGB 10.8 12.2-16.2 g/dL HCT 31.1 37.0-47.0 % MCV 96.0 81-99 fl MCH 33.3 27.0-31.2 pg MCHC 34.7 31.8-35.4 g/dL RDW-SD 45.1 RDW 12.7 11.5-17.5 % PLT 195 142-424 K/mm3 MPV 10.0 7.4-10.4 fl NE% 58.5 37.0-80.0 % LY% 17.0 10-50 % MO% 19.7 1.7-9.3 % EO% 2.4 0.1-12.0 % BA% 1.1 0.1-2.0 % NRBC% 0 IG% 1.3 NE# 3.2 1.8-7.8 K/mm3 LY# 0.9 0.7-4.5 K/mm3 MO# 1.1 0.1-1.0 K/mm3 EO# 0.1 0.0-0.4 Kmm3 BA# 0.1 0-0.2 K/mm3 NRBC# 0 IG# 0.07 H-BMP Reviewed date:07/23/2025 08:33:44 AM Interpretation: Performing Lab: Notes/Report: NA 123 136-145 mmol/L K 3.2 3.5-5.1 mmoL/L CL 92 98-107 mmol/L CO2 24 22.0-30.0 mmol/L GAP 10.2 5-15 mEq/L BUN 5 7-17 mg/dl CREATT 0.80 0.52-1.04 mg/dl CRCLE 49 50-200 mL/min GFRAA 84 >60 ML/MIN EGFR 69 >60 ml/min GLU 114 74-100 mg/dl CA 8.0 8.4-10.2 mg/dl H-CBC Reviewed date:07/24/2025 09:37:12 AM Interpretation: Performing Lab: Notes/Report: WBC 7.5 4.8-10.8 K/mm3 Delta: 5.5 on 07/23/25 RBC 3.42 4.20-5.40 M/mm3 HGB 11.2 12.2-16.2 g/dL HCT 32.5 37.0-47.0 % MCV 95.0 81-99 fl MCH 32.7 27.0-31.2 pg MCHC 34.5 31.8-35.4 g/dL RDW-SD 44.9 RDW 12.8 11.5-17.5 % PLT 217 142-424 K/mm3 MPV 9.8 7.4-10.4 fl NE% 63.5 37.0-80.0 % LY% 17.2 10-50 % MO% 15.3 1.7-9.3 % EO% 1.9 0.1-12.0 % BA% 0.9 0.1-2.0 % NRBC% 0 IG% 1.2 NE# 4.7 1.8-7.8 K/mm3 LY# 1.3 0.7-4.5 K/mm3 MO# 1.1 0.1-1.0 K/mm3 EO# 0.1 0.0-0.4 Kmm3 BA# 0.1 0-0.2 K/mm3 NRBC# 0 IG# 0.09 H-BMP Reviewed date:07/24/2025 09:37:12 AM Interpretation: Performing Lab: Notes/Report: NA 122 136-145 mmol/L K 3.6 3.5-5.1 mmoL/L CL 91 98-107 mmol/L CO2 23 22.0-30.0 mmol/L GAP 11.6 5-15 mEq/L BUN 6 7-17 mg/dl CREATT 0.70 0.52-1.04 mg/dl CRCLE 48 50-200 mL/min GFRAA 98 >60 ML/MIN EGFR 81 >60 ml/min GLU 95 74-100 mg/dl CA 8.9 8.4-10.2 mg/dl H-CBC Reviewed date:07/21/2025 08:59:07 AM Interpretation: Performing Lab: Notes/Report: WBC 7.6 4.8-10.8 K/mm3 Delta: 15.6 o n 07/20/25 RBC 3.87 4.20-5.40 M/mm3 HGB 13.0 12.2-16.2 g/dL HCT 37.1 37.0-47.0 % MCV 95.9 81-99 fl MCH 33.6 27.0-31.2 pg MCHC 35.0 31.8-35.4 g/dL RDW-SD 44.5 RDW 12.6 11.5-17.5 % PLT 206 142-424 K/mm3 MPV 9.7 7.4-10.4 fl NE% 88.6 37.0-80.0 % LY% 3.2 10-50 % MO% 6.4 1.7-9.3 % EO% 0.1 0.1-12.0 % BA% 0.8 0.1-2.0 % NRBC% 0 IG% 0.9 NE# 6.7 1.8-7.8 K/mm3 LY# 0.2 0.7-4.5 K/mm3 MO# 0.5 0.1-1.0 K/mm3 EO# 0.0 0.0-0.4 Kmm3 BA# 0.1 0-0.2 K/mm3 NRBC# 0 IG# 0.07 H-DIFF Reviewed date:07/21/2025 08:59:07 AM Interpretation: Performing Lab: Notes/Report: CIELO MANUAL DIFFERENTIAL MANUAL DIFF TCC 100 NEUT%M 88 42-76 % LYMPH%M 5 10-50 % MONO%M 6 2-9 % EOS%M 1 0-3 % H-BMP Reviewed date:07/21/2025 08:59:07 AM Interpretation: Performing Lab: Notes/Report: NA 123 136-145 mmol/L K 3.3 3.5-5.1 mmoL/L Delta: 2.5 on 07/20/25 CL 89 98-107 mmol/L CO2 27 22.0-30.0 mmol/L GAP 10.3 5-15 mEq/L BUN 11 7-17 mg/dl CREATT 1.10 0.52-1.04 mg/dl Delta: 0.90 on 07/20/25 CRCLE 42 50-200 mL/min GFRAA 58 >60 ML/MIN Delta: 73 on 07/20/25 EGFR 48 >60 ml/min GLU 126 74-100 mg/dl CA 8.4 8.4-10.2 mg/dl H-BMP Reviewed date:03/12/2025 11:04:11 AM Interpretation: Performing [...] 97 74-100 mg/dl CA 8.2 8.4-10.2 mg/dl M-Hemoglobin and Hematocrit Reviewed date:03/12/2025 11:04:11 AM Interpretation: Performing Lab: Notes/Report: HGB 11.4 12.2-16.2 g/dL HCT 32.1 37.0-47.0 % H-PHOS Reviewed date:03/12/2025 11:04:11 AM Interpretation: Performing Lab: Notes/Report: PHOS 2.8 2.5-4.5 mg/dl H-Magnesium Reviewed date:03/12/2025 11:04:11 AM Interpretation: Performing Lab: Notes/Report: MG 1.5 1.6-2.3 mg/dl H-Cardiac Enzymes Reviewed date:03/12/2025 11:04:11 AM [...] Biotin is occasionally prescribed for medical conditions. P-Basic Metabolic Panel (BMP ) Reviewed date:10/07/2024 05:35:13 PM Interpretation:Na 131, cl 95, gluc 126, Cr 1.13, gfr 50 Performing Lab: Notes/Report: Test performed by [facility], [facility] , [address], [place] [address] Gilmer Lowe MD, Supervisor [employer] CLIA: [id number] Sodium 131 135-145 mmol/L Potassium 4.6 3.5-5.3 mmol/L Chloride 95 97-108 mmol/L CO2 22 22-32 mmol/L Glucose 126 65-99 mg/dL BUN 13 8-23 mg/dL Creatinine 1.13 0.50-1.00 mg/dL Calcium 9.5 8.6-10.4 mg/dL eGFR by Creatinine 50 >59 mL/min/1.73m2 BMP Reviewed date:08/07/2024 08:32:05 AM Interpretation: Performing Lab: Notes/Report: CBC Venipuncture (in house) Reviewed date:04/16/2025 11:50:29 [...] - 38 platlet 197 100 - 400 Medications Medication SIG (Take, Route, Frequency, Duration) [...] Vaccine Route Administration Date Status Comme nts COVID 19 Moderna Unknown 11/18/2020 Administered COVID 19 Moderna Unknown 12/16/2020 Administered COVID 19 Moderna Unknown 06/17/2021 Administered COVID 19 Moderna Unknown 01/24/2022 Administered Fluzone High Dose (65yr and older) [...] (65yr and older) IM Intramuscular 07/15/2025 Administered Fluzone Quad (6months&older) IM Intramuscular 08/06/2019 Administered H1N1 flu vaccine IM Intramuscular 09/13/2009 Administered PNEUMOVAX 23 VACCINE IM Intramuscular 07/12/2023 Administe red Prevnar (PCV13) IM Intramuscular 05/14/2020 Administered Tetanus Tdap-Adacel (over 7yrs) IM Intramuscular 01/07/2008 Administered Tetanus Tdap-Adacel (over 7yrs) IM Intramuscular 09/03/2018 Administered xFlu shot-36 months and older IM Intramuscular 08/31/2009 Administered Problems Problem Type SNOMED Code ICD Code Onset Dates Problem Status W/U Status Risk Notes Problem Essential hypertension (92540691) Essential (primary) hypertension (I10) Active confirmed Problem Essential hypertension (01834507) Essential hypertension (I10) Active confirmed Problem Gout attack (001896999) Gout attack (M10.9) Active confirmed Problem Rhinitis (46065339) Rhinitis (J31.0) Active con firmed Problem Osteopenia (379456590) Osteopenia (M85.80) Active confirmed Problem Altered mental statu s (347781838) Altered mental state (R41.82) Active confirmed Problem Environmental allerg y (254112035) Environmental allergies (Z91.048) Active confirmed Problem Memory loss (53144074) Memory loss (R41.3) Active confirmed Problem Hypomagnesemia (990046457) Hypomagnesemia (E83.42) Active confirmed Problem Inflammatory polyarthropathy (047586924) 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) Active confirmed Problem Polymyalgia rheumatica (33980949) Polymyalgia rheumatica (M35.3) Active confirmed Problem Ataxic gait (90027115) Ataxic gait (R26.0) Active confirmed Problem Acquired hypothyroidism (504950012) Acquired hypothyroidism (E03.9) Active confirmed Problem Neck pain (53892467) Neck pain (M54.2) Active c onfirmed Problem Paresthesia (finding ) (45728458) Paresthesias (R20.2) Active confirmed Problem History of circulatory system disease (475654980) 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) Active confirmed Problem Muscle spasm (33359793) Muscle spasm (M62.838) Active confirmed Problem Rheumatoid arthritis (50342947) Rheumatoid arthritis (M06.9) Active confirmed Problem Sleep disorder (54362751) Sleep disorder (G47.9) Active confirmed Problem Cervical disc disorder (271793563) DDD (degenerative disc disease), cervical (M50.30) Active confirmed Problem Primary osteoarthritis (400716024) Primary osteoarthritis (M19.91) Active confirmed Problem Dyslipidemia (673749341) Dyslipidemia (E78.5) Active confirmed Problem Leukocytosis (443094817) Leukocytosis, unspecified (D72.829) Active confirmed Problem Atherosclerotic hear t disease of [place] coronary artery without angina pectoris (380342917949911) Atherosclerosis of [place] coronary artery without angina pectoris, unspecified whether [place] or transplanted heart (I25.10) Active confirmed Problem Impairment of balanc e (972534887) Balance problem (R26.89) Active confirmed Problem Anemia (882043189) Mild anemia (D64.9) Active c onfirmed Problem Rheumatoid arthritis (64482719) Rheumatoid arthritis, involving unspecified site, unspecified whether rheumatoid factor present (M06.9) Active confirmed Problem Sialodocholithiasis (73975258) Sialodocholithiasis (K11.5) Active confirmed Vital Signs Heart Rate 76 /min 06/16/2025 Respiratory Rate 20 /min 03/31/2025 Blood pressure diastolic 70 mm Hg 06/16/2025 Height 65 in 06/16/2025 Blood pressure systolic 114 mm Hg 06/16/2025 Weight 152.2 lbs 06/16/2025 BMI 25.32 kg/m2 06/16/2025 Encounters Encounter Location Date Provider Diagnosis [facility] [address] [place] [id number] 08/14/2024 R John Melissa URI (upper respirato ry infection) J06.9 ; Urinary retention R33.9 ; Encounter for immunization Z23 and Dependent edema R60.9 [facility] [address] [place] [id number] 09/30/2024 R John Melissa Leg edema R60.0 ; Hypokalemia E87.6 and Pain of hand, unspecified laterality M79.643 [facility] [address] [place] [id number] 11/13/2024 R John Melissa Chronic diarrhea K52 .9 and Rheumatoid arthritis, involving unspecified site, unspecified whether rheumatoid factor present M06.9 [facility] [address] [place] [id number] 12/12/2024 Oneida Edwards Open wound of right lower extremity, initial encounter S81.801A [facility] [address] [place] [id number] 12/25/2024 R John Melissa Rheumatoid arthritis M06.9 [facility] [address] [place] [id number] 02/05/2025 R John Melissa Acute sinusitis J01. 90 ; Inflammatory polyarthropathy M06.4 ; Polymyalgia rheumatica M35.3 ; Acquired hypothyroidism E03.9 ; Dyslipidemia E78.5 ; Essential hypertension I10 and BMI 24.0-24.9, adult Z68.24 [facility] [address] [place] [id number] 02/17/2025 R John Melissa Glossitis K14.0 ; Shoulder pain M25.519 and BMI 24.0-24.9, adult Z68.24 [address] [place] [id number] 03/31/2025 Marie Helm Polymyalgia rheumati ca M35.3 ; Rib fractures S22.39XA ; Acquired hypothyroidism E03.9 ; Dyslipidemia E78.5 ; Essential hypertension I10 ; Nausea R11.0 ; Leg edema R60.0 ; Hx of arteriosclerotic cardiovascular disease Z86.79 ; Accidental fall, subsequent encounter W19.XXXD ; Sleep disorder G47.9 and Hypokalemia E87.6 [facility] [address] [place] [id number] 04/09/2025 R John Melissa Hyponatremia E87.1 ; Rib fractures S22.39XA ; Chronic diarrhea K52.9 and BMI 23.0-23.9, adult Z68.23 [facility] [address] [place] [id number] 04/16/2025 R John Melissa Acute sinusitis J01. 90 ; Adhesive capsulitis of left shoulder M75.02 ; Dyslipidemia E78.5 ; Rib fractures S22.39XA ; Leg edema R60.0 and Onychomycosis B35.1 [facility] [address] [place] [id number] 05/07/2025 R John Melissa Inflammatory polyarthropathy M06.4 [facility] [address] [facility] [address] [place], [place] [id number] 05/19/2025 R John Melissa Hyponatremia E87.1 ; Muscle weakness M62.81 and BMI 23.0-23.9, adult Z68.23 [facility] [address] [facility] [address] [place] [id number] 05/26/2025 R John Melissa Hyponatremia E87.1 ; Memory loss R41.3 and BMI 24.0-24.9, adult Z68.24 [facility] [address] [place], [place] [id number] 05/28/2025 R John Melissa Altered mental state R41.82 [facility] [address] [facility] [address] [place], [place] [id number] 06/16/2025 R John Melissa Rheumatoid arthritis M06.9 ; Leg edema R60.0 and Hyponatremia E87.1 [facility] [address] [facility] [address] [place] [id number] 07/15/2025 R John Melissa Encounter for immunization Z23 [facility] [address] [facility] [address] [place] [id number] 07/24/2025 R John Melissa [facility] [address] [facility] [address] [place] [id number] 08/01/2024 Channing Aurora Fracture of pelvis S32.9XXA [facility] [address] [facility] [address] [place] [id number] 08/04/2024 R John Melissa [facility] [address] [facility] [address] [place] [id number] 08/18/2024 R John Melissa Encounter for other general examination Z00.8 [facility] [address] [facility] [address] [place] [id number] 08/20/2024 R John Melissa [facility] [address] [facility] [address] [place] [id number] 08/21/2024 R John Melissa Rib fractures S22.39 XA [facility] [address] [place] [id number] 08/26/2024 R John Melissa [facility] [address] [place] [id number] 09/04/2024 R John Melissa Fracture of pelvis S32.9XXA [facility] [address] [place] [id number] 09/22/2024 R John Melissa Rib fractures S22.39 XA [facility] [address] [place] [id number] 10/01/2024 R John Melissa [facility] [address] [place] [id number] 10/08/2024 R John Melissa [facility] [address] [place] [id number] 10/23/2024 R John Melissa Leg edema R60.0 [facility] [address] [place] [id number] 11/18/2024 R John Melissa Rib fractures S22.39 XA [facility] [address] [place] [id number] 11/25/2024 R John Melissa [facility] [address] [place] [id number] 12/12/2024 R John Melissa Chronic diarrhea K52 .9 [facility] [address] [place] [id number] 12/17/2024 R John Melissa Rib fractures S22.39 XA [facility] [address] [place] [id number] 12/26/2024 R John Melissa [facility] [address] [place] [id number] 2024 R John Melissa Chronic diarrhea K52 .9 [facility] [address] [place] [id number] 01/06/2025 R John Melissa [facility] [address] [place] [id number] 01/13/2025 R John Melissa Rib fractures S22.39 XA [facility] [address] [place] [id number] 01/21/2025 R John Melissa [facility] [address] [place] [id number] 01/30/2025 R John Melissa Rib fractures S22.39 XA [facility] [address] [place] [id number] 02/02/2025 R John Melissa [facility] [address] [place] [id number] 02/04/2025 R John Melissa Chronic diarrhea K52 .9 [facility] [address] [place] [id number] 02/16/2025 R John Melissa Rib fractures S22.39 XA [facility] [address] [place] [id number] 03/02/2025 Marie Helm Rib fractures S22.39 XA [facility] [address] [place] [id number] 03/16/2025 R John Melissa [facility] [address] [place] [id number] 03/23/2025 R John Melissa [facility] [address] [place] [id number] 04/02/2025 R John Melissa [facility] [address] [place] [id number] 04/07/2025 R John Melissa Leg edema R60.0 [facility] [address] [place] [id number] 04/09/2025 R John Melissa Leg edema R60.0 [facility] [address] [place] [id number] 04/10/2025 R John Melissa [facility] [address] [place] [id number] 04/13/2025 R John Melissa [facility] [address] [place] [id number] 04/13/2025 R John Melissa Acquired hypothyroid ism E03.9 [facility] [address] [place] [id number] 04/14/2025 R John Melissa [facility] [address] [place] [id number] 04/19/2025 R John Melissa Screening for osteoporosis Z13.820 [facility] [address] [place] [id number] 04/20/2025 R John Melissa [facility] [address] [place] [id number] 04/22/2025 R John Melissa Nausea R11.0 [facility] [address] [place] [id number] 05/06/2025 R John Melissa Hypokalemia E87.6 [facility] [address] [place] [id number] 05/26/2025 R John Melissa [facility] [address] [place] [id number] 05/29/2025 Oneida Crowdy [facility] [address] [place] [id number] 06/02/2025 R John Melissa [facility] [address] [place] [id number] 06/02/2025 R John Melissa [facility] [address] [place] [id number] 06/09/2025 R John Melissa [facility] [address] [place] [id number] 06/09/2025 R John Rodriguesfleet [facility] [address] [facility] [address] [place] [id number] 06/18/2025 R John Yepezeet Leg edema R60.0 [facility] [address] [facility] [address] [place] [id number] 06/25/2025 R John Melissa [facility] [address] [place] [id number] 07/06/2025 R John Yepezeet Assessments Encounter Date Diagnosis (ICD Code) Assessment Notes Treatment Notes Treatment Clinical Notes Section Notes 06/16/2025 Leg edema (ICD-10 - R60.0) 06/16/2025 Rheumatoid arthritis (ICD-10 - M06.9) 02/05/2025 Acute sinusitis (ICD-10 - J01.90) 02/05/2025 Inflammatory polyarthropathy (ICD-10 - M06.4) 02/04/2025 Chronic diarrhea (ICD-10 - K52.9) 01/30/2025 Rib fractures (ICD-10 - S22.39XA) 01/13/2025 Rib fractures (ICD-10 - S22.39XA) 09/30/2024 Hypokalemia (ICD-10 - E87.6) 09/30/2024 Leg edema (ICD-10 - R60.0) 09/22/2024 Rib fractures (ICD-10 - S22.39XA) 09/04/2024 Fracture of pelvis (ICD-10 - S32.9XXA) 08/01/2024 Fracture of pelvis (ICD-10 - S32.9XXA) 07/15/2025 Encounter for immunization (ICD-10 - Z23) 08/14/2024 URI (upper respiratory infection) (ICD-10 - J06.9) 08/14/2024 Urinary retention (ICD-10 - R33.9) 08/18/2024 Encounter for other general examination (ICD-10 - Z00.8) 08/21/2024 Rib fractures (ICD-10 - S22.39XA) 10/23/2024 Leg edema (ICD-10 - R60.0) 11/13/2024 [...] M06.9) 2024 Chronic diarrhea (ICD-10 - K52.9) 02/16/2025 Rib fractures (ICD-10 - S22.39XA) 02/17/2025 Shoulder pain (ICD-10 - M25.519) 02/17/2025 Glossitis (ICD-10 - K14.0) 03/02/2025 Rib fractures (ICD-10 - S22.39XA) 03/31/2025 Polymyalgia rheumatica (ICD-10 - M35.3) 03/31/2025 Rib fractures (ICD-10 - S22.39XA) pt feels so much better; she is able to walk freely with her walker; will continue with PT until she goes home 04/07/2025 Leg edema (ICD-10 - R60.0) 04/09/2025 Hyponatremia (ICD-10 - E87.1) 04/09/2025 Rib fractures (ICD-10 - S22.39XA) 05/28/2025 Altered mental state (ICD-10 - R41.82) 06/18/2025 Leg edema (ICD-10 - R60.0) 04/09/2025 Leg edema (ICD-10 - R60.0) 04/13/2025 Acquired hypothyroidism (ICD-10 - E03.9) 04/16/2025 Acute sinusitis (ICD-10 - J01.90) 04/16/2025 Adhesive capsulitis of left shoulder (ICD-10 - M75.02) 04/19/2025 Screening for osteoporosis (ICD-10 - Z13.820) 04/22/2025 Nausea (ICD-10 - R11.0) 05/06/2025 Hypokalemia (ICD-10 - E87.6) 05/07/2025 Inflammatory polyarthropathy (ICD-10 - M06.4) 05/19/2025 Hyponatremia (ICD-10 - E87.1) 05/19/2025 Muscle weakness (ICD-10 - M62.81) 05/26/2025 Hyponatremia (ICD-10 - E87.1) 05/26/2025 Memory loss (ICD-10 - R41.3) 05/26/2025 BMI 24.0-24.9, adult (ICD-10 - Z68.24) 05/19/2025 BMI 23.0-23.9, adult (ICD-10 - Z68.23) 04/16/2025 Dyslipidemia (ICD-10 - E78.5) 04/09/2025 Chronic diarrhea (ICD-10 - K52.9) 03/31/2025 Acquired hypothyroidism (ICD-10 - E03.9) 02/17/2025 BMI 24.0-24.9, adult (ICD-10 - Z68.24) 08/14/2024 Encounter for immunization (ICD-10 - Z23) 06/16/2025 Hyponatremia (ICD-10 - E87.1) 09/30/2024 Pain of hand, unspecified laterality (ICD-10 - M79.643) 02/05/2025 Polymyalgia rheumatica (ICD-10 - M35.3) 02/05/2025 Acquired hypothyroidism (ICD-10 - E03.9) 08/14/2024 Dependent edema (ICD-10 - R60.9) Advised to elevate legs above level heart is much as possible. Recommend compression socks or Ezequiel bandages as needed. Keep follow-up appoint with cardiology. 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) 03/31/2025 Accidental fall, subsequent encounter (ICD-10 - W19.XXXD) 03/31/2025 Sleep disorder (ICD-10 - G47.9) 03/31/2025 Hypokalemia (ICD-10 - E87.6) 03/31/2025 Other she does plan to go home Plan Of Treatment Pending Test Test Name Order Date Bone density 04/19/2025 CT Scan : Hip, right, without contrast 0 05/01/2024 P-Cortisol AM 04/09/2025 Next Appt Details Provider Name:Raul John Conti renetta, 08/04/2025 02:30:00 PM, [address] [facility], [address], [place], [place], [id number], Insurance Providers Payer Name Payer Address Payer Phone Subscriber Number Group Number Insured Name Patient Relationship to Insured Coverage Start Date Coverage End Date MEDICARE PART B [address] [address] [place] Bob [id number] KWASI HUYNH Self - patient is the insured [employer] [place] [address] [id number] KWASI HUYNH Self - patient is the insured Medications Administered Medication Instructions Date of Administration Dosage Notes Benadryl 10/21/2018 .25 mL depo medrol 80 mg 05/07/2025 1.5 mL Depo- Medrol 40 mg/ml 12/08/2013 [...] 03/11/2024 1 mL Depo- Medrol 40 mg/ml 09/30/2024 1 mL Depo- Medrol 40 mg/ml 11/13/2024 1 mL Depo- Medrol 40 mg/ml 12/25/2024 1 mL Depo- Medrol 40 mg/ml 04/09/2025 1 mL Depo- Medrol 40 mg/ml 06/16/2025 1 mL Dexamethasone 12/01/2013 1 mL Dexamethasone 12/16/2018 1 mL Dexamethasone 03/07/2019 1 mL Dexamethasone 03/10/2019 1 mL Dexamethasone 12/19/2019 1 mL Dexamethasone 03/16/2022 1 mL Dexamethasone 11/20/2023 1 mL Dexamethasone 12/18/2023 1.5 mL Dexamethasone 02/05/2025 1.5 mL Dexamethasone 04/16/2025 1 mL phenergan 25 mg/ml 11/29/2023 25 mg Medical (General) History Medical History History ICD Code hyperlipidemia-followed by Dr. Arrington hypertension Hypothyroidism/goiter kidney stones allergic rhinitis ASCVD: [place] - 09/2013-followed by Dr. Arrington q 6 months cataracts Hyperuricemia Inflammatory arthritis - Dr. Cheng polymyalgia rheumatica - Dr. Skylar Bhatia Covid vaccine x2 Nov 2020 Surgical History Surgery Date(Month/Year) Thyroidectomy/Goiter removal 1999 Back 2001 Total Hysterectomy 1992 Tonsillectomy child Cardiac Stent Placed-[facility]-Dr Arrington. Dr. Santo 10/19/2013 Cataract 10/2017 Hospitalization History Reason Date(Month/Year) [facility] : fall with multiple FX ribs on the right; hyponatremia and hypokalemia 03/12-03/15/2025 Dehydration, Failure to Thrive, Acute Ur inary Retention- [facility] 07/14- Multiple rib and pelvic frac tures; hyponatremia; rheumatoid arthritis; ASCVD- 06/30- Itching, Swelling in Hands- [facility] ER 10/21 Facial Pain, Sinus Blockage- [facility] ER 01/2018 Heart Attack- [facility] 09/2013 kidney stones 1993
--- OUTSIDE RECORDS SUMMARY | 2025-07-25 08:41 | XMS_ITS | Clinical Summary ---
Author Organization [facility] Address [address] [place] [address] Phone Care Team Providers Care Bakery Technician Name Role Phone Unavailable Primary Care Provider [...] Height 167.6 cm (5' 6 ) 04/09/2023 7:5 6 PM EDT Body Mass Index 24.37 04/09/2023 7:56 PM EDT Plan of Treatment Health Maintenance Due Date Last Done Comments Wellness Exam Medicare 1948 Hepatitis C Screening 1964 Zoster (1 of 2) 1996 Bone Density Screening 01/01/2012 Pneumococcal Vaccine 50+ (2 of 2 - PCV20 or PCV21) 05/14/2021 05/14/2020 RSV or 60+ (1 - 1-dose 75+ series) 2021 COVID-19 Vaccine ( - season) 2025 09/05/2022, 01/24/2022, 06/17/2021, Additional history exists Influenza Vaccine (#1) 2025 , 07/26/2021, 07/12/2020, Additional history exists DTaP/TDaP/Td (3 - Td or Tdap) 04/09/2033 04/09/2023, 09/03/2018 Hepatitis B Vaccine Aged Out No longe r eligible based on patient's age to complete this topic Meningococcal B Vaccine Aged Out No l onger eligible based on patient's age to complete this topic Insurance MEDICARE IN PART A AND B MEDICARE IN PART A AND B [facility]
--- NOTE | 2025-07-25 08:45 | CT_ITS ---
PROCEDURE INFORMATION: Exam: CT Abdomen And Pelvis With Contrast Exam date and time: 07/25/2025 10:18 AM Age: 79 years old Clinical indication: Abdominal pain; Additional info: Abdominal pain, diarrhea TECHNIQUE: Imaging protocol: Computed tomography of the abdomen and pelvis with contrast. Radiation optimization: All CT scans at this facility use at least one of these dose optimization techniques: automated exposure control; mA and/or kV adjustment per patient size (includes targeted exams where dose is matched to clinical indication); or iterative reconstruction. Contrast material: ISOVUE; Contrast volume: 75 ml; Contrast route: IV; COMPARISON: CT ABDOMEN PELVIS W CON 07/20/2025 7:19 AM FINDINGS: Lungs: There is mild compressive atelectasis of the lung bases. Pleural spaces: There are small dependent bilateral pleural effusions. Heart: There is mild cardiomegaly. Coronary arteries: There are severe atherosclerotic calcifications of the coronary arteries. Liver: Liver is unremarkable. Gallbladder and biliary ducts: The gallbladder and biliary tree are unremarkable. Pancreas: Mild diffuse atrophy of the pancreas. The pancreatic duct is normal in size. Spleen: There are calcified splenic granulomas. Adrenal glands: The adrenal glands are unremarkable. Kidneys and ureters: There are small less than 1 cm in size simple appearing renal cysts of both kidneys. Stomach and bowel: There is liquid stool in the colon. The colon is otherwise unremarkable. The bowel is otherwise unremarkable. Appendix: Not visible. No secondary signs of appendicitis. Intraperitoneal space: Unremarkable. No free air. No significant fluid collection. Vasculature: Mildly prominent pulmonary vessels of the lung bases. The vasculature is unremarkable. No abdominal aortic aneurysm. Lymph nodes: Unremarkable. No enlarged lymph nodes. Urinary bladder: The urinary bladder is overly distended with urine, but otherwise unremarkable. Reproductive: Status post hysterectomy. Bones/joints: There are chronic fracture deformities of the left and right superior and inferior pubic rami. There is diffuse osteopenia. There is moderate spondylosis. Soft tissues: The soft tissues are unremarkable. IMPRESSION: 1. Liquid stool in the colon consistent with history of diarrhea. The colon is otherwise unremarkable. 2. Over distended urinary bladder. The urinary bladder is otherwise unremarkable. 3. Otherwise no acute abdominal or pelvic pathology. 4. Findings of congestive heart failure with small dependent bilateral pleural effusions. COMMENTS: Consistent with the [employer]'s Incidental Findings Committee white paper (J Am Dejah Radiol 2018): Any incidental renal lesion less than 1 cm or classified as too small to characterize, or any incidental cystic renal lesion characterized as simple-appearing, is likely benign. No follow-up imaging is recommended for these lesions per consensus recommendations based on imaging criteria.
[2025-07-25] MEDS: ONDANSETRON 4MG/2ML VIAL 4 MG IV ×2 (08:50→20:28)
[2025-07-25 09:00] LABS: Hematocrit 38.4 % (37.0-47.0); Hemoglobin 13.4 g/dL (12.2-16.2); Immature Granulocytes % 0.9 %; Mean Corpuscular HGB Conc 34.9 g/dL (31.8-35.4); Mean Corpuscular Hemoglobin 33.3 pg (27.0-31.2); Mean Corpuscular Volume 95.5 fl (81-99); Nucleated Red Blood Cells % 0 %; Platelet Count 297 K/mm3 (142-424); Red Blood Count 4.02 M/mm3 (4.20-5.40); Red Cell Distribution Width-SD 45.1 fL; White Blood Count 13.3 K/mm3 (4.8-10.8)
--- NOTE | 2025-07-25 09:11 | HMH.EDGENADL ---
Discharge Plan Disposition Patient Disposition: Admitted Condition: Fair Prescriptions Prescriptions: No Action hydroxychloroquine 200 mg tablet 200 mg PO DAILY levothyroxine 112 MCG tablet 112 mcg PO DAILYDM carvedilol 12.5 mg tablet 12.5 mg PO BID potassium chloride 10 mEq Capsule, Extended Release 10 meq PO BID Qty: 60 4RF pravastatin 40 mg Tablet 40 mg PO HS Qty: 30 0RF tamsulosin 0.4 mg capsule 0.4 mg PO HS spironolactone 25 mg Tablet 25 mg PO DAILY Qty: 30 0RF melatonin 3 mg Tablet 3 mg PO HSP acetaminophen 500 mg Tablet 500 mg PO Q6HP PRN (Reason: Mild Pain (Scale Score 1-4)) tramadol 50 mg Tablet 50 mg PO Q6HP PRN (Reason: Moderate Pain (Scale Score 5-6)) cyclobenzaprine 5 mg Tablet 5 mg PO HSP PRN (Reason: muscle spasms) cefdinir 300 mg capsule 300 mg PO BID Referrals Follow up/Referrals: Channing Garcia MD [Primary Care Provider, Medical] - See instructions Clinical Impressions Clinical Impression: Non-ST elevation OR (NSTEMI), Weakness, Diarrhea, Hypomagnesemia, Acute hyponatremia Print Language Print Language: South African Discharge ED Provider: Jose Daly Adult HPI General Chief complaint: Nausea/Vomiting/Diarrhea Stated complaint: Vomiting, Diarreah, & Weakness Time Seen by Provider: 07/25/25 08:26 Mode of Arrival: Ambulatory Source of Information: Patient and Spouse Description of Symptoms (Recalled from ER Triage Doc. by RN): PATIENT PRESENTS TO ED FOR NAUSEA, VOMITING, AND DIARRHEA THAT BEGAN YESTERDAY EVENING. PT DISCHARGED FROM THIS HOSPITAL YESTERDAY AND SENT HOME ON ANTIBIOTICS. STATES SHE IS HAVING A REACTION TO THE MEDS. DENIES PAIN ANYWHERE. PT APPEARS UNWILLING TO SPEAK WITH STAFF EXCEPT FOR A FEW WORDS. FAMILY AT BEDSIDE. History of Present Illness HPI narrative: This is a 79-year-old female patient, with past medical history of hyperlipidemia, hypothyroidism, kidney stones, CAD with prior OR, and cognitive decline, who is presenting to the emergency department today for evaluation of nausea, vomiting, and diarrhea. Patient was recently admitted to the hospital and discharged yesterday evening. Admission was for very similar symptoms with significant electrolyte derangements of hyponatremia, hypokalemia, and hypomagnesemia. She was also diagnosed with a urinary tract infection that grew Morganella Morganii and was treated with Rocephin while inpatient. At the time of discharge the patient had been successfully treated for her urinary tract infection and her electrolyte derangements were corrected with the exception of hyponatremia. She was ambulatory with her walker. Since discharge home she has become progressively weaker and has been unable to stand or walk independently on her own. She has also had significant nausea and vomiting as well as diarrhea. Family estimates too numerous episodes to count. She is not having hematochezia, melena, or hematemesis. They also state that while she does have cognitive decline at baseline she seems to be a bit more confused than usual. Related Data Home Medications ?Medication ?Instructions ?Recorded ?Confirmed levothyroxine 112 mcg tablet 112 mcg PO DAILYDM 04/24/18 07/25/25 hydroxychloroquine 200 mg tablet 200 mg PO DAILY 05/11/22 07/25/25 acetaminophen 500 mg tablet 500 mg PO Q6HP PRN Mild Pain 07/15/24 07/25/25 (Scale Score 1-4) cyclobenzaprine 5 mg tablet 5 mg PO HSP PRN muscle spasms 07/15/24 07/25/25 melatonin 3 mg tablet 3 mg PO HSP Insomnia 07/15/24 07/25/25 tramadol 50 mg tablet 50 mg PO Q6HP PRN Moderate Pain 07/15/24 07/25/25 (Scale Score 5-6) carvedilol 12.5 mg tablet 12.5 mg PO BID 03/12/25 07/25/25 tamsulosin 0.4 mg capsule 0.4 mg PO HS 07/20/25 07/25/25 cefdinir 300 mg capsule 300 mg PO BID 07/25/25 07/25/25 Previous Rx's ?Medication ?Instructions ?Recorded potassium chloride 10 mEq 10 meq PO BID #60 caps 03/15/25 capsule,extended release pravastatin 40 mg tablet 40 mg PO HS #30 tabs 03/15/25 spironolactone 25 mg tablet 25 mg PO DAILY #30 tabs 07/24/25 Allergies Allergy/AdvReac Type Severity Reaction Status Date / Time Sulfa (Sulfonamide Allergy Unknown Hives Verified 07/20/25 06:46 Antibiotics) (SULFA (SULFONAMIDE ANTIBIOTICS)) codeine Allergy Vomiting Verified 07/20/25 06:46 Penicillins Allergy Hives Verified 07/20/25 06:46 hydrocodone AdvReac Other Verified 07/20/25 06:46 [facility] Disclaimer: The information contained in this section may have been updated after the patient was seen, as this information can be updated by other users. 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 Hyponatremia Abnormal weight loss Anorexia Hypoglycemia Postobstructive diuresis Acute urinary retention Adult failure to thrive Nausea Multiple fractures of pelvis with disruption of pelvic ring Hypochloremia Falls Trochanteric bursitis, right hip Skin tear of left upper extremity Contusion of elbow, left Contusion of hip, left Trochanteric bursitis, left hip Closed fracture of greater trochanter of femur Pain around toenail, right foot Ingrown toenail of right foot Closed nondisplaced fracture of fifth right metatarsal bone MARY (acute kidney injury) Enteritis Hypothyroidism Foot fracture, right Polymyalgia rheumatica syndrome History of back pain History of left heart catheterization Hyperlipidemia Hypertension Cataract COVID-19 Closed fracture of fourth metatarsal of right foot Nondisplaced fracture of fifth right metatarsal bone with routine healing Myocardial infarction HLD (hyperlipidemia) CAD (coronary artery disease) Rheumatoid arthritis Surgical History H/O cataract removal with insertion of prosthetic lens History of heart artery stent Previous back surgery H/O thyroidectomy History of appendectomy History of hysterectomy History of tonsillectomy Family History Heart attack Cancer Hypertension Social History Smoking Status: Former smoker tobacco type: cigarettes packs per day: 1 pack-years: 46 years smoked: 40 how long ago did patient quit smokin years alcohol intake: never substance use type: denies use current occupational status: retired Travel in the last 8 weeks?: None caregiver/support person: Yes () household members: spouse housing: house marital status: 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 needs: No Have you lived/traveled outside US in past 30 days?: No Contact w/someone who lives/traveled outside US past 30 days?: No Exposure to someone with infectious disease in past 14 days?: No Do you have a fever (greater than 100.4 F or 38 C)?: No Have you tested positive for COVID-19?: No Exposed to someone with COVID-19 in past 14 days?: No Do you have a sore throat?: No Do you have a cough?: No Do you have any weakness?: No Do you have any diarrhea?: No Are you experiencing any unusual bleeding?: No Do you have any muscle aches/pain?: No Do you have any abdominal pain?: No Are you experiencing loss of taste or smell?: No Other Medical History Have you received the Flu Vaccine for this season: No Have you received the Pneumonia Vaccine: No ROS Obtained: Yes Systems reviewed as appropriate & no additional complaints except as documented Physical Exam General General appearance: other (See MDM) Respiratory Respiratory exam: Present other (See MDM) Cardiovascular Cardiovascular exam: Present other (See MDM) Neurological Exam Neurological exam: Present other (See MDM) Medical Decision Making Medical Records Medical records reviewed: Yes I reviewed the patient's medical records. Screening: Per USPSTF and CDC recommendations, given the prevalence of disease in our region, it is our hospital?s policy to screen for HIV and viral Hepatitis for all patients aged 18 and over and those with ongoing risk factors. Michael Inquiry Pt receiving controlled substance: No Michael was queried for this patient: No Vital Signs: 07/25/25 08:21 07/25/25 08:30 07/25/25 08:30 Temperature 99.5 F 99.5 F Temperature Source Oral Pulse Rate 97 H 90 Pulse Rate [Right] 90 Respiratory Rate 16 20 20 Blood Pressure 147/90 H 147/90 H Blood Pressure [Left Arm] 147/90 H Blood Pressure Mean Blood Pressure Mean [Left Arm] 109 02 Sat by Pulse Oximetry 94 L 93 L 93 L Oxygen Delivery Method Room Air 07/25/25 08:30 07/25/25 09:00 07/25/25 09:30 Temperature Temperature Source Pulse Rate 91 H 88 89 Pulse Rate [Right] Respiratory Rate 20 17 16 Blood Pressure 143/85 H 154/93 H 146/89 H Blood Pressure [Left Arm] Blood Pressure Mean 106 Blood Pressure Mean [Left Arm] 02 Sat by Pulse Oximetry 94 L 95 95 Oxygen Delivery Method Room Air Room Air 07/25/25 10:00 07/25/25 10:30 07/25/25 11:00 Temperature Temperature Source Pulse Rate 95 H 100 H 89 Pulse Rate [Right] Respiratory Rate 16 22 18 Blood Pressure 159/96 H 150/94 H 147/84 H Blood Pressure [Left Arm] Blood Pressure Mean 108 104 Blood Pressure Mean [Left Arm] 02 Sat by Pulse Oximetry 95 92 L 95 Oxygen Delivery Method Room Air 07/25/25 11:30 07/25/25 12:00 07/25/25 12:30 Temperature Temperature Source Pulse Rate 90 94 H 87 Pulse Rate [Right] Respiratory Rate 20 16 16 Blood Pressure 143/99 H 135/79 130/78 Blood Pressure [Left Arm] Blood Pressure Mean 113 101 Blood Pressure Mean [Left Arm] 02 Sat by Pulse Oximetry 96 95 96 Oxygen Delivery Method Room Air Lab Data Lab Results 07/25/25 08:25: WBC 13.3 H D, RBC 4.02 L, Hgb 13.4, Hct 38.4, MCV 95.5, MCH 33.3 H, MCHC 34.9, RDW 12.7, Plt Count 297 D, MPV 9.8, Neut % (Auto) 90.8 H, Lymph % (Auto) 2.8 L, [place] % (Auto) 4.3, Eos % (Auto) 0.6, Baso % (Auto) 0.6, Neut # (Auto) 12.1 H, Lymph # (Auto) 0.4 L, [place] # (Auto) 0.6, Eos # (Auto) 0.1, Baso # (Auto) 0.1, Total Counted 100, Neutrophils % (Manual) 90 H, Lymphocytes % (Manual) 6 L, Monocytes % (Manual) 4, Platelet Estimate Normal, RBC Morphology Normal, Sodium 123 L, Potassium 3.6, Chloride 88 L, Carbon Dioxide 23, Anion Gap 15.6 H, BUN 7, Creatinine 0.80, Estimated Creat Clear 50, Estimated GFR 69, Est GFR ( Amer) 84, Glucose 119 H, Calcium 9.3, Magnesium 1.4 L, Total Bilirubin 0.8, AST 31, ALT 21, Alkaline Phosphatase 121, Total Creatine Kinase 74, Troponin I 0.17 H, Total Protein 7.0, Albumin 3.9, Globulin 3.1, Albumin/Globulin Ratio 1.3, Lipase 129, TSH 3.73, Free T4 1.51 07/25/25 11:07: Troponin I 0.18 H 07/25/25 08:25 07/25/25 08:25 Orders (Tests/Meds): ED MEDICATIONS Generic Name Dose Route Start Last Admin Trade Name Freq PRN Reason Stop Dose Admin Magnesium Sulfate 2 gm in 50 mls @ 50 mls/hr 07/25/25 13:21 Magnesium Sulfate 2gm/50ml Premix IV 07/25/25 14:20 ONCE ONE Ondansetron HCl 4 mg 07/25/25 13:21 Ondansetron 4mg/2ml Vial IV 08/24/25 13:20 Q6HP PRN Nausea Sodium Chloride 10 ml 07/25/25 10:21 07/25/25 10:22 Sodium Chloride 0.9% 10ml Syr (Rad Only) IV 08/24/25 10:20 10 ml NEEDED PRN Administration Maintain IV Site Discontinued Medications Generic Name Dose Route Start Last Admin Trade Name Freq PRN Reason Stop Dose Admin Aspirin 325 mg 07/25/25 10:00 07/25/25 10:23 Aspirin 325mg Tablet PO 07/25/25 10:01 325 mg ONCE ONE Administration Iopamidol 75 ml 07/25/25 10:21 07/25/25 10:22 Iopamidol-370 (76%);100ml Bottle IV 07/25/25 10:22 75 ml ONCE ONE Administration Ondansetron HCl 4 mg 07/25/25 08:45 07/25/25 08:50 Ondansetron 4mg/2ml Vial IV 07/25/25 08:46 4 mg ONCE ONE Administration ORDERS Category Date Time Status CT abdomen pelvis w con Stat Cat Scan 07/25/25 08:45 Completed Cardiology Consult [Consult to Cardiology] [CONS] Cons 07/27/25 07:30 Active Routine CBC w/Auto Diff [Complete Blood Count Auto Diff] Stat Lab 07/25/25 08:25 Completed CK [Creatine Kinase] Stat Lab 07/25/25 08:25 Completed CMP [Comprehensive Metabolic Panel] Stat Lab 07/25/25 08:25 Completed Complete Blood Count Auto Diff AMLAB Lab 07/26/25 06:00 Ordered Comprehensive Metabolic Panel AMLAB Lab 07/26/25 06:00 Ordered Diarrhea 23 Panel, PCR Stat Lab 07/25/25 08:45 Ordered Free T4 (Free Thyroxine) Stat Lab 07/25/25 08:25 Completed Lipase Stat Lab 07/25/25 08:25 Completed Magnesium AMLAB Lab 07/26/25 06:00 Ordered Magnesium Stat Lab 07/25/25 08:25 Completed TSH [Thyroid Stimulating Hormone] Stat Lab 07/25/25 08:25 Completed Troponin I Q3H Lab 07/25/25 11:07 Completed Troponin I Q3H Lab 07/25/25 14:45 Ordered Troponin I Stat Lab 07/25/25 08:25 Completed Urinalysis and Microscopic Stat Lab 07/25/25 08:34 Ordered ECG Data Tracing #1: I reviewed this ECG and interpreted as documented below: EKG personally interpreted by me demonstrates normal sinus rhythm at a rate of 90 bpm, left axis, MD prolongation consistent with first-degree AV block, narrow QRS, no QTc prolongation. No ST segment elevation or depression. There are T wave inversions in lead III that are persistent from prior EKGs. There are also deep S waves in leads V1 and V2 that have been seen on prior EKGs as well. Medical Decision Narrative: In summary, this is a 79-year-old female patient who is presenting to the emergency department today for evaluation of nausea, vomiting, diarrhea, and weakness after being discharged from the hospital yesterday. She was admitted for electrolyte derangements including hypomagnesemia, hypokalemia, and hyponatremia and was also treated for a urinary tract infection with Rocephin while inpatient. Her past medical history consists of rheumatoid arthritis, coronary artery disease, hyperlipidemia, hypertension, hypothyroidism, and cognitive decline. On initial evaluation of the patient she was uncomfortable in appearance but was overall nontoxic. She is hemodynamically stable. She is grossly neurologically intact and is saturating well on room air. On physical examination she does have diffuse lower abdominal tenderness to palpation. Heart and lungs are clear to auscultation bilaterally. She does not have significant lower extremity erythema or edema. Differential diagnosis includes dehydration, acute kidney injury, electrolyte derangement, ACS/OR, colitis, diverticulitis, among other intra-abdominal catastrophes. Workup was initiated with hematologic labs as well as a CT scan of the abdomen pelvis. Labs personally interpreted by me demonstrate a leukocytosis of 13.3 with a neutrophilic shift. She remains at her hyponatremia baseline of 123. No evidence of hypokalemia. She has hypomagnesia mag with a magnesium of 1.4. No transaminitis or elevation of creatinine kinase. She does have a type II NSTEMI with a an initial troponin of 0.17 and a delta troponin of 0.18. I have reviewed initial EKG and obtain a delta EKG which shows no interval changes and no acute myocardial infarction. I have discussed this case with Dr. Bridges who is also reviewed her EKG and agrees that there is no evidence of acute myocardial infarction. CT scan was obtained and shows fluid-filled bowel consistent with diarrheal illness. No other acute findings. We have treated the patient with 325 mg of aspirin, 4 mg of Zofran, and 2 g of magnesium sulfate. This patient will necessitate admission to the hospital for weakness in the setting of an NSTEMI and a diarrheal illness. I have had an interactive discussion with the internal medicine service who has agreed to evaluate the patient the emergency department. After our discussion their evaluation they have agreed to admit the patient to their service and accept primary responsibility the patient moving forward. Critical Care Critical Care Time Critical Care Time: No
[2025-07-25 09:46] LABS: Troponin I 0.17 ng/ml (0.00-0.034)
[2025-07-25 09:50] LABS: Free T4 (Free Thyroxine) 1.51 ng/dl (0.78-2.19)
--- NOTE | 2025-07-25 10:02 | ECG_ITS ---
APPROVED REPORT Exam: Resting ECG HR:96 bpm ECG Measurements Heart Rate 96 AXES VT 172 P 34 QRSd 94 QRS 0 QT 339 T -8 QTc 392 Conclusion Sinus rhythm Normal intervals Normal axis T wave inversion in lead III unchanged from prior Deep S waves in the septal leads consistent with prior myocardial infarction No STEMI Electronically signed by : Jose Daly, 07/26/2025 07:29:55
[2025-07-25 10:03] LABS: Alanine Aminotransferase 21 U/L (12-78); Albumin Level 3.9 g/dl (3.5-5.0); Albumin/Globulin Ratio 1.3 (1.1-1.8); Alkaline Phosphatase 121 U/L (38-126); Anion Gap 15.6 mEq/L (5-15); Aspartate Amino Transferase 31 U/L (14-36); Bilirubin,Total 0.8 mg/dl (0.2-1.3); Blood Urea Nitrogen 7 mg/dl (7-17); Calcium 9.3 mg/dl (8.4-10.2); Carbon Dioxide 23 mmol/L (22.0-30.0); Chloride 88 mmol/L (98-107); Creatine Kinase 74 U/L (30-135); Creatinine Clearance Estimated 50 mL/min (50-200); Creatinine,Serum 0.80 mg/dl (0.52-1.04); Estimated Glomerular Filt Rate 69 ml/min (>60); GFR (African American) 84 ML/MIN (>60); Globulin 3.1 g/dL (1.3-3.2); Glucose 119 mg/dl (74-100); Lipase 129 U/L (23-300); Magnesium 1.4 mg/dl (1.6-2.3); Potassium 3.6 mmoL/L (3.5-5.1); Sodium 123 mmol/L (136-145); Total Protein,Serum 7.0 g/dl (6.3-8.2)
[2025-07-25 10:05] LABS: Thyroid Stimulating Hormone 3.73 uIU/mL (0.465-4.68)
--- NOTE | 2025-07-25 10:05 | PC.NURSE ---
pt going for CT at this time
--- NOTE | 2025-07-25 10:10 | PC.NURSE ---
Dr. Daly on the phone with Dr. Bridges for consult at this time.
[2025-07-25] MEDS: IOPAMIDOL-370 (76%);100ML BOTTLE 75 ML IV (10:22)
[2025-07-25] MEDS: SODIUM CHLORIDE 0.9% 10ML SYR (RAD ONLY) 10 ML IV (10:22)
--- NOTE | 2025-07-25 10:22 | PC.NURSE ---
pt back from CT at this time
[2025-07-25] MEDS: ASPIRIN 325MG TABLET 325 MG PO (10:23)
[2025-07-25 11:44] LABS: Troponin I 0.18 ng/ml (0.00-0.034)
[2025-07-25 12:02] LABS: Total Cells Counted 100
[2025-07-25 12:03] LABS: RBC Morphology Normal
--- NOTE | 2025-07-25 13:25 | EXP.HP ---
History of Present Illness *Admission Date: 07/25/25 *Reason for visit:: nausea, vomiting, diarrhea, weakness *History of present illness: Ms. Culp is a 79-year-old female who was just discharged yesterday from the hospital to finish oral treatment for UTI. She has a history significant for hyperlipidemia, hypothyroid, kidney stones, CAD with prior WI, cognitive decline over the past year or more. She presented to the ER today with concern for the development of nausea, vomiting, increased urinary frequency and diarrhea overnight. Got home last night and took her first dose of cefdinir. Developed multiple episodes of diarrhea. Was up urinating frequently per her . Denies fever. States she has become quite weak and needs significant assistance. Had evaluated for placement during last admission but showed some improvement during admission and patient elected to go home. On arrival to the ED, patient is globally weak. Has white count of 13.3. Kidney function normal with BUN 7, creatinine 0.8. Magnesium low at 1.4 and sodium low at 123 which appears to have some level of chronicity. Of concern, troponins elevated at 0.18 meaning criteria for NSTEMI. EKGs reviewed did not show manjinder ST elevation. Patient denying chest pain. Medicine consulted for further management of electrolyte disturbances, weakness, UTI and failure of outpatient therapy. On arrival to the floor, patient's belly is tender and appears to have a distended bladder. Answers questions appropriately but with brief answers and does not want to make eye contact. Denies chest pain or shortness of breath. States she has been falling over the past year at home. Has an abrasion on her left miller approximately the size of a quarter with skin tear of the epidermis. Family concerned about patient's decline and needing potential placement. Concern for difficulty being cared for at home. Would like therapy evals and reconsideration of placement. Patient on room air at this time. [facility] Disclaimer: The information contained in this section may have been updated after the patient was seen, as this information can be updated by other users. 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 Hyponatremia Abnormal weight loss Anorexia Hypoglycemia Postobstructive diuresis Acute urinary retention Adult failure to thrive Nausea Multiple fractures of pelvis with disruption of pelvic ring Hypochloremia Falls Trochanteric bursitis, right hip Skin tear of left upper extremity Contusion of elbow, left Contusion of hip, left Trochanteric bursitis, left hip Closed fracture of greater trochanter of femur Pain around toenail, right foot Ingrown toenail of right foot Closed nondisplaced fracture of fifth right metatarsal bone MARY (acute kidney injury) Enteritis Hypothyroidism Foot fracture, right Polymyalgia rheumatica syndrome History of back pain History of left heart catheterization Hyperlipidemia Hypertension Cataract COVID-19 Closed fracture of fourth metatarsal of right foot Nondisplaced fracture of fifth right metatarsal bone with routine healing Myocardial infarction HLD (hyperlipidemia) CAD (coronary artery disease) Rheumatoid arthritis Surgical History H/O cataract removal with insertion of prosthetic lens History of heart artery stent Previous back surgery H/O thyroidectomy History of appendectomy History of hysterectomy History of tonsillectomy Family History Other Cancer Heart attack Hypertension Social History Smoking Status: Former smoker tobacco type: cigarettes packs per day: 1 pack-years: 46 years smoked: 40 how long ago did patient quit smokin years alcohol intake: never substance use type: denies use current occupational status: retired Travel in the last 8 weeks?: None caregiver/support person: Yes () household members: spouse housing: house marital status: 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 needs: No Have you lived/traveled outside US in past 30 days?: No Contact w/someone who lives/traveled outside US past 30 days?: No Exposure to someone with infectious disease in past 14 days?: No Do you have a fever (greater than 100.4 F or 38 C)?: No Have you tested positive for COVID-19?: No Exposed to someone with COVID-19 in past 14 days?: No Do you have a sore throat?: No Do you have a cough?: No Do you have any weakness?: No Do you have any diarrhea?: No Are you experiencing any unusual bleeding?: No Do you have any muscle aches/pain?: No Do you have any abdominal pain?: No Are you experiencing loss of taste or smell?: No Other Medical History Have you received the Flu Vaccine for this season: No Have you received the Pneumonia Vaccine: No Review of Systems Review of Systems Review of systems (narrative): 14 point review of systems performed, pertinent positives and negatives as per HPI Meds Home Medications and Allergies Home Medications ?Medication ?Instructions ?Recorded ?Confirmed ?Type levothyroxine 112 mcg tablet 112 mcg PO DAILYDM 04/24/18 07/25/25 History hydroxychloroquine 200 mg tablet 200 mg PO DAILY 05/11/22 07/25/25 History acetaminophen 500 mg tablet 500 mg PO Q6HP PRN Mild Pain 07/15/24 07/25/25 History (Scale Score 1-4) cyclobenzaprine 5 mg tablet 5 mg PO HSP PRN muscle spasms 07/15/24 07/25/25 History melatonin 3 mg tablet 3 mg PO HSP Insomnia 07/15/24 07/25/25 History tramadol 50 mg tablet 50 mg PO Q6HP PRN Moderate Pain 07/15/24 07/25/25 History (Scale Score 5-6) carvedilol 12.5 mg tablet 12.5 mg PO BID 03/12/25 07/25/25 History potassium chloride 10 mEq 10 meq PO BID #60 caps 03/15/25 07/25/25 Rx capsule,extended release pravastatin 40 mg tablet 40 mg PO HS #30 tabs 03/15/25 07/25/25 Rx tamsulosin 0.4 mg capsule 0.4 mg PO HS 07/20/25 07/25/25 History spironolactone 25 mg tablet 25 mg PO DAILY #30 tabs 07/24/25 07/25/25 Rx cefdinir 300 mg capsule 300 mg PO BID 07/25/25 07/25/25 History New Prescriptions to Start Prescriptions: Allergies Allergy/AdvReac Type Severity Reaction Status Date / Time Sulfa (Sulfonamide Allergy Unknown Hives Verified 07/20/25 06:46 Antibiotics) (SULFA (SULFONAMIDE ANTIBIOTICS)) codeine Allergy Vomiting Verified 07/20/25 06:46 Penicillins Allergy Hives Verified 07/20/25 06:46 hydrocodone AdvReac Other Verified 07/20/25 06:46 Exam Data for Last 24 hours Vital signs and Labs for Last 24 Hours: Temp Pulse Resp BP Pulse Ox O2 Del Method 99.5 F 87 16 130/78 96 Room Air 07/25/25 08:30 07/25/25 12:30 07/25/25 12:30 07/25/25 12:30 07/25/25 12:30 07/25/25 12:30 Laboratory Results - last 24 hr 07/25/25 08:25: WBC 13.3 H D, RBC 4.02 L, Hgb 13.4, Hct 38.4, MCV 95.5, MCH 33.3 H, MCHC 34.9, RDW 12.7, Plt Count 297 D, MPV 9.8, Neut % (Auto) 90.8 H, Lymph % (Auto) 2.8 L, [place] % (Auto) 4.3, Eos % (Auto) 0.6, Baso % (Auto) 0.6, Neut # (Auto) 12.1 H, Lymph # (Auto) 0.4 L, [place] # (Auto) 0.6, Eos # (Auto) 0.1, Baso # (Auto) 0.1, Total Counted 100, Neutrophils % (Manual) 90 H, Lymphocytes % (Manual) 6 L, Monocytes % (Manual) 4, Platelet Estimate Normal, RBC Morphology Normal, Sodium 123 L, Potassium 3.6, Chloride 88 L, Carbon Dioxide 23, Anion Gap 15.6 H, BUN 7, Creatinine 0.80, Estimated Creat Clear 50, Estimated GFR 69, Est GFR ( Amer) 84, Glucose 119 H, Calcium 9.3, Magnesium 1.4 L, Total Bilirubin 0.8, AST 31, ALT 21, Alkaline Phosphatase 121, Total Creatine Kinase 74, Troponin I 0.17 H, Total Protein 7.0, Albumin 3.9, Globulin 3.1, Albumin/Globulin Ratio 1.3, Lipase 129, TSH 3.73, Free T4 1.51 07/25/25 11:07: Troponin I 0.18 H I & O for Last 24 hours: Intake & Output 07/22/25 07/23/25 07/24/25 07/25/25 23:59 23:59 23:59 23:59 Weight 68.039 kg Constitutional Constitutional: mild distress, thin, chronically ill appearing and cooperative *Routine HEENT Exam Head: Present normocephalic and atraumatic Eye: Present EOMI and PERRL ENT: Present mucous membranes moist *Routine Neck Exam Neck: Present supple *Routine Respiratory Exam Respiratory: Present CTA bilaterally; Absent respiratory distress, rhonchi, stridor, wheezes or crackles *Routine Cardiovascular Exam Cardiovascular: Present RRR *Routine Abdominal Exam Abdominal: Present soft, normoactive bowel sounds, tenderness (In the lower abdomen overlying bladder) and distended (Palpable distended bladder and lower abdomen); Absent rebound or guarding *Routine Rectal Exam Rectal:: deferred *Routine Genitalia Exam Genitalia:: deferred *Routine Extremities Exam Extremities: Absent cyanosis, clubbing or edema Comments: Legs cool below the knee bilaterally. Patient states this is chronic. *Routine Skin Exam Skin: Absent rash Comments: Numerous bruises of various ages on her legs below the knee. Skin tear mid left miller. *Routine Neurological Exam Neurological: Present alert, oriented X3 (Oriented to self and place.), moving all extremities and normal speech Routine Psychiatric Exam Psychiatric: Present normal affect Assessment and Plan *Assessment and plan (1) Hypomagnesemia: Status: Acute Category: Medical Code(s): E83.42 - Hypomagnesemia (2) UTI (urinary tract infection): Problem Comment: Morganella morganii, present on admission Status: Resolved Qualifiers: Hematuria presence: without hematuria Urinary tract infection type: acute cystitis Qualified Code(s): N30.00 - Acute cystitis without hematuria Category: Medical Code(s): N39.0 - Urinary tract infection, site not specified (3) Vomiting: Status: Acute Category: Medical Code(s): R11.10 - Vomiting, unspecified (4) Non-ST elevation [place] (NSTEMI): Status: Acute Category: Medical Code(s): I21.4 - Non-ST elevation (NSTEMI) myocardial infarction (5) Leukocytosis: Status: Acute Category: Medical Code(s): D72.829 - Elevated white blood cell count, unspecified (6) Hypothyroidism: Status: Chronic Qualifiers: Hypothyroidism type: postoperative Qualified Code(s): E89.0 - Postprocedural hypothyroidism Category: Medical Code(s): E03.9 - Hypothyroidism, unspecified (7) Rheumatoid arthritis: Status: Acute Category: Medical Code(s): M06.9 - Rheumatoid arthritis, unspecified (8) CAD (coronary artery disease): Status: Acute Category: Medical Code(s): I25.10 - Atherosclerotic heart disease of [place] coronary artery without angina pectoris (9) Chronic hyponatremia: Status: Acute Category: Medical Code(s): E87.1 - Hypo-osmolality and hyponatremia (10) Hypertension: Status: Acute Category: Medical Code(s): I10 - Essential (primary) hypertension (11) Weakness: Status: Acute Category: Medical Code(s): R53.1 - Weakness (12) Diarrhea: Status: Acute Qualifiers: Diarrhea type: unspecified type Qualified Code(s): R19.7 - Diarrhea, unspecified Category: Medical Code(s): R19.7 - Diarrhea, unspecified Plan 79-year-old female who was just discharged yesterday with UTI. Failed oral medication and she developed significant nausea vomiting and diarrhea. Presented with NSTEMI and progressive weakness. Discussed case with ER physician, request admission for further management of UTI and electrolyte disturbances. I decided to admit for further care. Replacing magnesium. Therapy to evaluate. Having urinary retention at this time. Problems addressed as follows: Morganella UTI present on admission Acute urinary retention Leukocytosis -Culture obtained last admission on 07/20. Sensitive to cephalosporins and fluoroquinolones. Was discharged on cefdinir, had nausea and vomiting and diarrhea after taking first dose at home. - Having acute urinary retention at this time. A liter of urine in her bladder on admission. Will place Todd for decompression. Repeat urinalysis pending -Will complete 2 more doses of Levaquin 750 mg IV today and tomorrow. That should complete antibiotic course. - White count again elevated to 13. Suspect secondary to infection versus reactive to nausea and vomiting. Repeat CBC, CMP, magnesium ordered for the morning. - Will hold hydroxychloroquine for her RA due to component of immunosuppression Acute hypomagnesemia Chronic hyponatremia - Magnesium 1.4, sodium 123, potassium 3.6. Baseline sodium appears to be mid 20s from review of chart. Suspect reset osmostat. Urine sodium pending. Will initiate sodium chloride p.o. 500 mg twice a day with meals for gradual supplementation/replacement. - Kidney function normal BUN 7, creatinine 0.8. Monitor daily NSTEMI Hypertension - Troponin 0.18. Per my review of EKG, no ST elevation. Suspect secondary to stress of infection and nausea and vomiting. - Will have cardiology evaluate on Sunday. - Initiated on aspirin 325 mg in the ER, continue 81 mg - resume home carvedilol 12.5 mg twice daily - Holding statin and diuretic in the setting of nausea and vomiting Weakness, falls: PT and OT consulted to evaluate. Patient would benefit from placement in rehab Continue levothyroxine 112 mcg daily for hypothyroid, TSH today of 3.7 Continue tamsulosin 0.4 mg nightly for urinary retention Full code Regular diet Lovenox 40 mg subcu daily
--- NOTE | 2025-07-25 13:35 | HMH.PHAINT1 ---
Pharmacy Intervention Comments: MEDICATION RECONCILIATION COMPLETED ON PATIENT USING EXTERNAL FILL HISTORY FROM PHARMACY AND DISCHARGE SUMMARY FROM PREVIOUS ADMISSION. -SAURAV NOBLE, SHAMIRD
[2025-07-25 13:58] LABS: Adenovirus F 40/41, stool Not Detected (NotDetected); Clostridium Difficile A/B, PCR Not Detected (NotDetected); Cyclospora Cayetanesis Not Detected (NotDetected); Plesimonas Shigalloides, PCR Not Detected (NotDetected); Salmonella, PCR Not Detected (NotDetected); Shiga-like toxin E coli Not Detected (NotDetected); Shigella Enterovasive E coli Not Detected (NotDetected); Vibrio, PCR Not Detected (NotDetected); Yersinia Entercolitica, PCR Not Detected (NotDetected)
--- NOTE | 2025-07-25 14:08 | PC.NURSE ---
called for bed from housekeeper supervisor
[2025-07-25] MEDS: MAGNESIUM SULFATE IN WATER 2 GM/50 ML PIGGYBACK IV (14:10)
--- NOTE | 2025-07-25 14:37 | PC.NURSE ---
REPORT GIVEN TO KAMALA JACOME AT THIS TIME.
[2025-07-25 15:52] LABS: Microscopic, Urine URINE MICROSCOPIC (MICROSCOPIC)
[2025-07-25 15:57] LABS: Bilirubin,Urine Negative (Negative); Color,Urine YELLOW (Yellow); Glucose,Urine (UA) Negative (Negative); Ketones,Urine TRACE (Negative); Leukocyte Esterase,Urine Negative (Negative); PH,Urine 7.0 (5.0-8.5); Protein,Urine TRACE (Negative); Specific Gravity, Urine 1.010 (1.005-1.030); Urobilinogen,Urine 0.2 EU/dl (0.2)
--- NOTE | 2025-07-25 16:02 | PC.WOUNDNOTE ---
Skin tear to (L) miller with reddened open area and bruising surrounding area. Skin tear to (L) miller with reddened open area and bruising surrounding area.
[2025-07-25 16:20] LABS: Bacteria,Urine Trace /lpf; WBC,Urine Occasional #/hpf (0-3)
[2025-07-25] MEDS: LEVOFLOXACIN/D5W 750 MG/150 ML 750 MG/150 ML PIGGYBACK 100 MG IV (16:20)
[2025-07-25 16:28] LABS: Troponin I 0.16 ng/ml (0.00-0.034)
[2025-07-25] MEDS: SODIUM CHLORIDE 1,000MG TABLET 500 MG PO (17:37)
[2025-07-25] MEDS: TAMSULOSIN 0.4MG CAPSULE 0.4 MG PO (21:20)
[2025-07-25] MEDS: CARVEDILOL 12.5MG TABLET 12.5 MG PO (21:20)
[2025-07-25] MEDS: MELATONIN 5MG TABLET 5 MG PO (21:24)
--- OUTSIDE RECORDS SUMMARY | 2025-07-25 21:28 | XMS_ITS | Clinical Summary ---
Author Organization [facility] Address [address] [place] [address] Phone Care Team Providers Care Collar Closer Lockstitch Name Role Phone Unavailable Primary Care Provider [...] B MEDICARE IN PART A AND B [facility]
--- OUTSIDE RECORDS SUMMARY | 2025-07-25 21:28 | XMS_ITS | Encounter Summary ---
Author Organization [facility] Address [address] [place] [address] Care Team Providers Care Tree Trimming Line Technician Name Role Phone Wyatt Torres MD Primary Care Provider Encounter Details Date Type Department Care Team (Late st Contact Info) Description 01/15/2025 Results Follow-Up [facility] [address] [facility] [address] [id number] Jennyfer Porras APRN [address] [facility] [address] [place] [address] Social History Tobacco Use Types Packs/Day Years [...] on filedocumented in this encounter Care Teams Tree Trimming Line Technician Relationship Specialty Start Date End Date Wyatt Torres MD [address] [facility] [address] [facility] [address] PCP - General Family Medicine 12/26/24 documented as of this encounter
--- OUTSIDE RECORDS SUMMARY | 2025-07-25 21:28 | XMS_ITS | Clinical Summary ---
Author Organization [facility] Address [address] [place] [address] Care Team Providers Care Tile And Marble Setter Name Role Phone Wyatt Torres MD Primary Care Provider [phone] Source Comments This information has been disclosed [...] therelease of HIV test results or diagnoses. [id number] Allergies Active Allergy Reactions Criticality Noted [...] A AND B [employer]IC [employer] Care Teams Tile And Marble Setter Relationship Specialty Start Date End Date Wyatt Torres MD [address] [place] [address] PCP - General Family Medicine 04/09/23
--- OUTSIDE RECORDS SUMMARY | 2025-07-25 21:28 | XMS_ITS | Encounter Summary ---
Author Organization [facility] Address [address] [place] [address] Care Team Providers Care Varnish Maker Helper Name Role Phone Amparo Arrington MD Primary Care Provider [phone] Encounter Details Date Type Department Care Team (Late st Contact Info) Description 06/19/2025 Orders Only [facility] [address] [place] [address] [place] [address] Anita Luu Hyponatremia (Primary Dx); Vitamin [...] place to sleep or slept in a halfway (including now)? No 07/01/2024 Utilities Answer Date [...] documented as of this encounter Care Teams Varnish Maker Helper Relationship Specialty Start Date End Date Amparo Arrington MD [address] [place] [address] PCP - General 03/04/21 documented as of this encounter
--- OUTSIDE RECORDS SUMMARY | 2025-07-25 21:28 | XMS_ITS | Clinical Summary ---
Author Organization [facility] Address [address] [place] [address] Care Team Providers Care Logging Crew Foreman Name Role Phone Wyatt Torres MD Primary [...] - 200 mg/dL 01/15/2025 12:23 AM EDT [facility] Triglycerides 89 0 - 150 mg/dL 01/15/2025 12:23 AM EDT [facility] HDL Cholesterol 99(H) 40 - 60 mg/dL 01/15/2025 12:23 AM EDT [facility] LDL Cholesterol 75 0 - 100 mg/dL 01/15/2025 12:23 AM EDT [facility] VLDL Cholesterol 16 5 - 40 mg/dL 01/15/2025 12:23 AM EDT [facility] LDL/HDL Ratio 0.74 01/15/2025 12:23 AM T [facility] Blood Venipuncture / Unknown 01/14/2025 10:25 AM EDT 01/14/2025 10:26 AM EDT Narrative [facility] - 01/15/2025 12:23 AM EDT [...] MD LAB BLOOD ORDERABLES Final Resul t [facility]
[address] [place] [address], from Last 3 Months or Most Recently Relevant to Health Maintenance Insurance MEDICARE A & B [employer] [facility] Care Teams Logging Crew Foreman Relationship Specialty Start Date End Date Wyatt Torres MD [address] [facility] [address] [facility] [address] [place] [address] PCP - General Family Medicine 12/26/24
--- OUTSIDE RECORDS SUMMARY | 2025-07-25 21:28 | XMS_ITS | Clinical Summary ---
Author Organization [facility] Address [address] [place] [address] Care Team Providers Care Rehabilitation Services Counselor Name Role Phone Amparo Arrington MD Primary Care Provider [phone] Allergies Active Allergy Reactions Criticality Noted Date [...] PMF's reviewed and stable PT/OT as tolerated [facility] Acquired hypothyroidism 06/30/2024 Overview (06/30/2024): Continue home levothyroxine Complicates all aspects of care Coronary artery disease invo [place]ving [place] coronary artery of [place] heart without angina pectoris 06/30/2024 Overview (06/30/2024): [...] Department Care Team Description 06/19/2025 Orders Only [facility] [address] [place] [id number] [...] place to sleep or slept in a alf (including now)? No 07/01/2024 Utilities Answer Date [...] or (1 - 1-dose 75+ series) 2021 [id number] Vaccine (9 - Moderna risk season) 2025 [...] Antibody Negative Negative 06/30/2024 2:20 AM EDT [facility] Blood Venous blood specimen / Unknown Venipuncture / Unknown 06/30/2024 1:15 AM EDT 06/30/2024 1:40 AM EDT us Sami Rowell MD LAB BLOOD ORDERABLES Final Re sult [facility] [address] [place] [address] from Last 3 Months or Most Recently Relevant to Health Maintenance Insurance MEDICARE [facility] Advance Directives * Full Code (Latest Code Status on File) Date Activated Date Inactivated Comments 07/04/2024 1:04 PM * Full Code Date Activated Date Inactivated Comments 06/30/2024 8:06 AM 07/04/2024 1:04 PM Question Answer Comments Patient has decision-making capacity? Yes Care Teams Rehabilitation Services Counselor Relationship Specialty Start Date End Date Amparo Arrington MD [address] [place] [address] [address] [place] [address] PCP - General 03/04/21
[2025-07-26] VITALS (8 sets, daily range): BP systolic 94–145; BP diastolic 60–76; PULSE 65–79; RESP 12–16; TEMP 36.6–37.2; O2SAT 95–98; BMI 22.2
[2025-07-26 07:19] LABS: Hematocrit 35.0 % (37.0-47.0); Immature Granulocytes % 2.0 %; Mean Corpuscular HGB Conc 33.7 g/dL (31.8-35.4); Mean Corpuscular Hemoglobin 32.4 pg (27.0-31.2); Mean Corpuscular Volume 96.2 fl (81-99); Nucleated Red Blood Cells % 0 %; Platelet Count 261 K/mm3 (142-424); Red Blood Count 3.64 M/mm3 (4.20-5.40); Red Cell Distribution Width-SD 45.5 fL; White Blood Count 8.2 K/mm3 (4.8-10.8)
[2025-07-26 07:36] LABS: Albumin Level 3.4 g/dl (3.5-5.0); Chloride 89 mmol/L (98-107)
[2025-07-26 07:37] LABS: Potassium 3.1 mmoL/L (3.5-5.1); Sodium 122 mmol/L (136-145)
[2025-07-26 07:39] LABS: Alanine Aminotransferase 20 U/L (12-78); Aspartate Amino Transferase 86 U/L (14-36); Bilirubin,Total 0.7 mg/dl (0.2-1.3); Blood Urea Nitrogen 7 mg/dl (7-17); Creatinine Clearance Estimated 47 mL/min (50-200); Creatinine,Serum 0.90 mg/dl (0.52-1.04); Estimated Glomerular Filt Rate 61 ml/min (>60); GFR (African American) 73 ML/MIN (>60)
[2025-07-26 07:40] LABS: Albumin/Globulin Ratio 1.2 (1.1-1.8); Alkaline Phosphatase 139 U/L (38-126); Anion Gap 15.1 mEq/L (5-15); Calcium 8.9 mg/dl (8.4-10.2); Carbon Dioxide 21 mmol/L (22.0-30.0); Globulin 2.9 g/dL (1.3-3.2); Glucose 81 mg/dl (74-100); Magnesium 1.9 mg/dl (1.6-2.3); Total Protein,Serum 6.3 g/dl (6.3-8.2)
--- NOTE | 2025-07-26 07:57 | PC.NURSE ---
Pt. is alert and orientated x 4. Pt. is on room air. Pt. was admitted for weakness, nausea, vomiting, diarrhea., and electrolyte disturbance. Pt. was in the hospital about a week ago for UTI and very low potassium. Pt. went home on antibiotics . Pt. states the nausea, vomiting and diarrhea are from the antibiotics. Pt. medicated for nausea overnight. Pt. had several moderate to large liquid diarrhea stools overnight. P. had a brief in place as the liquid stools did not give her enough time to get to a bedside commode. Pt. states that she feels terrible. Pt. has bruises all over her legs. and some skin tears.Personal items and call molina in reach. Bed in low and locked position. safety measures in place.
[2025-07-26] MEDS: LEVOTHYROXINE 112MCG (0.112MG) TAB 112 MCG PO (08:13)
[2025-07-26] MEDS: SODIUM CHLORIDE 1,000MG TABLET 500 MG PO ×2 (08:13→16:58)
[2025-07-26] MEDS: ASPIRIN EC 81MG TABLET 81 MG PO (08:14)
[2025-07-26] MEDS: CARVEDILOL 12.5MG TABLET 12.5 MG PO ×2 (08:14→20:16)
--- NOTE | 2025-07-26 08:22 | P.PN_ITS ---
Subjective *Date: 07/26/25 *Time: 08:22 Interval history: Spoke to Dr. Marshall this morning. H&P reviewed. Patient was discharged from [facility] 07/24/25. She tok one dose of Crefdinir at home and started vomiting, had some diarrhea and became weak. She came back to the ER and was found to have urinary retention and elevated troponin. She was admitted, savage was palced and cardiology was consulted. Medical Exam Vital signs and Labs for Last 24 Hours: Vital Signs Temp Pulse Pulse Resp BP BP Pulse Ox 07/26/25 07:50 97.9 F 76 16 105/67 L 96 07/26/25 07:00 07/26/25 05:00 07/26/25 04:00 65 07/26/25 04:00 97.8 F 76 12 109/66 L 97 07/26/25 03:00 07/26/25 01:00 07/26/25 00:00 70 07/26/25 00:00 97.8 F 67 12 105/60 L 98 07/25/25 23:00 07/25/25 21:00 07/25/25 20:00 75 07/25/25 20:00 16 98 07/25/25 20:00 98.4 F 86 12 136/78 98 07/25/25 18:49 07/25/25 17:15 07/25/25 16:00 80 07/25/25 16:00 98.3 F 74 14 135/77 96 07/25/25 15:45 96 07/25/25 15:00 07/25/25 14:38 99.5 F 82 18 141/84 H 07/25/25 14:12 88 20 140/85 96 07/25/25 13:30 92 H 20 153/81 H 95 07/25/25 13:00 84 18 138/77 96 07/25/25 12:30 87 16 130/78 96 07/25/25 12:00 94 H 16 135/79 95 07/25/25 11:30 90 20 143/99 H 96 07/25/25 11:00 89 18 147/84 H 95 07/25/25 10:30 100 H 22 150/94 H 92 L 07/25/25 10:00 95 H 16 159/96 H 95 07/25/25 09:30 89 16 146/89 H 95 07/25/25 09:00 88 17 154/93 H 95 07/25/25 08:30 91 H 20 143/85 H 94 L 07/25/25 08:30 99.5 F 90 20 147/90 H 93 L 07/25/25 08:30 99.5 F 90 20 147/90 H 93 L O2 Del Method 07/26/25 07:50 07/26/25 07:00 Room Air 07/26/25 05:00 Room Air 07/26/25 04:00 07/26/25 04:00 Room Air 07/26/25 03:00 Room Air 07/26/25 01:00 Room Air 07/26/25 00:00 07/26/25 00:00 Room Air 07/25/25 23:00 Room Air 07/25/25 21:00 Room Air 07/25/25 20:00 07/25/25 20:00 Room Air 07/25/25 20:00 Room Air 07/25/25 18:49 Room Air 07/25/25 17:15 Room Air 07/25/25 16:00 07/25/25 16:00 Room Air 07/25/25 15:45 Room Air 07/25/25 15:00 Room Air 07/25/25 14:38 07/25/25 14:12 07/25/25 13:30 07/25/25 13:00 07/25/25 12:30 Room Air 07/25/25 12:00 07/25/25 11:30 07/25/25 11:00 07/25/25 10:30 07/25/25 10:00 Room Air 07/25/25 09:30 07/25/25 09:00 Room Air 07/25/25 08:30 Room Air 07/25/25 08:30 07/25/25 08:30 Intake and Output 07/25/25 07/26/25 07/26/25 23:59 07:59 15:59 Intake Total 150 / 390 240 / 240 Output Total 550 / 1645 200 / 200 Balance -400 / -1255 40 / 40 Intake: Intake, Oral Amount 240 / 240 Intake, Total IV Amount 150 / 150 Levofloxacin/D5w 750 mg/150 ml 150 / 150 750 mg In 150 ml @ 100 mls/hr IV Q24H [facility] Rx#:[id number] Output: Output, Urine Amount 550 / 1645 200 / 200 Other: Number of Unmeasured Voids 0 0 Number of Bowel Movements 2 1 Weight 142 lb Patient Weight 07/26/25 23:59 Weight 142 lb Laboratory Results - last 24 hr 07/25/25 08:25: WBC 13.3 H D, RBC 4.02 L, Hgb 13.4, Hct 38.4, MCV 95.5, MCH 33.3 H, MCHC 34.9, RDW 12.7, Plt Count 297 D, MPV 9.8, Neut % (Auto) 90.8 H, Lymph % (Auto) 2.8 L, [place] % (Auto) 4.3, Eos % (Auto) 0.6, Baso % (Auto) 0.6, Neut # (Auto) 12.1 H, Lymph # (Auto) 0.4 L, [place] # (Auto) 0.6, Eos # (Auto) 0.1, Baso # (Auto) 0.1, Total Counted 100, Neutrophils % (Manual) 90 H, Lymphocytes % (Manual) 6 L, Monocytes % (Manual) 4, Platelet Estimate Normal, RBC Morphology Normal, Sodium 123 L, Potassium 3.6, Chloride 88 L, Carbon Dioxide 23, Anion Gap 15.6 H, BUN 7, Creatinine 0.80, Estimated Creat Clear 50, Estimated GFR 69, Est GFR ( Amer) 84, Glucose 119 H, Calcium 9.3, Magnesium 1.4 L, Total Bilirubin 0.8, AST 31, ALT 21, Alkaline Phosphatase 121, Total Creatine Kinase 74, Troponin I 0.17 H, Total Protein 7.0, Albumin 3.9, Globulin 3.1, Albumin/Globulin Ratio 1.3, Lipase 129, TSH 3.73, Free T4 1.51 07/25/25 11:07: Troponin I 0.18 H 07/25/25 13:54: Stl C. cayetanensis PCR Not detected, Stool Rotavirus (PCR) Not detected, Stl Adenov F 40/41 PCR Not detected, Stool Astrovirus (PCR) Not detected, Stool Campylobacter PCR Not detected, Stl C.difficile Tox PCR Not detected, Stool Cryptosporidium PCR Not detected, Stl E.coli Shiga Tox PCR Not detected, Stool E coli O157 PCR Not detected, Stl Enterotoxigenic E PCR Not detected, Stool EPEC (PCR) Not detected, Stool EAEC (PCR) Not detected, Stl E. histolytica PCR Not detected, Stool Giardia Lamblia PCR Not detected, Stool Salmonella PCR Not detected, Stool Sapovirus (PCR) Not detected, Stl P. sh igelloides PCR Not detected, Stl Shigella/EIEC PCR Not detected, St Y.enterocolitica PCR Not detected, Stool Vibrio (PCR) Not detected, Stl Vibrio cholerae PCR Not detected, Stl Norovirus GI/GII PCR Not detected 07/25/25 15:13: Urine Color Yellow, Urine Appearance Clear, Urine pH 7.0, Ur Specific [place] 1.010, Urine Protein Trace, Urine Glucose (UA) Negative, Urine Ketones Trace, Urine Blood Negative, Urine Nitrate Negative, Urine Bilirubin Negative, Urine Urobilinogen 0.2, Ur Leukocyte Esterase Negative, Urine RBC None, Urine WBC Occasional, Ur Squamous Epith Cells None, Urine Bacteria Trace 07/25/25 15:55: Troponin I 0.16 H 07/26/25 06:50: WBC 8.2 D, RBC 3.64 L, Hct 35.0 L, MCV 96.2, MCH 32.4 H, MCHC 33.7, RDW 12.8, Plt Count 261, MPV 9.5, Neut % (Auto) 73.0, Lymph % (Auto) 14.5, [place] % (Auto) 8.2, Eos % (Auto) 1.8, Baso % (Auto) 0.5, Neut # (Auto) 6.0, Lymph # (Auto) 1.2, [place] # (Auto) 0.7, Eos # (Auto) 0.2, Baso # (Auto) 0.0, Sodium 122 L, Potassium 3.1 L, Chloride 89 L, Carbon Dioxide 21 L, Anion Gap 15.1 H, BUN 7, Creatinine 0.90, Estimated Creat Clear 47, Estimated GFR 61, Est GFR ( Amer) 73, Glucose 81 D, Calcium 8.9, Magnesium 1.9 D, Total Bilirubin 0.7, AST 86 H D, ALT 20, Alkaline Phosphatase 139 H, Total Protein 6.3, Albumin 3.4 L D, Globulin 2.9, Albumin/Globulin Ratio 1.2 I & O for Labs for Last 24 Hours: Intake & Output 10/0207/24/25 07/25/25 07/26/25 23:59 23:59 23:59 23:59 Intake Total 150 / 390 240 / 240 Output Total 1645 / 1645 200 / 200 Balance -1495 / -1255 40 / 40 Weight 150 lb 142 lb Constitutional: Present no acute distress Respiratory: Present normal respiratory effort Cardiac: Present Reg Rate and Rhythm GI: Present normal bowel sounds; Absent tenderness Extremities: Present normal inspection and full ROM Skin: Present ecchymosis (on both legs); Absent erythema Neuro: Present Grossly Intact and moves all extremities Assessment and Plan *Assessment and plan (1) Hypomagnesemia: Status: Acute Category: Medical Code(s): E83.42 - Hypomagnesemia (2) UTI (urinary tract infection): Problem Comment: Morganella morganii, present on admission Status: Resolved Qualifiers: Hematuria presence: without hematuria Urinary tract infection type: acute cystitis Qualified Code(s): N30.00 - Acute cystitis without hematuria Category: Medical Code(s): N39.0 - Urinary tract infection, site not specified (3) Vomiting: Status: Acute Category: Medical Code(s): R11.10 - Vomiting, unspecified (4) Non-ST elevation ME (NSTEMI): Status: Acute Category: Medical Code(s): I21.4 - Non-ST elevation (NSTEMI) myocardial infarction (5) Leukocytosis: Status: Acute Category: Medical Code(s): D72.829 - Elevated white blood cell count, unspecified (6) Hypothyroidism: Status: Chronic Qualifiers: Hypothyroidism type: postoperative Qualified Code(s): E89.0 - Postprocedural hypothyroidism Category: Medical Code(s): E03.9 - Hypothyroidism, unspecified (7) Rheumatoid arthritis: Status: Acute Category: Medical Code(s): M06.9 - Rheumatoid arthritis, unspecified (8) CAD (coronary artery disease): Status: Acute Category: Medical Code(s): I25.10 - Atherosclerotic heart disease of [place] coronary artery without angina pectoris (9) Chronic hyponatremia: Status: Acute Category: Medical Code(s): E87.1 - Hypo-osmolality and hyponatremia (10) Hypertension: Status: Acute Category: Medical Code(s): I10 - Essential (primary) hypertension (11) Weakness: Status: Acute Category: Medical Code(s): R53.1 - Weakness (12) Diarrhea: Status: Acute Qualifiers: Diarrhea type: unspecified type Qualified Code(s): R19.7 - Diarrhea, unspecified Category: Medical Code(s): R19.7 - Diarrhea, unspecified (13) Hypokalemia: Status: Acute Category: Medical Code(s): E87.6 - Hypokalemia Plan Continue current treatment. Replace potassium, cardiology to see patient tomorrow.
[2025-07-26] MEDS: FAMOTIDINE 20MG TABLET 20 MG PO (10:27)
[2025-07-26] MEDS: POTASSIUM CHLORIDE 20MEQ TAB 20 MEQ PO (10:27)
[2025-07-26 11:58] LABS: Hemoglobin 11.8 g/dL (12.2-16.2)
--- NOTE | 2025-07-26 12:45 | PC.NURSE ---
Addendum entered by ABDON Parekh 07/26/25 12:47: scallop raker PT returned call back at 1247. Original Note: scallop raker PT was called twice at 0810 and again at 1240 with no answer.
[2025-07-26] MEDS: POTASSIUM CHLORIDE 20MEQ TAB 40 MEQ PO ×2 (16:57→20:16)
--- NOTE | 2025-07-26 19:53 | PC.NURSE ---
Phoned [facility] Spoke with Kathy Keith. Pt was scheduled for Potassium 40 meq 3X a day. And also scheduled for Potassium 20 meq BID. Pt level was 3.1 this AM. Kathy Keith restarted the Potassium 20 meq BID to start in the morning at 9 AM. LESLY MCCANN RN
[2025-07-26] MEDS: TAMSULOSIN 0.4MG CAPSULE 0.4 MG PO (20:16)
[2025-07-26 20:22] LABS: Sodium,Urine Random 109.0 mmol/L (30-90)
[2025-07-27] VITALS (7 sets, daily range): BP systolic 116–143; BP diastolic 64–80; PULSE 69–110; RESP 14–18; TEMP 36.4–36.7; O2SAT 93–100; BMI 22.8
[2025-07-27 06:32] LABS: Hematocrit 34.4 % (37.0-47.0); Hemoglobin 11.8 g/dL (12.2-16.2); Immature Granulocytes % 8.1 %; Mean Corpuscular HGB Conc 34.3 g/dL (31.8-35.4); Mean Corpuscular Hemoglobin 33.1 pg (27.0-31.2); Mean Corpuscular Volume 96.6 fl (81-99); Nucleated Red Blood Cells % 0 %; Platelet Count 332 K/mm3 (142-424); Red Blood Count 3.56 M/mm3 (4.20-5.40); Red Cell Distribution Width-SD 45.8 fL; White Blood Count 8.5 K/mm3 (4.8-10.8)
[2025-07-27 06:36] LABS: Chloride 94 mmol/L (98-107); Potassium 4.8 mmoL/L (3.5-5.1)
[2025-07-27 06:39] LABS: Anion Gap 15.8 mEq/L (5-15); Blood Urea Nitrogen 9 mg/dl (7-17); Carbon Dioxide 19 mmol/L (22.0-30.0); Creatinine Clearance Estimated 48 mL/min (50-200); Creatinine,Serum 0.90 mg/dl (0.52-1.04); Estimated Glomerular Filt Rate 61 ml/min (>60); GFR (African American) 73 ML/MIN (>60); Sodium 124 mmol/L (136-145)
[2025-07-27 06:40] LABS: Calcium 8.8 mg/dl (8.4-10.2); Glucose 61 mg/dl (74-100)
--- NOTE | 2025-07-27 06:50 | PC.NURSE ---
Pt was admitted with weakness. She is a full code. She has dressing on her Left miller. a 20 Gauge in her Right AC. Pt has a Todd cath placed yesterday for strict I&O. Pt is A&Ox4, Pt is a fall risk and has a bed alart on. Pt have Lovenox for VTE. Pt is on Room Air. Pt refused her Midnight dose of Potassium 40 Meq. Stated she was tired of taking pills Pt. has bruises all over her legs. and some skin tears. Personal items and call molina in reach. Bed in low and locked position. safety measures in place. LESLY TAO RN
--- NOTE | 2025-07-27 07:48 | EXP.PN ---
Subjective *Date: 07/27/25 *Time: 08:56 Interval history: Patient denies any chest pain or shortness of breath. She was able to eat a little bit for breakfast this morning. She notes she has very little appetite. She states she did sleep some. She denies any pain anyplace. She has not been out of bed. She has a Todd catheter to bedside drainage. She had no diarrhea during the night. Laboratory data this morning show white blood cell count of 8500 with a hemoglobin of 11.8 and hematocrit of 34.4. Blood chemistries with a sodium of 124 and potassium of 4.8. BUN is 9 and creatinine is 0.9. . Exam Data for Last 24 hours Vital signs and Labs for Last 24 Hours: Temp Pulse Resp BP Pulse Ox O2 Del Method 97.6 F 91 H 18 118/80 97 Room Air 07/27/25 07:36 07/27/25 07:36 07/27/25 07:36 07/27/25 07:36 07/27/25 07:36 07/27/25 07:36 Laboratory Results - last 24 hr 07/25/25 15:13: Urine Sodium 109.0 H 07/26/25 06:50: Hgb 11.8 L D 07/27/25 05:51: WBC 8.5, RBC 3.56 L, Hgb 11.8 L, Hct 34.4 L, MCV 96.6, MCH 33.1 H, MCHC 34.3, RDW 12.9, Plt Count 332 D, MPV 9.6, Neut % (Auto) 60.5, Lymph % (Auto) 18.1, [place] % (Auto) 10.7 H, Eos % (Auto) 1.9, Baso % (Auto) 0.7, Neut # (Auto) 5.1, Lymph # (Auto) 1.5, [place] # (Auto) 0.9, Eos # (Auto) 0.2, Baso # (Auto) 0.1, Sodium 124 L, Potassium 4.8 D, Chloride 94 L, Carbon Dioxide 19 L, Anion Gap 15.8 H, BUN 9 D, Creatinine 0.90, Estimated Creat Clear 48, Estimated GFR 61, Est GFR ( Amer) 73, Glucose 61 L D, Calcium 8.8 I & O for Last 24 hours: Intake & Output 07/24/25 07/25/25 07/26/25 07/27/25 11:59 11:59 11:59 11:59 Intake Total 510 / 510 640 / 640 Output Total 1895 / 1895 375 / 375 Balance -1385 / -1385 265 / 265 Weight 150 lb 142 lb 145 lb 14.4 oz Constitutional Constitutional: no acute distress Comments: Sitting up in the bed. Conversant. Eating her breakfast. *Routine Respiratory Exam Respiratory: Present CTA bilaterally (Anteriorly and posteriorly) *Routine Cardiovascular Exam Cardiovascular: Present RRR and murmur *Routine Abdominal Exam Abdominal: Present soft; Absent normoactive bowel sounds (Hyperactive), tenderness or distended *Routine Extremities Exam Extremities: Present edema (Right lower extremity/ankle. Kalosis on arms and legs. Wound on left anterior lower leg appears as a skin tear. Partially healed.) *Routine Neurological Exam Neurological: Present alert, oriented X3, moving all extremities and normal speech Assessment and Plan *Assessment and plan (1) Hypomagnesemia: Status: Acute Category: Medical Code(s): E83.42 - Hypomagnesemia (2) UTI (urinary tract infection): Problem Comment: Morganella morganii, present on admission Status: Resolved Qualifiers: Hematuria presence: without hematuria Urinary tract infection type: acute cystitis Qualified Code(s): N30.00 - Acute cystitis without hematuria Category: Medical Code(s): N39.0 - Urinary tract infection, site not specified (3) Vomiting: Status: Acute Category: Medical Code(s): R11.10 - Vomiting, unspecified (4) Non-ST elevation PR (NSTEMI): Status: Acute Category: Medical Code(s): I21.4 - Non-ST elevation (NSTEMI) myocardial infarction (5) Leukocytosis: Status: Acute Category: Medical Code(s): D72.829 - Elevated white blood cell count, unspecified (6) Hypothyroidism: Status: Chronic Qualifiers: Hypothyroidism type: postoperative Qualified Code(s): E89.0 - Postprocedural hypothyroidism Category: Medical Code(s): E03.9 - Hypothyroidism, unspecified (7) Rheumatoid arthritis: Status: Acute Category: Medical Code(s): M06.9 - Rheumatoid arthritis, unspecified (8) CAD (coronary artery disease): Status: Acute Category: Medical Code(s): I25.10 - Atherosclerotic heart disease of [place] coronary artery without angina pectoris (9) Chronic hyponatremia: Status: Acute Category: Medical Code(s): E87.1 - Hypo-osmolality and hyponatremia (10) Hypertension: Status: Acute Category: Medical Code(s): I10 - Essential (primary) hypertension (11) Weakness: Status: Acute Category: Medical Code(s): R53.1 - Weakness (12) Diarrhea: Status: Acute Qualifiers: Diarrhea type: unspecified type Qualified Code(s): R19.7 - Diarrhea, unspecified Category: Medical Code(s): R19.7 - Diarrhea, unspecified (13) Hypokalemia: Status: Acute Category: Medical Code(s): E87.6 - Hypokalemia Plan Wound care discussed with patient and nurse. Will do a foam type dressing to the left lower wound. Cardiology to see patient this morning due to elevated troponin. Also physical therapy to evaluate. Patient has had no further diarrhea. Potassium has normalized. Will remove Todd catheter. Patient needs to be out of bed. Encourage oral fluids. Dr. Garcia entry - Saw patient, agree with above note.
[2025-07-27 08:00] LABS: RBC Morphology Normal; Total Cells Counted 100
--- NOTE | 2025-07-27 08:27 | CA_ITS ---
APPROVED REPORT EXAM: Comprehensive 2D, Doppler, and color-flow Echocardiogram Long Term: Zulema Tarango RT(R) Ht: 5 ft 7 in Wt: 145lbs BSA: 1.76 BP: 130/78 mmHg Indications: NSTEMI, CAD, hyponatremia, weakness 2D Dimensions LA Volume 39.50 mL LA Volume Index 22.32 mL/m2 (M/F) 16-34 EF AP4 31.80 % GL Strain -4.7 % M-Mode Dimensions RVDd 2.21 cm (0.9-2.6) LA Diam 4.41 cm (1.9-4.0) LVDd 4.46 cm (3.5-5.7) LVDs 3.25 cm (3.5-5.7) IVSd 0.61 cm (0.6-1.1) PWd 0.82 cm (0.6-1.1) EF (Teich) 53.00% FS 27.10% EDV (Teich) 90.50 mL ESV (Teich) 42.50 mL LV Diastology E Decel Time 167 (160-240 msec) E/A Ratio 1.0 Mitral Valve MV E Max Kojo. 119.0 (40-130 cm/s) MV A Velocity 119.0 (40-130 cm/s) E/A Ratio 1.00 MV PHT 49.0 ms Tricuspid Valve TR P. Velocity 317.00 cm/s Left Ventricle The left ventricle is normal size. There is increased left ventricular wall thickness. Proximal septal thickening is present. There is low-normal LV segmental wall motion. There is moderate hypokinesis of the septal and anteroseptal LV marrufo. The left ventricular diastolic function is normal. LVEF is 50% Right Ventricle The right ventricle is normal size. The right ventricular systolic function is normal. Atria The left atrium is severely dilated. The right atrium is moderately dilated. There is no color Doppler evidence of interatrial shunt. Aortic Valve The aortic valve is mildly thickened. There is no hemodynamically significant aortic valvular stenosis. Trace aortic regurgitation is present. Mitral Valve Moderate mitral annular calcification (MAC) is present. The mitral valve leaflets are mildly thickened. Leaflet mobility is difficult to visualize in the setting of MV thickening. No evidence of mitral valve stenosis. Severe mitral regurgitation is present. The MR jet is eccentric and anteriorly directed. Tricuspid Valve The tricuspid valve leaflets are thin and pliable. Mild tricuspid regurgitation. RVSP is 40-45 mmHg. Pulmonic Valve The pulmonary valve is grossly normal in structure. Mild pulmonic valve regurgitation is present. Great Vessels The aortic root is normal in size. IVC is normal in size and collapses >50% with inspiration. Pericardium There is no pericardial effusion. Other Information Study Quality: Fair Conclusion Reduced LV systolic function in the setting of severe MR (LVEF 50%). Moderate hypokinesis of the septal and anteroseptal LV marrufo. Biatrial dilation. Moderate MAC. MV leaflet mobility is difficult to visualize in the setting of MV thickening. Severe MR. The MR jet is eccentric and anteriorly directed. Mild TR, mild PI. RVSP is 40 to 45 mmHg. In the setting of severe MR, further evaluation with outpatient MURALI may be suggested to evaluate MR mechanism. Also, cardiac MRI (cardiomyopathy protocol) may be suggested. Electronically signed by : Kiana Huerta MD 07/27/2025 12:40:35
[2025-07-27] MEDS: CARVEDILOL 12.5MG TABLET 12.5 MG PO ×2 (08:59→20:44)
[2025-07-27] MEDS: SODIUM CHLORIDE 1,000MG TABLET 500 MG PO ×2 (08:59→16:33)
[2025-07-27] MEDS: ASPIRIN EC 81MG TABLET 81 MG PO (08:59)
[2025-07-27] MEDS: FAMOTIDINE 20MG TABLET 20 MG PO (08:59)
--- NOTE | 2025-07-27 08:59 | HMH.OTEV ---
OT Evaluation Rehab OT IP Evaluation Start: 07/25/25 15:22 Freq: ONCE Status: Active Protocol: Document 07/27/25 08:45 DEENA (Rec: 07/27/25 08:59 DEENA [id number]) Rehab OT IP Assessment Subjective History Per HPI: Source of Information: Patient and Spouse Description of Symptoms (Recalled from ER Triage Doc. by RN): PATIENT PRESENTS TO ED FOR NAUSEA, VOMITING, AND DIARRHEA THAT BEGAN YESTERDAY EVENING. PT DISCHARGED FROM THIS HOSPITAL YESTERDAY AND SENT HOME ON ANTIBIOTICS. STATES SHE IS HAVING A REACTION TO THE MEDS. DENIES PAIN ANYWHERE. PT APPEARS UNWILLING TO SPEAK WITH STAFF EXCEPT FOR A FEW WORDS. FAMILY AT BEDSIDE. History of Present Illness HPI narrative: This is a 79-year-old female patient, with past medical history of hyperlipidemia, hypothyroidism, kidney stones, CAD with prior OR, and cognitive decline, who is presenting to the emergency department today for evaluation of nausea, vomiting, and diarrhea. Patient was recently admitted to the hospital and discharged yesterday evening. Admission was for very similar symptoms with significant electrolyte derangements of hyponatremia, hypokalemia, and hypomagnesemia. She was also diagnosed with a urinary tract infection that grew Morganella Morganii and was treated with Rocephin while inpatient. At the time of discharge the patient had been successfully treated for her urinary tract infection and her electrolyte derangements were corrected with the exception of hyponatremia. She was ambulatory with her walker. Since discharge home she has become progressively weaker and has been unable to stand or walk independently on her own. She has also had significant nausea and vomiting as well as diarrhea . Family estimates too numerous episodes to count. She is not having hematochezia, melena, or hematemesis. They also state that while she does have cognitive decline at baseline she seems to be a bit more confused than usual. Subjective How did I do? Pt was supine in bed when therapy arrived. Pt's daughter present for session. Pt orient x3. Pt currently lives at home with in SS home with basement, but pt does not have to go to basement for any tasks. Pt uses a RW for all FM and has had no falls recently. She claims normally she is independent with all ADLs. 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 Pt no longer drives. Pt agreed to FM task. Pt was able to go from supine to EOB with SBA. Pt then completed STS with RW with CGA for safety. Pt then completed FM task of 25 ft with RW and SUP/SBA. Pt demo fair endurance and activity tolerance. Pt then stood at EOB while therapy assisted in changing of brief due to bowel movement. Pt able to hold static standing balance for 1 minute with RW and SUP before requesting to sit on EOB. Pt sat at EOB. Pt then completed STS with RW and SBA for hygiene. Pt was able to demo to therapy they could wipe bottom area clean and use dynamic standing balance with SUP with RW for approx 3 minutes with SBA. Therapy then assisted pt in donning brief while pt held static standing balance with SBA and RW. Pt then sat on EOB and went to supine position with Ind. Pt left supine in bed with call light and all other needs within reach and daughter present. Objective Patient Orientation Person,Place,Birthday Right Upper WFL Extremity Gross ROM Left Upper Extremity WFL Gross ROM Bed Mobility bed mobility-scooting,bed mobility - supine/sit Assist Level Supervision/Stand by Transfer Training Sit/Stand Transfer Assist Level Contact Guard/Hand Hold Chair Transfer Sit to/from Ambulatory Technique Chair Transfer Rolling Walker Assistive Devices Performing Toilet Standby Assistance Hygiene Ability Decrease in Yes Endurance Rehab OT IP prob,goals,plan Problems Date of Evaluation: 07/27/25 OT IP Problems Bed Mobility,Transfers,Balance,Self care,Safety Rehab Potential Rehab Potential Good Equipment Needs Assistive Devices Rolling / Wheeled Walker Plan OT intervention Plan Bed Mobility,Transfers,Balance,Self care,Safety, Therapeutic Exercise OT Plan Frequency Daily Duration LOS Discharge Goals Bed Mobility Ability Independent Sit to Stand Chair Independent Transfer Ability Chair Transfer Independent Ability Chair Transfer Sit to/from Ambulatory Technique Chair Transfer Rolling Walker Assistive Devices Feeding Ability Assist with Tray Set Up Performing Toilet Standby Assistance Hygiene Ability Overall Commode/ Standby Assistance Toilet Transfer Ability Commode/Toilet Sit to/from Ambulatory Transfer Technique Commode/Toilet Raised Toilet Seat,Grab Bars Transfer Assistive Devices Decrease in No Endurance Discharge Plan OT Discharge Plan At this time, pt is below baseline and would benefit from skilled acute OT services and interventions while admitted at [facility] to improve functional limitations in occupational performance. Pt is planned to move in with daughter in aprox 1 month for better assistance. pt would benefit from OT services and interventions once DC from [facility] to further address functional limitations in occupational performance and improve QOL . Eval Complexity Eval Charge Codes 19494 - Moderate Complexity PHYSICIAN CERTIFICATION: I certify the specified therapy services for Andry Culp are required, authorized, and reviewed every 30 days.
[2025-07-27] MEDS: POTASSIUM CHLORIDE 20MEQ TAB 20 MEQ PO (09:00)
[2025-07-27] MEDS: LEVOTHYROXINE 112MCG (0.112MG) TAB 112 MCG PO (09:01)
--- NOTE | 2025-07-27 09:12 | SW/DCPLANNER ---
Addendum entered by Apple Hawthorn 07/28/25 08:50: I have updated [facility] that patient is medically stable for discharge today. Addendum entered by [facility] 07/27/25 15:51: Ivet carlitos/ [facility] is able to accept patient once medically stable for discharge. I have updated patient's family. Addendum entered by Apple Hawthorn 07/27/25 13:58: Per Marlene urbina/ [facility] there are no beds available at this time. [facility] is also full. Family has requested that information be faxed to [facility]. If they are not able to accept patient they prefer [facility]. CM will continue to follow up. Original Note: PT/OT evaluated patient and recommended home w/ home health services. Patient's family voiced concern in patient returning home and they are interested in SNF level of care. Patient is agreeable to placement at [facility] short term. I will contact [facility] regarding bed availability and fax information if there is a female bed. Discharge date is unknown at this time. CM will continue to follow up.
--- NOTE | 2025-07-27 10:05 | HMH.PTEV ---
Physical Therapy Evaluation Rehab PT IP Evaluation Start: 07/25/25 15:22 Freq: ONCE Status: Active Protocol: Document 07/27/25 09:58 JEAN (Rec: 07/27/25 10:03 JEAN [id number]) Subjective/History History History Per H&P: Ms. Culp is a 79-year-old female who was just discharged yesterday from the hospital to finish oral treatment for UTI. She has a history significant for hyperlipidemia, hypothyroid, kidney stones, CAD with prior FL, cognitive decline over the past year or more. She presented to the ER today with concern for the development of nausea, vomiting, increased urinary frequency and diarrhea overnight. Got home last night and took her first dose of cefdinir. Developed multiple episodes of diarrhea. Was up urinating frequently per her . Denies fever. States she has become quite weak and needs significant assistance. Had evaluated for placement during last admission but showed some improvement during admission and patient elected to go home. On arrival to the ED, patient is globally weak. Has white count of 13.3. Kidney function normal with BUN 7, creatinine 0.8. Magnesium low at 1.4 and sodium low at 123 which appears to have some level of chronicity. Of concern, troponins elevated at 0.18 meaning criteria for NSTEMI. EKGs reviewed did not show manjinder ST elevation. Patient denying chest pain. Medicine consulted for further management of electrolyte disturbances, weakness, UTI and failure of outpatient therapy. On arrival to the floor, patient's belly is tender and appears to have a distended bladder. Answers questions appropriately but with brief answers and does not want to make eye contact. Denies chest pain or shortness of breath. States she has been falling over the past year at home. Has an abrasion on her left miller approximately the size of a quarter with skin tear of the epidermis. Family concerned about patient's decline and needing potential placement. Concern for difficulty being cared for at home. Would like therapy evals and reconsideration of placement. Patient on room air at this time. Subjective Subjective Pt greeted in bed with daughter present in room. Daughter confirmed hx answers. Pt reports she lives in a home with her . Pt has a basement but reports she does not need to go down to the basement. Pt reports 4 BEBA home with HR. Pt normally IND with ambulation using rollator. Pt denies any falls in the past 30 days. Pt's daughter reports she plans to have her mom and dad move in with her soon. New diagnosis of No cancer in past 12 months? [facility] How much help from another person do you currently need... Turning from your None back to your side while in a flat bed without using bedrails? Moving from lying on None back to sitting on the side of a flat bed without using bedrails? Moving to and from a None bed to a chair ( including a wheelchair)? Standing up from a None chair using your arms? (e.g., wheelchair, bedside chair) Walking in hospital A little room? Climbing 3-5 steps A little with a railing? Mobility Score 22 Mobility Level [place] [id number] Walk 25 feet or more Mobility Calculator Rehab PT IP Eval Objective Appearance Patient Behavior Appropriate,Cooperative Patient Orientation Person,Place,Situation Difficulty following none instructions Speech Pattern Clear Ambulation Patient Able to Yes Ambulate Ambulation Observation IP General Gait No Deviations/Normal Pattern Observation Ambulation Distance 25 (feet) Ambulation Assistive Rolling Walker Device Ambulation Ability Supervision/Stand by Balance Ability to Arise Able, uses arms to help Sitting Balance Steady, safe Standing Balance Steady, wide stance Dynamic Sitting Good Balance Ability Dynamic Standing Good Balance Ability Transfers Bed Transfer Ability Supervision/Stand by Chair Transfer Supervision/Stand by Ability Sit to Stand Bed Supervision/Stand by Transfer Ability Rehab PT IP prob,goals,plan Problems Date of Evaluation: 07/27/25 PT IP Problems Bed Mobility,Transfers,Gait,Balance,Self care,Safety Rehab Potential Rehab Potential Good Plan PT Intervention Plan Bed Mobility,Transfers,Gait,Balance,Self care,Safety, Therapeutic Exercise Other Intervention 1-2 times Plan PT Plan Frequency Daily Duration LOS Discharge Goals Bed Transfer Ability Independent Sit to Stand Chair Independent Transfer Ability Ambulation Assistive Rolling Walker Device Ambulation Distance 150 (feet) Discharge Plan PT Discharge Plan Pt presents below baseline in strength and endurance and would benefit from skilled acute care PT while at [facility]. Pt most appropriate to d/c home once medically stable d/t current level of mobility and home set-up. PT recommending PT services upon d/c from [facility]. Eval Complexity Eval Charge Codes 47874 - Moderate Complexity PHYSICIAN CERTIFICATION: I certify the specified therapy services for Andry Olsen Robbi are required, authorized, and reviewed every 30 days.
--- NOTE | 2025-07-27 11:32 | HMH.PTWOUND ---
Rehab Wound Evaluation Rehab IP Wound Evaluation Start: 07/27/25 09:53 Freq: ONCE Status: Active Protocol: Document 07/27/25 11:29 PHOALAN (Rec: 07/27/25 11:32 PHORNE [id number]) Rehab PT Wound Assessment Subjective Subjective 79 yowf adm to [facility] with hyponatremia and weakness. PT acute wound consult received due to low angus scale score. Pt has skin tear identified to L knee which was present upon admission and being cared for appropriately by nursing staff. No current PT acute wound care needs identified. Plan/Recommendation Comment Pt has no current acute inpatient wound care needs. Nsg staff is caring for L knee wound appropriately and no sharp excisional debridement is currently necessary. Continue with current treatment. PHYSICIAN CERTIFICATION: I certify the specified therapy services for Andry Culp are required, authorized, and reviewed every 30 days.
--- NOTE | 2025-07-27 11:39 | EXP.CARD.CON ---
History of Present Illness History of Present Illness Consult date: 07/27/25 Requesting physician: Channing Garcia Consult reason: chest pain Chief complaint: NSTEMI Additional Medical History:: 1. CAD with prior stenting approximately 2011, Dr. Hastings, [place], [place] 2. Hypertension 3. Hyperlipidemia 4. Hyponatremia and hypomagnesemia, 07/2025 History of present illness: 79-year-old white female recently discharged from the hospital last week for UTI presented to the emergency department due to nausea, vomiting and increased urinary frequency with diarrhea overnight after taking first dose of cefdinir. Patient's magnesium and sodium noted to be low with troponins noted to be elevated at 0.17 initially then 0.18 and 0.17. Patient denies any chest pain, pressure or tightness. She does have exertional shortness of breath which is not new. She does have a history of increasing falls over the last year associated with a general decline in health. Cardiology consulted for evaluation recommendations. [facility] Disclaimer: The information contained in this section may have been updated after the patient was seen, as this information can be updated by other users. 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 Hyponatremia Abnormal weight loss Anorexia Hypoglycemia Postobstructive diuresis Acute urinary retention Adult failure to thrive Nausea Multiple fractures of pelvis with disruption of pelvic ring Hypochloremia Falls Trochanteric bursitis, right hip Skin tear of left upper extremity Contusion of elbow, left Contusion of hip, left Trochanteric bursitis, left hip Closed fracture of greater trochanter of femur Pain around toenail, right foot Ingrown toenail of right foot Closed nondisplaced fracture of fifth right metatarsal bone MARY (acute kidney injury) Enteritis Hypothyroidism Foot fracture, right Polymyalgia rheumatica syndrome History of back pain History of left heart catheterization Hyperlipidemia Hypertension Cataract COVID-19 Closed fracture of fourth metatarsal of right foot Nondisplaced fracture of fifth right metatarsal bone with routine healing Myocardial infarction HLD (hyperlipidemia) CAD (coronary artery disease) Rheumatoid arthritis Surgical History H/O cataract removal with insertion of prosthetic lens History of heart artery stent Previous back surgery H/O thyroidectomy History of appendectomy History of hysterectomy History of tonsillectomy Family History Other Cancer Heart attack Hypertension Social History Smoking Status: Former smoker tobacco type: cigarettes packs per day: 1 pack-years: 46 years smoked: 40 how long ago did patient quit smokin years alcohol intake: never substance use type: denies use current occupational status: retired Travel in the last 8 weeks?: None caregiver/support person: Yes () household members: spouse housing: house marital status: 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 needs: No Have you lived/traveled outside US in past 30 days?: No Contact w/someone who lives/traveled outside US past 30 days?: No Exposure to someone with infectious disease in past 14 days?: No Do you have a fever (greater than 100.4 F or 38 C)?: No Have you tested positive for COVID-19?: No Exposed to someone with COVID-19 in past 14 days?: No Do you have a sore throat?: No Do you have a cough?: No Do you have any weakness?: No Do you have any diarrhea?: No Are you experiencing any unusual bleeding?: No Do you have any muscle aches/pain?: No Do you have any abdominal pain?: No Are you experiencing loss of taste or smell?: No Review of Systems Review of Systems Review of systems:: pertinent systems reviewed and negative unless documented below *Cardiovascular Cardiovascular: Denies chest pain and Reports dyspnea on exertion *Respiratory Respiratory: Reports dyspnea on exertion *Gastrointestinal Gastrointestinal: Reports diarrhea, Reports nausea and Reports vomiting Exam Data for Last 24 hours Vital signs and Labs for Last 24 Hours: Temp Pulse Resp BP Pulse Ox O2 Del Method 97.6 F 110 H 18 118/80 97 Room Air 07/27/25 07:36 07/27/25 08:00 07/27/25 07:36 07/27/25 07:36 07/27/25 07:36 07/27/25 09:00 Laboratory Results - last 24 hr 07/25/25 15:13: Urine Sodium 109.0 H 07/26/25 06:50: Hgb 11.8 L D 07/27/25 05:51: WBC 8.5, RBC 3.56 L, Hgb 11.8 L, Hct 34.4 L, MCV 96.6, MCH 33.1 H, MCHC 34.3, RDW 12.9, Plt Count 332 D, MPV 9.6, Neut % (Auto) 60.5, Lymph % (Auto) 18.1, [place] % (Auto) 10.7 H, Eos % (Auto) 1.9, Baso % (Auto) 0.7, Neut # (Auto) 5.1, Lymph # (Auto) 1.5, [place] # (Auto) 0.9, Eos # (Auto) 0.2, Baso # (Auto) 0.1, Total Counted 100, Neutrophils % (Manual) 60, Band Neutrophils % 6.0, Lymphocytes % (Manual) 24, Monocytes % (Manual) 6, Eosinophils % (Manual) 4 H, Platelet Estimate Normal, RBC Morphology Normal, Sodium 124 L, Potassium 4.8 D, Chloride 94 L, Carbon Dioxide 19 L, Anion Gap 15.8 H, BUN 9 D, Creatinine 0.90, Estimated Creat Clear 48, Estimated GFR 61, Est GFR ( Amer) 73, Glucose 61 L D, Calcium 8.8 I & O for Last 24 hours: Intake & Output 07/24/25 07/25/25 07/26/25 07/27/25 11:59 11:59 11:59 11:59 Intake Total 510 / 510 640 / 640 Output Total 1895 / 1895 375 / 375 Balance -1385 / -1385 265 / 265 Weight 150 lb 142 lb 145 lb 14.4 oz Constitutional Constitutional: no acute distress *Routine Respiratory Exam Respiratory: Present CTA bilaterally; Absent wheezes *Routine Cardiovascular Exam Cardiovascular: Present RRR and murmur; Absent gallop or rubs *Routine Extremities Exam Extremities: Absent edema *Routine Neurological Exam Neurological: Present alert, oriented X3 and CN II-XII intact Meds Home Medications and Allergies Home Medications ?Medication ?Instructions ?Recorded ?Confirmed ?Type levothyroxine 112 mcg tablet 112 mcg PO DAILYDM 04/24/18 07/25/25 History hydroxychloroquine 200 mg tablet 200 mg PO DAILY 05/11/22 07/25/25 History acetaminophen 500 mg tablet 500 mg PO Q6HP PRN Mild Pain 07/15/24 07/25/25 History (Scale Score 1-4) cyclobenzaprine 5 mg tablet 5 mg PO HSP PRN muscle spasms 07/15/24 07/25/25 History melatonin 3 mg tablet 3 mg PO HSP Insomnia 07/15/24 07/25/25 History tramadol 50 mg tablet 50 mg PO Q6HP PRN Moderate Pain 07/15/24 07/25/25 History (Scale Score 5-6) carvedilol 12.5 mg tablet 12.5 mg PO BID 03/12/25 07/25/25 History potassium chloride 10 mEq 10 meq PO BID #60 caps 03/15/25 07/25/25 Rx capsule,extended release pravastatin 40 mg tablet 40 mg PO HS #30 tabs 03/15/25 07/25/25 Rx tamsulosin 0.4 mg capsule 0.4 mg PO HS 07/20/25 07/25/25 History spironolactone 25 mg tablet 25 mg PO DAILY #30 tabs 07/24/25 07/25/25 Rx cefdinir 300 mg capsule 300 mg PO BID 07/25/25 07/25/25 History New Prescriptions to Start Prescriptions: Allergies Allergy/AdvReac Type Severity Reaction Status Date / Time Sulfa (Sulfonamide Allergy Unknown Hives Verified 07/20/25 06:46 Antibiotics) (SULFA (SULFONAMIDE ANTIBIOTICS)) codeine Allergy Vomiting Verified 07/20/25 06:46 Penicillins Allergy Hives Verified 07/20/25 06:46 hydrocodone AdvReac Other Verified 07/20/25 06:46 Assessment and Plan *Assessment and plan (1) Non-ST elevation VA (NSTEMI): Status: Acute Category: Medical Code(s): I21.4 - Non-ST elevation (NSTEMI) myocardial infarction (2) Hypokalemia: Status: Acute Category: Medical Code(s): E87.6 - Hypokalemia (3) Acute hyponatremia: Status: Acute Category: Medical Code(s): E87.1 - Hypo-osmolality and hyponatremia (4) Hypomagnesemia: Status: Acute Category: Medical Code(s): E83.42 - Hypomagnesemia (5) Diarrhea: Status: Acute Qualifiers: Diarrhea type: unspecified type Qualified Code(s): R19.7 - Diarrhea, unspecified Category: Medical Code(s): R19.7 - Diarrhea, unspecified (6) Weakness: Status: Acute Category: Medical Code(s): R53.1 - Weakness (7) CAD (coronary artery disease): Status: Acute Qualifiers: Associated angina: unspecified whether angina present Coronary Disease-Associated Artery/Lesion type: [place] artery [place] vs. transplanted heart: [place] heart Qualified Code(s): I25.10 - Atherosclerotic heart disease of [place] coronary artery without angina pectoris Category: Medical Code(s): I25.10 - Atherosclerotic heart disease of [place] coronary artery without angina pectoris Plan 1. Recent UTI for which she was started on cefdinir with resultant nausea, vomiting diarrhea -Improved with switching to levofloxacin 2. Non-STEMI with elevated troponin in a patient with known coronary artery disease and chronic abnormal EKG (question old anterior VA) -She is on beta-cassy and statin therapy at home -Recommend adding aspirin -Echocardiogram pending -Patient is not ready to proceed with further workup at this time 3. Electrolyte disorders including hyponatremia, hypomagnesemia and hypokalemia -Improving with supplementation 4. Hypothyroidism, on replacement therapy Discussed options of medical therapy versus proceeding with left heart catheterization. At this time patient has decided that she does not want to proceed with anything at this time she would like to think about her options. Patient's daughter was in the room as well and all questions were answered. Echocardiogram shows EF slightly reduced in the 45-50% range with at least moderate mitral regurgitation. Clinically stable at this time for patient to be discharged home with follow-up in 1 to 2 weeks. Would recommend considering outpatient MURALI and cardiac cath. Home medication recommendations: Aspirin 81 mg daily Add Entresto 24/26 mg twice daily Continue carvedilol but reduce to 6.25 mg twice daily to allow for entresto. Continue pravastatin 40 mg daily Continue spironolactone 25 mg daily along with potassium 10 mEq twice daily.
--- NOTE | 2025-07-27 12:33 | HMH.PHAAMS2 ---
- Antimicrobial Stewardship Review 48 hour timeout review Stewardship interventions: 48 hour timeout review, culture & sensitivity review, reviewed - no change Comments: reviewed C&S, no growth currently, on empiric therapy
[2025-07-27] MEDS: LEVOFLOXACIN/D5W 750 MG/150 ML 750 MG/150 ML PIGGYBACK 100 MG IV (16:35)
--- NOTE | 2025-07-27 17:11 | PC.NURSE ---
Pt currently sitting up in bed eating dinner. Levaquin IV is infusing at this time. Pt has had some loose stools this shift. Stool specimen obtained but not enough to test via lab. Call light within reach.
--- NOTE | 2025-07-27 17:41 | PC.WOUNDNOTE ---
SMALL OPEN AREA AT THE TOP OF THE INTERGLUTEAL CLEFT. AREA PRESENT ON ADMISSION.
--- NOTE | 2025-07-27 19:21 | PC.NURSE ---
Spoke with MD Garcia about pt not voiding since DC F/C. Per MD Garcia. Scan bladder and insert F/C if residual is 600 or greater.
[2025-07-27] MEDS: TAMSULOSIN 0.4MG CAPSULE 0.4 MG PO (20:44)
--- NOTE | 2025-07-27 23:20 | PC.NURSE ---
Pt states she doesn't feel like she is able to urinate at this time. Bladder scan revealed 238ml.
[2025-07-28] VITALS: BP 124/70; PULSE 72; PULSE 73; RESP 16; TEMP 36.7; O2SAT 98
[2025-07-28 04:00] VITALS: BP 149/78; PULSE 78; PULSE 86; RESP 16; TEMP 36.7; O2SAT 97; BMI 23.4
--- NOTE | 2025-07-28 05:45 | PC.NURSE ---
Pt bladder scan revealed 436 ml. Pt still states she doesn't need to pee at this time.
[2025-07-28 06:19] LABS: Hematocrit 33.4 % (37.0-47.0); Hemoglobin 11.7 g/dL (12.2-16.2); Immature Granulocytes % 11.7 %; Mean Corpuscular HGB Conc 35.0 g/dL (31.8-35.4); Mean Corpuscular Hemoglobin 33.4 pg (27.0-31.2); Mean Corpuscular Volume 95.4 fl (81-99); Nucleated Red Blood Cells % 0 %; Platelet Count 378 K/mm3 (142-424); Red Blood Count 3.50 M/mm3 (4.20-5.40); Red Cell Distribution Width-SD 45.4 fL; White Blood Count 6.9 K/mm3 (4.8-10.8)
[2025-07-28 06:26] LABS: Chloride 94 mmol/L (98-107); Sodium 124 mmol/L (136-145)
[2025-07-28 06:27] LABS: Potassium 4.4 mmoL/L (3.5-5.1)
[2025-07-28 06:30] LABS: Anion Gap 15.4 mEq/L (5-15); Blood Urea Nitrogen 8 mg/dl (7-17); Calcium 8.8 mg/dl (8.4-10.2); Carbon Dioxide 19 mmol/L (22.0-30.0); Creatinine Clearance Estimated 50 mL/min (50-200); Creatinine,Serum 0.90 mg/dl (0.52-1.04); Estimated Glomerular Filt Rate 61 ml/min (>60); GFR (African American) 73 ML/MIN (>60); Glucose 79 mg/dl (74-100)
[2025-07-28] MEDS: LEVOTHYROXINE 112MCG (0.112MG) TAB 112 MCG PO (06:31)
--- NOTE | 2025-07-28 07:49 | P.PN_ITS ---
Subjective *Date: 07/28/25 *Time: 08:51 Interval history: Patient states she slept very little due to nursing interventions. She states she voided a large amount in her depends this morning. Bladder scan last evening showed between 200 and 300 cc. She states she started having diarrhea again of unknown amount. She has been using her depends. She ate a little bit yesterday. She worked with physical therapy and walked a short distance. She states she got dizzy. She also sat in the chair for an unknown length of time. Physical therapy recommended short-term rehab which she is agreeable to. Laboratory data this a.m. shows a sodium of 124 and a potassium of 4.4. Cardiology did see patient yesterday with the following assessment/plan: Plan 1. Recent UTI for which she was started on cefdinir with resultant nausea, vomiting diarrhea -Improved with switching to levofloxacin 2. Non-STEMI with elevated troponin in a patient with known coronary artery disease and chronic abnormal EKG (question old anterior MA) -She is on beta-cassy and statin therapy at home -Recommend adding aspirin -Echocardiogram pending -Patient is not ready to proceed with further workup at this time 3. Electrolyte disorders including hyponatremia, hypomagnesemia and hypokalemia -Improving with supplementation 4. Hypothyroidism, on replacement therapy Discussed options of medical therapy versus proceeding with left heart catheterization. At this time patient has decided that she does not want to proceed with anything at this time she would like to think about her options. Patient's daughter was in the room as well and all questions were answered. Echocardiogram shows EF slightly reduced in the 45-50% range with at least moderate mitral regurgitation. Clinically stable at this time for patient to be discharged home with follow-up in 1 to 2 weeks. Would recommend considering outpatient MURALI and cardiac cath. Home medication recommendations: Aspirin 81 mg daily Add Entresto 24/26 mg twice daily Continue carvedilol but reduce to 6.25 mg twice daily to allow for entresto. Continue pravastatin 40 mg daily Continue spironolactone 25 mg daily along with potassium 10 mEq twice daily. Exam Data for Last 24 hours Vital signs and Labs for Last 24 Hours: Temp Pulse Resp BP Pulse Ox O2 Del Method 98.1 F 86 16 149/78 H 97 Room Air 07/28/25 04:00 07/28/25 04:00 07/28/25 04:00 07/28/25 04:00 07/28/25 04:00 07/28/25 06:37 Laboratory Results - last 24 hr 07/27/25 05:51: Total Counted 100, Neutrophils % (Manual) 60, Band Neutrophils % 6.0, Lymphocytes % (Manual) 24, Monocytes % (Manual) 6, Eosinophils % (Manual) 4 H, Platelet Estimate Normal, RBC Morphology Normal 07/28/25 06:00: WBC 6.9, RBC 3.50 L, Hgb 11.7 L, Hct 33.4 L, MCV 95.4, MCH 33.4 H, MCHC 35.0, RDW 13.0, Plt Count 378, MPV 9.3, Neut % (Auto) 49.5, Lymph % (Auto) 22.2, [place] % (Auto) 13.6 H, Eos % (Auto) 1.7, Baso % (Auto) 1.3, Neut # (Auto) 3.4, Lymph # (Auto) 1.5, [place] # (Auto) 0.9, Eos # (Auto) 0.1, Baso # (Auto) 0.1, Sodium 124 L, Potassium 4.4, Chloride 94 L, Carbon Dioxide 19 L, Anion Gap 15.4 H, BUN 8, Creatinine 0.90, Estimated Creat Clear 50, Estimated GFR 61, Est GFR ( Amer) 73, Glucose 79, Calcium 8.8 I & O for Last 24 hours: Intake & Output 07/25/25 07/26/25 07/27/25 07/28/25 11:59 11:59 11:59 11:59 Intake Total 510 / 510 640 / 640 470 / 470 Output Total 1895 / 1895 575 / 575 0 / 0 Balance -1385 / -1385 65 / 65 470 / 470 Weight 150 lb 142 lb 145 lb 14.4 oz 149 lb 6 oz Constitutional Constitutional: no acute distress Comments: Conversant *Routine Respiratory Exam Respiratory: Present CTA bilaterally (Anterior and posteriorly) *Routine Cardiovascular Exam Cardiovascular: Present RRR (Monitor showing sinus rhythm in the 70s) and murmur *Routine Abdominal Exam Abdominal: Present soft, normoactive bowel sounds and distended; Absent tenderness *Routine Extremities Exam Extremities: Absent edema or calf tenderness Comments: Left lower extremity with clean dry dressing *Routine Neurological Exam Neurological: Present alert and oriented X3 Assessment and Plan *Assessment and plan (1) Non-ST elevation [place] (NSTEMI): Status: Acute Category: Medical Code(s): I21.4 - Non-ST elevation (NSTEMI) myocardial infarction (2) Hypokalemia: Status: Acute Category: Medical Code(s): E87.6 - Hypokalemia (3) Acute hyponatremia: Status: Acute Category: Medical Code(s): E87.1 - Hypo-osmolality and hyponatremia (4) Hypomagnesemia: Status: Acute Category: Medical Code(s): E83.42 - Hypomagnesemia (5) Diarrhea: Status: Acute Qualifiers: Diarrhea type: unspecified type Qualified Code(s): R19.7 - Diarrhea, un specified Category: Medical Code(s): R19.7 - Diarrhea, unspecified (6) Weakness: Status: Acute Category: Medical Code(s): R53.1 - Weakness (7) CAD (coronary artery disease): Status: Acute Qualifiers: Associated angina: unspecified whether angina present Coronary Disease- Associated Artery/Lesion type: [place] artery [place] vs. transplanted heart: [place] heart Qualified Code(s): I25.10 - Atherosclerotic heart disease of [place] coronary artery without angina pectoris Category: Medical Code(s): I25.10 - Atherosclerotic heart disease of [place] coronary artery without angina pectoris (8) Urinary retention: Status: Acute Category: Medical Code(s): R33.9 - Retention of urine, unspecified Plan Cardiology note appreciated. Spironolactone, Entresto started. Carvedilol decreased to 6.25 mg. And potassium decreased to 10 mill equivalents twice daily. Nursing will get patient up to bedside commode for voiding. Encourage patient to get up as well. Care management has secured a bed at [facility].. Patient agreeable to go to skilled facility for additional rehab. Dr. Garcia entry - Saw patient, agree with above note. OK to discharge today to [facility]. Will likely not need as much supplemental potassium since she will be taking Entresto and Aldactone. Plan to recheck labs in 1 week and f/u with [facility] cardiology in 2 weeks.
[2025-07-28 07:55] LABS: RBC Morphology Normal; Total Cells Counted 100
[2025-07-28 07:59] VITALS: BP 132/76; PULSE 87; RESP 18; TEMP 36.3; O2SAT 97
[2025-07-28 08:00] VITALS: PULSE 90
[2025-07-28] MEDS: ASPIRIN EC 81MG TABLET 81 MG PO (08:11)
[2025-07-28] MEDS: FAMOTIDINE 20MG TABLET 20 MG PO (08:13)
[2025-07-28] MEDS: SODIUM CHLORIDE 1,000MG TABLET 500 MG PO (08:13)
--- NOTE | 2025-07-28 09:24 | P.PN_ITS ---
Subjective Subjective Date: 07/28/25 Time: 09:24 Principal diagnosis: NSTEMI Interval history: 79-year-old white female sitting in bedside chair in no acute distress. No complaints of chest pain, pressure or tightness. Results of echocardiogram including moderate to severe mitral regurgitation discussed. Recommendation for left heart catheterization made patient again wishes to wait at this time Exam Data for Last 24 hours Vital signs and Labs for Last 24 Hours: Temp Pulse Resp BP Pulse Ox O2 Del Method 97.4 F L 87 18 132/76 97 Room Air 07/28/25 07:59 07/28/25 07:59 07/28/25 07:59 07/28/25 07:59 07/28/25 07:59 07/28/25 08:00 Laboratory Results - last 24 hr 07/28/25 06:00: WBC 6.9, RBC 3.50 L, Hgb 11.7 L, Hct 33.4 L, MCV 95.4, MCH 33.4 H, MCHC 35.0, RDW 13.0, Plt Count 378, MPV 9.3, Neut % (Auto) 49.5, Lymph % (Auto) 22.2, [place] % (Auto) 13.6 H, Eos % (Auto) 1.7, Baso % (Auto) 1.3, Neut # (Auto) 3.4, Lymph # (Auto) 1.5, [place] # (Auto) 0.9, Eos # (Auto) 0.1, Baso # (Auto) 0.1, Total Counted 100, Neutrophils % (Manual) 62, Band Neutrophils % 1.0, Lymphocytes % (Manual) 27, Monocytes % (Manual) 6, Eosinophils % (Manual) 2, Basophils % (Manual) 1.0, Myelocytes % 1, Platelet Estimate Normal, RBC Morphology Normal, Sodium 124 L, Potassium 4.4, Chloride 94 L, Carbon Dioxide 19 L, Anion Gap 15.4 H, BUN 8, Creatinine 0.90, Estimated Creat Clear 50, Estimated GFR 61, Est GFR ( Amer) 73, Glucose 79, Calcium 8.8 I & O for Last 24 hours: Intake & Output 07/25/25 07/26/25 07/27/25 07/28/25 11:59 11:59 11:59 11:59 Intake Total 510 / 510 640 / 640 570 / 570 Output Total 1895 / 1895 575 / 575 0 / 0 Balance -1385 / -1385 65 / 65 570 / 570 Weight 150 lb 142 lb 145 lb 14.4 oz 149 lb 6 oz Constitutional Constitutional: no acute distress *Routine Respiratory Exam Respiratory: Present CTA bilaterally *Routine Cardiovascular Exam Cardiovascular: Present RRR and murmur *Routine Extremities Exam Extremities: Absent edema Progress Note: A&P Assessment and plan (1) Non-ST elevation [place] (NSTEMI): Status: Acute (2) Hypokalemia: Status: Acute (3) Acute hyponatremia: Status: Acute (4) Hypomagnesemia: Status: Acute (5) Diarrhea: Status: Acute (6) Weakness: Status: Acute (7) CAD (coronary artery disease): Status: Acute (8) Urinary retention: Status: Acute Assessment and Plan Assessment and Plan for All Diagnoses:: 1. Recent UTI for which she was started on cefdinir with resultant nausea, vomiting diarrhea -Improved with switching to levofloxacin 2. Non-STEMI with elevated troponin in a patient with known coronary artery disease and chronic abnormal EKG (question old anterior FL) -She is on beta-cassy and statin therapy at home -Recommend adding aspirin -Echocardiogram shows EF 45-50% with at least moderate mitral regurgitation -Patient is not ready to proceed with further workup at this time 3. Electrolyte disorders including hyponatremia, hypomagnesemia and hypokalemia -Improving with supplementation 4. Hypothyroidism, on replacement therapy Stable for discharge home. Follow-up in our office in 1 to 2 weeks. Medication recommendations: Aspirin 81 mg daily Entresto 24/26 mg twice daily Carvedilol 6.25 mg twice daily Pravastatin 40 mg daily Spironolactone 25 mg daily with supplemental potassium as needed.
[2025-07-28] MEDS: POTASSIUM CHLORIDE 10MEQ TABLET.ER 10 MEQ PO (09:42)
[2025-07-28] MEDS: SPIRONOLACTONE 25MG TABLET 25 MG PO (09:43)
[2025-07-28] MEDS: SACUBITRIL/VALSARTAN 24-26MG TABLET 1 EACH PO (09:43)
--- NOTE | 2025-07-28 11:00 | EXP.DC.SUM ---
General Admission date:: 07/25/25 Discharge date: 07/28/25 HPI HPI HPI: Ms. Culp is a 79-year-old female who was just discharged yesterday from the hospital to finish oral treatment for UTI. She has a history significant for hyperlipidemia, hypothyroid, kidney stones, CAD with prior NM, cognitive decline over the past year or more. She presented to the ER today with concern for the development of nausea, vomiting, increased urinary frequency and diarrhea overnight. Got home last night and took her first dose of cefdinir. Developed multiple episodes of diarrhea. Was up urinating frequently per her . Denies fever. States she has become quite weak and needs significant assistance. Had evaluated for placement during last admission but showed some improvement during admission and patient elected to go home. On arrival to the ED, patient is globally weak. Has white count of 13.3. Kidney function normal with BUN 7, creatinine 0.8. Magnesium low at 1.4 and sodium low at 123 which appears to have some level of chronicity. Of concern, troponins elevated at 0.18 meaning criteria for NSTEMI. EKGs reviewed did not show manjinder ST elevation. Patient denying chest pain. Medicine consulted for further management of electrolyte disturbances, weakness, UTI and failure of outpatient therapy. On arrival to the floor, patient's belly is tender and appears to have a distended bladder. Answers questions appropriately but with brief answers and does not want to make eye contact. Denies chest pain or shortness of breath. States she has been falling over the past year at home. Has an abrasion on her left miller approximately the size of a quarter with skin tear of the epidermis. Family concerned about patient's decline and needing potential placement. Concern for difficulty being cared for at home. Would like therapy evals and reconsideration of placement. Patient on room air at this time. Hospital Course Hospital Course Hospital Course: On admission patient was felt to have an NSTEMI along with a resolving urinary tract infection failing out patient treatment. She also had nausea, vomiting and diarrhea. She had her magnesium replaced along with her potassium. She remained on Levaquin for her urinary tract infection. She was also noted to have urinary retention with a liter of urine in her bladder and had a Todd placed on admission. Cardiology was consulted on admission. Family was concerned about caring for her at home and therefore care management was consulted for possible placement. Physical therapy was also consulted. Patient improved every day. Her potassium normalized. She was able to eat a little bit had very poor appetite. She also was able to drink fluids. She had her Todd catheter removed and reportedly was able to void after this. She continued with some loose stools. Diarrhea panel was negative. Cardiology saw patient on 07/27/2025 who felt she did have an NSTEMI with elevated troponins. Medication changes were made with the addition of Entresto, continuation of spironolactone and her beta-cassy. Options were discussed with her for medical therapy versus proceeding with left heart cath. And at the time of the discussion she decided that she did not want to proceed with anything and would like to think about her options. Echocardiogram did show ejection fraction slightly reduced at 45 to 50% with at least a moderate mitral regurgitation. Physical therapy did see the patient. She was able to walk a few feet with help and walker. She reported some dizziness. 07/28/2025 she was felt stable to be discharged to [facility] for ongoing rehabilitation. She is to have labs repeated in 1 week and to follow-up with [facility] cardiology in 2 weeks. On this date patient was much more and animated. Exam Data for Last 24 hours Vital signs and Labs for Last 24 Hours: Temp Pulse Resp BP Pulse Ox O2 Del Method 97.4 F L 87 18 132/76 97 Room Air 07/28/25 07:59 07/28/25 07:59 07/28/25 07:59 07/28/25 07:59 07/28/25 07:59 07/28/25 09:00 Laboratory Results - last 24 hr 07/28/25 06:00: WBC 6.9, RBC 3.50 L, Hgb 11.7 L, Hct 33.4 L, MCV 95.4, MCH 33.4 H, MCHC 35.0, RDW 13.0, Plt Count 378, MPV 9.3, Neut % (Auto) 49.5, Lymph % (Auto) 22.2, [place] % (Auto) 13.6 H, Eos % (Auto) 1.7, Baso % (Auto) 1.3, Neut # (Auto) 3.4, Lymph # (Auto) 1.5, [place] # (Auto) 0.9, Eos # (Auto) 0.1, Baso # (Auto) 0.1, Total Counted 100, Neutrophils % (Manual) 62, Band Neutrophils % 1.0, Lymphocytes % (Manual) 27, Monocytes % (Manual) 6, Eosinophils % (Manual) 2, Basophils % (Manual) 1.0, Myelocytes % 1, Platelet Estimate Normal, RBC Morphology Normal, Sodium 124 L, Potassium 4.4, Chloride 94 L, Carbon Dioxide 19 L, Anion Gap 15.4 H, BUN 8, Creatinine 0.90, Estimated Creat Clear 50, Estimated GFR 61, Est GFR ( Amer) 73, Glucose 79, Calcium 8.8 I & O for Last 24 hours: Intake & Output 07/25/25 07/26/25 07/27/25 07/28/25 11:59 11:59 11:59 11:59 Intake Total 560 / 560 640 / 640 570 / 570 Output Total 1895 / 1895 575 / 575 0 / 0 Balance -1335 / -1335 65 / 65 570 / 570 Weight 150 lb 142 lb 145 lb 14.4 oz 149 lb 6 oz Constitutional Constitutional: no acute distress *Routine Respiratory Exam Respiratory: Present CTA bilaterally (A&P) *Routine Cardiovascular Exam Cardiovascular: Present RRR (70's on monitor) and murmur *Routine Abdominal Exam Abdominal: Present soft, normoactive bowel sounds and distended; Absent tenderness or guarding *Routine Extremities Exam Extremities: Absent edema or calf tenderness Comments: wound on left upper lower leg with dressing clean and dry *Routine Neurological Exam Neurological: Present alert and oriented X3 Comments: conversant and appropriate Results Data Completed and Pending Labs on day of discharge: Labs from last 24 hours 07/28/25 06:00 WBC 6.9 RBC 3.50 L Hgb 11.7 L Hct 33.4 L MCV 95.4 MCH 33.4 H MCHC 35.0 RDW 13.0 Plt Count 378 MPV 9.3 Neut % (Auto) 49.5 Lymph % (Auto) 22.2 [place] % (Auto) 13.6 H Eos % (Auto) 1.7 Baso % (Auto) 1.3 Neut # (Auto) 3.4 Lymph # (Auto) 1.5 [place] # (Auto) 0.9 Eos # (Auto) 0.1 Baso # (Auto) 0.1 Total Counted 100 Neutrophils % (Manual) 62 Band Neutrophils % 1.0 Lymphocytes % (Manual) 27 Monocytes % (Manual) 6 Eosinophils % (Manual) 2 Basophils % (Manual) 1.0 Myelocytes % 1 Platelet Estimate Normal RBC Morphology Normal Sodium 124 L Potassium 4.4 Chloride 94 L Carbon Dioxide 19 L Anion Gap 15.4 H BUN 8 Creatinine 0.90 Estimated Creat Clear 50 Estimated GFR 61 Est GFR ( Amer) 73 Glucose 79 Calcium 8.8 DS: Diagnosis Discharge Diagnosis (1) Non-ST elevation NM (NSTEMI): Status: Acute Code(s): I21.4 - Non-ST elevation (NSTEMI) myocardial infarction (2) Hypokalemia: Status: Acute Code(s): E87.6 - Hypokalemia (3) Acute hyponatremia: Status: Acute Code(s): E87.1 - Hypo-osmolality and hyponatremia (4) Hypomagnesemia: Status: Acute Code(s): E83.42 - Hypomagnesemia (5) Diarrhea: Status: Acute Code(s): R19.7 - Diarrhea, unspecified Qualifiers: Diarrhea type: unspecified type Qualified Code(s): R19.7 - Diarrhea, unspecified (6) Weakness: Status: Acute Code(s): R53.1 - Weakness (7) CAD (coronary artery disease): Status: Acute Code(s): I25.10 - Atherosclerotic heart disease of [place] coronary artery without angina pectoris Qualifiers: Associated angina: unspecified whether angina present Coronary Disease-Associated Artery/Lesion type: [place] artery [place] vs. transplanted heart: [place] heart Qualified Code(s): I25.10 - Atherosclerotic heart disease of [place] coronary artery without angina pectoris (8) Urinary retention: Status: Acute Code(s): R33.9 - Retention of urine, unspecified Meds Home Medications and Allergies Home Medications ?Medication ?Instructions ?Recorded ?Confirmed ?Type levothyroxine 112 mcg tablet 112 mcg PO DAILYDM 04/24/18 07/25/25 History hydroxychloroquine 200 mg tablet 200 mg PO DAILY 05/11/22 07/25/25 History acetaminophen 500 mg tablet 500 mg PO Q6HP PRN Mild Pain 07/15/24 07/25/25 History (Scale Score 1-4) cyclobenzaprine 5 mg tablet 5 mg PO HSP PRN muscle spasms 07/15/24 07/25/25 History melatonin 3 mg tablet 3 mg PO HSP Insomnia 07/15/24 07/25/25 History pravastatin 40 mg tablet 40 mg PO HS #30 tabs 03/15/25 07/25/25 Rx tamsulosin 0.4 mg capsule 0.4 mg PO HS 07/20/25 07/25/25 History spironolactone 25 mg tablet 25 mg PO DAILY #30 tabs 07/24/25 07/25/25 Rx aspirin 81 mg tablet,delayed 81 mg PO DAILY #30 tabs 07/28/25 Rx release carvedilol 6.25 mg tablet 6.25 mg PO DAILY #60 tabs 07/28/25 Rx potassium chloride 10 mEq 10 meq PO DAILY #30 tabs 07/28/25 Rx tablet,extended release(part/cryst) (Klor-Con M) sacubitril 24 mg-valsartan 26 mg 1 tab PO BID #60 tabs 07/28/25 Rx tablet (Entresto) tramadol 50 mg tablet 50 mg PO Q6H PRN pain #30 tabs 07/28/25 Rx tramadol 50 mg tablet 50 mg PO Q6HP PRN Moderate Pain 07/28/25 Rx (Scale Score 5-6) #30 tabs New Prescriptions to Start Prescriptions: aspirin [place],Channing carvedilol [place],Channing potassium chloride [Klor-Con M10] [place],Channing sacubitril-valsartan [Entresto] [place],Channing tramadol [place],Channing tramadol [place],Channing Allergies Allergy/AdvReac Type Severity Reaction Status Date / Time Sulfa (Sulfonamide Allergy Unknown Hives Verified 07/20/25 06:46 Antibiotics) (SULFA (SULFONAMIDE ANTIBIOTICS)) codeine Allergy Vomiting Verified 07/20/25 06:46 Penicillins Allergy Hives Verified 07/20/25 06:46 hydrocodone AdvReac Other Verified 07/20/25 06:46 Discharge Plan Disposition Patient Disposition: Xfer SNF Condition: Fair Discharge Order Discharge Orders: Discharge Order (Routine); Ordered 07/28/25 Ordered By: Channing Garcia Follow up Plan Follow up with: Luis Carlos Huerta MD [Staff Physician, Cardiology] - 08/11/25 2:30 pm Prescriptions/Medication Reconciliation: New sacubitril-valsartan [Entresto] 24-26 mg Tablet 1 tab PO BID Qty: 60 0RF carvedilol 6.25 mg Tablet 6.25 mg PO DAILY Qty: 60 0RF aspirin 81 mg Tablet,Delayed Release (Dr/Ec) 81 mg PO DAILY Qty: 30 0RF potassium chloride [Klor-Con M10] 10 mEq Tablet,Er Particles/Crystals 10 meq PO DAILY Qty: 30 0RF tramadol 50 mg tablet 50 mg PO Q6H PRN (Reason: pain) Qty: 30 0RF Continued hydroxychloroquine 200 mg tablet 200 mg PO DAILY levothyroxine 112 MCG tablet 112 mcg PO DAILYDM pravastatin 40 mg Tablet 40 mg PO HS Qty: 30 0RF tamsulosin 0.4 mg capsule 0.4 mg PO HS spironolactone 25 mg Tablet 25 mg PO DAILY Qty: 30 0RF melatonin 3 mg Tablet 3 mg PO HSP acetaminophen 500 mg Tablet 500 mg PO Q6HP PRN (Reason: Mild Pain (Scale Score 1-4)) cyclobenzaprine 5 mg Tablet 5 mg PO HSP PRN (Reason: muscle spasms) tramadol 50 mg Tablet 50 mg PO Q6HP PRN (Reason: Moderate Pain (Scale Score 5-6)) Qty: 30 0RF Discontinued carvedilol 12.5 mg tablet 12.5 mg PO BID potassium chloride 10 mEq Capsule, Extended Release 10 meq PO BID Qty: 60 4RF cefdinir 300 mg capsule 300 mg PO BID Problem Reconciliation Problems Reviewed?: Yes Patient Discharge Instructions ACTIVITY: Continue current activity DIET: continue same diet Additional Instructions: Please check BMP and CBC in 1 week. Patient Instructions: DI for Hyponatremia, DI for Hypomagnesemia, Catheter-Associated Urinary Tract Infection, Stop Light Infection Print Language: [place] Providers Primary Care Provider: Channing Garcia Admit Provider: Kp Marshall Attending Provider: Channing Garcia
[2025-07-28 11:47] VITALS: BP 120/72; PULSE 71; RESP 16; TEMP 36.4; O2SAT 98
[2025-07-28 12:00] VITALS: PULSE 70
== END 2025-07-28 12:19 | DRG 393 ==
LOC: ER 13:42 → 2ND 14:38
PROVIDERS: Admitting Provider Internal Medicine Adolescent Medicine; Emergency Provider Student in an Organized Health Care Education/Training Program; PCP Family Medicine; Visit Provider Family Medicine
DX: K52.1 Toxic gastroenteritis and colitis (principal); I21.4 Non-ST elevation (NSTEMI) myocardial infarction; E87.1 Hypo-osmolality and hyponatremia; N30.00 Acute cystitis without hematuria; E83.42 Hypomagnesemia; E87.6 Hypokalemia; E78.5 Hyperlipidemia, unspecified; E03.9 Hypothyroidism, unspecified; I25.10 Atherosclerotic heart disease of native coronary artery without angina pectoris; R53.1 Weakness; I34.0 Nonrheumatic mitral (valve) insufficiency; R11.2 Nausea with vomiting, unspecified; R33.9 Retention of urine, unspecified; T36.1X5A Adverse effect of cephalosporins and other beta-lactam antibiotics, initial encounter; I10 Essential (primary) hypertension; M06.9 Rheumatoid arthritis, unspecified; S80.812A Abrasion, left lower leg, initial encounter; X58.XXXA Exposure to other specified factors, initial encounter; B96.89 Other specified bacterial agents as the cause of diseases classified elsewhere; Z87.442 Personal history of urinary calculi; I25.2 Old myocardial infarction; Z95.5 Presence of coronary angioplasty implant and graft; Z91.81 History of falling; Z87.891 Personal history of nicotine dependence; Z79.890 Hormone replacement therapy; Z79.899 Other long term (current) drug therapy; Z88.5 Allergy status to narcotic agent; Z88.0 Allergy status to penicillin; Z88.2 Allergy status to sulfonamides
CPT/HCPCS: 36415; 51702; 51798; 74177; 80048; 80053; 81001; 82550; 83690; 83735; 84439; 84443; 84484; 84540; 85007; 85025; 87507; 93005; 93306; 97162; 97166; 97530; 97535; 99285; J1650; J1956; J2405; J3475; Q9967

== ENCOUNTER 2025-08-17 08:11 | Outpatient (CLI) | payer MEDICARE, OTHER, SELFPAY ==
--- OUTSIDE RECORDS SUMMARY | 2025-04-16 06:45 | XMS_ITS ---
Author Organization [facility] Address [address] [facility] [address] [address] [place] [id number] Care Team Providers Care Ornamental Metal Erector Apprentice Name Role Phone Raul Torres Primary Care [...] Burger 2024 02:12:21 PM > faxed to [facility] Podiatry Referral Priority Routine Reason Prefers [facility] location for left shoulder pain and stiffness Diagnosis 1 Adhesive capsulitis of left shoulder (M75.02) Referral Organization [facility] Referring Provider First Name Raul Lopez Referring Provider Last Name Melissa Referring Provider Speciality Family Pra ctice Referred Provider Occupational Therapy , Therapy Referred Provider Specialty Occupational Therapy General Notes Keira Burger 2024 09:20:05 AM > faxed to [facility] PT in [place] Referral Priority Routine REASON FOR VISIT Sinus [...] day; Duration: 90 days Active Vital Signs Blood pressure systolic 126 mm Hg 04/16/20 25 Blood pressure diastolic 88 mm Hg 025 Heart Rate 65 /min 04/16/2025 Height 65 in 04/16/2025 Weight 144.6 lbs 04/16/2025 BMI 24.06 kg/m2 04/16/2025 Encounters Encounter Location Date Provider Diagnosis [facility] [address] [facility] [address] [place] [id number] 04/16/2025 Raul Torres Acute sinusitis J01. 90 [...] 04/17/2025 04/17/2025, Zora [place] 04/18/2025 04/18/2025, Prefers [facility] location for left shoulder pain and stiffness, Therapy Occupational Therapy Next Appt Details Follow Up: 1 month, Reason: Medications Administered Medication Instructions Date of Administration Dosage Notes Dexamethasone 04/16/2025 1 mL Progress Notes * KWASI HUYNHDOB: [birth year] (79 yo F)Acc No.[id number]:04/16/2025 Progress Notes Patient: KWASI PANIAGUA Provider: Raul Torres M.D. :1945 A ge:79 Y S ex:Female Date:04/16/2025 Address:[address], [place], [id number] Subjective: * Chief Complaints: * 1 . [...] Hypertension, Hypothyroidism/goiter, Kidney stones, Allergic rhinitis, ASCVD: [place] - 09/2013-followed by Dr. Arrington q 6 months, Cataracts, Hyperuricemia, Inflammatory arthritis - Dr. Cheng, polymyalgia rheumatica - Dr. Cheng, Moderna Covid vaccine x2 Oct/Nov 2020. * Surgical History: T hyroidectomy/Goiter removal 1999, Back 2001, Total Hysterectomy 1992, Tonsillectomy child[facility], Cataract 10/2017. * Hospitalization/Major Diagno stic Procedure: k idney stones 1992, Heart Attack- [facility] 09/2013, Facial Pain, Sinus Blockage- [facility] ER 04/24/2018, Itching, Swelling in Hands- [facility] ER 10/21/2018, Multiple rib and pelvic fractures; hyponatremia; rheumatoid arthritis; ASCVD- 06/30-, Dehydration, Failure to Thrive, Acute Urinary Retention- [facility] 07/14-, [facility] : fall with multiple FX ribs on [...] shoulder? Referral To:Therapy Occupational Therapy??Occupational Therapy ?Reason:Prefers [facility], [place] location for left shoulder pain and stiffness [...] G 2211 Complex e/[place], [address] CBC WITH AUTO DIFF, 53015 VENIPUNCT, ROUTINE*, J1100 Dexamethasone, 76776 ADMINISTRATION OF INJECTION * Follow Up: 1 month * Images: Billing Information: * Visit Code: 91908 Office Visit, Est Pt., Level 4. Modifiers: 25 * Procedure Codes: G2211 Complex e/[place]. [address] CBC WITH AUTO DIFF. 34804 VENIPUNCT, ROUTINE*. J1100 Dexamethasone. 74445 ADMINISTRATION OF INJECTION. * Electronic signature of Raul Torres MD on 08/17/2025 at 08:16 AM EDT Sign off status: Pending * Provider: Raul Torres M.D. Date: 0 04/16/2025 Generated for Jerry panda/Kerwin/eTransmitting on: 1 08:16 AM EDT History and Physical Notes * HPI (History [...] Raul Torres Occupational T herapy, Therapy Prefers [facility] location for left shoulder pain and stiffness
--- OUTSIDE RECORDS SUMMARY | 2025-05-07 11:45 | XMS_ITS ---
Author Organization [facility] Address [address] [place] [id number] Care Team Providers Care Snow Removing Supervisor Name Role Phone Raul Torres Primary Care [...] Encounter Location Date Provider Diagnosis [facility] [address] [place] [phone] 05/07/2025 Raul Torres Inflammatory polyarthropathy M06.4 Assessments [...] ge:79 Y S ex:Female Date:05/07/2025 Address:[address], [place], [id number] Subjective: * Chief Complaints: * 1 . Cortisone shot. * HPI: R heumatology: She returns with a flare of joint pain in multiple joints, specifically her hands, elbows, shoulders, hips, and knees. She continues on daily prednisone and Plaquenil per her milk tanker driver. * ROS: D ERMATOLOGY: no R jodi. n o H bere. G ASTROENTEROLOGY: Nausea y es. n o V omiting. n o D iarrhea.? U ROLOGY: no D ifficulty urinating. n o B lood in urine. * Medical History: h yperlipidemia-followed by Dr. Arrington, Hypertension, Hypothyroidism/goiter, Kidney stones, Allergic rhinitis, ASCVD: [place] - 09/2013-followed by Dr. Arrington q 6 months, Cataracts, Hyperuricemia, Inflammatory arthritis - Dr. Cheng, polymyalgia rheumatica - Dr. Cheng, Moderna Covid vaccine x2 Oct/Nov 2020. * Surgical History: T hyroidectomy/Goiter removal 1999, Back 2001, Total Hysterectomy 1992, Tonsillectomy child, Cardiac Stent Placed-[facility]-Dr Arrington. Dr. Santo 10/19/2013, Cataract 10/2017. * Hospitalization/Major Diagno stic Procedure: k idney stones 1992, Heart Attack- [place] 09/2013, Facial Pain, Sinus Blockage- [facility] 04/24/2018, Itching, Swelling in Hands- [facility] 10/21/2018, Multiple rib and pelvic fractures; hyponatremia; rheumatoid arthritis; ASCVD- 06/30-, Dehydration, Failure to Thrive, Acute Urinary Retention- [facility] 07/14-, H : fall with multiple FX [...] on, J1010 Inj, methylpred acetate 1 mg, 68498 ADMINISTRATION OF INJECTION * Follow Up: p rn * Images: Billing Information: * Visit Code: 12934 Office Visit, Est Pt., Level 3. Modifiers: 25 * Procedure Codes: G2211 Complex e/m visit add on. J1010 Inj, methylpred acetate 1 mg. 01264 ADMINISTRATION OF INJECTION. * Electronic signature of Raul Torres MD on 08/17/2025 at 08:20 AM EDT Sign off status: Pending * Provider: Raul Torres M.D. Date: 0 05/07/2025 Generated for Jerry panda/Kerwin/Arthur on: 1 08:20 AM EDT History and Physical Notes * HPI (History of Present Illness) Category Sub-Category Detail Notes Category Not es Rheumatology She returns wit h a flare of joint pain in multiple joints, specifically her hands, elbows, shoulders, hips, and knees. She continues on daily prednisone and Plaquenil per her milk tanker driver. Examination Category Sub-Category Detail Notes Category Not es General Examination Heart: RSR Lungs: clear to auscultatio n Extremities: Chronic deformity wi th mild swelling of the joints of both hands. General Appearance: She ambulates with a walker. Affect is a bit more subdued
--- OUTSIDE RECORDS SUMMARY | 2025-05-19 06:00 | XMS_ITS ---
Author Organization [facility] Address [address] [facility] [address] [place] [id number] Care Team Providers Care Varnishing Unit Tool Setter Name Role Phone Raul Torres Primary Care [...] 102 Performing Lab: Notes/Report: Test performed by [email or web address] [facility] , [address], [place] [address] Gilmer Lowe MD, Annual Campaign Manager CLIA: [id number] Sodium 122 135-145 mmol/L Potassium 4.2 3.5-5.3 [...] 05/19/2025 Encounters Encounter Location Date Provider Diagnosis [facility] [address] [place] [id number] 05/19/2025 Raul Torres Hyponatremia E87.1 ; Muscle [...] ge:79 Y S ex:Female Date:05/19/2025 Address:[address] [facility], [place], [id number] Subjective: * Chief Complaints: * 1 . [...] Hypertension, Hypothyroidism/goiter, Kidney stones, Allergic rhinitis, ASCVD: [place] - 09/2013-followed by Dr. Arrington q 6 months, Cataracts, Hyperuricemia, Inflammatory arthritis - Dr. Cheng, polymyalgia rheumatica - Dr. Cheng, Moderna Covid vaccine x2 Oct/Nov 2020. * Surgical History: T hyroidectomy/Goiter removal 1999, Back 2001, Total Hysterectomy 1992, Tonsillectomy child, Cardiac Stent Placed-[facility]-Dr Arrington. Dr. Santo 10/19/2013, Cataract 10/2017. * Hospitalization/Major Diagno stic Procedure: k idney stones 1992, Heart Attack- [place] 09/2013, Facial Pain, Sinus Blockage- [facility] ER 04/24/2018, Itching, Swelling in Hands- [facility] ER 10/21/2018, Multiple rib and pelvic fractures; hyponatremia; rheumatoid arthritis; ASCVD- 06/30-, Dehydration, Failure to Thrive, Acute Urinary Retention- [facility] 07/14-, [facility] : fall with multiple FX ribs on [...] uscle weakness - M62.81 3 . B [place] 23.0-23.9, adult - Z68.23 Plan: * Treatment: [...] * Images: Billing Information: * Visit Code: 05984 Office Visit, Est Pt., Level 3. * Procedure Codes: G2211 Complex e/m visit add on. 1036F TOBACCO NON-USER. G8420 BMI<30 AND >=22 CALC & DOCU. G8783 BP SCR PRFRM RCMDD DEFIND SCR INTVL. G8752 MOST RECENT SYSTOLIC BP < 140MM HG. G8754 MOST RECENT DIASTOLIC BP < 90MM HG. * Electronic signature of Raul Torres MD on 08/17/2025 at 08:14 AM EDT Sign off status: Pending * Provider: Raul Torres M.D. Date: 0 05/19/2025 Generated for Jerry panda/Kerwin/Arthur on: 1 08:14 AM EDT History and Physical Notes * [...]
--- OUTSIDE RECORDS SUMMARY | 2025-05-26 10:45 | XMS_ITS ---
Author Organization [facility] Address [address] [place] [phone] Care Team Providers Care Acute Care Nurse Practitioner Name Role Phone Raul Torres Primary Care Provider [phone] Allergies Allergen (clinical drug ingredient) Drug/Non Drug [...] Reason For Referral Reason Dr. Lee at [facility] for hyponatremia/ possible adrenal insufficiency Diagnosis 1 Hyponatremia (E87.1) Referral Organization Jared Referring Provider First Name Raul Lopez Referring Provider Last Name Melissa Referring Provider [facility] ctice Referred Provider Endocrinology, . Referred Provider Specialty Endocrinolog y General Notes Keira Burger 2024 10:04:16 AM > faxed to [facility] Endo Referral Priority Routine Reason memory loss/ confusi on Diagnosis 1 Memory loss (R41.3) Referral Organization Jared Referring Provider First Name Raul Lopez Referring Provider Last Name Melissa Referring Provider [facility] ctice Referred Provider Radha Ignacio Referred Provider Specialty Neurology General Notes Keira Burger 2024 09:55:39 AM > faxed to [facility] Neurology, Keira Burger 05/29/2025 10:50:10 AM > [...] W/U Status Risk Notes Problem Memory loss (86518890) Memory loss (R41.3) Active confirmed Vital Signs Blood pressure systolic 110 mm Hg 05/26/20 25 Blood pressure diastolic 76 mm Hg 025 Heart Rate 72 /min 05/26/2025 Height 65 in 05/26/2025 Weight 146.2 lbs 05/26/2025 BMI 24.33 kg/m2 05/26/2025 Encounters Encounter Location Date Provider Diagnosis [facility] [address] [place] [id number] 05/26/2025 Raul Torres Hyponatremia E87.1 ; Memory loss R41.3 and BMI 24.0-24.9, adult Z68.24 Assessments Encounter Date Diagnosis (ICD Code) Assessment Notes Treatment Notes Treatment Clinical Notes Section Notes 05/26/2025 Hyponatremia (ICD-10 - E87.1) 05/26/2025 Memory loss (ICD-10 - R41.3) 05/26/2025 BMI 24.0-24.9, adult (ICD-10 - Z68.24) Plan Of Treatment Referrals Referral Date Details 05/26/2025 05/26/2025, Dr. Sophie pineda at [facility] for hyponatremia/ possible adrenal insufficiency, . Endocrinology 05/26/2025 05/26/2025, memory l oss/ confusion, Radha Ignacio Next Appt Details Follow Up: after consultatio n, Reason: Progress Notes * ANDRY HUYNHDOB: 7 (79 yo F)Acc No.[id number]:05/26/2025 Progress Notes Patient: ANDRY PANIAGUA Provider: Raul Torres M.D. :1945 A ge:79 Y S ex:Female Date:05/26/2025 Address:[address] [place] [address], [place], [id number] Subjective: * Chief Complaints: * 1 . [...] Total Hysterectomy 1992, Tonsillectomy child, Cardiac Stent Placed-[facility]-Dr Arrington. Dr. Santo 10/19/2013, Cataract 10/2017. * Hospitalization/Major Diagno stic Procedure: k idney stones 1992, Heart Attack- [place] 09/2013, Facial Pain, Sinus Blockage- [facility] ER 04/24/2018, Itching, Swelling in Hands- [facility] ER 10/21/2018, Multiple rib and pelvic fractures; hyponatremia; rheumatoid arthritis; ASCVD- 06/30-, Dehydration, Failure to Thrive, Acute Urinary Retention- [facility] 07/14-, [facility] : fall with multiple FX ribs on [...] M yvette loss - R41.3 ?3. B [place] 24.0-24.9, adult - Z68.24 Plan: * Treatment: [...] * Images: Billing Information: * Visit Code: 78201 Office Visit, Est Pt., Level 3. * [...] Sign off status: Pending * Provider: Raul Trores M.D. Date: 0 05/26/2025 Generated for Jerry panda/Kerwin/dArianitting on: 1 08:14 AM EDT History and [...] Torres Endocrinology, . Dr. Edy matos at [facility] for hyponatremia/ possible adrenal insufficiency 05/26/2025 Raul Torres Maria memory los s/ confusion
--- OUTSIDE RECORDS SUMMARY | 2025-05-28 04:20 | XMS_ITS ---
Author Organization [facility] Address 1210 [facility] [address] [place], [place] [phone] Care Team Providers Care Road Oiling Truck Driver Name Role Phone Raul Torres Primary Care Provider [phone] Results Component Value Reference Range Notes Urinalysis [...] Status Risk Notes Problem Altered mental status (548210835) Altered mental state (R41.82) Active confirmed Encounters Encounter Location Date Provider Diagnosis [facility] [address] [place] [phone] 05/28/2025 Raul Torres Altered mental state R41.82 Assessments Encounter Date Diagnosis (ICD Code) Assessment Notes Treatment Notes Treatment Clinical Notes Section Notes 05/28/2025 Altered mental state (ICD-10 - R41.82) Plan Of Treatment No Information Progress Notes * KWASI HUYNHDOB: 7 (79 yo F)Acc No.[id number]:05/28/2025 Patient: KWASI PANIAGUA Provider: Raul Torres M.D. :1945 A ge:79 Y S ex:Female Date:05/28/2025 Address:[address], [id number] Subjective: * Chief Complaints: * 1 . [...] Information: * Visit Code: * Procedure Codes: 37759 Urinalysis, no micro. * Electronic signature of Raul Torres MD on 08/17/2025 at 08:15 AM EDT Sign off status: Pending * Provider: Raul Torres M.D. Date: 0 05/28/2025 Generated for Jerry panda/Kerwin/Sonnysmitting on: 08:15 AM EDT
--- OUTSIDE RECORDS SUMMARY | 2025-06-16 12:30 | XMS_ITS ---
Author Organization [facility] Address [address] [facility] [address] [place] [phone] Care Team Providers Care Physician Credentialing Specialist Name Role Phone Raul Torres Primary Care Provider [phone] Allergies Allergen (clinical drug ingredient) Drug/Non Drug [...] 06/16/2025 Encounters Encounter Location Date Provider Diagnosis [facility] [address] [facility] [address] [place] [address], [place] [phone] 06/16/2025 Raul Torres Rheumatoid arthritis M06.9 ; [...] Date:06/16/2025 Address:[address], [place], [id number] Subjective: * Chief Complaints: * 1 . [...] Hypertension, Hypothyroidism/goiter, Kidney stones, Allergic rhinitis, ASCVD: [place] - 09/2013-followed by Dr. Arrington q 6 months, Cataracts, Hyperuricemia, Inflammatory arthritis - Dr. Cheng, polymyalgia rheumatica - Dr. Cheng, Moderna Covid vaccine x2 Oct/Nov 2020. * Surgical History: T hyroidectomy/Goiter removal 1999, Back 2001, Total Hysterectomy 1992, Tonsillectomy child, Cardiac Stent Placed-[facility]-Dr Arrington. Dr. Santo 10/19/2013, Cataract 10/2017. * Hospitalization/Major Diagno stic Procedure: k idney stones 1992, Heart Attack- [place] 09/2013, Facial Pain, Sinus Blockage- [facility] ER 04/24/2018, Itching, Swelling in Hands- [facility] ER 10/21/2018, Multiple rib and pelvic fractures; hyponatremia; rheumatoid arthritis; ASCVD- 06/30-, Dehydration, Failure to Thrive, Acute Urinary Retention- [facility] 07/14-, H : fall with multiple [...] on, J1010 Inj, methylpred acetate 1 mg, 99404 ADMINISTRATION OF INJECTION * Follow Up: 2 Months * Images: Billing Information: * Visit Code: 21283 Office Visit, Est Pt., Level 3. Modifiers: 25 * Procedure Codes: G2211 Complex e/m visit add on. J1010 Inj, methylpred acetate 1 mg. 62516 ADMINISTRATION OF INJECTION. * Electronic signature of Raul Torres MD on 08/17/2025 at 08:17 AM EDT Sign off status: Pending * Provider: Raul Torres M.D. Date: 0 06/16/2025 Generated for Joseloi amarilys/Kerwin/eTthanhitting on: 1 08:17 AM EDT History and Physical Notes * Examination Category Sub-Category Detail Notes Category Not es General Examination Heart: RSR Lungs: clear to auscultatio n Extremities: 1+ pedal and ankle e stephanie bilaterally. General Appearance: NAD
--- OUTSIDE RECORDS SUMMARY | 2025-07-15 07:25 | XMS_ITS ---
Author Organization [facility] Address [address] [place] [phone] Care Team Providers Care Mri Tech Name Role Phone Raul Torres Primary [...] Administered Encounters Encounter Location Date Provider Diagnosis [facility] [address] [facility] [address] [place] [phone] 07/15/2025 Raul Torres Encounter for immunization Z23 Assessments Encounter Date Diagnosis (ICD Code) Assessment Notes Treatment Notes Treatment Clinical Notes Section Notes 07/15/2025 Encounter for immunization (ICD-10 - Z23) Plan Of Treatment No Information Progress Notes * LINO KWASIDOB: 7 (79 yo F)Acc No.[id number]:07/15/2025 Patient: KWASI PANIAGUA Provider: Raul Torres M.D. :1945 A ge:79 Y S ex:Female Date:07/15/2025 Address:[address] [place] [address], [place], [phone] Subjective: * Chief Complaints: * 1 [...] M.D. Date: 0 07/15/2025 Generated for Jerry panda/Kerwin/rAthur on: 1 08:15 AM EDT
--- OUTSIDE RECORDS SUMMARY | 2025-07-21 06:45 | XMS_ITS ---
Author Organization Jared Address [address] [facility] [address] [facility] [address] [place] [id number] Care Team Providers Care Alternative Medicine Practitioner Name Role Phone Raul Torres Primary Care Provider REASON FOR VISIT foot still swelling Encounters Encounter Location Date Provider Diagnosis [place] [address] [facility] [address] [place] [phone] 07/21/2025 Raul Torres Plan Of Treatment No Information Progress Notes * KWASI HUYNHDOB: [birth year] (79 yo F)Acc No.[id number]:07/21/2025 Progress Notes Patient: KWASI PANIAGUA Provider: Raul Torres M.D. :1945 A ge:79 Y S ex:Female Date:07/21/2025 Address:[address] [facility], [place], [id number] Subjective: * Chief Complaints: * 1 . Foot still swelling. * Medical History: Objective: * Vitals: Assessment: Plan: * Treatment: * Images: Billing Information: * Visit Code: * Procedure Codes: * Electronic signature of Raul Torres MD on 08/17/2025 at 08:15 AM EDT Sign off status: Pending * Provider: Raul Torres M.D. Date: 07/21/2025 Generated for Jerry panda/Kerwin/Arthur on: 1 08:15 AM EDT
--- OUTSIDE RECORDS SUMMARY | 2025-08-04 10:30 | XMS_ITS ---
Author Organization [facility] Address [address] [place] [id number] Care Team Providers Care Stamp Collector Name Role Phone Raul Torres Primary Care Provider REASON FOR VISIT [facility] F/U Discharge Encounters Encounter Location Date Provider Diagnosis [facility] [address] [place] [id number] 08/04/2025 Raul Torres Plan Of Treatment No Information Progress Notes * KWASI HUYNHDOB: [birth year] (79 yo F)Acc No.[id number]:08/04/2025 Patient: KWASI PANIAGUA Provider: Raul Torres M.D. :1945 A ge:79 Y S ex:Female Date:08/04/2025 Address:[address] [place], [place], [id number] Subjective: * Chief Complaints: * 1 . H F/U Discharge. * Medical History: Objective: * Vitals: Assessment: Plan: * Treatment: * Images: Billing Information: * Visit Code: * Procedure Codes: * Electronic signature of Raul Torres MD on 08/17/2025 at 08:16 AM EDT Sign off status: Pending * Provider: Raul Torres M.D. Date: Generated for Jerry panda/Kerwin/Arthur on: 08:16 AM EDT
--- OUTSIDE RECORDS SUMMARY | 2025-08-17 08:14 | XMS_ITS | Encounter Summary ---
Author Organization [facility] Address [address] [place] [address] Care Team Providers Care [employer] Dean Name Role Phone Amparo Arrington MD Primary Care Provider [phone] Encounter Details Date Type Department Care Team (Late st Contact Info) Description 06/19/2025 Orders Only [facility] [address] [place] [address] Anita Luu Hyponatremia (Primary Dx); Vitamin [...] place to sleep or slept in a snf (including now)? No 07/01/2024 Utilities Answer Date [...] documented as of this encounter Care Teams [employer] Dean Relationship Specialty Start Date End Date Amparo Arrington MD [address] [place] [address] PCP - General 03/04/21 documented as of this encounter
--- OUTSIDE RECORDS SUMMARY | 2025-08-17 08:15 | XMS_ITS | Clinical Summary ---
Author Organization [facility] Address [address] [place] [address] Care Team Providers Care Pilot Control Operator Name Role Phone Amparo Arrington MD Primary Care Provider [phone] Allergies Active Allergy Reactions Criticality Noted Date [...] PMF's reviewed and stable PT/OT as tolerated [facility] Acquired hypothyroidism 06/30/2024 Overview (06/30/2024): Continue home levothyroxine Complicates all aspects of care Coronary artery disease invo lving [place] coronary artery of [place] heart without angina pectoris 06/30/2024 Overview (06/30/2024): [...] Department Care Team Description 06/19/2025 Orders Only [facility] [address] [place] [...] place to sleep or slept in a skilled nursing (including now)? No 07/01/2024 Utilities Answer Date [...] Wellness (AWV) 1945 [facility]-/Child/Adol SDOH Screenings 01/01/1946 [facility]- SDOH Screenings 1964 [facility]-Adult SDOH Screenings 1963 [facility]-Zoster Vaccines (1 of 2) 1965 [facility]-RSV Vaccine: 60+ Years or (1 - 1-dose 75+ series) 2021 [facility]SP-[id number]-27 Vaccine (9 - Moderna risk season) 2025 [...] Antibody Negative Negative 06/30/2024 2:20 AM EDT [facility] Blood Venous blood specimen / Unknown Venipuncture / Unknown 06/30/2024 1:15 AM EDT 06/30/2024 1:40 AM EDT us Sami Rowell MD LAB BLOOD ORDERABLES Final Re sult [facility] [address] [place] [address] from Last 3 Months or Most Recently Relevant to Health Maintenance Insurance MEDICARE [facility] Advance Directives * Full Code (Latest Code Status on File) Date Activated Date Inactivated Comments 07/04/2024 1:04 PM * Full Code Date Activated Date Inactivated Comments 06/30/2024 8:06 AM 07/04/2024 1:04 PM Question Answer Comments Patient has decision-making capacity? Yes Care Teams Pilot Control Operator Relationship Specialty Start Date End Date Amparo Arrington MD [address] [place] [address] [address] [place] [address] PCP - General 03/04/21
--- OUTSIDE RECORDS SUMMARY | 2025-08-17 08:19 | XMS_ITS | Data Portability ---
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 Lab rf (rheumatoid factor), serum 2023 [facility], [address] [place] [address], [id number], 11:20:43 ccp (cyclic citrullinat ed peptide) iga+igg, serum 2023 024 [facility], [address] [place] [address], [id number], 4 16:52:40 ESR (erythrocyt e sedimentati on rate), blood 2023 024 [facility], [address] [place] [address], [id number], 4 11:12:24 C reactive protein, QN, serum or plasma 2023 024 [facility], [address] [place] [address], [address], 4 11:20:45 Mycobacteri um tuberculosi s stimulated gamma interferon, qual, blood 2023 024 [facility], [address] [place] [address], [id number], 4 02:43:42 hepatitis C Ab, serum 2023 024 [facility], [address] [place] [address], [address], 4 11:39:06 ESR (erythrocyt e sedimentati on rate), blood 2023 024 [facility], [address] [place] [address], [id number], 4 11:13:45 C reactive protein, QN, serum or plasma 2023 024 [facility], [address] [place] [address], [id number], 4 11:26:25 Referral None recorded. Procedures None recorded. Surgeries None recorded. Imaging None recorded. Medication Orders prednisone 5 mg tablet 2024 025 [facility] [address] [place], [address], 5 10:42:41 Cymbalta 30 mg capsule,del ayed release 2023 024 [facility] [address], [address] [place], [address], 4 10:15:00 Depo-Medrol 80 mg/mL suspension for injection 2023 024 [facility] [address] [place], [address], 4 10:45:28 Patient TargetsNo targets recorded. Patient InstructionsNo instructions recorded. Reason for Referral None Reported. Results Created Date Observation Date Name Description Value Unit Range Abnormal Flag Note LastModifiedBy Organization Detail LastModifiedTime 10/25/1910/25/2023 ESR, AUTOM ATED ESR, automated 7 mm 0-29 normal Not Available [facility] [address] [place] [address], [id number], 10/25/2023 11:13:45 10/25/19 24 10/25/2023 C REACT KASANDRA PROTE IN C reactive protein 0.17 mg/dL 0.00-0 .49 normal Not Available [facility] [address] [place] [address], [address], 10/25/2023 11:26:25 05/07/20 24 05/07/2024 ESR, AUTOM ATED ESR, automated 12 mm 0-29 normal Not Available [facility] [address] [place] [address], [id number], 05/07/2024 11:12:24 05/07/20 24 05/07/2024 RF SCREE N, QUANT . rf screen, quant. <10.0 [IU]/ mL 0.0-13 .9 normal Not Available [facility] [address] [place] [address], [id number], 05/07/2024 11:20:43 05/07/20 24 05/07/2024 C REACT KASANDRA PROTE IN C reactive protein 0.17 mg/dL 0.00-0 .49 normal Not Available [facility] [address] [place] [address], [address], 05/07/2024 11:20:45 05/07/20 24 05/07/2024 HEPAT ITIS C AB SCR, REFLE X HCVQT hcab scr, reflex viral RNA qt NONREA CTIVE nonrea ctive normal Antib odies to HCV were not detec beth; does not exclu de the possi bilit y of expos ure to HCV. Not Available [facility] [address] [place] [address], [address], 05/07/2024 11:39:06 05/07/20 24 05/09/2024 ANTI- CCP anti-ccp <16 units normal Refer ence Range Negat kasandra: <20 Weak Posit kasandra: 20-39 Moder ate Posit kasandra: 40-59 Stron g Posit kasandra: >59 Not Available [facility] [address] [place] [address], [address], 05/09/2024 16:52:40 05/07/20 24 05/10/2024 QUANT IFERO N TB GOLD qtb gold NEGATI VE negati ve normal Negat kasandra test resul t. M. tuber culos is compl ex infec tion unlik erin. Not Available [facility] [place], [address], 05/15/2024 15:49:02 05/07/20 24 05/10/2024 QUANT IFERO N TB GOLD nil 0.01 IU/mL normal Not Available [facility] [place], [address], 05/15/2024 15:49:02 05/07/20 24 05/10/2024 QUANT IFERO N TB GOLD mitogen nil >10.00 IU/mL normal Not Available [facility] [place], [address], 05/15/2024 15:49:02 05/07/20 24 05/10/2024 QUANT IFERO N TB GOLD TB1 nil 0.00 IU/mL normal Not Available [facility] [address] [place], [address], 05/15/2024 15:49:02 05/07/20 24 05/10/2024 QUANT IFERO [...] dionne miles e refer to https ://ed ucati on.qu blayne Gigmax. PanGenX/f aq/FA Q204 (This link is being provi ded for infor uday cormier/ toi tamayo l purpo ses only. ) Not Available [facility] [address] [place], [address], 05/15/2024 15:49:02 Result Notes None recorded. Problems Name Problem SNOMED Code Status Onset Date Resolution Date Notes Provider Name and Address Organization Details Recorded Time Hyperuricemia 21140406 Active 2017 ARLENE MEI, DIGITAL CONTENT SPECIALIST [address] [place], [address], [facility] 8 15:44:58 Problem Notes None recorded. Procedures Surgical History Date Name Laterality Status Provider Name and Address Organization Details Recorded Time Remove tonsils and adenoids completed [facility] 12/19/2018 09:47:28 Removal of thyroid completed [facility] 12/19/2018 09:47:47 Imaging Results None recorded. Procedure Notes None recorded. Medical Equipment None Reported. Allergies Allergen ID Allergen Name Allergen Category Reaction Reaction Severity Criticality Documentation Date Start Date Code Code System Note Provider Name and Address Organization Details Recorded Time 686837 Substance with sulfonami de structure and antibacte rial mechanism of action (substanc e) medicatio n Not available Not available Not available 09/15/20162014 81248 8003 SNOMED Comme nt: Creat ed By: Rayna Gonzalez; Creat ed Date: 2014 10:04 :26 AM; Not Available [facility] 6 09:13:41 [id number] codeine medicatio n Not available Not available Not available 09/15/20162014 2670 RxNorm Comme nt: Creat ed By: Rayna Gonzalez; Creat ed Date: 2014 10:03 :51 AM; Not Available [facility] 6 09:37:20 Medications Name Sig Start Date [...] levothyr oxine; Dosage:1 ; refills: 0; Quantity :45088 mcg Not Available Not Available Not Available [...] Updated DateTime 4 167.64 cm 24.7 kg/m2 80456.6 3 g 16 /min 67 /min 96 % 96 % 152/90 mm[Hg] Frieda Mcmahon [facility] 10:07:20 Date Recorded Body height Body mass index (BMI) Body weight Provider Name and Address Organization Details Last Updated DateTime 10/28/2024 167.64 cm 24.7 kg/m2 41788.63 g [facility] 10/28/2024 13:15:40 Date Recorded Body height Body mass index (BMI) Body weight Respiratory rate Heart rate Oxygen saturation Oxygen saturation in Arterial blood by Pulse oximetry Systolic And Diastolic Provider Name and Address Organization Details Last Updated DateTime 4 167.64 cm 24.7 kg/m2 69989.6 3 g 16 /min 69 /min 96 % 96 % 120/80 mm[Hg] [facility] 4 10:42:58 Date Recorded Body height Respiratory rate Body mass index (BMI) Body weight Oxygen saturation Oxygen saturation in Arterial blood by Pulse oximetry Heart rate Systolic And Diastolic Provider Name and Address Organization Details Last Updated DateTime 5 167.64 cm 16 /min 24.7 kg/m2 79177.6 3 g 97 % 97 % 68 /min 126/82 mm[Hg] Arash [facility] 5 10:34:11 Date Recorded Body height Body mass index (BMI) Body weight Respiratory rate Heart rate Oxygen saturation Oxygen saturation in Arterial blood by Pulse oximetry Systolic And Diastolic Provider Name and Address Organization Details Last Updated DateTime 4 167.64 cm 24.7 kg/m2 06560.6 3 g 16 /min 86 /min 97 % 97 % 122/80 mm[Hg] [facility] 4 09:59:55 Social History Question Answer Notes LastModified by Jamgl[employer] Details LastModified Time Tobacco Smoking Status Former Smoker January [facility] 10/26/2017 14:04:04 How Much Tobacco Do You Chew? None Information not available 06/19/2019 What Was The Date Of Your Most Recent Tobacco Screening? 01/27/2025 [email or web address] Information not available 01/27/2025 How Much Tobacco Do You Smoke? 1 PPD Information not available 06/19/2019 How Many Years Have You Smoked Tobacco? 40 Information not available 06/19/2019 Have You Recently Traveled Abroad? No [email or web address] Information not available 10/24/2022 Sex: Unknown Functional Status Question Answer Note LastModified by Organizat ion Details LastModified Time What is your level of alcohol consumption? None [email or web address] Information not available 12/19/2018 Do you or [...] ICD10 Code Diagnosis IMO Codes Diagnosis Note [id number] ARLENE MEI APRN [facility] [address] [place] [address] 10/26/2017 13:52:29 10/26/2017 14:49:45 Pain of multiple joints 53444638 M25.50 71 year old female is here [...] go over results. Anti-nucle ar factor detected 363191382 R76.8 As detailed above OPAL obtained in 2013 was 1:160 homogenous .Recently checked per PCP and was homogenous 1:320.Will obtain lupus panel today. [id number] ARLENE MEI APRN [facility] [address] [place] [address] 11/08/2017 10:21:14 11/12/2017 08:10:02 Hyperuricemia 02641193 E79.0 Hyperurice miaPatient reports episodes of heat [...] 3 months, to recheck uric acid level. [id number] ROSE BASS MD [facility] [address] [place] [address] 11/04/2018 10:30:43 11/07/2018 07:59:17 Inflammatory polyarthropathy 451984242 M06.4 very pleasant 72-year-ol d female with [...] she was comfortabl e with the plan. [id number] ROSE BASS [facility] [address] [place] [address] 12/19/2018 09:01:43 12/20/2018 08:50:39 Polymyalgia rheumatica 64281359 M35.3 clinically looks so much better. Active and passive range of motion. She has palpable pulses without any jaw tenderness or temporal tenderness . I would like her to maintain prednisone at 5 mg once a day. Inflammato ry polyarthropathy 579925438 M06.4 in terms of inflammato ry arthritis, [...] Her baseline eye examinatio n is stable. [id number] ROSE BASS MD [facility] [address] [address] 06/19/2019 09:47:18 06/24/2019 08:38:26 Polymyalgia rheumatica 11732085 M35.3 chronic disease and under excellent control. In clinical remission. Excellent Range of motion. No physical limitation s noted. I would like her to maintain prednisone at 5 mg once a day. Inflammato ry polyarthropathy 997653176 M06.4 chronic polyarticu lar inflammato ry arthritis associated with PMR remains in clinical remission. I would like her to continue with hydroxychl oroquine at 200 mg once a day. [id number] ROSE BASS MD [facility] [address] [place] [address] 06/21/2020 07:59:24 06/21/2020 11:07:16 Polymyalgia rheumatica 14681119 M35.3 74-year-ol d female with chronic polymyalgi [...] headaches or vision changes. Inflammato ry polyarthropathy 817765020 M06.4 chronic polyarticu lar inflammato ry arthritis associated with PMR. fairly stable. maintain hydroxychl oroquine 200 mg twice a [id number] ROSE BASS MD [facility] [address] [place] [address] 09/29/2020 10:12:08 09/29/2020 10:38:53 Polymyalgia rheumatica 15517236 M35.3 74-year-ol d female with chronic polymyalgi [...] follow-up in 3 months Inflammato ry polyarthropathy 959146381 M06.4 associated inflammato ry arthritis. Symptomati marvin joint pains as detailed above. Medication s As described above combinatio n of hydroxychl oroquine and prednisone . Follow-up in 3 months. [id number] ROSE BASS MD [facility] [address] [place] [address] 12/29/2020 10:28:14 12/29/2020 11:52:19 Polymyalgia rheumatica 62973916 M35.3 74-year-ol d female with chronic polymyalgi [...] n once a year. Inflammato ry polyarthropathy 685809716 M06.4 Chronic and associated with polymyalgi a rheumatica . Currently clinically stable. Maintain the combinatio n of prednisone as well as hydroxychl oroquine as stated above. [id number] ROSE BASS [facility] [address] [place] [address] 04/29/2021 09:27:28 04/29/2021 10:15:19 Inflammatory polyarthropathy 574875845 M06.4 Chronic and associated with polymyalgi a rheumatica . has done well. Isabelle khan not able to load the prednisone dose and is currently on prednisone 10 mg alternatin g with 5 mg every other day. She also takes hydroxychl oroquine 200 mg twice a day. Must need to follow with eye examinatio n once a year Polymyalgi a rheumatica 54491117 M35.3 75-year-ol d female with chronic polymyalgi a rheumatica . Clinically stable on the current dose of prednisone as detailed above. No stigmata for giant cell arteritis. Repeat the ESR. Follow with eye examinatio n once a year. Long-term drug therapy 983957441 Z79.899 Of pain last follow-up on polymyalgi a rheumatica and inflammato ry arthritis. Bone density test needs to be done every 2 years. Maintain calcium and vitamin D on account of risk for osteoporos is on steroids. Also suggested to follow up with a bone density test with her primary care physician [id number] ROSE BASS MD [facility] [address] [place] [address] 11/02/2021 12:56:26 11/02/2021 13:19:32 Inflammatory polyarthropathy 568705948 M06.4 Dwcfo67-ed ar-old with polyarthri tis Chronic and stable. The current combinatio n of prednisone and hydroxychl oroquine is very helpful. Refills were given.Foll ow-up in 6 months Polymyalgi a rheumatica 68802477 M35.3 75-year-ol d female with chronic polymyalgi a rheumatica . Clinically stable on the current dose of prednisone 10 mg alternatin g with 5 mg every other day along with hydroxychl oroquine 200 mg twice a day. No stigmata for giant cell arteritis. Repeat the ESR. Follow with eye examinatio n once a year. Long-term drug therapy 211958506 Z79.899 Must follow-up with an eye examinatio n every year. Bone density test every 2 years. Maintain calcium vitamin D. Also suggested to follow up with a bone density test with her primary care physician [id number] ROSE BASS MD [facility] [address] [place] [address] 05/01/2022 08:17:48 05/01/2022 15:37:51 Inflammatory polyarthropathy 103052714 M06.4 76- year-old with polyarthri tis Seronegati [...] ow-up in 6 months Polymyalgi a rheumatica 02216388 M35.3 76-year-ol d female with chronic polymyalgi a rheumatica . Clinically stable. No proximal muscle pain or weakness reported.N o stigmata for giant cell arteritis. Last ESR 04/29/2021 9 mm/h Repeat the ESR. Follow with eye examinatio n once a year. Long-term drug therapy 861236728 Z79.899 Must follow-up with an eye examinatio n every year. Bone density test every 2 years. Maintain calcium vitamin D. She typically follows the bone density test with her PCP. She will get us a copy. [id number] ROSE BASS MD [facility] [address] [place] [address] 10/24/2022 13:59:01 10/25/2022 14:30:30 Inflammatory polyarthropathy 978458578 M06.4 76- year-old with polyarthri tisSeroneg ative [...] renal toxicity. Refills given Polymyalgi a rheumatica 65905090 M35.3 76-year-ol d female with chronic polymyalgi a rheumatica .From the PMR point of view looks stable.No proximal muscle pain or weakness reported.N o stigmata for giant cell arteritis. Last ESR 04/29/2021 9 mm/h Repeat ESR today Long-term drug therapy 342628794 Z79.899 Must follow-up with an eye examinatio n every year While taking the hydroxychl oroquine. On account of corticoste roid use, osteoporos is, osteonecro sis risk were reviewed. Weight gain diabetes also reviewed. Must follow with a bone density every 2 years [id number] ROSEROMMEL BASS MD [facility] [address] [place] [address] 04/03/2023 13:22:18 04/05/2023 04:49:45 Inflammatory polyarthropathy 531631364 M06.4 77- year-old with polyarthri tisSeroneg ative [...] toxicity. Follow-up 6 months Polymyalgi a rheumatica 06260148 M35.3 77-year-ol d female with chronic polymyalgi [...] prednisone resulted in flare. Long-term drug therapy 738119383 Z79.899 Must follow-up with an eye examinatio n every year While taking the hydroxychl oroquine. On account of corticoste roid use, osteoporos is, osteonecro sis risk were reviewed. Weight gain diabetes also reviewed. Must follow with a bone density every 2 years [id number] ROSE BASS MD [facility] [address] [place] [address] 10/25/2023 09:56:13 10/26/2023 15:37:58 Inflammatory polyarthropathy 883870715 M06.4 77- year-old with polyarthri tisSeroneg ative [...] toxicity. Follow-up 3 months Polymyalgi a rheumatica 48534592 M35.3 77-year-ol d female with chronic polymyalgi [...] her current treatment plan. Long-term drug therapy 003213244 Z79.899 Must follow-up with an eye examinatio n every year While taking the hydroxychl oroquine. On account of corticoste roid use, osteoporos is, osteonecro sis risk were reviewed. Weight gain diabetes also reviewed. Must follow with a bone density every 2 years [id number] ROSE BASS MD [facility] [address] [place] [address] 01/21/2024 10:13:42 01/22/2024 04:18:34 Inflammatory polyarthropathy 452745401 M06.4 78- year-old with polyarthri tisSeroneg ative rheumatoid arthritis. Clinically stable without any active disease. On maintenanc e hydroxychl oroquine 200 mg [...] toxicity. Follow-up 3 months Polymyalgi a rheumatica 79622351 M35.3 78-year-ol d female with chronic polymyalgi [...] CRP 10/25/2023 is normal Long-term drug therapy 925316189 Z79.899 Must follow-up with an eye examinatio n every year While taking the hydroxychl oroquine. On account of corticoste roid use, osteoporos is, osteonecro sis risk were reviewed. Weight gain diabetes also reviewed. Must follow with a bone density every 2 years Fibromyalgia 972865793 M 79.7 Symptomati c with diffuse fibromyalg ia tender points. Discussed the diagnosis of fibromyalg ia. Educated about the disease. On account of fibromyalg ia pain, suggested the addition of cymbalta. Side effect profile reviewed. Prescripti on sent. Breast reduction discussed. Follow up in March 2024. [id number] ROSE BASS MD [facility] [address] [place] [address] 05/07/2024 09:49:06 05/08/2024 04:38:13 Inflammatory polyarthropathy 997635758 M06.4 78- year-old with polyarthri tisSeroneg ative [...] toxicity. Follow-up 3 months Polymyalgi a rheumatica 72271468 M35.3 78-year-ol d female with chronic polymyalgi [...] ESR and CRP today. Long-term drug therapy 487615246 Z79.899 Must follow-up with an eye examinatio n every year While taking the hydroxychl oroquine. On account of corticoste roid use, osteoporos is, osteonecro sis risk were reviewed. Weight gain diabetes also reviewed. Must follow with a bone density every 2 yearsTB and hep c test today. Fibromyalgia 224709758 M 79.7 Symptomati c with diffuse fibromyalg ia tender points. Discussed the diagnosis of fibromyalg ia. Educated about the disease. On account of fibromyalg ia pain, suggested the addition of cymbalta. Side effect profile reviewed. Prescripti on sent. Breast reduction discussed. Follow up in March 2024. [id number] ROSE BASS [facility] [address] [place] [address] 10/28/2024 13:15:11 10/29/2024 09:41:27 Inflammatory polyarthropathy 850131955 M06.4 78- year-old with polyarthri tisSeroneg ative [...] toxicity. Follow-up 3 months Polymyalgi a rheumatica 31168656 M35.3 78-year-ol d female with chronic polymyalgi a rheumatica .Asymptoma tic. On combinatio n of prednisone and hydroxychl oroquine as detailed above. We have talked about Cliffordbrianra. She would rather hold off on it. Long-term drug therapy 957407529 Z79.899 Must follow-up with an eye examinatio n every year While taking the hydroxychl oroquine. On account of corticoste roid use, osteoporos is, osteonecro sis risk were reviewed. Weight gain diabetes also reviewed. Must follow with a bone density every 2 yearsTB and hep c test today. Fibromyalgia 574822063 M 79.7 Clinically stable. No complaints . Pains are well-contr olled. Continue with gabapentin 100 mg every 8 hours Follow-up in 3 months [id number] ROSE BASS [facility] [address] [place] [address] 01/27/2025 10:22:01 01/28/2025 04:37:03 Inflammatory polyarthropathy 404247053 M06.4 78- year-old with polyarthri tisSeroneg ative [...] toxicity. Follow-up 3 months Polymyalgi a rheumatica 28239421 M35.3 78-year-ol d female with chronic polymyalgi [...] hold off on it. Long-term drug therapy 904163508 Z79.899 Must follow-up with an eye examinatio n every year While taking the hydroxychl oroquine. On account of corticoste roid use, osteoporos is, osteonecro sis risk were reviewed. Weight gain diabetes also reviewed. Must follow with a bone density every 2 years Will repeat the labs on her visit in April. Fibromyalgia 631525752 M 80.7 Clinically stable. No complaints . [...] Member ID Valdez Member ID Guarantor Name 07/31/2025 1 [place] Andry Culp [id number] Andry Culp 05/16/2024 2 [employer] Andry Culp [id number] Andry Culp 07/31/2025 2 [employer] (MEDICARE SUPPLEMENT) PLAN G Andry Culp [id number] Andry Culp Notes Date Note Type Note [...] headaches or jaw pain. ROSE BASS MD [address] [place] [address], [phone], [facility] 10/25/2023 10:45:26 01/21/2024 text/html ROS as [...] headaches or jaw pain. ROSE BASS MD [address] [place] [address], [address], [facility] 01/21/2024 16:55:07 05/07/2024 text/html ROS as [...] headaches or jaw pain. ROSE BASS MD [address] [place] [address], [address], [facility] 05/07/2024 16:46:44 10/28/2024 text/html ROS as noted in the HPI Visit today is being conducted via telehealth using both audio/video. The patient confirms that he/she is physically located in [place] at the time of this visit. Patient [...] headaches or jaw pain. ROSE BASS MD [facility] [place], [address], [facility] 10/28/2024 13:30:53 01/27/2025 text/html ROS as [...] pain. No vision changes. ROSE BASS MD [facility] [place], [address], [facility] 01/27/2025 11:01:52 OBGyn Episode No OBEpisode recorded.
--- OUTSIDE RECORDS SUMMARY | 2025-08-17 08:19 | XMS_ITS | Clinical Summary ---
Author Organization 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
--- OUTSIDE RECORDS SUMMARY | 2025-08-17 08:20 | XMS_ITS | Patient Health Record ---
Author Organization [facility] Address [address] [facility] [address] [place] [id number] Care Team Providers Care Inside Sales Consultant Name Role Phone Raul Torres Primary Care Provider Marie Helm Unavailable [phone] Oneida Edwards Unavailable [phone] Allergies Allergen (clinical drug ingredient) Drug/Non Drug [...] 400 P-Basic Metabolic Panel (BMP ) Reviewed date:05/26/2025 10:23:05 PM Interpretation:Na 122, cl 86, gluc 102 Performing Lab: Notes/Report: Test performed by [facility] [address] , [address], [place] [address] Gilmer Lowe MD, Power Distribution Engineer CLIA: [id number] Sodium 122 135-145 mmol/L Potassium 4.2 3.5-5.3 [...] 1.015 Ketone neg Bili neg Gluc neg M-Hemoglobin and Hematocrit Reviewed date:03/12/2025 11:04:11 AM [...] Biotin is occasionally prescribed for medical conditions. H-CBC Reviewed date:07/23/2025 08:33:44 AM Interpretation: Performing [...] 114 74-100 mg/dl CA 8.0 8.4-10.2 mg/dl H-BMP Reviewed date:07/24/2025 09:37:12 AM Interpretation: Performing Lab: Notes/Report: NA 122 136-145 mmol/L K 3.6 3.5-5.1 mmoL/L CL 91 98-107 mmol/L CO2 23 22.0-30.0 mmol/L GAP 11.6 5-15 mEq/L BUN 6 7-17 mg/dl CREATT 0.70 0.52-1.04 mg/dl CRCLE 48 50-200 mL/min GFRAA 98 >60 ML/MIN EGFR 81 >60 ml/min GLU 95 74-100 mg/dl CA 8.9 8.4-10.2 mg/dl H-BMP Reviewed date:07/22/2025 12:02:51 PM Interpretation: Performing [...] 117 74-100 mg/dl CA 8.5 8.4-10.2 mg/dl H-DIFF Reviewed date:07/22/2025 12:02:51 PM Interpretation: Performing Lab: Notes/Report: CIELO MANUAL DIFFERENTIAL MANUAL DIFF TCC 100 NEUT%M 86 42-76 % LYMPH%M 6 10-50 % MONO%M 7 2-9 % EOS%M 1 0-3 % PLTE Normal RM Normal H-CBC Reviewed date:07/22/2025 12:02:51 PM Interpretation: Performing [...] 0.1 0-0.2 K/mm3 NRBC# 0 IG# 0.07 H-Magnesium Reviewed date:07/21/2025 08:59:07 AM Interpretation: Performing Lab: Notes/Report: MG 2.7 1.6-2.3 mg/dl Delta: 1.7 on 07/20/25 H-BMP Reviewed date:07/21/2025 08:59:07 AM Interpretation: Performing [...] 126 74-100 mg/dl CA 8.4 8.4-10.2 mg/dl H-DIFF Reviewed date:07/21/2025 08:59:07 AM Interpretation: Performing Lab: Notes/Report: IFF MANUAL DIFFERENTIAL MANUAL DIFF TCC 100 NEUT%M 88 42-76 % LYMPH%M 5 10-50 % MONO%M 6 2-9 % EOS%M 1 0-3 % H-CBC Reviewed date:07/21/2025 08:59:07 AM Interpretation: Performing Lab: Notes/Report: WBC 7.6 4.8-10.8 K/mm3 Delta: 15.6 o n 07/20/25-35 RBC 3.87 4.20-5.40 M/mm3 HGB 13.0 12.2-16.2 [...] K/mm3 NRBC# 0 IG# 0.07 H-BMP Reviewed date:03/17/2025 11:12:11 AM Interpretation: Performing [...] K/mm3 NRBC# 0 IG# 0.15 H-BMP Reviewed date:03/12/2025 11:04:11 AM Interpretation: Performing [...] 97 74-100 mg/dl CA 8.2 8.4-10.2 mg/dl Cortisol AM Reviewed date:04/14/2025 01:09:28 PM Interpretation: Performing Lab: Notes/Report: Test performed by [facility] [address] [place] [address] , [facility] [place] [address] Gilmer Lowe MD, Power Distribution Engineer CLIA: [id number] Cortisol AM 5.3 6.0-18.4 ug/dL P-Basic Metabolic Panel (BMP ) Reviewed date:04/14/2025 01:09:28 PM Interpretation: Performing Lab: Notes/Report: Test performed by [facility] [address] [place] [address] , [address], [place] [address] Gilmer Lowe MD, Power Distribution Engineer CLIA: [id number] Sodium 128 135-145 mmol/L Potassium 3.7 3.5-5.3 mmol/L Chloride 92 97-108 mmol/L CO2 24 22-32 mmol/L Glucose 93 65-99 mg/dL BUN 16 8-23 mg/dL Creatinine 1.02 0.50-1.00 mg/dL Calcium 9.2 8.6-10.4 mg/dL eGFR by Creatinine 56 >59 mL/min/1.73m2 H-BMP Reviewed date:07/27/2025 08:33:48 AM Interpretation: Performing Lab: Notes/Report: NA 124 136-145 mmol/L K 4.8 3.5-5.1 mmoL/L Delta: 3.1 on 07/26/25 CL 94 98-107 mmol/L CO2 19 22.0-30.0 mmol/L GAP 15.8 5-15 mEq/L BUN 9 7-17 mg/dl Delta: 7 on 07/26/25 CREATT 0.90 0.52-1.04 mg/dl CRCLE 48 50-200 mL/min GFRAA 73 >60 ML/MIN EGFR 61 >60 ml/min GLU 61 74-100 mg/dl Delta: 81 on 07/26/25 CA 8.8 8.4-10.2 mg/dl H-DIFF Reviewed date:07/27/2025 08:33:48 AM Interpretation: Performing Lab: Notes/Report: CIELO MANUAL DIFFERENTIAL MANUAL DIFF TCC 100 NEUT%M 60 42-76 % BAND% 6.0 0-8 LYMPH%M 24 10-50 % MONO%M 6 2-9 % EOS%M 4 0-3 % PLTE Normal RM Normal H-CBC Reviewed date:07/27/2025 08:33:48 AM Interpretation: Performing Lab: Notes/Report: WBC 8.5 4.8-10.8 K/mm3 RBC 3.56 4.20-5.40 M/mm3 HGB 11.8 12.2-16.2 g/dL HCT 34.4 37.0-47.0 % MCV 96.6 81-99 fl MCH 33.1 27.0-31.2 pg MCHC 34.3 31.8-35.4 g/dL RDW-SD 45.8 RDW 12.9 11.5-17.5 % PLT 332 142-424 K/mm3 Delta: 261 on 07/26/25 MPV 9.6 7.4-10.4 fl NE% 60.5 37.0-80.0 % LY% 18.1 10-50 % MO% 10.7 1.7-9.3 % EO% 1.9 0.1-12.0 % BA% 0.7 0.1-2.0 % NRBC% 0 IG% 8.1 NE# 5.1 1.8-7.8 K/mm3 LY# 1.5 0.7-4.5 K/mm3 MO# 0.9 0.1-1.0 K/mm3 EO# 0.2 0.0-0.4 Kmm3 BA# 0.1 0-0.2 K/mm3 NRBC# 0 IG# 0.69 H-CBC Reviewed date:07/24/2025 09:37:12 AM Interpretation: Performing [...] 0.1 0-0.2 K/mm3 NRBC# 0 IG# 0.09 P-Basic Metabolic Panel (BMP ) Reviewed date:10/07/2024 05:35:13 PM Interpretation:Na 131, cl 95, gluc 126, Cr 1.13, gfr 50 Performing Lab: Notes/Report: Test performed by [facility], [employer] [address] [place] [address] , [address], [place] [address] Gilmer Lowe MD, Power Distribution Engineer CLIA: [id number] Sodium 131 135-145 mmol/L Potassium 4.6 3.5-5.3 mmol/L Chloride 95 97-108 mmol/L CO2 22 22-32 mmol/L Glucose 126 65-99 mg/dL BUN 13 8-23 mg/dL Creatinine 1.13 0.50-1.00 mg/dL Calcium 9.5 8.6-10.4 mg/dL eGFR by Creatinine 50 >59 mL/min/1.73m2 CBC Fingerstick (in house) Reviewed date:02/05/2025 01:51:50 [...] - 38 plat 185 100 - 400 H-CBC Reviewed date:07/28/2025 11:32:54 AM Interpretation: Performing Lab: Notes/Report: WBC 6.9 4.8-10.8 K/mm3 RBC 3.50 4.20-5.40 M/mm3 HGB 11.7 12.2-16.2 g/dL HCT 33.4 37.0-47.0 % MCV 95.4 81-99 fl MCH 33.4 27.0-31.2 pg MCHC 35.0 31.8-35.4 g/dL RDW-SD 45.4 RDW 13.0 11.5-17.5 % PLT 378 142-424 K/mm3 MPV 9.3 7.4-10.4 fl NE% 49.5 37.0-80.0 % LY% 22.2 10-50 % MO% 13.6 1.7-9.3 % EO% 1.7 0.1-12.0 % BA% 1.3 0.1-2.0 % NRBC% 0 IG% 11.7 NE# 3.4 1.8-7.8 K/mm3 LY# 1.5 0.7-4.5 K/mm3 MO# 0.9 0.1-1.0 K/mm3 EO# 0.1 0.0-0.4 Kmm3 BA# 0.1 0-0.2 K/mm3 NRBC# 0 IG# 0.80 H-DIFF Reviewed date:07/28/2025 11:32:54 AM Interpretation: Performing Lab: Notes/Report: CIELO MANUAL DIFFERENTIAL MANUAL DIFF TCC 100 NEUT%M 62 42-76 % BAND% 1.0 0-8 LYMPH%M 27 10-50 % MONO%M 6 2-9 % EOS%M 2 0-3 % BASO%M 1.0 0-1 MYELO% 1 0-1 PLTE Normal RM Normal H-BMP Reviewed date:07/28/2025 11:32:54 AM Interpretation: Performing Lab: Notes/Report: NA 124 136-145 mmol/L K 4.4 3.5-5.1 mmoL/L CL 94 98-107 mmol/L CO2 19 22.0-30.0 mmol/L GAP 15.4 5-15 mEq/L BUN 8 7-17 mg/dl CREATT 0.90 0.52-1.04 mg/dl CRCLE 50 50-200 mL/min GFRAA 73 >60 ML/MIN EGFR 61 >60 ml/min GLU 79 74-100 mg/dl CA 8.8 8.4-10.2 mg/dl BMP Reviewed date:04/02/2025 02:57:40 PM Interpretation: Performing Lab: Notes/Report: Medications Medication SIG [...] Status Comme nts COVID 19 Moderna Unknown 06/17/2021 Administered Fluzone High Dose (65yr and older) IM Intramuscular 08/16/2015 Administered Fluzone High Dose (65yr and older) IM Intramuscular 07/25/2018 Administered Fluzone High Dose (65yr and older) IM Intramuscular 07/26/2021 Administered Fluzone High Dose (65yr and older) IM Intramuscular 07/15/2025 Administered Fluzone Quad (6months&older) IM Intramuscular 08/06/2019 Administered H1N1 flu vaccine IM Intramuscular 09/13/2009 Administered Tetanus Tdap-Adacel (over 7yrs) IM Intramuscular 01/07/2008 Administered xFlu shot-36 months and older IM Intramuscular 08/31/2009 Administered Fluzone High Dose (65yr and older) IM Intramuscular 08/14/2024 Administered Fluzone High Dose (65yr and older) IM Intramuscular 07/12/2023 Administered Fluzone High Dose (65yr and older) IM Intramuscular 07/12/2020 Administered Fluzone High Dose (65yr and older) IM Intramuscular 08/07/2017 Administered Fluzone High Dose (65yr and older) IM Intramuscular 07/24/2016 Administered COVID 19 Moderna Unknown 12/16/2020 Administered COVID 19 Moderna Unknown 11/18/2020 Administered Tetanus Tdap-Adacel (over 7yrs) IM Intramuscular 09/03/2018 Administered COVID 19 Moderna Unknown 01/24/2022 Administered Prevnar (PCV13) IM Intramuscular 05/14/2020 Administered PNEUMOVAX 23 VACCINE IM Intramuscular 07/12/2023 Administe red Fluzone High Dose (65yr and older) IM Intramuscular 07/11/2022 Administered Problems Problem Type SNOMED Code ICD Code Onset Dates Problem Status W/U Status Risk Notes Problem Essential hypertension (21087862) Essential (primary) hypertension (I10) Active confirmed Problem Essential hypertension (33884203) Essential hypertension (I10) Active confirmed Problem Gout attack (494237056) Gout attack (M10.9) Active confirmed Problem Rhinitis (36671692) Rhinitis (J31.0) Active con firmed Problem Osteopenia (205418884) Osteopenia (M85.80) Active confirmed Problem Altered mental statu s (521117506) Altered mental state (R41.82) Active confirmed Problem Environmental allerg y (677825568) Environmental allergies (Z91.048) Active confirmed Problem Memory loss (81865971) Memory loss (R41.3) Active confirmed Problem Hypomagnesemia (519357515) Hypomagnesemia (E83.42) Active confirmed Problem Acute non-ST segment elevation myocardial infarction (280171658) Non-ST elevation (NSTEMI) myocardial infarction (I21.4) Active confirmed Problem Inflammatory polyarthropathy (901053374) 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) Active confirmed Problem Polymyalgia rheumatica (17591511) Polymyalgia rheumatica (M35.3) Active confirmed Problem Ataxic gait (98865139) Ataxic gait (R26.0) Active confirmed Problem Acquired hypothyroidism (419092689) Acquired hypothyroidism (E03.9) Active confirmed Problem Neck pain (88855647) Neck pain (M54.2) Active c onfirmed Problem Paresthesia (finding ) (91730454) Paresthesias (R20.2) Active confirmed Problem History of circulatory system disease (442321101) 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) Active confirmed Problem Muscle spasm (75410190) Muscle spasm (M62.838) Active confirmed Problem Rheumatoid arthritis (15126462) Rheumatoid arthritis (M06.9) Active confirmed Problem Sleep disorder (69072749) Sleep disorder (G47.9) Active confirmed Problem Cervical disc disorder (231691953) DDD (degenerative disc disease), cervical (M50.30) Active confirmed Problem Primary osteoarthritis (255279533) Primary osteoarthritis (M19.91) Active confirmed Problem Dyslipidemia (098236699) Dyslipidemia (E78.5) Active confirmed Problem Leukocytosis (629096402) Leukocytosis, unspecified (D72.829) Active confirmed Problem Atherosclerotic hear t disease of [place] coronary artery without angina pectoris (264839467800548) Atherosclerosis of [place] coronary artery without angina pectoris, unspecified whether [place] or transplanted heart (I25.10) Active confirmed Problem Impairment of balanc e (645964810) Balance problem (R26.89) Active confirmed Problem Anemia (160371431) Mild anemia (D64.9) Active c onfirmed Problem Rheumatoid arthritis (80879021) Rheumatoid arthritis, involving unspecified site, unspecified whether rheumatoid factor present (M06.9) Active confirmed Problem Sialodocholithiasis (25853936) Sialodocholithiasis (K11.5) Active confirmed Vital Signs Heart Rate 76 /min 06/16/2025 Respiratory Rate 20 /min 03/31/2025 Blood pressure diastolic 70 mm Hg 06/16/2025 Height 65 in 06/16/2025 Blood pressure systolic 114 mm Hg 06/16/2025 Weight 152.2 lbs 06/16/2025 BMI 25.32 kg/m2 06/16/2025 Encounters Encounter Location Date Provider [facility] [address] [facility] [address] [place] [id number] 09/30/2024 R John Torres Leg edema R60.0 ; Hypokalemia E87.6 and Pain of hand, unspecified laterality M79.643 [facility] [address] [facility] [address] [place] [id number] 11/13/2024 R John Torres Chronic diarrhea K52 .9 and Rheumatoid arthritis, involving unspecified site, unspecified whether rheumatoid factor present M06.9 [facility] [address] [place] [id number] 12/12/2024 Oneida Edwards Open wound of right lower extremity, initial encounter S81.801A [facility] [address] [place] [id number] 12/25/2024 R John Melissa Rheumatoid arthritis M06.9 [facility] [address] [place] [address] [place] [id number] 02/05/2025 R John Melissa Acute sinusitis J01. 90 ; Inflammatory polyarthropathy M06.4 ; Polymyalgia rheumatica M35.3 ; Acquired hypothyroidism E03.9 ; Dyslipidemia E78.5 ; Essential hypertension I10 and BMI 24.0-24.9, adult Z68.24 [facility] [address] [place] [id number] 02/17/2025 R John Melissa Glossitis K14.0 ; Shoulder pain M25.519 and BMI 24.0-24.9, adult Z68.[address] [place] [id number] 03/31/2025 Marie Helm Polymyalgia rheumati ca M35.3 ; Rib fractures S22.39XA ; Acquired hypothyroidism E03.9 ; Dyslipidemia E78.5 ; Essential hypertension I10 ; Nausea R11.0 ; Leg edema R60.0 ; Hx of arteriosclerotic cardiovascular disease Z86.79 ; Accidental fall, subsequent encounter W19.XXXD ; Sleep disorder G47.9 and Hypokalemia E87.6 [facility] [address] [facility] [address] [place] [id number] 04/09/2025 R John Melissa Hyponatremia E87.1 ; Rib fractures S22.39XA ; Chronic diarrhea K52.9 and BMI 23.0-23.9, adult Z68.23 [facility] 1210 [facility] [address] [place] [id number] 04/16/2025 R John Melissa Acute sinusitis J01. 90 ; Adhesive capsulitis of left shoulder M75.02 ; Dyslipidemia E78.5 ; Rib fractures S22.39XA ; Leg edema R60.0 and Onychomycosis B35.1 [facility] [address] [place], [place] [id number] 05/07/2025 R John Melissa Inflammatory polyarthropathy M06.4 [facility] [address] [facility] [address] [place], [place] [id number] 05/19/2025 R John Melissa Hyponatremia E87.1 ; Muscle weakness M62.81 and BMI 23.0-23.9, adult Z68.23 [facility] [address] [facility] [address] [place], [place] [id number] 05/26/2025 R John Melissa Hyponatremia E87.1 ; Memory loss R41.3 and BMI 24.0-24.9, adult Z68.24 [facility] [address] [place], [place] [id number] 05/28/2025 R John Melissa Altered mental state R41.82 [facility] [address] [facility] [address] [place] [id number] 06/16/2025 R John Melissa Rheumatoid arthritis M06.9 ; Leg edema R60.0 and Hyponatremia E87.1 [facility] [address] [facility] [address] [place], [place] [id number] 07/15/2025 R Jonh Melissa Encounter for immunization Z23 [facility] [address] [facility] [address] [place] [id number] 08/04/2025 R John Melissa [facility] [address] [facility] [address] [place] [id number] 08/18/2024 R John Melissa Encounter for other general examination Z00.8 [facility] [address] [facility] [address] [place] [id number] 08/20/2024 R John Melissa [facility] [address] [facility] [address] [place] [id number] 08/21/2024 R John Melissa Rib fractures S22.39 XA [facility] [address] [facility] [address] [place] [id number] 08/26/2024 R John Melissa [facility] [address] [place] [id number] 09/04/2024 R John Melissa Fracture of pelvis S32.9XXA [facility] [address] [place], [place] [id number] 09/22/2024 R John Melissa Rib fractures S22.39 XA [facility] [address] [place], [place] [id number] 10/01/2024 R John Melissa [facility] [address] [place] [id number] 10/08/2024 R John Melissa [facility] [address] [place] [id number] 10/23/2024 R John Melissa Leg edema R60.0 [facility] [address] [place] [id number] 11/18/2024 R John Melissa Rib fractures S22.39 XA [facility] [address] [place] [id number] 11/25/2024 R John Melissa [facility] [address] [place], [place] [id number] 12/12/2024 R John Melissa Chronic diarrhea K52 .9 [facility] [address] [place], [place] [id number] 12/17/2024 R John Melissa Rib fractures S22.39 XA [facility] [address] [place] [id number] 12/26/2024 R John Melissa [facility] [address] [place] [id number] 2024 R John Melissa Chronic diarrhea K52 .9 [facility] [address] [place] [id number] 01/06/2025 R John Melissa [facility] [address] [place], [place] [id number] 01/13/2025 R John Melissa Rib fractures S22.39 XA [facility] [address] [place] [id number] 01/21/2025 R John Melissa [facility] [address] [place] [id number] 01/30/2025 R John Melissa Rib fractures S22.39 XA [facility] [address] [place] [id number] 02/02/2025 R John Melissa [facility] [address] [place] [id number] 02/04/2025 R John Melissa Chronic diarrhea K52 .9 [facility] [address] [place] [id number] 02/16/2025 R John Melissa Rib fractures S22.39 XA [facility] [address] [place] [id number] 03/02/2025 Marie Helm Rib fractures S22.39 XA [facility] [address] [place] [id number] 03/16/2025 R John Melissa [facility] [address] [place] [id number] 03/23/2025 R John Melissa [facility] [address] [place] [id number] 04/02/2025 R John Melissa [facility] [address] [place] [id number] 04/07/2025 R John Melissa Leg edema R60.0 [facility] [address] [place] [id number] 04/09/2025 R John Melissa Leg edema R60.0 [facility] [address] [place] [id number] 04/10/2025 R John Melissa [facility] [address] [place] [id number] 04/13/2025 R John Melissa [facility] [address] [place] [id number] 04/13/2025 R John Melissa Acquired hypothyroid ism E03.9 [facility] [address] [place] [id number] 04/14/2025 R John Melissa [facility] [address] [place], [place] [id number] 04/19/2025 R John Melissa Screening for osteoporosis Z13.820 [facility] [address] [place] [id number] 04/20/2025 R John Melissa [facility] [address] [place] [id number] 04/22/2025 R John Melissa Nausea R11.0 [facility] [address] [place] [id number] 05/06/2025 R John Melissa Hypokalemia E87.6 [facility] [address] [place] [id number] 05/26/2025 R John Melissa [facility] [address] [place] [id number] 05/29/2025 Oneida Crowdy [facility] [address] [place] [id number] 06/02/2025 R John Melissa [facility] [address] [place] [id number] 06/02/2025 R John Melissa [facility] [address] [place] [id number] 06/09/2025 R John Melissa [facility] [address] [place] [id number] 06/09/2025 R John Melissa [facility] [address] [facility] [address] [place], [place] [id number] 06/18/2025 R John Melissa Leg edema R60.0 [facility] [address] [facility] [address] [place], [place] [id number] 06/25/2025 R John Melissa [facility] [address] [facility] [address] [place], [place] [id number] 07/06/2025 R John Melissa [facility] [address] [facility] [address] [place], [place] [id number] 07/24/2025 R John Melissa Assessments Encounter Date Diagnosis (ICD Code) Assessment Notes Treatment Notes Treatment Clinical Notes Section Notes 08/18/2024 Encounter for other general examination (ICD-10 - Z00.8) 08/21/2024 Rib fractures (ICD-10 - S22.39XA) 09/04/2024 Fracture of pelvis (ICD-10 - S32.9XXA) 09/22/2024 Rib fractures (ICD-10 - S22.39XA) 09/30/2024 Hypokalemia (ICD-10 - E87.6) 09/30/2024 Leg edema (ICD-10 - R60.0) 10/23/2024 Leg edema (ICD-10 - R60.0) 11/13/2024 [...] S22.39XA) 02/04/2025 Chronic diarrhea (ICD-10 - K52.9) 02/05/2025 Acute sinusitis (ICD-10 - J01.90) 02/05/2025 Inflammatory polyarthropathy (ICD-10 - M06.4) 02/16/2025 Rib fractures (ICD-10 - S22.39XA) 02/17/2025 Shoulder pain (ICD-10 - M25.519) 02/17/2025 Glossitis (ICD-10 - K14.0) 03/02/2025 Rib fractures (ICD-10 - S22.39XA) 03/31/2025 Polymyalgia rheumatica (ICD-10 - M35.3) 04/07/2025 Leg edema (ICD-10 - R60.0) 04/09/2025 Hyponatremia (ICD-10 - E87.1) 04/09/2025 Rib fractures (ICD-10 - S22.39XA) 04/09/2025 Leg edema (ICD-10 - R60.0) 04/13/2025 Acquired hypothyroidism (ICD-10 - E03.9) 04/16/2025 Acute sinusitis (ICD-10 - J01.90) 03/31/2025 Rib fractures (ICD-10 - S22.39XA) pt feels so much better; she is able to walk freely with her walker; will continue with PT until she goes home 04/16/2025 Adhesive capsulitis of left shoulder (ICD-10 - M75.02) 04/19/2025 Screening for osteoporosis (ICD-10 - Z13.820) 04/22/2025 Nausea (ICD-10 - R11.0) 05/06/2025 Hypokalemia (ICD-10 - E87.6) 05/07/2025 Inflammatory polyarthropathy (ICD-10 - M06.4) 05/19/2025 Hyponatremia (ICD-10 - E87.1) 05/19/2025 Muscle weakness (ICD-10 - M62.81) 05/26/2025 Hyponatremia (ICD-10 - E87.1) 05/26/2025 Memory loss (ICD-10 - R41.3) 06/16/2025 Leg edema (ICD-10 - R60.0) 06/16/2025 Rheumatoid arthritis (ICD-10 - M06.9) 06/18/2025 Leg edema (ICD-10 - R60.0) 07/15/2025 Encounter for immunization (ICD-10 - Z23) 05/28/2025 Altered mental state (ICD-10 - R41.82) 06/16/2025 Hyponatremia (ICD-10 - E87.1) 05/26/2025 BMI 24.0-24.9, adult (ICD-10 - Z68.24) 04/16/2025 Dyslipidemia (ICD-10 - E78.5) 05/19/2025 BMI 23.0-23.9, adult (ICD-10 - Z68.23) 04/09/2025 Chronic diarrhea (ICD-10 - K52.9) 03/31/2025 Acquired hypothyroidism (ICD-10 - E03.9) 02/17/2025 BMI 24.0-24.9, adult (ICD-10 - Z68.24) 02/05/2025 Polymyalgia rheumatica (ICD-10 - M35.3) 09/30/2024 Pain of hand, unspecified laterality (ICD-10 - M79.643) 02/05/2025 Acquired hypothyroidism (ICD-10 - E03.9) 04/09/2025 BMI 23.0-23.9, adult (ICD-10 - Z68.23) 03/31/2025 Dyslipidemia (ICD-10 - E78.5) 04/16/2025 Rib fractures (ICD-10 - S22.39XA) 03/31/2025 Essential hypertension (ICD-10 - I10) 04/16/2025 Leg edema (ICD-10 - R60.0) 02/05/2025 Dyslipidemia (ICD-10 - E78.5) 03/31/2025 Nausea (ICD-10 - R11.0) 02/05/2025 Essential hypertension (ICD-10 - I10) 04/16/2025 Onychomycosis (ICD-10 - B35.1) 03/31/2025 Leg [...] Date MEDICARE PART B [address] [address] [place] [phone] [id number] KWASI HUYNH Self - patient is the insured [employer] [place] [employer] [place]AN Adhikari [id number] [phone] [id number] [id number] HUYNH Self - patient is the insured Medications Administered Medication Instructions Date of Administration Dosage Notes depo medrol 80 mg 05/07/2025 1.5 mL Depo- Medrol 40 mg/ml 11/28/2018 1.5 mL Depo- Medrol 40 mg/ml 01/02/2022 1.5 mL Depo- Medrol 40 mg/ml 01/09/2022 1 mL Depo- Medrol 40 mg/ml 04/17/2022 1.5 mL Depo- Medrol 40 mg/ml 12/07/2022 1.5 mL Depo- Medrol 40 mg/ml 05/15/2023 1.5 mL Depo- Medrol 40 mg/ml 09/04/2023 1 mL Depo- Medrol 40 mg/ml 01/10/2024 1 mL Depo- Medrol 40 mg/ml 03/11/2024 1 mL Depo- Medrol 40 mg/ml 11/13/2024 1 mL Depo- Medrol 40 mg/ml 12/25/2024 1 mL Depo- Medrol 40 mg/ml 06/16/2025 1 mL Dexamethasone 04/16/2025 1 mL Benadryl 10/21/2018 .25 mL phenergan 25 mg/ml 11/29/2023 25 mg Dexamethasone 02/05/2025 1.5 mL Dexamethasone 11/20/2023 1 mL Dexamethasone 03/16/2022 1 mL Dexamethasone 12/19/2019 1 mL Dexamethasone 03/10/2019 1 mL Dexamethasone 03/07/2019 1 mL Dexamethasone 12/16/2018 1 mL Dexamethasone 12/01/2013 1 mL Depo- Medrol 40 mg/ml 04/09/2025 1 mL Depo- Medrol 40 mg/ml 09/30/2024 1 mL Depo- Medrol 40 mg/ml 12/11/2023 1 mL Depo- Medrol 40 mg/ml 06/21/2023 1 mL Depo- Medrol 40 mg/ml 03/08/2023 1.5 mL Depo- Medrol 40 mg/ml 01/23/2023 1.5 mL Depo- Medrol 40 mg/ml 09/18/2022 1.5 mL Depo- Medrol 40 mg/ml 08/04/2022 1.5 mL Depo- Medrol 40 mg/ml 02/13/2020 1.5 mL Depo- Medrol 40 mg/ml 11/25/2018 1.5 mL Depo- Medrol 40 mg/ml 04/23/2018 1.5 mL Depo- Medrol 40 mg/ml 12/08/2013 1.5 mL Dexamethasone 12/18/2023 1.5 mL Medical (General) History Medical History History ICD Code hyperlipidemia-followed by Dr. Arrington hypertension Hypothyroidism/goiter kidney stones allergic rhinitis ASCVD: [place] - 09/2013-followed by Dr. Arrington q 6 months cataracts Hyperuricemia Inflammatory arthritis - Dr. Cheng polymyalgia rheumatica - Dr. Skylar Bhatia Covid vaccine x2 Oct/Nov 2020 Surgical History Surgery Date(Month/Year) Thyroidectomy/Goiter removal 1999 Back 2001 Total Hysterectomy 1993 Tonsillectomy child Cardiac Stent Placed-[facility]-Dr Arrington. Dr. Santo 10/19/2013 Cataract 10/2017 Hospitalization History Reason Date(Month/Year) [facility] : fall with multiple FX ribs on the right; hyponatremia and hypokalemia 03/12-03/15/2025 Dehydration, Failure to Thrive, Acute Ur inary Retention- [facility] 07/14- Multiple rib and pelvic frac tures; hyponatremia; rheumatoid arthritis; ASCVD- 06/30- Itching, Swelling in Hands- [facility] ER 10/21 Facial Pain, Sinus Blockage- [facility] ER 07/01/2018 Heart Attack- [place] 09/2013 kidney stones 1993
[2025-08-17 09:00] LABS: Chloride 90 mmol/L (98-107); Potassium 4.3 mmoL/L (3.5-5.1); Sodium 121 mmol/L (136-145)
[2025-08-17 09:03] LABS: Anion Gap 11.3 mEq/L (5-15); Blood Urea Nitrogen 10 mg/dl (7-17); Calcium 10.3 mg/dl (8.4-10.2); Carbon Dioxide 24 mmol/L (22.0-30.0); Creatinine,Serum 0.90 mg/dl (0.52-1.04); Estimated Glomerular Filt Rate 61 ml/min (>60); GFR (African American) 73 ML/MIN (>60); Glucose 85 mg/dl (74-100)
== END 2025-08-17 23:59 | disposition home or self-care (01) ==
PROVIDERS: PCP Family Medicine; Visit Provider Family Medicine
DX: I10 Essential (primary) hypertension (principal); R30.0 Dysuria
CPT/HCPCS: 80048; 87086

== ENCOUNTER 2025-08-24 08:32 | Outpatient (CLI) | payer MEDICARE, OTHER, SELFPAY ==
--- OUTSIDE RECORDS SUMMARY | 2025-04-16 05:45 | XMS_ITS ---
Author Organization [facility] Address [address] [facility] [address] [place] [id number] Care Team Providers Care Life Manager Name Role Phone Raul Torres Primary Care Provider Allergies Allergen (clinical drug ingredient) Drug/Non Drug Allergy [...] (substance) Sulfa Antibiotics nausea Drug Allergy Active Results Component Value Reference Range Notes CBC Venipuncture (in house) Reviewed date:04/16/2025 11:50:29 AM Interpretation: Performing Lab: Notes/Report: wbc 9.0 3.5 - 10 lymph 13.1 15 - 50 mid 3.8 2 - 15 gran 83.1 35 - 80 rbc 3.72 3.5 - 5.5 hgb 12.5 11.5 - 16.5 hct 38.1 35 - 55 mcv 102.2 75 - 100 mch 33.5 25 - 35 mchc 32.8 31 - 38 platlet 197 100 - 400 Reason For Referral Reason onychomycosis Diagnosis 1 Onychomycosis (B35.1 ) Referral Organization [facility] Referring Provider First Name Raul Lopez Referring Provider Last Name Melissa Referring Provider Speciality Family Pra ctice Referred Provider Zora Bejarano Referred Provider Specialty Podiatry General Notes Keira Burger 2024 02:12:21 PM > faxed to [facility] Podiatry Referral Priority Routine Reason Prefers [facility] location for left shoulder pain and stiffness Diagnosis 1 Adhesive capsulitis of left shoulder (M75.02) Referral Organization [facility] Referring Provider First Name Raul Lopez Referring Provider Last Name Melissa Referring Provider Speciality Family Pra ctice Referred Provider Occupational Therapy , Therapy Referred Provider Specialty Occupational Therapy General Notes Keira Burger 2024 09:20:05 AM > faxed to [facility] PT in [place] Referral Priority Routine REASON FOR VISIT Sinus Infection Medications Medication SIG (Take, Route, Frequency, Duration) Notes Start Date End Date Status Lidocaine 5 % 1 patch remove after 12 hours Externally Once a day 02/17/2025 Active Ondansetron HCl 4 MG 1 tablet as needed Orally Once a day 01/24/2024 Active Potassium Chloride Cathy ER 10 MEQ 1 tablet with food Orally Twice a day Active Hyoscyamine Sulfate 0.125 MG 1 tab(s) Orally four times a day as needed for diarrhea 11/13/2024 Active Tamsulosin HCl 0.4 MG 1 capsule Orally O nce a day Active predniSONE 5 MG 2 tab orally once a day Active Melatonin 3 MG 1 tablet in the evening at HS Active Aspirin Adult Low Dose 81 MG 1 tab(s) orally once a day Active Plaquenil 200 MG 1 tab(s) orally daily Active traMADol HCl 50 MG 1 tab(s) Orally q6h prn 08/01/2024 Active Benzonatate 100 MG 1 capsule as needed Orally Three times a day 04/16/2025 Active Cyclobenzaprine HCl 5 MG 1 tab 3 times a day As needed Active Carvedilol 12.5 MG 1 tab(s) Orally 2 times a day Active Acetaminophen 500 MG 1 capsule as needed Orally every 6 hrs prn Active Amoxicillin 500 MG 1 tablet Orally Thre e times a day 04/16/2025 Active Pravastatin Sodium 40 MG 1 tablet Orally Once a day Active Chlorthalidone 12.5 MG 1 tablet in the morning with food Orally daily; Duration: 90 days Active Senna S 8.6-50 MG 2 tablet as needed Orally Twice a day Not-Taking Meclizine HCl 12.5 MG 1 tab(s) Orally th ree times a day as needed; Duration: 30 day(s) 11/13/2024 Not-Taking ZyrTEC Allergy 10 MG 1 tab(s) orally onc e a day Not-Taking Levothyroxine Sodium 112 MCG 1 tablet in the morning on an empty stomach Orally Once a day; Duration: 90 days Active Vital Signs Weight 144.6 lbs 04/16/2025 Blood pressure systolic 126 mm Hg 04/16/20 25 Blood pressure diastolic 88 mm Hg 025 Heart Rate 65 /min 04/16/2025 Height 65 in 04/16/2025 BMI 24.06 kg/m2 04/16/2025 Encounters Encounter Location Date Provider Diagnosis [facility] [address] [facility] [address] [place], [place] [id number] 04/16/2025 Raul Torres Acute sinusitis J01. 90 ; Adhesive capsulitis of left shoulder M75.02 ; Dyslipidemia E78.5 ; Rib fractures S22.39XA ; Leg edema R60.0 and Onychomycosis B35.1 Assessments Encounter Date Diagnosis (ICD Code) Assessment Notes Treatment Notes Treatment Clinical Notes Section Notes 04/16/2025 Acute sinusitis (ICD-10 - J01.90) 04/16/2025 Adhesive capsulitis of left shoulder (ICD-10 - M75.02) 04/16/2025 Dyslipidemia (ICD-10 - E78.5) 04/16/2025 Rib fractures (ICD-10 - S22.39XA) 04/16/2025 Leg edema (ICD-10 - R60.0) 04/16/2025 Onychomycosis (ICD-10 - B35.1) Plan Of Treatment Medication Medication Name Sig Start Date Stop Date Notes Benzonatate 100 MG 1 capsule as needed Orally Three times a day 04/16/2025 Cyclobenzaprine HCl 5 MG 1 tab 3 times a day Amoxicillin 500 MG 1 tablet Orally Three times a day 04/16 Pravastatin Sodium 40 MG 1 tablet Orally Once a day Chlorthalidone 12.5 MG 1 tablet in the m orning with food Orally daily; Duration: 90 days Referrals Referral Date Details 04/17/2025 04/17/2025, Zora [place] 04/18/2025 04/18/2025, Prefers [facility] location for left shoulder pain and stiffness, Therapy Occupational Therapy Next Appt Details Follow Up: 1 month, Reason: Medications Administered Medication Instructions Date of Administration Dosage Notes Dexamethasone 04/16/2025 1 mL Progress Notes * KWASI HUYNHDOB: 7 (79 yo F)Acc No.[id number]:04/16/2025 Progress Notes Patient: KWASI PANIAGUA Provider: Raul Torres M.D. :1945 A ge:79 Y S ex:Female Date:04/16/2025 Address:[address], [place], [id number] Subjective: * Chief Complaints: * 1 . Sinus Infection. * HPI: E NT/respiratory: 79 year old female presents with c/o nasal congestion. c/o facial pain/pressure P t presents today with c/o facial pressure and headaches. Pt sts that she feels congested in her head. Pt sts that she does not feel congested in the chest at all. Pt sts that she just is not feeling well. D ermatology: She is requesting referral to podiatry because of thickened toenails and difficulty trimming them on her own. S houlder/Upper arm: She is complaining of pain and mostly stiffness in the left shoulder probably related to her rheumatoid arthritis but has developed significant decreased range of motion. * ROS: D ERMATOLOGY: no R jodi. n o H bere. G ASTROENTEROLOGY: Nausea y es. n o V omiting. n o D iarrhea.? U ROLOGY: no D ifficulty urinating. n o B lood in urine. * Medical History: h yperlipidemia-followed by Dr. Arrington, Hypertension, Hypothyroidism/goiter, Kidney stones, Allergic rhinitis, ASCVD: [place] - 09/2013-followed by Dr. Arrington q 6 months, Cataracts, Hyperuricemia, Inflammatory arthritis - Dr. Cheng, polymyalgia rheumatica - Dr. Cheng, Moderna Covid vaccine x2 Oct/Nov 2020. * Surgical History: T hyroidectomy/Goiter removal 1999, Back 2001, Total Hysterectomy 1992, Tonsillectomy child, [facility], Cataract 10/2017. * Hospitalization/Major Diagno stic Procedure: k idney stones 1992, Heart Attack- [facility] 09/2013, Facial Pain, Sinus Blockage- [facility] ER 04/24/2018, Itching, Swelling in Hands- [facility] ER 10/21/2018, Multiple rib and pelvic fractures; hyponatremia; rheumatoid arthritis; ASCVD- 06/30-, Dehydration, Failure to Thrive, Acute Urinary Retention- [facility] 07/14-, [facility] : fall with multiple FX ribs on the right; hyponatremia and hypokalemia 03/12-03/15/2025. * Family History: F ather: . M other: alive. 1 son(s) , 1 daughter(s) . . Daughter with [employer]. * Social History: C URRENT TOBACCO USE S moking Status: Patient does NOT smoke, Former Smoker: Yes, Quit smokin09/2013. C affeine: yes, frequency:. Home smoke detector use: yes. Past smoking status: previous history, PPD:1/2 , years: ,determination:. Alcohol: No. * Medications: T aking Pravastatin Sodium 40 MG Tablet 1 tablet Orally Once a day , Taking Acetaminophen 500 MG Capsule 1 capsule as needed Orally every 6 hrs prn , Taking Carvedilol 12.5 MG Tablet 1 tab(s) Orally 2 times a day , Taking Aspirin Adult Low Dose 81 MG Tablet Delayed Release 1 tab(s) orally once a day , Taking Melatonin 3 MG Tablet 1 tablet in the evening at HS , Taking traMADol HCl 50 MG Tablet 1 tab(s) Orally q6h prn , Taking Plaquenil 200 MG Tablet 1 tab(s) orally daily , Taking predniSONE 5 MG Tablet 2 tab orally once a day , Taking Ondansetron HCl 4 MG Tablet 1 tablet as needed Orally Once a day , Taking Lidocaine 5 % Patch 1 patch remove after 12 hours Externally Once a day , Taking Potassium Chloride Cathy ER 10 MEQ Tablet Extended Release 1 tablet with food Orally Twice a day , Taking Cyclobenzaprine HCl 5 MG Tablet 1 tab 3 times a day As needed, Taking Tamsulosin HCl 0.4 MG Capsule 1 capsule Orally Once a day , Taking Hyoscyamine Sulfate 0.125 MG Tablet 1 tab(s) Orally four times a day as needed for diarrhea , Taking Chlorthalidone 12.5 MG Tablet 1 tablet in the morning with food Orally daily , Taking Levothyroxine Sodium 112 MCG Tablet 1 tablet in the morning on an empty stomach Orally Once a day , Not- Taking ZyrTEC Allergy 10 MG Tablet 1 tab(s) orally once a day , Not-Taking Senna S 8.6- 50 MG Tablet 2 tablet as needed Orally Twice a day , Not-Taking Meclizine HCl 12.5 MG Tablet 1 tab(s) Orally three times a day as needed , Medication List reviewed and reconciled with the patient * Allergies: D econgestant: hives, Sulfa Antibiotics: nausea, Augmentin: nausea, Zithromax: itching - Allergy, Naprosyn: rash - Allergy, Amoxicillin: high dose causes nausea - Side Effects, Cefaclor: nausea - Allergy, Cefdinir: GI upset - Side Effects, Cymbalta: GI upset - Side Effects, Gabapentin: itching - Allergy, Percocet, Lortab. Objective: * Vitals: W t: 144.6, Temp: 98.0, BP: 126/88, HR: 65, O2 Sat: 97% on RA, Nurse: LIGIA, Ht: 65, BMI:24.06. * Examination: G eneral Examination: S clera conjunctive are clear. TMs normal. Mild nasal congestion. Maxillary sinuses are tender. Lungs are clear to auscultation. Left shoulder shows no deformity. She has marked decreased range of motion with abduction only about 45 degrees. Assessment: * Assessment: 1. A cute sinusitis - J01.90 (Primary) 2 . A dhesive capsulitis of left shoulder - M75.02 3 . D yslipidemia - E78.5 4 . R ib fractures - S22.39XA 5 . L eg edema - R60.0 6 . O nychomycosis - B35.1? Plan: * Treatment: Value Reference Range w bc 9.0 3.5 - 10 * l ymph 13.1 15 - 50 * m id 3.8 2 - 15 * g ran 83.1 35 - 80 * r bc 3.72 3.5 - 5.5 * h gb 12.5 11.5 - 16.5 * h ct 38.1 35 - 55 * m cv 102.2 75 - 100 * m ch 33.5 25 - 35 * m chc 32.8 31 - 38 * p latlet 197 100 - 400 * Jesica Yin 04/16/2025 11: 50:10 AM EDT > results reviewed w/ pt in office 2.?Adhesive capsulitis of left shoulder? Referral To:Therapy Occupational Therapy??Occupational Therapy ?Reason:Prefers [facility], [place] location for left shoulder pain and stiffness 3.?Dyslipidemia? Refill Pravastatin Sodium Tablet, 40 MG, 1 tablet, Orally, Once a day, 90, Refills 1.??4.?Rib fractures? Refill Cyclobenzaprine HCl Tablet, 5 MG, 1 tab, 3 times a day As needed, 30, Refills 1.??5.?Leg edema? Refill Chlorthalidone Tablet, 12.5 MG, 1 tablet in the morning with food, Orally, daily, 90 days, 90 Tablet, Refills 1.??6.?Onychomycosis? Referral To:Zora Bejarano??Podiatry ?Reason:onychomycosis * Therapeutic Injections: Dexamethasone : 1 mL (Route: Intramuscular) given by Jesica Yin on right gluteus (Acute sinusitis) * Procedure Codes: G 2211 Complex e/[place], [address] CBC WITH AUTO DIFF, 31188 VENIPUNCT, ROUTINE*, J1100 Dexamethasone, 87966 ADMINISTRATION OF INJECTION * Follow Up: 1 month * Images: Billing Information: * Visit Code: 28064 Office Visit, Est Pt., Level 4. Modifiers: 25 * Procedure Codes: G2211 Complex e/[place]. [address] CBC WITH AUTO DIFF. 98921 VENIPUNCT, ROUTINE*. J1100 Dexamethasone. 03811 ADMINISTRATION OF INJECTION. * Electronic signature of Raul Torres MD on 08/24/2025 at 08:42 AM EST Sign off status: Pending * Provider: Raul Torres M.D. Date: 0 04/16/2025 Generated for Jerry panda/Kerwin/Sonnysmitting on: 1 10/24/2024 08:42 AM EST History and Physical Notes * HPI (History of Present Illness) Category Sub-Category Detail Notes Category Not es ENT/respiratory facial pain/pressure Pt presents today with c/o facial pressure and headaches. Pt sts that she feels congested in her head. Pt sts that she does not feel congested in the chest at all. Pt sts that she just is not feeling well nasal congestion Dermatology She is requesti ng referral to podiatry because of thickened toenails and difficulty trimming them on her own. Shoulder/Upper arm She is co mplaining of pain and mostly stiffness in the left shoulder probably related to her rheumatoid arthritis but has developed significant decreased range of motion. Examination Category Sub-Category Detail Notes Category Not es General Examination Sclera c onjunctive are clear. TMs normal. Mild nasal congestion. Maxillary sinuses are tender. Lungs are clear to auscultation. Left shoulder shows no deformity. She has marked decreased range of motion with abduction only about 45 degrees. Consultation Request Notes Referral Date Referring Provider Referred Provider Not es 04/17/2025 Raul Torres Sofie onychomyc osis 04/18/2025 Raul Torres Occupational T herapy, Therapy Prefers [facility] location for left shoulder pain and stiffness
--- OUTSIDE RECORDS SUMMARY | 2025-05-07 10:45 | XMS_ITS ---
[facility] Address [address] [place] [id number] Care Team Providers Care Landscape Architect Name Role Phone Raul Torres Primary Care [...] Encounter Location Date Provider Diagnosis [facility] [address] [phone] 05/07/2025 Raul Torres Inflammatory polyarthropathy M06.4 Assessments [...] ge:79 Y S ex:Female Date:05/07/2025 Address:[address], [place], [id number] Subjective: * Chief Complaints: * 1 . Cortisone shot. * HPI: R heumatology: She returns with a flare of joint pain in multiple joints, specifically her hands, elbows, shoulders, hips, and knees. She continues on daily prednisone and Plaquenil per her fusing machine feeder. * ROS: D ERMATOLOGY: no R jodi. n o H bere. G ASTROENTEROLOGY: Nausea y es. n o V omiting. n o D iarrhea.? U ROLOGY: no D ifficulty urinating. n o B lood in urine. * Medical History: h yperlipidemia-followed by Dr. Arrington, Hypertension, Hypothyroidism/goiter, Kidney stones, Allergic rhinitis, ASCVD: [place] - 09/2013-followed by Dr. Arrington q 6 months, Cataracts, Hyperuricemia, Inflammatory arthritis - Dr. Cheng, polymyalgia rheumatica - Dr. Cheng, Moderna Covid vaccine x2 Oct/Nov 2020. * Surgical History: T hyroidectomy/Goiter removal 1999, Back 2001, Total Hysterectomy 1992, Tonsillectomy child, Cardiac Stent Placed-[facility]-Dr Arrington. Dr. Santo 10/19/2013, Cataract 10/2017. * Hospitalization/Major Diagno stic Procedure: k idney stones 1992, Heart Attack- [place] 09/2013, Facial Pain, Sinus Blockage- [facility] 04/24/2018, Itching, Swelling in Hands- [facility] 10/21/2018, Multiple rib and pelvic fractures; hyponatremia; rheumatoid arthritis; ASCVD- 06/30-, Dehydration, Failure to Thrive, Acute Urinary Retention- [facility] 07/14-, H : fall with multiple FX [...] on, J1010 Inj, methylpred acetate 1 mg, 36069 ADMINISTRATION OF INJECTION * Follow Up: p rn * Images: Billing Information: * Visit Code: 68001 Office Visit, Est Pt., Level 3. Modifiers: 25 * Procedure Codes: G2211 Complex e/m visit add on. J1010 Inj, methylpred acetate 1 mg. 20290 ADMINISTRATION OF INJECTION. * Electronic signature of Raul Torres MD on 08/24/2025 at 08:42 AM EST Sign off status: Pending * Provider: Raul Torres M.D. Date: 0 05/07/2025 Generated for Jerry panda/Kerwin/Arthur on: 10/24/2024 08:42 AM EST History and Physical Notes * HPI (History of Present Illness) Category Sub-Category Detail Notes Category Not es Rheumatology She returns wit h a flare of joint pain in multiple joints, specifically her hands, elbows, shoulders, hips, and knees. She continues on daily prednisone and Plaquenil per her fusing machine feeder. Examination Category Sub-Category Detail Notes Category Not es General Examination Heart: RSR Lungs: clear to auscultatio n Extremities: Chronic deformity wi th mild swelling of the joints of both hands. General Appearance: She ambulates with a walker. Affect is a bit more subdued
--- OUTSIDE RECORDS SUMMARY | 2025-05-19 05:00 | XMS_ITS ---
Author Organization [facility] Address [address] [facility] [address] [place] [id number] Care Team Providers Care Soft Hat Binder Name Role Phone Raul Torres Primary Care Provider [phone] Allergies Allergen (clinical drug ingredient) Drug/Non Drug [...] 102 Performing Lab: Notes/Report: Test performed by [employer] [facility] , [address], [place] [address] Gilmer Lowe MD, Supervisor Fish Hatchery CLIA: [id number] Sodium 122 135-145 mmol/L Potassium 4.2 3.5-5.3 [...] [address] [place] [id number] 05/19/2025 Raul Torres Hyponatremia E87.1 ; Muscle [...] ge:79 Y S ex:Female Date:05/19/2025 Address:[address] [facility], [place], [id number] Subjective: * Chief Complaints: * 1 . [...] Hypertension, Hypothyroidism/goiter, Kidney stones, Allergic rhinitis, ASCVD: [place] - 09/2013-followed by Dr. Arrington q 6 months, Cataracts, Hyperuricemia, Inflammatory arthritis - Dr. Cheng, polymyalgia rheumatica - Dr. Cheng, Moderna Covid vaccine x2 Oct/Nov 2020. * Surgical History: T hyroidectomy/Goiter removal 1999, Back 2001, Total Hysterectomy 1992, Tonsillectomy child, Cardiac Stent Placed-[facility]-Dr Arrington. Dr. Santo 10/19/2013, Cataract 10/2017. * Hospitalization/Major Diagno stic Procedure: k idney stones 1992, Heart Attack- [place] 09/2013, Facial Pain, Sinus Blockage- [facility] 04/24/2018, Itching, Swelling in Hands- [facility] 10/21/2018, Multiple rib and pelvic fractures; hyponatremia; rheumatoid arthritis; ASCVD- 06/30-, Dehydration, Failure to Thrive, Acute Urinary Retention- [facility] 07/14-, [facility] : fall with multiple FX ribs [...] uscle weakness - M62.81 3 . B [place] 23.0-23.9, adult - Z68.23 Plan: * Treatment: [...] * Images: Billing Information: * Visit Code: 36377 Office Visit, Est Pt., Level 3. * Procedure Codes: G2211 Complex e/m visit add on. 1036F TOBACCO NON-USER. G8420 BMI<30 AND >=22 CALC & DOCU. G8783 BP SCR PRFRM RCMDD DEFIND SCR INTVL. G8752 MOST RECENT SYSTOLIC BP < 140MM HG. G8754 MOST RECENT DIASTOLIC BP < 90MM HG. * Electronic signature of Raul Torres MD on 08/24/2025 at 08:41 AM EST Sign off status: Pending * Provider: Raul Torres M.D. Date: 0 05/19/2025 Generated for Jerry panda/Kerwin/Arthur on: 10/24/2024 08:41 AM EST History and Physical Notes * [...]
--- OUTSIDE RECORDS SUMMARY | 2025-05-26 09:45 | XMS_ITS ---
Author Organization [facility] Address [address] [place] [id number] Care Team Providers Care Helminthologist Name Role Phone Raul Torres Primary Care [...] (substance) Sulfa Antibiotics nausea Drug Allergy Active Reason For Referral Reason Dr. Lee at [facility] for hyponatremia/ possible adrenal insufficiency Diagnosis 1 Hyponatremia (E87.1) Referral Organization [facility] Referring Provider First Name Raul Lopez Referring Provider Last Name Melissa Referring Provider [facility] ctice Referred Provider Endocrinology, . Referred Provider Specialty Endocrinolog y General Notes Keira Burger 2024 10:04:16 AM > faxed to [facility] Endo Referral Priority Routine Reason memory loss/ confusi on Diagnosis 1 Memory loss (R41.3) Referral Organization [facility] Referring Provider First Name Raul Lopez Referring Provider Last Name Melissa Referring Provider [facility] ctice Referred Provider Radha Ignacio Referred Provider Specialty Neurology General Notes Keira Burger 2024 09:55:39 AM > faxed to [facility] Neurology, Keira Burger 05/29/2025 10:50:10 AM > Spoke with Ruth; referral received Referral Priority Routine REASON FOR VISIT discuss meds Medications Medication SIG (Take, Route, Frequency, Duration) Notes Start Date End Date Status Potassium Chloride Cathy ER 1 0 MEQ 1 tablet with food Orally Twice a day; Duration: 90 days Active Ondansetron HCl 4 MG 1 tablet Orally 3 t imes a day prn 01/24/2024 Active Chlorthalidone 12.5 MG 1 tablet in the m orning with food Orally daily; Duration: 90 days Active Cyclobenzaprine HCl 5 MG 1 tab 3 times a day As needed Active Pravastatin Sodium 40 MG 1 tablet Orally Once a day Active Lidocaine 5 % 1 patch remove after 12 hours Externally Once a day 02/17/2025 Active traMADol HCl 50 MG 1 tab(s) Orally q6h prn 024 Active Levothyroxine Sodium 112 MCG 1 tablet in the morning on an empty stomach Orally Once a day; Duration: 90 days Active Hyoscyamine Sulfate 0.125 MG 1 tab(s) Or ally four times a day as needed for diarrhea 11/13/2024 Active Tamsulosin HCl 0.4 MG 1 capsule Orally O nce a day Active Melatonin 3 MG 1 tablet in the even ing at HS Active Aspirin Adult Low Dose 81 MG 1 tab(s) or ally once a day Active Carvedilol 12.5 MG 1 tab(s) Orally 2 ti mes a day Active Acetaminophen 500 MG 1 capsule as needed Orally every 6 hrs prn Active predniSONE 5 MG 1 tab orally once a day Active Plaquenil 200 MG 1 tab(s) orally daily Active Problems Problem Type SNOMED Code ICD Code Onset Dates Problem Status W/U Status Risk Notes Problem Memory loss (03955341) Memory loss (R41.3) Active confirmed Vital Signs Weight 146.2 lbs 05/26/2025 Blood pressure systolic 110 mm Hg 05/26/20 25 Blood pressure diastolic 76 mm Hg 025 Heart Rate 72 /min 05/26/2025 Height 65 in 05/26/2025 BMI 24.33 kg/m2 05/26/2025 Encounters Encounter Location Date Provider Diagnosis [facility] [address] [place] [id number] 05/26/2025 Raul Torres Hyponatremia E87.1 ; Memory loss R41.3 and BMI 24.0-24.9, adult Z68.24 Assessments Encounter Date Diagnosis (ICD Code) Assessment Notes Treatment Notes Treatment Clinical Notes Section Notes 05/26/2025 Hyponatremia (ICD-10 - E87.1) 05/26/2025 Memory loss (ICD-10 - R41.3) 05/26/2025 BMI 24.0-24.9, adult (ICD-10 - Z68.24) Plan Of Treatment Referrals Referral Date Details 05/26/2025 05/26/2025, Dr. Sophie pineda at [facility] for hyponatremia/ possible adrenal insufficiency, . Endocrinology 05/26/2025 05/26/2025, memory l oss/ confusion, Radha Ignacio Next Appt Details Follow Up: after consultatio n, Reason: Progress Notes * ANDRY HUYNHDOB: [birth year] (79 yo F)Acc No.[id number]:05/26/2025 Progress Notes Patient: ANDRY PANIAGUA Provider: Raul Torres M.D. :1945 A ge:79 Y S ex:Female Date:05/26/2025 Address:[address] [place] [address], [place], [id number] Subjective: * Chief Complaints: * 1 . Discuss meds. * HPI: N eurology: Andry comes in accompanied by her and daughter with concerns about increasing confusion over the past 3 to 4 weeks. For example, she was recently at an event with familiar people but could not recall their names. R heumatology: She continues to complain of generalized muscle weakness. She has had no recent falls. H PI: She continues to have issues with hyponatremia and her most recent labs showed further decline of her sodium to 122. * ROS: D ERMATOLOGY: no R jodi. [...] Procedure: k idney stones 1992, Heart Attack- [place] 09/2013, Facial Pain, Sinus Blockage- [facility] ER 04/24/2018, Itching, Swelling in Hands- [facility] ER 10/21/2018, Multiple rib and pelvic fractures; hyponatremia; rheumatoid arthritis; ASCVD- 06/30-, Dehydration, Failure to Thrive, Acute Urinary Retention- [facility] 07/14-, [facility] : fall with multiple FX [...] with food Orally Twice a day , Discontinued Amoxicillin 500 MG Tablet 1 tablet Orally Three times a day , Discontinued Benzonatate 100 MG Capsule 1 capsule as needed Orally Three times a day , Discontinued ZyrTEC Allergy 10 MG Tablet 1 tab(s) orally once a day , Discontinued Senna S 8.6-50 MG Tablet 2 tablet as needed Orally Twice a day , Discontinued Meclizine HCl 12.5 MG Tablet 1 tab(s) [...] Percocet, Lortab. Objective: * Vitals: W t: 146.2, Temp: 98.6, BP: 110/76, HR: 72, Nurse: pe, Ht: 65, BMI:24.33. * Examination: G eneral Examination: S he is alert and oriented to person and place today. She answers questions appropriately. Lungs are clear to auscultation. Heart is regular. Extremities no edema. She ambulates with a rollator walker. Assessment: * Assessment: 1. H yponatremia - E87.1 (Primary) 2 . M yvette loss - R41.3 ?3. B [place] 24.0-24.9, adult - Z68.24 Plan: * Treatment: 2. M yvette loss Referral To:Radha Ignacio Neurology Reason:memory loss/ confusion * Procedure Codes: G 2211 Complex e/m visit add on, 1036F TOBACCO NON-USER, G8420 BMI<30 AND >=22 CALC & DOCU, G8783 BP SCR PRFRM RCMDD DEFIND SCR INTVL, G8752 MOST RECENT SYSTOLIC BP < 140MM HG, G8754 MOST RECENT DIASTOLIC BP < 90MM HG * Follow Up: a fter consultation * Images: Billing Information: * Visit Code: 99896 Office Visit, Est Pt., Level 3. * [...] * Provider: Raul Torres M.D. Date: 0 05/26/2025 Generated for Jerry panda/Kerwin/Sonnysmitting on: 1 10/24/2024 08:41 AM EST History and Physical Notes * Examination Category Sub-Category Detail Notes Category Not es General Examination She is a lert and oriented to person and place today. She answers questions appropriately. Lungs are clear to auscultation. Heart is regular. Extremities no edema. She ambulates with a rollator walker. Consultation Request Notes Referral Date Referring Provider Referred Provider Not es 05/26/2025 Raul Torres Endocrinology, . Dr. Edy matos at [facility] for hyponatremia/ possible adrenal insufficiency 05/26/2025 Raul Torres Maria memory los s/ confusion
--- OUTSIDE RECORDS SUMMARY | 2025-05-28 03:20 | XMS_ITS ---
Author Organization [facility] Address 1210 [facility] [address] [place] [phone] Care Team Providers Care Electronic Calibration Technician Name Role Phone Raul Torres Primary [...] Status Risk Notes Problem Altered mental status (562980809) Altered mental state (R41.82) Active confirmed Encounters Encounter Location Date Provider Diagnosis [facility] [address] [place] [phone] 05/28/2025 Raul Torres Altered mental state R41.82 [...] Date:05/28/2025 Address:[address], [id number] Subjective: * Chief Complaints: * 1 . [...] Information: * Visit Code: * Procedure Codes: 90251 Urinalysis, no micro. * Electronic signature of Raul Torres MD on 08/24/2025 at 08:41 AM EST Sign off status: Pending * Provider: Raul Torres M.D. Date: 0 05/28/2025 Generated for Jerry panda/Kerwin/Sonnysmitting on: 10/24/2024 08:41 AM EST
--- OUTSIDE RECORDS SUMMARY | 2025-06-16 11:30 | XMS_ITS ---
Author Organization [facility] Address [address] [facility] [address] [place] [phone] Care Team Providers Care Music Professor Name Role Phone Raul Torres Primary Care [...] 06/16/2025 Encounters Encounter Location Date Provider Diagnosis [facility] [address] [facility] [address] [place] [address], [place] [phone] 06/16/2025 Raul Torres Rheumatoid arthritis M06.9 ; [...] Date:06/16/2025 Address:[address], [place], [phone] Subjective: * Chief Complaints: * 1 . [...] Hypertension, Hypothyroidism/goiter, Kidney stones, Allergic rhinitis, ASCVD: [place] - 09/2013-followed by Dr. Arrington q 6 months, Cataracts, Hyperuricemia, Inflammatory arthritis - Dr. Cheng, polymyalgia rheumatica - Dr. Cheng, Moderna Covid vaccine x2 Oct/Nov 2020. * Surgical History: T hyroidectomy/Goiter removal 1999, Back 2001, Total Hysterectomy 1992, Tonsillectomy child, Cardiac Stent Placed-[facility]-Dr Arrington. Dr. Santo 10/19/2013, Cataract 10/2017. * Hospitalization/Major Diagno stic Procedure: k idney stones 1992, Heart Attack- [place] 09/2013, Facial Pain, Sinus Blockage- [facility] ER 04/24/2018, Itching, Swelling in Hands- [facility] 10/21/2018, Multiple rib and pelvic fractures; hyponatremia; rheumatoid arthritis; ASCVD- 06/30-, Dehydration, Failure to Thrive, Acute Urinary Retention- [facility] 07/14-, H : fall with [...] on, J1010 Inj, methylpred acetate 1 mg, 89834 ADMINISTRATION OF INJECTION * Follow Up: 2 Months * Images: Billing Information: * Visit Code: 89472 Office Visit, Est Pt., Level 3. Modifiers: 25 * Procedure Codes: G2211 Complex e/m visit add on. J1010 Inj, methylpred acetate 1 mg. 76752 ADMINISTRATION OF INJECTION. * Electronic signature of Raul Torres MD on 08/24/2025 at 08:42 AM EST Sign off status: Pending * Provider: Raul Torres M.D. Date: 0 06/16/2025 Generated for Jerry panda/Kerwin/Adrianitting on: 10/24/2024 08:42 AM EST History and Physical Notes * Examination Category Sub-Category Detail Notes Category Not es General Examination Heart: RSR Lungs: clear to auscultatio n Extremities: 1+ pedal and ankle e stephanie bilaterally. General Appearance: NAD
--- OUTSIDE RECORDS SUMMARY | 2025-07-15 06:25 | XMS_ITS ---
Author Organization [facility] Address [address] [place] [phone] Care Team Providers Care Embedded Case Manager Name Role Phone Raul Torres Primary Care Provider [phone] REASON FOR VISIT flu shot Medications Medication [...] Administered Encounters Encounter Location Date Provider Diagnosis [facility] [address] [facility] [address] [place] [phone] 07/15/2025 Raul Torres Encounter for immunization Z23 Assessments Encounter Date Diagnosis (ICD Code) Assessment Notes Treatment Notes Treatment Clinical Notes Section Notes 07/15/2025 Encounter for immunization (ICD-10 - Z23) Plan Of Treatment No Information Progress Notes * LINO KWASIDOB: 7 (79 yo F)Acc No.[id number]:07/15/2025 Patient: KWASI PANIAGUA Provider: Raul Torres M.D. :1945 A ge:79 Y S ex:Female Date:07/15/2025 Address:[address] [place] [address], [place], [id number] Subjective: * Chief Complaints: * 1 [...] Procedure Codes: * Electronic signature of Raul Torrse MD on 08/24/2025 at 08:40 AM EST Sign off status: Pending * Provider: Raul Torres M.D. Date: 0 07/15/2025 Generated for Jerry panda/Kerwin/Arthur on: 10/24/2024 08:40 AM EST
--- OUTSIDE RECORDS SUMMARY | 2025-07-21 05:45 | XMS_ITS ---
Author Organization Jared Address [address] [facility] [address] [facility] [address] [place] [id number] Care Team Providers Care Surgical Pathologist Name Role Phone Raul Torres Primary Care Provider [phone] REASON FOR VISIT foot still swelling Encounters Encounter Location Date Provider Diagnosis [facility] [address] [facility] [address] [place] [phone] 07/21/2025 Raul Torres Plan Of Treatment No Information Progress Notes * KWASI HUYNHDOB: 7 (79 yo F)Acc No.[id number]:07/21/2025 Progress Notes Patient: KWASI PANIAGUA Provider: Raul Torres M.D. :1945 A ge:79 Y S ex:Female Date:07/21/2025 Address:[address] [facility], [place], [id number] Subjective: * Chief Complaints: * 1 . Foot still swelling. * Medical History: Objective: * Vitals: Assessment: Plan: * Treatment: * Images: Billing Information: * Visit Code: * Procedure Codes: * Electronic signature of Raul Torres MD on 08/24/2025 at 08:40 AM EST Sign off status: Pending * Provider: Raul Torres M.D. Date: 07/21/2025 Generated for Jerry panda/Kerwin/Arthur on: 10/24/2024 08:40 AM EST
--- OUTSIDE RECORDS SUMMARY | 2025-08-04 09:30 | XMS_ITS ---
Author Organization [facility] Address [address] [place] [id number] Care Team Providers Care Postbed Stitcher Name Role Phone Raul Torres Primary Care Provider REASON FOR VISIT H F/U Discharge Encounters Encounter Location Date Provider Diagnosis [facility] [address] [place] [id number] 08/04/2025 Raul Torres Plan Of Treatment No Information Progress Notes * KWASI HUYNHDOB: [birth year] (79 yo F)Acc No.[id number]:08/04/2025 Patient: KWASI PANIAGUA Provider: Raul Torres M.D. :1945 A ge:79 Y S ex:Female Date:08/04/2025 Address:[address] [place], [place], [id number] Subjective: * Chief Complaints: * 1 . H F/U Discharge. * Medical History: Objective: * Vitals: Assessment: Plan: * Treatment: * Images: Billing Information: * Visit Code: * Procedure Codes: * Electronic signature of Raul Torres MD on 08/24/2025 at 08:40 AM EST Sign off status: Pending * Provider: Raul Torres M.D. Date: Generated for Jerry panda/Kerwin/Arthur on: 10/24/2024 08:40 AM EST
--- OUTSIDE RECORDS SUMMARY | 2025-08-24 08:40 | XMS_ITS | Clinical Summary ---
Author Organization Healthcare Address [address] [place] [address] Care Team Providers Care Threading Machine Feeder Automatic Name Role Phone Amparo Arrington MD Primary Care Provider [phone] Allergies Active Allergy Reactions Criticality Noted Date [...] PMF's reviewed and stable PT/OT as tolerated [facility] Acquired hypothyroidism 06/30/2024 Overview (06/30/2024): Continue home levothyroxine Complicates all aspects of care Coronary artery disease invo lving [place] coronary artery of [place] heart without angina pectoris 06/30/2024 Overview (06/30/2024): [...] Department Care Team Description 06/19/2025 Orders Only [facility] [address] [...] place to sleep or slept in a senior care (including now)? No 07/01/2024 Utilities Answer Date [...] 06/30/2024 9:50 PM EDT Plan of Treatment Upcoming Encounters Date Type Department Care Team (Late st Contact Info) Description 10/23/2025 12:20 PM EST Office Visit [facility] [address] [place] [phone] Vicente Rodrigez MD [address] [place] [phone] Health Maintenance Due Date Last Done Comments [facility]-Bone Density Scan 1945 [facility]-Depression Screening 1945 [facility]-Medicare Annual Wellness (AWV) 1945 [facility]-/Child/Adol SDOH Screenings 01/01/1946 [facility]- SDOH Screenings 1964 [facility]-Adult SDOH Screenings 1964 [facility]-Zoster Vaccines (1 of 2) 1965 [facility]-RSV Vaccine: 60+ Years or (1 - 1-dose 75+ series) 2021 [facility]-EEARZ-70 Vaccine (9 - Moderna risk season) 2025 08/19/2024, 08/16/2023, 05/29/2023, Additional history exists [facility]-DTaP,Tdap,and Td Vaccines (4 - Td or Tdap) 06/30/2034 06/30/2024, 04/09/2023, 09/03/2018 [facility]-Pneumococcal Vaccine: 50+ Years Completed 07/12/2023, 05/14/2020 [facility]-Hepatitis C Screening Completed 06/30/2024 [facility]-Influenza Vaccine Completed 07/15/2025 , 07/11/2022, 07/26/2021, Additional history exists HPV Vaccines Aged Out No longer eligi [...] Antibody Negative Negative 06/30/2024 2:20 AM EDT [facility] Blood Venous blood specimen / Unknown Venipuncture / Unknown 06/30/2024 1:15 AM EDT 06/30/2024 1:40 AM EDT us Sami Rowell MD LAB BLOOD ORDERABLES Final Re sult [facility] [address] [place] [address] from Last 3 Months or Most Recently Relevant to Health Maintenance Insurance MEDICARE [facility] BRIAN SANTOYO [id number] Advance Directives * Full Code (Latest Code Status on File) Date Activated Date Inactivated Comments 07/04/2024 1:04 PM * Full Code Date Activated Date Inactivated Comments 06/30/2024 8:06 AM 07/04/2024 1:04 PM Question Answer Comments Patient has decision-making capacity? Yes Care Teams Threading Machine Feeder Automatic Relationship Specialty Start Date End Date Amparo Arrington MD [address] [facility] [address] [place] [address] PCP - General 03/04/21
--- OUTSIDE RECORDS SUMMARY | 2025-08-24 08:42 | XMS_ITS | Clinical Summary ---
Author Organization [facility] Address [address] [place] [address] Phone Care Team Providers Care Media Intern Name Role Phone Unavailable Primary Care Provider [...] B MEDICARE IN PART A AND B [facility]
--- OUTSIDE RECORDS SUMMARY | 2025-08-24 08:42 | XMS_ITS | Patient Health Record ---
Author Organization [facility] Address [address] [place] [id number] Care Team Providers Care Phone Engineer Name Role Phone Raul Torres Primary Care Provider Marie Helm Unavailable [phone] Oneida Edwards Unavailable [phone] Allergies Allergen (clinical drug ingredient) Drug/Non Drug [...] Active Results Component Value Reference Range Notes H-BMP Reviewed date:03/12/2025 11:04:11 AM Interpretation: Performing [...] 97 74-100 mg/dl CA 8.2 8.4-10.2 mg/dl H-PHOS Reviewed date:03/12/2025 11:04:11 AM Interpretation: [...] occasionally prescribed for medical conditions. H-CBC Reviewed date:07/24/2025 09:37:12 AM Interpretation: Performing [...] mg/dl CA 8.9 8.4-10.2 mg/dl H-CBC Reviewed date:07/27/2025 08:33:48 AM Interpretation: Performing Lab: Notes/Report: WBC 8.5 4.8-10.8 K/mm3 RBC 3.56 4.20-5.40 M/mm3 HGB 11.8 12.2-16.2 g/dL HCT 34.4 37.0-47.0 % MCV 96.6 81-99 fl MCH 33.1 27.0-31.2 pg MCHC 34.3 31.8-35.4 g/dL RDW-SD 45.8 RDW 12.9 11.5-17.5 % PLT 332 142-424 K/mm3 Delta: 261 on 07/26/25-0650 MPV 9.6 7.4-10.4 fl NE% 60.5 37.0-80.0 % LY% 18.1 10-50 % MO% 10.7 1.7-9.3 % EO% 1.9 0.1-12.0 % BA% 0.7 0.1-2.0 % NRBC% 0 IG% 8.1 NE# 5.1 1.8-7.8 K/mm3 LY# 1.5 0.7-4.5 K/mm3 MO# 0.9 0.1-1.0 K/mm3 EO# 0.2 0.0-0.4 Kmm3 BA# 0.1 0-0.2 K/mm3 NRBC# 0 IG# 0.69 H-DIFF Reviewed date:07/27/2025 08:33:48 AM Interpretation: Performing Lab: Notes/Report: CIELO MANUAL DIFFERENTIAL MANUAL DIFF TCC 100 NEUT%M 60 42-76 % BAND% 6.0 0-8 LYMPH%M 24 10-50 % MONO%M 6 2-9 % EOS%M 4 0-3 % PLTE Normal RM Normal H-BMP Reviewed date:07/27/2025 08:33:48 AM Interpretation: Performing [...] 81 on 07/26/25 CA 8.8 8.4-10.2 mg/dl M-Hemoglobin and Hematocrit Reviewed date:03/12/2025 11:04:11 AM Interpretation: Performing Lab: Notes/Report: HGB 11.4 12.2-16.2 g/dL HCT 32.1 37.0-47.0 % H-BMP Reviewed date:07/28/2025 11:32:54 AM Interpretation: Performing Lab: Notes/Report: NA 124 136-145 mmol/L K 4.4 3.5-5.1 mmoL/L CL 94 98-107 mmol/L CO2 19 22.0-30.0 mmol/L GAP 15.4 5-15 mEq/L BUN 8 7-17 mg/dl CREATT 0.90 0.52-1.04 mg/dl CRCLE 50 50-200 mL/min GFRAA 73 >60 ML/MIN EGFR 61 >60 ml/min GLU 79 74-100 mg/dl CA 8.8 8.4-10.2 mg/dl H-DIFF Reviewed date:07/28/2025 11:32:54 AM Interpretation: Performing Lab: Notes/Report: CIELO MANUAL DIFFERENTIAL MANUAL DIFF TCC 100 NEUT%M 62 42-76 % BAND% 1.0 0-8 LYMPH%M 27 10-50 % MONO%M 6 2-9 % EOS%M 2 0-3 % BASO%M 1.0 0-1 MYELO% 1 0-1 PLTE Normal RM Normal H-CBC Reviewed date:07/28/2025 11:32:54 AM Interpretation: Performing [...] 0.1 0-0.2 K/mm3 NRBC# 0 IG# 0.80 H-BMP Reviewed date:07/23/2025 08:33:44 AM Interpretation: Performing Lab: Notes/Report: NA 123 136-145 mmol/L K 3.2 3.5-5.1 mmoL/L CL 92 98-107 mmol/L CO2 24 22.0-30.0 mmol/L GAP 10.2 5-15 mEq/L BUN 5 7-17 mg/dl CREATT 0.80 0.52-1.04 mg/dl CRCLE 49 50-200 mL/min GFRAA 84 >60 ML/MIN EGFR 69 >60 ml/min GLU 114 74-100 mg/dl CA 8.0 8.4-10.2 mg/dl H-CBC Reviewed date:07/23/2025 08:33:44 AM [...] K/mm3 NRBC# 0 IG# 0.07 H-BMP Reviewed date:07/22/2025 12:02:51 PM Interpretation: Performing [...] 0.1 0-0.2 K/mm3 NRBC# 0 IG# 0.07 BMP Reviewed date:04/02/2025 02:57:40 PM Interpretation: Performing Lab: Notes/Report: H-BMP Reviewed date:03/17/2025 11:12:11 AM Interpretation: Performing [...] K 4.6 3.5-5.1 mmoL/L Delta: 3.4 on 03/13/25-606 CL 100 98-107 mmol/L CO2 21 22.0-30.0 [...] 13.0 12.2-16.2 g/dL Delta: 11.4 o n 03/12/25-907 HCT 36.2 37.0-47.0 % MCV 96.0 81-99 [...] 0.1 0-0.2 K/mm3 NRBC# 0 IG# 0.15 CBC Venipuncture (in house) Reviewed date:04/16/2025 11:50:29 [...] - 38 platlet 197 100 - 400 Cortisol AM Reviewed date:04/14/2025 01:09:28 PM Interpretation: Performing Lab: Notes/Report: Test performed by [facility] [address] [place] [address] , [address], [place] [address] Gilmer Lowe MD, Museum Registrar CLIA: [id number] Cortisol AM 5.3 6.0-18.4 ug/dL P-Basic Metabolic Panel (BMP ) Reviewed date:04/14/2025 01:09:28 PM Interpretation: Performing Lab: Notes/Report: Test performed by [facility] [address] [place] [place] [address] , [place] [address] Gilmer Lowe MD, Museum Registrar CLIA: [id number] Sodium 128 135-145 mmol/L Potassium 3.7 3.5-5.3 mmol/L Chloride 92 97-108 mmol/L CO2 24 22-32 mmol/L Glucose 93 65-99 mg/dL BUN 16 8-23 mg/dL Creatinine 1.02 0.50-1.00 mg/dL Calcium 9.2 8.6-10.4 mg/dL eGFR by Creatinine 56 >59 mL/min/1.73m2 CBC Fingerstick (in house) Reviewed [...] - 38 plat 185 100 - 400 P-Basic Metabolic Panel (BMP ) Reviewed date:10/07/2024 05:35:13 PM Interpretation:Na 131, cl 95, gluc 126, Cr 1.13, gfr 50 Performing Lab: Notes/Report: Test performed by [facility] [address] [place] [address] , [place] [address] Gilmer Lowe MD, Museum Registrar CLIA: [id number] Sodium 131 135-145 mmol/L Potassium 4.6 3.5-5.3 mmol/L Chloride 95 97-108 mmol/L CO2 22 22-32 mmol/L Glucose 126 65-99 mg/dL BUN 13 8-23 mg/dL Creatinine 1.13 0.50-1.00 mg/dL Calcium 9.5 8.6-10.4 mg/dL eGFR by Creatinine 50 >59 mL/min/1.73m2 P-Basic Metabolic Panel (BMP ) Reviewed date:05/26/2025 10:23:05 PM Interpretation:Na 122, cl 86, gluc 102 Performing Lab: Notes/Report: Test performed by [facility] [address] [place] [address] , [place] [address] Gilmer Lowe MD, Museum Registrar CLIA: [id number] Sodium 122 135-145 mmol/L Potassium 4.2 3.5-5.3 [...] 1.015 Ketone neg Bili neg Gluc neg Medications Medication SIG (Take, Route, Frequency, Duration) [...] W/U Status Risk Notes Problem Essential hypertension (32461491) Essential (primary) hypertension (I10) Active confirmed Problem Essential hypertension (00012257) Essential hypertension (I10) Active confirmed Problem Gout attack (280634606) Gout attack (M10.9) Active confirmed Problem Rhinitis (94498963) Rhinitis (J31.0) Active con firmed Problem Osteopenia (133374227) Osteopenia (M85.80) Active confirmed Problem Altered mental statu s (912227571) Altered mental state (R41.82) Active confirmed Problem Environmental allerg y (440466729) Environmental allergies (Z91.048) Active confirmed Problem Memory loss (76107829) Memory loss (R41.3) Active confirmed Problem Hypomagnesemia (608696619) Hypomagnesemia (E83.42) Active confirmed Problem Acute non-ST segment elevation myocardial infarction (050558599) Non-ST elevation (NSTEMI) myocardial infarction (I21.4) Active confirmed Problem Inflammatory polyarthropathy (111881827) 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) Active confirmed Problem Polymyalgia rheumatica (42162427) Polymyalgia rheumatica (M35.3) Active confirmed Problem Ataxic gait (72671615) Ataxic gait (R26.0) Active confirmed Problem Acquired hypothyroidism (999517403) Acquired hypothyroidism (E03.9) Active confirmed Problem Neck pain (78473895) Neck pain (M54.2) Active c onfirmed Problem Paresthesia (finding ) (88542607) Paresthesias (R20.2) Active confirmed Problem History of circulatory system disease (872573799) 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) Active confirmed Problem Muscle spasm (19776556) Muscle spasm (M62.838) Active confirmed Problem Rheumatoid arthritis (73501389) Rheumatoid arthritis (M06.9) Active confirmed Problem Sleep disorder (80141836) Sleep disorder (G47.9) Active confirmed Problem Cervical disc disorder (623936193) DDD (degenerative disc disease), cervical (M50.30) Active confirmed Problem Primary osteoarthritis (441568232) Primary osteoarthritis (M19.91) Active confirmed Problem Dyslipidemia (082232205) Dyslipidemia (E78.5) Active confirmed Problem Leukocytosis (410455183) Leukocytosis, unspecified (D72.829) Active confirmed Problem Atherosclerotic hear t disease of telida coronary artery without angina pectoris (854095447007862) Atherosclerosis of telida coronary artery without angina pectoris, unspecified whether telida or transplanted heart (I25.10) Active confirmed Problem Impairment of balanc e (106142973) Balance problem (R26.89) Active confirmed Problem Anemia (284868524) Mild anemia (D64.9) Active c onfirmed Problem Rheumatoid arthritis (50022642) Rheumatoid arthritis, involving unspecified site, unspecified whether rheumatoid factor present (M06.9) Active confirmed Problem Sialodocholithiasis (98468370) Sialodocholithiasis (K11.5) Active confirmed Vital Signs Heart Rate 76 /min 06/16/2025 Respiratory Rate 20 /min 03/31/2025 Blood pressure diastolic 70 mm Hg 06/16/2025 Height 65 in 06/16/2025 Blood pressure systolic 114 mm Hg 06/16/2025 Weight 152.2 lbs 06/16/2025 BMI 25.32 kg/m2 06/16/2025 Encounters Encounter Location Date Provider Diagnosis [facility] [address] [facility] [address] [place] [id number] 09/30/2024 R John Torres Leg edema R60.0 ; Hypokalemia E87.6 and Pain of hand, unspecified laterality M79.643 [facility] [address] [facility] [address] [place] [id number] 11/13/2024 R John Torres Chronic diarrhea K52 .9 and Rheumatoid arthritis, involving unspecified site, unspecified whether rheumatoid factor present M06.9 [facility] [address] [place] [id number] 12/12/2024 Oneida Edwards Open wound of right lower extremity, initial encounter S81.801A [facility] [address] [place] [id number] 12/25/2024 R John Melissa Rheumatoid arthritis M06.9 [facility] [address] [place] [address] [place] [id number] 02/05/2025 R John Melissa Acute sinusitis J01. 90 ; Inflammatory polyarthropathy M06.4 ; Polymyalgia rheumatica M35.3 ; Acquired hypothyroidism E03.9 ; Dyslipidemia E78.5 ; Essential hypertension I10 and BMI 24.0-24.9, adult Z68.24 [facility] [address] [place] [id number] 02/17/2025 R John Melissa Glossitis K14.0 ; Shoulder pain M25.519 and BMI 24.0-24.9, adult Z68.24 [address] [place] [id number] 03/31/2025 Marie Helm Polymyalgia rheumati ca M35.3 ; Rib fractures S22.39XA ; Acquired hypothyroidism E03.9 ; Dyslipidemia E78.5 ; Essential hypertension I10 ; Nausea R11.0 ; Leg edema R60.0 ; Hx of arteriosclerotic cardiovascular disease Z86.79 ; Accidental fall, subsequent encounter W19.XXXD ; Sleep disorder G47.9 and Hypokalemia E87.6 [facility] [address] [place] [id number] 04/09/2025 R John Melissa Hyponatremia E87.1 ; Rib fractures S22.39XA ; Chronic diarrhea K52.9 and BMI 23.0-23.9, adult Z68.23 [facility]10 [facility] [address] [place] [id number] 04/16/2025 R John Melissa Acute sinusitis J01. 90 ; Adhesive capsulitis of left shoulder M75.02 ; Dyslipidemia E78.5 ; Rib fractures S22.39XA ; Leg edema R60.0 and Onychomycosis B35.1 [facility] [address] [facility] [address] [place], [place] [id number] 05/07/2025 R John Melissa Inflammatory polyarthropathy M06.4 [facility] [address] [place], [place] [id number] 05/19/2025 R John Melissa Hyponatremia E87.1 ; Muscle weakness M62.81 and BMI 23.0-23.9, adult Z68.23 [facility] [address] [facility] [address] [place], [place] [id number] 05/26/2025 R John Melissa Hyponatremia E87.1 ; Memory loss R41.3 and BMI 24.0-24.9, adult Z68.24 [facility] [address] [place], [place] [id number] 05/28/2025 R John Melissa Altered mental state R41.82 [facility] [address] [place], [place] [id number] 06/16/2025 R John Melissa Rheumatoid arthritis M06.9 ; Leg edema R60.0 and Hyponatremia E87.1 [facility] [address] [place], [place] [id number] 07/15/2025 R John Melissa Encounter for immunization Z23 [facility] [address] [place], [place] [id number] 08/04/2025 R John Melissa [facility] [address] [place], [place] [id number] 08/26/2024 R John Melissa [facility] [address] [place] [id number] 09/04/2024 R John Melissa Fracture of pelvis S32.9XXA [facility] [address] [place], [place] [id number] 09/22/2024 R John Melissa Rib fractures S22.39 [facility] [address] [place] [id number] 10/01/2024 R John Melissa [facility] [address] [place] [id number] 10/08/2024 R John Melissa [facility] [address] [place] [id number] 10/23/2024 R John Melissa Leg edema R60.0 [facility] [address] [place], [place] [id number] 11/18/2024 R John Melissa Rib fractures S22.39 XA [facility] [address] [place] [id number] 11/25/2024 R John Melissa [facility] [address] [place] [id number] 12/12/2024 R John Melissa Chronic diarrhea K52 .9 [facility] [address] [place], [place] [id number] 12/17/2024 R John Melissa Rib fractures S22.39 XA [facility] [address] [place] [id number] 12/26/2024 R John Melissa [facility] [address] [place] [id number] 2024 R John Melissa Chronic diarrhea K52 .9 [facility] [address] [place] [id number] 01/06/2025 R John Melissa [facility] [address] [place] [id number] 01/13/2025 R John Melissa Rib fractures S22.39 XA [facility] [address] [place] [id number] 01/21/2025 R John Melissa [facility] [address] [place] [id number] 01/30/2025 R John Melissa Rib fractures S22.39 XA [facility] [address] [place] [id number] 02/02/2025 R John Melissa [facility] [address] [place] [id number] 02/04/2025 R John Melissa Chronic diarrhea K52 .9 [facility] [address] [place], [place] [id number] 02/16/2025 R John Melissa Rib fractures S22.39 XA [facility] [address] [place] [id number] 03/02/2025 Marie Helm Rib fractures S22.39 XA [facility] [address] [place] [id number] 03/16/2025 R John Melissa [facility] [address] [place] [id number] 03/23/2025 R John Melissa [facility] [address] [place] [id number] 04/02/2025 R John Melissa [facility] [address] [place] [id number] 04/07/2025 R John Melissa Leg edema R60.0 [facility] [address] [place] [id number] 04/09/2025 R John Melissa Leg edema R60.0 [facility] [address] [place] [id number] 04/10/2025 R John Melissa [facility] [address] [place] [id number] 04/13/2025 R John Melissa [facility] [address] [place] [id number] 04/13/2025 R John Melissa Acquired hypothyroid ism E03.9 [facility] [address] [place] [id number] 04/14/2025 R John Melissa [facility] [address] [place] [id number] 04/19/2025 R John Melissa Screening for osteoporosis Z13.820 [facility] [address] [place] [id number] 04/20/2025 R John Melissa [facility] [address] [place] [id number] 04/22/2025 R John Melissa Nausea R11.0 [facility] [address] [place] [id number] 05/06/2025 R John Melissa Hypokalemia E87.6 [facility] [address] [place], [place] [id number] 05/26/2025 R John Melissa [facility] [address] [place] [id number] 05/29/2025 Oneida Renedy [facility] [address] [place] [id number] 06/02/2025 R John Melissa [facility] [address] [place] [id number] 06/02/2025 R John Melissa [facility] [address] [place], [place] [id number] 06/09/2025 R John Melissa [facility] [address] [place] [id number] 06/09/2025 R John Melissa [facility] [address] [place], [place] [id number] 06/18/2025 R John Melissa Leg edema R60.0 [facility] [address] [place], [place] [id number] 06/25/2025 R John Melissa [facility] [address] [place], [place] [id number] 07/06/2025 R John Melissa [facility] [address] [facility] [address] [place] [id number] 07/24/2025 Raul Torres Assessments Encounter Date Diagnosis (ICD Code) Assessment Notes Treatment Notes Treatment Clinical Notes Section Notes 09/04/2024 Fracture of pelvis (ICD-10 - S32.9XXA) [...] Date MEDICARE PART B [address] [address] [place] [address] [id number] KWASI HUYNH Self - patient is the insured [employer] [place] [employer] [facility] [place] [id number] [id number] KWASI HUYNH Self - patient is the [...] hypertension Hypothyroidism/goiter kidney stones allergic rhinitis [facility]: [place] - 09/2013-followed by Dr. Arrington q 6 months cataracts Hyperuricemia Inflammatory arthritis - Dr. Cheng polymyalgia rheumatica - Dr. Skylar Bhatia Covid vaccine x2 Oct/Nov 2020 Surgical History Surgery Date(Month/Year) Thyroidectomy/Goiter removal 1999 Back 2001 Total Hysterectomy 1992 Tonsillectomy child Cardiac Stent Placed-[facility]-Dr Arrington. Dr. Santo 10/19/2013 Cataract 10/2017 Hospitalization History Reason Date(Month/Year) [facility] : fall with multiple FX ribs on the right; hyponatremia and hypokalemia 03/12-03/15/2025 Dehydration, Failure to Thrive, Acute Ur inary Retention- [facility] 07/14- Multiple rib and pelvic frac tures; hyponatremia; rheumatoid arthritis; [facility]- 06/30- Itching, Swelling in Hands- [facility] ER 10/21 Facial Pain, Sinus Blockage- [facility] ER 07/0 01/2018 Heart Attack[facility] 09/2013 kidney stones 1993
--- OUTSIDE RECORDS SUMMARY | 2025-08-24 08:42 | XMS_ITS | Clinical Summary ---
Author Organization [facility] Address [address] [place] [address] Care Team Providers Care Television News Anchor Name Role Phone Wyatt Torres MD Primary [...] , 07/12/2020, Additional history exists COVID-19 Vaccine (9 - Modern a risk ) 06/22/2025 08/19/2024, 08/16/2023, 05/29/2023, Additional history exists LIPID [...] - 200 mg/dL 01/15/2025 12:23 AM EDT [facility] Triglycerides 89 0 - 150 mg/dL 01/15/2025 12:23 AM EDT [facility] HDL Cholesterol 99(H) 40 - 60 mg/dL 01/15/2025 12:23 AM EDT [facility] LDL Cholesterol 75 0 - 100 mg/dL 01/15/2025 12:23 AM EDT [facility] VLDL Cholesterol 16 5 - 40 mg/dL 01/15/2025 12:23 AM EDT [facility] LDL/HDL Ratio 0.74 01/15/2025 12:23 AM EDT [facility] Blood Venipuncture / Unknown 01/14/2025 10:25 AM EDT 01/14/2025 10:26 AM EDT Narrative [facility] - 01/15/2025 12:23 AM EDT [...] MD LAB BLOOD ORDERABLES Final Resul t [facility]
[address] [place] [address], from Last 3 Months or Most Recently Relevant to Health Maintenance Insurance MEDICARE A & B [employer] [facility] [place] [id number] Care Teams Television News Anchor Relationship Specialty Start Date End Date Wyatt Torres MD [address] [facility] [address] [facility] [address] [place] [address] PCP - General Family Medicine 12/26/24
--- OUTSIDE RECORDS SUMMARY | 2025-08-24 08:42 | XMS_ITS | Encounter Summary ---
Author Organization [facility] Address [address] [place] [address] Care Team Providers Care Adaptive Physical Education Specialist Name Role Phone Wyatt Torres MD Primary Care Provider Encounter Details Date Type Department Care Team (Late st Contact Info) Description 01/15/2025 Results Follow-Up [facility] [address] [facility] [address] [phone] Jennyfer Porras APRN [address] [facility] [address] [place] [address] Social History Tobacco Use Types Packs/Day Years Used Date Smoking Tobacco: Former Cigarettes Smokeless Tobacco: Never Alcohol Use Standard Drinks/Week Comments Yes 0 (1 standard drink = 0.6 oz pur e alcohol) a glass of wine at [facility] Comments Unknown Sex and Gender Information Value Date Recorded Sex Assigned at Not on file Legal Sex Female 11:41 AM EDT Gender Identity Not on file Sexual Orientation Not on file documented as of this encounter Plan of Treatment Not on file documented as of this encounter Visit Diagnoses Not on filedocumented in this encounter Care Teams Adaptive Physical Education Specialist Relationship Specialty Start Date End Date Wyatt Torres MD [address] [facility] [address] [facility] [place] [facility] [place] [address] PCP - General Family Medicine 12/26/24 documented as of this encounter
[2025-08-24 09:49] LABS: Anion Gap 10.3 mEq/L (5-15); Blood Urea Nitrogen 13 mg/dl (7-17); Calcium 10.3 mg/dl (8.4-10.2); Carbon Dioxide 22 mmol/L (22.0-30.0); Chloride 93 mmol/L (98-107); Creatinine,Serum 1.00 mg/dl (0.52-1.04); Estimated Glomerular Filt Rate 54 ml/min (>60); GFR (African American) 65 ML/MIN (>60); Glucose 83 mg/dl (74-100); Potassium 4.3 mmoL/L (3.5-5.1); Sodium 121 mmol/L (136-145)
== END 2025-08-24 23:59 | disposition home or self-care (01) ==
PROVIDERS: PCP Family Medicine; Visit Provider Family Medicine
DX: N17.9 Acute kidney failure, unspecified (principal)
CPT/HCPCS: 36415; 80048

== ENCOUNTER 2025-08-26 11:19 | Outpatient (CLI) | payer MEDICARE, OTHER, SELFPAY ==
--- OUTSIDE RECORDS SUMMARY | 2025-08-26 11:55 | XMS_ITS | Encounter Summary ---
Author Organization [facility] Address [address] [place] [address] Care Team Providers Care Exhauster Name Role Phone Amparo Arrington MD Primary Care Provider [phone] Encounter Details Date Type Department Care Team (Late st Contact Info) Description 08/24/2025 Orders Only [facility] [address] [place] [address] Anita Luu Hyponatremia (Primary Dx); Vitamin [...] place to sleep or slept in a residential (including now)? No 07/01/2024 Utilities Answer Date [...] as of this encounter Plan of Treatment Upcoming Encounters Date Type Department Care Team (Late st Contact Info) Description 10/23/2025 12:20 PM EST Office Visit [facility] [address] [place] [address] Vicente Rodrigez MD [address] [place] [phone] Scheduled Orders Name Type Priority Associated Diagnoses Orde r Schedule Renal Function Panel, Plasma Lab Routine Hyponatremia Expected: 08/24/2025 (Approximate), Expires: 02/21/2027 CBC and Differential Lab Routine Hyponatremia Expected: 08/24/2025 (Approximate), Expires: 02/21/2027 Creatinine, Random, Urine Lab Routine Hyponatremia Expected: 08/24/2025 (Approximate), Expires: 02/21/2027 Protein, Random, Urine with Creatinine Lab Routine Hyponatremia Expected: 08/24/2025 (Approximate), Expires: 02/21/2027 Urinalysis with reflex microscopic (Culture NOT Included) Lab Routine Hyponatremia Expected: 08/24/2025 (Approximate), Expires: 02/21/2027 PTH Intact Total Lab Routine Hyponatremia Vitamin D insufficiency Expected: 08/24/2025 (Approximate), Expires: 02/21/2027 Vitamin D 25 Hydroxy Lab Routine Hyponatremia Vitamin D insufficiency Expected: 08/24/2025 (Approximate), Expires: 02/21/2027 Osmolality, Serum Lab Routine Hyponatremia Expected: 08/24/2025 (Approximate), Expires: 02/21/2027 Osmolality, Urine Lab Routine Hyponatremia Expected: 08/24/2025 (Approximate), Expires: 02/21/2027 Sodium, Random, Urine Lab Routine Hyponatremia Expected: 08/24/2025 (Approximate), Expires: 02/21/2027 documented as of this encounter Visit Diagnoses Diagnosis Hyponatremia- Primary Hyposmolality and/or hyponatremia Vitamin D insufficiency documented in this encounter Additional Health Concerns Assessment Noted Time A Body Mass Index follow-up plan has been documented for the patient 07/04/2024 1:22 PM EDT documented as of this encounter Care Teams Exhauster Relationship Specialty Start Date End Date Amparo Arrington MD [address] [place] [address] PCP - General 03/04/21 documented as of this encounter
--- OUTSIDE RECORDS SUMMARY | 2025-08-26 11:55 | XMS_ITS | Clinical Summary ---
Author Organization [facility] Address [address] [place] [address] Care Team Providers Care Image Assembler Name Role Phone Amparo Arrington MD Primary Care Provider [phone] Allergies Active Allergy Reactions Criticality Noted Date [...] PMF's reviewed and stable PT/OT as tolerated [facility] Acquired hypothyroidism 06/30/2024 Overview (06/30/2024): Continue home levothyroxine Complicates all aspects of care Coronary artery disease invo lving [place] coronary artery of [place] heart without angina pectoris 06/30/2024 Overview (06/30/2024): [...] Encounters Date Type Department Care Team Description 08/24/2025 Orders Only [facility] [address] [place] [address] Anita Luu Hyponatremia (Primary Dx); Vitamin D insufficiency 06/19/2025 Orders Only [facility] [address] [address] Anita Luu Hyponatremia (Primary Dx); Vitamin [...] Description 10/23/2025 12:20 PM EST Office Visit [facility] [address] [place] [address] Vicente Rodrigez MD [address] [place] [phone] Health Maintenance Due Date Last Done Comments [facility]-Bone Density Scan 1945 [facility]-Depression Screening 1945 [facility]-Medicare Annual Wellness (AWV) 1945 [facility]-Infant/Child/Adol SDOH Screenings 01/01/1946 [facility]- SDOH Screenings 1964 [facility]-Adult SDOH Screenings 1964 [facility]-Zoster Vaccines (1 of 2) 1965 [facility]-RSV Vaccine: 60+ Years or (1 - 1-dose 75+ series) 2021 [id number] Vaccine (9 - Moderna risk 2023- season) 2025 08/19/2024, 08/16/2023, 05/29/2023, Additional history [...] ORDERABLES Final Re sult [facility] [address] [place] [address] from Last 3 Months or Most Recently Relevant to Health Maintenance Insurance MEDICARE [facility] [place] [address] Advance Directives * Full Code (Latest Code Status on File) Date Activated Date Inactivated Comments 07/04/2024 1:04 PM * Full Code Date Activated Date Inactivated Comments 06/30/2024 8:06 AM 07/04/2024 1:04 PM Question Answer Comments Patient has decision-making capacity? Yes Care Teams Image Assembler Relationship Specialty Start Date End Date Amparo Arrington MD [address] [facility] [address] [place] [address] PCP - General 03/04/21
--- OUTSIDE RECORDS SUMMARY | 2025-08-26 11:55 | XMS_ITS | Clinical Summary ---
Author Organization [facility] Address [address] [place] [address] Care Team Providers Care Implementation Specialist Payroll Name Role Phone Wyatt Torres MD Primary Care Provider [phone] Source Comments This information has been disclosed [...] therelease of HIV test results or diagnoses. [id number] Allergies Active Allergy Reactions Criticality Noted [...] A [employer] B [employer] Care Teams Implementation Specialist Payroll Relationship Specialty Start Date End Date Wyatt Torres MD [address] [place] [address] PCP - General Family Medicine 04/09/23
--- OUTSIDE RECORDS SUMMARY | 2025-08-26 11:56 | XMS_ITS | Encounter Summary ---
[facility] Address [address] [place] [address] Care Team Providers Care Insurance Loss Adjuster Name Role Phone Wyatt Torres MD Primary Care Provider Encounter Details Date Type Department Care Team (Late st Contact Info) Description 01/15/2025 Results Follow-Up [facility] [address] [facility] [address] [phone] Jennyfer Porras APRN [address] [facility] [address] [place] [address] Social History Tobacco Use Types Packs/Day Years Used Date Smoking Tobacco: Former Cigarettes Smokeless Tobacco: Never Alcohol Use Standard Drinks/Week Comments Yes 0 (1 standard drink = 0.6 oz pur e alcohol) a glass of wine at [facility] [place] Comments Unknown Sex and Gender Information Value Date Recorded Sex Assigned at Not on file Legal Sex Female 11:41 AM EDT Gender Identity Not on file Sexual Orientation Not on file documented as of this encounter Plan of Treatment Not on file documented as of this encounter Visit Diagnoses Not on filedocumented in this encounter Care Teams Insurance Loss Adjuster Relationship Specialty Start Date End Date Wyatt Torres MD [address] [place] [facility] [address] [facility] [place] [address] PCP - General Family Medicine 12/26/24 documented as of this encounter
--- OUTSIDE RECORDS SUMMARY | 2025-08-26 11:56 | XMS_ITS | Clinical Summary ---
Author Organization [facility] Address [address] [place] [address] Care Team Providers Care Die Sinking Machine Operator Name Role Phone Wyatt Torres MD Primary [...] Take 1 tablet by mouth Daily. Active levothyroxine (SYNTHROID, LEVOTHROID) 112 MCG tablet [...] - 200 mg/dL 01/15/2025 12:23 AM EDT [facility] Triglycerides 89 0 - 150 mg/dL 01/15/2025 12:23 AM EDT [facility] HDL Cholesterol 99(H) 40 - 60 mg/dL 01/15/2025 12:23 AM EDT [facility] LDL Cholesterol 75 0 - 100 mg/dL 01/15/2025 12:23 AM EDT [facility] VLDL Cholesterol 16 5 - 40 mg/dL 01/15/2025 12:23 AM EDT [facility] LDL/HDL Ratio 0.74 01/15/2025 12:23 AM EDT [facility] Blood Venipuncture / Unknown 01/14/2025 10:25 AM EDT 01/14/2025 10:26 AM EDT Narrative [facility] - 01/15/2025 12:23 AM EDT Cholesterol [...] MD LAB BLOOD ORDERABLES Final Resul t [facility]
[address] [place] [address], from Last 3 Months or Most Recently Relevant to Health Maintenance Insurance MEDICARE A & B [employer] [facility] [place] [id number] Care Teams Die Sinking Machine Operator Relationship Specialty Start Date End Date Wyatt Torres MD [address] [facility] [address] [facility] [address] [place] [address] PCP - General Family Medicine 12/26/24
--- OUTSIDE RECORDS SUMMARY | 2025-08-26 11:56 | XMS_ITS | Data Portability ---
Author Organization [facility] C[facility]EN [facility] Address [address] [facility] [address] [place] [address] Care Team Providers Care Emd Special Education Teacher Name Role Phone EMA CAMPOS Primary Care Provider ROSE BASS Social Work Lecturer Assessment Encounter Date Assessment Date Assessment LastModified [...] recorded. Lab rf (rheumatoid factor), serum 2023 [facility], [address] [place] [address], [phone], 11:20:43 ccp (cyclic citrullinat ed peptide) iga+igg, serum 2023 024 [facility], [address] [place] [address], [address], 4 16:52:40 ESR (erythrocyt e sedimentati on rate), blood 2023 024 [facility], [address] [place] [address], [address], 4 11:12:24 C reactive protein, QN, serum or plasma 2023 024 [facility], [address] [place] [address], [address], 4 11:20:45 Mycobacteri um tuberculosi s stimulated gamma interferon, qual, blood 2023 024 [facility], [address] [place] [address], [address], 4 02:43:42 hepatitis C Ab, serum 2023 024 [facility], [address] [place] [address], [address], 4 11:39:06 ESR (erythrocyt e sedimentati on rate), blood 2023 024 [facility], [address] [place] [address], [address], 4 11:13:45 C reactive protein, QN, serum or plasma 2023 024 [facility], [address] [place] [address], [address], 4 11:26:25 Referral None recorded. Procedures None recorded. Surgeries None recorded. Imaging None recorded. Medication Orders prednisone 5 mg tablet 2024 025 [facility] [address], [address], 5 10:42:41 Cymbalta 30 mg capsule,del ayed release 2023 024 GIOVAN[facility] [address], [address], [address], 4 10:15:00 Depo-Medrol 80 mg/mL suspension for injection 2023 024 martag[facility] [address] [place], [address], 4 10:45:28 Patient TargetsNo targets recorded. Patient InstructionsNo instructions recorded. Reason for Referral None Reported. Results Created Date Observation Date Name Description Value Unit Range Abnormal Flag Note LastModifiedBy Organization Detail LastModifiedTime 10/25/1910/25/2023 ESR, AUTOM ATED ESR, automated 7 mm 0-29 normal Not Available [facility] [address] [place] [address], [address], 10/25/2023 11:13:45 10/25/19 24 10/25/2023 C REACT KASANDRA PROTE IN C reactive protein 0.17 mg/dL 0.00-0 .49 normal Not Available [facility] [address] [place] [address], [address], 10/25/2023 11:26:25 05/07/20 24 05/07/2024 ESR, AUTOM ATED ESR, automated 12 mm 0-29 normal Not Available [facility] [address] [place] [address], [address], 05/07/2024 11:12:24 05/07/20 24 05/07/2024 RF SCREE N, QUANT . rf screen, quant. <10.0 [IU]/ mL 0.0-13 .9 normal Not Available [facility] [address] [place] [address], [address], 05/07/2024 11:20:43 05/07/20 24 05/07/2024 C REACT KASANDRA PROTE IN C reactive protein 0.17 mg/dL 0.00-0 .49 normal Not Available [facility] [address] [place] [address], [address], 05/07/2024 11:20:45 05/07/20 24 05/07/2024 HEPAT ITIS C AB SCR, REFLE X HCVQT hcab scr, reflex viral RNA qt NONREA CTIVE nonrea ctive normal Antib odies to HCV were not detec beth; does not exclu de the possi bilit y of expos ure to HCV. Not Available [facility] [address] [place] [address], [address], 05/07/2024 11:39:06 05/07/20 24 05/09/2024 ANTI- CCP anti-ccp <16 units normal Refer ence Range Negat kasandra: <20 Weak Posit kasandra: 20-39 Moder ate Posit kasandra: 40-59 Stron g Posit kasandra: >59 Not Available [facility] [address] [place] [address], [address], 05/09/2024 16:52:40 05/07/20 24 05/10/2024 QUANT IFERO N TB GOLD qtb gold NEGATI VE negati ve normal Negat kasandra test resul t. M. tuber culos is compl ex infec tion unlik erin. Not Available [facility] [place], [address], 05/15/2024 15:49:02 05/07/20 24 05/10/2024 QUANT IFERO N TB GOLD nil 0.01 IU/mL normal Not Available [facility] [place], [address], 05/15/2024 15:49:02 05/07/20 24 05/10/2024 QUANT IFERO N TB GOLD mitogen nil >10.00 IU/mL normal Not Available [facility] [place], [address], 05/15/2024 15:49:02 05/07/20 24 05/10/2024 QUANT IFERO N TB GOLD TB1 nil 0.00 IU/mL normal Not Available [facility] [address] [place], [address], 05/15/2024 15:49:02 05/07/20 24 05/10/2024 QUANT IFERO [...] refer to https ://ed ucati on.qu blayne [employer]. Laguo/f aq/FA Q204 (This link is being provi ded for infor uday cormier/ toi tamayo l purpo ses only. ) Not Available [facility] [address] [place], [address], 05/15/2024 15:49:02 Result Notes None recorded. Problems Name Problem SNOMED Code Status Onset Date Resolution Date Notes Provider Name and Address Organization Details Recorded Time Hyperuricemia 74272243 Active 2017 ARLENE MEI, PSYCHIATRIC CLINICIAN [address] [place], [address], [facility] 8 15:44:58 Problem Notes None recorded. Procedures Surgical History Date Name Laterality Status Provider Name and Address Organization Details Recorded Time Remove tonsils and adenoids completed [facility] 12/19/2018 09:47:28 Removal of thyroid completed [facility] 12/19/2018 09:47:47 Imaging Results None recorded. Procedure Notes None recorded. Medical Equipment None Reported. Allergies Allergen ID Allergen Name Allergen Category Reaction Reaction Severity Criticality Documentation Date Start Date Code Code System Note Provider Name and Address Organization Details Recorded Time 370147 Substance with sulfonami de structure and antibacte rial mechanism of action (substanc e) medicatio n Not available Not available Not available 09/15/20162014 66206 8003 SNOMED Comme nt: Creat ed By: Rayna Gonzalez; Creat ed Date: 2014 10:04 :26 AM; Not Available [facility] 6 09:13:41 542510 codeine medicatio n Not available Not available Not available 09/15/20162014 2670 RxNorm Comme nt: Creat ed By: Rayna Gonzalez; Creat ed Date: 2014 10:03 :51 AM; Not Available [facility] 6 09:37:20 Medications Name Sig [...] levothyr oxine; Dosage:1 ; refills: 0; Quantity :04111 mcg Not Available Not Available Not Available [...] Updated DateTime 4 167.64 cm 24.7 kg/m2 82918.6 3 g 16 /min 67 /min 96 % 96 % 152/90 mm[Hg] Frieda Mcmahon [facility] 10:07:20 Date Recorded Body height Body mass index (BMI) Body weight Provider Name and Address Organization Details Last Updated DateTime 10/28/2024 167.64 cm 24.7 kg/m2 20572.63 g [facility] 10/28/2024 13:15:40 Date Recorded Body height Body mass index (BMI) Body weight Respiratory rate Heart rate Oxygen saturation Oxygen saturation in Arterial blood by Pulse oximetry Systolic And Diastolic Provider Name and Address Organization Details Last Updated DateTime 4 167.64 cm 24.7 kg/m2 40818.6 3 g 16 /min 69 /min 96 % 96 % 120/80 mm[Hg] [facility] 4 10:42:58 Date Recorded Body height Respiratory rate Body mass index (BMI) Body weight Oxygen saturation Oxygen saturation in Arterial blood by Pulse oximetry Heart rate Systolic And Diastolic Provider Name and Address Organization Details Last Updated DateTime 5 167.64 cm 16 /min 24.7 kg/m2 15967.6 3 g 97 % 97 % 68 /min 126/82 mm[Hg] Arash [facility] 5 10:34:11 Date Recorded Body height Body mass index (BMI) Body weight Respiratory rate Heart rate Oxygen saturation Oxygen saturation in Arterial blood by Pulse oximetry Systolic And Diastolic Provider Name and Address Organization Details Last Updated DateTime 4 167.64 cm 24.7 kg/m2 11618.6 3 g 16 /min 86 /min 97 % 97 % 122/80 mm[Hg] [facility] 4 09:59:55 Social History Question Answer Notes LastModified by [employer] Details LastModified Time Tobacco Smoking Status Former Smoker January [facility] 10/26/2017 14:04:04 How Much Tobacco Do You Chew? None Information not available 06/19/2019 What Was The Date Of Your Most Recent Tobacco Screening? 01/27/2025 [email or web address] Information not available 01/27/2025 How Much Tobacco Do You Smoke? 1 PPD Information not available 06/19/2019 How Many Years Have You Smoked Tobacco? 40 Information not available 06/19/2019 Have You Recently Traveled Abroad? No [email or web address] Information not available 10/24/2022 Sex: Unknown Functional Status Question Answer Note LastModified by Organizat ion Details LastModified Time What is your level of alcohol consumption? None [email or web address] Information not available 12/19/2018 Do you or [...] ICD10 Code Diagnosis IMO Codes Diagnosis Note [id number] ARLENE MEI APRN [facility] [address] [place] [address] 10/26/2017 13:52:29 10/26/2017 14:49:45 Pain of multiple joints 17817916 M25.50 71 year old female is here [...] go over results. Anti-nucle ar factor detected 733850096 R76.8 As detailed above OPAL obtained in 2013 was 1:160 homogenous .Recently checked per PCP and was homogenous 1:320.Will obtain lupus panel today. [id number] ARLENE MEI APRN [facility] [address] [place] [address] 11/08/2017 10:21:14 11/12/2017 08:10:02 Hyperuricemia 21758582 E79.0 Hyperurice miaPatient reports episodes of heat [...] 3 months, to recheck uric acid level. [id number] ROSE BASS MD [facility] [address] [place] [address] 11/04/2018 10:30:43 11/07/2018 07:59:17 Inflammatory polyarthropathy 314406852 M06.4 very pleasant 72-year-ol d female with [...] she was comfortabl e with the plan. [id number] ROSE BASS MD [facility] [address] [place] [address] 12/19/2018 09:01:43 12/20/2018 08:50:39 Polymyalgia rheumatica 44942302 M35.3 clinically looks so much better. Active and passive range of motion. She has palpable pulses without any jaw tenderness or temporal tenderness . I would like her to maintain prednisone at 5 mg once a day. Inflammato ry polyarthropathy 484209507 M06.4 in terms of inflammato ry arthritis, [...] Her baseline eye examinatio n is stable. [id number] ROSE BASS MD [facility] [address] [address] 06/19/2019 09:47:18 06/24/2019 08:38:26 Polymyalgia rheumatica 98072044 M35.3 chronic disease and under excellent control. In clinical remission. Excellent Range of motion. No physical limitation s noted. I would like her to maintain prednisone at 5 mg once a day. Inflammato ry polyarthropathy 820411183 M06.4 chronic polyarticu lar inflammato ry arthritis associated with PMR remains in clinical remission. I would like her to continue with hydroxychl oroquine at 200 mg once a day. [id number] ROSE BASS MD R[facility]OL [facility] [address] [place] [address] 06/21/2020 07:59:24 06/21/2020 11:07:16 Polymyalgia rheumatica 16283246 M35.3 74-year-ol d female with chronic polymyalgi [...] headaches or vision changes. Inflammato ry polyarthropathy 120536126 M06.4 chronic polyarticu lar inflammato ry arthritis associated with PMR. fairly stable. maintain hydroxychl oroquine 200 mg twice a [id number] ROSE BASS MD [facility] [address] [place] [address] 09/29/2020 10:12:08 09/29/2020 10:38:53 Polymyalgia rheumatica 41161831 M35.3 74-year-ol d female with chronic polymyalgi [...] follow-up in 3 months Inflammato ry polyarthropathy 204338598 M06.4 associated inflammato ry arthritis. Symptomati marvin joint pains as detailed above. Medication s As described above combinatio n of hydroxychl oroquine and prednisone . Follow-up in 3 months. [id number] ROSE BASS MD [facility] [address] [place] [address] 12/29/2020 10:28:14 12/29/2020 11:52:19 Polymyalgia rheumatica 10726747 M35.3 74-year-ol d female with chronic polymyalgi [...] n once a year. Inflammato ry polyarthropathy 693336179 M06.4 Chronic and associated with polymyalgi a rheumatica . Currently clinically stable. Maintain the combinatio n of prednisone as well as hydroxychl oroquine as stated above. [id number] ROSE BASS MD [facility] [address] [place] [address] 04/29/2021 09:27:28 04/29/2021 10:15:19 Inflammatory polyarthropathy 548789240 M06.4 Chronic and associated with polymyalgi a rheumatica . has done well. Isabelle khan not able to load the prednisone dose and is currently on prednisone 10 mg alternatin g with 5 mg every other day. She also takes hydroxychl oroquine 200 mg twice a day. Must need to follow with eye examinatio n once a year Polymyalgi a rheumatica 00242205 M35.3 75-year-ol d female with chronic polymyalgi a rheumatica . Clinically stable on the current dose of prednisone as detailed above. No stigmata for giant cell arteritis. Repeat the ESR. Follow with eye examinatio n once a year. Long-term drug therapy 173341834 Z79.899 Of pain last follow-up on polymyalgi a rheumatica and inflammato ry arthritis. Bone density test needs to be done every 2 years. Maintain calcium and vitamin D on account of risk for osteoporos is on steroids. Also suggested to follow up with a bone density test with her primary care physician [id number] ROSE BASS MD [facility] [address] [place] [address] 11/02/2021 12:56:26 11/02/2021 13:19:32 Inflammatory polyarthropathy 197498202 M06.4 [id number] ar-old with polyarthri tis Chronic and stable. The current combinatio n of prednisone and hydroxychl oroquine is very helpful. Refills were given.Foll ow-up in 6 months Polymyalgi a rheumatica 81876814 M35.3 75-year-ol d female with chronic polymyalgi a rheumatica . Clinically stable on the current dose of prednisone 10 mg alternatin g with 5 mg every other day along with hydroxychl oroquine 200 mg twice a day. No stigmata for giant cell arteritis. Repeat the ESR. Follow with eye examinatio n once a year. Long-term drug therapy 494027044 Z79.899 Must follow-up with an eye examinatio n every year. Bone density test every 2 years. Maintain calcium vitamin D. Also suggested to follow up with a bone density test with her primary care physician [id number] ROSE BASS MD [facility] [address] [place] [address] 05/01/2022 08:17:48 05/01/2022 15:37:51 Inflammatory polyarthropathy 516469495 M06.4 76- year-old with polyarthri tis Seronegati [...] ow-up in 6 months Polymyalgi a rheumatica 79271623 M35.3 76-year-ol d female with chronic polymyalgi a rheumatica . Clinically stable. No proximal muscle pain or weakness reported.N o stigmata for giant cell arteritis. Last ESR 04/29/2021 9 mm/h Repeat the ESR. Follow with eye examinatio n once a year. Long-term drug therapy 481301926 Z79.899 Must follow-up with an eye examinatio n every year. Bone density test every 2 years. Maintain calcium vitamin D. She typically follows the bone density test with her PCP. She will get us a copy. [id number] ROSE BASS MD [facility] [address] [place] [address] 10/24/2022 13:59:01 10/25/2022 14:30:30 Inflammatory polyarthropathy 849008471 M06.4 76- year-old with polyarthri tisSeroneg ative [...] renal toxicity. Refills given Polymyalgi a rheumatica 83019397 M35.3 76-year-ol d female with chronic polymyalgi a rheumatica .From the PMR point of view looks stable.No proximal muscle pain or weakness reported.N o stigmata for giant cell arteritis. Last ESR 04/29/2021 9 mm/h Repeat ESR today Long-term drug therapy 279414662 Z79.899 Must follow-up with an eye examinatio n every year While taking the hydroxychl oroquine. On account of corticoste roid use, osteoporos is, osteonecro sis risk were reviewed. Weight gain diabetes also reviewed. Must follow with a bone density every 2 years [id number] ROSEROMMEL BASS MD [facility] [address] [place] [address] 04/03/2023 13:22:18 04/05/2023 04:49:45 Inflammatory polyarthropathy 438733797 M06.4 77- year-old with polyarthri tisSeroneg ative [...] toxicity. Follow-up 6 months Polymyalgi a rheumatica 63621699 M35.3 77-year-ol d female with chronic polymyalgi [...] prednisone resulted in flare. Long-term drug therapy 928462875 Z79.899 Must follow-up with an eye examinatio n every year While taking the hydroxychl oroquine. On account of corticoste roid use, osteoporos is, osteonecro sis risk were reviewed. Weight gain diabetes also reviewed. Must follow with a bone density every 2 years [id number] ROSE BASS MD R[facility]UMATOL [facility] [address] [place] [address] 10/25/2023 09:56:13 10/26/2023 15:37:58 Inflammatory polyarthropathy 095765217 M06.4 77- year-old with polyarthri tisSeroneg ative [...] toxicity. Follow-up 3 months Polymyalgi a rheumatica 32402096 M35.3 77-year-ol d female with chronic polymyalgi [...] her current treatment plan. Long-term drug therapy 910921814 Z79.899 Must follow-up with an eye examinatio n every year While taking the hydroxychl oroquine. On account of corticoste roid use, osteoporos is, osteonecro sis risk were reviewed. Weight gain diabetes also reviewed. Must follow with a bone density every 2 years [id number] ROSE BASS MD [facility] [address] [place] [address] 01/21/2024 10:13:42 01/22/2024 04:18:34 Inflammatory polyarthropathy 724594054 M06.4 78- year-old with polyarthri tisSeroneg ative [...] toxicity. Follow-up 3 months Polymyalgi a rheumatica 48009707 M35.3 78-year-ol d female with chronic polymyalgi [...] CRP 10/25/2023 is normal Long-term drug therapy 068264684 Z79.899 Must follow-up with an eye examinatio n every year While taking the hydroxychl oroquine. On account of corticoste roid use, osteoporos is, osteonecro sis risk were reviewed. Weight gain diabetes also reviewed. Must follow with a bone density every 2 years Fibromyalgia 347415046 M 79.7 Symptomati c with diffuse fibromyalg ia tender points. Discussed the diagnosis of fibromyalg ia. Educated about the disease. On account of fibromyalg ia pain, suggested the addition of cymbalta. Side effect profile reviewed. Prescripti on sent. Breast reduction discussed. Follow up in March 2024. [id number] ROSE BASS MD [facility] [address] [place] [address] 05/07/2024 09:49:06 05/08/2024 04:38:13 Inflammatory polyarthropathy 475942467 M06.4 78- year-old with polyarthri tisSeroneg ative [...] toxicity. Follow-up 3 months Polymyalgi a rheumatica 80764940 M35.3 78-year-ol d female with chronic polymyalgi [...] ESR and CRP today. Long-term drug therapy 067192034 Z79.899 Must follow-up with an eye examinatio n every year While taking the hydroxychl oroquine. On account of corticoste roid use, osteoporos is, osteonecro sis risk were reviewed. Weight gain diabetes also reviewed. Must follow with a bone density every 2 yearsTB and hep c test today. Fibromyalgia 467140638 M 80.7 Symptomati c with diffuse fibromyalg ia tender points. Discussed the diagnosis of fibromyalg ia. Educated about the disease. On account of fibromyalg ia pain, suggested the addition of cymbalta. Side effect profile reviewed. Prescripti on sent. Breast reduction discussed. Follow up in March 2024. [id number] ROSE BASS MD [facility] [address] [place] [address] 10/28/2024 13:15:11 10/29/2024 09:41:27 Inflammatory polyarthropathy 746728694 M06.4 78- year-old with polyarthri tisSeroneg ative [...] toxicity. Follow-up 3 months Polymyalgi a rheumatica 20724751 M35.3 78-year-ol d female with chronic polymyalgi a rheumatica .Asymptoma tic. On combinatio n of prednisone and hydroxychl oroquine as detailed above. We have talked about Cliffordbrianra. She would rather hold off on it. Long-term drug therapy 544944758 Z79.899 Must follow-up with an eye examinatio n every year While taking the hydroxychl oroquine. On account of corticoste roid use, osteoporos is, osteonecro sis risk were reviewed. Weight gain diabetes also reviewed. Must follow with a bone density every 2 yearsTB and hep c test today. Fibromyalgia 129019860 M 80.7 Clinically stable. No complaints . Pains are well-contr olled. Continue with gabapentin 100 mg every 8 hours Follow-up in 3 months [id number] ROSE BASS MD [facility] [address] [place] [address] 01/27/2025 10:22:01 01/28/2025 04:37:03 Inflammatory polyarthropathy 202008032 M06.4 78- year-old with polyarthri tisSeroneg ative [...] toxicity. Follow-up 3 months Polymyalgi a rheumatica 68419730 M35.3 78-year-ol d female with chronic polymyalgi [...] hold off on it. Long-term drug therapy 977453555 Z79.899 Must follow-up with an eye examinatio n every year While taking the hydroxychl oroquine. On account of corticoste roid use, osteoporos is, osteonecro sis risk were reviewed. Weight gain diabetes also reviewed. Must follow with a bone density every 2 years Will repeat the labs on her visit in April. Fibromyalgia 671785418 M 79.7 Clinically stable. No complaints . [...] Name 07/31/2025 1 [place] Andry Culp [id number] Andry Culp 05/16/2024 2 [employer] Andry Culp [id number] Andry Culp 07/31/2025 2 [employer] (MEDICARE SUPPLEMENT) PLAN G Andry Culp [id number] Andry Culp Notes Date Note Type Note [...] headaches or jaw pain. ROSE BASS MD [address] [place] [address], [phone], [facility] 10/25/2023 10:45:26 01/21/2024 text/html ROS as noted [...] headaches or jaw pain. ROSE BASS MD [address] [place] [address], [phone], [facility] 01/21/2024 16:55:07 05/07/2024 text/html ROS as noted [...] headaches or jaw pain. ROSE BASS MD [address] [place] [address], [phone], [facility] 05/07/2024 16:46:44 10/28/2024 text/html ROS as noted in the HPI Visit today is being conducted via telehealth using both audio/video. The patient confirms that he/she is physically located in [place] at the time of this visit. Patient [...] headaches or jaw pain. ROSE BASS MD [facility] [place], [address], [facility] 10/28/2024 13:30:53 01/27/2025 text/html ROS as noted [...] pain. No vision changes. ROSE BASS MD [facility] [place], [address], [facility] 01/27/2025 11:01:52 OBGyn Episode No OBEpisode recorded.
--- OUTSIDE RECORDS SUMMARY | 2025-08-26 11:56 | XMS_ITS | Clinical Summary ---
Author Organization [facility] Address [address] [place] [address] Phone Care Team Providers Care Power Shovel Mechanic Name Role Phone Unavailable Primary Care Provider [...] B MEDICARE IN PART A AND [facility]
[2025-08-26 12:38] LABS: C-Reactive Protein 6.0 mg/L (0-4)
[2025-08-26 13:05] LABS: Thyroid Stimulating Hormone 0.32 uIU/mL (0.465-4.68)
[2025-08-26 13:24] LABS: Vitamin B12 747 pg/mL (239-931)
[2025-08-26 13:47] LABS: Folate > 20.00 ng/mL
[2025-08-26 16:21] LABS: RPR W/RFX Titers Nonreactive (Nonreactive)
[2025-08-28 09:25] LABS: Antinuclear Antibodies (ANA) Negative (Negative)
== END 2025-08-26 23:59 | disposition home or self-care (01) ==
LOC: LAB 11:20
PROVIDERS: PCP Family Medicine; Visit Provider Specialist
DX: E87.1 Hypo-osmolality and hyponatremia (principal); I10 Essential (primary) hypertension; I25.10 Atherosclerotic heart disease of native coronary artery without angina pectoris; R41.3 Other amnesia; G93.40 Encephalopathy, unspecified; E03.9 Hypothyroidism, unspecified
CPT/HCPCS: 36415; 82607; 82746; 84443; 85651; 86038; 86140; 86592

== ENCOUNTER 2025-09-02 11:22 | Outpatient (CLI) | payer MEDICARE, OTHER, SELFPAY ==
--- OUTSIDE RECORDS SUMMARY | 2025-09-02 11:27 | XMS_ITS | Encounter Summary ---
Author Organization Healthcare Address [address] [place] [address] Care Team Providers Care Manager Trade Name Role Phone Amparo Arrington MD Primary Care Provider [phone] Encounter Details Date Type Department Care Team (Late st Contact Info) Description 08/24/2025 Orders Only [facility] [address] [place] [address] Anita Luu Hyponatremia (Primary Dx); [...] place to sleep or slept in a fdc (including now)? No 07/01/2024 Utilities Answer Date [...] Description 10/23/2025 12:20 PM EST Office Visit [facility] [address] [place] [address] Vicente Rodrigez MD [address] [place] [phone] Scheduled Orders Name Type Priority Associated [...] documented as of this encounter Care Teams Manager Trade Relationship Specialty Start Date End Date Amparo Arrington MD [address] [place] [address] PCP - General 03/04/21 documented as of this encounter
--- OUTSIDE RECORDS SUMMARY | 2025-09-02 11:27 | XMS_ITS | Data Portability ---
Author Organization [facility] COREEN MontañoS [place] Address [address] [place] [address] Care Team Providers Care Opto Mechanical Technician Name Role Phone EMA CAMPOS Primary Care Provider ROSE BASS Stitcher Standard Machine Assessment Encounter Date Assessment Date Assessment LastModified [...] recorded. Lab rf (rheumatoid factor), serum 2023 [facility], [address] [place] [address], [phone], 11:20:43 ccp (cyclic citrullinat ed peptide) iga+igg, serum 2023 024 [facility], [address] [place] [address], [address], 4 16:52:40 ESR (erythrocyt e sedimentati on rate), blood 2023 024 [facility], [address] [place] [address], [address], 4 11:12:24 C reactive protein, QN, serum or plasma 2023 024 [facility], [address] [place] [address], [address], 4 11:20:45 Mycobacteri um tuberculosi s stimulated gamma interferon, qual, blood 2023 024 [facility], [address] [place] [address], [address], 4 02:43:42 hepatitis C Ab, serum 2023 024 [facility], [address] [place] [address], [address], 4 11:39:06 ESR (erythrocyt e sedimentati on rate), blood 2023 024 [facility], [address] [place] [address], [address], 4 11:13:45 C reactive protein, QN, serum or plasma 2023 024 [facility], [address] [place] [address], [address], 4 11:26:25 Referral None recorded. Procedures None recorded. Surgeries None recorded. Imaging None recorded. Medication Orders prednisone 5 mg tablet 2024 025 [facility] [address] [place], [address], 5 10:42:41 Cymbalta 30 mg capsule,del ayed release 2023 024 [facility] [address] [place], [address], 4 10:15:00 Depo-Medrol 80 mg/mL suspension for injection 2023 024 martagita [facility] [address] [place], [address], 4 10:45:28 Patient TargetsNo targets recorded. Patient InstructionsNo instructions recorded. Reason for Referral None Reported. Results Created Date Observation Date Name Description Value Unit Range Abnormal Flag Note LastModifiedBy Organization Detail LastModifiedTime 10/25/1910/25/2023 ESR, AUTOM ATED ESR, automated 7 mm 0-29 normal Not Available [facility] [address] [place] [address], [address], 10/25/2023 11:13:45 10/25/19 24 10/25/2023 C REACT KASANDRA PROTE IN C reactive protein 0.17 mg/dL 0.00-0 .49 normal Not Available [facility] [address] [place] [address], [address], 10/25/2023 11:26:25 05/07/20 24 05/07/2024 ESR, AUTOM ATED ESR, automated 12 mm 0-29 normal Not Available [facility] [address] [place] [address], [address], 05/07/2024 11:12:24 05/07/20 24 05/07/2024 RF SCREE N, QUANT . rf screen, quant. <10.0 [IU]/ mL 0.0-13 .9 normal Not Available [facility] [address] [place] [address], [address], 05/07/2024 11:20:43 05/07/20 24 05/07/2024 C REACT KASANDRA PROTE IN C reactive protein 0.17 mg/dL 0.00-0 .49 normal Not Available [facility] [address] [place] [address], [address], 05/07/2024 11:20:45 05/07/20 24 05/07/2024 HEPAT ITIS C AB SCR, REFLE X HCVQT hcab scr, reflex viral RNA qt NONREA CTIVE nonrea ctive normal Antib odies to HCV were not detec beth; does not exclu de the possi bilit y of expos ure to HCV. Not Available [facility] [address] [place] [address], [address], 05/07/2024 11:39:06 05/07/20 24 05/09/2024 ANTI- CCP anti-ccp <16 units normal Refer ence Range Negat kasandra: <20 Weak Posit kasandra: 20-39 Moder ate Posit kasandra: 40-59 Stron g Posit kasandra: >59 Not Available [facility] [address] [place] [address], [address], 05/09/2024 16:52:40 05/07/20 24 05/10/2024 QUANT IFERO N TB GOLD qtb gold NEGATI VE negati ve normal Negat kasandra test resul t. M. tuber culos is compl ex infec tion unlik erin. Not Available [facility] [place], [address], 05/15/2024 15:49:02 05/07/20 24 05/10/2024 QUANT IFERO N TB GOLD nil 0.01 IU/mL normal Not Available [facility] [place], [address], 05/15/2024 15:49:02 05/07/20 24 05/10/2024 QUANT IFERO N TB GOLD mitogen nil >10.00 IU/mL normal Not Available [facility] [place], [address], 05/15/2024 15:49:02 05/07/20 24 05/10/2024 QUANT IFERO N TB GOLD TB1 nil 0.00 IU/mL normal Not Available [facility] [address] [place], [address], 05/15/2024 15:49:02 05/07/20 24 05/10/2024 QUANT IFERO [...] refer to https ://ed ucati on.qu blayne [employer]. [employer]/f aq/FA Q204 (This link is being provi ded for infor uday cormier/ toi tamayo l purpo ses only. ) Not Available [facility] [address] [place], [address], 05/15/2024 15:49:02 Result Notes None recorded. Problems Name Problem SNOMED Code Status Onset Date Resolution Date Notes Provider Name and Address Organization Details Recorded Time Hyperuricemia 82176687 Active 2017 ARLENE MEI, [employer] [address] [place], [address], [facility] 8 15:44:58 Problem Notes None recorded. Procedures Surgical History Date Name Laterality Status Provider Name and Address Organization Details Recorded Time Remove tonsils and adenoids completed [facility] 12/19/2018 09:47:28 Removal of thyroid completed [facility] 12/19/2018 09:47:47 Imaging Results None recorded. Procedure Notes None recorded. Medical Equipment None Reported. Allergies Allergen ID Allergen Name Allergen Category Reaction Reaction Severity Criticality Documentation Date Start Date Code Code System Note Provider Name and Address Organization Details Recorded Time 928404 Substance with sulfonami de structure and antibacte rial mechanism of action (substanc e) medicatio n Not available Not available Not available 09/15/20162014 51130 8003 SNOMED Comme nt: Creat ed By: Rayna Gonzalez; Creat ed Date: 2014 10:04 :26 AM; Not Available Counts include 234 beds at the [facility] 6 09:13:41 [id number] codeine medicatio n Not available Not available Not available 09/15/20162014 2670 RxNorm Comme nt: Creat ed By: Rayna Gonzalez; Creat ed Date: 2014 10:03 :51 AM; Not Available Counts include 234 beds at the [facility] 6 09:37:20 Medications Name Sig Start [...] levothyr oxine; Dosage:1 ; refills: 0; Quantity :11698 mcg Not Available Not Available Not Available [...] Updated DateTime 4 167.64 cm 24.7 kg/m2 19664.6 3 g 16 /min 67 /min 96 % 96 % 152/90 mm[Hg] [facility] 10:07:20 Date Recorded Body height Body mass index (BMI) Body weight Provider Name and Address Organization Details Last Updated DateTime 10/28/2024 167.64 cm 24.7 kg/m2 20264.63 g [facility] 10/28/2024 13:15:40 Date Recorded Body height Body mass index (BMI) Body weight Respiratory rate Heart rate Oxygen saturation Oxygen saturation in Arterial blood by Pulse oximetry Systolic And Diastolic Provider Name and Address Organization Details Last Updated DateTime 4 167.64 cm 24.7 kg/m2 49227.6 3 g 16 /min 69 /min 96 % 96 % 120/80 mm[Hg] [facility] 4 10:42:58 Date Recorded Body height Respiratory rate Body mass index (BMI) Body weight Oxygen saturation Oxygen saturation in Arterial blood by Pulse oximetry Heart rate Systolic And Diastolic Provider Name and Address Organization Details Last Updated DateTime 5 167.64 cm 16 /min 24.7 kg/m2 08472.6 3 g 97 % 97 % 68 /min 126/82 mm[Hg] [facility] 5 10:34:11 Date Recorded Body height Body mass index (BMI) Body weight Respiratory rate Heart rate Oxygen saturation Oxygen saturation in Arterial blood by Pulse oximetry Systolic And Diastolic Provider Name and Address Organization Details Last Updated DateTime 4 167.64 cm 24.7 kg/m2 92842.6 3 g 16 /min 86 /min 97 % 97 % 122/80 mm[Hg] [facility] 4 09:59:55 Social History Question Answer Notes LastModified by Hyperoptic Details LastModified Time Tobacco Smoking Status Former Smoker January [facility] 10/26/2017 14:04:04 How Much Tobacco Do You Chew? None Information not available 06/19/2019 What Was The Date Of Your Most Recent Tobacco Screening? 01/27/2025 [email or web address] Information not available 01/27/2025 How Much Tobacco Do You Smoke? 1 PPD Information not available 06/19/2019 How Many Years Have You Smoked Tobacco? 40 Information not available 06/19/2019 Have You Recently Traveled Abroad? No Information not available 10/24/2022 Sex: Unknown Functional Status Question Answer Note LastModified by Organizat ion Details LastModified Time What is your level of alcohol consumption? None [email or web address] Information not available 12/19/2018 Do you or [...] ICD10 Code Diagnosis IMO Codes Diagnosis Note [id number] ARLENE MEI APRN [facility] [address] [place] [address] 10/26/2017 13:52:29 10/26/2017 14:49:45 Pain of multiple joints 33761482 M25.50 71 year old female is here [...] go over results. Anti-nucle ar factor detected 215690483 R76.8 As detailed above OPAL obtained in 2013 was 1:160 homogenous .Recently checked per PCP and was homogenous 1:320.Will obtain lupus panel today. [id number] ARLENE MEI APRN [facility] [address] [place] [address] 11/08/2017 10:21:14 11/12/2017 08:10:02 Hyperuricemia 34916790 E79.0 Hyperurice miaPatient reports episodes of heat [...] 3 months, to recheck uric acid level. [id number] ROSE BASS MD [facility] [address] [place] [address] 11/04/2018 10:30:43 11/07/2018 07:59:17 Inflammatory polyarthropathy 896435901 M06.4 very pleasant 72-year-ol d female with [...] she was comfortabl e with the plan. [id number] ROSE BASS [facility] [address] [place] [address] 12/19/2018 09:01:43 12/20/2018 08:50:39 Polymyalgia rheumatica 83832119 M35.3 clinically looks so much better. Active and passive range of motion. She has palpable pulses without any jaw tenderness or temporal tenderness . I would like her to maintain prednisone at 5 mg once a day. Inflammato ry polyarthropathy 133595509 M06.4 in terms of inflammato ry arthritis, [...] Her baseline eye examinatio n is stable. [id number] ROSE BASS MD RHE[facility]OL [address] [address] 06/19/2019 09:47:18 06/24/2019 08:38:26 Polymyalgia rheumatica 87327580 M35.3 chronic disease and under excellent control. In clinical remission. Excellent Range of motion. No physical limitation s noted. I would like her to maintain prednisone at 5 mg once a day. Inflammato ry polyarthropathy 020889811 M06.4 chronic polyarticu lar inflammato ry arthritis associated with PMR remains in clinical remission. I would like her to continue with hydroxychl oroquine at 200 mg once a day. [id number] ROSE BASS MD R[facility]UMATOL [facility] [address] [place] [address] 06/21/2020 07:59:24 06/21/2020 11:07:16 Polymyalgia rheumatica 43595203 M35.3 74-year-ol d female with chronic polymyalgi [...] headaches or vision changes. Inflammato ry polyarthropathy 548328636 M06.4 chronic polyarticu lar inflammato ry arthritis associated with PMR. fairly stable. maintain hydroxychl oroquine 200 mg twice a [id number] ROSE BASS MD R[facility]UMATOL [facility] [address] [place] [address] 09/29/2020 10:12:08 09/29/2020 10:38:53 Polymyalgia rheumatica 13231359 M35.3 74-year-ol d female with chronic polymyalgi [...] follow-up in 3 months Inflammato ry polyarthropathy 771016297 M06.4 associated inflammato ry arthritis. Symptomati marvin joint pains as detailed above. Medication s As described above combinatio n of hydroxychl oroquine and prednisone . Follow-up in 3 months. [id number] ROSE BASS MD R[facility]UMATOL [facility] [address] [place] [address] 12/29/2020 10:28:14 12/29/2020 11:52:19 Polymyalgia rheumatica 07414303 M35.3 74-year-ol d female with chronic polymyalgi [...] n once a year. Inflammato ry polyarthropathy 579298838 M06.4 Chronic and associated with polymyalgi a rheumatica . Currently clinically stable. Maintain the combinatio n of prednisone as well as hydroxychl oroquine as stated above. [id number] ROSE BASS MD [facility] [address] [place] [address] 04/29/2021 09:27:28 04/29/2021 10:15:19 Inflammatory polyarthropathy 968474437 M06.4 Chronic and associated with polymyalgi a rheumatica . has done well. Isabelle khan not able to load the prednisone dose and is currently on prednisone 10 mg alternatin g with 5 mg every other day. She also takes hydroxychl oroquine 200 mg twice a day. Must need to follow with eye examinatio n once a year Polymyalgi a rheumatica 30939539 M35.3 75-year-ol d female with chronic polymyalgi a rheumatica . Clinically stable on the current dose of prednisone as detailed above. No stigmata for giant cell arteritis. Repeat the ESR. Follow with eye examinatio n once a year. Long-term drug therapy 936646825 Z79.899 Of pain last follow-up on polymyalgi a rheumatica and inflammato ry arthritis. Bone density test needs to be done every 2 years. Maintain calcium and vitamin D on account of risk for osteoporos is on steroids. Also suggested to follow up with a bone density test with her primary care physician [id number] ROSE BASS MD R[facility]UMATOL [facility] [address] [place] [address] 11/02/2021 12:56:26 11/02/2021 13:19:32 Inflammatory polyarthropathy 905280677 M06.4 [id number] ar-old with polyarthri tis Chronic and stable. The current combinatio n of prednisone and hydroxychl oroquine is very helpful. Refills were given.Foll ow-up in 6 months Polymyalgi a rheumatica 20543567 M35.3 75-year-ol d female with chronic polymyalgi a rheumatica . Clinically stable on the current dose of prednisone 10 mg alternatin g with 5 mg every other day along with hydroxychl oroquine 200 mg twice a day. No stigmata for giant cell arteritis. Repeat the ESR. Follow with eye examinatio n once a year. Long-term drug therapy 667459837 Z79.899 Must follow-up with an eye examinatio n every year. Bone density test every 2 years. Maintain calcium vitamin D. Also suggested to follow up with a bone density test with her primary care physician [id number] ROSE BASS MD [facility] [address] [place] [address] 05/01/2022 08:17:48 05/01/2022 15:37:51 Inflammatory polyarthropathy 000585341 M06.4 76- year-old with polyarthri tis Seronegati [...] ow-up in 6 months Polymyalgi a rheumatica 53030820 M35.3 76-year-ol d female with chronic polymyalgi a rheumatica . Clinically stable. No proximal muscle pain or weakness reported.N o stigmata for giant cell arteritis. Last ESR 04/29/2021 9 mm/h Repeat the ESR. Follow with eye examinatio n once a year. Long-term drug therapy 025573345 Z79.899 Must follow-up with an eye examinatio n every year. Bone density test every 2 years. Maintain calcium vitamin D. She typically follows the bone density test with her PCP. She will get us a copy. [id number] ROSE BASS MD [facility] [address] [place] [address] 10/24/2022 13:59:01 10/25/2022 14:30:30 Inflammatory polyarthropathy 654833862 M06.4 76- year-old with polyarthri tisSeroneg ative [...] renal toxicity. Refills given Polymyalgi a rheumatica 30186184 M35.3 76-year-ol d female with chronic polymyalgi a rheumatica .From the PMR point of view looks stable.No proximal muscle pain or weakness reported.N o stigmata for giant cell arteritis. Last ESR 04/29/2021 9 mm/h Repeat ESR today Long-term drug therapy 760541685 Z79.899 Must follow-up with an eye examinatio n every year While taking the hydroxychl oroquine. On account of corticoste roid use, osteoporos is, osteonecro sis risk were reviewed. Weight gain diabetes also reviewed. Must follow with a bone density every 2 years [id number] ROSEROMMEL BASS MD [facility] [address] [place] [address] 04/03/2023 13:22:18 04/05/2023 04:49:45 Inflammatory polyarthropathy 012978618 M06.4 77- year-old with polyarthri tisSeroneg ative [...] toxicity. Follow-up 6 months Polymyalgi a rheumatica 02341338 M35.3 77-year-ol d female with chronic polymyalgi [...] prednisone resulted in flare. Long-term drug therapy 910652632 Z79.899 Must follow-up with an eye examinatio n every year While taking the hydroxychl oroquine. On account of corticoste roid use, osteoporos is, osteonecro sis risk were reviewed. Weight gain diabetes also reviewed. Must follow with a bone density every 2 years [id number] ROSE BASS MD RHEUMATOL [facility] [address] [place] [address] 10/25/2023 09:56:13 10/26/2023 15:37:58 Inflammatory polyarthropathy 334816985 M06.4 77- year-old with polyarthri tisSeroneg ative [...] toxicity. Follow-up 3 months Polymyalgi a rheumatica 50572836 M35.3 77-year-ol d female with chronic polymyalgi [...] her current treatment plan. Long-term drug therapy 973694938 Z79.899 Must follow-up with an eye examinatio n every year While taking the hydroxychl oroquine. On account of corticoste roid use, osteoporos is, osteonecro sis risk were reviewed. Weight gain diabetes also reviewed. Must follow with a bone density every 2 years [id number] ROSE BASS MD [facility] [address] [place] [address] 01/21/2024 10:13:42 01/22/2024 04:18:34 Inflammatory polyarthropathy 135622838 M06.4 78- year-old with polyarthri tisSeroneg ative [...] toxicity. Follow-up 3 months Polymyalgi a rheumatica 02954985 M35.3 78-year-ol d female with chronic polymyalgi [...] CRP 10/25/2023 is normal Long-term drug therapy 660738680 Z79.899 Must follow-up with an eye examinatio n every year While taking the hydroxychl oroquine. On account of corticoste roid use, osteoporos is, osteonecro sis risk were reviewed. Weight gain diabetes also reviewed. Must follow with a bone density every 2 years Fibromyalgia 025417954 M 79.7 Symptomati c with diffuse fibromyalg ia tender points. Discussed the diagnosis of fibromyalg ia. Educated about the disease. On account of fibromyalg ia pain, suggested the addition of cymbalta. Side effect profile reviewed. Prescripti on sent. Breast reduction discussed. Follow up in March 2024. [id number] ROSE BASS MD [facility]OL [facility] [address] [place] [address] 05/07/2024 09:49:06 05/08/2024 04:38:13 Inflammatory polyarthropathy 984572074 M06.4 78- year-old with polyarthri tisSeroneg ative [...] toxicity. Follow-up 3 months Polymyalgi a rheumatica 61614140 M35.3 78-year-ol d female with chronic polymyalgi [...] ESR and CRP today. Long-term drug therapy 293351296 Z79.899 Must follow-up with an eye examinatio n every year While taking the hydroxychl oroquine. On account of corticoste roid use, osteoporos is, osteonecro sis risk were reviewed. Weight gain diabetes also reviewed. Must follow with a bone density every 2 yearsTB and hep c test today. Fibromyalgia 519539256 M 80.7 Symptomati c with diffuse fibromyalg ia tender points. Discussed the diagnosis of fibromyalg ia. Educated about the disease. On account of fibromyalg ia pain, suggested the addition of cymbalta. Side effect profile reviewed. Prescripti on sent. Breast reduction discussed. Follow up in March 2024. [id number] ORSE BASS MD [facility] [address] [place] [address] 10/28/2024 13:15:11 10/29/2024 09:41:27 Inflammatory polyarthropathy 095816635 M06.4 78- year-old with polyarthri tisSeroneg ative [...] toxicity. Follow-up 3 months Polymyalgi a rheumatica 92354944 M35.3 78-year-ol d female with chronic polymyalgi a rheumatica .Asymptoma tic. On combinatio n of prednisone and hydroxychl oroquine as detailed above. We have talked about Cliffordbrianra. She would rather hold off on it. Long-term drug therapy 124646745 Z79.899 Must follow-up with an eye examinatio n every year While taking the hydroxychl oroquine. On account of corticoste roid use, osteoporos is, osteonecro sis risk were reviewed. Weight gain diabetes also reviewed. Must follow with a bone density every 2 yearsTB and hep c test today. Fibromyalgia 852438021 M 80.7 Clinically stable. No complaints . Pains are well-contr olled. Continue with gabapentin 100 mg every 8 hours Follow-up in 3 months [id number] ROSE BASS MD [facility] [address] [place] [address] 01/27/2025 10:22:01 01/28/2025 04:37:03 Inflammatory polyarthropathy 917118708 M06.4 78- year-old with polyarthri tisSeroneg ative [...] toxicity. Follow-up 3 months Polymyalgi a rheumatica 34570197 M35.3 78-year-ol d female with chronic polymyalgi [...] hold off on it. Long-term drug therapy 984702511 Z79.899 Must follow-up with an eye examinatio n every year While taking the hydroxychl oroquine. On account of corticoste roid use, osteoporos is, osteonecro sis risk were reviewed. Weight gain diabetes also reviewed. Must follow with a bone density every 2 years Will repeat the labs on her visit in April. Fibromyalgia 802179246 M [age] Clinically stable. No complaints . [...] Name 07/31/2025 1 [place] Andry Culp [id number] Andry Culp 05/16/2024 2 [employer] Andry Culp [id number] Andry Culp 07/31/2025 2 [employer] (MEDICARE SUPPLEMENT) PLAN G Andry Culp [id number] Andry Culp Notes Date Note Type Note [...] headaches or jaw pain. ROSE BASS MD [address] [place] [address], [phone], [facility] 10/25/2023 10:45:26 01/21/2024 text/html ROS as noted [...] headaches or jaw pain. ROSE BASS MD [address] [place] [address], [phone], [facility] 01/21/2024 16:55:07 05/07/2024 text/html ROS as noted [...] headaches or jaw pain. ROSE BASS MD [address] [place] [address], [phone], [facility] 05/07/2024 16:46:44 10/28/2024 text/html ROS as noted in the HPI Visit today is being conducted via telehealth using both audio/video. The patient confirms that he/she is physically located in [place] at the time of this visit. Patient [...] headaches or jaw pain. ROSE BASS MD [facility] [place], [address], [facility] 10/28/2024 13:30:53 01/27/2025 text/html ROS as noted [...] pain. No vision changes. ROSE BASS MD [facility] [place], [address], [facility] 01/27/2025 11:01:52 OBGyn Episode No OBEpisode recorded.
--- OUTSIDE RECORDS SUMMARY | 2025-09-02 11:27 | XMS_ITS | Clinical Summary ---
Author Organization [facility] Address [address] [place] [address] Care Team Providers Care Sales Consultant Insurance Name Role Phone Wyatt Torres MD Primary Care Provider [phone]- [phone] Source Comments This information has been disclosed [...] therelease of HIV test results or diagnoses. [id number] Allergies Active Allergy Reactions Criticality Noted [...] A [employer] B [employer] Care Teams Sales Consultant Insurance Relationship Specialty Start Date End Date Wyatt Torres MD [address] [place] [address] [place] [id number] PCP - General Family Medicine 04/09/23
--- OUTSIDE RECORDS SUMMARY | 2025-09-02 11:27 | XMS_ITS | Clinical Summary ---
Author Organization [facility] Address [address] [place] [address] Care Team Providers Care Furniture Packer Name Role Phone Wyatt Torres MD Primary [...] alcohol) a glass of wine at [facility] Comments Unknown Sex and Gender Information Value [...] 200 mg/dL 01/15/2025 12:23 AM EDT [facility] Triglycerides 89 0 - 150 mg/dL 01/15/2025 12:23 AM EDT [facility] HDL Cholesterol 99(H) 40 - 60 mg/dL 01/15/2025 12:23 AM EDT [facility] LDL Cholesterol 75 0 - 100 mg/dL 01/15/2025 12:23 AM EDT [facility] VLDL Cholesterol 16 5 - 40 mg/dL 01/15/2025 12:23 AM EDT [facility] LDL/HDL Ratio 0.74 01/15/2025 12:23 AM EDT [facility] Blood Venipuncture / Unknown 01/14/2025 10:25 AM EDT 01/14/2025 10:26 AM EDT Narrative [facility] - 01/15/2025 12:23 AM EDT Cholesterol [...] LAB BLOOD ORDERABLES Final Resul t [facility]
[address] [place] [address], from Last 3 Months or Most Recently Relevant to Health Maintenance Insurance MEDICARE A & B [employer] [facility] [place] [id number] Care Teams Furniture Packer Relationship Specialty Start Date End Date Wyatt Torres MD [address] [facility] [address] [facility] [address] [place] [address] PCP - General Family Medicine 12/26/24
--- OUTSIDE RECORDS SUMMARY | 2025-09-02 11:27 | XMS_ITS | Clinical Summary ---
Author Organization [facility] Address [address] [place] [address] Phone Care Team Providers Care Ice Cream Dispenser Name Role Phone Unavailable Primary Care Provider [...] B MEDICARE IN PART A AND B [facility]
--- OUTSIDE RECORDS SUMMARY | 2025-09-02 11:27 | XMS_ITS | Clinical Summary ---
Author Organization Healthcare Address [address] [place] [address] Care Team Providers Care Kindergartner Name Role Phone Amparo Arrington MD Primary Care Provider [phone] Allergies Active Allergy Reactions Criticality Noted Date [...] PMF's reviewed and stable PT/OT as tolerated [facility] Acquired hypothyroidism 06/30/2024 Overview (06/30/2024): Continue home levothyroxine Complicates all aspects of care Coronary artery disease invo lving [place] coronary artery of [place] heart without angina pectoris 06/30/2024 Overview (06/30/2024): [...] Department Care Team Description 08/24/2025 Orders Only [facility] [address] [place] [address] Anita Luu Hyponatremia (Primary Dx); Vitamin D insufficiency 06/19/2025 Orders Only [facility] [address] [address] Anita Luu Hyponatremia (Primary Dx); Vitamin [...] place to sleep or slept in a [facility] (including now)? No 07/01/2024 Utilities Answer Date [...] Description 10/23/2025 12:20 PM EST Office Visit [facility] [address] [place] [phone] Vicente Rodrigez MD [address] [place] [phone] Health Maintenance Due Date Last Done Comments [facility]-Bone Density Scan 1945 [facility]-Depression Screening 1945 [facility]-Medicare Annual Wellness (AWV) 1945 [facility]-Infant/Child/Adol SDOH Screenings 01/01/1947 [facility]- SDOH Screenings 1964 [facility]-Adult SDOH Screenings 1964 [facility]-Zoster Vaccines (1 of 2) 1965 [facility]-RSV Vaccine: 60+ Years or (1 - 1-dose 75+ series) 2021 [facility]-[id number]-56 Vaccine (9 - Moderna risk 2023- season) [...] ORDERABLES Final Re sult [facility] [address] [place] [address] from Last 3 Months or Most Recently Relevant to Health Maintenance Insurance MEDICARE [facility] [place] [id number] Advance Directives * Full Code (Latest Code Status on File) Date Activated Date Inactivated Comments 07/04/2024 1:04 PM * Full Code Date Activated Date Inactivated Comments 06/30/2024 8:06 AM 07/04/2024 1:04 PM Question Answer Comments Patient has decision-making capacity? Yes Care Teams Kindergartner Relationship Specialty Start Date End Date Amparo Arrington MD [address] [facility] [address] [place] [address] PCP - General 03/04/21
--- OUTSIDE RECORDS SUMMARY | 2025-09-02 11:27 | XMS_ITS | Encounter Summary ---
[facility] Address [address] [place] [address] Care Team Providers Care Roofing Apprentice Name Role Phone Wyatt Torres MD Primary Care Provider Encounter Details Date Type Department Care Team (Late st Contact Info) Description 01/15/2025 Results Follow-Up [facility] [address] [facility] [place] [phone] Jennyfer Porras APRN [address] [facility] [address] [place] [address] Social History Tobacco Use Types Packs/Day Years Used Date Smoking Tobacco: Former Cigarettes Smokeless Tobacco: Never Alcohol Use Standard Drinks/Week Comments Yes 0 (1 standard drink = 0.6 oz pur e alcohol) a glass of wine at [facility] Comments Unknown Sex and Gender Information Value Date Recorded Sex Assigned at Not on file Legal Sex Female 11:41 AM EDT Gender Identity Not on file Sexual Orientation Not on file documented as of this encounter Plan of Treatment Not on file documented as of this encounter Visit Diagnoses Not on filedocumented in this encounter Care Teams Roofing Apprentice Relationship Specialty Start Date End Date Wyatt Torres MD [address] [facility] [address] [place] [address] PCP - General Family Medicine 12/26/24 documented as of this encounter
[2025-09-02 12:56] LABS: Hematocrit 35.5 % (37.0-47.0); Hemoglobin 12.3 g/dL (12.2-16.2); Immature Granulocytes % 0.7 %; Mean Corpuscular HGB Conc 34.6 g/dL (31.8-35.4); Mean Corpuscular Hemoglobin 33.2 pg (27.0-31.2); Mean Corpuscular Volume 95.7 fl (81-99); Nucleated Red Blood Cells % 0 %; Platelet Count 312 K/mm3 (142-424); Red Blood Count 3.71 M/mm3 (4.20-5.40); Red Cell Distribution Width-SD 44.6 fL; White Blood Count 7.2 K/mm3 (4.8-10.8)
[2025-09-02 13:22] LABS: Alanine Aminotransferase 13 U/L (12-78); Albumin Level 3.8 g/dl (3.5-5.0); Albumin/Globulin Ratio 1.6 (1.1-1.8); Alkaline Phosphatase 93 U/L (38-126); Anion Gap 10.6 mEq/L (5-15); Aspartate Amino Transferase 29 U/L (14-36); Bilirubin,Direct 0.1 mg/dl (0.0-0.4); Bilirubin,Indirect 0.4 mg/dL (0.0-0.9); Bilirubin,Total 0.5 mg/dl (0.2-1.3); Bilirubin,Unconjugated 0.4 mg/dL (0.0-1.1); Blood Urea Nitrogen 12 mg/dl (7-17); Calcium 11.6 mg/dl (8.4-10.2); Carbon Dioxide 24 mmol/L (22.0-30.0); Chloride 91 mmol/L (98-107); Cholesterol 130 mg/dl (140-200); Creatinine,Serum 1.00 mg/dl (0.52-1.04); Estimated Glomerular Filt Rate 54 ml/min (>60); GFR (African American) 65 ML/MIN (>60); Globulin 2.4 g/dL (1.3-3.2); Glucose 91 mg/dl (74-100); HDL Cholesterol 46 mg/dl (40-60); Magnesium 1.1 mg/dl (1.6-2.3); Potassium 4.6 mmoL/L (3.5-5.1); Sodium 121 mmol/L (136-145); Total Protein,Serum 6.2 g/dl (6.3-8.2); Triglycerides 142 mg/dl (30-150)
[2025-09-02 13:39] LABS: Free T4 (Free Thyroxine) 1.78 ng/dl (0.78-2.19)
[2025-09-02 14:18] LABS: Thyroid Stimulating Hormone 0.73 uIU/mL (0.465-4.68)
== END 2025-09-02 23:59 | disposition home or self-care (01) ==
LOC: LAB 11:24
PROVIDERS: PCP Family Medicine; Visit Provider Physician Assistant
DX: I34.0 Nonrheumatic mitral (valve) insufficiency (principal); I11.0 Hypertensive heart disease with heart failure; I50.9 Heart failure, unspecified; I25.10 Atherosclerotic heart disease of native coronary artery without angina pectoris; E03.9 Hypothyroidism, unspecified
CPT/HCPCS: 36415; 80053; 80061; 82248; 83735; 84439; 84443; 85025

== ENCOUNTER 2025-09-16 07:50 | Outpatient (CLI) | payer MEDICARE, OTHER, SELFPAY ==
--- OUTSIDE RECORDS SUMMARY | 2025-05-07 10:45 | XMS_ITS ---
Author Organization [facility] Address [address] [place] [phone] Care Team Providers Care Air Liaison And Special Staff Name Role Phone Raul Torres Primary Care [...] Encounter Location Date Provider Diagnosis [facility] [address] [place] [phone] 05/07/2025 Raul Torres Inflammatory polyarthropathy M06.4 Assessments [...] ge:79 Y S ex:Female Date:05/07/2025 Address:[address], [place], [id number] Subjective: * Chief Complaints: * 1 . Cortisone shot. * HPI: R heumatology: She returns with a flare of joint pain in multiple joints, specifically her hands, elbows, shoulders, hips, and knees. She continues on daily prednisone and Plaquenil per her patient access registrar. * ROS: D ERMATOLOGY: no R jodi. n o H bere. G ASTROENTEROLOGY: Nausea y es. n o V omiting. n o D iarrhea.? U ROLOGY: no D ifficulty urinating. n o B lood in urine. * Medical History: h yperlipidemia-followed by Dr. Arrington, Hypertension, Hypothyroidism/goiter, Kidney stones, Allergic rhinitis, ASCVD: [place] - 09/2013-followed by Dr. Arrington q 6 months, Cataracts, Hyperuricemia, Inflammatory arthritis - Dr. Cheng, polymyalgia rheumatica - Dr. Cheng, Moderna Covid vaccine x2 Oct/Nov 2020. * Surgical History: T hyroidectomy/Goiter removal 1999, Back 2001, Total Hysterectomy 1992, Tonsillectomy child, Cardiac Stent Placed-[facility]-Dr Arrington. Dr. Santo 10/19/2013, Cataract 10/2017. * Hospitalization/Major Diagno stic Procedure: k idney stones 1992, Heart Attack- [place] 09/2013, Facial Pain, Sinus Blockage- [facility] 04/24/2018, Itching, Swelling in Hands- [facility] 10/21/2018, Multiple rib and pelvic fractures; hyponatremia; rheumatoid arthritis; ASCVD- 06/30-, Dehydration, Failure to Thrive, Acute Urinary Retention- [facility] 07/14-, H : fall with multiple FX [...] on, J1010 Inj, methylpred acetate 1 mg, 40474 ADMINISTRATION OF INJECTION * Follow Up: p rn * Images: Billing Information: * Visit Code: 66382 Office Visit, Est Pt., Level 3. Modifiers: 25 * Procedure Codes: G2211 Complex e/m visit add on. J1010 Inj, methylpred acetate 1 mg. 90230 ADMINISTRATION OF INJECTION. * Electronic signature of Raul Torres MD on 09/16/2025 at 08:01 AM EST Sign off status: Pending * Provider: Raul Torres M.D. Date: 0 05/07/2025 Generated for Jerry panda/Kerwin/Arthur on: 11/16/2024 08:01 AM EST History and Physical Notes * HPI (History of Present Illness) Category Sub-Category Detail Notes Category Not es Rheumatology She returns wit h a flare of joint pain in multiple joints, specifically her hands, elbows, shoulders, hips, and knees. She continues on daily prednisone and Plaquenil per her patient access registrar. Examination Category Sub-Category Detail Notes Category Not es General Examination Heart: RSR Lungs: clear to auscultatio n Extremities: Chronic deformity wi th mild swelling of the joints of both hands. General Appearance: She ambulates with a walker. Affect is a bit more subdued
--- OUTSIDE RECORDS SUMMARY | 2025-05-19 05:00 | XMS_ITS ---
Author Organization [facility] Address [address] [facility] [address] [place] [id number] Care Team Providers Care Biology Research Assistant Name Role Phone Raul Torres Primary Care Provider [phone] Allergies Allergen (clinical drug ingredient) Drug/Non Drug [...] 102 Performing Lab: Notes/Report: Test performed by [facility] , [address], [place] [address] Gilmer Lowe MD, Veterans Service Officer CLIA: [id number] Sodium 122 135-145 mmol/L Potassium 4.2 3.5-5.3 [...] [address] [place] [id number] 05/19/2025 Raul Torres Hyponatremia E87.1 ; Muscle weakness M62.81 and BMI 23.0-23.9, adult Z68.23 Assessments Encounter Date Diagnosis (ICD Code) Assessment Notes Treatment Notes Treatment Clinical Notes Section Notes 05/19/2025 Hyponatremia (ICD-10 - E87.1) 05/19/2025 Muscle weakness (ICD-10 - M62.81) 05/19/2025 BMI 23.0-23.9, adult (ICD-10 - Z68.23) Plan Of Treatment Next Appt Details Follow Up: 2 Months, Reason: Progress Notes * KWASI HUYNHDOB: [birth year] (79 yo F)Acc No.[id number]:05/19/2025 Progress Notes Patient: KWASI PANIAGUA Provider: Raul Torres M.D. :1945 A ge:79 Y S ex:Female Date:05/19/2025 Address:[address] [facility], [place], [id number] Subjective: * Chief Complaints: * 1 . [...] Hypertension, Hypothyroidism/goiter, Kidney stones, Allergic rhinitis, ASCVD: [place] - 09/2013-followed by Dr. Arrington q 6 months, Cataracts, Hyperuricemia, Inflammatory arthritis - Dr. Cheng, polymyalgia rheumatica - Dr. Cheng, Moderna Covid vaccine x2 Oct/Nov 2020. * Surgical History: T hyroidectomy/Goiter removal 1999, Back 2001, Total Hysterectomy 1992, Tonsillectomy child, Cardiac Stent Placed-[facility]-Dr Arrington. Dr. Santo 10/19/2013, Cataract 10/2017. * Hospitalization/Major Diagno stic Procedure: k idney stones 1992, Heart Attack- [place] 09/2013, Facial Pain, Sinus Blockage- [facility] 04/24/2018, Itching, Swelling in Hands- [facility] 10/21/2018, Multiple rib and pelvic fractures; hyponatremia; rheumatoid arthritis; ASCVD- 06/30-, Dehydration, Failure to Thrive, Acute Urinary Retention- [facility] 07/14-, [facility] : fall with multiple FX ribs [...] uscle weakness - M62.81 3 . B [place] 23.0-23.9, adult - Z68.23 Plan: * Treatment: [...] * Images: Billing Information: * Visit Code: 12249 Office Visit, Est Pt., Level 3. * Procedure Codes: G2211 Complex e/m visit add on. 1036F TOBACCO NON-USER. G8420 BMI<30 AND >=22 CALC & DOCU. G8783 BP SCR PRFRM RCMDD DEFIND SCR INTVL. G8752 MOST RECENT SYSTOLIC BP < 140MM HG. G8754 MOST RECENT DIASTOLIC BP < 90MM HG. * Electronic signature of Raul Torres MD on 09/16/2025 at 08:00 AM EST Sign off status: Pending * Provider: Raul Torres M.D. Date: 0 05/19/2025 Generated for Jerry panda/Kerwin/Arthur on: 11/16/2024 08:00 AM EST History and Physical Notes * [...]
--- OUTSIDE RECORDS SUMMARY | 2025-05-26 09:45 | XMS_ITS ---
Author Organization [facility] Address [address] [place] [phone] Care Team Providers Care Network Operations Center Engineer Name Role Phone Raul Torres Primary Care [...] Reason For Referral Reason Dr. Lee at [facility] for hyponatremia/ possible adrenal insufficiency Diagnosis 1 Hyponatremia (E87.1) Referral Organization Jared Referring Provider First Name Raul Lopez Referring Provider Last Name Melissa Referring Provider [facility] ctice Referred Provider Endocrinology, . Referred Provider Specialty Endocrinolog y General Notes Keira Burger 2024 10:04:16 AM > faxed to [facility] Endo Referral Priority Routine Reason memory loss/ confusi on Diagnosis 1 Memory loss (R41.3) Referral Organization Jared Referring Provider First Name Raul Lopez Referring Provider Last Name Melissa Referring Provider [facility] ctice Referred Provider Radha Ignacio Referred Provider Specialty Neurology General Notes Keira Burger 2024 09:55:39 AM > faxed to [facility] Neurology, Keira Burger 05/29/2025 10:50:10 AM [...] W/U Status Risk Notes Problem Memory loss (05444075) Memory loss (R41.3) Active confirmed Vital Signs Blood pressure systolic 110 mm Hg 05/26/20 25 Blood pressure diastolic 76 mm Hg 025 Heart Rate 72 /min 05/26/2025 Height 65 in 05/26/2025 Weight 146.2 lbs 05/26/2025 BMI 24.33 kg/m2 05/26/2025 Encounters Encounter Location Date Provider Diagnosis [facility] [address] [place] [phone] 05/26/2025 Raul Torres Hyponatremia E87.1 ; Memory loss R41.3 and BMI 24.0-24.9, adult Z68.24 Assessments Encounter Date Diagnosis (ICD Code) Assessment Notes Treatment Notes Treatment Clinical Notes Section Notes 05/26/2025 Hyponatremia (ICD-10 - E87.1) 05/26/2025 Memory loss (ICD-10 - R41.3) 05/26/2025 BMI 24.0-24.9, adult (ICD-10 - Z68.24) Plan Of Treatment Referrals Referral Date Details 05/26/2025 05/26/2025, Dr. Sophie pineda at [facility] for hyponatremia/ possible adrenal insufficiency, . Endocrinology 05/26/2025 05/26/2025, memory l oss/ confusion, Radha Ignacio Next Appt Details Follow Up: after consultatio n, Reason: Progress Notes * ANDRY HUYNHDOB: 7 (79 yo F)Acc No.[id number]:05/26/2025 Progress Notes Patient: ANDRY PANIAGUA Provider: Raul Torres M.D. :1945 A ge:79 Y S ex:Female Date:05/26/2025 Address:[address] [place] [address], [place], [id number] Subjective: * Chief Complaints: * 1 . [...] Procedure: k idney stones 1992, Heart Attack- [place] 09/2013, Facial Pain, Sinus Blockage- [facility] ER 04/24/2018, Itching, Swelling in Hands- [facility] ER 10/21/2018, Multiple rib and pelvic fractures; hyponatremia; rheumatoid arthritis; ASCVD- 06/30-, Dehydration, Failure to Thrive, Acute Urinary Retention- [facility] 07/14-, [facility] : fall with multiple FX ribs [...] M yvette loss - R41.3 ?3. B [place] 24.0-24.9, adult - Z68.24 Plan: * Treatment: [...] * Images: Billing Information: * Visit Code: 87636 Office Visit, Est Pt., Level 3. * [...] 05/26/2025 Generated for Jerry panda/Kerwin/Sonnysmitting on: 1 11/16/2024 08:00 AM EST History and Physical [...] Torres Endocrinology, . Dr. Edy matos at [facility] for hyponatremia/ possible adrenal insufficiency 05/26/2025 Raul Torres Maria memory los s/ confusion
--- OUTSIDE RECORDS SUMMARY | 2025-05-28 03:20 | XMS_ITS ---
Author Organization [facility] Address 1210 [facility] [address] [place], [place] [phone] Care Team Providers Care Automobile Mechanic Assistant Name Role Phone Raul Torres Primary [...] Status Risk Notes Problem Altered mental status (541293946) Altered mental state (R41.82) Active confirmed Encounters Encounter Location Date Provider Diagnosis [facility] [address] [place] [phone] 05/28/2025 Raul Torres Altered mental state R41.82 Assessments Encounter Date Diagnosis (ICD Code) Assessment Notes Treatment Notes Treatment Clinical Notes Section Notes 05/28/2025 Altered mental state (ICD-10 - R41.82) Plan Of Treatment No Information Progress Notes * KWASI HYUNHDOB: 7 (79 yo F)Acc No.[id number]:05/28/2025 Patient: KWASI PANIAGUA Provider: Raul Torres M.D. :1945 A ge:79 Y S ex:Female Date:05/28/2025 Address:[address], [id number] Subjective: * Chief Complaints: * 1 . [...] Information: * Visit Code: * Procedure Codes: 26522 Urinalysis, no micro. * Electronic signature of Raul Torres MD on 09/16/2025 at 08:01 AM EST Sign off status: Pending * Provider: Raul Torres M.D. Date: 0 05/28/2025 Generated for Jerry panda/Kerwin/Sonnysmitting on: 11/16/2024 08:01 AM EST
--- OUTSIDE RECORDS SUMMARY | 2025-06-16 11:30 | XMS_ITS ---
Author Organization [facility] Address [address] [facility] [address] [place] [id number] Care Team Providers Care Rodent Exterminator Name Role Phone Raul Torres Primary Care [...] 06/16/2025 Encounters Encounter Location Date Provider Diagnosis [facility] [address] [facility] [address] [place] [address], [place] [phone] 06/16/2025 Raul Torres Rheumatoid arthritis M06.9 ; [...] mg/ml 06/16/2025 1 mL Progress Notes * ANDRY HUYNHDOB: 7 (79 yo F)Acc No.[id number]:06/16/2025 Progress Notes Patient: ANDRY PANIAGUA Provider: Raul Torres M.D. :1945 A ge:79 Y S ex:Female Date:06/16/2025 Address:[address], [place], [phone] Subjective: * Chief Complaints: * 1 . [...] Hypertension, Hypothyroidism/goiter, Kidney stones, Allergic rhinitis, ASCVD: [place] - 09/2013-followed by Dr. Arrington q 6 months, Cataracts, Hyperuricemia, Inflammatory arthritis - Dr. Cheng, polymyalgia rheumatica - Dr. Cheng, Moderna Covid vaccine x2 Oct/Nov 2020. * Surgical History: T hyroidectomy/Goiter removal 1999, Back 2001, Total Hysterectomy 1992, Tonsillectomy child, Cardiac Stent Placed-[facility]-Dr Arrington. Dr. Santo 10/19/2013, Cataract 10/2017. * Hospitalization/Major Diagno stic Procedure: k idney stones 1992, Heart Attack- [place] 09/2013, Facial Pain, Sinus Blockage- [facility] ER 04/24/2018, Itching, Swelling in Hands- [facility] ER 10/21/2018, Multiple rib and pelvic fractures; hyponatremia; rheumatoid arthritis; ASCVD- 06/30-, Dehydration, Failure to Thrive, Acute Urinary Retention- [facility] 07/14-, H : fall with multiple [...] on, J1010 Inj, methylpred acetate 1 mg, 41151 ADMINISTRATION OF INJECTION * Follow Up: 2 Months * Images: Billing Information: * Visit Code: 80508 Office Visit, Est Pt., Level 3. Modifiers: 25 * Procedure Codes: G2211 Complex e/m visit add on. J1010 Inj, methylpred acetate 1 mg. 63490 ADMINISTRATION OF INJECTION. * Electronic signature of Raul Torres MD on 09/16/2025 at 08:01 AM EST Sign off status: Pending * Provider: Raul Torres M.D. Date: 0 06/16/2025 Generated for Jerry panda/Kerwin/Adrianitting on: 11/16/2024 08:01 AM EST History and Physical Notes * Examination Category Sub-Category Detail Notes Category Not es General Examination Heart: RSR Lungs: clear to auscultatio n Extremities: 1+ pedal and ankle e stephanie bilaterally. General Appearance: NAD
--- OUTSIDE RECORDS SUMMARY | 2025-07-15 06:25 | XMS_ITS ---
Author Organization [facility] Address [address] [place] [phone] Care Team Providers Care Industrial Design Intern Name Role Phone Raul Torres Primary Care Provider [phone] REASON FOR VISIT flu shot Medications Medication [...] Administered Encounters Encounter Location Date Provider Diagnosis [facility] [address] [facility] [address] [place] [id number] 07/15/2025 Raul Torres Encounter for immunization Z23 Assessments Encounter Date Diagnosis (ICD Code) Assessment Notes Treatment Notes Treatment Clinical Notes Section Notes 07/15/2025 Encounter for immunization (ICD-10 - Z23) Plan Of Treatment No Information Progress Notes * LINO KWASIDOB: 7 (79 yo F)Acc No.[id number]:07/15/2025 Patient: KWASI PANIAGUA Provider: Raul Torres M.D. :1945 A ge:79 Y S ex:Female Date:07/15/2025 Address:[address] [place] [address], [place], [phone] Subjective: * Chief Complaints: * 1 [...] of Raul Torres MD on 09/16/2025 at 07:57 AM EST Sign off status: Pending * Provider: Raul Torres M.D. Date: 0 07/15/2025 Generated for Jerry panda/Kerwin/Arthur on: 11/16/2024 07:57 AM EST
--- OUTSIDE RECORDS SUMMARY | 2025-07-21 05:45 | XMS_ITS ---
Author Organization Jared Address [address] [facility] [address] [place] [id number] Care Team Providers Care Title Insurance Agent Name Role Phone Raul Torres Primary Care Provider [phone] REASON FOR VISIT foot still swelling Encounters Encounter Location Date Provider Diagnosis [facility] [address] [place] [phone] 07/21/2025 Raul Torres Plan Of Treatment No Information Progress Notes * KWASI HUYNHDOB: 7 (79 yo F)Acc No.[id number]:07/21/2025 Progress Notes Patient: KWASI PANIAGUA Provider: Raul Torres M.D. :1945 A ge:79 Y S ex:Female Date:07/21/2025 Address:[address], [place], [id number] Subjective: * Chief Complaints: * 1 . Foot still swelling. * Medical History: Objective: * Vitals: Assessment: Plan: * Treatment: * Images: Billing Information: * Visit Code: * Procedure Codes: * Electronic signature of Raul Torres MD on 09/16/2025 at 07:57 AM EST Sign off status: Pending * Provider: Raul Torres M.D. Date: 07/21/2025 Generated for Jerry panda/Kerwin/Arthur on: 11/16/2024 07:57 AM EST
--- OUTSIDE RECORDS SUMMARY | 2025-08-04 09:30 | XMS_ITS ---
Author Organization [facility] Address [address] [place] [id number] Care Team Providers Care Freight Claim Investigator Name Role Phone Raul Torres Primary Care Provider REASON FOR VISIT H F/U Discharge Encounters Encounter Location Date Provider Diagnosis [facility] [address] [place] [id number] 08/04/2025 Rual Torres Plan Of Treatment No Information Progress Notes * KWASI HUYNHDOB: 7 (79 yo F)Acc No.[id number]:08/04/2025 Patient: KWASI PANIAGUA Provider: Raul Torres M.D. :1945 A ge:79 Y S ex:Female Date:08/04/2025 Address:[address] [place], [place], [id number] Subjective: * Chief Complaints: * 1 . H F/U Discharge. * Medical History: Objective: * Vitals: Assessment: Plan: * Treatment: * Images: Billing Information: * Visit Code: * Procedure Codes: * Electronic signature of Raul Torres MD on 09/16/2025 at 07:57 AM EST Sign off status: Pending * Provider: Raul Torres M.D. Date: Generated for Jerry panda/Kerwin/Arthur on: 11/16/2024 07:57 AM EST
--- OUTSIDE RECORDS SUMMARY | 2025-09-03 05:45 | XMS_ITS ---
[facility] Address [address] [place] [id number] Care Team Providers Care Line Helper Name Role Phone Raul Torres Primary Care [...] W/U Status Risk Notes Problem Coronary arteriosclerosis ([id number]) ASCVD (arteriosclerotic cardiovascular disease) (I25.10) Active confirmed Vital Signs Blood pressure systolic 120 mm Hg 09/03/20 25 Blood pressure diastolic 70 mm Hg 025 Heart Rate 60 /min 09/03/2025 Height 65 in 09/03/2025 Weight 000 lbs 09/03/2025 Encounters Encounter Location Date Provider [facility] [address] [facility] [address] [place], [place] [phone] 09/03/2025 R John Torres Rheumatoid arthritis , [...] mg/ml 09/03/2025 1 mL Progress Notes * KWASI HUYNHDOB: [birth year] (79 yo F)Acc No.[id number]:09/03/2025 Progress Notes Patient: KWASI PANIAGUA Provider: Raul Torres M.D. :1945 A ge:79 Y S ex:Female Date:09/03/2025 Address:[address] [facility] [place], [id number] Subjective: * Chief Complaints: * 1 . Shot for arthritis. * HPI: R heumatology: She presents with complaints of worsening pain in both shoulders and both hands with swelling of the joints of her hand. She is requesting a steroid injection. She continues on oral prednisone. She has not had recent follow-up with her lumber tripper. C ardiology: She was hospitalized about a month ago with a UTI and NSTEMI. She was discharged to [facility] for rehab and just returned home [...] Procedure: k idney stones 1992, Heart Attack- [place] 09/2013, Facial Pain, Sinus Blockage- [facility] ER 04/24/2018, Itching, Swelling in Hands- [facility] ER 10/21/2018, Multiple rib and pelvic fractures; hyponatremia; rheumatoid arthritis; ASCVD- 06/30-, Dehydration, Failure to Thrive, Acute Urinary Retention- [facility] 07/14-, [facility] : fall with [...] Once a day; C ontinue Potassium Chloride Cahty ER Tablet Extended Release, 10 MEQ, 1 tablet with food, Orally, Twice a day. Notes: Continue f/u with cardiology * Therapeutic Injections: Depo- Medrol 40 mg/ml : 1 mL (Route: Intramuscular) given by SALOMON Quigley on right gluteus (Rheumatoid arthritis, involving unspecified site, unspecified whether rheumatoid factor present) * Procedure Codes: J 1010 Inj, methylpred acetate 1 mg, 01893 ADMINISTRATION OF INJECTION * Follow Up: 3 Months * Images: Billing Information: * Visit Code: 69423 Office Visit, Est Pt., Level 3. * Procedure Codes: J1010 Inj, methylpred acetate 1 mg. 47001 ADMINISTRATION OF INJECTION. * Electronic signature of Raul Torres MD on 09/16/2025 at 08:01 AM EST Sign off status: Pending * Provider: Raul Torres M.D. Date: 11/03/2024 Generated for Jerry panda/Kerwin/Adrianitting on: 11/16/2024 08:01 [...]
--- NOTE | 2025-09-16 | CA_ITS ---
APPROVED REPORT Exam: Pharmacologic Technologist: Astrid Mcmahon Stress Nurse: Amna MCCLURE, RN Ht: 5 ft 6 in Wt: 138 lbs BSA: 1.71 m2 HR: 73 bpm BP: 110/76 mmHg Indications: Coronary artery disease, Reduced ejection fraction, Elevated Troponin Stress Test Details Test: Lexiscan HR Resting HR: 73 bpm Max Heart Rate (APMHR): 142.957095 bpm Max HR Achieved: 99 bpm Target HR (85% APMHR): 120.367759 bpm % of APMHR: 69.72 Recovery HR: 85 bpm BP Resting BP: 110.0/76.0 mmHg Max BP: 112.0/61.0 mmHg Recovery BP: 107.0/65.0 mmHg ECG Resting ECG: Sinus rhythm, PAC/PVC Stress ECG Conclusion Lungs clear to auscultation prior to test start. Symptoms: None Arrhythmias/Ectopy: PAC/PVC ST-T Changes: Less than 0.[address] segment changes. Electronically signed by : Kiana Huerta MD 09/20/2025 22:26:31
--- OUTSIDE RECORDS SUMMARY | 2025-09-16 07:57 | XMS_ITS | Clinical Summary ---
Author Organization Healthcare Address [address] 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 [place] heart without angina pectoris 06/30/2024 Overview (06/30/2024): [...] Department Care Team Description 08/24/2025 Orders Only [facility] [address] [place] [address] Anita Luu Hyponatremia (Primary Dx); Vitamin D insufficiency 06/19/2025 Orders Only [facility] [address] [place] [address] Anita Luu Hyponatremia (Primary Dx); Vitamin [...] Description 10/23/2025 12:20 PM EST Office Visit [facility] [address] [place] [address] Vicente Rodrigez MD [address] [place] [phone] Health Maintenance Due Date Last Done Comments [facility]-Bone Density Scan 1945 [facility]-Depression Screening 1945 [facility]-Medicare Annual Wellness (AWV) 1945 [facility]-/Child/Adol SDOH Screenings 01/01/1946 [facility]- SDOH Screenings 1964 [facility]-Adult SDOH Screenings 1964 [facility]-Zoster Vaccines (1 of 2) 1965 [facility]-RSV Vaccine: 60+ Years or (1 - 1-dose 75+ series) 2021 [facility]-CGVKN-00 Vaccine (2024- season) 2025 08/19/2024, 08/16/2023, 05/29/2023, Additional history [...] BLOOD ORDERABLES Final Re sult [facility] [address] [place] [address] from Last 3 Months or Most Recently Relevant to Health Maintenance Insurance MEDICARE [facility] [place] [id number] Advance Directives * Full Code (Latest Code Status on File) Date Activated Date Inactivated Comments 07/04/2024 1:04 PM * Full Code Date Activated Date Inactivated Comments 06/30/2024 8:06 AM 07/04/2024 1:04 PM Question Answer Comments Patient has decision-making capacity? Yes Care Teams Airflight Attendants Supervisor Relationship Specialty Start Date End Date Amparo Arrington MD [address] [place] [address] [address] [place] [address] PCP - General 03/04/21
--- OUTSIDE RECORDS SUMMARY | 2025-09-16 07:57 | XMS_ITS | Encounter Summary ---
Author Organization Healthcare Address [address] [place] [address] Care Team Providers Care Melter Helper Name Role Phone Amparo Arrington MD Primary Care Provider [phone] Encounter Details Date Type Department Care Team (Late st Contact Info) Description 08/24/2025 Orders Only [facility] [address] [place] [address] Anita Luu Hyponatremia (Primary Dx); Vitamin [...] place to sleep or slept in a [place] [facility] [place] facility (including now)? No 07/01/2024 Utilities Answer Date [...] Description 10/23/2025 12:20 PM EST Office Visit [facility] [address] [place] [address] Vicente Rodrigez MD [address] [place] [phone] Scheduled Orders Name Type Priority Associated [...] documented as of this encounter Care Teams Melter Helper Relationship Specialty Start Date End Date Amparo Arrington MD [address] [place] [address] PCP - General 03/04/21 documented as of this encounter
--- NOTE | 2025-09-16 08:00 | NM_ITS ---
APPROVED REPORT Exam: Nuclear Stress Test Indication: fatigue Patient Location: Outpatient Stress Tech: Astrid Mcmahon [place] Tech:Amber Contreras TRELLAnh RT(R)(N) Ht: 5 ft 5 in Wt: 150 lbs HR: 75 bpm BP: 110/76 mmHg BSA: 1.75 m2 TID: 1.10 BMI: 24.9 History: fatigue Procedure: Patient received 0.4 mg of intravenous Lexiscan, resting heart rate 75 bpm, resting blood pressure 110/76 mmHg, with Lexiscan maximum heart rate achieved was 95 bpm which is 85 % of the maximum predicted heart rate and blood pressure was 109/61 mmHg. With Lexiscan, patient denied any complaint of chest pain. The patient was not able to lay on her abdomen for prone images. Cardiac Stress and Resting SPECT Images: Cardiac Stress and Resting SPECT images were obtained using technetium 99m Myoview 31.3 mCi stress and 10.64 mCi at rest. The patient could not lie on her abdomen. Therefore, prone stress imaging could not be performed. This may affect the diagnostic interpretation of the study findings. Resting and stress imaging in supine positions demonstrate a medium sized, moderate, partially reversible perfusion defect in the basal to mid inferior LV marrufo. Gated imaging demonstrates normal global LV systolic function. LVEF is calculated at 60%. Conclusion: Medium sized, moderate, partially reversible perfusion defect in the basal to mid inferior LV marrufo. Findings are suggestive of partial reversible ischemia. Gated imaging demonstrates normal global LV systolic function. LVEF is calculated at 60%. Electronically signed by : Kiana Huerta MD 09/20/2025 22:17:17
--- OUTSIDE RECORDS SUMMARY | 2025-09-16 08:00 | XMS_ITS | Encounter Summary ---
[facility] Address [address] [place] [address] Care Team Providers Care Customs Director Name Role Phone Wyatt Torres MD Primary Care Provider Encounter Details Date Type Department Care Team (Late st Contact Info) Description 01/15/2025 Results Follow-Up [facility] [address] [facility] [address] [phone] Jennyfer Porras APRN [address] [facility] [address] [place] [address] Social History Tobacco Use Types Packs/Day Years [...] on filedocumented in this encounter Care Teams Customs Director Relationship Specialty Start Date End Date Wyatt Torres MD [address] [facility] [address] [facility] [address] PCP - General Family Medicine 12/26/24 documented as of this encounter
--- OUTSIDE RECORDS SUMMARY | 2025-09-16 08:00 | XMS_ITS | Patient Health Record ---
Author Organization [facility] Address [address] [facility] [address] [place] [id number] Care Team Providers Care Tuber Operator Name Role Phone Raul Torres Primary Care Provider [phone] Marie Helm Unavailable [phone] Oneida Edwards Unavailable [phone] Allergies Allergen (clinical drug ingredient) Drug/Non Drug [...] Interpretation: Performing Lab: Notes/Report: Test performed by [facility] [address] [place] [address] , [address], [place] [address] Gilmer Loew MD, Golf Technician CLIA: [id number] Cortisol AM 5.3 6.0-18.4 ug/dL H-CBC Reviewed date:07/22/2025 12:02:51 PM Interpretation: Performing [...] 117 74-100 mg/dl CA 8.5 8.4-10.2 mg/dl H-Cardiac Enzymes Reviewed date:03/12/2025 11:04:11 [...] Biotin is occasionally prescribed for medical conditions. H-BMP Reviewed date:03/12/2025 11:04:11 AM Interpretation: Performing [...] 97 74-100 mg/dl CA 8.2 8.4-10.2 mg/dl H-CBC Reviewed date:07/28/2025 11:32:54 AM Interpretation: Performing [...] 0.1 0-0.2 K/mm3 NRBC# 0 IG# 0.80 H-Magnesium Reviewed date:07/21/2025 08:59:07 AM Interpretation: Performing [...] K/mm3 NRBC# 0 IG# 0.07 H-BMP Reviewed date:07/27/2025 08:33:48 AM Interpretation: Performing [...] GLU 61 74-100 mg/dl Delta: 81 on 07/26/25-50 CA 8.8 8.4-10.2 mg/dl H-DIFF Reviewed date:07/27/2025 [...] 0.1 0-0.2 K/mm3 NRBC# 0 IG# 0.69 Urinalysis - Inhouse Reviewed date:05/28/2025 03:50:05 PM Interpretation: Performing Lab: Notes/Report: Color/Clarity yellow/clear Leuk neg Nitrite neg Urobili 3.2 Protein neg pH 8.0 Blood neg Sp. Gr. 1.015 Ketone neg Bili neg Gluc neg P-Basic Metabolic Panel (BMP ) Reviewed date:05/26/2025 10:23:05 PM Interpretation:Na 122, cl 86, gluc 102 Performing Lab: Notes/Report: Test performed by [facility] [address] [place] [address] , [place] , [place] [address] Gilmer Lowe MD, Golf Technician CLIA: [id number] Sodium 122 135-145 mmol/L Potassium 4.2 3.5-5.3 mmol/L Chloride 86 97-108 mmol/L CO2 25 20-32 mmol/L Glucose 102 65-99 mg/dL BUN 19 8-23 mg/dL Creatinine 0.85 0.50-1.00 mg/dL Calcium 9.5 8.6-10.4 mg/dL eGFR by Creatinine 70 >59 mL/min/1.73m2 CBC Fingerstick (in house) Reviewed [...] Interpretation: Performing Lab: Notes/Report: Test performed by [facility] [address] [place] [address] [address], [place] [address] Gilmer Lowe MD, Golf Technician CLIA: [id number] Sodium 128 135-145 mmol/L Potassium 3.7 3.5-5.3 mmol/L Chloride 92 97-108 mmol/L CO2 24 22-32 mmol/L Glucose 93 65-99 mg/dL BUN 16 8-23 mg/dL Creatinine 1.02 0.50-1.00 mg/dL Calcium 9.2 8.6-10.4 mg/dL eGFR by Creatinine 56 >59 mL/min/1.73m2 H-DIFF Reviewed date:07/28/2025 11:32:54 AM Interpretation: Performing [...] 79 74-100 mg/dl CA 8.8 8.4-10.2 mg/dl H-CBC Reviewed date:07/24/2025 09:37:12 AM [...] mg/dl CA 8.9 8.4-10.2 mg/dl H-BMP Reviewed date:03/17/2025 11:12:11 AM Interpretation: Performing [...] 80 74-100 mg/dl CA 8.3 8.4-10.2 mg/dl P-Basic Metabolic Panel (BMP ) Reviewed date:10/07/2024 05:35:13 PM Interpretation:Na 131, cl 95, gluc 126, Cr 1.13, gfr 50 Performing Lab: Notes/Report: Test performed by [email or web address], [address] , [address], [place] [address] Gilmer Lowe MD, Golf Technician CLIA: [id number] Sodium 131 135-145 mmol/L Potassium 4.6 3.5-5.3 mmol/L Chloride 95 97-108 mmol/L CO2 22 22-32 mmol/L Glucose 126 65-99 mg/dL BUN 13 8-23 mg/dL Creatinine 1.13 0.50-1.00 mg/dL Calcium 9.5 8.6-10.4 mg/dL eGFR by Creatinine 50 >59 mL/min/1.73m2 H-Magnesium Reviewed date:03/12/2025 11:04:11 AM Interpretation: Performing Lab: Notes/Report: MG 1.5 1.6-2.3 mg/dl H-PHOS Reviewed date:03/12/2025 11:04:11 AM Interpretation: Performing Lab: Notes/Report: PHOS 2.8 2.5-4.5 mg/dl M-Hemoglobin and Hematocrit Reviewed date:03/12/2025 11:04:11 AM Interpretation: Performing Lab: Notes/Report: HGB 11.4 12.2-16.2 g/dL HCT 32.1 37.0-47.0 % BMP Reviewed date:04/02/2025 02:57:40 PM Interpretation: Performing Lab: Notes/Report: H-CBC Reviewed date:07/23/2025 08:33:44 AM Interpretation: Performing [...] 114 74-100 mg/dl CA 8.0 8.4-10.2 mg/dl CBC Venipuncture (in house) Reviewed [...] Duration) Notes Start Date End Date Status Pravastatin Sodium 40 MG 1 tablet Orally Once a day Active Cyclobenzaprine HCl 5 MG 1 tab 3 times a day As needed Not-Taking Potassium Chloride Cathy ER 10 MEQ 1 tablet with food Orally Twice a day Active Tamsulosin HCl 0.4 MG 1 capsule Orally O nce a day; Duration: 90 days Active Acetaminophen 500 MG 1 capsule as needed Orally every 6 hrs prn Active Chlorthalidone 12.5 MG 1 tablet in the morning with food Orally daily; Duration: 90 days Not-Taking Melatonin 3 MG 1 tablet in the evening at HS Active traMADol HCl 50 MG 1 tab(s) Orally q6h prn 08/01/2024 Active Hyoscyamine Sulfate 0.125 MG 1 tablet as needed Orally 4 times a day; Duration: 30 days 09/14/2025 Active Plaquenil 200 MG 1 tab(s) orally daily Active predniSONE 5 MG 1 tab orally once a day Active Entresto 24-26 MG 1 tablet Orally Twic e a day Active Spironolactone 25 MG 1 tablet Orally Onc e a day Active Lidocaine 5 % 1 patch remove after 12 hours Externally Once a day 02/17/2025 Not-Taking Carvedilol 6.25 MG 1 tab(s) Orally 2 times a day Active Levothyroxine Sodium 112 MCG 1 tablet in the morning on an empty stomach Orally Once a day; Duration: 90 days Active Aspirin Adult Low Dose 81 MG 1 tab(s) orally once a day Active Immunizations Vaccine Route [...] 23 VACCINE IM Intramuscular 07/12/2023 Administe red Tetanus Tdap-Adacel (over 7yrs) IM Intramuscular 09/03/2018 Administered Tetanus Tdap-Adacel (over 7yrs) IM Intramuscular 01/07/2008 Administered xFlu shot-36 months and older IM Intramuscular 08/31/2009 Administered COVID 19 Moderna Unknown 06/17/2021 Administered COVID 19 Moderna Unknown 12/16/2020 Administered COVID 19 Moderna Unknown 11/18/2020 Administered Fluzone High Dose (65yr and older) IM Intramuscular 08/14/2024 Administered Prevnar (PCV13) IM Intramuscular 05/14/2020 Administered Problems Problem Type SNOMED Code ICD Code Onset Dates Problem Status W/U Status Risk Notes Problem Essential hypertension (97748234) Essential (primary) hypertension (I10) Active confirmed Problem Coronary arteriosclerosis (31253445) ASCVD (arteriosclerotic cardiovascular disease) (I25.10) Active confirmed Problem Essential hypertension (95656120) Essential hypertension (I10) Active confirmed Problem Gout attack (831588597) Gout attack (M10.9) Active confirmed Problem Rhinitis (83749515) Rhinitis (J31.0) Active con firmed Problem Osteopenia (586854298) Osteopenia (M85.80) Active confirmed Problem Altered mental statu s (018298634) Altered mental state (R41.82) Active confirmed Problem Environmental allerg y (505676370) Environmental allergies (Z91.048) Active confirmed Problem Memory loss (17913042) Memory loss (R41.3) Active confirmed Problem Hypomagnesemia (109098029) Hypomagnesemia (E83.42) Active confirmed Problem Acute non-ST segment elevation myocardial infarction (464368262) Non-ST elevation (NSTEMI) myocardial infarction (I21.4) Active confirmed Problem Inflammatory polyarthropathy (928920595) 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) Active confirmed Problem Polymyalgia rheumatica (54954279) Polymyalgia rheumatica (M35.3) Active confirmed Problem Ataxic gait (33541516) Ataxic gait (R26.0) Active confirmed Problem Acquired hypothyroidism (174384494) Acquired hypothyroidism (E03.9) Active confirmed Problem Neck pain (84871283) Neck pain (M54.2) Active c onfirmed Problem Paresthesia (finding ) (95762246) Paresthesias (R20.2) Active confirmed Problem History of circulatory system disease (988987540) 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) Active confirmed Problem Muscle spasm (11266952) Muscle spasm (M62.838) Active confirmed Problem Rheumatoid arthritis (73911754) Rheumatoid arthritis (M06.9) Active confirmed Problem Sleep disorder (17672421) Sleep disorder (G47.9) Active confirmed Problem Cervical disc disorder (484328877) DDD (degenerative disc disease), cervical (M50.30) Active confirmed Problem Primary osteoarthritis (123254342) Primary osteoarthritis (M19.91) Active confirmed Problem Dyslipidemia (742716232) Dyslipidemia (E78.5) Active confirmed Problem Leukocytosis (988599185) Leukocytosis, unspecified (D72.829) Active confirmed Problem Impairment of balanc e (001956252) Balance problem (R26.89) Active confirmed Problem Anemia (428622069) Mild anemia (D64.9) Active c onfirmed Problem Rheumatoid arthritis (49996946) Rheumatoid arthritis, involving unspecified site, unspecified whether rheumatoid factor present (M06.9) Active confirmed Problem Sialodocholithiasis (74822149) Sialodocholithiasis (K11.5) Active confirmed Vital Signs Heart Rate 60 /min 09/03/2025 Respiratory Rate 20 /min 03/31/2025 Blood pressure diastolic 70 mm Hg 09/03/2025 Height 65 in 09/03/2025 Blood pressure systolic 120 mm Hg 09/03/2025 Weight 000 lbs 09/03/2025 BMI 25.32 kg/m2 06/16/2025 Encounters Encounter Location Date Provider Diagnosis [facility] [address] [facility] [address] [place] [id number] 09/30/2024 R John Torres Leg edema R60.0 ; Hypokalemia E87.6 and Pain of hand, unspecified laterality M79.643 [facility] [address] [facility] [address] [place] [id number] 11/13/2024 R John Torres Chronic diarrhea K52 .9 and Rheumatoid arthritis, involving unspecified site, unspecified whether rheumatoid factor present M06.9 [facility] [address] [facility] [address] [place] [id number] 12/12/2024 Oneida Crowdy Open wound of right lower extremity, initial encounter S81.801A [facility] [address] [place] [id number] 12/25/2024 R John Torres Rheumatoid arthritis M06.9 [facility] [address] [place] [id number] 02/05/2025 R John Rodriguesfleet Acute sinusitis J01. 90 ; Inflammatory polyarthropathy M06.4 ; Polymyalgia rheumatica M35.3 ; Acquired hypothyroidism E03.9 ; Dyslipidemia E78.5 ; Essential hypertension I10 and BMI 24.0-24.9, adult Z68.24 [facility] [address] [place] [id number] 02/17/2025 R John Osmant Glossitis K14.0 ; Shoulder pain M25.519 and BMI 24.0-24.9, adult Z68.24 [address] [place] [id number] 03/31/2025 Marie Helm Polymyalgia rheumati ca M35.3 ; Rib fractures S22.39XA ; Acquired hypothyroidism E03.9 ; Dyslipidemia E78.5 ; Essential hypertension I10 ; Nausea R11.0 ; Leg edema R60.0 ; Hx of arteriosclerotic cardiovascular disease Z86.79 ; Accidental fall, subsequent encounter W19.XXXD ; Sleep disorder G47.9 and Hypokalemia E87.6 [facility] [address] [place] [id number] 04/09/2025 R John Rodriguesfleet Hyponatremia E87.1 ; Rib fractures S22.39XA ; Chronic diarrhea K52.9 and BMI 23.0-23.9, adult Z68.23 [facility] [address] [place] [id number] 04/16/2025 R John Osmant Acute sinusitis J01. 90 ; Adhesive capsulitis of left shoulder M75.02 ; Dyslipidemia E78.5 ; Rib fractures S22.39XA ; Leg edema R60.0 and Onychomycosis B35.1 [facility] [address] [place], [place] [id number] 05/07/2025 R John Melissa Inflammatory polyarthropathy M06.4 [facility] [address] [facility] [address] [place] [id number] 05/19/2025 R John Melissa Hyponatremia E87.1 ; Muscle weakness M62.81 and BMI 23.0-23.9, adult Z68.23 [facility] [address] [facility] [address] [place], [place] [id number] 05/26/2025 R John Melissa Hyponatremia E87.1 ; Memory loss R41.3 and BMI 24.0-24.9, adult Z68.24 [facility] [address] [facility] [address] [place], [place] [id number] 05/28/2025 R John Melissa Altered mental state R41.82 [facility] [address] [place], [place] [id number] 06/16/2025 R John Melissa Rheumatoid arthritis M06.9 ; Leg edema R60.0 and Hyponatremia E87.1 [facility] [address] [place], [place] [id number] 07/15/2025 R John Melissa Encounter for immunization Z23 [facility] [address] [place], [place] [id number] 09/03/2025 R John Melissa Rheumatoid arthritis , involving unspecified site, unspecified whether rheumatoid factor present M06.9 and ASCVD (arteriosclerotic cardiovascular disease) I25.10 [facility] [address] [facility] [address] [place], [place] [id number] 09/22/2024 R John Melissa Rib fractures S22.39 XA [facility] [address] [facility] [address] [place] [id number] 10/01/2024 R John Melissa [facility] [address] [place], [place] [id number] 10/08/2024 R John Melissa [facility] [address] [place] [id number] 10/23/2024 R John Melissa Leg edema R60.0 [facility] [address] [place], [place] [id number] 11/18/2024 R John Melissa Rib fractures S22.39 XA [facility] [address] [place], [place] [id number] 11/25/2024 R John Melissa [facility] [address] [place], [place] [id number] 12/12/2024 R John Melissa Chronic diarrhea K52 .9 [facility] [address] [place] [id number] 12/17/2024 R John Melissa Rib fractures S22.39 XA [facility] [address] [place] [id number] 12/26/2024 R John Melissa [facility] [address] [place] [id number] 2024 R John Melissa Chronic diarrhea K52 .9 [facility] [address] [place] [id number] 01/06/2025 R John Melissa [facility] [address] [place] [id number] 01/13/2025 R John Melissa Rib fractures S22.39 XA [facility] [address] [place] [id number] 01/21/2025 R John Melissa [facility] [address] [place] [id number] 01/30/2025 R John Melissa Rib fractures S22.39 XA [facility] [address] [place] [id number] 02/02/2025 R John Melissa [facility] [address] [place] [id number] 02/04/2025 R John Melissa Chronic diarrhea K52 .9 [facility] [address] [place] [id number] 02/16/2025 R John Melissa Rib fractures S22.39 XA [facility] [address] [place] [id number] 03/02/2025 Marie Helm Rib fractures S22.39 XA [facility] [address] [place], [place] [id number] 03/16/2025 R John Melissa [facility] [address] [place] [id number] 03/23/2025 R John Melissa [facility] [address] [place] [id number] 04/02/2025 R John Melissa [facility] [address] [place] [id number] 04/07/2025 R John Melissa Leg edema R60.0 [facility] [address] [place] [id number] 04/09/2025 R John Melissa Leg edema R60.0 [facility] [address] [place] [id number] 04/10/2025 R John Melissa [facility] [address] [place] [id number] 04/13/2025 R John Melissa [facility] [address] [place] [id number] 04/13/2025 R John Melissa Acquired hypothyroid ism E03.9 [facility] [address] [place] [id number] 04/14/2025 R John Melissa [facility] [address] [place] [id number] 04/19/2025 R John Melissa Screening for osteoporosis Z13.820 [facility] [address] [place] [id number] 04/20/2025 R John Melissa [facility] [address] [place] [id number] 04/22/2025 R John Melissa Nausea R11.0 [facility] [address] [place] [id number] 05/06/2025 R John Melissa Hypokalemia E87.6 [facility] [address] [place], [place] [id number] 05/26/2025 R John Melissa [facility] [address] [place] [id number] 05/29/2025 Oneida Crowdy [facility] [address] [place], [place] [id number] 06/02/2025 R John Melissa [facility] [address] [place] [id number] 06/02/2025 R John Melissa [facility] [address] [place] [id number] 06/09/2025 R John Melissa [facility] [address] [place] [id number] 06/09/2025 R John Melissa [facility] [address] [place] [id number] 06/18/2025 R John Melissa Leg edema R60.0 [facility] [address] [place] [id number] 06/25/2025 R John Melissa [facility] [address] [place] [id number] 07/06/2025 R John Melissa [facility] [address] [place] [id number] 07/24/2025 R John Melissa [facility] [address] [place] [id number] 08/04/2025 R John Melissa [facility] [address] [facility] [address] [facility] [address] [place] [id number] 09/07/2025 Raul Coleman [address] [facility] 36 [facility] [address] [place] [id number] 09/14/2025 Raul Torres Assessments Encounter Date Diagnosis (ICD Code) Assessment Notes Treatment Notes Treatment Clinical Notes Section Notes 10/23/2024 Leg edema (ICD-10 - R60.0) 11/13/2024 [...] J01.90) 02/05/2025 Inflammatory polyarthropathy (ICD-10 - M06.4) 09/22/2024 Rib fractures (ICD-10 - S22.39XA) 09/30/2024 Leg edema (ICD-10 - R60.0) 09/30/2024 Hypokalemia (ICD-10 - E87.6) 02/16/2025 Rib fractures (ICD-10 - S22.39XA) 02/17/2025 Glossitis (ICD-10 - K14.0) 02/17/2025 Shoulder pain (ICD-10 - M25.519) 03/02/2025 Rib fractures (ICD-10 - S22.39XA) 03/31/2025 [...] E87.1) 05/26/2025 Memory loss (ICD-10 - R41.3) 05/28/2025 Altered mental state (ICD-10 - R41.82) 06/18/2025 Leg edema (ICD-10 - R60.0) 07/15/2025 Encounter for immunization (ICD-10 - Z23) 09/03/2025 Rheumatoid arthritis, involving unspecified site, unspecified whether rheumatoid factor present (ICD-10 - M06.9) 09/03/2025 ASCVD (arteriosclerotic cardiovascular disease) (ICD-10 - I25.10) Continue f/u with cardiology 06/16/2025 Rheumatoid arthritis (ICD-10 - M06.9) 06/16/2025 Leg edema (ICD-10 - R60.0) 06/16/2025 Hyponatremia (ICD-10 - E87.1) 05/26/2025 BMI 24.0-24.9, adult (ICD-10 - Z68.24) 05/19/2025 BMI 23.0-23.9, adult (ICD-10 - Z68.23) 04/16/2025 Dyslipidemia (ICD-10 - E78.5) 04/09/2025 Chronic diarrhea (ICD-10 - K52.9) 03/31/2025 Acquired hypothyroidism (ICD-10 - E03.9) 02/17/2025 BMI 24.0-24.9, adult (ICD-10 - Z68.24) 09/30/2024 Pain of hand, unspecified laterality (ICD-10 - M79.643) 02/05/2025 Polymyalgia rheumatica (ICD-10 - M35.3) 02/05/2025 Acquired hypothyroidism (ICD-10 - E03.9) 03/31/2025 Dyslipidemia (ICD-10 - E78.5) 04/16/2025 Rib fractures (ICD-10 - S22.39XA) 04/09/2025 BMI 23.0-23.9, adult (ICD-10 - Z68.23) 04/16/2025 Leg edema (ICD-10 - R60.0) 03/31/2025 [...] Date MEDICARE PART B [address] [address] [place] [id number] [id number] KWASI HUYNH Self - patient is the insured [employer] [facility] [place] [id number] KWASI HUYNH Self - patient is the insured Medications Administered Medication Instructions Date of Administration Dosage Notes Depo- Medrol 40 mg/ml 04/17/2022 1.5 mL Depo- Medrol 40 mg/ml 01/09/2022 1 mL Depo- Medrol 40 mg/ml 01/02/2022 1.5 mL Depo- Medrol 40 mg/ml 02/13/2020 1.5 mL Depo- Medrol 40 mg/ml 11/25/2018 1.5 mL Depo- Medrol 40 mg/ml 12/08/2013 1.5 mL depo medrol 80 mg 05/07/2025 1.5 mL Benadryl 10/21/2018 .25 mL phenergan 25 mg/ml 11/29/2023 25 mg Dexamethasone 04/16/2025 1 mL Dexamethasone 12/18/2023 1.5 mL Dexamethasone 03/10/2019 1 mL Dexamethasone 03/07/2019 1 mL Dexamethasone 12/01/2013 1 mL Depo- Medrol 40 mg/ml 09/03/2025 1 mL Depo- Medrol 40 mg/ml 06/16/2025 1 mL Depo- Medrol 40 mg/ml 04/09/2025 1 mL Depo- Medrol 40 mg/ml 12/25/2024 1 mL Depo- Medrol 40 mg/ml 09/30/2024 1 mL Depo- Medrol 40 mg/ml 03/11/2024 1 mL Depo- Medrol 40 mg/ml 12/11/2023 1 mL Depo- Medrol 40 mg/ml 05/15/2023 1.5 mL Depo- Medrol 40 mg/ml 03/08/2023 1.5 mL Depo- Medrol 40 mg/ml 01/23/2023 1.5 mL Depo- Medrol 40 mg/ml 12/07/2022 1.5 mL Depo- Medrol 40 mg/ml 09/18/2022 1.5 mL Depo- Medrol 40 mg/ml 08/04/2022 1.5 mL Dexamethasone 02/05/2025 1.5 mL Dexamethasone 11/20/2023 1 mL Depo- Medrol 40 mg/ml 11/13/2024 1 mL Depo- Medrol 40 mg/ml 01/10/2024 1 mL Depo- Medrol 40 mg/ml 09/04/2023 1 mL Depo- Medrol 40 mg/ml 06/21/2023 1 mL Dexamethasone 03/16/2022 1 mL Depo- Medrol 40 mg/ml 04/23/2018 1.5 mL Depo- Medrol 40 mg/ml 11/28/2018 1.5 mL Dexamethasone 12/19/2019 1 mL Dexamethasone 12/16/2018 1 mL Medical (General) History Medical History History ICD Code hyperlipidemia-followed by Dr. Arrington hypertension Hypothyroidism/goiter kidney stones allergic rhinitis ASCVD: [place] - 09/2013-followed by Dr. Arrington q 6 months cataracts Hyperuricemia Inflammatory arthritis - Dr. Cheng polymyalgia rheumatica - Dr. Skylar Bhatia Covid vaccine x2 Oct/Nov 2020 Surgical History Surgery Date(Month/Year) Thyroidectomy/Goiter removal 1999 Back 2001 Total Hysterectomy 1992 Tonsillectomy child Cardiac Stent Placed-St Glovere-Dr Arrington. Dr. Santo 10/19/2013 Cataract 10/2017 Hospitalization History Reason Date(Month/Year) Facial Pain, Sinus Blockage- [facility] 01/2018 Heart Attack- [facility] 09/2013 Itching, Swelling in Hands- [facility] 10/21 kidney stones 1992 [facility] : fall with multiple FX ribs on the right; hyponatremia and hypokalemia 03/12-03/15/2025 Dehydration, Failure to Thrive, Acute Ur inary Retention- [facility] 07/14- Multiple rib and pelvic frac tures; hyponatremia; rheumatoid arthritis; ASCVD- 06/30-
--- OUTSIDE RECORDS SUMMARY | 2025-09-16 08:01 | XMS_ITS | Clinical Summary ---
Author Organization [facility] Address [address] [place] [address] Care Team Providers Care Acid Concentrator Name Role Phone Wyatt Torres MD Primary [...] - 200 mg/dL 01/15/2025 12:23 AM EDT [facility] Triglycerides 89 0 - 150 mg/dL 01/15/2025 12:23 AM EDT [facility] HDL Cholesterol 99(H) 40 - 60 mg/dL 01/15/2025 12:23 AM EDT [facility] LDL Cholesterol 75 0 - 100 mg/dL 01/15/2025 12:23 AM EDT [facility] VLDL Cholesterol 16 5 - 40 mg/dL 01/15/2025 12:23 AM EDT [facility] LDL/HDL Ratio 0.74 01/15/2025 12:23 AM EDT [facility] Blood Venipuncture / Unknown 01/14/2025 10:25 AM EDT 01/14/2025 10:26 AM EDT Narrative [facility] - 01/15/2025 12:23 AM [...] MD LAB BLOOD ORDERABLES Final Resul t [facility]
[address] [place] [address], from Last 3 Months or Most Recently Relevant to Health Maintenance Insurance MEDICARE A & B [employer] [facility] [place] [id number] Care Teams Acid Concentrator Relationship Specialty Start Date End Date Wyatt Torres MD [address] [facility] [address] [facility] [address] [place] [place] [id number] PCP - General Family Medicine 12/26/24
--- OUTSIDE RECORDS SUMMARY | 2025-09-16 08:01 | XMS_ITS | Clinical Summary ---
Author Organization [facility] Address [address] [place] [address] Phone Care Team Providers Care Wall Worker Name Role Phone Unavailable Primary Care Provider [...] B MEDICARE IN PART A AND B [facility]
--- OUTSIDE RECORDS SUMMARY | 2025-09-16 08:01 | XMS_ITS | Data Portability ---
Author Organization [facility] COREEN MontañoS LA HONDA CLOSED Address [address] [place] [address] Care Team Providers Care Pt Escort Name Role Phone EMA CAMPOS Primary Care Provider ROSE BASS Picture Enlarger Assessment Encounter Date Assessment Date Assessment LastModified [...] recorded. Lab rf (rheumatoid factor), serum 2023 [facility], [address] [place] [address], [phone], 11:20:43 ccp (cyclic citrullinat ed peptide) iga+igg, serum 2023 024 [facility], [address] [place] [address], [address], 4 16:52:40 ESR (erythrocyt e sedimentati on rate), blood 2023 024 [facility], [address] [place] [address], [address], 4 11:12:24 C reactive protein, QN, serum or plasma 2023 024 [facility], [address] [place] [address], [address], 4 11:20:45 Mycobacteri um tuberculosi s stimulated gamma interferon, qual, blood 2023 024 [facility], [address] [place] [address], [address], 4 02:43:42 hepatitis C Ab, serum 2023 024 [facility], [address] [place] [address], [address], 4 11:39:06 ESR (erythrocyt e sedimentati on rate), blood 2023 024 [facility], [address] [place] [address], [address], 4 11:13:45 C reactive protein, QN, serum or plasma 2023 024 [facility], [address] [place] [address], [address], 4 11:26:25 Referral None recorded. Procedures None recorded. Surgeries None recorded. Imaging None recorded. Medication Orders prednisone 5 mg tablet 2024 025 [facility], [address] [place], [address], 5 10:42:41 Cymbalta 30 mg capsule,del ayed release 2023 024 [facility], [address] [place], [address], 4 10:15:00 Depo-Medrol 80 mg/mL suspension for injection 2023 024 [facility] [address], [address] [place], [address], 4 10:45:28 Patient TargetsNo targets recorded. Patient InstructionsNo instructions recorded. Reason for Referral None Reported. Results Created Date Observation Date Name Description Value Unit Range Abnormal Flag Note LastModifiedBy Organization Detail LastModifiedTime 10/25/1910/25/2023 ESR, AUTOM ATED ESR, automated 7 mm 0-29 normal Not Available [facility] [address] [place] [address], [address], 10/25/2023 11:13:45 10/25/19 24 10/25/2023 C REACT KASANDRA PROTE IN C reactive protein 0.17 mg/dL 0.00-0 .49 normal Not Available [facility] [address] [place] [address], [address], 10/25/2023 11:26:25 05/07/20 24 05/07/2024 ESR, AUTOM ATED ESR, automated 12 mm 0-29 normal Not Available [facility] [address] [place] [address], [address], 05/07/2024 11:12:24 05/07/20 24 05/07/2024 RF SCREE N, QUANT . rf screen, quant. <10.0 [IU]/ mL 0.0-13 .9 normal Not Available [facility] [address] [place] [address], [address], 05/07/2024 11:20:43 05/07/20 24 05/07/2024 C REACT KASANDRA PROTE IN C reactive protein 0.17 mg/dL 0.00-0 .49 normal Not Available [facility] [address] [place] [address], [address], 05/07/2024 11:20:45 05/07/20 24 05/07/2024 HEPAT ITIS C AB SCR, REFLE X HCVQT hcab scr, reflex viral RNA qt NONREA CTIVE nonrea ctive normal Antib odies to HCV were not detec beth; does not exclu de the possi bilit y of expos ure to HCV. Not Available [facility] [address] [place] [address], [address], 05/07/2024 11:39:06 05/07/20 24 05/09/2024 ANTI- CCP anti-ccp <16 units normal Refer ence Range Negat kasandra: <20 Weak Posit kasandra: 20-39 Moder ate Posit kasandra: 40-59 Stron g Posit kasandra: >59 Not Available [facility] [address] [place] [address], [address], 05/09/2024 16:52:40 05/07/20 24 05/10/2024 QUANT IFERO N TB GOLD qtb gold NEGATI VE negati ve normal Negat kasandra test resul t. M. tuber culos is compl ex infec tion unlik erin. Not Available [facility] [place], [address], 05/15/2024 15:49:02 05/07/20 24 05/10/2024 QUANT IFERO N TB GOLD nil 0.01 IU/mL normal Not Available [facility] [place], [address], 05/15/2024 15:49:02 05/07/20 24 05/10/2024 QUANT IFERO N TB GOLD mitogen nil >10.00 IU/mL normal Not Available [facility] [place], [address], 05/15/2024 15:49:02 05/07/20 24 05/10/2024 QUANT IFERO N TB GOLD TB1 nil 0.00 IU/mL normal Not Available [facility] [address] [place], [address], 05/15/2024 15:49:02 05/07/20 24 05/10/2024 QUANT IFERO [...] refer to https ://ed ucati on.qu blayne XTRM. Moonshoot/f aq/FA Q204 (This link is being provi ded for infor uday cormier/ toi tamayo l purpo ses only. ) Not Available [facility] [address] [place], [address], 05/15/2024 15:49:02 Result Notes None recorded. Problems Name Problem SNOMED Code Status Onset Date Resolution Date Notes Provider Name and Address Organization Details Recorded Time Hyperuricemia 94104364 Active 2017 ARLENE MEI, MD DO [facility] [address] [place], [address], [facility] 8 15:44:58 Problem Notes None recorded. Procedures Surgical History Date Name Laterality Status Provider Name and Address Organization Details Recorded Time Remove tonsils and adenoids completed [facility] 12/19/2018 09:47:28 Removal of thyroid completed [facility] 12/19/2018 09:47:47 Imaging Results None recorded. Procedure Notes None recorded. Medical Equipment None Reported. Allergies Allergen ID Allergen Name Allergen Category Reaction Reaction Severity Criticality Documentation Date Start Date Code Code System Note Provider Name and Address Organization Details Recorded Time 919916 Substance with sulfonami de structure and antibacte rial mechanism of action (substanc e) medicatio n Not available Not available Not available 09/15/20162014 63154 8003 SNOMED Comme nt: Creat ed By: Rayna Gonzalez; Creat ed Date: 2014 10:04 :26 AM; Not Available [facility] 6 09:13:41 731992 codeine medicatio n Not available Not available Not available 09/15/20162014 2670 RxNorm Comme nt: Creat ed By: Rayna Gonzalez; Creat ed Date: 2014 10:03 :51 AM; Not Available [facility] 6 09:37:20 Medications Name Sig [...] levothyr oxine; Dosage:1 ; refills: 0; Quantity :67062 mcg Not Available Not Available Not Available [...] weight Respiratory rate Heart rate Oxygen saturation Systolic And Diastolic Provider Name and Address Organization Details Last Updated DateTime 4 167.64 cm 24.7 kg/m2 28626.6 3 g 16 /min 67 /min 96 % 152/90 mm[Hg] Frieda Mcmahon [facility] 10:07:20 Date Recorded Body height Body mass index (BMI) Body weight Provider Name and Address Organization Details Last Updated DateTime 10/28/2024 167.64 cm 24.7 kg/m2 99047.63 g Arash Zavala [facility] 10/28/2024 13:15:40 Date Recorded Body height Body mass index (BMI) Body weight Respiratory rate Heart rate Oxygen saturation Systolic And Diastolic Provider Name and Address Organization Details Last Updated DateTime 4 167.64 cm 24.7 kg/m2 06175.6 3 g 16 /min 69 /min 96 % 120/80 mm[Hg] Frieda Mcmahon [facility] 4 10:42:58 Date Recorded Body height Respiratory rate Body mass index (BMI) Body weight Oxygen saturation Heart rate Systolic And Diastolic Provider Name and Address Organization Details Last Updated DateTime 5 167.64 cm 16 /min 24.7 kg/m2 38829.6 3 g 97 % 68 /min 126/82 mm[Hg] Arash Lucas [facility] 5 10:34:11 Date Recorded Body height Body mass index (BMI) Body weight Respiratory rate Heart rate Oxygen saturation Systolic And Diastolic Provider Name and Address Organization Details Last Updated DateTime 4 167.64 cm 24.7 kg/m2 16678.6 3 g 16 /min 86 /min 97 % 122/80 mm[Hg] Frieda [facility] 4 09:59:55 Social History Question Answer Notes LastModified by ELERTS Details LastModified Time Tobacco Smoking Status Former Smoker January [facility] 10/26/2017 14:04:04 How Much Tobacco Do You Chew? None Information not available 06/19/2019 What Was The Date Of Your Most Recent Tobacco Screening? 01/27/2025 [email or web address] Information not available 01/27/2025 How Much Tobacco Do You Smoke? 1 PPD Information not available 06/19/2019 How Many Years Have You Smoked Tobacco? 40 Information not available 06/19/2019 Have You Recently Traveled Abroad? No [email or web address] Information not available 10/24/2022 Sex: Unknown Functional Status Question Answer Note LastModified by ELERTS Details LastModified Time What is your level of alcohol consumption? None [email or web address] Information not available 12/19/2018 Do you or [...] ICD10 Code Diagnosis IMO Codes Diagnosis Note [id number] ARLENE MEI APRN [facility] [address] [place] [address] 10/26/2017 13:52:29 10/26/2017 14:49:45 Pain of multiple joints 35085528 M25.50 71 year old female is here [...] go over results. Anti-nucle ar factor detected 191469032 R76.8 As detailed above OPAL obtained in 2013 was 1:160 homogenous .Recently checked per PCP and was homogenous 1:320.Will obtain lupus panel today. [id number] ARLENE MEI APRN [facility] [address] [place] [address] 11/08/2017 10:21:14 11/12/2017 08:10:02 Hyperuricemia 56759129 E79.0 Hyperurice miaPatient reports episodes of heat in joints and joint pain.Furth er was found to have positive OPAL homogenous 1:320Lupus panel negativeRf actor-nega tive ESR- 22 mm/hr uric acid 5.8 mg/dLWent over lab results in detail with Judithsonido today.Her joint pain and feeling of heat [...] 3 months, to recheck uric acid level. [id number] ROSE BASS MD [facility] [address] [place] [address] 11/04/2018 10:30:43 11/07/2018 07:59:17 Inflammatory polyarthropathy 874865537 M06.4 very pleasant 72-year-ol d female with [...] she was comfortabl e with the plan. [id number] ROSE BASS MD [facility] [address] [place] [address] 12/19/2018 09:01:43 12/20/2018 08:50:39 Polymyalgia rheumatica 70306051 M35.3 clinically looks so much better. Active and passive range of motion. She has palpable pulses without any jaw tenderness or temporal tenderness . I would like her to maintain prednisone at 5 mg once a day. Inflammato ry polyarthropathy 579911466 M06.4 in terms of inflammato ry arthritis, [...] Her baseline eye examinatio n is stable. [id number] ROSE BASS MD [facility] [address] [address] 06/19/2019 09:47:18 06/24/2019 08:38:26 Polymyalgia rheumatica 21135363 M35.3 chronic disease and under excellent control. In clinical remission. Excellent Range of motion. No physical limitation s noted. I would like her to maintain prednisone at 5 mg once a day. Inflammato ry polyarthropathy 772177210 M06.4 chronic polyarticu lar inflammato ry arthritis associated with PMR remains in clinical remission. I would like her to continue with hydroxychl oroquine at 200 mg once a day. [id number] ROSE BASS [facility] [address] [place] [address] 06/21/2020 07:59:24 06/21/2020 11:07:16 Polymyalgia rheumatica 04595679 M35.3 74-year-ol d female with chronic polymyalgi [...] headaches or vision changes. Inflammato ry polyarthropathy 462089469 M06.4 chronic polyarticu lar inflammato ry arthritis associated with PMR. fairly stable. maintain hydroxychl oroquine 200 mg twice a [id number] ROSE BASS MD [facility] [address] [place] [address] 09/29/2020 10:12:08 09/29/2020 10:38:53 Polymyalgia rheumatica 53537017 M35.3 74-year-ol d female with chronic polymyalgi [...] follow-up in 3 months Inflammato ry polyarthropathy 754037743 M06.4 associated inflammato ry arthritis. Symptomati marvin joint pains as detailed above. Medication s As described above combinatio n of hydroxychl oroquine and prednisone . Follow-up in 3 months. [id number] ROSE BASS MD [facility] [address] [place] [address] 12/29/2020 10:28:14 12/29/2020 11:52:19 Polymyalgia rheumatica 95546884 M35.3 74-year-ol d female with chronic polymyalgi [...] n once a year. Inflammato ry polyarthropathy 384329754 M06.4 Chronic and associated with polymyalgi a rheumatica . Currently clinically stable. Maintain the combinatio n of prednisone as well as hydroxychl oroquine as stated above. [id number] ROSE BASS [facility] [address] [place] [address] 04/29/2021 09:27:28 04/29/2021 10:15:19 Inflammatory polyarthropathy 830890546 M06.4 Chronic and associated with polymyalgi a rheumatica . has done well. Unfortunat erin not able to load the prednisone dose and is currently on prednisone 10 mg alternatin g with 5 mg every other day. She also takes hydroxychl oroquine 200 mg twice a day. Must need to follow with eye examinatio n once a year Polymyalgi a rheumatica 54520081 M35.3 75-year-ol d female with chronic polymyalgi a rheumatica . Clinically stable on the current dose of prednisone as detailed above. No stigmata for giant cell arteritis. Repeat the ESR. Follow with eye examinatio n once a year. Long-term drug therapy 462219711 Z79.899 Of pain last follow-up on polymyalgi a rheumatica and inflammato ry arthritis. Bone density test needs to be done every 2 years. Maintain calcium and vitamin D on account of risk for osteoporos is on steroids. Also suggested to follow up with a bone density test with her primary care physician [id number] ROSE BASS MD [facility] [address] [place] [address] 11/02/2021 12:56:26 11/02/2021 13:19:32 Inflammatory polyarthropathy 884114551 M06.4 Okaqt33-wh ar-old with polyarthri tis Chronic and stable. The current combinatio n of prednisone and hydroxychl oroquine is very helpful. Refills were given.Foll ow-up in 6 months Polymyalgi a rheumatica 86030414 M35.3 75-year-ol d female with chronic polymyalgi a rheumatica . Clinically stable on the current dose of prednisone 10 mg alternatin g with 5 mg every other day along with hydroxychl oroquine 200 mg twice a day. No stigmata for giant cell arteritis. Repeat the ESR. Follow with eye examinatio n once a year. Long-term drug therapy 191622525 Z79.899 Must follow-up with an eye examinatio n every year. Bone density test every 2 years. Maintain calcium vitamin D. Also suggested to follow up with a bone density test with her primary care physician [id number] ROSE BASS MD [facility] [address] [place] [address] 05/01/2022 08:17:48 05/01/2022 15:37:51 Inflammatory polyarthropathy 778683922 M06.4 76- year-old with polyarthri tis Seronegati ve process. Fairly stable. On anc e prednisone 5 mg alternate with 10 [...] ow-up in 6 months Polymyalgi a rheumatica 47481845 M35.3 76-year-ol d female with chronic polymyalgi a rheumatica . Clinically stable. No proximal muscle pain or weakness reported.N o stigmata for giant cell arteritis. Last ESR 04/29/2021 9 mm/h Repeat the ESR. Follow with eye examinatio n once a year. Long-term drug therapy 605562878 Z79.899 Must follow-up with an eye examinatio n every year. Bone density test every 2 years. Maintain calcium vitamin D. She typically follows the bone density test with her PCP. She will get us a copy. [id number] ROSE BASS MD [facility] [address] [place] [address] 10/24/2022 13:59:01 10/25/2022 14:30:30 Inflammatory polyarthropathy 774766188 M06.4 76- year-old with polyarthri tisSeroneg ative [...] renal toxicity. Refills given Polymyalgi a rheumatica 81496272 M35.3 76-year-ol d female with chronic polymyalgi a rheumatica .From the PMR point of view looks stable.No proximal muscle pain or weakness reported.N o stigmata for giant cell arteritis. Last ESR 04/29/2021 9 mm/h Repeat ESR today Long-term drug therapy 251182098 Z79.899 Must follow-up with an eye examinatio n every year While taking the hydroxychl oroquine. On account of corticoste roid use, osteoporos is, osteonecro sis risk were reviewed. Weight gain diabetes also reviewed. Must follow with a bone density every 2 years [id number] ROSE BASS MD [facility] [address] [place] [address] 04/03/2023 13:22:18 04/05/2023 04:49:45 Inflammatory polyarthropathy 350577123 M06.4 77- year-old with polyarthri tisSeroneg ative [...] toxicity. Follow-up 6 months Polymyalgi a rheumatica 76859162 M35.3 77-year-ol d female with chronic polymyalgi [...] prednisone resulted in flare. Long-term drug therapy 114707045 Z79.899 Must follow-up with an eye examinatio n every year While taking the hydroxychl oroquine. On account of corticoste roid use, osteoporos is, osteonecro sis risk were reviewed. Weight gain diabetes also reviewed. Must follow with a bone density every 2 years [id number] ROSE BASS MD [facility] [address] [place] [address] 10/25/2023 09:56:13 10/26/2023 15:37:58 Inflammatory polyarthropathy 032806595 M06.4 77- year-old with polyarthri tisSeroneg ative [...] toxicity. Follow-up 3 months Polymyalgi a rheumatica 95250262 M35.3 77-year-ol d female with chronic polymyalgi [...] her current treatment plan. Long-term drug therapy 610590566 Z79.899 Must follow-up with an eye examinatio n every year While taking the hydroxychl oroquine. On account of corticoste roid use, osteoporos is, osteonecro sis risk were reviewed. Weight gain diabetes also reviewed. Must follow with a bone density every 2 years [id number] ROSE BASS MD [facility] [address] [place] [address] 01/21/2024 10:13:42 01/22/2024 04:18:34 Inflammatory polyarthropathy 575160256 M06.4 78- year-old with polyarthri tisSeroneg ative [...] toxicity. Follow-up 3 months Polymyalgi a rheumatica 81242683 M35.3 78-year-ol d female with chronic polymyalgi [...] CRP 10/25/2023 is normal Long-term drug therapy 221323463 Z79.899 Must follow-up with an eye examinatio n every year While taking the hydroxychl oroquine. On account of corticoste roid use, osteoporos is, osteonecro sis risk were reviewed. Weight gain diabetes also reviewed. Must follow with a bone density every 2 years Fibromyalgia 514483236 M 79.7 Symptomati c with diffuse fibromyalg ia tender points. Discussed the diagnosis of fibromyalg ia. Educated about the disease. On account of fibromyalg ia pain, suggested the addition of cymbalta. Side effect profile reviewed. Prescripti on sent. Breast reduction discussed. Follow up in March 2024. [id number] ROSE BASS MD [facility] [address] [place] [address] 05/07/2024 09:49:06 05/08/2024 04:38:13 Inflammatory polyarthropathy 007555004 M06.4 78- year-old with polyarthri tisSeroneg ative [...] toxicity. Follow-up 3 months Polymyalgi a rheumatica 57564626 M35.3 78-year-ol d female with chronic polymyalgi [...] ESR and CRP today. Long-term drug therapy 909389010 Z79.899 Must follow-up with an eye examinatio n every year While taking the hydroxychl oroquine. On account of corticoste roid use, osteoporos is, osteonecro sis risk were reviewed. Weight gain diabetes also reviewed. Must follow with a bone density every 2 yearsTB and hep c test today. Fibromyalgia 900159235 M 79.7 Symptomati c with diffuse fibromyalg ia tender points. Discussed the diagnosis of fibromyalg ia. Educated about the disease. On account of fibromyalg ia pain, suggested the addition of cymbalta. Side effect profile reviewed. Prescripti on sent. Breast reduction discussed. Follow up in March 2024. [id number] ROSE BASS MD [facility] [address] [place] [address] 10/28/2024 13:15:11 10/29/2024 09:41:27 Inflammatory polyarthropathy 491695716 M06.4 78- year-old with polyarthri tisSeroneg ative [...] toxicity. Follow-up 3 months Polymyalgi a rheumatica 28003667 M35.3 78-year-ol d female with chronic polymyalgi a rheumatica .Asymptoma tic. On combinatio n of prednisone and hydroxychl oroquine as detailed above. We have talked about Kevzara. She would rather hold off on it. Long-term drug therapy 273634210 Z79.899 Must follow-up with an eye examinatio n every year While taking the hydroxychl oroquine. On account of corticoste roid use, osteoporos is, osteonecro sis risk were reviewed. Weight gain diabetes also reviewed. Must follow with a bone density every 2 yearsTB and hep c test today. Fibromyalgia 539155751 M 79.7 Clinically stable. No complaints . Pains are well-contr olled. Continue with gabapentin 100 mg every 8 hours Follow-up in 3 months [id number] ROSE BASS MD [facility] [address] [place] [address] 01/27/2025 10:22:01 01/28/2025 04:37:03 Inflammatory polyarthropathy 399961341 M06.4 78- year-old with polyarthri tisSeroneg ative [...] toxicity. Follow-up 3 months Polymyalgi a rheumatica 01650851 M35.3 78-year-ol d female with chronic polymyalgi [...] hold off on it. Long-term drug therapy 322848082 Z79.899 Must follow-up with an eye examinatio n every year While taking the hydroxychl oroquine. On account of corticoste roid use, osteoporos is, osteonecro sis risk were reviewed. Weight gain diabetes also reviewed. Must follow with a bone density every 2 years Will repeat the labs on her visit in April. Fibromyalgia 177718196 M 79.7 Clinically stable. No complaints . [...] Name 07/31/2025 1 [place] Andry Culp [id number] Andry Culp 05/16/2024 2 [employer] Andry Culp [id number] Andry Culp 07/31/2025 2 [employer] (MEDICARE SUPPLEMENT) PLAN G Andry Culp [id number] Andry Culp Notes Date Note Type Note [...] headaches or jaw pain. ROSE BASS MD [address] [place], [address], [facility] 10/25/2023 10:45:26 01/21/2024 text/html ROS as noted [...] headaches or jaw pain. ROSE BASS MD [address] [place] [address], [address], [facility] 01/21/2024 16:55:07 05/07/2024 text/html ROS as noted [...] headaches or jaw pain. ROSE BASS MD [address] [place] [address], [address], [facility] 05/07/2024 16:46:44 10/28/2024 text/html ROS as noted in the HPI Visit today is being conducted via telehealth using both audio/video. The patient confirms that he/she is physically located in [place] at the time of this visit. Patient [...] headaches or jaw pain. RO[facility]ASS [facility] [place], [address], [facility] 10/28/2024 13:30:53 01/27/2025 text/html ROS as noted [...] pain. No vision changes. ROSE BASS MD [facility] [place], [address], [facility] 01/27/2025 11:01:52 OBGyn Episode No OBEpisode recorded.
[2025-09-16 09:20] VITALS: BP 110/76; PULSE 73; RESP 16
[2025-09-16] MEDS: ISOTOPE MYOVIEW (PER STUDY) 1 DOSE IV (10:52)
[2025-09-16] MEDS: SODIUM CHLORIDE 0.9% 10ML SYR (RAD ONLY) 10 ML IV ×2 (10:52)
--- OUTSIDE RECORDS SUMMARY | 2025-11-04 19:00 | XMS_ITS | Clinical Summary ---
Author Organization Unknown Care Team Providers Care Beef Ribber Name Role Phone BETH LEMOS, EMA Unavailable Unavailable KENDALL RN, NICOLE Unavailable Unavailable ANGIE UNION REPRESENTATIVE, JOSE M Unavailable Unavailable SHAUNNA PT, BHAVANA Unavailable Unavailable SUNITHA DIRECTOR SUPPLIER QUALITY, RIANA Unavailable Unavaillauren CARRION OT, ANN Unavailable Unavailable RENAE EDGER MACHINE SETTER/ISBELL, MARIEA Unavailable Unavail able Payers Payer Name Policy Type Policy Number Effective Date Expira tion Date MEDICARE.[facility] [id number] Problems Condition Name Condition Details Condition Category Status Onset Date Resolution Date Last Treatment Date Treating Clinician Comments CODING TO BE COMPLETED AFTER CLINICAL DOCUMENTATIO N REVIEW Active 2024-10 00:00: 00 RHEUMATOID ARTHRITIS, UNSPECIFIED Active 2024-10 00:00: 00 HYPERTENSIVE HEART DISEASE WITH HEART FAILURE Active 2024-10 00:00: 00 HEART FAILURE, UNSPECIFIED Active 2024-10 00:00: 00 ATHSCL HEART DISEASE OF [place] CORONARY ARTERY W/O ANG PCTRS Active 2024-10 [...] HISTORY OF FALLING Active 2024-10 00:00: 00 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 RN TO OBSERVE AND ASSESS, UNION REPRESENTATIVE/STOCK DIGGER TO OBSERVE FOR RISK FOR FALLS AND INSTRUCT IN FALL PREVENTION, HOME SAFETY, MEDICATION MANAGEMENT, INFECTION PREVENTION, AND NUTRITION MANAGEMENT. RN/UNION REPRESENTATIVE/STOCK DIGGER NURSE MAY PERFORM O2 SATURATION LEVEL ON ADMISSION AND PRN FOR RN TO ASSESS/UNION REPRESENTATIVE TO OBSERVE PATIENT, WITH NOTIFICATION TO THE PHYSICIAN IF SATURATION IS 90% IN THE ABSENCE OF MORE SPECIFIC PARAMETERS FROM THE PHYSICIAN. AGENCY MAY PERFORM A RESUMPTION OF CARE VISIT FOLLOWING ANY HOSPITAL ADMISSION. RN/UNION REPRESENTATIVE/STOCK DIGGER TO MONITOR CO-MORBID CONDITIONS LISTED ON THE PLAN OF CARE AND ANY NEW CONDITIONS THAT PRESENT THEMSELVES DURING THIS EPISODE TO IDENTIFY CHANGES AND INTERVENE TO MINIMIZE COMPLICATIONS. [code = RN TO OBSERVE, ASSESS, EVALUATE, AND DEVELOP AN INDIVIDUALIZED PLAN OF CARE. AGENCY MAY ACCEPT ORDERS FROM CONSULTING PHYSICIANS , , , DR.MARIA BROWN, DR.RUDY SEPULVEDA. RN TO OBSERVE AND ASSESS, UNION REPRESENTATIVE/STOCK DIGGER TO OBSERVE FOR RISK FOR FALLS AND INSTRUCT IN FALL PREVENTION, HOME SAFETY, MEDICATION MANAGEMENT, INFECTION PREVENTION, AND NUTRITION MANAGEMENT. RN/UNION REPRESENTATIVE/STOCK DIGGER NURSE MAY PERFORM O2 SATURATION LEVEL ON ADMISSION AND PRN FOR RN TO ASSESS/UNION REPRESENTATIVE TO OBSERVE PATIENT, WITH NOTIFICATION TO THE PHYSICIAN IF SATURATION IS 90% IN THE ABSENCE OF MORE SPECIFIC PARAMETERS FROM THE PHYSICIAN. AGENCY MAY PERFORM A RESUMPTION OF CARE VISIT FOLLOWING ANY HOSPITAL ADMISSION. RN/UNION REPRESENTATIVE/STOCK DIGGER TO MONITOR CO-MORBID CONDITIONS LISTED ON THE PLAN OF CARE AND ANY NEW CONDITIONS THAT PRESENT THEMSELVES DURING THIS EPISODE TO IDENTIFY CHANGES AND INTERVENE TO MINIMIZE COMPLICATIONS.] Future Scheduled Test MEDICATION MANAGEMENT; RN/UNION REPRESENTATIVE/STOCK DIGGER TO REVIEW MEDICATIONS FOR INTERACTIONS, EFFECTIVENESS OF DRUG THERAPY, AND SIGNS/SYMPTOMS OF ADVERSE REACTIONS. MAY INSTRUCT AND REINFORCE MEDICATION TEACHING RELATED TO THE USE OF MEDICATIONS, DOSAGE, FREQUENCY, PURPOSE, SIDE EFFECTS, AND TO REPORT COMPLICATIONS. [code = MEDICATION MANAGEMENT; RN/UNION REPRESENTATIVE/STOCK DIGGER TO REVIEW MEDICATIONS FOR INTERACTIONS, EFFECTIVENESS OF DRUG THERAPY, AND SIGNS/SYMPTOMS OF ADVERSE REACTIONS. MAY INSTRUCT AND REINFORCE MEDICATION TEACHING RELATED TO THE USE OF MEDICATIONS, DOSAGE, FREQUENCY, PURPOSE, SIDE EFFECTS, AND TO REPORT COMPLICATIONS.] Future Scheduled Test CARDIOVASC ULAR SYSTEM; RN TO ASSESS/TEACH, UNION REPRESENTATIVE/STOCK DIGGER TO OBSERVE/TEACH RELATED TO ALTERED CARDIOVASCULAR STATUS TO MINIMIZE COMPLICATIONS AND REDUCE HOSPITALIZATION. [code = CARDIOVASCULAR SYSTEM; RN TO ASSESS/TEACH, UNION REPRESENTATIVE/STOCK DIGGER TO OBSERVE/TEACH RELATED TO ALTERED CARDIOVASCULAR STATUS TO MINIMIZE COMPLICATIONS AND REDUCE HOSPITALIZATION.] Future Scheduled Test HEART FAIL URE; RN TO ASSESS/TEACH, UNION REPRESENTATIVE/STOCK DIGGER TO OBSERVE/TEACH CARDIOPULMONARY SYSTEM TO IDENTIFY SIGNS [...] [code = HEART FAILURE; RN TO ASSESS/TEACH, UNION REPRESENTATIVE/STOCK DIGGER TO OBSERVE/TEACH CARDIOPULMONARY SYSTEM TO IDENTIFY SIGNS [...] ACUTE MYOC ARDIAL INFARCT; RN TO ASSESS/TEACH, UNION REPRESENTATIVE/STOCK DIGGER TO OBSERVE/TEACH WARNING SIGNS AND SYMPTOMS TO AVOID HOSPITALIZATION. [code = ACUTE MYOCARDIAL INFARCT; RN TO ASSESS/TEACH, UNION REPRESENTATIVE/STOCK DIGGER TO OBSERVE/TEACH WARNING SIGNS AND SYMPTOMS TO AVOID HOSPITALIZATION.] Future Scheduled Test PHYSICAL T HERAPIST TO EVALUATE FOR STRENGTH, GAIT, ENDURANCE,BALANCE [code = PHYSICAL THERAPIST TO EVALUATE FOR STRENGTH, GAIT, ENDURANCE,BALANCE] Future Scheduled Test OCCUPATION AL THERAPIST TO EVALUATE FOR ADLS AND IADLS [code = OCCUPATIONAL THERAPIST TO EVALUATE FOR ADLS AND IADLS] Future Scheduled Test PRN VISITS ; NUMBER OF RN/UNION REPRESENTATIVE/STOCK DIGGER VISITS: 2 RN/UNION REPRESENTATIVE/STOCK DIGGER TO PERFORM: EVALUATE FOR FLUID OVERLOAD FOR THE FOLLOWING REASONS: RECENT DIAGNOSIS OF CHF [code = PRN VISITS; NUMBER OF RN/UNION REPRESENTATIVE/STOCK DIGGER VISITS: 2 RN/UNION REPRESENTATIVE/STOCK DIGGER TO PERFORM: EVALUATE FOR FLUID OVERLOAD FOR THE FOLLOWING REASONS: RECENT DIAGNOSIS OF CHF] Future Scheduled Test PAIN MANAG EMENT; RN TO ASSESS AND TEACH, STOCK DIGGER/UNION REPRESENTATIVE TO OBSERVE AND TEACH AND PROVIDE EDUCATION ON PAIN MANAGEMENT TECHNIQUES. [code = PAIN MANAGEMENT; RN TO ASSESS AND TEACH, STOCK DIGGER/UNION REPRESENTATIVE TO OBSERVE AND TEACH AND PROVIDE EDUCATION [...] HOME PERSONAL HYGIENE/GROOMING (OT/AMALIA) BATHING/SHOWERING (OT/AMALIA) DRESSING (OT/EDGER MACHINE SETTER) ACTIVITIES OF DAILY LIVING (OT/EDGER MACHINE SETTER) TOILET TRANSFER (OT/AMALIA) BATH/SHOWER TRANSFER (OT/AMALIA) THERAPEUTIC EXERCISE (OT/AMALIA) OT/EDGER MACHINE SETTER MAY EDUCATE ON PAIN MANAGEMENT CLINICALLY INDICATED, INCLUDING NON-PHARMACOLOGICAL PAIN REDUCTION TECHNIQUES AND USE OF CRYOTHERAPY OR HEAT UP TO 20 MIN AT A TIME FOR PAIN MANAGEMENT TO MAXIMIZE [code = AGENCY MAY PERFORM A RESUMPTION OF CARE VISIT FOLLOWING ANY HOSPITAL ADMISSION. OT TO EVALUATE, OBSERVE / ASSESS, AND MONITOR, EDGER MACHINE SETTER TO OBSERVE AND MONITOR, PROVIDE SKILLED THERAPEUTIC INTERVENTION, ACTIVITY, EDUCATION, AND TRAINING TO ADDRESS ADLS/IADLS, ADAPTIVE EQUIPMENT, STRENGTHENING, BALANCE, AND FUNCTIONAL TRANSFERS TO MAXIMIZE SAFETY AND FUNCTIONAL INDEPENDENCE IN HOME PERSONAL HYGIENE/GROOMING (OT/EDGER MACHINE SETTER) BATHING/SHOWERING (OT/AMALIA) DRESSING (OT/EDGER MACHINE SETTER) ACTIVITIES OF DAILY LIVING (OT/AMALIA) TOILET TRANSFER (OT/EDGER MACHINE SETTER) BATH/SHOWER TRANSFER (OT/AMALIA) THERAPEUTIC EXERCISE (OT/AMALIA) OT/EDGER MACHINE SETTER MAY EDUCATE ON PAIN MANAGEMENT CLINICALLY INDICATED, [...] BUE FROM 8/10 TO 0/10 WITHIN WEEKS Progress Notes Progress Notes <paragraph>[Visit Date: 2024 by JOSE M ADAMS LPN]:</paragraph><paragraph>PATIENT SITTING ON COUCH, MOOD PLEASANT. DISCUSSED PAGE 1 IN HEART ATTACK BOOKLET. PATIENT STATES THAT HER DAUGHTER WAS SUPPOSED TO NOTIFY THE OFFICE THAT SHE WANTS NO VISITS UNTIL AFTER THANKSGIVING, STATES HER DAUGHTER MUST HAVE FORGOTTEN BC SHE BABYSITS A SET OF TWINS. PATIENT DOES NOT WISH TO CONTINUE THIS VISIT. VS WNL. DENIES PAIN OR DISCOMFORT. WEIGHT IS STABLE. PATIENT IS AWARE TO CALL HEALTH INSURANCE SPECIALIST WITH ANY QUESTIONS OR CONCERNS. VISIT ENDED.</paragraph> Encounters Start Date/Time End Date/Time Encounter Type Admission Type Attending [facility] [place] Facility Care Department Encounter ID Discharge Date Discharge Status Discharge Condition Discharge Reason Percent Goals Met 2025-09-07 00:00:00 2025-11-05 00:00:00 Outpatient NICOLE ARREOLA [facility] [id number] [phone]
== END 2025-09-16 23:59 | disposition home or self-care (01) ==
LOC: RAD 07:51
PROVIDERS: PCP Family Medicine; Visit Provider Physician Assistant
DX: I49.1 Atrial premature depolarization (principal); I49.3 Ventricular premature depolarization; I25.10 Atherosclerotic heart disease of native coronary artery without angina pectoris; I34.0 Nonrheumatic mitral (valve) insufficiency; I11.0 Hypertensive heart disease with heart failure; I50.9 Heart failure, unspecified; E89.0 Postprocedural hypothyroidism; R94.39 Abnormal result of other cardiovascular function study
CPT/HCPCS: 78452; 93017; 93018; A9502; J2785

== ENCOUNTER 2025-09-21 08:45 | Observation (INO) | payer MEDICARE, OTHER, SELFPAY ==
--- OUTSIDE RECORDS SUMMARY | 2025-05-07 10:45 | XMS_ITS ---
Author Organization [facility] Address [address] [place] [id number] Care Team Providers Care Thermometer Production Worker Name Role Phone Raul Torres Primary Care Provider [phone] Allergies Allergen (clinical drug ingredient) Drug/Non Drug [...] (substance) Sulfa Antibiotics nausea Drug Allergy Active REASON FOR VISIT cortisone shot Medications Medication SIG (Take, Route, Frequency, Duration) Notes Start Date End Date Status ZyrTEC Allergy 10 MG 1 tab(s) orally onc e a day Not-Taking Benzonatate 100 MG 1 capsule as needed Orally Three times a day 04/16/2025 Not-Taking Meclizine HCl 12.5 MG 1 tab(s) Orally th ree times a day as needed; Duration: 30 day(s) 11/13/2024 Not-Taking Senna S 8.6-50 MG 2 tablet as needed Orally Twice a day Not-Taking Amoxicillin 500 MG 1 tablet Orally Thre e times a day 04/16/2025 Not-Taking Pravastatin Sodium 40 MG 1 tablet Orally Once a day Active Chlorthalidone 12.5 MG 1 tablet in the morning with food Orally daily; Duration: 90 days Active Cyclobenzaprine HCl 5 MG 1 tab 3 times a day As needed Active Ondansetron HCl 4 MG 1 tablet Orally 3 times a day prn 01/24/2024 Active Potassium Chloride Cathy ER 10 MEQ 1 tablet with food Orally Twice a day; Duration: 90 days Active Lidocaine 5 % 1 patch remove after 12 hours Externally Once a day 02/17/2025 Active Hyoscyamine Sulfate 0.125 MG 1 tab(s) Orally four times a day as needed for diarrhea 11/13/2024 Active Tamsulosin HCl 0.4 MG 1 capsule Orally O nce a day Active Levothyroxine Sodium 112 MCG 1 tablet in the morning on an empty stomach Orally Once a day; Duration: 90 days Active traMADol HCl 50 MG 1 tab(s) Orally q6h prn 08/01/2024 Active Acetaminophen 500 MG 1 capsule as needed Orally every 6 hrs prn Active predniSONE 5 MG 1 tab orally once a day Active Aspirin Adult Low Dose 81 MG 1 tab(s) orally once a day Active Carvedilol 12.5 MG 1 tab(s) Orally 2 times a day Active Melatonin 3 MG 1 tablet in the evening at HS Active Plaquenil 200 MG 1 tab(s) orally daily Active Vital Signs Weight 147.0 lbs 05/07/2025 Blood pressure systolic 120 mm Hg 05/07/20 25 Blood pressure diastolic 72 mm Hg 025 Heart Rate 77 /min 05/07/2025 Height 65 in 05/07/2025 BMI 24.46 kg/m2 05/07/2025 Encounters Encounter Location Date Provider Diagnosis [facility] [address] [phone] 05/07/2025 Raul Torres Inflammatory polyarthropathy M06.4 Assessments Encounter Date Diagnosis (ICD Code) Assessment Notes Treatment Notes Treatment Clinical Notes Section Notes 05/07/2025 Inflammatory polyarthropathy (ICD-10 - M06.4) Plan Of Treatment Medication Medication Name Sig Start Date Stop Date Notes predniSONE 5 MG 1 tab orally once a day Plaquenil 200 MG 1 tab(s) orally daily Next Appt Details Follow Up: prn, Reason: Medications Administered Medication Instructions Date of Administration Dosage Notes depo medrol 80 mg 05/07/2025 1.5 mL Progress Notes * HAYDEN HUYNH: 7 (79 yo F)Acc No.[id number]:05/07/2025 Progress Notes Patient: KWASI PANIAGUA Provider: Raul Torres M.D. :1945 A ge:79 Y S ex:Female Date:05/07/2025 Address:[address], [place], [id number] Subjective: * Chief Complaints: * 1 . Cortisone shot. * HPI: R heumatology: She returns with a flare of joint pain in multiple joints, specifically her hands, elbows, shoulders, hips, and knees. She continues on daily prednisone and Plaquenil per her baked goods stock clerk. * ROS: D ERMATOLOGY: no R jodi. n o H bere. G ASTROENTEROLOGY: Nausea y es. n o V omiting. n o D iarrhea.? U ROLOGY: no D ifficulty urinating. n o B lood in urine. * Medical History: h yperlipidemia-followed by Dr. Arrington, Hypertension, Hypothyroidism/goiter, Kidney stones, Allergic rhinitis, ASCVD: [place] - 09/2013-followed by Dr. Arrington q 6 months, Cataracts, Hyperuricemia, Inflammatory arthritis - Dr. Cheng, polymyalgia rheumatica - Dr. Cheng, Moderna Covid vaccine x2 Oct/Nov 2020. * Surgical History: T hyroidectomy/Goiter removal 1999, Back 2001, Total Hysterectomy 1992, Tonsillectomy child, Cardiac Stent Placed-[facility]-Dr Arrington. Dr. Santo 10/19/2013, Cataract 10/2017. * Hospitalization/Major Diagno stic Procedure: k idney stones 1992, Heart Attack- [place] 09/2013, Facial Pain, Sinus Blockage- [facility] 04/24/2018, Itching, Swelling in Hands- [facility] 10/21/2018, Multiple rib and pelvic fractures; hyponatremia; rheumatoid arthritis; ASCVD- 06/30-, Dehydration, Failure to Thrive, Acute Urinary Retention- [facility] 07/14-, H : fall with multiple FX ribs on [...] ,determination:. Alcohol: No. * Medications: T aking Acetaminophen 500 MG Capsule 1 capsule as [...] daily , Taking predniSONE 5 MG Tablet 1 tab orally once a day , Taking Lidocaine 5 % Patch 1 patch remove after 12 hours Externally Once a day , Taking Tamsulosin HCl 0.4 MG Capsule 1 capsule Orally Once a day , Taking Hyoscyamine Sulfate 0.125 MG Tablet 1 tab(s) Orally four times a day as needed for diarrhea , Taking Levothyroxine Sodium 112 MCG Tablet 1 tablet in the morning on an empty stomach Orally Once a day , Taking Pravastatin Sodium 40 MG Tablet 1 tablet Orally Once a day , Taking Cyclobenzaprine HCl 5 MG Tablet 1 tab 3 times a day As needed, Taking Chlorthalidone 12.5 MG Tablet 1 tablet in the morning with food Orally daily , Taking Ondansetron HCl 4 MG Tablet 1 tablet Orally 3 times a day prn , Taking Potassium Chloride Cathy ER 10 MEQ Tablet Extended Release 1 tablet with food Orally Twice a day , Not-Taking Amoxicillin 500 MG Tablet 1 tablet Orally Three times a day , Not-Taking Benzonatate 100 MG Capsule 1 capsule as needed Orally Three times a day , Not-Taking ZyrTEC Allergy 10 MG Tablet 1 tab(s) orally once a day , Not-Taking Senna S 8.6-50 MG Tablet 2 tablet as needed Orally [...] Percocet, Lortab. Objective: * Vitals: W t: 147.0, Temp: 98.4, BP: 120/72, HR: 77, Nurse: christal, Ht: 65, BMI:24.46. * Examination: G eneral Examination: General Appearance: S he ambulates with a walker. Affect is a bit more subdued. H eart: R SR. L ungs: c lear to auscultation. E xtremities: C hronic deformity with mild swelling of the joints of both hands. . ? Assessment: * Assessment: 1. I nflammatory polyarthropathy - M06.4 (Primary) Plan: * Treatment: * Therapeutic Injections: depo medrol 80 mg : 1.5 mL (Route: Intramuscular) given by CHRISTAL Alvarez on right gluteus (Inflammatory polyarthropathy) * Procedure Codes: G 2211 Complex e/m visit add on, J1010 Inj, methylpred acetate 1 mg, 11292 ADMINISTRATION OF INJECTION * Follow Up: p rn * Images: Billing Information: * Visit Code: 05717 Office Visit, Est Pt., Level 3. Modifiers: 25 * Procedure Codes: G2211 Complex e/m visit add on. J1010 Inj, methylpred acetate 1 mg. 68292 ADMINISTRATION OF INJECTION. * Electronic signature of Raul Torres MD on 09/21/2025 at 04:28 PM EST Sign off status: Pending * Provider: Ralu Torres M.D. Date: 0 05/07/2025 Generated for Jerry panda/Kerwin/Arthur on: 1 11/22/2024 04:28 PM EST History and Physical Notes * HPI (History of Present Illness) Category Sub-Category Detail Notes Category Not es Rheumatology She returns wit h a flare of joint pain in multiple joints, specifically her hands, elbows, shoulders, hips, and knees. She continues on daily prednisone and Plaquenil per her baked goods stock clerk. Examination Category Sub-Category Detail Notes Category Not es General Examination Heart: RSR Lungs: clear to auscultatio n Extremities: Chronic deformity wi th mild swelling of the joints of both hands. General Appearance: She ambulates with a walker. Affect is a bit more subdued
--- OUTSIDE RECORDS SUMMARY | 2025-05-19 05:00 | XMS_ITS ---
Author Organization [facility] Address [address] [facility] [address] [place] [id number] Care Team Providers Care Manager Qa Name Role Phone aRul Torres Primary Care Provider [phone] Allergies Allergen (clinical drug ingredient) Drug/Non Drug [...] cl 86, gluc 102 Performing Lab: Notes/Report: CLIA: [id number] Gilmer Lowe MD, Mechanical Cad Drafter [address] [facility] , [address], [place] [address] Test performed by [employer], [facility] Sodium 122 135-145 mmol/L Potassium 4.2 3.5-5.3 [...] [address] [place] [id number] 05/19/2025 Raul Torres Hyponatremia E87.1 ; Muscle [...] ge:79 Y S ex:Female Date:05/19/2025 Address:[address] [facility], [place], [id number] Subjective: * Chief Complaints: * 1 . [...] Hypertension, Hypothyroidism/goiter, Kidney stones, Allergic rhinitis, ASCVD: [place] - 09/2013-followed by Dr. Arrington q 6 months, Cataracts, Hyperuricemia, Inflammatory arthritis - Dr. Cheng, polymyalgia rheumatica - Dr. Cheng, Moderna Covid vaccine x2 Oct/Nov 2020. * Surgical History: T hyroidectomy/Goiter removal 1999, Back 2001, Total Hysterectomy 1992, Tonsillectomy child, Cardiac Stent Placed-[facility]-Dr Arrington. Dr. Santo 10/19/2013, Cataract 10/2017. * Hospitalization/Major Diagno stic Procedure: k idney stones 1992, Heart Attack- [place] 09/2013, Facial Pain, Sinus Blockage- [facility] 04/24/2018, Itching, Swelling in Hands- [facility] 10/21/2018, Multiple rib and pelvic fractures; hyponatremia; rheumatoid arthritis; ASCVD- 06/30-, Dehydration, Failure to Thrive, Acute Urinary Retention- [facility] 07/14-, [facility] : fall with multiple FX [...] uscle weakness - M62.81 3 . B [place] 23.0-23.9, adult - Z68.23 Plan: * Treatment: [...] * Images: Billing Information: * Visit Code: 39454 Office Visit, Est Pt., Level 3. * Procedure Codes: G2211 Complex e/m visit add on. 1036F TOBACCO NON-USER. G8420 BMI<30 AND >=22 CALC & DOCU. G8783 BP SCR PRFRM RCMDD DEFIND SCR INTVL. G8752 MOST RECENT SYSTOLIC BP < 140MM HG. G8754 MOST RECENT DIASTOLIC BP < 90MM HG. * Electronic signature of Raul Torres MD on 09/21/2025 at 04:25 PM EST Sign off status: Pending * Provider: Raul Torres M.D. Date: 0 05/19/2025 Generated for Jerry panda/Kerwin/Arthur on: 1 11/22/2024 04:25 PM EST History and Physical Notes * [...]
--- OUTSIDE RECORDS SUMMARY | 2025-05-26 09:45 | XMS_ITS ---
Author Organization [facility] Address [address] [place] [phone] Care Team Providers Care Television Mechanic Name Role Phone Raul Torres Primary Care [...] Reason For Referral Reason Dr. Lee at [facility] for hyponatremia/ possible adrenal insufficiency Diagnosis 1 Hyponatremia (E87.1) Referral Organization Jared Referring Provider First Name Raul Lopez Referring Provider Last Name Melissa Referring Provider [facility] ctice Referred Provider Endocrinology, . Referred Provider Specialty Endocrinolog y General Notes Keira Burger 2024 10:04:16 AM > faxed to [facility] Endo Referral Priority Routine Reason memory loss/ confusi on Diagnosis 1 Memory loss (R41.3) Referral Organization Jraed Referring Provider First Name Raul Lopez Referring Provider Last Name Melissa Referring Provider [facility] ctice Referred Provider Radha Ignacio Referred Provider Specialty Neurology General Notes Keira Burger 2024 09:55:39 AM > faxed to [facility] Neurology, Keira Burger 05/29/2025 10:50:10 AM [...] W/U Status Risk Notes Problem Memory loss (86880311) Memory loss (R41.3) Active confirmed Vital Signs Weight 146.2 lbs 05/26/2025 Blood pressure systolic 110 mm Hg 05/26/20 25 Blood pressure diastolic 76 mm Hg 025 Heart Rate 72 /min 05/26/2025 Height 65 in 05/26/2025 BMI 24.33 kg/m2 05/26/2025 Encounters Encounter Location Date Provider Diagnosis [facility] [address] [place] [phone] 05/26/2025 Raul Torres Hyponatremia E87.1 ; Memory loss R41.3 and BMI 24.0-24.9, adult Z68.24 Assessments Encounter Date Diagnosis (ICD Code) Assessment Notes Treatment Notes Treatment Clinical Notes Section Notes 05/26/2025 Hyponatremia (ICD-10 - E87.1) 05/26/2025 Memory loss (ICD-10 - R41.3) 05/26/2025 BMI 24.0-24.9, adult (ICD-10 - Z68.24) Plan Of Treatment Referrals Referral Date Details 05/26/2025 05/26/2025, Dr. Sophie pineda at [facility] for hyponatremia/ possible adrenal insufficiency, . Endocrinology 05/26/2025 05/26/2025, memory l oss/ confusion, Radha Ignacio Next Appt Details Follow Up: after consultatio n, Reason: Progress Notes * ANDRY HUYNHDOB: 7 (79 yo F)Acc No.[id number]:05/26/2025 Progress Notes Patient: ANDRY PANIAGUA Provider: Raul Torres M.D. :1945 A ge:79 Y S ex:Female Date:05/26/2025 Address:[address] [place] [address], [place], [id number] Subjective: * Chief Complaints: * 1 . [...] Hypertension, Hypothyroidism/goiter, Kidney stones, Allergic rhinitis, ASCVD: [place] - 09/2013-followed by Dr. Arrington q 6 [...] Procedure: k idney stones 1992, Heart Attack- [place] 09/2013, Facial Pain, Sinus Blockage- [facility] ER 04/24/2018, Itching, Swelling in Hands- [facility] ER 10/21/2018, Multiple rib and pelvic fractures; hyponatremia; rheumatoid arthritis; ASCVD- 06/30-, Dehydration, Failure to Thrive, Acute Urinary Retention- [facility] 07/14-, [facility] : fall with multiple FX ribs [...] M yvette loss - R41.3 ?3. B [place] 24.0-24.9, adult - Z68.24 Plan: * Treatment: [...] * Images: Billing Information: * Visit Code: 60628 Office Visit, Est Pt., Level 3. * [...] 05/26/2025 Generated for Jerry panda/Kerwin/eTjovanismitting on: 1 11/22/2024 04:25 PM EST History and Physical Notes * Examination [...] Torres Endocrinology, . Dr. Edy matos at [facility] for hyponatremia/ possible adrenal insufficiency 05/26/2025 Raul Torres Maria memory los s/ confusion
--- OUTSIDE RECORDS SUMMARY | 2025-05-28 03:20 | XMS_ITS ---
Author Organization [facility] Address 1210 [facility] [address] [place], [place] [phone] Care Team Providers Care Lightning Rod Erector Name Role Phone Raul Torres Primary Care Provider Results Component Value Reference Range Notes Urinalysis [...] Status Risk Notes Problem Altered mental status (774904072) Altered mental state (R41.82) Active confirmed Encounters Encounter Location Date Provider Diagnosis [facility] [address] [place] [phone] 05/28/2025 Raul Torres Altered mental state R41.82 Assessments Encounter Date Diagnosis (ICD Code) Assessment Notes Treatment Notes Treatment Clinical Notes Section Notes 05/28/2025 Altered mental state (ICD-10 - R41.82) Plan Of Treatment No Information Progress Notes * KWASI HUYNHDOB: 7 (79 yo F)Acc No.[id number]:05/28/2025 Patient: KWASI PANIAGUA Provider: Raul Torres M.D. :1945 A ge:79 Y S ex:Female Date:05/28/2025 Address:[address], [id number] Subjective: * Chief Complaints: * 1 . [...] Information: * Visit Code: * Procedure Codes: 41123 Urinalysis, no micro. * Electronic signature of Raul Torres MD on 09/21/2025 at 04:26 PM EST Sign off status: Pending * Provider: Raul Torres M.D. Date: 0 05/28/2025 Generated for Jerry panda/Kerwin/Mikeransmitting on: 11/22/2024 04:26 PM EST
--- OUTSIDE RECORDS SUMMARY | 2025-06-16 11:30 | XMS_ITS ---
Author Organization [facility] [place] Address [address] [facility] [address] [place] [phone] Care Team Providers Care Plant Production Manager Name Role Phone Raul Torres Primary Care Provider [phone] Allergies Allergen (clinical drug ingredient) Drug/Non Drug [...] as needed for diarrhea Active Vital Signs Weight 152.2 lbs 06/16/2025 Blood pressure systolic 114 mm Hg 06/16/20 25 Blood pressure diastolic 70 mm Hg 025 Heart Rate 76 /min 06/16/2025 Height 65 in 06/16/2025 BMI 25.32 kg/m2 06/16/2025 Encounters Encounter Location Date Provider Diagnosis [facility] [address] [facility] [address] [place] [address], [place] [phone] 06/16/2025 Raul Torres Rheumatoid arthritis M06.9 ; [...] mg/ml 06/16/2025 1 mL Progress Notes * KWASI HUYNHDOB: 7 (79 yo F)Acc No.[id number]:06/16/2025 Progress Notes Patient: KWASI PANIAGUA Provider: Raul Torres M.D. :1945 A ge:79 Y S ex:Female Date:06/16/2025 Address:[address], [place], [id number] Subjective: * Chief Complaints: * 1 . [...] chronic steroid use. She would like for Kwasi to discontinue prednisone for a month to allow further testing but Kwasi declined because of her severe arthritic pain. [...] Hypertension, Hypothyroidism/goiter, Kidney stones, Allergic rhinitis, ASCVD: [place] - 09/2013-followed by Dr. Arrington q 6 months, Cataracts, Hyperuricemia, Inflammatory arthritis - Dr. Cheng, polymyalgia rheumatica - Dr. Cheng, Moderna Covid vaccine x2 Oct/Nov 2020. * Surgical History: T hyroidectomy/Goiter removal 1999, Back 2001, Total Hysterectomy 1992, Tonsillectomy child, Cardiac Stent Placed-[facility]-Dr Arrington. Dr. Santo 10/19/2013, Cataract 10/2017. * Hospitalization/Major Diagno stic Procedure: k idney stones 1992, Heart Attack- [place] 09/2013, Facial Pain, Sinus Blockage- [facility] ER 04/24/2018, Itching, Swelling in Hands- [facility] ER 10/21/2018, Multiple rib and pelvic fractures; hyponatremia; rheumatoid arthritis; ASCVD- 06/30-, Dehydration, Failure to Thrive, Acute Urinary Retention- [facility] 07/14-, H : fall with multiple [...] on, J1010 Inj, methylpred acetate 1 mg, 86639 ADMINISTRATION OF INJECTION * Follow Up: 2 Months * Images: Billing Information: * Visit Code: 26284 Office Visit, Est Pt., Level 3. Modifiers: 25 * Procedure Codes: G2211 Complex e/m visit add on. J1010 Inj, methylpred acetate 1 mg. 61937 ADMINISTRATION OF INJECTION. * Electronic signature of Raul Torres MD on 09/21/2025 at 04:27 PM EST Sign off status: Pending * Provider: Raul Torres M.D. Date: 0 06/16/2025 Generated for Jerry panda/Kerwin/Adrianitting on: 1 11/22/2024 04:27 PM EST History and Physical Notes * Examination Category Sub-Category Detail Notes Category Not es General Examination Heart: RSR Lungs: clear to auscultatio n Extremities: 1+ pedal and ankle e stephanie bilaterally. General Appearance: NAD
--- OUTSIDE RECORDS SUMMARY | 2025-07-15 06:25 | XMS_ITS ---
Author Organization [facility] Address [address] [place] [phone] Care Team Providers Care Labor Relations Worker Name Role Phone Raul Torres Primary [...] Administered Encounters Encounter Location Date Provider Diagnosis [facility] [address] [facility] [address] [place] [phone] 07/15/2025 Raul Torres Encounter for immunization Z23 Assessments Encounter Date Diagnosis (ICD Code) Assessment Notes Treatment Notes Treatment Clinical Notes Section Notes 07/15/2025 Encounter for immunization (ICD-10 - Z23) Plan Of Treatment No Information Progress Notes * LINO KWASIDOB: 7 (79 yo F)Acc No.[id number]:07/15/2025 Patient: KWASI PANIAGUA Provider: Raul Torres M.D. :1945 A ge:79 Y S ex:Female Date:07/15/2025 Address:[address] [place] [address], [place], [id number] Subjective: * Chief Complaints: * 1 [...] 0 07/15/2025 Generated for Jerry panda/Kerwin/Arthur on: 11/22/2024 04:26 PM EST
--- OUTSIDE RECORDS SUMMARY | 2025-07-21 05:45 | XMS_ITS ---
Author Organization Jared Address [address] [facility] [address] [place] [phone] Care Team Providers Care Supervisor Special Services Name Role Phone Raul Torres Primary Care Provider REASON FOR VISIT foot still swelling Encounters Encounter Location Date Provider Diagnosis [facility] [address] [facility] [address] [place] [phone] 07/21/2025 Raul Torres Plan Of Treatment No Information Progress Notes * KWASI HUYNHDOB: 7 (79 yo F)Acc No.[id number]:07/21/2025 Progress Notes Patient: KWASI PANIAGUA Provider: Raul Torres M.D. :1945 A ge:79 Y S ex:Female Date:07/21/2025 Address:[address] [facility], [place], [id number] Subjective: * Chief Complaints: * 1 . Foot still swelling. * Medical History: Objective: * Vitals: Assessment: Plan: * Treatment: * Images: Billing Information: * Visit Code: * Procedure Codes: * Electronic signature of Raul Torres MD on 09/21/2025 at 04:26 PM EST Sign off status: Pending * Provider: Raul Torres M.D. Date: 07/21/2025 Generated for Jerry panda/Kerwin/Arthur on: 11/22/2024 04:26 PM EST
--- OUTSIDE RECORDS SUMMARY | 2025-09-03 05:45 | XMS_ITS ---
[facility] Address [address] [place] [id number] Care Team Providers Care Field Care Coordinator Name Role Phone Raul Torres Primary Care Provider [phone] Allergies Allergen (clinical drug ingredient) Drug/Non Drug [...] W/U Status Risk Notes Problem Coronary arteriosclerosis (59833618) ASCVD (arteriosclerotic cardiovascular disease) (I25.10) Active confirmed Vital Signs Weight 000 lbs 09/03/2025 Blood pressure systolic 120 mm Hg 09/03/20 25 Blood pressure diastolic 70 mm Hg 025 Heart Rate 60 /min 09/03/2025 Height 65 in 09/03/2025 Encounters Encounter Location Date Provider Diagnosis [facility] [address] [facility] [address] [place], [place] [address], [place] [id number] 09/03/2025 R John Torres Rheumatoid arthritis , [...] ge:79 Y S ex:Female Date:09/03/2025 Address:[address] [facility], [place], [id number] Subjective: * Chief Complaints: * 1 . Shot for arthritis. * HPI: R heumatology: She presents with complaints of worsening pain in both shoulders and both hands with swelling of the joints of her hand. She is requesting a steroid injection. She continues on oral prednisone. 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 C ardiology: She was hospitalized about a month ago with a UTI and NSTEMI. She was discharged to [facility] for rehab and just returned [...] Procedure: k idney stones 1992, Heart Attack- [place] 09/2013, Facial Pain, Sinus Blockage- [facility] 04/24/2018, Itching, Swelling in Hands- [facility] 10/21/2018, Multiple rib and pelvic fractures; hyponatremia; rheumatoid arthritis; ASCVD- 06/30-, Dehydration, Failure to Thrive, Acute Urinary Retention- [facility] 07/14-, [facility] : fall with multiple FX [...] on, J1010 Inj, methylpred acetate 1 mg, 38308 ADMINISTRATION OF INJECTION * Follow Up: 3 Months * Images: Billing Information: * Visit Code: 39565 Office Visit, Est Pt., Level 3. Modifiers: 25 * Procedure Codes: G2211 Complex e/m visit add on. J1010 Inj, methylpred acetate 1 mg. 54414 ADMINISTRATION OF INJECTION. * Electronic signature of Raul Torres MD on 09/21/2025 at 04:26 PM EST Sign off status: Pending * Provider: Raul Torres M.D. Date: 11/03/2024 Generated for Jerry panda/Kerwin/Arthur on: 11/22/2024 04:26 PM EST History and Physical Notes * [...]
[2025-09-21] VITALS (13 sets, daily range): BP systolic 96–120; BP diastolic 56–86; PULSE 68–85; RESP 14–19; TEMP 36.3–36.5; O2SAT 90–99; BMI 21.4; BMI 21.9
--- OUTSIDE RECORDS SUMMARY | 2025-09-21 09:13 | XMS_ITS | Clinical Summary ---
Author Organization [facility] Address [address] [place] [address] Care Team Providers Care [employer] Name Role Phone Wyatt Torres MD Primary [...] e alcohol) a glass of wine at [facility] Comments Unknown Sex and Gender [...] - 200 mg/dL 01/15/2025 12:23 AM EDT [facility] Triglycerides 89 0 - 150 mg/dL 01/15/2025 12:23 AM EDT [facility] HDL Cholesterol 99(H) 40 - 60 mg/dL 01/15/2025 12:23 AM EDT [facility] LDL Cholesterol 75 0 - 100 mg/dL 01/15/2025 12:23 AM EDT [facility] VLDL Cholesterol 16 5 - 40 mg/dL 01/15/2025 12:23 AM EDT [facility] LDL/HDL Ratio 0.74 01/15/2025 12:23 AM EDT [facility] Blood Venipuncture / Unknown 01/14/2025 10:25 AM EDT 01/14/2025 10:26 AM EDT Narrative [facility] - 01/15/2025 12:23 AM EDT [...] MD LAB BLOOD ORDERABLES Final Resul t [facility]
[address] [place] [address], from Last 3 Months or Most Recently Relevant to Health Maintenance Insurance MEDICARE A & [employer] [facility] [place] [id number] Care Teams [employer] Relationship Specialty Start Date End Date Wyatt Torres MD [address] [facility] [address] [facility] [address] [place] [place] [id number] PCP - General Family Medicine 12/26/24
--- OUTSIDE RECORDS SUMMARY | 2025-09-21 09:13 | XMS_ITS | Encounter Summary ---
[facility] Organization [facility] Address [address] [place] [address] Care Team Providers Care Radio Station Audio Engineer Name Role Phone Wyatt Torres MD Primary Care Provider Encounter Details Date Type Department Care Team (Late st Contact Info) Description 01/15/2025 Results Follow-Up [facility] [address] [facility] [address] [phone] Jennyfer Porras APRN [address] [facility] [address] [place] [address] Social History Tobacco Use Types Packs/Day Years [...] on filedocumented in this encounter Care Teams Radio [employer] Audio Engineer Relationship Specialty Start Date End Date Wyatt Torres MD [address] [place] [facility] [address] [facility] [address] PCP - General Family Medicine 12/26/24 documented as of this encounter
--- OUTSIDE RECORDS SUMMARY | 2025-09-21 09:13 | XMS_ITS | Data Portability ---
Author Organization [facility] COREEN MontañoS [place] [facility] Address [address] [place] [address] Care Team Providers Care Typo Machine Operator Name Role Phone EMA CAMPOS Primary Care Provider ROSE BASS Water Filtration Technician Assessment Encounter Date Assessment Date Assessment LastModified [...] recorded. Lab rf (rheumatoid factor), serum 2023 [facility], [address] [place] [address], [id number], 11:20:43 ccp (cyclic citrullinat ed peptide) iga+igg, serum 2023 024 [facility], [address] [place] [address], [address], 4 16:52:40 ESR (erythrocyt e sedimentati on rate), blood 2023 024 [facility], [address] [place] [address], [address], 4 11:12:24 C reactive protein, QN, serum or plasma 2023 024 [facility], [address] [place] [address], [address], 4 11:20:45 Mycobacteri um tuberculosi s stimulated gamma interferon, qual, blood 2023 024 [facility], [address] [place] [address], [address], 4 02:43:42 hepatitis C Ab, serum 2023 024 [facility], [address] [place] [address], [address], 4 11:39:06 ESR (erythrocyt e sedimentati on rate), blood 2023 024 [facility], [address] [place] [address], [address], 4 11:13:45 C reactive protein, QN, serum or plasma 2023 024 [facility], [address] [place] [address], [address], 4 11:26:25 Referral None recorded. Procedures None recorded. Surgeries None recorded. Imaging None recorded. Medication Orders prednisone 5 mg tablet 2024 025 [facility] [address] [place], [address], 5 10:42:41 Cymbalta 30 mg capsule,del ayed release 2023 024 [facility] [address] [place], [address], 4 10:15:00 Depo-Medrol 80 mg/mL suspension for injection 2023 024 martagita [facility] [address] [place], [address], 4 10:45:28 Patient TargetsNo targets recorded. Patient InstructionsNo instructions recorded. Reason for Referral None Reported. Results Created Date Observation Date Name Description Value Unit Range Abnormal Flag Note LastModifiedBy Organization Detail LastModifiedTime 10/25/1910/25/2023 ESR, AUTOM ATED ESR, automated 7 mm 0-29 normal Not Available [facility] [address] [place] [address], [address], 10/25/2023 11:13:45 10/25/19 24 10/25/2023 C REACT KASANDRA PROTE IN C reactive protein 0.17 mg/dL 0.00-0 .49 normal Not Available [facility] [address] [place] [address], [address], 10/25/2023 11:26:25 05/07/20 24 05/07/2024 ESR, AUTOM ATED ESR, automated 12 mm 0-29 normal Not Available [facility] [address] [place] [address], [address], 05/07/2024 11:12:24 05/07/20 24 05/07/2024 RF SCREE N, QUANT . rf screen, quant. <10.0 [IU]/ mL 0.0-13 .9 normal Not Available [facility] [address] [place] [address], [address], 05/07/2024 11:20:43 05/07/20 24 05/07/2024 C REACT KASANDRA PROTE IN C reactive protein 0.17 mg/dL 0.00-0 .49 normal Not Available [facility] [address] [place] [address], [address], 05/07/2024 11:20:45 05/07/20 24 05/07/2024 HEPAT ITIS C AB SCR, REFLE X HCVQT hcab scr, reflex viral RNA qt NONREA CTIVE nonrea ctive normal Antib odies to HCV were not detec beth; does not exclu de the possi bilit y of expos ure to HCV. Not Available [facility] [address] [place] [address], [address], 05/07/2024 11:39:06 05/07/20 24 05/09/2024 ANTI- CCP anti-ccp <16 units normal Refer ence Range Negat kasandra: <20 Weak Posit kasandra: 20-39 Moder ate Posit kasandra: 40-59 Stron g Posit kasandra: >59 Not Available [facility] [address] [place] [address], [address], 05/09/2024 16:52:40 05/07/20 24 05/10/2024 QUANT IFERO N TB GOLD qtb gold NEGATI VE negati ve normal Negat kasandra test resul t. M. tuber culos is compl ex infec tion unlik erin. Not Available [facility] [place], [address], 05/15/2024 15:49:02 05/07/20 24 05/10/2024 QUANT IFERO N TB GOLD nil 0.01 IU/mL normal Not Available [facility] [place], [address], 05/15/2024 15:49:02 05/07/20 24 05/10/2024 QUANT IFERO N TB GOLD mitogen nil >10.00 IU/mL normal Not Available [facility] [place], [address], 05/15/2024 15:49:02 05/07/20 24 05/10/2024 QUANT IFERO N TB GOLD TB1 nil 0.00 IU/mL normal Not Available [facility] [address] [place], [address], 05/15/2024 15:49:02 05/07/20 24 05/10/2024 QUANT IFERO [...] refer to https ://ed ucati on.qu blayne [employer]. [employer]/f aq/FA Q204 (This link is being provi ded for infor uday cormier/ toi tamayo l purpo ses only. ) Not Available [facility] [address] [place], [address], 05/15/2024 15:49:02 Result Notes None recorded. Problems Name Problem SNOMED Code Status Onset Date Resolution Date Notes Provider Name and Address Organization Details Recorded Time Hyperuricemia 44036926 Active 2017 ARLENE MEI, MANAGER ANIMAL [address] [place], [address], [facility] 8 15:44:58 Problem Notes None recorded. Procedures Surgical History Date Name Laterality Status Provider Name and Address Organization Details Recorded Time Remove tonsils and adenoids completed [facility] 12/19/2018 09:47:28 Removal of thyroid completed [facility] 12/19/2018 09:47:47 Imaging Results None recorded. Procedure Notes None recorded. Medical Equipment None Reported. Allergies Allergen ID Allergen Name Allergen Category Reaction Reaction Severity Criticality Documentation Date Start Date Code Code System Note Provider Name and Address Organization Details Recorded Time 625921 Substance with sulfonami de structure and antibacte rial mechanism of action (substanc e) medicatio n Not available Not available Not available 09/15/20162014 13260 8003 SNOMED Comme nt: Creat ed By: Rayna Gonzalez; Creat ed Date: 2014 10:04 :26 AM; Not Available [facility] 6 09:13:41 739021 codeine medicatio n Not available Not available Not available 09/15/20162014 2670 RxNorm Comme nt: Creat ed By: Rayna Gonzalez; Creat ed Date: 2014 10:03 :51 AM; Not Available [facility] 6 09:37:20 Medications Name Sig Start Date [...] levothyr oxine; Dosage:1 ; refills: 0; Quantity :88551 mcg Not Available Not Available Not Available [...] Updated DateTime 4 167.64 cm 24.7 kg/m2 48783.6 3 g 16 /min 67 /min 96 % 152/90 mm[Hg] Frieda Mcmahon [facility] 10:07:20 Date Recorded Body height Body mass index (BMI) Body weight Provider Name and Address Organization Details Last Updated DateTime 10/28/2024 167.64 cm 24.7 kg/m2 09417.63 g Arash Zavala [facility] 10/28/2024 13:15:40 Date Recorded Body height Body mass index (BMI) Body weight Respiratory rate Heart rate Oxygen saturation Systolic And Diastolic Provider Name and Address Organization Details Last Updated DateTime 4 167.64 cm 24.7 kg/m2 02993.6 3 g 16 /min 69 /min 96 % 120/80 mm[Hg] Frieda Mcmahon [facility] 4 10:42:58 Date Recorded Body height Respiratory rate Body mass index (BMI) Body weight Oxygen saturation Heart rate Systolic And Diastolic Provider Name and Address Organization Details Last Updated DateTime 5 167.64 cm 16 /min 24.7 kg/m2 22222.6 3 g 97 % 68 /min 126/82 mm[Hg] Arash Lucas [facility] 5 10:34:11 Date Recorded Body height Body mass index (BMI) Body weight Respiratory rate Heart rate Oxygen saturation Systolic And Diastolic Provider Name and Address Organization Details Last Updated DateTime 4 167.64 cm 24.7 kg/m2 51994.6 3 g 16 /min 86 /min 97 % 122/80 mm[Hg] Frieda [facility] 4 09:59:55 Social History Question Answer Notes LastModified by [employer] Details LastModified Time Tobacco Smoking Status Former Smoker January [facility] 10/26/2017 14:04:04 How Much Tobacco Do You Chew? None Information not available 06/19/2019 What Was The Date Of Your Most Recent Tobacco Screening? 01/27/2025 [email or web address] Information not available 01/27/2025 How Much Tobacco Do You Smoke? 1 PPD Information not available 06/19/2019 How Many Years Have You Smoked Tobacco? 40 Information not available 06/19/2019 Have You Recently Traveled Abroad? No [email or web address] Information not available 10/24/2022 Sex: Unknown Functional Status Question Answer Note LastModified by [employer] Details LastModified Time What is your level of alcohol consumption? None [email or web address] Information not available 12/19/2018 Do you or [...] ICD10 Code Diagnosis IMO Codes Diagnosis Note [id number] ARLENE MEI APRN [facility] [address] [place] [address] 10/26/2017 13:52:29 10/26/2017 14:49:45 Pain of multiple joints 23563276 M25.50 71 year old female is here [...] go over results. Anti-nucle ar factor detected 167434459 R76.8 As detailed above OPAL obtained in 2013 was 1:160 homogenous .Recently checked per PCP and was homogenous 1:320.Will obtain lupus panel today. [id number] ARLENE MEI APRN [facility] [address] [place] [address] 11/08/2017 10:21:14 11/12/2017 08:10:02 Hyperuricemia 23511799 E79.0 Hyperurice miaPatient reports episodes of heat [...] 3 months, to recheck uric acid level. [id number] ROSE BASS MD [facility] [address] [place] [address] 11/04/2018 10:30:43 11/07/2018 07:59:17 Inflammatory polyarthropathy 929871062 M06.4 very pleasant 72-year-ol d female with [...] she was comfortabl e with the plan. [id number] ROSE BASS MD [facility] [address] [place] [address] 12/19/2018 09:01:43 12/20/2018 08:50:39 Polymyalgia rheumatica 31535221 M35.3 clinically looks so much better. Active and passive range of motion. She has palpable pulses without any jaw tenderness or temporal tenderness . I would like her to maintain prednisone at 5 mg once a day. Inflammato ry polyarthropathy 423172490 M06.4 in terms of inflammato ry arthritis, [...] Her baseline eye examinatio n is stable. [id number] ROSE BASS MD [facility] [address] [address] 06/19/2019 09:47:18 06/24/2019 08:38:26 Polymyalgia rheumatica 24879956 M35.3 chronic disease and under excellent control. In clinical remission. Excellent Range of motion. No physical limitation s noted. I would like her to maintain prednisone at 5 mg once a day. Inflammato ry polyarthropathy 499157434 M06.4 chronic polyarticu lar inflammato ry arthritis associated with PMR remains in clinical remission. I would like her to continue with hydroxychl oroquine at 200 mg once a day. [id number] ROSE BASS MD [facility] [address] [place] [address] 06/21/2020 07:59:24 06/21/2020 11:07:16 Polymyalgia rheumatica 21968789 M35.3 74-year-ol d female with chronic polymyalgi [...] headaches or vision changes. Inflammato ry polyarthropathy 073238172 M06.4 chronic polyarticu lar inflammato ry arthritis associated with PMR. fairly stable. maintain hydroxychl oroquine 200 mg twice a [id number] ROSE BASS MD [facility] [address] [place] [address] 09/29/2020 10:12:08 09/29/2020 10:38:53 Polymyalgia rheumatica 70800273 M35.3 74-year-ol d female with chronic polymyalgi [...] follow-up in 3 months Inflammato ry polyarthropathy 547688405 M06.4 associated inflammato ry arthritis. Symptomati marvin joint pains as detailed above. Medication s As described above combinatio n of hydroxychl oroquine and prednisone . Follow-up in 3 months. [id number] ROSE BASS MD [facility] [address] [place] [address] 12/29/2020 10:28:14 12/29/2020 11:52:19 Polymyalgia rheumatica 75388994 M35.3 74-year-ol d female with chronic polymyalgi [...] n once a year. Inflammato ry polyarthropathy 914497019 M06.4 Chronic and associated with polymyalgi a rheumatica . Currently clinically stable. Maintain the combinatio n of prednisone as well as hydroxychl oroquine as stated above. [id number] ROSE BASS MD [facility] [address] [place] [address] 04/29/2021 09:27:28 04/29/2021 10:15:19 Inflammatory polyarthropathy 205907812 M06.4 Chronic and associated with polymyalgi a rheumatica . has done well. Unfortunat erin not able to load the prednisone dose and is currently on prednisone 10 mg alternatin g with 5 mg every other day. She also takes hydroxychl oroquine 200 mg twice a day. Must need to follow with eye examinatio n once a year Polymyalgi a rheumatica 98531170 M35.3 75-year-ol d female with chronic polymyalgi a rheumatica . Clinically stable on the current dose of prednisone as detailed above. No stigmata for giant cell arteritis. Repeat the ESR. Follow with eye examinatio n once a year. Long-term drug therapy 440600675 Z79.899 Of pain last follow-up on polymyalgi a rheumatica and inflammato ry arthritis. Bone density test needs to be done every 2 years. Maintain calcium and vitamin D on account of risk for osteoporos is on steroids. Also suggested to follow up with a bone density test with her primary care physician [id number] ROSE BASS MD [facility] [address] [place] [address] 11/02/2021 12:56:26 11/02/2021 13:19:32 Inflammatory polyarthropathy 741061115 M06.4 Smbdt27-bl ar-old with polyarthri tis Chronic and stable. The current combinatio n of prednisone and hydroxychl oroquine is very helpful. Refills were given.Foll ow-up in 6 months Polymyalgi a rheumatica 73253042 M35.3 75-year-ol d female with chronic polymyalgi a rheumatica . Clinically stable on the current dose of prednisone 10 mg alternatin g with 5 mg every other day along with hydroxychl oroquine 200 mg twice a day. No stigmata for giant cell arteritis. Repeat the ESR. Follow with eye examinatio n once a year. Long-term drug therapy 916503818 Z79.899 Must follow-up with an eye examinatio n every year. Bone density test every 2 years. Maintain calcium vitamin D. Also suggested to follow up with a bone density test with her primary care physician [id number] ROSE BASS MD [facility] [address] [place] [address] 05/01/2022 08:17:48 05/01/2022 15:37:51 Inflammatory polyarthropathy 479486345 M06.4 76- year-old with polyarthri tis Seronegati [...] ow-up in 6 months Polymyalgi a rheumatica 20813471 M35.3 76-year-ol d female with chronic polymyalgi a rheumatica . Clinically stable. No proximal muscle pain or weakness reported.N o stigmata for giant cell arteritis. Last ESR 04/29/2021 9 mm/h Repeat the ESR. Follow with eye examinatio n once a year. Long-term drug therapy 974218300 Z79.899 Must follow-up with an eye examinatio n every year. Bone density test every 2 years. Maintain calcium vitamin D. She typically follows the bone density test with her PCP. She will get us a copy. [id number] ROSE BASS MD [facility] [address] [place] [address] 10/24/2022 13:59:01 10/25/2022 14:30:30 Inflammatory polyarthropathy 964697875 M06.4 76- year-old with polyarthri tisSeroneg ative [...] renal toxicity. Refills given Polymyalgi a rheumatica 45216764 M35.3 76-year-ol d female with chronic polymyalgi a rheumatica .From the PMR point of view looks stable.No proximal muscle pain or weakness reported.N o stigmata for giant cell arteritis. Last ESR 04/29/2021 9 mm/h Repeat ESR today Long-term drug therapy 337456392 Z79.899 Must follow-up with an eye examinatio n every year While taking the hydroxychl oroquine. On account of corticoste roid use, osteoporos is, osteonecro sis risk were reviewed. Weight gain diabetes also reviewed. Must follow with a bone density every 2 years [id number] ROSE BASS MD [facility] [address] [place] [address] 04/03/2023 13:22:18 04/05/2023 04:49:45 Inflammatory polyarthropathy 931673835 M06.4 77- year-old with polyarthri tisSeroneg ative [...] toxicity. Follow-up 6 months Polymyalgi a rheumatica 24744821 M35.3 77-year-ol d female with chronic polymyalgi [...] prednisone resulted in flare. Long-term drug therapy 846989484 Z79.899 Must follow-up with an eye examinatio n every year While taking the hydroxychl oroquine. On account of corticoste roid use, osteoporos is, osteonecro sis risk were reviewed. Weight gain diabetes also reviewed. Must follow with a bone density every 2 years [id number] ROSE BASS MD [facility] [address] [place] [address] 10/25/2023 09:56:13 10/26/2023 15:37:58 Inflammatory polyarthropathy 057473479 M06.4 77- year-old with polyarthri tisSeroneg ative [...] toxicity. Follow-up 3 months Polymyalgi a rheumatica 57974730 M35.3 77-year-ol d female with chronic polymyalgi [...] her current treatment plan. Long-term drug therapy 152041706 Z79.899 Must follow-up with an eye examinatio n every year While taking the hydroxychl oroquine. On account of corticoste roid use, osteoporos is, osteonecro sis risk were reviewed. Weight gain diabetes also reviewed. Must follow with a bone density every 2 years [id number] ROSE BASS MD [facility] [address] [place] [address] 01/21/2024 10:13:42 01/22/2024 04:18:34 Inflammatory polyarthropathy 694515287 M06.4 78- year-old with polyarthri tisSeroneg ative [...] toxicity. Follow-up 3 months Polymyalgi a rheumatica 14121973 M35.3 78-year-ol d female with chronic polymyalgi [...] CRP 10/25/2023 is normal Long-term drug therapy 951865491 Z79.899 Must follow-up with an eye examinatio n every year While taking the hydroxychl oroquine. On account of corticoste roid use, osteoporos is, osteonecro sis risk were reviewed. Weight gain diabetes also reviewed. Must follow with a bone density every 2 years Fibromyalgia 886620598 M 79.7 Symptomati c with diffuse fibromyalg ia tender points. Discussed the diagnosis of fibromyalg ia. Educated about the disease. On account of fibromyalg ia pain, suggested the addition of cymbalta. Side effect profile reviewed. Prescripti on sent. Breast reduction discussed. Follow up in March 2024. [id number] ROSE BASS MD [facility] [address] [place] [address] 05/07/2024 09:49:06 05/08/2024 04:38:13 Inflammatory polyarthropathy 902708420 M06.4 78- year-old with polyarthri tisSeroneg ative [...] toxicity. Follow-up 3 months Polymyalgi a rheumatica 96408665 M35.3 78-year-ol d female with chronic polymyalgi [...] ESR and CRP today. Long-term drug therapy 867211513 Z79.899 Must follow-up with an eye examinatio n every year While taking the hydroxychl oroquine. On account of corticoste roid use, osteoporos is, osteonecro sis risk were reviewed. Weight gain diabetes also reviewed. Must follow with a bone density every 2 yearsTB and hep c test today. Fibromyalgia 806214488 M 79.7 Symptomati c with diffuse fibromyalg ia tender points. Discussed the diagnosis of fibromyalg ia. Educated about the disease. On account of fibromyalg ia pain, suggested the addition of cymbalta. Side effect profile reviewed. Prescripti on sent. Breast reduction discussed. Follow up in March 2024. [id number] ROSE BASS MD [facility] [address] [place] [address] 10/28/2024 13:15:11 10/29/2024 09:41:27 Inflammatory polyarthropathy 998013624 M06.4 78- year-old with polyarthri tisSeroneg ative [...] toxicity. Follow-up 3 months Polymyalgi a rheumatica 38259125 M35.3 78-year-ol d female with chronic polymyalgi a rheumatica .Asymptoma tic. On combinatio n of prednisone and hydroxychl oroquine as detailed above. We have talked about Kevzara. She would rather hold off on it. Long-term drug therapy 302239142 Z79.899 Must follow-up with an eye examinatio n every year While taking the hydroxychl oroquine. On account of corticoste roid use, osteoporos is, osteonecro sis risk were reviewed. Weight gain diabetes also reviewed. Must follow with a bone density every 2 yearsTB and hep c test today. Fibromyalgia 345966963 M 79.7 Clinically stable. No complaints . Pains are well-contr olled. Continue with gabapentin 100 mg every 8 hours Follow-up in 3 months [id number] ROSE BASS MD [facility] [address] [place] [address] 01/27/2025 10:22:01 01/28/2025 04:37:03 Inflammatory polyarthropathy 382309437 M06.4 78- year-old with polyarthri tisSeroneg ative [...] toxicity. Follow-up 3 months Polymyalgi a rheumatica 85056657 M35.3 78-year-ol d female with chronic polymyalgi [...] hold off on it. Long-term drug therapy 639257121 Z79.899 Must follow-up with an eye examinatio n every year While taking the hydroxychl oroquine. On account of corticoste roid use, osteoporos is, osteonecro sis risk were reviewed. Weight gain diabetes also reviewed. Must follow with a bone density every 2 years Will repeat the labs on her visit in April. Fibromyalgia 452795599 M 80.7 Clinically stable. No complaints . [...] Name 07/31/2025 1 [place] Andry Culp [id number] Andry Culp 05/16/2024 2 [employer] Andry Culp [id number] Andry Culp 07/31/2025 2 [employer] (MEDICARE SUPPLEMENT) PLAN G Andry Culp [id number] Andry Culp Notes Date Note Type Note [...] jaw pain. ROSE BASS MD [address] [place], [address], [facility] 10/25/2023 10:45:26 01/21/2024 text/html ROS as noted [...] headaches or jaw pain. ROSE BASS MD [address] [place] [address], [phone], [facility] 01/21/2024 16:55:07 05/07/2024 text/html ROS as noted [...] headaches or jaw pain. ROSE BASS MD [address] [place] [address], [phone], [facility] 05/07/2024 16:46:44 10/28/2024 text/html ROS as noted in the HPI Visit today is being conducted via telehealth using both audio/video. The patient confirms that he/she is physically located in [place] at the time of this visit. Patient [...] headaches or jaw pain. ROSE BASS [facility] [place], [address], [facility] 10/28/2024 13:30:53 01/27/2025 text/html ROS as noted [...] vision changes. ROSE BASS MD [facility] [place], [address], [facility] 01/27/2025 11:01:52 OBGyn Episode No OBEpisode recorded.
--- OUTSIDE RECORDS SUMMARY | 2025-09-21 09:13 | XMS_ITS | Encounter Summary ---
Author Organization Healthcare Address [address] [place] [address] Care Team Providers Care Rn Acute Name Role Phone Amparo Arrington MD Primary Care Provider [phone] Encounter Details Date Type Department Care Team (Late st Contact Info) Description 08/24/2025 Orders Only [facility] [address] [place] [address] Anita Luu Hyponatremia (Primary Dx); Vitamin [...] place to sleep or slept in a half-way (including now)? No 07/01/2024 Utilities Answer Date [...] Description 10/23/2025 12:20 PM EST Office Visit [facility] [address] [place] [address] Vicente Rodrigez MD [address] [place] [address] Scheduled Orders Name Type Priority Associated [...] documented as of this encounter Care Teams Rn Acute Relationship Specialty Start Date End Date Amparo Arrington MD [address] [place] [address] PCP - General 03/04/21 documented as of this encounter
--- OUTSIDE RECORDS SUMMARY | 2025-09-21 09:13 | XMS_ITS | Clinical Summary ---
Author Organization [facility] Address [address] [place] [address] Care Team Providers Care Configuration Technician Name Role Phone Amparo Arrington MD Primary Care Provider [phone] Allergies Active Allergy Reactions Criticality Noted Date [...] PMF's reviewed and stable PT/OT as tolerated [facility] Acquired hypothyroidism 06/30/2024 Overview (06/30/2024): Continue home levothyroxine Complicates all aspects of care Coronary artery disease invo lving [place] coronary artery of [place] heart without angina pectoris 06/30/2024 Overview (06/30/2024): [...] Department Care Team Description 08/24/2025 Orders Only [facility] [address] [place] [...] place to sleep or slept in a retirement (including now)? No 07/01/2024 Utilities Answer Date [...] Description 10/23/2025 12:20 PM EST Office Visit [facility] [address] [place] [id number] Vicente Rodrigez MD [address] [place] [phone] Health Maintenance Due Date Last Done Comments [facility]-Bone Density Scan 1946 [facility]-Depression Screening 1946 [facility]-Medicare Annual Wellness (AWV) 1945 [facility]-Infant/Child/Adol SDOH Screenings 01/01/1947 [facility]- SDOH Screenings 1964 [facility]-Adult SDOH Screenings 1964 [facility]-Zoster Vaccines (1 of 2) 1965 [facility]-RSV Vaccine: 60+ Years or (1 - 1-dose 75+ series) 2021 [facility]-WAVBE-60 Vaccine (2024- season) 2025 08/19/2024, 08/16/2023, 05/29/2023, [...] 1:15 AM EDT 06/30/2024 1:40 AM EDT Sami Rowell MD LAB BLOOD ORDERABLES Final Re sult [facility] [address] [place] [address] from Last 3 Months or Most Recently Relevant to Health Maintenance Insurance MEDICARE [facility] Advance Directives * Full Code (Latest Code Status on File) Date Activated Date Inactivated Comments 07/04/2024 1:04 PM * Full Code Date Activated Date Inactivated Comments 06/30/2024 8:06 AM 07/04/2024 1:04 PM Question Answer Comments Patient has decision-making capacity? Yes Care Teams Configuration Technician Relationship Specialty Start Date End Date Amparo Arrington MD [address] [facility] [address] [place] [address] PCP - General 03/04/21
--- OUTSIDE RECORDS SUMMARY | 2025-09-21 09:14 | XMS_ITS | Clinical Summary ---
Author Organization [facility] Address [address] [place] [id number] Care Team Providers Care Traffic Operations Engineer Name Role Phone Wyatt Torres MD Primary Care Provider [phone] Source Comments This information has been disclosed [...] therelease of HIV test results or diagnoses. [id number] Allergies Active Allergy Reactions Criticality Noted [...] A AND B [employer] Care Teams Traffic Operations Engineer Relationship Specialty Start Date End Date Wyatt Torres MD [address] [place] [address] PCP - General Family Medicine 04/09/23
--- OUTSIDE RECORDS SUMMARY | 2025-09-21 09:14 | XMS_ITS | Clinical Summary ---
Author Organization [facility] Address [address] [place] [address] Phone Care Team Providers Care Inseminator Name Role Phone Unavailable Primary Care Provider [...] B MEDICARE IN PART A AND B [facility]
--- NOTE | 2025-09-21 09:17 | HMH.EDGENADL ---
Discharge Plan Disposition Patient Disposition: Admitted Condition: Good Prescriptions Prescriptions: No Action sacubitril-valsartan [Entresto] 24-26 mg tablet 1 tab PO BID carvedilol 12.5 mg tablet 12.5 mg PO DAILY Qty: 30 2RF Rx Instructions: must administer with a meal/food cyclobenzaprine 5 mg tablet 5 mg PO HSP PRN (Reason: muscle spasms) Qty: 30 2RF hydroxychloroquine 200 mg tablet 200 mg PO DAILY Qty: 30 2RF levothyroxine 112 mcg tablet 112 mcg PO DAILYDM Qty: 30 2RF melatonin 3 mg tablet 3 mg PO HSP Qty: 30 2RF ondansetron HCl 4 mg tablet 4 mg PO Q6H PRN (Reason: nausea and vomiting) Qty: 60 0RF potassium chloride [Klor-Con M10] 10 mEq tablet,ER particles/crystals 10 meq PO DAILY Qty: 30 0RF spironolactone 25 mg tablet 25 mg PO DAILY Qty: 30 2RF pravastatin 40 mg tablet 40 mg PO HS Qty: 30 2RF tamsulosin 0.4 mg capsule 0.4 mg PO HS Qty: 30 2RF tramadol 50 mg tablet 50 mg PO Q6H PRN (Reason: pain) Qty: 60 0RF acetaminophen 500 mg Tablet 500 mg PO Q6HP PRN (Reason: Mild Pain (Scale Score 1-4)) aspirin 81 mg Tablet,Delayed Release (Dr/Ec) 81 mg PO DAILY Qty: 30 0RF Referrals Follow up/Referrals: Wyatt Torres MD [Primary Care Provider, Medical] - See instructions Clinical Impressions Clinical Impression: Acute kidney injury, Chronic hyponatremia Instructions Patient Instructions: DI for Diarrhea and Traveler's Diarrhea in Adults, DI for Diarrhea and Traveler's Diarrhea in Children, DI for Nausea in Adults, DI for Nausea in Children Print Language Print Language: Swedish Discharge ED Provider: Edenilson Meraz JR General Adult HPI General Chief complaint: Nausea/Vomiting/Diarrhea Stated complaint: diarrhea, weakness, dizzy Time Seen by Provider: 09/21/25 09:12 Mode of Arrival: Wheelchair Source of Information: Patient Description of Symptoms (Recalled from ER Triage Doc. by RN): pt presents to the er for diarrhea that started yesterday, states she has went about 5 times, states it isn't complete water, does have some form to her bowel movements, denies abdominal pain, reports nausea as well and weakness, hx of electrolye imbalances in the past History of Present Illness HPI narrative: 79-year-old female patient with history of heart failure with reduced ejection fraction, last EF 45 to 50%, history of NSTEMI, history of severe electrolyte abnormalities, hyponatremia, and CAD, presents to the emergency department for evaluation of 5 days of diarrhea and generalized weakness. Patient denies fever, chills, vomiting, abdominal pain, chest pain, or shortness of breath. No leg swelling. Family endorses that last NSTEMI presented this way with generalized weakness instead of chest pain. Related Data Home Medications ?Medication ?Instructions ?Recorded ?Confirmed acetaminophen 500 mg tablet 500 mg PO Q6HP PRN Mild Pain 07/15/24 09/02/25 (Scale Score 1-4) sacubitril 24 mg-valsartan 26 mg 1 tab PO BID 09/02/25 09/02/25 tablet (Entresto) Previous Rx's ?Medication ?Instructions ?Recorded aspirin 81 mg tablet,delayed 81 mg PO DAILY #30 tabs 07/28/25 release carvedilol 12.5 mg tablet 12.5 mg PO DAILY #30 tabs 08/28/25 cyclobenzaprine 5 mg tablet 5 mg PO HSP PRN muscle spasms #30 08/28/25 tabs hydroxychloroquine 200 mg tablet 200 mg PO DAILY #30 tabs 08/28/25 levothyroxine 112 mcg tablet 112 mcg PO DAILYDM #30 tabs 08/28/25 melatonin 3 mg tablet 3 mg PO HSP Insomnia #30 tabs 08/28/25 ondansetron HCl 4 mg tablet 4 mg PO Q6H PRN nausea and 08/28/25 vomiting #60 tabs potassium chloride 10 mEq 10 meq PO DAILY #30 tabs 08/28/25 tablet,extended release(part/cryst) (Klor-Con M) pravastatin 40 mg tablet 40 mg PO HS #30 tabs 08/28/25 spironolactone 25 mg tablet 25 mg PO DAILY #30 tabs 08/28/25 tamsulosin 0.4 mg capsule 0.4 mg PO HS #30 caps 08/28/25 tramadol 50 mg tablet 50 mg PO Q6H PRN pain #60 tabs 08/28/25 Allergies Allergy/AdvReac Type Severity Reaction Status Date / Time Sulfa (Sulfonamide Allergy Unknown Hives Verified 09/21/25 09:02 Antibiotics) (SULFA (SULFONAMIDE ANTIBIOTICS)) codeine Allergy Vomiting Verified 09/21/25 09:02 Penicillins Allergy Hives Verified 09/21/25 09:02 hydrocodone AdvReac Other Verified 09/21/25 09:02 [facility] Disclaimer: The information contained in this section may have been updated after the patient was seen, as this information can be updated by other users. 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 Hyponatremia Abnormal weight loss Anorexia Hypoglycemia Postobstructive diuresis Acute urinary retention Adult failure to thrive Nausea Multiple fractures of pelvis with disruption of pelvic ring Hypochloremia Falls Trochanteric bursitis, right hip Skin tear of left upper extremity Contusion of elbow, left Contusion of hip, left Trochanteric bursitis, left hip Closed fracture of greater trochanter of femur With acute decompensation Pain around toenail, right foot Ingrown toenail of right foot Closed nondisplaced fracture of fifth right metatarsal bone MARY (acute kidney injury) Enteritis Hypothyroidism Foot fracture, right Polymyalgia rheumatica syndrome History of back pain History of left heart catheterization Hyperlipidemia Hypertension Cataract COVID-19 Closed fracture of fourth metatarsal of right foot Nondisplaced fracture of fifth right metatarsal bone with routine healing Myocardial infarction 2012 HLD (hyperlipidemia) CAD (coronary artery disease) Rheumatoid arthritis Surgical History H/O cataract removal with insertion of prosthetic lens History of heart artery stent Previous back surgery 2001 H/O thyroidectomy 1999 History of appendectomy 1992 History of hysterectomy 1992 History of tonsillectomy Family History Other Alcoholism Cancer Coronary artery disease Heart attack Hypertension Kidney disease Social History Smoking Status: Never smoker years smoked: 40 how long ago did patient quit smokin years alcohol intake: never substance use type: denies use current occupational status: retired Travel in the last 8 weeks?: None caregiver/support person: Yes () household members: spouse housing: house marital status: 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 needs: No Have you lived/traveled outside [place] in past 30 days?: No Contact w/someone who lives/traveled outside US past 30 days?: No Exposure to someone with infectious disease in past 14 days?: No Do you have a fever (greater than 100.4 F or 38 C)?: No Have you tested positive for COVID-19?: No Exposed to someone with COVID-19 in past 14 days?: No Do you have a sore throat?: No Do you have a cough?: No Do you have any weakness?: Yes Do you have any diarrhea?: Yes Are you experiencing any unusual bleeding?: No Do you have any muscle aches/pain?: No Do you have any abdominal pain?: No Are you experiencing loss of taste or smell?: No Other Medical History Have you received the Flu Vaccine for this season: No Have you received the Pneumonia Vaccine: No ROS Obtained: Yes All systems reviewed & no additional complaints except as documented and Yes Systems reviewed as appropriate & no additional complaints except as documented Constitutional Constitutional: Reports system reviewed and no additional complaints, except as documented and Reports weakness Eyes Eyes: Reports system reviewed and no additional complaints, except as documented ENT Ears, Nose, Mouth, and Throat: Reports system reviewed and no additional complaints, except as documented Cardiovascular Cardiovascular: Denies chest pain Respiratory Respiratory: Denies shortness of breath Gastrointestinal Gastrointestingal: Reports system reviewed and no additional complaints, except as documented and diarrhea; Denies abdominal pain or vomiting Genitourinary Female Genitourinary: Reports system reviewed and no additional complaints, except as documented Musculoskeletal Musculoskeletal: Reports system reviewed and no additional complaints, except as documented Integumentary/Breasts Skin/Breast: Reports system reviewed and no additional complaints, except as documented Neurologic Neurologic: Reports system reviewed and no additional complaints, except as documented and Reports weakness Endocrine Endocrine: Reports system reviewed and no additional complaints, except as documented Physical Exam General General appearance: alert and in no apparent distress Head Head exam: atraumatic and normocephalic Eye Eye exam: Present normal appearance ENT ENT exam: Present normal exam Neck Neck exam: Present normal inspection Chest Chest inspection: Present normal inspection Respiratory Respiratory exam: Present normal lung sounds bilaterally; Absent respiratory distress Cardiovascular Cardiovascular exam: Present regular rate and normal rhythm Abdominal Exam Abdominal exam: Present soft; Absent distention or tenderness Extremities Exam Extremities exam: Present normal inspection and full ROM Back Exam Back exam: Present normal inspection Neurological Exam Neurological exam: Present alert, oriented X3 and CN II-XII intact Psychiatric Psychiatric exam: Present normal affect Skin Skin exam: Present warm and dry Medical Decision Making Medical Records Screening: Per USPSTF and CDC recommendations, given the prevalence of disease in our region, it is our hospital?s policy to screen for HIV and viral Hepatitis for all patients aged 18 and over and those with ongoing risk factors. Michael Inquiry Pt receiving controlled substance: No Vital Signs: 09/21/25 08:53 09/21/25 08:56 09/21/25 09:00 Temperature 97.3 F L Temperature Source Oral Pulse Rate 74 70 Pulse Rate [Left Radial] 74 Respiratory Rate 16 Blood Pressure 101/58 L 108/65 L Blood Pressure [Right Arm] 101/58 L Blood Pressure Mean 68 74 Blood Pressure Mean [Right Arm] 72 Blood Pressure Source [Right Arm] Automatic Cuff Blood Pressure Position [Right Arm] Sitting 02 Sat by Pulse Oximetry 92 L 96 90 L Oxygen Delivery Method Room Air 09/21/25 09:31 09/21/25 10:00 Temperature Temperature Source Pulse Rate 71 68 Pulse Rate [Left Radial] Respiratory Rate Blood Pressure 106/61 L 108/68 L Blood Pressure [Right Arm] Blood Pressure Mean 67 81 Blood Pressure Mean [Right Arm] Blood Pressure Source [Right Arm] Blood Pressure Position [Right Arm] 02 Sat by Pulse Oximetry 90 L 97 Oxygen Delivery Method Lab Data Lab Results 09/21/25 08:55: WBC 8.2, RBC 3.81 L, Hgb 12.5, Hct 36.2 L, MCV 95.0, MCH 32.8 H, MCHC 34.5, RDW 12.6, Plt Count 302, MPV 10.3, Neut % (Auto) 65.6, Lymph % (Auto) 16.1, [place] % (Auto) 12.6 H, Eos % (Auto) 3.8, Baso % (Auto) 1.3, Neut # (Auto) 5.3, Lymph # (Auto) 1.3, [place] # (Auto) 1.0, Eos # (Auto) 0.3, Baso # (Auto) 0.1, Sodium 124 L, Potassium 4.6, Chloride 91 L, Carbon Dioxide 23, Anion Gap 14.6, BUN 11, Creatinine 1.20 H, Estimated Creat Clear 36, Estimated GFR 43 L, Est GFR ( Amer) 53 L, Glucose 111 H, Lactate 1.3, Calcium 10.3 H, Magnesium 1.6, Total Bilirubin 0.5, AST 29, ALT 15, Alkaline Phosphatase 90, Troponin I < 0.01, NT-Pro-B Natriuret Pep 291, Total Protein 6.9, Albumin 4.0, Globulin 2.9, Albumin/Globulin Ratio 1.4 09/21/25 08:55 09/21/25 08:55 Orders (Tests/Meds): ED MEDICATIONS Discontinued Medications Generic Name Dose Route Start Last Admin Trade Name Freq PRN Reason Stop Dose Admin Lactated Ringer's 500 mls @ 999 mls/hr 09/21/25 09:21 09/21/25 09:46 Lactated Ringer's 500ml IV 09/21/25 09:51 999 mls/hr .Q31M ONE Administration ORDERS Category Date Time Status XR chest portable Stat Exams 09/21/25 09:21 Completed Complete Blood Count Auto Diff Stat Lab 09/21/25 08:55 Completed Comprehensive Metabolic Panel Stat Lab 09/21/25 08:55 Completed Lactic Acid Stat Lab 09/21/25 08:55 Completed Magnesium Stat Lab 09/21/25 08:55 Completed NT Pro Brain Natriuretic Pep. Stat Lab 09/21/25 08:55 Completed Troponin I Q3H Lab 09/21/25 08:55 Completed Troponin I Q3H Lab 09/21/25 12:30 Ordered UA [Urinalysis and Microscopic] Stat Lab 09/21/25 09:18 Ordered Medical Decision Narrative: 79 year F with hx of CAD, NSTEMI, HF with reduced EF, last EF 45-50%. Presenting with weakness, diarrhea. Not complaining of any chest pain or shortness of breath. Arrives afebrile, hemodynamically stable. Patient does have heart failure but last EF showed EF of 50%. Due to diarrhea and weakness, we will give 500 mL of LR. EKG reviewed and independently interpreted, significant for sinus rhythm, first-degree AV block. There is low voltage. Evidence of potential septal infarction but probably old. No current ST elevation. No STEMI. We will repeat EKG and obtain troponins Elevated creatinine, significant for MARY. Sodium of 124. Etiology likely GI loss from diarrhea. Patient having difficulty ambulating secondary to weakness. Discussed case with admitting service. Will be admitted for MARY, weakness, hyponatremia. Will be admitted for obs and creatine recheck in the AM. patient and family agreeable with plan. Critical Care Critical Care Time Critical Care Time: No
--- NOTE | 2025-09-21 09:21 | XR_ITS ---
FINAL REPORT TECHNIQUE: Single view chest CLINICAL HISTORY: weakness, has heart failure COMPARISON: 07/21/2025 FINDINGS: A single view of the chest was obtained. The heart and mediastinum are within normal limits. Probable, mild underlying emphysema. The lungs are clear. There is no pneumothorax. IMPRESSION: No acute cardiopulmonary process. Reviewed, Interpreted and Dictated by Iwona Alvarenga MD Transcribed by Jazmin Escudero Authenticated and [facility]
[2025-09-21 09:25] LABS: Hematocrit 36.2 % (37.0-47.0); Hemoglobin 12.5 g/dL (12.2-16.2); Immature Granulocytes % 0.6 %; Mean Corpuscular HGB Conc 34.5 g/dL (31.8-35.4); Mean Corpuscular Hemoglobin 32.8 pg (27.0-31.2); Mean Corpuscular Volume 95.0 fl (81-99); Nucleated Red Blood Cells % 0 %; Platelet Count 302 K/mm3 (142-424); Red Blood Count 3.81 M/mm3 (4.20-5.40); Red Cell Distribution Width-SD 44.1 fL; White Blood Count 8.2 K/mm3 (4.8-10.8)
--- NOTE | 2025-09-21 09:28 | ECG_ITS ---
APPROVED REPORT Exam: Resting ECG HR:73 bpm ECG Measurements Heart Rate 73 AXES LA 274 P 66 QRSd 88 QRS 55 QT 399 T 51 QTc 425 Conclusion SINUS RHYTHM WITH SINUS ARRHYTHMIA WITH FIRST DEGREE AV BLOCK LOW QRS VOLTAGE IN PRECORDIAL LEADS [QRS DEFLECTION < 1.0 mV IN CHEST LEADS] SEPTAL MYOCARDIAL INFARCTION , PROBABLY OLD [40+ ms Q WAVE IN V1/V2] ABNORMAL ECG Electronically signed by : SANTIAGO ART, 09/22/2025 17:13:54
[2025-09-21 09:38] LABS: Albumin Level 4.0 g/dl (3.5-5.0); Chloride 91 mmol/L (98-107); Sodium 124 mmol/L (136-145)
[2025-09-21 09:39] LABS: Potassium 4.6 mmoL/L (3.5-5.1)
[2025-09-21 09:41] LABS: Alanine Aminotransferase 15 U/L (12-78); Anion Gap 14.6 mEq/L (5-15); Aspartate Amino Transferase 29 U/L (14-36); Blood Urea Nitrogen 11 mg/dl (7-17); Carbon Dioxide 23 mmol/L (22.0-30.0); Creatinine Clearance Estimated 36 mL/min (50-200); Creatinine,Serum 1.20 mg/dl (0.52-1.04); Estimated Glomerular Filt Rate 43 ml/min (>60); GFR (African American) 53 ML/MIN (>60)
[2025-09-21 09:42] LABS: Albumin/Globulin Ratio 1.4 (1.1-1.8); Alkaline Phosphatase 90 U/L (38-126); Bilirubin,Total 0.5 mg/dl (0.2-1.3); Calcium 10.3 mg/dl (8.4-10.2); Globulin 2.9 g/dL (1.3-3.2); Glucose 111 mg/dl (74-100); Magnesium 1.6 mg/dl (1.6-2.3); Total Protein,Serum 6.9 g/dl (6.3-8.2)
[2025-09-21] MEDS: RINGERS SOLUTION,LACTATED 500 ML 999 ML IV (09:46)
[2025-09-21 09:51] LABS: NT Pro Brain Natriuretic Pep. 291 pg/mL (0-450)
[2025-09-21 09:54] LABS: Troponin I < 0.01 ng/ml (0.00-0.034)
--- NOTE | 2025-09-21 10:59 | PC.NURSE ---
is speaking with about possible admission.
--- NOTE | 2025-09-21 11:08 | PC.NURSE ---
house aware of admission
--- NOTE | 2025-09-21 11:39 | HMH.PHAINT1 ---
Pharmacy Intervention Comments: MEDICATION RECONCILIATION COMPLETED ON PATIENT USING EXTERNAL FILL HISTORY FROM PHARMACY, MURRAY REPORT, DISCHARGE SUMMARY FROM PREVIOUS ADMISSION, AND LISTS FROM CARDIOLOGY/NEUROLOGY OFFICES. -SHAMIR ESPINALD
--- NOTE | 2025-09-21 11:51 | PC.NURSE ---
report called to heather weathers
--- NOTE | 2025-09-21 12:12 | PC.NURSE ---
arrived to med/surg via w/c
[2025-09-21 13:02] LABS: Troponin I < 0.01 ng/ml (0.00-0.034)
[2025-09-21] MEDS: 0.9 % SODIUM CHLORIDE 1000ML 1,000 ML 50 ML IV (13:09)
--- NOTE | 2025-09-21 13:36 | EXP.HP ---
History of Present Illness *Admission Date: 09/21/25 *Reason for visit:: Weakness; unable to walk; diarrhea *History of present illness: Ms. Pimentel is a 79-year-old female with a history of hyperlipidemia, hypertension, hypothyroidism, kidney stones, hyperuricemia, Ingris myalgia rheumatica, chronic hyponatremia who presented to [facility] emergency room for evaluation after being unable to walk this a.m. She states she has had diarrhea for the last few days mostly 2 stools a day. She has had no vomiting. She has been eating very little for the last week but has been retaining fluids. She has just generally not felt very well. She denies having any abdominal pain, nausea, diarrhea, hematemesis, and melena. With evaluation in the emergency room she was found to have a sodium of 124 and was felt to be dehydrated. She was given 500 cc of IV fluids and admitted for further evaluation and treatment. Renal function showed a BUN of 11 and a creatinine of 1.2. Potassium was normal at 4.6. Hemoglobin was 12.5 with a hematocrit of 36.2. White blood cell count was 8200. Troponin I was normal. Liver function studies were normal. Magnesium was 1.6. Chest x-ray was negative for any acute process. At the time of this exam she notes that she has just eaten a couple of chicken strips and retained. Again she has no nausea. She has no abdominal pain. She generally just feels weak and has been unable to walk. Urine has been obtained for urinalysis and results are pending. [facility] Disclaimer: The information contained in this section may have been updated after the patient was seen, as this information can be updated by other users. 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 Hyponatremia Abnormal weight loss Anorexia Hypoglycemia Postobstructive diuresis Acute urinary retention Adult failure to thrive Nausea Multiple fractures of pelvis with disruption of pelvic ring Hypochloremia Falls Trochanteric bursitis, right hip Skin tear of left upper extremity Contusion of elbow, left Contusion of hip, left Trochanteric bursitis, left hip Closed fracture of greater trochanter of femur With acute decompensation Pain around toenail, right foot Ingrown toenail of right foot Closed nondisplaced fracture of fifth right metatarsal bone MARY (acute kidney injury) Enteritis Hypothyroidism Foot fracture, right Polymyalgia rheumatica syndrome History of back pain History of left heart catheterization Hyperlipidemia Hypertension Cataract COVID-19 Closed fracture of fourth metatarsal of right foot Nondisplaced fracture of fifth right metatarsal bone with routine healing Myocardial infarction 2012 HLD (hyperlipidemia) CAD (coronary artery disease) Rheumatoid arthritis Surgical History H/O cataract removal with insertion of prosthetic lens History of heart artery stent Previous back surgery 2001 H/O thyroidectomy 1999 History of appendectomy 1992 History of hysterectomy 1992 History of tonsillectomy Family History Other Alcoholism Cancer Coronary artery disease Heart attack Hypertension Kidney disease Social History (Updated 09/21/25 @ 11:57 by Maria Elena Murphy RN) Smoking Status: Never smoker years smoked: 40 how long ago did patient quit smokin years alcohol intake: never substance use type: denies use current occupational status: retired Travel in the last 8 weeks?: None caregiver/support person: Yes () household members: spouse housing: house marital status: 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 needs: No Have you lived/traveled outside [place] in past 30 days?: No Contact w/someone who lives/traveled outside US past 30 days?: No Exposure to someone with infectious disease in past 14 days?: No Do you have a fever (greater than 100.4 F or 38 C)?: No Have you tested positive for COVID-19?: No Exposed to someone with COVID-19 in past 14 days?: No Do you have a sore throat?: No Do you have a cough?: No Do you have any weakness?: Yes Do you have any diarrhea?: Yes Are you experiencing any unusual bleeding?: No Do you have any muscle aches/pain?: No Do you have any abdominal pain?: No Are you experiencing loss of taste or smell?: No Other Medical History Have you received the Flu Vaccine for this season: Yes Have you received the Pneumonia Vaccine: Yes Review of Systems Constitutional Constitutional: Denies body ache(s), Denies difficulty sleeping, Reports fatigue, Denies fever(s), Denies headache(s), Reports poor appetite and Reports weakness Eyes Eyes: Reports change in vision (Vision seems to have worsened lately.) ENT Ears, Nose, Mouth, and Throat: Reports disequilibrium, Reports dizziness, Denies dysphagia, Denies headache(s), Denies nasal congestion, Denies post nasal drip, Denies sinus pain and Denies sore throat *Cardiovascular Cardiovascular: Denies chest pain, Denies dyspnea, Denies leg edema and Denies rapid heart rate *Respiratory Respiratory: Denies chest congestion, Reports cough (Periodic dry cough) and Denies dyspnea *Gastrointestinal Gastrointestinal: Denies abdominal pain, Denies belching, Reports change in bowel habits, Reports change in stool character, Denies constipation, Denies cramping, Reports diarrhea, Denies dyspepsia, Denies dysphagia, Denies hematemesis, Denies hematochezia, Denies melena, Reports nausea and Denies vomiting *Genitourinary Genitourinary: Denies difficulty voiding and Denies dysuria *Musculoskeletal Musculoskeletal: Reports abnormal gait (Was unable to walk this morning due to legs being so weak) *Neurologic Neurologic: Reports system reviewed and no additional complaints, except as documented, Reports abnormal gait (Was unable to walk this morning due to legs being so weak), Denies confusion, Reports disequilibrium, Reports dizziness, Denies headache(s) and Reports weakness Psychiatric Psychiatric: Denies confusion Endocrine Endocrine: Reports fatigue Meds Home Medications and Allergies Home Medications ?Medication ?Instructions ?Recorded ?Confirmed ?Type acetaminophen 500 mg tablet 500 mg PO Q6HP PRN Mild Pain 07/15/24 09/21/25 History (Scale Score 1-4) aspirin 81 mg tablet,delayed 81 mg PO DAILY #30 tabs 07/28/25 09/21/25 Rx release carvedilol 12.5 mg tablet 12.5 mg PO DAILY #30 tabs 08/28/25 09/21/25 Rx cyclobenzaprine 5 mg tablet 5 mg PO HSP PRN muscle spasms #30 08/28/25 09/21/25 Rx tabs hydroxychloroquine 200 mg tablet 200 mg PO DAILY #30 tabs 08/28/25 09/21/25 Rx potassium chloride 10 mEq 10 meq PO DAILY #30 tabs 08/28/25 09/21/25 Rx tablet,extended release(part/cryst) (Klor-Con M) pravastatin 40 mg tablet 40 mg PO HS #30 tabs 08/28/25 09/21/25 Rx spironolactone 25 mg tablet 25 mg PO DAILY #30 tabs 08/28/25 09/21/25 Rx tamsulosin 0.4 mg capsule 0.4 mg PO HS #30 caps 08/28/25 09/21/25 Rx sacubitril 24 mg-valsartan 26 mg 1 tab PO BID 09/02/25 09/21/25 History tablet (Entresto) levothyroxine 112 mcg tablet 112 mcg PO DAILY 09/21/25 09/21/25 History melatonin 3 mg tablet 3 mg PO HSP PRN Insomnia 09/21/25 09/21/25 History ondansetron HCl 4 mg tablet 4 mg PO Q6HP PRN nausea and 09/21/25 09/21/25 History vomiting New Prescriptions to Start Prescriptions: Allergies Allergy/AdvReac Type Severity Reaction Status Date / Time Sulfa (Sulfonamide Allergy Unknown Hives Verified 09/21/25 09:02 Antibiotics) (SULFA (SULFONAMIDE ANTIBIOTICS)) codeine Allergy Vomiting Verified 09/21/25 09:02 Penicillins Allergy Hives Verified 09/21/25 09:02 hydrocodone AdvReac Other Verified 09/21/25 09:02 Exam Data for Last 24 hours Vital signs and Labs for Last 24 Hours: Temp Pulse Resp BP Pulse Ox O2 Del Method 97.6 F 80 19 120/86 96 Room Air 09/21/25 13:00 09/21/25 13:00 09/21/25 13:00 09/21/25 13:00 09/21/25 13:00 09/21/25 13:00 Laboratory Results - last 24 hr 09/21/25 08:55: WBC 8.2, RBC 3.81 L, Hgb 12.5, Hct 36.2 L, MCV 95.0, MCH 32.8 H, MCHC 34.5, RDW 12.6, Plt Count 302, MPV 10.3, Neut % (Auto) 65.6, Lymph % (Auto) 16.1, [place] % (Auto) 12.6 H, Eos % (Auto) 3.8, Baso % (Auto) 1.3, Neut # (Auto) 5.3, Lymph # (Auto) 1.3, [place] # (Auto) 1.0, Eos # (Auto) 0.3, Baso # (Auto) 0.1, Sodium 124 L, Potassium 4.6, Chloride 91 L, Carbon Dioxide 23, Anion Gap 14.6, BUN 11, Creatinine 1.20 H, Estimated Creat Clear 36, Estimated GFR 43 L, Est GFR ( Amer) 53 L, Glucose 111 H, Lactate 1.3, Calcium 10.3 H, Magnesium 1.6, Total Bilirubin 0.5, AST 29, ALT 15, Alkaline Phosphatase 90, Troponin I < 0.01, NT-Pro-B Natriuret Pep 291, Total Protein 6.9, Albumin 4.0, Globulin 2.9, Albumin/Globulin Ratio 1.4 09/21/25 12:31: Troponin I < 0.01 I & O for Last 24 hours: Intake & Output 09/19/25 09/20/25 09/21/25 09/22/25 11:59 11:59 11:59 11:59 Intake Total 500 / 500 Balance 500 / 500 Weight 129 lb 132 lb 1 oz Constitutional Constitutional: no acute distress Comments: Family is at bedside. Patient appears comfortable lying in bed. Conversant. *Routine HEENT Exam Head: Present normocephalic and atraumatic Eye: Present PERRL; Absent conjunctival icterus, scleral injection or conjunctivae pink ENT: Present mucous membranes moist and oropharynx clear *Routine Neck Exam Neck: Present supple; Absent carotid bruit, lymphadenopathy or thyromegaly *Routine Respiratory Exam Respiratory: Present CTA bilaterally (Anteriorly and posteriorly) *Routine Cardiovascular Exam Cardiovascular: Present RRR and murmur *Routine Abdominal Exam Abdominal: Present soft and normoactive bowel sounds; Absent tenderness, distended, guarding or organomegaly *Routine Rectal Exam Rectal:: deferred *Routine Genitalia Exam Genitalia:: deferred *Routine Extremities Exam Extremities: Present full ROM and pulses intact; Absent edema or calf tenderness *Routine Neurological Exam Neurological: Present alert and oriented X3 Assessment and Plan *Assessment and plan (1) Diarrhea: Status: Acute Qualifiers: Diarrhea type: unspecified type Qualified Code(s): R19.7 - Diarrhea, unspecified Category: Medical Code(s): R19.7 - Diarrhea, unspecified (2) Acute hyponatremia: Status: Acute Category: Medical Code(s): E87.1 - Hypo-osmolality and hyponatremia (3) Acute kidney injury: Status: Acute Category: Medical Code(s): N17.9 - Acute kidney failure, unspecified (4) Chronic hyponatremia: Status: Acute Category: Medical Code(s): E87.1 - Hypo-osmolality and hyponatremia (5) HFrEF (heart failure with reduced ejection fraction): Status: Acute Category: Medical Code(s): I50.20 - Unspecified systolic (congestive) heart failure (6) Mitral regurgitation: Status: Acute Category: Medical Code(s): I34.0 - Nonrheumatic mitral (valve) insufficiency (7) Impaired mobility: Status: Acute Category: Medical Code(s): Z74.09 - Other reduced mobility (8) Weakness: Status: Acute Category: Medical Code(s): R53.1 - Weakness Plan Encourage fluids. Repeat labs in the AM. Dr. Garcia entry- Saw patient, agree with above note. Slowly replace IV fluids due to h/o CHF, check stool panel, will resume some of her home medications.
[2025-09-21] MEDS: ACETAMINOPHEN 325MG TAB 650 MG PO (14:45)
--- OUTSIDE RECORDS SUMMARY | 2025-09-21 16:25 | XMS_ITS | Encounter Summary ---
[facility] Address [address] [place] [address] Care Team Providers Care Hris Manager Name Role Phone Wyatt Torres MD Primary Care Provider Encounter Details Date Type Department Care Team (Late st Contact Info) Description 01/15/2025 Results Follow-Up [facility] [address] [facility] [address] [id number] Jennyfer Porras APRN [address] [facility] [address] [place] [address] Social History Tobacco Use Types Packs/Day Years [...] on filedocumented in this encounter Care Teams Hris Manager Relationship Specialty Start Date End Date Wyatt Torres MD [address] [facility] [address] [facility] [place] [address] PCP - General Family Medicine 12/26/24 documented as of this encounter
--- OUTSIDE RECORDS SUMMARY | 2025-09-21 16:25 | XMS_ITS | Clinical Summary ---
Author Organization [facility] Address [address] [place] [address] Care Team Providers Care Slusher Operator Name Role Phone Wyatt Torres MD [...] alcohol) a glass of wine at [facility] Comments Unknown Sex and Gender Information Value [...] - 200 mg/dL 01/15/2025 12:23 AM EDT [facility] Triglycerides 89 0 - 150 mg/dL 01/15/2025 12:23 AM EDT [facility] HDL Cholesterol 99(H) 40 - 60 mg/dL 01/15/2025 12:23 AM EDT [facility] LDL Cholesterol 75 0 - 100 mg/dL 01/15/2025 12:23 AM EDT [facility] VLDL Cholesterol 16 5 - 40 mg/dL 01/15/2025 12:23 AM EDT [facility] LDL/HDL Ratio 0.74 01/15/2025 12:23 AM EDT [facility] Blood Venipuncture / Unknown 01/14/2025 10:25 AM EDT 01/14/2025 10:26 AM EDT Narrative [facility] - 01/15/2025 12:23 AM EDT Cholesterol [...] MD LAB BLOOD ORDERABLES Final Resul t [facility]
[address] [place] [address], from Last 3 Months or Most Recently Relevant to Health Maintenance Insurance MEDICARE A & B [employer] [facility] [place] [id number] Care Teams Slusher Operator Relationship Specialty Start Date End Date Wyatt Torres MD [address] [facility] [address] [facility] [address] [place] [address] PCP - General Family Medicine 12/26/24
--- OUTSIDE RECORDS SUMMARY | 2025-09-21 16:25 | XMS_ITS | Encounter Summary ---
Author Organization Healthcare Address [address] [place] [address] Care Team Providers Care Lugger Name Role Phone Amparo Arrington MD Primary Care Provider [phone] Encounter Details Date Type Department Care Team (Late st Contact Info) Description 08/24/2025 Orders Only [facility] [address] [place] [phone] Anita Luu Hyponatremia (Primary Dx); Vitamin [...] Description 10/23/2025 12:20 PM EST Office Visit [facility] [address] [place] [address] Vicente Rodrigez MD [address] [place] [phone] Scheduled Orders Name Type Priority Associated [...] documented as of this encounter Care Teams Lugger Relationship Specialty Start Date End Date Amparo Arrington MD [address] [place] [address] PCP - General 03/04/21 documented as of this encounter
--- OUTSIDE RECORDS SUMMARY | 2025-09-21 16:26 | XMS_ITS | Clinical Summary ---
Author Organization [facility] Address [address] [place] [address] Care Team Providers Care Reliability Engineer Name Role Phone Amparo Arrington MD Primary Care Provider [phone] Allergies Active Allergy Reactions Criticality Noted Date [...] PMF's reviewed and stable PT/OT as tolerated [facility] Acquired hypothyroidism 06/30/2024 Overview (06/30/2024): Continue home levothyroxine Complicates all aspects of care Coronary artery disease invo [place] coronary artery of [place] heart without angina pectoris 06/30/2024 Overview (06/30/2024): [...] Department Care Team Description 08/24/2025 Orders Only [facility] [address] [place] [...] Description 10/23/2025 12:20 PM EST Office Visit [facility] [address] [place] [phone] Vicente Rodrigez MD [address] [place] [phone] Health Maintenance Due Date Last Done Comments [facility]-Bone Density Scan 1945 [facility]-Depression Screening 1946 [facility]-Medicare Annual Wellness (AWV) 1945 [facility]-Infant/Child/Adol SDOH Screenings 01/01/1946 [facility]- SDOH Screenings 1964 [facility]-Adult SDOH Screenings 1964 [facility]-Zoster Vaccines (1 of 2) 1965 [facility]-RSV Vaccine: 60+ Years or (1 - 1-dose 75+ series) 2021 [id number] Vaccine (2024- season) 2025 08/19/2024, 08/16/2023, 05/29/2023, [...] ORDERABLES Final Re sult [facility] [address] [place] [address] from Last 3 Months or Most Recently Relevant to Health Maintenance Insurance MEDICARE [facility] Advance Directives * Full Code (Latest Code Status on File) Date Activated Date Inactivated Comments 07/04/2024 1:04 PM * Full Code Date Activated Date Inactivated Comments 06/30/2024 8:06 AM 07/04/2024 1:04 PM Question Answer Comments Patient has decision-making capacity? Yes Care Teams Reliability Engineer Relationship Specialty Start Date End Date Amparo Arrington MD [address] [facility] [address] [place] [address] PCP - General 03/04/21
--- OUTSIDE RECORDS SUMMARY | 2025-09-21 16:28 | XMS_ITS | Clinical Summary ---
Author Organization [facility] Address [address] [place] [address] Phone Care Team Providers Care Heel Builder Name Role Phone Unavailable Primary Care Provider [...] B MEDICARE IN PART A AND B [facility]
--- OUTSIDE RECORDS SUMMARY | 2025-09-21 16:28 | XMS_ITS | Patient Health Record ---
[facility] Organization [facility] Address [address] [facility] [address] [place] [id number] Care Team Providers Care Youth Director Name Role Phone Raul Torres Primary Care Provider Marie Helm Unavailable [phone] Oneida Edwards Unavailable [phone] Allergies Allergen (clinical drug ingredient) Drug/Non Drug [...] 102 Performing Lab: Notes/Report: Test performed by [facility] [facility] , [address], [place] [address] Gilmer Lowe MD, Glue Spreading Machine Operator CLIA: [id number] Sodium 122 135-145 mmol/L Potassium 4.2 3.5-5.3 [...] 1.015 Ketone neg Bili neg Gluc neg H-BMP Reviewed date:07/28/2025 11:32:54 AM Interpretation: Performing [...] 7.6 4.8-10.8 K/mm3 Delta: 15.6 o n 07/20/25-634 RBC 3.87 4.20-5.40 M/mm3 HGB 13.0 12.2-16.2 [...] K/mm3 NRBC# 0 IG# 0.07 H-BMP Reviewed date:07/24/2025 09:37:12 AM Interpretation: Performing Lab: Notes/Report: NA 122 136-145 mmol/L K 3.6 3.5-5.1 mmoL/L CL 91 98-107 mmol/L CO2 23 22.0-30.0 mmol/L GAP 11.6 5-15 mEq/L BUN 6 7-17 mg/dl CREATT 0.70 0.52-1.04 mg/dl CRCLE 48 50-200 mL/min GFRAA 98 >60 ML/MIN EGFR 81 >60 ml/min GLU 95 74-100 mg/dl CA 8.9 8.4-10.2 mg/dl H-CBC Reviewed date:07/24/2025 09:37:12 AM [...] Cr 1.13, gfr 50 Performing Lab: Notes/Report: CLIA: [id number] Gilmer Lowe MD, Glue Spreading Machine Operator [address] [place] [address] , [address] , [place] [address] Test performed by [employer], [facility] Sodium 131 135-145 mmol/L Potassium 4.6 3.5-5.3 mmol/L Chloride 95 97-108 mmol/L CO2 22 22-32 mmol/L Glucose 126 65-99 mg/dL BUN 13 8-23 mg/dL Creatinine 1.13 0.50-1.00 mg/dL Calcium 9.5 8.6-10.4 mg/dL eGFR by Creatinine 50 >59 mL/min/1.73m2 H-CBC Reviewed date:03/13/2025 08:48:08 AM Interpretation: Performing [...] 81 74-100 mg/dl CA 8.3 8.4-10.2 mg/dl H-BMP Reviewed date:03/12/2025 11:04:11 AM [...] Biotin is occasionally prescribed for medical conditions. H-TSH Reviewed date:03/17/2025 11:12:11 AM Interpretation: Performing [...] 87 74-100 mg/dl CA 8.3 8.4-10.2 mg/dl H-BMP Reviewed date:07/27/2025 08:33:48 AM Interpretation: Performing [...] 0.1 0-0.2 K/mm3 NRBC# 0 IG# 0.69 BMP Reviewed date:04/02/2025 02:57:40 PM Interpretation: Performing Lab: Notes/Report: CBC Fingerstick (in house) Reviewed date:02/05/2025 01:51:50 [...] 01:09:28 PM Interpretation: Performing Lab: Notes/Report: CLIA: [id number] Gilmer Lowe MD, Glue Spreading Machine Operator [address] [place] [address] , [place] [address] Test performed by [employer] [facility] Sodium 128 135-145 mmol/L Potassium 3.7 3.5-5.3 mmol/L Chloride 92 97-108 mmol/L CO2 24 22-32 mmol/L Glucose 93 65-99 mg/dL BUN 16 8-23 mg/dL Creatinine 1.02 0.50-1.00 mg/dL Calcium 9.2 8.6-10.4 mg/dL eGFR by Creatinine 56 >59 mL/min/1.73m2 Cortisol AM Reviewed date:04/14/2025 01:09:28 PM Interpretation: Performing Lab: Notes/Report: Test performed by [facility] [address] [place] [address] , [address], [place] [address] Gilmer Lowe MD, Glue Spreading Machine Operator CLIA: [id number] Cortisol AM 5.3 6.0-18.4 ug/dL CBC Venipuncture (in house) Reviewed date:04/16/2025 11:50:29 [...] Tdap-Adacel (over 7yrs) IM Intramuscular 01/07/2008 Administered Prevnar (PCV13) IM Intramuscular 05/14/2020 Administered H1N1 flu vaccine IM Intramuscular 09/13/2009 Administered Fluzone Quad (6months&older) IM Intramuscular 08/06/2019 Administered Fluzone High Dose (65yr and older) IM Intramuscular 07/12/2020 Administered Fluzone High Dose (65yr and older) IM Intramuscular 07/11/2022 Administered Fluzone High Dose (65yr and older) IM Intramuscular 07/15/2025 Administered COVID 19 Moderna Unknown 11/18/2020 Administered COVID 19 Moderna Unknown 12/16/2020 Administered COVID 19 Moderna Unknown 01/24/2022 Administered COVID 19 Moderna Unknown 06/17/2021 Administered Fluzone High Dose (65yr and older) IM Intramuscular 07/12/2023 Administered Fluzone High Dose (65yr and older) IM Intramuscular 07/26/2021 Administered Fluzone High Dose (65yr and older) IM Intramuscular 07/25/2018 Administered Fluzone High Dose (65yr and older) IM Intramuscular 07/24/2016 Administered PNEUMOVAX 23 VACCINE IM Intramuscular 07/12/2023 Administe red Tetanus Tdap-Adacel (over 7yrs) IM Intramuscular 09/03/2018 Administered xFlu shot-36 months and older IM Intramuscular 08/31/2009 Administered Fluzone High Dose (65yr and older) IM Intramuscular 08/14/2024 Administered Fluzone High Dose (65yr and older) IM Intramuscular 08/07/2017 Administered Fluzone High Dose (65yr and older) IM Intramuscular 08/16/2015 Administered Problems Problem Type SNOMED Code ICD Code Onset Dates Problem Status W/U Status Risk Notes Problem Essential hypertension (92487656) Essential (primary) hypertension (I10) Active confirmed Problem Coronary arteriosclerosis (33803337) ASCVD (arteriosclerotic cardiovascular disease) (I25.10) Active confirmed Problem Essential hypertension (28163483) Essential hypertension (I10) Active confirmed Problem Gout attack (912461200) Gout attack (M10.9) Active confirmed Problem Rhinitis (28790953) Rhinitis (J31.0) Active con firmed Problem Osteopenia (051168882) Osteopenia (M85.80) Active confirmed Problem Altered mental statu s (368258641) Altered mental state (R41.82) Active confirmed Problem Environmental allerg y (067412112) Environmental allergies (Z91.048) Active confirmed Problem Memory loss (98614533) Memory loss (R41.3) Active confirmed Problem Hypomagnesemia (483615032) Hypomagnesemia (E83.42) Active confirmed Problem Acute non-ST segment elevation myocardial infarction (668391005) Non-ST elevation (NSTEMI) myocardial infarction (I21.4) Active confirmed Problem Inflammatory polyarthropathy (660719378) 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) Active confirmed Problem Polymyalgia rheumatica (03993459) Polymyalgia rheumatica (M35.3) Active confirmed Problem Ataxic gait (08170765) Ataxic gait (R26.0) Active confirmed Problem Acquired hypothyroidism (905157618) Acquired hypothyroidism (E03.9) Active confirmed Problem Neck pain (36674613) Neck pain (M54.2) Active c onfirmed Problem Paresthesia (finding ) (47879610) Paresthesias (R20.2) Active confirmed Problem History of circulatory system disease (241502947) 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) Active confirmed Problem Muscle spasm (72311659) Muscle spasm (M62.838) Active confirmed Problem Rheumatoid arthritis (91877418) Rheumatoid arthritis (M06.9) Active confirmed Problem Sleep disorder (72982490) Sleep disorder (G47.9) Active confirmed Problem Cervical disc disorder (846265113) DDD (degenerative disc disease), cervical (M50.30) Active confirmed Problem Primary osteoarthritis (332176967) Primary osteoarthritis (M19.91) Active confirmed Problem Dyslipidemia (066028736) Dyslipidemia (E78.5) Active confirmed Problem Leukocytosis (648888086) Leukocytosis, unspecified (D72.829) Active confirmed Problem Impairment of balanc e (559818127) Balance problem (R26.89) Active confirmed Problem Anemia (040846622) Mild anemia (D64.9) Active c onfirmed Problem Rheumatoid arthritis (84847346) Rheumatoid arthritis, involving unspecified site, unspecified whether rheumatoid factor present (M06.9) Active confirmed Problem Sialodocholithiasis (20177668) Sialodocholithiasis (K11.5) Active confirmed Vital Signs Heart Rate 60 /min 09/03/2025 Respiratory Rate 20 /min 03/31/2025 Blood pressure diastolic 70 mm Hg 09/03/2025 Height 65 in 09/03/2025 Blood pressure systolic 120 mm Hg 09/03/2025 Weight 000 lbs 09/03/2025 BMI 25.32 kg/m2 06/16/2025 Encounters Encounter Location Date Provider Diagnosis [facility] [address] [facility] [address] [place] [id number] 09/30/2024 R John Torres Leg edema R60.0 ; Hypokalemia E87.6 and Pain of hand, unspecified laterality M79.643 [facility] [address] [facility] [address] [place] [id number] 11/13/2024 R John Torres Chronic diarrhea K52 .9 and Rheumatoid arthritis, involving unspecified site, unspecified whether rheumatoid factor present M06.9 [facility] [address] [facility] [address] [place] [id number] 12/12/2024 Oneida Crowdy Open wound of right lower extremity, initial encounter S81.801A [facility] [address] [place] [id number] 12/25/2024 R John Torres Rheumatoid arthritis M06.9 [facility] [address] [place] [id number] 02/05/2025 R John Rodriguesfleet Acute sinusitis J01. 90 ; Inflammatory polyarthropathy M06.4 ; Polymyalgia rheumatica M35.3 ; Acquired hypothyroidism E03.9 ; Dyslipidemia E78.5 ; Essential hypertension I10 and BMI 24.0-24.9, adult Z68.24 [facility] [address] [place] [id number] 02/17/2025 R John Osmant Glossitis K14.0 ; Shoulder pain M25.519 and BMI 24.0-24.9, adult Z68.24 [address] [place] [id number] 03/31/2025 Marie Helm Polymyalgia rheumati ca M35.3 ; Rib fractures S22.39XA ; Acquired hypothyroidism E03.9 ; Dyslipidemia E78.5 ; Essential hypertension I10 ; Nausea R11.0 ; Leg edema R60.0 ; Hx of arteriosclerotic cardiovascular disease Z86.79 ; Accidental fall, subsequent encounter W19.XXXD ; Sleep disorder G47.9 and Hypokalemia E87.6 [facility] [address] [place] [id number] 04/09/2025 R John Rodriguesfleet Hyponatremia E87.1 ; Rib fractures S22.39XA ; Chronic diarrhea K52.9 and BMI 23.0-23.9, adult Z68.23 [facility] [address] [place] [id number] 04/16/2025 R John Osmant Acute sinusitis J01. 90 ; Adhesive capsulitis of left shoulder M75.02 ; Dyslipidemia E78.5 ; Rib fractures S22.39XA ; Leg edema R60.0 and Onychomycosis B35.1 [facility] [address] [place], [place] [id number] 05/07/2025 R John Melissa Inflammatory polyarthropathy M06.4 [facility] [address] [facility] [address] [place] [id number] 05/19/2025 R John Melissa Hyponatremia E87.1 ; Muscle weakness M62.81 and BMI 23.0-23.9, adult Z68.23 [facility] [address] [facility] [address] [place], [place] [id number] 05/26/2025 R John Melissa Hyponatremia E87.1 ; Memory loss R41.3 and BMI 24.0-24.9, adult Z68.24 [facility] [address] [facility] [address] [place], [place] [id number] 05/28/2025 R John Melissa Altered mental state R41.82 [facility] [address] [place], [place] [id number] 06/16/2025 R John Melissa Rheumatoid arthritis M06.9 ; Leg edema R60.0 and Hyponatremia E87.1 [facility] [address] [place], [place] [id number] 07/15/2025 R John Melissa Encounter for immunization Z23 [facility] [address] [place], [place] [id number] 09/03/2025 R John Melissa Rheumatoid arthritis , involving unspecified site, unspecified whether rheumatoid factor present M06.9 and ASCVD (arteriosclerotic cardiovascular disease) I25.10 [facility] [address] [facility] [address] [place], [place] [id number] 09/22/2024 R John Melissa Rib fractures S22.39 XA [facility] [address] [facility] [address] [place] [id number] 10/01/2024 R John Melissa [facility] [address] [place] [id number] 10/08/2024 R John Melissa [facility] [address] [place] [id number] 10/23/2024 R John Melissa Leg edema R60.0 [facility] [address] [place] [id number] 11/18/2024 R John Melissa Rib fractures S22.39 XA [facility] [address] [place] [id number] 11/25/2024 R John Melissa [facility] [address] [place] [id number] 12/12/2024 R John Melissa Chronic diarrhea K52 .9 [facility] [address] [place] [id number] 12/17/2024 R John Melissa Rib fractures S22.39 XA [facility] [address] [place] [id number] 12/26/2024 R John Melissa [facility] [address] [place] [id number] 2024 R John Melissa Chronic diarrhea K52 .9 [facility] [address] [place] [id number] 01/06/2025 R John Melissa [facility] [address] [place] [id number] 01/13/2025 R John Melissa Rib fractures S22.39 XA [facility] [address] [place] [id number] 01/21/2025 R Ojhn Melissa [facility] [address] [place] [id number] 01/30/2025 R John Melissa Rib fractures S22.39 XA [facility] [address] [place] [id number] 02/02/2025 R John Melissa [facility] [address] [place] [id number] 02/04/2025 R John Melissa Chronic diarrhea K52 .9 [facility] [address] [place] [id number] 02/16/2025 R John Melissa Rib fractures S22.39 XA [facility] [address] [place] [id number] 03/02/2025 Marie Helm Rib fractures S22.39 XA [facility] [address] [place] [id number] 03/16/2025 R John Melissa [facility] [address] [place] [id number] 03/23/2025 R John Melissa [facility] [address] [place] [id number] 04/02/2025 R John Melissa [facility] [address] [place] [id number] 04/07/2025 R John Melissa Leg edema R60.0 [facility] [address] [place] [id number] 04/09/2025 R John Melissa Leg edema R60.0 [facility] [address] [place] [id number] 04/10/2025 R John Melissa [facility] [address] [place] [id number] 04/13/2025 R John Melissa [facility] [address] [place] [id number] 04/13/2025 R John Melissa Acquired hypothyroid ism E03.9 [facility] [address] [place] [id number] 04/14/2025 R John Melissa [facility] [address] [place] [id number] 04/19/2025 R John Melissa Screening for osteoporosis Z13.820 [facility] [address] [place] [id number] 04/20/2025 R John Melissa [facility] [address] [place], [place] [id number] 04/22/2025 R John Melissa Nausea R11.0 [facility] [address] [place] [id number] 05/06/2025 R John Melissa Hypokalemia E87.6 [facility] [address] [place] [id number] 05/26/2025 R John Melissa [facility] [address] [place] [id number] 05/29/2025 Oneida Crowdy [facility] [address] [place] [id number] 06/02/2025 R John Melissa [facility] [address] [place] [id number] 06/02/2025 R John Melissa [facility] [address] [place] [id number] 06/09/2025 R John Melissa [facility] [address] [place] [id number] 06/09/2025 R John Melissa [facility] [address] [place] [id number] 06/18/2025 R John Melissa Leg edema R60.0 [facility] [address] [place] [id number] 06/25/2025 R John Melissa [facility] [address] [place] [id number] 07/06/2025 R John Melissa [facility] [address] [place] [id number] 07/24/2025 R John Melissa [facility] [address] [place] [id number] 08/04/2025 R John Melissa [facility] [address] [facility] 36 [facility] [address] [place] [id number] 09/07/2025 Raul Coleman [address] [facility] 36 [facility] [address] [place] [id number] 09/14/2025 Raul Torres Assessments Encounter Date Diagnosis (ICD Code) Assessment Notes Treatment Notes Treatment Clinical Notes Section Notes 09/22/2024 Rib fractures (ICD-10 - S22.39XA) 09/30/2024 [...] Encounter for immunization (ICD-10 - Z23) 09/03/2025 ASCVD (arteriosclerotic cardiovascular disease) (ICD-10 - I25.10) Continue f/u with cardiology 09/03/2025 Rheumatoid arthritis, involving unspecified site, unspecified whether rheumatoid factor present (ICD-10 - M06.9) 05/28/2025 Altered mental state [...] Date MEDICARE PART B [address] [address] [place] [phone] [id number] KWASI HUYNH Self - patient is the insured [employer] [facility] [address] [phone] [id number] KWASI HUYNH Self - patient is the insured Medications Administered Medication Instructions Date of Administration Dosage Notes Benadryl 10/21/2018 .25 mL Depo- Medrol 40 mg/ml 04/23/2018 1.5 mL Depo- Medrol 40 mg/ml 01/02/2022 1.5 mL Depo- Medrol 40 mg/ml 01/09/2022 1 mL Depo- Medrol 40 mg/ml 04/17/2022 1.5 mL Depo- Medrol 40 mg/ml 08/04/2022 1.5 mL Depo- Medrol 40 mg/ml 05/15/2023 1.5 mL Depo- Medrol 40 mg/ml 06/21/2023 1 mL Depo- Medrol 40 mg/ml 12/11/2023 1 mL Depo- Medrol 40 mg/ml 09/30/2024 1 mL Depo- Medrol 40 mg/ml 11/13/2024 1 mL Depo- Medrol 40 mg/ml 04/09/2025 1 mL Depo- Medrol 40 mg/ml 06/16/2025 1 mL Depo- Medrol 40 mg/ml 09/03/2025 1 mL Dexamethasone 12/16/2018 1 mL Dexamethasone 12/18/2023 1.5 mL phenergan 25 mg/ml 11/29/2023 25 mg Dexamethasone 11/20/2023 1 mL Dexamethasone 03/16/2022 1 mL Dexamethasone 12/19/2019 1 mL Dexamethasone 03/10/2019 1 mL Dexamethasone 03/07/2019 1 mL Dexamethasone 12/01/2013 1 mL Depo- Medrol 40 mg/ml 12/25/2024 1 mL Depo- Medrol 40 mg/ml 01/10/2024 1 mL Depo- Medrol 40 mg/ml 09/04/2023 1 mL Depo- Medrol 40 mg/ml 03/08/2023 1.5 mL Depo- Medrol 40 mg/ml 01/23/2023 1.5 mL Depo- Medrol 40 mg/ml 12/07/2022 1.5 mL Depo- Medrol 40 mg/ml 09/18/2022 1.5 mL Depo- Medrol 40 mg/ml 02/13/2020 1.5 mL Depo- Medrol 40 mg/ml 11/28/2018 1.5 mL Depo- Medrol 40 mg/ml 11/25/2018 1.5 mL Depo- Medrol 40 mg/ml 12/08/2013 1.5 mL depo medrol 80 mg 05/07/2025 1.5 mL Dexamethasone 02/05/2025 1.5 mL Depo- Medrol 40 mg/ml 03/11/2024 1 mL Dexamethasone 04/16/2025 1 mL Medical (General) History Medical History History ICD Code hyperlipidemia-followed by Dr. Arrington hypertension Hypothyroidism/goiter kidney stones allergic rhinitis ASCVD: [place] - 09/2013-followed by Dr. Arrington q 6 months cataracts Hyperuricemia Inflammatory arthritis - Dr. Cheng polymyalgia rheumatica - Dr. Skylar Bhatia Covid vaccine x2 Oct/Nov 2020 Surgical History Surgery Date(Month/Year) Thyroidectomy/Goiter removal 1999 Back 2001 Total Hysterectomy 1992 Tonsillectomy child Cardiac Stent Placed-[facility]-Dr Arrington. Dr. Santo 10/19/2013 Cataract 10/2017 Hospitalization History Reason Date(Month/Year) Facial Pain, Sinus Blockage- [facility] 01/2018 Heart Attack- [facility] 09/2013 Itching, Swelling in Hands- [facility] 10/21 kidney stones 1992 [facility] : fall with multiple FX ribs on the right; hyponatremia and hypokalemia 03/12-03/15/2025 Dehydration, Failure to Thrive, Acute Ur inary Retention- [facility] 07/14- Multiple rib and pelvic frac tures; hyponatremia; rheumatoid arthritis; ASCVD- 06/30-
--- OUTSIDE RECORDS SUMMARY | 2025-09-21 16:28 | XMS_ITS | Clinical Summary ---
Author Organization [facility] Address [address] [place] [address] Care Team Providers Care Professional Fighter Name Role Phone Wyatt Torres MD Primary Care Provider [phone] Source Comments This information has been disclosed [...] therelease of HIV test results or diagnoses. [id number] Allergies Active Allergy Reactions Criticality Noted [...] A [employer] Care Teams Professional Fighter Relationship Specialty Start Date End Date Wyatt Torres MD [address] [place] [id number] PCP - General Family Medicine 04/09/23
--- NOTE | 2025-09-21 18:59 | PC.NURSE ---
patient has not been able to void during this shift, bladder scan 411, archie paged. Patient tried to use bathroom but stated she could not go.
--- NOTE | 2025-09-21 19:04 | PC.NURSE ---
spoke to rosa johns if patient does not pee until am. bladder scan if pt has any symptoms of urine retention
[2025-09-21] MEDS: MELATONIN 5MG TABLET 5 MG PO (20:12)
[2025-09-21] MEDS: PANTOPRAZOLE 40MG TABLET 40 MG PO (20:12)
[2025-09-21] MEDS: TAMSULOSIN 0.4MG CAPSULE 0.4 MG PO (20:12)
[2025-09-21 22:05] LABS: Clostridium Difficile A/B, PCR Not Detected (NotDetected); Cyclospora Cayetanesis Not Detected (NotDetected); Salmonella, PCR Not Detected (NotDetected); Shiga-like toxin E coli Not Detected (NotDetected); Shigella Enterovasive E coli Not Detected (NotDetected); Vibrio, PCR Not Detected (NotDetected); Yersinia Entercolitica, PCR Not Detected (NotDetected)
[2025-09-22] VITALS: BP 113/65; PULSE 78; RESP 16; TEMP 36.4; O2SAT 93
[2025-09-22 03:36] LABS: Microscopic, Urine URINE MICROSCOPIC (MICROSCOPIC)
[2025-09-22 03:51] LABS: Bilirubin,Urine Negative (Negative); Color,Urine YELLOW (Yellow); Glucose,Urine (UA) Negative (Negative); Ketones,Urine Negative (Negative); Leukocyte Esterase,Urine 1+ (Negative); PH,Urine 6.0 (5.0-8.5); Protein,Urine Negative (Negative); Specific Gravity, Urine 1.010 (1.005-1.030); Urobilinogen,Urine 0.2 EU/dl (0.2)
[2025-09-22 04:00] VITALS: BP 115/63; PULSE 90; RESP 16; TEMP 36.5; O2SAT 96; BMI 21.7
--- NOTE | 2025-09-22 04:26 | PC.NURSE ---
Pt has remained alert and oriented and has tolerated room air. She was able to void twice this shift. Ns has remained infusing. No complaints at this time, call light within reach.
[2025-09-22] MEDS: LEVOTHYROXINE 112MCG (0.112MG) TAB 112 MCG PO (06:20)
[2025-09-22 06:21] LABS: Hematocrit 33.1 % (37.0-47.0); Immature Granulocytes % 0.5 %; Mean Corpuscular HGB Conc 33.8 g/dL (31.8-35.4); Mean Corpuscular Hemoglobin 32.1 pg (27.0-31.2); Mean Corpuscular Volume 94.8 fl (81-99); Nucleated Red Blood Cells % 0 %; Platelet Count 240 K/mm3 (142-424); Red Blood Count 3.49 M/mm3 (4.20-5.40); Red Cell Distribution Width-SD 44.5 fL; White Blood Count 6.4 K/mm3 (4.8-10.8)
[2025-09-22 06:28] LABS: Chloride 98 mmol/L (98-107)
[2025-09-22 06:29] LABS: Potassium 3.9 mmoL/L (3.5-5.1); Sodium 129 mmol/L (136-145)
[2025-09-22 06:30] LABS: Hemoglobin 11.5 g/dL (12.2-16.2)
[2025-09-22 06:32] LABS: Anion Gap 13.9 mEq/L (5-15); Blood Urea Nitrogen 10 mg/dl (7-17); Calcium 10.0 mg/dl (8.4-10.2); Carbon Dioxide 21 mmol/L (22.0-30.0); Creatinine Clearance Estimated 39 mL/min (50-200); Creatinine,Serum 1.10 mg/dl (0.52-1.04); Estimated Glomerular Filt Rate 48 ml/min (>60); GFR (African American) 58 ML/MIN (>60); Glucose 81 mg/dl (74-100); Magnesium 1.5 mg/dl (1.6-2.3)
[2025-09-22 08:00] VITALS: BP 96/55; PULSE 93; RESP 18; TEMP 36.4; O2SAT 97
--- NOTE | 2025-09-22 08:35 | EXP.PN ---
Subjective *Date: 09/22/25 *Time: 08:48 Interval history: Patient did not sleep much last night. She had 1 large amount of stool. She is voiding QS. She has been able to eat without any nausea. She has been up to the bathroom. Lab data this morning: white blood cell count of 6400 with a hemoglobin 11.5 hematocrit of 33.1. Blood chemistries have improved with a sodium of 129. Potassium is 3.9. Renal function with a creatinine of 1.10 and BUN of 10. Lab data this morning Exam Data for Last 24 hours Vital signs and Labs for Last 24 Hours: Temp Pulse Resp BP Pulse Ox O2 Del Method 97.7 F 90 16 115/63 96 Room Air 09/22/25 04:00 09/22/25 04:00 09/22/25 04:00 09/22/25 04:00 09/22/25 04:00 09/22/25 06:35 Laboratory Results - last 24 hr 09/21/25 08:55: WBC 8.2, RBC 3.81 L, Hgb 12.5, Hct 36.2 L, MCV 95.0, MCH 32.8 H, MCHC 34.5, RDW 12.6, Plt Count 302, MPV 10.3, Neut % (Auto) 65.6, Lymph % (Auto) 16.1, Kimball % (Auto) 12.6 H, Eos % (Auto) 3.8, Baso % (Auto) 1.3, Neut # (Auto) 5.3, Lymph # (Auto) 1.3, Kimball # (Auto) 1.0, Eos # (Auto) 0.3, Baso # (Auto) 0.1, Sodium 124 L, Potassium 4.6, Chloride 91 L, Carbon Dioxide 23, Anion Gap 14.6, BUN 11, Creatinine 1.20 H, Estimated Creat Clear 36, Estimated GFR 43 L, Est GFR ( Amer) 53 L, Glucose 111 H, Lactate 1.3, Calcium 10.3 H, Magnesium 1.6, Total Bilirubin 0.5, AST 29, ALT 15, Alkaline Phosphatase 90, Troponin I < 0.01, NT-Pro-B Natriuret Pep 291, Total Protein 6.9, Albumin 4.0, Globulin 2.9, Albumin/Globulin Ratio 1.4 09/21/25 12:31: Troponin I < 0.01 09/21/25 21:50: Stl C. cayetanensis PCR Not detected, Stool Campylobacter PCR Not detected, Stl C.difficile Tox PCR Not detected, Stool Cryptosporidium PCR Not detected, Stl E.coli Shiga Tox PCR Not detected, Stool Giardia Lamblia PCR Not detected, Stool Salmonella PCR Not detected, Stl Shigella/EIEC PCR Not detected, St Y.enterocolitica PCR Not detected, Stool Vibrio (PCR) Not detected, Stl Norovirus GI/GII PCR Not detected 09/22/25 03:20: Urine Color Yellow, Urine Appearance Clear, Urine pH 6.0, Ur Specific [place] 1.010, Urine Protein Negative, Urine Glucose (UA) Negative, Urine Ketones Negative, Urine Blood Trace-i, Urine Nitrate Negative, Urine Bilirubin Negative, Urine Urobilinogen 0.2, Ur Leukocyte Esterase 1+ A, Urine RBC 3-5, Urine WBC 10-20 09/22/25 05:35: WBC 6.4, RBC 3.49 L, Hgb 11.5 L, Hct 33.1 L, MCV 94.8, MCH 32.1 H, MCHC 33.8, RDW 12.8, Plt Count 240, MPV 10.4, Neut % (Auto) 57.4, Lymph % (Auto) 20.3, Kimball % (Auto) 13.8 H, Eos % (Auto) 6.3, Baso % (Auto) 1.7, Neut # (Auto) 3.7, Lymph # (Auto) 1.3, Kimball # (Auto) 0.9, Eos # (Auto) 0.4, Baso # (Auto) 0.1, Sodium 129 L, Potassium 3.9, Chloride 98, Carbon Dioxide 21 L, Anion Gap 13.9, BUN 10, Creatinine 1.10 H, Estimated Creat Clear 39, Estimated GFR 48 L, Est GFR ( Amer) 58 L, Glucose 81 D, Calcium 10.0, Magnesium 1.5 L I & O for Last 24 hours: Intake & Output 09/19/25 09/20/25 09/21/25 09/22/25 11:59 11:59 11:59 11:59 Intake Total 500 / 500 200 / 200 Output Total 500 / 500 Balance 500 / 500 -300 / -300 Weight 129 lb 130 lb Constitutional Constitutional: no acute distress *Routine Respiratory Exam Respiratory: Present CTA bilaterally (Anteriorly and posteriorly) *Routine Cardiovascular Exam Cardiovascular: Present RRR *Routine Abdominal Exam Abdominal: Present soft and normoactive bowel sounds; Absent tenderness *Routine Extremities Exam Extremities: Absent edema or calf tenderness *Routine Neurological Exam Neurological: Present alert and oriented X3 Assessment and Plan *Assessment and plan (1) Diarrhea: Status: Acute Qualifiers: Diarrhea type: unspecified type Qualified Code(s): R19.7 - Diarrhea, unspecified Category: Medical Code(s): R19.7 - Diarrhea, unspecified (2) Acute hyponatremia: Status: Acute Category: Medical Code(s): E87.1 - Hypo-osmolality and hyponatremia (3) Acute kidney injury: Status: Acute Category: Medical Code(s): N17.9 - Acute kidney failure, unspecified (4) Chronic hyponatremia: Status: Acute Category: Medical Code(s): E87.1 - Hypo-osmolality and hyponatremia (5) HFrEF (heart failure with reduced ejection fraction): Status: Acute Category: Medical Code(s): I50.20 - Unspecified systolic (congestive) heart failure (6) Mitral regurgitation: Status: Acute Category: Medical Code(s): I34.0 - Nonrheumatic mitral (valve) insufficiency (7) Impaired mobility: Status: Acute Category: Medical Code(s): Z74.09 - Other reduced mobility (8) Weakness: Status: Acute Category: Medical Code(s): R53.1 - Weakness Plan Lab data has improved. Patient states she ambulated to the bathroom without difficulty. She is most likely ready for discharge. Dr. Garcia entry - Saw patient, agree with above note.
--- NOTE | 2025-09-23 09:52 | SW/DCPLANNER ---
Spoke with patient's daughter on the phone. Patient's daughter stated that her mom is doing well since her discharge and that she still gets a little dizzy. Patient's daughter stated that they are aware of her upcoming appointment. Patient's daughter stated that they were not prescribed any new medicine. Vahe Davis
--- NOTE | 2025-09-25 08:11 | PC.NURSE ---
Urine culture forwarded to hospitalist.
--- NOTE | 2025-09-28 13:26 | EXP.DC.SUM ---
General Admission date:: 09/21/25 Discharge date: 09/22/25 HPI HPI HPI: Ms. Pimentel is a 79-year-old female with a history of hyperlipidemia, hypertension, hypothyroidism, kidney stones, hyperuricemia, Ingris myalgia rheumatica, chronic hyponatremia who presented to [facility] emergency room for evaluation after being unable to walk this a.m. She states she has had diarrhea for the last few days mostly 2 stools a day. She has had no vomiting. She has been eating very little for the last week but has been retaining fluids. She has just generally not felt very well. She denies having any abdominal pain, nausea, diarrhea, hematemesis, and melena. With evaluation in the emergency room she was found to have a sodium of 124 and was felt to be dehydrated. She was given 500 cc of IV fluids and admitted for further evaluation and treatment. Renal function showed a BUN of 11 and a creatinine of 1.2. Potassium was normal at 4.6. Hemoglobin was 12.5 with a hematocrit of 36.2. White blood cell count was 8200. Troponin I was normal. Liver function studies were normal. Magnesium was 1.6. Chest x-ray was negative for any acute process. At the time of this exam she notes that she has just eaten a couple of chicken strips and retained. Again she has no nausea. She has no abdominal pain. She generally just feels weak and has been unable to walk. Urine has been obtained for urinalysis and results are pending. Hospital Course Hospital Course Hospital Course: On admission patient was started on IV fluids cautiously. Stool studies were negative. Sodium increased to 129 from 124. Potassium was normal. Renal function did improve. The day after admission patient was voiding QS. She had been able to eat without any nausea. She was able to ambulate to the bathroom with minimal difficulty. She was stable to be discharged home. Discharged home in stable and satisfactory condition. She was to follow-up with Dr. Torres on 10/06/2025. Medications as per reconciliation sheet. Exam Data for Last 24 hours Vital signs and Labs for Last 24 Hours: Temp Pulse Resp BP Pulse Ox O2 Del Method 97.5 F L 93 H 18 96/55 L 97 Room Air 09/22/25 08:00 09/22/25 08:00 09/22/25 08:00 09/22/25 08:00 09/22/25 08:00 09/22/25 09:00 Narrative: 09/22/2025 PE at [facility] Constitutional Constitutional: no acute distress *Routine Respiratory Exam Respiratory: Present CTA bilaterally (Anteriorly and posteriorly) *Routine Cardiovascular Exam Cardiovascular: Present RRR *Routine Abdominal Exam Abdominal: Present soft and normoactive bowel sounds; Absent tenderness *Routine Extremities Exam Extremities: Absent edema or calf tenderness *Routine Neurological Exam Neurological: Present alert and oriented X3 DS: Diagnosis Discharge Diagnosis (1) Diarrhea: Status: Acute Code(s): R19.7 - Diarrhea, unspecified Qualifiers: Diarrhea type: unspecified type Qualified Code(s): R19.7 - Diarrhea, unspecified (2) Acute hyponatremia: Status: Acute Code(s): E87.1 - Hypo-osmolality and hyponatremia (3) Acute kidney injury: Status: Acute Code(s): N17.9 - Acute kidney failure, unspecified (4) Chronic hyponatremia: Status: Acute Code(s): E87.1 - Hypo-osmolality and hyponatremia (5) HFrEF (heart failure with reduced ejection fraction): Status: Acute Code(s): I50.20 - Unspecified systolic (congestive) heart failure (6) Mitral regurgitation: Status: Acute Code(s): I34.0 - Nonrheumatic mitral (valve) insufficiency (7) Impaired mobility: Status: Acute Code(s): Z74.09 - Other reduced mobility (8) Weakness: Status: Acute Code(s): R53.1 - Weakness Meds Home Medications and Allergies Home Medications ?Medication ?Instructions ?Recorded ?Confirmed ?Type acetaminophen 500 mg tablet 500 mg PO Q6HP PRN Mild Pain 07/15/24 09/21/25 History (Scale Score 1-4) aspirin 81 mg tablet,delayed 81 mg PO DAILY #30 tabs 07/28/25 09/21/25 Rx release carvedilol 12.5 mg tablet 12.5 mg PO DAILY #30 tabs 08/28/25 09/21/25 Rx cyclobenzaprine 5 mg tablet 5 mg PO HSP PRN muscle spasms #30 08/28/25 09/21/25 Rx tabs hydroxychloroquine 200 mg tablet 200 mg PO DAILY #30 tabs 08/28/25 09/21/25 Rx potassium chloride 10 mEq 10 meq PO DAILY #30 tabs 08/28/25 09/21/25 Rx tablet,extended release(part/cryst) (Klor-Con M) pravastatin 40 mg tablet 40 mg PO HS #30 tabs 08/28/25 09/21/25 Rx spironolactone 25 mg tablet 25 mg PO DAILY #30 tabs 08/28/25 09/21/25 Rx tamsulosin 0.4 mg capsule 0.4 mg PO HS #30 caps 08/28/25 09/21/25 Rx sacubitril 24 mg-valsartan 26 mg 1 tab PO BID 09/02/25 09/21/25 History tablet (Entresto) levothyroxine 112 mcg tablet 112 mcg PO DAILY 09/21/25 09/21/25 History melatonin 3 mg tablet 3 mg PO HSP PRN Insomnia 09/21/25 09/21/25 History ondansetron HCl 4 mg tablet 4 mg PO Q6HP PRN nausea and 09/21/25 09/21/25 History vomiting New Prescriptions to Start Prescriptions: Allergies Allergy/AdvReac Type Severity Reaction Status Date / Time Sulfa (Sulfonamide Allergy Unknown Hives Verified 09/21/25 09:02 Antibiotics) (SULFA (SULFONAMIDE ANTIBIOTICS)) codeine Allergy Vomiting Verified 09/21/25 09:02 Penicillins Allergy Hives Verified 09/21/25 09:02 hydrocodone AdvReac Other Verified 09/21/25 09:02 Discharge Plan Disposition Patient Disposition: Home, Self-Care Condition: Good Follow up Plan Follow up with: Wyatt Torres MD [Primary Care Provider, Medical] - 10/06/25 11:00 am Prescriptions/Medication Reconciliation: Continued sacubitril-valsartan [Entresto] 24-26 mg tablet 1 tab PO BID carvedilol 12.5 mg tablet 12.5 mg PO DAILY Qty: 30 2RF Rx Instructions: must administer with a meal/food cyclobenzaprine 5 mg tablet 5 mg PO HSP PRN (Reason: muscle spasms) Qty: 30 2RF hydroxychloroquine 200 mg tablet 200 mg PO DAILY Qty: 30 2RF potassium chloride [Klor-Con M10] 10 mEq tablet,ER particles/crystals 10 meq PO DAILY Qty: 30 0RF spironolactone 25 mg tablet 25 mg PO DAILY Qty: 30 2RF pravastatin 40 mg tablet 40 mg PO HS Qty: 30 2RF tamsulosin 0.4 mg capsule 0.4 mg PO HS Qty: 30 2RF acetaminophen 500 mg Tablet 500 mg PO Q6HP PRN (Reason: Mild Pain (Scale Score 1-4)) aspirin 81 mg Tablet,Delayed Release (Dr/Ec) 81 mg PO DAILY Qty: 30 0RF ondansetron HCl 4 mg tablet 4 mg PO Q6HP PRN (Reason: nausea and vomiting) melatonin 3 mg tablet 3 mg PO HSP PRN (Reason: Insomnia) levothyroxine 112 mcg tablet 112 mcg PO DAILY Problem Reconciliation Problems Reviewed?: Yes Patient Discharge Instructions ACTIVITY: Continue current activity DIET: continue same diet Patient Instructions: Diarrhea, Acute Kidney Injury, Hyponatremia in Adults Print Language: Estonian Providers Primary Care Provider: Wyatt Torres Admit Provider: Channing Garcia Attending Provider: Channing Garcia
--- OUTSIDE RECORDS SUMMARY | 2025-11-04 19:00 | XMS_ITS | Clinical Summary ---
Author Organization Unknown Care Team Providers Care Yoke Setter Name Role Phone BETH LEMOS, EMA Unavailable Unavailable KENDALL RN, NICOLE Unavailable Unavailable ANGIE TURNER AND FORMER AUTOMATIC, JOSE M Unavailable Unavailable SHAUNNA PT, BHAVANA Unavailable Unavailable [employer], RIANA Unavailable Unavaillauren CARRION OT, ANN Unavailable Unavailable RENAE AMALIA/ISBELL, MARIEA Unavailable Unavail able Payers Payer Name Policy Type Policy Number Effective Date Expira tion Date MEDICARE.[facility] [id number] Problems Condition Name Condition Details Condition Category Status Onset Date Resolution Date Last Treatment Date Treating Clinician Comments CODING TO BE COMPLETED AFTER CLINICAL DOCUMENTATIO N REVIEW Active 2024-10 00:00: 00 RHEUMATOID ARTHRITIS, UNSPECIFIED Active 2024-10 00:00: 00 HYPERTENSIVE HEART DISEASE WITH HEART FAILURE Active 2024-10 00:00: 00 HEART FAILURE, UNSPECIFIED Active 2024-10 00:00: 00 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 Active 2024-10 00:00: 00 NONRHEUMATIC MITRAL (VALVE) INSUFFICIENC Y Active 2024-10 00:00: 00 ANEMIA, UNSPECIFIED Active 2024-10 00:00: 00 HYPO-OSMOLAL ITY AND HYPONATREMIA Active 2024-10 00:00: 00 POLYMYALGIA RHEUMATICA Active 2024-10 00:00: 00 OTHER HAMMER TOE(S) (ACQUIRED), UNSPECIFIED FOOT Active 2024-10 00:00: 00 ATELECTASIS Active 2024-10 00:00: 00 CORNS AND CALLOSITIES Active 2024-10 00:00: 00 RETENTION OF URINE, UNSPECIFIED Active 2024-10 00:00: 00 HYPOTHYROIDI SM, UNSPECIFIED Active 2024-10 00:00: 00 HYPERLIPIDEM IA, UNSPECIFIED Active 2024-10 00:00: 00 OLD MYOCARDIAL INFARCTION Active 2024-10 00:00: 00 HISTORY OF FALLING Active 2024-10 00:00: 00 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 Active 2024-10 00:00: 00 PERSONAL HISTORY OF (HEALED) TRAUMATIC FRACTURE Active 2024-10 00:00: 00 PERSONAL HISTORY OF COVID-19 Active 2024-10 00:00: 00 PERSONAL HISTORY OF NICOTINE DEPENDENCE Active 2024-10 00:00: 00 Allergies, Adverse Reactions, Alerts Allergy Name Allergy Type Status Severity Reaction(s) Onset Date Inactive Date Treating Clinician Comments JO ANN Navarro,, Propensity to adverse reactions Active 2025-08 09:31:4 4 SULFA (SULFONAM IDES) Propensity to adverse reactions Active 2025-08 09:32:1 7 CODEINE Propensity to adverse reactions Active 2025-08 09:32:2 6 Vital Signs Vital Name Observation Time Observation Value Commen ts Temperature 2025-09-15 13:29:00.000 97.9 [degF] Temperature 2025-09-09 10:57:00.000 97.3 [degF] Temperature 2025-09-07 10:17:00.000 97.2 [degF] Height 2025-09-07 09:10:43.000 65 [in_us] Pulse 2025-09-15 13:29:00.000 77 /min Pulse 2025-09-09 10:57:00.000 68 /min Pulse 2025-09-07 10:17:00.000 63 /min O2 Saturation (%) 2025-09-15 13:29:00.000 96 % O2 Saturation (%) 2025-09-09 10:57:00.000 96 % O2 Saturation (%) 2025-09-07 10:17:00.000 96 % Respirations 2025-09-15 13:29:00.000 16 /min Respirations 2025-09-09 10:57:00.000 18 /min Respirations 2025-09-07 10:17:00.000 16 /min Weight (lbs) 2025-09-15 13:29:00.000 129.8 [lb_av] Weight (lbs) 2025-09-07 09:10:51.000 Systolic Blood Pressure 2025-09-15 13:29:00.000 118 mm [Hg] Systolic Blood Pressure 2025-09-09 10:57:00.000 101 mm [Hg] Systolic Blood Pressure 2025-09-07 10:17:00.000 100 mm [Hg] Diastolic Blood Pressure 2025-09-15 13:29:00.000 68 mm [Hg] Diastolic Blood Pressure 2025-09-09 10:57:00.000 60 mm [Hg] Diastolic Blood Pressure 2025-09-07 10:17:00.000 70 mm [Hg] Plan of Treatment Planned Activity Planned Date Details Comments Future Scheduled Test RN TO OBSE RVE, ASSESS, EVALUATE, AND DEVELOP AN INDIVIDUALIZED PLAN OF CARE. AGENCY MAY ACCEPT ORDERS FROM CONSULTING PHYSICIANS , , , DR.MARIA BROWN, DR.RUDY SEPULVEDA. RN TO OBSERVE AND ASSESS, TURNER AND FORMER AUTOMATIC/FOILING MACHINE ADJUSTER TO OBSERVE FOR RISK FOR FALLS AND INSTRUCT IN FALL PREVENTION, HOME SAFETY, MEDICATION MANAGEMENT, INFECTION PREVENTION, AND NUTRITION MANAGEMENT. RN/TURNER AND FORMER AUTOMATIC/FOILING MACHINE ADJUSTER NURSE MAY PERFORM O2 SATURATION LEVEL ON ADMISSION AND PRN FOR RN TO ASSESS/TURNER AND FORMER AUTOMATIC TO OBSERVE PATIENT, WITH NOTIFICATION TO THE PHYSICIAN IF SATURATION IS 90% IN THE ABSENCE OF MORE SPECIFIC PARAMETERS FROM THE PHYSICIAN. AGENCY MAY PERFORM A RESUMPTION OF CARE VISIT FOLLOWING ANY HOSPITAL ADMISSION. RN/TURNER AND FORMER AUTOMATIC/FOILING MACHINE ADJUSTER TO MONITOR CO-MORBID CONDITIONS LISTED ON THE PLAN OF CARE AND ANY NEW CONDITIONS THAT PRESENT THEMSELVES DURING THIS EPISODE TO IDENTIFY CHANGES AND INTERVENE TO MINIMIZE COMPLICATIONS. [code = RN TO OBSERVE, ASSESS, EVALUATE, AND DEVELOP AN INDIVIDUALIZED PLAN OF CARE. AGENCY MAY ACCEPT ORDERS FROM CONSULTING PHYSICIANS , , , DR.MARIA BROWN, DR.RUDY SEPULVEDA. RN TO OBSERVE AND ASSESS, TURNER AND FORMER AUTOMATIC/FOILING MACHINE ADJUSTER TO OBSERVE FOR RISK FOR FALLS AND INSTRUCT IN FALL PREVENTION, HOME SAFETY, MEDICATION MANAGEMENT, INFECTION PREVENTION, AND NUTRITION MANAGEMENT. RN/TURNER AND FORMER AUTOMATIC/FOILING MACHINE ADJUSTER NURSE MAY PERFORM O2 SATURATION LEVEL ON ADMISSION AND PRN FOR RN TO ASSESS/TURNER AND FORMER AUTOMATIC TO OBSERVE PATIENT, WITH NOTIFICATION TO THE PHYSICIAN IF SATURATION IS 90% IN THE ABSENCE OF MORE SPECIFIC PARAMETERS FROM THE PHYSICIAN. AGENCY MAY PERFORM A RESUMPTION OF CARE VISIT FOLLOWING ANY HOSPITAL ADMISSION. RN/TURNER AND FORMER AUTOMATIC/FOILING MACHINE ADJUSTER TO MONITOR CO-MORBID CONDITIONS LISTED ON THE PLAN OF CARE AND ANY NEW CONDITIONS THAT PRESENT THEMSELVES DURING THIS EPISODE TO IDENTIFY CHANGES AND INTERVENE TO MINIMIZE COMPLICATIONS.] Future Scheduled Test MEDICATION MANAGEMENT; RN/TURNER AND FORMER AUTOMATIC/FOILING MACHINE ADJUSTER TO REVIEW MEDICATIONS FOR INTERACTIONS, EFFECTIVENESS OF DRUG THERAPY, AND SIGNS/SYMPTOMS OF ADVERSE REACTIONS. MAY INSTRUCT AND REINFORCE MEDICATION TEACHING RELATED TO THE USE OF MEDICATIONS, DOSAGE, FREQUENCY, PURPOSE, SIDE EFFECTS, AND TO REPORT COMPLICATIONS. [code = MEDICATION MANAGEMENT; RN/TURNER AND FORMER AUTOMATIC/FOILING MACHINE ADJUSTER TO REVIEW MEDICATIONS FOR INTERACTIONS, EFFECTIVENESS OF DRUG THERAPY, AND SIGNS/SYMPTOMS OF ADVERSE REACTIONS. MAY INSTRUCT AND REINFORCE MEDICATION TEACHING RELATED TO THE USE OF MEDICATIONS, DOSAGE, FREQUENCY, PURPOSE, SIDE EFFECTS, AND TO REPORT COMPLICATIONS.] Future Scheduled Test CARDIOVASC ULAR SYSTEM; RN TO ASSESS/TEACH, TURNER AND FORMER AUTOMATIC/FOILING MACHINE ADJUSTER TO OBSERVE/TEACH RELATED TO ALTERED CARDIOVASCULAR STATUS TO MINIMIZE COMPLICATIONS AND REDUCE HOSPITALIZATION. [code = CARDIOVASCULAR SYSTEM; RN TO ASSESS/TEACH, TURNER AND FORMER AUTOMATIC/FOILING MACHINE ADJUSTER TO OBSERVE/TEACH RELATED TO ALTERED CARDIOVASCULAR STATUS TO MINIMIZE COMPLICATIONS AND REDUCE HOSPITALIZATION.] Future Scheduled Test HEART FAIL URE; RN TO ASSESS/TEACH, TURNER AND FORMER AUTOMATIC/FOILING MACHINE ADJUSTER TO OBSERVE/TEACH CARDIOPULMONARY SYSTEM TO IDENTIFY SIGNS OF DECOMPENSATION AND INTERVENE TO MINIMIZE THE SEVERITY OF FLUID OVERLOAD. OBSERVE PATIENT ABILITY TO MONITOR AND RECORD DAILY WEIGHTS AND VITAL SIGNS, INCLUDING PULSE AND BLOOD PRESSURE; RECORD PATIENT REPORTED WEIGHT, OR WEIGH PATIENT NEEDED. REPORT INCREASED EDEMA OR WEIGHT GAIN OF >2 LBS IN 1 DAY OR >5 LBS IN 1 WEEK OR 5LBS OR MORE OVER TARGET WEIGHT. MAY MEASURE ABDOMINAL GIRTH IF UNABLE TO WEIGH. SCALES AND BP MONITOR TO BE PROVIDED IF NEEDED. [code = HEART FAILURE; RN TO ASSESS/TEACH, TURNER AND FORMER AUTOMATIC/FOILING MACHINE ADJUSTER TO OBSERVE/TEACH CARDIOPULMONARY SYSTEM TO IDENTIFY SIGNS OF DECOMPENSATION AND INTERVENE TO MINIMIZE THE SEVERITY OF FLUID OVERLOAD. OBSERVE PATIENT ABILITY TO MONITOR AND RECORD DAILY WEIGHTS AND VITAL SIGNS, INCLUDING PULSE AND BLOOD PRESSURE; RECORD PATIENT REPORTED WEIGHT, OR WEIGH PATIENT NEEDED. REPORT INCREASED EDEMA OR WEIGHT GAIN OF >2 LBS IN 1 DAY OR >5 LBS IN 1 WEEK OR 5LBS OR MORE OVER TARGET WEIGHT. MAY MEASURE ABDOMINAL GIRTH IF UNABLE TO WEIGH. SCALES AND BP MONITOR TO BE PROVIDED IF NEEDED.] Future Scheduled Test ACUTE MYOC ARDIAL INFARCT; RN TO ASSESS/TEACH, TURNER AND FORMER AUTOMATIC/FOILING MACHINE ADJUSTER TO OBSERVE/TEACH WARNING SIGNS AND SYMPTOMS TO AVOID HOSPITALIZATION. [code = ACUTE MYOCARDIAL INFARCT; RN TO ASSESS/TEACH, TURNER AND FORMER AUTOMATIC/FOILING MACHINE ADJUSTER TO OBSERVE/TEACH WARNING SIGNS AND SYMPTOMS TO AVOID HOSPITALIZATION.] Future Scheduled Test PHYSICAL T HERAPIST TO EVALUATE FOR STRENGTH, GAIT, ENDURANCE,BALANCE [code = PHYSICAL THERAPIST TO EVALUATE FOR STRENGTH, GAIT, ENDURANCE,BALANCE] Future Scheduled Test OCCUPATION AL THERAPIST TO EVALUATE FOR ADLS AND IADLS [code = OCCUPATIONAL THERAPIST TO EVALUATE FOR ADLS AND IADLS] Future Scheduled Test PRN VISITS ; NUMBER OF RN/TURNER AND FORMER AUTOMATIC/FOILING MACHINE ADJUSTER VISITS: 2 RN/TURNER AND FORMER AUTOMATIC/FOILING MACHINE ADJUSTER TO PERFORM: EVALUATE FOR FLUID OVERLOAD FOR THE FOLLOWING REASONS: RECENT DIAGNOSIS OF CHF [code = PRN VISITS; NUMBER OF RN/TURNER AND FORMER AUTOMATIC/FOILING MACHINE ADJUSTER VISITS: 2 RN/TURNER AND FORMER AUTOMATIC/FOILING MACHINE ADJUSTER TO PERFORM: EVALUATE FOR FLUID OVERLOAD FOR THE FOLLOWING REASONS: RECENT DIAGNOSIS OF CHF] Future Scheduled Test PAIN MANAG EMENT; RN TO ASSESS AND TEACH, FOILING MACHINE ADJUSTER/TURNER AND FORMER AUTOMATIC TO OBSERVE AND TEACH AND PROVIDE EDUCATION ON PAIN MANAGEMENT TECHNIQUES. [code = PAIN MANAGEMENT; RN TO ASSESS AND TEACH, FOILING MACHINE ADJUSTER/TURNER AND FORMER AUTOMATIC TO OBSERVE AND TEACH AND PROVIDE EDUCATION ON PAIN MANAGEMENT TECHNIQUES.] Future Scheduled Test AGENCY MAY PERFORM A RESUMPTION OF CARE VISIT FOLLOWING ANY HOSPITAL ADMISSION. OT TO EVALUATE, OBSERVE / ASSESS, AND MONITOR, LOCAL SALES ASSOCIATE TO OBSERVE AND MONITOR, PROVIDE SKILLED THERAPEUTIC INTERVENTION, ACTIVITY, EDUCATION, AND TRAINING TO ADDRESS ADLS/IADLS, ADAPTIVE EQUIPMENT, STRENGTHENING, BALANCE, AND FUNCTIONAL TRANSFERS TO MAXIMIZE SAFETY AND FUNCTIONAL INDEPENDENCE IN HOME PERSONAL HYGIENE/GROOMING (OT/LOCAL SALES ASSOCIATE) BATHING/SHOWERING (OT/AMALIA) DRESSING (OT/LOCAL SALES ASSOCIATE) ACTIVITIES OF DAILY LIVING (OT/AMALIA) TOILET TRANSFER (OT/AMALIA) BATH/SHOWER TRANSFER (OT/LOCAL SALES ASSOCIATE) THERAPEUTIC EXERCISE (OT/LOCAL SALES ASSOCIATE) OT/AMALIA MAY EDUCATE ON PAIN MANAGEMENT CLINICALLY INDICATED, INCLUDING NON-PHARMACOLOGICAL PAIN REDUCTION TECHNIQUES AND USE OF CRYOTHERAPY OR HEAT UP TO 20 MIN AT A TIME FOR PAIN MANAGEMENT TO MAXIMIZE [code = AGENCY MAY PERFORM A RESUMPTION OF CARE VISIT FOLLOWING ANY HOSPITAL ADMISSION. OT TO EVALUATE, OBSERVE / ASSESS, AND MONITOR, LOCAL SALES ASSOCIATE TO OBSERVE AND MONITOR, PROVIDE SKILLED THERAPEUTIC INTERVENTION, ACTIVITY, EDUCATION, AND TRAINING TO ADDRESS ADLS/IADLS, ADAPTIVE EQUIPMENT, STRENGTHENING, BALANCE, AND FUNCTIONAL TRANSFERS TO MAXIMIZE SAFETY AND FUNCTIONAL INDEPENDENCE IN HOME PERSONAL HYGIENE/GROOMING (OT/AMALIA) BATHING/SHOWERING (OT/LOCAL SALES ASSOCIATE) DRESSING (OT/AMALIA) ACTIVITIES OF DAILY LIVING (OT/LOCAL SALES ASSOCIATE) TOILET TRANSFER (OT/LOCAL SALES ASSOCIATE) BATH/SHOWER TRANSFER (OT/LOCAL SALES ASSOCIATE) THERAPEUTIC EXERCISE (OT/LOCAL SALES ASSOCIATE) OT/LOCAL SALES ASSOCIATE MAY EDUCATE ON PAIN MANAGEMENT CLINICALLY INDICATED, INCLUDING NON-PHARMACOLOGICAL PAIN REDUCTION TECHNIQUES AND USE OF CRYOTHERAPY OR HEAT UP TO 20 MIN AT A TIME FOR PAIN MANAGEMENT TO MAXIMIZE] Goal Patient Goal - MORE INDEPEND ENT Goal Provider Goal - A PLAN OF CARE WILL BE ESTABLISHED THAT MEETS THE PATIENT S NEEDS. PATIENT WILL DEMONSTRATE OXYGEN SATURATION WITHIN NORMAL LIMITS OR PATIENT S OPTIMAL LEVEL ESTABLISHED BY THE PHYSICIAN THROUGHOUT CARE. CHANGES TO CO-MORBID CONDITIONS AND ANY NEW CONDITIONS WILL BE IDENTIFIED AND REPORTED TO THE PHYSICIAN. Goal Provider Goal - PATIENT/CAREGIVER TO VERBALIZE, AND CONSISTENTLY DEMONSTRATE EFFECTIVE, SAFE MANAGEMENT OF MEDICATION INCLUDING KNOWLEDGE OF EFFECTIVENESS, POTENTIAL SIDE EFFECTS AND DRUG REACTIONS AND WHEN TO CONTACT THE APPROPRIATE CARE PROVIDER. PATIENT/CAREGIVER WILL BE ABLE TO VERBALIZE UNDERSTANDING OF MEDICATION REGIMEN AND ACCURATELY TAKE MEDICATIONS PRESCRIBED WITHOUT ADVERSE EFFECTS BY Goal Provider Goal - PATIENT / CAREGIVER WILL VERBALIZE/DEMONSTRATE UNDERSTANDING OF MEASURES TO MANAGE ALTERED CARDIOVASCULAR STATUS BY 11/05/25. Goal Provider Goal - PATIENT / CAREGIVER WILL VERBALIZE/DEMONSTRATE AN ABILITY TO ADHERE TO SELF-MANAGEMENT OF HF TO MINIMIZE COMPLICATIONS AND AVOID HOSPITALIZATION BY 11/05/25 Goal Provider Goal - PATIENT / CAREGIVER WILL VERBALIZE/DEMONSTRATE CARE AND SELF-MANAGEMENT OF AMI TO MINIMIZE COMPLICATIONS AND AVOID HOSPITALIZATION BY 11/05/25 Goal Provider Goal - Goal Provider Goal - Goal Provider Goal - Goal Provider Goal - PATIENT / CAREGIVER WILL VERBALIZE / DEMONSTRATE UNDERSTANDING OF PAIN CONTROL MEASURES BY 11/05/25 Goal Provider Goal - OT STG: PATIENT WILL DEMONSTRATE IMPROVED ABILITY TO PERFORM GROOMING FROM MIN A TO SBA WITHIN 4 WEEKS OT LTG: PATIENT WILL DEMONSTRATE IMPROVED ABILITY TO PERFORM GROOMING FROM MIN A TO INDEPENDENT WITHIN 9 WEEKS OT STG: PATIENT WILL DEMONSTRATE IMPROVED ABILITY TO PERFORM BATHING/SHOWERING AND REDUCE CAREGIVER BURDEN FROM MOD A TO CGA WITHIN 4 WEEKS OT LTG: PATIENT WILL DEMONSTRATE IMPROVED ABILITY TO PERFORM BATHING/SHOWERING AND REDUCE CAREGIVER BURDEN FROM MOD A TO INDEPENDENT WITHIN 9 WEEKS OT STG: PATIENT WILL DEMONSTRATE IMPROVED ABILITY TO PERFORM UPPER BODY DRESSING TO REDUCE CAREGIVER BURDEN FROM MOD A TO CGA WITHIN 4 WEEKS OT LTG: PATIENT WILL DEMONSTRATE IMPROVED ABILITY TO PERFORM UPPER BODY DRESSING TO REDUCE CAREGIVER BURDEN FROM MOD A TO INDEPENDENT WITHIN 9 WEEKS OT STG: PATIENT WILL DEMONSTRATE IMPROVED ABILITY TO PERFORM LOWER BODY DRESSING TO REDUCE CAREGIVER BURDEN FROM MOD A TO CGA WITHIN 4 WEEKS OT LTG: PATIENT WILL DEMONSTRATE IMPROVED ABILITY TO PERFORM LOWER BODY DRESSING TO REDUCE CAREGIVER BURDEN FROM MOD A TO INDEPENDENT WITHIN 9 WEEKS OT LTG: PATIENT WILL DEMONSTRATE IMPROVEMENT IN MODIFIED ARABELLA INDEX SCORE FROM 79 TO 90 INDICATING DECREASED DEPENDENCY ON CAREGIVER ASSISTANCE WITH ACTIVITIES OF DAILY LIVING WITHIN 9 WEEKS OT STG: PATIENT WILL DEMONSTRATE IMPROVED ABILITY TO PERFORM TOILET TRANSFERS TO REDUCE FALL RISK AND RISK OF INCONTINENCE AND UTI DEVELOPMENT FROM CGA TO SETUP WITHIN 4 WEEKS OT LTG: PATIENT WILL DEMONSTRATE IMPROVED ABILITY TO PERFORM TOILET TRANSFERS TO REDUCE FALL RISK AND RISK OF INCONTINENCE AND UTI DEVELOPMENT FROM CGA TO INDEPENDENT WITHIN 9 WEEKS OT STG: PATIENT WILL DEMONSTRATE IMPROVED ABILITY AND SAFETY TO PERFORM BATH/SHOWER TRANSFER FROM MOD A TO CGA WITHIN 4 WEEKS OT LTG: PATIENT WILL DEMONSTRATE IMPROVED ABILITY AND SAFETY TO PERFORM BATH/SHOWER TRANSFER FROM MOD A TO INDEPENDENT WITHIN 9 WEEKS OT LTG: PATIENT WILL DEMONSTRATE IMPROVED BUE MUSCLE STRENGTH EVIDENCED BY AN IMPROVEMENT IN MMT/FUNCTIONAL STRENGTH FROM 3/5 TO 3+/5 WITHIN 9 WEEKS IN ORDER TO MAXIMIZE ADL PERFORMANCE OT LTG: PATIENT WILL DEMONSTRATE IMPROVED ROM IN RUE SHOULDER FROM 90 DEGREES TO 150 DEGREES WITHIN 9 WEEKS IN ORDER TO MAXIMIZE ADL PERFORMANCE OT LTG: PATIENT WILL DEMONSTRATE IMPROVED ROM IN RUE SHOULDER FROM 90 DEGREES TO 150 DEGREES WITHIN 9 WEEKS IN ORDER TO MAXIMIZE ADL PERFORMANCE OT LTG: PATIENT WILL DEMONSTRATE IMPROVED ROM IN LUE SHOULDER FROM 80 DEGREES TO 120 DEGREES WITHIN 9 WEEKS IN ORDER TO MAXIMIZE ADL PERFORMANCE OT LTG: PATIENT WILL DEMONSTRATE UNDERSTANDING OF PAIN MANAGEMENT TECHNIQUES EVIDENCED BY REDUCED PAIN IN BUE FROM 810 TO 0/10 WITHIN WEEKS Encounters Start Date/Time End Date/Time Encounter Type Admission Type Attending [facility] Facility Care Department Encounter ID Discharge Date Discharge Status Discharge Condition Discharge Reason Percent Goals Met 2025-09-07 00:00:00 2025-11-05 00:00:00 Outpatient NICOLE ARREOLA [facility] [id number] 36.36
== END 2025-09-22 10:40 | disposition home or self-care (01) ==
LOC: ER 11:08 → 2ND 11:53
PROVIDERS: Admitting Provider Family Medicine; Emergency Provider Student in an Organized Health Care Education/Training Program; PCP Family Medicine; Visit Provider Family Medicine
DX: R19.7 Diarrhea, unspecified (principal); E87.1 Hypo-osmolality and hyponatremia; I50.20 Unspecified systolic (congestive) heart failure; I34.0 Nonrheumatic mitral (valve) insufficiency; Z74.09 Other reduced mobility; N17.9 Acute kidney failure, unspecified; I25.10 Atherosclerotic heart disease of native coronary artery without angina pectoris; E78.5 Hyperlipidemia, unspecified; I11.0 Hypertensive heart disease with heart failure; E03.9 Hypothyroidism, unspecified; M06.9 Rheumatoid arthritis, unspecified; Z95.5 Presence of coronary angioplasty implant and graft; Z82.49 Family history of ischemic heart disease and other diseases of the circulatory system; Z87.891 Personal history of nicotine dependence; Z88.2 Allergy status to sulfonamides; Z88.5 Allergy status to narcotic agent; Z88.0 Allergy status to penicillin; Z79.899 Other long term (current) drug therapy; Z79.890 Hormone replacement therapy; Z79.82 Long term (current) use of aspirin; I44.0 Atrioventricular block, first degree
CPT/HCPCS: 36415; 71045; 80048; 80053; 81001; 83605; 83735; 83880; 84484; 85025; 87086; 87088; 87186; 87506; 93005; 99285; G0378; J7030; J7120

== ENCOUNTER 2025-09-30 10:56 | Emergency (ER) | payer MEDICARE, OTHER, SELFPAY ==
[2025-09-30] VITALS (8 sets, daily range): BP systolic 96–137; BP diastolic 58–77; PULSE 68–77; RESP 12–21; TEMP 36.2–36.7; O2SAT 95–99; BMI 20.8
--- NOTE | 2025-09-30 11:52 | HMH.EDGENADL ---
Discharge Plan Disposition Patient Disposition: Home, Self-Care Prescriptions Prescriptions: No Action sacubitril-valsartan [Entresto] 24-26 mg tablet 1 tab PO BID carvedilol 12.5 mg tablet 12.5 mg PO DAILY Qty: 30 2RF Rx Instructions: must administer with a meal/food cyclobenzaprine 5 mg tablet 5 mg PO HSP PRN (Reason: muscle spasms) Qty: 30 2RF hydroxychloroquine 200 mg tablet 200 mg PO DAILY Qty: 30 2RF potassium chloride [Klor-Con M10] 10 mEq tablet,ER particles/crystals 10 meq PO DAILY Qty: 30 0RF spironolactone 25 mg tablet 25 mg PO DAILY Qty: 30 2RF pravastatin 40 mg tablet 40 mg PO HS Qty: 30 2RF tamsulosin 0.4 mg capsule 0.4 mg PO HS Qty: 30 2RF acetaminophen 500 mg Tablet 500 mg PO Q6HP PRN (Reason: Mild Pain (Scale Score 1-4)) aspirin 81 mg Tablet,Delayed Release (Dr/Ec) 81 mg PO DAILY Qty: 30 0RF ondansetron HCl 4 mg tablet 4 mg PO Q6HP PRN (Reason: nausea and vomiting) melatonin 3 mg tablet 3 mg PO HSP PRN (Reason: Insomnia) levothyroxine 112 mcg tablet 112 mcg PO DAILY Referrals Follow up/Referrals: Wyatt Torres MD [Primary Care Provider, Medical] - See instructions Tonio Akhtar II, MD [Staff Physician, Gastroenterology] - See instructions Activity Restrictions/Add. Instructions Additional Instructions/Restrictions: As discussed your numbers are chronically out of whack with respect to salt and some electrolytes in your blood. I am writing down Dr. Akhtar phone number for you to call and get in with him to see if he can to evaluate your chronic loose stools. Please follow-up with your family doctor as soon as you are able to make sure things continue to stabilize. If new or worsening symptoms do not hesitate to return to the emergency department. Clinical Impressions Clinical Impression: Diarrhea, Hyponatremia, Hypomagnesemia Print Language Print Language: Tajik Discharge ED Provider: Casper Boyce General Adult HPI General Chief complaint: Weakness Stated complaint: waekess, diarrhea, dehydration Time Seen by Provider: 09/30/25 11:06 History of Present Illness HPI narrative: Patient is a 79-year-old female with past medical history of congestive heart failure on diuretics, chronic loose bowel movements who presents emergency department for evaluation of diarrhea. Onset was acute on chronic over the last 72 hours patient has had multiple nonbloody bowel movements. No abdominal pain, no chest pain. Due to persistent symptoms she presents here for continued evaluation. She has chronic loose stools at baseline was evaluated last week reportedly for the same complaint and has yet to establish with a GI for evaluation. No trauma. Patient normally is able to ambulate with a walker however has been unable to ambulate without assistance over the last 48 hours. No other acute complaints at this time. Per chart review patient was admitted last week for acute hyponatremia and diarrhea and patient was ultimately deemed appropriate for discharge home. She had interval resolution of symptoms and had resurgence of symptoms over the last 72 hours. Please note that above description of symptoms, in this electronic medical record under categorization of recalled from ER triage doctor by RN are reflective of an initial nursing assessment, however, is not reflective of my full history and physical exam that was personally taken and clarified. Consequentially, this preceding description of symptoms, which may include the patient's categorized chief complaint in the EMR, do not reflect my personal clinical impression, and the ultimate description of history of present illness and patient stated complaints should be deferred to this section of the note. Unless stated otherwise or congruent with this section of the note, additional signs, symptoms, or incongruence should be interpreted as inaccurate with my clinical impression. Related Data Home Medications ?Medication ?Instructions ?Recorded ?Confirmed acetaminophen 500 mg tablet 500 mg PO Q6HP PRN Mild Pain 07/15/24 09/30/25 (Scale Score 1-4) sacubitril 24 mg-valsartan 26 mg 1 tab PO BID 09/02/25 09/30/25 tablet (Entresto) levothyroxine 112 mcg tablet 112 mcg PO DAILY 09/21/25 09/30/25 melatonin 3 mg tablet 3 mg PO HSP PRN Insomnia 09/21/25 09/30/25 ondansetron HCl 4 mg tablet 4 mg PO Q6HP PRN nausea and 09/21/25 09/30/25 vomiting Previous Rx's ?Medication ?Instructions ?Recorded aspirin 81 mg tablet,delayed 81 mg PO DAILY #30 tabs 07/28/25 release carvedilol 12.5 mg tablet 12.5 mg PO DAILY #30 tabs 08/28/25 cyclobenzaprine 5 mg tablet 5 mg PO HSP PRN muscle spasms #30 08/28/25 tabs hydroxychloroquine 200 mg tablet 200 mg PO DAILY #30 tabs 08/28/25 potassium chloride 10 mEq 10 meq PO DAILY #30 tabs 08/28/25 tablet,extended release(part/cryst) (Klor-Con M) pravastatin 40 mg tablet 40 mg PO HS #30 tabs 08/28/25 spironolactone 25 mg tablet 25 mg PO DAILY #30 tabs 08/28/25 tamsulosin 0.4 mg capsule 0.4 mg PO HS #30 caps 08/28/25 Allergies Allergy/AdvReac Type Severity Reaction Status Date / Time Sulfa (Sulfonamide Allergy Unknown Hives Verified 09/30/25 10:33 Antibiotics) (SULFA (SULFONAMIDE ANTIBIOTICS)) codeine Allergy Vomiting Verified 09/30/25 10:33 Penicillins Allergy Hives Verified 09/30/25 10:33 hydrocodone AdvReac Other Verified 09/30/25 10:33 [facility] Disclaimer: The information contained in this section may have been updated after the patient was seen, as this information can be updated by other users. 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 Hyponatremia Abnormal weight loss Anorexia Hypoglycemia Postobstructive diuresis Acute urinary retention Adult failure to thrive Nausea Multiple fractures of pelvis with disruption of pelvic ring Hypochloremia Falls Trochanteric bursitis, right hip Skin tear of left upper extremity Contusion of elbow, left Contusion of hip, left Trochanteric bursitis, left hip Closed fracture of greater trochanter of femur With acute decompensation Pain around toenail, right foot Ingrown toenail of right foot Closed nondisplaced fracture of fifth right metatarsal bone MARY (acute kidney injury) Enteritis Hypothyroidism Foot fracture, right Polymyalgia rheumatica syndrome History of back pain History of left heart catheterization Hyperlipidemia Hypertension Cataract COVID-19 Closed fracture of fourth metatarsal of right foot Nondisplaced fracture of fifth right metatarsal bone with routine healing Myocardial infarction 2012 HLD (hyperlipidemia) CAD (coronary artery disease) Rheumatoid arthritis Surgical History H/O cataract removal with insertion of prosthetic lens History of heart artery stent Previous back surgery 2001 H/O thyroidectomy 1999 History of appendectomy 1992 History of hysterectomy 1992 History of tonsillectomy Family History Other Alcoholism Cancer Coronary artery disease Heart attack Hypertension Kidney disease Social History Smoking Status: Never smoker years smoked: 40 how long ago did patient quit smokin years alcohol intake: never substance use type: denies use current occupational status: retired Travel in the last 8 weeks?: None caregiver/support person: Yes () household members: spouse housing: house marital status: 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 needs: No Have you lived/traveled outside US in past 30 days?: No Contact w/someone who lives/traveled outside US past 30 days?: No Exposure to someone with infectious disease in past 14 days?: No Do you have a fever (greater than 100.4 F or 38 C)?: No Have you tested positive for COVID-19?: No Exposed to someone with COVID-19 in past 14 days?: No Do you have a sore throat?: No Do you have a cough?: No Do you have any weakness?: No Do you have any diarrhea?: No Are you experiencing any unusual bleeding?: No Do you have any muscle aches/pain?: No Do you have any abdominal pain?: No Are you experiencing loss of taste or smell?: No Other Medical History Have you received the Flu Vaccine for this season: No Have you received the Pneumonia Vaccine: No ROS Obtained: Yes Systems reviewed as appropriate & no additional complaints except as documented Physical Exam General General appearance: alert and in no apparent distress Head Head exam: atraumatic and normocephalic Eye Eye exam: Present PERRL and EOMI ENT ENT exam: Present mucous membranes moist Neck Neck exam: Present normal inspection Chest Chest inspection: Present normal inspection and symmetric chest wall rise Respiratory Respiratory exam: Present normal lung sounds bilaterally; Absent respiratory distress Cardiovascular Cardiovascular exam: Present regular rate and normal rhythm Abdominal Exam Abdominal exam: Present soft; Absent tenderness, guarding, rebound or rigidity Extremities Exam Extremities exam: Present normal inspection; Absent edema Neurological Exam Neurological exam: Present alert and CN II-XII intact Psychiatric Psychiatric exam: Present normal affect Skin Skin exam: Present warm and dry Medical Decision Making Medical Records Screening: Per USPSTF and CDC recommendations, given the prevalence of disease in our region, it is our hospital?s policy to screen for HIV and viral Hepatitis for all patients aged 18 and over and those with ongoing risk factors. Michael Inquiry Pt receiving controlled substance: No Vital Signs: 09/30/25 10:56 09/30/25 10:56 09/30/25 11:30 Temperature 98.1 F 98.1 F Temperature Source Oral Oral Pulse Rate 69 68 Pulse Rate [Right] 69 Respiratory Rate 16 16 20 Blood Pressure 96/60 L 103/58 L Blood Pressure [Right Arm] 96/60 L Blood Pressure Mean [Right Arm] 72 Blood Pressure Source Automatic Cuff Blood Pressure Source [Right Arm] Automatic Cuff Blood Pressure Position Supine Blood Pressure Position [Right Arm] Supine 02 Sat by Pulse Oximetry 99 99 95 Oxygen Delivery Method Room Air Room Air 09/30/25 11:56 09/30/25 12:30 09/30/25 13:00 Temperature Temperature Source Pulse Rate 73 Pulse Rate [Right] Respiratory Rate 21 14 Blood Pressure 121/72 122/71 Blood Pressure [Right Arm] Blood Pressure Mean [Right Arm] Blood Pressure Source Blood Pressure Source [Right Arm] Blood Pressure Position Blood Pressure Position [Right Arm] 02 Sat by Pulse Oximetry 96 99 Oxygen Delivery Method Room Air Lab Data Lab Results 09/30/25 11:13: WBC 7.4, RBC 3.85 L, Hgb 12.6, Hct 36.6 L, MCV 95.1, MCH 32.7 H, MCHC 34.4, RDW 12.7, Plt Count 307, MPV 10.5 H, Neut % (Auto) 62.0, Lymph % (Auto) 17.8, Irion % (Auto) 12.9 H, Eos % (Auto) 5.2, Baso % (Auto) 1.7, Neut # (Auto) 4.6, Lymph # (Auto) 1.3, Irion # (Auto) 1.0, Eos # (Auto) 0.4, Baso # (Auto) 0.1, Sodium 125 L, Potassium 4.3, Chloride 92 L, Carbon Dioxide 21 L, Anion Gap 16.3 H, BUN 16, Creatinine 1.30 H, Estimated Creat Clear 33, Estimated GFR 40 L, Est GFR ( Amer) 48 L, Glucose 107 H, Calcium 11.6 H, Magnesium 1.5 L, Total Bilirubin 0.7, AST 29, ALT 16, Alkaline Phosphatase 106, Total Protein 7.2, Albumin 4.3, Globulin 2.9, Albumin/Globulin Ratio 1.5, Lipase 115 09/30/25 11:13 09/30/25 11:13 Orders (Tests/Meds): ED MEDICATIONS Discontinued Medications Generic Name Dose Route Start Last Admin Trade Name Freq PRN Reason Stop Dose Admin Lactated Ringer's 500 mls @ 999 mls/hr 09/30/25 11:50 09/30/25 12:15 Lactated Ringer's 1000 Ml Bag IV 09/30/25 12:20 999 mls/hr .Q31M ONE Administration ORDERS Category Date Time Status CBC w/Auto Diff [Complete Blood Count Auto Diff] Stat Lab 09/30/25 11:13 Completed CMP [Comprehensive Metabolic Panel] Stat Lab 09/30/25 11:13 Completed HIV Combo Stat Lab 09/30/25 11:13 Received Hepatitis C Ab Qual. W/ RFX Stat Lab 09/30/25 11:13 Received Lipase Stat Lab 09/30/25 11:13 Completed MG [Magnesium] Stat Lab 09/30/25 11:13 Completed UA [Urinalysis and Microscopic] Stat Lab 09/30/25 11:52 Ordered Medical Decision Narrative: In summary patient is a 79-year-old female with past medical history described above who presents to the emergency department for evaluation of acute on chronic nonbloody diarrhea. Patient is hemodynamically stable and nontoxic-appearing upon arrival, afebrile. Nontender abdomen. Differential includes chronic GI problems that have yet to be diagnosed, gastroenteritis, metabolic derangement, among others. Workup will be conducted with hematologic labs, urinalysis, EKG. Initial interventions include gentle crystalloid resuscitation given her history of heart failure. Patient is not tender to superficial or deep palpation in all quadrants of the abdomen CT imaging was considered will be deferred at this time. Initial hematologic labs reviewed by me and are largely nonactionable, no significant leukocytosis no transfusable anemia patient has hyponatremia which per chart review appears chronic and waxes and wanes in the 120s, no MARY per rifle criteria, minimal hypomagnesemia which will be repleted orally lipase normal. Upon repeat evaluation patient is requesting to go home. I discussed case with Dr. Garcia regarding management with both agree patient is appropriate for outpatient management at this time we will refer her to Dr. Akhtar for evaluation of her chronic loose stools and she will follow-up with her PCP within 1 week. Patient was given return precautions. Critical Care Critical Care Time Critical Care Time: No
[2025-09-30 11:57] LABS: Hematocrit 36.6 % (37.0-47.0); Hemoglobin 12.6 g/dL (12.2-16.2); Immature Granulocytes % 0.4 %; Mean Corpuscular HGB Conc 34.4 g/dL (31.8-35.4); Mean Corpuscular Hemoglobin 32.7 pg (27.0-31.2); Mean Corpuscular Volume 95.1 fl (81-99); Nucleated Red Blood Cells % 0 %; Platelet Count 307 K/mm3 (142-424); Red Blood Count 3.85 M/mm3 (4.20-5.40); Red Cell Distribution Width-SD 43.9 fL; White Blood Count 7.4 K/mm3 (4.8-10.8)
[2025-09-30 12:11] LABS: Alanine Aminotransferase 16 U/L (12-78); Albumin Level 4.3 g/dl (3.5-5.0); Albumin/Globulin Ratio 1.5 (1.1-1.8); Alkaline Phosphatase 106 U/L (38-126); Anion Gap 16.3 mEq/L (5-15); Aspartate Amino Transferase 29 U/L (14-36); Bilirubin,Total 0.7 mg/dl (0.2-1.3); Blood Urea Nitrogen 16 mg/dl (7-17); Calcium 11.6 mg/dl (8.4-10.2); Carbon Dioxide 21 mmol/L (22.0-30.0); Chloride 92 mmol/L (98-107); Creatinine Clearance Estimated 33 mL/min (50-200); Creatinine,Serum 1.30 mg/dl (0.52-1.04); Estimated Glomerular Filt Rate 40 ml/min (>60); GFR (African American) 48 ML/MIN (>60); Globulin 2.9 g/dL (1.3-3.2); Glucose 107 mg/dl (74-100); Lipase 115 U/L (23-300); Magnesium 1.5 mg/dl (1.6-2.3); Potassium 4.3 mmoL/L (3.5-5.1); Sodium 125 mmol/L (136-145); Total Protein,Serum 7.2 g/dl (6.3-8.2)
[2025-09-30] MEDS: LACTATED RINGERS 1000ML 500 ML 999 ML IV (12:15)
--- NOTE | 2025-09-30 13:39 | PC.NURSE ---
paging mulberry at this time
[2025-09-30 13:52] LABS: Hepatitis C Ab Qual. W/ RFX NEGATIVE (Negative)
[2025-09-30] MEDS: MAGNESIUM OXIDE 400MG TABLET 400 MG PO (13:57)
--- NOTE | 2025-09-30 15:11 | CARE MANAGER ---
Met with patient to discuss need for physical rehab. I'm currently working with Marlene @ [facility] to see if she qualifies to return there under Medicare. Patient and spouse state they would not be able to go there under private pay.
--- NOTE | 2025-09-30 17:39 | PC.NURSE ---
report called to [facility] [place]
== END 2025-09-30 17:40 | disposition home or self-care (01) ==
PROVIDERS: Emergency Provider Emergency Medicine; PCP Family Medicine
DX: E86.0 Dehydration (principal); E87.1 Hypo-osmolality and hyponatremia; E83.42 Hypomagnesemia; R26.2 Difficulty in walking, not elsewhere classified; R19.7 Diarrhea, unspecified
CPT/HCPCS: 80053; 83690; 83735; 85025; 86803; 87389; 99285; J7120

== ENCOUNTER 2025-10-07 08:36 | Outpatient (CLI) | payer MEDICARE, OTHER, SELFPAY ==
--- OUTSIDE RECORDS SUMMARY | 2025-05-07 10:45 | XMS_ITS ---
Author [facility] Address [address] [place] [phone] Care Team Providers Care Manager Language Name Role Phone Raul Torres Primary Care Provider [phone] Allergies Allergen (clinical drug ingredient) Drug/Non Drug Allergy documented on EMR Reaction Allergy Type Onset Date Status amoxicillin Amoxicillin high dose causes nausea Drug Allergy Active amoxicillin / clavulanate Augmentin nausea Drug Allergy Active cefaclor Cefaclor nausea Drug Allergy Active Cefdinir GI upset Drug Allergy Active duloxetine [...] 1 tab(s) orally daily Active Vital Signs Blood pressure systolic 120 mm Hg 05/07/20 25 Blood pressure diastolic 72 mm Hg 025 Heart Rate 77 /min 05/07/2025 Height 65 in 05/07/2025 Weight 147.0 lbs 05/07/2025 BMI 24.46 kg/m2 05/07/2025 Encounters Encounter Location Date Provider Diagnosis [facility] [address] [phone] 05/07/2025 Raul Torres Inflammatory polyarthropathy M06.4 Assessments [...] mg 05/07/2025 1.5 mL Progress Notes * [place] HUYNH: 7 (79 yo F)Acc No.[id number]:05/07/2025 Progress Notes Patient: Andry PANIAGUA Provider: Raul Torres M.D. :1945 A ge:79 Y S ex:Female Date:05/07/2025 Address:[address], [place], [id number] Subjective: * Chief Complaints: * 1 . Cortisone shot. * HPI: R heumatology: She returns with a flare of joint pain in multiple joints, specifically her hands, elbows, shoulders, hips, and knees. She continues on daily prednisone and Plaquenil per her block hacker. * ROS: D ERMATOLOGY: no R jodi. n o H bere. G ASTROENTEROLOGY: Nausea y es. n o V omiting. n o D iarrhea.? U ROLOGY: no D ifficulty urinating. n o B lood in urine. * Medical History: h yperlipidemia-followed by Dr. Arrington, Hypertension, Hypothyroidism/goiter, Kidney stones, Allergic rhinitis, ASCVD: [place] - 09/2013-followed by Dr. Arrington q 6 months, Cataracts, Hyperuricemia, Inflammatory arthritis - Dr. Cheng, polymyalgia rheumatica - Dr. Cheng, Moderna Covid vaccine x2 Oct/Nov 2020. * Surgical History: T hyroidectomy/Goiter removal 1999, Back 2001, Total Hysterectomy 1992, Tonsillectomy child, Cardiac Stent Placed-[facility]-Dr Arrington. Dr. Santo 10/19/2013, Cataract 10/2017. * Hospitalization/Major Diagno stic Procedure: k idney stones 1992, Heart Attack- [place] 09/2013, Facial Pain, Sinus Blockage- [facility] 04/24/2018, Itching, Swelling in Hands- [facility] 10/21/2018, Multiple rib and pelvic fractures; hyponatremia; rheumatoid arthritis; ASCVD- 06/30-, Dehydration, Failure to Thrive, Acute Urinary Retention- [facility] 07/14-, [facility] : fall with multiple FX ribs on [...] on, J1010 Inj, methylpred acetate 1 mg, 92809 ADMINISTRATION OF INJECTION * Follow Up: p rn * Images: Billing Information: * Visit Code: 48960 Office Visit, Est Pt., Level 3. Modifiers: 25 * Procedure Codes: G2211 Complex e/m visit add on. J1010 Inj, methylpred acetate 1 mg. 23270 ADMINISTRATION OF INJECTION. * Electronic signature of Raul Torres MD on 10/07/2025 at 08:42 AM EST Sign off status: Pending * Provider: Raul Torres M.D. Date: 0 05/07/2025 Generated for Jerry panda/Kerwin/Arthur on: 1 12/08/2024 08:42 AM EST History and Physical Notes * HPI (History of Present Illness) Category Sub-Category Detail Notes Category Not es Rheumatology She returns wit h a flare of joint pain in multiple joints, specifically her hands, elbows, shoulders, hips, and knees. She continues on daily prednisone and Plaquenil per her block hacker. Examination Category Sub-Category Detail Notes Category Not es General Examination Heart: RSR Lungs: clear to auscultatio n Extremities: Chronic deformity wi th mild swelling of the joints of both hands. General Appearance: She ambulates with a walker. Affect is a bit more subdued
--- OUTSIDE RECORDS SUMMARY | 2025-05-19 05:00 | XMS_ITS ---
Author Organization [facility] Address [address] [facility] [address] [place] [phone] Care Team Providers Care Asbestos Remover Name Role Phone Raul Torres Primary Care Provider [phone] Allergies Allergen (clinical drug ingredient) Drug/Non Drug [...] 102 Performing Lab: Notes/Report: Test performed by [facility] [address] [place] [address] , [address], [place] [address] Gilmer Lowe MD, Industrial Laborer CLIA: [id number] Sodium 122 135-145 mmol/L Potassium 4.2 3.5-5.3 [...] [address] [place] [id number] 05/19/2025 Raul Torres Hyponatremia E87.1 ; Muscle weakness M62.81 and BMI 23.0-23.9, adult Z68.23 Assessments Encounter Date Diagnosis (ICD Code) Assessment Notes Treatment Notes Treatment Clinical Notes Section Notes 05/19/2025 Hyponatremia (ICD-10 - E87.1) 05/19/2025 Muscle weakness (ICD-10 - M62.81) 05/19/2025 BMI 23.0-23.9, adult (ICD-10 - Z68.23) Plan Of Treatment Next Appt Details Follow Up: 2 Months, Reason: Progress Notes * LINO AndryDOB: 7 (79 yo F)Acc No.[id number]:05/19/2025 Progress Notes Patient: Andry PANIAGUA Provider: Raul Torres M.D. :1945 A ge:79 Y S ex:Female Date:05/19/2025 Address:[address], [place], [id number] Subjective: * Chief Complaints: * 1 . [...] Hypertension, Hypothyroidism/goiter, Kidney stones, Allergic rhinitis, ASCVD: [place] - 09/2013-followed by Dr. Arrington q 6 months, Cataracts, Hyperuricemia, Inflammatory arthritis - Dr. Cheng, polymyalgia rheumatica - Dr. Cheng, Moderna Covid vaccine x2 Nov 2020. * Surgical History: T hyroidectomy/Goiter removal 1999, Back 2001, Total Hysterectomy 1992, Tonsillectomy child, Cardiac Stent Placed-[facility]-Dr Arrington. Dr. Santo 10/19/2013, Cataract 10/2017. * Hospitalization/Major Diagno stic Procedure: k idney stones 1992, Heart Attack- [place] 09/2013, Facial Pain, Sinus Blockage- [facility] 04/24/2018, Itching, Swelling in Hands- [facility] 10/21/2018, Multiple rib and pelvic fractures; hyponatremia; rheumatoid arthritis; ASCVD- 06/30-, Dehydration, Failure to Thrive, Acute Urinary Retention- [facility] 07/14-, [facility] : fall with multiple FX ribs [...] uscle weakness - M62.81 3 . B [place] 23.0-23.9, adult - Z68.23 Plan: * Treatment: [...] * Images: Billing Information: * Visit Code: 29286 Office Visit, Est Pt., Level 3. * Procedure Codes: G2211 Complex e/m visit add on. 1036F TOBACCO NON-USER. G8420 BMI<30 AND >=22 CALC & DOCU. G8783 BP SCR PRFRM RCMDD DEFIND SCR INTVL. G8752 MOST RECENT SYSTOLIC BP < 140MM HG. G8754 MOST RECENT DIASTOLIC BP < 90MM HG. * Electronic signature of Raul Torres MD on 10/07/2025 at 08:40 AM EST Sign off status: Pending * Provider: Raul Torres M.D. Date: 0 05/19/2025 Generated for Jerry panda/Kerwin/Arthur on: 1 12/08/2024 08:40 AM EST History and Physical Notes * HPI (History of Present Illness) Category Sub-Category Detail Notes Category Not es Cardiology Short of Breath Chest Pain Palpitations Dizziness HPI She comes in fo r scheduled follow-up and repeat labs to monitor [...]
--- OUTSIDE RECORDS SUMMARY | 2025-05-26 09:45 | XMS_ITS ---
Author Organization [facility] Address [address] [facility] [address] [place] [id number] Care Team Providers Care Reciprocating Drill Operator Name Role Phone Raul Torres Primary [...] Reason For Referral Reason Dr. Lee at [facility] for hyponatremia/ possible adrenal insufficiency Diagnosis 1 Hyponatremia (E87.1) Referral Organization [facility] Referring Provider First Name Raul Lopez Referring Provider Last Name Melissa Referring Provider [facility] ctice Referred Provider Endocrinology, . Referred Provider Specialty Endocrinolog y General Notes Keira Burger 2024 10:04:16 AM > faxed to [facility] Endo Referral Priority Routine Reason memory loss/ confusi on Diagnosis 1 Memory loss (R41.3) Referral Organization [facility] Referring Provider First Name Raul Lopez Referring Provider Last Name Melissa Referring Provider [facility] ctice Referred Provider Radha Ignacio Referred Provider Specialty Neurology General Notes Keira Burger 2024 09:55:39 AM > faxed to [facility] Neurology, Keira Burger 05/29/2025 10:50:10 AM [...] W/U Status Risk Notes Problem Memory loss (18839976) Memory loss (R41.3) Active confirmed Vital Signs Blood pressure systolic 110 mm Hg 05/26/20 25 Blood pressure diastolic 76 mm Hg 025 Heart Rate 72 /min 05/26/2025 Height 65 in 05/26/2025 Weight 146.2 lbs 05/26/2025 BMI 24.33 kg/m2 05/26/2025 Encounters Encounter Location Date Provider Diagnosis [facility] [address] [place] [id number] 05/26/2025 Raul Torres Hyponatremia E87.1 ; Memory loss R41.3 and BMI 24.0-24.9, adult Z68.24 Assessments Encounter Date Diagnosis (ICD Code) Assessment Notes Treatment Notes Treatment Clinical Notes Section Notes 05/26/2025 Hyponatremia (ICD-10 - E87.1) 05/26/2025 Memory loss (ICD-10 - R41.3) 05/26/2025 BMI 24.0-24.9, adult (ICD-10 - Z68.24) Plan Of Treatment Referrals Referral Date Details 05/26/2025 05/26/2025, Dr. Sophie pineda at [facility] for hyponatremia/ possible adrenal insufficiency, . Endocrinology 05/26/2025 05/26/2025, memory l oss/ confusion, Radha Ignacio Next Appt Details Follow Up: after consultatio n, Reason: Progress Notes * Andry HUYNHDOB: 7 (79 yo F)Acc No.[id number]:05/26/2025 Progress Notes Patient: Andry PANIAGUA Provider: Raul Torres M.D. :1945 A ge:79 Y S ex:Female Date:05/26/2025 Address:[address] [facility], [facility], [id number] Subjective: * Chief Complaints: * 1 . [...] * Medical History: h yperlipidemia-followed by Dr. Eres, Hypertension, Hypothyroidism/goiter, Kidney stones, Allergic rhinitis, ASCVD: [place] - 09/2013-followed by Dr. Arrington q 6 months, Cataracts, Hyperuricemia, Inflammatory arthritis - Dr. Cheng, polymyalgia rheumatica - Dr. Cheng, Moderna Covid vaccine x2 Nov 2020. * Surgical History: T hyroidectomy/Goiter removal 1999, Back 2001, Total Hysterectomy 1992, Tonsillectomy child, Cardiac Stent Placed-[facility]-Dr Arrington. Dr. Santo 10/19/2013, Cataract 10/2017. * Hospitalization/Major Diagno stic Procedure: k idney stones 1992, Heart Attack- [place] 09/2013, Facial Pain, Sinus Blockage- [facility] ER 04/24/2018, Itching, Swelling in Hands- [facility] ER 10/21/2018, Multiple rib and pelvic fractures; hyponatremia; rheumatoid arthritis; ASCVD- 06/30-, Dehydration, Failure to Thrive, Acute Urinary Retention- [facility] 07/14-, [facility] : fall with multiple FX ribs [...] M yvette loss - R41.3 ?3. B [place] 24.0-24.9, adult - Z68.24 Plan: * Treatment: [...] * Images: Billing Information: * Visit Code: 91208 Office Visit, Est Pt., Level 3. * [...] M.D. Date: 0 05/26/2025 Generated for Jerry panda/Kerwin/eTransmitting on: 1 12/08/2024 08:40 AM EST History [...] Torres Endocrinology, . Dr. Edy matos at [facility] for hyponatremia/ possible adrenal insufficiency 05/26/2025 Raul Torres Maria memory los s/ confusion
--- OUTSIDE RECORDS SUMMARY | 2025-05-28 03:20 | XMS_ITS ---
Author Organization [facility] Address [address] [facility] [address] [place], [place] [address] Care Team Providers Care Trombone Slide Assembler Name Role Phone Raul Torres Primary Care Provider [phone] Results Component Value Reference Range Notes Urinalysis - Inhouse Reviewed date:05/28/2025 03:50:05 PM Interpretation: Performing Lab: Notes/Report: Color/Clarity yellow/clear Leuk neg Nitrite neg Urobili 3.2 Protein neg pH 8.0 Blood neg Sp. Gr. 1.015 Ketone neg Bili neg Gluc neg REASON FOR VISIT urine sample Problems Problem Type SNOMED Code ICD Code Onset Dates Problem Status W/U Status Risk Notes Problem Altered mental status (010714548) Altered mental state (R41.82) Active confirmed Encounters Encounter Location Date Provider Diagnosis [facility] [address] [place] [phone] 05/28/2025 Raul Torres Altered mental state R41.82 Assessments Encounter Date Diagnosis (ICD Code) Assessment Notes Treatment Notes Treatment Clinical Notes Section Notes 05/28/2025 Altered mental state (ICD-10 - R41.82) Plan Of Treatment No Information Progress Notes * Andry HUYNHDOB: 7 (79 yo F)Acc No.[id number]:05/28/2025 Patient: Andry PANIAGUA Provider: Raul Torres M.D. :1945 A ge:79 Y S ex:Female Date:05/28/2025 Address:[address], [id number] Subjective: * Chief Complaints: * 1 . Urine sample. * Medical History: Objective: * Vitals: Assessment: * Assessment: 1. A ltered mental state - R41.82 (Primary) Plan: * Treatment: Value Reference Range C olor/Clarity yellow/clear * L euk neg * N itrite neg * U robili 3.2 * P rotein neg * p H 8.0 * B lood neg * S p. Gr. 1.015 * K etone neg * B stefan neg * G marino neg * Uzma Laureano 05/28/2025 10:22 :33 AM EDT >Raul Torres 05/28/2025 03:49:53 PM EDT > reviewed. * Procedure Codes: 8 1002 Urinalysis, no micro * Images: Billing Information: * Visit Code: * Procedure Codes: 17580 Urinalysis, no micro. * Electronic signature of Raul Torres MD on 10/07/2025 at 08:40 AM EST Sign off status: Pending * Provider: Raul Torres M.D. Date: 0 05/28/2025 Generated for Jerry panda/Kerwin/Mikeransmitting on: 1 12/08/2024 08:40 AM EST
--- OUTSIDE RECORDS SUMMARY | 2025-06-16 11:30 | XMS_ITS ---
Author Organization [facility] Address [address] [facility] [address] [place] [phone] Care Team Providers Care Manufacturing Lab Technician Name Role Phone Raul Torres Primary Care Provider [phone] Allergies Allergen (clinical drug ingredient) Drug/Non Drug [...] 06/16/2025 Encounters Encounter Location Date Provider Diagnosis [facility] [address] [facility] [address] [place] [address], [place] [phone] 06/16/2025 Raul Torres Rheumatoid arthritis M06.9 ; [...] Date:06/16/2025 Address:[address], [place], [id number] Subjective: * Chief Complaints: * 1 . [...] [facility] 09/2013, Facial Pain, Sinus Blockage- [facility] ER 04/24/2018, Itching, Swelling in Hands- [facility] 10/21/2018, Multiple rib and pelvic fractures; hyponatremia; rheumatoid arthritis; ASCVD- 06/30-, Dehydration, Failure to Thrive, Acute Urinary Retention- [facility] 07/14-, [facility] : fall with multiple FX ribs on [...] on, J1010 Inj, methylpred acetate 1 mg, 27312 ADMINISTRATION OF INJECTION * Follow Up: 2 Months * Images: Billing Information: * Visit Code: 55114 Office Visit, Est Pt., Level 3. Modifiers: 25 * Procedure Codes: G2211 Complex e/m visit add on. J1010 Inj, methylpred acetate 1 mg. 45402 ADMINISTRATION OF INJECTION. * Electronic signature of Raul Torres MD on 10/07/2025 at 08:41 AM EST Sign off status: Pending * Provider: Raul Torres M.D. Date: 0 06/16/2025 Generated for Jerry panda/Kerwin/Adrianitting on: 12/08/2024 08:41 AM EST History and Physical Notes * Examination Category Sub-Category Detail Notes Category Not es General Examination Heart: RSR Lungs: clear to auscultatio n Extremities: 1+ pedal and ankle e stephanie bilaterally. General Appearance: NAD
--- OUTSIDE RECORDS SUMMARY | 2025-07-15 06:25 | XMS_ITS ---
Author Organization [facility] Address [address] [place] [phone] Care Team Providers Care Small Business Representative Name Role Phone Raul Torres Primary Care Provider REASON FOR VISIT flu shot Medications Medication SIG (Take, Route, Frequency, Duration) Notes Start Date End Date Status Chlorthalidone 12.5 MG 1 tablet in the m orning with food Orally daily; Duration: 90 days Active Acetaminophen 500 MG 1 capsule as needed Orally every 6 hrs prn Active predniSONE 5 MG 1 tab orally once a day Active Carvedilol 12.5 MG 1 tab(s) Orally 2 ti mes a day Active Plaquenil 200 MG 1 tab(s) orally daily Active Benzonatate 100 MG 1 capsule as needed Orally Three times a day 05/29/2025 Active Potassium Chloride Cathy ER 1 0 MEQ 1 tablet with food Orally Twice a day; Duration: 90 days Active Hyoscyamine Sulfate 0.125 MG 1 tab(s) Or ally four times a day as needed for diarrhea Active Ondansetron HCl 4 MG 1 tablet Orally 3 t imes a day prn Active Tamsulosin HCl 0.4 MG 1 capsule Orally O nce a day; Duration: 90 days Active Cyclobenzaprine HCl 5 MG 1 tab 3 times a day As needed Active Pravastatin Sodium 40 MG 1 tablet Orally Once a day Active traMADol HCl 50 MG 1 tab(s) Orally q6h prn 024 Active Levothyroxine Sodium 112 MCG 1 tablet in the morning on an empty stomach Orally Once a day; Duration: 90 days Active Lidocaine 5 % 1 patch remove after 12 hours Externally Once a day 02/17/2025 Active Melatonin 3 MG 1 tablet in the even ing at HS Active Aspirin Adult Low Dose 81 MG 1 tab(s) or ally once a day Active Immunizations Vaccine Route Administration Date Status Comme nts Fluzone High Dose (65yr and older) IM Intramuscular 07/15/2025 Administered Encounters Encounter Location Date Provider Diagnosis [facility] [address] [facility] [address] [place] [phone] 07/15/2025 Raul Torres Encounter for immunization Z23 Assessments Encounter Date Diagnosis (ICD Code) Assessment Notes Treatment Notes Treatment Clinical Notes Section Notes 07/15/2025 Encounter for immunization (ICD-10 - Z23) Plan Of Treatment No Information Progress Notes * LINO AndryDOB: 7 (79 yo F)Acc No.[id number]:07/15/2025 Patient: Andry PANIAGUA Provider: Raul Torres M.D. :1945 A ge:79 Y S ex:Female Date:07/15/2025 Address:[address] [place] [address], [place], [id number] Subjective: * Chief Complaints: * 1 . Flu shot. * Medical History: * Medications: T aking Plaquenil 200 MG [...] 3 times a day As needed, Taking Potassium Chloride Cathy ER 10 MEQ [...] the morning with food Orally daily , Medication List reviewed and reconciled with the patient Objective: * Vitals: Assessment: * Assessment: 1. E ncounter for immunization - Z23 (Primary) Plan: * Treatment: * Immunizations: Fluzone High Dose (65yr and older) : 0.5 mL (Route: Intramuscular) given by Rosibel Yu on Right Deltoid (Encounter for immunization) * Images: Billing Information: * Visit Code: * Procedure Codes: * Electronic signature of Raul Torres MD on 10/07/2025 at 08:41 AM EST Sign off status: Pending * Provider: Raul Torres M.D. Date: 0 07/15/2025 Generated for Jerry panda/Kerwin/Arthur on: 1 12/08/2024 08:41 AM EST
--- OUTSIDE RECORDS SUMMARY | 2025-07-21 05:45 | XMS_ITS ---
Author Organization Jared Address [address] [facility] [address] [facility] [address] [place] [id number] Care Team Providers Care Student Activities Director Name Role Phone Raul Torres Primary Care Provider [phone] REASON FOR VISIT foot still swelling Encounters Encounter Location Date Provider Diagnosis [facility] [address] [place] [phone] 07/21/2025 Raul Torres Plan Of Treatment No Information Progress Notes * Andry HUYNHDOB: 7 (79 yo F)Acc No.[id number]:07/21/2025 Progress Notes Patient: Andry PANIAGUA Provider: Raul Torres M.D. :1945 A ge:79 Y S ex:Female Date:07/21/2025 Address:[address] [place], [place], [id number] Subjective: * Chief Complaints: * 1 . Foot still swelling. * Medical History: Objective: * Vitals: Assessment: Plan: * Treatment: * Images: Billing Information: * Visit Code: * Procedure Codes: * Electronic signature of Raul Torres MD on 10/07/2025 at 08:41 AM EST Sign off status: Pending * Provider: Raul Torres M.D. Date: 07/21/2025 Generated for Jerry panda/Kerwin/Arthur on: 12/08/2024 08:41 AM EST
--- OUTSIDE RECORDS SUMMARY | 2025-08-04 09:30 | XMS_ITS ---
Author Organization [facility] Address [address] [place] [id number] Care Team Providers Care Pulp Press Tender Name Role Phone Raul Torres Primary Care Provider REASON FOR VISIT [facility] F/U Discharge Encounters Encounter Location Date Provider Diagnosis [facility] [address] [place] [id number] 08/04/2025 Raul Torres Plan Of Treatment No Information Progress Notes * Andry HUYNHDOB: 7 (79 yo F)Acc No.[id number]:08/04/2025 Patient: Andry PANIAGUA Provider: Raul Torres M.D. :1945 A ge:79 Y S ex:Female Date:08/04/2025 Address:[address], [place], [id number] Subjective: * Chief Complaints: * 1 . H F/U Discharge. * Medical History: Objective: * Vitals: Assessment: Plan: * Treatment: * Images: Billing Information: * Visit Code: * Procedure Codes: * Electronic signature of Raul Torres MD on 10/07/2025 at 08:41 AM EST Sign off status: Pending * Provider: Raul Torres M.D. Date: Generated for Jerry panda/Kerwin/Arthur on: 12/08/2024 08:41 AM EST
--- OUTSIDE RECORDS SUMMARY | 2025-09-03 05:45 | XMS_ITS ---
Author [facility] Address [address] [place] [phone] Care Team Providers Care Clean Rice Broker Name Role Phone Raul Torres Primary Care [...] W/U Status Risk Notes Problem Coronary arteriosclerosis ([id number]) ASCVD (arteriosclerotic cardiovascular disease) (I25.10) Active confirmed Vital Signs Blood pressure systolic 120 mm Hg 09/03/20 25 Blood pressure diastolic 70 mm Hg 025 Heart Rate 60 /min 09/03/2025 Height 65 in 09/03/2025 Weight 000 lbs 09/03/2025 Encounters Encounter Location Date Provider Diagnosis [facility] [address] [place], [place] [phone] 09/03/2025 R John Torres Rheumatoid arthritis , [...] ge:79 Y S ex:Female Date:09/03/2025 Address:[address], [place], [id number] Subjective: * Chief Complaints: * 1 . Shot for arthritis. * HPI: R heumatology: She presents with complaints of worsening pain in both shoulders and both hands with swelling of the joints of her hand. She is requesting a steroid injection. She continues on oral prednisone. She has not had recent follow-up with her insurance underwriter. C ardiology: She was hospitalized about a month ago with a UTI and NSTEMI. She was discharged to [facility] for rehab and just returned home [...] Procedure: k idney stones 1992, Heart Attack- [place] 09/2013, Facial Pain, Sinus Blockage- [facility] ER 04/24/2018, Itching, Swelling in Hands- [facility] ER 10/21/2018, Multiple rib and pelvic fractures; hyponatremia; rheumatoid arthritis; ASCVD- 06/30-, Dehydration, Failure to Thrive, Acute Urinary Retention- [facility] 07/14-, [facility] : fall with multiple FX [...] on, J1010 Inj, methylpred acetate 1 mg, 43206 ADMINISTRATION OF INJECTION * Follow Up: 3 Months * Images: Billing Information: * Visit Code: 35434 Office Visit, Est Pt., Level 3. Modifiers: 25 * Procedure Codes: G2211 Complex e/m visit add on. J1010 Inj, methylpred acetate 1 mg. 36691 ADMINISTRATION OF INJECTION. * Electronic signature of Raul Torres MD on 10/07/2025 at 08:41 AM EST Sign off status: Pending * Provider: Raul Torres M.D. Date: 11/03/2024 Generated for Jerry panda/Kerwin/Arthur on: 12/08/2024 08:41 AM EST History and [...]
--- OUTSIDE RECORDS SUMMARY | 2025-10-06 06:00 | XMS_ITS ---
Author Organization [facility] Address [address] [place] [id number] Care Team Providers Care Program Clerk Name Role Phone Raul Torres Primary Care Provider [phone] REASON FOR VISIT F/U from [facility] Encounters Encounter Location Date Provider Diagnosis [facility] [address] [facility] [address] [place] [phone] 10/06/2025 Raul Torres Assessments Encounter Date Diagnosis [...] ge:79 Y S ex:Female Date:10/06/2025 Address:[address], [id number] Subjective: * Chief Complaints: * 1 . F/U from [facility]. * HPI: H PI: Patient is here today for a Transition of Care Visit. Discharge from the following Facility: patient was admitted to [facility] on 09/21/2025 after several days of diarrhea and weakness ,Discharge date: 09/22/2025 ,Date of phone contact following discharge: 09/24/2025. * Medical History: Objective: * Vitals: Assessment: Plan: * Treatment: * Procedure Codes: 9 9495 TRANS CARE MGMT 14 DAY DISCH, 1111F DSCHR MED/CURENT MED MERGE, G2211 Complex e/m visit add on * Images: Billing Information: * Visit Code: * Procedure Codes: 54049 TRANS CARE MGMT 14 DAY DISCH. 1111F DSCHR MED/CURENT MED MERGE. G2211 Complex e/m visit add on. * Electronic signature of Raul Torres MD on 10/07/2025 at 08:40 AM EST Sign off status: Pending * Provider: Raul Torres M.D. Date: 12/07/2024 Generated for Jerry panda/Kerwin/Artuhr on: 12/08/2024 08:40 AM EST History and Physical Notes * HPI (History of Present Illness) Category Sub-Category Detail Notes Category Not es HPI Patient is here today for a Hernandez sition of Care Visit. Discharge from the following Facility: patient was admitted to [facility] on 09/21/2025 after several days of diarrhea and weakness ,Discharge date: 09/22/2025 ,Date of phone contact following discharge: 09/24/2025
--- OUTSIDE RECORDS SUMMARY | 2025-10-07 08:40 | XMS_ITS | Encounter Summary ---
Author Organization [facility] Address [address] [place] [address] Care Team Providers Care Correctional Officer Sergeant Name Role Phone Wyatt Torres MD Primary Care Provider Encounter Details Date Type Department Care Team (Late st Contact Info) Description 01/15/2025 Results Follow-Up [facility] [address] [facility] [address] [place] [phone] Jennyfer Porras APRN [address] [facility] [address] [place] [address] Social History Tobacco Use Types Packs/Day Years Used Date Smoking Tobacco: Former Cigarettes Smokeless Tobacco: Never Alcohol Use Standard Drinks/Week Comments Yes 0 (1 standard drink = 0.6 oz pur e alcohol) a glass of wine at [facility] Comments Unknown Sex and Gender Information Value Date Recorded Sex Assigned at Not on file Legal Sex Female 11:41 AM EDT Gender Identity Not on file Sexual Orientation Not on file documented as of this encounter Plan of Treatment Not on file documented as of this encounter Visit Diagnoses Not on filedocumented in this encounter Care Teams Correctional Officer Sergeant Relationship Specialty Start Date End Date Wyatt Torres MD [address] [facility] [address] [facility] [place] [address] PCP - General Family Medicine 12/26/24 documented as of this encounter
--- OUTSIDE RECORDS SUMMARY | 2025-10-07 08:40 | XMS_ITS | Encounter Summary ---
Author Organization [facility] Address [address] [place] [address] Care Team Providers Care Manager Gaming Name Role Phone Amparo Arrington MD Primary Care Provider [phone] Encounter Details Date Type Department Care Team (Late st Contact Info) Description 08/24/2025 Orders Only [facility] [address] [place] [address] Anita Luu Hyponatremia (Primary Dx); Vitamin [...] EST Office Visit [facility] [address] [place] [address] Vicente Rodrigez MD [address] [place] [phone] Scheduled Orders Name Type Priority Associated [...] as of this encounter Care Teams Manager Gaming Relationship Specialty Start Date End Date Amparo Arrington MD [address] [place] [address] PCP - General 03/04/21 documented as of this encounter
--- OUTSIDE RECORDS SUMMARY | 2025-10-07 08:40 | XMS_ITS | Clinical Summary ---
Author Organization Healthcare Address [address] [place] [address] Care Team Providers Care Mangle Roller Name Role Phone Amparo Arrington MD Primary Care Provider [phone] Allergies Active Allergy Reactions Criticality Noted Date [...] reviewed and stable PT/OT as tolerated [facility] Acquired hypothyroidism 06/30/2024 Overview (06/30/2024): Continue home levothyroxine Complicates all aspects of care Coronary artery disease invo lving [place] coronary artery of [place] heart without angina pectoris 06/30/2024 Overview (06/30/2024): [...] Department Care Team Description 08/24/2025 Orders Only [facility] [address] [place] [id number] [...] Description 10/23/2025 12:20 PM EST Office Visit [facility] [address] [place] [id number] Vicente Rodrigez MD [address] [place] [phone] Health Maintenance Due Date Last Done Comments [facility]-Bone Density Scan 1945 [facility]-Depression Screening 1945 [facility]-Medicare Annual Wellness (AWV) 1945 [facility]-Infant/Child/Adol SDOH Screenings 01/01/1947 [facility]- SDOH Screenings 1964 [facility]-Adult SDOH Screenings 1964 [facility]-Zoster Vaccines (1 of 2) 1965 [facility]-RSV Vaccine: 60+ Years or (1 - 1-dose 75+ series) 2021 [id number] Vaccine (2024- season) 2025 08/19/2024, 08/16/2023, 05/29/2023, Additional history exists [facility]-DTaP,Tdap,and Td Vaccines (4 - Td or Tdap) 06/30/2034 06/30/2024, 04/09/2023, 09/03/2018 [facility]-Pneumococcal Vaccine: 50+ Years Completed 07/12/2023, 05/14/2020 [facility]-Hepatitis C Screening Completed 06/30/2024 [facility]-Influenza Vaccine Completed 07/15/2025 , 07/11/2022, 07/26/2021, Additional history exists HPV Vaccines (No Doses Required) Completed [facility]-HIB Vaccines Aged Out No longer e [...] Antibody Negative Negative 06/30/2024 2:20 AM EDT [facility] Blood Venous blood specimen / Unknown Venipuncture / Unknown 06/30/2024 1:15 AM EDT 06/30/2024 1:40 AM EDT us Sami Rowell MD LAB BLOOD ORDERABLES Final Re sult [facility] [address] [place] [address] from Last 3 Months or Most Recently Relevant to Health Maintenance Insurance MEDICARE [facility] [place] [id number] Advance Directives * Full Code (Latest Code Status on File) Date Activated Date Inactivated Comments 07/04/2024 1:04 PM * Full Code Date Activated Date Inactivated Comments 06/30/2024 8:06 AM 07/04/2024 1:04 PM Question Answer Comments Patient has decision-making capacity? Yes Care Teams Mangle Roller Relationship Specialty Start Date End Date Amparo Arrington MD [address] [place] [address] [address] [place] [address] PCP - General 03/04/21
--- OUTSIDE RECORDS SUMMARY | 2025-10-07 08:40 | XMS_ITS | Clinical Summary ---
Author Organization [facility] Address [address] [place] [address] Care Team Providers Care Electric Dolly Operator Name Role Phone Wyatt Torres MD [...] e alcohol) a glass of wine at [facility] Comments Unknown Sex and Gender Information [...] - 200 mg/dL 01/15/2025 12:23 AM EDT [facility] Triglycerides 89 0 - 150 mg/dL 01/15/2025 12:23 AM EDT [facility] HDL Cholesterol 99(H) 40 - 60 mg/dL 01/15/2025 12:23 AM EDT [facility] LDL Cholesterol 75 0 - 100 mg/dL 01/15/2025 12:23 AM EDT [facility] VLDL Cholesterol 16 5 - 40 mg/dL 01/15/2025 12:23 AM EDT [facility] LDL/HDL Ratio 0.74 01/15/2025 12:23 AM EDT [facility] Blood Venipuncture / Unknown 01/14/2025 10:25 AM EDT 01/14/2025 10:26 AM EDT Narrative [facility] - 01/15/2025 12:23 AM [...] MD LAB BLOOD ORDERABLES Final Resul t [facility]
[address] [place] [address], from Last 3 Months or Most Recently Relevant to Health Maintenance Insurance MEDICARE A & B [employer] [facility] [place] [id number] Care Teams Electric Dolly Operator Relationship Specialty Start Date End Date Wyatt Torres MD [address] [facility] [address] [facility] [address] [place] [address] PCP - General Family Medicine 12/26/24
--- OUTSIDE RECORDS SUMMARY | 2025-10-07 08:42 | XMS_ITS | Clinical Summary ---
Author Organization [facility] Address [address] [place] [address] Phone Care Team Providers Care Speech Professor Name Role Phone Unavailable Primary Care Provider [...] B MEDICARE IN PART A AND B [facility]
--- OUTSIDE RECORDS SUMMARY | 2025-10-07 08:42 | XMS_ITS | Clinical Summary ---
Author Organization [facility] Address [address] [place] [address] Care Team Providers Care Canadian Bacon Tier Name Role Phone Wyatt Torres MD Primary Care Provider [phone] Source Comments This information has been disclosed [...] therelease of HIV test results or diagnoses. [id number] Allergies Active Allergy Reactions Criticality Noted [...] A AND B [employer] Care Teams Canadian Bacon Tier Relationship Specialty Start Date End Date Wyatt Torres MD [address] [place] [address] PCP - General Family Medicine 04/09/23
--- OUTSIDE RECORDS SUMMARY | 2025-10-07 08:43 | XMS_ITS | Patient Health Record ---
Author Organization [facility] Address [address] [facility] [address] [place] [id number] Care Team Providers Care Inpatient Nursing Aide Name Role Phone Raul Torres Primary Care Provider Marie Helm Unavailable [phone] Oneida Edwards Unavailable [phone] Allergies Allergen (clinical drug ingredient) Drug/Non Drug [...] 102 Performing Lab: Notes/Report: Test performed by [facility], [facility] , [address], [place] [address] Gilmer Lowe MD, Line Installer CLIA: [id number] Sodium 122 135-145 mmol/L Potassium 4.2 3.5-5.3 [...] 114 74-100 mg/dl CA 8.0 8.4-10.2 mg/dl H-Cardiac Enzymes Reviewed date:03/12/2025 11:04:11 [...] 97 74-100 mg/dl CA 8.2 8.4-10.2 mg/dl H-BMP Reviewed date:07/28/2025 11:32:54 AM Interpretation: Performing [...] K/mm3 NRBC# 0 IG# 0.80 H-BMP Reviewed date:07/27/2025 08:33:48 AM Interpretation: Performing [...] 0.1 0-0.2 K/mm3 NRBC# 0 IG# 0.69 H-BMP Reviewed date:03/17/2025 11:12:11 AM Interpretation: Performing [...] BUN 8 7-17 mg/dl Delta: 11 on 03/12/25-907 CREATT 0.70 0.52-1.04 mg/dl CRCLE 53 50-200 [...] 0.1 0-0.2 K/mm3 NRBC# 0 IG# 0.15 Cortisol AM Reviewed date:04/14/2025 01:09:28 PM Interpretation: Performing Lab: Notes/Report: Test performed by [facility], [facility] [address] [place] [address] , [address], [place] [address] Gilmer Lowe MD, Line Installer CLIA: [id number] Cortisol AM 5.3 6.0-18.4 ug/dL H-Magnesium Reviewed date:07/21/2025 08:59:07 AM Interpretation: Performing [...] K/mm3 NRBC# 0 IG# 0.09 H-BMP Reviewed date:07/22/2025 12:02:51 PM Interpretation: Performing [...] 0.1 0-0.2 K/mm3 NRBC# 0 IG# 0.07 CBC Fingerstick (in house) Reviewed date:02/05/2025 01:51:50 [...] Interpretation: Performing Lab: Notes/Report: Test performed by [facility], [facility] [address] [place] [address] , [address], [place] [address] Gilmer Lowe MD, Line Installer CLIA: [id number] Sodium 128 135-145 mmol/L Potassium 3.7 3.5-5.3 mmol/L Chloride 92 97-108 mmol/L CO2 24 22-32 mmol/L Glucose 93 65-99 mg/dL BUN 16 8-23 mg/dL Creatinine 1.02 0.50-1.00 mg/dL Calcium 9.2 8.6-10.4 mg/dL eGFR by Creatinine 56 >59 mL/min/1.73m2 GIMID Reviewed date:09/22/2025 09:54:38 AM Interpretation: Performing Lab: Notes/Report: CAMPYLOBACTER Not Detected NotDetected CLOSTR DIFFICIL Not Detected NotDetected SALMONELLA, PCR Not Detected NotDetected YERSINIA Not Detected NotDetected VIBRIO, PCR Not Detected NotDetected SHIGATOXIN Not Detected NotDetected SHIG-INVAS ECOL Not Detected NotDetected CRYPTO Not Detected NotDetected CYCLOSPORA Not Detected NotDetected GIARDIA Not Detected NotDetected NOROVIRUS Not Detected NotDetected H-CBC Reviewed date:09/22/2025 09:54:38 AM Interpretation: Performing Lab: Notes/Report: WBC 6.4 4.8-10.8 K/mm3 RBC 3.49 4.20-5.40 M/mm3 HGB 11.5 12.2-16.2 g/dL HCT 33.1 37.0-47.0 % MCV 94.8 81-99 fl MCH 32.1 27.0-31.2 pg MCHC 33.8 31.8-35.4 g/dL RDW-SD 44.5 RDW 12.8 11.5-17.5 % PLT 240 142-424 K/mm3 MPV 10.4 7.4-10.4 fl NE% 57.4 37.0-80.0 % LY% 20.3 10-50 % MO% 13.8 1.7-9.3 % EO% 6.3 0.1-12.0 % BA% 1.7 0.1-2.0 % NRBC% 0 IG% 0.5 NE# 3.7 1.8-7.8 K/mm3 LY# 1.3 0.7-4.5 K/mm3 MO# 0.9 0.1-1.0 K/mm3 EO# 0.4 0.0-0.4 Kmm3 BA# 0.1 0-0.2 K/mm3 NRBC# 0 IG# 0.03 H-BMP Reviewed date:09/22/2025 09:54:38 AM Interpretation: Performing Lab: Notes/Report: NA 129 136-145 mmol/L K 3.9 3.5-5.1 mmoL/L CL 98 98-107 mmol/L CO2 21 22.0-30.0 mmol/L GAP 13.9 5-15 mEq/L BUN 10 7-17 mg/dl CREATT 1.10 0.52-1.04 mg/dl CRCLE 39 50-200 mL/min GFRAA 58 >60 ML/MIN EGFR 48 >60 ml/min GLU 81 74-100 mg/dl Delta: 111 on 09/21/25 CA 10.0 8.4-10.2 mg/dl H-Magnesium Reviewed date:09/22/2025 09:54:38 AM Interpretation: Performing Lab: Notes/Report: MG 1.5 1.6-2.3 mg/dl CBC Venipuncture (in house) Reviewed date:04/16/2025 [...] capsule as needed Orally Three times a day; Duration: 10 days 05/29/2025 Active Ondansetron HCl 4 MG 1 tablet Orally 3 times a day prn Active Hyoscyamine Sulfate 0.125 MG 1 tablet [...] Immunizations Vaccine Route Administration Date Status Comme [facility] xFlu shot-36 months and older IM Intramuscular [...] Administered COVID 19 Moderna Unknown 01/24/2022 Administered Problems Problem Type SNOMED Code ICD Code Onset Dates Problem Status W/U Status Risk Notes Problem Essential hypertension (86769753) Essential (primary) hypertension (I10) Active confirmed Problem Coronary arteriosclerosis (01820539) ASCVD (arteriosclerotic cardiovascular disease) (I25.10) Active confirmed Problem Essential hypertension (09456521) Essential hypertension (I10) Active confirmed Problem Gout attack (354129704) Gout attack (M10.9) Active confirmed Problem Rhinitis (34738946) Rhinitis (J31.0) Active con firmed Problem Osteopenia (488341851) Osteopenia (M85.80) Active confirmed Problem Altered mental statu s (605234353) Altered mental state (R41.82) Active confirmed Problem Environmental allerg y (509340658) Environmental allergies (Z91.048) Active confirmed Problem Memory loss (13000315) Memory loss (R41.3) Active confirmed Problem Hypomagnesemia (603849399) Hypomagnesemia (E83.42) Active confirmed Problem Acute non-ST segment elevation myocardial infarction (909685591) Non-ST elevation (NSTEMI) myocardial infarction (I21.4) Active confirmed Problem Inflammatory polyarthropathy (791477803) 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) Active confirmed Problem Polymyalgia rheumatica (46051671) Polymyalgia rheumatica (M35.3) Active confirmed Problem Ataxic gait (36188930) Ataxic gait (R26.0) Active confirmed Problem Acquired hypothyroidism (678886374) Acquired hypothyroidism (E03.9) Active confirmed Problem Neck pain (23149809) Neck pain (M54.2) Active c onfirmed Problem Paresthesia (finding ) (47321804) Paresthesias (R20.2) Active confirmed Problem History of circulatory system disease (546105001) 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) Active confirmed Problem Muscle spasm (54498515) Muscle spasm (M62.838) Active confirmed Problem Rheumatoid arthritis (15249691) Rheumatoid arthritis (M06.9) Active confirmed Problem Sleep disorder (25198134) Sleep disorder (G47.9) Active confirmed Problem Cervical disc disorder (037902236) DDD (degenerative disc disease), cervical (M50.30) Active confirmed Problem Primary osteoarthritis (314500730) Primary osteoarthritis (M19.91) Active confirmed Problem Dyslipidemia (162886583) Dyslipidemia (E78.5) Active confirmed Problem Leukocytosis (856930308) Leukocytosis, unspecified (D72.829) Active confirmed Problem Impairment of balanc e (274047338) Balance problem (R26.89) Active confirmed Problem Anemia (805930476) Mild anemia (D64.9) Active c onfirmed Problem Rheumatoid arthritis (52205468) Rheumatoid arthritis, involving unspecified site, unspecified whether rheumatoid factor present (M06.9) Active confirmed Problem Systolic heart failure (883386725) HFrEF (heart failure with reduced ejection fraction) (I50.20) Active confirmed Problem Sialodocholithiasis (53991445) Sialodocholithiasis (K11.5) Active confirmed Vital Signs Heart Rate 60 /min 09/03/2025 Respiratory Rate 20 /min 03/31/2025 Blood pressure diastolic 70 mm Hg 09/03/2025 Height 65 in 09/03/2025 Blood pressure systolic 120 mm Hg 09/03/2025 Weight 000 lbs 09/03/2025 BMI 25.32 kg/m2 06/16/2025 Encounters Encounter Location Date Provider Diagnosis [facility] [address] [facility] [address] [facility] [address] [place] [id number] 11/13/2024 R John Melissa Chronic diarrhea K52 .9 and Rheumatoid arthritis, involving unspecified site, unspecified whether rheumatoid factor present M06.9 [facility] [address] [facility] [address] [facility] [address] [place] [id number] 12/12/2024 Oneida Edwards Open wound of right lower extremity, initial encounter S81.801A [facility] [address] [facility] [address] [facility] [address] [place] [id number] 12/25/2024 R John Melissa Rheumatoid arthritis M06.9 [facility] [address] [facility] [address] [place] [id number] 02/05/2025 R John Melissa Acute sinusitis J01. 90 ; Inflammatory polyarthropathy M06.4 ; Polymyalgia rheumatica M35.3 ; Acquired hypothyroidism E03.9 ; Dyslipidemia E78.5 ; Essential hypertension I10 and BMI 24.0-24.9, adult Z68.24 [facility] [address] [place] [id number] 02/17/2025 R John Melissa Glossitis K14.0 ; Shoulder pain M25.519 and BMI 24.0-24.9, adult Z68.24 [facility] [place] [id number] 03/31/2025 Marierossi Bernalond Polymyalgia rheumati ca M35.3 ; Rib fractures S22.39XA ; Acquired hypothyroidism E03.9 ; Dyslipidemia E78.5 ; Essential hypertension I10 ; Nausea R11.0 ; Leg edema R60.0 ; Hx of arteriosclerotic cardiovascular disease Z86.79 ; Accidental fall, subsequent encounter W19.XXXD ; Sleep disorder G47.9 and Hypokalemia E87.6 [facility] [address] [place] [id number] 04/09/2025 R John Melissa Hyponatremia E87.1 ; Rib fractures S22.39XA ; Chronic diarrhea K52.9 and BMI 23.0-23.9, adult Z68.23 [facility] [address] [place] [id number] 04/16/2025 R John Melissa Acute sinusitis J01. 90 ; Adhesive capsulitis of left shoulder M75.02 ; Dyslipidemia E78.5 ; Rib fractures S22.39XA ; Leg edema R60.0 and Onychomycosis B35.1 [facility] [address] [place] [id number] 05/07/2025 R John Melissa Inflammatory polyarthropathy M06.4 [facility] [address] [place] [id number] 05/19/2025 R John Melissa Hyponatremia E87.1 ; Muscle weakness M62.81 and BMI 23.0-23.9, adult Z68.23 [facility] [address] [place] [id number] 05/26/2025 R John Melissa Hyponatremia E87.1 ; Memory loss R41.3 and BMI 24.0-24.9, adult Z68.24 [facility] [address] [place] [id number] 05/28/2025 R John Melissa Altered mental state R41.82 [facility] [address] [facility] [address] [place] [id number] 06/16/2025 R John Melissa Rheumatoid arthritis M06.9 ; Leg edema R60.0 and Hyponatremia E87.1 [facility] [address] [facility] [address] [place] [id number] 07/15/2025 R John Melissa Encounter for immunization Z23 [facility] [address] [facility] [address] [place] [id number] 09/03/2025 R John Melissa Rheumatoid arthritis , involving unspecified site, unspecified whether rheumatoid factor present M06.9 and ASCVD (arteriosclerotic cardiovascular disease) I25.10 [facility] [address] [facility] [address] [place] [id number] 10/08/2024 R John Melissa [facility] [address] [facility] [address] [place] [id number] 10/23/2024 R John Melissa Leg edema R60.0 [facility] [address] [facility] [address] [place] [id number] 11/18/2024 R John Melissa Rib fractures S22.39 XA [facility] [address] [facility] [address] [place] [id number] 11/25/2024 R John Melissa [facility] [address] [facility] [address] [place] [id number] 12/12/2024 R John Melissa Chronic diarrhea K52 .9 [facility] [address] [place] [id number] 12/17/2024 R John Melissa Rib fractures S22.39 XA [facility] [address] [place] [id number] 12/26/2024 R John Melissa [facility] [address] [place] [id number] 2024 R John Melissa Chronic diarrhea K52 .9 [facility] [address] [place] [id number] 01/06/2025 R John Melissa [facility] [address] [place] [id number] 01/13/2025 R John Melissa Rib fractures S22.39 XA [facility] [address] [place] [id number] 01/21/2025 R John Melissa [facility] [address] [place] [id number] 01/30/2025 R John Melissa Rib fractures S22.39 XA [facility] [address] [place] [id number] 02/02/2025 R John Melissa [facility] [address] [place] [id number] 02/04/2025 R John Melissa Chronic diarrhea K52 .9 [facility] [address] [place] [id number] 02/16/2025 R John Melissa Rib fractures S22.39 XA [facility] [address] [place] [id number] 03/02/2025 Marie Helm Rib fractures S22.39 XA [facility] [address] [place] [id number] 03/16/2025 R John Melissa [facility] [address] [place] [id number] 03/23/2025 R John Melissa [facility] [address] [place] [id number] 04/02/2025 R John Melissa [facility] [address] [place] [id number] 04/07/2025 R John Melissa Leg edema R60.0 [facility] [address] [place] [id number] 04/09/2025 R John Melissa Leg edema R60.0 [facility] [address] [place] [id number] 04/10/2025 R John Melissa [facility] [address] [place] [id number] 04/13/2025 R John Melissa [facility] [address] [place] [id number] 04/13/2025 R John Melissa Acquired hypothyroid ism E03.9 [facility] [address] [place] [id number] 04/14/2025 R John Melissa [facility] [address] [place] [id number] 04/19/2025 R John Melissa Screening for osteoporosis Z13.820 [facility] [address] [place] [id number] 04/20/2025 R John Melissa [facility] [address] [place] [id number] 04/22/2025 R John Melissa Nausea R11.0 [facility] [address] [place] [id number] 05/06/2025 R John Melissa Hypokalemia E87.6 [facility] [address] [place] [id number] 05/26/2025 R Jhon Melissa [facility] [address] [place] [id number] 05/29/2025 Oneida Crowdy [facility] [address] [place] [id number] 06/02/2025 R John Melissa [facility] [address] [place] [id number] 06/02/2025 R John Melissa [facility] [address] [place] [id number] 06/09/2025 R John Melissa [facility] [address] [place] [id number] 06/09/2025 R John Melissa [facility] [address] [place] [id number] 06/18/2025 R John Melissa Leg edema R60.0 [facility] [address] [place] [id number] 06/25/2025 R John Melissa [facility] [address] [place] [id number] 07/06/2025 R John Melissa [facility] [address] [place] [id number] 07/24/2025 R John Melissa [facility] [address] [place] [id number] 08/04/2025 R John Melissa [facility] [address] [place] [id number] 09/07/2025 R John Melissa [facility] [address] [place] [id number] 09/14/2025 R John Melissa [facility] [address] [place] [id number] 09/22/2025 R John Melissa [facility] [address] [place] [id number] 09/28/2025 Raul [facility] [address] [place] [id number] 09/29/2025 Raul Torres [facility] [address] [facility] [address] [place] [id number] 09/29/2025 Raul Torres Nausea R11.0 Assessments Encounter Date Diagnosis (ICD Code) Assessment [...] Altered mental state (ICD-10 - R41.82) 06/16/2025 Leg edema (ICD-10 - R60.0) 06/16/2025 Rheumatoid arthritis (ICD-10 - M06.9) 06/18/2025 Leg edema (ICD-10 - R60.0) 07/15/2025 Encounter for immunization (ICD-10 - Z23) 09/03/2025 ASCVD (arteriosclerotic cardiovascular disease) (ICD-10 - I25.10) Continue f/u with cardiology 09/03/2025 Rheumatoid arthritis, involving unspecified site, unspecified whether rheumatoid factor present (ICD-10 - M06.9) 09/29/2025 Nausea (ICD-10 - R11.0) 06/16/2025 Hyponatremia (ICD-10 - E87.1) 05/26/2025 BMI 24.0-24.9, adult (ICD-10 - Z68.24) 05/19/2025 BMI 23.0-23.9, adult (ICD-10 - Z68.23) 04/16/2025 Dyslipidemia (ICD-10 - E78.5) 04/09/2025 Chronic diarrhea (ICD-10 - K52.9) 03/31/2025 Acquired hypothyroidism (ICD-10 - E03.9) 02/17/2025 BMI 24.0-24.9, adult (ICD-10 - Z68.24) 02/05/2025 Polymyalgia rheumatica (ICD-10 - M35.3) 02/05/2025 Acquired hypothyroidism (ICD-10 - E03.9) 03/31/2025 Dyslipidemia (ICD-10 - E78.5) 04/09/2025 BMI 23.0-23.9, adult (ICD-10 - Z68.23) 04/16/2025 Rib fractures (ICD-10 - S22.39XA) 04/16/2025 Leg edema (ICD-10 - R60.0) 02/05/2025 Dyslipidemia (ICD-10 - E78.5) 03/31/2025 Essential hypertension (ICD-10 - I10) 02/05/2025 Essential [...] Other she does plan to go home 10/06/2025 Other Discharge summary with available lab/diagnostic imaging results obtained and reviewed. Discharge medication list reconciled. Appropriate counseling provided. Moderate Complexity Plan Of Treatment Pending Test Test Name Order Date Bone density 04/19/2025 CT Scan : Hip, right, without contrast 0 05/01/2024 P-Cortisol AM 04/09/2025 Insurance Providers Payer Name Payer Address Payer Phone Subscriber Number Group Number Insured Name Patient Relationship to Insured Coverage Start Date Coverage End Date MEDICARE PART B [address] [address] [place] [address] [id number] Andry Clup Self - patient is the insured [employer] [place] [id number] Andry Culp Self - patient is the insured Medications [...] Medrol 40 mg/ml 09/03/2025 1 mL Dexamethasone 12/01/2013 1 mL Dexamethasone [...] - Dr. Cheng polymyalgia rheumatica - Dr. Cheng Modernlisa Covid vaccine x2 Oct/Nov 2020 Surgical History Surgery Date(Month/Year) Thyroidectomy/Goiter removal 1999 Back 2001 Total Hysterectomy 1992 Tonsillectomy child Cardiac Stent Placed-[facility]-Dr Arrington. Dr. Santo 10/19/2013 Cataract 10/2017 Hospitalization History Reason Date(Month/Year) Facial Pain, Sinus Blockage- [facility] 01/2018 Heart Attack- [facility] 09/2013 Itching, Swelling in Hands- [facility] 10/21 kidney stones 1992 [facility] : fall with multiple FX ribs on the right; hyponatremia and hypokalemia 03/12-03/15/2025 Dehydration, Failure to Thrive, Acute Ur inary Retention- [facility] 07/14- Multiple rib and pelvic frac tures; hyponatremia; rheumatoid arthritis; ASCVD- 06/30-
[2025-10-07 09:50] LABS: Anion Gap 14.2 mEq/L (5-15); Blood Urea Nitrogen 17 mg/dl (7-17); Calcium 11.0 mg/dl (8.4-10.2); Carbon Dioxide 22 mmol/L (22.0-30.0); Chloride 95 mmol/L (98-107); Creatinine,Serum 1.20 mg/dl (0.52-1.04); Estimated Glomerular Filt Rate 43 ml/min (>60); GFR (African American) 53 ML/MIN (>60); Glucose 106 mg/dl (74-100); Magnesium 1.5 mg/dl (1.6-2.3); Potassium 4.2 mmoL/L (3.5-5.1); Sodium 127 mmol/L (136-145)
[2025-10-07 10:07] LABS: Free T4 (Free Thyroxine) 2.32 ng/dl (0.78-2.19)
[2025-10-07 10:20] LABS: Thyroid Stimulating Hormone 0.50 uIU/mL (0.465-4.68)
--- OUTSIDE RECORDS SUMMARY | 2025-11-04 19:00 | XMS_ITS | Clinical Summary ---
Author Organization Unknown Care Team Providers Care Store Protection Specialist Name Role Phone BETH LEMOS, EMA Unavailable Unavailable KENDALL RN, NICOLE Unavailable Unavailable ANGIE FLAT FINISHER, JOSE M Unavailable Unavailable SHAUNNA PT, BHAVANA Unavailable Unavailable SUNITHA STATION HELPER, RIANA Unavailable Unavaillauren CARRION OT, ANN Unavailable Unavailable RENAE AMALIA/ISBELL, MARIEA Unavailable Unavail able Payers Payer Name Policy Type Policy Number Effective Date Expira tion Date MEDICARE.JOCELYN.[facility] [id number] Problems Condition Name Condition Details Condition Category Status Onset Date Resolution Date Last Treatment Date Treating Clinician Comments HYPERTENSIVE HEART DISEASE WITH HEART FAILURE Active 2024-10 00:00: 00 HEART FAILURE, UNSPECIFIED Active 2024-10 00:00: 00 ATHSCL HEART DISEASE OF [place] CORONARY ARTERY W/O ANG PCTRS Active 2024-10 [...] HISTORY OF FALLING Active 2024-10 00:00: 00 [facility] (CURRENT) USE OF ASPIRIN Active 2024-10 00:00: [...] 5-14 00:00: 00 04-13 08:31 :58 No [id number] DEFICIENCY 1 tablet DAILY 1 tablet DAILY (route: oral) Med Classific ation: Electroly te Balance-N utritiona l Products Adult Aspirin Regimen 81 mg tablet,maik yed release 2024-10 00:00: 00 Yes [id number] BLOOD THINNER 1 tablet DAILY 1 tablet DAILY (route: oral) Med Classific ation: Hematolog ical Agents benzonatate 100 mg capsule 2024-10 00:00: 00 Yes [id number] COUGH 1 capsule NEEDED 1 capsule NEEDED (route: oral) Med Classific ation: Respirato ry Therapy Agents carvedilol 12.5 mg tablet 2024-10 00:00: 00 Yes [id number] HEART 1 tablet DAILY 1 tablet DAILY (route: oral) Med Classific ation: Cardiovas cular Therapy Agents cyclobenzap rine 5 mg tablet 2024-10 00:00: 00 Yes [id number] MUSCLE SPASMS 1 tablet EVERY PM 1 tablet EVERY PM (route: oral) Med Classific ation: Locomotor System Entresto 24 mg-26 mg tablet 2024-10 00:00: 00 Yes [id number] HEART FAILURE 1 tablet 2 TIMES DAILY 1 tablet 2 TIMES DAILY (route: oral) Med Classific ation: Cardiovas cular Therapy Agents hydroxychlo roquine 200 mg tablet 2024-10 00:00: 00 Yes [id number] UNKNOWN 1 tablet DAILY 1 tablet DAILY (route: oral) Med Classific ation: Anti-Infe ctive Agents hyoscyamine 0.125 mg disintegrat ing tablet 2024-10 00:00: 00 Yes [id number] DIARRHEA 1 tablet NEEDED 1 tablet NEEDED (route: oral) Med Classific ation: Gastroint estinal Therapy Agents levothyroxi ne 112 mcg capsule 2024-10 00:00: 00 Yes [id number] NO THYROID 1 capsule DAILY 1 capsule DAILY (route: oral) Med Classific ation: Endocrine ondansetron 4 mg disintegrat ing tablet 2024-10 00:00: 00 Yes [id number] NAUSEA OR VOMITING 1 tablet NEEDED 1 tablet NEEDED (route: oral) Med Classific ation: Gastroint estinal Therapy Agents potassium chloride ER 10 mEq tablet,exte nded release 2024-10 00:00: 00 Yes [id number] DEFICIENCY 1 tablet DAILY 1 tablet DAILY (route: oral) Med Classific ation: Electroly te Balance-N utritiona l Products pravastatin 40 mg tablet 2024-10 00:00: 00 Yes [id number] CHOLESTEROL 1 tablet DAILY 1 tablet DAILY (route: oral) Med Classific ation: Cardiovas cular Therapy Agents spironolact one 25 mg tablet 2024-10 00:00: 00 Yes [id number] FLUID 1 tablet DAILY 1 tablet DAILY (route: oral) Med Classific ation: Cardiovas cular Therapy Agents tamsulosin 0.4 mg capsule 2024-10 00:00: 00 Yes [id number] URINARY 1 mg DAILY 1 mg GIANNA [...] DR.RUDY SEPULVEDA. RN TO OBSERVE AND ASSESS, FLAT FINISHER/AIRPLANE RENTAL CLERK TO OBSERVE FOR RISK FOR FALLS AND INSTRUCT IN FALL PREVENTION, HOME SAFETY, MEDICATION MANAGEMENT, INFECTION PREVENTION, AND NUTRITION MANAGEMENT. RN/FLAT FINISHER/AIRPLANE RENTAL CLERK NURSE MAY PERFORM O2 SATURATION LEVEL ON ADMISSION AND PRN FOR RN TO ASSESS/FLAT FINISHER TO OBSERVE PATIENT, WITH NOTIFICATION TO THE PHYSICIAN IF SATURATION IS 90% IN THE ABSENCE OF MORE SPECIFIC PARAMETERS FROM THE PHYSICIAN. AGENCY MAY PERFORM A RESUMPTION OF CARE VISIT FOLLOWING ANY HOSPITAL ADMISSION. RN/FLAT FINISHER/AIRPLANE RENTAL CLERK TO MONITOR CO-MORBID CONDITIONS LISTED ON THE PLAN OF CARE AND ANY NEW CONDITIONS THAT PRESENT THEMSELVES DURING THIS EPISODE TO IDENTIFY CHANGES AND INTERVENE TO MINIMIZE COMPLICATIONS. [code = RN TO OBSERVE, ASSESS, EVALUATE, AND DEVELOP AN INDIVIDUALIZED PLAN OF CARE. AGENCY MAY ACCEPT ORDERS FROM CONSULTING PHYSICIANS , , , DR.MARIA BROWN, DR.RUDY SEPULVEDA. RN TO OBSERVE AND ASSESS, FLAT FINISHER/AIRPLANE RENTAL CLERK TO OBSERVE FOR RISK FOR FALLS AND INSTRUCT IN FALL PREVENTION, HOME SAFETY, MEDICATION MANAGEMENT, INFECTION PREVENTION, AND NUTRITION MANAGEMENT. RN/FLAT FINISHER/AIRPLANE RENTAL CLERK NURSE MAY PERFORM O2 SATURATION LEVEL ON ADMISSION AND PRN FOR RN TO ASSESS/FLAT FINISHER TO OBSERVE PATIENT, WITH NOTIFICATION TO THE PHYSICIAN IF SATURATION IS 90% IN THE ABSENCE OF MORE SPECIFIC PARAMETERS FROM THE PHYSICIAN. AGENCY MAY PERFORM A RESUMPTION OF CARE VISIT FOLLOWING ANY HOSPITAL ADMISSION. RN/FLAT FINISHER/AIRPLANE RENTAL CLERK TO MONITOR CO-MORBID CONDITIONS LISTED ON THE PLAN OF CARE AND ANY NEW CONDITIONS THAT PRESENT THEMSELVES DURING THIS EPISODE TO IDENTIFY CHANGES AND INTERVENE TO MINIMIZE COMPLICATIONS.] Future Scheduled Test MEDICATION MANAGEMENT; RN/FLAT FINISHER/AIRPLANE RENTAL CLERK TO REVIEW MEDICATIONS FOR INTERACTIONS, EFFECTIVENESS OF DRUG THERAPY, AND SIGNS/SYMPTOMS OF ADVERSE REACTIONS. MAY INSTRUCT AND REINFORCE MEDICATION TEACHING RELATED TO THE USE OF MEDICATIONS, DOSAGE, FREQUENCY, PURPOSE, SIDE EFFECTS, AND TO REPORT COMPLICATIONS. [code = MEDICATION MANAGEMENT; RN/FLAT FINISHER/AIRPLANE RENTAL CLERK TO REVIEW MEDICATIONS FOR INTERACTIONS, EFFECTIVENESS OF DRUG THERAPY, AND SIGNS/SYMPTOMS OF ADVERSE REACTIONS. MAY INSTRUCT AND REINFORCE MEDICATION TEACHING RELATED TO THE USE OF MEDICATIONS, DOSAGE, FREQUENCY, PURPOSE, SIDE EFFECTS, AND TO REPORT COMPLICATIONS.] Future Scheduled Test CARDIOVASC ULAR SYSTEM; RN TO ASSESS/TEACH, FLAT FINISHER/AIRPLANE RENTAL CLERK TO OBSERVE/TEACH RELATED TO ALTERED CARDIOVASCULAR STATUS TO MINIMIZE COMPLICATIONS AND REDUCE HOSPITALIZATION. [code = CARDIOVASCULAR SYSTEM; RN TO ASSESS/TEACH, FLAT FINISHER/AIRPLANE RENTAL CLERK TO OBSERVE/TEACH RELATED TO ALTERED CARDIOVASCULAR STATUS TO MINIMIZE COMPLICATIONS AND REDUCE HOSPITALIZATION.] Future Scheduled Test HEART FAIL URE; RN TO ASSESS/TEACH, FLAT FINISHER/AIRPLANE RENTAL CLERK TO OBSERVE/TEACH CARDIOPULMONARY SYSTEM TO IDENTIFY SIGNS [...] [code = HEART FAILURE; RN TO ASSESS/TEACH, FLAT FINISHER/AIRPLANE RENTAL CLERK TO OBSERVE/TEACH CARDIOPULMONARY SYSTEM TO IDENTIFY SIGNS [...] ACUTE MYOC ARDIAL INFARCT; RN TO ASSESS/TEACH, FLAT FINISHER/AIRPLANE RENTAL CLERK TO OBSERVE/TEACH WARNING SIGNS AND SYMPTOMS TO AVOID HOSPITALIZATION. [code = ACUTE MYOCARDIAL INFARCT; RN TO ASSESS/TEACH, FLAT FINISHER/AIRPLANE RENTAL CLERK TO OBSERVE/TEACH WARNING SIGNS AND SYMPTOMS TO AVOID HOSPITALIZATION.] Future Scheduled Test PHYSICAL T HERAPIST TO EVALUATE FOR STRENGTH, GAIT, ENDURANCE,BALANCE [code = PHYSICAL THERAPIST TO EVALUATE FOR STRENGTH, GAIT, ENDURANCE,BALANCE] Future Scheduled Test OCCUPATION AL THERAPIST TO EVALUATE FOR ADLS AND IADLS [code = OCCUPATIONAL THERAPIST TO EVALUATE FOR ADLS AND IADLS] Future Scheduled Test PRN VISITS ; NUMBER OF RN/FLAT FINISHER/AIRPLANE RENTAL CLERK VISITS: 2 RN/FLAT FINISHER/AIRPLANE RENTAL CLERK TO PERFORM: EVALUATE FOR FLUID OVERLOAD FOR THE FOLLOWING REASONS: RECENT DIAGNOSIS OF CHF [code = PRN VISITS; NUMBER OF RN/FLAT FINISHER/AIRPLANE RENTAL CLERK VISITS: 2 RN/FLAT FINISHER/AIRPLANE RENTAL CLERK TO PERFORM: EVALUATE FOR FLUID OVERLOAD FOR THE FOLLOWING REASONS: RECENT DIAGNOSIS OF CHF] Future Scheduled Test PAIN MANAG EMENT; RN TO ASSESS AND TEACH, AIRPLANE RENTAL CLERK/FLAT FINISHER TO OBSERVE AND TEACH AND PROVIDE EDUCATION ON PAIN MANAGEMENT TECHNIQUES. [code = PAIN MANAGEMENT; RN TO ASSESS AND TEACH, AIRPLANE RENTAL CLERK/FLAT FINISHER TO OBSERVE AND TEACH AND PROVIDE EDUCATION [...] AND FUNCTIONAL INDEPENDENCE IN HOME PERSONAL HYGIENE/GROOMING (OT/COMPUTER HARDWARE DEVELOPER) BATHING/SHOWERING (OT/AMALIA) DRESSING (OT/COMPUTER HARDWARE DEVELOPER) ACTIVITIES OF DAILY LIVING (OT/AMALIA) TOILET TRANSFER (OT/AMALIA) BATH/SHOWER TRANSFER (OT/COMPUTER HARDWARE DEVELOPER) THERAPEUTIC EXERCISE (OT/AMALIA) OT/COMPUTER HARDWARE DEVELOPER MAY EDUCATE ON PAIN MANAGEMENT CLINICALLY INDICATED, [...] (OT/AMALIA) DRESSING (OT/AMALIA) ACTIVITIES OF DAILY LIVING (OT/COMPUTER HARDWARE DEVELOPER) TOILET TRANSFER (OT/COMPUTER HARDWARE DEVELOPER) BATH/SHOWER TRANSFER (OT/AMALIA) THERAPEUTIC EXERCISE (OT/COMPUTER HARDWARE DEVELOPER) OT/COMPUTER HARDWARE DEVELOPER MAY EDUCATE ON PAIN MANAGEMENT CLINICALLY INDICATED, [...] End Date/Time Encounter Type Admission Type Attending [facility] Care Facility Care Department Encounter ID Discharge Date Discharge Status Discharge Condition Discharge Reason Percent Goals Met 2025-09-07 00:00:00 2025-11-05 00:00:00 Outpatient NICOLE ARREOLA [facility] [id number] 100.00
== END 2025-10-07 23:59 | disposition home or self-care (01) ==
LOC: LAB.DROPOF 08:36
PROVIDERS: PCP Family Medicine; Visit Provider Family Medicine
DX: E89.0 Postprocedural hypothyroidism (principal); E87.1 Hypo-osmolality and hyponatremia; E83.52 Hypercalcemia
CPT/HCPCS: 36415; 80048; 83735; 84439; 84443

== ENCOUNTER 2025-10-16 09:25 | Outpatient (CLI) | payer MEDICARE, OTHER, SELFPAY ==
--- OUTSIDE RECORDS SUMMARY | 2025-05-07 10:45 | XMS_ITS ---
Author Organization [facility] Address [address] [place] [phone] Care Team Providers Care Leather Etcher Name Role Phone Raul Torres Primary Care Provider [phone] Allergies Allergen (clinical drug ingredient) Drug/Non Drug [...] Encounter Location Date Provider [facility] [address] [phone] 05/07/2025 Raul Torres Inflammatory polyarthropathy M06.4 Assessments [...] ge:79 Y S ex:Female Date:05/07/2025 Address:[address], [place], [id number] Subjective: * Chief Complaints: * 1 . Cortisone shot. * HPI: R heumatology: She returns with a flare of joint pain in multiple joints, specifically her hands, elbows, shoulders, hips, and knees. She continues on daily prednisone and Plaquenil per her wash tank tender. * ROS: D ERMATOLOGY: no R jodi. n o H bere. G ASTROENTEROLOGY: Nausea y es. n o V omiting. n o D iarrhea.? U ROLOGY: no D ifficulty urinating. n o B lood in urine. * Medical History: h yperlipidemia-followed by Dr. Arrington, Hypertension, Hypothyroidism/goiter, Kidney stones, Allergic rhinitis, ASCVD: [place] - 09/2013-followed by Dr. Arrington q 6 months, Cataracts, Hyperuricemia, Inflammatory arthritis - Dr. Cheng, polymyalgia rheumatica - Dr. Cheng, Moderna Covid vaccine x2 Oct/Nov 2020. * Surgical History: T hyroidectomy/Goiter removal 1999, Back 2001, Total Hysterectomy 1992, Tonsillectomy child, Cardiac Stent Placed-[facility]-Dr Arrington. Dr. Santo 10/19/2013, Cataract 10/2017. * Hospitalization/Major Diagno stic Procedure: k idney stones 1992, Heart Attack- [place] 09/2013, Facial Pain, Sinus Blockage- [facility] 04/24/2018, Itching, Swelling in Hands- [facility] 10/21/2018, Multiple rib and pelvic fractures; hyponatremia; rheumatoid arthritis; ASCVD- 06/30-, Dehydration, Failure to Thrive, Acute Urinary Retention- [facility] 07/14-, H : fall with multiple [...] on, J1010 Inj, methylpred acetate 1 mg, 69213 ADMINISTRATION OF INJECTION * Follow Up: p rn * Images: Billing Information: * Visit Code: 05435 Office Visit, Est Pt., Level 3. Modifiers: 25 * Procedure Codes: G2211 Complex e/m visit add on. J1010 Inj, methylpred acetate 1 mg. 10166 ADMINISTRATION OF INJECTION. * Electronic signature of Raul Torres MD on 10/16/2025 at 09:30 AM EST Sign off status: Pending * Provider: Raul Torres M.D. Date: 0 05/07/2025 Generated for Jerry panda/Kerwin/Adrianitting on: 1 12/17/2024 09:30 AM EST History and Physical Notes * HPI (History of Present Illness) Category Sub-Category Detail Notes Category Not es Rheumatology She returns wit h a flare of joint pain in multiple joints, specifically her hands, elbows, shoulders, hips, and knees. She continues on daily prednisone and Plaquenil per her wash tank tender. Examination Category Sub-Category Detail Notes Category Not es General Examination Heart: RSR Lungs: clear to auscultatio n Extremities: Chronic deformity wi th mild swelling of the joints of both hands. General Appearance: She ambulates with a walker. Affect is a bit more subdued
--- OUTSIDE RECORDS SUMMARY | 2025-05-19 05:00 | XMS_ITS ---
Author Organization [facility] Address [address] [facility] [address] [place] [id number] Care Team Providers Care Director Of Manufacturing Operations Name Role Phone Raul Torres Primary Care Provider [phone] Allergies Allergen (clinical drug ingredient) Drug/Non Drug [...] 102 Performing Lab: Notes/Report: Test performed by [facility] , [address], [place] [address] Gilmer Lowe MD, Curator CLIA: [id number] Sodium 122 135-145 mmol/L Potassium 4.2 3.5-5.3 [...] tab(s) orally daily Active Vital Signs Weight 143.8 lbs 05/19/2025 Blood pressure systolic 114 mm Hg 05/19/20 25 Blood pressure diastolic 70 mm Hg 025 Heart Rate 55 /min 05/19/2025 Height 65 in 05/19/2025 BMI 23.93 kg/m2 05/19/2025 Encounters Encounter Location Date Provider Diagnosis [facility] [address] [place] [phone] 05/19/2025 Raul Torres Hyponatremia E87.1 ; Muscle [...] ge:79 Y S ex:Female Date:05/19/2025 Address:[address] [facility], [place], [id number] Subjective: * Chief Complaints: * 1 . [...] Hypertension, Hypothyroidism/goiter, Kidney stones, Allergic rhinitis, ASCVD: [place] - 09/2013-followed by Dr. Arrington q 6 months, Cataracts, Hyperuricemia, Inflammatory arthritis - Dr. Cheng, polymyalgia rheumatica - Dr. Cheng, Moderna Covid vaccine x2 Oct/Nov 2020. * Surgical History: T hyroidectomy/Goiter removal 1999, Back 2001, Total Hysterectomy 1992, Tonsillectomy child, Cardiac Stent Placed-[facility]-Dr Arrington. Dr. Santo 10/19/2013, Cataract 10/2017. * Hospitalization/Major Diagno stic Procedure: k idney stones 1992, Heart Attack- [place] 09/2013, Facial Pain, Sinus Blockage- [facility] 04/24/2018, Itching, Swelling in Hands- [facility] 10/21/2018, Multiple rib and pelvic fractures; hyponatremia; rheumatoid arthritis; ASCVD- 06/30-, Dehydration, Failure to Thrive, Acute Urinary Retention- [facility] 07/14-, [facility] : fall with multiple FX [...] uscle weakness - M62.81 3 . B [place] 23.0-23.9, adult - Z68.23 Plan: * Treatment: [...] * Images: Billing Information: * Visit Code: 27351 Office Visit, Est Pt., Level 3. * Procedure Codes: G2211 Complex e/m visit add on. 1036F TOBACCO NON-USER. G8420 BMI<30 AND >=22 CALC & DOCU. G8783 BP SCR PRFRM RCMDD DEFIND SCR INTVL. G8752 MOST RECENT SYSTOLIC BP < 140MM HG. G8754 MOST RECENT DIASTOLIC BP < 90MM HG. * Electronic signature of Raul Torres MD on 10/16/2025 at 09:29 AM EST Sign off status: Pending * Provider: Raul Torres M.D. Date: 0 05/19/2025 Generated for Jerry panda/Kerwin/Arthur on: 1 12/17/2024 09:29 AM EST History and Physical Notes * [...]
--- OUTSIDE RECORDS SUMMARY | 2025-05-26 09:45 | XMS_ITS ---
Author Organization [facility] Address [address] [place] [phone] Care Team Providers Care System Software Developer Name Role Phone Raul Torres Primary Care [...] Reason For Referral Reason Dr. Lee at [facility] for hyponatremia/ possible adrenal insufficiency Diagnosis 1 Hyponatremia (E87.1) Referral Organization Jared Referring Provider First Name Raul Lopez Referring Provider Last Name Melissa Referring Provider [facility] ctice Referred Provider Endocrinology, . Referred Provider Specialty Endocrinolog y General Notes Keira Burger 2024 10:04:16 AM > faxed to [facility] Endo Referral Priority Routine Reason memory loss/ confusi on Diagnosis 1 Memory loss (R41.3) Referral Organization Jared Referring Provider First Name Raul Lopez Referring Provider Last Name Melissa Referring Provider [facility] ctice Referred Provider Radha Ignacio Referred Provider Specialty Neurology General Notes Keira Burger 2024 09:55:39 AM > faxed to [facility] Neurology, Keira Burger 05/29/2025 10:50:10 AM [...] W/U Status Risk Notes Problem Memory loss (39111417) Memory loss (R41.3) Active confirmed Vital Signs Weight 146.2 lbs 05/26/2025 Blood pressure systolic 110 mm Hg 05/26/20 25 Blood pressure diastolic 76 mm Hg 025 Heart Rate 72 /min 05/26/2025 Height 65 in 05/26/2025 BMI 24.33 kg/m2 05/26/2025 Encounters Encounter Location Date Provider Diagnosis [facility] [address] [place] [id number] 05/26/2025 Raul Torres Hyponatremia E87.1 ; Memory loss R41.3 and BMI 24.0-24.9, adult Z68.24 Assessments Encounter Date Diagnosis (ICD Code) Assessment Notes Treatment Notes Treatment Clinical Notes Section Notes 05/26/2025 Hyponatremia (ICD-10 - E87.1) 05/26/2025 Memory loss (ICD-10 - R41.3) 05/26/2025 BMI 24.0-24.9, adult (ICD-10 - Z68.24) Plan Of Treatment Referrals Referral Date Details 05/26/2025 05/26/2025, Dr. Sophie pineda at [facility] for hyponatremia/ possible adrenal insufficiency, . Endocrinology 05/26/2025 05/26/2025, memory l oss/ confusion, Radha Ignacio Next Appt Details Follow Up: after consultatio n, Reason: Progress Notes * Andry HUYNHDOB: 7 (79 yo F)Acc No.[id number]:05/26/2025 Progress Notes Patient: Andry PANIAGUA Provider: Raul Torres M.D. :1945 A ge:79 Y S ex:Female Date:05/26/2025 Address:[address] [place] [address], [place], [id number] Subjective: * Chief Complaints: * 1 . [...] Hypertension, Hypothyroidism/goiter, Kidney stones, Allergic rhinitis, ASCVD: [place] - 09/2013-followed by Dr. Arrington q 6 [...] Procedure: k idney stones 1992, Heart Attack- [place] 09/2013, Facial Pain, Sinus Blockage- [facility] ER 04/24/2018, Itching, Swelling in Hands- [facility] ER 10/21/2018, Multiple rib and pelvic fractures; hyponatremia; rheumatoid arthritis; ASCVD- 06/30-, Dehydration, Failure to Thrive, Acute Urinary Retention- [facility] 07/14-, [facility] : fall with multiple FX ribs [...] M yvette loss - R41.3 ?3. B [place] 24.0-24.9, adult - Z68.24 Plan: * Treatment: [...] * Images: Billing Information: * Visit Code: 57782 Office Visit, Est Pt., Level 3. * [...] 05/26/2025 Generated for Jerry panda/Kerwin/Sonnysmitting on: 1 12/17/2024 09:29 AM EST History [...] Torres Endocrinology, . Dr. Edy matos at [facility] for hyponatremia/ possible adrenal insufficiency 05/26/2025 Raul Torres Maria memory los s/ confusion
--- OUTSIDE RECORDS SUMMARY | 2025-05-28 03:20 | XMS_ITS ---
Author Organization [facility] Address 1210 [facility] [address] [place], [place] [phone] Care Team Providers Care Fiber Machine Tender Name Role Phone Raul Torres Primary Care Provider [phone] Results Component Value Reference Range Notes Urinalysis [...] Status Risk Notes Problem Altered mental status (198970863) Altered mental state (R41.82) Active confirmed Encounters Encounter Location Date Provider Diagnosis [facility] [address] [place] [phone] 05/28/2025 Raul Torres Altered mental state R41.82 [...] Date:05/28/2025 Address:[address], [id number] Subjective: * Chief Complaints: * 1 . [...] Information: * Visit Code: * Procedure Codes: 97726 Urinalysis, no micro. * Electronic signature of Raul Torres MD on 10/16/2025 at 09:29 AM EST Sign off status: Pending * Provider: Raul Torres M.D. Date: 0 05/28/2025 Generated for Jerry panda/Kerwin/Mikeransmitting on: 1 12/17/2024 09:29 AM EST
--- OUTSIDE RECORDS SUMMARY | 2025-06-16 11:30 | XMS_ITS ---
Author Organization [facility] [place] Address [address] [facility] [address] [place] [phone] Care Team Providers Care Chef German Name Role Phone Raul Torres Primary Care Provider [phone] Allergies Allergen (clinical drug ingredient) Drug/Non Drug [...] 06/16/2025 Encounters Encounter Location Date Provider Diagnosis [facility] [address] [facility] [address] [place] [address], [place] [phone] 06/16/2025 Raul Torres Rheumatoid arthritis M06.9 ; [...] Date:06/16/2025 Address:[address], [place], [phone] Subjective: * Chief Complaints: * 1 . [...] does not wish to follow-up with Dr. eLe. N eurology: Her appointment with Dr. Ignacio [...] 1992, Tonsillectomy child, Cardiac Stent Placed-[facility]-Dr Arrington. Dr. Santo 10/19/2013, Cataract 10/2017. * Hospitalization/Major Diagno stic Procedure: k idney stones 1992, Heart Attack- [place] 09/2013, Facial Pain, Sinus Blockage- [facility] ER 04/24/2018, Itching, Swelling in Hands- [facility] 10/21/2018, Multiple rib and pelvic fractures; hyponatremia; rheumatoid arthritis; ASCVD- 06/30-, Dehydration, Failure to Thrive, Acute Urinary Retention- [facility] 07/14-, H : fall with multiple [...] on, J1010 Inj, methylpred acetate 1 mg, 90362 ADMINISTRATION OF INJECTION * Follow Up: 2 Months * Images: Billing Information: * Visit Code: 54498 Office Visit, Est Pt., Level 3. Modifiers: 25 * Procedure Codes: G2211 Complex e/m visit add on. J1010 Inj, methylpred acetate 1 mg. 47033 ADMINISTRATION OF INJECTION. * Electronic signature of Raul Torres MD on 10/16/2025 at 09:29 AM EST Sign off status: Pending * Provider: Raul Torres M.D. Date: 0 06/16/2025 Generated for Jerry panda/Kerwin/Adrianitting on: 12/17/2024 09:29 AM EST History and Physical Notes * Examination Category Sub-Category Detail Notes Category Not es General Examination Heart: RSR Lungs: clear to auscultatio n Extremities: 1+ pedal and ankle e stephanie bilaterally. General Appearance: NAD
--- OUTSIDE RECORDS SUMMARY | 2025-07-15 06:25 | XMS_ITS ---
Author Organization [facility] Address [address] [place] [id number] Care Team Providers Care Head Of Acquisitions Name Role Phone Raul Torres Primary Care [...] Administered Encounters Encounter Location Date Provider Diagnosis [facility] [address] [facility] [address] [place] [id number] 07/15/2025 Raul Torres Encounter for immunization Z23 Assessments Encounter Date Diagnosis (ICD Code) Assessment Notes Treatment Notes Treatment Clinical Notes Section Notes 07/15/2025 Encounter for immunization (ICD-10 - Z23) Plan Of Treatment No Information Progress Notes * LINO AndryDOB: 7 (79 yo F)Acc No.[id number]:07/15/2025 Patient: Andry PANIAGUA Provider: Raul Torres M.D. :1945 A ge:79 Y S ex:Female Date:07/15/2025 Address:[address] [place] [address], [place], [id number] Subjective: * Chief Complaints: * 1 [...] of Raul Torres MD on 10/16/2025 at 09:27 AM EST Sign off status: Pending * Provider: Raul Torres M.D. Date: 0 07/15/2025 Generated for Jerry panda/Kerwin/Arthur on: 1 12/17/2024 09:27 AM EST
--- OUTSIDE RECORDS SUMMARY | 2025-07-21 05:45 | XMS_ITS ---
Author Organization Jared Address [address] [facility] [address] [place] [phone] Care Team Providers Care Computer Graphic Artist Name Role Phone Raul Torres Primary Care Provider [phone] REASON FOR VISIT foot still swelling Encounters Encounter Location Date Provider Diagnosis [facility] [address] [place] [phone] 07/21/2025 Raul Torres Plan Of Treatment No Information Progress Notes * Andry HUYNHDOB: 7 (79 yo F)Acc No.[id number]:07/21/2025 Progress Notes Patient: Andry PANIAGUA Provider: Raul Torres M.D. :1945 A ge:79 Y S ex:Female Date:07/21/2025 Address:[address], [place], [id number] Subjective: * Chief Complaints: * 1 . Foot still swelling. * Medical History: Objective: * Vitals: Assessment: Plan: * Treatment: * Images: Billing Information: * Visit Code: * Procedure Codes: * Electronic signature of Raul Torres MD on 10/16/2025 at 09:28 AM EST Sign off status: Pending * Provider: Raul Torres M.D. Date: 0 07/21/2025 Generated for Jerry panda/Kerwin/Arthur on: 12/17/2024 09:28 AM EST
--- OUTSIDE RECORDS SUMMARY | 2025-08-04 09:30 | XMS_ITS ---
Author Organization [facility] Address [address] [place] [id number] Care Team Providers Care Wire Dropper Name Role Phone Raul Torres Primary Care Provider [phone] REASON FOR VISIT H F/U Discharge Encounters Encounter Location Date Provider Diagnosis [facility] [address] [place] [id number] 08/04/2025 Raul Torres Plan Of Treatment No Information Progress Notes * Andry HUYNHDOB: 7 (79 yo F)Acc No.[id number]:08/04/2025 Patient: Andry PANIAGUA Provider: Raul Torres M.D. :1945 A ge:79 Y S ex:Female Date:08/04/2025 Address:[address] [place], [place], [id number] Subjective: * Chief Complaints: * 1 . H F/U Discharge. * Medical History: Objective: * Vitals: Assessment: Plan: * Treatment: * Images: Billing Information: * Visit Code: * Procedure Codes: * Electronic signature of Raul Torres MD on 10/16/2025 at 09:28 AM EST Sign off status: Pending * Provider: Raul Torres M.D. Date: Generated for Jerry panda/Kerwin/Arthur on: 12/17/2024 09:28 AM EST
--- OUTSIDE RECORDS SUMMARY | 2025-09-03 05:45 | XMS_ITS ---
[facility] Address [address] [place] [phone] Care Team Providers Care Acidizer Name Role Phone Raul Torres Primary Care [...] nausea Drug Allergy Active REASON FOR VISIT Shot for arthritis Medications Medication SIG (Take, Route, Frequency, Duration) Notes Start Date End Date Status Cyclobenzaprine HCl 5 MG 1 tab 3 times a day As needed Not-Taking Potassium Chloride Cathy ER 10 MEQ 1 tablet with food Orally Twice a day Active Tamsulosin HCl 0.4 MG 1 capsule Orally O nce a day; Duration: 90 days Active Chlorthalidone 12.5 MG 1 tablet in the morning with food Orally daily; Duration: 90 days Not-Taking Levothyroxine Sodium 112 MCG 1 tablet in the morning on an empty stomach Orally Once a day; Duration: 90 days Active Pravastatin Sodium 40 MG 1 tablet Orally Once a day Active traMADol HCl 50 MG 1 tab(s) Orally q6h prn 08/01/2024 Active Lidocaine 5 % 1 patch remove after 12 hours Externally Once a day 02/17/2025 Not-Taking Carvedilol 6.25 MG 1 tab(s) Orally 2 times a day Active Aspirin Adult Low Dose 81 MG 1 tab(s) orally once a day Active Acetaminophen 500 MG 1 capsule as needed Orally every 6 hrs prn Active Melatonin 3 MG 1 tablet in the evening at HS Active predniSONE 5 MG 1 tab orally once a day Active Entresto 24-26 MG 1 tablet Orally Twic e a day Active Spironolactone 25 MG 1 tablet Orally Onc e a day Active Plaquenil 200 MG 1 tab(s) orally daily Active Problems Problem Type SNOMED Code ICD Code Onset Dates Problem Status W/U Status Risk Notes Problem Coronary arteriosclerosis (93634641) ASCVD (arteriosclerotic cardiovascular disease) (I25.10) Active confirmed Vital Signs Weight 000 lbs 09/03/2025 Blood pressure systolic 120 mm Hg 09/03/20 25 Blood pressure diastolic 70 mm Hg 025 Heart Rate 60 /min 09/03/2025 Height 65 in 09/03/2025 Encounters Encounter Location Date Provider [facility] [address] [facility] [address] [place], [place] [address], [place] [phone] 09/03/2025 R John Torres Rheumatoid arthritis , involving unspecified site, unspecified whether rheumatoid factor present M06.9 and ASCVD (arteriosclerotic cardiovascular disease) I25.10 Assessments Encounter Date Diagnosis (ICD Code) Assessment Notes Treatment Notes Treatment Clinical Notes Section Notes 09/03/2025 Rheumatoid arthritis, involving unspecified site, unspecified whether rheumatoid factor present (ICD-10 - M06.9) 09/03/2025 ASCVD (arteriosclerotic cardiovascular disease) (ICD-10 - I25.10) Continue f/u with cardiology Plan Of Treatment Medication Medication Name Sig Start Date Stop Date Notes Potassium Chloride Cathy ER 10 MEQ 1 tabl et with food Orally Twice a day Pravastatin Sodium 40 MG 1 tablet Orally Once a day Carvedilol 6.25 MG 1 tab(s) Orally 2 ti mes a day Aspirin Adult Low Dose 81 MG 1 tab(s) or ally once a day predniSONE 5 MG 1 tab orally once a day Entresto 24-26 MG 1 tablet Orally Twic e a day Spironolactone 25 MG 1 tablet Orally Onc e a day Plaquenil 200 MG 1 tab(s) orally daily Treatment Notes Assessment Notes ASCVD (arteriosclerotic cardiovascular d isease) Continue f/u with cardiology Next Appt Details Follow Up: 3 Months, Reason: Medications Administered Medication Instructions Date of Administration Dosage Notes Depo- Medrol 40 mg/ml 09/03/2025 1 mL Progress Notes * Andry HUYNHDOB: [birth year] (79 yo F)Acc No.[id number]:09/03/2025 Progress Notes Patient: Andry PANIAGUA Provider: Raul Torres M.D. :1945 A ge:79 Y S ex:Female Date:09/03/2025 Address:[address] [facility] [place], [id number] Subjective: * Chief Complaints: * 1 . Shot for arthritis. * HPI: R heumatology: She presents with complaints of worsening pain in both shoulders and both hands with swelling of the joints of her hand. She is requesting a steroid injection. She continues on oral prednisone. 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 C ardiology: She was hospitalized about a month ago with a UTI and NSTEMI. She was discharged to [facility] for rehab and just returned home 4 days ago. She has not yet started home health therapy. During her admission she had changes in her medication which are reconciled on her med list today. Specifically she is not taking Entresto, lower dose of carvedilol, and spironolactone. She has lost some weight. Has been is concerned she is not eating well. She was seen follinowed by cardiology yesterday and is scheduled to have a chemical stress test. Labs were drawn yesterday but she does not know the results. She continues to have issues with hyponatremia. * ROS: D ERMATOLOGY: no R jodi. n o H bere. G ASTROENTEROLOGY: no N ausea. n o V omiting. n o D iarrhea.? U ROLOGY: no D ifficulty urinating. n o B lood in urine. * Medical History: h yperlipidemia-followed by Dr. Arrington, Hypertension, Hypothyroidism/goiter, Kidney stones, Allergic rhinitis, ASCVD: [place] - 09/2013-followed by Dr. Arrington q 6 months, Cataracts, Hyperuricemia, Inflammatory arthritis - Dr. Cheng, polymyalgia rheumatica - Dr. Cheng, Moderna Covid vaccine x2 Nov 2020. * Surgical History: T hyroidectomy/Goiter removal 1999, Back 2001, Total Hysterectomy 1992, Tonsillectomy child, Cardiac Stent Placed-[facility]-Dr Arrington. Dr. Santo 10/19/2013, Cataract 10/2017. * Hospitalization/Major Diagno stic Procedure: k idney stones 1992, Heart Attack- [place] 09/2013, Facial Pain, Sinus Blockage- [facility] ER 04/24/2018, Itching, Swelling in Hands- [facility] ER 10/21/2018, Multiple rib and pelvic fractures; hyponatremia; rheumatoid arthritis; ASCVD- 06/30-, Dehydration, Failure to Thrive, Acute Urinary Retention- [facility] 07/14-, [facility] : fall with multiple FX [...] ,determination:. Alcohol: No. * Medications: T aking Entresto 24-26 MG Tablet 1 tablet Orally Twice a day , Taking Spironolactone 25 MG Tablet 1 tablet Orally Once a day , Taking Plaquenil 200 MG Tablet 1 tab(s) orally daily , Taking predniSONE 5 MG Tablet 1 tab orally once a day , Taking Acetaminophen 500 MG Capsule 1 capsule as needed Orally every 6 hrs prn , Taking Carvedilol 6.25 MG Tablet 1 tab(s) Orally 2 times a day , Taking Aspirin Adult Low Dose 81 MG Tablet Delayed Release 1 tab(s) orally once a day , Taking Melatonin 3 MG Tablet 1 tablet in the evening at HS , Taking traMADol HCl 50 MG Tablet 1 tab(s) Orally q6h prn , Taking Levothyroxine Sodium 112 MCG Tablet 1 tablet in the morning on an empty stomach Orally Once a day , Taking Pravastatin Sodium 40 MG Tablet 1 tablet Orally Once a day , Taking Potassium Chloride Cathy ER 10 MEQ Tablet Extended Release 1 tablet with food Orally Twice a day , Taking Tamsulosin HCl 0.4 MG Capsule 1 capsule Orally Once a day , Not-Taking Lidocaine 5 % Patch 1 patch remove after 12 hours Externally Once a day , Not-Taking Cyclobenzaprine HCl 5 MG Tablet 1 tab 3 times a day As needed, Not-Taking Chlorthalidone 12.5 MG Tablet 1 tablet in [...] Percocet, Lortab. Objective: * Vitals: W t: 000, Temp: 97.4, BP: 120/70, HR: 60, Nurse: pe, Ht: 65. * Examination: G eneral Examination: S he comes in by wheelchair accompanied by her and sister. She is alert and oriented. Color is slightly pale. She has marked decreased range of motion in her shoulders due to pain. There is mild swelling of multiple joints of her hands. Lungs are clear to auscultation. Heart is regular. Lower extremities show trace ankle edema. Assessment: * Assessment: 1. R heumatoid arthritis, involving unspecified site, unspecified whether rheumatoid factor present - M06.9 (Primary) 2 . A SCVD (arteriosclerotic cardiovascular disease) - I25.10 Plan: * Treatment: 2. A SCVD (arteriosclerotic cardiovascular disease) Continue Entresto Tablet, 24-26 MG, 1 tablet, Orally, Twice a day; C ontinue Spironolactone Tablet, 25 MG, 1 tablet, Orally, Once a day; C ontinue Carvedilol Tablet, 6.25 MG, 1 tab(s), Orally, 2 times a day; C ontinue Aspirin Adult Low Dose Tablet Delayed Release, 81 MG, 1 tab(s), orally, once a day; C ontinue Pravastatin Sodium Tablet, 40 MG, 1 tablet, Orally, Once a day; C ontinue Potassium Chloride Cathy ER Tablet Extended Release, 10 MEQ, 1 tablet with food, Orally, Twice a day. Notes: Continue f/u with cardiology * Therapeutic Injections: Depo- Medrol 40 mg/ml : 1 mL (Route: Intramuscular) given by SALOMON Quigley on right gluteus (Rheumatoid arthritis, involving unspecified site, unspecified whether rheumatoid factor present) * Procedure Codes: G 2211 Complex e/m visit add on, J1010 Inj, methylpred acetate 1 mg, 00942 ADMINISTRATION OF INJECTION * Follow Up: 3 Months * Images: Billing Information: * Visit Code: 63861 Office Visit, Est Pt., Level 3. Modifiers: 25 * Procedure Codes: G2211 Complex e/m visit add on. J1010 Inj, methylpred acetate 1 mg. 23016 ADMINISTRATION OF INJECTION. * Electronic signature of Raul Torres MD on 10/16/2025 at 09:29 AM EST Sign off status: Pending * Provider: Raul Torres M.D. Date: 11/03/2024 Generated for Jerry panda/Kerwin/Adrianitting on: 12/17/2024 09:29 AM EST History and Physical Notes * HPI (History of Present Illness) Category Sub-Category Detail Notes Category Not es Cardiology She was seen fo llinowed by cardiology yesterday and is scheduled to have a chemical stress test. Labs were drawn yesterday but she does not know the results. She continues to have issues with hyponatremia. Examination Category Sub-Category Detail Notes Category Not es General Examination She come s in by wheelchair accompanied by her and sister. She is alert and oriented. Color is slightly pale. She has marked decreased range of motion in her shoulders due to pain. There is mild swelling of multiple joints of her hands. Lungs are clear to auscultation. Heart is regular. Lower extremities show trace ankle edema.
--- OUTSIDE RECORDS SUMMARY | 2025-10-06 06:00 | XMS_ITS ---
Author Organization [facility] Address [address] [place] [id number] Care Team Providers Care Veterans Service Officer Name Role Phone Raul Torres Primary Care Provider REASON FOR VISIT F/U from [facility] Encounters Encounter Location Date Provider Diagnosis [facility] [address] [facility] [address] [place] [id number] 10/06/2025 Raul Torres Assessments Encounter Date Diagnosis (ICD Code) Assessment Notes Treatment Notes Treatment Clinical Notes Section Notes 10/06/2025 Other Discharge summary with available lab/diagnostic imaging results obtained and reviewed. Discharge medication list reconciled. Appropriate counseling provided. Moderate Complexity Plan Of Treatment Treatment Notes Assessment Notes Other Discharge summary wi th available lab/diagnostic imaging results obtained and reviewed. Discharge medication list reconciled. Appropriate counseling provided. Moderate Complexity Progress Notes * Andry HUYNHDOB: [birth year] (79 yo F)Acc No.[id number]:10/06/2025 Patient: Andry PANIAGUA Provider: Raul Torres M.D. :1945 A ge:79 Y S ex:Female Date:10/06/2025 Address:[address], [place] Subjective: * Chief Complaints: * 1 . F/U from [facility]. * HPI: H PI: Patient is here today for a Transition of Care Visit. Discharge from the following Facility: patient was admitted to [facility] on 09/21/2025 after several days of diarrhea and weakness ,Discharge date: 09/22/2025 ,Date of phone contact following discharge: 09/24/2025. * Medical History: Objective: * Vitals: Assessment: Plan: * Treatment: * Procedure Codes: 9 9495 TRANS CARE MGMT 14 DAY DISCH, 1111F DSCHR MED/CURENT MED MERGE, G2211 Complex e/m visit add on * Images: Billing Information: * Visit Code: * Procedure Codes: 26973 TRANS CARE MGMT 14 DAY DISCH. 1111F DSCHR MED/CURENT MED MERGE. G2211 Complex e/m visit add on. * Electronic signature of Raul Torres MD on 10/16/2025 at 09:29 AM EST Sign off status: Pending * Provider: Raul Torres M.D. Date: 12/07/2024 Generated for Jerry panda/Kerwin/Arthur on: 12/17/2024 09:29 AM EST History and Physical Notes * HPI (History of Present Illness) Category Sub-Category Detail Notes Category Not es HPI Patient is here today for a Hernandez sition of Care Visit. Discharge from the following Facility: patient was admitted to [facility] on 09/21/2025 after several days of diarrhea and weakness ,Discharge date: 09/22/2025 ,Date of phone contact following discharge: 09/24/2025
--- OUTSIDE RECORDS SUMMARY | 2025-10-16 09:28 | XMS_ITS | Encounter Summary ---
Author Organization Healthcare Address [address] [place] [address] Care Team Providers Care Urology Physician Assistant Name Role Phone Amparo Arrington MD Primary Care Provider [phone] Encounter Details Date Type Department Care Team (Late st Contact Info) Description 08/24/2025 Orders Only [facility] [address] [place] [address] Anita Luu Hyponatremia (Primary Dx); [...] place to sleep or slept in a assisted (including now)? No 07/01/2024 Utilities Answer Date [...] Description 10/23/2025 12:20 PM EST Office Visit [facility] [address] [place] [address] Vicente Rodrigez MD [address] [place] [phone] Scheduled Orders Name Type Priority Associated [...] documented as of this encounter Care Teams Urology Physician Assistant Relationship Specialty Start Date End Date Amparo Arrington MD [place] [id number] PCP - General 03/04/21 documented as of this encounter
--- OUTSIDE RECORDS SUMMARY | 2025-10-16 09:28 | XMS_ITS | Clinical Summary ---
Author Organization Healthcare Address [address] [place] [address] Care Team Providers Care Research Librarian Name Role Phone Amparo Arrington MD Primary Care Provider [phone] Allergies Active Allergy Reactions Criticality Noted Date [...] PMF's reviewed and stable PT/OT as tolerated [facility] Acquired hypothyroidism 06/30/2024 Overview (06/30/2024): Continue home levothyroxine Complicates all aspects of care Coronary artery disease invo lving algaaciq coronary artery of algaaciq heart without angina pectoris 06/30/2024 Overview (06/30/2024): [...] Department Care Team Description 08/24/2025 Orders Only [facility] [address] [place] [...] EST Office Visit [facility] [address] [place] [address] Vicente Rodrigez MD [address] [place] [phone] Health Maintenance Due Date Last Done Comments [facility]-Bone Density Scan 1945 [facility]-Depression Screening 1945 [facility]-Medicare Annual Wellness (AWV) 1945 [facility]-Infant/Child/Adol SDOH Screenings 01/01/1946 [facility]- SDOH Screenings 1964 [facility]-Adult SDOH Screenings 1964 [facility]-Zoster Vaccines (1 of 2) 1965 [facility]-RSV Vaccine: 60+ Years or (1 - 1-dose 75+ series) 2021 [id number] Vaccine (2024- season) 2025 08/19/2024, 08/16/2023, 05/29/2023, [...] ORDERABLES Final Re sult [facility] [address] [place] [address] from Last 3 Months or Most Recently Relevant to Health Maintenance Insurance MEDICARE [facility] [place] [id number] Advance Directives * Full Code (Latest Code Status on File) Date Activated Date Inactivated Comments 07/04/2024 1:04 PM * Full Code Date Activated Date Inactivated Comments 06/30/2024 8:06 AM 07/04/2024 1:04 PM Question Answer Comments Patient has decision-making capacity? Yes Care Teams Research Librarian Relationship Specialty Start Date End Date Amparo Arrington MD [place] [phone] (Fax) [facility] - General 03/04/21
--- OUTSIDE RECORDS SUMMARY | 2025-10-16 09:28 | XMS_ITS | Clinical Summary ---
Author Organization [facility] Address [address] [place] [address] Care Team Providers Care Airplane Pilot Supervisor Name Role Phone Wyatt Torres MD Primary Care Provider [phone] Source Comments This information has been disclosed [...] therelease of HIV test results or diagnoses. [id number] Allergies Active Allergy Reactions Criticality Noted [...] A [employer] Care Teams Airplane Pilot Supervisor Relationship Specialty Start Date End Date Wyatt Torres MD [address] [place] [address] PCP - General Family Medicine 04/09/23
--- OUTSIDE RECORDS SUMMARY | 2025-10-16 09:29 | XMS_ITS | Clinical Summary ---
Author Organization [facility] Address [address] [place] [address] Care Team Providers Care Wire Spring Relay Adjuster Name Role Phone Wyatt Torres MD [...] - 200 mg/dL 01/15/2025 12:23 AM EDT [facility] Triglycerides 89 0 - 150 mg/dL 01/15/2025 12:23 AM EDT [facility] HDL Cholesterol 99(H) 40 - 60 mg/dL 01/15/2025 12:23 AM EDT [facility] LDL Cholesterol 75 0 - 100 mg/dL 01/15/2025 12:23 AM EDT [facility] VLDL Cholesterol 16 5 - 40 mg/dL 01/15/2025 12:23 AM EDT [facility] LDL/HDL Ratio 0.74 01/15/2025 12:23 AM EDT [facility] Blood Venipuncture / Unknown 01/14/2025 10:25 AM EDT 01/14/2025 10:26 AM EDT Narrative [facility] - 01/15/2025 12:23 AM EDT Cholesterol [...] MD LAB BLOOD ORDERABLES Final Resul t [facility]
[address] [place] [address], from Last 3 Months or Most Recently Relevant to Health Maintenance Insurance MEDICARE A [employer] [facility] [place] [id number] Care Teams Wire Spring Relay Adjuster Relationship Specialty Start Date End Date Wyatt oTrres MD [address] [facility] [address] [facility] [address] [place] [address] PCP - General Family Medicine 12/26/24
--- OUTSIDE RECORDS SUMMARY | 2025-10-16 09:29 | XMS_ITS | Encounter Summary ---
Author Organization [facility] Address [address] [place] [address] Care Team Providers Care Executive Vice President Name Role Phone Wyatt Torres MD Primary Care Provider Encounter Details Date Type Department Care Team (Late st Contact Info) Description 01/15/2025 Results Follow-Up [facility] [address] [facility] [address] [phone] Jennyfer Porras APRN [address] [facility] [address] [place] [address] Social History Tobacco Use Types Packs/Day Years [...] on filedocumented in this encounter Care Teams Executive Vice President Relationship Specialty Start Date End Date Wyatt Torres MD [address] [facility] [address] [facility] [address] PCP - General Family Medicine 12/26/24 documented as of this encounter
--- OUTSIDE RECORDS SUMMARY | 2025-10-16 09:29 | XMS_ITS | Data Portability ---
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 Lab rf (rheumatoid factor), serum 2023 [facility], [address] [place] [address], [id number], 11:20:43 ccp (cyclic citrullinat ed peptide) iga+igg, serum 2023 024 [facility], [address] [place] [address], [id number], 4 16:52:40 ESR (erythrocyt e sedimentati on rate), blood 2023 024 [facility], [address] [place] [address], [id number], 4 11:12:24 C reactive protein, QN, serum or plasma 2023 024 [facility], [address] [place] [address], [id number], 4 11:20:45 Mycobacteri um tuberculosi s stimulated gamma interferon, qual, blood 2023 024 [facility], [address] [place] [address], [id number], 4 02:43:42 hepatitis C Ab, serum 2023 024 [facility], [address] [place] [address], [id number], 4 11:39:06 ESR (erythrocyt e sedimentati on rate), blood 2023 024 [facility], [address] [place] [address], [id number], 4 11:13:45 C reactive protein, QN, serum or plasma 2023 024 [facility], [address] [place] [address], [id number], 4 11:26:25 Referral None recorded. Procedures None recorded. Surgeries None recorded. Imaging None recorded. Medication Orders prednisone 5 mg tablet 2024 025 [facility] [address] [place], [address], 5 10:42:41 Cymbalta 30 mg capsule,del ayed release 2023 024 [facility] [address] [place], [address], 4 10:15:00 Depo-Medrol 80 mg/mL suspension for injection 2023 024 [facility] [address] [place], [address], 4 10:45:28 Patient TargetsNo targets recorded. Patient InstructionsNo instructions recorded. Reason for Referral None Reported. Results Created Date Observation Date Name Description Value Unit Range Abnormal Flag Note LastModifiedBy Organization Detail LastModifiedTime 10/25/1910/25/2023 ESR, AUTOM ATED ESR, automated 7 mm 0-29 normal Not Available [facility] [address] [place] [address], [id number], 10/25/2023 11:13:45 10/25/19 24 10/25/2023 C REACT KASANDRA PROTE IN C reactive protein 0.17 mg/dL 0.00-0 .49 normal Not Available [facility] [address] [place] [address], [id number], 10/25/2023 11:26:25 05/07/20 24 05/07/2024 ESR, AUTOM ATED ESR, automated 12 mm 0-29 normal Not Available [facility] [address] [place] [address], [id number], 05/07/2024 11:12:24 05/07/20 24 05/07/2024 RF SCREE N, QUANT . rf screen, quant. <10.0 [IU]/ mL 0.0-13 .9 normal Not Available [facility] [address] [place] [address], [address], 05/07/2024 11:20:43 05/07/20 24 05/07/2024 C REACT KASANDRA PROTE IN C reactive protein 0.17 mg/dL 0.00-0 .49 normal Not Available [facility] [address] [place] [address], [address], 05/07/2024 11:20:45 05/07/20 24 05/07/2024 HEPAT ITIS C AB SCR, REFLE X HCVQT hcab scr, reflex viral RNA qt NONREA CTIVE nonrea ctive normal Antib odies to HCV were not detec beth; does not exclu de the possi bilit y of expos ure to HCV. Not Available [facility] [address] [place] [address], [address], 05/07/2024 11:39:06 05/07/20 24 05/09/2024 ANTI- CCP anti-ccp <16 units normal Refer ence Range Negat kasandra: <20 Weak Posit kasandra: 20-39 Moder ate Posit kasandra: 40-59 Stron g Posit kasandra: >59 Not Available [facility] [address] [place] [address], [address], 05/09/2024 16:52:40 05/07/20 24 05/10/2024 QUANT IFERO N TB GOLD qtb gold NEGATI VE negati ve normal Negat kasandra test resul t. M. tuber culos is compl ex infec tion unlik erin. Not Available [facility] [place], [address], 05/15/2024 15:49:02 05/07/20 24 05/10/2024 QUANT IFERO N TB GOLD nil 0.01 IU/mL normal Not Available [facility] [place], [address], 05/15/2024 15:49:02 05/07/20 24 05/10/2024 QUANT IFERO N TB GOLD mitogen nil >10.00 IU/mL normal Not Available [facility] [place], [address], 05/15/2024 15:49:02 05/07/20 24 05/10/2024 QUANT IFERO N TB GOLD TB1 nil 0.00 IU/mL normal Not Available [facility] [address] [place], [address], 05/15/2024 15:49:02 05/07/20 24 05/10/2024 QUANT IFERO [...] refer to https ://ed ucati on.qu blayne [employer]. [employer]/f aq/FA Q204 (This link is being provi ded for infor uday cormier/ toi tamayo l purpo ses only. ) Not Available [facility] [address] [place], [address], 05/15/2024 15:49:02 Result Notes None recorded. Problems Name Problem SNOMED Code Status Onset Date Resolution Date Notes Provider Name and Address Organization Details Recorded Time Hyperuricemia 99429067 Active 2017 ARLENE MEI, EGG TRAYER [address] [place], [address] [place] [address] 8 15:44:58 Problem Notes None recorded. Procedures Surgical History Date Name Laterality Status Provider Name and Address Organization Details Recorded Time Remove tonsils and adenoids completed [facility] 12/19/2018 09:47:28 Removal of thyroid completed [facility] 12/19/2018 09:47:47 Imaging Results None recorded. Procedure Notes None recorded. Medical Equipment None Reported. Allergies Allergen ID Allergen Name Allergen Category Reaction Reaction Severity Criticality Documentation Date Start Date Code Code System Note Provider Name and Address Organization Details Recorded Time 635360 Substance with sulfonami de structure and antibacte rial mechanism of action (substanc e) medicatio n Not available Not available Not available 09/15/20162014 10175 8003 SNOMED Comme nt: Creat ed By: Rayna Gonzalez; Creat ed Date: 2014 10:04 :26 AM; Not Available [facility] 6 09:13:41 215545 codeine medicatio n Not available Not available Not available 09/15/20162014 2670 RxNorm Comme nt: Creat ed By: Rayna Gonzalez; Creat ed Date: 2014 10:03 :51 AM; Not Available [facility] 6 09:37:20 458005 Product containin g penicilli n (product) medicatio n Not available Not available Not available 09/29/20252022 28572 8001 SNOMED unrec ogniz ed react ion (text : Nause a And Vomit ing, code: 03707 000) (from exter nal sourc e) Not Available cris - [employer] - prod 5 13:51:27 887247 amoxicill in medicatio n Not available Not available Not available 09/29/2025 723 RxNorm Not Available cris - External Data Service - prod 13:53:02 325996 amoxicill in / clavulana te medicatio n nausea Not available Not available 09/29/2025 92464 RxNorm Not Available cris [employer] Data [employer] - prod 5 13:53:02 697219 cefaclor medicatio n nausea Not available Not available 09/29/2025 2176 RxNorm Not Available cris - [employer] Data Service - prod 5 13:53:02 160708 duloxetin e medicatio n Not available Not available Not available 09/29/2025 03832 RxNorm Not Available cris - [employer] - prod 5 13:53:02 380396 gabapenti n medicatio n Not available Not available Not available 09/29/2025 41576 RxNorm Not Available [facility] [employer] - prod 5 13:53:02 755942 naproxen medicatio n rash Not available Not available 09/29/2025 7258 RxNorm Not Available cris [employer] - prod 5 13:53:02 638485 acetamino phen / oxycodone medicatio n Not available Not available Not available 09/29/2025 47670 3 RxNorm Not Available cris [employer] - prod 5 13:53:02 592320 azithromy madi medicatio n Not available Not available Not available 09/29/2025 81794 RxNorm Not Available cris [employer] - prod 5 13:53:02 973672 atorvasta tin calcium medicatio n itching rash Not available Not available low 09/29/20252024 92273 RxNorm Not Available cris [employer] - prod 5 13:53:12 492869 rosuvasta tin medicatio n itching Not available Not available 09/29/20252024 18418 2 RxNorm Not Available [employer] Service - prod 5 13:53:12 924786 pitavasta tin calcium medicatio n itching Not available Not available 09/29/20252024 82475 0 RxNorm Not Available cris [employer] - prod 5 13:53:12 731837 simvastat in medicatio n rash Not available low 09/29/20252024 19334 RxNorm Not Available cris - External Data Service - prod 13:53:12 513303 sulfate ion Not available other Not available Not available 09/29/20252014 91453 98 RxNorm Subst ance with sulfo namid e struc ture and antib acter ial mecha nism of actio n (subs tance ) unrec ogniz ed react ion (text : Nause a And Vomit ing, code: 58831 000) (from exter nal sourc e) Not Available cris - External Data Service - prod 13:53:12 Medications Name Sig Start Date Stop Date [...] levothyr oxine; Dosage:1 ; refills: 0; Quantity :80218 mcg Not Available Not Available Not Available [...] Updated DateTime 4 167.64 cm 24.7 kg/m2 12827.6 3 g 16 /min 67 /min 96 % 152/90 mm[Hg] [facility] 4 10:07:20 Date Recorded Body height Body mass index (BMI) Body weight Provider Name and Address Organization Details Last Updated DateTime 10/28/2024 167.64 cm 24.7 kg/m2 75894.63 g [facility] [place] 10/28/2024 13:15:40 Date Recorded Body height Body mass index (BMI) Body weight Respiratory rate Heart rate Oxygen saturation Systolic And Diastolic Provider Name and Address Organization Details Last Updated DateTime 4 167.64 cm 24.7 kg/m2 06519.6 3 g 16 /min 69 /min 96 % 120/80 mm[Hg] [facility] 4 10:42:58 Date Recorded Body height Respiratory rate Body mass index (BMI) Body weight Oxygen saturation Heart rate Systolic And Diastolic Provider Name and Address Organization Details Last Updated DateTime 5 167.64 cm 16 /min 24.7 kg/m2 92882.6 3 g 97 % 68 /min 126/82 mm[Hg] [facility] 5 10:34:11 Date Recorded Body height Body mass index (BMI) Body weight Respiratory rate Heart rate Oxygen saturation Systolic And Diastolic Provider Name and Address Organization Details Last Updated DateTime 4 167.64 cm 24.7 kg/m2 34945.6 3 g 16 /min 86 /min 97 % 122/80 mm[Hg] Frieda Mcmahon [facility] 4 09:59:55 Social History Question Answer Notes LastModified by Braingaze Details LastModified Time Tobacco Smoking Status Former Smoker January Vani [facility] 10/26/2017 14:04:04 How Much Tobacco Do You Chew? None Information not available 06/19/2019 What Was The Date Of Your Most Recent Tobacco Screening? 01/27/2025 [email or web address] Information not available 01/27/2025 How Much Tobacco Do You Smoke? 1 PPD Information not available 06/19/2019 How Many Years Have You Smoked Tobacco? 40 Information not available 06/19/2019 Have You Recently Traveled Abroad? No [email or web address] Information not available 10/24/2022 Sex: Unknown Functional Status Question Answer Note LastModified by Braingaze Details LastModified Time What is your level of alcohol consumption? None [email or web address] Information not available 12/19/2018 Do you or [...] ICD10 Code Diagnosis IMO Codes Diagnosis Note [id number] ARLENE MEI APRN [facility] [address] [place] [address] 10/26/2017 13:52:29 10/26/2017 14:49:45 Pain of multiple joints 36728056 M25.50 71 year old female is here [...] go over results. Anti-nucle ar factor detected 699462747 R76.8 As detailed above OPAL obtained in 2013 was 1:160 homogenous .Recently checked per PCP and was homogenous 1:320.Will obtain lupus panel today. [id number] ARLENE MEI APRN [facility] [address] [place] [address] 11/08/2017 10:21:14 11/12/2017 08:10:02 Hyperuricemia 34171330 E79.0 Hyperurice miaPatient reports episodes of heat in joints and joint pain.Count Includes [facility] er was found to have positive OPAL [...] 3 months, to recheck uric acid level. [id number] ROSE BASS MD [facility] [address] [place] [address] 11/04/2018 10:30:43 11/07/2018 07:59:17 Inflammatory polyarthropathy 515370593 M06.4 very pleasant 72-year-ol d female with [...] she was comfortabl e with the plan. [id number] ROSE BASS MD [facility] [address] [address] 12/19/2018 09:01:43 12/20/2018 08:50:39 Polymyalgia rheumatica 06858844 M35.3 clinically looks so much better. Active and passive range of motion. She has palpable pulses without any jaw tenderness or temporal tenderness . I would like her to maintain prednisone at 5 mg once a day. Inflammato ry polyarthropathy 170284573 M06.4 in terms of inflammato ry arthritis, [...] Her baseline eye examinatio n is stable. [id number] [place] [address] [place] [address] 06/19/2019 09:47:18 06/24/2019 08:38:26 Polymyalgia rheumatica 88857031 M35.3 chronic disease and under excellent control. In clinical remission. Excellent Range of motion. No physical limitation s noted. I would like her to maintain prednisone at 5 mg once a day. Inflammato ry polyarthropathy 809405475 M06.4 chronic polyarticu lar inflammato ry arthritis associated with PMR remains in clinical remission. I would like her to continue with hydroxychl oroquine at 200 mg once a day. [id number] ROSE BASS MD [facility] [address] [place] [address] 06/21/2020 07:59:24 06/21/2020 11:07:16 Polymyalgia rheumatica 96056470 M35.3 74-year-ol d female with chronic polymyalgi [...] headaches or vision changes. Inflammato ry polyarthropathy 004022064 M06.4 chronic polyarticu lar inflammato ry arthritis associated with PMR. fairly stable. maintain hydroxychl oroquine 200 mg twice a [id number] ROSE BASS MD [facility] [address] [address] 09/29/2020 10:12:08 09/29/2020 10:38:53 Polymyalgia rheumatica 89063845 M35.3 74-year-ol d female with chronic polymyalgi [...] follow-up in 3 months Inflammato ry polyarthropathy 249677272 M06.4 associated inflammato ry arthritis. Symptomati marvin joint pains as detailed above. Medication s As described above combinatio n of hydroxychl oroquine and prednisone . Follow-up in 3 months. [id number] ROSE BASS MD [facility] [place] [address] [place] [address] 12/29/2020 10:28:14 12/29/2020 11:52:19 Polymyalgia rheumatica 57075765 M35.3 74-year-ol d female with chronic polymyalgi [...] n once a year. Inflammato ry polyarthropathy 772744529 M06.4 Chronic and associated with polymyalgi a rheumatica . Currently clinically stable. Maintain the combinatio n of prednisone as well as hydroxychl oroquine as stated above. [id number] ROSE BASS MD [facility] [place] [address] [place] [address] 04/29/2021 09:27:28 04/29/2021 10:15:19 Inflammatory polyarthropathy 860721207 M06.4 Chronic and associated with polymyalgi a rheumatica . has done well. Unfortunaakilah khan not able to load the prednisone dose and is currently on prednisone 10 mg alternatin g with 5 mg every other day. She also takes hydroxychl oroquine 200 mg twice a day. Must need to follow with eye examinatio n once a year Polymyalgi a rheumatica 69650390 M35.3 75-year-ol d female with chronic polymyalgi a rheumatica . Clinically stable on the current dose of prednisone as detailed above. No stigmata for giant cell arteritis. Repeat the ESR. Follow with eye examinatio n once a year. Long-term drug therapy 221837803 Z79.899 Of pain last follow-up on polymyalgi a rheumatica and inflammato ry arthritis. Bone density test needs to be done every 2 years. Maintain calcium and vitamin D on account of risk for osteoporos is on steroids. Also suggested to follow up with a bone density test with her primary care physician [id number] ROSE BASS MD [facility] [address] [place] [address] 11/02/2021 12:56:26 11/02/2021 13:19:32 Inflammatory polyarthropathy 199869348 M06.4 [id number] ar-old with polyarthri tis Chronic and stable. The current combinatio n of prednisone and hydroxychl oroquine is very helpful. Refills were given.Foll ow-up in 6 months Polymyalgi a rheumatica 78941685 M35.3 75-year-ol d female with chronic polymyalgi a rheumatica . Clinically stable on the current dose of prednisone 10 mg alternatin g with 5 mg every other day along with hydroxychl oroquine 200 mg twice a day. No stigmata for giant cell arteritis. Repeat the ESR. Follow with eye examinatio n once a year. Long-term drug therapy 367238945 Z79.899 Must follow-up with an eye examinatio n every year. Bone density test every 2 years. Maintain calcium vitamin D. Also suggested to follow up with a bone density test with her primary care physician [id number] ROSE BASS MD [facility] [address] [place] [address] 05/01/2022 08:17:48 05/01/2022 15:37:51 Inflammatory polyarthropathy 826812393 M06.4 76- year-old with polyarthri tis Seronegati [...] intact active and passive range of motion.Shahrzad ntain the current treatment plans Refills were given.Foll ow-up in 6 months Polymyalgi a rheumatica 95188111 M35.3 76-year-ol d female with chronic polymyalgi a rheumatica . Clinically stable. No proximal muscle pain or weakness reported.N o stigmata for giant cell arteritis. Last ESR 04/29/2021 9 mm/h Repeat the ESR. Follow with eye examinatio n once a year. Long-term drug therapy 293714342 Z79.899 Must follow-up with an eye examinatio n every year. Bone density test every 2 years. Maintain calcium vitamin D. She typically follows the bone density test with her PCP. She will get us a copy. [id number] ROSE BASS MD [facility] [address] [place] [address] 10/24/2022 13:59:01 10/25/2022 14:30:30 Inflammatory polyarthropathy 216199383 M06.4 76- year-old with polyarthri tisSeroneg ative [...] renal toxicity. Refills given Polymyalgi a rheumatica 95246066 M35.3 76-year-ol d female with chronic polymyalgi a rheumatica .From the PMR point of view looks stable.No proximal muscle pain or weakness reported.N o stigmata for giant cell arteritis. Last ESR 04/29/2021 9 mm/h Repeat ESR today Long-term drug therapy 820340886 Z79.899 Must follow-up with an eye examinatio n every year While taking the hydroxychl oroquine. On account of corticoste roid use, osteoporos is, osteonecro sis risk were reviewed. Weight gain diabetes also reviewed. Must follow with a bone density every 2 years [id number] ROSE BASS MD [facility] [address] [address] 04/03/2023 13:22:18 04/05/2023 04:49:45 Inflammatory polyarthropathy 382790861 M06.4 77- year-old with polyarthri tisSeroneg ative [...] toxicity. Follow-up 6 months Polymyalgi a rheumatica 99743949 M35.3 77-year-ol d female with chronic polymyalgi [...] prednisone resulted in flare. Long-term drug therapy 243143071 Z79.899 Must follow-up with an eye examinatio n every year While taking the hydroxychl oroquine. On account of corticoste roid use, osteoporos is, osteonecro sis risk were reviewed. Weight gain diabetes also reviewed. Must follow with a bone density every 2 years [id number] ROSE BASS MD [facility] [address] [place] [address] 10/25/2023 09:56:13 10/26/2023 15:37:58 Inflammatory polyarthropathy 919366121 M06.4 77- year-old with polyarthri tisSeroneg ative [...] toxicity. Follow-up 3 months Polymyalgi a rheumatica 16887467 M35.3 77-year-ol d female with chronic polymyalgi [...] her current treatment plan. Long-term drug therapy 991151916 Z79.899 Must follow-up with an eye examinatio n every year While taking the hydroxychl oroquine. On account of corticoste roid use, osteoporos is, osteonecro sis risk were reviewed. Weight gain diabetes also reviewed. Must follow with a bone density every 2 years [id number] ROSE BASS MD [facility] [address] [place] [address] 01/21/2024 10:13:42 01/22/2024 04:18:34 Inflammatory polyarthropathy 900260848 M06.4 78- year-old with polyarthri tisSeroneg ative [...] toxicity. Follow-up 3 months Polymyalgi a rheumatica 52141770 M35.3 78-year-ol d female with chronic polymyalgi [...] CRP 10/25/2023 is normal Long-term drug therapy 700330663 Z79.899 Must follow-up with an eye examinatio n every year While taking the hydroxychl oroquine. On account of corticoste roid use, osteoporos is, osteonecro sis risk were reviewed. Weight gain diabetes also reviewed. Must follow with a bone density every 2 years Fibromyalgia 465987003 M 79.7 Symptomati c with diffuse fibromyalg ia tender points. Discussed the diagnosis of fibromyalg ia. Educated about the disease. On account of fibromyalg ia pain, suggested the addition of cymbalta. Side effect profile reviewed. Prescripti on sent. Breast reduction discussed. Follow up in March 2024. [id number] ROSE BASS MD [facility] [address] [place] [address] 05/07/2024 09:49:06 05/08/2024 04:38:13 Inflammatory polyarthropathy 331070265 M06.4 78- year-old with polyarthri tisSeroneg ative [...] toxicity. Follow-up 3 months Polymyalgi a rheumatica 59504083 M35.3 78-year-ol d female with chronic polymyalgi [...] ESR and CRP today. Long-term drug therapy 745201009 Z79.896 Must follow-up with an eye examinatio n every year While taking the hydroxychl oroquine. On account of corticoste roid use, osteoporos is, osteonecro sis risk were reviewed. Weight gain diabetes also reviewed. Must follow with a bone density every 2 yearsTB and hep c test today. Fibromyalgia M 79.7 Symptomati c with diffuse fibromyalg ia tender points. Discussed the diagnosis of fibromyalg ia. Educated about the disease. On account of fibromyalg ia pain, suggested the addition of cymbalta. Side effect profile reviewed. Prescripti on sent. Breast reduction discussed. Follow up in March 2024. [id number] ROSE BASS MD [facility] [address] [place] [address] 10/28/2024 13:15:11 10/29/2024 09:41:27 Inflammatory polyarthropathy 178919901 M06.4 78- year-old with polyarthri tisSeroneg ative [...] toxicity. Follow-up 3 months Polymyalgi a rheumatica 21633923 M35.3 78-year-ol d female with chronic polymyalgi a rheumatica .Asymptoma tic. On combinatio n of prednisone and hydroxychl oroquine as detailed above. We have talked about Kevzara. She would rather hold off on it. Long-term drug therapy 850428222 Z79.891 Must follow-up with an eye examinatio n every year While taking the hydroxychl oroquine. On account of corticoste roid use, osteoporos is, osteonecro sis risk were reviewed. Weight gain diabetes also reviewed. Must follow with a bone density every 2 yearsTB and hep c test today. Fibromyalgia M 79.7 Clinically stable. No complaints . Pains are well-contr olled. Continue with gabapentin 100 mg every 8 hours Follow-up in 3 months [id number] ROSE BASS MD [facility] [address] [place] [address] 01/27/2025 10:22:01 01/28/2025 04:37:03 Inflammatory polyarthropathy 266557715 M06.4 78- year-old with polyarthri tisSeroneg ative [...] toxicity. Follow-up 3 months Polymyalgi a rheumatica 76056794 M35.3 78-year-ol d female with chronic polymyalgi a rheumatica .She is fairly stable at this time. Most of the pains are mechanical . She will continue with the prednisone with an option of increasing the dose to 5 mg once or twice a day as needed. Continue with hydroxychl oroquine as detailed above. We have talked about Cliffordzara. She would rather hold off on it. Long-term drug therapy 841270673 Z79.899 Must follow-up with an eye examinatio n every year While taking the hydroxychl oroquine. On account of corticoste roid use, osteoporos is, osteonecro sis risk were reviewed. Weight gain diabetes also reviewed. Must follow with a bone density every 2 years Will repeat the labs on her visit in April. Fibromyalgia M 79.7 Clinically stable. No complaints . [...] Name 07/31/2025 1 [place] Andry Culp [id number] Andry Cupl 05/16/2024 2 [employer] Andry Culp [id number] Andry Culp 07/31/2025 2 [employer] (MEDICARE SUPPLEMENT) PLAN G Andry Culp [id number] Andry Culp Notes Date Note Type Note [...] headaches or jaw pain. ROSE BASS MD [address] [place] [address], [phone], [facility] 10/25/2023 10:45:26 01/21/2024 text/html ROS as noted [...] headaches or jaw pain. ROSE BASS MD [facility] [place], [phone], [facility] 01/21/2024 16:55:07 05/07/2024 text/html ROS as noted [...] headaches or jaw pain. ROSE BASS MD [address] [place] [address], [phone], [facility] 05/07/2024 16:46:44 10/28/2024 text/html ROS as noted in the HPI Visit today is being conducted via telehealth using both audio/video. The patient confirms that he/she is physically located in [place] at the time of this visit. Patient [...] headaches or jaw pain. ROSE BASS MD [address] [place] [address], [phone], [facility] 10/28/2024 13:30:53 01/27/2025 text/html ROS as noted [...] pain. No vision changes. ROSE BASS MD [address] [place] [address], [phone], [facility] 01/27/2025 11:01:52 OBGyn Episode No OBEpisode recorded.
--- OUTSIDE RECORDS SUMMARY | 2025-10-16 09:29 | XMS_ITS | Patient Health Record ---
Author Organization [facility] Address [address] [facility] [address] [place] [id number] Care Team Providers Care Customer Account Manager Name Role Phone Raul Torres Primary Care Provider Marie Helm Unavailable [phone] Oneida Edwards Unavailable [phone] Allergies Allergen (clinical drug ingredient) Drug/Non Drug [...] 102 Performing Lab: Notes/Report: Test performed by [facility] , [address], [place] [address] Gilmer Lowe MD, Bread Wrapper CLIA: [id number] Sodium 122 135-145 mmol/L Potassium 4.2 3.5-5.3 mmol/L Chloride 86 97-108 mmol/L CO2 25 20-32 mmol/L Glucose 102 65-99 mg/dL BUN 19 8-23 mg/dL Creatinine 0.85 0.50-1.00 mg/dL Calcium 9.5 8.6-10.4 mg/dL eGFR by Creatinine 70 >59 mL/min/1.73m2 H-CBC Reviewed date:07/24/2025 09:37:12 AM Interpretation: Performing [...] 95 74-100 mg/dl CA 8.9 8.4-10.2 mg/dl Urinalysis - Inhouse Reviewed date:05/28/2025 03:50:05 PM Interpretation: Performing Lab: Notes/Report: Color/Clarity yellow/clear Leuk neg Nitrite neg Urobili 3.2 Protein neg pH 8.0 Blood neg Sp. Gr. 1.015 Ketone neg Bili neg Gluc neg H-CBC Reviewed date:03/17/2025 11:12:11 AM Interpretation: Performing [...] 0.1 0-0.2 K/mm3 NRBC# 0 IG# 0.12 CBC Venipuncture (in house) Reviewed date:04/16/2025 11:50:29 [...] Interpretation: Performing Lab: Notes/Report: Test performed by [facility] [address] [place] [address] , [address], [place] [address] Gilmer Lowe MD, Bread Wrapper CLIA: [id number] Cortisol AM 5.3 6.0-18.4 ug/dL P-Basic Metabolic Panel (BMP ) Reviewed date:04/14/2025 01:09:28 PM Interpretation: Performing Lab: Notes/Report: Test performed by [facility] [address] [place] [address] , [address], [place] [address] Gilmer Lowe MD, Bread Wrapper CLIA: [id number] Sodium 128 135-145 mmol/L Potassium 3.7 3.5-5.3 [...] 87 74-100 mg/dl CA 8.3 8.4-10.2 mg/dl H-CBC Reviewed date:07/23/2025 08:33:44 AM [...] mg/dl CA 8.0 8.4-10.2 mg/dl H-CBC Reviewed date:07/27/2025 08:33:48 AM [...] 81 on 07/26/25 CA 8.8 8.4-10.2 mg/dl H-CBC Reviewed date:07/28/2025 11:32:54 AM [...] 79 74-100 mg/dl CA 8.8 8.4-10.2 mg/dl GIMID Reviewed date:09/22/2025 09:54:38 AM Interpretation: Performing [...] GLU 81 74-100 mg/dl Delta: 111 on 09/21/25-0855 CA 10.0 8.4-10.2 mg/dl H-Magnesium Reviewed date:09/22/2025 09:54:38 AM Interpretation: Performing Lab: Notes/Report: MG 1.5 1.6-2.3 mg/dl H-BMP Reviewed date:03/12/2025 11:04:11 AM Interpretation: [...] occasionally prescribed for medical conditions. H-CBC Reviewed date:03/13/2025 08:48:08 AM Interpretation: Performing [...] 80 74-100 mg/dl CA 8.3 8.4-10.2 mg/dl BMP Reviewed date:04/02/2025 02:57:40 PM Interpretation: Performing Lab: Notes/Report: H-CBC Reviewed date:07/21/2025 08:59:07 AM Interpretation: Performing [...] 126 74-100 mg/dl CA 8.4 8.4-10.2 mg/dl H-Magnesium Reviewed date:07/21/2025 08:59:07 AM Interpretation: Performing Lab: Notes/Report: MG 2.7 1.6-2.3 mg/dl Delta: 1.7 on 07/20/25 H-CBC Reviewed date:07/22/2025 12:02:51 PM Interpretation: Performing [...] 117 74-100 mg/dl CA 8.5 8.4-10.2 mg/dl Medications Medication SIG (Take, Route, Frequency, Duration) [...] W/U Status Risk Notes Problem Essential hypertension (79806065) Essential (primary) hypertension (I10) Active confirmed Problem Coronary arteriosclerosis (53326139) ASCVD (arteriosclerotic cardiovascular disease) (I25.10) Active confirmed Problem Essential hypertension (16916537) Essential hypertension (I10) Active confirmed Problem Gout attack (033040556) Gout attack (M10.9) Active confirmed Problem Rhinitis (77984263) Rhinitis (J31.0) Active con firmed Problem Osteopenia (701506373) Osteopenia (M85.80) Active confirmed Problem Altered mental statu s (607081073) Altered mental state (R41.82) Active confirmed Problem Environmental allerg y (737241071) Environmental allergies (Z91.048) Active confirmed Problem Memory loss (27450975) Memory loss (R41.3) Active confirmed Problem Hypomagnesemia (572353350) Hypomagnesemia (E83.42) Active confirmed Problem Acute non-ST segment elevation myocardial infarction (050079046) Non-ST elevation (NSTEMI) myocardial infarction (I21.4) Active confirmed Problem Inflammatory polyarthropathy (581414684) 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) Active confirmed Problem Polymyalgia rheumatica (26342170) Polymyalgia rheumatica (M35.3) Active confirmed Problem Ataxic gait (58067539) Ataxic gait (R26.0) Active confirmed Problem Acquired hypothyroidism (129549455) Acquired hypothyroidism (E03.9) Active confirmed Problem Neck pain (20745453) Neck pain (M54.2) Active c onfirmed Problem Paresthesia (finding ) (08484485) Paresthesias (R20.2) Active confirmed Problem History of circulatory system disease (691932981) 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) Active confirmed Problem Muscle spasm (44804299) Muscle spasm (M62.838) Active confirmed Problem Rheumatoid arthritis (45870383) Rheumatoid arthritis (M06.9) Active confirmed Problem Sleep disorder (24018363) Sleep disorder (G47.9) Active confirmed Problem Cervical disc disorder (646056842) DDD (degenerative disc disease), cervical (M50.30) Active confirmed Problem Primary osteoarthritis (525190208) Primary osteoarthritis (M19.91) Active confirmed Problem Dyslipidemia (542129931) Dyslipidemia (E78.5) Active confirmed Problem Leukocytosis (398098557) Leukocytosis, unspecified (D72.829) Active confirmed Problem Impairment of balanc e (804251048) Balance problem (R26.89) Active confirmed Problem Anemia (358433641) Mild anemia (D64.9) Active c onfirmed Problem Rheumatoid arthritis (36670710) Rheumatoid arthritis, involving unspecified site, unspecified whether rheumatoid factor present (M06.9) Active confirmed Problem Systolic heart failure (304247650) HFrEF (heart failure with reduced ejection fraction) (I50.20) Active confirmed Problem Sialodocholithiasis (80528049) Sialodocholithiasis (K11.5) Active confirmed Vital Signs Heart Rate 60 /min 09/03/2025 Respiratory Rate 20 /min 03/31/2025 Blood pressure diastolic 70 mm Hg 09/03/2025 Height 65 in 09/03/2025 Blood pressure systolic 120 mm Hg 09/03/2025 Weight 000 lbs 09/03/2025 BMI 25.32 kg/m2 06/16/2025 Encounters Encounter Location Date Provider Diagnosis [facility] [address] [facility] [address] [place] [id number] 11/13/2024 R John Torres Chronic diarrhea K52 .9 and Rheumatoid arthritis, involving unspecified site, unspecified whether rheumatoid factor present M06.9 [facility] [address] [facility] [address] [place] [id number] 12/12/2024 Oneida Edwards Open wound of right lower extremity, initial encounter S81.801A [facility] [address] [facility] [address] [facility] [address] [place] [id number] 12/25/2024 R John Melissa Rheumatoid arthritis M06.9 [facility] [address] [place] [id number] 02/05/2025 R John Melissa Acute sinusitis J01. 90 ; Inflammatory polyarthropathy M06.4 ; Polymyalgia rheumatica M35.3 ; Acquired hypothyroidism E03.9 ; Dyslipidemia E78.5 ; Essential hypertension I10 and BMI 24.0-24.9, adult Z68.24 [facility] [address] [place] [id number] 02/17/2025 R John Melissa Glossitis K14.0 ; Shoulder pain M25.519 and BMI 24.0-24.9, adult Z68.24 [facility] [facility] [address] [place] [id number] 03/31/2025 Marierossi Helm Polymyalgia rheumati ca M35.3 ; Rib fractures S22.39XA ; Acquired hypothyroidism E03.9 ; Dyslipidemia E78.5 ; Essential hypertension I10 ; Nausea R11.0 ; Leg edema R60.0 ; Hx of arteriosclerotic cardiovascular disease Z86.79 ; Accidental fall, subsequent encounter W19.XXXD ; Sleep disorder G47.9 and Hypokalemia E87.6 [facility] [address] [place] [id number] 04/09/2025 R John Melissa Hyponatremia E87.1 ; Rib fractures S22.39XA ; Chronic diarrhea K52.9 and BMI 23.0-23.9, adult Z68.23 [facility] [address] [place] [id number] 04/16/2025 R John Melissa Acute sinusitis J01. 90 ; Adhesive capsulitis of left shoulder M75.02 ; Dyslipidemia E78.5 ; Rib fractures S22.39XA ; Leg edema R60.0 and Onychomycosis B35.1 [facility] [address] [place] [id number] 05/07/2025 R John Melissa Inflammatory polyarthropathy M06.4 [facility] [facility] [address] [place] [id number] 05/19/2025 R John Melissa Hyponatremia E87.1 ; Muscle weakness M62.81 and BMI 23.0-23.9, adult Z68.23 [facility] [address] [facility] [address] [place], [place] [id number] 05/26/2025 R John Melissa Hyponatremia E87.1 ; Memory loss R41.3 and BMI 24.0-24.9, adult Z68.24 [facility] [address] [facility] [address] [place], [place] [id number] 05/28/2025 R John Melissa Altered mental state R41.82 [facility] [address] [facility] [address] [place], [place] [id number] 06/16/2025 R John Melissa Rheumatoid arthritis M06.9 ; Leg edema R60.0 and Hyponatremia E87.1 [facility] [address] [place], [place] [id number] 07/15/2025 R John Melissa Encounter for immunization Z23 [facility] [address] [facility] [address] [place], [place] [id number] 09/03/2025 R John Melissa Rheumatoid arthritis , involving unspecified site, unspecified whether rheumatoid factor present M06.9 and ASCVD (arteriosclerotic cardiovascular disease) I25.10 [facility] [address] [facility] [address] [place], [place] [id number] 10/23/2024 R John Melissa Leg edema R60.0 [facility] [address] [facility] [address] [place] [id number] 11/18/2024 R John Melissa Rib fractures S22.39 [facility] [address] [facility] [address] [place] [id number] 11/25/2024 R John Melissa [facility] [address] [facility] [address] [place], [place] [id number] 12/12/2024 R John Melissa Chronic diarrhea K52 .9 [facility] [address] [place], [place] [id number] 12/17/2024 R John Melissa Rib fractures S22.39 XA [facility] [address] [place] [id number] 12/26/2024 R John Melissa [facility] [address] [place] [id number] 2024 R John Melissa Chronic diarrhea K52 .9 [facility] [address] [place] [id number] 01/06/2025 R John Melissa [facility] [address] [place] [id number] 01/13/2025 R John Melissa Rib fractures S22.39 XA [facility] [address] [place] [id number] 01/21/2025 R John Melissa [facility] [address] [place], [place] [id number] 01/30/2025 R John Melissa Rib fractures S22.39 XA [facility] [address] [place] [id number] 02/02/2025 R John Melissa [facility] [address] [place] [id number] 02/04/2025 R John Melissa Chronic diarrhea K52 .9 [facility] [address] [place] [id number] 02/16/2025 R John Melissa Rib fractures S22.39 XA [facility] [address] [place] [id number] 03/02/2025 Marie Helm Rib fractures S22.39 XA [facility] [address] [place] [id number] 03/16/2025 R John Melissa [facility] [address] [place] [id number] 03/23/2025 R John Melissa [facility] [address] [place] [id number] 04/02/2025 R John Melissa [facility] [address] [place] [id number] 04/07/2025 R John Melissa Leg edema R60.0 [facility] [address] [place] [id number] 04/09/2025 R John Melissa Leg edema R60.0 [facility] [address] [place] [id number] 04/10/2025 R John Melissa [facility] [address] [place] [id number] 04/13/2025 R John Melissa [facility] [address] [place] [id number] 04/13/2025 R John Melissa Acquired hypothyroid ism E03.9 [facility] [address] [place] [id number] 04/14/2025 R John Melissa [facility] [address] [place] [id number] 04/19/2025 R John Melissa Screening for osteoporosis Z13.820 [facility] [address] [place] [id number] 04/20/2025 R John Melissa [facility] [address] [place] [id number] 04/22/2025 R John Melissa Nausea R11.0 [facility] [address] [place] [id number] 05/06/2025 R John Melissa Hypokalemia E87.6 [facility] [address] [place] [id number] 05/26/2025 R John Melissa [facility] [address] [place] [id number] 05/29/2025 Oneida Crowdy [facility] [address] [place] [id number] 06/02/2025 R John Melissa [facility] [address] [place] [id number] 06/02/2025 R John Melissa [facility] [address] [place] [id number] 06/09/2025 R John Melissa [facility] [address] [place] [id number] 06/09/2025 R John Melissa [facility] [address] [place] [id number] 06/18/2025 R John Melissa Leg edema R60.0 [facility] [address] [place] [id number] 06/25/2025 R John Melissa [facility] [address] [place] [id number] 07/06/2025 R John Melissa [facility] [address] [place] [id number] 07/24/2025 R John Melissa [facility] [address] [place] [id number] 08/04/2025 R John Melissa [facility] [address] [place] [id number] 09/07/2025 R John Melissa [facility] [address] [place] [id number] 09/14/2025 R John Melissa [facility] [address] [place] [id number] 09/22/2025 R John Melissa [facility] [address] [place] [id number] 09/28/2025 R John Melissa [facility] [address] [place] [id number] 09/29/2025 Raul Rodriguesfleet [facility] [address] [facility] [address] [place] [id number] 09/29/2025 Raul Torres Nausea R11.0 Assessments Encounter [...] - M06.9) 09/29/2025 Nausea (ICD-10 - R11.0) 05/28/2025 Altered mental state (ICD-10 - R41.82) 06/16/2025 Hyponatremia (ICD-10 - E87.1) 05/26/2025 BMI 24.0-24.9, adult (ICD-10 - Z68.24) 04/16/2025 Dyslipidemia (ICD-10 - E78.5) 05/19/2025 BMI 23.0-23.9, adult (ICD-10 - Z68.23) 04/09/2025 Chronic diarrhea (ICD-10 - K52.9) 03/31/2025 Acquired hypothyroidism (ICD-10 - E03.9) 02/17/2025 BMI 24.0-24.9, adult (ICD-10 - Z68.24) 02/05/2025 Polymyalgia rheumatica (ICD-10 - M35.3) 02/05/2025 Acquired hypothyroidism (ICD-10 - E03.9) 04/09/2025 [...] Date MEDICARE PART B [address] [address] [place] [id number] [id number] Andry Culp Self - patient is the insured [employer] Technology[employer]UCAS CHIPEWWABRIAN [id number] [phone] [id number] Andry Culp Self - patient is the [...] 01/02/2022 1.5 mL Depo- Medrol 40 mg/ml 09/03/2025 1 mL Depo- Medrol 40 mg/ml 03/11/2024 1 mL Depo- Medrol 40 mg/ml 09/30/2024 1 mL Depo- Medrol 40 mg/ml 11/13/2024 1 mL Depo- Medrol 40 mg/ml 12/25/2024 1 mL Depo- Medrol 40 mg/ml 04/09/2025 1 mL Depo- Medrol 40 mg/ml 06/16/2025 1 mL Depo- Medrol 40 mg/ml 03/08/2023 1.5 mL Depo- Medrol 40 mg/ml 05/15/2023 1.5 mL Depo- Medrol 40 mg/ml 06/21/2023 1 mL Depo- Medrol 40 mg/ml 09/04/2023 1 mL Depo- Medrol 40 mg/ml 12/11/2023 1 mL Depo- Medrol 40 mg/ml 01/10/2024 1 mL Depo- Medrol 40 mg/ml 01/09/2022 1 mL Depo- Medrol 40 mg/ml 04/17/2022 1.5 mL Depo- Medrol 40 mg/ml 08/04/2022 1.5 mL Depo- Medrol 40 mg/ml 09/18/2022 1.5 mL Depo- Medrol 40 mg/ml 12/07/2022 1.5 mL Depo- Medrol 40 mg/ml 01/23/2023 1.5 mL Dexamethasone 12/01/2013 1 mL Dexamethasone 12/16/2018 [...] hypertension Hypothyroidism/goiter kidney stones allergic rhinitis ASCVD: [place] - 09/2013-followed by Dr. Arrington q 6 months cataracts Hyperuricemia Inflammatory arthritis - Dr. Cheng polymyalgia rheumatica - Dr. Skylar Bhatia Covid vaccine x2 Oct/Nov 2020 Surgical History Surgery Date(Month/Year) Thyroidectomy/Goiter removal 1999 Back 2001 Total Hysterectomy 1992 Tonsillectomy child Cardiac Stent Placed-[facility]-Dr Arrington. Dr. Santo 10/19/2013 Cataract 10/2017 Hospitalization History Reason Date(Month/Year) Facial Pain, Sinus Blockage- [facility] ER 01/2018 Heart Attack- [facility] 09/2013 Itching, Swelling in Hands- [facility] ER 10/21 kidney stones 1992 [facility] : fall with multiple FX ribs on the right; hyponatremia and hypokalemia 03/12-03/15/2025 Dehydration, Failure to Thrive, Acute Ur inary Retention- [facility] 07/14- Multiple rib and pelvic frac tures; hyponatremia; rheumatoid arthritis; ASCVD- 06/30-
--- OUTSIDE RECORDS SUMMARY | 2025-10-16 09:30 | XMS_ITS | Clinical Summary ---
Author Organization [facility] Address [address] [place] [address] Phone Care Team Providers Care Business And Marketing Teacher Name Role Phone Unavailable Primary Care Provider [...] B MEDICARE IN PART A AND B [facility]
[2025-10-16 10:10] LABS: Chloride 96 mmol/L (98-107)
[2025-10-16 10:11] LABS: Potassium 4.4 mmoL/L (3.5-5.1); Sodium 127 mmol/L (136-145)
[2025-10-16 10:13] LABS: Blood Urea Nitrogen 19 mg/dl (7-17); Creatinine,Serum 1.20 mg/dl (0.52-1.04); Estimated Glomerular Filt Rate 43 ml/min (>60); GFR (African American) 53 ML/MIN (>60)
[2025-10-16 10:14] LABS: Anion Gap 12.4 mEq/L (5-15); Calcium 9.8 mg/dl (8.4-10.2); Carbon Dioxide 23 mmol/L (22.0-30.0); Glucose 85 mg/dl (74-100)
--- OUTSIDE RECORDS SUMMARY | 2025-11-04 19:00 | XMS_ITS | Clinical Summary ---
Author Organization Unknown Care Team Providers Care Digital Artist Name Role Phone BETH LEMOS, EMA Unavailable Unavailable KENDALL RN, NICOLE Unavailable Unavailable ANGIE EAP COUNSELOR, JOSE M Unavailable Unavailable SHAUNNA PT, BHAVANA Unavailable Unavailable SUNITHA WOOD FLOORING SPECIALIST, RIANA Unavailable Unavaillauren CARRION OT, ANN Unavailable Unavailable RENAE AMALIA/ISBELL, MARIEA Unavailable Unavail able Payers Payer Name Policy Type Policy Number Effective Date Expira tion Date MEDICARE.[facility] [id number] Problems Condition Name Condition Details Condition Category Status Onset Date Resolution Date Last Treatment Date Treating Clinician Comments HYPERTENSIVE HEART DISEASE WITH HEART FAILURE Active 2024-10 00:00: 00 HEART FAILURE, UNSPECIFIED Active 2024-10 00:00: 00 ATHSCL HEART DISEASE OF [place] CORONARY ARTERY W/O ANG PCTRS Active 2024-10 00:00: 00 HYPO-OSMOLAL ITY AND HYPONATREMIA Active 2024-10 00:00: 00 NONRHEUMATIC MITRAL (VALVE) INSUFFICIENC Y Active 2024-10 00:00: 00 HYPOTHYROIDI SM, UNSPECIFIED Active 2024-10 00:00: 00 RHEUMATOID ARTHRITIS, UNSPECIFIED Active 2024-10 00:00: 00 OLD MYOCARDIAL INFARCTION Active 2024-10 0-04 00:00: 00 ANEMIA, UNSPECIFIED Active 2024-10 00:00: 00 POLYMYALGIA RHEUMATICA Active 2024-10 00:00: 00 OTHER HAMMER TOE(S) (ACQUIRED), UNSPECIFIED FOOT Active 2024-10 00:00: 00 ATELECTASIS Active 2024-10 00:00: 00 CORNS AND CALLOSITIES Active 2024-10 00:00: 00 RETENTION OF URINE, UNSPECIFIED Active 2024-10 00:00: 00 HYPERLIPIDEM IA, UNSPECIFIED Active 2024-10 00:00: 00 HISTORY OF FALLING Active 2024-10 00:00: 00 [facility] (CURRENT) USE OF ASPIRIN Active 2024-10 00:00: 00 PERSONAL HISTORY OF (HEALED) TRAUMATIC FRACTURE Active 2024-10 00:00: 00 PERSONAL HISTORY OF COVID-19 Active 2024-10 00:00: 00 PERSONAL HISTORY OF NICOTINE DEPENDENCE Active 2024-10 00:00: 00 Allergies, Adverse Reactions, Alerts Allergy Name Allergy Type Status Severity Reaction(s) Onset Date Inactive Date Treating Clinician Comments PENICILLI N,, Propensity to adverse reactions Active 2025-08 09:31:4 4 SULFA (SULFONAM IDES) Propensity to adverse reactions Active 2025-08 09:32:1 7 CODEINE Propensity to adverse reactions Active 2025-08 09:32:2 6 Medications Ordered Medication Name Filled Medication Name Start Date Stop Date Current Medication? Ordering Clinician Indication Dosage Frequency Signature (SIG) Comments Components potassium chloride ER 10 mEq tablet,exte nded release 5-14 00:00: 00 04-13 08:31 :58 No [id number] DEFICIENCY 1 tablet DAILY 1 tablet DAILY (route: oral) Med Classific ation: Electroly te Balance-N utritiona l Products Adult Aspirin Regimen 81 mg tablet,maik yed release 2024-10 00:00: 00 Yes [id number] BLOOD THINNER 1 tablet DAILY 1 tablet DAILY (route: oral) Med Classific ation: Hematolog ical Agents benzonatate 100 mg capsule 2024-10 00:00: 00 Yes [id number] COUGH 1 capsule NEEDED 1 capsule NEEDED (route: oral) Med Classific ation: Respirato ry Therapy Agents carvedilol 12.5 mg tablet 2024-10 00:00: 00 Yes [id number] HEART 1 tablet DAILY 1 tablet DAILY (route: oral) Med Classific ation: Cardiovas cular Therapy Agents cyclobenzap rine 5 mg tablet 2024-10 00:00: 00 Yes [id number] MUSCLE SPASMS 1 tablet EVERY PM 1 tablet EVERY PM (route: oral) Med Classific ation: Locomotor System Entresto 24 mg-26 mg tablet 2024-10 00:00: 00 Yes [id number] HEART FAILURE 1 tablet 2 TIMES DAILY 1 tablet 2 TIMES DAILY (route: oral) Med Classific ation: Cardiovas cular Therapy Agents hydroxychlo roquine 200 mg tablet 2024-10 00:00: 00 Yes [id number] UNKNOWN 1 tablet DAILY 1 tablet DAILY (route: oral) Med Classific ation: Anti-Infe ctive Agents hyoscyamine 0.125 mg disintegrat ing tablet 2024-10 00:00: 00 Yes [id number] DIARRHEA 1 tablet NEEDED 1 tablet NEEDED (route: oral) Med Classific ation: Gastroint estinal Therapy Agents levothyroxi ne 112 mcg capsule 2024-10 00:00: 00 Yes [id number] NO THYROID 1 capsule DAILY 1 capsule DAILY (route: oral) Med Classific ation: Endocrine ondansetron 4 mg disintegrat ing tablet 2024-10 00:00: 00 Yes [id number] NAUSEA OR VOMITING 1 tablet NEEDED 1 tablet NEEDED (route: oral) Med Classific ation: Gastroint estinal Therapy Agents potassium chloride ER 10 mEq tablet,exte nded release 2024-10 00:00: 00 Yes [id number] DEFICIENCY 1 tablet DAILY 1 tablet DAILY (route: oral) Med Classific ation: Electroly te Balance-N utritiona l Products pravastatin 40 mg tablet 2024-10 00:00: 00 Yes [id number] CHOLESTEROL 1 tablet DAILY 1 tablet DAILY (route: oral) Med Classific ation: Cardiovas cular Therapy Agents spironolact one 25 mg tablet 2024-10 00:00: 00 Yes [id number] FLUID 1 tablet DAILY 1 tablet DAILY (route: oral) Med Classific ation: Cardiovas cular Therapy Agents tamsulosin 0.4 mg capsule 2024-10 00:00: 00 Yes [id number] URINARY 1 mg DAILY 1 mg GIANNA Y (route: oral) Med Classific ation: Genitouri nary Therapy Vital Signs Vital Name Observation Time Observation Value Commen ts Temperature 2025-09-29 12:07:00.000 97.5 [degF] Temperature 2025-09-15 13:29:00.000 97.9 [degF] Temperature 2025-09-09 10:57:00.000 97.3 [degF] Temperature 2025-09-07 10:17:00.000 97.2 [degF] Height 2025-09-07 09:10:43.000 65 [in_us] Pulse 2025-09-29 12:07:00.000 67 /min Pulse 2025-09-15 13:29:00.000 77 /min Pulse 2025-09-09 10:57:00.000 68 /min Pulse 2025-09-07 10:17:00.000 63 /min O2 Saturation (%) 2025-09-29 12:07:00.000 95 % O2 Saturation (%) 2025-09-15 13:29:00.000 96 % O2 Saturation (%) 2025-09-09 10:57:00.000 96 % O2 Saturation (%) 2025-09-07 10:17:00.000 96 % Respirations 2025-09-29 12:07:00.000 18 /min Respirations 2025-09-15 13:29:00.000 16 /min Respirations 2025-09-09 10:57:00.000 18 /min Respirations 2025-09-07 10:17:00.000 16 /min Weight (lbs) 2025-09-29 12:07:00.000 Weight (lbs) 2025-09-15 13:29:00.000 129.8 [lb_av] Weight (lbs) 2025-09-07 09:10:51.000 Systolic Blood Pressure 2025-09-29 12:07:00.000 90 mm[ Hg] Systolic Blood Pressure 2025-09-15 13:29:00.000 118 mm [Hg] Systolic Blood Pressure 2025-09-09 10:57:00.000 101 mm [Hg] Systolic Blood Pressure 2025-09-07 10:17:00.000 100 mm [Hg] Diastolic Blood Pressure 2025-09-29 12:07:00.000 65 mm [Hg] Diastolic Blood Pressure 2025-09-15 13:29:00.000 [...] DR.RUDY SEPULVEDA. RN TO OBSERVE AND ASSESS, EAP COUNSELOR/FIRE TECHNICIAN TO OBSERVE FOR RISK FOR FALLS AND INSTRUCT IN FALL PREVENTION, HOME SAFETY, MEDICATION MANAGEMENT, INFECTION PREVENTION, AND NUTRITION MANAGEMENT. RN/EAP COUNSELOR/FIRE TECHNICIAN NURSE MAY PERFORM O2 SATURATION LEVEL ON ADMISSION AND PRN FOR RN TO ASSESS/EAP COUNSELOR TO OBSERVE PATIENT, WITH NOTIFICATION TO THE PHYSICIAN IF SATURATION IS 90% IN THE ABSENCE OF MORE SPECIFIC PARAMETERS FROM THE PHYSICIAN. AGENCY MAY PERFORM A RESUMPTION OF CARE VISIT FOLLOWING ANY HOSPITAL ADMISSION. RN/EAP COUNSELOR/FIRE TECHNICIAN TO MONITOR CO-MORBID CONDITIONS LISTED ON THE PLAN OF CARE AND ANY NEW CONDITIONS THAT PRESENT THEMSELVES DURING THIS EPISODE TO IDENTIFY CHANGES AND INTERVENE TO MINIMIZE COMPLICATIONS. [code = RN TO OBSERVE, ASSESS, EVALUATE, AND DEVELOP AN INDIVIDUALIZED PLAN OF CARE. AGENCY MAY ACCEPT ORDERS FROM CONSULTING PHYSICIANS , , , DR.MARIA BROWN, DR.RUDY SEPULVEDA. RN TO OBSERVE AND ASSESS, EAP COUNSELOR/FIRE TECHNICIAN TO OBSERVE FOR RISK FOR FALLS AND INSTRUCT IN FALL PREVENTION, HOME SAFETY, MEDICATION MANAGEMENT, INFECTION PREVENTION, AND NUTRITION MANAGEMENT. RN/EAP COUNSELOR/FIRE TECHNICIAN NURSE MAY PERFORM O2 SATURATION LEVEL ON ADMISSION AND PRN FOR RN TO ASSESS/EAP COUNSELOR TO OBSERVE PATIENT, WITH NOTIFICATION TO THE PHYSICIAN IF SATURATION IS 90% IN THE ABSENCE OF MORE SPECIFIC PARAMETERS FROM THE PHYSICIAN. AGENCY MAY PERFORM A RESUMPTION OF CARE VISIT FOLLOWING ANY HOSPITAL ADMISSION. RN/EAP COUNSELOR/FIRE TECHNICIAN TO MONITOR CO-MORBID CONDITIONS LISTED ON THE PLAN OF CARE AND ANY NEW CONDITIONS THAT PRESENT THEMSELVES DURING THIS EPISODE TO IDENTIFY CHANGES AND INTERVENE TO MINIMIZE COMPLICATIONS.] Future Scheduled Test MEDICATION MANAGEMENT; RN/EAP COUNSELOR/FIRE TECHNICIAN TO REVIEW MEDICATIONS FOR INTERACTIONS, EFFECTIVENESS OF DRUG THERAPY, AND SIGNS/SYMPTOMS OF ADVERSE REACTIONS. MAY INSTRUCT AND REINFORCE MEDICATION TEACHING RELATED TO THE USE OF MEDICATIONS, DOSAGE, FREQUENCY, PURPOSE, SIDE EFFECTS, AND TO REPORT COMPLICATIONS. [code = MEDICATION MANAGEMENT; RN/EAP COUNSELOR/FIRE TECHNICIAN TO REVIEW MEDICATIONS FOR INTERACTIONS, EFFECTIVENESS OF DRUG THERAPY, AND SIGNS/SYMPTOMS OF ADVERSE REACTIONS. MAY INSTRUCT AND REINFORCE MEDICATION TEACHING RELATED TO THE USE OF MEDICATIONS, DOSAGE, FREQUENCY, PURPOSE, SIDE EFFECTS, AND TO REPORT COMPLICATIONS.] Future Scheduled Test CARDIOVASC ULAR SYSTEM; RN TO ASSESS/TEACH, EAP COUNSELOR/FIRE TECHNICIAN TO OBSERVE/TEACH RELATED TO ALTERED CARDIOVASCULAR STATUS TO MINIMIZE COMPLICATIONS AND REDUCE HOSPITALIZATION. [code = CARDIOVASCULAR SYSTEM; RN TO ASSESS/TEACH, EAP COUNSELOR/FIRE TECHNICIAN TO OBSERVE/TEACH RELATED TO ALTERED CARDIOVASCULAR STATUS TO MINIMIZE COMPLICATIONS AND REDUCE HOSPITALIZATION.] Future Scheduled Test HEART FAIL URE; RN TO ASSESS/TEACH, EAP COUNSELOR/FIRE TECHNICIAN TO OBSERVE/TEACH CARDIOPULMONARY SYSTEM TO IDENTIFY SIGNS [...] [code = HEART FAILURE; RN TO ASSESS/TEACH, EAP COUNSELOR/FIRE TECHNICIAN TO OBSERVE/TEACH CARDIOPULMONARY SYSTEM TO IDENTIFY SIGNS [...] ACUTE MYOC ARDIAL INFARCT; RN TO ASSESS/TEACH, EAP COUNSELOR/FIRE TECHNICIAN TO OBSERVE/TEACH WARNING SIGNS AND SYMPTOMS TO AVOID HOSPITALIZATION. [code = ACUTE MYOCARDIAL INFARCT; RN TO ASSESS/TEACH, EAP COUNSELOR/FIRE TECHNICIAN TO OBSERVE/TEACH WARNING SIGNS AND SYMPTOMS TO AVOID HOSPITALIZATION.] Future Scheduled Test PHYSICAL T HERAPIST TO EVALUATE FOR STRENGTH, GAIT, ENDURANCE,BALANCE [code = PHYSICAL THERAPIST TO EVALUATE FOR STRENGTH, GAIT, ENDURANCE,BALANCE] Future Scheduled Test OCCUPATION AL THERAPIST TO EVALUATE FOR ADLS AND IADLS [code = OCCUPATIONAL THERAPIST TO EVALUATE FOR ADLS AND IADLS] Future Scheduled Test PRN VISITS ; NUMBER OF RN/EAP COUNSELOR/FIRE TECHNICIAN VISITS: 2 RN/EAP COUNSELOR/FIRE TECHNICIAN TO PERFORM: EVALUATE FOR FLUID OVERLOAD FOR THE FOLLOWING REASONS: RECENT DIAGNOSIS OF CHF [code = PRN VISITS; NUMBER OF RN/EAP COUNSELOR/FIRE TECHNICIAN VISITS: 2 RN/EAP COUNSELOR/FIRE TECHNICIAN TO PERFORM: EVALUATE FOR FLUID OVERLOAD FOR THE FOLLOWING REASONS: RECENT DIAGNOSIS OF CHF] Future Scheduled Test PAIN MANAG EMENT; RN TO ASSESS AND TEACH, FIRE TECHNICIAN/EAP COUNSELOR TO OBSERVE AND TEACH AND PROVIDE EDUCATION ON PAIN MANAGEMENT TECHNIQUES. [code = PAIN MANAGEMENT; RN TO ASSESS AND TEACH, FIRE TECHNICIAN/EAP COUNSELOR TO OBSERVE AND TEACH AND PROVIDE EDUCATION ON PAIN MANAGEMENT TECHNIQUES.] Future Scheduled Test AGENCY MAY PERFORM A RESUMPTION OF CARE VISIT FOLLOWING ANY HOSPITAL ADMISSION. OT TO EVALUATE, OBSERVE / ASSESS, AND MONITOR, AMALIA TO OBSERVE AND MONITOR, PROVIDE SKILLED THERAPEUTIC INTERVENTION, ACTIVITY, EDUCATION, AND TRAINING TO ADDRESS ADLS/IADLS, ADAPTIVE EQUIPMENT, STRENGTHENING, BALANCE, AND FUNCTIONAL TRANSFERS TO MAXIMIZE SAFETY AND FUNCTIONAL INDEPENDENCE IN HOME PERSONAL HYGIENE/GROOMING (OT/ETHANOL OPERATIONS MANAGER) BATHING/SHOWERING (OT/AMALIA) DRESSING (OT/ETHANOL OPERATIONS MANAGER) ACTIVITIES OF DAILY LIVING (OT/AMALIA) TOILET TRANSFER (OT/AMALIA) BATH/SHOWER TRANSFER (OT/ETHANOL OPERATIONS MANAGER) THERAPEUTIC EXERCISE (OT/AMALIA) OT/ETHANOL OPERATIONS MANAGER MAY EDUCATE ON PAIN MANAGEMENT CLINICALLY INDICATED, INCLUDING NON-PHARMACOLOGICAL PAIN REDUCTION TECHNIQUES AND USE OF CRYOTHERAPY OR HEAT UP TO 20 MIN AT A TIME FOR PAIN MANAGEMENT TO MAXIMIZE [code = AGENCY MAY PERFORM A RESUMPTION OF CARE VISIT FOLLOWING ANY HOSPITAL ADMISSION. OT TO EVALUATE, OBSERVE / ASSESS, AND MONITOR, AMALIA TO OBSERVE AND MONITOR, PROVIDE SKILLED THERAPEUTIC INTERVENTION, ACTIVITY, EDUCATION, AND TRAINING TO ADDRESS ADLS/IADLS, ADAPTIVE EQUIPMENT, STRENGTHENING, BALANCE, AND FUNCTIONAL TRANSFERS TO MAXIMIZE SAFETY AND FUNCTIONAL INDEPENDENCE IN HOME PERSONAL HYGIENE/GROOMING (OT/AMALIA) BATHING/SHOWERING (OT/AMALIA) DRESSING (OT/AMALIA) ACTIVITIES OF DAILY LIVING (OT/ETHANOL OPERATIONS MANAGER) TOILET TRANSFER (OT/ETHANOL OPERATIONS MANAGER) BATH/SHOWER TRANSFER (OT/AMALIA) THERAPEUTIC EXERCISE (OT/ETHANOL OPERATIONS MANAGER) OT/ETHANOL OPERATIONS MANAGER MAY EDUCATE ON PAIN MANAGEMENT CLINICALLY INDICATED, [...] EVIDENCED BY REDUCED PAIN IN BUE FROM 8/10 TO 0/10 WITHIN WEEKS Encounters Start Date/Time End Date/Time Encounter Type Admission Type Attending [facility] Care Facility Care Department Encounter ID Discharge Date Discharge Status Discharge Condition Discharge Reason Percent Goals Met 2025-09-07 00:00:00 2025-11-05 00:00:00 Outpatient NICOLE ARREOLA [facility] [id number] 100.00
== END 2025-10-16 23:59 | disposition home or self-care (01) ==
LOC: LAB.DROPOF 09:26
PROVIDERS: PCP Family Medicine; Visit Provider Family Medicine
DX: E87.1 Hypo-osmolality and hyponatremia (principal)
CPT/HCPCS: 36415; 80048

== ENCOUNTER 2025-10-19 08:26 | Outpatient (CLI) | payer MEDICARE, OTHER, SELFPAY ==
--- OUTSIDE RECORDS SUMMARY | 2025-05-07 10:45 | XMS_ITS ---
Author Organization [facility] Address [address] [place] [phone] Care Team Providers Care Track Equipment Operator Name Role Phone Raul Torres Primary Care [...] Encounter Location Date Provider Diagnosis [facility] [address] [place] [phone] 05/07/2025 Raul Torres Inflammatory polyarthropathy M06.4 Assessments [...] ge:79 Y S ex:Female Date:05/07/2025 Address:[address], [place], [id number] Subjective: * Chief Complaints: * 1 . Cortisone shot. * HPI: R heumatology: She returns with a flare of joint pain in multiple joints, specifically her hands, elbows, shoulders, hips, and knees. She continues on daily prednisone and Plaquenil per her construction manager. * ROS: D ERMATOLOGY: no R jodi. n o H bere. G ASTROENTEROLOGY: Nausea y es. n o V omiting. n o D iarrhea.? U ROLOGY: no D ifficulty urinating. n o B lood in urine. * Medical History: h yperlipidemia-followed by Dr. Arrington, Hypertension, Hypothyroidism/goiter, Kidney stones, Allergic rhinitis, ASCVD: [place] - 09/2013-followed by Dr. Arrington q 6 months, Cataracts, Hyperuricemia, Inflammatory arthritis - Dr. Cheng, polymyalgia rheumatica - Dr. Cheng, Moderna Covid vaccine x2 Oct/Nov 2020. * Surgical History: T hyroidectomy/Goiter removal 1999, Back 2001, Total Hysterectomy 1992, Tonsillectomy child, Cardiac Stent Placed-[facility]-Dr Arrington. Dr. Santo 10/19/2013, Cataract 10/2017. * Hospitalization/Major Diagno stic Procedure: k idney stones 1992, Heart Attack- [place] 09/2013, Facial Pain, Sinus Blockage- [facility] 04/24/2018, Itching, Swelling in Hands- [facility] 10/21/2018, Multiple rib and pelvic fractures; hyponatremia; rheumatoid arthritis; ASCVD- 06/30-, Dehydration, Failure to Thrive, Acute Urinary Retention- [facility] 07/14-, H : fall with multiple [...] on, J1010 Inj, methylpred acetate 1 mg, 26737 ADMINISTRATION OF INJECTION * Follow Up: p rn * Images: Billing Information: * Visit Code: 42467 Office Visit, Est Pt., Level 3. Modifiers: 25 * Procedure Codes: G2211 Complex e/m visit add on. J1010 Inj, methylpred acetate 1 mg. 91149 ADMINISTRATION OF INJECTION. * Electronic signature of Raul Torres MD on 10/19/2025 at 08:34 AM EST Sign off status: Pending * Provider: Raul Torres M.D. Date: 0 05/07/2025 Generated for Jerry panda/Kerwin/Adrianitting on: 1 08:34 AM EST History and Physical Notes * HPI (History of Present Illness) Category Sub-Category Detail Notes Category Not es Rheumatology She returns wit h a flare of joint pain in multiple joints, specifically her hands, elbows, shoulders, hips, and knees. She continues on daily prednisone and Plaquenil per her construction manager. Examination Category Sub-Category Detail Notes Category Not es General Examination Heart: RSR Lungs: clear to auscultatio n Extremities: Chronic deformity wi th mild swelling of the joints of both hands. General Appearance: She ambulates with a walker. Affect is a bit more subdued
--- OUTSIDE RECORDS SUMMARY | 2025-05-19 05:00 | XMS_ITS ---
Author Organization [facility] Address [address] [facility] [address] [place] [phone] Care Team Providers Care Real Estate Administrator Name Role Phone Raul Torres Primary Care Provider [phone] Allergies Allergen (clinical drug ingredient) Drug/Non Drug [...] Active Results Component Value Reference Range Notes P-Basic Metabolic Panel (BMP ) Reviewed date:05/26/2025 10:23:05 PM Interpretation:Na 122, cl 86, gluc 102 Performing Lab: Notes/Report: Test performed by [facility] , [address], [place] [address] Gilmer Lowe MD, Casino Supervisor CLIA: [id number] Sodium 122 135-145 mmol/L Potassium 4.2 3.5-5.3 mmol/L Chloride 86 97-108 mmol/L CO2 25 20-32 mmol/L Glucose 102 65-99 mg/dL BUN 19 8-23 mg/dL Creatinine 0.85 0.50-1.00 mg/dL Calcium 9.5 8.6-10.4 mg/dL eGFR by Creatinine 70 >59 mL/min/1.73m2 REASON FOR VISIT 1 month Medications Medication SIG (Take, Route, Frequency, Duration) Notes Start Date End Date Status Meclizine HCl 12.5 MG 1 tab(s) Orally th ree times a day as needed; Duration: 30 day(s) 11/13/2024 Not-Taking Benzonatate 100 MG 1 capsule as needed Orally Three times a day 04/16/2025 Not-Taking Amoxicillin 500 MG 1 tablet Orally Thre e times a day 04/16/2025 Not-Taking Senna S 8.6-50 MG 2 tablet as needed Orally Twice a day Not-Taking ZyrTEC Allergy 10 MG 1 tab(s) orally onc e a day Not-Taking Chlorthalidone 12.5 MG 1 tablet in the morning with food Orally daily; Duration: 90 days Active Cyclobenzaprine HCl 5 MG 1 tab 3 times a day As needed Active Pravastatin Sodium 40 MG 1 tablet Orally Once a day Active Potassium Chloride Cathy ER 10 MEQ 1 tablet with food Orally Twice a day; Duration: 90 days Active Ondansetron HCl 4 MG 1 tablet Orally 3 times a day prn 01/24/2024 Active Levothyroxine Sodium 112 MCG 1 tablet in the morning on an empty stomach Orally Once a day; Duration: 90 days Active Hyoscyamine Sulfate 0.125 MG 1 tab(s) Orally four times a day as needed for diarrhea 11/13/2024 Active traMADol HCl 50 MG 1 tab(s) Orally q6h prn 08/01/2024 Active Tamsulosin HCl 0.4 MG 1 capsule Orally O nce a day Active Lidocaine 5 % 1 patch remove after 12 hours Externally Once a day 02/17/2025 Active Carvedilol 12.5 MG 1 tab(s) Orally 2 times a day Active Acetaminophen 500 MG 1 capsule as needed Orally every 6 hrs prn Active predniSONE 5 MG 1 tab orally once a day Active Melatonin 3 MG 1 tablet in the evening at HS Active Aspirin Adult Low Dose 81 MG 1 tab(s) orally once a day Active Plaquenil 200 MG 1 tab(s) orally daily Active Vital Signs Blood pressure systolic 114 mm Hg 05/19/20 25 Blood pressure diastolic 70 mm Hg 025 Heart Rate 55 /min 05/19/2025 Height 65 in 05/19/2025 Weight 143.8 lbs 05/19/2025 BMI 23.93 kg/m2 05/19/2025 Encounters Encounter Location Date Provider Diagnosis [facility] [address] [place] [phone] 05/19/2025 Raul Torres Hyponatremia E87.1 ; Muscle weakness M62.81 and BMI 23.0-23.9, adult Z68.23 Assessments Encounter Date Diagnosis (ICD Code) Assessment Notes Treatment Notes Treatment Clinical Notes Section Notes 05/19/2025 Hyponatremia (ICD-10 - E87.1) 05/19/2025 Muscle weakness (ICD-10 - M62.81) 05/19/2025 BMI 23.0-23.9, adult (ICD-10 - Z68.23) Plan Of Treatment Next Appt Details Follow Up: 2 Months, Reason: Progress Notes * Andry HUYNHDOB: [birth year] (79 yo F)Acc No.[id number]:05/19/2025 Progress Notes Patient: Andry PANIAGUA Provider: Raul Torres M.D. :1945 A ge:79 Y S ex:Female Date:05/19/2025 Address:[address] [facility], [place], [id number] Subjective: * Chief Complaints: * 1 . 1 month. * HPI: H PI: She comes in for scheduled follow-up and repeat labs to monitor her hyponatremia. She continues with physical therapy and feels that her legs are getting stronger but still has weakness in her arms. She continues using the rollator walker but would like to try transitioning to a cane. C ardiology: Denies : Chest Pain. D enies : Short of Breath. D enies : Dizziness. D enies : Palpitations. * ROS: D ERMATOLOGY: no R jodi. n o H bere. G ASTROENTEROLOGY: no N ausea. n o V omiting. n o D [...] Total Hysterectomy 1992, Tonsillectomy child, Cardiac Stent Placed-[facility]-Dr Arrington. Dr. Santo 10/19/2013, Cataract 10/2017. * Hospitalization/Major Diagno stic Procedure: k idney stones 1992, Heart Attack- [place] 09/2013, Facial Pain, Sinus Blockage- [facility] 04/24/2018, Itching, Swelling in Hands- [facility] 10/21/2018, Multiple rib and pelvic fractures; hyponatremia; rheumatoid arthritis; ASCVD- 06/30-, Dehydration, Failure to Thrive, Acute Urinary Retention- [facility] 07/14-, [facility] : fall with multiple FX ribs [...] ,determination:. Alcohol: No. * Medications: T aking Plaquenil 200 MG Tablet 1 tab(s) orally daily , Taking predniSONE 5 MG Tablet 1 tab orally once a day , Taking Acetaminophen 500 MG [...] 1 tab(s) Orally q6h prn , Taking Lidocaine 5 % Patch 1 [...] Percocet, Lortab. Objective: * Vitals: W t: 143.8, Temp: 98.2, BP: 114/70, HR: 55, Nurse: DANIEL, Ht: 65, BMI:23.93. * Examination: G eneral Examination: General Appearance: N AD. H eart: R SR. L ungs:?clear to auscultation. E xtremities: n o leg edema. Assessment: * Assessment: 1. H yponatremia - E87.1 (Primary) 2 . M uscle weakness - M62.81 3 . B [place] 23.0-23.9, adult - Z68.23 Plan: * Treatment: Value Reference Range B UN 19 8-23 - mg/dL * C alcium 9.5 8.6-10.4 - mg/dL * C hloride 86 L 97-108 - mmol/L * C O2 25 20-32 - mmol/L * C reatinine 0.85 0.50-1.00 - mg/dL * G lucose 102 H 65-99 - mg/dL * P otassium 4.2 3.5-5.3 - mmol/L * S odium 122 L 135-145 - mmol/L * e GFR by Creatinine 70 >59 - mL/min/1.73m2 * Raul Torres 05/26/2025 1 0:22:34 PM EDT > results reviewed with patient while in the office today * Procedure Codes: G 2211 Complex e/m visit add on, 1036F TOBACCO NON-USER, G8420 BMI<30 AND >=22 CALC & DOCU, G8783 BP SCR PRFRM RCMDD DEFIND SCR INTVL, G8752 MOST RECENT SYSTOLIC BP < 140MM HG, G8754 MOST RECENT DIASTOLIC BP < 90MM HG * Follow Up: 2 Months * Images: Billing Information: * Visit Code: 05542 Office Visit, Est Pt., Level 3. * Procedure Codes: G2211 Complex e/m visit add on. 1036F TOBACCO NON-USER. G8420 BMI<30 AND >=22 CALC & DOCU. G8783 BP SCR PRFRM RCMDD DEFIND SCR INTVL. G8752 MOST RECENT SYSTOLIC BP < 140MM HG. G8754 MOST RECENT DIASTOLIC BP < 90MM HG. * Electronic signature of Raul Torres MD on 10/19/2025 at 08:33 AM EST Sign off status: Pending * Provider: Raul Torres M.D. Date: 0 05/19/2025 Generated for Jerry panda/Kerwin/Arthur on: 08:33 AM EST History and Physical Notes * HPI (History of Present Illness) Category Sub-Category Detail Notes Category Not es Cardiology Short of Breath Chest Pain Palpitations Dizziness HPI She comes in fo scheduled follow-up and repeat labs to monitor her hyponatremia. She continues with physical therapy and feels that her legs are getting stronger but still has weakness in her arms. She continues using the rollator walker but would like to try transitioning to a cane. Examination Category Sub-Category Detail Notes Category Not es General Examination Heart: RSR Lungs: clear to auscultatio n Extremities: no leg edema General Appearance: NAD
--- OUTSIDE RECORDS SUMMARY | 2025-05-26 09:45 | XMS_ITS ---
Author Organization [facility] Address [address] [place] [phone] Care Team Providers Care Veneer Jointer Operator Name Role Phone Raul Torres Primary Care Provider [phone] Allergies Allergen (clinical drug ingredient) Drug/Non Drug [...] Referring Provider Last Name Melissa Referring Provider [facility] ctice Referred Provider Endocrinology, . Referred Provider Specialty Endocrinolog y General Notes Keira Burger 2024 10:04:16 AM > faxed to [facility] Endo Referral Priority Routine Reason memory loss/ confusi on Diagnosis 1 Memory loss (R41.3) Referral Organization Jared Referring Provider First Name Raul Lopez Referring Provider Last Name Melissa Referring Provider [facility] ctice Referred Provider Radha Ignacio Referred Provider [...] W/U Status Risk Notes Problem Memory loss (48574027) Memory loss (R41.3) Active confirmed Vital Signs Blood pressure systolic 110 mm Hg 05/26/20 25 Blood pressure diastolic 76 mm Hg 025 Heart Rate 72 /min 05/26/2025 Height 65 in 05/26/2025 Weight 146.2 lbs 05/26/2025 BMI 24.33 kg/m2 05/26/2025 Encounters Encounter Location Date Provider Diagnosis [facility] [address] [place] [phone] 05/26/2025 Raul Torres Hyponatremia E87.1 ; Memory [...] :1945 A ge:79 Y S ex:Female Date:05/26/2025 Address:[address] [place] [address], [place], [id number] Subjective: * Chief Complaints: * 1 . [...] Hypertension, Hypothyroidism/goiter, Kidney stones, Allergic rhinitis, ASCVD: [place] - 09/2013-followed by Dr. Arrington q 6 months, Cataracts, Hyperuricemia, Inflammatory arthritis - Dr. Cheng, polymyalgia rheumatica - Dr. Cheng, Moderna Covid vaccine x2 Oct/Nov 2020. * Surgical History: T hyroidectomy/Goiter removal 1999, Back 2001, Total Hysterectomy 1992, Tonsillectomy child, Cardiac Stent Placed-[facility]-Dr Arrington. Dr. Santo 10/19/2013, Cataract 10/2017. * Hospitalization/Major Diagno stic Procedure: k idney stones 1992, Heart Attack- [place] 09/2013, [facility] [...] M yvette loss - R41.3 ?3. B [place] 24.0-24.9, adult - Z68.24 Plan: * Treatment: [...] * Images: Billing Information: * Visit Code: 56253 Office Visit, Est Pt., Level 3. * [...] M.D. Date: 0 05/26/2025 Generated for Jerry panda/Kerwin/eTjovanismitting on: 1 08:33 AM EST History and Physical Notes [...]
--- OUTSIDE RECORDS SUMMARY | 2025-05-28 03:20 | XMS_ITS ---
Author Organization [facility] Address 1210 [facility] [address] [place], [place] [phone] Care Team Providers Care Business Administration Teacher Name Role Phone Raul Torres Primary Care [...] Status Risk Notes Problem Altered mental status (148829783) Altered mental state (R41.82) Active confirmed Encounters Encounter Location Date Provider Diagnosis [facility] [address] [place] [phone] 05/28/2025 Raul Torres Altered mental state R41.82 [...] Date:05/28/2025 Address:[address], [id number] Subjective: * Chief Complaints: * 1 . [...] Information: * Visit Code: * Procedure Codes: 79172 Urinalysis, no micro. * Electronic signature of Raul Torres MD on 10/19/2025 at 08:34 AM EST Sign off status: Pending * Provider: Raul Torres M.D. Date: 0 05/28/2025 Generated for Jerry panda/Kerwin/Mikeransmitting on: 08:34 AM EST
--- OUTSIDE RECORDS SUMMARY | 2025-06-16 11:30 | XMS_ITS ---
Author Organization [facility] Address [address] [facility] [address] [place] [id number] Care Team Providers Care Commercial Loan Processor Name Role Phone Raul Torres Primary Care Provider [phone] Allergies Allergen (clinical drug ingredient) Drug/Non Drug [...] nausea Drug Allergy Active REASON FOR VISIT problem with meds, needs bone density, colon cancer screening, mammogram and LDCT scan Medications Medication SIG (Take, Route, Frequency, Duration) Notes Start Date End Date Status Tamsulosin HCl 0.4 MG 1 capsule Orally O nce a day; Duration: 90 days Active Cyclobenzaprine HCl 5 MG 1 tab 3 times a day As needed Active Chlorthalidone 12.5 MG 1 tablet in the m orning with food Orally daily; Duration: 90 days Active Potassium Chloride Cathy ER 1 0 MEQ 1 tablet with food Orally Twice a day; Duration: 90 days Active Benzonatate 100 MG 1 capsule as needed Orally Three times a day 05/29/2025 Active Melatonin 3 MG 1 tablet in the even ing at HS Active traMADol HCl 50 MG 1 tab(s) Orally q6h prn 024 Active Lidocaine 5 % 1 patch remove after 12 hours Externally Once a day 02/17/2025 Active Levothyroxine Sodium 112 MCG 1 tablet in the morning on an empty stomach Orally Once a day; Duration: 90 days Active Pravastatin Sodium 40 MG 1 tablet Orally Once a day Active Aspirin Adult Low Dose 81 MG 1 tab(s) or ally once a day Active Plaquenil 200 MG 1 tab(s) orally daily Active predniSONE 5 MG 1 tab orally once a day Active Acetaminophen 500 MG 1 capsule as needed Orally every 6 hrs prn Active Carvedilol 12.5 MG 1 tab(s) Orally 2 ti mes a day Active Ondansetron HCl 4 MG 1 tablet Orally 3 t imes a day prn Active Hyoscyamine Sulfate 0.125 MG 1 tab(s) Or ally four times a day as needed for diarrhea Active Vital Signs Blood pressure systolic 114 mm Hg 06/16/20 25 Blood pressure diastolic 70 mm Hg 025 Heart Rate 76 /min 06/16/2025 Height 65 in 06/16/2025 Weight 152.2 lbs 06/16/2025 BMI 25.32 kg/m2 06/16/2025 Encounters Encounter Location Date Provider Diagnosis [facility] [address] [facility] [address] [place] [address], [place] [id number] 06/16/2025 Raul Torres Rheumatoid arthritis M06.9 ; Leg edema R60.0 and Hyponatremia E87.1 Assessments Encounter Date Diagnosis (ICD Code) Assessment Notes Treatment Notes Treatment Clinical Notes Section Notes 06/16/2025 Rheumatoid arthritis (ICD-10 - M06.9) 06/16/2025 Leg edema (ICD-10 - R60.0) 06/16/2025 Hyponatremia (ICD-10 - E87.1) Plan Of Treatment Next Appt Details Follow Up: 2 Months, Reason: Medications Administered Medication Instructions Date of Administration Dosage Notes Depo- Medrol 40 mg/ml 06/16/2025 1 mL Progress Notes * Andry HUYNHDOB: 7 (79 yo F)Acc No.[id number]:06/16/2025 Progress Notes Patient: Andry PANIAGUA Provider: Raul Torres M.D. :1945 A ge:79 Y S ex:Female Date:06/16/2025 Address:[address], [place], [id number] Subjective: * Chief Complaints: * 1 . Problem with meds. 2. needs bone density, colon cancer screening, mammogram and LDCT scan. * HPI: C ardiology: She is having recurring problems with swelling in her feet and legs since stopping the chlorthalidone. She did meet with Dr. Lee regarding her hyponatremia. Please refer to consult note in chart. She suspects secondary adrenal insufficiency because of chronic steroid use. She would like for Andry to discontinue prednisone for a month to allow further testing but Andry declined because of her severe arthritic pain. She does not wish to follow-up with Dr. Lee. N eurology: Her appointment with Dr. Ignacio regarding her memory is still pending. * ROS: D ERMATOLOGY: no R jodi. n o H bere. G ASTROENTEROLOGY: no N ausea. n o V omiting. n o D iarrhea.? U ROLOGY: no D ifficulty urinating. n o B lood in urine. * Medical History: h yperlipidemia-followed by Dr. Arrington, Hypertension, Hypothyroidism/goiter, Kidney stones, Allergic rhinitis, ASCVD: [place] - 09/2013-followed by Dr. Arrington q 6 months, Cataracts, Hyperuricemia, Inflammatory arthritis - Dr. Cheng, polymyalgia rheumatica - Dr. Cheng, Moderna Covid vaccine x2 Oct/Nov 2020. * Surgical History: T hyroidectomy/Goiter removal 1999, Back 2001, Total Hysterectomy 1992, Tonsillectomy child, Cardiac Stent Placed-[facility]-Dr Arrington. Dr. Santo 10/19/2013, Cataract 10/2017. * Hospitalization/Major Diagno stic Procedure: k idney stones 1992, Heart Attack- [place] 09/2013, Facial Pain, Sinus Blockage- [facility] ER 04/24/2018, Itching, Swelling in Hands- [facility] ER 10/21/2018, Multiple rib and pelvic fractures; hyponatremia; rheumatoid arthritis; ASCVD- 06/30-, Dehydration, Failure to Thrive, Acute Urinary Retention- [facility] 07/14-, H : fall with multiple [...] use: yes. Past smoking status: previous history, PPD:10/23 , years: ,determination:. Alcohol: No. * Medications: [...] hours Externally Once a day , Taking Levothyroxine Sodium 112 MCG Tablet [...] morning with food Orally daily , Taking Potassium Chloride Cathy ER 10 MEQ Tablet Extended Release 1 tablet with food Orally Twice a day , Taking Benzonatate 100 MG Capsule 1 capsule as needed Orally Three times a day , Taking Tamsulosin HCl 0.4 MG Capsule 1 capsule Orally Once a day , Taking Ondansetron HCl 4 MG Tablet 1 tablet Orally 3 times a day prn , Taking Hyoscyamine Sulfate 0.125 MG Tablet 1 tab(s) Orally four times a day as needed for diarrhea , Medication List reviewed and reconciled with the patient * Allergies: D econgestant: hives, Sulfa Antibiotics: nausea, Augmentin: nausea, Zithromax: itching - Allergy, Naprosyn: rash - Allergy, Amoxicillin: high dose causes nausea - Side Effects, Cefaclor: nausea - Allergy, Cefdinir: GI upset - Side Effects, Cymbalta: GI upset - Side Effects, Gabapentin: itching - Allergy, Percocet, Lortab. Objective: * Vitals: W t: 152.2, Temp: 97.7, BP: 114/70, HR: 76, Nurse: pe, Ht: 65, BMI:25.32. * Examination: G eneral Examination: General Appearance: N AD. H eart: R SR. L ungs:?clear to auscultation. E xtremities: 1 + pedal and ankle edema bilaterally.. ? Assessment: * Assessment: 1. R heumatoid arthritis - M06.9 (Primary) 2 . L eg edema - R60.0 ? 3 . H yponatremia - E87.1 Plan: * Treatment: * Therapeutic Injections: Depo- Medrol 40 mg/ml : 1 mL (Route: Intramuscular) given by SALOMON Quigley on right deltoid (Rheumatoid arthritis) * Procedure Codes: G 2211 Complex e/m visit add on, J1010 Inj, methylpred acetate 1 mg, 33697 ADMINISTRATION OF INJECTION * Follow Up: 2 Months * Images: Billing Information: * Visit Code: 46338 Office Visit, Est Pt., Level 3. Modifiers: 25 * Procedure Codes: G2211 Complex e/m visit add on. J1010 Inj, methylpred acetate 1 mg. 79602 ADMINISTRATION OF INJECTION. * Electronic signature of Raul Torres MD on 10/19/2025 at 08:34 AM EST Sign off status: Pending * Provider: Raul Torres M.D. Date: 0 06/16/2025 Generated for Jerry panda/Kerwin/Adrianitting on: 1 08:34 AM EST History and Physical Notes * Examination Category Sub-Category Detail Notes Category Not es General Examination Heart: RSR Lungs: clear to auscultatio n Extremities: 1+ pedal and ankle e stephanie bilaterally. General Appearance: NAD
--- OUTSIDE RECORDS SUMMARY | 2025-07-15 06:25 | XMS_ITS ---
Author Organization [facility] Address [address] [place] [id number] Care Team Providers Care Linoleum Floor Installer Name Role Phone Raul Torres Primary Care Provider [phone] REASON FOR VISIT flu shot Medications Medication [...] Administered Encounters Encounter Location Date Provider Diagnosis [facility] [address] [facility] [address] [place] [id number] 07/15/2025 Raul Torres Encounter for immunization Z23 Assessments Encounter Date Diagnosis (ICD Code) Assessment Notes Treatment Notes Treatment Clinical Notes Section Notes 07/15/2025 Encounter for immunization (ICD-10 - Z23) Plan Of Treatment No Information Progress Notes * LINO AndryDOB: 7 (79 yo F)Acc No.[id number]:07/15/2025 Patient: Andry PANIAGUA Provider: Raul Torres M.D. :1945 A ge:79 Y S ex:Female Date:07/15/2025 Address:[address] [place] [address], [place], [id number] Subjective: * Chief Complaints: * 1 [...] of Raul Torres MD on 10/19/2025 at 08:32 AM EST Sign off status: Pending * Provider: Raul Torres M.D. Date: 0 07/15/2025 Generated for Jerry panda/Kerwin/Arthur on: 08:32 AM EST
--- OUTSIDE RECORDS SUMMARY | 2025-07-21 05:45 | XMS_ITS ---
Author Organization Jared Address [address] [facility] [address] [place] [id number] Care Team Providers Care Rockboard Lather Name Role Phone Raul Torres Primary Care Provider REASON FOR VISIT foot still swelling Encounters Encounter Location Date Provider Diagnosis [facility] [address] [place] [phone] 07/21/2025 Raul Torres Plan Of Treatment No Information Progress Notes * Andry HUYNHDOB: 7 (79 yo F)Acc No.[id number]:07/21/2025 Progress Notes Patient: Andry PANIAGUA Provider: Raul Torres M.D. :1945 A ge:79 Y S ex:Female Date:07/21/2025 Address:[address], [place], [id number] Subjective: * Chief Complaints: * 1 . Foot still swelling. * Medical History: Objective: * Vitals: Assessment: Plan: * Treatment: * Images: Billing Information: * Visit Code: * Procedure Codes: * Electronic signature of Raul Torres MD on 10/19/2025 at 08:32 AM EST Sign off status: Pending * Provider: Raul Torres M.D. Date: 07/21/2025 Generated for Jerry panda/Kerwin/Arthur on: 08:32 AM EST
--- OUTSIDE RECORDS SUMMARY | 2025-08-04 09:30 | XMS_ITS ---
Author Organization [facility] Address [address] [place] [id number] Care Team Providers Care Cold Mill Inspector Name Role Phone Raul Torres Primary Care Provider REASON FOR VISIT [facility] F/U Discharge Encounters Encounter Location Date Provider Diagnosis [facility] [address] [place] [id number] 08/04/2025 Raul Torres Plan Of Treatment No Information Progress Notes * Andry HUYNHDOB: [birth year] (79 yo F)Acc No.[id number]:08/04/2025 Patient: Andry PANIAGUA Provider: Raul Torres M.D. :1945 A ge:79 Y S ex:Female Date:08/04/2025 Address:[address] [place], [place], [id number] Subjective: * Chief Complaints: * 1 . H F/U Discharge. * Medical History: Objective: * Vitals: Assessment: Plan: * Treatment: * Images: Billing Information: * Visit Code: * Procedure Codes: * Electronic signature of Raul Torres MD on 10/19/2025 at 08:32 AM EST Sign off status: Pending * Provider: Raul Torres M.D. Date: Generated for Jerry panda/Kerwin/Arthur on: 08:32 AM EST
--- OUTSIDE RECORDS SUMMARY | 2025-09-03 05:45 | XMS_ITS ---
Author Organization [facility] Address [address] [place] [phone] Care Team Providers Care Food Service Director Name Role Phone Raul Torres Primary [...] W/U Status Risk Notes Problem Coronary arteriosclerosis ([id number]) ASCVD (arteriosclerotic cardiovascular disease) (I25.10) Active confirmed Vital Signs Blood pressure systolic 120 mm Hg 09/03/20 25 Blood pressure diastolic 70 mm Hg 025 Heart Rate 60 /min 09/03/2025 Height 65 in 09/03/2025 Weight 000 lbs 09/03/2025 Encounters Encounter Location Date Provider Diagnosis [facility] [address] [facility] [address] [place], [place] [phone] 09/03/2025 R John Torres Rheumatoid arthritis , [...] ge:79 Y S ex:Female Date:09/03/2025 Address:[address] [facility] [place], [place], [id number] Subjective: * Chief Complaints: * 1 . Shot for arthritis. * HPI: R heumatology: She presents with complaints of worsening pain in both shoulders and both hands with swelling of the joints of her hand. She is requesting a steroid injection. She continues on oral prednisone. 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 C ardiology: She was hospitalized about a month ago with a UTI and NSTEMI. She was discharged to [facility] for rehab and just returned home [...] Hypertension, Hypothyroidism/goiter, Kidney stones, Allergic rhinitis, ASCVD: [place] - 09/2013-followed by Dr. Arrington q 6 [...] Procedure: k idney stones 1992, Heart Attack- [place] 09/2013, Facial Pain, Sinus Blockage- [facility] ER 04/24/2018, Itching, Swelling in Hands- [facility] ER 10/21/2018, Multiple rib and pelvic fractures; hyponatremia; rheumatoid arthritis; ASCVD- 06/30-, Dehydration, Failure to Thrive, Acute Urinary Retention- [facility] 07/14-, [facility] : fall with multiple FX [...] on, J1010 Inj, methylpred acetate 1 mg, 89201 ADMINISTRATION OF INJECTION * Follow Up: 3 Months * Images: Billing Information: * Visit Code: 61135 Office Visit, Est Pt., Level 3. Modifiers: 25 * Procedure Codes: G2211 Complex e/m visit add on. J1010 Inj, methylpred acetate 1 mg. 06624 ADMINISTRATION OF INJECTION. * Electronic signature of Raul Torres MD on 10/19/2025 at 08:34 AM EST Sign off status: Pending * Provider: Raul Torres M.D. Date: 11/03/2024 Generated for Jerry panda/Kerwin/Adrianitting on: 08:34 AM EST History and Physical Notes [...]
--- OUTSIDE RECORDS SUMMARY | 2025-10-06 06:00 | XMS_ITS ---
Author Organization [facility] Address [address] [place] [id number] Care Team Providers Care Ethylbenzene Oxidizer Name Role Phone Raul Torres Primary Care Provider REASON FOR VISIT F/U from [facility] Encounters Encounter Location Date Provider Diagnosis [facility] [address] [facility] [address] [place] [phone] 10/06/2025 Raul Torres Assessments Encounter Date Diagnosis [...] Chief Complaints: * 1 . F/U from [facility]. * HPI: H PI: Patient is here today for a Transition of Care Visit. Discharge from the following Facility: patient was admitted to [facility] on 09/21/2025 after several days of diarrhea and weakness ,Discharge date: 09/22/2025 ,Date of phone contact following discharge: 09/24/2025. * Medical History: Objective: * Vitals: Assessment: Plan: * Treatment: * Procedure Codes: 9 9495 TRANS CARE MGMT 14 DAY DISCH, 1111F DSCHR MED/CURENT MED MERGE, G2211 Complex e/m visit add on * Images: Billing Information: * Visit Code: * Procedure Codes: 65983 TRANS CARE MGMT 14 DAY DISCH. 1111F DSCHR MED/CURENT MED MERGE. G2211 Complex e/m visit add on. * Electronic signature of Raul Torres MD on 10/19/2025 at 08:34 AM EST Sign off status: Pending * Provider: Raul Torres M.D. Date: 12/07/2024 Generated for Jerry panda/Kerwin/Arthur on: 08:34 AM EST History and Physical Notes * HPI (History of Present Illness) Category Sub-Category Detail Notes Category Not es HPI Patient is here today for a Hernandez sition of Care Visit. Discharge from the following Facility: patient was admitted to [facility] on 09/21/2025 after several days of diarrhea and weakness ,Discharge date: 09/22/2025 ,Date of phone contact following discharge: 09/24/2025
--- OUTSIDE RECORDS SUMMARY | 2025-10-19 08:32 | XMS_ITS | Clinical Summary ---
Author Organization Healthcare Address [address] [place] [address] Care Team Providers Care Warp Bleaching Vat Tender Name Role Phone Amparo Arrington MD Primary Care Provider [phone] Allergies Active Allergy Reactions Criticality Noted Date [...] PMF's reviewed and stable PT/OT as tolerated [facility] Acquired hypothyroidism 06/30/2024 Overview (06/30/2024): Continue home levothyroxine Complicates all aspects of care Coronary artery disease invo lving [place] coronary artery of [place] heart without angina pectoris 06/30/2024 Overview (06/30/2024): [...] Department Care Team Description 08/24/2025 Orders Only [facility] [address] [place] [phone] [...] place to sleep or slept in a long-term (including now)? No 07/01/2024 Utilities Answer Date [...] Description 10/23/2025 12:20 PM EST Office Visit [facility] [address] [place] [address] Vicente Rodrigez MD [address] [place] [phone] Health Maintenance Due Date Last Done Comments [facility]-Bone Density Scan 1945 [facility]-Depression Screening 1945 [facility]-Medicare Annual Wellness (AWV) 1945 [facility]-Infant/Child/Adol SDOH Screenings 01/01/1946 [facility]- SDOH Screenings 1964 [facility]-Adult SDOH Screenings 1964 [facility]-Zoster Vaccines (1 of 2) 1965 [facility]-RSV Vaccine: 60+ Years or (1 - 1-dose 75+ series) 2021 [id number]-[id number] Vaccine (2024- season) 2025 08/19/2024, 08/16/2023, 05/29/2023, [...] ORDERABLES Final Re sult [facility] [address] [place] [address] from Last 3 Months or Most Recently Relevant to Health Maintenance Insurance MEDICARE [facility] BRIAN SANTOYO [id number] Advance Directives * Full Code (Latest Code Status on File) Date Activated Date Inactivated Comments 07/04/2024 1:04 PM * Full Code Date Activated Date Inactivated Comments 06/30/2024 8:06 AM 07/04/2024 1:04 PM Question Answer Comments Patient has decision-making capacity? Yes Care Teams Warp Bleaching Vat Tender Relationship Specialty Start Date End Date Amparo Arrington MD [place] [phone] (Fax) [facility] - General 03/04/21
--- OUTSIDE RECORDS SUMMARY | 2025-10-19 08:32 | XMS_ITS | Encounter Summary ---
Author Organization Healthcare Address [address] [place] [address] Care Team Providers Care Touch Up Carver Name Role Phone Amparo Arrington MD Primary Care Provider [phone] Encounter Details Date Type Department Care Team (Late st Contact Info) Description 08/24/2025 Orders Only [facility] [address] [place] [address] Anita Luu Hyponatremia (Primary Dx); Vitamin [...] Description 10/23/2025 12:20 PM EST Office Visit [facility] [address] [place] [address] Vicente Rodrigez MD [address] [place] [phone] Scheduled Orders Name Type Priority Associated [...] documented as of this encounter Care Teams Touch Up Carver Relationship Specialty Start Date End Date Amparo Arrington MD [place] [phone] PCP - General 03/04/21 documented as of this encounter
--- OUTSIDE RECORDS SUMMARY | 2025-10-19 08:33 | XMS_ITS | Clinical Summary ---
Author Organization [facility] Address [address] [place] [address] Care Team Providers Care Certified Breastfeeding Educator Name Role Phone Wyatt Torres MD Primary Care Provider [phone] Source Comments This information has been disclosed [...] therelease of HIV test results or diagnoses. [id number] Allergies Active Allergy Reactions Criticality Noted [...] A AND B [employer] Care Teams Certified Breastfeeding Educator Relationship Specialty Start Date End Date Wyatt Torres MD [address] [place] [address] PCP - General Family Medicine 04/09/23
--- OUTSIDE RECORDS SUMMARY | 2025-10-19 08:33 | XMS_ITS | Patient Health Record ---
Author Organization [facility] Address [address] [facility] [address] [place] [id number] Care Team Providers Care Curb Attendant Name Role Phone Raul Torres Primary Care Provider [phone] Marie Helm Unavailable [phone] Oneida Edwards Unavailable [phone] Allergies Allergen (clinical drug ingredient) Drug/Non Drug [...] Component Value Reference Range Notes H-BMP Reviewed date:07/28/2025 11:32:54 AM Interpretation: Performing [...] K 4.8 3.5-5.1 mmoL/L Delta: 3.1 on 07/26/25-0650 CL 94 98-107 mmol/L CO2 19 22.0-30.0 [...] K/mm3 NRBC# 0 IG# 0.69 H-BMP Reviewed date:07/24/2025 09:37:12 AM Interpretation: Performing [...] K/mm3 NRBC# 0 IG# 0.09 H-BMP Reviewed date:07/23/2025 08:33:44 AM Interpretation: Performing [...] date:04/02/2025 02:57:40 PM Interpretation: Performing Lab: Notes/Report: Urinalysis - Inhouse Reviewed date:05/28/2025 03:50:05 PM Interpretation: Performing Lab: Notes/Report: Color/Clarity yellow/clear Leuk neg Nitrite neg Urobili 3.2 Protein neg pH 8.0 Blood neg Sp. Gr. 1.015 Ketone neg Bili neg Gluc neg Cortisol AM Reviewed date:04/14/2025 01:09:28 PM Interpretation: Performing Lab: Notes/Report: Test performed by [facility] [address] [place] [address] , [address], [place] [address] Gilmer Lowe MD, Advertising Representative CLIA: [id number] Cortisol AM 5.3 6.0-18.4 ug/dL P-Basic Metabolic Panel (BMP ) Reviewed date:04/14/2025 01:09:28 PM Interpretation: Performing Lab: Notes/Report: Test performed by [facility] [address] [place] [address] , [address], [place] [address] Gilmer Lowe MD, Advertising Representative CLIA: [id number] Sodium 128 135-145 mmol/L Potassium 3.7 3.5-5.3 mmol/L Chloride 92 97-108 mmol/L CO2 24 22-32 mmol/L Glucose 93 65-99 mg/dL BUN 16 8-23 mg/dL Creatinine 1.02 0.50-1.00 mg/dL Calcium 9.2 8.6-10.4 mg/dL eGFR by Creatinine 56 >59 mL/min/1.73m2 H-Magnesium Reviewed date:09/22/2025 09:54:38 AM Interpretation: Performing Lab: Notes/Report: MG 1.5 1.6-2.3 mg/dl H-BMP Reviewed date:09/22/2025 09:54:38 AM Interpretation: Performing Lab: Notes/Report: NA 129 136-145 mmol/L K 3.9 3.5-5.1 mmoL/L CL 98 98-107 mmol/L CO2 21 22.0-30.0 mmol/L GAP 13.9 5-15 mEq/L BUN 10 7-17 mg/dl CREATT 1.10 0.52-1.04 mg/dl CRCLE 39 50-200 mL/min GFRAA 58 >60 ML/MIN EGFR 48 >60 ml/min GLU 81 74-100 mg/dl Delta: 111 on 09/21/25-854 CA 10.0 8.4-10.2 mg/dl H-CBC Reviewed date:09/22/2025 09:54:38 AM Interpretation: Performing [...] 0.1 0-0.2 K/mm3 NRBC# 0 IG# 0.03 GIMID Reviewed date:09/22/2025 09:54:38 AM Interpretation: Performing Lab: Notes/Report: CAMPYLOBACTER Not Detected NotDetected CLOSTR DIFFICIL Not Detected NotDetected SALMONELLA, PCR Not Detected NotDetected YERSINIA Not Detected NotDetected VIBRIO, PCR Not Detected NotDetected SHIGATOXIN Not Detected NotDetected SHIG-INVAS ECOL Not Detected NotDetected CRYPTO Not Detected NotDetected CYCLOSPORA Not Detected NotDetected GIARDIA Not Detected NotDetected NOROVIRUS Not Detected NotDetected H-BMP Reviewed date:03/12/2025 11:04:11 AM Interpretation: Performing [...] mg/dl CA 8.3 8.4-10.2 mg/dl H-CBC Reviewed date:07/21/2025 08:59:07 AM [...] 117 74-100 mg/dl CA 8.5 8.4-10.2 mg/dl CBC Fingerstick (in house) Reviewed [...] - 400 CBC Venipuncture (in house) Reviewed date:04/16/2025 11:50:29 [...] 102 Performing Lab: Notes/Report: Test performed by [employer] [facility] , [address], [place] [address] Gilmer Loew MD, Advertising Representative CLIA: [id number] Sodium 122 135-145 mmol/L Potassium 4.2 3.5-5.3 mmol/L Chloride 86 97-108 mmol/L CO2 25 20-32 mmol/L Glucose 102 65-99 mg/dL BUN 19 8-23 mg/dL Creatinine 0.85 0.50-1.00 mg/dL Calcium 9.5 8.6-10.4 mg/dL eGFR by Creatinine 70 >59 mL/min/1.73m2 Medications Medication SIG (Take, Route, [...] W/U Status Risk Notes Problem Essential hypertension (97561013) Essential (primary) hypertension (I10) Active confirmed Problem Coronary arteriosclerosis (27258299) ASCVD (arteriosclerotic cardiovascular disease) (I25.10) Active confirmed Problem Essential hypertension (23288969) Essential hypertension (I10) Active confirmed Problem Gout attack (100496567) Gout attack (M10.9) Active confirmed Problem Rhinitis (29507838) Rhinitis (J31.0) Active con firmed Problem Osteopenia (969283015) Osteopenia (M85.80) Active confirmed Problem Altered mental statu s (548303956) Altered mental state (R41.82) Active confirmed Problem Environmental allerg y (138396287) Environmental allergies (Z91.048) Active confirmed Problem Memory loss (12638756) Memory loss (R41.3) Active confirmed Problem Hypomagnesemia (093652350) Hypomagnesemia (E83.42) Active confirmed Problem Acute non-ST segment elevation myocardial infarction (582961465) Non-ST elevation (NSTEMI) myocardial infarction (I21.4) Active confirmed Problem Inflammatory polyarthropathy (794898949) 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) Active confirmed Problem Polymyalgia rheumatica (16386763) Polymyalgia rheumatica (M35.3) Active confirmed Problem Ataxic gait (91904581) Ataxic gait (R26.0) Active confirmed Problem Acquired hypothyroidism (390221613) Acquired hypothyroidism (E03.9) Active confirmed Problem Neck pain (74621698) Neck pain (M54.2) Active c onfirmed Problem Paresthesia (finding ) (07341613) Paresthesias (R20.2) Active confirmed Problem History of circulatory system disease (650810350) 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) Active confirmed Problem Muscle spasm (14650497) Muscle spasm (M62.838) Active confirmed Problem Rheumatoid arthritis (54608624) Rheumatoid arthritis (M06.9) Active confirmed Problem Sleep disorder (72278878) Sleep disorder (G47.9) Active confirmed Problem Cervical disc disorder (982376340) DDD (degenerative disc disease), cervical (M50.30) Active confirmed Problem Primary osteoarthritis (064028561) Primary osteoarthritis (M19.91) Active confirmed Problem Dyslipidemia (033355188) Dyslipidemia (E78.5) Active confirmed Problem Leukocytosis (088113297) Leukocytosis, unspecified (D72.829) Active confirmed Problem Impairment of balanc e (325954002) Balance problem (R26.89) Active confirmed Problem Anemia (754904796) Mild anemia (D64.9) Active c onfirmed Problem Rheumatoid arthritis (92752233) Rheumatoid arthritis, involving unspecified site, unspecified whether rheumatoid factor present (M06.9) Active confirmed Problem Systolic heart failure (588529539) HFrEF (heart failure with reduced ejection fraction) (I50.20) Active confirmed Problem Sialodocholithiasis (18892616) Sialodocholithiasis (K11.5) Active confirmed Vital Signs Heart Rate 60 /min 09/03/2025 Respiratory Rate 20 /min 03/31/2025 Blood pressure diastolic 70 mm Hg 09/03/2025 Height 65 in 09/03/2025 Blood pressure systolic 120 mm Hg 09/03/2025 Weight 000 lbs 09/03/2025 BMI 25.32 kg/m2 06/16/2025 Encounters Encounter Location Date Provider Diagnosis [facility] [address] [facility] [facility] [address] [place] [id number] 11/13/2024 R John Torres Chronic diarrhea K52 .9 and Rheumatoid arthritis, involving unspecified site, unspecified whether rheumatoid factor present M06.9 [facility] [address] [facility] [facility] [address] [place] [id number] 12/12/2024 Oneida Edwards Open wound of right lower extremity, initial encounter S81.801A [facility] [address] [facility] [facility] [address] [facility] [address] [place] [id number] 12/25/2024 R John Melissa Rheumatoid arthritis M06.9 [facility] [facility] [address] [place] [id number] 02/05/2025 R John Melissa Acute sinusitis J01. 90 ; Inflammatory polyarthropathy M06.4 ; Polymyalgia rheumatica M35.3 ; Acquired hypothyroidism E03.9 ; Dyslipidemia E78.5 ; Essential hypertension I10 and BMI 24.0-24.9, adult Z68.24 [facility] [facility] [address] [place] [id number] 02/17/2025 R John Melissa Glossitis K14.0 ; Shoulder pain M25.519 and BMI 24.0-24.9, adult Z68.24 [employer] [facility] [place] [id number] 03/31/2025 Marierossi Helm Polymyalgia rheumati ca M35.3 ; Rib fractures S22.39XA ; Acquired hypothyroidism E03.9 ; Dyslipidemia E78.5 ; Essential hypertension I10 ; Nausea R11.0 ; Leg edema R60.0 ; Hx of arteriosclerotic cardiovascular disease Z86.79 ; Accidental fall, subsequent encounter W19.XXXD ; Sleep disorder G47.9 and Hypokalemia E87.6 [facility] [address] [place] [id number] 04/09/2025 R John Melissa Hyponatremia E87.1 ; Rib fractures S22.39XA ; Chronic diarrhea K52.9 and BMI 23.0-23.9, adult Z68.23 [facility] [facility] [address] [place] [id number] 04/16/2025 R John Melissa Acute sinusitis J01. 90 ; Adhesive capsulitis of left shoulder M75.02 ; Dyslipidemia E78.5 ; Rib fractures S22.39XA ; Leg edema R60.0 and Onychomycosis B35.1 [facility] 12[facility] [address] [place] [id number] 05/07/2025 R John Melissa Inflammatory polyarthropathy M06.4 [facility] 12[facility] [address] [place] [id number] 05/19/2025 R John Melissa Hyponatremia E87.1 ; Muscle weakness M62.81 and BMI 23.0-23.9, adult Z68.23 [facility] [address] [facility] [address] [place], [place] [id number] 05/26/2025 R John Melissa Hyponatremia E87.1 ; Memory loss R41.3 and BMI 24.0-24.9, adult Z68.24 [facility] [address] [facility] [address] [place], [place] [id number] 05/28/2025 R John Melissa Altered mental state R41.82 [facility] [address] [facility] [address] [place], [place] [id number] 06/16/2025 R John Melissa Rheumatoid arthritis M06.9 ; Leg edema R60.0 and Hyponatremia E87.1 [facility] [address] [place], [place] [id number] 07/15/2025 R John Melissa Encounter for immunization Z23 [facility] [address] [facility] [address] [place], [place] [id number] 09/03/2025 R John Melissa Rheumatoid arthritis , involving unspecified site, unspecified whether rheumatoid factor present M06.9 and ASCVD (arteriosclerotic cardiovascular disease) I25.10 [facility] [address] [facility] [address] [place], [place] [id number] 10/23/2024 R John Melissa Leg edema R60.0 [facility] [address] [facility] [address] [place] [id number] 11/18/2024 R John Melissa Rib fractures S22.39 [facility] [address] [facility] [address] [place], [place] [id number] 11/25/2024 R John Melissa [facility] [address] [facility] [address] [place], [place] [id number] 12/12/2024 R John Melissa Chronic diarrhea K52 .9 [facility] [address] [place], [place] [id number] 12/17/2024 R John Melissa Rib fractures S22.39 XA [facility] [address] [place], [place] [id number] 12/26/2024 R John Melissa [facility] [address] [place], [place] [id number] 2024 R John Melissa Chronic diarrhea K52 .9 [facility] [address] [place], [place] [id number] 01/06/2025 R John Melissa [facility] [address] [place], [place] [id number] 01/13/2025 R John Melissa Rib fractures S22.39 XA [facility] [address] [place], [place] [id number] 01/21/2025 R John Melissa [facility] [address] [place], [place] [id number] 01/30/2025 R John Melissa Rib fractures S22.39 XA [facility] [address] [place], [place] [id number] 02/02/2025 R John Melissa [facility] [address] [place] [id number] 02/04/2025 R John Melissa Chronic diarrhea K52 .9 [facility] [address] [place] [id number] 02/16/2025 R John Melissa Rib fractures S22.39 XA [facility] [address] [place] [id number] 03/02/2025 Marie Helm Rib fractures S22.39 XA [facility] [address] [place] [id number] 03/16/2025 R John Melissa [facility] [address] [place] [id number] 03/23/2025 R John Melissa [facility] [address] [place] [id number] 04/02/2025 R John Melissa [facility] [address] [place], [place] [id number] 04/07/2025 R John Melissa Leg edema R60.0 [facility] [address] [place] [id number] 04/09/2025 R John Melissa Leg edema R60.0 [facility] [address] [place] [id number] 04/10/2025 R John Melissa [facility] [address] [place] [id number] 04/13/2025 R John Melissa [facility] [address] [place], [place] [id number] 04/13/2025 R John Melissa Acquired hypothyroid ism E03.9 [facility] [address] [place] [id number] 04/14/2025 R John Melissa [facility] [address] [place] [id number] 04/19/2025 R John Melissa Screening for osteoporosis Z13.820 [facility] [address] [place] [id number] 04/20/2025 R John Melissa [facility] [address] [place] [id number] 04/22/2025 R John Melissa Nausea R11.0 [facility] [address] [place], [place] [id number] 05/06/2025 R John Melissa Hypokalemia E87.6 [facility] [address] [place] [id number] 05/26/2025 R John Melissa [facility] [address] [place] [id number] 05/29/2025 Oneida Crowdy [facility] [address] [place] [id number] 06/02/2025 R John Melissa [facility] [address] [place] [id number] 06/02/2025 R John Melissa [facility] [address] [place], [place] [id number] 06/09/2025 R John Melissa [facility] [address] [place] [id number] 06/09/2025 R John Melissa [facility] [address] [place] [id number] 06/18/2025 R John Melissa Leg edema R60.0 [facility] [address] [place], [place] [id number] 06/25/2025 R John Melissa [facility] [address] [place], [place] [id number] 07/06/2025 R John Melissa [facility] [address] [place] [id number] 07/24/2025 R John Melissa [facility] [address] [place] [id number] 08/04/2025 R John Melissa [facility] [address] [place], [place] [id number] 09/07/2025 R John Melissa [facility] [address] [place], [place] [id number] 09/14/2025 R John Melissa [facility] [address] [place], [place] [id number] 09/22/2025 R John Melissa [facility] [address] [place], [place] [id number] 09/28/2025 R John Melissa [facility] [address] [place], [place] [id number] 09/29/2025 Raul Rodriguesfleet [facility] [address] [facility] [address] [place] [id number] 09/29/2025 Raul Torres Nausea R11.0 Assessments Encounter [...] Date MEDICARE PART B [address] [address] [place] [id number] Andry Culp Self - patient is the insured Property [employer] [id number] [phone] [id number] Andry Culp Self - patient is the [...] hypertension Hypothyroidism/goiter kidney stones allergic rhinitis ASCVD: [place] - 09/2013-followed by Dr. Arrington q 6 months cataracts Hyperuricemia Inflammatory arthritis - Dr. Cheng polymyalgia rheumatica - Dr. Skylar Bhatia Covid vaccine x2 Oct/Nov 2020 Surgical History Surgery Date(Month/Year) Thyroidectomy/Goiter removal 1999 Back 2001 Total Hysterectomy 1992 Tonsillectomy child Cardiac Stent Placed-[facility]-Dr Arrington. Dr. Santo 10/19/2013 Cataract 10/2017 Hospitalization History Reason Date(Month/Year) Facial Pain, Sinus Blockage- [facility] 01/2018 Heart Attack- [facility] 09/2013 Itching, Swelling in Hands- [facility] 10/21 kidney stones 1992 [facility] : fall with multiple FX ribs on the right; hyponatremia and hypokalemia 03/12-03/15/2025 Dehydration, Failure to Thrive, Acute Ur inary Retention- [facility] 07/14- Multiple rib and pelvic frac tures; hyponatremia; rheumatoid arthritis; ASCVD- 06/30-
--- OUTSIDE RECORDS SUMMARY | 2025-10-19 08:33 | XMS_ITS | Encounter Summary ---
[facility] Address [address] [place] [address] Care Team Providers Care Circular Tank Cooper Name Role Phone Wyatt Torres MD Primary Care Provider Encounter Details Date Type Department Care Team (Late st Contact Info) Description 01/15/2025 Results Follow-Up [facility] [address] [facility] [address] [phone] Jennyfer Porras APRN [address] [facility] [address] [place] [address] Social History Tobacco Use Types Packs/Day Years [...] on filedocumented in this encounter Care Teams Circular Tank Cooper Relationship Specialty Start Date End Date Wyatt Torres MD [address] [place] [facility] [address] [facility] [place] [address] PCP - General Family Medicine 12/26/24 documented as of this encounter
--- OUTSIDE RECORDS SUMMARY | 2025-10-19 08:34 | XMS_ITS | Clinical Summary ---
Author Organization [facility] Address [address] [place] [address] Care Team Providers Care Envelope Stamping Machine Operator Name Role Phone Wyatt Torres [...] - 200 mg/dL 01/15/2025 12:23 AM EDT [facility] Triglycerides 89 0 - 150 mg/dL 01/15/2025 12:23 AM EDT [facility] HDL Cholesterol 99(H) 40 - 60 mg/dL 01/15/2025 12:23 AM EDT [facility] LDL Cholesterol 75 0 - 100 mg/dL 01/15/2025 12:23 AM EDT [facility] VLDL Cholesterol 16 5 - 40 mg/dL 01/15/2025 12:23 AM EDT [facility] LDL/HDL Ratio 0.74 01/15/2025 12:23 AM EDT [facility] Blood Venipuncture / Unknown 01/14/2025 10:25 AM EDT 01/14/2025 10:26 AM EDT Narrative [facility] - 01/15/2025 12:23 AM EDT [...] MD LAB BLOOD ORDERABLES Final Resul t [facility]
[address] [place] [address], from Last 3 Months or Most Recently Relevant to Health Maintenance Insurance MEDICARE A & B [employer] [facility] [place] [id number] Care Teams Envelope Stamping Machine Operator Relationship Specialty Start Date End Date Wyatt Torres MD [address] [facility] [address] [facility] [address] [place] [id number] PCP - General Family Medicine 12/26/24
--- OUTSIDE RECORDS SUMMARY | 2025-10-19 08:34 | XMS_ITS | Data Portability ---
Author Organization [facility] COREEN MontañoS [place] Address [address] [place] [address] Care Team Providers Care Inside Barrel Lathe Operator Name Role Phone EMA CAMPOS Primary Care Provider [phone] ROSE BASS Retail Product Demo Specialist Assessment Encounter Date Assessment Date Assessment LastModified [...] Lab rf (rheumatoid factor), serum 2023 [facility], [address] [place] [address], [phone], 11:20:43 ccp (cyclic citrullinat ed peptide) iga+igg, serum 2023 024 [facility], [address] [place] [address], [address], 4 16:52:40 ESR (erythrocyt e sedimentati on rate), blood 2023 024 [facility], [address] [place] [address], [address], 4 11:12:24 C reactive protein, QN, serum or plasma 2023 024 [facility], [address] [place] [address], [address], 4 11:20:45 Mycobacteri um tuberculosi s stimulated gamma interferon, qual, blood 2023 024 [facility], [address] [place] [address], [address], 4 02:43:42 hepatitis C Ab, serum 2023 024 [facility], [address] [place] [address], [address], 4 11:39:06 ESR (erythrocyt e sedimentati on rate), blood 2023 024 [facility], [address] [place] [address], [address], 4 11:13:45 C reactive protein, QN, serum or plasma 2023 024 [facility], [address] [place] [address], [address], 4 11:26:25 Referral None recorded. Procedures None recorded. Surgeries None recorded. Imaging None recorded. Medication Orders prednisone 5 mg tablet 2024 025 [facility] [address] [place], [address], 5 10:42:41 Cymbalta 30 mg capsule,del ayed release [address] [facility] [address] [place], [address], 4 10:15:00 Depo-Medrol 80 mg/mL suspension for injection [address] [facility] [address] [place], [address], 4 10:45:28 Patient TargetsNo targets recorded. Patient InstructionsNo instructions recorded. Reason for Referral None Reported. Results Created Date Observation Date Name Description Value Unit Range Abnormal Flag Note LastModifiedBy Organization Detail LastModifiedTime 10/25/1910/25/2023 ESR, AUTOM ATED ESR, automated 7 mm 0-29 normal Not Available [facility] [address] [place] [address], [address], 10/25/2023 11:13:45 10/25/19 24 10/25/2023 C REACT KASANDRA PROTE IN C reactive protein 0.17 mg/dL 0.00-0 .49 normal Not Available [facility] [address] [place] [address], [address], 10/25/2023 11:26:25 05/07/20 24 05/07/2024 ESR, AUTOM ATED ESR, automated 12 mm 0-29 normal Not Available [facility] [address] [place] [address], [address], 05/07/2024 11:12:24 05/07/20 24 05/07/2024 RF SCREE N, QUANT . rf screen, quant. <10.0 [IU]/ mL 0.0-13 .9 normal Not Available [facility] [address] [place] [address], [address], 05/07/2024 11:20:43 05/07/20 24 05/07/2024 C REACT KASANDRA PROTE IN C reactive protein 0.17 mg/dL 0.00-0 .49 normal Not Available [facility] [address] [place] [address], [address], 05/07/2024 11:20:45 05/07/20 24 05/07/2024 HEPAT ITIS C AB SCR, REFLE X HCVQT hcab scr, reflex viral RNA qt NONREA CTIVE nonrea ctive normal Antib odies to HCV were not detec beth; does not exclu de the possi bilit y of expos ure to HCV. Not Available [facility] [address] [place] [address], [address], 05/07/2024 11:39:06 05/07/20 24 05/09/2024 ANTI- CCP anti-ccp <16 units normal Refer ence Range Negat kasandra: <20 Weak Posit kasandra: 20-39 Moder ate Posit kasandra: 40-59 Stron g Posit kasandra: >59 Not Available [facility] [address] [place] [address], [address], 05/09/2024 16:52:40 05/07/20 24 05/10/2024 QUANT IFERO N TB GOLD qtb gold NEGATI VE negati ve normal Negat kasandra test resul t. M. tuber culos is compl ex infec tion unlik erin. Not Available [facility] [place], [address], 05/15/2024 15:49:02 05/07/20 24 05/10/2024 QUANT IFERO N TB GOLD nil 0.01 IU/mL normal Not Available [facility] [place], [address], 05/15/2024 15:49:02 05/07/20 24 05/10/2024 QUANT IFERO N TB GOLD mitogen nil >10.00 IU/mL normal Not Available [facility] [place], [address], 05/15/2024 15:49:02 05/07/20 24 05/10/2024 QUANT IFERO N TB GOLD TB1 nil 0.00 IU/mL normal Not Available [facility] [address] [place], [address], 05/15/2024 15:49:02 05/07/20 24 05/10/2024 QUANT IFERO [...] refer to https ://ed ucati on.qu [employer]. M[employer]able/f aq/FA Q204 (This link is being provi ded for infor uday cormier/ toi tamayo l purpo ses only. ) Not Available [facility] [address] [place], [address], 05/15/2024 15:49:02 Result Notes None recorded. 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 Procedures Surgical History Date Name Laterality Status Provider Name and Address Organization Details Recorded Time Remove tonsils and adenoids completed [facility] 12/19/2018 09:47:28 Removal of thyroid completed [facility] 12/19/2018 09:47:47 Imaging Results None recorded. Procedure Notes None recorded. Medical Equipment None Reported. Allergies Allergen ID Allergen Name Allergen Category Reaction Reaction Severity Criticality Documentation Date Start Date Code Code System Note Provider Name and Address Organization Details Recorded Time 222641 Substance with sulfonami de structure and antibacte rial mechanism of action (substanc e) medicatio n Not available Not available Not available 09/15/20162014 63022 8003 SNOMED Comme nt: Creat ed By: Rayna Gonzalez; Creat ed Date: 2014 10:04 :26 AM; Not Available [facility] 6 09:13:41 775440 codeine medicatio n Not available Not available Not available 09/15/20162014 2670 RxNorm Comme nt: Creat ed By: Rayna Gonzalez; Creat ed Date: 2014 10:03 :51 AM; Not Available [facility] 6 09:37:20 588049 Product containin g penicilli n (product) medicatio n Not available Not available Not available 09/29/20252022 46037 8001 SNOMED unrec ogniz ed react ion (text : Nause a And Vomit ing, code: 62458 000) (from exter nal sourc e) Not Available cris - External Data Service - prod 5 13:51:27 077057 amoxicill in medicatio n Not available Not available Not available 09/29/2025 723 RxNorm Not Available cris - External Data Service - prod 13:53:02 681443 amoxicill in / clavulana te medicatio n nausea Not available Not available 09/29/2025 46350 RxNorm Not Available cris [employer] Data Service - prod 5 13:53:02 945659 cefaclor medicatio n nausea Not available Not available 09/29/2025 2176 RxNorm Not Available cris - [employer] Data Service - prod 5 13:53:02 155031 duloxetin e medicatio n Not available Not available Not available 09/29/2025 37438 RxNorm Not Available cris - [employer] - prod 5 13:53:02 712022 gabapenti n medicatio n Not available Not available Not available 09/29/2025 15685 RxNorm Not Available cris [employer] Data Service - prod 5 13:53:02 407883 naproxen medicatio n rash Not available Not available 09/29/2025 7258 RxNorm Not Available cris [employer] Data Service - prod 5 13:53:02 876163 acetamino phen / oxycodone medicatio n Not available Not available Not available 09/29/2025 64282 3 RxNorm Not Available cris [employer] Data Service - prod 5 13:53:02 161909 azithromy madi medicatio n Not available Not available Not available 09/29/2025 09807 RxNorm Not Available cris [employer] Data Service - prod 5 13:53:02 554867 atorvasta tin calcium medicatio n itching rash Not available Not available low 09/29/20252024 58469 RxNorm Not Available cris [employer] Data Service - prod 5 13:53:12 546733 rosuvasta tin medicatio n itching Not available Not available 09/29/20252024 81703 2 RxNorm Not Available [employer] Data Service - prod 5 13:53:12 978767 pitavasta tin calcium medicatio n itching Not available Not available 09/29/20252024 82110 0 RxNorm Not Available cris [employer] Service - prod 5 13:53:12 256714 simvastat in medicatio n rash Not available low 09/29/20252024 82905 RxNorm Not Available cris - External Data Service - prod 13:53:12 962668 sulfate ion Not available other Not available Not available 09/29/20252014 74148 98 RxNorm Subst ance with sulfo namid e struc ture and antib acter ial mecha nism of actio n (subs tance ) unrec ogniz ed react ion (text : Nause a And Vomit ing, code: 60658 000) (from exter nal sourc e) Not [...] levothyr oxine; Dosage:1 ; refills: 0; Quantity :83795 mcg Not Available Not Available Not Available [...] Updated DateTime 4 167.64 cm 24.7 kg/m2 81834.6 3 g 16 /min 67 /min 96 % 152/90 mm[Hg] [facility] 4 10:07:20 Date Recorded Body height Body mass index (BMI) Body weight Provider Name and Address Organization Details Last Updated DateTime 10/28/2024 167.64 cm 24.7 kg/m2 88427.63 g [facility] 10/28/2024 13:15:40 Date Recorded Body height Body mass index (BMI) Body weight Respiratory rate Heart rate Oxygen saturation Systolic And Diastolic Provider Name and Address Organization Details Last Updated DateTime 4 167.64 cm 24.7 kg/m2 05387.6 3 g 16 /min 69 /min 96 % 120/80 mm[Hg] [facility] 4 10:42:58 Date Recorded Body height Respiratory rate Body mass index (BMI) Body weight Oxygen saturation Heart rate Systolic And Diastolic Provider Name and Address Organization Details Last Updated DateTime 5 167.64 cm 16 /min 24.7 kg/m2 74012.6 3 g 97 % 68 /min 126/82 mm[Hg] [facility] 5 10:34:11 Date Recorded Body height Body mass index (BMI) Body weight Respiratory rate Heart rate Oxygen saturation Systolic And Diastolic Provider Name and Address Organization Details Last Updated DateTime 4 167.64 cm 24.7 kg/m2 16913.6 3 g 16 /min 86 /min 97 % 122/80 mm[Hg] Frieda Mcmahon [facility] 4 09:59:55 Social History Question Answer Notes LastModified by [employer] Details LastModified Time Tobacco Smoking Status Former Smoker January Vani [facility] 10/26/2017 14:04:04 How Much Tobacco Do You Chew? None Information not available 06/19/2019 What Was The Date Of Your Most Recent Tobacco Screening? 01/27/2025 [email or web address] Information not available 01/27/2025 How Much Tobacco Do You Smoke? 1 PPD Information not available 06/19/2019 How Many Years Have You Smoked Tobacco? 40 Information not available 06/19/2019 Have You Recently Traveled Abroad? No Information not available 10/24/2022 Sex: Unknown Functional Status Question Answer Note LastModified by [employer] Details LastModified Time What is your level of alcohol consumption? None [email or web address] Information not available 12/19/2018 Do you or have you ever used smokeless tobacco? Never used smokeless tobacco Information not available 06/19/2019 Do you or have you ever used e-cigarettes or vape? Never used electronic cigarettes Information not available 06/19/2019 Mental Status None recorded. Family History Nothing Reported. Medical History Condition Response Diabetes N Bleeding Disorder N Arthritis N Emphysema N Heart Disease Y Acid Reflux (GERD) N Rheumatoid Arthritis N Hypertension Y COPD N Asthma N Gynecological HistoryNo gynecological history recorded. Obstetrics History GPAL:G 0 P 0 0 0 0 Past Encounters Encounter ID Performer Location Encounter Start Date Encounter Closed Date Diagnosis/Indication Diagnosis SNOMED-CT Code Diagnosis ICD10 Code Diagnosis IMO Codes Diagnosis Note [id number] ARLENE MEI APRN [facility] [address] [place] [address] 10/26/2017 13:52:29 10/26/2017 14:49:45 Pain of multiple joints 61824310 M25.50 71 year old female is here [...] go over results. Anti-nucle ar factor detected 743773339 R76.8 As detailed above OPAL obtained in 2013 was 1:160 homogenous .Recently checked per PCP and was homogenous 1:320.Will obtain lupus panel today. [id number] ARLENE MEI APRN [facility] [address] [place] [address] 11/08/2017 10:21:14 11/12/2017 08:10:02 Hyperuricemia 42506687 E79.0 Hyperurice miaPatient reports episodes of heat in joints and joint pain.[facility] was found to have positive OPAL [...] 3 months, to recheck uric acid level. [id number] ROSE BASS MD [facility] [address] [place] [address] 11/04/2018 10:30:43 11/07/2018 07:59:17 Inflammatory polyarthropathy 228361571 M06.4 very pleasant 72-year-ol d female with [...] she was comfortabl e with the plan. [id number] ROSE BASS MD [facility] [address] [address] 12/19/2018 09:01:43 12/20/2018 08:50:39 Polymyalgia rheumatica 05512457 M35.3 clinically looks so much better. Active and passive range of motion. She has palpable pulses without any jaw tenderness or temporal tenderness . I would like her to maintain prednisone at 5 mg once a day. Inflammato ry polyarthropathy 119516941 M06.4 in terms of inflammato ry arthritis, [...] Her baseline eye examinatio n is stable. [id number] [place] [address] [place] [address] 06/19/2019 09:47:18 06/24/2019 08:38:26 Polymyalgia rheumatica 99289692 M35.3 chronic disease and under excellent control. In clinical remission. Excellent Range of motion. No physical limitation s noted. I would like her to maintain prednisone at 5 mg once a day. Inflammato ry polyarthropathy 803320154 M06.4 chronic polyarticu lar inflammato ry arthritis associated with PMR remains in clinical remission. I would like her to continue with hydroxychl oroquine at 200 mg once a day. [id number] ROSE BASS MD [facility] [address] [place] [address] 06/21/2020 07:59:24 06/21/2020 11:07:16 Polymyalgia rheumatica 67409602 M35.3 74-year-ol d female with chronic polymyalgi [...] headaches or vision changes. Inflammato ry polyarthropathy 014663935 M06.4 chronic polyarticu lar inflammato ry arthritis associated with PMR. fairly stable. maintain hydroxychl oroquine 200 mg twice a [id number] ROSE BASS MD [facility] [address] [address] 09/29/2020 10:12:08 09/29/2020 10:38:53 Polymyalgia rheumatica 13080087 M35.3 74-year-ol d female with chronic polymyalgi [...] follow-up in 3 months Inflammato ry polyarthropathy 904449232 M06.4 associated inflammato ry arthritis. Symptomati marvin joint pains as detailed above. Medication s As described above combinatio n of hydroxychl oroquine and prednisone . Follow-up in 3 months. [id number] ROSE BASS MD [facility] [address] [place] [address] 12/29/2020 10:28:14 12/29/2020 11:52:19 Polymyalgia rheumatica 30764084 M35.3 74-year-ol d female with chronic polymyalgi [...] n once a year. Inflammato ry polyarthropathy 371984281 M06.4 Chronic and associated with polymyalgi a rheumatica . Currently clinically stable. Maintain the combinatio n of prednisone as well as hydroxychl oroquine as stated above. [id number] ROSE BASS MD [facility] [address] [place] [address] 04/29/2021 09:27:28 04/29/2021 10:15:19 Inflammatory polyarthropathy 457510729 M06.4 Chronic and associated with polymyalgi a rheumatica . has done well. Unfortunaakilah khan not able to load the prednisone dose and is currently on prednisone 10 mg alternatin g with 5 mg every other day. She also takes hydroxychl oroquine 200 mg twice a day. Must need to follow with eye examinatio n once a year Polymyalgi a rheumatica 92010816 M35.3 75-year-ol d female with chronic polymyalgi a rheumatica . Clinically stable on the current dose of prednisone as detailed above. No stigmata for giant cell arteritis. Repeat the ESR. Follow with eye examinatio n once a year. Long-term drug therapy 347466065 Z79.899 Of pain last follow-up on polymyalgi a rheumatica and inflammato ry arthritis. Bone density test needs to be done every 2 years. Maintain calcium and vitamin D on account of risk for osteoporos is on steroids. Also suggested to follow up with a bone density test with her primary care physician [id number] ROSE BASS MD [facility] [address] [place] [address] 11/02/2021 12:56:26 11/02/2021 13:19:32 Inflammatory polyarthropathy 091854811 M06.4 [id number] ar-old with polyarthri tis Chronic and stable. The current combinatio n of prednisone and hydroxychl oroquine is very helpful. Refills were given.Foll ow-up in 6 months Polymyalgi a rheumatica 29762356 M35.3 75-year-ol d female with chronic polymyalgi a rheumatica . Clinically stable on the current dose of prednisone 10 mg alternatin g with 5 mg every other day along with hydroxychl oroquine 200 mg twice a day. No stigmata for giant cell arteritis. Repeat the ESR. Follow with eye examinatio n once a year. Long-term drug therapy 778180992 Z79.899 Must follow-up with an eye examinatio n every year. Bone density test every 2 years. Maintain calcium vitamin D. Also suggested to follow up with a bone density test with her primary care physician [id number] ROSE BASS MD [facility] [address] [place] [address] 05/01/2022 08:17:48 05/01/2022 15:37:51 Inflammatory polyarthropathy 627453801 M06.4 76- year-old with polyarthri tis Seronegati [...] ow-up in 6 months Polymyalgi a rheumatica 31618100 M35.3 76-year-ol d female with chronic polymyalgi a rheumatica . Clinically stable. No proximal muscle pain or weakness reported.N o stigmata for giant cell arteritis. Last ESR 04/29/2021 9 mm/h Repeat the ESR. Follow with eye examinatio n once a year. Long-term drug therapy 915557528 Z79.899 Must follow-up with an eye examinatio n every year. Bone density test every 2 years. Maintain calcium vitamin D. She typically follows the bone density test with her PCP. She will get us a copy. [id number] ROSE BASS MD [facility] [address] [place] [address] 10/24/2022 13:59:01 10/25/2022 14:30:30 Inflammatory polyarthropathy 171920656 M06.4 76- year-old with polyarthri tisSeroneg ative [...] renal toxicity. Refills given Polymyalgi a rheumatica 88273408 M35.3 76-year-ol d female with chronic polymyalgi a rheumatica .From the PMR point of view looks stable.No proximal muscle pain or weakness reported.N o stigmata for giant cell arteritis. Last ESR 04/29/2021 9 mm/h Repeat ESR today Long-term drug therapy 849588467 Z79.899 Must follow-up with an eye examinatio n every year While taking the hydroxychl oroquine. On account of corticoste roid use, osteoporos is, osteonecro sis risk were reviewed. Weight gain diabetes also reviewed. Must follow with a bone density every 2 years [id number] ROSE BASS MD [facility] [address] [address] 04/03/2023 13:22:18 04/05/2023 04:49:45 Inflammatory polyarthropathy 067140370 M06.4 77- year-old with polyarthri tisSeroneg ative [...] toxicity. Follow-up 6 months Polymyalgi a rheumatica 68125720 M35.3 77-year-ol d female with chronic polymyalgi [...] prednisone resulted in flare. Long-term drug therapy 237583093 Z79.899 Must follow-up with an eye examinatio n every year While taking the hydroxychl oroquine. On account of corticoste roid use, osteoporos is, osteonecro sis risk were reviewed. Weight gain diabetes also reviewed. Must follow with a bone density every 2 years [id number] ROSE BASS MD [facility] [address] [place] [address] 10/25/2023 09:56:13 10/26/2023 15:37:58 Inflammatory polyarthropathy 620916598 M06.4 77- year-old with polyarthri tisSeroneg ative [...] toxicity. Follow-up 3 months Polymyalgi a rheumatica 48796491 M35.3 77-year-ol d female with chronic polymyalgi [...] her current treatment plan. Long-term drug therapy 419736510 Z79.899 Must follow-up with an eye examinatio n every year While taking the hydroxychl oroquine. On account of corticoste roid use, osteoporos is, osteonecro sis risk were reviewed. Weight gain diabetes also reviewed. Must follow with a bone density every 2 years [id number] ROSE BASS MD [facility] [address] [place] [address] 01/21/2024 10:13:42 01/22/2024 04:18:34 Inflammatory polyarthropathy 033574703 M06.4 78- year-old with polyarthri tisSeroneg ative [...] toxicity. Follow-up 3 months Polymyalgi a rheumatica 00550067 M35.3 78-year-ol d female with chronic polymyalgi [...] CRP 10/25/2023 is normal Long-term drug therapy 725547585 Z79.899 Must follow-up with an eye examinatio n every year While taking the hydroxychl oroquine. On account of corticoste roid use, osteoporos is, osteonecro sis risk were reviewed. Weight gain diabetes also reviewed. Must follow with a bone density every 2 years Fibromyalgia 330502152 M 79.7 Symptomati c with diffuse fibromyalg ia tender points. Discussed the diagnosis of fibromyalg ia. Educated about the disease. On account of fibromyalg ia pain, suggested the addition of cymbalta. Side effect profile reviewed. Prescripti on sent. Breast reduction discussed. Follow up in March 2024. [id number] ROSE BASS MD [facility] [address] [place] [address] 05/07/2024 09:49:06 05/08/2024 04:38:13 Inflammatory polyarthropathy 007968008 M06.4 78- year-old with polyarthri tisSeroneg ative [...] toxicity. Follow-up 3 months Polymyalgi a rheumatica 23651206 M35.3 78-year-ol d female with chronic polymyalgi [...] ESR and CRP today. Long-term drug therapy 876171802 Z79.893 Must follow-up with an eye examinatio n [...] reduction discussed. Follow up in March 2024. [id number] ROSE BASS MD [facility] [address] [place] [address] 10/28/2024 13:15:11 10/29/2024 09:41:27 Inflammatory polyarthropathy 309221002 M06.4 78- year-old with polyarthri tisSeroneg ative [...] toxicity. Follow-up 3 months Polymyalgi a rheumatica 24377623 M35.3 78-year-ol d female with chronic polymyalgi a rheumatica .Asymptoma tic. On combinatio n of prednisone and hydroxychl oroquine as detailed above. We have talked about Kevzara. She would rather hold off on it. Long-term drug therapy 458959371 Z79.893 Must follow-up with an eye examinatio n [...] every 8 hours Follow-up in 3 months [id number] ROSE BASS MD [facility] [address] [place] [address] 01/27/2025 10:22:01 01/28/2025 04:37:03 Inflammatory polyarthropathy 132931516 M06.4 78- year-old with polyarthri tisSeroneg ative [...] toxicity. Follow-up 3 months Polymyalgi a rheumatica 44904010 M35.3 78-year-ol d female with chronic polymyalgi [...] hold off on it. Long-term drug therapy 782031164 Z79.899 Must follow-up with an eye examinatio [...] Name 07/31/2025 1 [place] Andry Culp [id number] Andry Culp 05/16/2024 2 [employer] [place] [place] Andry Culp [id number] Andry Culp 07/31/2025 2 [employer] [place] [place] (MEDICARE SUPPLEMENT) PLAN G Andry Culp [id number] Andry Culp Notes Date Note Type Note [...] headaches or jaw pain. ROSE BASS MD [address] [place] [address], [phone], [facility] 10/25/2023 10:45:26 01/21/2024 text/html ROS as [...] headaches or jaw pain. [facility] [place], [address], [facility] 01/21/2024 16:55:07 05/07/2024 text/html ROS as [...] headaches or jaw pain. ROSE BASS MD [address] [place] [address], [address], [facility] 05/07/2024 16:46:44 10/28/2024 text/html ROS as noted in the HPI Visit today is being conducted via telehealth using both audio/video. The patient confirms that he/she is physically located in [place] at the time of this visit. Patient [...] headaches or jaw pain. ROSE BASS MD [address] [place] [address], [phone], [facility] 10/28/2024 13:30:53 01/27/2025 text/html ROS as [...] pain. No vision changes. ROSE BASS MD [address] [place] [address], [phone], [facility] 01/27/2025 11:01:52 OBGyn Episode No OBEpisode recorded.
--- OUTSIDE RECORDS SUMMARY | 2025-10-19 08:35 | XMS_ITS | Clinical Summary ---
Author Organization [facility] RN Address [address] [place] [address] Phone Care Team Providers Care Microcomputer Technician Name Role Phone Unavailable Primary Care [...] B MEDICARE IN PART A AND B [facility]
[2025-10-19 09:55] LABS: Anion Gap 11.8 mEq/L (5-15); Blood Urea Nitrogen 16 mg/dl (7-17); Calcium 9.5 mg/dl (8.4-10.2); Carbon Dioxide 25 mmol/L (22.0-30.0); Chloride 96 mmol/L (98-107); Creatinine,Serum 1.10 mg/dl (0.52-1.04); Estimated Glomerular Filt Rate 48 ml/min (>60); GFR (African American) 58 ML/MIN (>60); Glucose 99 mg/dl (74-100); Potassium 4.8 mmoL/L (3.5-5.1); Sodium 128 mmol/L (136-145)
--- OUTSIDE RECORDS SUMMARY | 2025-11-04 19:00 | XMS_ITS | Clinical Summary ---
Author Organization Unknown Care Team Providers Care Cloth Piecer Name Role Phone BETH LEMOS, EMA Unavailable Unavailable KENDALL RN, NICOLE Unavailable Unavailable ANGIE SUPERINTENDENT AMMUNITION STORAGE, JOSE M Unavailable Unavailable SHAUNNA PT, BHAVANA Unavailable Unavailable SUNITHA HOST/HOSTESS GROUND, RIANA Unavailable Unavaillauren CARRION OT, ANN Unavailable Unavailable RENAE AMALIA/ISBELL, MARIEA Unavailable Unavail able Payers Payer Name Policy Type Policy Number Effective Date Expira tion Date MEDICARE.[facility]ELYN.[facility] [id number] Problems Condition Name Condition Details Condition Category Status Onset Date Resolution Date Last Treatment Date Treating Clinician Comments HYPERTENSIVE HEART DISEASE WITH HEART FAILURE Active 2024-10 00:00: 00 HEART FAILURE, UNSPECIFIED Active 2024-10 00:00: 00 ATHSCL HEART DISEASE OF [place] CORONARY ARTERY W/O ANG PCTRS Active 2024-10 [...] HISTORY OF FALLING Active 2024-10 00:00: 00 SKILLED NURSING (CURRENT) USE OF ASPIRIN Active 2024-10 00:00: [...] 5-14 00:00: 00 04-13 08:31 :58 No [id number] DEFICIENCY 1 tablet DAILY 1 tablet DAILY (route: oral) Med Classific ation: Electroly te Balance-N utritiona l Products Adult Aspirin Regimen 81 mg tablet,maik yed release 2024-10 00:00: 00 Yes [id number] BLOOD THINNER 1 tablet DAILY 1 tablet DAILY (route: oral) Med Classific ation: Hematolog ical Agents benzonatate 100 mg capsule 2024-10 00:00: 00 Yes [id number] COUGH 1 capsule NEEDED 1 capsule NEEDED (route: oral) Med Classific ation: Respirato ry Therapy Agents carvedilol 12.5 mg tablet 2024-10 00:00: 00 Yes [id number] HEART 1 tablet DAILY 1 tablet DAILY (route: oral) Med Classific ation: Cardiovas cular Therapy Agents cyclobenzap rine 5 mg tablet 2024-10 00:00: 00 Yes [id number] MUSCLE SPASMS 1 tablet EVERY PM 1 tablet EVERY PM (route: oral) Med Classific ation: Locomotor System Entresto 24 mg-26 mg tablet 2024-10 00:00: 00 Yes [id number] HEART FAILURE 1 tablet 2 TIMES DAILY 1 tablet 2 TIMES DAILY (route: oral) Med Classific ation: Cardiovas cular Therapy Agents hydroxychlo roquine 200 mg tablet 2024-10 00:00: 00 Yes [id number] UNKNOWN 1 tablet DAILY 1 tablet DAILY (route: oral) Med Classific ation: Anti-Infe ctive Agents hyoscyamine 0.125 mg disintegrat ing tablet 2024-10 00:00: 00 Yes [id number] DIARRHEA 1 tablet NEEDED 1 tablet NEEDED (route: oral) Med Classific ation: Gastroint estinal Therapy Agents levothyroxi ne 112 mcg capsule 2024-10 00:00: 00 Yes [id number] NO THYROID 1 capsule DAILY 1 capsule DAILY (route: oral) Med Classific ation: Endocrine ondansetron 4 mg disintegrat ing tablet 2024-10 00:00: 00 Yes [id number] NAUSEA OR VOMITING 1 tablet NEEDED 1 tablet NEEDED (route: oral) Med Classific ation: Gastroint estinal Therapy Agents potassium chloride ER 10 mEq tablet,exte nded release 2024-10 00:00: 00 Yes [id number] DEFICIENCY 1 tablet DAILY 1 tablet DAILY (route: oral) Med Classific ation: Electroly te Balance-N utritiona l Products pravastatin 40 mg tablet 2024-10 00:00: 00 Yes [id number] CHOLESTEROL 1 tablet DAILY 1 tablet DAILY (route: oral) Med Classific ation: Cardiovas cular Therapy Agents spironolact one 25 mg tablet 2024-10 00:00: 00 Yes [id number] FLUID 1 tablet DAILY 1 tablet DAILY (route: oral) Med Classific ation: Cardiovas cular Therapy Agents tamsulosin 0.4 mg capsule 2024-10 00:00: 00 Yes [id number] URINARY 1 mg DAILY 1 mg GIANNA [...] DR.RUDY SEPULVEDA. RN TO OBSERVE AND ASSESS, SUPERINTENDENT AMMUNITION STORAGE/DATABASE ADMINISTRATION MANAGER TO OBSERVE FOR RISK FOR FALLS AND INSTRUCT IN FALL PREVENTION, HOME SAFETY, MEDICATION MANAGEMENT, INFECTION PREVENTION, AND NUTRITION MANAGEMENT. RN/SUPERINTENDENT AMMUNITION STORAGE/DATABASE ADMINISTRATION MANAGER NURSE MAY PERFORM O2 SATURATION LEVEL ON ADMISSION AND PRN FOR RN TO ASSESS/SUPERINTENDENT AMMUNITION STORAGE TO OBSERVE PATIENT, WITH NOTIFICATION TO THE PHYSICIAN IF SATURATION IS 90% IN THE ABSENCE OF MORE SPECIFIC PARAMETERS FROM THE PHYSICIAN. AGENCY MAY PERFORM A RESUMPTION OF CARE VISIT FOLLOWING ANY HOSPITAL ADMISSION. RN/SUPERINTENDENT AMMUNITION STORAGE/DATABASE ADMINISTRATION MANAGER TO MONITOR CO-MORBID CONDITIONS LISTED ON THE PLAN OF CARE AND ANY NEW CONDITIONS THAT PRESENT THEMSELVES DURING THIS EPISODE TO IDENTIFY CHANGES AND INTERVENE TO MINIMIZE COMPLICATIONS. [code = RN TO OBSERVE, ASSESS, EVALUATE, AND DEVELOP AN INDIVIDUALIZED PLAN OF CARE. AGENCY MAY ACCEPT ORDERS FROM CONSULTING PHYSICIANS , , , DR.MARIA BROWN, DR.RUDY SEPULVEDA. RN TO OBSERVE AND ASSESS, SUPERINTENDENT AMMUNITION STORAGE/DATABASE ADMINISTRATION MANAGER TO OBSERVE FOR RISK FOR FALLS AND INSTRUCT IN FALL PREVENTION, HOME SAFETY, MEDICATION MANAGEMENT, INFECTION PREVENTION, AND NUTRITION MANAGEMENT. RN/SUPERINTENDENT AMMUNITION STORAGE/DATABASE ADMINISTRATION MANAGER NURSE MAY PERFORM O2 SATURATION LEVEL ON ADMISSION AND PRN FOR RN TO ASSESS/SUPERINTENDENT AMMUNITION STORAGE TO OBSERVE PATIENT, WITH NOTIFICATION TO THE PHYSICIAN IF SATURATION IS 90% IN THE ABSENCE OF MORE SPECIFIC PARAMETERS FROM THE PHYSICIAN. AGENCY MAY PERFORM A RESUMPTION OF CARE VISIT FOLLOWING ANY HOSPITAL ADMISSION. RN/SUPERINTENDENT AMMUNITION STORAGE/DATABASE ADMINISTRATION MANAGER TO MONITOR CO-MORBID CONDITIONS LISTED ON THE PLAN OF CARE AND ANY NEW CONDITIONS THAT PRESENT THEMSELVES DURING THIS EPISODE TO IDENTIFY CHANGES AND INTERVENE TO MINIMIZE COMPLICATIONS.] Future Scheduled Test MEDICATION MANAGEMENT; RN/SUPERINTENDENT AMMUNITION STORAGE/DATABASE ADMINISTRATION MANAGER TO REVIEW MEDICATIONS FOR INTERACTIONS, EFFECTIVENESS OF DRUG THERAPY, AND SIGNS/SYMPTOMS OF ADVERSE REACTIONS. MAY INSTRUCT AND REINFORCE MEDICATION TEACHING RELATED TO THE USE OF MEDICATIONS, DOSAGE, FREQUENCY, PURPOSE, SIDE EFFECTS, AND TO REPORT COMPLICATIONS. [code = MEDICATION MANAGEMENT; RN/SUPERINTENDENT AMMUNITION STORAGE/DATABASE ADMINISTRATION MANAGER TO REVIEW MEDICATIONS FOR INTERACTIONS, EFFECTIVENESS OF DRUG THERAPY, AND SIGNS/SYMPTOMS OF ADVERSE REACTIONS. MAY INSTRUCT AND REINFORCE MEDICATION TEACHING RELATED TO THE USE OF MEDICATIONS, DOSAGE, FREQUENCY, PURPOSE, SIDE EFFECTS, AND TO REPORT COMPLICATIONS.] Future Scheduled Test CARDIOVASC ULAR SYSTEM; RN TO ASSESS/TEACH, SUPERINTENDENT AMMUNITION STORAGE/DATABASE ADMINISTRATION MANAGER TO OBSERVE/TEACH RELATED TO ALTERED CARDIOVASCULAR STATUS TO MINIMIZE COMPLICATIONS AND REDUCE HOSPITALIZATION. [code = CARDIOVASCULAR SYSTEM; RN TO ASSESS/TEACH, SUPERINTENDENT AMMUNITION STORAGE/DATABASE ADMINISTRATION MANAGER TO OBSERVE/TEACH RELATED TO ALTERED CARDIOVASCULAR STATUS TO MINIMIZE COMPLICATIONS AND REDUCE HOSPITALIZATION.] Future Scheduled Test HEART FAIL URE; RN TO ASSESS/TEACH, SUPERINTENDENT AMMUNITION STORAGE/DATABASE ADMINISTRATION MANAGER TO OBSERVE/TEACH CARDIOPULMONARY SYSTEM TO IDENTIFY SIGNS [...] [code = HEART FAILURE; RN TO ASSESS/TEACH, SUPERINTENDENT AMMUNITION STORAGE/DATABASE ADMINISTRATION MANAGER TO OBSERVE/TEACH CARDIOPULMONARY SYSTEM TO IDENTIFY SIGNS [...] ACUTE MYOC ARDIAL INFARCT; RN TO ASSESS/TEACH, SUPERINTENDENT AMMUNITION STORAGE/DATABASE ADMINISTRATION MANAGER TO OBSERVE/TEACH WARNING SIGNS AND SYMPTOMS TO AVOID HOSPITALIZATION. [code = ACUTE MYOCARDIAL INFARCT; RN TO ASSESS/TEACH, SUPERINTENDENT AMMUNITION STORAGE/DATABASE ADMINISTRATION MANAGER TO OBSERVE/TEACH WARNING SIGNS AND SYMPTOMS TO AVOID HOSPITALIZATION.] Future Scheduled Test PHYSICAL T HERAPIST TO EVALUATE FOR STRENGTH, GAIT, ENDURANCE,BALANCE [code = PHYSICAL THERAPIST TO EVALUATE FOR STRENGTH, GAIT, ENDURANCE,BALANCE] Future Scheduled Test OCCUPATION AL THERAPIST TO EVALUATE FOR ADLS AND IADLS [code = OCCUPATIONAL THERAPIST TO EVALUATE FOR ADLS AND IADLS] Future Scheduled Test PRN VISITS ; NUMBER OF RN/SUPERINTENDENT AMMUNITION STORAGE/DATABASE ADMINISTRATION MANAGER VISITS: 2 RN/SUPERINTENDENT AMMUNITION STORAGE/DATABASE ADMINISTRATION MANAGER TO PERFORM: EVALUATE FOR FLUID OVERLOAD FOR THE FOLLOWING REASONS: RECENT DIAGNOSIS OF CHF [code = PRN VISITS; NUMBER OF RN/SUPERINTENDENT AMMUNITION STORAGE/DATABASE ADMINISTRATION MANAGER VISITS: 2 RN/SUPERINTENDENT AMMUNITION STORAGE/DATABASE ADMINISTRATION MANAGER TO PERFORM: EVALUATE FOR FLUID OVERLOAD FOR THE FOLLOWING REASONS: RECENT DIAGNOSIS OF CHF] Future Scheduled Test PAIN MANAG EMENT; RN TO ASSESS AND TEACH, DATABASE ADMINISTRATION MANAGER/SUPERINTENDENT AMMUNITION STORAGE TO OBSERVE AND TEACH AND PROVIDE EDUCATION ON PAIN MANAGEMENT TECHNIQUES. [code = PAIN MANAGEMENT; RN TO ASSESS AND TEACH, DATABASE ADMINISTRATION MANAGER/SUPERINTENDENT AMMUNITION STORAGE TO OBSERVE AND TEACH AND PROVIDE EDUCATION [...] AND FUNCTIONAL INDEPENDENCE IN HOME PERSONAL HYGIENE/GROOMING (OT/FINISHER COLD ROLLING) BATHING/SHOWERING (OT/AMALIA) DRESSING (OT/FINISHER COLD ROLLING) ACTIVITIES OF DAILY LIVING (OT/AMALIA) TOILET TRANSFER (OT/AMALIA) BATH/SHOWER TRANSFER (OT/FINISHER COLD ROLLING) THERAPEUTIC EXERCISE (OT/AMALIA) OT/FINISHER COLD ROLLING MAY EDUCATE ON PAIN MANAGEMENT CLINICALLY INDICATED, [...] (OT/AMALIA) DRESSING (OT/AMALIA) ACTIVITIES OF DAILY LIVING (OT/FINISHER COLD ROLLING) TOILET TRANSFER (OT/FINISHER COLD ROLLING) BATH/SHOWER TRANSFER (OT/AMALIA) THERAPEUTIC EXERCISE (OT/FINISHER COLD ROLLING) OT/FINISHER COLD ROLLING MAY EDUCATE ON PAIN MANAGEMENT CLINICALLY INDICATED, [...] End Date/Time Encounter Type Admission Type Attending [facility] Care Facility Care Department Encounter ID Discharge Date Discharge Status Discharge Condition Discharge Reason Percent Goals Met 2025-09-07 00:00:00 2025-11-05 00:00:00 Outpatient NICOLE ARREOLA [facility] [id number] 100.00
--- OUTSIDE RECORDS SUMMARY | 2025-11-04 19:00 | XMS_ITS | Clinical Summary ---
Author Organization Unknown Care Team Providers Care Recovery Analyst Name Role Phone BETH LEMOS, EMA Unavailable Unavailable KENDALL RN, NICOLE Unavailable Unavailable ANGIE CATERING CONVENTION SERVICES MANAGER, JOSE M Unavailable Unavailable SHAUNNA PT, BHAVANA Unavailable Unavailable SUNITHA BLEND PLANT OPERATOR, RIANA Unavailable Unavaillauren CARRION OT, ANN Unavailable Unavailable RENAE AMALIA/ISBELL, MARIEA Unavailable Unavail able Payers Payer Name Policy Type Policy Number Effective Date Expira tion Date MEDICARE.JOCLEYN.[facility] [id number] Problems Condition Name Condition Details Condition Category Status Onset Date Resolution Date Last Treatment Date Treating Clinician Comments HYPERTENSIVE HEART DISEASE WITH HEART FAILURE Active 2024-10 00:00: 00 HEART FAILURE, UNSPECIFIED Active 2024-10 00:00: 00 ATHSCL HEART DISEASE OF [place] CORONARY ARTERY W/O ANG PCTRS Active 2024-10 [...] HISTORY OF FALLING Active 2024-10 00:00: 00 [facility] (CURRENT) USE OF ASPIRIN Active 2024-10 00:00: [...] 5-14 00:00: 00 04-13 08:31 :58 No [id number] DEFICIENCY 1 tablet DAILY 1 tablet DAILY (route: oral) Med Classific ation: Electroly te Balance-N utritiona l Products Adult Aspirin Regimen 81 mg tablet,maik yed release 2024-10 00:00: 00 Yes [id number] BLOOD THINNER 1 tablet DAILY 1 tablet DAILY (route: oral) Med Classific ation: Hematolog ical Agents benzonatate 100 mg capsule 2024-10 00:00: 00 Yes [id number] COUGH 1 capsule NEEDED 1 capsule NEEDED (route: oral) Med Classific ation: Respirato ry Therapy Agents carvedilol 12.5 mg tablet 2024-10 00:00: 00 Yes [id number] HEART 1 tablet DAILY 1 tablet DAILY (route: oral) Med Classific ation: Cardiovas cular Therapy Agents cyclobenzap rine 5 mg tablet 2024-10 00:00: 00 Yes [id number] MUSCLE SPASMS 1 tablet EVERY PM 1 tablet EVERY PM (route: oral) Med Classific ation: Locomotor System Entresto 24 mg-26 mg tablet 2024-10 00:00: 00 Yes [id number] HEART FAILURE 1 tablet 2 TIMES DAILY 1 tablet 2 TIMES DAILY (route: oral) Med Classific ation: Cardiovas cular Therapy Agents hydroxychlo roquine 200 mg tablet 2024-10 00:00: 00 Yes [id number] UNKNOWN 1 tablet DAILY 1 tablet DAILY (route: oral) Med Classific ation: Anti-Infe ctive Agents hyoscyamine 0.125 mg disintegrat ing tablet 2024-10 00:00: 00 Yes [id number] DIARRHEA 1 tablet NEEDED 1 tablet NEEDED (route: oral) Med Classific ation: Gastroint estinal Therapy Agents levothyroxi ne 112 mcg capsule 2024-10 00:00: 00 Yes [id number] NO THYROID 1 capsule DAILY 1 capsule DAILY (route: oral) Med Classific ation: Endocrine ondansetron 4 mg disintegrat ing tablet 2024-10 00:00: 00 Yes [id number] NAUSEA OR VOMITING 1 tablet NEEDED 1 tablet NEEDED (route: oral) Med Classific ation: Gastroint estinal Therapy Agents potassium chloride ER 10 mEq tablet,exte nded release 2024-10 00:00: 00 Yes [id number] DEFICIENCY 1 tablet DAILY 1 tablet DAILY (route: oral) Med Classific ation: Electroly te Balance-N utritiona l Products pravastatin 40 mg tablet 2024-10 00:00: 00 Yes [id number] CHOLESTEROL 1 tablet DAILY 1 tablet DAILY (route: oral) Med Classific ation: Cardiovas cular Therapy Agents spironolact one 25 mg tablet 2024-10 00:00: 00 Yes [id number] FLUID 1 tablet DAILY 1 tablet DAILY (route: oral) Med Classific ation: Cardiovas cular Therapy Agents tamsulosin 0.4 mg capsule 2024-10 00:00: 00 Yes [id number] URINARY 1 mg DAILY 1 mg GIANNA [...] DR.RUDY SEPULVEDA. RN TO OBSERVE AND ASSESS, CATERING CONVENTION SERVICES MANAGER/GINNING OPERATOR TO OBSERVE FOR RISK FOR FALLS AND INSTRUCT IN FALL PREVENTION, HOME SAFETY, MEDICATION MANAGEMENT, INFECTION PREVENTION, AND NUTRITION MANAGEMENT. RN/CATERING CONVENTION SERVICES MANAGER/GINNING OPERATOR NURSE MAY PERFORM O2 SATURATION LEVEL ON ADMISSION AND PRN FOR RN TO ASSESS/CATERING CONVENTION SERVICES MANAGER TO OBSERVE PATIENT, WITH NOTIFICATION TO THE PHYSICIAN IF SATURATION IS 90% IN THE ABSENCE OF MORE SPECIFIC PARAMETERS FROM THE PHYSICIAN. AGENCY MAY PERFORM A RESUMPTION OF CARE VISIT FOLLOWING ANY HOSPITAL ADMISSION. RN/CATERING CONVENTION SERVICES MANAGER/GINNING OPERATOR TO MONITOR CO-MORBID CONDITIONS LISTED ON THE PLAN OF CARE AND ANY NEW CONDITIONS THAT PRESENT THEMSELVES DURING THIS EPISODE TO IDENTIFY CHANGES AND INTERVENE TO MINIMIZE COMPLICATIONS. [code = RN TO OBSERVE, ASSESS, EVALUATE, AND DEVELOP AN INDIVIDUALIZED PLAN OF CARE. AGENCY MAY ACCEPT ORDERS FROM CONSULTING PHYSICIANS , , , DR.MARIA BROWN, DR.RUDY SEPULVEDA. RN TO OBSERVE AND ASSESS, CATERING CONVENTION SERVICES MANAGER/GINNING OPERATOR TO OBSERVE FOR RISK FOR FALLS AND INSTRUCT IN FALL PREVENTION, HOME SAFETY, MEDICATION MANAGEMENT, INFECTION PREVENTION, AND NUTRITION MANAGEMENT. RN/CATERING CONVENTION SERVICES MANAGER/GINNING OPERATOR NURSE MAY PERFORM O2 SATURATION LEVEL ON ADMISSION AND PRN FOR RN TO ASSESS/CATERING CONVENTION SERVICES MANAGER TO OBSERVE PATIENT, WITH NOTIFICATION TO THE PHYSICIAN IF SATURATION IS 90% IN THE ABSENCE OF MORE SPECIFIC PARAMETERS FROM THE PHYSICIAN. AGENCY MAY PERFORM A RESUMPTION OF CARE VISIT FOLLOWING ANY HOSPITAL ADMISSION. RN/CATERING CONVENTION SERVICES MANAGER/GINNING OPERATOR TO MONITOR CO-MORBID CONDITIONS LISTED ON THE PLAN OF CARE AND ANY NEW CONDITIONS THAT PRESENT THEMSELVES DURING THIS EPISODE TO IDENTIFY CHANGES AND INTERVENE TO MINIMIZE COMPLICATIONS.] Future Scheduled Test MEDICATION MANAGEMENT; RN/CATERING CONVENTION SERVICES MANAGER/GINNING OPERATOR TO REVIEW MEDICATIONS FOR INTERACTIONS, EFFECTIVENESS OF DRUG THERAPY, AND SIGNS/SYMPTOMS OF ADVERSE REACTIONS. MAY INSTRUCT AND REINFORCE MEDICATION TEACHING RELATED TO THE USE OF MEDICATIONS, DOSAGE, FREQUENCY, PURPOSE, SIDE EFFECTS, AND TO REPORT COMPLICATIONS. [code = MEDICATION MANAGEMENT; RN/CATERING CONVENTION SERVICES MANAGER/GINNING OPERATOR TO REVIEW MEDICATIONS FOR INTERACTIONS, EFFECTIVENESS OF DRUG THERAPY, AND SIGNS/SYMPTOMS OF ADVERSE REACTIONS. MAY INSTRUCT AND REINFORCE MEDICATION TEACHING RELATED TO THE USE OF MEDICATIONS, DOSAGE, FREQUENCY, PURPOSE, SIDE EFFECTS, AND TO REPORT COMPLICATIONS.] Future Scheduled Test CARDIOVASC ULAR SYSTEM; RN TO ASSESS/TEACH, CATERING CONVENTION SERVICES MANAGER/GINNING OPERATOR TO OBSERVE/TEACH RELATED TO ALTERED CARDIOVASCULAR STATUS TO MINIMIZE COMPLICATIONS AND REDUCE HOSPITALIZATION. [code = CARDIOVASCULAR SYSTEM; RN TO ASSESS/TEACH, CATERING CONVENTION SERVICES MANAGER/GINNING OPERATOR TO OBSERVE/TEACH RELATED TO ALTERED CARDIOVASCULAR STATUS TO MINIMIZE COMPLICATIONS AND REDUCE HOSPITALIZATION.] Future Scheduled Test HEART FAIL URE; RN TO ASSESS/TEACH, CATERING CONVENTION SERVICES MANAGER/GINNING OPERATOR TO OBSERVE/TEACH CARDIOPULMONARY SYSTEM TO IDENTIFY SIGNS [...] [code = HEART FAILURE; RN TO ASSESS/TEACH, CATERING CONVENTION SERVICES MANAGER/GINNING OPERATOR TO OBSERVE/TEACH CARDIOPULMONARY SYSTEM TO IDENTIFY SIGNS [...] ACUTE MYOC ARDIAL INFARCT; RN TO ASSESS/TEACH, CATERING CONVENTION SERVICES MANAGER/GINNING OPERATOR TO OBSERVE/TEACH WARNING SIGNS AND SYMPTOMS TO AVOID HOSPITALIZATION. [code = ACUTE MYOCARDIAL INFARCT; RN TO ASSESS/TEACH, CATERING CONVENTION SERVICES MANAGER/GINNING OPERATOR TO OBSERVE/TEACH WARNING SIGNS AND SYMPTOMS TO AVOID HOSPITALIZATION.] Future Scheduled Test PHYSICAL T HERAPIST TO EVALUATE FOR STRENGTH, GAIT, ENDURANCE,BALANCE [code = PHYSICAL THERAPIST TO EVALUATE FOR STRENGTH, GAIT, ENDURANCE,BALANCE] Future Scheduled Test OCCUPATION AL THERAPIST TO EVALUATE FOR ADLS AND IADLS [code = OCCUPATIONAL THERAPIST TO EVALUATE FOR ADLS AND IADLS] Future Scheduled Test PRN VISITS ; NUMBER OF RN/CATERING CONVENTION SERVICES MANAGER/GINNING OPERATOR VISITS: 2 RN/CATERING CONVENTION SERVICES MANAGER/GINNING OPERATOR TO PERFORM: EVALUATE FOR FLUID OVERLOAD FOR THE FOLLOWING REASONS: RECENT DIAGNOSIS OF CHF [code = PRN VISITS; NUMBER OF RN/CATERING CONVENTION SERVICES MANAGER/GINNING OPERATOR VISITS: 2 RN/CATERING CONVENTION SERVICES MANAGER/GINNING OPERATOR TO PERFORM: EVALUATE FOR FLUID OVERLOAD FOR THE FOLLOWING REASONS: RECENT DIAGNOSIS OF CHF] Future Scheduled Test PAIN MANAG EMENT; RN TO ASSESS AND TEACH, GINNING OPERATOR/CATERING CONVENTION SERVICES MANAGER TO OBSERVE AND TEACH AND PROVIDE EDUCATION ON PAIN MANAGEMENT TECHNIQUES. [code = PAIN MANAGEMENT; RN TO ASSESS AND TEACH, GINNING OPERATOR/CATERING CONVENTION SERVICES MANAGER TO OBSERVE AND TEACH AND PROVIDE EDUCATION [...] AND FUNCTIONAL INDEPENDENCE IN HOME PERSONAL HYGIENE/GROOMING (OT/SEMAPHORE OPERATOR) BATHING/SHOWERING (OT/AMALIA) DRESSING (OT/SEMAPHORE OPERATOR) ACTIVITIES OF DAILY LIVING (OT/AMALIA) TOILET TRANSFER (OT/AMALIA) BATH/SHOWER TRANSFER (OT/SEMAPHORE OPERATOR) THERAPEUTIC EXERCISE (OT/AMALIA) OT/SEMAPHORE OPERATOR MAY EDUCATE ON PAIN MANAGEMENT CLINICALLY INDICATED, [...] (OT/AMALIA) DRESSING (OT/AMALIA) ACTIVITIES OF DAILY LIVING (OT/SEMAPHORE OPERATOR) TOILET TRANSFER (OT/SEMAPHORE OPERATOR) BATH/SHOWER TRANSFER (OT/AMALIA) THERAPEUTIC EXERCISE (OT/SEMAPHORE OPERATOR) OT/SEMAPHORE OPERATOR MAY EDUCATE ON PAIN MANAGEMENT CLINICALLY INDICATED, [...] End Date/Time Encounter Type Admission Type Attending [facility] Care Facility Care Department Encounter ID Discharge Date Discharge Status Discharge Condition Discharge Reason Percent Goals Met 2025-09-07 00:00:00 2025-11-05 00:00:00 Outpatient NICOLE ARREOLA [facility] [id number] 100.00
== END 2025-10-19 23:59 | disposition home or self-care (01) ==
LOC: LAB.DROPOF 08:26
PROVIDERS: PCP Family Medicine; Visit Provider Family Medicine
DX: E87.1 Hypo-osmolality and hyponatremia (principal)
CPT/HCPCS: 36415; 80048